=== PATIENT | male | born 1955 | race Two or more races ===

== ENCOUNTER → 2021-05-13 14:12 | Outpatient (BNVA) | payer MEDICARE, OTHER, SELFPAY | PROVIDERS: PCP Internal Medicine Geriatric Medicine; Referring Provider Internal Medicine Geriatric Medicine; Visit Provider Internal Medicine | DX: Z45.018 Encounter for adjustment and management of other part of cardiac pacemaker (principal); I49.8 Other specified cardiac arrhythmias; I10 Essential (primary) hypertension; E11.8 Type 2 diabetes mellitus with unspecified complications | CPT/HCPCS: 93005; 99202 ==

== ENCOUNTER → 2021-07-09 09:28 | Outpatient (REF) | payer MEDICARE, OTHER, SELFPAY ==
--- NOTE | 2021-07-09 09:31 | CA_ITS ---
Transthoracic Echocardiogram Patient (Last, First, Middle): Matthew Toro L Gender: Male Date of : 1955 Age: 66 Procedure Date: 07/09/2021 Procedure Type: Transthoracic Echocardiogram Location: OP Height: 175.26 cm Weight: 68.95 kg BSA: 1.84 m2 Heart Rate: bpm BP: 132 / 80 mmHg Ceo: LOKESH Mclean MD: Glenn Herman MD Anesthesiology Fellow: Rogelio Leggett MD Symptoms: Z95.0 - Presence of cardiac pacemaker Study Quality: Fair ECG Rhythm: Ventriculary paced rhythm Conclusions: - 1. Moderately dilated left ventricle with moderate to severe LV systolic dysfunction with LVEF of 30-35% with impaired relaxation filling pattern 2. Mild mitral regurgitation 3. Normal RV systolic pressure 4. No gross pericardial effusion Findings Left Ventricle Moderately increased left ventricular cavity size. There is mildly increased left ventricular wall thickness. The left ventricular systolic function is moderate to severely decreased. The visually estimated ejection fraction is between 30-35%. Spectral Doppler is indicative of an impaired relaxation filling pattern. E/E prime ratio is between 8 and 15 consistent with indeterminate filling pressures. Right Ventricle Normal right ventricular cavity size and systolic function. There is a pacemaker wire seen in the right ventricle. Atria The left atrium is normal in size. There is no evidence of interatrial shunt. The right atrium is normal in size. Aortic Valve There is mild calcification of the aortic valve. There is no aortic valve stenosis. There is no aortic valve regurgitation. Mitral Valve There is mild anterior and posterior mitral leaflet thickening. There is mild mitral annular calcification. There is mild mitral valve regurgitation. There is no mitral valve stenosis. Pulmonic Valve The pulmonic valve was not well visualized. Tricuspid Valve Likely normal tricuspid valve structure and function. There is trace tricuspid valve regurgitation. The right ventricular systolic pressure is normal. The right ventricular systolic pressure is 19 mmHg. Normal right atrial pressure. There is no evidence of pulmonary hypertension. Great Vessels All visible segments of the aorta are normal in size. The pulmonary artery was not well visualized. Venous The inferior vena cava is normal in size. Inferior vena cava flow is normal. Pericardium/Pleural There is no evidence of pericardial effusion. Prior Study Comparison No prior study available for comparison. Measurements 2D Linear Measurements IVSd: 1.19 0.6-0.9/0.6-1.0 cm LVIDd: 6.24 3.9-5.3/4.2-5.9 cm LVIDd Index: 3.39 2.4-3.2/2.2-3.1 cm/m2 LVIDs: 5.37 2.0-3.6 cm LVPWd: 1.16 0.7-1.1 cm LA Diam: 3.80 2.7-3.8/3.0-4.0 cm LAIDs Index: 2.07 1.5-2.3 cm/m2 LV Mass: 406.50 67-162/88-224 g LV Mass Index: 220.93 43-95/49-115 g/m2 LVOT Diam: 2.40 3.0+(-)1.3 cm 2D Systolic Function EF 4C: 32.60 >55% EF 2C: 36.40 >55% EF BiP: 34.80 >55% Mitral Valve MV Pk E: 0.61 MV PK A: 1.17 MV Decel Time: 127.00 E/A: 0.50 PHT: 37.00 MVA PHT: 5.95 Decel Banks: 4.83 MR Vol - PW Dopp: 96.04 MR VTI: 1.96 MR ERO: 49.00 MR Alias Bipin: 0.64 MR RAD: 0.80 Aortic Valve AoV Pk Bipin: 1.38 AoV Mn Bipin: 0.94 AoV VTI: 0.28 AoV Pk Grad: 8.00 Aov Mn Grad: 4.00 VÍCTOR Cont.VTI: 2.33 LVOT LVOT Pk Bipin: 0.71 LVOT Mn Bipin: 0.47 LVOT VTI: 0.14 LVOT Pk Grad: 2.00 LVOT Mn Grad: 1.00 LVOT Diam: 2.40 LVOT Area: 4.52 Diastolic Function MV Pk E: 0.61 MV Pk A: 1.17 E/A: 0.50 Right Ventricle TAPSE (mm): 16.70 TVS' Bipin: 8.92 Tricuspid Valve TR Pk Bipin: 1.97 TR Pk Grad: 16.00 RA Press: 3.00 RVSP: 19.00 Great Vessels Aorta Sinus of Valsalva: 3.37 2.0-3.[address] Ridge: 3.00 1.7-3.4 cm Ao Asc: 3.20 2.1-3.4 cm Ao Arch: 3.30 Updated in Other Vendor System with Status of Final Rogelio Leggett MD electronically signed on 07/10/2021 5:12:19 PM with status of Final
== END ==
LOC: HO.CARD 09:28
PROVIDERS: PCP Internal Medicine Geriatric Medicine; Visit Provider Internal Medicine
DX: I10 Essential (primary) hypertension (principal); Z95.0 Presence of cardiac pacemaker
CPT/HCPCS: 93306

== ENCOUNTER → 2021-09-09 12:55 | Outpatient (BNVA) | payer MEDICARE, SELFPAY | PROVIDERS: PCP Internal Medicine Geriatric Medicine; Referring Provider Internal Medicine Geriatric Medicine; Visit Provider Internal Medicine | DX: Z45.018 Encounter for adjustment and management of other part of cardiac pacemaker (principal); I49.8 Other specified cardiac arrhythmias; I42.9 Cardiomyopathy, unspecified; I10 Essential (primary) hypertension; E11.8 Type 2 diabetes mellitus with unspecified complications | CPT/HCPCS: 93280; 99212 ==

== ENCOUNTER 2021-10-02 07:52 | Outpatient (REF) | payer MEDICARE, OTHER, SELFPAY ==
[2021-10-02 08:45] LABS: Hematocrit 40.1 % (42.0-52.0); Hemoglobin 13.9 g/dl (14.0-18.0); Mean Corpuscular HGB Conc 34.7 g/dl (31.0-36.0); Mean Corpuscular Hemoglobin 28.7 pg (27.0-33.0); Mean Corpuscular Volume 82.7 fL (80.0-98.0); Mean Platelet Volume 10.4 fL (9.4-12.4); Platelet Count 183 X10*3/uL (160-400); Red Blood Count 4.85 X10*6/uL (4.60-5.80); Red Cell Distribution Width 12.6 % (11.0-16.0); White Blood Count 4.6 X10*3/uL (4.8-10.8)
[2021-10-02 08:48] LABS: Prothrombin Time 11.2 SEC (10.0-13.1)
[2021-10-02 09:03] LABS: Anion Gap 11 (12-20); Blood Urea Nitrogen 13 mg/dL (9-16); Calcium 9.9 mg/dL (8.4-10.2); Carbon Dioxide 28 mmol/L (22-29); Chloride 105 mmol/L (96-108); Estimated Glomerular Filt Rate > 60; Glucose Random 132 mg/dL (60-115); Potassium 4.3 mmol/L (3.3-5.1); Sodium 140 mmol/L (135-145)
== END 2021-10-02 07:53 | disposition home or self-care (01) ==
LOC: HO.LAB 07:52
PROVIDERS: PCP Internal Medicine Geriatric Medicine; Visit Provider Internal Medicine
DX: I42.9 Cardiomyopathy, unspecified (principal); I25.10 Atherosclerotic heart disease of native coronary artery without angina pectoris
CPT/HCPCS: 36415; 80048; 85027; 85610

== ENCOUNTER → 2021-10-31 12:42 | Outpatient (BNVA) | payer MEDICARE, OTHER, SELFPAY | PROVIDERS: PCP Internal Medicine Geriatric Medicine; Referring Provider Internal Medicine Geriatric Medicine; Visit Provider Internal Medicine | DX: I42.9 Cardiomyopathy, unspecified (principal); I25.10 Atherosclerotic heart disease of native coronary artery without angina pectoris; I49.8 Other specified cardiac arrhythmias; E11.8 Type 2 diabetes mellitus with unspecified complications; I10 Essential (primary) hypertension; Z95.0 Presence of cardiac pacemaker | CPT/HCPCS: 99212 ==

== ENCOUNTER → 2022-02-20 13:38 | Outpatient (BNVA) | payer MEDICARE, SELFPAY | PROVIDERS: PCP Internal Medicine Geriatric Medicine; Referring Provider Internal Medicine Geriatric Medicine; Visit Provider Internal Medicine | DX: I25.10 Atherosclerotic heart disease of native coronary artery without angina pectoris (principal); I42.9 Cardiomyopathy, unspecified; I49.8 Other specified cardiac arrhythmias; E11.8 Type 2 diabetes mellitus with unspecified complications; I10 Essential (primary) hypertension; Z95.0 Presence of cardiac pacemaker | CPT/HCPCS: 99212 ==

== ENCOUNTER → 2022-05-12 13:32 | Outpatient (BNVA) | payer MEDICARE, SELFPAY | PROVIDERS: PCP Internal Medicine Geriatric Medicine; Referring Provider Internal Medicine Geriatric Medicine; Visit Provider Internal Medicine | DX: Z45.018 Encounter for adjustment and management of other part of cardiac pacemaker (principal); I42.9 Cardiomyopathy, unspecified; I25.10 Atherosclerotic heart disease of native coronary artery without angina pectoris; I49.8 Other specified cardiac arrhythmias; I10 Essential (primary) hypertension; E11.8 Type 2 diabetes mellitus with unspecified complications | CPT/HCPCS: 99212 ==

== ENCOUNTER 2022-06-27 09:31 | Outpatient (REF) | payer MEDICARE, SELFPAY ==
[2022-06-27 11:11] LABS: B Type Natriuretic Peptide 332 pg/mL (<100)
[2022-06-27 11:19] LABS: Alanine Aminotransferase 24 U/L (0-40); Albumin Level 4.2 g/dL (3.5-5.0); Alkaline Phosphatase 61 U/L (39-117); Anion Gap 14 (12-20); Aspartate Amino Transferase 19 U/L (5-37); Bilirubin Direct 0.3 mg/dL (0.0-0.5); Blood Urea Nitrogen 13 mg/dL (9-16); Calcium 9.4 mg/dL (8.4-10.2); Carbon Dioxide 26 mmol/L (22-29); Chloride 108 mmol/L (96-108); Cholesterol 154 mg/dL; Estimated Glomerular Filt Rate > 60; Glucose Random 141 mg/dL (60-115); HDL Cholesterol 34 mg/dL; LDL Cholesterol Calculated 104 mg/dl; Potassium 4.6 mmol/L (3.3-5.1); Sodium 143 mmol/L (135-145); Total Protein 6.7 g/dL (6.5-8.0); Triglycerides 84 mg/dL
== END 2022-06-27 09:32 | disposition home or self-care (01) ==
LOC: HO.LAB 09:31
PROVIDERS: PCP Internal Medicine Geriatric Medicine; Visit Provider Internal Medicine
DX: I25.10 Atherosclerotic heart disease of native coronary artery without angina pectoris (principal); I42.9 Cardiomyopathy, unspecified
CPT/HCPCS: 36415; 80048; 80061; 80076; 83880

== ENCOUNTER → 2022-08-05 08:39 | Outpatient (REF) | payer MEDICARE, SELFPAY ==
--- NOTE | 2022-08-05 08:42 | CA_ITS ---
Transthoracic Echocardiogram Patient (Last, First, Middle): Matthew Toro L Gender: Male Date of : 1955 Age: 67 Procedure Date: 08/05/2022 Procedure Type: Transthoracic Echocardiogram Location: OP Height: 177.8 cm Weight: 68.04 kg BSA: 1.85 m2 Heart Rate: bpm BP: 130 / 70 mmHg Corncob Pipes Assembler: SB Referring MD: Glenn Herman MD Cisco Administrator: Rogelio Leggett MD Symptoms: I42.9 - Cardiomyopathy, unspecified Study Quality: Adequate ECG Rhythm: Sinus Conclusions: - 1. Moderately dilated left ventricle with severe LV systolic dysfunction with LVEF of 25-30% with increased filling pressures and regional wall motion is suggestive of possible underlying coronary artery disease 2. Mildly dilated left atrium 3. Moderate to severe mitral regurgitation 4. Normal RV systolic pressure 5. No gross pericardial effusion Findings Left Ventricle Moderately increased left ventricular cavity size. There is mildly increased left ventricular wall thickness. The left ventricular systolic function is severely decreased. Spectral Doppler is indicative of an impaired relaxation filling pattern. Elevated filling pressures. E/E prime ratio is >15, consistent with elevated filling pressures. Wall Motion Rest Echo Findings The anterior wall, entire septum, anterolateral wall, the apex, and apical lateral segments are hypokinetic. The inferior wall and inferolateral wall are akinetic. Right Ventricle Normal right ventricular cavity size and systolic function. There is an ICD wire seen in the right ventricle. Atria The left atrium is mildly dilated. There is no evidence of interatrial shunt. The right atrium is likely dilated. Aortic Valve Normal aortic valve structure and function. There is no aortic valve stenosis. There is no aortic valve regurgitation. Mitral Valve There is mild anterior and posterior mitral leaflet thickening. The posterior mitral leaflet has restricted mobility. There is moderate to severe mitral valve regurgitation. There is no mitral valve stenosis. Pulmonic Valve The pulmonic valve is likely normal. Tricuspid Valve Normal tricuspid valve structure. There is mild tricuspid valve regurgitation. The right ventricular systolic pressure is normal. The right ventricular systolic pressure is 25 mmHg. Normal right atrial pressure. There is no evidence of pulmonary hypertension. Great Vessels All visible segments of the aorta are normal in size. The pulmonary artery was not well visualized. Venous The inferior vena cava is normal in size and collapses greater than 50% with inspiration. Pericardium/Pleural There is no evidence of pericardial effusion. Prior Study Comparison Changes noted compared to prior study dated: 07/09/2021. LV systolic function is marginally reduced. Mitral regurgitation appears to be moderately severe, probably related to restricted leaflet mobility Measurements 2D Linear Measurements IVSd: 1.31 0.6-0.9/0.6-1.0 cm LVIDd: 6.80 3.9-5.3/4.2-5.9 cm LVIDd Index: 3.68 2.4-3.2/2.2-3.1 cm/m2 LVIDs: 6.66 2.0-3.6 cm LVPWd: 1.16 0.7-1.1 cm LA Diam: 4.30 2.7-3.8/3.0-4.0 cm LAIDs Index: 2.32 1.5-2.3 cm/m2 LV Mass: 501.45 67-162/88-224 g LV Mass Index: 271.06 43-95/49-115 g/m2 LVOT Diam: 2.40 3.0+(-)1.3 cm 2D Systolic Function EF 4C: 28.60 >55% EF 2C: 25.30 >55% EF BiP: 27.60 >55% Mitral Valve MV Pk E: 1.18 MV PK A: 1.38 MV Decel Time: 158.00 E/A: 0.90 E'Lateral: 5.87 E'Medial: 4.46 E/E' Med: 26.50 E/E' Lat: 20.10 PHT: 46.00 MVA PHT: 4.78 Decel Sutton: 7.45 MR Vol - PW Dopp: 41.79 MR VTI: 1.99 MR ERO: 21.00 MR Alias Bipin: 0.39 MR RAD: 0.70 Aortic Valve AoV Pk Bipin: 1.14 AoV Mn Bipin: 0.90 AoV VTI: 0.24 AoV Pk Grad: 5.00 Aov Mn Grad: 4.00 VÍCTOR Cont.VTI: 2.56 LVOT LVOT Pk Bipin: 0.71 LVOT Mn Bipin: 0.51 LVOT VTI: 0.14 LVOT Pk Grad: 2.00 LVOT Mn Grad: 1.00 LVOT Diam: 2.40 LVOT Area: 4.52 Diastolic Function MV Pk E: 1.18 MV Pk A: 1.38 E/A: 0.90 E'Medial: 4.46 E/E' Med: 26.50 E' Laterial: 5.87 E/E' Lat: 20.10 Right Ventricle TAPSE (mm): 15.80 TVS' Bipin: 7.90 Tricuspid Valve TR Pk Bipin: 2.35 TR Pk Grad: 22.00 RA Press: 3.00 RVSP: 25.00 Great Vessels Aorta Sinus of Valsalva: 3.10 2.0-3.5 cm Ao Asc: 3.20 2.1-3.4 cm Pulmonary Veins Pulm Vein S/D 0.50 Pulmonary Valve PV Pk Bipin: 0.71 Peak PV Grad: 2.00 Updated in Other Vendor System with Status of Final Rogelio Leggett MD electronically signed on 08/06/2022 4:29:43 PM with status of Final
== END ==
LOC: HO.CARD 08:39
PROVIDERS: PCP Internal Medicine Geriatric Medicine; Visit Provider Internal Medicine
DX: I42.9 Cardiomyopathy, unspecified (principal)
CPT/HCPCS: 93306

== ENCOUNTER → 2022-08-21 08:39 | Outpatient (BNVA) | payer MEDICARE, SELFPAY | PROVIDERS: PCP Internal Medicine Geriatric Medicine; Referring Provider Internal Medicine Geriatric Medicine; Visit Provider Internal Medicine | DX: I42.9 Cardiomyopathy, unspecified (principal); I25.10 Atherosclerotic heart disease of native coronary artery without angina pectoris; I34.0 Nonrheumatic mitral (valve) insufficiency; I49.8 Other specified cardiac arrhythmias; E11.8 Type 2 diabetes mellitus with unspecified complications; I10 Essential (primary) hypertension; Z79.82 Long term (current) use of aspirin; Z79.899 Other long term (current) drug therapy; Z79.84 Long term (current) use of oral hypoglycemic drugs | CPT/HCPCS: 93005; 99212 ==

== ENCOUNTER 2023-11-06 09:33 | Outpatient (REF) | payer MEDICARE, SELFPAY ==
[2023-11-06 10:03] LABS: MANUAL DIFF FLAG NO
[2023-11-06 11:05] LABS: Basophils Percent Auto 0.5 % (0-2); Eosinophils Absolute Auto 0.1 X10*3/uL (0.0-0.4); Eosinophils Percent Auto 2.1 % (0-4); Hematocrit 38.5 % (42.0-52.0); Hemoglobin 13.1 g/dl (14.0-18.0); Imm Gran Abs Auto 0.04 X10*3/uL (0.00-0.03); Imm Gran Pct Auto 0.9 % (0.0-0.4); Lymphocytes Absolute Auto 0.8 X10*3/uL (1.2-4.9); Lymphocytes Percent Auto 17.8 % (20-40); Mean Corpuscular Hemoglobin 29.6 pg (27.0-33.0); Mean Corpuscular Volume 86.9 fL (80.0-98.0); Monocytes Absolute Auto 0.6 X10*3/uL (0.1-1.2); Monocytes Percent Auto 12.8 % (2-11); Neutrophils Absolute Auto 2.9 x10*3/uL (2.0-8.3); Neutrophils Percent Auto 65.9 % (45-73); Red Blood Count 4.43 X10*6/uL (4.60-5.80); White Blood Count 4.4 X10*3/uL (4.8-10.8)
[2023-11-06 11:06] LABS: INTERNATIONAL NORM RATIO 1.2 (0.9-1.1)
[2023-11-06 11:08] LABS: Partial Thromboplastin Time 29.2 SEC (26.0-36.8)
[2023-11-06 11:27] LABS: Estimated Average Glucose 177 mg/dL; Hemoglobin A1c % 7.8 % (<6.0)
[2023-11-06 11:28] LABS: Mean Platelet Volume 10.8 fL (9.4-12.4); Platelet Count 134 X10*3/uL (160-400)
[2023-11-06 12:01] LABS: Alanine Aminotransferase 75 U/L (0-40); Albumin Level 3.9 g/dL (3.5-5.0); Alkaline Phosphatase 99 U/L (39-117); Anion Gap 12 (12-20); Aspartate Amino Transferase 59 U/L (5-37); Bilirubin Total 0.9 mg/dL (0.0-1.0); Blood Urea Nitrogen 19 mg/dL (9-16); Calcium 9.9 mg/dL (8.4-10.2); Carbon Dioxide 29 mmol/L (22-29); Chloride 107 mmol/L (96-108); Estimated Glomerular Filt Rate 59; Glucose Random 131 mg/dL (60-115); Iron 66 mcg/dL (45-160); Percent Iron Saturation 21 % (15-50); Potassium 3.9 mmol/L (3.3-5.1); Sodium 144 mmol/L (135-145); Total Iron Binding Capacity 317 mcg/dL (228-428); Total Protein 6.7 g/dL (6.5-8.0); Unsaturated Iron Binding 251 ug/dL
[2023-11-06 12:07] LABS: Ferritin 53 ng/mL (20-250); Thyroid Stimulating Hormone 4.42 uIU/mL (0.32-4.0)
== END 2023-11-06 09:34 | disposition home or self-care (01) ==
LOC: HO.LAB 09:33
PROVIDERS: PCP Internal Medicine Geriatric Medicine; Visit Provider Emergency Medicine
DX: I50.22 Chronic systolic (congestive) heart failure (principal); Z13.1 Encounter for screening for diabetes mellitus
CPT/HCPCS: 36415; 80053; 82728; 83036; 83540; 84443; 85025; 85610; 85730

== ENCOUNTER 2023-11-09 14:46 | Outpatient (AMB) | payer MEDICARE, SELFPAY ==
[2023-11-09 15:21] VITALS: BP 90/54; PULSE 60; BMI 20.3
--- NOTE | 2023-11-09 15:21 | A.OFFVIS_ITS ---
Vital Signs 11/09/23 15:21 Height 5 ft 7 in Weight 129 lb 10.109 oz BMI 20.3 BP 90/54 L Blood Pressure Location Lt brachial Position Sitting Pulse 60 Intake Visit Reasons: 1 year fu/ severe cmp/ card arrest SC- defib /Name Tinner Automatic Required: Yes Tinner Automatic Name: Fernando [id number] Accompanied by: Spouse Allergies No Known Allergies [No Known Allergies*] Allergy (Verified 08/21/22 08:44) Medication List - Last Reconciled 11/09/23 by Glenn Herman MD amiodarone 400 mg PO Q24H apixaban (Eliquis) 5 mg PO BID aspirin 81 mg PO DAILY atorvastatin 80 mg PO QPM blood sugar diagnostic (FreeStyle Lite Strips) As directed empagliflozin (Jardiance) 10 mg PO QAM ezetimibe (Zetia) 10 mg PO DAILY insulin glargine 6 units subcut DAILY insulin lispro (Admelog U-100 Insulin lispro) 6 units subcut BID lancets (TRUEplus Lancets) As directed metoprolol succinate ER (Toprol XL) 25 mg PO DAILY mexiletine 150 mg PO Q12H spironolactone 12.5 mg PO DAILY torsemide 20 mg PO DAILY HPI Comments Details: Matthew returns for follow-up after quite some time. To recall, he used to live in [place] where he developed heart block and underwent permanent pacemaker implantation. Then he moved here for some time. At that time, echocardiogram had shown significant LV dysfunction and diagnostic catheterization showed LAD disease but not requiring interventions. Then we upgraded the dual-chamber device to Bi V pacer. He was doing well and walking more than 2 miles a day with no issues. After that, it seems he went back to [facility] and based on the notes he has had a fairly complicated set of issues. I have summarized them briefly- He apparently had PEA arrest in September of 2022 and underwent tracheostomy and ultimately transferred to LTAC. He had severe heart failure with reduced ejection fraction as well as severe mitral regurgitation. Underwent mitral clip in 05/2023. It seems that the mitral regurgitation severity was reduced from severe to mild. After that, it seems as though he was followed up at the advanced heart failure Clinic in [place], [place] where he was recommended to undergo advanced therapies including evaluation for LVAD as well as transplant. From arrhythmia standpoint, atrial fibrillation/flutter for which underwent cardioversion May of 2023. Other issues include upgrade of FORESTRY ENGINEER P to FORESTRY ENGINEER D. From the arrhythmia standpoint, ventricular tachycardia for which she has been given a combination of amiodarone, mexiletine and metoprolol. 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 Since returned back to [place], states that patient is still not feeling great. He gets tired frequently. He can walk only short distances without getting symptoms like shortness of breath or feeling exhausted. No clear chest pains. Most recently, it seems he was hospitalized again at [facility] with syncope. At that time, diagnosed ventricular tachycardia and AICD firing. It seems the increased amiodarone dose to 400 mg daily and recommended continuing mexiletine and metoprolol. Patient states that he would like to consolidate his care rather in [place] and asking for referral there. [facility] Medical History (Updated 11/09/23 @ 16:35 by Glenn Herman MD) Diabetes Pacemaker Surgical History History of cardiac catheterization (~10/2021) History of cataract surgery Family History Father Diabetes Heart problem Brother Heart attack Social History Alcohol intake: never Patient Tobacco Use Status: Never used Tobacco Review of Systems Const Denies chills, Denies fatigue, Denies fever(s), Denies weight gain and Denies weight loss ENT Denies dizziness Card Denies chest pain, Denies leg edema, Denies lightheadedness, Denies palpitations, Reports dyspnea on exertion, Denies orthopnea and Denies other Resp Denies cough and Reports dyspnea on exertion GI Denies hematochezia and Denies change in stool character Musc Denies abnormal gait, Denies muscle weakness, Denies numbness, Denies radiating pain into limb and Denies tingling Neuro Denies abnormal gait, Denies dizziness, Denies numbness and Denies tingling Endo Denies fatigue and Denies palpitations Physical Exam Vital Signs: Last Vital Signs Pulse 60 11/09/23 15:21 BP 90/54 L 11/09/23 15:21 BMI result Body Mass Index 20.3 Const General: comfortable and no acute distress Orientation/consciousness: patient oriented x3 HEENT Other: Unremarkable Head: Yes normal to inspection Neck Neck: Yes normal visual inspection Chest Chest palpation & inspection: normal inspection of the chest Resp Auscultation: clear to auscultation bilaterally Cardio Palpation: normal PMI Heart sounds: S1 normal heart sound present, S2 normal heart sound present, no gallops, Murmur heart sound present systolic III/ and at the apex and no rubs GI Palpation (GI): Soft to palpation Back/Spine/Pelvis Other: unremarkable Skin General skin exam: no rashes or lesions noted Neuro General: patient oriented x3 Extrem General: Yes normal to inspection Psych Mental Status: mental status grossly normal Office Procedures Cardiac Device Check Cardiac Device Check Details: ICD interrogated today. FORESTRY ENGINEER D device. Battery status more than 4 years. Normal lead parameters. Atrial pacing 98%. Biventricular pacing > 99%. No atrial arrhythmias. No recent shocks or therapies. It appears that he did have ventricular tachycardia on October 19. Overall, normal device function. 51749-[id number] Cardiac Device Check, multi lead implantable defibrillator Procedure code (CPT) selection complete EKG Details: EKG with underlying atrial sensed, ventricular paced rhythm at 60/Min. Corrected QT is 566 milliseconds but QRS is also wide because of paced rhythm. Hence suspect the actual corrected QT is shorter. [id number], Complete Assessment & Plan Assessment & Plan (1) Cardiomyopathy: Code(s): I42.9 - Cardiomyopathy, unspecified Category: Medical Plan: Per echocardiogram from [place], 06/24/2023, LVEF less than 20%. Severely dilated LV. Moderate mitral regurgitation status post mitral clip. Moderate tricuspid regurgitation and mild pulmonary hypertension. It seems that he does still have ongoing heart failure symptoms although clinically does not appear overtly volume overloaded. For meds, he is only on metoprolol and spironolactone. Not on Entresto but his blood pressure is already quite low. On Jardiance. For diuretics, discharge summary list torsemide 20 mg daily but not in the current list. Will call pharmacy. It seems that he was recommended to undergo evaluation for advanced therapies including LVAD and transplant and they would like to go to [place] and hence we will refer. In terms of other workup, left heart catheterization 2022 showed [id number] nonobstructive disease. Not make any further changes today as I believe we need to consolidate his care locally 1st before making too many changes. (2) Atherosclerotic cardiovascular disease: Code(s): I25.10 - Atherosclerotic heart disease of [place] coronary artery without angina pectoris Category: Medical Plan: Per available data, [id number] nonobstructive disease from cardiac catheterization [place] 2022. No specific management apart from statins. (3) Nonrheumatic mitral valve regurgitation: Code(s): I34.0 - Nonrheumatic mitral (valve) insufficiency Category: Medical Plan: Status post mitral clip. We will check echocardiogram. (4) Paroxysmal atrial fibrillation: Code(s): I48.0 - Paroxysmal atrial fibrillation Category: Medical Plan: Status post cardioversion. On amiodarone. Anticoagulation. Will need to check with pharmacy as meds are not clearly reconciled. (5) Ventricular tachycardia: Code(s): I47.20 - Ventricular tachycardia, unspecified Category: Medical Plan: Per notes from [place], patient had VT which was refractory to ATP x3, received ICD shock x1, degenerated into VF, 2nd ICD shock successfully terminating the arrhythmia and also converting him out of AFib. It appears there was 1 further episode of VT for which she was hospitalized last month at [facility]. Most recently, amiodarone dose has been increased at [facility] from 200 mg to 400 mg. He is also on mexiletine and metoprolol. Requires EP referral. Plan Referred to [facility]-advanced heart failure team as well as EP. Total time spent including review of all the available records from [place], counseling, documentation, coordination of care-90 minutes. Orders: Orders CA echo transthoracic complete Today I34.0 - Nonrheumatic mitral (valve) insufficiency Coding Level of Care Code Est Pt Level 5 (23257) Diagnoses Cardiomyopathy I42.9 Atherosclerotic cardiovascular disease I25.10 Nonrheumatic mitral valve regurgitation I34.0 Paroxysmal atrial fibrillation I48.0 Ventricular tachycardia I47.20 CPT Codes Cardiac Device Check - Cardiac Device 6: [id number] Cardiac Device Check, multi lead implantable defibrillator ([id number]) EKG - CPT: 79325-[id number], Complete ([id number])
== END 2023-11-09 16:16 | disposition home or self-care (01) ==
PROVIDERS: PCP Internal Medicine Geriatric Medicine; Referring Provider Internal Medicine Geriatric Medicine; Visit Provider Internal Medicine
DX: I42.9 Cardiomyopathy, unspecified (principal); I25.10 Atherosclerotic heart disease of native coronary artery without angina pectoris; I34.0 Nonrheumatic mitral (valve) insufficiency; I48.0 Paroxysmal atrial fibrillation; I47.20 Ventricular tachycardia, unspecified; Z95.810 Presence of automatic (implantable) cardiac defibrillator
CPT/HCPCS: 93284; 99215

== ENCOUNTER → 2023-11-09 14:46 | Outpatient (BNVA) | payer MEDICARE, SELFPAY | PROVIDERS: PCP Internal Medicine Geriatric Medicine; Visit Provider Internal Medicine | DX: I42.9 Cardiomyopathy, unspecified (principal); I25.10 Atherosclerotic heart disease of native coronary artery without angina pectoris; I34.0 Nonrheumatic mitral (valve) insufficiency; I48.0 Paroxysmal atrial fibrillation; I47.20 Ventricular tachycardia, unspecified; Z45.02 Encounter for adjustment and management of automatic implantable cardiac defibrillator | CPT/HCPCS: 99212 ==

== ENCOUNTER 2023-11-17 10:49 | Outpatient (REF) | payer MEDICARE, SELFPAY ==
[2023-11-17 14:24] LABS: Alanine Aminotransferase 147 U/L (0-40); Alkaline Phosphatase 142 U/L (39-117); Anion Gap 13 (12-20); Aspartate Amino Transferase 59 U/L (5-37); Bilirubin Total 1.1 mg/dL (0.0-1.0); Blood Urea Nitrogen 13 mg/dL (9-16); Calcium 9.9 mg/dL (8.4-10.2); Carbon Dioxide 28 mmol/L (22-29); Chloride 108 mmol/L (96-108); Estimated Glomerular Filt Rate 47; Glucose Random 152 mg/dL (60-115); Magnesium 2.3 mg/dL (1.6-2.6); Potassium 4.8 mmol/L (3.3-5.1); Sodium 144 mmol/L (135-145); TSH reflex Free T4 4.84 uIU/mL (0.32-4.0); Total Protein 7.1 g/dL (6.5-8.0)
[2023-11-17 17:58] LABS: Free T4 (Free Thyroxine) 1.08 ng/dL (0.71-1.85)
== END 2023-11-17 10:50 | disposition home or self-care (01) ==
LOC: HO.LAB 10:49
PROVIDERS: PCP Internal Medicine Geriatric Medicine; Visit Provider Internal Medicine Geriatric Medicine
DX: E11.59 Type 2 diabetes mellitus with other circulatory complications (principal); I42.9 Cardiomyopathy, unspecified; Z86.79 Personal history of other diseases of the circulatory system; Z79.899 Other long term (current) drug therapy
CPT/HCPCS: 36415; 80053; 83735; 84439; 84443

== ENCOUNTER 2024-02-24 14:57 | Outpatient (AMB) | payer MEDICARE, SELFPAY ==
--- NOTE | 2024-02-24 15:18 | A.OFFVIS_ITS ---
Vital Signs 02/24/24 15:25 Height 5 ft 7 in Weight 125 lb 10.616 oz BMI 19.7 BP 116/78 Blood Pressure Location Rt brachial Position Sitting Pulse 99 Pulse Source Pulse Oximeter Intake Visit Reasons: T2DM Intake Note: NEW Patient presents today to establish treatment for Type 2 Diabetes Mellitus: Last Diabetic eye exam was on: DUE Last Podiatry exam was on: Does not see a System Archive Analyst Most recent HbA1c: 6.4%, 02/24/2024 Random Glucose- 433 mg/dL, Today Rollout Manager Required: No Accompanied by: Self / Same As Patient Allergies No Known Allergies [No Known Allergies*] Allergy (Verified 02/24/24 15:19) HPI Comments Details: 68-year-old male presenting for diabetic consultation Medical history: 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 On prednisone taper-currently 15mg daily PCP: Yoandy Tillman MD Diagnosed Current medications: admelog, glargine Glucometer: One touch Seen by PCP 02/05/2024. He is currently on 09/16/11 admelog and glargine 25 units. A1C is 6.4%. His glucose monitor was reviewed today and revealed card lacer hypoglycemia until 02/14/2024 after which he has not had any episodes. He is checking 3-4 times per day. average blood glucose is 140. Since 02/13 range is 76-330 Eye exam-due. requests referral Podiatry-does not see ROS CONSTITUTIONAL: Denies weight loss, fever and chills. HEENT: Denies changes in vision and hearing. RESPIRATORY: Denies SOB and cough. CV: Denies palpitations and CP GI: Denies abdominal pain, nausea, vomiting and diarrhea. : Denies dysuria and urinary frequency. MSK: Denies new myalgia and joint pain. SKIN: Denies rash and pruritus. NEUROLOGICAL: Denies headache PSYCHIATRIC: Denies recent changes in mood. PHYSICAL EXAM: GENERAL: Alert and oriented x 3. NAD EYES: EOMI. Anicteric. HENT: Moist mucous membranes. No scleral icterus. No cervical lymphadenopathy. LUNGS: Clear to auscultation bilaterally. CARDIOVASCULAR: Regular rate and rhythm. No murmur. No JVD. ABDOMEN: Soft, non-tender +bs EXTREMITIES: No edema. Non-tender. SKIN: No rashes or lesions. Warm. NEUROLOGIC: No focal neurological deficits. CN II-XII grossly intact PSYCHIATRIC: Cooperative. Appropriate mood and affect [facility] Medical History Diabetes Pacemaker Surgical History Hx of heart transplant History of cardiac catheterization (~10/2021) History of cataract surgery Family History Father Diabetes Heart problem Brother Heart attack Social History Alcohol intake: never Patient Tobacco Use Status: Never used Tobacco Physical Exam Vital Signs: Last Vital Signs Pulse 99 02/24/24 15:25 BP 116/78 02/24/24 15:25 BMI result Body Mass Index 19.7 Results AMB Hemoglobin A1c AMB Hemoglobin A1c 6.4 % Last Edit by TOMMIE Silverman on 02/24/24 15:52 Results Reviewed Results Reviewed: Laboratory Last Values Glucose (Clinic) 433 mg/dL (60-115) H* 02/24/24 15:36 Hgb A1c (Clinic) 6.4 % (4.0-6.0) H 02/24/24 15:21 Assessment & Plan Assessment & Plan (1) Type 2 diabetes mellitus with unspecified complications: Code(s): E11.8 - Type 2 diabetes mellitus with unspecified complications Category: Medical Plan: Controlled on current medication. Decrease supper admelog to 9 units. Continue current glargine dose. 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
[2024-02-24 15:25] VITALS: BP 116/78; PULSE 99; BMI 19.7
[2024-02-24 15:41] LABS: Glucose, Whole Blood 433 mg/dL (60-115)
== END 2024-02-24 16:02 | disposition home or self-care (01) ==
PROVIDERS: PCP Internal Medicine Geriatric Medicine; Visit Provider Internal Medicine
DX: E11.59 Type 2 diabetes mellitus with other circulatory complications (principal); D86.85 Sarcoid myocarditis

== ENCOUNTER → 2024-02-24 14:57 | Outpatient (BNVA) | payer MEDICARE, SELFPAY | PROVIDERS: PCP Internal Medicine Geriatric Medicine; Visit Provider Internal Medicine | DX: E11.9 Type 2 diabetes mellitus without complications (principal); I42.9 Cardiomyopathy, unspecified; D86.85 Sarcoid myocarditis | CPT/HCPCS: 82947; 83036; 99212 ==

== ENCOUNTER 2024-04-14 11:02 | Outpatient (REF) | payer MEDICARE, BC, SELFPAY ==
--- OUTSIDE RECORDS SUMMARY | 2024-04-14 11:42 | XMS_ITS | Clinical Summary ---
Author Organization Unknown Care Team Providers Care Machine Operator Farmworker Name Role Phone DIANA LUGO, FERMIN Unavailable Unavailable SAMUEL RN, CRISTY Unavailable Unavaildonald TABARES PLASTER TENDER, JYOTI Unavailable Unavailable UMA OT, DINO Unavailable Unavailable UMA FERMENTOLOGIST, PARDEEP Unavailable Unavailable MARSHA GILLETTE/HAMM, ALYCIA Unavailable Unavailab fredis COLE PT, KEYANNA Unavailable Unavailable Payers Payer Name Policy Type Policy Number Effective Date Expira tion Date [id number].[facility]AUTH [id number] Problems Condition Name Condition Details Condition Category Status Onset Date Resolution Date Last Treatment Date Treating Clinician Comments PNEUMONIA DUE TO OTHER STREPTOCOCCI Active 2022-04 00:00: 00 NON-ST ELEVATION (NSTEMI) MYOCARDIAL INFARCTION Active 2022-04 00:00: 00 HYPERTENSIVE HEART DISEASE WITH HEART FAILURE Active 2022-04 00:00: 00 CHRONIC COMBINED SYSTOLIC AND DIASTOLIC HRT FAIL Active 2022-04 00:00: 00 TYPE 2 DIABETES MELLITUS WITH HYPERGLYCEMI A Active 2022-04 00:00: 00 URINARY TRACT INFECTION, SITE NOT SPECIFIED Active 2022-04 00:00: 00 KLEBSIELLA PNEUMONIAE THE CAUSE OF DISEASES CLASSD ELSWHR Active 2022-04 00:00: 00 ATHSCL HEART DISEASE OF [place] CORONARY ARTERY W/O ANG PCTRS Active 2022-04 00:00: 00 UNSP DEMENTIA, UNSP SEVERITY, WITHOUT BEH/PSYCH/MO OD/ANX Active 04-06 00:00: 00 VENTRICULAR TACHYCARDIA, UNSPECIFIED Active 04-06 00:00: 00 UNSPECIFIED ATRIAL FLUTTER Active 2022-04 00:00: 00 OTHER SPECIFIED DISEASES OF UPPER RESPIRATORY TRACT Active 04-06 00:00: 00 DYSPHAGIA, OROPHARYNGEA L PHASE Active 2022-04 00:00: 00 HYPERLIPIDEM IA, UNSPECIFIED Active 04-06 00:00: 00 CORRECTION (CURRENT) USE OF INSULIN Active 04-06 00:00: 00 PRESENCE OF AUTOMATIC (IMPLANTABLE ) CARDIAC DEFIBRILLATO R Active 04-06 00:00: 00 CORRECTION (CURRENT) USE OF ANTICOAGULAN TS Active 04-06 00:00: 00 NOC ENGINEER (CURRENT) USE OF ORAL HYPOGLYCEMIC DRUGS Active 04-06 00:00: 00 Allergies, Adverse Reactions, Alerts Allergy Name Allergy Type Status Severity Reaction(s) Onset Date Inactive Date Treating Clinician Comments NO KNOWN ALLERGIES Propensity to adverse reactions Active 2022-04 11:17: 27 Medications Ordered Medication Name Filled Medication Name Start Date Stop Date Current Medication? Ordering Clinician Indication Dosage Frequency Signature (SIG) Comments Components cefdinir 300 mg capsule 2022-04 00:00: 00 Yes [id number] . 300 mg 2 TIMES DAILY 300 mg 2 TIMES DAILY (route: oral) Med Classific ation: Anti-Infe ctive Agents metoprolol succinate ER 50 mg tablet,exte nded release 24 hr 2022-04 00:00: 00 Yes [id number] . 25 mg BEDTIME 25 mg BEDTIME (route: oral) Med Classific ation: Cardiovas cular Therapy Agents spironolact one 25 mg tablet 2022-04 00:00: 00 Yes [id number] . 1 tablet ONCE DAILY 1 tablet ONCE DAILY (route: oral) Med Classific ation: Cardiovas cular Therapy Agents torsemide 20 mg tablet 2022-04 00:00: 00 Yes [id number] . 20 mg ONCE DAILY 20 mg ON CE DAILY (route: oral) Med Classific ation: Cardiovas cular Therapy Agents furosemide 40 mg tablet 2022-04 00:00: 00 02-08 00:00 :00 No [id number] Per instruc tions Per instructio ns (route: oral) Med Classific ation: Cardiovas cular Therapy Agents Semglee (insulin glargine-yf gn) 100 unit/mL subcutaneou s solution 2022-04 016 00:00: 00 02-08 00:00 :00 No [id number] Per instruc tions Per instructio ns (route: [facility]) Med Classific ation: Endocrine atorvastati n 40 mg tablet 2022-04 00:00: 00 Yes [id number] , 1 tablet BEDTIME 1 tablet BEDTIME (route: oral) Med Classific ation: Cardiovas cular Therapy Agents Eliquis 5 mg tablet 2022-04 00:00: 00 Yes [id number] . Per instruc tions TWICE DAILY Per instructio ns TWICE DAILY (route: oral) Med Classific ation: Hematolog ical Agents Jardiance 10 mg tablet 2022-04 00:00: 00 Yes [id number] . 10 mg ONCE DAILY 10 mg ON CE DAILY (route: oral) Med Classific ation: Endocrine losartan 25 mg tablet 2022-04 00:00: 00 Yes [id number] . Per instruc tions ONCE DAILY Per instructio ns ONCE DAILY (route: oral) Med Classific ation: Cardiovas cular Therapy Agents metoprolol succinate ER 25 mg tablet,exte nded release 24 hr 2022-04 00:00: 00 02-08 00:00 :00 No [id number] Per instruc tions ONCE DAILY Per instructio ns ONCE DAILY (route: oral) Med Classific ation: Cardiovas cular Therapy Agents aspirin 81 mg chewable tablet 2022-04 00:00: 00 Yes [id number] . 1 tablet DAILY 1 tablet DAILY (route: oral) Med Classific ation: Hematolog ical Agents insulin glargine (U-100) 100 unit/mL subcutaneou s solution 2022-04 00:00: 00 Yes [id number] . 8 unit BEFORE DINNER 8 unit BEFORE DINNER (route: [facility]) Med Classific ation: Endocrine mexiletine 150 mg capsule 2022-04 00:00: 00 Yes [id number] . 1 capsule 3 TIMES DAILY 1 capsule 3 TIMES DAILY (route: oral) Med Classific ation: Cardiovas cular Therapy Agents Mucinex 600 mg tablet, extended release 2022-04 00:00: 00 Yes [id number] . 1 tablet 2 TIMES DAILY 1 tablet 2 TIMES DAILY (route: oral) Med Classific ation: Respirato ry Therapy Agents Vital Signs Vital Name Observation Time Observation Value Commen ts Temperature 2023-02-08 11:01:00.000 98 [degF] BMI (%) 2023-02-08 10:50:00.000 15 kg/m2 Height 2023-02-08 10:49:47.000 71 [in_us] Pulse 2023-02-08 11:01:00.000 80 /min O2 Saturation (%) 2023-02-08 11:01:00.000 95 % Respirations 2023-02-08 11:01:00.000 18 /min Weight (lbs) 2023-02-08 10:50:00.000 111 [lb_av] Systolic Blood Pressure 2023-02-08 11:01:00.000 125 mm [Hg] Diastolic Blood Pressure 2023-02-08 11:01:00.000 77 mm [Hg] Plan of Treatment Planned Activity Planned Date Details Comments Future Scheduled Test RN TO OBSE RVE, ASSESS, EVALUATE, AND DEVELOP AN INDIVIDUALIZED PLAN OF CARE. AGENCY MAY ACCEPT ORDERS FROM CONSULTING PHYSICIANS RN TO OBSERVE AND ASSESS, PLASTER TENDER TO OBSERVE FOR RISK FOR FALLS AND INSTRUCT IN FALL PREVENTION, HOME SAFETY, MEDICATION MANAGEMENT, INFECTION PREVENTION, AND NUTRITION MANAGEMENT. SN MAY PERFORM O2 SATURATION LEVEL ON ADMISSION AND PRN FOR SOB TO ASSESS PATIENT, WITH NOTIFICATION TO THE PHYSICIAN IF SATURATION IS 90% IN THE ABSENCE OF MORE SPECIFIC PARAMETERS FROM THE PHYSICIAN. AGENCY MAY PERFORM A RESUMPTION OF CARE VISIT FOLLOWING ANY HOSPITAL ADMISSION. SKILLED NURSE TO MONITOR CO-MORBID CONDITIONS LISTED ON THE PLAN OF CARE AND ANY NEW CONDITIONS THAT PRESENT THEMSELVES DURING THIS EPISODE TO IDENTIFY CHANGES AND INTERVENE TO MINIMIZE COMPLICATIONS. [code = RN TO OBSERVE, ASSESS, EVALUATE, AND DEVELOP AN INDIVIDUALIZED PLAN OF CARE. AGENCY MAY ACCEPT ORDERS FROM CONSULTING PHYSICIANS RN TO OBSERVE AND ASSESS, PLASTER TENDER TO OBSERVE FOR RISK FOR FALLS AND INSTRUCT IN FALL PREVENTION, HOME SAFETY, MEDICATION MANAGEMENT, INFECTION PREVENTION, AND NUTRITION MANAGEMENT. SN MAY PERFORM O2 SATURATION LEVEL ON ADMISSION AND PRN FOR SOB TO ASSESS PATIENT, WITH NOTIFICATION TO THE PHYSICIAN IF SATURATION IS 90% IN THE ABSENCE OF MORE SPECIFIC PARAMETERS FROM THE PHYSICIAN. AGENCY MAY PERFORM A RESUMPTION OF CARE VISIT FOLLOWING ANY HOSPITAL ADMISSION. SKILLED NURSE TO MONITOR CO-MORBID CONDITIONS LISTED ON THE PLAN OF CARE AND ANY NEW CONDITIONS THAT PRESENT THEMSELVES DURING THIS EPISODE TO IDENTIFY CHANGES AND INTERVENE TO MINIMIZE COMPLICATIONS.] Future Scheduled Test MEDICATION MANAGEMENT; SKILLED NURSE TO REVIEW MEDICATIONS FOR INTERACTIONS, EFFECTIVENESS OF DRUG THERAPY, AND SIGNS/SYMPTOMS OF ADVERSE REACTIONS. MAY INSTRUCT AND REINFORCE MEDICATION TEACHING RELATED TO THE USE OF MEDICATIONS, DOSAGE, FREQUENCY, PURPOSE, SIDE EFFECTS, AND TO REPORT COMPLICATIONS. [code = MEDICATION MANAGEMENT; SKILLED NURSE TO REVIEW MEDICATIONS FOR INTERACTIONS, EFFECTIVENESS OF DRUG THERAPY, AND SIGNS/SYMPTOMS OF ADVERSE REACTIONS. MAY INSTRUCT AND REINFORCE MEDICATION TEACHING RELATED TO THE USE OF MEDICATIONS, DOSAGE, FREQUENCY, PURPOSE, SIDE EFFECTS, AND TO REPORT COMPLICATIONS. ] Future Scheduled Test RISK FOR H OSPITALIZATION; SKILLED NURSE TO INSTRUCT PATIENT/CAREGIVER ON RISK FOR HOSPITALIZATION/EMERGENCY ROOM VISITS, TEACH SIGNS AND SYMPTOMS THAT PUT PATIENT AT RISK, WHEN TO NOTIFY NURSE/PHYSICIAN OF COMPLICATIONS/DECLINE, AND WHEN TO CALL 911. [code = RISK FOR HOSPITALIZATION; SKILLED NURSE TO INSTRUCT PATIENT/CAREGIVER ON RISK FOR HOSPITALIZATION/EMERGENCY ROOM VISITS, TEACH SIGNS AND SYMPTOMS THAT PUT PATIENT AT RISK, WHEN TO NOTIFY NURSE/PHYSICIAN OF COMPLICATIONS/DECLINE, AND WHEN TO CALL 911.] Future Scheduled Test CARDIOVASC ULAR SYSTEM; SKILLED NURSE TO ASSESS AND TEACH RELATED TO ALTERED CARDIOVASCULAR STATUS TO MINIMIZE COMPLICATIONS AND REDUCE HOSPITALIZATION. [code = CARDIOVASCULAR SYSTEM; SKILLED NURSE TO ASSESS AND TEACH RELATED TO ALTERED CARDIOVASCULAR STATUS TO MINIMIZE COMPLICATIONS AND REDUCE HOSPITALIZATION.] Future Scheduled Test HEART FAIL URE; SKILLED NURSE TO ASSESS CARDIOPULMONARY SYSTEM TO IDENTIFY SIGNS OF DECOMPENSATION AND INTERVENE TO MINIMIZE THE SEVERITY OF FLUID OVERLOAD. ASSESS PATIENT ABILITY TO MONITOR AND RECORD DAILY WEIGHTS AND VITAL SIGNS, INCLUDING PULSE AND BLOOD PRESSURE; RECORD PATIENT REPORTED WEIGHT, OR WEIGH PATIENT NEEDED. REPORT INCREASED EDEMA OR WEIGHT GAIN OF >2 LBS IN 1 DAY OR >5 LBS IN 1 WEEK OR 5LBS OR MORE OVER TARGET WEIGHT. MAY MEASURE ABDOMINAL GIRTH IF UNABLE TO WEIGH. SCALES AND BP MONITOR TO BE PROVIDED IF NEEDED. [code = HEART FAILURE; SKILLED NURSE TO ASSESS CARDIOPULMONARY SYSTEM TO IDENTIFY SIGNS OF DECOMPENSATION AND INTERVENE TO MINIMIZE THE SEVERITY OF FLUID OVERLOAD. ASSESS PATIENT ABILITY TO MONITOR AND RECORD DAILY WEIGHTS AND VITAL SIGNS, INCLUDING PULSE AND BLOOD PRESSURE; RECORD PATIENT REPORTED WEIGHT, OR WEIGH PATIENT NEEDED. REPORT INCREASED EDEMA OR WEIGHT GAIN OF >2 LBS IN 1 DAY OR >5 LBS IN 1 WEEK OR 5LBS OR MORE OVER TARGET WEIGHT. MAY MEASURE ABDOMINAL GIRTH IF UNABLE TO WEIGH. SCALES AND BP MONITOR TO BE PROVIDED IF NEEDED.] Future Scheduled Test ACUTE MYOC ARDIAL INFARCT; SKILLED NURSE TO ASSESS/TEACH WARNING SIGNS AND SYMPTOMS TO AVOID HOSPITALIZATION. [code = ACUTE MYOCARDIAL INFARCT; SKILLED NURSE TO ASSESS/TEACH WARNING SIGNS AND SYMPTOMS TO AVOID HOSPITALIZATION.] Future Scheduled Test PACEMAKER MANAGEMENT; SKILLED NURSE TO PROVIDE SKILLED TEACHING AND ASSIST WITH MANAGEMENT OF PACEMAKER. [code = PACEMAKER MANAGEMENT; SKILLED NURSE TO PROVIDE SKILLED TEACHING AND ASSIST WITH MANAGEMENT OF PACEMAKER.] Future Scheduled Test RESPIRATOR Y SYSTEM MANAGEMENT; SKILLED NURSE TO ASSESS AND TEACH RELATED TO ALTERED RESPIRATORY STATUS TO MINIMIZE COMPLICATIONS AND REDUCE HOSPITALIZATION. [code = RESPIRATORY SYSTEM MANAGEMENT; SKILLED NURSE TO ASSESS AND TEACH RELATED TO ALTERED RESPIRATORY STATUS TO MINIMIZE COMPLICATIONS AND REDUCE HOSPITALIZATION.] Future Scheduled Test PNEUMONIA MANAGEMENT; SKILLED NURSE TO ASSESS AND TEACH SIGNS OF PNEUMONIA EXACERBATION AND PROVIDE EARLY INTERVENTIONS TO MINIMIZE RISK OF HOSPITALIZATION. [code = PNEUMONIA MANAGEMENT; SKILLED NURSE TO ASSESS AND TEACH SIGNS OF PNEUMONIA EXACERBATION AND PROVIDE EARLY INTERVENTIONS TO MINIMIZE RISK OF HOSPITALIZATION.] Future Scheduled Test PAIN MANAG EMENT; SKILLED NURSE TO OBSERVE, ASSESS, AND PROVIDE EDUCATION ON PAIN MANAGEMENT TECHNIQUES. [code = PAIN MANAGEMENT; SKILLED NURSE TO OBSERVE, ASSESS, AND PROVIDE EDUCATION ON PAIN MANAGEMENT TECHNIQUES.] Future Scheduled Test SKIN INTEG RITY - SN OBSERVE AND ASSESS INTEGUMENTARY STATUS TO IDENTIFY CHANGES AND INTERVENE TO MINIMIZE COMPLICATIONS. PROVIDE SKILLED TEACHING OF GENERAL WOUND AND SKIN CARE AND PREVENTION RELATED TO POTENTIAL FOR OR ACTUAL ALTERED SKIN INTEGRITY [code = SKIN INTEGRITY - SN OBSERVE AND ASSESS INTEGUMENTARY STATUS TO IDENTIFY CHANGES AND INTERVENE TO MINIMIZE COMPLICATIONS. PROVIDE SKILLED TEACHING OF GENERAL WOUND AND SKIN CARE AND PREVENTION RELATED TO POTENTIAL FOR OR ACTUAL ALTERED SKIN INTEGRITY ] Future Scheduled Test DIABETES M ANAGEMENT; SKILLED NURSE FOR INSTRUCTIONS OF DIABETIC CARE TO INCLUDE: SKIN CARE, SIGNS AND SYMPTOMS OF HYPO/HYPERGLYCEMIA, PROPER ADMINISTRATION OF DIABETIC MEDICATION. SKILLED NURSE TO INSTRUCT ON DIABETIC FOOT CARE AND MONITOR FOR SKIN LESIONS ON LOWER EXTREMITIES. BLOOD GLUCOSE TESTING THREE TIMES DAILY SKILLED NURSE TO ASSESS PATIENT/CAREGIVER ABILITY TO PERFORM AND RECORD BLOOD GLUCOSE TESTING ORDERED AND TO REPORT ABNORMAL FINDINGS TO PHYSICIAN. SKILLED NURSE MAY PERFORM BLOOD GLUCOSE TEST NEEDED. SKILLED NURSE TO REPORT TO PHYSICIAN BLOOD GLUCOSE READINGS GREATER THAN 70 OR LESS THAN 500 SKILLED NURSE TO INSTRUCT PATIENT ON IMPORTANCE OF HGBA1C MONITORING, KIDNEY FUNCTION TEST, EYE AND FOOT EXAMS. [code = DIABETES MANAGEMENT; SKILLED NURSE FOR INSTRUCTIONS OF DIABETIC CARE TO INCLUDE: SKIN CARE, SIGNS AND SYMPTOMS OF HYPO/HYPERGLYCEMIA, PROPER ADMINISTRATION OF DIABETIC MEDICATION. SKILLED NURSE TO INSTRUCT ON DIABETIC FOOT CARE AND MONITOR FOR SKIN LESIONS ON LOWER EXTREMITIES. BLOOD GLUCOSE TESTING THREE TIMES DAILY SKILLED NURSE TO ASSESS PATIENT/CAREGIVER ABILITY TO PERFORM AND RECORD BLOOD GLUCOSE TESTING ORDERED AND TO REPORT ABNORMAL FINDINGS TO PHYSICIAN. SKILLED NURSE MAY PERFORM BLOOD GLUCOSE TEST NEEDED. SKILLED NURSE TO REPORT TO PHYSICIAN BLOOD GLUCOSE READINGS GREATER THAN 70 OR LESS THAN 500 SKILLED NURSE TO INSTRUCT PATIENT ON IMPORTANCE OF HGBA1C MONITORING, KIDNEY FUNCTION TEST, EYE AND FOOT EXAMS.] Future Scheduled Test FALL REDUC TION MANAGEMENT; NURSING TO PROVIDE SKILLED ASSESSMENT, EDUCATION, AND INTERVENTION TO IDENTIFY FALL RISK FACTORS SUCH MEDICATIONS THAT MAY CAUSE DIZZINESS, CHRONIC DISEASES, PSYCHOLOGICAL FACTORS, AND EMPOWER/EDUCATE PATIENT/CAREGIVER TO MINIMIZE FALL RISK. [code = FALL REDUCTION MANAGEMENT; NURSING TO PROVIDE SKILLED ASSESSMENT, EDUCATION, AND INTERVENTION TO IDENTIFY FALL RISK FACTORS SUCH MEDICATIONS THAT MAY CAUSE DIZZINESS, CHRONIC DISEASES, PSYCHOLOGICAL FACTORS, AND EMPOWER/EDUCATE PATIENT/CAREGIVER TO MINIMIZE FALL RISK.] Goal 2023-04-08 Patient Goal - B REATHE BETTER, IMPROVE STRENGTH AND ENDURANCE Goal Provider Goal - A PLAN OF CARE WILL BE ESTABLISHED THAT MEETS THE PATIENTS NEEDS. PATIENT WILL DEMONSTRATE OXYGEN SATURATION WITHIN NORMAL LIMITS OR PATIENTS OPTIMAL LEVEL ESTABLISHED BY THE PHYSICIAN THROUGHOUT CARE. CHANGES TO CO-MORBID CONDITIONS AND ANY NEW CONDITIONS WILL BE IDENTIFIED AND REPORTED TO THE PHYSICIAN. Goal Provider Goal - PATIENT/CAREGIVER WILL VERBALIZE UNDERSTANDING OF SIGNS AND SYMPTOMS THAT PUT THE PATIENT AT RISK FOR HOSPITALIZATION /EMERGENCY ROOM VISITS, WHEN TO NOTIFY NURSE/PHYSICIAN OF COMPLICATIONS/DECLINE AND WHEN TO CALL 911. Goal Provider Goal - PATIENT / CAREGIVER WILL VERBALIZE/DEMONSTRATE UNDERSTANDING OF MEASURES TO MANAGE ALTERED CARDIOVASCULAR STATUS BY DISCHARGE Goal Provider Goal - PATIENT / CAREGIVER WILL VERBALIZE/DEMONSTRATE AN ABILITY TO ADHERE TO SELF-MANAGEMENT OF HF TO MINIMIZE COMPLICATIONS AND AVOID HOSPITALIZATION BY END OF EPISODE. Goal Provider Goal - PATIENT / CAREGIVER WILL VERBALIZE/DEMONSTRATE CARE AND SELF-MANAGEMENT OF AMI TO MINIMIZE COMPLICATIONS AND AVOID HOSPITALIZATION BY END OF EPISODE. Goal Provider Goal - PATIENT / CAREGIVER WILL VERBALIZE/DEMONSTRATE UNDERSTANDING OF CARE AND MANAGEMENT OF PACEMAKER BY END OF EPISODE. Goal Provider Goal - PATIENT / CAREGIVER WILL VERBALIZE/DEMONSTRATE UNDERSTANDING OF MEASURES TO MANAGE ALTERED RESPIRATORY STATUS BY END OF EPISODE. Goal Provider Goal - PATIENT / CAREGIVER WILL VERBALIZE/DEMONSTRATE AN ABILITY TO ADHERE TO PNEUMONIA SELF-MANAGEMENT TO MINIMIZE COMPLICATIONS AND AVOID HOSPITALIZATION BY END OF EPISODE. Goal Provider Goal - PATIENT / CAREGIVER WILL VERBALIZE / DEMONSTRATE UNDERSTANDING OF PAIN CONTROL MEASURES BY DISCHARGE Goal Provider Goal - CHANGES IN SKIN INTEGRITY STATUS WILL BE IDENTIFIED AND REPORTED TO THE PHYSICIAN FOR PROMPT INTERVENTION. PATIENT / CAREGIVER WILL VERBALIZE/DEMONSTRATE ADEQUATE KNOWLEDGE OF INTEGUMENTARY STATUS AND APPROPRIATE MEASURES TO PROMOTE SKIN INTEGRITY AND PREVENT INJURY BY DISCHARGE Goal Provider Goal - PATIENT / CAREGIVER WILL VERBALIZE / DEMONSTRATE AN ABILITY TO ADHERE TO SELF-MANAGEMENT OF DIABETES MANAGEMENT BY DISCHARGE Goal Provider Goal - PATIENT/CAREGIVER ABLE TO IDENTIFY FALL RISK FACTORS AND IMPLEMENT STRATEGIES TO MINIMIZE FALL RISK. PATIENT/CAREGIVER WILL VERBALIZE/DEMONSTRATE AN ABILITY TO ADHERE TO FALL REDUCTION SELF MANAGEMENT AND LIFE-STYLE CHANGES AT DISCHARGE. PERSONAL GOAL(S) STATED BY PATIENT/CAREGIVER WILL BE MET BY DISCHARGE Reason for Visit PATIENT IN FACILITY AT END OF EPISODE Encounters Start Date/Time End Date/Time Encounter Type Admission Type Attending [facility] Care Facility Care Department Encounter ID Discharge Date Discharge Status Discharge Condition Discharge Reason Percent Goals Met 2023-02-08 00:00:00 2023-04-08 00:00:00 Outpatient NEW ADMISSION [facility]RIST[facility] [id number] 2023-04-08 00:00:00 DISCHARGED /[facility] PATIENT IN FACILITY AT END OF EPISODE [facility] ONLY - TRANSFER TO HOSPITAL .00
[2024-04-14 14:00] LABS: Creatinine Urine 109.08 mg/dL; Microalbum/Creatinine Ratio Ur 5.5 ug/mg cr (<30)
[2024-04-14 14:05] LABS: Alanine Aminotransferase 26 U/L (0-40); Albumin Level 4.2 g/dL (3.5-5.0); Alkaline Phosphatase 51 U/L (39-117); Anion Gap 11 (12-20); Aspartate Amino Transferase 27 U/L (5-37); Bilirubin Total 0.5 mg/dL (0.0-1.0); Blood Urea Nitrogen 13 mg/dL (9-16); Calcium 9.6 mg/dL (8.4-10.2); Carbon Dioxide 30 mmol/L (22-29); Chloride 105 mmol/L (96-108); Estimated Glomerular Filt Rate > 60; Glucose Random 180 mg/dL (60-115); Magnesium 1.6 mg/dL (1.6-2.6); Potassium 4.2 mmol/L (3.3-5.1); Sodium 142 mmol/L (135-145); TSH reflex Free T4 1.57 uIU/mL (0.32-4.0); Total Protein 6.6 g/dL (6.5-8.0)
== END 2024-04-14 11:03 | disposition home or self-care (01) ==
LOC: HO.HHCL 11:02
PROVIDERS: Visit Provider Internal Medicine Geriatric Medicine
DX: E11.8 Type 2 diabetes mellitus with unspecified complications (principal); Z79.4 Long term (current) use of insulin; I42.9 Cardiomyopathy, unspecified; E11.59 Type 2 diabetes mellitus with other circulatory complications; Z86.79 Personal history of other diseases of the circulatory system; Z79.899 Other long term (current) drug therapy
CPT/HCPCS: 36415; 80053; 82043; 82570; 82947; 83735; 84443; 99212

== ENCOUNTER 2024-04-14 15:20 | Outpatient (AMB) | payer MEDICARE, BC, SELFPAY ==
--- NOTE | 2024-04-14 15:20 | A.OFFVIS_ITS ---
Vital Signs 04/14/24 15:21 Height 5 ft 7 in Weight 136 lb 10.986 oz BMI 21.4 Blood Pressure Location Rt brachial Position Sitting Pulse Source Pulse Oximeter Intake Visit Reasons: DM Intake Note: Patient presents today for a follow-up on Type 2 Diabetes Mellitus: Last Diabetic eye exam was on: DUE Last Podiatry exam was on: Does not see a Aluminum Welder Most recent HbA1c: 6.4%, 02/24/2024 Random Glucose- 256 mg/dL, Today Hydroelectric Systems Technician Required: No Hydroelectric Systems Technician Name: TOMMIE Silverman/BENITO MITCHELL Accompanied by: Self / Same As Patient Allergies No Known Allergies [No Known Allergies*] Allergy (Verified 04/14/24 15:20) HPI Comments Details: 68-year-old male presenting for diabetic consultation Medical history: 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 On prednisone taper-currently 12.5mg daily PCP: Yoandy Tillman MD Diagnosed Current medications: admelog, glargine Glucometer: One touch Seen by PCP 02/05/2024. He is currently on 09/16/11 admelog and glargine 25 units. Last A1C is 6.4%. 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 HEENT: Denies changes in vision and hearing. RESPIRATORY: Denies SOB and cough. CV: Denies palpitations and CP GI: Denies abdominal pain, nausea, vomiting and diarrhea. : Denies dysuria and urinary frequency. MSK: Denies new myalgia and joint pain. SKIN: Denies rash and pruritus. NEUROLOGICAL: Denies headache PSYCHIATRIC: Denies recent changes in mood. PHYSICAL EXAM: GENERAL: Alert and oriented x 3. NAD EYES: EOMI. Anicteric. HENT: Moist mucous membranes. No scleral icterus. No cervical lymphadenopathy. LUNGS: Clear to auscultation bilaterally. CARDIOVASCULAR: Regular rate and rhythm. No murmur. No JVD. ABDOMEN: Soft, non-tender +bs EXTREMITIES: No edema. Non-tender. SKIN: No rashes or lesions. Warm. NEUROLOGIC: No focal neurological deficits. CN II-XII grossly intact PSYCHIATRIC: Cooperative. Appropriate mood and affect [facility] Medical History Diabetes Pacemaker Surgical History Hx of heart transplant History of cardiac catheterization (~10/2021) History of cataract surgery Family History Father Diabetes Heart problem Brother Heart attack Social History Alcohol intake: never Patient Tobacco Use Status: Never used Tobacco Physical Exam Vital Signs: BMI result Body Mass Index 21.4 Assessment & Plan Assessment & Plan (1) Type 2 diabetes mellitus with unspecified complications: Code(s): E11.8 - Type 2 diabetes mellitus with unspecified complications Category: Medical Plan: Increase glargine to 30 units daily. Continue current admelog dosing Return in 6 weeks for meter review and A1C Call in interim with hyper/hypoglycemia Coding Level of Care Code Est Pt Level 4 (95201) Diagnoses Type 2 diabetes mellitus with unspecified complications E11.8
[2024-04-14 15:21] VITALS: BMI 21.4
[2024-04-14 15:31] LABS: Glucose, Whole Blood 256 mg/dL (60-115)
--- OUTSIDE RECORDS SUMMARY | 2024-04-14 16:49 | XMS_ITS | Clinical Summary ---
Author Organization Unknown Care Team Providers Care Inspector Poising Name Role Phone DIANA LUGO, FERMIN Unavailable Unavailable SAMUEL RN, CRISTY Unavailable Unavaildonald TABARES RESUME SPECIALIST, JYOTI Unavailable Unavailable UMA OT, DINO Unavailable Unavailable UMA FORKLIFT TECHNICIAN, PARDEEP Unavailable Unavailable MARSHA GILLETTE/HAMM, ALYCIA Unavailable Unavailab fredis COLE PT, KEYANNA Unavailable Unavailable Payers Payer Name Policy Type Policy Number Effective Date Expira tion Date [id number].[facility].[employer] [facility]AUTH [id number] Problems Condition Name Condition Details Condition Category [...] 2022-04 00:00: 00 ATHSCL HEART DISEASE OF [place] CORONARY ARTERY W/O ANG PCTRS Active 2022-04 00:00: 00 UNSP DEMENTIA, UNSP SEVERITY, WITHOUT BEH/PSYCH/MO OD/ANX Active 04-06 00:00: 00 VENTRICULAR TACHYCARDIA, UNSPECIFIED Active 04-06 00:00: 00 UNSPECIFIED ATRIAL FLUTTER Active 2022-04 00:00: 00 OTHER SPECIFIED DISEASES OF UPPER RESPIRATORY TRACT Active 04-06 00:00: 00 DYSPHAGIA, OROPHARYNGEA L PHASE Active 2022-04 00:00: 00 HYPERLIPIDEM IA, UNSPECIFIED Active 04-06 00:00: 00 NURSING HOME (CURRENT) USE OF INSULIN Active 04-06 00:00: 00 PRESENCE OF AUTOMATIC (IMPLANTABLE ) CARDIAC DEFIBRILLATO R Active 04-06 00:00: 00 NURSING HOME (CURRENT) USE OF ANTICOAGULAN TS Active 04-06 00:00: 00 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 300 mg 2 TIMES DAILY 300 mg 2 TIMES DAILY (route: oral) Med Classific ation: Anti-Infe ctive Agents metoprolol succinate ER 50 mg tablet,exte nded release 24 hr 2022-04 00:00: 00 Yes [id number] . 25 mg BEDTIME 25 mg BEDTIME (route: oral) Med Classific ation: Cardiovas cular Therapy Agents spironolact one 25 mg tablet 2022-04 00:00: 00 Yes [id number] . 1 tablet ONCE DAILY 1 tablet ONCE DAILY (route: oral) Med Classific ation: Cardiovas cular Therapy Agents torsemide 20 mg tablet 2022-04 00:00: 00 Yes [id number] . 20 mg ONCE DAILY 20 mg ON CE DAILY (route: oral) Med Classific ation: Cardiovas cular Therapy Agents furosemide 40 mg tablet 2022-04 00:00: 00 02-08 00:00 :00 No [id number] Per instruc tions Per instructio ns (route: oral) Med Classific ation: Cardiovas cular Therapy Agents Semglee (insulin glargine-yf gn) 100 unit/mL subcutaneou s solution 2022-04 016 00:00: 00 02-08 00:00 :00 No [id number] Per instruc tions Per instructio ns (route: [facility]) Med Classific ation: Endocrine atorvastati n 40 mg tablet 2022-04 00:00: 00 Yes [id number] , 1 tablet BEDTIME 1 tablet BEDTIME (route: oral) Med Classific ation: Cardiovas cular Therapy Agents Eliquis 5 mg tablet 2022-04 00:00: 00 Yes [id number] . Per instruc tions TWICE DAILY Per instructio ns TWICE DAILY (route: oral) Med Classific ation: Hematolog ical Agents Jardiance 10 mg tablet 2022-04 00:00: 00 Yes [id number] . 10 mg ONCE DAILY 10 mg ON CE DAILY (route: oral) Med Classific ation: Endocrine losartan 25 mg tablet 2022-04 00:00: 00 Yes [id number] . Per instruc tions ONCE DAILY Per instructio ns ONCE DAILY (route: oral) Med Classific ation: Cardiovas cular Therapy Agents metoprolol succinate ER 25 mg tablet,exte nded release 24 hr 2022-04 00:00: 00 02-08 00:00 :00 No [id number] Per instruc tions ONCE DAILY Per instructio ns ONCE DAILY (route: oral) Med Classific ation: Cardiovas cular Therapy Agents aspirin 81 mg chewable tablet 2022-04 00:00: 00 Yes [id number] . 1 tablet DAILY 1 tablet DAILY (route: oral) Med Classific ation: Hematolog ical Agents insulin glargine (U-100) 100 unit/mL subcutaneou s solution 2022-04 00:00: 00 Yes [id number] . 8 unit BEFORE DINNER 8 unit BEFORE DINNER (route: [facility]) Med Classific ation: Endocrine mexiletine 150 mg capsule 2022-04 00:00: 00 Yes [id number] . 1 capsule 3 TIMES DAILY 1 capsule 3 TIMES DAILY (route: oral) Med Classific ation: Cardiovas cular Therapy Agents Mucinex 600 mg tablet, extended release 2022-04 00:00: 00 Yes [id number] . 1 tablet 2 TIMES DAILY 1 [...] CONSULTING PHYSICIANS RN TO OBSERVE AND ASSESS, RESUME SPECIALIST TO OBSERVE FOR RISK FOR FALLS AND [...] CONSULTING PHYSICIANS RN TO OBSERVE AND ASSESS, RESUME SPECIALIST TO OBSERVE FOR RISK FOR FALLS AND [...] End Date/Time Encounter Type Admission Type Attending [facility] Care Department Encounter ID Discharge Date Discharge Status Discharge Condition Discharge Reason Percent Goals Met 2023-02-08 00:00:00 2023-04-08 00:00:00 Outpatient NEW ADMISSION CRISTY [facility] [id number] 2023-04-08 00:00:00 DISCHARGED /[facility]ERR ED [facility] PATIENT IN FACILITY AT END OF EPISODE HH ONLY - TRANSFER TO HOSPITAL .00
--- OUTSIDE RECORDS SUMMARY | 2024-04-14 16:49 | XMS_ITS | Clinical Summary ---
Author Organization Unknown Care Team Providers Care Assistant Financial Accountant Name Role Phone DIANA LUGO, FERMIN Unavailable Unavailable SAMUEL RN, CRISTY Unavailable Unavaildonald TABARES PERFORMANCE INSTRUCTOR, JYOTI Unavailable Unavailable UMA OT, DINO Unavailable Unavailable UMA CHAINSTITCH BINDER, PARDEEP Unavailable Unavailable MARSHA GILLETTE/HAMM, ALYCIA Unavailable Unavailab fredis COLE PT, KEYANNA Unavailable Unavailable Payers Payer Name Policy Type Policy Number Effective Date Expira tion Date [id number].[facility].[employer].AUTH [id number] Problems Condition Name Condition Details Condition Category [...] 2022-04 00:00: 00 ATHSCL HEART DISEASE OF [place] CORONARY ARTERY W/O ANG PCTRS Active 2022-04 00:00: 00 UNSP DEMENTIA, UNSP SEVERITY, WITHOUT BEH/PSYCH/MO OD/ANX Active 04-06 00:00: 00 VENTRICULAR TACHYCARDIA, UNSPECIFIED Active 04-06 00:00: 00 UNSPECIFIED ATRIAL FLUTTER Active 2022-04 00:00: 00 OTHER SPECIFIED DISEASES OF UPPER RESPIRATORY TRACT Active 04-06 00:00: 00 DYSPHAGIA, OROPHARYNGEA L PHASE Active 2022-04 00:00: 00 HYPERLIPIDEM IA, UNSPECIFIED Active 04-06 00:00: 00 [facility] (CURRENT) USE OF INSULIN Active 04-06 00:00: 00 PRESENCE OF AUTOMATIC (IMPLANTABLE ) CARDIAC DEFIBRILLATO R Active 04-06 00:00: 00 [facility] (CURRENT) USE OF ANTICOAGULAN TS Active 04-06 00:00: 00 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 300 mg 2 TIMES DAILY 300 mg 2 TIMES DAILY (route: oral) Med Classific ation: Anti-Infe ctive Agents metoprolol succinate ER 50 mg tablet,exte nded release 24 hr 2022-04 00:00: 00 Yes [id number] . 25 mg BEDTIME 25 mg BEDTIME (route: oral) Med Classific ation: Cardiovas cular Therapy Agents spironolact one 25 mg tablet 2022-04 00:00: 00 Yes [id number] . 1 tablet ONCE DAILY 1 tablet ONCE DAILY (route: oral) Med Classific ation: Cardiovas cular Therapy Agents torsemide 20 mg tablet 2022-04 00:00: 00 Yes [id number] . 20 mg ONCE DAILY 20 mg ON CE DAILY (route: oral) Med Classific ation: Cardiovas cular Therapy Agents furosemide 40 mg tablet 2022-04 00:00: 00 02-08 00:00 :00 No [id number] Per instruc tions Per instructio ns (route: oral) Med Classific ation: Cardiovas cular Therapy Agents Semglee (insulin glargine-yf gn) 100 unit/mL subcutaneou s solution 2022-04 016 00:00: 00 02-08 00:00 :00 No [id number] Per instruc tions Per instructio ns (route: [facility]) Med Classific ation: Endocrine atorvastati n 40 mg tablet 2022-04 00:00: 00 Yes [id number] , 1 tablet BEDTIME 1 tablet BEDTIME (route: oral) Med Classific ation: Cardiovas cular Therapy Agents Eliquis 5 mg tablet 2022-04 00:00: 00 Yes [id number] . Per instruc tions TWICE DAILY Per instructio ns TWICE DAILY (route: oral) Med Classific ation: Hematolog ical Agents Jardiance 10 mg tablet 2022-04 00:00: 00 Yes [id number] . 10 mg ONCE DAILY 10 mg ON CE DAILY (route: oral) Med Classific ation: Endocrine losartan 25 mg tablet 2022-04 00:00: 00 Yes [id number] . Per instruc tions ONCE DAILY Per instructio ns ONCE DAILY (route: oral) Med Classific ation: Cardiovas cular Therapy Agents metoprolol succinate ER 25 mg tablet,exte nded release 24 hr 2022-04 00:00: 00 02-08 00:00 :00 No [id number] Per instruc tions ONCE DAILY Per instructio ns ONCE DAILY (route: oral) Med Classific ation: Cardiovas cular Therapy Agents aspirin 81 mg chewable tablet 2022-04 00:00: 00 Yes [id number] . 1 tablet DAILY 1 tablet DAILY (route: oral) Med Classific ation: Hematolog ical Agents insulin glargine (U-100) 100 unit/mL subcutaneou s solution 2022-04 00:00: 00 Yes [id number] . 8 unit BEFORE DINNER 8 unit BEFORE DINNER (route: [facility]) Med Classific ation: Endocrine mexiletine 150 mg capsule 2022-04 00:00: 00 Yes [id number] . 1 capsule 3 TIMES DAILY 1 capsule 3 TIMES DAILY (route: oral) Med Classific ation: Cardiovas cular Therapy Agents Mucinex 600 mg tablet, extended release 2022-04 00:00: 00 Yes [id number] . 1 tablet 2 TIMES DAILY 1 [...] CONSULTING PHYSICIANS RN TO OBSERVE AND ASSESS, PERFORMANCE INSTRUCTOR TO OBSERVE FOR RISK FOR FALLS AND [...] CONSULTING PHYSICIANS RN TO OBSERVE AND ASSESS, PERFORMANCE INSTRUCTOR TO OBSERVE FOR RISK FOR FALLS AND [...] Date/Time Encounter Type Admission Type Attending [facility] Care Facility Care Department Encounter ID Discharge Date Discharge Status Discharge Condition Discharge Reason Percent Goals Met 2023-02-08 00:00:00 2023-04-08 00:00:00 Outpatient NEW ADMISSION CRISTY BAKER [facility] [id number] 2023-04-08 00:00:00 DISCHARGED /TRANSFERR ED TO [facility] PATIENT IN FACILITY AT END OF EPISODE HH ONLY - TRANSFER TO HOSPITAL .00
== END 2024-04-14 15:41 | disposition home or self-care (01) ==
LOC: HO.ENCR 15:20
PROVIDERS: PCP Internal Medicine Geriatric Medicine; Visit Provider Internal Medicine
DX: E11.8 Type 2 diabetes mellitus with unspecified complications (principal)

== ENCOUNTER 2024-05-20 11:33 | Outpatient (REF) | payer MEDICARE, SELFPAY ==
--- OUTSIDE RECORDS SUMMARY | 2024-05-20 12:20 | XMS_ITS | Data Portability ---
Author Organization [place] - [facility], Allergy Address [address] [place] [address] Care Team Providers Care Electronics Scale Tester Name Role Phone NAME, SKY Referring Provider Assessment Encounter Date Assessment Date Assessment LastModified by Organization Details LastModified Time 02/25/2024 02/25/2024 68-year-old male presents today for evaluation of stridor and tracheal stenosis. Symptoms seem to worsen about 3 weeks ago following dilation in November. Of note he had heart transplant about 2 months ago at [facility]. Flexible laryngoscopy did not reveal any vocal cord pathology to contribute to stridor. He is not in any respiratory distress and stridor is fairly mild. At his previous dilation, Dr. Walton recommended repeat assessment in 3 to 4 months and we are at that time, so I did recommend he follow-up with pulmonology for further management of the tracheal stenosis. He may follow-up with us as needed for this reason. He is interested in formal audiometric testing so we will schedule this for a future visit. [email or web address] Not available 02/26/2024 10:55:59 Plan of Treatment Reminders Order Date Submit Date Provider Last Modified By Organization Details Last Modified Time Details Appointments MARTINEZ Initial Fitting 2024 11:00A M JACQUE PRATT Not available Not available Not available Lab None recorded. Referral pulmonolo gist referral - Establish ed patient of Dr Alegre . Needs follow up appt/repe at endoscopy . Patient has recent heart transplan t. Thank you. 2023 Tarsha loco ta15 [facility], [address] , [place], [address], 03/25/2024 09:56:34 Procedures None recorded. Surgeries None recorded. Imaging None recorded. Medication Orders None recorded. Patient TargetsNo targets recorded. Patient InstructionsNo instructions recorded. Reason for Referral Mental Health Unit Lead Psychologist Referral for T gaby stenosis following tracheostomy Established patient of Dr Alegre. Needs follow up appt/repeat endoscopy. Patient has recent heart transplant. Thank you. Referring Physician: Sandip Regalado, Otolaryngology, Encounter Date: 02/25/2024 Problems Name Problem SNOMED Code Status Onset Date Resolution Date Notes Provider Name and Address Organization Details Recorded Time Tracheal stenosis following tracheostomy 96893501 Active 2023 SNADIP REGALADO MD [address] [place] [address], [place], [phone], [facility] 4 12:10:02 Sensorineural hearing loss of bilateral ears 359132099 Active 2024 JACQUE LUGO [address] [place] [address], [place], [phone], [facility] 5 16:02:33 Problem Notes None recorded. Procedures Surgical History Date Name Laterality Status Provider Name and Address Organization Details Recorded Time 04/15/19 25 Comp Audio with Tymps (96099 & 80941) completed JACQUE LUGO [address] [place] [address],[address], [phone], [facility] 04/15/2024 16:02:37 02/25/20 24 Fiberoptic Laryngoscopy (Comprehensive) completed SANDIP REGALADO MD [address] [place] [address], [phone], [facility] 02/25/2024 12:11:38 Imaging Results None recorded. Procedure Notes None recorded. Medical Equipment None Reported. Allergies No known drug allergies Medications Name Sig Start Date Stop Date Status Note LastModified by Organization Details LastModified Time amoxicillin 500 mg capsule TAKE FOUR CAPSULES BY MOUTH ONE HOUR BEFORE DENTAL WORK. active Not Available Not Available No t Available atorvastati n 40 mg tablet TAKE 1 TABLET BY MOUTH NIGHTLY active Not Available Not Available No t Available valganciclo vir 450 mg tablet active Not Available Not Available Not Available BD Alcohol Swabs active Not Available Not Available Not Available nystatin 100,000 unit/mL oral suspension active Not Available Not Available N ot Available prednisone 10 mg tablet active Not Available Not Available Not Available torsemide 20 mg tablet TAKE 1/2 (ONE-HALF ) TABLET BY MOUTH ONCE DAILY 02/24 completed Not Available Not Available Not Available pravastatin 40 mg tablet active Not Available Not Available Not Available amiodarone 200 mg tablet TAKE 2 TABLETS BY MOUTH EVERY DAY 02/24 completed Not Available Not Available Not Available tacrolimus 5 mg capsule, immediate-r elease active Not Available Not Available Not Available torsemide 10 mg tablet TAKE 1 TABLET BY MOUTH EVERY DAY active Not Available Not Available No t Available sulfamethox azole 800 mg-trimetho prim 160 mg tablet active Not Available Not Available Not Available doxycycline monohydrate 100 mg tablet TAKE 1 TABLET BY MOUTH TWICE DAILY FOR 7 DAYS 02/24 completed Not Available Not Available Not Available spironolact one 25 mg tablet TAKE 1 TABLET BY MOUTH ONCE DAILY 02/24 completed Not Available Not Available Not Available mycophenola te mofetil 500 mg tablet active Not Available Not Available Not Available mexiletine 150 mg capsule TAKE 1 CAPSULE BY MOUTH EVERY 8 HOURS 02/24 completed Not Available Not Available Not Available pantoprazol e 40 mg tablet,jania yed release active Not Available Not Available Not Available budesonide 0.5 mg/2 mL suspension for nebulizatio n USE 1 VIAL IN NEBULIZER TWICE DAILY RINSE MOUTH AFTER USE 02/24 completed Not Available Not Available Not Available levetiracet am 750 mg tablet active Not Available Not Available Not Available metoprolol succinate ER 25 mg tablet,exte nded release 24 hr TAKE 1/2 (ONE-HALF ) TABLET BY MOUTH NIGHTLY 02/24 completed Not Available Not Available Not Available sodium chloride 0.9 % for nebulizatio n USE 3ML VIAL IN NEBULIZER TWICE DAILY FOR 14 DAYS. MIX WITH 10 DROPS OF CIPRODEX SOLUTION. 02/24 completed Not Available Not Available Not Available tacrolimus 1 mg capsule, immediate-r elease TAKE 1 CAPSULE (1 MG) BY MOUTH TWICE DAILY. DIRECTED BY CLINIC active Not Available Not Available No t Available amoxicillin 875 mg-potassiu m clavulanate 125 mg tablet TAKE 1 TABLET BY MOUTH EVERY TWELVE HOURS FOR 3 DAYS 02/24 completed Not Available Not Available Not Available ciprofloxac in 0.3 %-dexametha sone 0.1 % ear drops,suspe nsion USE 10 DROPS MIXED WITH 3ML NORMAL SALINE NEBULIZED TWICE DAILY FOR 14 DAYS 02/24 completed Not Available Not Available Not Available lancing device active Not Available Not Available Not Available BD Ultra-Fine Mini Pen Needle 31 gauge x 3/16 active Not Available Not Available Not Available Humalog KwikPen (U-100) Insulin 100 unit/mL subcutaneou s INJECT 6 UNITS ONCE DAILY IN THE MORNING AND 6 UNITS IN THE EVENING WITH MEALS (LUNCH AND DINNER) active Not Available Not Available No t Available OneTouch Verio test strips active Not Available Not Available Not Available OneTouch Verio High Control solution active Not Available Not Available Not Available insulin syringe U-100 with needle 1 mL 31 gauge x 15/64 USE 1 THREE TIMES DAILY DIRECTED active Not Available Not Available No t Available Ultra Thin Lancets 31 gauge active Not Available Not Available Not Available Eliquis 5 mg tablet TAKE 1 TABLET BY MOUTH TWICE DAILY 02/24 completed Not Available Not Available Not Available Comfort EZ Pen [place] 32 gauge x active Not Available Not Available Not Available Jardiance 10 mg tablet TAKE 1 TABLET BY MOUTH ONCE DAILY 02/24 completed Not Available Not Available Not Available Lokelma 10 gram oral powder packet PLEASE SEE ATTACHED FOR DETAILED DIRECTION S 02/24 completed Not Available Not Available Not Available Novolin N FlexPen 100 unit/mL (3 mL) subcutaneou s insulin pen active Not Available Not Available Not Available OneTouch Verio Reflect Meter active Not Available Not Available Not Available Dexcom G7 Sensor device USE TO CHECK BLOOD GLUCOSE DIRECTED 02/24 completed Not Available Not Available Not Available Breyna 160 mcg-4.5 mcg/actuati on HFA aerosol inhaler INHALE 2 PUFFS BY MOUTH TWICE DAILY RINSE MOUTH AFTER USE 02/24 completed Not Available Not Available Not Available Vitals Date Recorded Body height Body mass index (BMI) Body weight Provider Name and Address Organization Details Last Updated DateTime 02/25/2024 172.72 cm 26.8 kg/m2 21313.26 g Manda Ly [place] - [facility] 02/25/2024 11:47:14 Date Recorded Body height Body mass index (BMI) Body weight Provider Name and Address Organization Details Last Updated DateTime 04/15/2024 172.72 cm 20.2 kg/m2 43524.79 g Manda Ly [place] - [facility] 04/15/2024 16:28:34 Social History None recorded. Functional Status None recorded. Mental Status None recorded. Family History Nothing Reported. Medical History Condition Response Heart Problems Y Diabetes Y Hyperlipidemia Y Past Encounters Encounter ID Performer Location Encounter Start Date Encounter Closed Date Diagnosis/Indication Diagnosis SNOMED-CT Code Diagnosis ICD10 Code Diagnosis Note [id number] SANDIP REGALADO MD [facility] [address] [address] 02/25/2024 11:26:24 02/25/2024 12:26:39 Tracheal stenosis following tracheostomy 06018413 J95.03 [id number] SANDIP REGALADO MD [facility] [address] [address] 04/15/2024 15:37:29 04/15/2024 16:57:22 Sensorineural hearing loss of bilateral ears 862330798 H90.3 68 yo M with a history of tracheal stenosis followed by interventi onal pulmonolog y presents today for evaluation of hearing loss. Audiogram shows symmetric moderate HF loss. He is a candidate for amplificat ion. Medical clearance given. He has a secondary concern for some right ear numbness. Ear exam is normal. This started after his hospitaliz ation and transplant . He has several scars from central lines in the region of the greater auricular nerve and there was likely some irritation here. [id number] JACQUE LUGO [facility] [address] [address] 04/15/2024 15:59:22 04/18/2024 07:41:17 Sensorineural hearing loss of bilateral ears 495867968 H90.3 Right Ear:Normal hearing through 1.5K Hz sloping to a moderate SNHL with good speech discrimina tion.Type A tympanogra m.Left Ear:Normal hearing through 1.5K Hz sloping to a moderate SNHL with good speech discrimina tion.Type A tympanogra m. Health Concerns Section Related Observation LastModified by Organization Detai ls LastModified Time None Recorded Concern Status LastModified by Organization Details LastModified Time None Recorded Advance Directives Directive None Recorded Payers Encounter Date Sequence Insurance Name Policy Number Policy Lee Covered Member ID Lee Member ID Guarantor Name 02/25/2024 2 [place] [id number] Matthew L Avila [id number] Matthew Donny Avila Avila 02/25/2024 1 [place] [employer] Matthew Avila Avila [id number] Matthew Donny Avila Avila 04/15/2024 2 [place] [id number] Matthew L Avila [id number] Matthew Donny Avila Avila 04/15/2024 1 [place] Matthew Avila Avila [id number] Matthew Donny Avila Avila 04/15/2024 2 [place] [id number] Matthew L Avila [id number] Matthew Donny Avila Avila 04/15/2024 1 [place] Matthew Avila Avila [id number] Matthew Donny Avila Avila Notes Date Note Type Note Provider Name and Address Organization Details Recorded Time 02/25/2024 text/html 68 yo M here for tracheal stenosis.Wheezing, had had 5 bronchoscopies. Scarring in the trachea following tracheostomy due to intensive care after heart attack, last year 2022 in [place], was on vacation. Coughing a lot. Had a heart transplant 2 months ago, surgery for 8 hours. Breathing well but feels like he is fatigued. He had dilation in November with Dr. Walton. Did well thereafter until 3 weeks ago. No sore throat or dysphagia. PFTs in November showed normal spirometry, no significant response to bronchodilator, mild restrictive defect, diffusing capacity is normal when corrected for lung volume SANDIP REGALADO MD [address] [place] [address], [phone], [place] - [facility] 02/26/2024 10:58:54 04/15/2024 text/html Starting feeling numb on the side of the ear right after his surgeryTTP over jaw Has seen Dr. Walton. SANDIP REGALADO MD [address] [place] [address], [phone], [place] - [facility] 04/18/2024 07:25:33
--- OUTSIDE RECORDS SUMMARY | 2024-05-20 12:20 | XMS_ITS | Encounter Summary ---
Author Organization [employer] [facility] Address [address] [place] [address] Care Team Providers Care Medicare Interviewer Name Role Phone Name, Yoandy LUGO Primary Care Provider [phone] Name, Yoandy LUGO Primary Care Provider [phone] Encounter Details Date Type Department Care Team (Late st Contact Info) Description 03/21/2022 Orders Only [facility] [address] [place] [address] [phone] Coby Flores RN Social History Tobacco Use Types Packs/Day Years Used Date Smoking Tobacco: Never Assessed Depression Answer Date Recorded Patient Health Questionnaire-2 Score 0 03/24/2022 Sex and Gender Information Value Date Recorded Sex Assigned at Male 02/03/2022 10:39 AM EDT Legal Sex Male 10:39 AM EDT Gender Identity Male 02/03/2022 10:39 AM EDT Sexual Orientation Straight 02/03/2022 10 :39 AM EDT COVID-19 Exposure Response Date Recorded In the last 10 days, have yo u been in contact with someone who was confirmed or suspected to have Coronavirus/COVID-19? No / Unsure 03/24/2022 8:55 AM EST documented as of this encounter Plan of Treatment Upcoming Encounters Date Type Department Care Team (Late st Contact Info) Description 07/07/2024 9:00 AM EDT Office Visit [facility] [address] [place] [address] Lena Keene, RONNIE [address] [place] [address] 07/27/2024 10:45 AM EDT Office Visit [facility] [address] [place] [address] Name, MD Yoandy [address] [place] [address] documented as of this encounter Procedures Procedure Name Priority Date/Time Associated Diagnosis Comments B TYPE NATRIURETIC PEPTIDE (BNP) Routine 06/27/2022 9:53 AM EDT HEPATIC FUNCTION PANEL Routine 06/27/2022 9:53 AM EDT LIPID PANEL, STANDARD Routine 06/27/2022 9:53 AM EDT BASIC METABOLIC PANEL Routine 06/27/2022 9:53 AM EDT documented in this encounter Results * Lipid Panel, Standard (06/27/2022 9:53 AM EDT) Triglycerides 84 mg/dL [facility] Comment:Desirable Triglyceri de: less than 150 mg/dLBorderline High Triglyceride 150-199 mg/dLHigh Triglyceride: 200-499 mg/dLVery High Triglyceride: greater than or equal to 5OO mg/dL Cholesterol 154 mg/dL [facility] Comment:Desirable Cholestero l: less than 200 mg/dLBorderline High Cholesterol: 200-239 mg/dLHigh Cholesterol: greater than 239 mg/dL LDL Cholesterol Calculated 104 mg/dl [facility] Comment:Desirable LDL: less than 100 mg/dLNear Optimal/Above Optimal LDL: 110- 129 mg/dLBorderline High LDL: 130-159 mg/dLHigh LDL: 160-189 mg/dLVery High LDL: greater than or equal to 190 mg/dL HDL Cholesterol 34 mg/dL [facility] Comment:Desirable HDL: great er than 40 mg/dL Note: This HDL assay may give artificially low results in patients with liver disease. 06/27/2022 9:53 AM EDT 06/27/2022 9:53 AM EDT us [facility] External Provider LAB BLO OD ORDERABLES Final Result Performing Organization Address [facility] Co de Phone Number [facility] [address] [place] [address] [phone] * (ABNORMAL) Basic Metabolic Panel (06/27/2022 9:53 AM EDT) [facility] Sodium 143 135 - 145 mmol/L [facility] Potassium 4.6 3.3 - 5.1 mmol/L [facility] Chloride 108 96 - 108 mmol/L [facility] Carbon Dioxide 26 22 - 29 mmol/L [facility] Anion Gap 14 12 - 20 [facility] Urea Nitrogen (BUN) 13 9 - 16 mg/dL [facility] Creatinine, Serum 1.02 0.5 - 1.4 mg/dL [facility] Estimated Glomerular Filt Rate >60 [facility] Comment:NOTE: For -Am erican individuals, multiply the result by 1.210.Chronic Kidney Disease: Estimated GFR < 60 mL/min/[id number] Kidney Disease: Estimated GFR < 15 mL/min/1.73m2 Glucose 141(H) 60 - 115 mg/dL [facility] Calcium 9.4 8.4 - 10.2 mg/dL [facility] 06/27/2022 9:53 AM EDT 06/27/2022 9:53 AM EDT [facility] External Provider LAB BLO OD ORDERABLES Final Result Performing Organization Address [facility]/ZIP Co de Phone Number [facility] [address] [place] [address] [phone] Hepatic Function Panel (06/27/2022 9:53 AM EDT) Bilirubin, Total 1.0 0.0 - 1.0 mg/dL [facility] Bilirubin, Direct 0.3 0.0 - 0.5 mg/dL [facility] Aspartate Amino Transferase 19 5 - 37 U/L [facility] Alanine Aminotransferase 24 0 - 40 U/L [facility] Total Protein 6.7 6.5 - 8.0 g/dL [facility] Albumin Level 4.2 3.5 - 5.0 g/dL [facility] Alkaline Phosphatase 61 39 - 117 U/L [facility] 06/27/2022 9:53 AM EDT 06/27/2022 9:53 AM EDT [facility] External Provider LAB BLO OD ORDERABLES Final Result Performing Organization Address [facility] Co de Phone Number [facility] [address] [place] [address] [phone] * (ABNORMAL) B Type Natriuretic Peptide (BNP) (06/27/2022 9:53 AM EDT) B Type Natriuretic Peptide 332(H) <100 pg/mL [facility] Comment:For those patients w ho are being treated with Natrecor(nesiritide, recombinant BNP), BNP testing should beperformed at least two hours post treatment in order toensure that only endogenous levels of BNP are detected. 06/27/2022 9:53 AM EDT 06/27/2022 9:53 AM EDT [facility] External Provider LAB BLO OD ORDERABLES Final Result Performing Organization Address [facility] Co de Phone Number [facility] [address] [place] [address] [phone] documented in this encounter Visit Diagnoses Not on filedocumented in this encounter Care Teams Medicare Interviewer Relationship Specialty Start Date End Date NameYoandy MD [address] [place] [address] PCP - General Family Medicine 01/18/21 06/04/23 Name, MD Yoandy [address] [place] [address] PCP - General Internal Medicine 10/19/23 Blanka Coreas 01/19/24 documented as of this encounter
--- OUTSIDE RECORDS SUMMARY | 2024-05-20 12:20 | XMS_ITS | Clinical Summary ---
Author Organization [employer] Address [address] [place] [address] Care Team Providers Care Field Service Coordinator Name Role Phone Name, Yoandy LUGO Primary Care Provider [phone] Allergies Active Allergy Reactions Criticality Noted Date Comments Lisinopril Cough 03/13/2022 Medications Blood Glucose Monitoring Suppl (FreeStyle glucose monitoring) kit 1 each if needed. Test 1 time by intradermal route everyday Active FREESTYLE LITE test strip TEST BLOOD SUGAR EVERY DAY 100 strip 11 3 Active aspirin 81 MG chewable tablet Chew 1 tablet (81 mg) Once daily. 90 tablet 3 Active torsemide (Demadex) 10 MG tablet Take 1 tablet (10 mg) by mouth Once per day. 30 tablet 1 4 Active mexiletine (Mexitil) 150 MG capsule Take 1 capsule (150 mg) by mouth every 8 (eight) hours. 90 capsule 11 4 025 Active spironolactone (Aldactone) 25 MG tablet Take 1 tablet by mouth Once per day. 4 Active metoprolol succinate XL (Toprol-XL) 25 MG 24 hr tablet Take 0.5 tablets by mouth Once per day. Do not crush or chew. Active budesonide (Pulmicort) 0.5 MG/2ML nebulizer solution USE 1 VIAL IN NEBULIZER TWICE DAILY RINSE MOUTH AFTER USE Active amoxicillin (Amoxil) 500 MG capsule TAKE FOUR CAPSULES BY MOUTH ONE HOUR BEFORE DENTAL WORK. 4 Active mycophenolate (Cellcept) 500 MG tablet Take 1,000 mg by mouth 2 times daily. 10/08/ Active nystatin (Mycostatin) 515274 UNIT/ML suspension Swish and swallow 500,000 Units 4 times daily. 4 Active pravastatin (Pravachol) 40 MG tablet Take 40 mg by mouth at bedtime. 4 Active pantoprazole (ProtoNix) 40 MG EC tablet Take 40 mg by mouth before breakfast. 4 Active predniSONE (Deltasone) 10 MG tablet Take 30 mg by mouth Once per day. 4 Active sennosides (Senokot) 8.6 MG tablet Take 8.6 mg by mouth if needed in the morning and at bedtime. 4 Active Sharps Container (BD Sharps Greige Mender) misc For disposal of needles and lancets 4 Active sodium zirconium cyclosilicate (Lokelma) 10 g packet Take 10 g by mouth if needed each day. 4 Active sulfamethoxazole- trimethoprim (Bactrim DS) 800-160 MG tablet Take 1 tablet by mouth Once per day. 4 Active sodium chloride 0.9 % nebulizer solution USE 3ML VIAL IN NEBULIZER TWICE DAILY FOR 14 DAYS. MIX WITH 10 DROPS OF CIPRODEX SOLUTION. 4 Active tacrolimus (Prograf) 5 MG capsule Take 5 mg by mouth 2 times daily. 4 Active HumaLOG KWIKPEN 100 UNIT/ML injection 12 units prior to meals 4 Active calcium carbonate (Tums) 500 MG chewable tablet Chew 1 tablet (500 mg) 2 times daily. 4 Active cholecalciferol (Vitamin D-3) 25 MCG (1000 UT) capsule Take 1 capsule (25 mcg) by mouth Once per day. 4 Active insulin NPH, Isophane, (HumuLIN N,NovoLIN N) 100 UNIT/ML injection 30 units in the morning 4 Active Active Problems Problem Noted Date Diagnosed Date Heart transplant recipient 02/05/2024 Overview (02/05/2024): #s/p OHT 12/28/23 #s/p impella explant #s/p ICD explant #hx NICM Seizure disorder 02/05/2024 Immunocompromised 02/05/2024 History of OH (myocardial infarction) 10/20/2023 Memory problem 10/20/2023 Shortness of breath 07/23/2023 Overview (11/02/2023): Last Assessment & Plan: Worsening dyspnea, stridor, productive cough over the last week. Chest x-ray imaging reviewed today in clinic with no acute findings. Breath sounds clear. No coughing noted during our visit today, no infectious symptoms reported warranting antibiotics. Notes slight improvement in allergies with the addition of Pulmicort nebs/Mucinex - would like to continue these therapies for now. Etiology of his symptoms most likely multifactorial related to his cardiac disease and tracheal stenosis. Snoring 07/23/2023 Overview (11/02/2023): Last Assessment & Plan: Snoring noted on ROS today, reports episodes of apneas when sleeping raising concern for sleep apnea. Recommend proceeding with a split-night PSG for further evaluation. Will order today. Severe mitral regurgitation 04/24/2023 Chronic obstructive pulmonary disease, unspecifi ed 04/01/2023 Atrial fibrillation with RVR 02/08/2023 History of cardiac arrest 02/08/2023 Chronic combined systolic and diastolic heart fa ilure 02/08/2023 Overview (11/02/2023): Last Assessment & Plan: reports he's up a few pounds from his baseline weight, worsening leg swelling over the last few days. Compliant with Torsemide - taking full dose per 's report Asked patient to call his Sample Grinder regarding his increased weight/swelling for further recommendations. Dysphagia 02/08/2023 Positive colorectal cancer screening using Colog uard test 02/04/2023 Overview (11/03/2023): Negative Colonoscopy 06/2023: urgical Pathology Exam - Order: [id number] Component 4 mo ago Case Report Surgicals Case: [id number] Authorizing Provider: Donny Encarnacion Collected: 2023 0843 MD Eugene Ordering Location: [facility] Received: 2023 1011 Pathologist: Shannan Jacques MD Specimens: A) - Colon, Transverse colon polyps B) - Colon, Splenic Flexure polyps Clinical Information Pre-op Diagnosis: Positive colorectal cancer screening using Cologuard test [R19.5] Final Diagnosis A. Colon, transverse, polypectomy: Fragments of tubular adenoma(s). Negative for high-grade dysplasia or malignancy. B. Colon, splenic flexure, polypectomy: Fragments of tubular adenoma(s). Negative for high-grade dysplasia or malignancy. Gross Description A. Colon. Received in formalin labeled with proper patient identification and designated as transverse colon polyps : Number of fragments: 4 Measurement: 0.2 to 0.5 cm in greatest dimension The specimen is entirely submitted in cassette A1. LCW B. Colon. Received in formalin labeled with proper patient identification and designated as splenic flexure polyp : Number of fragments: 3 fragments of soft tomlin tissue with intermixed hard tomlin- yellow fecal material Measurement: 0.2 to 0.5 cm in greatest dimension The tissue is entirely submitted in cassette B1. LCW Microscopic Description A-B Sections show fragments colonic mucosa with an adenomatous change of the epithelium, forming tubular architecture. No high-grade dysplasia or malignancy is identified. Disclaimer Unless otherwise specified, formalin-fixed paraffin-embedded sections and all routine, IHC, or [place] [address]. Resulting Agency [facility] Specimen Collected: 06/19/23 08:43 Performed by: [facility] Last Resulted: 06/23/23 17:27 Athscl heart disease of nomi ve coronary artery w/o ang pctrs 02/02/2023 Dysphagia, oropharyngeal phase 02/02/2023 Non-ST elevation (NSTEMI) myocardial infarction 02/02/2023 Pneumonia due to other streptococci 02/02/2023 Type 2 diabetes mellitus with hyperglycemia 01/06 Unspecified atrial flutter 02/02/2023 IVY (acute kidney injury) 01/31/2023 Urinary tract infection, site not specified 01/05 Chronic combined systolic and diastolic hrt fail 01/27/2023 Hypertensive heart disease with heart failure Tracheal stenosis 11/14/2022 Overview (11/02/2023): Last Assessment & Plan: Status post bronchoscopy in February 10 which included electrocautery, cryotherapy, balloon dilation, and steroid injection. This resolved his stridor and essentially all pulmonary symptoms. A second look bronchoscopy is planned tomorrow. Patient has done very well since last procedure with no recurrence of symptoms today. Has not needed albuterol since discharge from the hospital. He understands the nature of the procedure and all questions were answered. Coronary artery disease invo lving [place] coronary artery of [place] heart without angina pectoris 11/14/2022 Overview (11/02/2023): Last Assessment & Plan: - nonobstructive disease - continue medical therapy with aspirin, statin, BB - denies angina Stridor 11/13/2022 Overview (11/02/2023): Last Assessment & Plan: Improved after last dilation in April 2023. Mild stridor noted today in clinic Discussed with his primary colliery clerk Dr. Sanches and will work to get him set up for another dilation. Debility 10/09/2022 Nonrheumatic mitral valve regurgitation 09/17/19 23 Overview (11/02/2023): Last Assessment & Plan: - s/p M-NERIS with 3 MitraClips on 05/07/23 - reduced from severe to moderate by echo - with improvement in dyspnea and fatigue - continue routine surveillance VT (ventricular tachycardia) 09/16/2022 Overview (11/02/2023): Last Assessment & Plan: Prior VT arrest in September. ICD in situ. On low-dose beta-alis. No obstructive CAD on cardiac catheterization in September. 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 Subsequently, underwent permanent pacemaker implantation in 04/2020. Otherwise, he has a history of type 2 diabetes as well as hypertension. Echocardiogram had significant LV dysfunction. Following this, underwent diagnostic catheterization that showed LAD disease but no interventions done. Subsequently, his pacemaker [place] dual-chamber [place] [facility] [facility] [place] Systolic dysfunction 03/13/2022 History of bradycardia 03/13/2022 Family history of prostate cancer 03/13/2022 Complete heart block 04/06/2020 Overview (11/02/2023): Added automatically from request for surgery [id number] Last Assessment & Plan: History of biventricular pacemaker that was upgraded to ANALYST defibrillator in September. Device interrogated today with no evidence of ventricular tachycardia/defibrillation, persistent atrial fibrillation/atrial flutter since 10/27/2022, and mild LV threshold rise but otherwise normal function. HTN (hypertension), benign 04/06/2020 Overview (11/02/2023): Last Assessment & Plan: BP stable this AM. Continue medical therapy. Resolved Problems Problem Noted Date Diagnosed Date Resolved Date Hypotension due to drugs 02/16/202304/2023 Overview (11/02/2023): Last Assessment & Plan: Discussed with patient, BP is normal in office after AM meds held. Sent message to Dr. Ravi, given his recurrences of CHF I am concerned about titrating his medications without cardiology input. Advised patient to continue to hold meds for SBPs <80 as instructed per cardiology. Patient's was giving patient water with sea salt to raise BP with his meds. Advised against this practice and take meds as indicated. Patient appears euvolemic in office. Will wait to hear from Dr. Gilliam, advised patient to call cardiology office as well. Aspiration pneumonia 02/08/2023 024 Hyperlactatemia 02/08/2023 11/03/2023 Viral pneumonia 02/08/2023 02/05/2024 Klebsiella pneumoniae (k. pn eumoniae) as the cause of diseases classified elsewhere 01/30/2023 1 04/06/2023 Orthostatic hypotension 01/25/202304/2023 Multiple wounds 10/10/2022 11/03/2023 Elevated troponin 09/16/2022 11/03/2023 Overview (11/02/2023): Last Assessment & Plan: Flat abnormal troponin not consistent with ACS. Agree with primary team, likely related to heart failure and hypoxia (demand ischemia). Patient had nonobstructive disease by cardiac catheterization October 01 -Await echo -Agree with diuresis -Continue aspirin and beta-alis. Unclear why patient not on a statin. If no contraindication recommend starting statin -No need for ischemic evaluation senior living (current) use of o ral hypoglycemic drugs 04/06/2022 11/03/2023 Other specified diseases of upper respiratory tract 04/06/2022 11/03/2023 Presence of automatic (impla ntable) cardiac defibrillator 04/06/2022 02/05/2024 Cardiac pacemaker in situ 03/13/2022 Uncontrolled type 2 diabetes mellitus with hyperglycemia 04/06/2020 02/05/2024 Overview (11/02/2023): Last Assessment & Plan: Encounters Date Type Department Care Team Description 04/28/2024 9:00 AM EST Office Visit [facility] [place] [address] Yoandy Tillman MD COVID-19 (Primary Dx); Rhinovirus; Tracheal stenosis; Type 2 diabetes mellitus with other circulatory complication, without long-term current use of insulin ([facility]) 04/21/[address] [address] Yoandy Tillman MD Results 04/19/[address] [address] Anisa Cadena MA Chat Prep 03/29/[address] [address] Mamie Colby RN Error (VOID this visit) 03/28/[address] [address] Mamie Colby RN 03/23/[address] [address] Yoandy Tillman MD verbal order 03/01/2024 Travel from Last 3 Months Immunizations Name Administration Dates Next Due Influenza High-dose Quadriva lent Preservative Free 01/12/2023 Pfizer Covid-19 Vaccine 12+ 02/05/2024,,12/14/2020 Pneumococcal Conjugate PCV 13 05/30/2021 Pneumococcal Conjugate PCV 20 01/12/2023 SARS-CoV-2, Unspecified 02/25/2022 Tdap 05/30/2021 Social History Tobacco Use Types Packs/Day Years Used Date Smoking Tobacco: Never Smokeless Tobacco: Never Tobacco Cessation:Counseling Given: Not Answered Alcohol Use Standard Drinks/Week Comments Never 0 (1 standard drink = 0.6 oz pur e alcohol) Alcohol Answer Date Recorded Frequency of Alcohol Consumption Not on file 10/20/2023 Average Number of Drinks Not on file 024 Frequency of Binge Drinking Not on file 10/04 Score 0 10/20/2023 Depression Answer Date Recorded Patient Health Questionnaire-9 Score 0 10/20/2023 Patient Health Questionnaire-9 Score 0 10/20/2023 Last PHQ-9: Questionnaire Data Not on file 0 10/20/2023 Housing Stability Answer Date Recorded What is your housing situation today? I do not have housing (Staying with others, in a hotel, in a senior care, living outside on the street, on a beach, in a car, or in a park 10/20/[address] you li ve. Do you have problems with any of the following? None of the above 10/20/2023 Food Insecurity Answer Date Recorded Within the past 12 months, y ou worried that your food would run out before you got money to buy more: Never True 10/20/2023 Within the past 12 months,th e food you bought just didn't last and you didn't have enough money to get more: Never True Transportation Answer Date Recorded In the past 12 months, has l ack of transportation kept you from medical appts, meetings, work or from getting things needed for daily living? No 10/20/2023 Utilities Answer Date Recorded In the past 12 months, has t he electric, gas, oil or water company threatened to shut off services in your home? No 10/20/2023 Depression Answer Date Recorded Patient Health Questionnaire-2 Score 0 10/20/2023 Internet Access Answer Date Recorded Internet Access Q1 No 12/07/2023 Internet Access Q2 I do not want or need it 05/2023 Sex and Gender Information Value Date Recorded Sex Assigned at Male 02/03/2022 10:39 AM EDT Legal Sex Male 10:39 AM EDT Gender Identity Male 02/03/2022 10:39 AM EDT Sexual Orientation Straight 02/03/2022 10 :39 AM EDT Last Filed Vital Signs Vital Sign Reading Time Taken Comments Blood Pressure 137/91 04/28/2024 9:32 AM EST Pulse 102 04/28/2024 9:32 AM EST Temperature 36.9 ??C (98.5 ??F) 04/28/2024 9:32 AM ES T Respiratory Rate 22 04/28/2024 9:32 AM EST Oxygen Saturation 98% 04/28/2024 9:32 AM EST Inhaled Oxygen Concentration - - Weight 60.6 kg (133 lb 9.6 oz) 04/28/2024 9:32 A M EST Height 172.7 cm (5' 8 ) 04/28/2024 9:32 AM EST Body Mass Index 20.31 04/28/2024 9:32 AM EST Plan of Treatment Upcoming Encounters Date Type Department Care Team (Late st Contact Info) Description 07/07/2024 9:00 AM EDT Office Visit [facility] [address] [place] [address] Lena Keene, OD [address] [place] [address] 07/27/2024 10:45 AM EDT Office Visit [facility] [address] [place] [address] Name, MD Yoandy [address] [place] [address] Health Maintenance Due Date Last Done Comments CT Colonography 1955 Colonoscopy 1955 FIT 1955 FOBT 1955 Sigmoidoscopy 1955 Eye Exam 05/15/2023 05/15/2022, 02/0 12/2022, 05/15/2022, Additional history exists Hepatitis B Vaccines (2 of 3 - 19+ 3-dose series) 12/24/2023 11/26/2023 Zoster Vaccines (2 of 2) 01/21/2024 11/26/2023 COVID-19 Vaccine ( season) 2024 02/05/2024, 02/25/2022, 01/10/2021, Additional history exists Diabetes: Hemoglobin A1C 08/04/2024 024, 10/20/2023, 07/01/2022, Additional history exists Alcohol/Substance Use Screening 10/19/2024 10/20/2023 Depression Screening 10/19/2024 10/20/2023, 10/20/19 24 SDOH Screening 10/19/2024 10/20/2023 Lipid Panel 01/25/2025 01/26/2024, 06/05, 06/23/2022, Additional history exists RSV Patients and Patients Aged 60 years or older (1 - Risk 60-74 years 1-dose series) 01/28/2025 Postponed from 2015 (Other System Reasons) Diabetes: Foot Exam 02/04/2025 02/05/2024, Diabetes: Urine Protein Screening 04/14/2025 04/14/2024, 06/23/2022, 05/29/2021 Tobacco Screening 04/28/2025 04/28/2024 Colorectal Cancer Screening 01/21/2026 FIT DNA/Cologuard 01/21/2026 01/21/2023 DTaP/Tdap/Td Vaccines (2 - Td or Tdap) 05/30/2031 05/30/2021 Pneumococcal Vaccine: 50+ Years Completed 01/12/2023, 05/30/2021 Influenza Vaccine Completed 12/16/2023, 01/12/2023 HIB Vaccines Aged Out No longer eligi ble based on patient's age to complete this topic HPV Vaccines Aged Out No longer eligi ble based on patient's age to complete this topic Hepatitis A Vaccines Aged Out No long er eligible based on patient's age to complete this topic Hepatitis C Screening Discontinued IPV Vaccines Aged Out No longer eligi ble based on patient's age to complete this topic Meningococcal Vaccine Aged Out No seth christelle eligible based on patient's age to complete this topic RSV under 20 months Aged Out No longe r eligible based on patient's age to complete this topic Rotavirus Vaccines Aged Out No longer eligible based on patient's age to complete this topic Procedures Procedure Name Priority Date/Time Associated Diagnosis Comments POCT GLUCOSE Routine 04/28/2024 9:34 AM EST Type 2 diabetes mellitus with other circulatory complication, without long-term current use of insulin ([facility]) GLUCOSE, WHOLE BLOOD Routine 04/14/2024 3:27 PM EST TSH W/REFLEX TO FT4 Routine 04/14/2024 1 1:04 AM EST MAGNESIUM Routine 04/14/2024 11:04 AM EST ALBUMIN, RANDOM URINE W/CREATININE Routine 04/14/2024 11:04 AM EST Type 2 diabetes mellitus with other circulatory complication, without long-term current use of insulin ([facility]) COMPREHENSIVE METABOLIC PANEL Routine 04/14/2024 11:04 AM EST On amiodarone therapy Abnormal LFTs GLUCOSE, WHOLE BLOOD Routine 02/24/2024 3:36 PM EST POCT GLYCATED HEMOGLOBIN, TOTAL Routine 02/05/2024 11:44 AM EDT Type 2 diabetes mellitus with other circulatory complication, without long-term current use of insulin ([facility]) LIPID PANEL, STANDARD Routine 06/27/2022 9:53 AM EDT from Last 3 Months or Most Recently Relevant to Health Maintenance Results * (ABNORMAL) POCT Glucose (04/28/2024 9:34 AM EST) Glucose Blood, POC 253(A) 60 - 200 mg/dL QC Media Lot # [id number] Lot# Expiration Date Blood Capillary blood specimen / Unknown 04/28/2024 9:34 AM EST Yoandy Tillman MD POINT OF CARE TEST ENTER/EDIT OR DERABLES Final Result * (ABNORMAL) Glucose, Whole Blood (04/14/2024 3:27 PM EST) Only the most recent of2 resultswithin the time period is included. Glucose, Whole Blood 256(H) 60 - 115 mg/dL [facility] Comment:METER #: [id number] 5Testing performed in the Endocrinology Department [address] , [address], [facility]. 04/14/2024 3:27 PM EST 04/14/2024 3:31 PM EST us Generic External Data Provider LAB BLOOD ORDERAB LES Final Result [facility] [address] [place] [address] [phone] * TSH with Reflex to Free T4 (04/14/2024 11:04 AM EST) TSH reflex Free T4 1.57 0.32 - 4.0 uIU/mL [facility] 04/14/2024 11:0 4 AM EST 04/14/2024 1:11 PM EST us Yoandy Tilmlan MD LAB BLOOD ORDERABLES Final Resul t Performing Organization Address [facility] Co de Phone Number [facility] [address] [place] [phone] * Albumin, Random Urine W/Creatinine (04/14/2024 11:04 AM EST) Creatinine, Urine 109.08 mg/dL [facility] Microalbumin Urine 6.0 mg/L [facility] Microalbum Creatinine Ratio Ur 5.5 <30 ug/mg cr [facility] Comment:Albumin/Creatinine R atio Reference Ranges: Normal: < 30 ug/mg creatinine Microalbuminuria: 30 - 300 ug/mg creatinineClinical Albuminuria: > 300 ug/mg creatinine Urine (Urine, Random) 04/14/2024 11:04 AM EST 04/14/2024 1:04 PM EST us Yoandy Tillman MD LAB URINE ORDERABLES Final Resul t Performing Organization Address [facility] Co de Phone Number [facility] [address] [place] [address] [phone] * Magnesium (04/14/2024 11:04 AM EST) Magnesium 1.6 1.6 - 2.6 mg/dL [facility] 04/14/2024 11:0 4 AM EST 04/14/2024 1:11 PM EST us Yoandy Tillman MD LAB BLOOD ORDERABLES Final Resul t Performing Organization Address [facility]/ZIP Co de Phone Number [facility] [address] [place] [address] [phone] * (ABNORMAL) Comprehensive Metabolic Panel (04/14/2024 11:04 AM EST) Sodium 142 135 - 145 mmol/L [facility] Potassium 4.2 3.3 - 5.1 mmol/L [facility] Chloride 105 96 - 108 mmol/L [facility] Carbon Dioxide 30(H) 22 - 29 mmol/L [facility] Anion Gap 11(L) 12 - 20 [facility] Urea Nitrogen (BUN) 13 9 - 16 mg/dL [facility] Creatinine, Serum 0.88 0.5 - 1.4 mg/dL [facility] Estimated Glomerular Filt Rate >60 [facility] Comment:Chronic Kidney Disea se: Estimated GFR < 60 mL/min/1.30h3Xknnfn Kidney Disease: Estimated GFR < 15 mL/min/1.73m2 Glucose 180(H) 60 - 115 mg/dL [facility] Calcium 9.6 8.4 - 10.2 mg/dL [facility] Bilirubin, Total 0.5 0.0 - 1.0 mg/dL [facility] Aspartate Amino Transferase 27 5 - 37 U/L [facility] Alanine Aminotransferase 26 0 - 40 U/L [facility] Total Protein 6.6 6.5 - 8.0 g/dL [facility] Albumin Level 4.2 3.5 - 5.0 g/dL [facility] Alkaline Phosphatase 51 39 - 117 U/L [facility] Blood Venous blood specimen / Unknown 04/14/2024 11:04 AM EST 04/14/2024 1:11 PM EST us Yoandy Tillman MD LAB BLOOD ORDERABLES Final Resul t [facility] [address] [place] [address] [phone] * (ABNORMAL) POCT HGB A1C (02/05/2024 11:44 AM EDT) Hemoglobin A1C 6.3(A) 4.0 - 6.0 % QC Media Lot # [id number] Lot# Expiration Date ,637,[id number] Blood 02/05/2024 11:4 4 AM EDT Yoandy Tillman MD POINT OF CARE TEST ENTER/EDIT OR DERABLES Final Result * Lipid Panel, Standard (06/27/2022 9:53 AM EDT) Triglycerides 84 mg/dL [facility] Comment:Desirable Triglyceri de: less than 150 mg/dLBorderline High Triglyceride 150-199 mg/dLHigh Triglyceride: 200-499 mg/dLVery High Triglyceride: greater than or equal to 5OO mg/dL Cholesterol 154 mg/dL [facility] Comment:Desirable Cholestero l: less than 200 mg/dLBorderline High Cholesterol: 200-239 mg/dLHigh Cholesterol: greater than 239 mg/dL LDL Cholesterol Calculated 104 mg/dl [facility] Comment:Desirable LDL: less than 100 mg/dLNear Optimal/Above Optimal LDL: 110- 129 mg/dLBorderline High LDL: 130-159 mg/dLHigh LDL: 160-189 mg/dLVery High LDL: greater than or equal to 190 mg/dL HDL Cholesterol 34 mg/dL [facility] Comment:Desirable HDL: great er than 40 mg/dL Note: This HDL assay may give artificially low results in patients with liver disease. 06/27/2022 9:53 AM EDT 06/27/2022 9:53 AM EDT [facility] External Provider LAB BLO OD ORDERABLES Final Result [facility] [address] [place] [phone] from Last 3 Months or Most Recently Relevant to Health Maintenance Insurance [employer] FULL MEDICARE Member Subscriber Plan / Payer (Ef fective 2023-Present) Name:Celeste Torolore Hines Member ID:[id number] Relation to Subscriber:Self Name:Margarita AvilaMatthew Subscriber ID:[id number] Payer ID:[id number] Group ID:Not on file Type:Medicare Address: [facility] [address] [address] [facility] [address] [place] [address] [address] [place] [id number] Care Teams Field Service Coordinator Relationship Specialty Start Date End Date Name, MD Yoandy [address] [place] [address] PCP - General Internal Medicine 10/19/23 [facility] 01/19/24
--- OUTSIDE RECORDS SUMMARY | 2024-05-20 12:21 | XMS_ITS | Encounter Summary ---
Author Organization [employer] Address [address] [place] [address] Care Team Providers Care Window Systems Administrator Name Role Phone Name, Yoandy LUOG Primary Care Provider [phone] Reason for Visit * Reason Onset Date Comments Results 04/21/2024 Encounter Details Date Type Department Care Team ([facility] st Contact Info) Description 04/21/2024 Telephone [facility] MEDICINE [address] [place], [place] [phone] Name, MD Yoandy [address] [place] [address] Results Social History Tobacco Use Types Packs/Day Years Used Date Smoking Tobacco: Never Smokeless Tobacco: Never Alcohol Use Standard Drinks/Week Comments Never 0 [...] with others, in a hotel, in a intermediate, living outside on the street, on a [...] Orientation Straight 02/03/2022 10 :39 AM EDT documented as of this encounter Miscellaneous Notes * Telephone Encounter - Mamie Colby RN - 04/21/2024 4:52 PM EST Tc to [facility] in regards fro request to have labs faxed over. Computer Architect reports we could fax over most recent labs and will call back for any further request. Labs faxed, confirmation received and placed in medical records scanning bin. * Telephone Encounter - Keith Hicks - 04/21/2024 8:58 AM EST Tc from Madiha in [facility] calling in regards to pt results to some labs the pt had done. Madiha is requesting for results to be fax over. Madiha Contact: Madiha documented in this encounter Plan of Treatment Upcoming Encounters Date Type Department Care Team (Late st Contact Info) Description 07/07/2024 9:00 AM EDT Office Visit [facility] OPTOMETRY [address] [place] [address] Lena Keene, OD [address] [place] [address] 07/27/2024 10:45 AM EDT Office Visit [facility] MEDICINE [address] [place] [address] Name, MD Yoandy [address] [place] [address] documented as of this encounter Visit Diagnoses Not on filedocumented in this encounter Additional Health Concerns Assessment Noted Time PHQ-9 Depression Total Score: 0 10/20/19 24 4:12 PM EDT documented as of this encounter Care Teams Window Systems Administrator Relationship Specialty Start Date End Date Name, MD Yoandy [address] [place] [address] PCP - General Internal Medicine 10/19/23 [facility] 01/19/24 documented as of this encounter
--- OUTSIDE RECORDS SUMMARY | 2024-05-20 12:21 | XMS_ITS | Encounter Summary ---
Author Organization [employer] Address [address] [place] [address] Care Team Providers Care Material Control Specialist Name Role Phone Name, Yoandy LUGO Primary Care Provider [phone] Reason for Visit * Reason Comments Follow-up Encounter Details Date Type Department Care Team ([facility] st Contact Info) Description 04/28/2024 9:00 AM EST Office Visit [facility] MEDICINE [address] [place], [place] [phone] Name, MD Yoandy [address] [place] [address] COVID-19 (Primary Dx); Rhinovirus; Tracheal stenosis; Type 2 diabetes mellitus with other circulatory complication, without long-term current use of insulin ([facility]) Social History Tobacco Use Types Packs/Day Years [...] with others, in a hotel, in a longterm, living outside on the street, on a [...] AM EDT documented as of this encounter Last Filed Vital Signs Vital Sign Reading [...] Mass Index 20.31 04/28/2024 9:32 AM EST documented in this encounter Progress Notes * Yoandy Tillman, - 04/28/2024 9:00 AM EST Subjective Patient ID: Matthew Avila is a 68 y.o. male who presents for Follow-up. Patient comes for a follow-up visit and he feels well. He was recently admitted to [facility] with respiratory infection due to COVID and rhinovirus. The patient is chronically immunosuppressed and hasprevious history of heart transplant. The patient did not require intubation or oxygen supplementation. By the time of his visit he is back to his usual baseline. He has upcoming appointment with keri robertson at [facility] to have a bronchoscopy because of a previous history of tracheal stenosis. His blood sugar has remained well-controlled. His insulin is managed at [facility] endocrinology. His medications remain unchanged during his recent hospitalization except for a brief increase of his prednisone dose. Review of Systems Constitutional: Negative for chills, fatigue and fever. HENT: Negative for sore throat. Respiratory: Negative for cough, chest tightness and shortness of breath. Cardiovascular: Negative for chest pain, palpitations and leg swelling. Gastrointestinal: Negative for abdominal pain and blood in stool. Visit Vitals BP (!) 137/91 (BP Location: Right arm, Patient Position: Sitting, BP Cuff Size: Adult) Pulse 102 Temp 98.5 ??F (36.9 ??C) (Oral) Resp 22 Ht 5' 8 (1.727 m) Wt 133 lb 9.6 oz (60.6 kg) SpO2 98% BMI 20.31 kg/m?? Smoking Status Never BSA 1.71 m?? Objective Physical Exam Constitutional: Appearance: Normal appearance. Cardiovascular: Rate and Rhythm: Normal rate and regular rhythm. Pulmonary: Effort: Pulmonary effort is normal. No respiratory distress. Breath sounds: No wheezing, rhonchi or rales. Abdominal: Palpations: Abdomen is soft. Tenderness: There is no abdominal tenderness. Musculoskeletal: Right lower leg: No edema. Left lower leg: No edema. Neurological: Mental Status: He is alert. Current Outpatient Medications on File Prior to Visit Medication Sig Dispense Refill amoxicillin (Amoxil) 500 MG capsule TAKE FOUR CAPSULES BY MOUTH ONE HOUR BEFORE DENTAL WORK. aspirin 81 MG chewable tablet Chew 1 tablet (81 mg) Once daily. 90 tablet 0 Blood Glucose Monitoring Suppl (FreeStyle glucose monitoring) kit 1 each if needed. Test 1 time by intradermal route everyday budesonide (Pulmicort) 0.5 MG/2ML nebulizer solution USE 1 VIAL IN NEBULIZER TWICE DAILY RINSE MOUTH AFTER USE calcium carbonate (Tums) 500 MG chewable tablet Chew 1 tablet (500 mg) 2 times daily. cholecalciferol (Vitamin D-3) 25 MCG (1000 UT) capsule Take 1 capsule (25 mcg) by mouth Once per day. FREESTYLE LITE test strip TEST BLOOD SUGAR EVERY DAY 100 strip 11 HumaLOG KWIKPEN 100 UNIT/ML injection 12 units prior to meals insulin NPH, Isophane, (HumuLIN N,NovoLIN N) 100 UNIT/ML injection 30 units in the morning metoprolol succinate XL (Toprol-XL) 25 MG 24 hr tablet Take 0.5 tablets by mouth Once per day. Do not crush or chew. mexiletine (Mexitil) 150 MG capsule Take 1 capsule (150 mg) by mouth every 8 (eight) hours. 90 capsule 11 mycophenolate (Cellcept) 500 MG tablet Take 1,000 mg by mouth 2 times daily. nystatin (Mycostatin) 657334 UNIT/ML suspension Swish and swallow 500,000 Units 4 times daily. pantoprazole (ProtoNix) 40 MG EC tablet Take 40 mg by mouth before breakfast. pravastatin (Pravachol) 40 MG tablet Take 40 mg by mouth at bedtime. predniSONE (Deltasone) 10 MG tablet Take 30 mg by mouth Once per day. sennosides (Senokot) 8.6 MG tablet Take 8.6 mg by mouth if needed in the morning and at bedtime. Sharps Container (BD Sharps Restaurant Maintenance Technician) [facility] For disposal of needles and lancets sodium chloride 0.9 % nebulizer solution USE 3ML VIAL IN NEBULIZER TWICE DAILY FOR 14 DAYS. MIX WITH 10 DROPS OF CIPRODEX SOLUTION. sodium zirconium cyclosilicate (Lokelma) 10 g packet Take 10 g by mouth if needed each day. spironolactone (Aldactone) 25 MG tablet Take 1 tablet by mouth Once per day. sulfamethoxazole-trimethoprim (Bactrim DS) 800-160 MG tablet Take 1 tablet by mouth Once per day. tacrolimus (Prograf) 5 MG capsule Take 5 mg by mouth 2 times daily. torsemide (Demadex) 10 MG tablet Take 1 tablet (10 mg) by mouth Once per day. 30 tablet 1 No current facility-administered medications on file prior to visit. Assessment/Plan Diagnoses and all orders for this visit: COVID-19 Comments: Patient is back to his usual baseline. He is encouraged to continue using his medications as prescribed. I have suggested the patient to start masking when he is around crowds to prevent respiratory infections. He is encouraged to avoid sweets and soda. He is reminded to keep his upcoming appointment with pulmonary for repeat bronchoscopy. 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, without long-term current use of insulin ([facility]) - POCT Glucose documented in this encounter Plan of Treatment Upcoming Encounters Date Type Department Care Team (Late st Contact Info) Description 07/07/2024 9:00 AM EDT Office Visit [facility] OPTOMETRY [address] [place], [place] [id number] Lena Keene, OD [address] [place] [address] 07/27/2024 10:45 AM EDT Office Visit [facility] MEDICINE [address] [place] [address] Yoandy Tillman MD [address] [place] [address] documented as of this encounter Procedures Procedure Name Priority Date/Time Associated Diagnosis Comments POCT GLUCOSE Routine 04/28/2024 9:34 AM EST Type 2 diabetes mellitus with other circulatory complication, without long-term current use of insulin ([facility]) documented in this encounter Results * (ABNORMAL) POCT Glucose (04/28/2024 9:34 AM EST) [facility] Glucose Blood, POC 253(A) 60 - 200 mg/dL QC Media Lot # [id number] Lot# Expiration Date Blood Capillary blood specimen / Unknown 04/28/2024 9:34 AM EST Yoandy Tillman MD POINT OF CARE TEST ENTER/EDIT OR DERABLES Final Result documented in this encounter Visit Diagnoses Diagnosis COVID-19- Primary Rhinovirus Rhinovirus infection in conditions classified elsewhere and of unspecified site Tracheal stenosis Other diseases of trachea and bronchus Type 2 diabetes mellitus with other circulatory complication, without long-term current use of insulin ([facility]) documented in this encounter Additional Health Concerns Assessment Noted Time PHQ-9 Depression Total Score: 0 10/20/19 24 4:12 PM EDT documented as of this encounter Care Teams Material Control Specialist Relationship Specialty Start Date End Date Name, MD Yoandy [address] [place] [address] PCP - General Internal Medicine 10/19/23 [facility] documented as of this encounter
--- OUTSIDE RECORDS SUMMARY | 2024-05-20 12:21 | XMS_ITS | Encounter Summary ---
Author Organization [facility] Address [address] [place] [address] Care Team Providers Care Coal Shoveler Name Role Phone Name, Yoandy LUGO Primary Care Provider [phone] Name, Yoandy LUGO Primary Care Provider [phone] Reason for Visit * Reason Onset Date Comments FYI 10/01/2022 Encounter Details Date Type Department Care Team ([facility] st Contact Info) Description 10/01/2022 Telephone [facility] MEDICINE [address] [place], [place] [phone] Name, MD Yoandy [address] [place] [address] FYI Social History Tobacco Use Types Packs/Day Years Used Date Smoking Tobacco: Never Smokeless Tobacco: Never Alcohol Use Standard Drinks/Week Comments Never 0 (1 standard drink = 0.6 oz pur e alcohol) Depression Answer Date Recorded Patient Health Questionnaire-2 Score 0 03/24/2022 Sex and Gender Information Value Date Recorded Sex Assigned at Male 02/03/2022 10:39 AM EDT Legal Sex Male 10:39 AM EDT Gender Identity Male 02/03/2022 10:39 AM EDT Sexual Orientation Straight 02/03/2022 10 :39 AM EDT documented as of this encounter Miscellaneous Notes * Telephone Encounter - Marty Caldwell - 10/01/2022 3:26 PM EDT Tc from [facility] facility that patient during their vacation in [place] had two Heart Attacks and is currently hospitalized since 09/15/2022 at [facility] documented in this encounter Plan of Treatment Upcoming Encounters Date Type Department Care Team (Late st Contact Info) Description 07/07/2024 9:00 AM EDT Office Visit [facility] OPTOMETRY [address] [place] [address] Lena Keene, OD [address] [place] [address] 07/27/2024 10:45 AM EDT Office Visit [facility] MEDICINE [address] [place] [address] Name, MD Yoandy [address] [place] [address] documented as of this encounter Visit Diagnoses Not on filedocumented in this encounter Care Teams Coal Shoveler Relationship Specialty Start Date End Date Name, MD Yoandy [address] [place] [address] PCP - General Family Medicine 01/18/21 06/04/23 Name, MD Yoandy [address] [place] [address] PCP - General Internal Medicine 10/19/23 [facility] 01/19/24 documented as of this encounter
[2024-05-20 13:48] LABS: Alanine Aminotransferase 17 U/L (0-40); Alkaline Phosphatase 53 U/L (39-117); Anion Gap 11 (12-20); Aspartate Amino Transferase 13 U/L (5-37); Bilirubin Total 0.4 mg/dL (0.0-1.0); Blood Urea Nitrogen 10 mg/dL (9-16); Carbon Dioxide 25 mmol/L (22-29); Chloride 108 mmol/L (96-108); Estimated Glomerular Filt Rate > 60; Glucose Random 114 mg/dL (60-115); Potassium 3.6 mmol/L (3.3-5.1); Sodium 140 mmol/L (135-145); Total Protein 6.4 g/dL (6.5-8.0)
== END 2024-05-20 11:34 | disposition home or self-care (01) ==
LOC: HO.HHCL 11:33
PROVIDERS: Visit Provider Internal Medicine Geriatric Medicine
DX: R79.89 Other specified abnormal findings of blood chemistry (principal); Z79.899 Other long term (current) drug therapy
CPT/HCPCS: 36415; 80053

== ENCOUNTER 2024-05-26 10:57 | Outpatient (AMB) | payer MEDICARE, SELFPAY ==
[2024-05-26 10:59] VITALS: BP 110/80; PULSE 98; O2SAT 99; BMI 21.4
--- NOTE | 2024-05-26 10:59 | MHC.OFFVIS ---
Vital Signs 05/26/24 10:59 Height 5 ft 7 in Weight 136 lb 14.513 oz BMI 21.4 BP 110/80 Blood Pressure Location Rt brachial Position Sitting Pulse 98 Pulse Source Pulse Oximeter Pulse Oximetry (%) 99 Oxygen Delivery Method Room Air Intake Visit Reasons: DM follow up A1C Intake Note: Patient presents today for a follow-up on Type 2 Diabetes Mellitus & A1c check-up: Last Diabetic eye exam was on: DUE Last Podiatry exam was on: Does not see a Floral Arranger Most recent HbA1c: 8.0%, 05/26/2024 Random Glucose- 138 mg/dL, Today Dehydrogenation Converter Operator Required: Yes Dehydrogenation Converter Operator Language: Medical Staff Services Coordinator Services: Dehydrogenation Converter Operator Present Dehydrogenation Converter Operator Name: TOMMIE Silverman/BENITO MITCHELL Information Interpreted: non-clinical & clinical Accompanied by: Daughter Allergies No Known Allergies [No Known Allergies*] Allergy (Verified 05/26/24 11:00) HPI Comments Details: 68-year-old male presenting for diabetic follow up Medical history: Systemic sarcoidosis and end-stage NICM status post OHT on 12/28/2023 at [facility] on chronic immunosuppression. On prednisone taper-currently 5mg daily. Was increased last month for COVID infection PCP: Yoandy Tillman MD Glucometer: One touch Seen by PCP 02/05/2024. He is currently on 09/16/11 admelog and glargine 30 units. One touch downloaded-average 137, range 49-296. The one low was for delayed lunch. Holding mealtime if under 100. As noted above he was increased prednisone during covid. POC A1C today is 8.0%. Patient would like to check at lab Eye exam-scheduled for June 2024 Podiatry-does not see ROS CONSTITUTIONAL: Denies weight loss, fever and chills. HEENT: Denies changes in vision and hearing. RESPIRATORY: Denies SOB and cough. CV: Denies palpitations and CP GI: Denies abdominal pain, nausea, vomiting and diarrhea. : Denies dysuria and urinary frequency. MSK: Denies new myalgia and joint pain. SKIN: Denies rash and pruritus. NEUROLOGICAL: Denies headache PSYCHIATRIC: Denies recent changes in mood. PHYSICAL EXAM: GENERAL: Alert and oriented x 3. NAD EYES: EOMI. Anicteric. HENT: Moist mucous membranes. No scleral icterus. No cervical lymphadenopathy. LUNGS: Clear to auscultation bilaterally. CARDIOVASCULAR: Regular rate and rhythm. No murmur. No JVD. ABDOMEN: Soft, non-tender +bs EXTREMITIES: No edema. Non-tender. SKIN: No rashes or lesions. Warm. NEUROLOGIC: No focal neurological deficits. CN II-XII grossly intact PSYCHIATRIC: Cooperative. Appropriate mood and affect [facility] Medical History Diabetes Pacemaker Surgical History Hx of heart transplant History of cardiac catheterization (~10/2021) History of cataract surgery Family History Father Diabetes Heart problem Brother Heart attack Social History Alcohol intake: never Patient Tobacco Use Status: Never used Tobacco Physical Exam Vital Signs: Last Vital Signs Pulse 98 05/26/24 10:59 BP 110/80 05/26/24 10:59 Pulse Ox 99 05/26/24 10:59 Oxygen Delivery Method Room Air 05/26/24 10:59 BMI result Body Mass Index 21.4 Results AMB Hemoglobin A1c AMB Hemoglobin A1c 8.0 % Last Edit by TOMMIE Silverman on 05/26/24 11:13 Assessment & Plan Assessment & Plan (1) Type 2 diabetes mellitus with unspecified complications: Code(s): E11.8 - Type 2 diabetes mellitus with unspecified complications Category: Medical Plan: Fairly well controlled. A1C appears high on POC but was also on recent prednisone. Will continue current dosing. Hold mealtime insulin if BG <100. Get CGM given insulin use, neuropathy, and hypoglycemia (2) Hypoglycemia: Code(s): E16.2 - Hypoglycemia, unspecified Category: Medical Plan: CGM ordered. Avoid delayed meals Orders: Orders Hemoglobin A1c 3 Months E11.8 - Type 2 diabetes mellitus with unspecified complications AMB Hemoglobin A1c Today E11.8 - Type 2 diabetes mellitus with unspecified complications Hemoglobin A1c Today E11.8 - Type 2 diabetes mellitus with unspecified complications Medications: [employer] Jaswinder 3 Esbon (blood-glucose meter,continuous) As directed 1 ea 0RF NS E11.8 - Type 2 diabetes mellitus with unspecified complications, Z79.4 - ferry terminal supervisor (current) use of insulin FreeStyle Jaswinder 3 Plus Sensor (blood-glucose sensor) every 14 days 6 ea 3RF NS E11.8 - Type 2 diabetes mellitus with unspecified complications, Z79.4 - group home (current) use of insulin FreeStyle Jaswinder 3 Plus Sensor (blood-glucose sensor) every 14 days 6 ea 3RF NS E11.8 - Type 2 diabetes mellitus with unspecified complications, Z79.4 - group home (current) use of insulin FreeStyle Jaswinder 3 Esbon (blood-glucose meter,continuous) As directed 1 ea 0RF NS E11.8 - Type 2 diabetes mellitus with unspecified complications, Z79.4 - group home (current) use of insulin Coding Level of Care Code Est Pt Level 4 (67293) Complex EM visit Add On G2211 Diagnoses Type 2 diabetes mellitus with unspecified complications E11.8 Hypoglycemia E16.2
[2024-05-26 11:13] LABS: Glucose, Whole Blood 138 mg/dL (60-115)
--- OUTSIDE RECORDS SUMMARY | 2024-05-26 12:13 | XMS_ITS | Data Portability ---
Author Organization [place] - [facility] Former[facility], Allergy Address [address] [facility] [address] [place] [address] Care Team Providers Care Uniforms Sales Representative Name Role Phone NAME, SKY Referring Provider Assessment Encounter Date Assessment Date Assessment LastModified by Organization Details LastModified Time 02/25/2024 02/25/2024 68-year-old male presents today for evaluation of stridor and tracheal stenosis. Symptoms seem to worsen about 3 weeks ago following dilation in November. Of note he had heart transplant about 2 months ago at [facility]. Flexible laryngoscopy did not reveal any [...] t. Thank you. 2023 Tarsha loco ta15 [facility], [address] , [place], [address], 03/25/2024 09:56:34 Procedures None recorded. Surgeries None recorded. Imaging None recorded. Medication Orders None recorded. Patient TargetsNo targets recorded. Patient InstructionsNo instructions recorded. Reason for Referral Cake Knocker Referral for T gaby stenosis following tracheostomy Established patient of Dr Alegre. Needs follow up appt/repeat endoscopy. Patient has recent heart transplant. Thank you. Referring Physician: Sandip Regalado, Otolaryngology, Encounter Date: 02/25/2024 Problems Name Problem SNOMED Code Status Onset Date Resolution Date Notes Provider Name and Address Organization Details Recorded Time Tracheal stenosis following tracheostomy 80425508 Active 2023 SANDIP REGALADO MD [address] [place] [address], [place], [phone], [facility] 4 12:10:02 Sensorineural hearing loss of bilateral ears 940535384 Active 2024 JACQUE LUGO [address] [place] [address], [place], [phone], [facility] 5 16:02:33 Problem Notes None recorded. Procedures Surgical History Date Name Laterality Status Provider Name and Address Organization Details Recorded Time 04/15/19 25 Comp Audio with Tymps (36665 & 09566) completed JACQUE LUGO [address] [place] [address],[address], [phone], [facility] 04/15/2024 16:02:37 02/25/20 24 Fiberoptic Laryngoscopy (Comprehensive) completed SANDIP REGALADO MD [address] [place] [address], [phone], [facility] 02/25/2024 12:11:38 Imaging Results None recorded. [...] Not Available Not Available Comfort EZ Pen [place] 32 gauge x active Not Available Not [...] Updated DateTime 02/25/2024 172.72 cm 26.8 kg/m2 12676.26 g Manda Ly [place] - [facility] 02/25/2024 11:47:14 Date Recorded Body height Body mass index (BMI) Body weight Provider Name and Address Organization Details Last Updated DateTime 04/15/2024 172.72 cm 20.2 kg/m2 26817.79 g Manda Ly [place] - [facility] 04/15/2024 16:28:34 Social History None recorded. Functional Status None recorded. Mental Status None recorded. Family History Nothing Reported. Medical History Condition Response Diabetes Y Heart Problems Y Hyperlipidemia Y Past Encounters Encounter ID Performer Location Encounter Start Date Encounter Closed Date Diagnosis/Indication Diagnosis SNOMED-CT Code Diagnosis ICD10 Code Diagnosis Note [id number] SANDIP REGALADO MD [facility] [address] [address] 02/25/2024 11:26:24 02/25/2024 12:26:39 Tracheal stenosis following tracheostomy 56202367 J95.03 [id number] SANDIP REGALADO MD [facility] [address] [address] 04/15/2024 15:37:29 04/15/2024 16:57:22 Sensorineural hearing loss of bilateral ears 992164055 H90.3 68 yo M with a history [...] and there was likely some irritation here. [id number] JACQUE LUGO [facility] [address] [address] 04/15/2024 15:59:22 04/18/2024 07:41:17 Sensorineural hearing loss of bilateral ears 364037214 H90.3 Right Ear:Normal hearing through 1.5K Hz [...] Name 02/25/2024 2 [place] [id number] Matthew L Avila [id number] Matthew Donny Avila Avila 02/25/2024 1 [place] Matthew Avila Avila [id number] Matthew Donny Avila Avila 04/15/2024 2 [place] [id number] Matthew L Avila [id number] Matthew Donny Avila Avila 04/15/2024 1 [place] Matthew Avila Avila [id number] Matthew Donny Avila Avila 04/15/2024 2 [place] [id number] Matthew L Avila [id number] Matthew Donny Avila Avila 04/15/2024 1 [place] Matthew Avila Avila [id number] Matthew Donny Avila Avila Notes Date Note Type Note Provider Name and Address Organization Details Recorded Time 02/25/2024 text/html 68 yo M here for tracheal stenosis.Wheezing, had had 5 bronchoscopies. Scarring in the trachea following tracheostomy due to intensive care after heart attack, last year 2022 in [place], was on vacation. Coughing a lot. Had [...] corrected for lung volume SANDIP REGALADO MD [address] [place] [address], [phone], [place] - [facility] [place] 02/26/2024 10:58:54 04/15/2024 text/html Starting feeling numb on the side of the ear right after his surgeryTTP over jaw Has seen Dr. Walton. SANDIP REGALADO MD [address] [place] [address], [phone], [place] - [facility] 04/18/2024 07:25:33
--- OUTSIDE RECORDS SUMMARY | 2024-05-26 12:13 | XMS_ITS | Clinical Summary ---
Author Organization [employer] Address [address] [place] [address] Care Team Providers Care Sports Betting Manager Name Role Phone Name, Yoandy LUGO Primary Care Provider [phone] Allergies Active Allergy Reactions Criticality Noted Date [...] 2 times daily. 10/08/ Active nystatin (Mycostatin) 557527 UNIT/ML suspension Swish and swallow 500,000 Units [...] bedtime. 4 Active [employer] (BD [employer]) misc For disposal of needles and lancets [...] Seizure disorder 02/05/2024 Immunocompromised 02/05/2024 History of AR (myocardial infarction) 10/20/2023 Memory problem 10/20/2023 Shortness [...] 's report Asked patient to call his Strategic Development Manager regarding his increased weight/swelling for further recommendations. Dysphagia 02/08/2023 Positive colorectal cancer screening using Colog uard test 02/04/2023 Overview (11/03/2023): Negative Colonoscopy 06/2023: urgical Pathology Exam - Order: [id number] Component 4 mo ago Case Report Surgicals Case: [id number] Authorizing Provider: Donny Encarnacion Collected: 2023 0843 MD Eugene Ordering Location: [facility] GI Lab Received: 2023 1011 Pathologist: Shannan [...] IHC, or special [place] [address]. Resulting Agency [facility] Specimen Collected: 06/19/23 08:43 Performed by: [facility] Last Resulted: 06/23/23 17:27 Athscl heart [...] were answered. Coronary artery disease invo lving chenega coronary artery of [place] heart without angina pectoris 11/14/2022 Overview (11/02/2023): Last Assessment & Plan: - nonobstructive disease - continue medical therapy with aspirin, statin, BB - denies angina Stridor 11/13/2022 Overview (11/02/2023): Last Assessment & Plan: Improved after last dilation in April 2023. Mild stridor noted today in clinic Discussed with his primary supervisor assembly stock Dr. Sanches and will work to get [...] anxiety 04/06/2022 Ventricular tachycardia, unspecified 04/06/2022 Other tank terminal gauger (current) drug therapy 3 Type 2 diabetes [...] upgraded from dual-chamber to biventricular device at [facility] 03/2022. Follows at [facility] cardi Systolic dysfunction 03/13/2022 History of bradycardia 03/13/2022 Family history of prostate cancer 03/13/2022 Complete heart block 04/06/2020 Overview (11/02/2023): Added automatically from request for surgery [id number] Last Assessment & Plan: History of biventricular pacemaker that was upgraded to [employer] defibrillator in September. Device interrogated today with [...] starting statin -No need for ischemic evaluation correction (current) use of o ral hypoglycemic drugs 04/06/2022 11/03/2023 Other specified diseases of upper respiratory tract 04/06/2022 11/03/2023 Presence of automatic (impla ntable) cardiac defibrillator 04/06/2022 02/05/2024 Cardiac pacemaker in situ 03/13/2022 Uncontrolled type 2 diabetes mellitus with hyperglycemia 04/06/2020 02/05/2024 Overview (11/02/2023): Last Assessment & Plan: Encounters Date Type Department Care Team Description 04/28/2024 9:00 AM EST Office Visit [facility] [place] [address] Yoandy Tillman MD COVID-19 (Primary Dx); Rhinovirus; Tracheal stenosis; Type 2 diabetes mellitus with other circulatory complication, without long-term current use of insulin ([facility]) 04/21/[address] [address] Yoandy Tillman MD Results 04/19/[address] [address] Anisa Cadena MA Chat Prep 03/29/[address] [address] Mamie Colby RN Error (VOID this visit) 03/28/[address] [address] Mamie Colby RN 03/23/[address] [address] Yoandy Tillman MD verbal order 03/01/2024 Travel [...] with others, in a hotel, in a jail, living outside on the street, on a [...] Description 07/07/2024 9:00 AM EDT Office Visit [facility] OPTOMETRY [address] [place] [address] Lena Keene, OD [address] [place] [address] 07/27/2024 10:45 AM EDT Office Visit [facility] MEDICINE [address] [place] [address] Name, MD Yoandy [address] [place] [address] Health Maintenance Due Date Last Done Comments [...] Procedure Name Priority Date/Time Associated Diagnosis Comments GLUCOSE, WHOLE BLOOD Routine 05/26/2024 11:06 AM EST COMPREHENSIVE METABOLIC PANEL Routine 05/20/2024 11:35 AM EST POCT GLUCOSE Routine 04/28/2024 9:34 AM EST Type 2 diabetes mellitus with other circulatory complication, without long-term current use of insulin ([facility]) GLUCOSE, WHOLE BLOOD Routine 04/14/2024 3:27 PM EST TSH W/REFLEX TO FT4 Routine 04/14/2024 1 1:04 AM EST MAGNESIUM Routine 04/14/2024 11:04 AM EST ALBUMIN, RANDOM URINE W/CREATININE Routine 04/14/2024 11:04 AM EST Type 2 diabetes mellitus with other circulatory complication, without long-term current use of insulin ([facility]) COMPREHENSIVE METABOLIC PANEL Routine 04/14/2024 11:04 AM EST On amiodarone therapy Abnormal LFTs GLUCOSE, WHOLE BLOOD Routine 02/24/2024 3:36 PM EST POCT GLYCATED HEMOGLOBIN, TOTAL Routine 02/05/2024 11:44 AM EDT Type 2 diabetes mellitus with other circulatory complication, without long-term current use of insulin ([facility]) LIPID PANEL, STANDARD Routine 06/27/2022 9:53 AM EDT from Last 3 Months or Most Recently Relevant to Health Maintenance Results * (ABNORMAL) Glucose, Whole Blood (05/26/2024 11:06 AM EST) Only the most recent of3 resultswithin the time period is included. Glucose, Whole Blood 138(H) 60 - 115 mg/dL [facility] Comment:METER #: [id number] Testing performed in the Endocrinology Department [address], [address], [facility]. 05/26/2024 11:0 6 AM EST 05/26/2024 11:13 AM EST us Generic External Data Provider LAB BLOOD ORDERAB LES Final Result [facility] [address] [place] [phone] * (ABNORMAL) Comprehensive Metabolic Panel (05/20/2024 11:35 AM EST) Only the most recent of2 resultswithin the time period is included. Sodium 140 135 - 145 mmol/L [facility] Potassium 3.6 3.3 - 5.1 mmol/L [facility] Chloride 108 96 - 108 mmol/L [facility] Carbon Dioxide 25 22 - 29 mmol/L [facility] Anion Gap 11(L) 12 - 20 [facility] Urea Nitrogen (BUN) 10 9 - 16 mg/dL [facility] Creatinine, Serum 0.93 0.5 - 1.4 mg/dL [facility] Estimated Glomerular Filt Rate >60 [facility] Comment:Chronic Kidney Disea se: Estimated GFR < 60 mL/min/1.27l2Knbxyf Kidney Disease: Estimated GFR < 15 mL/min/1.73m2 Glucose 114 60 - 115 mg/dL [facility] Calcium 9.0 8.4 - 10.2 mg/dL [facility] Bilirubin, Total 0.4 0.0 - 1.0 mg/dL [facility] Aspartate Amino Transferase 13 5 - 37 U/L [facility] Alanine Aminotransferase 17 0 - 40 U/L [facility] Total Protein 6.4(L) 6.5 - 8.0 g/dL [facility] Albumin Level 4.0 3.5 - 5.0 g/dL [facility] Alkaline Phosphatase 53 39 - 117 U/L [facility] 05/20/2024 11:3 5 AM EST 05/20/2024 1:10 PM EST us Yoandy Tillman MD LAB BLOOD ORDERABLES Final Resul t [facility] [address] [place] [phone] * (ABNORMAL) POCT Glucose (04/28/2024 9:34 AM EST) Glucose Blood, POC 253(A) 60 - 200 mg/dL QC Media Lot # [id number] Lot# Expiration Date Blood Capillary blood specimen / Unknown 04/28/2024 9:34 AM EST us Yoandy Tillman MD POINT OF CARE TEST ENTER/EDIT OR DERABLES Final Result * TSH with Reflex to Free T4 (04/14/2024 11:04 AM EST) TSH reflex Free T4 1.57 0.32 - 4.0 uIU/mL [facility] 04/14/2024 11:0 4 AM EST 04/14/2024 1:11 PM EST us Yoandy Tillman MD LAB BLOOD ORDERABLES Final Resul t Performing Organization Address [facility] de Phone Number [facility] [address] [place] [address] [phone] * Albumin, Random Urine W/Creatinine (04/14/2024 11:04 AM EST) Creatinine, Urine 109.08 mg/dL [facility] Microalbumin Urine 6.0 mg/L [facility] Microalbum Creatinine Ratio Ur 5.5 <30 ug/mg cr [facility] Comment:Albumin/Creatinine R atio Reference Ranges: Normal: < 30 ug/mg creatinine Microalbuminuria: 30 - 300 ug/mg creatinineClinical Albuminuria: > 300 ug/mg creatinine Urine (Urine, Random) 04/14/2024 11:04 AM EST 04/14/2024 1:04 PM EST us Yoandy Tillman MD LAB URINE ORDERABLES Final Resul t Performing Organization Address City/[facility] Co de Phone Number [facility] [address] [place] [phone] * Magnesium (04/14/2024 11:04 AM EST) Magnesium 1.6 1.6 - 2.6 mg/dL [facility] 04/14/2024 11:0 4 AM EST 04/14/2024 1:11 PM EST us Yoandy Tillman MD LAB BLOOD ORDERABLES Final Resul t [facility] [address], [place] [phone] * (ABNORMAL) POCT HGB A1C (02/05/2024 11:44 AM EDT) Hemoglobin A1C 6.3(A) 4.0 - 6.0 % QC Media Lot # [id number] Lot# Expiration Date [id number] Blood 02/05/2024 11:4 4 AM EDT [facility] Name POINT OF CARE TEST ENTER/EDIT OR DERABLES Final Result * Lipid Panel, Standard (06/27/2022 9:53 AM EDT) Triglycerides 84 mg/dL [facility] Comment:Desirable Triglyceri de: less than 150 mg/dLBorderline High Triglyceride 150-199 mg/dLHigh Triglyceride: 200-499 mg/dLVery High Triglyceride: greater than or equal to 5OO mg/dL Cholesterol 154 mg/dL [facility] Comment:Desirable Cholestero l: less than 200 mg/dLBorderline High Cholesterol: 200-239 mg/dLHigh Cholesterol: greater than 239 mg/dL LDL Cholesterol Calculated 104 mg/dl [facility] Comment:Desirable LDL: less than 100 mg/dLNear Optimal/Above Optimal LDL: 110- 129 mg/dLBorderline High LDL: 130-159 mg/dLHigh LDL: 160-189 mg/dLVery High LDL: greater than or equal to 190 mg/dL HDL Cholesterol 34 mg/dL [facility] Comment:Desirable HDL: great er than 40 mg/dL Note: This HDL assay may give artificially low results in patients with liver disease. 06/27/2022 9:53 AM EDT 06/27/2022 9:53 AM EDT [facility] External Provider LAB BLO OD ORDERABLES Final Result [facility] [address] [place] [phone] [phone] from Last 3 Months or Most Recently Relevant to Health Maintenance Insurance N FULL MEDICARE [facility] MEDEX CARE [address] [place] [id number] [place] [phone] [place] [phone] Care Teams Sports Betting Manager Relationship Specialty Start Date End Date Name, MD Yoandy [address] [place] [phone] PCP - General Internal Medicine 10/19/23 [facility] 01/19/24
--- OUTSIDE RECORDS SUMMARY | 2024-05-26 12:13 | XMS_ITS | Encounter Summary ---
Author Organization [employer] [facility] Address [address] [facility] 7t [place] [address] Care Team Providers Care Batt Machine Operator Name Role Phone Name, Yoandy LUGO Primary Care Provider [phone] Name, Yoandy LUGO Primary Care Provider [phone] Encounter Details Date Type Department Care Team (Late st Contact Info) Description 03/21/2022 Orders Only [facility] MEDICINE [address] [place] [address] [phone] Coby Flores RN Social History Tobacco Use [...] Description 07/07/2024 9:00 AM EDT Office Visit [facility] OPTOMETRY [address] [place] [address] Lena Keene, RONNIE [address] [place] [address] 07/27/2024 10:45 AM EDT Office Visit [facility] MEDICINE [address] [place] [address] Name, MD Yoandy [address] [place] [address] documented as of this encounter Procedures Procedure Name Priority Date/Time Associated Diagnosis Comments B TYPE NATRIURETIC PEPTIDE (BNP) Routine 06/27/2022 9:53 AM EDT HEPATIC FUNCTION PANEL Routine 06/27/2022 9:53 AM EDT LIPID PANEL, STANDARD Routine 06/27/2022 9:53 AM EDT BASIC METABOLIC PANEL Routine 06/27/2022 9:53 AM EDT documented in this encounter Results * Lipid Panel, Standard (06/27/2022 9:53 AM EDT) Triglycerides 84 mg/dL [facility] Comment:Desirable Triglyceri de: less than 150 mg/dLBorderline High Triglyceride 150-199 mg/dLHigh Triglyceride: 200-499 mg/dLVery High Triglyceride: greater than or equal to 5OO mg/dL Cholesterol 154 mg/dL [facility] Comment:Desirable Cholestero l: less than 200 mg/dLBorderline High Cholesterol: 200-239 mg/dLHigh Cholesterol: greater than 239 mg/dL LDL Cholesterol Calculated 104 mg/dl [facility] Comment:Desirable LDL: less than 100 mg/dLNear Optimal/Above Optimal LDL: 110- 129 mg/dLBorderline High LDL: 130-159 mg/dLHigh LDL: 160-189 mg/dLVery High LDL: greater than or equal to 190 mg/dL HDL Cholesterol 34 mg/dL [facility] Comment:Desirable HDL: great er than 40 mg/dL Note: This HDL assay may give artificially low results in patients with liver disease. 06/27/2022 9:53 AM EDT 06/27/2022 9:53 AM EDT us [employer] External Provider LAB BLO OD ORDERABLES Final Result Performing Organization Address [facility] Co de Phone Number [facility] [address] [place] [address] [phone] * (ABNORMAL) Basic Metabolic Panel (06/27/2022 9:53 AM EDT) [facility] Sodium 143 135 - 145 mmol/L [facility] Potassium 4.6 3.3 - 5.1 mmol/L [facility] Chloride 108 96 - 108 mmol/L [facility] Carbon Dioxide 26 22 - 29 mmol/L [facility] Anion Gap 14 12 - 20 [facility] Urea Nitrogen (BUN) 13 9 - 16 mg/dL [facility] Creatinine, Serum 1.02 0.5 - 1.4 mg/dL [facility] Estimated Glomerular Filt Rate >60 [facility] Comment:NOTE: For -Am erican individuals, multiply the result by 1.210.Chronic Kidney Disease: Estimated GFR < 60 mL/min/1.28m5Ppkbnc Kidney Disease: Estimated GFR < 15 mL/min/1.73m2 Glucose 141(H) 60 - 115 mg/dL [facility] Calcium 9.4 8.4 - 10.2 mg/dL [facility] 06/27/2022 9:53 AM EDT 06/27/2022 9:53 AM EDT [facility] External Provider LAB BLO OD ORDERABLES Final Result Performing Organization Address [facility]/ZIP Co de Phone Number [facility] [address] [place] [address] [phone] * Hepatic Function Panel (06/27/2022 9:53 AM EDT) Bilirubin, Total 1.0 0.0 - 1.0 mg/dL [facility] Bilirubin, Direct 0.3 0.0 - 0.5 mg/dL [facility] Aspartate Amino Transferase 19 5 - 37 U/L [facility] Alanine Aminotransferase 24 0 - 40 U/L [facility] Total Protein 6.7 6.5 - 8.0 g/dL [facility] Albumin Level 4.2 3.5 - 5.0 g/dL [facility] Alkaline Phosphatase 61 39 - 117 U/L [facility] 06/27/2022 9:53 AM EDT 06/27/2022 9:53 AM EDT [facility] External Provider LAB BLO OD ORDERABLES Final Result Performing Organization Address [facility] Co de Phone Number [facility] [address] [place] [address] [phone] * (ABNORMAL) B Type Natriuretic Peptide (BNP) (06/27/2022 9:53 AM EDT) B Type Natriuretic Peptide 332(H) <100 pg/mL [facility] Comment:For those patients w ho are being treated with Natrecor(nesiritide, recombinant BNP), BNP testing should beperformed at least two hours post treatment in order toensure that only endogenous levels of BNP are detected. 06/27/2022 9:53 AM EDT 06/27/2022 9:53 AM EDT [facility] External Provider LAB BLO OD ORDERABLES Final Result Performing Organization Address [facility] Co de Phone Number [facility] [address] [place] [address] [phone] documented in this encounter Visit Diagnoses Not on filedocumented in this encounter Care Teams Batt Machine Operator Relationship Specialty Start Date End Date NameYoandy MD [address] [place] [address] PCP - General Family Medicine 01/18/21 06/04/23 Name, MD Yoandy [address] [place] [address] PCP - General Internal Medicine 10/19/23 Blanka Coreas 01/19/24 documented as of this encounter
--- OUTSIDE RECORDS SUMMARY | 2024-05-26 12:14 | XMS_ITS | Encounter Summary ---
Author Organization [employer] Address [address] [place] [address] Care Team Providers Care Street Light Cleaner Name Role Phone Name, Yoandy LUGO Primary Care Provider [phone] Reason for Visit * Reason Comments Follow-up Encounter Details Date Type Department Care Team ([facility] st Contact Info) Description 04/28/2024 9:00 AM EST Office Visit [facility] [address] [place], [place] [phone] Name, MD Yoandy [address] [place] [address] COVID-19 (Primary Dx); Rhinovirus; Tracheal stenosis; Type 2 diabetes mellitus with other circulatory complication, without long-term current use of insulin ([facility]) Social History Tobacco Use Types Packs/Day Years [...] feels well. He was recently admitted to [facility] with respiratory infection due to COVID and rhinovirus. The patient is chronically immunosuppressed and hasprevious history of heart transplant. The patient did not require intubation or oxygen supplementation. By the time of his visit he is back to his usual baseline. He has upcoming appointment with keri robertson at [facility] to have a bronchoscopy because of a previous history of tracheal stenosis. His blood sugar has remained well-controlled. His [place] [facility] [place]. His medications remain unchanged during his [...] by mouth 2 times daily. nystatin (Mycostatin) 729474 UNIT/ML suspension Swish and swallow 500,000 Units [...] and at bedtime. [employer] (BD Sharps Deflector Operator) [facility] For disposal of needles and lancets sodium [...] complication, without long-term current use of insulin ([facility]) - POCT Glucose documented in this encounter Plan of Treatment Upcoming Encounters Date Type Department Care Team (Late st Contact Info) Description 07/07/2024 9:00 AM EDT Office Visit [facility] [address] [place], [place] [phone] Lena Keene, OD [address] [place] [address] 07/27/2024 10:45 AM EDT Office Visit [facility] [address] [place] [address] Yoandy Tillman MD [address] [place] [address] documented as of this encounter Procedures Procedure Name Priority Date/Time Associated Diagnosis Comments POCT GLUCOSE Routine 04/28/2024 9:34 AM EST Type 2 diabetes mellitus with other circulatory complication, without long-term current use of insulin ([facility]) documented in this encounter Results * (ABNORMAL) POCT Glucose (04/28/2024 9:34 AM EST) [facility] Glucose Blood, POC 253(A) 60 - 200 [...] complication, without long-term current use of insulin ([facility]) documented in this encounter Additional Health Concerns Assessment Noted Time PHQ-9 Depression Total Score: 0 10/20/19 24 4:12 PM EDT documented as of this encounter Care Teams Street Light Cleaner Relationship Specialty Start Date End Date Name, MD Yoandy [address] [place] [address] PCP - General Internal Medicine 10/19/23 [facility] [place] 01/19/24 documented as of this encounter
--- OUTSIDE RECORDS SUMMARY | 2024-05-26 12:14 | XMS_ITS | Encounter Summary ---
Author Organization [employer] [facility] Address [address] [place] [address] Care Team Providers Care Team Primary Care Physician Name Role Phone Name, Yoandy LUGO Primary Care Provider [phone] Name, Yoandy LUGO Primary Care Provider [phone] Reason for Visit * Reason Onset Date Comments FYI 10/01/2022 Encounter Details Date Type Department Care Team ([facility] st Contact Info) Description 10/01/2022 Telephone [facility] [address] [place], [place] [phone] Name, MD Yoandy [address] [place] [address] FYI Social History Tobacco Use Types Packs/Day [...] - 10/01/2022 3:26 PM EDT Tc from [facility] facility that patient during their vacation in [place] had two Heart Attacks and is currently hospitalized since 09/15/[address] [facility] documented in this encounter Plan of Treatment Upcoming Encounters Date Type Department Care Team (Late st Contact Info) Description 07/07/2024 9:00 AM EDT Office Visit [facility] [address] [place] [address] Lena Keene, OD [address] [place] [address] 07/27/2024 10:45 AM EDT Office Visit [facility] [address] [place] [address] Name, MD Yoandy [address] [place] [address] documented as of this encounter Visit Diagnoses Not on filedocumented in this encounter Care Teams Team Primary Care Physician Relationship Specialty Start Date End Date Name, MD Yoandy [address] [place] [phone] PCP - General Family Medicine 01/18/21 06/04/23 Name, MD Yoandy [address] [place] [phone] PCP - General Internal Medicine 10/19/23 [facility] 01/19/24 documented as of this encounter
== END 2024-05-26 11:34 | disposition home or self-care (01) ==
PROVIDERS: PCP Internal Medicine Geriatric Medicine; Visit Provider Internal Medicine
DX: E11.8 Type 2 diabetes mellitus with unspecified complications (principal); E16.2 Hypoglycemia, unspecified

== ENCOUNTER 2024-05-26 10:57 | Outpatient (REF) | payer MEDICARE, SELFPAY ==
[2024-05-26 12:31] LABS: Estimated Average Glucose 166 mg/dL; Hemoglobin A1C 183.4636 umol/L; Hemoglobin A1c % 7.4 % (<6.0); Total Hemoglobin (HGBA1C) 3220.0516 umol/L
--- OUTSIDE RECORDS SUMMARY | 2024-05-26 12:56 | XMS_ITS | Encounter Summary ---
Author Organization [employer] [facility] Address [address] [place] [address] Care Team Providers Care Gatehouse Attendant Name Role Phone Name, Yoandy LUGO Primary Care Provider [phone] Name, Yoandy LUGO Primary Care Provider [phone] Reason for Visit * Reason Onset Date Comments FYI 10/01/2022 Encounter Details Date Type Department Care Team ([facility] st Contact Info) Description 10/01/2022 Telephone [facility] [address] [place], [place] [phone] Name, MD Yoandy [address] [place] [address] FYI Social History Tobacco Use Types Packs/Day [...] - 10/01/2022 3:26 PM EDT Tc [facility] facility that patient during their vacation in [place] had two Heart Attacks and is currently hospitalized since 09/15/2022 at the [facility] documented in this encounter Plan of Treatment Upcoming Encounters Date Type Department Care Team (Late st Contact Info) Description 07/07/2024 9:00 AM EDT Office Visit [facility] [address] [place] [address] Lena Keene, OD [address] [place] [address] 07/27/2024 10:45 AM EDT Office Visit [facility] [address] [place] [address] Name, MD Yoandy [address] [place] [address] documented as of this encounter Visit Diagnoses Not on filedocumented in this encounter Care Teams Gatehouse Attendant Relationship Specialty Start Date End Date Name, MD Yoandy [address] [place] [address] PCP - General Family Medicine 01/18/21 06/04/23 Name, MD Yoandy [address] [place] [address] PCP - General Internal Medicine 10/19/23 [facility] 01/19/24 documented as of this encounter
--- OUTSIDE RECORDS SUMMARY | 2024-05-26 12:56 | XMS_ITS | Clinical Summary ---
Author Organization [employer] Address [address] [place] [address] Care Team Providers Care Substitute Nurse Name Role Phone Name, Yoandy LUGO Primary Care Provider [phone] Allergies Active Allergy Reactions Criticality Noted Date [...] 2 times daily. 10/08/ Active nystatin (Mycostatin) 749337 UNIT/ML suspension Swish and swallow 500,000 Units [...] bedtime. 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 Dysphagia 02/08/2023 Positive colorectal cancer screening using Colog uard test 02/04/2023 Overview (11/03/2023): Negative Colonoscopy 06/2023: urgical Pathology Exam - Order: [id number] Component 4 mo ago Case Report Surgicals Case: [id number] Authorizing Provider: Donny Encarnacion Collected: 2023 0843 MD Eugene Ordering Location: [facility] Received: 2023 1011 Pathologist: Shannan [...] IHC, [place] [address]. Resulting Agency [facility] Specimen Collected: 06/19/23 08:43 Performed by: [facility] Last Resulted: 06/23/23 17:27 Athscl [...] were answered. Coronary artery disease invo lving [place] coronary artery of [place] heart without angina pectoris 11/14/2022 Overview (11/02/2023): Last Assessment & Plan: - nonobstructive disease - continue medical therapy with aspirin, statin, BB - denies angina Stridor 11/13/2022 Overview (11/02/2023): Last Assessment & Plan: Improved after last dilation in April 2023. Mild stridor noted today in clinic Discussed with his primary parts advisor Dr. Sanches and will work to get [...] anxiety 04/06/2022 Ventricular tachycardia, unspecified 04/06/2022 Other extermination inspector (current) drug therapy 3 Type 2 diabetes [...] upgraded from dual-chamber to biventricular device at [facility] 03/2022. [place] [facility] [place] Systolic dysfunction 03/13/2022 History of bradycardia 03/13/2022 Family history of prostate cancer 03/13/2022 Complete heart block 04/06/2020 Overview (11/02/2023): Added automatically from request for surgery [id number] Last Assessment & Plan: History of biventricular pacemaker that was upgraded to [employer] defibrillator in September. Device interrogated today with [...] starting statin -No need for ischemic evaluation prison (current) use of o ral hypoglycemic drugs 04/06/2022 11/03/2023 Other specified diseases of upper respiratory tract 04/06/2022 11/03/2023 Presence of automatic (impla ntable) cardiac defibrillator 04/06/2022 02/05/2024 Cardiac pacemaker in situ 03/13/2022 Uncontrolled type 2 diabetes mellitus with hyperglycemia 04/06/2020 02/05/2024 Overview (11/02/2023): Last Assessment & Plan: Encounters Date Type Department Care Team Description 04/28/2024 9:00 AM EST Office Visit [facility] [place] [address] Yoandy Tillman MD COVID-19 (Primary Dx); Rhinovirus; Tracheal stenosis; Type 2 diabetes mellitus with other circulatory complication, without long-term current use of insulin ([facility]) 04/21/[address] [address] Yoandy Tillman MD Results 04/19/[address] [address] Anisa Cadena [place] Chat Prep 03/29/[address] [address] Mamie Colby RN Error (VOID this visit) 03/28/[address] [address] Mamie Colby RN 03/23/[address] [address] Yoandy Tillman MD verbal order 03/01/2024 Travel [...] with others, in a hotel, in a alf, living outside on the street, on a [...] Description 07/07/2024 9:00 AM EDT Office Visit [facility] [address] [place] [address] Lena Keene, OD [address] [place] [address] 07/27/2024 10:45 AM EDT Office Visit [facility] [address] [place] [address] Name, MD Yoandy [address] [place] [address] Health Maintenance Due Date Last Done Comments CT Colonography 1955 Colonoscopy 1955 FIT 1955 FOBT 1955 Sigmoidoscopy 1955 Eye Exam 05/15/2023 05/15/2022, 02/0 12/2022, 05/15/2022, Additional history exists Hepatitis B Vaccines (2 of 3 - 19+ 3-dose series) 12/24/2023 11/26/2023 Zoster Vaccines (2 of 2) 01/21/2024 11/26/2023 COVID-19 Vaccine ( season) 2024 02/05/2024, 02/25/2022, 01/10/2021, Additional history exists Alcohol/Substance Use Screening 10/19/2024 10/20/2023 Depression Screening 10/19/2024 10/20/2023, 10/20/19 SDOH Screening 10/19/2024 10/20/2023 Diabetes: Hemoglobin A1C 11/23/2024 025, 02/05/2024, 10/20/2023, Additional history exists Lipid Panel 01/25/2025 01/26/2024, 06/05, 06/23/2022, Additional [...] Procedure Name Priority Date/Time Associated Diagnosis Comments HEMOGLOBIN A1C Routine 05/26/2024 12:08 PM EST GLUCOSE, WHOLE BLOOD Routine 05/26/2024 11:06 AM EST COMPREHENSIVE METABOLIC PANEL Routine 05/20/2024 11:35 AM EST POCT GLUCOSE Routine 04/28/2024 9:34 AM EST Type 2 diabetes mellitus with other circulatory complication, without long-term current use of insulin ([facility]) GLUCOSE, WHOLE BLOOD Routine 04/14/2024 3:27 PM EST TSH W/REFLEX TO FT4 Routine 04/14/2024 1 1:04 AM EST MAGNESIUM Routine 04/14/2024 11:04 AM EST ALBUMIN, RANDOM URINE W/CREATININE Routine 04/14/2024 11:04 AM EST Type 2 diabetes mellitus with other circulatory complication, without long-term current use of insulin ([facility]) COMPREHENSIVE METABOLIC PANEL Routine 04/14/2024 11:04 AM EST On amiodarone therapy Abnormal LFTs GLUCOSE, WHOLE BLOOD Routine 02/24/2024 3:36 PM EST LIPID PANEL, STANDARD Routine 06/27/2022 9:53 AM EDT from Last 3 Months or Most Recently Relevant to Health Maintenance Results * (ABNORMAL) Hemoglobin A1c (05/26/2024 12:08 PM EST) Hemoglobin A1c 7.4(H) <6.0 % [facility] Comment:Hemoglobin A1C Refer ence Range Adults: 4.8 - 6.0 % Non diabetic: < 6.0 % Goal: < 7.0 %Additional Action Suggested: > 8.0 %Note: Hemoglobin A1c results are invalid for patients with abnormal amounts of HbF. Blood transfusions may impact the HbA1c concentration in the patient sample. Estimated Average Glucose 166 mg/dL [facility] Comment:eAG = Estimated ave rage glucose which is %A1C expressed asaverage glucose, using the formula of the M6M-FsuoswcJhaoxho Glucose study (ADAG), Diabetes Care, Vol.31,#8,Nov. 2007 05/26/2024 12:0 8 PM EST 05/26/2024 12:08 PM EST us Generic External Data Provider LAB BLOOD ORDERAB LES Final Result [facility] [address] [place] [phone] * (ABNORMAL) Glucose, Whole Blood (05/26/2024 11:06 AM EST) Only the most recent of3 resultswithin the time period is included. Glucose, Whole Blood 138(H) 60 - 115 mg/dL [facility] Comment:METER #: [id number] Testing performed in the Endocrinology Department [address] , [address], [facility]. 05/26/2024 11:0 6 AM EST 05/26/2024 11:13 AM EST us Generic External Data Provider LAB BLOOD ORDERAB LES Final Result [facility] [address] [place] [address] [phone] * (ABNORMAL) Comprehensive Metabolic Panel (05/20/2024 11:35 AM EST) Only the most recent of2 resultswithin the time period is included. Sodium 140 135 - 145 mmol/L [facility] Potassium 3.6 3.3 - 5.1 mmol/L [facility] Chloride 108 96 - 108 mmol/L [facility] Carbon Dioxide 25 22 - 29 mmol/L [facility] Anion Gap 11(L) 12 - 20 [facility] Urea Nitrogen (BUN) 10 9 - 16 mg/dL [facility] Creatinine, Serum 0.93 0.5 - 1.4 mg/dL [facility] Estimated Glomerular Filt Rate >60 [facility] Comment:Chronic Kidney Disea se: Estimated GFR < 60 mL/min/1.07q4Syrvfj Kidney Disease: Estimated GFR < 15 mL/min/1.73m2 Glucose 114 60 - 115 mg/dL [facility] Calcium 9.0 8.4 - 10.2 mg/dL [facility] Bilirubin, Total 0.4 0.0 - 1.0 mg/dL [facility] Aspartate Amino Transferase 13 5 - 37 U/L [facility] Alanine Aminotransferase 17 0 - 40 U/L [facility] Total Protein 6.4(L) 6.5 - 8.0 g/dL [facility] Albumin Level 4.0 3.5 - 5.0 g/dL [facility] Alkaline Phosphatase 53 39 - 117 U/L [facility] 05/20/2024 11:3 5 AM EST 05/20/2024 1:10 PM EST us Yoandy Tillman MD LAB BLOOD ORDERABLES Final Resul t Performing Organization Address City/[facility]/ZIP Co de Phone Number [facility] [address] [place] [phone] * (ABNORMAL) POCT Glucose (04/28/2024 9:34 AM EST) Pathologist [facility] Glucose Blood, POC 253(A) 60 - 200 mg/dL QC Media Lot # [id number] Lot# Expiration Date Blood Capillary blood specimen / Unknown 04/28/2024 9:34 AM EST us Yoandy Tillman MD POINT OF CARE TEST ENTER/EDIT OR DERABLES Final Result * TSH with Reflex to Free T4 (04/14/2024 11:04 AM EST) Pathologist [facility] TSH reflex Free T4 1.57 0.32 - 4.0 uIU/mL [facility] 04/14/2024 11:0 4 AM EST 04/14/2024 1:11 PM EST us Yoandy Tillman MD LAB BLOOD ORDERABLES Final Resul t Performing Organization Address City/[facility]/ZIP Co de Phone Number [facility] [address] [place] [phone] * Albumin, Random Urine W/Creatinine (04/14/2024 11:04 AM EST) Creatinine, Urine 109.08 mg/dL [facility] Microalbumin Urine 6.0 mg/L [facility] Microalbum Creatinine Ratio Ur 5.5 <30 ug/mg cr [facility] Comment:Albumin/Creatinine R atio Reference Ranges: Normal: < 30 ug/mg creatinine Microalbuminuria: 30 - 300 ug/mg creatinineClinical Albuminuria: > 300 ug/mg creatinine Urine (Urine, Random) 04/14/2024 11:04 AM EST 04/14/2024 1:04 PM EST us Yoandy Tillman MD LAB URINE ORDERABLES Final Resul t Performing Organization Address [facility] Phone Number [facility] [address] [place] [phone] * Magnesium (04/14/2024 11:04 AM EST) Magnesium 1.6 1.6 - 2.6 mg/dL [facility] 04/14/2024 11:0 4 AM EST 04/14/2024 1:11 PM EST us Yoandy Tillman MD LAB BLOOD ORDERABLES Final Resul t Performing Organization Address [place] Phone Number [facility] [address] [place] [phone] * Lipid Panel, Standard (06/27/2022 9:53 AM EDT) Triglycerides 84 mg/dL [facility] Comment:Desirable Triglyceri de: less than 150 mg/dLBorderline High Triglyceride 150-199 mg/dLHigh Triglyceride: 200-499 mg/dLVery High Triglyceride: greater than or equal to 5OO mg/dL Cholesterol 154 mg/dL [facility] Comment:Desirable Cholestero l: less than 200 mg/dLBorderline High Cholesterol: 200-239 mg/dLHigh Cholesterol: greater than 239 mg/dL LDL Cholesterol Calculated 104 mg/dl [facility] Comment:Desirable LDL: less than 100 mg/dLNear Optimal/Above Optimal LDL: 110- 129 mg/dLBorderline High LDL: 130-159 mg/dLHigh LDL: 160-189 mg/dLVery High LDL: greater than or equal to 190 mg/dL HDL Cholesterol 34 mg/dL [facility] Comment:Desirable HDL: great er than 40 mg/dL Note: This HDL assay may give artificially low results in patients with liver disease. 06/27/2022 9:53 AM EDT 06/27/2022 9:53 AM EDT us [facility] External Provider LAB BLO OD ORDERABLES Final Result [facility] [address] [place] [address] [phone] from Last 3 Months or Most Recently Relevant to Health Maintenance Insurance [facility] FULL MEDICARE [facility] MEDEX CARE Care Teams Substitute Nurse Relationship Specialty Start Date End Date Name, MD Yoandy [address] [place] [phone] PCP - General Internal Medicine 10/19/23 [facility] 01/19/24
--- OUTSIDE RECORDS SUMMARY | 2024-05-26 12:56 | XMS_ITS | Encounter Summary ---
Author Organization [facility] Address [address] [facility] 7t [place] [address] Care Team Providers Care Medical Records Tech Name Role Phone Name, Yoandy LUGO Primary Care Provider [phone] Name, Yoandy LUGO Primary Care Provider Encounter Details Date Type Department Care Team (Late st Contact Info) Description 03/21/2022 Orders Only [facility] MEDICINE [address] [place] [address] [phone] Coby Flores RN Social History Tobacco Use [...] Description 07/07/2024 9:00 AM EDT Office Visit [facility] OPTOMETRY [address] [place] [address] Lena Keene, RONNIE [address] [place] [address] 07/27/2024 10:45 AM EDT Office Visit [facility] MEDICINE [address] [place] [address] Name, MD Yoandy [address] [place] [address] documented as of this encounter Procedures Procedure Name Priority Date/Time Associated Diagnosis Comments B TYPE NATRIURETIC PEPTIDE (BNP) Routine 06/27/2022 9:53 AM EDT HEPATIC FUNCTION PANEL Routine 06/27/2022 9:53 AM EDT LIPID PANEL, STANDARD Routine 06/27/2022 9:53 AM EDT BASIC METABOLIC PANEL Routine 06/27/2022 9:53 AM EDT documented in this encounter Results * Lipid Panel, Standard (06/27/2022 9:53 AM EDT) Triglycerides 84 mg/dL [facility] Comment:Desirable Triglyceri de: less than 150 mg/dLBorderline High Triglyceride 150-199 mg/dLHigh Triglyceride: 200-499 mg/dLVery High Triglyceride: greater than or equal to 5OO mg/dL Cholesterol 154 mg/dL [facility] Comment:Desirable Cholestero l: less than 200 mg/dLBorderline High Cholesterol: 200-239 mg/dLHigh Cholesterol: greater than 239 mg/dL LDL Cholesterol Calculated 104 mg/dl [facility] Comment:Desirable LDL: less than 100 mg/dLNear [...] AM EDT 06/27/2022 9:53 AM EDT us [facility] External Provider LAB BLO OD ORDERABLES Final Result Performing Organization Address [facility] Co de Phone Number [facility] [address] [place] [address] [phone] * (ABNORMAL) Basic Metabolic Panel (06/27/2022 9:53 AM EDT) [facility] Sodium 143 135 - 145 mmol/L [facility] Potassium 4.6 3.3 - 5.1 mmol/L [facility] Chloride 108 96 - 108 mmol/L [facility] Carbon Dioxide 26 22 - 29 mmol/L [facility] Anion Gap 14 12 - 20 [facility] Urea Nitrogen (BUN) 13 9 - 16 mg/dL [facility] Creatinine, Serum 1.02 0.5 - 1.4 mg/dL [facility] Estimated Glomerular Filt Rate >60 [facility] Comment:NOTE: For -Am erican individuals, multiply the result by 1.210.Chronic Kidney Disease: Estimated GFR < 60 mL/min/1.25r9Yvnute Kidney Disease: Estimated GFR < 15 mL/min/1.73m2 Glucose 141(H) 60 - 115 mg/dL [facility] Calcium 9.4 8.4 - 10.2 mg/dL [facility] 06/27/2022 9:53 AM EDT 06/27/2022 9:53 AM EDT [facility] External Provider LAB BLO OD ORDERABLES Final Result Performing Organization Address [facility]/ZIP Co de Phone Number [facility] [address] [place] [address] [phone] * Hepatic Function Panel (06/27/2022 9:53 AM EDT) Bilirubin, Total 1.0 0.0 - 1.0 mg/dL [facility] Bilirubin, Direct 0.3 0.0 - 0.5 mg/dL [facility] Aspartate Amino Transferase 19 5 - 37 U/L [facility] Alanine Aminotransferase 24 0 - 40 U/L [facility] Total Protein 6.7 6.5 - 8.0 g/dL [facility] Albumin Level 4.2 3.5 - 5.0 g/dL [facility] Alkaline Phosphatase 61 39 - 117 U/L [facility] 06/27/2022 9:53 AM EDT 06/27/2022 9:53 AM EDT [facility] External Provider LAB BLO OD ORDERABLES Final Result Performing Organization Address [facility] Co de Phone Number [facility] [address] [place] [address] [phone] * (ABNORMAL) B Type Natriuretic Peptide (BNP) (06/27/2022 9:53 AM EDT) B Type Natriuretic Peptide 332(H) <100 pg/mL [facility] Comment:For those patients w ho are being treated with Natrecor(nesiritide, recombinant BNP), BNP testing should beperformed at least two hours post treatment in order toensure that only endogenous levels of BNP are detected. 06/27/2022 9:53 AM EDT 06/27/2022 9:53 AM EDT [facility] External Provider LAB BLO OD ORDERABLES Final Result Performing Organization Address [facility] Co de Phone Number [facility] [address] [place] [address] [phone] documented in this encounter Visit Diagnoses Not on filedocumented in this encounter Care Teams Medical Records Tech Relationship Specialty Start Date End Date NameYoandy MD [address] [place] [address] PCP - General Family Medicine 01/18/21 06/04/23 Name, MD Yoandy [address] [place] [address] PCP - General Internal Medicine 10/19/23 Blanka Coreas 01/19/24 documented as of this encounter
--- OUTSIDE RECORDS SUMMARY | 2024-05-26 12:57 | XMS_ITS | Encounter Summary ---
Author Organization [employer] [facility] Address [address] [place] [address] Care Team Providers Care Wireless Store Manager Name Role Phone Name, Yoandy LUGO Primary Care Provider [phone] Reason for Visit * Reason Comments Follow-up Encounter Details Date Type Department Care Team ([facility] st Contact Info) Description 04/28/2024 9:00 AM EST Office Visit [facility] MEDICINE [address] [place], [place] [phone] Name, MD Yoandy [address] [place] [address] COVID-19 (Primary Dx); Rhinovirus; Tracheal stenosis; Type 2 diabetes mellitus with other circulatory complication, without long-term current use of insulin ([facility]) Social History Tobacco Use Types Packs/Day Years [...] with others, in a hotel, in a penitentiary, living outside on the street, on a [...] feels well. He was recently admitted to [facility] with respiratory infection due to COVID and rhinovirus. The patient is chronically immunosuppressed and hasprevious history of heart transplant. The patient did not require intubation or oxygen supplementation. By the time of his visit he is back to his usual baseline. He has upcoming appointment with keri robertson at [facility] to have a bronchoscopy because of a previous history of tracheal stenosis. His blood sugar has remained well-controlled. His insulin is managed at [facility] endocrinology. His medications remain unchanged [...] by mouth 2 times daily. nystatin (Mycostatin) 683248 UNIT/ML suspension Swish and swallow 500,000 Units [...] and at bedtime. [employer] (BD [employer] Associate) [facility] For disposal of needles and lancets sodium [...] complication, without long-term current use of insulin ([facility]) - POCT Glucose documented in this encounter Plan of Treatment Upcoming Encounters Date Type Department Care Team (Late st Contact Info) Description 07/07/2024 9:00 AM EDT Office Visit [facility] OPTOMETRY [address] [place], [place] [phone] Lena Keene, OD [address] [place] [address] 07/27/2024 10:45 AM EDT Office Visit [facility] MEDICINE [address] [place] [address] Yoandy Tillman MD [address] [place] [address] documented as of this encounter Procedures Procedure Name Priority Date/Time Associated Diagnosis Comments POCT GLUCOSE Routine 04/28/2024 9:34 AM EST Type 2 diabetes mellitus with other circulatory complication, without long-term current use of insulin ([facility]) documented in this encounter Results * (ABNORMAL) POCT Glucose (04/28/2024 9:34 AM EST) [facility] Glucose Blood, POC 253(A) 60 - 200 [...] complication, without long-term current use of insulin ([facility]) documented in this encounter Additional Health Concerns Assessment Noted Time PHQ-9 Depression Total Score: 0 10/20/19 24 4:12 PM EDT documented as of this encounter Care Teams Wireless Store Manager Relationship Specialty Start Date End Date Name, MD Yoandy [address] [place] [address] PCP - General Internal Medicine 10/19/23 [facility] 01/19[facility]24 documented as of this encounter
== END 2024-05-26 10:58 | disposition home or self-care (01) ==
LOC: HO.LAB 10:57
PROVIDERS: PCP Internal Medicine Geriatric Medicine; Visit Provider Internal Medicine
DX: E11.8 Type 2 diabetes mellitus with unspecified complications (principal); E16.2 Hypoglycemia, unspecified; Z79.4 Long term (current) use of insulin
CPT/HCPCS: 36415; 82947; 83036; 99212

== ENCOUNTER 2024-07-08 13:00 | Outpatient (REF) | payer MEDICARE, SELFPAY ==
--- OUTSIDE RECORDS SUMMARY | 2024-07-08 14:59 | XMS_ITS | Data Portability ---
Author Organization [facility], [facility] Address [address] [facility] [address] [place] [address] Assessment Encounter Date Assessment Date Assessment LastModified by Organization Details LastModified Time 02/25/2024 02/25/2024 68-year-old male presents today for evaluation of stridor and tracheal stenosis. Symptoms seem to worsen about 3 weeks ago following dilation in November. Of note he had heart transplant about 2 months ago at [facility]. Flexible laryngoscopy did not reveal any vocal [...] Organization Details Last Modified Time Details Appointments None recorded. Lab None recorded. Referral pulmonologi st referral - Established patient of Dr Alegre. Needs follow up appt/repeat endoscopy. Patient has recent heart transplant. Thank you. 2023 Tarsha wagner [facility]monary Medicine, [address] [place], [address], 09:56:34 Procedures None recorded. Surgeries None recorded. Imaging None recorded. Medication Orders None recorded. Patient TargetsNo targets recorded. Patient InstructionsNo instructions recorded. Reason for Referral Desizing Pad Operator Referral for T gaby stenosis following tracheostomy Established patient of Dr Alegre. Needs follow up appt/repeat endoscopy. Patient has recent heart transplant. Thank you. Referring Physician: Sandip Regalado, Otolaryngology, Encounter Date: 02/25/2024 Problems Name Problem SNOMED Code Status Onset Date Resolution Date Notes Provider Name and Address Organization Details Recorded Time Tracheal stenosis following tracheostomy 15468004 Active 2023 SANDIP REGALADO MD [address] [place] [address],[place] [address], [place], [phone], [facility] 4 12:10:02 Sensorineural hearing loss of bilateral ears 075886096 Active 2024 BORA GRAY AUD [address] [place] [address],[place] [address], [place], [phone], [facility] 5 16:02:33 Problem Notes None recorded. Procedures Surgical History Date Name Laterality Status Provider Name and Address Organization Details Recorded Time 04/15/19 25 Comp Audio with Tymps (46044 & 26322) completed JACQUE LUGO [address] [place] [address],[place] [address], [place], [address], [facility] 04/15/2024 16:02:37 02/25/20 24 Fiberoptic Laryngoscopy (Comprehensive) completed SANDIP REGALADO MD [address] [place] [address],[address], [phone], [facility] 02/25/2024 12:11:38 Imaging Results None recorded. Procedure [...] completed Not Available Not Available Not Available prednisone 20 mg tablet TAKE 2 TABLETS BY MOUTH EVERY DAY FOR 5 DAYS active Not Available Not Available No t Available tacrolimus 5 mg capsule, immediate-r elease [...] active Not Available Not Available Not Available pravastatin 80 mg tablet TAKE 1 TABLET BY MOUTH ONCE DAILY. active Not Available Not Available No t Available mexiletine 150 mg capsule TAKE 1 [...] Not Available Not Available Comfort EZ Pen [place] 32 gauge x 5/32 active Not Available Not Available Not Available [...] active Not Available Not Available Not Available Lagevrio 200 mg capsule (EUA) TAKE 4 CAPSULES (800 MG) BY MOUTH TWICE DAILY FOR 5 DAYS. active Not Available Not Available No t Available Dexcom G7 Sensor device USE TO [...] Updated DateTime 02/25/2024 172.72 cm 26.8 kg/m2 82372.26 g Manda Ly [place] [facility] 02/25/2024 11:47:14 Date Recorded Body height Body mass index (BMI) Body weight Provider Name and Address Organization Details Last Updated DateTime 04/15/2024 172.72 cm 20.2 kg/m2 19963.79 g Manda Ly [facility] 04/15/2024 16:28:34 Social History None recorded. Functional Status None recorded. Mental Status None recorded. Family History Nothing Reported. Medical History Condition Response Diabetes Y Heart Problems Y Hyperlipidemia Y Past Encounters Encounter ID Performer Location Encounter Start Date Encounter Closed Date Diagnosis/Indication Diagnosis SNOMED-CT Code Diagnosis ICD10 Code Diagnosis Note [id number] SANDIP REGALADO MD [facility] [address] [phone] 02/25/2024 11:26:24 02/25/2024 12:26:39 Tracheal stenosis following tracheostomy 46664427 J95.03 [id number] SANDIP REGALADO MD [facility] [address] [address] 04/15/2024 15:37:29 04/15/2024 16:57:22 Sensorineural hearing loss of bilateral ears 326557495 H90.3 68 yo M with a history [...] and there was likely some irritation here. [id number] JACQUE LUGO [facility] [address] [address] 04/15/2024 15:59:22 04/18/2024 07:41:17 Sensorineural hearing loss of bilateral ears 885142477 H90.3 Right Ear:Normal hearing through 1.5K Hz [...] Name 02/25/2024 2 [place] [id number] Matthew L Avila [id number] Matthew Donny Avila Avila 02/25/2024 1 [place] Matthew Avila Avila [id number] Matthew Donny Avila Avila 04/15/2024 2 [place] [id number] Matthew L Avila [id number] Matthew Donny Avila Avila 04/15/2024 1 [place] Matthew Avila Avila [id number] Matthew Donny Avila Avila 04/15/2024 2 [place] [id number] Matthew L Avila [id number] Matthew Donny Avila Avila 04/15/2024 1 [place] Matthew Avila Avila [id number] Matthew Donny Avila Avila Notes Date Note Type Note Provider Name and Address Organization Details Recorded Time 02/25/2024 text/html 68 yo M here for tracheal stenosis.Wheezing, had had 5 bronchoscopies. Scarring in the trachea following tracheostomy due to intensive care after heart attack, last year 2022 in [place], was on vacation. Coughing a lot. Had [...] corrected for lung volume SANDIP REGALADO MD [address] [facility],[place] [address], [place], [address], [place] [facility] 02/26/2024 10:58:54 04/15/2024 text/html Starting feeling numb on the side of the ear right after his surgeryTTP over jaw Has seen Dr. Walton. SANDIP REGALADO MD [address] [facility],[place] [address], [place], [address], [place] [facility] 04/18/2024 07:25:33
--- OUTSIDE RECORDS SUMMARY | 2024-07-08 14:59 | XMS_ITS | Encounter Summary ---
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 male. Chief Complaint Diabetic Eye Exam HPI 69 yo male presents for diabetic exam. He has no new visual complaints but reports having had a heart transplant 6 months ago and is doing well. He has a history of Type 2 diabetes with last A1c 7.4 on 05/26/2024 and fasting blood sugar of 193 this morning. He has had bilateral cataract surgery and moderate non-proliferative diabetic retinopathy (NPDR) was noted right eye (OD) with diabetic macular edema, mild non-proliferative diabetic retinopathy (NPDR) left eye (OS) at last exam without diabetic macular edema. Patient denies all other ocular complaints. Last edited by Lena Keene, OD on 07/07/2024 10:00 AM. Current Outpatient Medications Medication Sig Dispense Refill amoxicillin (Amoxil) 500 [...] by mouth 2 times daily. nystatin (Mycostatin) 669681 UNIT/ML suspension Swish and swallow 500,000 Units [...] and at bedtime. 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 Past Medical History: Diagnosis Date Cataract Hx of cataract surgery Past Surgical History: Procedure Laterality Date CATARACT EXTRACTION No family history on file. Social History Socioeconomic History Marital status: Unknown Spouse name: Not on file Number of children: Not on file Years of education: Not on file Highest education level: Not on file Occupational History Not on file Tobacco Use Smoking status: Never Smokeless tobacco: Never Substance and Sexual Activity Alcohol use: Never Drug use: Never Sexual activity: Not on file Other Topics Concern Not on file Social History Narrative Not on file Social Drivers of Health Food Insecurity: Unknown (11/26/2023) Received from [facility] Hunger Vital Sign Worried About Running Out of Food in the Last Year: Never true Ran Out of Food in the Last Year: Not on file Transportation Needs: No Transportation Needs (11/26/2023) Received from [facility] PRAPARE - Transportation Lack of Transportation (Medical): No Lack of Transportation (Non-Medical): No Intimate Partner Violence: Not At Risk (09/17/2022) Received from [facility] Intimate Partner Violence Fear of Current or Ex-Partner: No Emotionally Abused: No Physically Abused: No Sexually Abused: No Housing Stability: Unknown (11/26/2023) Received from [facility] Housing Stability Vital Sign Unable to Pay for Housing in the Last Year: Not on file Number of Places Lived in the Last Year: Not on file Unstable Housing in the Last Year: No Recent Concern: Housing Stability - High Risk (10/20/2023) Housing Stability What is your housing situation today?: I do not have housing (Staying with others, in a hotel, in ashelter, living outside on the street, on a beach, in a car, or in a park Think about the place you live. Do you have problems with any of the following? : None of the above Allergies Allergen Reactions Lisinopril Cough ROS Positive for: Endocrine (Type 2 diabetes,), Cardiovascular (cardiomyopathy, heart transplant), Respiratory (pulmonary sarcoidosis) Negative for: Constitutional, Gastrointestinal, Neurological, Skin, Genitourinary, Musculoskeletal,HENT, Eyes, Psychiatric, Allergic/Imm, Heme/Lymph Last edited by Lena Keene, OD on 07/07/2024 9:53 AM. Base Eye Exam Visual Acuity (Snellen - Linear) Right Left Dist cc 20/50 20/25 Tonometry ([facility] , 9:34 AM) Right Left Pressure 16 15 Pupils Pupils APD Right PERRL None Left PERRL None Visual Mccann (Counting fingers) Left Right Full Full Extraocular Movement Right Left Full, Ortho Full, Ortho Neuro/Psych Oriented x3: Yes Mood/Affect: Normal Dilation Both eyes: 1.0% Mydriacyl @ 9:34 AM Slit Lamp and Fundus Exam External Exam Right Left External Normal Normal Slit Lamp Exam Right Left Lids/Lashes Normal Normal Conjunctiva/Sclera 2+ Injection, pterygium nasally 2+ Injection, pterygium nasally Cornea Nasal pterygium 1 mm Nasal pterygium 1 mm Anterior Chamber Deep and quiet Deep and quiet Iris No NVI, flat nevi No NVI, flat nevi Lens Posterior chamber intraocular lens Posterior chamber intraocular lens Fundus Exam Right Left Vitreous Normal Normal Disc No NVD, shunt vessel No NVD C/D Ratio 0.3 0.35 Macula Heme/ma's nasal to disc, focal retinal pigment epithelium (RPE) dropout superior temp macula, ne edema, focal peripapillary laser scars and along superior and inferior temp arcades, no CWS No CSME Vessels No NVE, questionable VILMA inferior temp arcade, Arteriolar narrowing No NVE, arteriolar narrowing Periphery PRP scars nasal and inferior retina Trace Heme/ma nasal to disc Refraction Wearing Rx Sphere Cylinder Dodson Add Right +1.50 -1.50 76 2.25 Left +1.25 -1.50 98 2.25 Manifest Refraction Sphere Cylinder Dodson Dist VA Add Near VA Right +1.00 -1.50 76 20/30 +2.50 20/30 Left +0.75 -1.50 98 20/25 +2.50 20/25 Final Rx Sphere Cylinder Dodson Dist VA Add Near VA Right +1.00 -1.50 76 20/30 +2.50 20/30 Left +0.75 -1.50 98 20/25 +2.50 20/25 Expiration Date: 07/07/2025 Assessment/plan: Diagnoses and all orders for this visit: 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 Area of hard exudate with thickening in macular right eye (OD) is now resolved. Patient is recent heart transplant recipient. Patient education regarding importance of regular and timely eye evaluation as well as maintaining good control of blood glucose and other co-morbidities. Recommend follow up with PCP as indicated. Monitor at annual eye examination or sooner if any changes in vision. 2. Presence of intraocular lens Bilateral pseudophakia with clear posterior capsule and mild residual hyperopia of both eyes with astigmatism and presbyopia. Copy of updated spectacle Rx issued. Monitor at annual exam or sooner if any changes in vision occur. 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
--- OUTSIDE RECORDS SUMMARY | 2024-07-08 14:59 | XMS_ITS | Encounter Summary ---
Author Organization [employer] Address [address] [place] [address] Care Team Providers Care Self Contained Behavior Unit Teacher Name Role Phone Name, Yoandy LUGO Primary Care Provider [phone] Encounter Details Date Type Department Care Team (Latest Contact Info) Description 07/07/2024 Travel Social History Tobacco Use Types Packs/Day Years [...] AM EDT documented as of this encounter Plan of Treatment Upcoming Encounters Date Type Department Care Team (Late st Contact Info) Description 07/27/2024 10:45 AM EDT Office Visit [facility] [address] [place] [address] Name, MD Yoandy [address] [place] [address] documented as of this encounter Visit Diagnoses Not on filedocumented in this encounter Additional Health Concerns Assessment Noted Time PHQ-9 Depression Total Score: 0 10/20/19 24 4:12 PM EDT documented as of this encounter Care Teams Self Contained Behavior Unit Teacher Relationship Specialty Start Date End Date Name, MD Yoandy [address] [place] [address] PCP - General Internal Medicine 10/19/23 [facility] 01/19/24 documented as of this encounter
--- OUTSIDE RECORDS SUMMARY | 2024-07-08 14:59 | XMS_ITS | Encounter Summary ---
Author Organization [employer] [facility] Address [address] [place] [address] Care Team Providers Care Street Light Servicer Name Role Phone Name, Yoandy LUGO Primary Care Provider Name, Yoandy LUGO Primary Care Provider [phone] Reason for Visit * Reason Onset Date Comments FYI 10/01/2022 Encounter Details Date Type Department Care Team ([facility] st Contact Info) Description 10/01/2022 Telephone [facility] MEDICINE [address] [place], [place] [phone] Name, MD Yoandy [address] [place] [address] FYI Social History Tobacco Use Types Packs/Day [...] - 10/01/2022 3:26 PM EDT Tc from [facility] facility that patient during their vacation in [place] had two Heart Attacks and is currently hospitalized since 09/15/2022 at the [facility] documented in this encounter Plan of Treatment Upcoming Encounters Date Type Department Care Team (Late st Contact Info) Description 07/27/2024 10:45 AM EDT Office Visit [facility] [address] [facility] [address] Name, MD Yoandy [address] [facility] [place] [address] documented as of this encounter Visit Diagnoses Not on filedocumented in this encounter Care Teams Street Light Servicer Relationship Specialty Start Date End Date Name, MD Yoandy Jensen [facility] [place] [address] PCP - General Family Medicine 01/18/21 06/04/23 Name, [place] [address] PCP - General Internal Medicine 10/19/23 [facility] 01/19/24 documented as of this encounter
--- OUTSIDE RECORDS SUMMARY | 2024-07-08 14:59 | XMS_ITS | Encounter Summary ---
Author Organization [facility] [facility] Address [address] [facility] [address] 7t [place] [address] Care Team Providers Care Satellite Manager Name Role Phone Name, Yoandy LUGO Primary Care Provider [phone] Name, Yoandy LUGO Primary Care Provider [phone] Encounter Details Date Type Department Care Team (Late st Contact Info) Description 03/21/2022 Orders Only [facility] [address] [place] [address] [phone] Coby Flores RN Social History Tobacco Use [...] Description 07/27/2024 10:45 AM EDT Office Visit [facility] [address] [place] [address] [phone] Name, MD Yoandy [address] [place] [phone] documented as of this encounter Procedures Procedure Name Priority Date/Time Associated Diagnosis Comments B TYPE NATRIURETIC PEPTIDE (BNP) Routine 06/27/2022 9:53 AM EDT HEPATIC FUNCTION PANEL Routine 06/27/2022 9:53 AM EDT LIPID PANEL, STANDARD Routine 06/27/2022 9:53 AM EDT BASIC METABOLIC PANEL Routine 06/27/2022 9:53 AM EDT documented in this encounter Results * Lipid Panel, Standard (06/27/2022 9:53 AM EDT) Triglycerides 84 mg/dL [facility] Comment:Desirable Triglyceri de: less than 150 mg/dLBorderline High Triglyceride 150-199 mg/dLHigh Triglyceride: 200-499 mg/dLVery High Triglyceride: greater than or equal to 5OO mg/dL Cholesterol 154 mg/dL [facility] Comment:Desirable Cholestero l: less than 200 mg/dLBorderline High Cholesterol: 200-239 mg/dLHigh Cholesterol: greater than 239 mg/dL LDL Cholesterol Calculated 104 mg/dl [facility] Comment:Desirable LDL: less than 100 mg/dLNear Optimal/Above Optimal LDL: 110- 129 mg/dLBorderline High LDL: 130-159 mg/dLHigh LDL: 160-189 mg/dLVery High LDL: greater than or equal to 190 mg/dL HDL Cholesterol 34 mg/dL [facility] Comment:Desirable HDL: great er than 40 mg/dL Note: This HDL assay may give artificially low results in patients with liver disease. 06/27/2022 9:53 AM EDT 06/27/2022 9:53 AM EDT [facility] External Provider LAB BLO OD ORDERABLES Final Result [facility] [address] [place] [phone] * (ABNORMAL) Basic Metabolic Panel (06/27/2022 9:53 AM EDT) Sodium 143 135 - 145 mmol/L [facility] Potassium 4.6 3.3 - 5.1 mmol/L [facility] Chloride 108 96 - 108 mmol/L [facility] Carbon Dioxide 26 22 - 29 mmol/L [facility] Anion Gap 14 12 - 20 [facility] Urea Nitrogen (BUN) 13 9 - 16 mg/dL [facility] Creatinine, Serum 1.02 0.5 - 1.4 mg/dL [facility] Estimated Glomerular Filt Rate >60 [facility] Comment:NOTE: For -Am erican individuals, multiply the result by 1.210.Chronic Kidney Disease: Estimated GFR < 60 mL/min/1.06k9Zfixrg Kidney Disease: Estimated GFR < 15 mL/min/1.73m2 Glucose 141(H) 60 - 115 mg/dL [facility] Calcium 9.4 8.4 - 10.2 mg/dL [facility] 06/27/2022 9:53 AM EDT 06/27/2022 9:53 AM EDT [facility] External Provider LAB BLO OD ORDERABLES Final Result [facility] [address] [place] [phone] * Hepatic Function Panel (06/27/2022 9:53 AM EDT) Bilirubin, Total 1.0 0.0 - 1.0 mg/dL [facility] Bilirubin, Direct 0.3 0.0 - 0.5 mg/dL [facility] Aspartate Amino Transferase 19 5 - 37 U/L [facility] Alanine Aminotransferase 24 0 - 40 U/L [facility] Total Protein 6.7 6.5 - 8.0 g/dL [facility] Albumin Level 4.2 3.5 - 5.0 g/dL [facility] Alkaline Phosphatase 61 39 - 117 U/L [facility] 06/27/2022 9:53 AM EDT 06/27/2022 9:53 AM EDT [facility] External Provider LAB BLO OD ORDERABLES Final Result Performing Organization Address [facility] Co de Phone Number [facility] [address] [place] [phone] [phone] * (ABNORMAL) B Type Natriuretic Peptide (BNP) (06/27/2022 9:53 AM EDT) B Type Natriuretic Peptide 332(H) <100 pg/mL [facility] Comment:For those patients w ho are being treated with Natrecor(nesiritide, recombinant BNP), BNP testing should beperformed at least two hours post treatment in order toensure that only endogenous levels of BNP are detected. 06/27/2022 9:53 AM EDT 06/27/2022 9:53 AM EDT [facility] External Provider LAB BLO OD ORDERABLES Final Result Performing Organization Address [facility] de Phone Number [facility] [address] [place] [phone] documented in this encounter Visit Diagnoses Not on filedocumented in this encounter Care Teams Satellite Manager Relationship Specialty Start Date End Date NameYoandy MD [address] [place] [address] PCP - General Family Medicine 01/18/21 06/04/23 Name, MD Yoandy [address] [place] [address] PCP - General Internal Medicine 10/19/23 [facility] 01/19/24 documented as of this encounter
--- OUTSIDE RECORDS SUMMARY | 2024-07-08 14:59 | XMS_ITS | Clinical Summary ---
Author Organization [employer] Address [address] [place] [address] Care Team Providers Care Internal Audit Consultant Name Role Phone Name, Yoandy LUGO Primary Care Provider [phone] Allergies Active Allergy Reactions Criticality Noted Date [...] 2 times daily. 10/08/ Active nystatin (Mycostatin) 856240 UNIT/ML suspension Swish and swallow 500,000 Units [...] bedtime. 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 Dysphagia 02/08/2023 Positive colorectal cancer screening using Colog uard test 02/04/2023 Overview (11/03/2023): Negative Colonoscopy 06/2023: urgical Pathology Exam - Order: [id number] Component 4 mo ago Case Report Surgicals Case: [id number] Authorizing Provider: Donny Encarnacion Collected: 2023 0843 MD Eugene Ordering Location: [facility] Received: 2023 1011 Pathologist: Shannan [...] IHC, or [place] [address]. Resulting Agency [facility] Specimen Collected: 06/19/23 08:43 Performed by: [facility] Last Resulted: 06/23/23 17:27 Athscl heart [...] were answered. Coronary artery disease invo lving hughes coronary artery of hughes heart without angina pectoris 11/14/2022 Overview (11/02/2023): Last Assessment & Plan: - nonobstructive disease - continue medical therapy with aspirin, statin, BB - denies angina Stridor 11/13/2022 Overview (11/02/2023): Last Assessment & Plan: Improved after last dilation in April 2023. Mild stridor noted today in clinic Discussed with his primary keyboard specialist Dr. 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 Follows at [facility] cardi Systolic dysfunction 03/13/2022 History of bradycardia 03/13/2022 Family history of prostate cancer 03/13/2022 Complete heart block 04/06/2020 Overview (11/02/2023): Added automatically from request for surgery [id number] Last Assessment & Plan: History of biventricular pacemaker that was upgraded to MEDIA PRODUCTION SUPPORT MANAGER defibrillator in September. Device interrogated today with [...] starting statin -No need for ischemic evaluation technician terminal and repeater (current) use of o ral hypoglycemic drugs 04/06/2022 11/03/2023 Other specified diseases of upper respiratory tract 04/06/2022 11/03/2023 Presence of automatic (impla ntable) cardiac defibrillator 04/06/2022 02/05/2024 Cardiac pacemaker in situ 03/13/2022 Uncontrolled type 2 diabetes mellitus with hyperglycemia 04/06/2020 02/05/2024 Overview (11/02/2023): Last Assessment & Plan: Encounters Date Type Department Care Team Description 07/07/2024 9:00 AM EDT Office Visit [facility] OPTOMETRY [address] [place] [address] Lena Keene, OD 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, unspecified whether snf insulin use ([facility]) (Primary Dx); Presence of intraocular lens 07/07/2024 Travel 06/23/2024 Telephone [facility] MEDICINE [address] [place] [address] Name, MD Yoandy 04/28/2024 9:00 AM EST Office Visit [facility] MEDICINE [address] [place] [address] NameYoandy MD COVID-19 (Primary Dx); Rhinovirus; Tracheal stenosis; Type 2 diabetes mellitus with other circulatory complication, without long-term current use of insulin ([facility]) 04/21/2024 Telephone [facility] MEDICINE [address] [place] [address] Yoandy Tillman MD Results 04/19/2024 Telephone [facility] MEDICINE [address] [place] [address] Anisa Cadena MA Chat Prep from Last 3 Months Immunizations Name Administration [...] with others, in a hotel, in a usp, living outside on the street, on a [...] Description 07/27/2024 10:45 AM EDT Office Visit [facility] MEDICINE [address] [place] [address] Name, MD Yoandy [address] [place] [address] Health Maintenance Due Date Last Done Comments CT Colonography 1955 Colonoscopy 1955 FIT 1955 FOBT 1955 Sigmoidoscopy 1955 Hepatitis B Vaccines (2 of 3 - 19+ 3-dose series) 12/24/2023 11/26/2023 Zoster Vaccines (2 of 2) 01/21/2024 11/26/2023 COVID-19 Vaccine ( season) 2024 02/05/2024, 02/25/2022, 01/10/2021, Additional history exists Diabetes: Hemoglobin A1C 08/23/2024 025, 02/05/2024, 10/20/2023, Additional history exists Alcohol/Substance Use Screening 10/19/2024 10/20/2023 Depression Screening 10/19/2024 10/20/2023, 10/20/19 24 SDOH Screening 10/19/2024 10/20/2023 Lipid Panel 01/25/2025 01/26/2024, 0307/2022, 06/23/2022, Additional history exists RSV Patients and Patients Aged 60 years or older (1 - Risk 60-74 years 1-dose series) 01/28/2025 Postponed from 2015 (Other System Reasons) Diabetes: Foot Exam 02/04/2025 02/05/2024, Diabetes: Urine Protein Screening 04/14/2025 04/14/2024, 06/23/2022, 05/29/2021 Eye Exam 07/07/2025 07/07/2024, 04/0 06/2024, 07/07/2024, Additional history exists Tobacco Screening 07/07/2025 07/07/2024 Colorectal Cancer Screening 01/21/2026 FIT DNA/Cologuard 01/21/2026 [...] complication, without long-term current use of insulin ([facility]) GLUCOSE, WHOLE BLOOD Routine 04/14/2024 3:27 PM EST TSH W/REFLEX TO FT4 Routine 04/14/2024 1 1:04 AM EST MAGNESIUM Routine 04/14/2024 11:04 AM EST ALBUMIN, RANDOM URINE W/CREATININE Routine 04/14/2024 11:04 AM EST Type 2 diabetes mellitus with other circulatory complication, without long-term current use of insulin ([facility]) COMPREHENSIVE METABOLIC PANEL Routine 04/14/2024 11:04 AM EST On amiodarone therapy Abnormal LFTs LIPID PANEL, STANDARD Routine 06/27/2022 9:53 AM EDT from Last 3 Months or Most Recently Relevant to Health Maintenance Results * (ABNORMAL) Hemoglobin A1c (05/26/2024 12:08 PM EST) Hemoglobin A1c 7.4(H) <6.0 % [facility] Comment:Hemoglobin A1C Refer ence Range Adults: 4.8 - 6.0 % Non diabetic: < 6.0 % Goal: < 7.0 %Additional Action Suggested: > 8.0 %Note: Hemoglobin A1c results are invalid for patients with abnormal amounts of HbF. Blood transfusions may impact the HbA1c concentration in the patient sample. Estimated Average Glucose 166 mg/dL [facility] Comment:eAG = Estimated ave rage glucose which is %A1C expressed asaverage glucose, using the formula of the L2I-LxwjmyhRfojrei Glucose study (ADAG), Diabetes Care, Vol.31,#8,Nov. 2007 05/26/2024 12:0 8 PM EST 05/26/2024 12:08 PM EST us Generic External Data Provider LAB BLOOD ORDERAB LES Final Result [facility] [address] [place] [phone] * (ABNORMAL) Glucose, Whole Blood (05/26/2024 11:06 AM EST) Only the most recent of2 resultswithin the time period is included. Glucose, Whole Blood 138(H) 60 - 115 mg/dL [facility] Comment:METER #: [id number] Testing performed in the Endocrinology Department [address] , [address], [facility]. 05/26/2024 11:0 6 AM EST 05/26/2024 11:13 AM EST us Generic External Data Provider LAB BLOOD ORDERAB LES Final Result [facility] [address] [place] [phone] [phone] * (ABNORMAL) Comprehensive Metabolic Panel (05/20/2024 11:35 AM EST) Only the most recent of2 resultswithin the time period is included. Sodium 140 135 - 145 mmol/L [facility] Potassium 3.6 3.3 - 5.1 mmol/L [facility] Chloride 108 96 - 108 mmol/L [facility] Carbon Dioxide 25 22 - 29 mmol/L [facility] Anion Gap 11(L) 12 - 20 [facility] Urea Nitrogen (BUN) 10 9 - 16 mg/dL [facility] Creatinine, Serum 0.93 0.5 - 1.4 mg/dL [facility] Estimated Glomerular Filt Rate >60 [facility] Comment:Chronic Kidney Disea se: Estimated GFR < 60 mL/min/1.95d0Lscvxr Kidney Disease: Estimated GFR < 15 mL/min/1.73m2 Glucose 114 60 - 115 mg/dL [facility] Calcium 9.0 8.4 - 10.2 mg/dL [facility] Bilirubin, Total 0.4 0.0 - 1.0 mg/dL [facility] Aspartate Amino Transferase 13 5 - 37 U/L [facility] Alanine Aminotransferase 17 0 - 40 U/L [facility] Total Protein 6.4(L) 6.5 - 8.0 g/dL [facility] Albumin Level 4.0 3.5 - 5.0 g/dL [facility] Alkaline Phosphatase 53 39 - 117 U/L [facility] 05/20/2024 11:3 5 AM EST 05/20/2024 1:10 PM EST us Yoandy Tillman MD LAB BLOOD ORDERABLES Final Resul t Performing Organization Address City/[facility]/ZIP Co de Phone Number [facility] [address] [place] [phone] * (ABNORMAL) POCT Glucose (04/28/2024 9:34 AM EST) Glucose Blood, POC 253(A) 60 - 200 mg/dL QC Media Lot # [id number] Lot# Expiration Date Blood Capillary blood specimen / Unknown 04/28/2024 9:34 AM EST Result Jerry Tillman MD POINT OF CARE TEST ENTER/EDIT OR DERABLES Final Result * TSH with Reflex to Free T4 (04/14/2024 11:04 AM EST) TSH reflex Free T4 1.57 0.32 - 4.0 uIU/mL [facility] 04/14/2024 11:0 4 AM EST 04/14/2024 1:11 PM EST Result Jerry Tillman MD LAB BLOOD ORDERABLES Final Resul t Performing Organization Address [facility] Co de Phone Number [facility] [address] [place] [phone] * Albumin, Random Urine W/Creatinine (04/14/2024 11:04 AM EST) Creatinine, Urine 109.08 mg/dL [facility] Microalbumin Urine 6.0 mg/L [facility] Microalbum Creatinine Ratio Ur 5.5 <30 ug/mg cr [facility] Comment:Albumin/Creatinine R atio Reference Ranges: Normal: < 30 ug/mg creatinine Microalbuminuria: 30 - 300 ug/mg creatinineClinical Albuminuria: > 300 ug/mg creatinine Urine (Urine, Random) 04/14/2024 11:04 AM EST 04/14/2024 1:04 PM EST us Yoandy Tillman MD LAB URINE ORDERABLES Final Resul t Performing Organization Address City/[facility]/ZIP Co de Phone Number [facility] [address] [place] [phone] * Magnesium (04/14/2024 11:04 AM EST) Magnesium 1.6 1.6 - 2.6 mg/dL [facility] 04/14/2024 11:0 4 AM EST 04/14/2024 1:11 PM EST Yoandy Tillman MD LAB BLOOD ORDERABLES Final Resul t Performing Organization Address [facility] Co de Phone Number [facility] [address] [place] [phone] * Lipid Panel, Standard (06/27/2022 9:53 AM EDT) Triglycerides 84 mg/dL [facility] Comment:Desirable Triglyceri de: less than 150 mg/dLBorderline High Triglyceride 150-199 mg/dLHigh Triglyceride: 200-499 mg/dLVery High Triglyceride: greater than or equal to 5OO mg/dL Cholesterol 154 mg/dL [facility] Comment:Desirable Cholestero l: less than 200 mg/dLBorderline High Cholesterol: 200-239 mg/dLHigh Cholesterol: greater than 239 mg/dL LDL Cholesterol Calculated 104 mg/dl [facility] Comment:Desirable LDL: less than 100 mg/dLNear Optimal/Above Optimal LDL: 110- 129 mg/dLBorderline High LDL: 130-159 mg/dLHigh LDL: 160-189 mg/dLVery High LDL: greater than or equal to 190 mg/dL HDL Cholesterol 34 mg/dL [facility] Comment:Desirable HDL: great er than 40 mg/dL Note: This HDL assay may give artificially low results in patients with liver disease. 06/27/2022 9:53 AM EDT 06/27/2022 9:53 AM EDT [facility] External Provider LAB BLO OD ORDERABLES Final Result [facility] [address] [place] [phone] from Last 3 Months or Most Recently Relevant to Health Maintenance Insurance FULL MEDICARE [facility] [address] [place] [phone] [place] [phone] [place] [phone] Care Teams Internal Audit Consultant Relationship Specialty Start Date End Date Name, MD Yoandy [address] [place] [phone] PCP - General Internal Medicine 10/19/23 [facility] 01/19/24
[2024-07-08 16:17] LABS: MANUAL DIFF FLAG NO
[2024-07-08 16:38] LABS: Alanine Aminotransferase 15 U/L (0-40); Alkaline Phosphatase 62 U/L (39-117); Anion Gap 11 (12-20); Aspartate Amino Transferase 24 U/L (5-37); Bilirubin Total 0.6 mg/dL (0.0-1.0); Blood Urea Nitrogen 15 mg/dL (9-16); Carbon Dioxide 24 mmol/L (22-29); Chloride 110 mmol/L (96-108); Estimated Glomerular Filt Rate > 60; Glucose Random 138 mg/dL (60-115); Potassium 4.5 mmol/L (3.3-5.1); Sodium 140 mmol/L (135-145); Total Protein 6.3 g/dL (6.5-8.0)
[2024-07-08 16:52] LABS: Basophils Percent Auto 0.4 % (0-2); Eosinophils Percent Auto 1.1 % (0-4); Hematocrit 28.4 % (42.0-52.0); Hemoglobin 9.4 g/dl (14.0-18.0); Imm Gran Abs Auto 0.04 X10*3/uL (0.00-0.03); Imm Gran Pct Auto 1.4 % (0.0-0.4); Lymphocytes Absolute Auto 0.3 X10*3/uL (1.2-4.9); Lymphocytes Percent Auto 10.6 % (20-40); Mean Corpuscular HGB Conc 33.1 g/dl (31.0-36.0); Mean Corpuscular Hemoglobin 28.4 pg (27.0-33.0); Mean Corpuscular Volume 85.8 fL (80.0-98.0); Mean Platelet Volume 10.3 fL (9.4-12.4); Monocytes Absolute Auto 0.4 X10*3/uL (0.1-1.2); Monocytes Percent Auto 13.8 % (2-11); Neutrophils Absolute Auto 2.1 x10*3/uL (2.0-8.3); Neutrophils Percent Auto 72.7 % (45-73); Platelet Count 133 X10*3/uL (160-400); Red Blood Count 3.31 X10*6/uL (4.60-5.80); Red Cell Distribution Width 13.4 % (11.0-16.0); White Blood Count 2.8 X10*3/uL (4.8-10.8)
[2024-07-09 09:59] LABS: Tacrolimus Prograf 13.6 mcg/L
[2024-07-16 12:13] LABS: CMV DNA PCR Qn Source Whole Blood; CMV DNA Qn PCR 4.14 log IU/mL
[2024-07-18 13:13] LABS: CMV DNA Qn Real Time PCR 13745 IU/mL
== END 2024-07-08 13:01 | disposition home or self-care (01) ==
LOC: HO.HHCL 13:00
PROVIDERS: Visit Provider Internal Medicine Infectious Disease
DX: T86.23 Heart transplant infection (principal)
CPT/HCPCS: 36415; 80053; 80197; 85025; 87497

== ENCOUNTER 2024-07-19 09:37 | Outpatient (REF) | payer MEDICARE, SELFPAY ==
--- OUTSIDE RECORDS SUMMARY | 2024-07-19 10:52 | XMS_ITS | Data Portability ---
Author Organization [place] - [facility], Allergy Address 100 [facility] 100 [place] [address] Assessment Encounter Date Assessment Date Assessment LastModified by Organization Details LastModified Time 02/25/2024 02/25/2024 68-year-old male presents today for evaluation of stridor and tracheal stenosis. Symptoms seem to worsen about 3 weeks ago following dilation in November. Of note he had heart transplant about 2 months ago at [facility]. Flexible laryngoscopy did not reveal any [...] heart transplant. Thank you. 2023 Tarsha wagner [facility] Pulmonary Medicine, [address] [place], [address], 4 09:56:34 Procedures None recorded. Surgeries None recorded. Imaging None recorded. Medication Orders None recorded. Patient TargetsNo targets recorded. Patient InstructionsNo instructions recorded. Reason for Referral Checking Department Supervisor Referral for T gaby stenosis following tracheostomy Established patient of Dr Alegre. Needs follow up appt/repeat endoscopy. Patient has recent heart transplant. Thank you. Referring Physician: Sandip Regalado, Otolaryngology, Encounter Date: 02/25/2024 Problems Name Problem SNOMED Code Status Onset Date Resolution Date Notes Provider Name and Address Organization Details Recorded Time Tracheal stenosis following tracheostomy 83522679 Active 2023 SANDIP REGALADO MD [address] [place] [address],[place] [address], [place], [address], [facility] 4 12:10:02 Sensorineural hearing loss of bilateral ears 204691264 Active 2024 BORA GRAY AUD [address] [place] [address],[place] [address], [place], [phone], [facility] 5 16:02:33 Problem Notes None recorded. Procedures Surgical History Date Name Laterality Status Provider Name and Address Organization Details Recorded Time 04/15/19 25 Comp Audio with Tymps (38880 & 18115) completed JACQUE LUGO [address] [place] [address],[place] [address], [place], [address], [facility] 04/15/2024 16:02:37 02/25/20 24 Fiberoptic Laryngoscopy (Comprehensive) completed SANDIP REGALADO MD [address] [place] [address],[address], [address], [facility] 02/25/2024 12:11:38 Imaging Results None recorded. [...] Not Available Not Available Comfort EZ Pen [place] 32 gauge x 5/32 active Not Available [...] Updated DateTime 02/25/2024 172.72 cm 26.8 kg/m2 65694.26 g Manda Ly [place] [facility] 02/25/2024 11:47:14 Date Recorded Body height Body mass index (BMI) Body weight Provider Name and Address Organization Details Last Updated DateTime 04/15/2024 172.72 cm 20.2 kg/m2 15391.79 g Manda Ly [facility] 04/15/2024 16:28:34 Social History None recorded. Functional Status None recorded. Mental Status None recorded. Family History Nothing Reported. Medical History Condition Response Heart Problems Y Diabetes Y Hyperlipidemia Y Past Encounters Encounter ID Performer Location Encounter Start Date Encounter Closed Date Diagnosis/Indication Diagnosis SNOMED-CT Code Diagnosis ICD10 Code Diagnosis Note [id number] SANDIP REGALADO MD [facility] [address] [address] 02/25/2024 11:26:24 02/25/2024 12:26:39 Tracheal stenosis following tracheostomy 15449658 J95.03 [id number] SANDIP REGALADO MD [facility] [address] [address] 04/15/2024 15:37:29 04/15/2024 16:57:22 Sensorineural hearing loss of bilateral ears 888286219 H90.3 68 yo M with a history [...] and there was likely some irritation here. [id number] JACQUE LUGO [facility] [address] [address] 04/15/2024 15:59:22 04/18/2024 07:41:17 Sensorineural hearing loss of bilateral ears 616292001 H90.3 Right Ear:Normal hearing through 1.5K Hz [...] Name 02/25/2024 2 [place] [id number] Matthew L Avila [id number] Matthew Donny Avila Avila 02/25/2024 1 [place] Matthew Avila Avila [id number] 44 Matthew Donny Avila Avila 04/15/2024 2 [place] [id number] Matthew L Avila [id number] Matthew Donny Avila Avila 04/15/2024 1 [place] Matthew Avila Avila [id number] 44 Matthew Donny Avila Avila 04/15/2024 2 [place] [id number] Matthew L Avila [id number] Matthew Donny Avila Avila 04/15/2024 1 [place] Matthew Avila Avila [id number] 44 Matthew Donny Avila Avila Notes Date Note Type Note Provider Name and Address Organization Details Recorded Time 02/25/2024 text/html 68 yo M here for tracheal stenosis.Wheezing, had had 5 bronchoscopies. Scarring in the trachea following tracheostomy due to intensive care after heart attack, last year 2022 in [place], was on vacation. Coughing a lot. Had [...] for lung volume SANDIP REGALADO MD [address] [facility],[place] [address], [place], [address], [place] [facility] 02/26/2024 10:58:54 04/15/2024 text/html Starting feeling numb on the side of the ear right after his surgeryTTP over jaw Has seen Dr. Walton. ASNDIP REGALADO MD [address] [facility],[place] [address], [place], [address], [place] [facility] 04/18/2024 07:25:33
[2024-07-19 11:19] LABS: Estimated Average Glucose 126 mg/dL; Hemoglobin A1C 116.4018 umol/L; Total Hemoglobin (HGBA1C) 2758.2384 umol/L
== END 2024-07-19 09:38 | disposition home or self-care (01) ==
LOC: HO.HHCL 09:37
PROVIDERS: Visit Provider Internal Medicine
DX: E11.8 Type 2 diabetes mellitus with unspecified complications (principal)
CPT/HCPCS: 36415; 83036

== ENCOUNTER 2024-07-22 10:22 | Outpatient (REF) | payer MEDICARE, SELFPAY ==
--- OUTSIDE RECORDS SUMMARY | 2024-07-22 11:18 | XMS_ITS | Clinical Summary ---
Author Organization [employer] Address [address] [facility] [address] [place] [address] Care Team Providers Care Transfer Agent Name Role Phone Name, Yoandy LUGO Primary Care Provider [phone] Allergies Active Allergy Reactions Criticality Noted Date Comments Lisinopril Cough 03/13/2022 Medications Blood Glucose Monitoring Suppl (FreeStyle glucose monitoring) kit 1 each if needed. Test 1 time by intradermal route everyday Active FREESTYLE LITE test strip TEST BLOOD SUGAR EVERY DAY 100 strip 11 06/26/19 23 Active aspirin 81 MG chewable tablet Chew 1 tablet (81 mg) Once daily. 90 tablet 08/19/19 23 Active torsemide (Demadex) 10 MG tablet Take 1 tablet (10 mg) by mouth Once per day. 30 tablet 1 11/03/19 24 Active mexiletine (Mexitil) 150 MG capsule Take 1 capsule (150 mg) by mouth every 8 (eight) hours. 90 capsule 11 11/03/19 24 025 Active spironolactone (Aldactone) 25 MG tablet Take 1 tablet by mouth Once per day. 09/02/19 24 Active metoprolol succinate XL (Toprol-XL) 25 MG 24 hr tablet Take 0.5 tablets by mouth Once per day. Do not crush or chew. Active budesonide (Pulmicort) 0.5 MG/2ML nebulizer solution USE 1 VIAL IN NEBULIZER TWICE DAILY RINSE MOUTH AFTER USE Active amoxicillin (Amoxil) 500 MG capsule TAKE FOUR CAPSULES BY MOUTH ONE HOUR BEFORE DENTAL WORK. 05/08/19 24 Active mycophenolate (Cellcept) 500 MG tablet Take 1,000 mg by mouth 2 times daily. 10/08/ Active pravastatin (Pravachol) 40 MG tablet Take 40 mg by mouth at bedtime. 01/12/20 Active pantoprazole (ProtoNix) 40 MG EC tablet Take 40 mg by mouth before breakfast. 01/13/20 Active sennosides (Senokot) 8.6 MG tablet Take 8.6 mg by mouth if needed in the morning and at bedtime. 01/12/20 Active Sharps Container (BD Sharps Lead Carpenter) [facility] disposal of needles and lancets 01/14/20 Active sodium zirconium cyclosilicate (Lokelma) 10 g packet Take 10 g by mouth if needed each day. 01/21/20 Active sulfamethoxazole- trimethoprim (Bactrim DS) 800-160 MG tablet Take 1 tablet by mouth Once per day. 01/13/20 Active sodium chloride 0.9 % nebulizer solution USE 3ML VIAL IN NEBULIZER TWICE DAILY FOR 14 DAYS. MIX WITH 10 DROPS OF CIPRODEX SOLUTION. 07/31/19 Active HumaLOG KWIKPEN 100 UNIT/ML injection 12 units prior to meals 01/14/20 Active calcium carbonate (Tums) 500 MG chewable tablet Chew 1 tablet (500 mg) 2 times daily. 02/05/20 Active cholecalciferol (Vitamin D-3) 25 MCG (1000 UT) capsule Take 1 capsule (25 mcg) by mouth Once per day. 02/05/20 Active insulin NPH, Isophane, (HumuLIN N,NovoLIN N) 100 UNIT/ML injection 30 units in the morning 02/05/20 Active nystatin (Mycostatin) 401377 UNIT/ML suspension Swish and swallow 500,000 Units 4 times daily. 01/12/20 predniSONE (Deltasone) 10 MG tablet Take 30 mg by mouth Once per day. 01/14/20 tacrolimus (Prograf) 5 MG capsule Take 5 mg by mouth 2 times daily. 01/14/20 Active Problems Problem Noted Date Diagnosed Date Heart transplant recipient 02/05/2024 Overview (02/05/2024): #s/p OHT 12/28/23 #s/p impella explant #s/p ICD explant #hx NICM Seizure disorder 02/05/2024 Immunocompromised 02/05/2024 History of [place] (myocardial infarction) 10/20/2023 Memory problem 10/20/2023 Shortness [...] 's report Asked patient to call his Entry Level Accountant regarding his increased weight/swelling for further recommendations. Dysphagia 02/08/2023 Positive colorectal cancer screening using Colog uard test 02/04/2023 Overview (11/03/2023): Negative Colonoscopy 06/2023: urgical Pathology Exam - Order: [id number] Component 4 mo ago Case Report Surgicals Case: [id number] Authorizing Provider: Donny Encarnacion Collected: 2023 0843 MD Eugene Ordering Location: [facility] GI Lab Received: 2023 1011 Pathologist: Shannan [...] IHC, or [place] [address]. Resulting Agency [facility] Specimen Collected: 06/19/23 08:43 Performed by: [facility] Last Resulted: 06/23/23 17:27 Athscl heart [...] were answered. Coronary artery disease invo lving [place] coronary artery of [place] heart without angina pectoris 11/14/2022 Overview (11/02/2023): Last Assessment & Plan: - nonobstructive disease - continue medical therapy with aspirin, statin, BB - denies angina Stridor 11/13/2022 Overview (11/02/2023): Last Assessment & Plan: Improved after last dilation in April 2023. Mild stridor noted today in clinic Discussed with his primary red leader Dr. 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 Follows at [facility] cardi Systolic dysfunction 03/13/2022 History of bradycardia 03/13/2022 Family history of prostate cancer 03/13/2022 Complete heart block 04/06/2020 Overview (11/02/2023): Added automatically from request for surgery [id number] Last Assessment & Plan: History of biventricular pacemaker that was upgraded to SUPERVISOR CONDITIONING YARD defibrillator in September. Device interrogated today with [...] classified elsewhere 01/30/2023 1 04/06/2023 Orthostatic hypotension 01/25/2023 11/0 04/2023 Multiple wounds 10/10/2022 11/03/2023 Elevated troponin 09/16/2022 [...] starting statin -No need for ischemic evaluation halfway (current) use of o ral hypoglycemic drugs 04/06/2022 11/03/2023 Other specified diseases of upper respiratory tract 04/06/2022 11/03/2023 Presence of automatic (impla ntable) cardiac defibrillator 04/06/2022 02/05/2024 Cardiac pacemaker in situ 03/13/2022 Uncontrolled type 2 diabetes mellitus with hyperglycemia 04/06/2020 02/05/2024 Overview (11/02/2023): Last Assessment & Plan: Encounters Date Type Department Care Team Description 07/18/2024 Telephone [facility] MEDICINE [address] [place] [address] Mary Palm RN Critical Limb Ischemia 07/07/2024 9:00 AM EDT Office Visit [facility] OPTOMETRY [address] [place] [address] Lena Keene, OD 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, unspecified whether ferry terminal supervisor insulin use (CMS/[facility]) (Primary Dx); Presence of intraocular lens 07/07/2024 Travel 06/23/2024 Telephone [facility] MEDICINE [address] [place] [address] Name, MD Yoandy 04/28/2024 9:00 AM EST Office Visit [facility] [address] [place] [address] Name, MD Yoandy COVID-19 (Primary Dx); Rhinovirus; Tracheal stenosis; Type 2 diabetes mellitus with other circulatory complication, without long-term current use of insulin (CMS/[facility]) from Last 3 Months Immunizations Name Administration [...] with others, in a hotel, in a detention, living outside on the street, on a [...] Description 07/27/2024 10:45 AM EDT Office Visit [facility] [address] [facility] [place] [address] Name, [place] [address] Health Maintenance Due Date Last Done Comments [...] complication, without long-term current use of insulin ([facility]/FORM[facility]) ALBUMIN, RANDOM URINE W/CREATININE Routine 04/14/2024 11:04 AM EST Type 2 diabetes mellitus with other circulatory complication, without long-term current use of insulin ([facility]) LIPID PANEL, STANDARD Routine 06/27/2022 9:53 AM EDT from Last 3 Months or Most Recently Relevant to Health Maintenance Results * (ABNORMAL) Hemoglobin A1c (05/26/2024 12:08 PM EST) Hemoglobin A1c 7.4(H) <6.0 % [facility] Comment:Hemoglobin A1C Refer ence Range Adults: 4.8 - 6.0 % Non diabetic: < 6.0 % Goal: < 7.0 %Additional Action Suggested: > 8.0 %Note: Hemoglobin A1c results are invalid for patients with abnormal amounts of HbF. Blood transfusions may impact the HbA1c concentration in the patient sample. Estimated Average Glucose 166 mg/dL LABS Comment:eAG = Estimated ave rage glucose which is %A1C expressed asaverage glucose, using the formula of the I5F-OrnzptnShtvoqx Glucose study (ADAG), Diabetes Care, Vol.31,#8,2007 05/26/2024 12:0 8 PM EST 05/26/2024 12:08 PM EST Generic External Data Provider LAB BLOOD ORDERAB LES Final Result Performing Organization Address [facility]/ZIP Co de Phone Number LABS [address] [place] [phone] * (ABNORMAL) Glucose, Whole Blood (05/26/2024 11:06 AM EST) Glucose, Whole Blood 138(H) 60 - 115 mg/dL LABS Comment:METER #: [id number] Testing performed in the Endocrinology Department [address] , [address], [facility]. 05/26/2024 11:0 6 AM EST 05/26/2024 11:13 AM EST us Generic External Data Provider LAB BLOOD ORDERAB LES Final Result Performing Organization Address [facility]/ZIP Co de Phone Number LABS [address] [place] [phone] * (ABNORMAL) Comprehensive Metabolic Panel (05/20/2024 11:35 AM EST) Sodium 140 135 - 145 mmol/L LABS Potassium 3.6 3.3 - 5.1 mmol/L LABS Chloride 108 96 - 108 mmol/L LABS Carbon Dioxide 25 22 - 29 mmol/L LABS Anion Gap 11(L) 12 - 20 LABS Urea Nitrogen (BUN) 10 9 - 16 mg/dL LABS Creatinine, Serum 0.93 0.5 - 1.4 mg/dL LABS Estimated Glomerular Filt Rate >60 LABS Comment:Chronic Kidney Disea se: Estimated GFR < 60 mL/min/1.73z0Kqppyu Kidney Disease: Estimated GFR < 15 mL/min/1.73m2 Glucose 114 60 - 115 mg/dL LABS Calcium 9.0 8.4 - 10.2 mg/dL LABS Bilirubin, Total 0.4 0.0 - 1.0 mg/dL LABS Aspartate Amino Transferase 13 5 - 37 U/L LABS Alanine Aminotransferase 17 0 - 40 U/L LABS Total Protein 6.4(L) 6.5 - 8.0 g/dL LABS Albumin Level 4.0 3.5 - 5.0 g/dL LABS Alkaline Phosphatase 53 39 - 117 U/L LABS 05/20/2024 11:3 5 AM EST 05/20/2024 1:10 PM EST us Yoandy Tillman MD LAB BLOOD ORDERABLES Final Resul t LABS [address] [place] [address] [phone] * (ABNORMAL) POCT Glucose (04/28/2024 9:34 AM EST) Glucose Blood, POC 253(A) 60 - 200 mg/dL QC Media Lot # [id number] Lot# Expiration Date Blood Capillary blood specimen / Unknown 04/28/2024 9:34 AM EST us Yoandy Tillman MD POINT OF CARE TEST ENTER/EDIT OR DERABLES Final Result * Albumin, Random Urine W/Creatinine (04/14/2024 11:04 AM EST) Creatinine, Urine 109.08 mg/dL [facility] Microalbumin Urine 6.0 mg/L [facility] Microalbum Creatinine Ratio Ur 5.5 <30 ug/mg cr LABS Comment:Albumin/Creatinine R atio Reference Ranges: Normal: < 30 ug/mg creatinine Microalbuminuria: 30 - 300 ug/mg creatinineClinical Albuminuria: > 300 ug/mg creatinine Urine (Urine, Random) 04/14/2024 11:04 AM EST 04/14/2024 1:04 PM EST us Yoandy Tillman MD LAB URINE ORDERABLES Final Resul t LABS [address] [place] [phone] * Lipid Panel, Standard (06/27/2022 9:53 AM EDT) Triglycerides 84 mg/dL [facility] LABS Comment:Desirable Triglyceri de: less than 150 mg/dLBorderline High Triglyceride 150-199 mg/dLHigh Triglyceride: 200-499 mg/dLVery High Triglyceride: greater than or equal to 5OO mg/dL Cholesterol 154 mg/dL LABS Comment:Desirable Cholestero l: less than 200 mg/dLBorderline High Cholesterol: 200-239 mg/dLHigh Cholesterol: greater than 239 mg/dL LDL Cholesterol Calculated 104 mg/dl LABS Comment:Desirable LDL: less than 100 mg/dLNear Optimal/Above Optimal LDL: 110- 129 mg/dLBorderline High LDL: 130-159 mg/dLHigh LDL: 160-189 mg/dLVery High LDL: greater than or equal to 190 mg/dL HDL Cholesterol 34 mg/dL [facility] LAB[facility] Comment:Desirable HDL: great er than 40 mg/dL Note: This HDL assay may give artificially low results in patients with liver disease. 06/27/2022 9:53 AM EDT 06/27/2022 9:53 AM EDT [facility] External Provider LAB BLO OD ORDERABLES Final Result LABS [address] [place] [phone] from Last 3 Months or Most Recently Relevant to Health Maintenance Insurance [facility] FULL [place] [phone] [facility] MEDEX CARE [address] [place] [phone] Care Teams Transfer Agent Relationship Specialty Start Date End Date Name, MD Yoandy [address] [place] [phone] PCP - General Internal Medicine 10/19/23 [facility] 01/19/24
--- OUTSIDE RECORDS SUMMARY | 2024-07-22 11:19 | XMS_ITS | Data Portability ---
Author Organization [place] - [facility], Allergy Address 100 [facility] [address] [place] [address] Assessment Encounter Date Assessment Date Assessment LastModified by Organization Details LastModified Time 02/25/2024 02/25/2024 68-year-old male presents today for evaluation of stridor and tracheal stenosis. Symptoms seem to worsen about 3 weeks ago following dilation in November. Of note he had heart transplant about 2 months ago at [facility]. Flexible laryngoscopy did not reveal any [...] heart transplant. Thank you. 2023 Tarsha wagner [facility] Medicine, [address] [place], [address], 4 09:56:34 Procedures None recorded. Surgeries None recorded. Imaging None recorded. Medication Orders None recorded. Patient TargetsNo targets recorded. Patient InstructionsNo instructions recorded. Reason for Referral Field Hand Referral for T gaby stenosis following tracheostomy Established patient of Dr Alegre. Needs follow up appt/repeat endoscopy. Patient has recent heart transplant. Thank you. Referring Physician: Sandip Regalado, Otolaryngology, Encounter Date: 02/25/2024 Problems Name Problem SNOMED Code Status Onset Date Resolution Date Notes Provider Name and Address Organization Details Recorded Time Tracheal stenosis following tracheostomy 84254173 Active 2023 SANDIP REGALADO MD [address] [place] [address],[place] [address], [place], [address], [facility] 4 12:10:02 Sensorineural hearing loss of bilateral ears 244230759 Active 2024 BORA GRAY AUD [address] [place] [address],[place] [address], [place], [address], [facility] 5 16:02:33 Problem Notes None recorded. Procedures Surgical History Date Name Laterality Status Provider Name and Address Organization Details Recorded Time 04/15/19 25 Comp Audio with Tymps (67951 & 17429) completed JACQUE LUGO [address] [place] [address],[place] [address], [place], [address], [facility] 04/15/2024 16:02:37 02/25/20 24 Fiberoptic Laryngoscopy (Comprehensive) completed SANDIP REGALADO MD [address] [place] [address],[address], [address], [facility] 02/25/2024 12:11:38 Imaging Results None recorded. [...] Not Available Not Available Comfort EZ Pen [place] 32 gauge x 5/32 active Not Available [...] Updated DateTime 02/25/2024 172.72 cm 26.8 kg/m2 34682.26 g Manda yL [place] [facility] 02/25/2024 11:47:14 Date Recorded Body height Body mass index (BMI) Body weight Provider Name and Address Organization Details Last Updated DateTime 04/15/2024 172.72 cm 20.2 kg/m2 34081.79 g Manda Ly [facility] 04/15/2024 16:28:34 Social History None recorded. Functional Status None recorded. Mental Status None recorded. Family History Nothing Reported. Medical History Condition Response Diabetes Y Heart Problems Y Hyperlipidemia Y Past Encounters Encounter ID Performer Location Encounter Start Date Encounter Closed Date Diagnosis/Indication Diagnosis SNOMED-CT Code Diagnosis ICD10 Code Diagnosis Note [id number] SANDIP REGALADO MD [facility] [address] [address] 02/25/2024 11:26:24 02/25/2024 12:26:39 Tracheal stenosis following tracheostomy 75983193 J95.03 [id number] SANDIP REGALADO MD [facility] [address] [address] 04/15/2024 15:37:29 04/15/2024 16:57:22 Sensorineural hearing loss of bilateral ears 199244854 H90.3 68 yo M with a history [...] and there was likely some irritation here. [id number] JACQUE LUGO [facility] [address] [address] 04/15/2024 15:59:22 04/18/2024 07:41:17 Sensorineural hearing loss of bilateral ears 919735312 H90.3 Right Ear:Normal hearing through 1.5K Hz [...] Name 02/25/2024 2 [place] [id number] Matthew L Avila [id number] Matthew Donny Avila Avila 02/25/2024 1 [place] Matthew Avila Avila [id number] 44 Matthew Donny Avila Avila 04/15/2024 2 [place] [id number] Matthew L Avila [id number] Matthew Donny Avila Avila 04/15/2024 1 [place]MENT [place] Matthew Avila Avila [id number] Matthew Donny Avila Avila 04/15/2024 2 [place] [id number] Matthew L Avila [id number] Matthew Donny Avila Avila 04/15/2024 1 [place]MENT [place] Matthew Avila Avila [id number] 44 Matthew Donny Avila Avila Notes Date Note Type Note Provider Name and Address Organization Details Recorded Time 02/25/2024 text/html 68 yo M here for tracheal stenosis.Wheezing, had had 5 bronchoscopies. Scarring in the trachea following tracheostomy due to intensive care after heart attack, last year 2022 in [place], was on vacation. Coughing a lot. Had [...] for lung volume SANDIP REGALADO MD [address] [facility],[place] [address], [place], [address], [place] [facility] 02/26/2024 10:58:54 04/15/2024 text/html Starting feeling numb on the side of the ear right after his surgeryTTP over jaw Has seen Dr. Walton. SANDIP REGALADO MD [address] [facility],[place] [address], [place], [address], [place] [facility] 04/18/2024 07:25:33
--- OUTSIDE RECORDS SUMMARY | 2024-07-22 11:19 | XMS_ITS | Encounter Summary ---
Author Organization [employer] Address [address] [place] [address] Care Team Providers Care Welding Robot Operator Name Role Phone Name, Yoandy LUGO Primary Care Provider [phone] Reason for Visit * Reason Onset Date Comments Critical Limb Ischemia 07/18/2024 Encounter Details Date Type Department Care Team ([facility] st Contact Info) Description 07/18/2024 Telephone [facility] [address] [place] [address] Mary Palm RN Critical Limb Ischemia Social History Tobacco Use Types Packs/Day Years [...] with others, in a hotel, in a care home, living outside on the street, on a [...] encounter Miscellaneous Notes * Telephone Encounter - Denisha Polk RN - 07/18/2024 3:07 PM EDT Advised PCP of critical lab ordered by Epifanio Ray MD. T/C to [facility] Card[facility]. Female confirms that their office received critical lab. Copy faxed to [facility]. * Telephone Encounter - Mary Palm RN - 07/18/2024 1:13 PM EDT Critical Lab from [facility] High value CMV DNA, Quantitative, RT-PCR documented in this encounter Plan of Treatment Upcoming Encounters Date Type Department Care Team (Late st Contact Info) Description 07/27/2024 10:45 AM EDT Office Visit [facility] [address] [place] [address] Name, MD Yoandy [address] [place], [place] [phone] documented as of this encounter Visit Diagnoses Not on filedocumented in this encounter Additional Health Concerns Assessment Noted Time PHQ-9 Depression Total Score: 0 10/20/19 24 4:12 PM EDT documented as of this encounter Care Teams Welding Robot Operator Relationship Specialty Start Date End Date Name, MD Yoandy [address] [place] [address] PCP - General Internal Medicine 10/19/23 [facility] 01/19/24 documented as of this encounter
--- OUTSIDE RECORDS SUMMARY | 2024-07-22 11:19 | XMS_ITS | Encounter Summary ---
Author Organization [facility] Address [address] 7t [place] [address] Care Team Providers Care Band Saw Filer Name Role Phone Name, Yoandy LUGO Primary Care Provider [phone] Name, Yoandy LUGO Primary Care Provider [phone] Encounter Details Date Type Department Care Team (Late st Contact Info) Description 03/21/2022 Orders Only [facility] MED[facility] [address] [place] [address] [phone] Coby Flores RN Social History Tobacco Use [...] Description 07/27/2024 10:45 AM EDT Office Visit [facility] [address] [place] [address] [phone] Name, MD Yoandy [address] [place] [phone] documented as of this encounter Procedures Procedure Name Priority Date/Time Associated Diagnosis Comments B TYPE NATRIURETIC PEPTIDE (BNP) Routine 06/27/2022 9:53 AM EDT HEPATIC FUNCTION PANEL Routine 06/27/2022 9:53 AM EDT LIPID PANEL, STANDARD Routine 06/27/2022 9:53 AM EDT BASIC METABOLIC PANEL Routine 06/27/2022 9:53 AM EDT documented in this encounter Results * Lipid Panel, Standard (06/27/2022 9:53 AM EDT) Triglycerides 84 mg/dL [facility] Comment:Desirable Triglyceri de: less than 150 mg/dLBorderline High Triglyceride 150-199 mg/dLHigh Triglyceride: 200-499 mg/dLVery High Triglyceride: greater than or equal to 5OO mg/dL Cholesterol 154 mg/dL [facility] Comment:Desirable Cholestero l: less than 200 mg/dLBorderline High Cholesterol: 200-239 mg/dLHigh Cholesterol: greater than 239 mg/dL LDL Cholesterol Calculated 104 mg/dl [facility] Comment:Desirable LDL: less than 100 mg/dLNear Optimal/Above Optimal LDL: 110- 129 mg/dLBorderline High LDL: 130-159 mg/dLHigh LDL: 160-189 mg/dLVery High LDL: greater than or equal to 190 mg/dL HDL Cholesterol 34 mg/dL [facility] Comment:Desirable HDL: great er than 40 mg/dL Note: This HDL assay may give artificially low results in patients with liver disease. 06/27/2022 9:53 AM EDT 06/27/2022 9:53 AM EDT us [facility] External Provider LAB BLO OD ORDERABLES Final Result [facility] [address] [place] [phone] * (ABNORMAL) Basic Metabolic Panel (06/27/2022 9:53 AM EDT) Sodium 143 135 - 145 mmol/L [facility] Potassium 4.6 3.3 - 5.1 mmol/L [facility] Chloride 108 96 - 108 mmol/L [facility] Carbon Dioxide 26 22 - 29 mmol/L [facility] Anion Gap 14 12 - 20 [facility] Urea Nitrogen (BUN) 13 9 - 16 mg/dL [facility] Creatinine, Serum 1.02 0.5 - 1.4 mg/dL [facility] Estimated Glomerular Filt Rate >60 [facility] Comment:NOTE: For -Am erican individuals, multiply the result by 1.210.Chronic Kidney Disease: Estimated GFR < 60 mL/min/[id number] Kidney Disease: Estimated GFR < 15 mL/min/1.73m2 Glucose 141(H) 60 - 115 mg/dL [facility] Calcium 9.4 8.4 - 10.2 mg/dL [facility] 06/27/2022 9:53 AM EDT 06/27/2022 9:53 AM EDT us [facility] External Provider LAB BLO OD ORDERABLES Final Result [facility] [address] [place] [phone] * Hepatic Function Panel (06/27/2022 9:53 AM EDT) Bilirubin, Total 1.0 0.0 - 1.0 mg/dL [facility] Bilirubin, Direct 0.3 0.0 - 0.5 mg/dL [facility] Aspartate Amino Transferase 19 5 - 37 U/L [facility] Alanine Aminotransferase 24 0 - 40 U/L [facility] Total Protein 6.7 6.5 - 8.0 g/dL [facility] Albumin Level 4.2 3.5 - 5.0 g/dL [facility] Alkaline Phosphatase 61 39 - 117 U/L [facility] 06/27/2022 9:53 AM EDT 06/27/2022 9:53 AM EDT [facility] External Provider LAB BLO OD ORDERABLES Final Result Performing Organization Address [facility] Co de Phone Number [facility] [address] [place] [address] [phone] * (ABNORMAL) B Type Natriuretic Peptide (BNP) (06/27/2022 9:53 AM EDT) B Type Natriuretic Peptide 332(H) <100 pg/mL [facility] Comment:For those patients w ho are being treated with Natrecor(nesiritide, recombinant BNP), BNP testing should beperformed at least two hours post treatment in order toensure that only endogenous levels of BNP are detected. 06/27/2022 9:53 AM EDT 06/27/2022 9:53 AM EDT [facility] External Provider LAB BLO OD ORDERABLES Final Result Performing Organization Address [facility] de Phone Number [facility] [address] [place] [phone] documented in this encounter Visit Diagnoses Not on filedocumented in this encounter Care Teams Band Saw Filer Relationship Specialty Start Date End Date NameYoandy MD [address] [place] [address] PCP - General Family Medicine 01/18/21 06/04/23 Name, MD Yoandy [address] [place] [address] PCP - General Internal Medicine 10/19/23 [facility] 01/19/24 documented as of this encounter
--- OUTSIDE RECORDS SUMMARY | 2024-07-22 11:19 | XMS_ITS | Encounter Summary ---
Author Organization [facility] Address [address] 7t [place] [address] Care Team Providers Care Quenching Machine Operator Name Role Phone Name, Yoandy LUGO Primary Care Provider [phone] Name, Yoandy LUGO Primary Care Provider [phone] Reason for Visit * Reason Onset Date Comments FYI 10/01/2022 Encounter Details Date Type Department Care Team ([facility] st Contact Info) Description 10/01/2022 Telephone [facility] [address] [place], [place] [phone] Name, MD Yoandy [address] [place] [address] FYI Social History Tobacco Use Types Packs/Day [...] - 10/01/2022 3:26 PM EDT Tc from [facility] facility that patient during their vacation in [place] had two Heart Attacks and is currently hospitalized since 09/15/2022 at the [facility] documented in this encounter Plan of Treatment Upcoming Encounters Date Type Department Care Team (Late st Contact Info) Description 07/27/2024 10:45 AM EDT Office Visit [facility] [address] [facility] [place] [address] Name, MD oYandy [address] [facility] [place] [address] documented as of this encounter Visit Diagnoses Not on filedocumented in this encounter Care Teams Quenching Machine Operator Relationship Specialty Start Date End Date Name, MD Yoandy Jensen [facility] [place] [address] PCP - General Family Medicine 01/18/21 06/04/23 Name, [place] [address] PCP - General Internal Medicine 10/19/23 [facility] 01/19/24 documented as of this encounter
[2024-07-22 11:22] LABS: MANUAL DIFF FLAG NO
[2024-07-22 11:28] LABS: Basophils Percent Auto 0.4 % (0-2); Eosinophils Absolute Auto 0.1 X10*3/uL (0.0-0.4); Eosinophils Percent Auto 1.9 % (0-4); Hematocrit 30.7 % (42.0-52.0); Hemoglobin 10.1 g/dl (14.0-18.0); Imm Gran Abs Auto 0.02 X10*3/uL (0.00-0.03); Imm Gran Pct Auto 0.8 % (0.0-0.4); Lymphocytes Absolute Auto 0.5 X10*3/uL (1.2-4.9); Lymphocytes Percent Auto 18.7 % (20-40); Mean Corpuscular HGB Conc 32.9 g/dl (31.0-36.0); Mean Corpuscular Hemoglobin 28.4 pg (27.0-33.0); Mean Corpuscular Volume 86.2 fL (80.0-98.0); Mean Platelet Volume 9.8 fL (9.4-12.4); Monocytes Absolute Auto 0.2 X10*3/uL (0.1-1.2); Monocytes Percent Auto 6.5 % (2-11); Neutrophils Absolute Auto 1.9 x10*3/uL (2.0-8.3); Neutrophils Percent Auto 71.7 % (45-73); Platelet Count 135 X10*3/uL (160-400); Red Blood Count 3.56 X10*6/uL (4.60-5.80); Red Cell Distribution Width 14.1 % (11.0-16.0); White Blood Count 2.6 X10*3/uL (4.8-10.8)
[2024-07-22 12:03] LABS: Alanine Aminotransferase 13 U/L (0-40); Anion Gap 10 (12-20); Aspartate Amino Transferase 22 U/L (5-37); Bilirubin Total 0.4 mg/dL (0.0-1.0); Blood Urea Nitrogen 17 mg/dL (9-16); Calcium 9.2 mg/dL (8.4-10.2); Carbon Dioxide 26 mmol/L (22-29); Chloride 110 mmol/L (96-108); Estimated Glomerular Filt Rate > 60; Glucose Random 95 mg/dL (60-115); Potassium 4.6 mmol/L (3.3-5.1); Sodium 141 mmol/L (135-145); Total Protein 6.3 g/dL (6.5-8.0)
[2024-07-22 19:47] LABS: Alkaline Phosphatase 56 U/L (39-117)
[2024-07-23 14:43] LABS: Tacrolimus Prograf 9.6 mcg/L
[2024-08-03 10:40] LABS: CMV DNA Qn PCR 3.21 (H); CMV DNA Qn Real Time PCR 1610.0 (H)
[2024-08-03 10:41] LABS: CMV DNA PCR Qn Source PLASMA
== END 2024-07-22 10:23 | disposition home or self-care (01) ==
LOC: HO.HHCL 10:22
PROVIDERS: Visit Provider Internal Medicine Infectious Disease
DX: T86.23 Heart transplant infection (principal)
CPT/HCPCS: 36415; 80053; 80197; 85025; 87497

== ENCOUNTER 2024-08-10 11:43 | Outpatient (REF) | payer MEDICARE, SELFPAY ==
--- OUTSIDE RECORDS SUMMARY | 2024-08-10 13:08 | XMS_ITS | Data Portability ---
Author Organization [place] [facility] Address [address] [facility] [address] [place] [address] Assessment Encounter Date Assessment Date Assessment LastModified by Organization Details LastModified Time 02/25/2024 02/25/2024 68-year-old male presents today for evaluation of stridor and tracheal stenosis. Symptoms seem to worsen about 3 weeks ago following dilation in November. Of note he had heart transplant about 2 months ago at [facility]. Flexible laryngoscopy did not reveal any [...] heart transplant. Thank you. 2023 Tarsha wagner [facility], [address] [place], [address], 4 09:56:34 Procedures None recorded. Surgeries None recorded. Imaging None recorded. Medication Orders None recorded. Patient TargetsNo targets recorded. Patient InstructionsNo instructions recorded. Reason for Referral Library Historian Referral for T gaby stenosis following tracheostomy Established patient of Dr Alegre. Needs follow up appt/repeat endoscopy. Patient has recent heart transplant. Thank you. Referring Physician: Sandip Regalado, Otolaryngology, Encounter Date: 02/25/2024 Problems Name Problem SNOMED Code Status Onset Date Resolution Date Notes Provider Name and Address Organization Details Recorded Time Tracheal stenosis following tracheostomy 63228771 Active 2023 SANDIP REGALADO MD [address] [place] [address],[place] [address], [place], [phone], [facility] 4 12:10:02 Sensorineural hearing loss of bilateral ears 217476267 Active 2024 BORA GRAY, AUD [address] [place] [address],[place] [address], [place], [phone], [facility] 5 16:02:33 Problem Notes None recorded. Procedures Surgical History Date Name Laterality Status Provider Name and Address Organization Details Recorded Time 04/15/19 25 Comp Audio with Tymps - 63366 & 76984 completed BORA GRAY AUD [address] [place] [address],[place] [address], [place], [phone], [facility] 04/15/2024 16:02:37 02/25/20 24 Fiberoptic Laryngoscopy (Comprehensive) completed SANDIP REGALADO MD [address] [place] [address],[address], [phone], [facility] 02/25/2024 12:11:38 Imaging Results None recorded. Procedure [...] Not Available Not Available Comfort EZ Pen [place] 32 gauge x /32 active Not Available Not Available Not Available [...] Updated DateTime 02/25/2024 172.72 cm 26.8 kg/m2 63723.26 g Manda Ly [place] [facility] 02/25/2024 11:47:14 Date Recorded Body height Body mass index (BMI) Body weight Provider Name and Address Organization Details Last Updated DateTime 04/15/2024 172.72 cm 20.2 kg/m2 14166.79 g Manda Ly [facility] 04/15/2024 16:28:34 Social History None recorded. Functional Status None recorded. Mental Status None recorded. Family History Nothing Reported. Medical History Condition Response Diabetes Y Heart Problems Y Hyperlipidemia Y Past Encounters Encounter ID Performer Location Encounter Start Date Encounter Closed Date Diagnosis/Indication Diagnosis SNOMED-CT Code Diagnosis ICD10 Code Diagnosis Note [id number] SANDIP REGALADO MD [facility] [address] [address] 02/25/2024 11:26:24 02/25/2024 12:26:39 Tracheal stenosis following tracheostomy 07453568 J95.03 [id number] SANDIP REGALADO MD [facility] [address] [address] 04/15/2024 15:37:29 04/15/2024 16:57:22 Sensorineural hearing loss of bilateral ears 501148741 H90.3 68 yo M with a history [...] and there was likely some irritation here. [id number] JACQUE LUGO [facility] [address] [address] 04/15/2024 15:59:22 04/18/2024 07:41:17 Sensorineural hearing loss of bilateral ears 687300040 H90.3 Right Ear:Normal hearing through 1.5K Hz [...] Recorded Advance Directives Directive None Recorded Payers Insurance Date Sequence Insurance Name Policy Number Policy Lee Covered Member ID Lee Member ID Guarantor Name 06/15/2024 2 [place] [id number] Matthew L Avila [id number] Matthew Donny Avila Avila 06/15/2024 1 [place] [employer] Matthew Avila Avila [id number] Matthew Donny Avila Avila 06/15/2024 2 [place] [facility] Matthew L Avila Avlia [id number] Matthew Donny Avila Avila Notes Date Note Type Note Provider Name and Address Organization Details Recorded Time 02/25/2024 text/html 68 yo M here for tracheal stenosis.Wheezing, had had 5 bronchoscopies. Scarring in the trachea following tracheostomy due to intensive care after heart attack, last year 2022 in [place], was on vacation. Coughing a lot. Had [...] corrected for lung volume SANDIP REGALADO MD [address] [place] [address],[address], [phone], [place] [facility] 02/26/2024 10:58:54 04/15/2024 text/html Starting feeling numb on the side of the ear right after his surgeryTTP over jaw Has seen Dr. Walton. SANDIP REGALADO MD [address] [place] [address],[address], [phone], [place] [facility] 04/18/2024 07:25:33
--- OUTSIDE RECORDS SUMMARY | 2024-08-10 13:08 | XMS_ITS | Encounter Summary ---
Author Organization [employer] Address [address] [place] [address] Care Team Providers Care Aircraft Electrician Name Role Phone Name, Yoandy LUGO Primary Care Provider [phone] Name, Yoandy LUGO Primary Care Provider [phone] Encounter Details Date Type Department Care Team (Late st Contact Info) Description 03/21/2022 Orders Only [facility] [address] [place] [address] Coby Flores RN Social History Tobacco Use [...] as of this encounter Plan of Treatment Not on file documented as of this encounter Procedures Procedure Name Priority Date/Time Associated Diagnosis Comments B TYPE NATRIURETIC PEPTIDE (BNP) Routine 06/27/2022 9:53 AM EDT HEPATIC FUNCTION PANEL Routine 06/27/2022 9:53 AM EDT LIPID PANEL, STANDARD Routine 06/27/2022 9:53 AM EDT BASIC METABOLIC PANEL Routine 06/27/2022 9:53 AM EDT documented in this encounter Results * Lipid Panel, Standard (06/27/2022 9:53 AM EDT) Triglycerides 84 mg/dL [facility] Comment:Desirable Triglyceri de: less than 150 mg/dLBorderline High Triglyceride 150-199 mg/dLHigh Triglyceride: 200-499 mg/dLVery High Triglyceride: greater than or equal to 5OO mg/dL Cholesterol 154 mg/dL [facility] Comment:Desirable Cholestero l: less than 200 mg/dLBorderline High Cholesterol: 200-239 mg/dLHigh Cholesterol: greater than 239 mg/dL LDL Cholesterol Calculated 104 mg/dl [facility] Comment:Desirable LDL: less than 100 mg/dLNear Optimal/Above Optimal LDL: 110- 129 mg/dLBorderline High LDL: 130-159 mg/dLHigh LDL: 160-189 mg/dLVery High LDL: greater than or equal to 190 mg/dL HDL Cholesterol 34 mg/dL [facility] Comment:Desirable HDL: great er than 40 mg/dL Note: This HDL assay may give artificially low results in patients with liver disease. 06/27/2022 9:53 AM EDT 06/27/2022 9:53 AM EDT us [facility] External Provider LAB BLO OD ORDERABLES Final Result [facility] [address] [place] [phone] * (ABNORMAL) Basic Metabolic Panel (06/27/2022 9:53 AM EDT) Sodium 143 135 - 145 mmol/L [facility] Potassium 4.6 3.3 - 5.1 mmol/L [facility] Chloride 108 96 - 108 mmol/L [facility] Carbon Dioxide 26 22 - 29 mmol/L [facility] Anion Gap 14 12 - 20 [facility] Urea Nitrogen (BUN) 13 9 - 16 mg/dL [facility] Creatinine, Serum 1.02 0.5 - 1.4 mg/dL [facility] Estimated Glomerular Filt Rate >60 [facility] Comment:NOTE: For -Am erican individuals, multiply the result by 1.210.Chronic Kidney Disease: Estimated GFR < 60 mL/min/1.55z3Jkxlzs Kidney Disease: Estimated GFR < 15 mL/min/1.73m2 Glucose 141(H) 60 - 115 mg/dL [facility] Calcium 9.4 8.4 - 10.2 mg/dL [facility] 06/27/2022 9:53 AM EDT 06/27/2022 9:53 AM EDT [facility] External Provider LAB BLO OD ORDERABLES Final Result Performing Organization Address [facility] Co de Phone Number [facility] [address] [place] [phone] * Hepatic Function Panel (06/27/2022 9:53 AM EDT) Bilirubin, Total 1.0 0.0 - 1.0 mg/dL [facility] Bilirubin, Direct 0.3 0.0 - 0.5 mg/dL [facility] Aspartate Amino Transferase 19 5 - 37 U/L [facility] Alanine Aminotransferase 24 0 - 40 U/L [facility] Total Protein 6.7 6.5 - 8.0 g/dL [facility] Albumin Level 4.2 3.5 - 5.0 g/dL [facility] Alkaline Phosphatase 61 39 - 117 U/L [facility] 06/27/2022 9:53 AM EDT 06/27/2022 9:53 AM EDT [facility] External Provider LAB BLO OD ORDERABLES Final Result Performing Organization Address [facility] Co de Phone Number [facility] [address] [place] [phone] * (ABNORMAL) B Type Natriuretic Peptide (BNP) (06/27/2022 9:53 AM EDT) B Type Natriuretic Peptide 332(H) <100 pg/mL [facility] Comment:For those patients w ho are being treated with Natrecor(nesiritide, recombinant BNP), BNP testing should beperformed at least two hours post treatment in order toensure that only endogenous levels of BNP are detected. 06/27/2022 9:53 AM EDT 06/27/2022 9:53 AM EDT us [facility] External Provider LAB BLO OD ORDERABLES Final Result [facility] [address] [place] [phone] documented in this encounter Visit Diagnoses Not on filedocumented in this encounter Care Teams Aircraft Electrician Relationship Specialty Start Date End Date Yoandy Tillman MD [address] [place] [address] PCP - General Family Medicine 01/18/21 06/04/23 Yoandy Tillman MD [address] [place] [address] PCP - General Internal Medicine 10/19/23 [facility] 01/19/24 documented as of this encounter
--- OUTSIDE RECORDS SUMMARY | 2024-08-10 13:08 | XMS_ITS | Clinical Summary ---
Author Organization [employer] Address [address] [facility] [address] [place] [address] Care Team Providers Care Roller Inspector Name Role Phone Name, Yoandy LUGO Primary Care Provider [phone] Allergies Active Allergy Reactions Criticality Noted Date [...] 1,000 mg by mouth 2 times daily. 01/12/20 24 10/08/2 025 Active pravastatin (Pravachol) 40 MG tablet Take 40 mg by mouth at bedtime. 01/12/20 Active pantoprazole (ProtoNix) 40 MG EC tablet Take 40 mg by mouth before breakfast. 01/13/20 Active sennosides (Senokot) 8.6 MG tablet Take 8.6 mg by mouth if needed in the morning and at bedtime. 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 01/14/20 tacrolimus (Prograf) 5 MG capsule Take 5 mg by mouth 2 times daily. 01/14/20 Active Problems Problem Noted Date Diagnosed Date Pulmonary nodules 07/27/2024 Cytomegalovirus infection 06/30/2024 Chronic cough 06/28/2024 Fever 06/28/2024 Conjunctivitis of right eye 05/04/2024 Immunosuppressed status 05/04/2024 Night sweats 05/04/2024 Preventative health care 05/04/2024 Disease due to severe acute respiratory syndrome coronavirus 2 (SARS-CoV-2) 04/19/2024 Overview (07/27/2024): Problem added by Discern Expert Sensorineural hearing loss (SNHL) of both ears 0 04/15/2024 Observed seizure-like activity 02/09/2024 Heart transplant recipient 02/05/2024 Overview (02/05/2024): #s/p OHT 12/28/23 #s/p impella explant #s/p ICD explant #hx NICM Seizure disorder 02/05/2024 Immunocompromised 02/05/2024 Sarcoidosis 01/27/2024 Alteration in self-care ability 01/05/2024 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 S/p multiple dilations in the past. Able to pass a 7.0 ETT, but no larger. Decreased functional mobility and endurance 11/06 Non-restorable tooth 11/19/2023 History of GA (myocardial infarction) 10/20/2023 Memory problem 10/20/2023 Shortness [...] 's report Asked patient to call his Vice President Of Development regarding his increased weight/swelling for further recommendations. Dysphagia 02/08/2023 Positive colorectal cancer screening using Colog uard test 02/04/2023 Overview (11/03/2023): Negative Colonoscopy 06/2023: urgical Pathology Exam - Order: [id number] Component 4 mo ago Case Report Surgicals Case: [id number] Authorizing Provider: Donny Encarnacion Collected: 2023 0843 MD Eugene Ordering Location: [facility] Received: 2023 1011 Pathologist: [...] tissue is entirely submitted in cassette B1. [facility] Microscopic Description A-B Sections show fragments colonic mucosa with an adenomatous change of the epithelium, forming tubular architecture. No high-grade dysplasia or malignancy is identified. Disclaimer Unless otherwise specified, formalin-fixed paraffin-embedded sections and all routine, IHC, or [place] [address]. 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 Coronary artery disease invo [place]ving [place] coronary artery of [place] heart without angina pectoris 11/14/2022 Overview (11/02/2023): Last Assessment & Plan: - nonobstructive disease - continue medical therapy with aspirin, statin, BB - denies angina Stridor 11/13/2022 Overview (11/02/2023): Last Assessment & Plan: Improved after last dilation in April 2023. Mild stridor noted today in clinic Discussed with his primary discharging machine operator Dr. Sanches and will work to get [...] anxiety 04/06/2022 Ventricular tachycardia, unspecified 04/06/2022 Other retirement (current) drug therapy 3 Type 2 diabetes [...] upgraded from dual-chamber to biventricular device [place] [facility] [place]. [place] [facility] [place] Systolic dysfunction 03/13/2022 History of bradycardia 03/13/2022 Family history of prostate cancer 03/13/2022 Complete heart block 04/06/2020 Overview (11/02/2023): Added automatically from request for surgery [id number] Last Assessment & Plan: History of biventricular pacemaker that was upgraded to NETWORK ANALYST defibrillator in September. Device interrogated today [...] starting statin -No need for ischemic evaluation rodent exterminator (current) use of o ral hypoglycemic drugs 04/06/2022 11/03/2023 Other specified diseases of upper respiratory tract 04/06/2022 11/03/2023 Presence of automatic (impla ntable) cardiac defibrillator 04/06/2022 02/05/2024 Cardiac pacemaker in situ 03/13/2022 Uncontrolled type 2 diabetes mellitus with hyperglycemia 04/06/2020 02/05/2024 Overview (11/02/2023): Last Assessment & Plan: Encounters Date Type Department Care Team Description 07/27/2024 10:45 AM EDT Office Visit [facility] [address] [place] [address] Yoandy Tillman MD Type 2 diabetes mellitus with other circulatory complication, without long-term current use of insulin ([facility]) (Primary Dx); Heart transplant recipient ([facility]) 07/27/2024 Travel 07/26/2024 Telephone [facility] [address] [place] [address] Yoandy Tillman MD CHART PREP 07/18/2024 Telephone [facility] [address] [place] [address] Mary Palm RN Critical Limb Ischemia 07/07/2024 9:00 AM EDT Office Visit [facility] OPTOMETRY [address] [place] [address] Lena Keene, OD 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, unspecified whether intermodal truck driver insulin use ([facility]) (Primary Dx); Presence of intraocular lens 07/07/2024 Travel 06/23/2024 Telephone [facility] [address] [place], [place] [phone] Name, MD Yoandy from Last 3 Months Immunizations Name Administration Dates Next Due Hep B, adult 11/26/2023 Influenza High-dose Quadriva lent Preservative Free 01/12/2023 Influenza, trivalent, adjuvanted 12/16/2023 Pfizer Covid-19 Vaccine 12+ 02/05/2024,,12/14/2020 Pfizer Covid-19 Vaccine 12+ Bivalent 02/25/2022 Pneumococcal Conjugate PCV 13 05/30/2021 Pneumococcal Conjugate PCV 20 01/12/2023 SARS-CoV-2, Unspecified 02/25/2022 Tdap 05/30/2021 Zoster, Recombinant 11/26/2023 Social History Tobacco Use Types Packs/Day Years [...] Sign Reading Time Taken Comments Blood Pressure 145/88 07/27/2024 10:57 AM EDT Pulse 110 07/27/2024 10:57 AM EDT Temperature 36.8 ??C (98.2 ??F) 07/27/2024 10:57 AM E DT Respiratory Rate 14 07/27/2024 10:57 AM EDT Oxygen Saturation 99% 07/27/2024 10:57 AM EDT Inhaled Oxygen Concentration - - Weight 63 kg (138 lb 12.8 oz) 07/27/2024 10:57 A M EDT Height 172.7 cm (5' 8 ) 07/27/2024 10:57 AM EDT Body Mass Index 21.1 07/27/2024 10:57 AM EDT Plan of Treatment Health Maintenance Due Date Last Done Comments CT Colonography 1955 Colonoscopy 1955 FIT 1955 FOBT 1955 Sigmoidoscopy 1955 Hepatitis B Vaccines (2 of 3 - 19+ 3-dose series) 12/24/2023 11/26/2023 Zoster Vaccines (2 of 2) 01/21/2024 11/26/2023 COVID-19 Vaccine ( season) 2024 02/05/2024, 02/25/2022, 02/25/2022, Additional history exists Alcohol/Substance Use Screening 10/19/2024 10/20/2023 Depression Screening 10/19/2024 10/20/2023, 10/20/19 SDOH Screening 10/19/2024 10/20/2023 Lipid Panel 01/25/2025 01/26/2024, 06/05, 06/23/2022, Additional history exists Diabetes: Hemoglobin A1C 01/26/2025 025, 05/26/2024, 02/05/2024, Additional history exists RSV Patients and Patients Aged 60 years or older (1 - Risk 60-74 years 1-dose series) 01/28/2025 Postponed from 2015 (Other System Reasons) Diabetes: Foot Exam 02/04/2025 02/05/2024, Diabetes: Urine Protein Screening 04/14/2025 04/14/2024, 06/23/2022, 05/29/2021 Eye Exam 07/07/2025 07/07/2024, 04/0 06/2024, 07/07/2024, Additional history exists Tobacco Screening 07/27/2025 07/27/2024 Colorectal Cancer Screening 01/21/2026 FIT DNA/Cologuard 01/21/2026 [...] Name Priority Date/Time Associated Diagnosis Comments POCT GLYCATED HEMOGLOBIN, TOTAL Routine 07/27/2024 10:59 AM EDT Type 2 diabetes mellitus with other circulatory complication, without long-term current use of insulin ([facility]) POCT GLUCOSE Routine 07/27/2024 10:58 AM EDT Type 2 diabetes mellitus with other circulatory complication, without long-term current use of insulin ([facility]) HEMOGLOBIN A1C Routine 05/26/2024 12:08 PM EST GLUCOSE, WHOLE BLOOD Routine 05/26/2024 11:06 AM EST COMPREHENSIVE METABOLIC PANEL Routine 05/20/2024 11:35 AM EST ALBUMIN, RANDOM URINE W/CREATININE Routine 04/14/2024 11:04 AM EST Type 2 diabetes mellitus with other circulatory complication, without long-term current use of insulin ([facility]) LIPID PANEL, STANDARD Routine 06/27/2022 9:53 AM EDT from Last 3 Months or Most Recently Relevant to Health Maintenance Results * POCT HGB A1C (07/27/2024 10:59 AM EDT) Hemoglobin A1C 5.7 4.0 - 6.0 % QC Media Lot # [id number] Lot# Expiration Date [id number] Blood 07/27/2024 10:5 9 AM EDT us Yoandy Tillman MD POINT OF CARE TEST ENTER/EDIT OR DERABLES Final Result * POCT Glucose (07/27/2024 10:58 AM EDT) Glucose Blood, POC 171 60 - 200 mg/dL QC Media Lot # [id number] Lot# Expiration Date [id number] Blood Capillary blood specimen / Unknown 07/27/2024 10:58 AM EDT us Yoandy Tillman MD POINT OF CARE TEST ENTER/EDIT OR DERABLES Final Result * (ABNORMAL) Hemoglobin A1c (05/26/2024 12:08 PM EST) Hemoglobin A1c 7.4(H) <6.0 % [facility] Comment:Hemoglobin A1C Refer ence Range Adults: 4.8 - 6.0 % Non diabetic: < 6.0 % Goal: < 7.0 %Additional Action Suggested: > 8.0 %Note: Hemoglobin A1c results are invalid for patients with abnormal amounts of HbF. Blood transfusions may impact the HbA1c concentration in the patient sample. Estimated Average Glucose 166 mg/dL [facility] Comment:eAG = Estimated ave rage glucose which is %A1C expressed asaverage glucose, using the formula of the Y4P-KdayhasJiswuoa Glucose study (ADAG), Diabetes Care, Vol.31,#8,2007 05/26/2024 12:0 8 PM EST 05/26/2024 12:08 PM EST Generic External Data Provider LAB BLOOD ORDERAB LES Final Result Performing Organization Address [facility]/ZIP Co de Phone Number [facility] [address] [place] [phone] * (ABNORMAL) Glucose, Whole Blood (05/26/2024 11:06 AM EST) Glucose, Whole Blood 138(H) 60 - 115 mg/dL [facility] Comment:METER #: [id number] Testing performed in the Endocrinology Department [address] , [address], [facility]. 05/26/2024 11:0 6 AM EST 05/26/2024 11:13 AM EST us Generic External Data Provider LAB BLOOD ORDERAB LES Final Result Performing Organization Address City/[facility]/ZIP Co de Phone Number [facility] [address] [place] [phone] * (ABNORMAL) Comprehensive Metabolic Panel (05/20/2024 11:35 AM EST) Sodium 140 135 - 145 mmol/L [facility] Potassium 3.6 3.3 - 5.1 mmol/L [facility] Chloride 108 96 - 108 mmol/L [facility] Carbon Dioxide 25 22 - 29 mmol/L [facility] Anion Gap 11(L) 12 - 20 [facility] Urea Nitrogen (BUN) 10 9 - 16 mg/dL [facility] Creatinine, Serum 0.93 0.5 - 1.4 mg/dL [facility] Estimated Glomerular Filt Rate >60 [facility] Comment:Chronic Kidney Disea se: Estimated GFR < 60 mL/min/[id number] Kidney Disease: Estimated GFR < 15 mL/min/1.73m2 Glucose 114 60 - 115 mg/dL [facility] Calcium 9.0 8.4 - 10.2 mg/dL [facility] Bilirubin, Total 0.4 0.0 - 1.0 mg/dL [facility] Aspartate Amino Transferase 13 5 - 37 U/L [facility] Alanine Aminotransferase 17 0 - 40 U/L [facility] Total Protein 6.4(L) 6.5 - 8.0 g/dL [facility] Albumin Level 4.0 3.5 - 5.0 g/dL [facility] Alkaline Phosphatase 53 39 - 117 U/L [facility] 05/20/2024 11:3 5 AM EST 05/20/2024 1:10 PM EST us Yoandy Name LAB BLOOD ORDERABLES Final Resul t [facility] [address] [place] [phone] * Albumin, Random Urine W/Creatinine (04/14/2024 11:04 AM EST) Creatinine, Urine 109.08 mg/dL [facility] Microalbumin Urine 6.0 mg/L [facility] Microalbum Creatinine Ratio Ur 5.5 <30 ug/mg cr [facility] Comment:Albumin/Creatinine R atio Reference Ranges: Normal: < 30 ug/mg creatinine Microalbuminuria: 30 - 300 ug/mg creatinineClinical Albuminuria: > 300 ug/mg creatinine Urine (Urine, Random) 04/14/2024 11:04 AM EST 04/14/2024 1:04 PM EST Yoandy Tillman MD LAB URINE ORDERABLES Final Resul t Performing Organization Address [facility] de Phone Number [facility] [address] [place] [phone] * Lipid Panel, Standard (06/27/2022 9:53 AM EDT) Triglycerides 84 mg/dL [facility] Comment:Desirable Triglyceri de: less than 150 mg/dLBorderline High Triglyceride 150-199 mg/dLHigh Triglyceride: 200-499 mg/dLVery High Triglyceride: greater than or equal to 5OO mg/dL Cholesterol 154 mg/dL [facility] Comment:Desirable Cholestero l: less than 200 mg/dLBorderline High Cholesterol: 200-239 mg/dLHigh Cholesterol: greater than 239 mg/dL LDL Cholesterol Calculated 104 mg/dl [facility] Comment:Desirable LDL: less than 100 mg/dLNear Optimal/Above Optimal LDL: 110- 129 mg/dLBorderline High LDL: 130-159 mg/dLHigh LDL: 160-189 mg/dLVery High LDL: greater than or equal to 190 mg/dL HDL Cholesterol 34 mg/dL [facility] Comment:Desirable HDL: great er than 40 mg/dL Note: This HDL assay may give artificially low results in patients with liver disease. 06/27/2022 9:53 AM EDT 06/27/2022 9:53 AM EDT [facility] External Provider LAB BLO OD ORDERABLES Final Result Performing Organization Address [facility] Co de Phone Number [facility] [address] [place] [phone] from Last 3 Months or Most Recently Relevant to Health Maintenance Insurance [facility] MEDEX CARE [facility] STANDARD Care Teams Roller Inspector Relationship Specialty Start Date End Date Name, MD Yoandy [address] [place] [address] PCP - General Internal Medicine 10/19/23 [facility] 01/19/24
--- OUTSIDE RECORDS SUMMARY | 2024-08-10 13:08 | XMS_ITS | Encounter Summary ---
Author Organization [employer] Address [address] [place] [address] Care Team Providers Care Finance Advisor Name Role Phone Name, Yoandy LUGO Primary Care Provider [phone] Name, Yoandy LUGO Primary Care Provider [phone] Reason for Visit * Reason Onset Date Comments FYI 10/01/2022 Encounter Details Date Type Department Care Team ([facility] st Contact Info) Description 10/01/2022 Telephone [facility] [address] [place], [place] [phone] Name, MD Yoandy [address] [place] [address] FYI Social History Tobacco Use Types Packs/Day [...] 10/01/2022 3:26 PM EDT Tc from [facility] facility that patient during their vacation in [place] had two Heart Attacks and is currently hospitalized since 09/15/2022 at the [facility] documented in this encounter Plan of Treatment Not on file documented as of this encounter Visit Diagnoses Not on filedocumented in this encounter Care Teams Finance Advisor Relationship Specialty Start Date End Date NameYoandy MD [address] [place] [address] PCP - General Family Medicine 01/18/21 06/04/23 Name, MD Yoandy [address] [place] [address] PCP - General Internal Medicine 10/19/23 [facility] 01/19/24 documented as of this encounter
[2024-08-10 13:29] LABS: MANUAL DIFF FLAG NO
[2024-08-10 13:53] LABS: Basophils Percent Auto 0.3 % (0-2); Eosinophils Percent Auto 0.9 % (0-4); Hemoglobin 11.3 g/dl (14.0-18.0); Imm Gran Abs Auto 0.05 X10*3/uL (0.00-0.03); Imm Gran Pct Auto 1.6 % (0.0-0.4); Lymphocytes Absolute Auto 0.4 X10*3/uL (1.2-4.9); Lymphocytes Percent Auto 13.5 % (20-40); Mean Corpuscular HGB Conc 34.2 g/dl (31.0-36.0); Mean Corpuscular Hemoglobin 29.2 pg (27.0-33.0); Mean Corpuscular Volume 85.3 fL (80.0-98.0); Mean Platelet Volume 10.4 fL (9.4-12.4); Monocytes Absolute Auto 0.3 X10*3/uL (0.1-1.2); Monocytes Percent Auto 9.1 % (2-11); Neutrophils Absolute Auto 2.4 x10*3/uL (2.0-8.3); Neutrophils Percent Auto 74.6 % (45-73); Platelet Count 161 X10*3/uL (160-400); Red Blood Count 3.87 X10*6/uL (4.60-5.80); Red Cell Distribution Width 14.1 % (11.0-16.0); White Blood Count 3.2 X10*3/uL (4.8-10.8)
[2024-08-10 14:18] LABS: Alanine Aminotransferase 16 U/L (0-40); Albumin Level 4.3 g/dL (3.5-5.0); Alkaline Phosphatase 50 U/L (39-117); Anion Gap 10 (12-20); Aspartate Amino Transferase 13 U/L (5-37); Bilirubin Total 0.4 mg/dL (0.0-1.0); Blood Urea Nitrogen 13 mg/dL (9-16); Calcium 9.4 mg/dL (8.4-10.2); Carbon Dioxide 28 mmol/L (22-29); Chloride 109 mmol/L (96-108); Estimated Glomerular Filt Rate > 60; Glucose Random 105 mg/dL (60-115); Potassium 4.5 mmol/L (3.3-5.1); Sodium 142 mmol/L (135-145); Total Protein 6.6 g/dL (6.5-8.0)
[2024-08-19 10:16] LABS: CMV DNA PCR Qn Source BLOOD
[2024-08-19 10:18] LABS: CMV DNA Qn Real Time PCR <34.5 DETECTED
[2024-08-19 10:19] LABS: CMV DNA Qn PCR <1.54 DETECTED
== END 2024-08-10 11:44 | disposition home or self-care (01) ==
LOC: HO.HHCL 11:43
PROVIDERS: Visit Provider Internal Medicine Infectious Disease
DX: T86.23 Heart transplant infection (principal)
CPT/HCPCS: 36415; 80053; 80197; 85025; 87497

== ENCOUNTER 2024-08-16 10:42 | Outpatient (REF) | payer MEDICARE, SELFPAY ==
[2024-08-16 11:22] LABS: MANUAL DIFF FLAG NO
[2024-08-16 11:37] LABS: Basophils Percent Auto 0.3 % (0-2); Eosinophils Absolute Auto 0.1 X10*3/uL (0.0-0.4); Eosinophils Percent Auto 1.8 % (0-4); Hemoglobin 11.9 g/dl (14.0-18.0); Imm Gran Abs Auto 0.03 X10*3/uL (0.00-0.03); Imm Gran Pct Auto 0.9 % (0.0-0.4); Lymphocytes Absolute Auto 0.7 X10*3/uL (1.2-4.9); Lymphocytes Percent Auto 21.8 % (20-40); Mean Corpuscular Hemoglobin 29.3 pg (27.0-33.0); Mean Corpuscular Volume 86.2 fL (80.0-98.0); Mean Platelet Volume 10.4 fL (9.4-12.4); Monocytes Absolute Auto 0.3 X10*3/uL (0.1-1.2); Monocytes Percent Auto 9.5 % (2-11); Neutrophils Absolute Auto 2.1 x10*3/uL (2.0-8.3); Neutrophils Percent Auto 65.7 % (45-73); Platelet Count 145 X10*3/uL (160-400); Red Blood Count 4.06 X10*6/uL (4.60-5.80); Red Cell Distribution Width 13.7 % (11.0-16.0); White Blood Count 3.3 X10*3/uL (4.8-10.8)
--- OUTSIDE RECORDS SUMMARY | 2024-08-16 11:58 | XMS_ITS | Encounter Summary ---
Author Organization [employer] Address [address] [place] [address] Care Team Providers Care Policy Writer Typist Name Role Phone Name, Yoandy LUGO Primary Care Provider [phone] Name, Yoandy LUGO Primary Care Provider [phone] Reason for Visit * Reason Onset Date Comments FYI 10/01/2022 Encounter Details Date Type Department Care Team ([facility] st Contact Info) Description 10/01/2022 Telephone [facility] [address] [place], [place] [phone] Name, MD Yoandy [address] [place] [address] FYI Social History Tobacco Use Types Packs/Day [...] - 10/01/2022 3:26 PM EDT Tc from [facility] facility that patient during their vacation in [place] had two Heart Attacks and is currently hospitalized since 09/15/2022 at the [facility] documented in this encounter Plan of Treatment Not on file documented as of this encounter Visit Diagnoses Not on filedocumented in this encounter Care Teams Policy Writer Typist Relationship Specialty Start Date End Date NameYoandy MD [address] [place] [address] PCP - General Family Medicine 01/18/21 06/04/23 Name, MD Yoandy [address] [place] [address] PCP - General Internal Medicine 10/19/23 [facility] 01/19/24 documented as of this encounter
--- OUTSIDE RECORDS SUMMARY | 2024-08-16 11:58 | XMS_ITS | Clinical Summary ---
Author Organization [employer] Address [address] [place] [address] Care Team Providers Care Metal Bonding Worker Name Role Phone Name, Yoandy LUGO Primary Care Provider [phone] Allergies Active Allergy Reactions Criticality Noted Date [...] 1,000 mg by mouth 2 times daily. 4 10/08/2 025 Active pravastatin (Pravachol) 40 MG tablet Take 40 mg by mouth at bedtime. 4 Active pantoprazole (ProtoNix) 40 MG EC tablet Take 40 mg by mouth before breakfast. 4 Active sennosides (Senokot) 8.6 MG tablet Take 8.6 mg by mouth if needed in the morning and at bedtime. 4 Active Sharps Container (BD Sharps Ob/Gyn Nurse) [facility] For disposal of needles and lancets Active sodium zirconium cyclosilicate (Lokelma) 10 g packet Take 10 g by mouth if needed each day. Active sulfamethoxazole- trimethoprim (Bactrim DS) 800-160 MG tablet Take 1 tablet by mouth Once per day. Active sodium chloride 0.9 % nebulizer solution USE 3ML VIAL IN NEBULIZER TWICE DAILY FOR 14 DAYS. MIX WITH 10 DROPS OF CIPRODEX SOLUTION. 4 Active HumaLOG KWIKPEN 100 UNIT/ML injection 12 units prior to meals Active calcium carbonate (Tums) 500 MG chewable tablet Chew 1 tablet (500 mg) 2 times daily. 4 Active cholecalciferol (Vitamin D-3) 25 MCG (1000 UT) capsule Take 1 capsule (25 mcg) by mouth Once per day. 4 Active insulin NPH, Isophane, (HumuLIN N,NovoLIN N) 100 UNIT/ML injection 30 units in the morning 4 Active levETIRAcetam (Keppra) 750 MG tablet 5 Active valGANciclovir (Valcyte) 450 MG tablet 5 Active Active Problems Problem Noted Date Diagnosed [...] endurance 11/06 Non-restorable tooth 11/19/2023 History of IA (myocardial infarction) 10/20/2023 Memory problem 10/20/2023 Shortness [...] 's report Asked patient to call his Principal Strategist regarding his increased weight/swelling for further recommendations. Dysphagia 02/08/2023 Positive colorectal cancer screening using Colog uard test 02/04/2023 Overview (11/03/2023): Negative Colonoscopy 06/2023: urgical Pathology Exam - Order: [id number] Component 4 mo ago Case Report Surgicals Case: [id number] Authorizing Provider: Donny Encarnacion Collected: 2023 0843 MD Eugene Ordering Location: [facility] Lab Received: 2023 1011 [...] IHC, or special [place] [address]. Resulting Agency [facility] Specimen Collected: 06/19/23 08:43 Performed by: [facility] Last Resulted: 06/23/23 17:27 Athscl [...] were answered. Coronary artery disease invo lving [place] coronary artery of [place] heart without angina pectoris 11/14/2022 Overview (11/02/2023): Last Assessment & Plan: - nonobstructive disease - continue medical therapy with aspirin, statin, BB - denies angina Stridor 11/13/2022 Overview (11/02/2023): Last Assessment & Plan: Improved after last dilation in April 2023. Mild stridor noted today in clinic Discussed with his primary fashion editor Dr. Sanches and will work to get [...] anxiety 04/06/2022 Ventricular tachycardia, unspecified 04/06/2022 Other terminal worker (current) drug therapy 3 Type 2 diabetes [...] upgraded from dual-chamber to biventricular device at [facility] 03/2022. [place] [facility] [place] Systolic dysfunction 03/13/2022 History of bradycardia 03/13/2022 Family history of prostate cancer 03/13/2022 Complete heart block 04/06/2020 Overview (11/02/2023): Added automatically from request for surgery [id number] Last Assessment & Plan: History of biventricular pacemaker that was upgraded to TRAIL CONSTRUCTION WORKER defibrillator in September. Device interrogated today with [...] starting statin -No need for ischemic evaluation terminal block assembler (current) use of o ral hypoglycemic drugs 04/06/2022 11/03/2023 Other specified diseases of upper respiratory tract 04/06/2022 11/03/2023 Presence of automatic (impla ntable) cardiac defibrillator 04/06/2022 02/05/2024 Cardiac pacemaker in situ 03/13/2022 Uncontrolled type 2 diabetes mellitus with hyperglycemia 04/06/2020 02/05/2024 Overview (11/02/2023): Last Assessment & Plan: Encounters Date Type Department Care Team Description 07/27/2024 10:45 AM EDT Office Visit [facility] [address] [place] [phone] Yoandy Tillman MD Type 2 diabetes mellitus with other circulatory complication, without long-term current use of insulin ([facility]) (Primary Dx); Heart transplant recipient ([facility]) 07/27/2024 Travel 07/26/2024 Telephone [facility] [address] [place] [address] Yoandy Tillman MD CHART PREP 07/18/2024 Telephone [facility] [address] [place] [address] Mary Palm RN Critical Limb Ischemia 07/07/2024 9:00 AM EDT Office Visit [facility] [address] [place] [address] Lena Keene, OD 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, unspecified whether terminal worker insulin use ([facility]) (Primary Dx); Presence of intraocular lens 07/07/2024 Travel 06/23/2024 Telephone [facility] [address] [place] [address] Yoandy Tillman MD from Last 3 Months Immunizations Name Administration [...] with others, in a hotel, in a [place], living outside on the street, on a [...] complication, without long-term current use of insulin ([facility]) POCT GLUCOSE Routine 07/27/2024 10:58 AM EDT Type 2 diabetes mellitus with other circulatory complication, without long-term current use of insulin ([facility]) HEMOGLOBIN A1C Routine 05/26/2024 12:08 PM EST GLUCOSE, WHOLE BLOOD Routine 05/26/2024 11:06 AM EST COMPREHENSIVE METABOLIC PANEL Routine 05/20/2024 11:35 AM EST ALBUMIN, RANDOM URINE W/CREATININE Routine 04/14/2024 11:04 AM EST Type 2 diabetes mellitus with other circulatory complication, without long-term current use of insulin ([facility]) LIPID PANEL, STANDARD Routine 06/27/2022 [...] PM EST) Hemoglobin A1c 7.4(H) <6.0 % [facility] Comment:Hemoglobin A1C Refer ence Range Adults: 4.8 - 6.0 % Non diabetic: < 6.0 % Goal: < 7.0 %Additional Action Suggested: > 8.0 %Note: Hemoglobin A1c results are invalid for patients with abnormal amounts of HbF. Blood transfusions may impact the HbA1c concentration in the patient sample. Estimated Average Glucose 166 mg/dL [facility] Comment:eAG = Estimated ave rage glucose which is %A1C expressed asaverage glucose, using the formula of the D2G-JityhbkFripxwx Glucose study (ADAG), Diabetes Care, Vol.31,#8,2007 05/26/2024 12:0 8 PM EST 05/26/2024 12:08 PM EST Generic External Data Provider LAB BLOOD ORDERAB LES Final Result Performing Organization Address [facility] Co de Phone Number [facility] [address] [place] [phone] * (ABNORMAL) Glucose, Whole Blood (05/26/2024 11:06 AM EST) Glucose, Whole Blood 138(H) 60 - 115 mg/dL [facility] Comment:METER #: [id number] Testing performed in the Endocrinology Department [address] , [address], [facility]. 05/26/2024 11:0 6 AM EST 05/26/2024 11:13 AM EST Generic External Data Provider LAB BLOOD ORDERAB LES Final Result Performing Organization Address [facility] Co de Phone Number [facility] [address] [place] [phone] * (ABNORMAL) Comprehensive Metabolic Panel (05/20/2024 11:35 AM EST) Sodium 140 135 - 145 mmol/L [facility] Potassium 3.6 3.3 - 5.1 mmol/L [facility] Chloride 108 96 - 108 mmol/L [facility] Carbon Dioxide 25 22 - 29 mmol/L [facility] Anion Gap 11(L) 12 - 20 [facility] Urea Nitrogen (BUN) 10 9 - 16 mg/dL [facility] Creatinine, Serum 0.93 0.5 - 1.4 mg/dL [facility] Estimated Glomerular Filt Rate >60 [facility] Comment:Chronic Kidney Disea se: Estimated GFR < 60 mL/min/1.48m1Tbuvpm Kidney Disease: Estimated GFR < 15 mL/min/1.73m2 Glucose 114 60 - 115 mg/dL [facility] Calcium 9.0 8.4 - 10.2 mg/dL [facility] Bilirubin, Total 0.4 0.0 - 1.0 mg/dL [facility] Aspartate Amino Transferase 13 5 - 37 U/L [facility] Alanine Aminotransferase 17 0 - 40 U/L [facility] Total Protein 6.4(L) 6.5 - 8.0 g/dL [facility] Albumin Level 4.0 3.5 - 5.0 g/dL [facility] Alkaline Phosphatase 53 39 - 117 U/L [facility] 05/20/2024 11:3 5 AM EST 05/20/2024 1:10 PM EST us Yoandy Name LAB BLOOD ORDERABLES Final Resul t [facility] [address] [place] [phone] * Albumin, Random Urine W/Creatinine (04/14/2024 11:04 AM EST) Creatinine, Urine 109.08 mg/dL [facility] Microalbumin Urine 6.0 mg/L [facility] Microalbum Creatinine Ratio Ur 5.5 <30 ug/mg cr [facility] Comment:Albumin/Creatinine R atio Reference Ranges: Normal: < 30 ug/mg creatinine Microalbuminuria: 30 - 300 ug/mg creatinineClinical Albuminuria: > 300 ug/mg creatinine Urine (Urine, Random) 04/14/2024 11:04 AM EST 04/14/2024 1:04 PM EST Yoandy Tillman MD LAB URINE ORDERABLES Final Resul t Performing Organization Address [facility] Co de Phone Number [facility] [address] [place] [phone] * Lipid Panel, Standard (06/27/2022 9:53 AM EDT) Triglycerides 84 mg/dL [facility] Comment:Desirable Triglyceri de: less than 150 mg/dLBorderline High Triglyceride 150-199 mg/dLHigh Triglyceride: 200-499 mg/dLVery High Triglyceride: greater than or equal to 5OO mg/dL Cholesterol 154 mg/dL [facility] Comment:Desirable Cholestero l: less than 200 mg/dLBorderline High Cholesterol: 200-239 mg/dLHigh Cholesterol: greater than 239 mg/dL LDL Cholesterol Calculated 104 mg/dl [facility] Comment:Desirable LDL: less than 100 mg/dLNear Optimal/Above Optimal LDL: 110- 129 mg/dLBorderline High LDL: 130-159 mg/dLHigh LDL: 160-189 mg/dLVery High LDL: greater than or equal to 190 mg/dL HDL Cholesterol 34 mg/dL [facility] Comment:Desirable HDL: great er than 40 mg/dL Note: This HDL assay may give artificially low results in patients with liver disease. 06/27/2022 9:53 AM EDT 06/27/2022 9:53 AM EDT [facility] External Provider LAB BLO OD ORDERABLES Final Result Performing Organization Address [facility] Co de Phone Number [facility] [address] [place] [phone] from Last 3 Months or Most Recently Relevant to Health Maintenance Insurance MEDICARE [address] [place] [phone] [facility] MEDEX CARE [facility] Care Teams Metal Bonding Worker Relationship Specialty Start Date End Date Name, MD Yoandy [address] [place] [phone] PCP - General Internal Medicine 10/19/23 [facility] 01/19/24
--- OUTSIDE RECORDS SUMMARY | 2024-08-16 11:58 | XMS_ITS | Encounter Summary ---
Author Organization [employer] Address [address] [place] [address] Care Team Providers Care Pizza Driver Name Role Phone Name, Yoandy LUGO Primary Care Provider [phone] Name, Yoandy LUGO Primary Care Provider [phone] Encounter Details Date Type Department Care Team (Late st Contact Info) Description 03/21/2022 Orders Only [facility] [address] [place] [address] Coby Flores RN Social History Tobacco Use [...] (06/27/2022 9:53 AM EDT) Triglycerides 84 mg/dL [facility] Comment:Desirable Triglyceri de: less than 150 mg/dLBorderline High Triglyceride 150-199 mg/dLHigh Triglyceride: 200-499 mg/dLVery High Triglyceride: greater than or equal to 5OO mg/dL Cholesterol 154 mg/dL [facility] Comment:Desirable Cholestero l: less than 200 mg/dLBorderline High Cholesterol: 200-239 mg/dLHigh Cholesterol: greater than 239 mg/dL LDL Cholesterol Calculated 104 mg/dl [facility] Comment:Desirable LDL: less than 100 mg/dLNear Optimal/Above Optimal LDL: 110- 129 mg/dLBorderline High LDL: 130-159 mg/dLHigh LDL: 160-189 mg/dLVery High LDL: greater than or equal to 190 mg/dL HDL Cholesterol 34 mg/dL [facility] Comment:Desirable HDL: great er than 40 mg/dL Note: This HDL assay may give artificially low results in patients with liver disease. 06/27/2022 9:53 AM EDT 06/27/2022 9:53 AM EDT [facility] External Provider LAB BLO OD ORDERABLES Final Result [facility] [address] [place] [phone] * (ABNORMAL) Basic Metabolic Panel (06/27/2022 9:53 AM EDT) Sodium 143 135 - 145 mmol/L [facility] Potassium 4.6 3.3 - 5.1 mmol/L [facility] Chloride 108 96 - 108 mmol/L [facility] Carbon Dioxide 26 22 - 29 mmol/L [facility] Anion Gap 14 12 - 20 [facility] Urea Nitrogen (BUN) 13 9 - 16 mg/dL [facility] Creatinine, Serum 1.02 0.5 - 1.4 mg/dL [facility] Estimated Glomerular Filt Rate >60 [facility] Comment:NOTE: For -Am erican individuals, multiply the result by 1.210.Chronic Kidney Disease: Estimated GFR < 60 mL/min/1.52o6Hpogal Kidney Disease: Estimated GFR < 15 mL/min/1.73m2 Glucose 141(H) 60 - 115 mg/dL [facility] Calcium 9.4 8.4 - 10.2 mg/dL [facility] 06/27/2022 9:53 AM EDT 06/27/2022 9:53 AM EDT [facility] External Provider LAB BLO OD ORDERABLES Final Result Performing Organization Address [facility] Co de Phone Number [facility] [address] [place] [phone] * Hepatic Function Panel (06/27/2022 9:53 AM EDT) Bilirubin, Total 1.0 0.0 - 1.0 mg/dL [facility] Bilirubin, Direct 0.3 0.0 - 0.5 mg/dL [facility] Aspartate Amino Transferase 19 5 - 37 U/L [facility] Alanine Aminotransferase 24 0 - 40 U/L [facility] Total Protein 6.7 6.5 - 8.0 g/dL [facility] Albumin Level 4.2 3.5 - 5.0 g/dL [facility] Alkaline Phosphatase 61 39 - 117 U/L [facility] 06/27/2022 9:53 AM EDT 06/27/2022 9:53 AM EDT [facility] External Provider LAB BLO OD ORDERABLES Final Result Performing Organization Address [facility] Co de Phone Number [facility] [address] [place] [phone] * (ABNORMAL) B Type Natriuretic Peptide (BNP) (06/27/2022 9:53 AM EDT) B Type Natriuretic Peptide 332(H) <100 pg/mL [facility] Comment:For those patients w ho are being treated with Natrecor(nesiritide, recombinant BNP), BNP testing should beperformed at least two hours post treatment in order toensure that only endogenous levels of BNP are detected. 06/27/2022 9:53 AM EDT 06/27/2022 9:53 AM EDT [facility] External Provider LAB BLO OD ORDERABLES Final Result [facility] [address] [place] [phone] documented in this encounter Visit Diagnoses Not on filedocumented in this encounter Care Teams Pizza Driver Relationship Specialty Start Date End Date Yoandy Tillman MD [address] [place] [address] PCP - General Family Medicine 01/18/21 06/04/23 Yoandy Tillman MD [address] [place] [address] PCP - General Internal Medicine 10/19/23 [facility] 01/19/24 documented as of this encounter
--- OUTSIDE RECORDS SUMMARY | 2024-08-16 11:58 | XMS_ITS | Data Portability ---
Author Organization [place] [facility], Allergy Address [address] [facility] [address] [place] [address] Assessment Encounter Date Assessment Date Assessment LastModified by Organization Details LastModified Time 02/25/2024 02/25/2024 68-year-old male presents today for evaluation of stridor and tracheal stenosis. Symptoms seem to worsen about 3 weeks ago following dilation in November. Of note he had heart transplant about 2 months ago at [facility]. Flexible laryngoscopy did not reveal any vocal [...] heart transplant. Thank you. 2023 Tarsha wagner [facility], [address] [place], [address], 4 09:56:34 Procedures None recorded. Surgeries None recorded. Imaging None recorded. Medication Orders None recorded. Patient TargetsNo targets recorded. Patient InstructionsNo instructions recorded. Reason for Referral Residential Solar Consultant Referral for T gaby stenosis following tracheostomy Established patient of Dr Alegre. Needs follow up appt/repeat endoscopy. Patient has recent heart transplant. Thank you. Referring Physician: Sandip Regalado, Otolaryngology, Encounter Date: 02/25/2024 Problems Name Problem SNOMED Code Status Onset Date Resolution Date Notes Provider Name and Address Organization Details Recorded Time Tracheal stenosis following tracheostomy 40678916 Active 2023 SANDIP REGALADO MD [address] [place] [address],[place] [address], [place], [phone], [facility] 4 12:10:02 Sensorineural hearing loss of bilateral ears 736503516 Active 2024 BORA GRAY, AUD [address] [place] [address],[place] [address], [place], [phone], [facility] 5 16:02:33 Problem Notes None recorded. Procedures Surgical History Date Name Laterality Status Provider Name and Address Organization Details Recorded Time 04/15/19 25 Comp Audio with Tymps - 86098 & 29493 completed BORA GRAY AUD [address] [place] [address],[place] [address], [place], [phone], [facility] 04/15/2024 16:02:37 02/25/20 24 Fiberoptic Laryngoscopy (Comprehensive) completed SANDIP REGALADO MD [address] [place] [address],[address], [phone], [facility] 02/25/2024 12:11:38 Imaging Results None recorded. [...] Not Available Not Available Comfort EZ Pen Gary 32 gauge x /32 active Not Available [...] Updated DateTime 02/25/2024 172.72 cm 26.8 kg/m2 21917.26 g Manda Ly [place] [facility] 02/25/2024 11:47:14 Date Recorded Body height Body mass index (BMI) Body weight Provider Name and Address Organization Details Last Updated DateTime 04/15/2024 172.72 cm 20.2 kg/m2 68427.79 g Manda Ly [facility] 04/15/2024 16:28:34 Social History None recorded. Functional Status None recorded. Mental Status None recorded. Family History Nothing Reported. Medical History Condition Response Heart Problems Y Diabetes Y Hyperlipidemia Y Past Encounters Encounter ID Performer Location Encounter Start Date Encounter Closed Date Diagnosis/Indication Diagnosis SNOMED-CT Code Diagnosis ICD10 Code Diagnosis Note [id number] SANDIP REGALADO MD [facility] [address] [id number] 02/25/2024 11:26:24 02/25/2024 12:26:39 Tracheal stenosis following tracheostomy 14975699 J95.03 [id number] SANDIP REGALADO MD [facility] [address] [address] 04/15/2024 15:37:29 04/15/2024 16:57:22 Sensorineural hearing loss of bilateral ears 769610472 H90.3 68 yo M with a history [...] and there was likely some irritation here. [id number] JACQUE LUGO [facility] [address] [address] 04/15/2024 15:59:22 04/18/2024 07:41:17 Sensorineural hearing loss of bilateral ears 773607525 H90.3 Right Ear:Normal hearing through 1.5K Hz [...] Name 06/15/2024 2 [place] [id number] Matthew L Avila [id number] Matthew Donny Avila Avila 06/15/2024 1 [place] [employer] [facility] Matthew Avila Avila [id number] Matthew Donny Avila Avila 06/15/2024 2 [place] [facility] Matthew L Avila Avila [id number] Matthew Donny Avila Avila Notes Date Note [...] corrected for lung volume SANDIP REGALADO MD [address] [place] [address],[address], [phone], [place] [facility] 02/26/2024 10:58:54 04/15/2024 text/html Starting feeling numb on the side of the ear right after his surgeryTTP over jaw Has seen Dr. Walton. SANDIP REGALADO MD [address] [place] [address],[address], [address], [place] [facility] 04/18/2024 07:25:33
[2024-08-16 12:26] LABS: Alanine Aminotransferase 18 U/L (0-40); Albumin Level 4.4 g/dL (3.5-5.0); Alkaline Phosphatase 56 U/L (39-117); Anion Gap 13 (12-20); Aspartate Amino Transferase 12 U/L (5-37); Bilirubin Total 0.4 mg/dL (0.0-1.0); Blood Urea Nitrogen 19 mg/dL (9-16); Calcium 9.7 mg/dL (8.4-10.2); Carbon Dioxide 26 mmol/L (22-29); Chloride 109 mmol/L (96-108); Estimated Glomerular Filt Rate > 60; Glucose Random 98 mg/dL (60-115); Potassium 4.8 mmol/L (3.3-5.1); Sodium 143 mmol/L (135-145); Total Protein 6.7 g/dL (6.5-8.0)
[2024-08-17 09:58] LABS: Tacrolimus Prograf 8.7 mcg/L
[2024-08-19 10:20] LABS: CMV DNA PCR Qn Source BLOOD
[2024-08-19 10:21] LABS: CMV DNA Qn PCR NOT DETECTED; CMV DNA Qn Real Time PCR NOT DETECTED
== END 2024-08-16 10:43 | disposition home or self-care (01) ==
LOC: HO.HHCL 10:42
PROVIDERS: Visit Provider Internal Medicine Infectious Disease
DX: T86.23 Heart transplant infection (principal)
CPT/HCPCS: 36415; 80053; 80197; 85025; 87497

== ENCOUNTER 2024-08-24 11:08 | Outpatient (REF) | payer MEDICARE, SELFPAY ==
--- OUTSIDE RECORDS SUMMARY | 2024-08-24 12:29 | XMS_ITS | Data Portability ---
Author Organization [place] - [facility], Allergy Address [address] [facility] [address] [place] [address] Assessment Encounter Date Assessment Date Assessment LastModified by Organization Details LastModified Time 02/25/2024 02/25/2024 68-year-old male presents today for evaluation of stridor and tracheal stenosis. Symptoms seem to worsen about 3 weeks ago following dilation in November. Of note he had heart transplant about 2 months ago at [facility]. Flexible laryngoscopy did not reveal [...] heart transplant. Thank you. 2023 Tarsha wagner [facility], [address] [place], [address], 4 09:56:34 Procedures None recorded. Surgeries None recorded. Imaging None recorded. Medication Orders None recorded. Patient TargetsNo targets recorded. Patient InstructionsNo instructions recorded. Reason for Referral Fieldwork Coordinator Referral for T gaby stenosis following tracheostomy Established patient of Dr Alegre. Needs follow up appt/repeat endoscopy. Patient has recent heart transplant. Thank you. Referring Physician: Sandip Regalado, Otolaryngology, Encounter Date: 02/25/2024 Problems Name Problem SNOMED Code Status Onset Date Resolution Date Notes Provider Name and Address Organization Details Recorded Time Tracheal stenosis following tracheostomy 48083070 Active 2023 SANDIP REGALADO MD [address] [place] [address],[place] [address], [place], [phone], [facility] 4 12:10:02 Sensorineural hearing loss of bilateral ears 965150313 Active 2024 BORA GRAY, AUD [address] [place] [address],[place] [address], [place], [phone], [facility] 5 16:02:33 Problem Notes None recorded. Procedures Surgical History Date Name Laterality Status Provider Name and Address Organization Details Recorded Time 04/15/19 25 Comp Audio with Tymps - 90815 & 14607 completed BORA GRAY AUD [address] [place] [address],[place] [address], [place], [address], [facility] 04/15/2024 16:02:37 02/25/20 24 Fiberoptic Laryngoscopy (Comprehensive) completed SANDIP REGALADO MD [address] [place] [address],[address], [address], [facility] 02/25/2024 12:11:38 Imaging Results None recorded. [...] Not Available Not Available Comfort EZ [place] 32 gauge x /32 active Not Available [...] Updated DateTime 02/25/2024 172.72 cm 26.8 kg/m2 83503.26 g Manda Ly [place] - [facility] 02/25/2024 11:47:14 Date Recorded Body height Body mass index (BMI) Body weight Provider Name and Address Organization Details Last Updated DateTime 04/15/2024 172.72 cm 20.2 kg/m2 64051.79 g Manda Ly [facility] 04/15/2024 16:28:34 Social History None recorded. Functional Status None recorded. Mental Status None recorded. Family History Nothing Reported. Medical History Condition Response Diabetes Y Heart Problems Y Hyperlipidemia Y Past Encounters Encounter ID Performer Location Encounter Start Date Encounter Closed Date Diagnosis/Indication Diagnosis SNOMED-CT Code Diagnosis ICD10 Code Diagnosis Note [id number] SANDIP REGALADO MD [facility] [address] [address] 02/25/2024 11:26:24 02/25/2024 12:26:39 Tracheal stenosis following tracheostomy 65723790 J95.03 [id number] SANDIP REGALADO MD [facility] [address] [address] 04/15/2024 15:37:29 04/15/2024 16:57:22 Sensorineural hearing loss of bilateral ears 131768753 H90.3 68 yo M with a history [...] and there was likely some irritation here. [id number] JACQUE LUGO [facility] [address] [address] 04/15/2024 15:59:22 04/18/2024 07:41:17 Sensorineural hearing loss of bilateral ears 896752848 H90.3 Right Ear:Normal hearing through 1.5K Hz [...] Name 06/15/2024 2 [place] [id number] Mattehw L Avila [id number] Matthew Donny Avila Avila 06/15/2024 1 [place] [employer] Matthew Avila Avila [id number] Matthew Donny Avila Avila 06/15/2024 2 [place] [facility] Matthew L Avila Avila [id number] Matthew Donny Avila Avila Notes Date Note [...] corrected for lung volume SANDIP REGALADO MD [address] [place] [address],[address], [address], [place] - [facility] 02/26/2024 10:58:54 04/15/2024 text/html Starting feeling numb on the side of the ear right after his surgeryTTP over jaw Has seen Dr. Walton. SANDIP REGALADO MD [address] [place] [address],[address], [address], [place] - [facility] 04/18/2024 07:25:33
[2024-08-24 13:07] LABS: MANUAL DIFF FLAG NO
[2024-08-24 13:18] LABS: Basophils Percent Auto 0.3 % (0-2); Eosinophils Percent Auto 1.3 % (0-4); Hematocrit 34.9 % (42.0-52.0); Hemoglobin 11.8 g/dl (14.0-18.0); Imm Gran Abs Auto 0.13 X10*3/uL (0.00-0.03); Imm Gran Pct Auto 4.1 % (0.0-0.4); Lymphocytes Absolute Auto 0.4 X10*3/uL (1.2-4.9); Lymphocytes Percent Auto 13.5 % (20-40); Mean Corpuscular HGB Conc 33.8 g/dl (31.0-36.0); Mean Corpuscular Hemoglobin 28.9 pg (27.0-33.0); Mean Corpuscular Volume 85.5 fL (80.0-98.0); Mean Platelet Volume 10.8 fL (9.4-12.4); Monocytes Absolute Auto 0.3 X10*3/uL (0.1-1.2); Monocytes Percent Auto 10.1 % (2-11); Neutrophils Absolute Auto 2.3 x10*3/uL (2.0-8.3); Neutrophils Percent Auto 70.7 % (45-73); Platelet Count 147 X10*3/uL (160-400); Red Blood Count 4.08 X10*6/uL (4.60-5.80); Red Cell Distribution Width 13.5 % (11.0-16.0); White Blood Count 3.2 X10*3/uL (4.8-10.8)
[2024-08-24 14:41] LABS: Alanine Aminotransferase 17 U/L (0-40); Albumin Level 4.5 g/dL (3.5-5.0); Alkaline Phosphatase 52 U/L (39-117); Anion Gap 11 (12-20); Aspartate Amino Transferase 18 U/L (5-37); Bilirubin Total 0.3 mg/dL (0.0-1.0); Blood Urea Nitrogen 18 mg/dL (9-16); Calcium 9.3 mg/dL (8.4-10.2); Carbon Dioxide 27 mmol/L (22-29); Chloride 108 mmol/L (96-108); Estimated Glomerular Filt Rate > 60; Glucose Random 138 mg/dL (60-115); Potassium 4.4 mmol/L (3.3-5.1); Sodium 142 mmol/L (135-145); Total Protein 6.8 g/dL (6.5-8.0)
[2024-08-25 09:44] LABS: Tacrolimus Prograf 7.1 mcg/L
[2024-08-25 14:13] LABS: CMV DNA Qn PCR <1.54 DETECTED Log IU/mL (NOT DETECTED); CMV DNA Qn Real Time PCR <34.5 DETECTED IU/mL (NOT DETECTED)
== END 2024-08-24 11:09 | disposition home or self-care (01) ==
LOC: HO.HHCL 11:08
PROVIDERS: Visit Provider Internal Medicine Infectious Disease
DX: T86.23 Heart transplant infection (principal); E11.649 Type 2 diabetes mellitus with hypoglycemia without coma
CPT/HCPCS: 36415; 80053; 80197; 82947; 85025; 87497; 99212

== ENCOUNTER 2024-08-24 12:48 | Outpatient (AMB) | payer MEDICARE, SELFPAY ==
--- NOTE | 2024-08-24 12:48 | A.OFFVIS_ITS ---
Vital Signs 08/24/24 12:49 Height 5 ft 7 in Weight 138 lb 14.259 oz BMI 21.8 BP 128/76 Blood Pressure Location Rt brachial Position Sitting Pulse 101 H Pulse Source Pulse Oximeter Pulse Oximetry (%) 97 Oxygen Delivery Method Room Air Intake Visit Reasons: DM follow up A1C Intake Note: Patient presents today for a follow-up on Type 2 Diabetes Mellitus: Last Diabetic eye exam was on: DUE Last Podiatry exam was on: Does not see a Publicity Agent Most recent HbA1c: 6.0%, 07/20/2023 Random Glucose- 141 mg/dL, Today Customizer Required: Yes Customizer Language: Jet Work[employer] Services: Customizer Present Customizer Name: ID [id number] Information Interpreted: non-clinical & clinical Accompanied by: Daughter Allergies No Known Allergies [No Known Allergies*] Allergy (Verified 05/26/24 11:00) HPI Comments Details: 68-year-old male presenting for diabetic follow up Medical history: Systemic sarcoidosis and end-stage NICM status post OHT on 12/28/2023 at [facility] on chronic immunosuppression. Now off prednisone PCP: Yoandy Tillman MD Glucometer: One touch A1C 07/2024 6.0%. He is currently prescribed 09/16/11 admelog and glargine 30 units. Having 7% lows with 71 % target and 22% elevated. They have decreased the glargine to 25 units. Again he is now off prednisone and appetite has not been good. Eye exam- June 2024 Podiatry-does not see ROS CONSTITUTIONAL: Denies weight loss, fever and chills. HEENT: Denies changes in vision and hearing. RESPIRATORY: Denies SOB and cough. CV: Denies palpitations and CP GI: Denies abdominal pain, nausea, vomiting and diarrhea. : Denies dysuria and urinary frequency. MSK: Denies new myalgia and joint pain. SKIN: Denies rash and pruritus. NEUROLOGICAL: Denies headache PSYCHIATRIC: Denies recent changes in mood. PHYSICAL EXAM: GENERAL: Alert and oriented x 3. NAD EYES: EOMI. Anicteric. HENT: Moist mucous membranes. No scleral icterus. No cervical lymphadenopathy. LUNGS: Clear to auscultation bilaterally. CARDIOVASCULAR: Regular rate and rhythm. No murmur. No JVD. ABDOMEN: Soft, non-tender +bs EXTREMITIES: No edema. Non-tender. SKIN: No rashes or lesions. Warm. NEUROLOGIC: No focal neurological deficits. CN II-XII grossly intact PSYCHIATRIC: Cooperative. Appropriate mood and affect [facility] Medical History Diabetes Pacemaker Surgical History Hx of heart transplant History of cardiac catheterization (~10/2021) History of cataract surgery Family History Father Diabetes Heart problem Brother Heart attack Social History Alcohol intake: never Patient Tobacco Use Status: Never used Tobacco Physical Exam Vital Signs: Last Vital Signs Pulse 101 H 08/24/24 12:49 BP 128/76 08/24/24 12:49 Pulse Ox 97 08/24/24 12:49 Oxygen Delivery Method Room Air 08/24/24 12:49 BMI result Body Mass Index 21.8 Results Reviewed Results Reviewed: Laboratory Last Values Glucose (Clinic) 141 mg/dL (60-115) H 08/24/24 12:56 Assessment & Plan Assessment & Plan (1) Type 2 diabetes mellitus with unspecified complications: Code(s): E11.8 - Type 2 diabetes mellitus with unspecified complications Category: Medical (2) Hypoglycemia: Code(s): E16.2 - Hypoglycemia, unspecified Category: Medical Plan 69 year old male with controlled type 2 diabetes Unfortunately has been having a lot of hypoglycemia Fortunately he is now on CGM We will decrease his mealtime insulin to 6/6/6 and decrease glargine a little further to 22 units He will follow up in 3 months. Urged to call office if he continues to experience hypoglycemia Medications: Changed From Humalog KwikPen Insulin (insulin lispro) 6 units subcutaneous breakfast, 12 units subcutaneous lunch and 12 units subcutaneous with dinner. Max 30units/24 hours 30 mL 3RF NS Z79.4 - long-term (current) use of insulin To Humalog KwikPen Insulin (insulin lispro) 6 units subcutaneous breakfast, 6 units subcutaneous lunch and 6 units subcutaneous with dinner. 30 mL 3RF NS Z79.4 - long-term (current) use of insulin From insulin degludec (Tresiba FlexTouch U-100 insulin) 30 units (0.3 mL) subcut DAILY 30 mL 3RF To insulin degludec (Tresiba FlexTouch U-100 insulin) 22 units (0.22 mL) subcut DAILY 30 mL 3RF Refilled Humalog KwikPen Insulin (insulin lispro) 6 units subcutaneous breakfast, 6 units subcutaneous lunch and 6 units subcutaneous with dinner. 30 mL 3RF NS Z79.4 - spoilage worker (current) use of insulin Humalog KwikPen Insulin (insulin lispro) 6 units subcutaneous breakfast, 6 units subcutaneous lunch and 6 units subcutaneous with dinner. 30 mL 3RF NS Z79.4 - long-term (current) use of insulin insulin degludec (Tresiba FlexTouch U-100 insulin) 22 units (0.22 mL) subcut DAILY 30 mL 3RF insulin degludec (Tresiba FlexTouch U-100 insulin) 22 units (0.22 mL) subcut DAILY 30 mL 3RF Coding Level of Care Code Est Pt Level 4 (15057) Diagnoses Type 2 diabetes mellitus with unspecified complications E11.8 Hypoglycemia E16.2
[2024-08-24 12:49] VITALS: BP 128/76; PULSE 101; O2SAT 97; BMI 21.8
[2024-08-24 13:02] LABS: Glucose, Whole Blood 141 mg/dL (60-115)
--- OUTSIDE RECORDS SUMMARY | 2024-08-24 13:26 | XMS_ITS | Encounter Summary ---
Author Organization [employer] Address [address] [place] [address] Care Team Providers Care Masseur/Masseuse Name Role Phone Name, Yoandy LUGO Primary Care Provider [phone] Name, Yoandy LUGO Primary Care Provider [phone] Encounter Details Date Type Department Care Team (Late st Contact Info) Description 03/21/2022 Orders Only [facility] [address] [place] [address] Coby Flores, RN Social History Tobacco Use Types Packs/Day [...] AM EST documented as of this encounter Functional Status * Over the past 2 weeks, how often have you been bothered by any of the following problems? Question Answer Date of Assessment Author Little interest or pleasure in doing things Not at all 03/24/2022 9:10 AM Reena Jefferson MA Feeling down, depressed, or hopeless Not at all 03/24/2022 9:10 AM Reena Jefferson MA Patient Health Questionnaire -2 Score 0 03/24/2022 9:10 AM Reena Jefferson MA * Over the past 2 weeks, how often have you been bothered by any of the following problems? Question Answer Date of Assessment Author Trouble falling or staying asleep, or sleeping too much Not at all 03/24/2022 9:10 AM Reena Jefferson MA Feeling tired or having lois le energy Not at all 03/24/2022 9:10 AM Reena Jefferson [place] Poor appetite or overeating Not at all 03/24/2022 9: 10 AM Reena Jefferson MA Feeling bad about yourself - or that you are a failure or have let yourself or your family down Not at all 03/24/2022 9:10 AM Reena Jefferson [place] Trouble concentrating on things, such as reading the newspaper or watching television Not at all 03/24/2022 9:10 AM Reena Jfeferson MA Moving or speaking so slowly that other people could have noticed? Or the opposite - being so fidgety or restless that you have been moving around a lot more than usual. Not at all 03/24/2022 9:10 AM Reena Jefferson MA documented as of this encounter Plan of [...] (06/27/2022 9:53 AM EDT) Triglycerides 84 mg/dL [facility] Comment:Desirable Triglyceri de: less than 150 mg/dLBorderline High Triglyceride 150-199 mg/dLHigh Triglyceride: 200-499 mg/dLVery High Triglyceride: greater than or equal to 5OO mg/dL Cholesterol 154 mg/dL [facility] Comment:Desirable Cholestero l: less than 200 mg/dLBorderline High Cholesterol: 200-239 mg/dLHigh Cholesterol: greater than 239 mg/dL LDL Cholesterol Calculated 104 mg/dl [facility] Comment:Desirable LDL: less than 100 [...] 9:53 AM EDT 06/27/2022 9:53 AM EDT [facility] External Provider LAB BLO OD ORDERABLES Final Result [facility] [address] [place] [phone] * (ABNORMAL) Basic Metabolic Panel (06/27/2022 9:53 AM EDT) Sodium 143 135 - 145 mmol/L [facility] Potassium 4.6 3.3 - 5.1 mmol/L [facility] Chloride 108 96 - 108 mmol/L [facility] Carbon Dioxide 26 22 - 29 mmol/L [facility] Anion Gap 14 12 - 20 [facility] Urea Nitrogen (BUN) 13 9 - 16 mg/dL [facility] Creatinine, Serum 1.02 0.5 - 1.4 mg/dL [facility] Estimated Glomerular Filt Rate >60 [facility] Comment:NOTE: For -Am erican individuals, multiply the result by 1.210.Chronic Kidney Disease: Estimated GFR < 60 mL/min/1.99w2Caacct Kidney Disease: Estimated GFR < 15 mL/min/1.73m2 Glucose 141(H) 60 - 115 mg/dL [facility] Calcium 9.4 8.4 - 10.2 mg/dL [facility] 06/27/2022 9:53 AM EDT 06/27/2022 9:53 AM EDT [facility] External Provider LAB BLO OD ORDERABLES Final Result Performing Organization Address [facility] de Phone Number [facility] [address] [place] [phone] * Hepatic Function Panel (06/27/2022 9:53 AM EDT) Bilirubin, Total 1.0 0.0 - 1.0 mg/dL [facility] Bilirubin, Direct 0.3 0.0 - 0.5 mg/dL [facility] Aspartate Amino Transferase 19 5 - 37 U/L [facility] Alanine Aminotransferase 24 0 - 40 U/L [facility] Total Protein 6.7 6.5 - 8.0 g/dL [facility] Albumin Level 4.2 3.5 - 5.0 g/dL [facility] Alkaline Phosphatase 61 39 - 117 U/L [facility] 06/27/2022 9:53 AM EDT 06/27/2022 9:53 AM EDT [facility] External Provider LAB BLO OD ORDERABLES Final Result Performing Organization Address [facility] de Phone Number [facility] [address] [place] [address] [phone] * (ABNORMAL) B Type Natriuretic Peptide (BNP) (06/27/2022 9:53 AM EDT) B Type Natriuretic Peptide 332(H) <100 pg/mL [facility] Comment:For those patients w ho are being treated with Natrecor(nesiritide, recombinant BNP), BNP testing should beperformed at least two hours post treatment in order toensure that only endogenous levels of BNP are detected. 06/27/2022 9:53 AM EDT 06/27/2022 9:53 AM EDT [facility] External Provider LAB BLO OD ORDERABLES Final Result [facility] [address] [place] [phone] documented in this encounter Visit Diagnoses Not on filedocumented in this encounter Care Teams Masseur/Masseuse Relationship Specialty Start Date End Date Name, MD Yoandy [address] [place] [address] PCP - General Family Medicine 01/18/21 06/04/23 Name, MD Yoandy [address] [place] [address] PCP - General Internal Medicine 10/19/23 [facility] 01/19/24 documented as of this encounter
--- OUTSIDE RECORDS SUMMARY | 2024-08-24 13:26 | XMS_ITS | Encounter Summary ---
Author Organization [employer] Address [address] [facility] [address] [place] [address] Care Team Providers Care Shoe Cobbler Name Role Phone Name, Yoandy LUGO Primary Care Provider [phone] Name, Yoandy LUGO Primary Care Provider [phone] Reason for Visit * Reason Onset Date Comments FYI 10/01/2022 Encounter Details Date Type Department Care Team ([facility] st Contact Info) Description 10/01/2022 Telephone [facility] [address] [place], [place] [address] Name, MD Yoandy [address] [place] [address] FYI Social History Tobacco Use Types Packs/Day [...] - 10/01/2022 3:26 PM EDT Tc from [facility] facility that patient during their vacation in [place] had two Heart Attacks and is currently hospitalized since 09/15/2022 at the [facility] documented in this encounter Plan of Treatment Not on file documented as of this encounter Visit Diagnoses Not on filedocumented in this encounter Care Teams Shoe Cobbler Relationship Specialty Start Date End Date NameYoandy MD [address] [place] [address] PCP - General Family Medicine 01/18/21 06/04/23 Name, MD Yoandy [address] [place] [address] PCP - General Internal Medicine 10/19/23 [facility] 01/19/24 documented as of this encounter
--- OUTSIDE RECORDS SUMMARY | 2024-08-24 13:26 | XMS_ITS | Clinical Summary ---
Author Organization [employer] Address [address] [facility] 7[address] [place] [address] Care Team Providers Care Broom Machine Operator Name Role Phone Name, Yoandy LUGO Primary Care Provider [phone] Allergies Active Allergy Reactions Criticality Noted Date [...] bedtime. 4 Active Sharps Container (BD Sharps Water Pump Servicer) [facility] For disposal of needles and lancets Active [...] endurance 11/06 Non-restorable tooth 11/19/2023 History of [place] (myocardial infarction) 10/20/2023 Memory problem 10/20/2023 Shortness [...] 's report Asked patient to call his Manager Of Supply Chain regarding his increased weight/swelling for further recommendations. Dysphagia 02/08/2023 Positive colorectal cancer screening using Colog uard test 02/04/2023 Overview (11/03/2023): Negative Colonoscopy 06/2023: urgical Pathology Exam - Order: [id number] Component 4 mo ago Case Report Surgicals Case: [id number] Authorizing Provider: Donny Encarnacion Collected: 2023 0843 MD Eugene Ordering Location: [facility] GI Lab Received: 2023 1011 Pathologist: [...] IHC, or [place] [address]. Resulting Agency [facility] Specimen Collected: 06/19/23 08:43 Performed by: [facility] Last Resulted: 06/23/23 17:27 Athscl heart [...] were answered. Coronary artery disease invo lving [place] coronary artery of [place] heart without angina pectoris 11/14/2022 Overview (11/02/2023): Last Assessment & Plan: - nonobstructive disease - continue medical therapy with aspirin, statin, BB - denies angina Stridor 11/13/2022 Overview (11/02/2023): Last Assessment & Plan: Improved after last dilation in April 2023. Mild stridor noted today in clinic Discussed with his primary business functional analyst Dr. Sanches and will work to get [...] anxiety 04/06/2022 Ventricular tachycardia, unspecified 04/06/2022 Other halfway (current) drug therapy 3 Type 2 diabetes [...] [place] [facility] [place] [facility] [place] Systolic dysfunction 03/13/2022 History of bradycardia 03/13/2022 Family history of prostate cancer 03/13/2022 Complete heart block 04/06/2020 Overview (11/02/2023): Added automatically from request for surgery [id number] Last Assessment & Plan: History of biventricular pacemaker that was upgraded to HUMANE AGENT defibrillator in September. Device interrogated today with [...] starting statin -No need for ischemic evaluation [facility] (current) use of o ral hypoglycemic drugs 04/06/2022 11/03/2023 Other specified diseases of upper respiratory tract 04/06/2022 11/03/2023 Presence of automatic (impla ntable) cardiac defibrillator 04/06/2022 02/05/2024 Cardiac pacemaker in situ 03/13/2022 Uncontrolled type 2 diabetes mellitus with hyperglycemia 04/06/2020 02/05/2024 Overview (11/02/2023): Last Assessment & Plan: Encounters Date Type Department Care Team Description 07/27/2024 10:45 AM EDT Office Visit [facility] [address] [place] [address] Yoandy Tillman MD Type 2 diabetes mellitus with other circulatory complication, without long-term current use of insulin ([facility]) (Primary Dx); Heart transplant recipient ([facility]) 07/27/2024 Travel 07/26/2024 Telephone [facility] [address] [place] [address] Yoandy Tillman MD CHART PREP 07/18/2024 Telephone [facility] [address] [place] [address] Mary Palm RN Critical Limb Ischemia 07/07/2024 9:00 AM EDT Office Visit [facility] [address] [place] [address] Lena Keene, OD 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, unspecified whether halfway insulin use ([facility]) (Primary Dx); Presence of intraocular lens 07/07/2024 Travel 06/23/2024 Telephone [facility] [address] [place] [address] Yoandy Tillman MD from Last 3 Months Immunizations Immunization Administration Dates Next Due Hep B, adult [...] (2 of 2) 01/21/2024 11/26/2023 COVID-19 Vaccine (5 - Mixed Product risk season) 2024 02/05/2024, 02/25/2022, 02/25/2022, Additional history [...] patient's age to complete this topic Meningococcal B Vaccine Aged Out No l onger eligible based on patient's age to complete [...] Associated Diagnosis Comments GLUCOSE, WHOLE BLOOD Routine 08/24/2024 12:56 PM EDT POCT GLYCATED HEMOGLOBIN, TOTAL Routine 07/27/2024 10:59 AM EDT Type 2 diabetes mellitus with other circulatory complication, without long-term current use of insulin ([facility]) POCT GLUCOSE Routine 07/27/2024 10:58 AM EDT Type 2 diabetes mellitus with other circulatory complication, without long-term current use of insulin ([facility]) ALBUMIN, RANDOM URINE W/CREATININE Routine 04/14/2024 11:04 AM EST Type 2 diabetes mellitus with other circulatory complication, without long-term current use of insulin ([facility]) LIPID PANEL, STANDARD Routine 06/27/2022 9:53 AM EDT from Last 3 Months or Most Recently Relevant to Health Maintenance Results * (ABNORMAL) Glucose, Whole Blood (08/24/2024 12:56 PM EDT) Glucose, Whole Blood 141(H) 60 - 115 mg/dL [facility] Comment:METER #: [id number] 5Testing performed in the Endocrinology Department [address] , [address], [facility]. 08/24/2024 12:5 6 PM EDT 08/24/2024 1:01 PM EDT us Generic External Data Provider LAB BLOOD ORDERAB LES Final Result [facility] [address] [place] [phone] * POCT HGB A1C (07/27/2024 10:59 AM EDT) Hemoglobin A1C 5.7 4.0 - 6.0 % QC Media Lot # [id number] Lot# Expiration Date ,42 Blood 07/27/2024 10:5 9 AM EDT us Yoandy Tillman MD POINT OF CARE TEST ENTER/EDIT OR DERABLES Final Result * POCT Glucose (07/27/2024 10:58 AM EDT) Glucose Blood, POC 171 60 - 200 mg/dL QC Media Lot # [id number] Lot# Expiration Date 82,401 Blood Capillary blood specimen / Unknown 07/27/2024 10:58 AM EDT us Yoandy Tillman MD POINT OF CARE TEST ENTER/EDIT OR DERABLES Final Result * Albumin, Random Urine W/Creatinine (04/14/2024 11:04 AM EST) Creatinine, Urine 109.08 mg/dL [facility] Microalbumin Urine 6.0 mg/L [facility] Microalbum Creatinine Ratio Ur 5.5 <30 ug/mg cr [facility] Comment:Albumin/Creatinine R atio Reference Ranges: Normal: < 30 ug/mg creatinine Microalbuminuria: 30 - 300 ug/mg creatinineClinical Albuminuria: > 300 ug/mg creatinine Urine (Urine, Random) 04/14/2024 11:04 AM EST 04/14/2024 1:04 PM EST us Yoandy Tillman MD LAB URINE ORDERABLES Final Resul t [facility] [address] [place] [phone] * Lipid Panel, Standard (06/27/2022 9:53 AM EDT) Triglycerides 84 mg/dL [facility] Comment:Desirable Triglyceri de: less than 150 mg/dLBorderline High Triglyceride 150-199 mg/dLHigh Triglyceride: 200-499 mg/dLVery High Triglyceride: greater than or equal to 5OO mg/dL Cholesterol 154 mg/dL [facility] Comment:Desirable Cholestero l: less than 200 mg/dLBorderline High Cholesterol: 200-239 mg/dLHigh Cholesterol: greater than 239 mg/dL LDL Cholesterol Calculated 104 mg/dl [facility] Comment:Desirable LDL: less than 100 mg/dLNear Optimal/Above Optimal LDL: 110- 129 mg/dLBorderline High LDL: 130-159 mg/dLHigh LDL: 160-189 mg/dLVery High LDL: greater than or equal to 190 mg/dL HDL Cholesterol 34 mg/dL [facility] Comment:Desirable HDL: great er than 40 mg/dL Note: This HDL assay may give artificially low results in patients with liver disease. 06/27/2022 9:53 AM EDT 06/27/2022 9:53 AM EDT us [facility] External Provider LAB BLO OD ORDERABLES Final Result [facility] [address] [place] [phone] from Last 3 Months or Most Recently Relevant to Health Maintenance Insurance MEDICARE [facility] MEDEX CARE [facility] STANDARD Care Teams Broom Machine Operator Relationship Specialty Start Date End Date Name, MD Yoandy [address] [place] [address] PCP - General Internal Medicine 10/19/23 [facility] [place] 01/19/24
== END 2024-08-24 13:27 | disposition home or self-care (01) ==
LOC: HO.ENCR 12:48
PROVIDERS: PCP Internal Medicine Geriatric Medicine; Visit Provider Internal Medicine
DX: E11.8 Type 2 diabetes mellitus with unspecified complications (principal); E16.2 Hypoglycemia, unspecified

== ENCOUNTER 2024-08-30 10:35 | Outpatient (REF) | payer MEDICARE, SELFPAY ==
[2024-08-30 11:09] LABS: MANUAL DIFF FLAG NO
[2024-08-30 11:14] LABS: Basophils Percent Auto 0.3 % (0-2); Eosinophils Absolute Auto 0.1 X10*3/uL (0.0-0.4); Eosinophils Percent Auto 1.4 % (0-4); Hematocrit 32.4 % (42.0-52.0); Hemoglobin 11.1 g/dl (14.0-18.0); Imm Gran Abs Auto 0.02 X10*3/uL (0.00-0.03); Imm Gran Pct Auto 0.6 % (0.0-0.4); Lymphocytes Absolute Auto 0.6 X10*3/uL (1.2-4.9); Lymphocytes Percent Auto 16.6 % (20-40); Mean Corpuscular HGB Conc 34.3 g/dl (31.0-36.0); Mean Corpuscular Volume 84.6 fL (80.0-98.0); Mean Platelet Volume 10.2 fL (9.4-12.4); Monocytes Absolute Auto 0.6 X10*3/uL (0.1-1.2); Monocytes Percent Auto 15.7 % (2-11); Neutrophils Absolute Auto 2.3 x10*3/uL (2.0-8.3); Neutrophils Percent Auto 65.4 % (45-73); Platelet Count 130 X10*3/uL (160-400); Red Blood Count 3.83 X10*6/uL (4.60-5.80); Red Cell Distribution Width 13.2 % (11.0-16.0); White Blood Count 3.5 X10*3/uL (4.8-10.8)
--- OUTSIDE RECORDS SUMMARY | 2024-08-30 11:20 | XMS_ITS | Clinical Summary ---
Author Organization [email or web address] Address [address] [facility] 7[address] [place] [address] Care Team Providers Care Delivery Mgr Name Role Phone Name, Yoandy LUGO Primary Care Provider [phone] Allergies Active Allergy Reactions Criticality Noted Date [...] bedtime. 4 Active Sharps Container (BD Sharps Steel Inspector) [facility] [place] For disposal of needles and lancets Active [...] endurance 11/06 Non-restorable tooth 11/19/2023 History of [place] (myocardial infarction) 10/20/2023 Memory problem 10/20/2023 Shortness [...] 's report Asked patient to call his Telecommunications Analyst regarding his increased weight/swelling for further recommendations. Dysphagia 02/08/2023 Positive colorectal cancer screening using Colog uard test 02/04/2023 Overview (11/03/2023): Negative Colonoscopy 06/2023: urgical Pathology Exam - Order: [id number] Component 4 mo ago Case Report Surgicals Case: [id number] Authorizing Provider: Donny Encarnacion Collected: 2023 0843 MD Eugene Ordering Location: [facility] GI Lab Received: 2023 1011 [...] IHC, [place] [address]. Resulting Agency [facility] Specimen Collected: 06/19/23 08:43 Performed by: [facility] Last Resulted: 06/23/23 17:27 Athscl heart [...] were answered. Coronary artery disease invo lving [place] coronary artery of [place] heart without angina pectoris 11/14/2022 Overview (11/02/2023): Last Assessment & Plan: - nonobstructive disease - continue medical therapy with aspirin, statin, BB - denies angina Stridor 11/13/2022 Overview (11/02/2023): Last Assessment & Plan: Improved after last dilation in April 2023. Mild stridor noted today in clinic Discussed with his primary tail board worker Dr. Sanches and will work to get [...] anxiety 04/06/2022 Ventricular tachycardia, unspecified 04/06/2022 Other group home (current) drug therapy 3 Type 2 diabetes [...] [place] [facility] [place] [facility] [place] Systolic dysfunction 03/13/2022 History of bradycardia 03/13/2022 Family history of prostate cancer 03/13/2022 Complete heart block 04/06/2020 Overview (11/02/2023): Added automatically from request for surgery [id number] Last Assessment & Plan: History of biventricular pacemaker that was upgraded to ACCESS SERVICE REPRESENTATIVE defibrillator in September. Device interrogated today with [...] starting statin -No need for ischemic evaluation skilled nursing (current) use of o ral hypoglycemic drugs 04/06/2022 11/03/2023 Other specified diseases of upper respiratory tract 04/06/2022 11/03/2023 Presence of automatic (impla ntable) cardiac defibrillator 04/06/2022 02/05/2024 Cardiac pacemaker in situ 03/13/2022 Uncontrolled type 2 diabetes mellitus with hyperglycemia 04/06/2020 02/05/2024 Overview (11/02/2023): Last Assessment & Plan: Encounters Date Type Department Care Team Description 07/27/2024 10:45 AM EDT Office Visit [facility] [address] [place] [address] Yoandy Tillman MD Type 2 diabetes mellitus with other circulatory complication, without long-term current use of insulin ([facility] (Primary Dx); Heart transplant recipient ([facility]) 07/27/2024 Travel 07/26/[address] [facility] [address] [place] [address] Yoandy Tillman MD CHART PREP 07/18/[address] [facility] [address] [place] [address] Mary Palm RN Critical Limb Ischemia 07/07/2024 9:00 AM EDT Office Visit 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 [address] [place] [address] Yoandy Tillman MD from Last 3 Months [...] complication, without long-term current use of insulin ([facility]) POCT GLUCOSE Routine 07/27/2024 10:58 AM EDT Type 2 diabetes mellitus with other circulatory complication, without long-term current use of insulin ([facility]) ALBUMIN, RANDOM URINE W/CREATININE Routine 04/14/2024 11:04 AM EST Type 2 diabetes mellitus with other circulatory complication, without long-term current use of insulin ([facility]) LIPID PANEL, STANDARD Routine 06/27/2022 9:53 AM EDT from Last 3 Months or Most Recently Relevant to Health Maintenance Results * (ABNORMAL) Glucose, Whole Blood (08/24/2024 12:56 PM EDT) Glucose, Whole Blood 141(H) 60 - 115 mg/dL [facility] Comment:METER #: [id number] 5Testing performed in the Endocrinology Department [address] , [address], [facility]. 08/24/2024 12:5 6 PM EDT 08/24/2024 1:01 PM EDT us Generic External Data Provider LAB BLOOD ORDERAB LES Final Result [facility] [address] [place] [phone] * POCT HGB A1C (07/27/2024 10:59 [...] Media Lot # [id number] Lot# Expiration Date [id number] Blood Capillary blood specimen / Unknown 07/27/2024 10:58 AM EDT us Yoandy Tillman MD POINT OF CARE TEST ENTER/EDIT OR DERABLES Final Result * Albumin, Random Urine W/Creatinine (04/14/2024 11:04 AM EST) Creatinine, Urine 109.08 mg/dL [facility] Microalbumin Urine 6.0 mg/L [facility] Microalbum Creatinine Ratio Ur 5.5 <30 ug/mg cr [facility] Comment:Albumin/Creatinine R atio Reference Ranges: Normal: < 30 ug/mg creatinine Microalbuminuria: 30 - 300 ug/mg creatinineClinical Albuminuria: > 300 ug/mg creatinine Urine (Urine, Random) 04/14/2024 11:04 AM EST 04/14/2024 1:04 PM EST us Yoandy Tillman MD LAB URINE ORDERABLES Final Resul t [facility] [address] [place] [phone] * Lipid Panel, Standard (06/27/2022 9:53 AM EDT) Triglycerides 84 mg/dL [facility] Comment:Desirable Triglyceri de: less than 150 mg/dLBorderline High Triglyceride 150-199 mg/dLHigh Triglyceride: 200-499 mg/dLVery High Triglyceride: greater than or equal to 5OO mg/dL Cholesterol 154 mg/dL [facility] Comment:Desirable Cholestero l: less than 200 mg/dLBorderline High Cholesterol: 200-239 mg/dLHigh Cholesterol: greater than 239 mg/dL LDL Cholesterol Calculated 104 mg/dl [facility] Comment:Desirable LDL: less than 100 mg/dLNear Optimal/Above Optimal LDL: 110- 129 mg/dLBorderline High LDL: 130-159 mg/dLHigh LDL: 160-189 mg/dLVery High LDL: greater than or equal to 190 mg/dL HDL Cholesterol 34 mg/dL [facility] Comment:Desirable HDL: great er than 40 mg/dL Note: This HDL assay may give artificially low results in patients with liver disease. 06/27/2022 9:53 AM EDT 06/27/2022 9:53 AM EDT us [facility] External Provider LAB BLO OD ORDERABLES Final Result [facility] [address] [place] [phone] from Last 3 Months or Most Recently Relevant to Health Maintenance Insurance MEDICARE [facility] MEDEX CARE [facility] STANDARD Care Teams Delivery Mgr Relationship Specialty Start Date End Date Name, MD Yoandy [address] [place] [address] PCP - General Internal Medicine 10/19/23 [facility] [place] 01/19/24
[2024-08-30 12:04] LABS: Alanine Aminotransferase 14 U/L (0-40); Albumin Level 4.4 g/dL (3.5-5.0); Alkaline Phosphatase 48 U/L (39-117); Anion Gap 8 (12-20); Aspartate Amino Transferase 13 U/L (5-37); Bilirubin Total 0.3 mg/dL (0.0-1.0); Blood Urea Nitrogen 15 mg/dL (9-16); Calcium 9.3 mg/dL (8.4-10.2); Carbon Dioxide 28 mmol/L (22-29); Chloride 113 mmol/L (96-108); Estimated Glomerular Filt Rate > 60; Glucose Random 115 mg/dL (60-115); Potassium 4.2 mmol/L (3.3-5.1); Sodium 145 mmol/L (135-145); Total Protein 6.5 g/dL (6.5-8.0)
[2024-08-31 19:13] LABS: Tacrolimus Prograf 6.7 mcg/L
[2024-09-01 01:33] LABS: CMV DNA Qn PCR NOT DETECTED Log IU/mL (NOT DETECTED); CMV DNA Qn Real Time PCR NOT DETECTED (NOT DETECTED)
== END 2024-08-30 10:36 | disposition home or self-care (01) ==
LOC: HO.HHCL 10:35
PROVIDERS: Visit Provider Internal Medicine Infectious Disease
DX: T86.23 Heart transplant infection (principal)
CPT/HCPCS: 36415; 80053; 80197; 85025; 87497

== ENCOUNTER 2024-09-27 10:21 | Outpatient (REF) | payer MEDICARE, SELFPAY ==
[2024-09-27 11:26] LABS: MANUAL DIFF FLAG NO
--- OUTSIDE RECORDS SUMMARY | 2024-09-27 11:30 | XMS_ITS | Clinical Summary ---
Author Organization [employer] Address [address] [facility] [address] [place] [address] Care Team Providers Care Sales Representative Business Courses Name Role Phone Name, Yoandy LUGO Primary Care Provider [phone] Allergies Active Allergy Reactions Criticality Noted Date [...] bedtime. 4 Active [employer] ([employer]) [facility] [place] of needles and lancets Active [...] endurance 11/06 Non-restorable tooth 11/19/2023 History of OR (myocardial infarction) 10/20/2023 Memory [...] 's report Asked patient to call his Truck Chauffeur regarding his increased weight/swelling for further recommendations. Dysphagia 02/08/2023 Positive colorectal cancer screening using Colog uard test 02/04/2023 Overview (11/03/2023): Negative Colonoscopy 06/2023: urgical Pathology Exam - Order: [id number] Component 4 mo ago Case Report Surgicals Case: [id number] Authorizing Provider: Donny Encarnacion Collected: 2023 0843 MD Eugene Ordering Location: [facility] Received: 2023 1011 Pathologist: Shannan [...] IHC, [place] [address]. Resulting Agency [facility] Specimen Collected: 06/19/23 08:43 Performed by: [facility] Last Resulted: 06/23/23 17:27 Athscl heart [...] were answered. Coronary artery disease invo lving [place] coronary artery of [place] heart without angina pectoris 11/14/2022 Overview (11/02/2023): Last Assessment & Plan: - nonobstructive disease - continue medical therapy with aspirin, statin, BB - denies angina Stridor 11/13/2022 Overview (11/02/2023): Last Assessment & Plan: Improved after last dilation in April 2023. Mild stridor noted today in clinic Discussed with his primary television cabinet finisher Dr. Sanches and will work to get [...] in September. ICD in situ. On low-dose beta-ails. No obstructive CAD on cardiac catheterization in September. Hyperlipidemia, unspecified 04/06/2022 Unspecified dementia, unspec ified severity, without behavioral disturbance, psychotic disturbance, mood disturbance, and anxiety 04/06/2022 Ventricular tachycardia, unspecified 04/06/2022 Other senior care (current) drug therapy 3 Type 2 diabetes [...] from dual-chamber to biventricular device at [facility] 03/2022. [place] [facility] [place] Systolic dysfunction 03/13/2022 History of bradycardia 03/13/2022 Family history of prostate cancer 03/13/2022 Complete heart block 04/06/2020 Overview (11/02/2023): Added automatically from request for surgery [id number] Last Assessment & Plan: History of biventricular pacemaker that was upgraded to [employer] defibrillator in September. Device interrogated today with [...] starting statin -No need for ischemic evaluation residential (current) use of o ral hypoglycemic drugs 04/06/2022 11/03/2023 Other specified diseases of upper respiratory tract 04/06/2022 11/03/2023 Presence of automatic (impla ntable) cardiac defibrillator 04/06/2022 02/05/2024 Cardiac pacemaker in situ 03/13/2022 Uncontrolled type 2 diabetes mellitus with hyperglycemia 04/06/2020 02/05/2024 Overview (11/02/2023): Last Assessment & Plan: Encounters Date Type Department Care Team Description 09/12/2024 Telephone [facility] [address] [place] [address] Americo Stiles [place] november recalls 07/27/2024 10:45 AM EDT Office Visit [facility] [address] [place] [address] NameYoandy MD Type 2 diabetes mellitus with other circulatory complication, without long-term current use of insulin ([facility]) (Primary Dx); Heart transplant recipient ([facility]) 07/27/2024 Travel 07/26/2024 Telephone [facility] [address] [place] [address] Yoandy Tillman MD CHART PREP 07/18/2024 Telephone [facility] [address] [place] [address] Mary Palm RN Critical Limb Ischemia 07/07/2024 9:00 AM EDT Office Visit [facility] [address] [place] [address] Lena Keene, RONNIE 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, unspecified whether senior care insulin use ([facility]) (Primary Dx); Presence of intraocular lens 07/07/2024 Travel from Last 3 Months Immunizations Immunization Administration [...] with others, in a hotel, in a mcfp, living outside on the street, on a [...] t he electric, gas, oil or water [employer] threatened to shut off services in your [...] 110 07/27/2024 10:57 AM EDT Temperature 36.8 C (98.2 F) 07/27/2024 10:57 AM EDT Respiratory Rate 14 07/27/2024 10:57 AM EDT [...] Pneumococcal Vaccine: 50+ Years Completed 01/12/2023, 05/30/2021 Hepatitis C Screening Discontinued 11/24/2023 Influenza Vaccine Completed 12/16/2023, 01/12/2023 HIB Vaccines Aged Out No longer eligi ble based on patient's age to complete this topic HPV Vaccines Aged Out No longer eligi ble based on patient's age to complete this topic Hepatitis A Vaccines Aged Out No long er eligible based on patient's age to complete this topic IPV Vaccines Aged Out No longer eligi [...] insulin ([facility]) POCT GLUCOSE Routine 07/27/2024 10:58 AM EDT Type 2 diabetes mellitus with other circulatory complication, without long-term current use of insulin ([facility]) ALBUMIN, RANDOM URINE W/CREATININE Routine 04/14/2024 11:04 AM EST Type 2 diabetes mellitus with other circulatory complication, without long-term current use of insulin ([facility]) LIPID PANEL, STANDARD Routine 06/27/2022 9:53 AM EDT from Last 3 Months or Most Recently Relevant to Health Maintenance Results * (ABNORMAL) Glucose, Whole Blood (08/24/2024 12:56 PM EDT) Glucose, Whole Blood 141(H) 60 - 115 mg/dL [facility] Comment:METER #: [id number] 5Testing performed in the Endocrinology Department [address] , [address], [employer]. 08/24/2024 12:5 6 PM EDT 08/24/2024 1:01 PM EDT us Generic External Data Provider LAB BLOOD ORDERAB LES Final Result [facility] [address] [place] [phone] * POCT HGB A1C (07/27/2024 10:59 [...] 11:04 AM EST) Creatinine, Urine 109.08 mg/dL [facility] Microalbumin Urine 6.0 mg/L [facility] Microalbum Creatinine Ratio Ur 5.5 <30 ug/mg cr [facility] Comment:Albumin/Creatinine R atio Reference Ranges: Normal: < 30 ug/mg creatinine Microalbuminuria: 30 - 300 ug/mg creatinineClinical Albuminuria: > 300 ug/mg creatinine Urine (Urine, Random) 04/14/2024 11:04 AM EST 04/14/2024 1:04 PM EST us Yoandy Tillman MD LAB URINE ORDERABLES Final Resul t [facility] [address] [place] [phone] * Lipid Panel, Standard (06/27/2022 9:53 AM EDT) Triglycerides 84 mg/dL [facility] Comment:Desirable Triglyceri de: less than 150 mg/dLBorderline High Triglyceride 150-199 mg/dLHigh Triglyceride: 200-499 mg/dLVery High Triglyceride: greater than or equal to 5OO mg/dL Cholesterol 154 mg/dL [facility] Comment:Desirable Cholestero l: less than 200 mg/dLBorderline High Cholesterol: 200-239 mg/dLHigh Cholesterol: greater than 239 mg/dL LDL Cholesterol Calculated 104 mg/dl [facility] Comment:Desirable LDL: less than 100 mg/dLNear Optimal/Above Optimal LDL: 110- 129 mg/dLBorderline High LDL: 130-159 mg/dLHigh LDL: 160-189 mg/dLVery High LDL: greater than or equal to 190 mg/dL HDL Cholesterol 34 mg/dL [facility] Comment:Desirable HDL: great er than 40 mg/dL Note: This HDL assay may give artificially low results in patients with liver disease. 06/27/2022 9:53 AM EDT 06/27/2022 9:53 AM EDT us [facility] External Provider LAB BLO OD ORDERABLES Final Result Performing Organization Address City/State/[facility] Co de Phone Number [facility] [address] [place] [address] [phone] from Last 3 Months or Most Recently Relevant to Health Maintenance Insurance MEDICARE [facility] [place] STANDARD Care Teams Sales Representative Business Courses Relationship Specialty Start Date End Date Name, MD Yoandy [address] [place] [phone] PCP - General Internal Medicine [facility]19[facility]23 [facility]19[facility]24
[2024-09-27 11:35] LABS: Basophils Percent Auto 0.2 % (0-2); Eosinophils Absolute Auto 0.2 X10*3/uL (0.0-0.4); Eosinophils Percent Auto 4.3 % (0-4); Hemoglobin 10.2 g/dl (14.0-18.0); Imm Gran Abs Auto 0.06 X10*3/uL (0.00-0.03); Imm Gran Pct Auto 1.4 % (0.0-0.4); Lymphocytes Absolute Auto 0.4 X10*3/uL (1.2-4.9); Lymphocytes Percent Auto 9.4 % (20-40); Mean Corpuscular Hemoglobin 28.6 pg (27.0-33.0); Monocytes Absolute Auto 0.5 X10*3/uL (0.1-1.2); Neutrophils Percent Auto 71.7 % (45-73); Platelet Count 129 X10*3/uL (160-400); Red Blood Count 3.57 X10*6/uL (4.60-5.80); Red Cell Distribution Width 13.1 % (11.0-16.0); White Blood Count 4.2 X10*3/uL (4.8-10.8)
[2024-09-27 12:07] LABS: Alanine Aminotransferase 13 U/L (0-40); Albumin Level 4.4 g/dL (3.5-5.0); Alkaline Phosphatase 44 U/L (39-117); Anion Gap 12 (12-20); Aspartate Amino Transferase 24 U/L (5-37); Bilirubin Total 0.5 mg/dL (0.0-1.0); Blood Urea Nitrogen 21 mg/dL (9-16); Calcium 9.6 mg/dL (8.4-10.2); Carbon Dioxide 23 mmol/L (22-29); Chloride 112 mmol/L (96-108); Estimated Glomerular Filt Rate 51; Glucose Random 90 mg/dL (60-115); Potassium 4.3 mmol/L (3.3-5.1); Sodium 143 mmol/L (135-145); Total Protein 6.6 g/dL (6.5-8.0)
[2024-09-28 11:48] LABS: Tacrolimus Prograf 20.3 mcg/L
[2024-09-29 13:38] LABS: CMV DNA Qn PCR 2.95 Log IU/mL (NOT DETECTED)
== END 2024-09-27 10:22 | disposition home or self-care (01) ==
LOC: HO.HHCL 10:21
PROVIDERS: PCP Internal Medicine Geriatric Medicine; Visit Provider Internal Medicine Infectious Disease
DX: T86.23 Heart transplant infection (principal); Z79.899 Other long term (current) drug therapy
CPT/HCPCS: 36415; 80053; 80197; 85025; 87497

== ENCOUNTER 2024-10-11 11:15 | Outpatient (REF) | payer MEDICARE, SELFPAY ==
[2024-10-11 12:13] LABS: MANUAL DIFF FLAG NO
[2024-10-11 12:23] LABS: Hematocrit 29.6 % (42.0-52.0); Hemoglobin 9.5 g/dl (14.0-18.0); Imm Gran Abs Auto 0.03 X10*3/uL (0.00-0.03); Imm Gran Pct Auto 1.1 % (0.0-0.4); Lymphocytes Absolute Auto 0.4 X10*3/uL (1.2-4.9); Mean Corpuscular HGB Conc 32.1 g/dl (31.0-36.0); Mean Corpuscular Hemoglobin 27.9 pg (27.0-33.0); Mean Corpuscular Volume 86.8 fL (80.0-98.0); NRBC Abs Auto 0.000 X10*3/uL (0.0-0.012); NRBC Pct Auto 0.0 /100WBC (0.0-0.2); Platelet Count 154 X10*3/uL (160-400); Red Blood Count 3.41 X10*6/uL (4.60-5.80); White Blood Count 2.8 X10*3/uL (4.8-10.8)
--- OUTSIDE RECORDS SUMMARY | 2024-10-11 12:23 | XMS_ITS | Data Portability ---
Author Organization [place] [facility], Allergy Address [address] [facility] [address] [place] [address] Assessment Encounter Date Assessment Date Assessment LastModified by Organization Details LastModified Time 02/25/2024 02/25/2024 68-year-old male presents today for evaluation of stridor and tracheal stenosis. Symptoms seem to worsen about 3 weeks ago following dilation in November. Of note he had heart transplant about 2 months ago at [facility]. Flexible laryngoscopy did not reveal any [...] will schedule this for a future visit. [email or web address] Not available 02/26/2024 10:55:59 Plan of Treatment Reminders Order Date Submit Date Provider Last Modified By Organization Details Last Modified Time Details Appointments None recorded. Lab None recorded. Referral pulmonologi st referral - Established patient of Dr Alegre. Needs follow up appt/repeat endoscopy. Patient has recent heart transplant. Thank you. 2023 Tarsha wagner [facility], [address] [facility], [place], [address], 09:56:34 Procedures None recorded. Surgeries None recorded. Imaging None recorded. Medication Orders None recorded. Patient TargetsNo targets recorded. Patient InstructionsNo instructions recorded. Reason for Referral Hooker Laster Referral for T gaby stenosis following tracheostomy Established patient of Dr Alegre. Needs follow up appt/repeat endoscopy. Patient has recent heart transplant. Thank you. Referring Physician: Sandip Regalado, Otolaryngology, Encounter Date: 02/25/2024 Problems Name Problem SNOMED Code Status Onset Date Resolution Date Notes Provider Name and Address Organization Details Recorded Time Tracheal stenosis following tracheostomy 24562046 Active 2023 SANDIP REGALADO MD [address] [facility],[place] [address], [place], [phone], [facility] 4 12:10:02 Sensorineural hearing loss of bilateral ears 109252714 Active 2024 BORA GRAY, [facility] [address] [facility],[place] [address], [place], [address], [facility] 5 16:02:33 Problem Notes None recorded. Procedures Surgical History Date Name Laterality Status Provider Name and Address Organization Details Recorded Time 04/15/19 25 Comp Audio with Tymps - 75822 & 15813 completed BORA GRAY [address],[place] [address], [place], [phone], [facility] 04/15/2024 16:02:37 02/25/20 24 Fiberoptic Laryngoscopy (Comprehensive) completed SANDIP REGALADO MD [address] [place] [address],[address], [phone], [facility] 02/25/2024 12:11:38 Imaging Results None recorded. [...] Not Available Not Available Comfort EZ Pen Bandana 32 gauge x 5/32 active Not Available [...] Updated DateTime 04/15/2024 172.72 cm 20.2 kg/m2 92949.79 g Manda Ly [place] [facility] 04/15/2024 16:28:34 Date Recorded Body height Body mass index (BMI) Body weight Provider Name and Address Organization Details Last Updated DateTime 02/25/2024 172.72 cm 26.8 kg/m2 46393.26 g Manda Ly [facility] 02/25/2024 11:47:14 Social History None recorded. Functional Status None recorded. Mental Status None recorded. Family History Nothing Reported. Medical History Condition Response Diabetes Y Heart Problems Y Hyperlipidemia Y Past Encounters Encounter ID Performer Location Encounter Start Date Encounter Closed Date Diagnosis/Indication Diagnosis SNOMED-CT Code Diagnosis ICD10 Code Diagnosis Note [id number] SANDIP REGLAADO MD [facility] [address] [address] 02/25/2024 11:26:24 02/25/2024 12:26:39 Tracheal stenosis following tracheostomy 28049581 J95.03 [id number] SANDIP REGALADO MD [facility] [address] [address] 04/15/2024 15:37:29 04/15/2024 16:57:22 Sensorineural hearing loss of bilateral ears 394013127 H90.3 68 yo M with a history [...] and there was likely some irritation here. [id number] JACQUE LUGO [facility] [address] [address] 04/15/2024 15:59:22 04/18/2024 07:41:17 Sensorineural hearing loss of bilateral ears 178598440 H90.3 Right Ear:Normal hearing through 1.5K Hz [...] Name 06/15/2024 2 [place] [id number] Matthew L Avila [id number] Matthew Donny Avila Avila 06/15/2024 1 [place] [employer] Matthew Avila Avila [id number] Matthew Donny Avila Avila 06/15/2024 2 [place] [facility] Matthew L Avila Avila [id number] Matthew Donny Avila Avila Notes Date Note [...] corrected for lung volume SANDIP REGALADO MD [address] [place] [address],[address], [address], [place] [facility] 02/26/2024 10:58:54 04/15/2024 text/html Starting feeling numb on the side of the ear right after his surgeryTTP over jaw Has seen Dr. Walton. SANDIP REGALADO MD [address] [place] [address],[place] [address], [place], [address], [place] [facility] 04/18/2024 07:25:33
--- OUTSIDE RECORDS SUMMARY | 2024-10-11 12:23 | XMS_ITS | Clinical Summary ---
Author Organization [employer] Address [address] [facility] 7t [place] [address] Care Team Providers Care Brain Surgeon Name Role Phone Name, Yoandy LUGO Primary Care Provider [phone] Allergies Active Allergy Reactions Criticality Noted Date Comments Lisinopril Cough 03/13/2022 Medications Blood Glucose Monitoring Suppl (FreeStyle glucose monitoring) kit 1 each if needed. Test 1 time by intradermal route everyday Active FREESTYLE LITE test strip TEST BLOOD SUGAR EVERY DAY 100 strip 11 023 Active aspirin 81 MG chewable tablet Chew 1 tablet (81 mg) Once daily. 90 tablet Active budesonide (Pulmicort) 0.5 MG/2ML nebulizer solution USE 1 VIAL IN NEBULIZER TWICE DAILY RINSE MOUTH AFTER USE Active amoxicillin (Amoxil) 500 MG capsule TAKE FOUR CAPSULES BY MOUTH ONE HOUR BEFORE DENTAL WORK. Active mycophenolate (Cellcept) 500 MG tablet Take 1,000 mg by mouth 2 times daily. 2024 Active pantoprazole (ProtoNix) 40 MG EC tablet Take 40 mg by mouth before breakfast. 2024 Active sennosides (Senokot) 8.6 MG tablet Take 8.6 mg by mouth if needed in the morning and at bedtime. Active Sharps Container (BD Sharps Solar Applications Development Engineer) misc For disposal of needles and lancets Active sulfamethoxazole -trimethoprim (Bactrim DS) 800-160 MG tablet Take 1 tablet by mouth Once per day. Active HumaLOG KWIKPEN 100 UNIT/ML injection Administer subcutaneous 5 units with breakfast, 6 units with lunch and dinner Active calcium carbonate (Tums) 500 MG chewable tablet Chew 1 tablet (500 mg) 2 times daily. 2024 Active cholecalciferol (Vitamin D-3) 25 MCG (1000 UT) capsule Take 1 capsule (25 mcg) by mouth Once per day. 2024 Active levETIRAcetam (Keppra) 750 MG tablet Take 1 tablet by mouth 2 times daily. Active valGANciclovir (Valcyte) 450 MG tablet Take 1 tablet by mouth 2 times daily. Active Alcohol Swabs (B-D SINGLE USE SWABS REGULAR) pads Use as directed Active fluticasone (Flonase) 50 MCG/ACT nasal spray Administer 1 spray into each nostril Once per day. 2024 Active pen needle 31G x 5 mm misc Use with insulin pen as directed Active pravastatin (Pravachol) 80 MG tablet Take 1 tablet by mouth Once per day. Active predniSONE (Deltasone) 5 MG tablet Take 1 tablet by mouth Once per day. Active tacrolimus (Prograf) 1 MG capsule Take 4 capsules by mouth 2 times daily. 2025 Active insulin glargine (Lantus SoloStar) 100 UNIT/ML pen Inject 22 Units under the skin at bedtime. Active torsemide (Demadex) 10 MG tablet Take 1 tablet (10 mg) by mouth Once per day. 30 tablet 1 2024 Discontinued(M ed list cleanup (will not trigger notification to Pharmacy)) mexiletine (Mexitil) 150 MG capsule Take 1 capsule (150 mg) by mouth every 8 (eight) hours. 90 capsule 11 2024 Discontinued(M ed list cleanup (will not trigger notification to Pharmacy)) spironolactone (Aldactone) 25 MG tablet Take 1 tablet by mouth Once per day. 2024 Discontinued(M ed list cleanup (will not trigger notification to Pharmacy)) metoprolol succinate XL (Toprol-XL) 25 MG 24 hr tablet Take 0.5 tablets by mouth Once per day. Do not crush or chew. 2024 Discontinued(M ed list cleanup (will not trigger notification to Pharmacy)) pravastatin (Pravachol) 40 MG tablet Take 40 mg by mouth at bedtime. 2024 Discontinued(M ed list cleanup (will not trigger notification to Pharmacy)) sodium zirconium cyclosilicate (Lokelma) 10 g packet Take 10 g by mouth if needed each day. 2024 Discontinued(M ed list cleanup (will not trigger notification to Pharmacy)) sodium chloride 0.9 % nebulizer solution USE 3ML VIAL IN NEBULIZER TWICE DAILY FOR 14 DAYS. MIX WITH 10 DROPS OF CIPRODEX SOLUTION. 2024 Discontinued(M ed list cleanup (will not trigger notification to Pharmacy)) insulin NPH, Isophane, (HumuLIN N,NovoLIN N) 100 UNIT/ML injection 30 units in the morning 2024 Discontinued(M ed list cleanup (will not trigger notification to Pharmacy)) Active Problems Problem Noted Date Diagnosed Date Hospital discharge follow-up 10/06/2024 Pulmonary nodules 07/27/2024 Cytomegalovirus infection 06/30/2024 Chronic [...] endurance 11/06 Non-restorable tooth 11/19/2023 History of [place] (myocardial infarction) 10/20/2023 Memory problem 10/20/2023 Shortness [...] 's report Asked patient to call his Configuration Consultant regarding his increased weight/swelling for further recommendations. Dysphagia 02/08/2023 Positive colorectal cancer screening using Colog uard test 02/04/2023 Overview (11/03/2023): Negative Colonoscopy 06/2023: urgical Pathology Exam - Order: [id number] Component 4 mo ago Case Report Surgicals Case: [id number] Authorizing Provider: Donny Encarnacion Collected: 2023 0843 [...] IHC, or special [place] [address]. Resulting Agency [facility] Specimen Collected: 06/19/23 08:43 Performed by: [facility] Last Resulted: 06/23/23 17:27 Athscl heart [...] were answered. Coronary artery disease invo lving [place] coronary artery of [place] heart without angina pectoris 11/14/2022 Overview (11/02/2023): Last Assessment & Plan: - nonobstructive disease - continue medical therapy with aspirin, statin, BB - denies angina Stridor 11/13/2022 Overview (11/02/2023): Last Assessment & Plan: Improved after last dilation in April 2023. Mild stridor noted today in clinic Discussed with his primary manager radiation Dr. Sanches and will work to get [...] 04/06/2022 Ventricular tachycardia, unspecified 04/06/2022 Other terminal superintendent (current) drug therapy Type 2 diabetes mellitus with circulatory disord [...] upgraded from dual-chamber to biventricular device [place] [facility] [place]. Follows at [facility] cardi Systolic dysfunction 03/13/2022 History of bradycardia 03/13/2022 Family history of prostate cancer 03/13/2022 Complete heart block 04/06/2020 Overview (11/02/2023): Added automatically from request for surgery [id number] Last Assessment & Plan: History of biventricular pacemaker that was upgraded to COAL TRIMMER defibrillator in September. 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 hypoglycemic drugs 04/06/2022 11/03/2023 Other specified diseases of upper respiratory tract 04/06/2022 11/03/2023 Presence of automatic (impla ntable) cardiac defibrillator 04/06/2022 02/05/2024 Cardiac pacemaker in situ 03/13/2022 Uncontrolled type 2 diabetes mellitus with hyperglycemia 04/06/2020 02/05/2024 Overview (11/02/2023): Last Assessment & Plan: Encounters Date Type Department Care Team Description 10/05/2024 Telephone [facility] [address] [place] [address] Keven Horan MD CHART PREP 09/29/[address] [address] NameYoandy MD Referral 09/29/[address] [address] NameYoandy MD Hospital Follow-up 09/12/[address] [address] Americo Stiles [place] november recalls 07/27/2024 10:45 AM EDT Office Visit [address] [address] NameYoandy MD Type 2 diabetes mellitus with other circulatory complication, without long-term current use of insulin ([facility]) (Primary Dx); Heart transplant recipient ([facility]) 07/27/2024 Travel 07/26/[address] [address] Yoandy Tillman MD CHART PREP 07/18/[address] [address] Mary Palm RN Critical Limb Ischemia from Last 3 Months Immunizations Immunization Administration [...] with others, in a hotel, in a halfway, living outside on the street, on a [...] 10/20/2023, 10/20/19 24 SDOH Screening 10/19/2024 10/20/2023 Influenza Vaccine (#1) 2024 12/16/2023, 2022 Lipid Panel 01/25/2025 01/26/2024, 06/05, 06/23/2022, Additional [...] 01/12/2023, 05/30/2021 Hepatitis C Screening Discontinued 11/24/2023 HIB Vaccines Aged Out No longer eligi [...] complication, without long-term current use of insulin ([facility]) POCT GLUCOSE Routine 07/27/2024 10:58 AM EDT Type 2 diabetes mellitus with other circulatory complication, without long-term current use of insulin ([facility]) ALBUMIN, RANDOM URINE W/CREATININE Routine 04/14/2024 11:04 AM EST Type 2 diabetes mellitus with other circulatory complication, without long-term current use of insulin ([facility]) LIPID PANEL, STANDARD Routine 06/27/2022 9:53 AM EDT from Last 3 Months or Most Recently Relevant to Health Maintenance Results * (ABNORMAL) Glucose, Whole Blood (08/24/2024 12:56 PM EDT) Glucose, Whole Blood 141(H) 60 - 115 mg/dL [facility] Comment:METER #: [id number] 5Testing performed in the Endocrinology Department [address] , [address], [facility]. 08/24/2024 12:5 6 PM EDT 08/24/2024 1:01 PM EDT us Generic External Data Provider LAB BLOOD ORDERAB LES Final Result [facility] [address] [place] [phone] * POCT HGB A1C (07/27/2024 10:59 AM [...] 11:04 AM EST) Creatinine, Urine 109.08 mg/dL [facility] Microalbumin Urine 6.0 mg/L [facility] Microalbum Creatinine Ratio Ur 5.5 <30 ug/mg cr [facility] Comment:Albumin/Creatinine R atio Reference Ranges: Normal: < 30 ug/mg creatinine Microalbuminuria: 30 - 300 ug/mg creatinineClinical Albuminuria: > 300 ug/mg creatinine Urine (Urine, Random) 04/14/2024 11:04 AM EST 04/14/2024 1:04 PM EST us Yoandy Tillman MD LAB URINE ORDERABLES Final Resul t Performing Organization Address City/State/[facility] Co de Phone Number [facility] [address] [place] [phone] * Lipid Panel, Standard (06/27/2022 9:53 AM EDT) Triglycerides 84 mg/dL [facility] Comment:Desirable Triglyceri de: less than 150 mg/dLBorderline High Triglyceride 150-199 mg/dLHigh Triglyceride: 200-499 mg/dLVery High Triglyceride: greater than or equal to 5OO mg/dL Cholesterol 154 mg/dL [facility] Comment:Desirable Cholestero l: less than 200 mg/dLBorderline High Cholesterol: 200-239 mg/dLHigh Cholesterol: greater than 239 mg/dL LDL Cholesterol Calculated 104 mg/dl [facility] Comment:Desirable LDL: less than 100 mg/dLNear Optimal/Above Optimal LDL: 110- 129 mg/dLBorderline High LDL: 130-159 mg/dLHigh LDL: 160-189 mg/dLVery High LDL: greater than or equal to 190 mg/dL HDL Cholesterol 34 mg/dL [facility] Comment:Desirable HDL: great er than 40 mg/dL Note: This HDL assay may give artificially low results in patients with liver disease. 06/27/2022 9:53 AM EDT 06/27/2022 9:53 AM EDT us [facility] External Provider LAB BLO OD ORDERABLES Final Result [facility] [address] [place] [phone] [phone] from Last 3 Months or Most Recently Relevant to Health Maintenance Insurance * Guarantor: Matthew Toro Account Type Relation to Patient Date of Phone Billing Address Personal/Family Self [address] [place] [phone] MEDICARE [facility] MEDEX CARE [facility] Care Teams Brain Surgeon Relationship Specialty Start Date End Date Name, MD Yoandy [address] [place] [address] PCP - General Internal Medicine 10/19/23 [facility] [place] 01/19/24
[2024-10-11 12:53] LABS: Alanine Aminotransferase 18 U/L (0-40); Albumin Level 4.5 g/dL (3.5-5.0); Alkaline Phosphatase 51 U/L (39-117); Anion Gap 10 (12-20); Aspartate Amino Transferase 25 U/L (5-37); Blood Urea Nitrogen 12 mg/dL (9-16); Calcium 9.1 mg/dL (8.4-10.2); Carbon Dioxide 26 mmol/L (22-29); Chloride 110 mmol/L (96-108); Estimated Glomerular Filt Rate 54; Potassium 4.2 mmol/L (3.3-5.1); Sodium 142 mmol/L (135-145); Total Protein 6.7 g/dL (6.5-8.0)
[2024-10-12 11:53] LABS: Tacrolimus Prograf 6.8 mcg/L
[2024-10-12 18:23] LABS: CMV DNA Qn PCR 3.13 Log IU/mL (NOT DETECTED)
== END 2024-10-11 11:16 | disposition home or self-care (01) ==
LOC: HO.HHCL 11:15
PROVIDERS: PCP Internal Medicine Geriatric Medicine; Visit Provider Internal Medicine Infectious Disease
DX: T86.23 Heart transplant infection (principal); Z79.899 Other long term (current) drug therapy
CPT/HCPCS: 36415; 80053; 80197; 85025; 87497

== ENCOUNTER 2024-10-25 12:23 | Outpatient (REF) | payer MEDICARE, SELFPAY ==
--- OUTSIDE RECORDS SUMMARY | 2024-10-25 13:31 | XMS_ITS | Encounter Summary ---
Author Organization [employer] Address [address] [facility] [address]t [place] [address] Care Team Providers Care Executive Administrative Asst Name Role Phone Name, Yoandy LUGO Primary Care Provider [phone] Name, Yoandy LUGO Primary Care Provider [phone] Reason for Visit * Reason Onset Date Comments FYI 10/01/2022 Encounter Details Date Type Department Care Team ([facility] st Contact Info) Description 10/01/2022 Telephone [facility] [address] [place], [place] [phone] Name, MD Yoandy [address] [place] [address] FYI Social History Tobacco Use Types Packs/Day [...] 10/01/2022 3:26 PM EDT Tc from [facility] facility that patient during their vacation in [place] had two Heart Attacks and is currently hospitalized since 09/15/[address] [facility] documented in this encounter Plan of Treatment Not on file documented as of this encounter Visit Diagnoses Not on filedocumented in this encounter Care Teams Executive Administrative Asst Relationship Specialty Start Date End Date NameYoandy MD [address] [place] [address] PCP - General Family Medicine 01/18/21 06/04/23 Name, MD Yoandy [address] [place] [address] PCP - General Internal Medicine 10/19/23 [facility] 01/19/24 documented as of this encounter
--- OUTSIDE RECORDS SUMMARY | 2024-10-25 13:31 | XMS_ITS | Clinical Summary ---
Author Organization [facility] Address [facility] [address] [place] [address] Phone Care Team Providers Care Heat Regulator Name Role Phone Name, Yoandy LUGO Primary Care Provider [phone] Social History Tobacco Use Types Packs/Day Years Used Date Smoking Tobacco: Never Assessed Education Answer Date Recorded Are you interested in more education? Not on sanna e 11/03/2023 Are you concerned about learning? Not on file 11/03/2023 No 11/03/2023 No 11/03/2023 Digital Access Answer Date Recorded No 11/03/2023 No 11/03/2023 Reliable internet access at home? Not on file 11/03/2023 Device with a working camera? Not on file Sex and Gender Information Value Date Recorded Sex Assigned at Male 11/02/2023 2:09 PM EDT Legal Sex Male 10:11 AM EDT Gender Identity Male 11/02/2023 2:09 PM EDT Sexual Orientation Straight 11/02/2023 2: 09 PM EDT Plan of Treatment Health Maintenance Due Date Last Done Comments Adult Td,Tdap Booster 1955 LIPID PANEL 1955 DEPRESSION SCREENING 1967 SMOKING Hx and SMOKELESS TOB ACCO SCREENING 06/18/1968 HEPATITIS C SCREENING 06/18/1973 COLOGUARD 06/18/2000 COLONOSCOPY 06/18/2000 COLORECTAL CANCER SCREENING 06/18/2000 FIT TEST 06/18/2000 FOBT 06/18/2000 SIGMOIDOSCOPY 06/18/2000 VIRTUAL COLONOSCOPY 06/18/2000 PNEUMOCOCCAL VACCINES (50+ y ears) (1 of 1 - PCV) 06/18/2005 ZOSTER VACCINES (1 of 2) 06/18/2005 COVID-19 VACCINE (1 - 2023-2 5 season) 2023 RSV VACCINE (1 - 1-dose 75+ series) 06/18/2030 HEPATITIS A VACCINES Aged Out No long er eligible based on patient's age to complete this topic HIB VACCINES Aged Out No longer eligi ble based on patient's age to complete this topic MENINGOCOCCAL VACCINES (ACWY) Aged Out No longer eligible based on patient's age to complete this topic MENINGOCOCCAL VACCINES (B) Aged Out N o longer eligible based on patient's age to complete this topic Medical Devices Not on file Insurance MEDICARE PART A & B Member Subscriber Plan / Payer (Ef fective 2020-Present) Name:Matthew Toro Member ID:[id number] Relation to Subscriber:Self Name:Matthew Toro Subscriber ID:[id number] Payer ID:[id number] Group ID:Not on file Type:Medicare Address: [facility] [employer] [facility] [address] [place] [address] [facility] FULL [facility] PART [facility] & B [facility]ULL [facility] [place] PART A & [place] [id number] FORMERLY [facility] FULL [facility] MEDICARE PART A & B [facility] NET FULL MEDICARE PART A & B [facility] NET FULL Member Subscriber Plan / Payer (Ef fective 2023-Present) Name:Avila Margarita Matthew Donny Relation to Subscriber:Self Name:Avila Avila Matthew Donny Payer ID:Not on file Group ID:Not on file Type:Medicaid [address] A & B [facility]LY [facility] FULL B Care Teams Heat Regulator Relationship Specialty Start Date End Date Name, MD Yoandy [address] [place] [address] PCP - General Internal Medicine 11/02/23 Additional Source Comments The information contained in this document represents components of the legal health record. It is not the complete legal health record.[facility]
--- OUTSIDE RECORDS SUMMARY | 2024-10-25 13:32 | XMS_ITS | Data Portability ---
Author Organization [place] - [facility], Allergy Address [address] [facility] [address] [place] [address] Assessment Encounter Date Assessment Date Assessment LastModified by Organization Details LastModified Time 02/25/2024 02/25/2024 68-year-old male presents today for evaluation of stridor and tracheal stenosis. Symptoms seem to worsen about 3 weeks ago following dilation in November. Of note he had heart transplant about 2 months ago at [facility]. Flexible laryngoscopy did not reveal [...] heart transplant. Thank you. 2023 Tarsha wagner [facility], [address] [facility], [place], [address], 09:56:34 Procedures None recorded. Surgeries None recorded. Imaging None recorded. Medication Orders None recorded. Patient TargetsNo targets recorded. Patient InstructionsNo instructions recorded. 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 Needs follow up appt/repeat endoscopy. Patient has recent heart transplant. Thank you. Referring Physician: Sandip Regalado, Otolaryngology, Encounter Date: 02/25/2024 Problems Name Problem SNOMED Code Status Onset Date Resolution Date Notes Provider Name and Address Organization Details Recorded Time Tracheal stenosis following tracheostomy 16875056 Active 2023 SANDIP REGALADO MD [address] [facility],[place] [address], [place], [phone], [facility] - [facility] 4 12:10:02 Sensorineural hearing loss of bilateral ears 417020767 Active 2024 BORA GRAY, [facility] [address] [facility],[place] [address], [place], [phone], [facility] 5 16:02:33 Problem Notes None recorded. Procedures Surgical History Date Name Laterality Status Provider Name and Address Organization Details Recorded Time 04/15/19 25 Comp Audio with Tymps - 64508 & 31389 completed BORA GRAY [address],[place] [address], [place], [phone], [facility] 04/15/2024 16:02:37 02/25/20 24 Fiberoptic Laryngoscopy (Comprehensive) completed SANDIP REGALADO MD [address] [place] [address],[address], [phone], [facility] 02/25/2024 12:11:38 Imaging Results None recorded. [...] Not Available Not Available Comfort EZ Pen [place] 32 gauge x 5/32 active Not Available [...] Updated DateTime 04/15/2024 172.72 cm 20.2 kg/m2 28475.79 g Manda Ly [place] - [facility] 04/15/2024 16:28:34 Date Recorded Body height Body mass index (BMI) Body weight Provider Name and Address Organization Details Last Updated DateTime 02/25/2024 172.72 cm 26.8 kg/m2 63581.26 g Manda Ly [facility] 02/25/2024 11:47:14 Social History None recorded. Functional Status None recorded. Mental Status None recorded. Family History Nothing Reported. Medical History Condition Response Diabetes Y Heart Problems Y Hyperlipidemia Y Past Encounters Encounter ID Performer Location Encounter Start Date Encounter Closed Date Diagnosis/Indication Diagnosis SNOMED-CT Code Diagnosis ICD10 Code Diagnosis Note [id number] SANDIP REGALADO MD [facility] [address] [address] 02/25/2024 11:26:24 02/25/2024 12:26:39 Tracheal stenosis following tracheostomy 58824548 J95.03 [id number] SANDIP REGALADO MD [facility] [address] [address] 04/15/2024 15:37:29 04/15/2024 16:57:22 Sensorineural hearing loss of bilateral ears 415297968 H90.3 68 yo M with a history [...] and there was likely some irritation here. [id number] JACQUE LUGO [facility] [address] [address] 04/15/2024 15:59:22 04/18/2024 07:41:17 Sensorineural hearing loss of bilateral ears 200975722 H90.3 Right Ear:Normal hearing through 1.5K Hz [...] Name 06/15/2024 2 [place] [id number] Matthew L Avila [id number] Matthew Donny Avila Avila 06/15/2024 1 [place]: [employer] Matthew Avila Avila [id number] Matthew Donny Avila Avila 06/15/2024 2 [place] [facility] Matthew L Avila Avila [id number] Matthew Donny Avila Avila Notes Date Note [...] corrected for lung volume SANDIP REGALADO MD [address] [place] [address],[address], [address], [place] - [facility] 02/26/2024 10:58:54 04/15/2024 text/html Starting feeling numb on the side of the ear right after his surgeryTTP over jaw Has seen Dr. Walton. SANDIP REGALADO MD [address] [place] [address],[place] [address], [place], [address], [place] [facility] 04/18/2024 07:25:33
[2024-10-25 14:04] LABS: Hematocrit 30.8 % (42.0-52.0); Hemoglobin 10.5 g/dl (14.0-18.0); Imm Gran Abs Auto 0.01 X10*3/uL (0.00-0.03); Imm Gran Pct Auto 0.4 % (0.0-0.4); Lymphocytes Absolute Auto 0.4 X10*3/uL (1.2-4.9); Mean Corpuscular HGB Conc 34.1 g/dl (31.0-36.0); Mean Corpuscular Hemoglobin 29.2 pg (27.0-33.0); Mean Corpuscular Volume 85.6 fL (80.0-98.0); NRBC Abs Auto 0.000 X10*3/uL (0.0-0.012); NRBC Pct Auto 0.0 /100WBC (0.0-0.2); Platelet Count 138 X10*3/uL (160-400); Red Blood Count 3.60 X10*6/uL (4.60-5.80)
[2024-10-25 14:06] LABS: White Blood Count 2.5 X10*3/uL (4.8-10.8)
[2024-10-25 15:14] LABS: Alanine Aminotransferase 21 U/L (0-40); Albumin Level 4.7 g/dL (3.5-5.0); Alkaline Phosphatase 51 U/L (39-117); Anion Gap 13 (12-20); Aspartate Amino Transferase 23 U/L (5-37); Blood Urea Nitrogen 17 mg/dL (9-16); Calcium 9.5 mg/dL (8.4-10.2); Carbon Dioxide 25 mmol/L (22-29); Chloride 109 mmol/L (96-108); Estimated Glomerular Filt Rate > 60; Potassium 4.8 mmol/L (3.3-5.1); Sodium 142 mmol/L (135-145); Total Protein 6.9 g/dL (6.5-8.0)
[2024-10-26 11:13] LABS: Tacrolimus Prograf 6.0 mcg/L
[2024-10-26 14:18] LABS: CMV DNA Qn PCR 1.64 Log IU/mL (NOT DETECTED)
== END 2024-10-25 12:24 | disposition home or self-care (01) ==
LOC: HO.LABR 12:23
PROVIDERS: Visit Provider Nurse Practitioner Family
DX: Z51.81 Encounter for therapeutic drug level monitoring (principal); Z79.621 Long term (current) use of calcineurin inhibitor; B25.9 Cytomegaloviral disease, unspecified; Z84.1 Family history of disorders of kidney and ureter
CPT/HCPCS: 36415; 80053; 80197; 85025; 87497

== ENCOUNTER 2024-10-31 10:27 | Outpatient (REF) | payer MEDICARE, SELFPAY ==
--- OUTSIDE RECORDS SUMMARY | 2024-10-31 11:36 | XMS_ITS | Data Portability ---
Author Organization [facility], Allergy Address [address] [facility] [address] [place] [address] Assessment Encounter Date Assessment Date Assessment LastModified by Organization Details LastModified Time 02/25/2024 02/25/2024 68-year-old male presents today for evaluation of stridor and tracheal stenosis. Symptoms seem to worsen about 3 weeks ago following dilation in November. Of note he had heart transplant about 2 months ago at [facility]. Flexible laryngoscopy did not reveal any vocal [...] heart transplant. Thank you. 2023 Tarsha wagner [facility], [address] [facility], [place], [address], 09:56:34 Procedures None recorded. Surgeries None recorded. Imaging None recorded. Medication Orders None recorded. Patient TargetsNo targets recorded. Patient InstructionsNo instructions recorded. Reason for Referral Fisher Purse Seine Referral for T gaby stenosis following tracheostomy Established patient of Dr Alegre. Needs follow up appt/repeat endoscopy. Patient has recent heart transplant. Thank you. Referring Physician: Sandip Regalado, Otolaryngology, Encounter Date: 02/25/2024 Problems Name Problem SNOMED Code Status Onset Date Resolution Date Notes Provider Name and Address Organization Details Recorded Time Tracheal stenosis following tracheostomy 75474267 Active 2023 SANDIP REGALADO MD [address] [facility],[place] [address], [place], [address], [facility] 4 12:10:02 Sensorineural hearing loss of bilateral ears [id number] Active 2024 BORA GRAY, [facility] [address] [facility],[place] [address], [place], [address], [facility] 5 16:02:33 Problem Notes None recorded. Procedures Surgical History Date Name Laterality Status Provider Name and Address Organization Details Recorded Time 04/15/19 25 Comp Audio with Tymps - 30789 & 15241 completed BORA GRAY [address],[place] [address], [place], [address], [facility] 04/15/2024 16:02:37 02/25/20 24 Fiberoptic Laryngoscopy (Comprehensive) completed SANDIP REGALADO MD [address] [place] [address],[address], [address], [facility] 02/25/2024 12:11:38 Imaging Results None recorded. Procedure [...] Not Available Not Available Comfort EZ Pen Marcy 32 gauge x 5/32 active Not Available [...] Updated DateTime 04/15/2024 172.72 cm 20.2 kg/m2 48059.79 g Manda Ly [facility] 04/15/2024 16:28:34 Date Recorded Body height Body mass index (BMI) Body weight Provider Name and Address Organization Details Last Updated DateTime 02/25/2024 172.72 cm 26.8 kg/m2 12516.26 g Manda Ly [facility] 02/25/2024 11:47:14 Social History None recorded. Functional Status None recorded. Mental Status None recorded. Family History Nothing Reported. Medical History Condition Response Diabetes Y Heart Problems Y Hyperlipidemia Y Past Encounters Encounter ID Performer Location Encounter Start Date Encounter Closed Date Diagnosis/Indication Diagnosis SNOMED-CT Code Diagnosis ICD10 Code Diagnosis Note [id number] SANDIP REGALADO MD [facility] [address] [address] 02/25/2024 11:26:24 02/25/2024 12:26:39 Tracheal stenosis following tracheostomy 08227531 J95.03 [id number] SANDIP REGALADO MD [facility] [address] [address] 04/15/2024 15:37:29 04/15/2024 16:57:22 Sensorineural hearing loss of bilateral ears 747765490 H90.3 68 yo M with a history [...] and there was likely some irritation here. [id number] JACQUE LUGO [facility] [address] [address] 04/15/2024 15:59:22 04/18/2024 07:41:17 Sensorineural hearing loss of bilateral ears 441185225 H90.3 Right Ear:Normal hearing through 1.5K Hz [...] Name 06/15/2024 2 [place] [id number] Matthew L Avila [id number] Matthew Donny Avila Avila 06/15/2024 1 [place] [employer] Matthew Avila Avila [id number] Matthew Donny Avila Avila 06/15/2024 2 [place] [facility] Matthew L Avila Avila [id number] Matthew Donny Avila Avila
--- OUTSIDE RECORDS SUMMARY | 2024-10-31 11:36 | XMS_ITS | Clinical Summary ---
Author Organization [facility] [place] Address [address] [place] [address] Care Team Providers Care Clerk General Name Role Phone Glenn Herman MD Unavailable [phone] Yoandy Tillman MD Primary Care Provider [phone] Edward Handley community recreation coordinator Unavailable Unavailable Jennie Michelle PharmD Unavailable [phone] Allergies Active Allergy Reactions Criticality Noted Date Comments Lisinopril Swelling Medium 11/24/2023 Pt states that his nose swells to more than twice its normal size when he takes Lisinopril, and that he feels congested when this happens. He states that he does not experience swelling in or around his mouth or throat and does not experience difficulty breathing. Medications calcium carbonate 500 mg calcium (1,250 mg) tabletIndication s:Heart transplant recipient (Multi-HCC) Take 1 tablet (1,250 mg) by mouth with breakfast and with evening meal. 180 tablet 3 10/20/ 025 4:43 PM EDT 01/18 Active cholecalciferol, vitamin D3, (Vitamin D-3) 25 MCG (1000 UT) tabletIndication s:Heart transplant recipient (Multi-HCC) Take 1 tablet (1,000 Units) by mouth once daily. 30 tablet 11 025 12:28 PM EDT 01/12 Active pantoprazole (ProtoNix) 40 mg EC tabletIndication s:Heart transplant recipient (Multi-HCC) Take 1 tablet (40 mg) by mouth before breakfast. Do not crush, chew, or split. 30 tablet 11 025 5:39 PM EDT 01/12 Active sulfamethoxazole -trimethoprim (Bactrim DS) 800-160 mg tabletIndication s:Heart transplant recipient (Multi-HCC) Take 1 tablet by mouth once daily. 30 tablet 11 025 5:39 PM EDT 2023 Active aspirin 81 mg chewable tabletIndication s:Heart transplant recipient (Multi-HCC) Chew 1 tablet (81 mg) once daily. 30 tablet 11 025 12:28 PM EDT 01/11 Active alcohol swabs pads, medicatedIndicat ions:Heart transplant recipient (Multi-HCC) Swab prior to testing and insulin administration as directed 300 each 1 024 4:11 PM EST 2023 Active amoxicillin (Amoxil) 500 mg capsule Take 2,000 mg by mouth 1 (one) time if needed (dentist). 2023 Active insulin lispro (HumaLOG) 100 unit/mL injectionIndicat ions:Heart transplant recipient (Multi-HCC) Inject 6 Units under the skin before breakfast AND 12 Units before lunch AND 12 Units before evening meal. 15 mL 1 025 5:38 PM EST 2023 Active Additional Information Patient taking differently: Inject 6 Units under the skin before breakfast AND 6 Units before lunch AND 6 Units before evening meal., Reported on 10/03/2024 pravastatin (Pravachol) 80 mg tabletIndication s:Heart transplant recipient (Multi-HCC) Take 1 tablet (80 mg) by mouth once daily. 30 tablet 11 2024 Active predniSONE (Deltasone) 5 mg tabletIndication s:Heart transplant recipient (Multi-HCC) Take 1 tablet (5 mg) by mouth once daily. 30 tablet 5 06/18/2 025 5:39 PM EDT 12/25 Active insulin glargine (Lantus Solostar U-100 Insulin) 100 unit/mL (3 mL) injection Inject 30 units under the skin every evening. 15 mL 7 5:39 PM EDT 2024 Active Additional Information Patient taking differently: 22 UnitssubcutaneousEvery morning, Takes 22mg every am, Reason: taking 22 units every am, Reported on 10/03/2024 insulin lispro (HumaLOG KwikPen Insulin) 100 unit/mL injection Inject 6 units under the skin with breakfast, 12 units with lunch and 12 units with dinner. max 30 units/24 hours 30 mL 3 4:43 PM EDT 2024 Active Additional Information Patient not taking.Reported on 10/03/2024 levETIRAcetam (Keppra) 750 mg tabletIndication s:Heart transplant recipient (Multi-HCC) Take 1 tablet (750 mg) by mouth twice daily. 60 tablet 2 4:56 PM EDT 12/25 Active pen needle, diabetic (BD Ultra-Fine Mini Pen Needle) 31 gauge x 3/16 needleIndication s:Heart transplant recipient (Multi-HCC) Use with insulin pen as directed 100 each 2 4:43 PM EDT 2024 Active fluticasone (Flonase) 50 mcg/actuation nasal sprayIndications :Chronic cough Administer 1 spray into each nostril once daily. Shake gently. Before first use, prime pump. After use, clean tip and replace cap. 16 g 3 2:56 PM EDT 12/02 Active valGANciclovir (Valcyte) 450 mg tabletIndication s:Other cytomegaloviral diseases (Multi-HCC) Take 1 tablet (450 mg) by mouth twice daily. Do not crush or chew. 180 tablet 2:12 PM EDT 01/02 Active mycophenolate (Cellcept) 500 mg tabletIndication s:Heart transplant recipient (Multi-HCC) Take 1 tablet (500 mg) by mouth twice daily. Take in addition to 250mg cap, total dose 750mg twice daily. 60 tablet 11 10/06 Active mycophenolate (Cellcept) 250 mg capsuleIndicatio ns:Heart transplant recipient (Multi-HCC) Take 1 capsule (250 mg) by mouth twice daily. Take in addition to 500mg tab, total dose 750mg twice daily. 60 capsule 025 2:12 PM EDT 10/06 Active tacrolimus (Prograf) 5 mg capsuleIndicatio ns:Heart transplant recipient (Multi-HCC) Take 1 capsule (5 mg) by mouth twice daily. 60 capsule 025 4:43 PM EDT 10/17 Active mycophenolate (Cellcept) 500 mg tabletIndication s:Heart transplant recipient (Multi-HCC) Take 2 tablets (1,000 mg) by mouth twice daily. 120 tablet 025 5:39 PM EDT 10/06 Discontinued dextromethorphan -guaifenesin (Robitussin-DM) 10-100 mg/5 mL liquidIndication s:Heart transplant recipient (Multi-HCC),Product Tester Fiberglass yasmany cough Take 10 mL by mouth every 12 (twelve) hours for 7 days. 236 mL 10/03 Additional Information Patient not taking.Reason: ran out of medication 1 week ago, Reported on 10/03/2024 tacrolimus (Prograf) 1 mg capsuleIndicatio ns:Heart transplant recipient (Multi-HCC) Take 4 capsules (4 mg) by mouth twice daily. 240 capsule 10/04 Discontinued tacrolimus (Prograf) 1 mg capsuleIndicatio ns:Heart transplant recipient (Multi-HCC) Take 4 capsules (4 mg) by mouth in the morning. 120 capsule 025 2:12 PM EDT 10/17 Discontinued( Dose adjustment) tacrolimus (Prograf) 5 mg capsuleIndicatio ns:Heart transplant recipient (Multi-HCC) Take 1 capsule (5 mg) by mouth in the evening. 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 S/p multiple dilations in the past. Able to pass a 7.0 ETT, but no larger. Decreased functional mobility and endurance 11/06 Non-restorable tooth 11/19/2023 Heart transplant recipient (Multi-HCC) Hyperlipidemia, unspecified 04/06/2022 Type 2 diabetes mellitus wit h circulatory disorder (Multi-HCC) 03/24/2022 Pulmonary nodules Diabetes mellitus (Multi-HCC) Resolved Problems Problem Noted Date Diagnosed Date Resolved Date Heart failure (Multi-HCC) 11/24/2023 Dental caries into pulp 11/19/202301/04 IVY (acute kidney injury) 01/31/2023 Chronic combined systolic an d diastolic heart failure (Multi-HCC) 01/27/2023 02/09/2024 Overview (11/26/2023): Last Assessment & Plan: reports he's up a few pounds from his baseline weight, worsening leg swelling over the last few days. Compliant with Torsemide - taking full dose per 's report Asked patient to call his Triple Drum Operator regarding his increased weight/swelling for further recommendations. Last Assessment & Plan: reports he's up a few pounds from his baseline weight, worsening leg swelling over the last few days. Compliant with Torsemide - taking full dose per 's report Asked patient to call his Triple Drum Operator regarding his increased weight/swelling for further recommendations. Ventricular tachycardia (Multi-HCC) 04/06/2022 02/09/2024 Overview (11/26/2023): Last Assessment & Plan: Prior VT arrest in September. ICD in situ. On low-dose beta-alis. No obstructive CAD on cardiac catheterization in September. Last Assessment & Plan: Prior VT arrest in September. ICD in situ. On low-dose beta-alis. No obstructive CAD on cardiac catheterization in September. Encounters Date Type Department Care Team Description 10/25/2024 Telephone [facility] Infectious Disease [address] [phone] Lena Cortes NP 10/25/2024 Telephone [facility] Infectious Disease [address] [phone] Chi Barton MD req labs orders 10/24/2024 Telephone [facility] Infectious Disease [address] [phone] Lena Cortes NP 10/17/2024 Orders Only [facility] Cardiac Subspecialty [address] [phone] Daniele Barnhart MD 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) 10/11/2024 Telephone [facility] Infectious Disease [address] [phone] Lena Cortes SAFETY FIRE BOSS 10/04/2024 Telephone [facility] Infectious Disease [address] [phone] Lena Cortes NP 10/04/2024 Orders Only [facility] Cardiac Subspecialty [address] [phone] Daniele Barnhart MD Cytomegalovirus infection, unspecified cytomegaloviral infection type (Multi-HCC) 10/03/2024 2:31 PM EDT - 10/03/2024 11:59 PM EDT Hospital Encounter [facility] Radiology [address] [place] [address] Chronic cough Discharge Disposition: Home or self care 10/03/2024 11:00 AM EDT - 10/03/2024 2:30 PM EDT Hospital Encounter [facility] Cardiac Echo [address] [facility] [address] [place] [phone] Cytomegalovirus infection, unspecified cytomegaloviral infection type (Multi-HCC); Heart transplant recipient (Multi-HCC) Discharge Disposition: Home or self care 10/03/2024 9:40 AM EDT Office Visit [facility] Cardiac Subspecialty [address] [phone] Daniele Barnhart MD Heart transplant recipient (Multi-HCC) (Primary Dx); Essential hypertension, benign ; Mixed hyperlipidemia ; Type 2 diabetes mellitus with other specified complication, unspecified whether [facility] insulin use (Multi-HCC); Cytomegalovirus infection, unspecified cytomegaloviral infection type (Multi-HCC) 10/03/2024 9:30 AM EDT Office Visit [facility] Infectious Disease [address] [phone] hCi Barton MD Chronic cough (Primary Dx); Fever, unspecified fever cause; Heart transplant recipient (Multi-HCC); Immunosuppressed status (Multi-HCC); Other cytomegaloviral diseases (Multi-HCC); Weight loss; Preventative health care; Pancytopenia (CMS-HCC) 10/03/2024 Travel 09/29/2024 Telephone [facility] Cardiac Subspecialty [address] [phone] Provider, Generic External Data 09/29/2024 Refill [facility] Cardiac Subspecialty [address] [facility] [address] [place] [phone] Zackery Paulino, ISAURA Cytomegalovirus infection, unspecified cytomegaloviral infection type (Multi-HCC); Heart transplant recipient (Multi-HCC) 09/28/2024 9:30 AM EDT Telephone Visit [facility] Pulmonary [address] [place] [phone] Radhames Espinoza MD Pulmonary sarcoidosis (Multi-HCC) (Primary Dx); Tracheal stenosis; Cardiac sarcoidosis (HHS-HCC) 09/19/2024 Refill [facility] Cardiology [address] [facility] [address] [place] [phone] Pedro Kline MD Heart transplant recipient (Multi-HCC) 09/19/2024 Refill [facility] Cardiology [address] [facility] [address] [place] [phone] Kong Lizarraga MD Heart transplant recipient ([facility]-HCC) 09/19/2024 Telephone [facility] Cardiac Subspecialty [address] [phone] Mychart, Generic Provider 09/14/2024 10:15 AM EDT - 09/14/2024 11:59 PM EDT Hospital Encounter [facility] Pulmonary Function Lab [address] [facility] [address] Room [address] [place] [phone] Mitzi Foster Cytomegalovirus infection, unspecified cytomegaloviral infection type (Multi-HCC); Sarcoidosis; Dyspnea, unspecified Discharge Disposition: Home or self care 09/12/2024 Telephone [facility] Cardiac Subspecialty [address] [phone] Livier Russ MD Abnormal Lab (Elevated Tac level ) 09/10/2024 Telephone [facility] Cardiac Echo [address] [facility] [address] [place] [phone] Aracelis Acosta MD 09/09/2024 Telephone [facility] Cardiac Subspecialty [address] [phone] Bridger Hernandez MD Cough 09/05/2024 11:15 AM EDT Office Visit [facility] Infectious Disease [address] [phone] Donna Sanches MD Congenital cytomegalovirus infection (HHS-HCC) (Primary Dx); Heart transplant infection (Multi-HCC); Lymphopenia 09/05/2024 10:55 AM EDT Office Visit [facility] Cardiac Subspecialty [address] [phone] Bridger Hernandez MD Type 2 diabetes mellitus with other circulatory complication, unspecified whether [facility] insulin use (Multi-HCC) (Primary Dx); Cytomegalovirus infection, unspecified cytomegaloviral infection type (Multi-HCC); Mixed hyperlipidemia ; Heart transplant recipient (Multi-HCC); Sarcoidosis; Immunosuppressed status (Multi-HCC) 09/05/2024 Telephone [facility] Pulmonary [address] [phone] Radhames Espinoza MD Change to telephone 09/05/2024 Travel 08/25/2024 10:00 AM EDT Office Visit [facility] Neurology [address] [place] [address] Percy Kapoor MD Focal epilepsy (Multi-HCC) (Primary Dx); MCI (mild cognitive impairment) 08/25/2024 Travel 08/25/2024 Telephone [facility] Neurology [address] [place] [address] Percy Kapoor MD late to appointment 08/01/2024 11:00 AM EDT Office Visit [facility] Infectious Disease [address] [phone] Chi Barton MD Other cytomegaloviral diseases (Multi-HCC) (Primary Dx); Fever, unspecified fever cause; Chronic cough; Night sweats; 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); Immunosuppressed status (Multi-HCC); Subglottic stenosis; Leukopenia, unspecified type 08/01/2024 10:40 AM EDT Office Visit [facility] Cardiac Subspecialty [address] [facility] [address] [place] [address] Bridger Hernandez MD Tracheal stenosis (Primary Dx); Mixed hyperlipidemia ; Status post transplant, heart (Multi-HCC); Subglottic stenosis; Heart transplant recipient (Multi-HCC); Sarcoidosis; Immunosuppressed status (Multi-HCC); Type 2 diabetes mellitus with other specified complication, unspecified whether [facility] insulin use (Multi-HCC); Other cytomegaloviral diseases (Multi-HCC) 08/01/2024 Travel from Last 3 Months Immunizations Immunization Administration Dates Next Due COVID-19 Pfizer Monovalent 01/10/2021,12/14/2020 Comirnaty COVID-19 Vaccine 12 years + 02/05/2024 Hep B, adult 11/26/2023 Influenza, High-dose Seasona l, Quadrivalent, Preservative Free 01/12/2023 Influenza, trivalent, adjuvanted 12/16/2023 Pfizer COVID-19 Vaccine Biva lent Booster 12+ 02/25/2022 Pneumococcal Conjugate PCV 13 05/30/2021 Pneumococcal Conjugate Pcv 20 01/12/2023 RSV, bivalent, protein subun it RSVpreF, diluent reconstituted, 0.5 mL, PF 11/25/2023 Spikevax COVID-19 Vaccine Formula 12+ (Deferred: Not available from auto heater mechanic - Per pharmacy vaccine is out of stock. MD Martins notified) Tdap 05/30/2021 Zoster, Recombinant 11/26/2023 Social History Tobacco Use Types Packs/Day Years Used Date Smoking Tobacco: Never Passive Smoke Exposure: Never Smokeless Tobacco: Never Tobacco Cessation:Counseling Given: Not Answered Alcohol Use Standard Drinks/Week Comments Not Currently 0 (1 standard drink = 0.6 oz pur e alcohol) AUDIT-C Answer Date Recorded Q1: How often do you have a drink containing alcohol? Never 11/24/2023 Q2: How many drinks containi ng alcohol do you have on a typical day when you are drinking? Patient does not drink Q3: How often do you have si x or more drinks on one occasion? Never 11/24/2023 Overall Financial Resource Strain (CARDIA) Answe r Date Recorded How hard is it for you to pa y for the very basics like food, housing, medical care, and heating? Somewhat hard 11/26/2023 Hunger Vital Sign Answer Date Recorded Within the past 12 months, y ou worried that your food would run out before you got the money to buy more. Never true 11/26/19 24 Ran Out of Food in the Last Year Not on file 11/26/2023 PRAPARE - Transportation Answer Date Re corded In the past 12 months, has l ack of transportation kept you from medical appointments or from getting medications? No 11/05 In the past 12 months, has l ack of transportation kept you from meetings, work, or from getting things needed for daily living? No 11/26/2023 Housing Stability Vital Sign Answer Mo e Recorded Unable to Pay for Housing in the Last Year Not o n file 11/26/2023 Number of Places Lived in the Last Year Not on f ile 11/26/2023 In the last 12 months, was t here a time when you did not have a steady place to sleep or slept in a mcfp (including now)? No 11/26/2023 Sex and Gender Information Value Date Recorded Sex Assigned at Male 11/24/2023 1:58 AM EDT Legal Sex Male 12:45 PM EDT Gender Identity Male 11/24/2023 1:58 AM EDT Sexual Orientation Straight 11/24/2023 1: 58 AM EDT Last Filed Vital Signs Vital Sign Reading Time Taken Comments Blood Pressure 119/71 10/03/2024 12:46 PM EDT Pulse 105 10/03/2024 12:46 PM EDT Temperature 36.9 C (98.5 F) 10/03/2024 12:46 PM EDT Respiratory Rate 16 06/28/2024 10:24 AM EDT Oxygen Saturation 98% 10/03/2024 12:46 PM EDT Inhaled Oxygen Concentration - - Weight 60.8 kg (134 lb) 10/03/2024 12:46 PM EDT Height 172.7 cm (5' 7.99 ) 10/03/2024 12:46 PM E DT Body Mass Index 20.38 10/03/2024 12:46 PM EDT Plan of Treatment Upcoming Encounters Date Type Department Care Team (Late st Contact Info) Description 11/07/2024 12:15 PM EDT Office Visit [facility] Cardiac Subspecialty [address] [facility] [address] [place] [phone] Dena Mitchell NP [address] [place] [phone] 12/28/2024 10:45 AM EDT Appointment [facility] Imaging [address] [place] [phone] 12/28/2024 11:30 AM EDT Office Visit [facility] Pulmonary [address] [facility] [address] [place] [phone] Radhames Espinoza MD [facility] [address] [place] [address] 02/22/2025 2:00 PM EST Office Visit [facility] Neurology [address] [place] [phone] Percy Kapoor MD [facility] [address] [place] [address] Health Maintenance Due Date Last Done Comments CT Colonography 1955 FIT 1955 FOBT 1955 Sigmoidoscopy 1955 Diabetes: Foot Exam 06/18/1965 Diabetes: Retinopathy Screening 06/18/1965 Hepatitis A Vaccines (1 of 2 - Risk 2-dose series) 06/18/1974 Medicare Annual Wellness (AWV) 06/04/2021 Hepatitis B Vaccines (2 of 3 - Risk 3-dose series) 12/24/2023 11/26/2023 Zoster Vaccines (2 of 2) 01/21/2024 11/26/2023 Depression Screening 04/06/2024 COVID-19 Vaccine (5 - Mixed Product risk season) 2024 02/05/2024, 02/25/2022, 02/25/2022, Additional history exists Influenza Vaccine (#1) 2024 12/16/2023, 2022 Diabetes: Hemoglobin A1C 01/26/2025 025, 05/26/2024, 05/26/2024, Additional history exists Diabetes: Urine Protein Screening 10/03/2025 10/03/2024, 11/26/2023, 01/12/2023 High Risk LDL 10/03/2025 10/03/2024, 06/0 05/2024, 08/01/2024, Additional history exists Lipid Panel 10/03/2025 10/03/2024, 06/0 05/2024, 08/01/2024, Additional history exists FIT-DNA 01/21/2026 01/21/2023, 01/04, 01/21/2023 DTaP/Tdap/Td Vaccines (2 - Td or Tdap) 05/30/2031 05/30/2021 Colonoscopy 06/18/2033 2023, 06/04, 2023 Colorectal Cancer Screening 06/18/2033 Pneumococcal Vaccine: 50+ Years Completed 01/12/2023, 05/30/2021 Hepatitis C Screening Completed 01/26/2024 , 11/24/2023, 11/24/2023, Additional history exists HIB Vaccines Aged Out No longer eligi [...] age to complete this topic Medical Devices Implanted Type Area Bed Bug Exterminator Device Identifier Shelf Expiration Date Model / Serial / Lot Production Associate-D [employer] Icd-10/02/2022 Implanted:09/05 (Quantity not on file) CIAIO LUMITE INJECTOR-D ICD Chest [employer] Graft Hemashield Str 10x30 - [id number] Implanted:Qty: 1 on 12/22/2023 at [facility] Graft Right: Axilla GETINGE/MAQUET CARDIOVASCULAR 09/03/2028 [id number] / [id number] / Impella- 024 Implanted:12/05 (Quantity not on file) Impella Heart Procedures Procedure Name Priority Date/Time Associated Diagnosis Comments XR CHEST 2 VIEWS Routine 10/03/2024 2:53 PM EDT Chronic cough IGG Routine 10/03/2024 2:15 PM EDT ALLOMAP HEART STAT 10/03/2024 2:15 PM EDT Cytomegalovirus infection, unspecified cytomegaloviral infection type (Multi-HCC) ALLOSURE HEART STAT 10/03/2024 2:15 PM EDT Cytomegalovirus infection, unspecified cytomegaloviral infection type (Multi-HCC) HEARTCARE STAT 10/03/2024 2:15 PM EDT Cytomegalovirus infection, unspecified cytomegaloviral infection type (Multi-HCC) CMV DNA, QUANTITATIVE, RT-PCR STAT 10/03/2024 2:15 PM EDT Cytomegalovirus infection, unspecified cytomegaloviral infection type (Multi-HCC) CYSTATIN C WITH EGFR STAT 10/03/2024 2:15 PM EDT Cytomegalovirus infection, unspecified cytomegaloviral infection type (Multi-HCC) TACROLIMUS LEVEL STAT 10/03/2024 2:15 PM EDT Cytomegalovirus infection, unspecified cytomegaloviral infection type (Multi-HCC) HEPATIC FUNCTION PANEL STAT 10/03/2024 2:15 PM EDT Cytomegalovirus infection, unspecified cytomegaloviral infection type (Multi-HCC) URIC ACID STAT 10/03/2024 2:15 PM EDT Cytomegalovirus infection, unspecified cytomegaloviral infection type (Multi-HCC) LIPID PANEL STAT 10/03/2024 2:15 PM EDT Cytomegalovirus infection, unspecified cytomegaloviral infection type (Multi-HCC) Mixed hyperlipidemia CK STAT 10/03/2024 2:15 PM EDT Cytomegalovirus infection, unspecified cytomegaloviral infection type (Multi-HCC) LDH STAT 10/03/2024 2:15 PM EDT Cytomegalovirus infection, unspecified cytomegaloviral infection type (Multi-HCC) PHOSPHORUS STAT 10/03/2024 2:15 PM EDT Cytomegalovirus infection, unspecified cytomegaloviral infection type (Multi-HCC) MAGNESIUM STAT 10/03/2024 2:15 PM EDT Cytomegalovirus infection, unspecified cytomegaloviral infection type (Multi-HCC) COMPREHENSIVE METABOLIC PANEL STAT 10/03/2024 2:15 PM EDT Cytomegalovirus infection, unspecified cytomegaloviral infection type (Multi-HCC) CBC W/DIFF STAT 10/03/2024 2:15 PM EDT Cytomegalovirus infection, unspecified cytomegaloviral infection type (Multi-HCC) CMV DNA, QUANTITATIVE, RT-PCR Routine 10/03/2024 2:13 PM EDT Heart transplant infection (Multi-HCC) TTE COMPLETE 2D W/ SPECTRAL AND COLOR DOPPLER (39070) Routine 10/03/2024 11:42 AM EDT Heart transplant recipient (Multi-HCC) TACROLIMUS LEVEL Routine 09/14/2024 12:5 0 PM EDT Heart transplant recipient (Multi-HCC) CBC W/DIFF Routine 09/14/2024 12:50 PM EDT Heart transplant recipient (Multi-HCC) COMPREHENSIVE METABOLIC PANEL Routine 09/14/2024 12:50 PM EDT Heart transplant recipient (Multi-HCC) CA PULMONARY STRESS TESTING Routine 09/14/2024 11:20 AM EDT Sarcoidosis Dyspnea, unspecified ALLOMAP HEART STAT 09/05/2024 11:08 AM EDT Cytomegalovirus infection, unspecified cytomegaloviral infection type (Multi-HCC) ALLOSURE HEART STAT 09/05/2024 11:08 AM EDT Cytomegalovirus infection, unspecified cytomegaloviral infection type (Multi-HCC) HEARTCARE STAT 09/05/2024 11:08 AM EDT Cytomegalovirus infection, unspecified cytomegaloviral infection type (Multi-HCC) CMV DNA, QUANTITATIVE, RT-PCR Routine 09/05/2024 11:08 AM EDT Heart transplant infection (Multi-HCC) CMV DNA, QUANTITATIVE, RT-PCR STAT 09/05/2024 11:07 AM EDT Cytomegalovirus infection, unspecified cytomegaloviral infection type (Multi-HCC) CYSTATIN C WITH EGFR STAT 09/05/2024 11:07 AM EDT Cytomegalovirus infection, unspecified cytomegaloviral infection type (Multi-HCC) TACROLIMUS LEVEL STAT 09/05/2024 11:0 7 AM EDT Cytomegalovirus infection, unspecified cytomegaloviral infection type (Multi-HCC) HEPATIC FUNCTION PANEL STAT 09/05/2024 11:07 AM EDT Cytomegalovirus infection, unspecified cytomegaloviral infection type (Multi-HCC) URIC ACID STAT 09/05/2024 11:07 AM EDT Cytomegalovirus infection, unspecified cytomegaloviral infection type (Multi-HCC) LIPID PANEL STAT 09/05/2024 11:07 AM EDT Cytomegalovirus infection, unspecified cytomegaloviral infection type (Multi-HCC) Mixed hyperlipidemia CK STAT 09/05/2024 11:07 AM EDT Cytomegalovirus infection, unspecified cytomegaloviral infection type (Multi-HCC) LDH STAT 09/05/2024 11:07 AM EDT Cytomegalovirus infection, unspecified cytomegaloviral infection type (Multi-HCC) PHOSPHORUS STAT 09/05/2024 11:07 AM EDT Cytomegalovirus infection, unspecified cytomegaloviral infection type (Multi-HCC) MAGNESIUM STAT 09/05/2024 11:07 AM EDT Cytomegalovirus infection, unspecified cytomegaloviral infection type (Multi-HCC) COMPREHENSIVE METABOLIC PANEL STAT 09/05/2024 11:07 AM EDT Cytomegalovirus infection, unspecified cytomegaloviral infection type (Multi-HCC) CBC W/DIFF STAT 09/05/2024 11:07 AM EDT Cytomegalovirus infection, unspecified cytomegaloviral infection type (Multi-HCC) FOLATE Routine 08/25/2024 11:37 AM EDT MCI (mild cognitive impairment) VITAMIN B12 WITH REFLEX TO MMA Routine 08/25/2024 11:37 AM EDT MCI (mild cognitive impairment) SANDY ROJO VIRUS DNA PCR, QUANTITATIVE Routine 08/01/2024 2:43 PM EDT Night sweats BLOOD CULTURE Routine 08/01/2024 2:43 PM EDT Night sweats CMV DNA, QUANTITATIVE, RT-PCR Routine 08/01/2024 2:40 PM EDT Heart transplant infection (Multi-HCC) HLA POST TX ANTIBODY ID (DSA), CLASS 1 AND CLASS 2 STAT 08/01/2024 2:39 PM EDT Status post transplant, heart (Multi-HCC) DRAW ONLY: [facility] HLA 16 (POST TX AB ID (DSA), CLASS 1+2) STAT 08/01/2024 2:38 PM EDT Status post transplant, heart (Multi-HCC) CMV DNA, QUANTITATIVE, RT-PCR STAT 08/01/2024 2:38 PM EDT Status post transplant, heart (Multi-HCC) CYSTATIN C WITH EGFR STAT 08/01/2024 2:38 PM EDT Status post transplant, heart (Multi-HCC) TACROLIMUS LEVEL STAT 08/01/2024 2:38 PM EDT Status post transplant, heart (Multi-HCC) HEPATIC FUNCTION PANEL STAT 08/01/2024 2:38 PM EDT Status post transplant, heart (Multi-HCC) URIC ACID STAT 08/01/2024 2:38 PM EDT Status post transplant, heart (Multi-HCC) LIPID PANEL STAT 08/01/2024 2:38 PM EDT Mixed hyperlipidemia Status post transplant, heart (Multi-HCC) CK STAT 08/01/2024 2:38 PM EDT Status post transplant, heart (Multi-HCC) LDH STAT 08/01/2024 2:38 PM EDT Status post transplant, heart (Multi-HCC) PHOSPHORUS STAT 08/01/2024 2:38 PM EDT Status post transplant, heart (Multi-HCC) MAGNESIUM STAT 08/01/2024 2:38 PM EDT Status post transplant, heart (Multi-HCC) COMPREHENSIVE METABOLIC PANEL STAT 08/01/2024 2:38 PM EDT Status post transplant, heart (Multi-HCC) CBC W/DIFF STAT 08/01/2024 2:38 PM EDT Status post transplant, heart (Multi-HCC) ALLOMAP HEART STAT 08/01/2024 2:36 PM EDT Status post transplant, heart (Multi-HCC) ALLOSURE HEART STAT 08/01/2024 2:36 PM EDT Status post transplant, heart (Multi-HCC) HEARTCARE STAT 08/01/2024 2:36 PM EDT Status post transplant, heart (Multi-HCC) HCV RNA, QUANTITATIVE, PCR (MONITORING) Routine 01/26/2024 10:30 AM EDT ALBUMIN, URINE, RANDOM (INCLUDING CREATININE) Routine 11/26/2023 1:50 PM EDT HEMOGLOBIN A1C Routine 11/24/2023 12:42 AM EDT from Last 3 Months or Most Recently Relevant to Health Maintenance Results * XR CHEST 2 VIEWS (10/03/2024 2:53 PM EDT) Anatomical Region Laterality Modality Chest Computed Radiogr aphy 10/03/2024 3:51 PM EDT Impressions 10/03/2024 4:00 PM EDT No acute pulmonary abnormality. APPROVED BY STAFF RADIOLOGIST: Luisito Emmanuel MD 10/03/2024 4:00 PM EDT Narrative 10/03/2024 4:00 PM EDT NAME: MATTHEW AVILA : 1955 AGE: 69 years GENDER: Male ORD PHYS: LENA M ZOHAIB LOCATION: [facility] 10/03/2024 2:53 PM EDT IMG36 (XR CHEST 2 VIEWS) [id number] EXAMINATION: XR CHEST 2 VIEWS HISTORY: cough TECHNIQUE: Frontal and lateral chest radiograph with dual energy technique. COMPARISON: Chest radiograph 06/28/2024. FINDINGS: Exam Quality: Adequate. Lines/tubes: No lines or tubes. Median sternotomy wires. Right upper chest clips. Heart and mediastinum: Unremarkable. Lungs and pleura: Lungs are clear. No pleural effusions. No pneumothorax. Bones: No acute fracture. Upper abdomen: Visualized upper abdomen is within normal limits. Procedure Note Luisito Emmanuel MD - 10/03/2024 NAME: MATTHEW AVILA : 1955 AGE: 69 years GENDER: Male ORD PHYS: LENA Barron ZOHAIB LOCATION: [facility] 10/03/2024 2:53 PM EDT IMG36 (XR CHEST 2 VIEWS) [id number] EXAMINATION: XR CHEST 2 VIEWS HISTORY: cough TECHNIQUE: Frontal and lateral chest radiograph with dual energy technique. COMPARISON: Chest radiograph 06/28/2024. FINDINGS: Exam Quality: Adequate. Lines/tubes: No lines or tubes. Median sternotomy wires. Right upper chest clips. Heart and mediastinum: Unremarkable. Lungs and pleura: Lungs are clear. No pleural effusions. No pneumothorax. Bones: No acute fracture. Upper abdomen: Visualized upper abdomen is within normal limits. IMPRESSION: No acute pulmonary abnormality. APPROVED BY STAFF RADIOLOGIST: Luisito Emmanuel MD 10/03/2024 4:00 PM EDT Lena Cortes SAFETY FIRE BOSS IMG XR PROCEDURES Final Result * ALLOMAP HEART (10/03/2024 2:15 PM EDT) Only the most recent of3 resultswithin the time period is included. ALLOMAP SCORE - HEART 34 10/04/2024 11:45 PM EDT [facility] ([facility]) 95% CONFIDENCE INTERVAL 95% CI:31.9-3 5.9 10/04/2024 11:45 PM EDT [facility] ([facility]) NEGATIVE PREDICTIVE VALUE 98.9% 10/04/2024 11:45 PM EDT [facility] ([facility]) POSITIVE PREDICTIVE VALUE 4.1% 10/04/2024 11:45 PM EDT [facility] ([facility]) TIME POST TX 0y 9m 7d 10/04/2024 11:45 PM EDT [email or web address] ([facility]) TEST COMMENTS ([facility]) <None Specified > 10/04/2024 11:45 PM EDT [facility] ([facility]) NOTES ([facility]) See Note 10/04/2024 11:45 PM EDT [facility] ([facility]) Comment: Interpretation of AlloMap score should be made using the information available at the following link: [email or web address] AlloMap testing performed at [facility]. (CLIA No: [id number], CAP No: [id number]) Slipcover Cutter: Axel Cartagena M.D. These AlloMap test results are displayed here for your convenience. The pdf AlloMap report is the official report. The following data chamorro on the Results Details page are intentionally left empty as they are not applicable to AlloMap testing: Abnormal Units TX DATE 4 10/04/2024 11:45 PM EDT [facility] ([facility]) [facility] ORDER ID [id number] 10/04/2024 11:45 PM EDT [facility] ([facility]) NESHANIC STATION ORDER ID [id number] 10/04/2024 11:45 PM EDT [facility] ([facility]) WP ORDER ID <None Specified > 10/04/2024 11:45 PM EDT [facility] ([facility]) Blood Venous blood specimen / Unknown Venipuncture / Unknown 10/03/2024 2:15 PM EDT 10/03/2024 2:46 PM EDT Daniele Barnhart MD LAB BLOOD ORDERABLES Final Res ult [facility] ([facility]) [address], [place] [id number] * ALLOSURE HEART (10/03/2024 2:15 PM EDT) Only the most recent of3 resultswithin the time period is included. ALLOSURE SCORE < 0.04 % 10/05/2024 9:26 PM EDT [facility] ([facility]) TIME POST TX 0y 9m 7d 10/05/2024 9:26 PM EDT [facility] ([facility]) TEST COMMENTS (ASHK) <None Specified> 10/05/2024 9:26 PM EDT [facility] ([facility]) NOTES (ASHK) See Note 10/05/2024 9:26 PM EDT [facility] ([facility]) Comment: INTERPRETATION OF RESULTS Instructions for Interpreting HeartCare: For patients >= 55 days post-transplant and >= 15 years old: An AlloMap >=30 (55 days to 6 months) or >=34 (>6 months) AND an AlloSure >=0.2% is associated with an increased risk of detecting acute cellular rejection on a biopsy with a positive likelihood ratio of 3.9.(1) Instructions for Interpreting AlloSure Heart: AlloSure Heart measures the percent of donor-derived cell-free DNA (dd-cfDNA) in the total cell-free DNA present in heart transplant recipients. When interpreting AlloSure Heart: - A result >=0.20% dd-cfDNA is associated with a higher risk of acute cellular rejection and/or antibody mediated rejection with a positive likelihood ratio of approximately 2.1-2.3 (2)(3) - A result <0.20% dd-cfDNA is associated with a lower risk of acute cellular rejection and/or antibody mediated rejection. (2)(3) See the HeartCare interpretation guide at [email or web address] for information on HeartCare, AlloSure Heart and AlloMap Heart performance. See the AlloMap report for AlloMap and AlloMap Variability result interpretation. Clinical validity of AlloSure Heart was established in heart transplant recipients at least 14 days post-transplant. AlloSure Heart should be interpreted in the context of clinical findings and relevant patient history. AlloSure Heart is not intended for recipients of multi-organ transplants, recipients who are , or recipients of allogeneic bone marrow transplants. Transfusion of blood components containing white blood cells in the 30 days prior to blood draw may lead to an aberrant result. Endomyocardial biopsies performed in the 24 hours prior to AlloSure Heart specimen collection may elevate dd-cfDNA. For more information about AlloSure Heart, please visit [employer] [facility] [email or web address]. (1)Nik et al., J Heart Lung Transplant 2023; (2)Nik et al., Am J Transplant 2019; (3)Data on file for patients <15 years old. The AlloSure Heart Donor-Derived Cell-Free DNA Test was developed and its performance characteristics were determined by the [facility]. The test has not been cleared or approved by the U.S. Food and Drug Administration. The laboratory is certified under the Clinical Laboratory Improvement Amendments of 1988 (CLIA '88) and accredited by the [employer] [employer] (CAP) as qualified to perform high complexity clinical laboratory testing. The contents of this report are confidential and intended solely for use by authorized personnel. AlloSure testing performed at [facility]. [address] [place] [id number] (CLIA No: [id number], CAP No: [id number]) Slipcover Cutter: Axel Cartagena M.D. TRANSPL[facility]ED [facility] Heart 2024 9:26 PM EDT [facility] ([facility]) CLIENT SPECIMEN ID <None Specified> 10/05/2024 9:26 PM EDT [facility] ([facility]) TX DATE 12/28/2023 10/05/2024 9:26 PM EDT [facility] ([facility]) DONOR RELATION Unrelated 10/05/2024 9:26 PM EDT [facility] ([facility]) [facility] ORDER ID [id number] 10/05/2024 9:26 PM EDT [facility] CENTER ORDER ID [id number] 10/05/2024 9:26 PM EDT [facility] ([facility]) WP ORDER ID <None Specified> 10/05/2024 9:26 PM EDT [facility] ([facility]) Blood Venous blood specimen / Unknown Venipuncture / Unknown 10/03/2024 2:15 PM EDT 10/03/2024 2:46 PM EDT us Daniele Barnhart MD LAB BLOOD ORDERABLES Final Res ult [facility] ([facility]) [address], [place] [id number] * (ABNORMAL) Cystatin C with eGFR (10/03/2024 2:15 PM EDT) Only the most recent of3 resultswithin the time period is included. Cystatin C 1.32(H) 0.72 - 1.16 mg/L [facility] 1 eGFRcys 52(L) >59 mL/min/1.73 [facility] 1 Blood Venous blood specimen / Unknown 10/03/2024 2:15 PM EDT 10/03/2024 Narrative [facility] - 10/04/2024 6:15 AM EDT Performed at: [address] [id number] Slipcover Cutter: Iram Zambrano MD, Phone: [phone] us Daniele Barnhart MD LAB BLOOD ORDERABLES Final Res ult [facility] [address] [place] [address], [facility] * Tacrolimus level (10/03/2024 2:15 PM EDT) Only the most recent of4 resultswithin the time period is included. Pathologist [facility] Tacrolimus, LC-MS/MS 4.0 3.0 - 20.0 ng/mL [facility] Comment: Performed by LC-MS/MS. Reference intervals are based on trough collection. Optimal therapeutic ranges depend on time post-transplant, dosing regimen, organ type, and concomitant immunosuppression therapy. Results should be interpreted in conjunction with physical signs/symptoms of rejection/toxicity. This test was developed and its performance characteristics determined by [facility]. It has not been cleared or approved by the FDA. The laboratory is regulated under CLIA as qualified to perform high-complexity testing. This test is used for clinical purposes. It should not be regarded as investigational or for research. Time of last dose See Comment Date of last dose See Comment Blood Venous blood specimen / Unknown 10/03/2024 2:15 PM EDT 10/03/2024 Narrative [facility] - 10/04/2024 12:15 PM EDT Test(s) [id number] ([id number]), Blood was developed and its performance characteristics determined by [facility]. It has not been cleared or approved by the Food and Drug Administration. Performed at: 01 - [address] [id number] Slipcover Cutter: Jim Henning [facility], Phone: [phone] Daniele Barnhart MD LAB BLOOD ORDERABLES Final Res ult [facility] [address] [place] [address], [facility] 1 * (ABNORMAL) CMV DNA, Quantitative, RT-PCR (10/03/2024 2:15 PM EDT) Only the most recent of6 resultswithin the time period is included. CMV Qn DNA PCR 5,690(H) Not Detected IU/mL [facility] 1 Comment: Client Requested Flag DETECTED CMV DNA Viral Load, Interp Detected A REFERENCE RANGE: Not Detected log10 CMV Qn DNA 3.75(H) Not Detected log IU/mL [facility] 1 Comment: This test was performed using the [employer] m CMV DNA assay, performed on the [employer] m instrument Blood Venous blood specimen / Unknown 10/03/2024 2:15 PM EDT 10/03/2024 Narrative [facility] - 10/04/2024 1:45 PM EDT Performed at: [address] [place], [place] [address], [place] [id number] Slipcover Cutter: Jim Henning [facility], Phone: [phone] us Daniele Barnhart MD LAB BLOOD ORDERABLES Final Res ult [facility] [address] [place] [address], [facility] 1 * (ABNORMAL) CBC and differential (10/03/2024 2:15 PM EDT) Only the most recent of4 resultswithin the time period is included. Pathologist [facility] WBC 3.0(L) 4.0 - 11.0 K/uL [facility] 1 RBC 3.52(L) 4.20 - 5.90 M/uL [facility] 1 Hgb 10.1(L) 13.0 - 17.5 g/dL [facility] 1 Hct 30.9(L) 37.0 - 53.0 % [facility] 1 MCV 87.8 80.0 - 100.0 fL [facility] 1 MCH 28.7 26.0 - 34.0 pg [facility] 1 MCHC 32.7 31.0 - 37.0 g/dL [facility] 1 RDW 13.2 11.5 - 14.5 % [facility] 1 Comment:RDW-SD 42.2 fL 35.0- 51.0 Platelets 123(L) 150 - 400 K/uL [facility] 1 Comment:MPV 10.6 fL 9.1-12.4 Neutrophils 78.2 % [facility] 1 Lymphs 7.4 % [facility] 1 Monocytes 12.1 % [facility] 1 Eos 1.0 % [facility] 1 Basos 0.3 % [facility] 1 Neutrophils Abs 2.33 1.50 - 7.95 K/uL [facility] 1 Lymphs Abs 0.22(L) 0.70 - 4.00 K/uL [facility] 1 MonocytesAbs 0.36(L) 0.38 - 0.83 K/uL [facility] 1 Eos Abs 0.03 0.00 - 0.50 K/uL [facility] 1 Baso Abs 0.01 0.00 - 0.22 K/uL [facility] 1 Immature Granulocytes 1.0 % [facility] 1 Immature Grans Abs 0.03 0.00 - 0.10 K/uL [facility] 1 NRBC 0.0 0.0 - 0.0 % [facility] 1 Comment:NRBC Absolute 0.00 K/uL 0.00-2.00 Blood Venous blood specimen / Unknown 10/03/2024 2:15 PM EDT 10/03/2024 Narrative [facility] - 10/03/2024 3:45 PM EDT Performed at: [address] [place] [id number] Slipcover Cutter: Jim Henning [facility], Phone: [phone] Daniele Barnhart MD LAB BLOOD ORDERABLES Final Res ult Performing Organization Address City/State/[facility] Co de Phone Number [facility] [address] [place] [address], [facility] 1 * Uric Acid (10/03/2024 2:15 PM EDT) Only the most recent of3 resultswithin the time period is included. Uric Acid 5.3 2.6 - 8.0 mg/dL [facility] 1 Comment: Although the reference interval for men extends up to 8.0 mg/dL, patients with gout may benefit from uric acid levels <6.0 mg/dL. Blood Venous blood specimen / Unknown 10/03/2024 2:15 PM EDT 10/03/2024 Narrative [facility] - 10/03/2024 4:15 PM EDT Performed at: [address] [place] [id number] Slipcover Cutter: Jim Henning [facility], Phone: [phone] Daniele Barnhart MD LAB BLOOD ORDERABLES Final Res ult Performing Organization Address City/[facility] Co de Phone Number [facility] [address] [place] [address], [facility] 1 * Phosphorus (10/03/2024 2:15 PM EDT) Only the most recent of3 resultswithin the time period is included. Phosphorus 3.1 2.4 - 4.9 mg/dL [facility] 1 Blood Venous blood specimen / Unknown 10/03/2024 2:15 PM EDT 10/03/2024 Narrative [facility] - 10/03/2024 4:15 PM EDT Performed at: [address] [place] [id number] Slipcover Cutter: Jim Henning [facility], Phone: [phone] Daniele Barnhart MD LAB BLOOD ORDERABLES Final Res ult Performing Organization Address [facility] Co de Phone Number [facility] [address] [place] [address], [facility] 1 * Magnesium (10/03/2024 2:15 PM EDT) Only the most recent of3 resultswithin the time period is included. Magnesium 1.9 1.6 - 2.6 mg/dL [facility] 1 Blood Venous blood specimen / Unknown 10/03/2024 2:15 PM EDT 10/03/2024 Narrative [facility] - 10/03/2024 4:15 PM EDT Performed at: [address] [place] [id number] Slipcover Cutter: Jim Henning [facility], Phone: [phone] Daniele Barnhart MD LAB BLOOD ORDERABLES Final Res ult Performing Organization Address [facility] Co de Phone Number [facility] [address] [place] [address], [facility] 1 * (ABNORMAL) Lactate dehydrogenase (10/03/2024 2:15 PM EDT) Only the most recent of3 resultswithin the time period is included. LDH 396(H) 110 - 250 U/L [facility] 1 Blood Venous blood specimen / Unknown 10/03/2024 2:15 PM EDT 10/03/2024 Narrative [facility] - 10/03/2024 4:15 PM EDT Performed at: [address] [place] [address] Slipcover Cutter: Jim Henning [facility], Phone: [phone] us Daniele Barnhart MD LAB BLOOD ORDERABLES Final Res ult Performing Organization Address [facility] de Phone Number [facility] [address] [place] [address], [facility] 1 * IgG (10/03/2024 2:15 PM EDT) Pathologist [facility] IgG 794 700 - 1,600 mg/dL [facility] 1 10/03/2024 2:15 PM EDT 10/03/2024 Narrative [facility] - 10/04/2024 5:15 PM EDT Performed at: [address] [place] [address] Slipcover Cutter: Jim Henning [facility], Phone: [phone] us Daniele Barnhart MD LAB BLOOD ORDERABLES Final Res ult Performing Organization Address City/[facility] Co de Phone Number [facility] [address] [place] [address], [facility] * CK (aka CPK) (10/03/2024 2:15 PM EDT) Only the most recent of3 resultswithin the time period is included. CK Total 41 41 - 331 U/L [facility] 1 Blood Venous blood specimen / Unknown 10/03/2024 2:15 PM EDT 10/03/2024 Narrative [facility] - 10/04/2024 7:45 AM EDT Performed at: [facility] [id number] Slipcover Cutter: Iram Zambrano MD, Phone: [phone] Daniele Barnhart MD LAB BLOOD ORDERABLES Final Res ult Performing Organization Address [facility] de Phone Number [facility] [address] [place] [address], [facility] 1 * Hepatic function panel (10/03/2024 2:15 PM EDT) Only the most recent of3 resultswithin the time period is included. Bilirubin, Direct 0.3 0.0 - 0.5 mg/dL [facility] 1 Blood Venous blood specimen / Unknown 10/03/2024 2:15 PM EDT 10/03/2024 Narrative [facility] - 10/03/2024 4:15 PM EDT Performed at: [address] [id number] Slipcover Cutter: Jim Henning [facility], Phone: [phone] Daniele Barnhart MD LAB BLOOD ORDERABLES Final Res ult Performing Organization Address [facility] de Phone Number [facility] [address] [place] [address], [facility] 1 * (ABNORMAL) Lipid panel (10/03/2024 2:15 PM EDT) Only the most recent of3 resultswithin the time period is included. Cholesterol 133 100 - 199 mg/dL [facility] 1 Triglycerides 216(H) 0 - 149 mg/dL [facility] 1 HDL Cholesterol 28(L) >39 mg/dL [facility] 1 VLDLc Calc 36 5 - 40 mg/dL [facility] 1 LDLc Calc (NIH) 69 0 - 99 mg/dL [facility] 1 Non-HDL Chol 105 0 - 129 mg/dL [facility] 1 Blood Venous blood specimen / Unknown 10/03/2024 2:15 PM EDT 10/03/2024 Narrative [facility] - 10/04/2024 8:15 AM EDT Performed at: - [facility] [address] [id number] Slipcover Cutter: Iram Zambrano MD, Phone: [phone] Daniele Barnhart MD LAB BLOOD ORDERABLES Final Res ult [facility] [address] [place] [address], [facility] * Comprehensive metabolic panel (10/03/2024 2:15 PM EDT) Only the most recent of4 resultswithin the time period is included. [facility] Glucose 122 70 - 139 mg/dL [facility] 1 Comment:Fasting? Unknown BUN 19 6 - 24 mg/dL [facility] 1 Creat 1.20 0.55 - 1.30 mg/dL [facility] 1 eGFR 65 >=60 mL/min/1.7 3m*2 [facility] 1 Comment:Calculated using CKD -EPI 2020 creatinine equation. Sodium 141 135 - 146 mmol/L [facility] 1 Potassium 4.2 3.6 - 5.2 mmol/L [facility] 1 Chloride 104 98 - 110 mmol/L [facility] 1 Anion Gap 12 3 - 14 mmol/L [facility] 1 Carbon Dioxide 25 20 - 32 mmol/L [facility] 1 Calcium 9.9 8.5 - 10.5 mg/dL [facility] 1 Protein Total 7.5 6.0 - 8.4 g/dL [facility] 1 Albumin 4.7 3.2 - 5.0 g/dL [facility] 1 Bili Total 0.6 0.2 - 1.2 mg/dL [facility] 1 Alk Phosphatase 53 30 - 130 U/L [facility] 1 AST 29 6 - 42 U/L [facility] 1 ALT 18 0 - 55 U/L [facility] 1 Blood Venous blood specimen / Unknown 10/03/2024 2:15 PM EDT 10/03/2024 Narrative [facility] - 10/03/2024 4:15 PM EDT Performed at: [place] [address], [place], [place] [id number] Slipcover Cutter: Jim Henning [facility], Phone: [phone] us Daniele Barnhart MD LAB BLOOD ORDERABLES Final Res ult [facility] [address] [place] [address], [facility] * TTE COMPLETE 2D W/ SPECTRAL AND COLOR DOPPLER (29612) (10/03/2024 11:42 AM EDT) Anatomical Region Laterality Modality Other 10/03/2024 11:1 6 AM EDT Narrative 10/03/2024 4:50 PM EDT Cardiovascular Imaging Hemodynamic Laboratory [address] [place] [address] Transthoracic Echocardiogram Name: MARGARITA AVILAMATTHEW Study Date: 10/03/2024 11:16 AM : 1955 Gender: Male Age: 69 yrs Ethnicity: OTHER Patient Location: [facility] Referring Physician: BRIDGER HERNANDEZ Performed By: Jewell Treviño Ordering Physician: BRIDGER HERNANDEZ Reason For Study: cardiac transplantation Height: 68 in Weight: 137 lb BSA: 1.7 m2 BP: 117/73 mmHg CPT/Quality/Location Complete 2D TTE with spectral and color Doppler (12735). Location performed: Department. [facility]Mode/2D Measurements & Calculations IVSd: 0.90 cm LVIDd: 4.0 cm Ao root diam: 2.9 cm LVIDs: 2.7 cm Ao root area: 6.6 cm2 LVPWd: 0.80 cm LA dimension: 4.3 cm asc Aorta Diam: 3.1 cm LVOT diam: 1.9 cm EDV(MOD-sp4): 78.7 ml EF(MOD-sp4): 66.2 % ESV(MOD-sp4): 26.6 ml SV(MOD-sp4): 52.1 ml LAV(MOD-sp4): 52.7 ml Time Measurements Aortic R-R: 0.59 sec Aortic HR: 101.0 BPM Doppler Measurements & Calculations MV A dur: 0.05 sec MV P1/2t max bipin: 127.6 cm/sec MV E max bipin: 96.7 cm/sec MV P1/2t: 35.2 msec MV A max bipin: 76.4 cm/sec MV E/A: 1.3 MV dec slope: 1062 cm/sec2 Ao V2 max: 103.8 cm/sec Ao max P.3 mmHg Ao V2 mean: 68.4 cm/sec LV V1 max: 96.1 cm/sec Ao mean P.2 mmHg LV V1 mean: 66.9 cm/sec Ao V2 VTI: 16.1 cm LV V1 VTI: 16.0 cm Lat Peak E' Bipin: 13.4 cm/sec CO(LVOT): 4.6 l/min Med Peak E' Bipin: 9.7 cm/sec SV(LVOT): 45.4 ml TR max bipin: 217.2 cm/sec PA V2 max: 80.1 cm/sec TR max P.5 mmHg PA max P.6 mmHg RVSP(TR): 22.5 mmHg RAP systole: 3.0 mmHg E' av.5 cm/sec E/E': 8.6 E/E' lat: 7.2 E/E' med: 10.0 Tricuspid Annular Peak S': 14.5 cm/sec Left Ventricle The left ventricle is normal in size. There is normal left ventricular wall thickness. Left ventricular systolic function is normal. Ejection Fraction = 60-65%. A full diastolic function study was performed but is nondiagnostic. No regional wall motion abnormalities noted. Right Ventricle The right ventricle is normal size. The right ventricular systolic function is normal. 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 Right atrial size is normal. The inferior vena cava is normal size with > 50% respirophasic variation, consistent with normal right atrial pressure. There is no Color Doppler evidence for an atrial septal defect. Mitral Valve The mitral valve is normal in structure. There is no mitral valve stenosis. There is mild mitral regurgitation. Tricuspid Valve The tricuspid valve is normal in structure. There is no tricuspid stenosis. There is mild tricuspid regurgitation. Right ventricular systolic pressure is normal. Aortic Valve The aortic valve is normal in structure. The aortic valve is trileaflet. No hemodynamically significant valvular aortic stenosis. No aortic regurgitation is present. Pulmonic Valve The pulmonic valve is not well visualized. There is no pulmonic valvular stenosis. Trace pulmonic valvular regurgitation. Great Vessels The aortic root is normal size. The ascending aorta is normal size. Pericardium/Pleural There is no pericardial effusion. Interpretation Summary The study was technically adequate. Please see full report for findings. Compared to prior study from 04/01/24, there is no significant change. Electronically signed by:Steven Peña MD 10/03/2024 04:50 PM Procedure Note Steven Peña MD - 10/03/2024 [facility] [address] [place] [address] TransthoracicEchocardiogram Name: MATTHEW TORO Study Date: :16 AM : 1955 Gender: Male Age: 69 yrs Ethnicity: OTHER Patient Location: [facility] Referring Physician: BRIDGER HERNANDEZ Performed By: Jewell Treviño Ordering Physician: BRIDGER HERNANDEZ Reason For Study: cardiac transplantation Height: 68 in Weight: 137 lb BSA: 1.7 m2 BP:117/73 mmHg CPT/Quality/Location Complete 2D TTE with spectral and color Doppler (25708). Locationperformed: Department. MMode/2D Measurements & Calculations IVSd: 0.90 cm LVIDd: 4.0 cm Ao rootdiam: 2.9 cm LVIDs: 2.7 cm Ao rootarea: 6.6 cm2 LVPWd: 0.80 cm LAdimension: 4.3 cm asc Aorta Diam: 3.1 cm LVOTdiam: 1.9 cm EDV(MOD-sp4): 78.7 ml EF(MOD-sp4): 66.2 %ESV(MOD-sp4): 26.6 ml SV(MOD-sp4): 52.1 mlLAV(MOD-sp4): 52.7 ml Time Measurements Aortic R-R: 0.59 sec Aortic HR: 101.0 BPM Doppler Measurements & Calculations MV A dur: 0.05 sec MV P1/2tmax bipin: 127.6 cm/sec MV E max bipin: 96.7 cm/sec MV P1/2t:35.2 msec MV A max bipin: 76.4 cm/sec MV E/A: 1.3 MV decslope: 1062 cm/sec2 Ao V2 max: 103.8 cm/sec Ao max P.3 mmHg Ao V2 mean: 68.4 cm/sec LV V1max: 96.1 cm/sec Ao mean P.2 mmHg LV V1mean: 66.9 cm/sec Ao V2 VTI: 16.1 cm LV V1VTI: 16.0 cm Lat Peak E' Bipin: 13.4 cm/sec CO(LVOT):4.6 l/min Med Peak E' Bipin: 9.7 cm/sec SV(LVOT):45.4 ml TR maxvel: 217.2 cm/sec PA V2 max: 80.1 cm/sec TR maxP.5 mmHg PA max P.6 mmHg RVSP(TR):22.5 mmHg RAP systole: 3.0 mmHg E' av.5 cm/sec E/E': 8.6 E/E' lat:7.2 E/E' med: 10.0 TricuspidAnnular Peak S': 14.5 cm/sec Left Ventricle The left ventricle is normal in size. There is normal left ventricularwall thickness. Left ventricular systolic function is normal. Ejection Fraction = 60-65%. A full diastolic function study wasperformed but is nondiagnostic. No regional wall motion abnormalities noted. Right Ventricle The right ventricle is normal size. The right ventricular systolicfunction is normal. 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 Right atrialsize is normal. The inferior vena cava is normal size with > 50% respirophasic variation, consistent with normal right atrialpressure. There is no Color Doppler evidence for an atrial septal defect. Mitral Valve The mitral valve is normal in structure. There is no mitral valvestenosis. There is mild mitral regurgitation. Tricuspid Valve The tricuspid valve is normal in structure. There is no tricuspidstenosis. There is mild tricuspid regurgitation. Right ventricular systolic pressure is normal. Aortic Valve The aortic valve is normal in structure. The aortic valve is trileaflet.No hemodynamically significant valvular aortic stenosis. No aortic regurgitation is present. Pulmonic Valve The pulmonic valve is not well visualized. There is no pulmonic valvularstenosis. Trace pulmonic valvular regurgitation. Great Vessels The aortic root is normal size. The ascending aorta is normal size. Pericardium/Pleural There is no pericardial effusion. Interpretation Summary The study was technically adequate. Please see full report for findings.Compared to prior study from 04/01/24, there is no significant change. Electronically signed by:Steven Peña MD 10/03/2024 04:50 PM Bridger Hernandez MD CV ECHO PROCEDURES Final Result * Complete Pulmonary Function Testing (09/14/2024 11:20 AM EDT) FVC Actual Pre-BD 3.60 L [facility] FVC Pre-BD % of Predicted 95 % [facility] FEV1 Actual Pre-BD 2.42 L [facility] FEV! Pre-BD % of Predicted 84 % [facility] FEV1/FVC Actual Pre-BD 67 % [facility] DLCO Actual Pre-BD 15.59 mL/min/mmHg [facility] DLCO Pre-BD % of Predicted 64 % [facility] DLCO Actual Pre-BD (Uncorrected) 13.88 mL/min/mmHg [facility] DLCO Pre-BD % of Predicted (Uncorrected) 57 % [facility] TLC Actual Pre-BD 5.30 L [facility] TLC Pre-BD % of Predicted 79 % [facility] RV Actual Pre-BD 1.70 L [facility] RV Pre-BD % of Predicted 73 % [facility] RV/TLC Actual Pre-BD 32 % [facility] 6 MW Actual Pre-BD 324 meters [facility] 6 MW Pre-BD % of Predicted 59 % [facility] 09/14/2024 Narrative [facility] - 09/14/2024 12:00 AM EDT See attached scanned result Procedure Note Hazel Manzano MD - 10/01/2024 See attached scanned result Daysi Fink MD PFT ORDERABLES Final Resu lt Performing Organization Address City/[facility]/ZIP Co de Phone Number [facility] [address] [place] [address], * Vitamin B12 with reflex to MMA (08/25/2024 11:37 AM EDT) Vitamin B12 528 232 - 1,245 pg/mL [facility] 1 Blood Venous blood specimen / Unknown 08/25/2024 11:37 AM EDT 08/25/2024 Narrative [facility] - 08/25/2024 10:45 PM EDT Performed at: [facility] [id number] Slipcover Cutter: Iram Zambrano MD, Phone: [phone] Izaiah Martinez MD LAB BLOOD ORDERABLES Final Re sult Performing Organization Address [facility] Phone Number [facility] [address] [facility] 1 * Folate (08/25/2024 11:37 AM EDT) Folate 8.6 >3.0 ng/mL [facility] 1 Comment: A serum folate concentration of less than 3.1 ng/mL is considered to represent clinical deficiency. Blood Venous blood specimen / Unknown 08/25/2024 11:37 AM EDT 08/25/2024 Narrative [facility] - 08/25/2024 10:45 PM EDT Performed at: [facility] [id number] Slipcover Cutter: Iram Zambrano MD, Phone: [phone] Izaiah Martinez MD LAB BLOOD ORDERABLES Final Re sult Performing Organization Address City/[facility] Co de Phone Number [facility] [address] [place] [address], [facility] 1 * Sandy Rojo Virus DNA PCR, Quantitative (08/01/2024 2:43 PM EDT) [facility] EBV DNA, Quant PCR, Plasma Negative Negative IU/mL [facility] 1 Comment: No EBV DNA detected. The linear range of this assay is 35 - 100,000,000 IU/mL Blood Venous blood specimen / Unknown 08/01/2024 2:43 PM EDT 08/01/2024 Comment: Narrative [facility] - 08/02/2024 8:15 PM EDT Performed at: [facility] [id number] Slipcover Cutter: Iram Zambrano MD, Phone: [phone] Lena Cortes NP [facility] ORDERABLES Final R esult Performing Organization Address [facility] de Phone Number [facility] [address] [place] [address], [facility] 1 * Blood culture (08/01/2024 2:43 PM EDT) [facility] Blood Culture No aerobic or anaerobic growth in five days. [facility] 1 Blood Venous blood specimen / Unknown 08/01/2024 2:43 PM EDT 08/01/2024 Comment: Narrative [facility] - 08/07/2024 9:29 AM EDT Performed at: [facility] [id number] Slipcover Cutter: Iram Zambrano MD, Phone: [phone] Lena Cortes NP LAB MICROBIOLOGY - GENER AL ORDERABLES Final Result Performing Organization Address [facility] de Phone Number [facility] [address] [place] [address], [facility] * HLA Post Tx Antibody ID (DSA), Class 1 and Class 2 (08/01/2024 2:39 PM EDT) [facility] PDF Attached See PDF Document 08/13/2024 10:48 AM EDT [facility] Blood Venous blood specimen / Unknown Venipuncture / Unknown 08/01/2024 2:39 PM EDT 08/01/2024 4:37 PM EDT Bridger Hernandez MD LAB BLOOD ORDERABLES Final Resu lt [facility] [address] [place] [address], * Draw ONLY: [facility] HLA 16 (Post Tx Ab ID (DSA), Class 1+2) (08/01/2024 2:38 PM EDT) Pathologist [facility] 2 Red tops (Post Tx Ab ID (DSA), Class 1+2) [facility] 1 Comment:Final report will be sent under separate cover. Blood Venous blood specimen / Unknown 08/01/2024 2:38 PM EDT 08/01/2024 Narrative [facility] - 08/01/2024 4:15 PM EDT Performed at: [facility] [id number] Slipcover Cutter: Iram Zambrano MD, Phone: [phone] Bridger Hernandez MD LAB BLOOD ORDERABLES Final Resu lt [facility] [address] [place] [address], [facility] 1 * Hepatitis C Virus RNA, Quantitative, RT-PCR (01/26/2024 10:30 AM EDT) [facility] HCV RNA by RT-PCR [facility] 01/27/2024 2:18 PM EDT [facility] Comment:Not Detected HCV RNA Viral Load, log [facility] 01/27/2024 2:18 PM EDT [facility] Comment:Not Detected HCV RNA Viral Load, Interp Not Detected Not Detected [facility] 01/27/2024 2:18 PM EDT [facility] Blood Venous blood specimen / Unknown Venipuncture / Unknown 01/26/2024 10:30 AM EDT 01/26/2024 11:13 AM EDT Narrative [facility] - 01/27/2024 2:18 PM EDT This test was performed using the [employer] Alinity m HCV assay, performed on the 15[employer] Alinity m instrument. The lower limit of quantification is 12 IU/mL. Chi Barton MD LAB BLOOD ORDERABLES Final Resu lt Performing Organization Address [facility] de Phone Number [facility] [address] [place] [address], * Albumin, Urine, Random (Microalbumin Random, Including Creatinine) (11/26/2023 1:50 PM EDT) Albumin, urine (INT/EXT) <1.2 mg/dL 11/26/2023 2:44 PM EDT [facility] Creatinine, urine, random (INT/EXT) 47.40 24.00 - 392.00 mg/dL 11/26/2023 2:44 PM EDT [facility] Albumin/Creatini ne ratio 11/26/2023 2:44 PM EDT [facility] Comment:Unable to calculate due to below or above Analytical Measurement Range. Urine Urine specimen / Unknown Non-blood Collection / Unknown 11/26/2023 1:50 PM EDT 11/26/2023 1:50 PM EDT Pedro Kline MD LAB URINE ORDERABLES Maral l Result Performing Organization Address [facility] de Phone Number [facility] [address] [place] [address], * (ABNORMAL) Hemoglobin A1c (11/24/2023 12:42 AM EDT) HEMOGLOBIN A1C % (INT/EXT) 8.0(H) <5.6 % 11/24/2023 1:11 AM EDT [facility] Comment: Non-diabetic: < 6.0 % Diabetic: Goal: < 7.0% Action suggested: > 8.0% Blood Venous blood specimen / Unknown Venipuncture / Unknown 11/24/2023 12:42 AM EDT 11/24/2023 12:51 AM EDT us Pedro Kline MD LAB BLOOD ORDERABLES Maral radha Result [facility] [address] [place] [address], [place] from Last 3 Months or Most Recently Relevant to Health Maintenance Insurance MEDICARE PART A AND B HEALTH SAF[employer]Y NET MEDEX MEDICARE PART A AND B [facility] SAFETY NET MEDEX Advance Directives Documents on File Type Date Recorded 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 Lloyd Mandel Son [facility] Care Teams Clerk General Relationship Specialty Start Date End Date Name, MD Yoandy [address] [place] [address] PCP - General Obiee Obia Solution Architect 11/12/23 Glenn Herman MD [address] [place] [address] Referring Physician Cardiology 11/12/23 Edward Handley, Juan Supervisor [facility] 12/31/23 Jennie Michelle, PharmD [address] [place] [phone] Pharmacist Pharmacy 01/27/24
--- OUTSIDE RECORDS SUMMARY | 2024-10-31 11:36 | XMS_ITS | Clinical Summary ---
Author Organization [facility] Address [facility] [address] [place] [address] Phone Care Team Providers Care Spray Gun Repairer Helper Name Role Phone Name, Yoandy LUGO Primary Care Provider [phone] Social History Tobacco Use Types Packs/Day Years [...] Payer (Ef fective 2020-Present) Name:Matthew Toro Member ID:[id number] Relation to Subscriber:Self Name:Matthew Toro Subscriber ID:[id number] Payer ID:[id number] Group ID:Not on file Type:Medicare Address: [facility] [employer] [facility] [address] [facility] [place] [address] [facility] A & B Member Subscriber Plan / Payer (Ef fective 2020-Present) Name:Matthew Toro Member ID:[id number] Relation to Subscriber:Self Name:Margarita Avila Matthew Donny Subscriber ID:[id number] Payer ID:[id number] Group ID:Not on file Type:Medicare Address: [facility] [employer] [facility] [address] [place] [phone] [facility] [place] A [place] [id number] [facility] MEDICARE PART A & B [facility] NET FULL MEDICARE PART A & B [facility] NET FULL Member Subscriber Plan / Payer (Ef fective 2023-Present) Name:Avila Margarita Matthew Donny Relation to Subscriber:Self Name:Avila Avila Matthew Donny Payer ID:Not on file Group ID:Not on file Type:Medicaid [address] A & B [facility] FULL B Care Teams Spray Gun Repairer Helper Relationship Specialty Start Date End Date Name, MD Yoandy [address] [place] [address] PCP - General Internal Medicine 11/02/23 Additional Source Comments The information contained in this document represents components of the legal health record. It is not the complete legal health record.[facility]
--- OUTSIDE RECORDS SUMMARY | 2024-10-31 11:36 | XMS_ITS | Clinical Summary ---
Author Organization [employer] Address [address] [place] [address] Care Team Providers Care Wire Weaver Cloth Name Role Phone Name, Yoandy LUGO Primary Care Provider [phone] Allergies Active Allergy Reactions Criticality Noted Date [...] at bedtime. 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 Dysphagia 02/08/2023 Positive colorectal cancer screening using Colog uard test 02/04/2023 Overview (11/03/2023): Negative Colonoscopy 06/2023: urgical Pathology Exam - Order: [id number] Component 4 mo ago Case Report Surgicals Case: [id number] Authorizing Provider: Donny Encarnacion Collected: 2023 0843 MD Eugene Ordering Location: [facility] GI Lab Received: 2023 1011 Pathologist: [...] IHC, or [place] [address]. Resulting Agency [facility] Specimen Collected: 06/19/23 08:43 Performed by: [facility] Last Resulted: 06/23/23 17:27 [...] were answered. Coronary artery disease invo lving salamatof coronary artery of salam[place] heart without angina pectoris 11/14/2022 Overview (11/02/2023): Last Assessment & Plan: - nonobstructive disease - continue medical therapy with aspirin, statin, BB - denies angina Stridor 11/13/2022 Overview (11/02/2023): Last Assessment & Plan: Improved after last dilation in April 2023. Mild stridor noted today in clinic Discussed with his primary paleology professor Dr. 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 Follows at [facility] cardi Systolic dysfunction 03/13/2022 History of bradycardia 03/13/2022 Family history of prostate cancer 03/13/2022 Complete heart block 04/06/2020 Overview (11/02/2023): Added automatically from request for surgery [id number] Last Assessment & Plan: History of biventricular pacemaker that was upgraded to MATERIAL CONTROL SUPERVISOR defibrillator in September. Device interrogated today with [...] starting statin -No need for ischemic evaluation custodial (current) use of o ral hypoglycemic drugs 04/06/2022 11/03/2023 Other specified diseases of upper respiratory tract 04/06/2022 11/03/2023 Presence of automatic (impla ntable) cardiac defibrillator 04/06/2022 02/05/2024 Cardiac pacemaker in situ 03/13/2022 Uncontrolled type 2 diabetes mellitus with hyperglycemia 04/06/2020 02/05/2024 Overview (11/02/2023): Last Assessment & Plan: Encounters Date Type Department Care Team Description 10/05/2024 Telephone [facility] [address] [place] [phone] Keven Horan MD CHART PREP 09/29/2024 Telephone [facility] [address] [place] [address] Name, MD Yoandy Referral 09/29/2024 Telephone [facility] [address] [place] [address] Name, MD Yoandy Hospital Follow-up 09/12/[address] [phone] Americo Stiles [place] november recalls from Last 3 Months Immunizations Immunization Administration [...] CT Colonography 1955 Colonoscopy 1955 FIT 1955 Sigmoidoscopy 1955 Alcohol/Substance Use Screening 1967 Hepatitis B Vaccines (2 of 3 - 19+ 3-dose series) 12/24/2023 11/26/2023 Zoster Vaccines (2 of 2) 01/21/2024 11/26/2023 FOBT 01/22/2024 01/21/2023 COVID-19 Vaccine (5 - Mixed Product risk 2023- season) 08/04/2024 02/05/2024, 02/25/2022, 02/25/2022, Additional history exists Depression Screening 10/19/2024 10/20/2023, 10/20/19 24 SDOH [...] complication, without long-term current use of insulin ([facility]) ALBUMIN, RANDOM URINE W/CREATININE Routine 04/14/2024 11:04 AM EST Type 2 diabetes mellitus with other circulatory complication, without long-term current use of insulin ([facility]) LIPID PANEL, STANDARD Routine 06/27/2022 9:53 AM EDT from Last 3 Months or Most Recently Relevant to Health Maintenance Results * (ABNORMAL) Glucose, Whole Blood (08/24/2024 12:56 PM EDT) Glucose, Whole Blood 141(H) 60 - 115 mg/dL [facility] Comment:METER #: [id number] 5Testing performed in the Endocrinology Department [address] , [address], [facility]. 08/24/2024 12:5 6 PM EDT 08/24/2024 1:01 PM EDT Generic External Data Provider LAB BLOOD ORDERAB LES Final Result Performing Organization Address [facility] Co de Phone Number [facility] [address] [place] [phone] * POCT HGB A1C (07/27/2024 10:59 AM EDT) Hemoglobin A1C 5.7 4.0 - 6.0 % QC Media Lot # [id number] Lot# Expiration Date Blood 07/27/2024 10:5 9 AM EDT Yoandy Tillman MD POINT OF CARE TEST ENTER/EDIT OR DERABLES Final Result * Albumin, Random Urine W/Creatinine (04/14/2024 11:04 AM EST) Creatinine, Urine 109.08 mg/dL [facility] Microalbumin Urine 6.0 mg/L [facility] Microalbum Creatinine Ratio Ur 5.5 <30 ug/mg cr [facility] Comment:Albumin/Creatinine R at Reference Ranges: Normal: < 30 ug/mg creatinine Microalbuminuria: 30 - 300 ug/mg creatinineClinical Albuminuria: > 300 ug/mg creatinine Urine (Urine, Random) 04/14/2024 11:04 AM EST 04/14/2024 1:04 PM EST Yoandy Tillman MD LAB URINE ORDERABLES Final Resul t Performing Organization Address [facility]/ZIP Co de Phone Number [facility] [address] [place] [phone] * Lipid Panel, Standard (06/27/2022 9:53 AM EDT) Triglycerides 84 mg/dL [facility] Comment:Desirable Triglyceri de: less than 150 mg/dLBorderline High Triglyceride 150-199 mg/dLHigh Triglyceride: 200-499 mg/dLVery High Triglyceride: greater than or equal to 5OO mg/dL Cholesterol 154 mg/dL [facility] Comment:Desirable Cholestero l: less than 200 mg/dLBorderline High Cholesterol: 200-239 mg/dLHigh Cholesterol: greater than 239 mg/dL LDL Cholesterol Calculated 104 mg/dl [facility] Comment:Desirable LDL: less than 100 mg/dLNear Optimal/Above Optimal LDL: 110- 129 mg/dLBorderline High LDL: 130-159 mg/dLHigh LDL: 160-189 mg/dLVery High LDL: greater than or equal to 190 mg/dL HDL Cholesterol 34 mg/dL [facility] Comment:Desirable HDL: great er than 40 mg/dL Note: This HDL assay may give artificially low results in patients with liver disease. 06/27/2022 9:53 AM EDT 06/27/2022 9:53 AM EDT [facility] External Provider LAB BLO OD ORDERABLES Final Result [facility] [address] [place], [place] [phone] from Last 3 Months or Most Recently Relevant to Health Maintenance Insurance MEDICARE [facility] MEDEX CARE [facility] STANDARD Care Teams Wire Weaver Cloth Relationship Specialty Start Date End Date Name, MD Yoandy [address] [place] [address], [place] [address] PCP - General Internal Medicine 10/19/23 Roberto Lyudmila 01/19/24
[2024-10-31 11:50] LABS: Hematocrit 32.3 % (42.0-52.0); Hemoglobin 10.8 g/dl (14.0-18.0); Imm Gran Abs Auto 0.04 X10*3/uL (0.00-0.03); Imm Gran Pct Auto 1.6 % (0.0-0.4); Lymphocytes Absolute Auto 0.6 X10*3/uL (1.2-4.9); Mean Corpuscular HGB Conc 33.4 g/dl (31.0-36.0); Mean Corpuscular Hemoglobin 29.1 pg (27.0-33.0); Mean Corpuscular Volume 87.1 fL (80.0-98.0); NRBC Abs Auto 0.000 X10*3/uL (0.0-0.012); NRBC Pct Auto 0.0 /100WBC (0.0-0.2); Platelet Count 146 X10*3/uL (160-400); Red Blood Count 3.71 X10*6/uL (4.60-5.80); White Blood Count 2.5 X10*3/uL (4.8-10.8)
[2024-10-31 12:33] LABS: Alanine Aminotransferase 22 U/L (0-40); Albumin Level 4.5 g/dL (3.5-5.0); Alkaline Phosphatase 50 U/L (39-117); Anion Gap 9 (12-20); Aspartate Amino Transferase 23 U/L (5-37); Blood Urea Nitrogen 14 mg/dL (9-16); Calcium 9.3 mg/dL (8.4-10.2); Carbon Dioxide 25 mmol/L (22-29); Chloride 113 mmol/L (96-108); Estimated Glomerular Filt Rate 58; Potassium 4.4 mmol/L (3.3-5.1); Sodium 143 mmol/L (135-145); Total Protein 6.6 g/dL (6.5-8.0)
[2024-11-03 02:03] LABS: CMV DNA Qn PCR <1.54 DETECTED Log IU/mL (NOT DETECTED)
== END 2024-10-31 10:28 | disposition home or self-care (01) ==
LOC: HO.LABR 10:27
PROVIDERS: PCP Internal Medicine Geriatric Medicine; Visit Provider Nurse Practitioner Family
DX: B25.9 Cytomegaloviral disease, unspecified (principal)
CPT/HCPCS: 36415; 80053; 85025; 87497

== ENCOUNTER 2024-11-14 10:55 | Outpatient (REF) | payer MEDICARE, SELFPAY ==
[2024-11-14 11:16] LABS: MANUAL DIFF FLAG NO
--- OUTSIDE RECORDS SUMMARY | 2024-11-14 11:43 | XMS_ITS | Clinical Summary ---
Author Organization [facility] Address [address] [facility] [address] [place] [address] Care Team Providers Care Stone Polisher Machine Name Role Phone Glenn Herman MD Unavailable [phone] NameYoandy MD Primary Care Provider [phone] Edward Handley replenishment analyst Unavailable Unavailable Jennie Michelle PharmD Unavailable [phone] Allergies Active Allergy Reactions Criticality Noted Date [...] Active Additional Information Patient taking differently: Inject 5 Units under the skin before breakfast AND 6 Units before lunch AND 6 Units before evening meal., Reported on 11/07/2024 pravastatin (Pravachol) 80 mg tabletIndication s:Heart transplant [...] taking 22 units every am, Reported on 11/07/2024 insulin lispro (HumaLOG KwikPen Insulin) 100 unit/mL [...] tablet 2 4:56 PM EDT 12/25 Active Additional Information Patient not taking.Reason: per , accidentally forgot to fill box (likely off for ~2 weeks), Reported on 11/07/2024 pen needle, diabetic (BD Ultra-Fine Mini Pen [...] twice daily. 60 tablet 11 10/06 Active tacrolimus (Prograf) 5 mg capsuleIndicatio ns:Heart transplant recipient (Multi-HCC) Take 1 capsule (5 mg) by mouth twice daily. 60 capsule 025 4:43 PM EDT 10/17 Active tacrolimus (Prograf) 1 mg capsuleIndicatio ns:Heart transplant recipient (Multi-HCC) Take 1 capsule (1 mg) by mouth twice daily. 60 capsule 11/07 Active famotidine (Pepcid) 20 mg tabletIndication s:Heart transplant recipient (Multi-HCC) Take 1 tablet (20 mg) by mouth before evening meal. 30 tablet 2 025 4:01 PM EDT 02/05 Active mycophenolate (Cellcept) 250 mg capsuleIndicatio ns:Heart transplant recipient (Multi-HCC) Take 1 capsule (250 mg) by mouth twice daily. Take in addition to 500mg tab, total dose 750mg twice daily. 60 capsule 025 4:01 PM EDT 11/07 Active tacrolimus (Prograf) 1 mg capsuleIndicatio ns:Heart transplant recipient (Multi-HCC) Take 4 capsules (4 mg) by mouth in the morning. 120 capsule 025 2:12 PM EDT 10/17 Discontinued( Dose adjustment) tacrolimus (Prograf) 5 mg capsuleIndicatio ns:Heart transplant recipient (Multi-HCC) Take 1 capsule (5 mg) by mouth in the evening. 30 capsule 11 10/17 Discontinued mycophenolate (Cellcept) 250 mg capsuleIndicatio ns:Heart transplant recipient (Multi-HCC) Take 1 capsule (250 mg) by mouth twice daily. Take in addition to 500mg tab, total dose 750mg twice daily. 60 capsule 025 2:12 PM EDT 11/07 Discontinued( Reorder) famotidine (Pepcid) 20 mg tabletIndication s:Heart transplant recipient (Multi-HCC) Take 1 tablet (20 mg) by mouth before evening meal. 30 tablet 2 11/07 Discontinued( Reorder) Active Problems Problem Noted Date Diagnosed Date [...] 's report Asked patient to call his Plate Drying Machine Tender regarding his increased weight/swelling for further recommendations. Last Assessment & Plan: reports he's up a few pounds from his baseline weight, worsening leg swelling over the last few days. Compliant with Torsemide - taking full dose per 's report Asked patient to call his Plate Drying Machine Tender regarding his increased weight/swelling for further recommendations. [...] Encounters Date Type Department Care Team Description 11/08/2024 Results Follow-Up [facility] Infectious Disease [address] [phone] Lena Penny NP 11/07/2024 1:00 PM EDT Office Visit [facility] Infectious Disease [address] [phone] Chi Barton MD Other cytomegaloviral diseases (Multi-HCC) (Primary Dx); Immunosuppressed status (Multi-HCC); Heart transplant recipient (Multi-HCC); Preventative health care; Other fatigue; Upper airway cough syndrome 11/07/2024 12:15 PM EDT Office Visit [facility] Cardiac Subspecialty [address] [phone] Dena Mitchell NP Heart transplant recipient (Multi-HCC) (Primary Dx); Essential hypertension, benign ; Mixed hyperlipidemia ; Type 2 diabetes mellitus with other specified complication, unspecified whether executive housekeeper insulin use (Multi-HCC); Subglottic stenosis; Sarcoidosis; Pulmonary nodules; Other cytomegaloviral diseases (Multi-HCC); Observed seizure-like activity (Multi-HCC) 11/07/2024 Travel 10/25/2024 Telephone [facility] Infectious Disease [address] [phone] Lena Penny NP 10/25/2024 Telephone [facility] Infectious Disease [address] [phone] Chi Barton MD req labs orders 10/24/2024 Telephone [facility] Infectious Disease [address] [place] [phone] Lena Penny NP 10/17/2024 Orders Only [facility] Cardiac Subspecialty [address] [phone] Daniele Barnhart MD 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) 10/11/2024 Telephone [facility] Infectious Disease [address] [address] Lena Penny NP 10/04/2024 Telephone [facility] Infectious Disease [address] [phone] Lena Penny WORD PROCESSING SUPERVISOR 10/04/2024 Orders Only [facility] Cardiac Subspecialty [address] [phone] Daniele Barnhart MD Cytomegalovirus infection, unspecified cytomegaloviral infection type (Multi-HCC) 10/03/2024 2:31 PM EDT - 10/03/2024 11:59 PM EDT Hospital Encounter [facility] Radiology [address] [place] [address] Chronic cough Discharge Disposition: Home or self care 10/03/2024 11:00 AM EDT - 10/03/2024 2:30 PM EDT Hospital Encounter [facility] Cardiac Echo [address] [facility] [address] [place] [phone] Cytomegalovirus infection, unspecified cytomegaloviral infection type (Multi-HCC); Heart transplant recipient (Multi-HCC) Discharge Disposition: Home or self care 10/03/2024 9:40 AM EDT Office Visit [facility] Cardiac Subspecialty [address] [phone] Daniele Barnhart MD Heart transplant recipient (Multi-HCC) (Primary Dx); Essential hypertension, benign ; Mixed hyperlipidemia ; Type 2 diabetes mellitus with other specified complication, unspecified whether executive housekeeper insulin use (Multi-HCC); Cytomegalovirus infection, unspecified cytomegaloviral infection type (Multi-HCC) 10/03/2024 9:30 AM EDT Office Visit [facility] Infectious Disease [address] [phone] Chi Barton MD Chronic cough (Primary Dx); Fever, unspecified fever cause; Heart transplant recipient (Multi-HCC); Immunosuppressed status (Multi-HCC); Other cytomegaloviral diseases (Multi-HCC); Weight loss; Preventative health care; Pancytopenia (CMS-HCC) 10/03/2024 Travel 09/29/2024 Telephone [facility] Cardiac Subspecialty [address] [phone] Provider, Generic External Data 09/29/2024 Refill [facility] Cardiac Subspecialty [address] [phone] Zackery Paulino, RN Cytomegalovirus infection, unspecified cytomegaloviral infection type (Multi-HCC); Heart transplant recipient (Multi-HCC) 09/28/2024 9:30 AM EDT Telephone Visit [facility] Pulmonary [address] [phone] Radhames Espinoza MD Pulmonary sarcoidosis (Multi-HCC) (Primary Dx); Tracheal stenosis; Cardiac sarcoidosis (HHS-HCC) 09/19/2024 Refill [facility] Cardiology [address] [facility] [address] [place] [phone] Pedro Kline MD Heart transplant recipient (Multi-HCC) 09/19/2024 Refill [facility] Cardiology [address] [facility] [address] [place] [phone] Kong Lizarraga MD Heart transplant recipient (Multi-HCC) 09/19/2024 Telephone [facility] Cardiac Subspecialty [address] [phone] Mychart, Generic Provider 09/14/2024 10:15 AM EDT - 09/14/2024 11:59 PM EDT Hospital Encounter [facility] Pulmonary Function Lab [address] [facility] 5th Floor Room [address] [place] [phone] Cytomegalovirus infection, unspecified cytomegaloviral infection type (Multi-HCC); Sarcoidosis; Dyspnea, unspecified Discharge Disposition: Home or self care 09/12/2024 Telephone [facility] Cardiac Subspecialty [address] [phone] Livier Russ MD Abnormal Lab (Elevated Tac level ) 09/10/2024 Telephone [facility] Cardiac Echo [address] [facility] [address] [place] [phone] Aracelis Acosta MD 09/09/2024 Telephone [facility] Cardiac Subspecialty [address] [phone] Bridger Hernandez MD Cough 09/05/2024 11:15 AM EDT Office Visit [facility] Infectious Disease [address] [facility] [address] [place] [phone] Donna Sanches MD Congenital cytomegalovirus infection (HHS-HCC) (Primary Dx); Heart transplant infection (Multi-HCC); Lymphopenia 09/05/2024 10:55 AM EDT Office Visit [facility] Cardiac Subspecialty [address] [phone] Bridger Hernandez MD Type 2 diabetes mellitus with other circulatory complication, unspecified whether executive housekeeper insulin use (Multi-HCC) (Primary Dx); Cytomegalovirus infection, unspecified cytomegaloviral infection type (Multi-HCC); Mixed hyperlipidemia ; Heart transplant recipient (Multi-HCC); Sarcoidosis; Immunosuppressed status (Multi-HCC) 09/05/2024 Telephone [facility] Pulmonary [address] [facility] [address] [address] [place] [address] Radhames Espinoza MD Change to telephone 09/05/2024 Travel 08/25/2024 10:00 AM EDT Office Visit [facility] Neurology 260 [place] [address] Percy Kapoor MD Focal epilepsy (Multi-HCC) (Primary Dx); MCI (mild cognitive impairment) 08/25/2024 Travel 08/25/2024 Telephone [facility] Neurology 260 [place] [address] Percy Kapoor MD late to appointment from Last 3 Months Immunizations Immunization Administration [...] Vaccine Formula 12+ (Deferred: Not available from software qa manager - Per pharmacy vaccine is out of [...] place to sleep or slept in a usp (including now)? No 11/26/2023 Sex and Gender Information Value Date Recorded Sex Assigned at Male 11/24/2023 1:58 AM EDT Legal Sex Male 12:45 PM EDT Gender Identity Male 11/24/2023 1:58 AM EDT Sexual Orientation Straight 11/24/2023 1: 58 AM EDT Last Filed Vital Signs Vital Sign Reading Time Taken Comments Blood Pressure 126/78 11/07/2024 12:07 PM EDT Pulse 101 11/07/2024 12:07 PM EDT Temperature 36.9 C (98.5 F) 10/03/2024 12:46 PM EDT Respiratory Rate 16 06/28/2024 10:24 AM EDT Oxygen Saturation 99% 11/07/2024 12:07 PM EDT Inhaled Oxygen Concentration - - Weight 61.4 kg (135 lb 6.4 oz) 11/07/2024 12:07 PM EDT Height 172.7 cm (5' 7.99 ) 11/07/2024 12:07 PM E DT Body Mass Index 20.59 11/07/2024 12:07 PM EDT Plan of Treatment Upcoming Encounters Date Type Department Care Team (Late st Contact Info) Description 12/19/2024 9:00 AM EDT Appointment [facility] Cardiac Echo [address] [facility] [address] [place] [phone] 12/19/2024 11:00 AM EDT Office Visit [facility] Cardiac Subspecialty [address] [facility] [address] [place] [phone] Bridger Hernandez MD [address] [facility] [address] [place] [address] 12/28/2024 10:45 AM EDT Appointment [facility] Imaging [address] [place] [phone] 12/28/2024 11:30 AM EDT Office Visit [facility] Pulmonary [address] [facility] [address] [place] [phone] Radhames Espinoza MD [facility] [address] [place] [address] 01/03/2025 10:30 AM EDT Hospital Encounter [facility] Cardiac Turbine Technician [address] [place] [phone] Zeina Maradiaga MD [address] [facility] [address] [place] [address] Other cytomegaloviral diseases (Multi-HCC); Heart transplant recipient (Multi-HCC) 01/03/2025 10:30 AM EDT - 01/03/2025 12:00 PM EDT Surgery [facility] Cardiac Turbine Technician [address] [place] [phone] Zeina Maradiaga MD [address] [facility] [address] [place] [address] Coronary angiography/RHC/bx; AHF slot @ 10:30am; page nubmers to JOSSY Mitchell [[id number] (CPT )] 02/22/2025 2:00 PM EST Office Visit [facility] Neurology 260 [place] [phone] Percy Kapoor MD [facility] [address] [place] [address] Health Maintenance Due Date Last Done Comments [...] Additional history exists Diabetes: Urine Protein Screening 11/07/2025 11/07/2024, 11/26/2023, 01/12/2023 High Risk LDL 11/07/2025 11/07/2024, 06/3 , 09/05/2024, Additional history exists Lipid Panel 11/07/2025 11/07/2024, 09/06, 09/05/2024, Additional history exists FIT-DNA 01/21/2026 01/21/2023, 01/04, [...] this topic Medical Devices Implanted Type Area Sales Representative Graphic Art Device Identifier Shelf Expiration Date Model / Serial / Lot Chief Cook-D [employer] Icd-10/02/2022 Implanted:09/05 (Quantity not on file) TELECOMMUNICATIONS LINE MECHANIC-D ICD Chest [employer] Graft Hemashield Str 10x30 - [id number] Implanted:Qty: 1 on 12/22/2023 at [facility] Graft Right: Axilla GETINGE/MAQUET CARDIOVASCULAR 09/03/2028 [id number] / [id number] / Impella- 024 Implanted:12/05 (Quantity not on file) Impella Heart Procedures Procedure Name Priority Date/Time Associated Diagnosis Comments ALLOMAP HEART Routine 11/07/2024 2:20 PM EDT Heart transplant recipient (Multi-HCC) ALLOSURE HEART Routine 11/07/2024 2:20 PM EDT Heart transplant recipient (Multi-HCC) HEARTCARE Routine 11/07/2024 2:20 PM EDT Heart transplant recipient (Multi-HCC) CMV DNA, QUANTITATIVE, RT-PCR Routine 11/07/2024 2:17 PM EDT Heart transplant infection (Multi-HCC) IGG Routine 11/07/2024 2:16 PM EDT Fever, unspecified fever cause CYSTATIN C WITH EGFR Routine 11/07/2024 2:15 PM EDT Heart transplant recipient (Multi-HCC) TACROLIMUS LEVEL STAT 11/07/2024 2:15 PM EDT Heart transplant recipient (Multi-HCC) HEPATIC FUNCTION PANEL STAT 11/07/2024 2:15 PM EDT Heart transplant recipient (Multi-HCC) URIC ACID STAT 11/07/2024 2:15 PM EDT Heart transplant recipient (Multi-HCC) LIPID PANEL Routine 11/07/2024 2:15 PM EDT Heart transplant recipient (Multi-HCC) CK Routine 11/07/2024 2:15 PM EDT Heart transplant recipient (Multi-HCC) LDH STAT 11/07/2024 2:15 PM EDT Heart transplant recipient (Multi-HCC) PHOSPHORUS STAT 11/07/2024 2:15 PM EDT Heart transplant recipient (Multi-HCC) MAGNESIUM STAT 11/07/2024 2:15 PM EDT Heart transplant recipient (Multi-HCC) COMPREHENSIVE METABOLIC PANEL STAT 11/07/2024 2:15 PM EDT Heart transplant recipient (Multi-HCC) CBC W/DIFF STAT 11/07/2024 2:15 PM EDT Heart transplant recipient (Multi-HCC) XR CHEST 2 VIEWS Routine 10/03/2024 2:53 [...] COMPLETE 2D W/ SPECTRAL AND COLOR DOPPLER (35860) Routine 10/03/2024 11:42 AM EDT Heart transplant recipient (Multi-HCC) TACROLIMUS LEVEL Routine 09/14/2024 12:5 0 PM EDT Heart transplant recipient (Multi-HCC) CBC W/DIFF Routine 09/14/2024 12:50 PM EDT Heart transplant recipient (Multi-HCC) COMPREHENSIVE METABOLIC PANEL Routine 09/14/2024 12:50 PM EDT Heart transplant recipient (Multi-HCC) DE PULMONARY STRESS TESTING Routine 09/14/2024 11:20 AM [...] 11:37 AM EDT MCI (mild cognitive impairment) HCV RNA, QUANTITATIVE, PCR (MONITORING) Routine 01/26/2024 10:30 AM EDT ALBUMIN, URINE, RANDOM (INCLUDING CREATININE) Routine 11/26/2023 1:50 PM EDT HEMOGLOBIN A1C Routine 11/24/2023 12:42 AM EDT from Last 3 Months or Most Recently Relevant to Health Maintenance Results * ALLOMAP HEART (11/07/2024 2:20 PM EDT) Only the most recent of3 resultswithin the time period is included. ALLOMAP SCORE - HEART 32 11/09/2024 1:01 AM EDT [facility] 95% CONFIDENCE INTERVAL 95% CI:30.1-3 4.8 11/09/2024 1:01 AM EDT [facility] NEGATIVE PREDICTIVE VALUE 99.0% 11/09/2024 1:01 AM EDT [facility] POSITIVE PREDICTIVE VALUE 2.9% 11/09/2024 1:01 AM EDT [facility] ([facility]) TIME POST TX 0y 10m 12d 11/09/2024 1:01 AM EDT [facility] TEST COMMENTS ([facility]) <None Specified > 11/09/2024 1:01 AM EDT [facility] NOTES ([facility]) See Note 11/09/2024 1:01 AM EDT [facility] ([facility]) Comment: Interpretation of AlloMap score should be made using the information available at the following link: http://www.allomap.com AlloMap testing performed at [facility] (CLIA No: [id number], CAP No: [id number]) Order Booker: Axel Cartagena M.D. These AlloMap test results are displayed here for your convenience. The pdf AlloMap report is the official report. The following data chamorro on the Results Details page are intentionally left empty as they are not applicable to AlloMap testing: Abnormal Units TX DATE 4 11/09/2024 1:01 AM EDT [facility] ORDER ID [id number] 11/09/2024 1:01 AM EDT [facility] CENTER ORDER ID [id number] 11/09/2024 1:01 AM EDT [facility] WP ORDER ID <None Specified > 11/09/2024 1:01 AM EDT [facility]) Blood Venous blood specimen / Unknown Venipuncture / Unknown 11/07/2024 2:20 PM EDT 11/07/2024 2:48 PM EDT Dena Mitchell WORD PROCESSING SUPERVISOR LAB BLOOD ORDERABLES Final Resu lt [facility] ([facility]) [address] [place], [place] [id number] * ALLOSURE HEART (11/07/2024 2:20 PM EDT) Only the most recent of3 resultswithin the time period is included. ALLOSURE SCORE < 0.04 % 11/09/2024 7:45 PM EDT [facility]) TIME POST TX 0y 10m 12d 11/09/2024 7:45 PM EDT [facility] TEST COMMENTS (ASHK) <None Specified> 11/09/2024 7:45 PM EDT [facility]) NOTES (ASHK) See Note 11/09/2024 7:45 PM EDT [facility] ([facility]I) Comment: INTERPRETATION OF RESULTS Instructions for Interpreting [...] (2)(3) See the HeartCare interpretation guide at [email or web address] for information on HeartCare, AlloSure Heart and [...] more information about AlloSure Heart, please visit [email or web address]. (1)Nik et al., J Heart Lung Transplant 2023; (2)Nik et al., Am J Transplant 2019; (3)Data on file for patients <15 years old. The AlloSure Heart Donor-Derived Cell-Free DNA Test was developed and its performance characteristics were determined by the [facility]. The test has not been cleared or approved by the U.S. Food and Drug Administration. The laboratory is certified under the Clinical Laboratory Improvement Amendments of 1988 (CLIA '88) and accredited by the [employer] [place] [employer] (CAP) as qualified to perform high complexity clinical laboratory testing. The contents of this report are confidential and intended solely for use by authorized personnel. AlloSure testing performed at [facility] [address] [place] [id number] (CLIA No: [id number], CAP No: [id number]) Order Booker: Axel Cartagena M.D. TRANSPLANTED ORGAN Heart 2024 7:45 PM EDT [facility] ([facility]) CLIENT SPECIMEN ID <None Specified> 11/09/2024 7:45 PM EDT [facility] TX DATE 12/28/2023 11/09/2024 7:45 PM EDT [facility] DONOR RELATION Unrelated 11/09/2024 7:45 PM EDT [facility] ORDER ID [id number] 11/09/2024 7:45 PM EDT [facility] CENTER ORDER ID [id number] 11/09/2024 7:45 PM EDT [facility] WP ORDER ID <None Specified> 11/09/2024 7:45 PM EDT [facility]) Blood Venous blood specimen / Unknown Venipuncture / Unknown 11/07/2024 2:20 PM EDT 11/07/2024 2:49 PM EDT Dena Mitchell NP LAB BLOOD ORDERABLES Final Resu lt [facility] ([facility]) [address] [place] [address] * CMV DNA, Quantitative, RT-PCR (11/07/2024 2:17 PM EDT) Only the most recent of5 resultswithin the time period is included. CMV Qn DNA PCR Positive < 200 Negative IU/mL [facility] 1 Comment: CMV DNA detected. The quantitative range of this assay is 200 to 1 million IU/mL. log10 CMV Qn DNA CANCELED log10 IU/mL [facility] 1 Comment: Unable to calculate result since non-numeric result obtained for component test. Result canceled by the ancillary. Blood Venous blood specimen / Unknown 11/07/2024 2:17 PM EDT 11/07/2024 Narrative [facility] - 11/08/2024 2:15 PM EDT Performed at: [address] [place] [id number] Order Booker: Iram Zambrano MD, Phone: [phone] Chi Barton MD LAB BLOOD ORDERABLES Edited Res ult - Final Performing Organization Address [facility] Co de Phone Number [facility] [address] [place] [address], [facility] 1 * IgG (11/07/2024 2:16 PM EDT) Only the most recent of2 resultswithin the time period is included. Pathologist [facility] IgG 760 603 - 1,613 mg/dL [facility] 1 Blood Venous blood specimen / Unknown 11/07/2024 2:16 PM EDT 11/07/2024 Narrative [facility] - 11/08/2024 6:15 AM EDT Performed at: [address] [place] [id number] Order Booker: Iram Zambrano MD, Phone: [phone] Lena Penny NP LAB BLOOD ORDERABLES Fin al Result Performing Organization Address [facility] Co de Phone Number [facility] [address] [place] [address], [facility] 1 * Cystatin C with eGFR (11/07/2024 2:15 PM EDT) Only the most recent of3 resultswithin the time period is included. Cystatin C 1.01 0.72 - 1.16 mg/L [facility] 1 eGFRcys 74 >59 mL/min/1.73 [facility] 1 Blood Venous blood specimen / Unknown 11/07/2024 2:15 PM EDT 11/07/2024 Narrative [facility] - 11/08/2024 6:45 AM EDT Performed at: - [address] [id number] Order Booker: Iram Zambrano MD, Phone: [phone] Dena Mitchell NP LAB BLOOD ORDERABLES Final Resu lt Performing Organization Address [facility] Co de Phone Number [facility] [address] [place] [address], [facility] 1 * Tacrolimus level (11/07/2024 2:15 PM EDT) Only the most recent of4 resultswithin the time period is included. [facility] Tacrolimus, LC-MS/MS 5.8 3.0 - 20.0 ng/mL [facility] 1 Comment: Performed by LC-MS/MS. Reference intervals are based on trough collection. Optimal therapeutic ranges depend on time post-transplant, dosing regimen, organ type, and concomitant immunosuppression therapy. Results should be interpreted in conjunction with physical signs/symptoms of rejection/toxicity. This test was developed and its performance characteristics determined by [facility]. It has not been cleared or approved by the FDA. The laboratory is regulated under CLIA as qualified to perform high-complexity testing. This test is used for clinical purposes. It should not be regarded as investigational or for research. Time of last dose See Comment Date of last dose See Comment Blood Venous blood specimen / Unknown 11/07/2024 2:15 PM EDT 11/07/2024 Narrative [facility] - 11/08/2024 1:15 PM EDT Test(s) [id number] ([id number]), Blood was developed and its performance characteristics determined by [facility]. It has not been cleared or approved by the Food and Drug Administration. Performed at: - [address], [place] [id number] Order Booker: Jim Henning [facility], Phone: [phone] Dena Mitchell NP LAB BLOOD ORDERABLES Final Resu lt Performing Organization Address [facility] Co de Phone Number [facility] [address] [place] [address], [facility] 1 * (ABNORMAL) CBC and differential (11/07/2024 2:15 PM EDT) Only the most recent of4 resultswithin the time period is included. WBC 2.8(L) 4.0 - 11.0 K/uL [facility] 1 RBC 3.71(L) 4.20 - 5.90 M/uL [facility] 1 Hgb 10.9(L) 13.0 - 17.5 g/dL [facility] 1 Hct 33.4(L) 37.0 - 53.0 % [facility] 1 MCV 90.0 80.0 - 100.0 fL [facility] 1 MCH 29.4 26.0 - 34.0 pg [facility] 1 MCHC 32.6 31.0 - 37.0 g/dL [facility] 1 RDW 13.8 11.5 - 14.5 % [facility] 1 Comment:RDW-SD 44.7 fL 35.0- 51.0 Platelets 143(L) 150 - 400 K/uL [facility] 1 Comment:MPV 10.4 fL 9.1-12.4 Neutrophils 78.5 % [facility] 1 Lymphs 12.1 % [facility] 1 Monocytes 6.8 % [facility] 1 Eos 0.4 % [facility] 1 Basos 0.4 % [facility] 1 Neutrophils Abs 2.20 1.50 - 7.95 K/uL [facility] 1 Lymphs Abs 0.34(L) 0.70 - 4.00 K/uL [facility] 1 MonocytesAbs 0.19(L) 0.38 - 0.83 K/uL [facility] 1 Eos Abs 0.01 0.00 - 0.50 K/uL [facility] 1 Baso Abs 0.01 0.00 - 0.22 K/uL [facility] 1 Immature Granulocytes 1.8 % [facility] 1 Immature Grans Abs 0.05 0.00 - 0.10 K/uL [facility] 1 NRBC 0.0 0.0 - 0.0 % [facility] 1 Comment:NRBC Absolute 0.00 K/uL 0.00-2.00 Blood Venous blood specimen / Unknown 11/07/2024 2:15 PM EDT 11/07/2024 Narrative [facility] - 11/07/2024 4:15 PM EDT Performed at: [address] [place] [address] [id number] Order Booker: Jim Henning [facility], Phone: [phone] Dena Mitchell NP LAB BLOOD ORDERABLES Final Resu lt Performing Organization Address [facility] Co de Phone Number [facility] [address] [place] [address], [facility] * Uric Acid (11/07/2024 2:15 PM EDT) Only the most recent of3 resultswithin the time period is included. Uric Acid 4.8 2.6 - 8.0 mg/dL [facility] 1 Comment: Although the reference interval for men extends up to 8.0 mg/dL, patients with gout may benefit from uric acid levels <6.0 mg/dL. Blood Venous blood specimen / Unknown 11/07/2024 2:15 PM EDT 11/07/2024 Narrative [facility] - 11/07/2024 4:45 PM EDT Performed at: [address] [place] [address] [id number] Order Booker: Jim Henning [facility], Phone: [phone] Dena Mitchell NP LAB BLOOD ORDERABLES Final Resu lt Performing Organization Address City/[email or web address]] de Phone Number [facility] [address] [place] [address], [facility] * Phosphorus (11/07/2024 2:15 PM EDT) Only the most recent of3 resultswithin the time period is included. Phosphorus 3.2 2.4 - 4.9 mg/dL [facility] 1 Blood Venous blood specimen / Unknown 11/07/2024 2:15 PM EDT 11/07/2024 Narrative [facility] - 11/07/2024 4:45 PM EDT Performed at: 01 - [address] [id number] Order Booker: Jim Henning [facility], Phone: [phone] Dena Mitchell NP LAB BLOOD ORDERABLES Final Resu lt Performing Organization Address City/[facility]/ZIP Co de Phone Number [facility] [address] [place] [address], [facility] 1 * Magnesium (11/07/2024 2:15 PM EDT) Only the most recent of3 resultswithin the time period is included. Magnesium 1.7 1.6 - 2.6 mg/dL [facility] 1 Blood Venous blood specimen / Unknown 11/07/2024 2:15 PM EDT 11/07/2024 Narrative [facility] - 11/07/2024 4:45 PM EDT Performed at: [address] [id number] Order Booker: Jim Henning [facility], Phone: [phone] Dena Mitchell NP LAB BLOOD ORDERABLES Final Resu lt Performing Organization Address [facility] Co de Phone Number [facility] [address] [place] [address], [facility] 1 * (ABNORMAL) Lactate dehydrogenase (11/07/2024 2:15 PM EDT) Only the most recent of3 resultswithin the time period is included. LDH 279(H) 110 - 250 U/L [facility] 1 Blood Venous blood specimen / Unknown 11/07/2024 2:15 PM EDT 11/07/2024 Narrative [facility] - 11/07/2024 4:45 PM EDT Performed at: [address] [place] [address] [id number] Order Booker: Jim Henning [facility], Phone: [phone] Dena Mitchell NP LAB BLOOD ORDERABLES Final Resu lt Performing Organization Address City/[facility] Co de Phone Number [facility] [address] [place] [address], [facility] 1 * CK (aka CPK) (11/07/2024 2:15 PM EDT) Only the most recent of3 resultswithin the time period is included. CK Total 46 41 - 331 U/L [facility] 1 Blood Venous blood specimen / Unknown 11/07/2024 2:15 PM EDT 11/07/2024 Narrative [facility] - 11/08/2024 8:15 AM EDT Performed at: [address] [id number] Order Booker: Iram Zmabrano MD, Phone: [phone] Dena Mitchell NP LAB BLOOD ORDERABLES Final Resu lt Performing Organization Address [facility]/ZIP Co de Phone Number [facility] [address] [place] [address], [facility] 1 * Hepatic function panel (11/07/2024 2:15 PM EDT) Only the most recent of3 resultswithin the time period is included. Pathologist [facility] Bilirubin, Direct 0.1 0.0 - 0.5 mg/dL [facility] 1 Blood Venous blood specimen / Unknown 11/07/2024 2:15 PM EDT 11/07/2024 Narrative [facility] - 11/07/2024 4:45 PM EDT Performed at: [address] [place] [address] [id number] Order Booker: Jim Henning [facility], Phone: [phone] Dena Mitchell NP LAB BLOOD ORDERABLES Final Resu lt [facility] [address] [place] [address], [facility] * Lipid panel (11/07/2024 2:15 PM EDT) Only the most recent of3 resultswithin the time period is included. Cholesterol 137 100 - 199 mg/dL [facility] 1 Triglycerides 91 0 - 149 mg/dL [facility] 1 HDL Cholesterol 43 >39 mg/dL [facility] 1 VLDLc Calc 17 5 - 40 mg/dL [facility] 1 LDLc Calc (NIH) 77 0 - 99 mg/dL [facility] 1 Non-HDL Chol 94 0 - 129 mg/dL [facility] 1 Blood Venous blood specimen / Unknown 11/07/2024 2:15 PM EDT 11/07/2024 Narrative [facility] - 11/08/2024 5:45 AM EDT Performed at: 01 - [facility] [id number] Order Booker: Iram Zambrano MD, Phone: [phone] us Dena Mitchell NP LAB BLOOD ORDERABLES Final Resu lt [facility] [address] [place] [address], [facility] 1 * (ABNORMAL) Comprehensive metabolic panel (11/07/2024 2:15 PM EDT) Only the most recent of4 resultswithin the time period is included. Pathologist [facility] Glucose 144(H) 70 - 139 mg/dL [facility] 1 Comment:Fasting? Unknown BUN 14 6 - 24 mg/dL [facility] 1 Creat 1.06 0.55 - 1.30 mg/dL [facility] 1 eGFR 76 >=60 mL/min/1.7 3m*2 [facility] 1 Comment:Calculated using CKD -EPI 2020 creatinine equation. Sodium 143 135 - 146 mmol/L [facility] 1 Potassium 4.9 3.6 - 5.2 mmol/L [facility] 1 Chloride 105 98 - 110 mmol/L [facility] 1 Anion Gap 12 3 - 14 mmol/L [facility] 1 Carbon Dioxide 26 20 - 32 mmol/L [facility] 1 Calcium 9.6 8.5 - 10.5 mg/dL [facility] 1 Protein Total 6.9 6.0 - 8.4 g/dL [facility] 1 Albumin 4.7 3.2 - 5.0 g/dL [facility] 1 Bili Total 0.3 0.2 - 1.2 mg/dL [facility] 1 Alk Phosphatase 60 30 - 130 U/L [facility] 1 AST 23 6 - 42 U/L [facility] 1 ALT 25 0 - 55 U/L [facility] 1 Blood Venous blood specimen / Unknown 11/07/2024 2:15 PM EDT 11/07/2024 Narrative [facility] - 11/07/2024 4:45 PM EDT Performed at: - [place] [address], [place], [place] [id number] Order Booker: Jim Henning [facility], Phone: [phone] us Dena Mitchell NP LAB BLOOD ORDERABLES Final Resu lt [facility] [address] [place] [address], [facility] * XR CHEST 2 VIEWS (10/03/2024 2:53 PM EDT) Anatomical Region Laterality Modality Chest Computed Radiogr aphy 10/03/2024 3:51 PM EDT Impressions 10/03/2024 4:00 PM EDT No acute pulmonary abnormality. APPROVED BY STAFF RADIOLOGIST: Luisito Emmanuel MD 10/03/2024 4:00 PM EDT Narrative 10/03/2024 4:00 PM EDT NAME: MATTHEW AVILA : 1955 AGE: 69 years GENDER: Male ORD PHYS: LENA Anderson ZOHAIB LOCATION: [facility] 10/03/2024 2:53 PM EDT IMG36 (XR CHEST 2 VIEWS) [id number] EXAMINATION: XR CHEST 2 VIEWS HISTORY: cough [...] 69 years GENDER: Male ORD PHYS: LENA PENNY LOCATION: [facility] 10/03/2024 2:53 PM EDT IMG36 (XR CHEST 2 VIEWS) [id number] EXAMINATION: XR CHEST 2 VIEWS HISTORY: cough [...] Luisito Emmanuel MD 10/03/2024 4:00 PM EDT us Lena Penny WORD PROCESSING SUPERVISOR IMG XR PROCEDURES Final Result * TTE COMPLETE 2D W/ SPECTRAL AND COLOR DOPPLER (34432) (10/03/2024 11:42 AM EDT) Anatomical Region Laterality Modality Other 10/03/2024 11:1 6 AM EDT Narrative 10/03/2024 4:50 PM EDT [facility] [address] [place] [address] Transthoracic Echocardiogram Name: MATTHEW TORO Study Date: 10/03/2024 11:16 AM : 1955 Gender: Male Age: 69 yrs Ethnicity: OTHER Patient Location: [facility]^^^[facility] Referring Physician: BRIDGER HERNANDEZ Performed By: Parece, Jewell Ordering Physician: BRIDGER HERNANDEZ Reason For Study: cardiac transplantation Height: 68 in Weight: 137 lb BSA: 1.7 m2 BP: 117/73 mmHg CPT/Quality/Location Complete 2D TTE with spectral and color Doppler (55107). Location performed: Department. MMode/2D Measurements & Calculations [...] Peña MD - 10/03/2024 [facility] [address] [place] [address] TransthoracicEchocardiogram Name: MATTHEW TORO Study Date: 1:16 AM : 1955 Gender: Male Age: 69 yrs Ethnicity: OTHER Patient Location: [facility]^^^C Referring Physician: BRIDGER HERNANDEZ Performed By: Jewell Treviño Ordering Physician: BRIDGER HERNANDEZ Reason For Study: cardiac transplantation Height: 68 in Weight: 137 lb BSA: 1.7 m2 BP:117/73 mmHg CPT/Quality/Location Complete 2D TTE with spectral and color Doppler (21209). Locationperformed: Department. MMode/2D Measurements & Calculations IVSd: [...] signed by:Steven Peña MD 10/03/2024 04:50 PM us Bridger Hernandez MD CV ECHO PROCEDURES Final Result * Complete Pulmonary Function Testing (09/14/2024 11:20 AM EDT) FVC Actual Pre-BD 3.60 L [facility] FVC Pre-BD % of Predicted [...] ORDERABLES Final Resu lt Performing Organization Address City/[facility]/ZIP Co de Phone Number [facility] [address] [place] [address], * Vitamin B12 with reflex to MMA (08/25/2024 11:37 AM EDT) Pathologist [facility] Vitamin B12 528 232 - 1,245 pg/mL [facility] 1 Blood Venous blood specimen / Unknown 08/25/2024 11:37 AM EDT 08/25/2024 Narrative [facility] - 08/25/2024 10:45 PM EDT Performed at: 01 - [facility] [address] [id number] Order Booker: Iram Zambrano MD, Phone: [phone] Izaiah Martinez MD LAB BLOOD ORDERABLES Final Re sult [facility] [address] [place] [address], [facility] 1 * Folate (08/25/2024 11:37 AM EDT) Pathologist [facility] Folate 8.6 >3.0 ng/mL [facility] 1 Comment: A serum folate concentration of less than 3.1 ng/mL is considered to represent clinical deficiency. Blood Venous blood specimen / Unknown 08/25/2024 11:37 AM EDT 08/25/2024 Narrative [facility] - 08/25/2024 10:45 PM EDT Performed at: [facility] [id number] Order Booker: Iram Zambrano MD, Phone: [phone] Izaiah Martinez MD LAB BLOOD ORDERABLES Final Re sult Performing Organization Address City/[facility]/ZIP Co de Phone Number [facility] [address] [place] [address], [facility] 1 * Hepatitis C Virus RNA, Quantitative, RT-PCR (01/26/2024 10:30 AM EDT) [facility] HCV RNA by RT-PCR [facility] 01/27/2024 2:18 PM EDT [facility] Comment:Not Detected HCV RNA Viral Load, log [facility] 01/27/2024 2:18 PM EDT [facility] Comment:Not Detected HCV RNA Viral Load, Interp Not Detected Not Detected [facility] 01/27/2024 2:18 PM EDT [facility] Blood Venous blood specimen / Unknown Venipuncture / Unknown 01/26/2024 10:30 AM EDT 01/26/2024 11:13 AM EDT Narrative [facility] - 01/27/2024 2:18 PM EDT This test was performed using the Capptainnity m HCV assay, performed on the Chat& (ChatAnd) instrument. The lower limit of quantification is 12 IU/mL. Chi Barton MD LAB BLOOD ORDERABLES Final Resu lt [facility] [address] [place] [address], * Albumin, Urine, Random (Microalbumin Random, Including Creatinine) (11/26/2023 1:50 PM EDT) Albumin, urine (INT/EXT) <1.2 mg/dL 11/26/2023 2:44 PM EDT [facility] Creatinine, urine, random (INT/EXT) 47.40 24.00 - 392.00 mg/dL 11/26/2023 2:44 PM EDT [facility] Albumin/Creatini ne ratio 11/26/2023 2:44 PM EDT [facility] Comment:Unable to calculate due to below or above Analytical Measurement Range. Urine Urine specimen / Unknown Non-blood Collection / Unknown 11/26/2023 1:50 PM EDT 11/26/2023 1:50 PM EDT Pedro Kline MD LAB URINE ORDERABLES Maral l Result Performing Organization Address [facility] Co de Phone Number [facility] [address] [place] [address], * (ABNORMAL) Hemoglobin A1c (11/24/2023 12:42 AM EDT) HEMOGLOBIN A1C % (INT/EXT) 8.0(H) <5.6 % 11/24/2023 1:11 AM EDT [facility] Comment: Non-diabetic: < 6.0 % Diabetic: Goal: < 7.0% Action suggested: > 8.0% Blood Venous blood specimen / Unknown Venipuncture / Unknown 11/24/2023 12:42 AM EDT 11/24/2023 12:51 AM EDT Pedro Kline MD LAB BLOOD ORDERABLES Maral l Result Performing Organization Address City/[facility] Co de Phone Number [facility] [address] from Last 3 Months or Most Recently Relevant to Health Maintenance Insurance MEDICARE PART A AND B HEALTH SAF[employer]Y NET [address] [place], [place] [id number] MEDICARE PART A AND B HEALTH SAFETY NET [facility] [employer] Advance Directives Documents on File Type Date Recorded Patient Crown Attacher Expl anation Advance Directives and Living Will 11/25/2023 Lloyd Ahmadi Health Care Proxy * Full Code (Latest Code Status on File) Date Activated Date Inactivated Comments 11/24/2023 12:16 AM 01/20/2024 1:17 PM Healthcare Agents on File Name Relationship Healthcare Agent Relationship Communication Aleisha Ahmadi Spouse Health Care Agent [email or web address] Lloyd Avila Ministerio Son First Alte rnate Health Care Agent Care Teams Stone Polisher Machine Relationship Specialty Start Date End Date Name, MD Yoandy [address] [place] [address] PCP - General Frame Coverer 11/12/23 Glenn Herman MD [address] [place] [address] Referring Physician Cardiology 11/12/23 Edward Handley, replenishment analyst Inshore Undersea Warfare Officer Pharmacy 12/31/23 Jennie Michelle, PharmD [address] [place], [place] [id number] Pharmacist Pharmacy 01/27/24
--- OUTSIDE RECORDS SUMMARY | 2024-11-14 11:43 | XMS_ITS | Clinical Summary ---
Author Organization [employer] [facility] Address Critical access hospital [facility] [address] [place] [phone] Phone Care Team Providers Care Mouthpiece Maker Name Role Phone Name, Yoandy LUGO Primary Care Provider [phone] Social History Tobacco Use Types Packs/Day Years [...] file Insurance MEDICARE PART A & B [facility] [place] [place] A & [place] [id number] [facility] FULL [facility] MEDICARE PART A & B [facility] NET FULL MEDICARE PART A & B [facility] NET FULL Member Subscriber Plan / Payer (Ef fective 2023-Present) Name:Avila Margarita Matthew Donny Relation to Subscriber:Self Name:Avila Avila Matthew Donny Payer ID:Not on file Group ID:Not on file Type:Medicaid [address] MED[address] PART A & B [facility] FULL B Care Teams Mouthpiece Maker Relationship Specialty Start Date End Date Name, MD Yoandy [address] [place] [address] PCP - General Internal Medicine 11/02/23 Additional Source Comments The information contained in this document represents components of the legal health record. It is not the complete legal health record.Formerly [facility]
--- OUTSIDE RECORDS SUMMARY | 2024-11-14 11:43 | XMS_ITS | Clinical Summary ---
Author Organization [employer] Address [address] [facility] 7t [place] [address] Care Team Providers Care Interrelated Special Education Teacher Name Role Phone Name, Yoandy LUGO Primary Care Provider [phone] Allergies Active Allergy Reactions Criticality Noted Date Comments Lisinopril Cough 03/13/2022 Medications Blood Glucose Monitoring Suppl (FreeStyle glucose monitoring) kit 1 each if needed. Test 1 time by intradermal route everyday Active FREESTYLE LITE test strip TEST BLOOD SUGAR EVERY DAY 100 strip 11 3 Active aspirin 81 MG chewable tablet Chew 1 tablet (81 mg) Once daily. 90 tablet 3 Active budesonide (Pulmicort) 0.5 MG/2ML nebulizer solution USE 1 VIAL IN NEBULIZER TWICE DAILY RINSE MOUTH AFTER USE Active amoxicillin (Amoxil) 500 MG capsule TAKE FOUR CAPSULES BY MOUTH ONE HOUR BEFORE DENTAL WORK. 4 Active mycophenolate (Cellcept) 500 MG tablet Take 1,000 mg by mouth 2 times daily. 4 01/12/20 25 Active pantoprazole (ProtoNix) 40 MG EC tablet Take 40 mg by mouth before breakfast. 4 01/13/20 25 Active sennosides (Senokot) 8.6 MG tablet Take 8.6 mg by mouth if needed in the morning and at bedtime. 4 Active Sharps Container (BD Sharps Warning Analyst) misc For disposal of needles and lancets 4 Active sulfamethoxazol e-trimethoprim (Bactrim DS) 800-160 MG tablet Take 1 tablet by mouth Once per day. 4 Active HumaLOG KWIKPEN 100 UNIT/ML injection Administer subcutaneous 5 units with breakfast, 6 units with lunch and dinner 4 Active calcium carbonate (Tums) 500 MG chewable tablet Chew 1 tablet (500 mg) 2 times daily. 4 02/05/20 25 Active cholecalciferol (Vitamin D-3) 25 MCG (1000 UT) capsule Take 1 capsule (25 mcg) by mouth Once per day. 4 02/05/20 25 Active levETIRAcetam (Keppra) 750 MG tablet Take 1 tablet by mouth 2 times daily. 5 Active valGANciclovir (Valcyte) 450 MG tablet Take 1 tablet by mouth 2 times daily. 5 Active Alcohol Swabs (B-D SINGLE USE SWABS REGULAR) pads Use as directed 4 Active fluticasone (Flonase) 50 MCG/ACT nasal spray Administer 1 spray into each nostril Once per day. 5 12/03/19 25 Active pen needle 31G x 5 mm misc Use with insulin pen as directed 5 Active pravastatin (Pravachol) 80 MG tablet Take 1 tablet by mouth Once per day. 5 Active predniSONE (Deltasone) 5 MG tablet Take 1 tablet by mouth Once per day. 5 Active tacrolimus (Prograf) 1 MG capsule Take 4 capsules by mouth 2 times daily. 5 09/30/19 26 Active insulin glargine (Lantus SoloStar) 100 UNIT/ML pen Inject 22 Units under the skin at bedtime. Active Active Problems Problem Noted Date Diagnosed [...] endurance 11/06 Non-restorable tooth 11/19/2023 History of [place] (myocardial infarction) 10/20/2023 Memory problem 10/20/2023 Shortness [...] 's report Asked patient to call his Sports Physical Therapist regarding his increased weight/swelling for further recommendations. Dysphagia 02/08/2023 Positive colorectal cancer screening using Colog uard test 02/04/2023 Overview (11/03/2023): Negative Colonoscopy 06/2023: urgical Pathology Exam - Order: [id number] Component 4 mo ago Case Report Surgicals Case: [id number] Authorizing Provider: Donny Encarnacion Collected: 2023 0843 MD Eugene Ordering Location: [facility] GI Lab Received: 2023 1011 [...] IHC, [place] [address]. Resulting Agency [facility] Specimen Collected: 06/19/23 08:43 Performed by: [facility] Last Resulted: 06/23/23 17:27 Athscl [...] were answered. Coronary artery disease invo lving [place] coronary artery of [place] heart without angina pectoris 11/14/2022 Overview (11/02/2023): Last Assessment & Plan: - nonobstructive disease - continue medical therapy with aspirin, statin, BB - denies angina Stridor 11/13/2022 Overview (11/02/2023): Last Assessment & Plan: Improved after last dilation in April 2023. Mild stridor noted today in clinic Discussed with his primary conservation enforcement officer Dr. Sanches and will work to get [...] 04/06/2022 Ventricular tachycardia, unspecified 04/06/2022 Other terminal block assembler (current) drug therapy 3 Type 2 diabetes [...] upgraded from dual-chamber to biventricular device at [facility] 03/2022. Follows at [facility] cardi Systolic dysfunction 03/13/2022 History of bradycardia 03/13/2022 Family history of prostate cancer 03/13/2022 Complete heart block 04/06/2020 Overview (11/02/2023): Added automatically from request for surgery [id number] Last Assessment & Plan: History of biventricular pacemaker that was upgraded to SECONDARY SOCIAL STUDIES TEACHER defibrillator in September. Device interrogated today with [...] elsewhere 01/30/2023 1 04/06/2023 Orthostatic hypotension 01/25/2023 1104/2023 Multiple wounds 10/10/2022 11/03/2023 Elevated troponin 09/16/2022 [...] starting statin -No need for ischemic evaluation intermediate designer (current) use of o ral hypoglycemic drugs 04/06/2022 11/03/2023 Other specified diseases of upper respiratory tract 04/06/2022 11/03/2023 Presence of automatic (impla ntable) cardiac defibrillator 04/06/2022 02/05/2024 Cardiac pacemaker in situ 03/13/2022 Uncontrolled type 2 diabetes mellitus with hyperglycemia 04/06/2020 02/05/2024 Overview (11/02/2023): Last Assessment & Plan: Encounters Date Type Department Care Team Description 10/05/[address] [address] Keven Horan MD CHART PREP 09/29/[address] [address] Name, MD Yoandy Referral 09/29/[address] [address] Name, MD Yoandy [facility] Follow-up 09/12/[address] [address] Americo Stiles [place] november recalls from Last [...] 1955 FIT 1955 FOBT 1955 Sigmoidoscopy 1955 Alcohol/Substance Use Screening 1967 [...] complication, without long-term current use of insulin ([facility]) ALBUMIN, RANDOM URINE W/CREATININE Routine 04/14/2024 11:04 AM EST Type 2 diabetes mellitus with other circulatory complication, without long-term current use of insulin ([facility]) LIPID PANEL, STANDARD Routine 06/27/2022 9:53 AM EDT from Last 3 Months or Most Recently Relevant to Health Maintenance Results * (ABNORMAL) Glucose, Whole Blood (08/24/2024 12:56 PM EDT) Glucose, Whole Blood 141(H) 60 - 115 mg/dL [facility] Comment:METER #: [id number] 5Testing performed in the Endocrinology Department [address] , [address], [facility]. 08/24/2024 12:5 6 PM EDT 08/24/2024 1:01 PM EDT us Generic External Data Provider LAB BLOOD ORDERAB LES Final Result Performing Organization Address [facility] Co de Phone Number [facility] [address] [place] [phone] * POCT HGB A1C (07/27/2024 10:59 AM EDT) Hemoglobin A1C 5.7 4.0 - 6.0 % QC Media Lot # [id number] Lot# Expiration Date Blood 07/27/2024 10:5 9 AM EDT Yoandy Tillman MD POINT OF CARE TEST ENTER/EDIT OR DERABLES Final Result * Albumin, Random Urine W/Creatinine (04/14/2024 11:04 AM EST) Creatinine, Urine 109.08 mg/dL [facility] Microalbumin Urine 6.0 mg/L [facility] Microalbum Creatinine Ratio Ur 5.5 <30 ug/mg cr [facility] Comment:Albumin/Creatinine R atio Reference Ranges: Normal: < 30 ug/mg creatinine Microalbuminuria: 30 - 300 ug/mg creatinineClinical Albuminuria: > 300 ug/mg creatinine Urine (Urine, Random) 04/14/2024 11:04 AM EST 04/14/2024 1:04 PM EST us Yoandy Tillman MD LAB URINE ORDERABLES Final Resul t Performing Organization Address [facility] Co de Phone Number [facility] [address] [place] [phone] * Lipid Panel, Standard (06/27/2022 9:53 AM EDT) Triglycerides 84 mg/dL [facility] Comment:Desirable Triglyceri de: less than 150 mg/dLBorderline High Triglyceride 150-199 mg/dLHigh Triglyceride: 200-499 mg/dLVery High Triglyceride: greater than or equal to 5OO mg/dL Cholesterol 154 mg/dL [facility] Comment:Desirable Cholestero l: less than 200 mg/dLBorderline High Cholesterol: 200-239 mg/dLHigh Cholesterol: greater than 239 mg/dL LDL Cholesterol Calculated 104 mg/dl [facility] Comment:Desirable LDL: less than 100 mg/dLNear Optimal/Above Optimal LDL: 110- 129 mg/dLBorderline High LDL: 130-159 mg/dLHigh LDL: 160-189 mg/dLVery High LDL: greater than or equal to 190 mg/dL HDL Cholesterol 34 mg/dL [facility] Comment:Desirable HDL: great er than 40 mg/dL Note: This HDL assay may give artificially low results in patients with liver disease. 06/27/2022 9:53 AM EDT 06/27/2022 9:53 AM EDT [facility] External Provider LAB BLO OD ORDERABLES Final Result [facility] [address] [place] [phone] [phone] from Last 3 Months or Most Recently Relevant to Health Maintenance Insurance MEDICARE [facility] MEDEX CARE [facility] STANDARD Care Teams Interrelated Special Education Teacher Relationship Specialty Start Date End Date Name, MD Yoandy [address] [place] [address] PCP - General Internal Medicine 10/19/23 [facility] 01/19/24
[2024-11-14 11:46] LABS: Hematocrit 33.2 % (42.0-52.0); Hemoglobin 11.0 g/dl (14.0-18.0); Imm Gran Abs Auto 0.05 X10*3/uL (0.00-0.03); Imm Gran Pct Auto 1.7 % (0.0-0.4); Lymphocytes Absolute Auto 0.6 X10*3/uL (1.2-4.9); Mean Corpuscular HGB Conc 33.1 g/dl (31.0-36.0); Mean Corpuscular Hemoglobin 29.4 pg (27.0-33.0); Mean Corpuscular Volume 88.8 fL (80.0-98.0); NRBC Abs Auto 0.000 X10*3/uL (0.0-0.012); NRBC Pct Auto 0.0 /100WBC (0.0-0.2); Platelet Count 134 X10*3/uL (160-400); Red Blood Count 3.74 X10*6/uL (4.60-5.80); White Blood Count 3.0 X10*3/uL (4.8-10.8)
[2024-11-14 12:32] LABS: Alanine Aminotransferase 15 U/L (0-40); Albumin Level 4.4 g/dL (3.5-5.0); Alkaline Phosphatase 48 U/L (39-117); Anion Gap 11 (12-20); Aspartate Amino Transferase 14 U/L (5-37); Blood Urea Nitrogen 14 mg/dL (9-16); Calcium 9.3 mg/dL (8.4-10.2); Carbon Dioxide 29 mmol/L (22-29); Chloride 110 mmol/L (96-108); Estimated Glomerular Filt Rate 58; Potassium 4.8 mmol/L (3.3-5.1); Sodium 145 mmol/L (135-145); Total Protein 6.5 g/dL (6.5-8.0)
[2024-11-15 12:14] LABS: Tacrolimus Prograf 6.2 mcg/L
[2024-11-15 13:28] LABS: CMV DNA Qn PCR <1.54 DETECTED Log IU/mL (NOT DETECTED)
== END 2024-11-14 10:56 | disposition home or self-care (01) ==
LOC: HO.LABR 10:55
PROVIDERS: Visit Provider Internal Medicine Infectious Disease
DX: T86.23 Heart transplant infection (principal)
CPT/HCPCS: 36415; 80053; 80197; 85025; 87497

== ENCOUNTER 2024-11-23 11:12 | Outpatient (REF) | payer MEDICARE, SELFPAY ==
--- OUTSIDE RECORDS SUMMARY | 2024-11-23 12:36 | XMS_ITS | Encounter Summary ---
Author Organization [facility] Address [address] [facility] [place] [address] Care Team Providers Care Functional Architect Name Role Phone Glenn Herman MD Unavailable [phone] NameYoandy MD Primary Care Provider [phone] Edward Handley [facility] Unavailable Unavailable Jennie Michelle PharmD Unavailable [phone] Reason for Visit * Reason Onset Date Comments Appointment 11/21/2024 Encounter Details Date Type Department Care Team (Late st Contact Info) Description 11/21/2024 Telephone [facility] [address] [place] [phone] Kailyn Hess Appointment Social History Tobacco Use Types Packs/Day Years Used Date Smoking Tobacco: Never Passive Smoke Exposure: Never Smokeless Tobacco: Never Alcohol Use Standard Drinks/Week Comments Not Currently [...] place to sleep or slept in a fpc (including now)? No 11/26/2023 Sex and Gender Information Value Date Recorded Sex Assigned at Male 11/24/2023 1:58 AM EDT Legal Sex Male 12:45 PM EDT Gender Identity Male 11/24/2023 1:58 AM EDT Sexual Orientation Straight 11/24/2023 1: 58 AM EDT documented as of this encounter Functional Status * Are you deaf or do you have serious difficulty hearing? Answer Date of Assessment Author No 11/26/2023 11:17 AM EDT Bethany Washington RN * Are you blind or do you have serious difficulty seeing, even when wearing glasses? Answer Date of Assessment Author No 11/26/2023 11:17 AM EDT Bethany Washington RN * Do you have serious difficulty walking or climbing stairs? Answer Date of Assessment Author Yes 11/26/2023 11:17 AM EDT Bethany Washington RN * Do you have serious difficulty dressing or bathing? Answer Date of Assessment Author No 11/26/2023 11:17 AM EDT Bethany Washington RN * Because of a physical, mental, or emotional condition, do you have difficulty doing errands such asvisiting the doctor's office or shopping? Answer Date of Assessment Author No 11/26/2023 11:17 AM TYT Bethany Washington RN documented as of this encounter Mental Status * Because of a physical, mental, or emotional condition, do you have serious difficulty concentrating, remembering, or making decisions? Answer Entry Date Author Yes 11/26/2023 11:17 AM EDT Bethany Washington RN documented in this encounter Miscellaneous Notes * Telephone Encounter - Kailyn Hess - 11/21/2024 11:32 AM EDT Called patient back with forklift truck operator to confirm all appointments. The plan is to have cath on 01/03/25 and will review specifics of that at his clinic visit on 12/19/2024. will relay all the appointments and messages to and I will mail a confirmation letter. * Telephone Encounter - Kailyn Hess - 11/21/2024 10:28 AM EDT Spoke with patient's and she was in an appointment and will call back in an hour. Patient's is also health proxy. documented in this encounter Plan of Treatment Upcoming Encounters Date Type Department Care Team (Late st Contact Info) Description 12/19/2024 9:00 AM EDT Appointment [facility] Echo [address] [facility] [address] [place] [phone] 12/19/2024 11:00 AM EDT Office Visit [facility] [address] [facility] 6th [place] [address] Juan Hutchinson MD [address] [facility] [address] [place] [address] 12/28/2024 10:45 AM EDT Appointment [facility] Imaging [address] [place] [address] 12/28/2024 11:30 AM EDT Office Visit [facility] Pulmonary [address] [facility] [address] 3rd [place] [address] Radhames Espinoza MD [facility] [address] [place] [address] 01/03/2025 10:30 AM EDT Hospital Encounter [facility] Neonatal Specialist [address] [place] [address] Zeina Maradiaga MD [address] [address] Other cytomegaloviral diseases (Multi-HCC); Heart transplant recipient (Multi-HCC) 01/03/2025 10:30 AM EDT - 01/03/2025 12:00 PM EDT Surgery [facility] [address] [place] [phone] Zeina Maradiaga MD [address] [address] Coronary angiography/RHC/bx; F slot @ 10:30am; page nubmers to JOSSY Mitchell [058[address] (CPT )] 02/22/2025 2:00 PM EST Office Visit [facility] Neurology [address] [place] [phone] Percy Kapoor MD [address] [address] documented as of this encounter Visit Diagnoses Diagnosis Heart transplant recipient (Multi-HCC)- Primary 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
--- OUTSIDE RECORDS SUMMARY | 2024-11-23 12:36 | XMS_ITS | Clinical Summary ---
Author Organization [employer] Address [address] [facility] [address] [place] [address] Care Team Providers Care Heel Gouger Name Role Phone Name, Yoandy LUGO Primary Care Provider Allergies Active Allergy Reactions Criticality Noted Date [...] bedtime. 4 Active Sharps Container (BD Sharps Mattress And Foundation Sewer) misc For disposal of needles and lancets [...] endurance 11/06 Non-restorable tooth 11/19/2023 History of [place] (myocardial infarction) 10/20/2023 Memory problem 10/20/2023 Shortness [...] 's report Asked patient to call his Methodologist regarding his increased weight/swelling for further recommendations. Dysphagia 02/08/2023 Positive colorectal cancer screening using Colog uard test 02/04/2023 Overview (11/03/2023): Negative Colonoscopy 06/2023: urgical Pathology Exam - Order: [id number] Component 4 mo ago Case Report Surgicals Case: [id number] Authorizing Provider: Donny Encarnacion Collected: 2023 0843 MD Eugene Ordering Location: [facility] GI Lab Received: 2023 1011 [...] IHC, [place] [address]. Resulting Agency [facility] Specimen Collected: 06/19/23 08:43 Performed by: [facility] Last Resulted: 06/23/23 17:27 [...] were answered. Coronary artery disease invo lving [place] coronary artery of [place] heart without angina pectoris 11/14/2022 Overview (11/02/2023): Last Assessment & Plan: - nonobstructive disease - continue medical therapy with aspirin, statin, BB - denies angina Stridor 11/13/2022 Overview (11/02/2023): Last Assessment & Plan: Improved after last dilation in April 2023. Mild stridor noted today in clinic Discussed with his primary environmental service aide Dr. 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 Follows at [facility] cardi Systolic dysfunction 03/13/2022 History of bradycardia 03/13/2022 Family history of prostate cancer 03/13/2022 Complete heart block 04/06/2020 Overview (11/02/2023): Added automatically from request for surgery [id number] Last Assessment & Plan: History of biventricular pacemaker that was upgraded to DIAMOND POWDER TECHNICIAN defibrillator in September. Device interrogated today with [...] starting statin -No need for ischemic evaluation powder worker tnt (current) use of o ral hypoglycemic drugs 04/06/2022 11/03/2023 Other specified diseases of upper respiratory tract 04/06/2022 11/03/2023 Presence of automatic (impla ntable) cardiac defibrillator 04/06/2022 02/05/2024 Cardiac pacemaker in situ 03/13/2022 Uncontrolled type 2 diabetes mellitus with hyperglycemia 04/06/2020 02/05/2024 Overview (11/02/2023): Last Assessment & Plan: Encounters Date Type Department Care Team Description 10/05/[address] [address] Keven Horan MD CHART PREP 09/29/[address] [address] Name, MD Yoandy Referral 09/29/[address] [address] Name, MD Yoandy [facility] Follow-up 09/12/[address] [address] Americo Stiles [place] november recalls from Last [...] with others, in a hotel, in a long term, living outside on the street, on a [...] complication, without long-term current use of insulin ([facility]) ALBUMIN, RANDOM URINE W/CREATININE Routine 04/14/2024 11:04 AM EST Type 2 diabetes mellitus with other circulatory complication, without long-term current use of insulin ([facility]) LIPID PANEL, STANDARD Routine 06/27/2022 9:53 AM EDT from Last 3 Months or Most Recently Relevant to Health Maintenance Results * (ABNORMAL) Glucose, Whole Blood (08/24/2024 12:56 PM EDT) Glucose, Whole Blood 141(H) 60 - 115 mg/dL [facility] Comment:METER #: [id number] 5Testing performed in the Endocrinology Department [address] , [address], [facility]. 08/24/2024 12:5 6 PM EDT 08/24/2024 1:01 PM EDT us Generic External Data Provider LAB BLOOD ORDERAB LES Final Result Performing Organization Address [facility] Co de Phone Number [facility] [address] [place] [phone] * POCT HGB A1C (07/27/2024 10:59 [...] [facility] Microalbumin Urine 6.0 mg/L [facility] Microalbum Creatinine Ratio Ur 5.5 <30 ug/mg cr [facility] Comment:Albumin/Creatinine R atio Reference Ranges: Normal: < 30 ug/mg creatinine Microalbuminuria: 30 - 300 ug/mg creatinineClinical Albuminuria: > 300 ug/mg creatinine Urine (Urine, Random) 04/14/2024 11:04 AM EST 04/14/2024 1:04 PM EST us Yoandy Tillman MD LAB URINE ORDERABLES Final Resul t Performing Organization Address [facility] Co de Phone Number [facility] [address] [place] [phone] * Lipid Panel, Standard (06/27/2022 9:53 AM EDT) Triglycerides 84 mg/dL [facility] Comment:Desirable Triglyceri de: less than [...] to 190 mg/dL HDL Cholesterol 34 mg/dL [facility] Comment:Desirable HDL: great er than 40 mg/dL Note: This HDL assay may give artificially low results in patients with liver disease. 06/27/2022 9:53 AM EDT 06/27/2022 9:53 AM EDT [facility] External Provider LAB BLO OD ORDERABLES Final Result [facility] [address] [place] [phone] [phone] from Last 3 Months or Most Recently Relevant to Health Maintenance Insurance MEDICARE [facility] MEDEX CARE [facility] STANDARD Care Teams Heel Gouger Relationship Specialty Start Date End Date Name, MD Yoandy [address] [place] [address] PCP - General Internal Medicine 10/19/23 [facility] 01/19/24
--- OUTSIDE RECORDS SUMMARY | 2024-11-23 12:37 | XMS_ITS | Clinical Summary ---
Author Organization [email or web address] [facility] Address [facility] [address] [place] [phone] Phone Care Team Providers Care Induction Heat Treater Name Role Phone Name, Yoandy LUGO Primary Care Provider [phone] Social History Tobacco Use Types Packs/Day Years [...] Payer (Ef fective 2020-Present) Name:Matthew Toro Member ID:[id number] Relation to Subscriber:Self Name:Matthew Toro Subscriber ID:[id number] Payer ID:[id number] Group ID:Not on file Type:Medicare Address: [facility] [employer] [facility] [address] [facility] [place] [phone] [facility] B Member Subscriber Plan / Payer (Ef fective 2020-Present) Name:Matthew Toro Member ID:[id number] Relation to Subscriber:Self Name:Margarita Avila Matthew Donny Subscriber ID:[id number] Payer ID:[id number] Group ID:Not on file Type:Medicare Address: [facility] [employer] [facility] [address] [place] [phone] [facility] [place] [phone] [facility] FULL [facility] MEDICARE PART A & B [facility] NET FULL MEDICARE PART A & B [facility] NET FULL Member Subscriber Plan / Payer (Ef fective 2023-Present) Name:Avila Margarita Matthew Donny Relation to Subscriber:Self Name:Avila Avila Matthew Donny Payer ID:Not on file Group ID:Not on file Type:Medicaid [address] B [facility] FULL B Care Teams Induction Heat Treater Relationship Specialty Start Date End Date Name, MD Yoandy [address] [place] [address] PCP - General Internal Medicine 11/02/23 Additional Source Comments The information contained in this document represents components of the legal health record. It is not the complete legal health record.[facility]
[2024-11-24 16:44] LABS: CMV DNA Qn PCR <1.54 DETECTED Log IU/mL (NOT DETECTED)
== END 2024-11-23 11:13 | disposition home or self-care (01) ==
LOC: HO.LABR 11:12
PROVIDERS: PCP Internal Medicine Geriatric Medicine; Visit Provider Nurse Practitioner Family
DX: B25.9 Cytomegaloviral disease, unspecified (principal)
CPT/HCPCS: 36415; 87497

== ENCOUNTER 2024-11-28 11:00 | Outpatient (REF) | payer MEDICARE, SELFPAY ==
[2024-11-28 11:34] LABS: MANUAL DIFF FLAG NO
[2024-11-28 12:18] LABS: Hematocrit 32.7 % (42.0-52.0); Hemoglobin 10.7 g/dl (14.0-18.0); Imm Gran Abs Auto 0.04 X10*3/uL (0.00-0.03); Imm Gran Pct Auto 1.0 % (0.0-0.4); Lymphocytes Absolute Auto 0.5 X10*3/uL (1.2-4.9); Mean Corpuscular HGB Conc 32.7 g/dl (31.0-36.0); Mean Corpuscular Hemoglobin 28.9 pg (27.0-33.0); Mean Corpuscular Volume 88.4 fL (80.0-98.0); NRBC Abs Auto 0.000 X10*3/uL (0.0-0.012); NRBC Pct Auto 0.0 /100WBC (0.0-0.2); Platelet Count 126 X10*3/uL (160-400); Red Blood Count 3.70 X10*6/uL (4.60-5.80); White Blood Count 3.8 X10*3/uL (4.8-10.8)
--- OUTSIDE RECORDS SUMMARY | 2024-11-28 12:26 | XMS_ITS | Clinical Summary ---
Author Organization [employer] Address [address] [place] [address] Care Team Providers Care Nutrition And Dietetics Instructor Name Role Phone Name, Yoandy LUGO Primary Care Provider [phone] Allergies Active Allergy Reactions Criticality Noted Date [...] bedtime. 4 Active Sharps Container (BD Sharps Malware Analyst) misc For disposal of needles and [...] endurance 11/06 Non-restorable tooth 11/19/2023 History of SC (myocardial infarction) 10/20/2023 Memory problem 10/20/2023 Shortness [...] 's report Asked patient to call his Mold Unloader regarding his increased weight/swelling for further recommendations. Dysphagia 02/08/2023 Positive colorectal cancer screening using Colog uard test 02/04/2023 Overview (11/03/2023): Negative Colonoscopy 06/2023: urgical Pathology Exam - Order: [id number] Component 4 mo ago Case Report Surgicals Case: [id number] Authorizing Provider: Donny Encarnacion Collected: 2023 0843 [...] IHC, [place] [address]. Resulting Agency [facility] Specimen Collected: 06/19/23 08:43 Performed by: [facility] Last Resulted: 06/23/23 17:27 [...] were answered. Coronary artery disease invo lving [place] coronary artery of [place] heart without angina pectoris 11/14/2022 Overview (11/02/2023): Last Assessment & Plan: - nonobstructive disease - continue medical therapy with aspirin, statin, BB - denies angina Stridor 11/13/2022 Overview (11/02/2023): Last Assessment & Plan: Improved after last dilation in April 2023. Mild stridor noted today in clinic Discussed with his primary education program manager Dr. Sanches and will work to get [...] anxiety 04/06/2022 Ventricular tachycardia, unspecified 04/06/2022 Other maintenance advisor (current) drug therapy 3 Type 2 diabetes [...] upgraded from dual-chamber to biventricular device at [facility] 03/2022. Follows at [facility] Systolic dysfunction 03/13/2022 History of bradycardia 03/13/2022 Family history of prostate cancer 03/13/2022 Complete heart block 04/06/2020 Overview (11/02/2023): Added automatically from request for surgery [id number] Last Assessment & Plan: History of biventricular pacemaker that was upgraded to RETREAD TECHNICIAN defibrillator in September. Device interrogated today [...] starting statin -No need for ischemic evaluation help desk rep (current) use of o ral hypoglycemic drugs 04/06/2022 11/03/2023 Other specified diseases of upper respiratory tract 04/06/2022 11/03/2023 Presence of automatic (impla ntable) cardiac defibrillator 04/06/2022 02/05/2024 Cardiac pacemaker in situ 03/13/2022 Uncontrolled type 2 diabetes mellitus with hyperglycemia 04/06/2020 02/05/2024 Overview (11/02/2023): Last Assessment & Plan: Encounters Date Type Department Care Team Description 11/24/[address] [facility] [address] [place] [phone] Americo Stiles MA jan recalls 10/05/[address] [facility] [address] [place] [phone] Keven Horan MD CHART PREP 09/29/[address] [facility] [address] [place] [phone] Name, MD Yoandy Referral 09/29/[address] [facility] [address] [place] [phone] NameYoandy MD Hospital Follow-up 09/12/[address] [address] Americo Stiles [place] november recalls from Last [...] 07/27/2024 10:57 AM EDT Plan of Treatment Upcoming Encounters Date Type Department Care Team (Late st Contact Info) Description 02/20/2025 10:00 AM EST Office Visit [facility] [address] [place] [address] Name, MD Yoandy [address] [place] [address] Health Maintenance Due Date Last Done Comments CT Colonography 1955 Colonoscopy 1955 FIT 1955 FOBT 1955 Sigmoidoscopy 1955 Alcohol/Substance Use Screening 1967 Hepatitis B Vaccines (2 of 3 - 19+ 3-dose series) 12/24/2023 11/26/2023 Zoster Vaccines (2 of 2) 01/21/2024 11/26/2023 COVID-19 Vaccine (5 - Mixed Product risk season) 2024 02/05/2024, 02/25/2022, 02/25/2022, Additional history exists Depression Screening 10/19/2024 10/20/2023, 10/20/19 24 SDOH Screening 10/19/2024 10/20/2023 Influenza Vaccine (#1) 2024 12/16/2023, 2022 Lipid Panel 01/25/2025 01/26/2024, 03/07/2022, 06/23/2022, Additional history exists Diabetes: Hemoglobin A1C [...] complication, without long-term current use of insulin ([facility]) ALBUMIN, RANDOM URINE W/CREATININE Routine 04/14/2024 11:04 AM EST Type 2 diabetes mellitus with other circulatory complication, without long-term current use of insulin ([facility]) LIPID PANEL, STANDARD Routine 06/27/2022 9:53 AM EDT from Last 3 Months or Most Recently Relevant to Health Maintenance Results * POCT HGB A1C (07/27/2024 10:59 AM EDT) Hemoglobin A1C 5.7 4.0 - 6.0 % QC Media Lot # [id number] Lot# Expiration Date 42 Blood 07/27/2024 10:5 9 AM EDT us Yoandy Tillman MD POINT OF CARE TEST ENTER/EDIT OR DERABLES Final Result * Albumin, Random Urine W/Creatinine (04/14/2024 11:04 AM EST) Creatinine, Urine 109.08 mg/dL [facility] Microalbumin Urine 6.0 mg/L [facility] Microalbum Creatinine Ratio Ur 5.5 <30 ug/mg cr [facility] Comment:Albumin/Creatinine R atio Reference Ranges: Normal: < 30 ug/mg creatinine Microalbuminuria: 30 - 300 ug/mg creatinineClinical Albuminuria: > 300 ug/mg creatinine Urine (Urine, Random) 04/14/2024 11:04 AM EST 04/14/2024 1:04 PM EST us Yoandy Tillman MD LAB URINE ORDERABLES Final Resul t [facility] [address] [place] [address] [phone] * Lipid Panel, Standard (06/27/2022 9:53 AM EDT) Triglycerides 84 mg/dL [facility] Comment:Desirable Triglyceri de: less than [...] 190 mg/dL HDL Cholesterol 34 mg/dL [facility] Comment:Desirable HDL: great er than 40 mg/dL Note: This HDL assay may give artificially low results in patients with liver disease. 06/27/2022 9:53 AM EDT 06/27/2022 9:53 AM EDT [facility] External Provider LAB BLO OD ORDERABLES Final Result Performing Organization Address City/State/[facility] Co de Phone Number [facility] [address] [place] [address] [phone] from Last 3 Months or Most Recently Relevant to Health Maintenance Insurance [place] [address] [place] [id number] [facility] MEDEX CARE [facility] STANDARD Care Teams Nutrition And Dietetics Instructor Relationship Specialty Start Date End Date Name, MD Yoandy [address] [place] [phone] PCP - General Internal Medicine 10/19/23 Roberto Lyudmila 01/19/24
--- OUTSIDE RECORDS SUMMARY | 2024-11-28 12:26 | XMS_ITS | Clinical Summary ---
Author Organization [facility] Address [address] [facility] [address] [place] [address] Care Team Providers Care Ecommerce Project Manager Name Role Phone Glenn Herman MD Unavailable [phone] Yoandy Tillman MD Primary Care Provider [phone] Edward Handley [facility] Unavailable Unavailable Jennie Michelle PharmD Unavailable [phone] Allergies Active Allergy Reactions Criticality Noted Date [...] calcium carbonate 500 mg calcium (1,250 mg) tabletIndications :Heart transplant recipient (Multi-HCC) Take 1 tablet (1,250 mg) by mouth with breakfast and with evening meal. 180 tablet 3 10/21/19 25 4:43 PM EDT 01/18 Active pantoprazole (ProtoNix) 40 mg EC tabletIndications :Heart transplant recipient (Multi-HCC) Take 1 tablet (40 mg) by mouth before breakfast. Do not crush, chew, or split. 30 tablet 11 11/18/19 25 3:45 PM EDT 01/12 Active sulfamethoxazole- trimethoprim (Bactrim DS) 800-160 mg tabletIndications :Heart transplant recipient (Multi-HCC) Take 1 tablet by mouth once daily. 30 tablet 11 11/18/19 25 3:45 PM EDT 2023 Active alcohol swabs pads, medicatedIndicati ons:Heart transplant recipient (Multi-HCC) Swab prior to testing and insulin administration as directed 300 each 1 04/04/20 24 4:11 PM EST 2023 Active amoxicillin (Amoxil) 500 mg capsule Take 2,000 mg by mouth 1 (one) time if needed (dentist). 2023 Active insulin lispro (HumaLOG) 100 unit/mL injectionIndicati ons:Heart transplant recipient (Multi-HCC) Inject 6 Units under the skin before breakfast AND 12 Units before lunch AND 12 Units before evening meal. 15 mL 1 06/07/19 25 5:38 PM EST 2023 Active Additional Information Patient taking differently: Inject 5 Units under the skin before breakfast AND 6 Units before lunch AND 6 Units before evening meal., Reported on 11/07/2024 pravastatin (Pravachol) 80 mg tabletIndications :Heart transplant recipient (Multi-HCC) Take 1 tablet (80 mg) by mouth once daily. 30 tablet 11 2024 Active predniSONE (Deltasone) 5 mg tabletIndications :Heart transplant recipient (Multi-HCC) Take 1 tablet (5 mg) by mouth once daily. 30 tablet 5 11/18/19 25 3:45 PM EDT 12/27 Active insulin glargine (Lantus Solostar U-100 Insulin) 100 unit/mL (3 mL) injection Inject 30 units under the skin every evening. 15 mL 7 09/22/19 25 5:39 PM EDT 2024 Active Additional Information Patient taking differently: 22 UnitssubcutaneousEvery morning, Takes 22mg every am, Reason: taking 22 units every am, Reported on 11/07/2024 insulin lispro (HumaLOG KwikPen Insulin) 100 unit/mL injection Inject 6 units under the skin with breakfast, 12 units with lunch and 12 units with dinner. max 30 units/24 hours 30 mL 3 10/21/19 4:43 PM EDT 2024 Active Additional Information Patient not taking.Reported on 10/03/2024 levETIRAcetam (Keppra) 750 mg tabletIndications :Heart transplant recipient (Multi-HCC) Take 1 tablet (750 mg) by mouth twice daily. 60 tablet 2 11/18/19 3:45 PM EDT 12/27 Active Additional Information Patient not taking.Reason: per , accidentally forgot to fill box (likely off for ~2 weeks), Reported on 11/07/2024 pen needle, diabetic (BD Ultra-Fine Mini Pen Needle) 31 gauge x /16 needleIndications :Heart transplant recipient (Multi-HCC) Use with insulin pen as directed 100 each 2 11/18/19 3:45 PM EDT 2024 Active fluticasone (Flonase) 50 mcg/actuation nasal sprayIndications: Chronic cough Administer 1 spray into each nostril once daily. Shake gently. Before first use, prime pump. After use, clean tip and replace cap. 16 g 3 10/04/19 2:56 PM EDT 12/02 Active valGANciclovir (Valcyte) 450 mg tabletIndications :Other cytomegaloviral diseases (Multi-HCC) Take 1 tablet (450 mg) by mouth twice daily. Do not crush or chew. 180 tablet 10/07/19 2:12 PM EDT 01/02 Active mycophenolate (Cellcept) 500 mg tabletIndications :Heart transplant recipient (Multi-HCC) Take 1 tablet (500 mg) by mouth twice daily. Take in addition to 250mg cap, total dose 750mg twice daily. 60 tablet 11/18/19 3:45 PM EDT 10/06 Active tacrolimus (Prograf) 5 mg capsuleIndication s:Heart transplant recipient (Multi-HCC) Take 1 capsule (5 mg) by mouth twice daily. 60 capsule 11/18/19 3:45 PM EDT 10/17 Active tacrolimus (Prograf) 1 mg capsuleIndication s:Heart transplant recipient (Multi-HCC) Take 1 capsule (1 mg) by mouth twice daily. 60 capsule 11/18/19 25 3:45 PM EDT 11/07 Active famotidine (Pepcid) 20 mg tabletIndications :Heart transplant recipient (Multi-HCC) Take 1 tablet (20 mg) by mouth before evening meal. 30 tablet 2 11/09/19 25 4:01 PM EDT 02/05 Active mycophenolate (Cellcept) 250 mg capsuleIndication s:Heart transplant recipient (Multi-HCC) Take 1 capsule (250 mg) by mouth twice daily. Take in addition to 500mg tab, total dose 750mg twice daily. 60 capsule 11 11/09/19 25 4:01 PM EDT 11/07 Active cholecalciferol, vitamin D3, (Vitamin D-3) 25 MCG (1000 UT) tabletIndications :Heart transplant recipient (Multi-HCC) Take 1 tablet (1,000 Units) by mouth once daily. 30 tablet 11/18/19 25 3:45 PM EDT 11/15 Active aspirin 81 mg chewable tabletIndications :Heart transplant recipient (Multi-HCC) Chew 1 tablet (81 mg) once daily. 30 tablet 11/18/19 25 3:45 PM EDT 11/15 Active cholecalciferol, vitamin D3, (Vitamin D-3) 25 MCG (1000 UT) tabletIndications :Heart transplant recipient (Multi-HCC) Take 1 tablet (1,000 Units) by mouth once daily. 30 tablet 08/25/19 25 12:28 PM EDT 11/15 Discont inued(R eorder) aspirin 81 mg chewable tabletIndications :Heart transplant recipient (Multi-HCC) Chew 1 tablet (81 mg) once daily. 30 tablet 08/25/19 25 12:28 PM EDT 11/15 Discont inued(R eorder) mycophenolate (Cellcept) 250 mg capsuleIndication s:Heart transplant recipient (Multi-HCC) Take 1 capsule (250 mg) by mouth twice daily. Take in addition to 500mg tab, total dose 750mg twice daily. 60 capsule 11 10/07/19 2:12 PM EDT 11/07 Discont inued(R eorder) famotidine (Pepcid) 20 mg tabletIndications :Heart transplant recipient (Multi-HCC) Take 1 tablet (20 mg) by mouth before evening meal. 30 tablet 2 11/07 Discont inued(R eorder) Active Problems Problem Noted Date Diagnosed Date [...] 's report Asked patient to call his Block Captain regarding his increased weight/swelling for further recommendations. Last Assessment & Plan: reports he's up a few pounds from his baseline weight, worsening leg swelling over the last few days. Compliant with Torsemide - taking full dose per 's report Asked patient to call his Block Captain regarding his increased weight/swelling for further recommendations. [...] Encounters Date Type Department Care Team Description 11/21/2024 Telephone [facility] Cardiac Subspecialty [address] [phone] Kailyn Hess Appointment 11/16/2024 Telephone [facility] Cardiac Subspecialty [address] [facility] [address] [place] [phone] Kailyn Hess Appointment 11/15/2024 Refill [facility] Cardiology [address] [facility] [address] [place] [address] Pedro Kline MD Heart transplant recipient (Multi-HCC) 11/08/2024 Results Follow-Up [facility] Infectious Disease [address] [place] [address] Lena Penny NP 11/07/2024 1:00 PM EDT Office Visit [facility] Infectious Disease [address] [phone] Chi Barton MD Other cytomegaloviral diseases (Multi-HCC) (Primary Dx); Immunosuppressed status (Multi-HCC); Heart transplant recipient (Multi-HCC); Preventative health care; Other fatigue; Upper airway cough syndrome 11/07/2024 12:15 PM EDT Office Visit [facility] Cardiac Subspecialty [address] [phone] Dena Mitchell NP Heart transplant recipient (Multi-HCC) (Primary Dx); Essential hypertension, benign ; Mixed hyperlipidemia ; Type 2 diabetes mellitus with other specified complication, unspecified whether shelter insulin use (Multi-HCC); Subglottic stenosis; Sarcoidosis; Pulmonary nodules; Other cytomegaloviral diseases (Multi-HCC); Observed seizure-like activity (Multi-HCC) 11/07/2024 Travel 10/25/2024 Telephone [facility] Infectious Disease [address] [phone] Lena Penny NP 10/25/2024 Telephone [facility] Infectious Disease [address] [phone] Chi Barton MD req labs orders 10/24/2024 Telephone [facility] Infectious Disease [address] [phone] Lena Penny NP 10/17/2024 Orders Only [facility] Cardiac Subspecialty [address] [phone] Daniele Barnhart MD 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) 10/11/2024 Telephone [facility] Infectious Disease [address] [phone] Lena Penny NP 10/04/2024 Telephone [facility] Infectious Disease [address] [phone] Lena Penny NP 10/04/2024 Orders Only [facility] Cardiac Subspecialty [address] [phone] Daniele Barnhart MD Cytomegalovirus infection, unspecified cytomegaloviral infection type (Multi-HCC) 10/03/2024 2:31 PM EDT - 10/03/2024 11:59 PM EDT Hospital Encounter [facility] Radiology [address] [place] [address] Chronic cough Discharge Disposition: Home or self care 10/03/2024 11:00 AM EDT - 10/03/2024 2:30 PM EDT Hospital Encounter [facility] Cardiac Echo [address] [facility] [address] [place] [phone] Cytomegalovirus infection, unspecified cytomegaloviral infection type (Multi-HCC); Heart transplant recipient (Multi-HCC) Discharge Disposition: Home or self care 10/03/2024 9:40 AM EDT Office Visit [facility] Cardiac Subspecialty [address] [place] [phone] Daniele Barnhart MD Heart transplant recipient (Multi-HCC) (Primary Dx); Essential hypertension, benign ; Mixed hyperlipidemia ; Type 2 diabetes mellitus with other specified complication, unspecified whether shelter insulin use (Multi-HCC); Cytomegalovirus infection, unspecified cytomegaloviral infection type (Multi-HCC) 10/03/2024 9:30 AM EDT Office Visit [facility] Infectious Disease [address] [phone] Chi Barton MD Chronic cough (Primary Dx); Fever, unspecified fever cause; Heart transplant recipient (Multi-HCC); Immunosuppressed status (Multi-HCC); Other cytomegaloviral diseases (Multi-HCC); Weight loss; Preventative health care; Pancytopenia (CMS-HCC) 10/03/2024 Travel 09/29/2024 Telephone [facility] Cardiac Subspecialty [address] [phone] Provider, Generic External Data 09/29/2024 Refill [facility] Cardiac Subspecialty [address] [phone] Zackery Paluino, ISAURA Cytomegalovirus infection, unspecified cytomegaloviral infection type (Multi-HCC); Heart transplant recipient (Multi-HCC) 09/28/2024 9:30 AM EDT Telephone Visit [facility] [address] [facility] [address] [place] [phone] Radhames Espinoza MD Pulmonary sarcoidosis (Multi-HCC) (Primary Dx); Tracheal stenosis; Cardiac sarcoidosis (HHS-HCC) 09/19/2024 Refill [facility] Cardiology [address] [facility] [address] [place] [phone] Pedro Kline MD Heart transplant recipient (Multi-HCC) 09/19/2024 Refill [facility] Cardiology [address] [facility] [address] [place] [phone] Kong Lizarraga MD Heart transplant recipient (Multi-HCC) 09/19/2024 Telephone [facility] Cardiac Subspecialty [address] [phone] Mychart, Generic Provider 09/14/2024 10:15 AM EDT - 09/14/2024 11:59 PM EDT Hospital Encounter [facility] Pulmonary Function Lab [address] [facility] [address] [place] [phone] Cytomegalovirus infection, unspecified cytomegaloviral infection type (Multi-HCC); Sarcoidosis; Dyspnea, unspecified Discharge Disposition: Home or self care 09/12/2024 Telephone [facility] Cardiac Subspecialty [address] [phone] Livier Russ MD Abnormal Lab (Elevated Tac level ) 09/10/2024 Telephone [facility] [address] [place] [phone] Aracelis Acosta MD 09/09/2024 Telephone [facility] Cardiac Subspecialty [address] [phone] Bridger Hernandez MD Cough 09/05/2024 11:15 AM EDT Office Visit [facility] Infectious Disease [address] [phone] Donna Sanches MD Congenital cytomegalovirus infection (HHS-HCC) (Primary Dx); Heart transplant infection (Multi-HCC); Lymphopenia 09/05/2024 10:55 AM EDT Office Visit [facility] Cardiac Subspecialty [address] [phone] Bridger Hernandez MD Type 2 diabetes mellitus with other circulatory complication, unspecified whether shelter insulin use (Multi-HCC) (Primary Dx); Cytomegalovirus infection, unspecified cytomegaloviral infection type (Multi-HCC); Mixed hyperlipidemia ; Heart transplant recipient (Multi-HCC); Sarcoidosis; Immunosuppressed status (Multi-HCC) 09/05/2024 Telephone [facility] Pulmonary [address] [phone] Radhames Espinoza MD Change to telephone 09/05/2024 Travel from Last 3 Months Immunizations Immunization [...] Vaccine Formula 12+ (Deferred: 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 No 11/26/2023 Sex and Gender [...] Info) Description 12/19/2024 9:00 AM EDT Appointment [facility] Cardiac Echo [address] [facility] [address] [place] [address] 12/19/2024 11:00 AM EDT Office Visit [facility] Cardiac Subspecialty [address] [facility] [address] [place] [address] Bridger Hernandez MD [address] [facility] [address] [place] [address] 12/28/2024 10:45 AM EDT Appointment [facility] Imaging [address] [place] [address] 12/28/2024 11:30 AM EDT Office Visit [facility] Pulmonary [address] [place] [phone] Radhames Espinoza MD [facility] [address] [place] [address] 01/03/2025 10:30 AM EDT Hospital Encounter [facility] Cardiac Student Financial Aid Manager [address] [place] [phone] Zeina Maradiaga MD [address] [facility] [address] [place] [address] Other cytomegaloviral diseases (Multi-HCC); Heart transplant recipient (Multi-HCC) 01/03/2025 10:30 AM EDT - 01/03/2025 12:00 PM EDT Surgery [facility] Cardiac Student Financial Aid Manager [address] [place] [phone] Zeina Maradaiga MD [address] [facility] [address] [place] [address] Coronary angiography/RHC/bx; AHF slot @ 10:30am; page nubmers to JOSSY Mitchell [[id number] (CPT )] 02/22/2025 2:00 PM EST Office Visit [facility] Neurology [address] [place] [phone] Percy Kapoor MD [facility] [address] [place] [address] Health Maintenance Due Date Last Done Comments CT Colonography 1955 FIT 1955 FOBT 1955 Sigmoidoscopy 1955 Diabetes: Retinopathy Screening 1955 Diabetes: Foot Exam 06/18/1965 Hepatitis A Vaccines (1 of 2 - Risk 2-dose series) 06/18/1974 Medicare Annual Wellness (AWV) 06/04/2021 Hepatitis B Vaccines (2 of 3 - Risk 3-dose series) 12/24/2023 11/26/2023 Zoster Vaccines (2 of 2) 01/21/2024 11/26/2023 Depression Screening 04/06/2024 COVID-19 Vaccine (5 - Mixed Product risk 2023- season) 08/04/2024 02/05/2024, 02/25/2022, 02/25/2022, Additional history exists Influenza Vaccine (#1) 2024 12/16/2023, 2022 Diabetes: Hemoglobin A1C 01/26/202507/27/2 025, 05/26/2024, 05/26/2024, Additional history exists Diabetes: Urine Protein Screening 11/07/2025 11/07/2024, 11/26/2023, 01/12/2023, Additional history exists High Risk LDL 11/07/2025 11/07/2024, 09/06, 09/05/2024, Additional history exists Lipid Panel 11/07/2025 11/07/2024, 09/06, 09/05/2024, Additional history exists FIT-DNA 01/21/2026 01/21/2023, 01/04, 01/21/2023 DTaP/Tdap/Td Vaccines (2 - Td or Tdap) 05/30/2031 05/30/2021 Colonoscopy 06/18/2033 2023, 06/04, 2023 Colorectal Cancer Screening 06/18/2033 Pneumococcal Vaccine: 50+ Years Completed 01/12/2023, 05/30/2021 Hepatitis C Screening Completed 01/26/2024 , 11/24/2023, 11/24/2023, Additional history exists Diabetes Screening Discontinued 05/26/2024, 0 05/26/2024, 11/24/2023, Additional history exists HIB Vaccines Aged [...] this topic Medical Devices Implanted Type Area Clinic Md Associate Device Identifier Shelf Expiration Date Model / Serial / Lot Passenger Flagman-D [employer] Icd-10/02/2022 Implanted:09/05 (Quantity not on file) 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 ICD Chest [employer] Graft Hemashield Str 10x30 - [id number] Implanted:Qty: 1 on 12/22/2023 at [facility] Graft Right: Axilla GETINGE/MAQUET CARDIOVASCULAR 09/03/2028 [id number] / [id number] / Impella- 024 Implanted:12/05 (Quantity not on [...] COMPLETE 2D W/ SPECTRAL AND COLOR DOPPLER ([id number]) Routine 10/03/2024 11:42 AM EDT Heart transplant [...] Cytomegalovirus infection, unspecified cytomegaloviral infection type (Multi-HCC) HCV RNA, QUANTITATIVE, PCR (MONITORING) Routine [...] 32 11/09/2024 1:01 AM EDT [facility] 95% CONFIDENCE INTERVAL 95% CI:30.1-3 4.8 11/09/2024 1:01 AM EDT [facility] NEGATIVE PREDICTIVE VALUE 99.0% 11/09/2024 1:01 AM EDT [facility] POSITIVE PREDICTIVE VALUE 2.9% 11/09/2024 1:01 AM EDT [facility] TIME POST TX 0y 10m 12d 11/09/2024 1:01 AM EDT [facility] TEST COMMENTS ([facility]) <None Specified > 11/09/2024 1:01 AM EDT [facility] NOTES ([facility]) See Note 11/09/2024 1:01 AM EDT [facility] Comment: Interpretation of AlloMap score should be made using the information available at the following link: http://[email or web address].[email or web address] ricardo [employer]c AlloMap testing performed at [facility]. (CLIA No: [id number], CAP No: [id number]) Diesel Truck Mechanic: Axel Cartagena M.D. These AlloMap test results are displayed here for your convenience. The pdf AlloMap report is the official report. The following data chamorro on the Results Details page are intentionally left empty as they are not applicable to AlloMap testing: Abnormal Units TX DATE 4 11/09/2024 1:01 AM EDT [facility] ORDER ID [id number] 11/09/2024 1:01 AM EDT [facility] CENTER ORDER ID [id number] 11/09/2024 1:01 AM EDT [facility] WP ORDER ID <None Specified > 11/09/2024 1:01 AM EDT [facility] Blood Venous blood specimen / Unknown Venipuncture / Unknown 11/07/2024 2:20 PM EDT 11/07/2024 2:48 PM EDT us Dena Mitchell WIND FARM DESIGNER LAB BLOOD ORDERABLES Final Resu lt [facility] [address] [place] [address] * ALLOSURE HEART (11/07/2024 2:20 PM EDT) Only the most recent of3 resultswithin the time period is included. ALLOSURE SCORE < 0.04 % 11/09/2024 7:45 PM EDT [facility] TIME POST TX 0y 10m 12d 11/09/2024 7:45 PM EDT [facility] TEST COMMENTS (ASHK) <None Specified> 11/09/2024 7:45 PM EDT [facility] ([facility]) NOTES (ASHK) See Note 11/09/2024 7:45 PM [...] (2)(3) See the [facility] interpretation guide at [email or web address] for information on [facility], AlloSure Heart and [...] its performance characteristics were determined by the [facility] laboratory. The test has not been cleared or approved by the U.S. Food and Drug Administration. The laboratory is certified under the Clinical Laboratory Improvement Amendments of 1988 (CLIA '88) and accredited by the [employer] (CAP) as qualified to perform high complexity clinical laboratory testing. The contents of this report are confidential and intended solely for use by authorized personnel. AlloSure testing performed at [facility]. [address] [place] [id number] (CLIA No: [id number], CAP No: [id number]) Diesel Truck Mechanic: Axel Cartagena M.D. TRANSPLANTED ORGAN Heart 2024 7:45 PM EDT [facility] CLIENT SPECIMEN ID <None Specified> 11/09/2024 7:45 PM EDT [facility] TX DATE 12/28/2023 11/09/2024 7:45 PM EDT [facility] DONOR RELATION Unrelated 11/09/2024 7:45 PM EDT [facility] ORDER ID [id number] 11/09/2024 7:45 PM EDT [facility] CENTER ORDER ID [id number] 11/09/2024 7:45 PM EDT [facility] WP ORDER ID <None Specified> 11/09/2024 7:45 PM EDT [facility] Blood Venous blood specimen / Unknown Venipuncture / Unknown 11/07/2024 2:20 PM EDT 11/07/2024 2:49 PM EDT us Dnea Mitchell WIND FARM DESIGNER LAB BLOOD ORDERABLES Final Resu lt [facility] [address] [place] [address] * CMV DNA, Quantitative, RT-PCR (11/07/2024 2:17 [...] - 11/08/2024 2:15 PM EDT Performed at: [facility] [id number] Diesel Truck Mechanic: Iram Zambrano MD, Phone: [phone] Chi Barton MD LAB BLOOD ORDERABLES Edited Res ult - Final Performing Organization Address City/[facility]/ZIP Co de Phone Number [facility] [address] [place] [address], [facility] 1 * IgG (11/07/2024 2:16 PM EDT) Only the most recent of2 resultswithin the time period is included. IgG 760 603 - 1,613 mg/dL [facility] 1 Blood Venous blood specimen / Unknown 11/07/2024 2:16 PM EDT 11/07/2024 Narrative [facility] - 11/08/2024 6:15 AM EDT Performed at: [facility] [id number] Diesel Truck Mechanic: Iram Zambrano MD, Phone: [phone] Lena Penny NP LAB BLOOD ORDERABLES Fin al Result Performing Organization Address City/[facility]/ZIP Co de Phone Number [facility] [address] [place] [address], [facility] 1 * Cystatin C with eGFR (11/07/2024 2:15 PM EDT) Only the most recent of3 resultswithin the time period is included. Cystatin C 1.01 0.72 - 1.16 mg/L [facility] 1 eGFRcys 74 >59 mL/min/1.73 [facility] 1 Blood Venous blood specimen / Unknown 11/07/2024 2:15 PM EDT 11/07/2024 Narrative [facility] - 11/08/2024 6:45 AM EDT Performed at: - [address] [id number] Diesel Truck Mechanic: Iram Zambrano MD, Phone: [phone] Dena Mitchell NP LAB BLOOD ORDERABLES Final Resu lt [facility] [address] [place] [address], [facility] 1 * Tacrolimus level (11/07/2024 2:15 PM EDT) Only the most recent of4 resultswithin the time period is included. [facility] Tacrolimus, LC-MS/MS 5.8 3.0 - 20.0 ng/mL [facility] 1 Comment: Performed by LC-MS/MS. Reference intervals are based on trough collection. Optimal therapeutic ranges depend on time post-transplant, dosing regimen, organ type, and concomitant immunosuppression therapy. Results should be interpreted in conjunction with physical signs/symptoms of rejection/toxicity. This test was developed and its performance characteristics determined by [facility]. It has not been cleared or [...] [facility] - 11/08/2024 1:15 PM EDT Test(s) [id number] (FK506), Blood was developed and its performance characteristics determined by [facility]. It has not been cleared or approved by the Food and Drug Administration. Performed at: [address] [id number] Diesel Truck Mechanic: Jim Henning [facility], Phone: [phone] Dena Mitchell WIND FARM DESIGNER LAB BLOOD ORDERABLES Final Resu lt [facility] [address] [place] [address], [facility] 1 * (ABNORMAL) CBC and differential [...] 14.5 % [facility] 1 Comment:RDW-SD 44.7 fL 35.0 -51.0 Platelets 143(L) 150 - 400 K/uL [facility] [...] 0.0 % [facility] 1 Comment:NRBC Absolute 0.00 K /uL 0.00-2.00 Blood Venous blood specimen / Unknown 11/07/2024 2:15 PM EDT 11/07/2024 Narrative [facility] - 11/07/2024 4:15 PM EDT Performed at: [address] [place] [id number] Diesel Truck Mechanic: Jim Henning [facility], Phone: [phone] Dena Mitchell NP LAB BLOOD ORDERABLES Final Resu lt Performing Organization Address [facility] Co de Phone Number [facility] [address] [place] [address], [facility] 1 * Uric Acid (11/07/2024 2:15 [...] - 11/07/2024 4:45 PM EDT Performed at: [address] [place] [address] [id number] Diesel Truck Mechanic: Jim Henning [facility], Phone: [phone] Dena Mitchell NP LAB BLOOD ORDERABLES Final Resu lt Performing Organization Address City/[facility] Co de Phone Number [facility] [address] [place] [address], [facility] 1 * Phosphorus (11/07/2024 2:15 PM EDT) Only the most recent of3 resultswithin the time period is included. Phosphorus 3.2 2.4 - 4.9 mg/dL [facility] 1 Blood Venous blood specimen / Unknown 11/07/2024 2:15 PM EDT 11/07/2024 Narrative [facility] - 11/07/2024 4:45 PM EDT Performed at: [address] [place] [address] [id number] Diesel Truck Mechanic: Jim Henning [facility], Phone: [phone] Dena Mitchell NP LAB BLOOD ORDERABLES Final Resu lt Performing Organization Address [facility] Co de Phone Number [facility] [address] [place] [address], [facility] 1 * Magnesium (11/07/2024 2:15 PM EDT) Only the most recent of3 resultswithin the time period is included. Magnesium 1.7 1.6 - 2.6 mg/dL [facility] 1 Blood Venous blood specimen / Unknown 11/07/2024 2:15 PM EDT 11/07/2024 Narrative [facility] - 11/07/2024 4:45 PM EDT Performed at: [address] [place] [address] [id number] Diesel Truck Mechanic: Jim Henning [facility], Phone: [phone] Dena Mitchell NP LAB BLOOD ORDERABLES Final Resu lt Performing Organization Address [facility] Co de Phone Number [facility] [address] [place] [address], [facility] 1 * (ABNORMAL) Lactate dehydrogenase (11/07/2024 2:15 PM EDT) Only the most recent of3 resultswithin the time period is included. LDH 279(H) 110 - 250 U/L [facility] 1 Blood Venous blood specimen / Unknown 11/07/2024 2:15 PM EDT 11/07/2024 Narrative [facility] - 11/07/2024 4:45 PM EDT Performed at: [address] [place] [address] [id number] Diesel Truck Mechanic: Jim Henning [facility], Phone: [phone] Dena Mitchell NP LAB BLOOD ORDERABLES Final Resu lt Performing Organization Address [facility]/ZIP Co de Phone Number [facility] [address] [place] [address], [facility] 1 * CK (aka CPK) (11/07/2024 2:15 PM EDT) Only the most recent of3 resultswithin the time period is included. CK Total 46 41 - 331 U/L [facility] 1 Blood Venous blood specimen / Unknown 11/07/2024 2:15 PM EDT 11/07/2024 Narrative [facility] - 11/08/2024 8:15 AM EDT Performed at: [address] [id number] Diesel Truck Mechanic: Iram Zambrano MD, Phone: [phone] Dena Mitchell NP LAB BLOOD ORDERABLES Final Resu lt Performing Organization Address [facility] Co de Phone Number [facility] [address] [place] [address], [facility] 1 * Hepatic function panel (11/07/2024 2:15 PM EDT) Only the most recent of3 resultswithin the time period is included. Bilirubin, Direct 0.1 0.0 - 0.5 mg/dL [facility] 1 Blood Venous blood specimen / Unknown 11/07/2024 2:15 PM EDT 11/07/2024 Narrative [facility] - 11/07/2024 4:45 PM EDT Performed at: [address] [place] [address] [id number] Diesel Truck Mechanic: Jim Henning [facility], Phone: [phone] Dena Mitchell NP LAB BLOOD ORDERABLES Final Resu lt Performing Organization Address City/[facility] Co de Phone Number [facility] [address] [place] [address], [facility] 1 * Lipid panel (11/07/2024 2:15 [...] 5:45 AM EDT Performed at: 01 - [facility] [id number] Diesel Truck Mechanic: Iram Zambrano MD, Phone: [phone] us Dena Mitchell WIND FARM DESIGNER LAB BLOOD ORDERABLES Final Resu lt [facility] [address] [place] [address], [facility] 1 * (ABNORMAL) Comprehensive metabolic panel (11/07/2024 2:15 PM EDT) Only the most recent of4 resultswithin the time period is included. Glucose 144(H) 70 - 139 mg/dL [facility] [...] 11/07/2024 4:45 PM EDT Performed at: - [address] [id number] Diesel Truck Mechanic: Jim Henning [facility], Phone: [phone] us Dena Mitchell NP LAB BLOOD ORDERABLES Final Resu lt [facility] [address] [place] [address], [facility] 1 * XR CHEST 2 VIEWS (10/03/2024 2:53 PM EDT) Anatomical Region Laterality Modality Chest Computed Radiogr aphy 10/03/2024 3:51 PM EDT Impressions 10/03/2024 4:00 PM EDT No acute pulmonary abnormality. APPROVED BY STAFF RADIOLOGIST: Luisito Emmanuel MD 10/03/2024 4:00 PM EDT Narrative 10/03/2024 4:00 PM EDT NAME: MATTHEW AVILA : 1955 AGE: 69 years GENDER: Male ORD PHYS: LENAALLEN PENNY LOCATION: [facility] 10/03/2024 2:53 PM EDT IMG36 (XR CHEST 2 VIEWS) [id number] EXAMINATION: XR CHEST 2 VIEWS HISTORY: cough [...] GENDER: Male ORD PHYS: LENA PENNY LOCATION: [facility] 10/03/2024 2:53 PM EDT IMG36 (XR CHEST 2 VIEWS) [id number] EXAMINATION: XR CHEST 2 VIEWS HISTORY: cough [...] MD 10/03/2024 4:00 PM EDT us Lena Anderson Sebastian WIND FARM DESIGNER IMG XR PROCEDURES Final Result * TTE COMPLETE 2D W/ SPECTRAL AND COLOR DOPPLER (26875) (10/03/2024 11:42 AM EDT) Anatomical Region Laterality Modality Other 10/03/2024 11:1 6 AM EDT Narrative 10/03/2024 4:50 PM EDT Cardiovascular Imaging Hemodynamic Laboratory [address] [place] [address] Transthoracic Echocardiogram Name: MATTHEW TORO Study Date: 10/03/2024 11:16 AM : 1955 Gender: Male Age: 69 yrs Ethnicity: OTHER Patient Location: [facility] Referring Physician: BRIDGER HERNANDEZ Performed By: Jewell Treviño Ordering Physician: BRIDGER HERNANDEZ Reason For Study: cardiac transplantation Height: 68 in Weight: 137 lb BSA: 1.7 m2 BP: 117/73 mmHg CPT/Quality/Location Complete 2D TTE with spectral and color Doppler (48885). Location performed: Department. MMode/2D Measurements & Calculations [...] Peña MD - 10/03/2024 [facility] [address] [place] [address] TransthoracicEchocardiogram Name: MATTHEW TORO Study Date: 1:16 AM : 1955 Gender: Male Age: 69 yrs Ethnicity: OTHER Patient Location: [facility]^^^[facility] Referring Physician: BRIDGER HERNANDEZ Performed By: Jewell Treviño Ordering Physician: BRIDGER HERNANDEZ Reason For Study: cardiac transplantation Height: 68 in Weight: 137 lb BSA: 1.7 m2 BP:117/73 mmHg CPT/Quality/Location Complete 2D TTE with spectral and color Doppler (35536). Locationperformed: Department. MMode/2D Measurements & Calculations IVSd: [...] MD - 10/01/2024 See attached scanned result us Daysi Fink MD PFT ORDERABLES Final Resu lt [facility] [address] * Hepatitis C Virus RNA, Quantitative, RT-PCR (01/26/2024 10:30 AM EDT) HCV RNA by RT-PCR [facility] 01/27/2024 2:18 PM EDT [facility] Comment:Not Detected HCV RNA Viral Load, log [facility] 01/27/2024 2:18 PM EDT [facility] Comment:Not Detected HCV RNA Viral Load, Interp Not Detected Not Detected [facility] 01/27/2024 2:18 PM EDT [facility] Blood Venous blood specimen / Unknown Venipuncture / Unknown 01/26/2024 10:30 AM EDT 01/26/2024 11:13 AM EDT Narrative [facility] - 01/27/2024 2:18 PM EDT This test was performed using the [employer] Alinity m HCV assay, performed on the [employer] Alinity m instrument. The lower limit of quantification is 12 IU/mL. Chi Barton MD LAB BLOOD ORDERABLES Final Resu lt [facility] [address] [place] [address], * Albumin, Urine, Random (Microalbumin Random, Including Creatinine) (11/26/2023 1:50 PM EDT) Albumin, urine (INT/EXT) <1.2 mg/dL 11/26/2023 2:44 PM EDT [facility] Creatinine, urine, random (INT/EXT) 47.40 24.00 - 392.00 mg/dL 11/26/2023 2:44 PM EDT [facility] Albumin/Creatini ne ratio 11/26/2023 2:44 PM EDT [facility] Comment:Unable to calculate due to below or above Analytical Measurement Range. Urine Urine specimen / Unknown Non-blood Collection / Unknown 11/26/2023 1:50 PM EDT 11/26/2023 1:50 PM EDT Pedro Kline MD LAB URINE ORDERABLES Maral l Result Performing Organization Address City/[facility]/ZIP Co de Phone Number [facility] [address] [place] [address], * (ABNORMAL) Hemoglobin A1c (11/24/2023 12:42 AM EDT) HEMOGLOBIN A1C % (INT/EXT) 8.0(H) <5.6 % 11/24/2023 1:11 AM EDT [facility] Comment: Non-diabetic: < 6.0 % Diabetic: Goal: < 7.0% Action suggested: > 8.0% Blood Venous blood specimen / Unknown Venipuncture / Unknown 11/24/2023 12:42 AM EDT 11/24/2023 12:51 AM EDT Pedro Kline MD LAB BLOOD ORDERABLES Maral l Result [facility] [address] [place] [address], from Last 3 Months or Most Recently Relevant to Health Maintenance Insurance MEDICARE PART A AND B [facility] A AND B HEALTH SAFETY NET MEDEX Advance Directives Documents on File Type Date Recorded Patient Supervisor Electric Motor Testing Expl anation Advance Directives and Living Will 11/25/2023 Lloyd Ahmadi Health Care Proxy * Full Code (Latest Code Status on File) Date Activated Date Inactivated Comments 11/24/2023 12:16 AM 01/20/2024 1:17 PM Healthcare Agents on File Name Relationship Healthcare Agent Relationship Communication Aleisha Ahmadi Spouse Health Care Agent [email or web address] Lloyd Mandel Son First Alte rnate Health Care Agent Care Teams Ecommerce Project Manager Relationship Specialty Start Date End Date Name, MD [address] [place] [address] PCP - General Tub Washer 11/12/23 Glenn Herman MD [address] [place] [address] Referring Physician Cardiology 11/12/23 Edward Handley, Juan Inspector [facility] 12/31/23 Jennie Michelle, PharmD [address] [place] [address] Pharmacist Pharmacy 01/27/24
--- OUTSIDE RECORDS SUMMARY | 2024-11-28 12:26 | XMS_ITS | Clinical Summary ---
Author Organization [employer] [facility] Address [facility] [employer] [address] [place] [address] Phone Care Team Providers Care Hydraulic Barker Operator Name Role Phone Name, Yoandy LUGO Primary Care Provider [phone] Social History Tobacco Use Types Packs/Day Years [...] VACCINE (1 - 2023-2 5 season) 2023 INFLUENZA VACCINE (#1) 2024 RSV VACCINE (1 - 1-dose 75+ series) [...] file Insurance MEDICARE PART A & B [facility] [address] [place], [place] [id number] MEDICARE PART A & B Member Subscriber Plan / Payer (Ef fective 2020-Present) Name:Matthew Toro Member ID:[id number] Relation to Subscriber:Self Name:Matthew Toro Subscriber ID:[id number] Payer ID:[id number] Group ID:Not on file Type:Medicare Address: [facility] Support Your [employer] [facility] [address] [place] [address] [place] [address] [facility] [address] [place], [place] [id number] MEDICARE PART A & B Member Subscriber Plan / Payer (Ef fective 2020-Present) Name:Matthew Toro Member ID:[id number] Relation to Subscriber:Self Name:Matthew Toro Subscriber ID:[id number] Payer ID:[id number] Group ID:Not on file Type:Medicare Address: [facility] Support Your App [address] [address] [facility] FULL Member Subscriber Plan / Payer (Ef fective 2023-Present) Name:Matthew Toro Relation to Subscriber:Self Name:Matthew Toro Payer ID:Not on file Group ID:Not on file Type:Medicaid Address: [address] MEDICARE PART A & B [employer] SAFETY NET FULL MEDICARE PART A & B [facility] SAFETY NET FULL Member Subscriber Plan / Payer (Ef fective 2023-Present) Name:Matthew Toro Relation to Subscriber:Self Name:Avila Margarita Matthew Donny Payer ID:Not on file Group ID:Not on file Type:Medicaid Address[address] [place] [place] [id number] [facility] FULL B Care Teams Hydraulic Barker Operator Relationship Specialty Start Date End Date Name, MD [address] [place] [address] PCP - General Internal Medicine 11/02/23 Additional Source Comments The information contained in this document represents components of the legal health record. It is not the complete legal health record.[facility]
[2024-11-28 12:44] LABS: Alanine Aminotransferase 27 U/L (0-40); Albumin Level 4.3 g/dL (3.5-5.0); Alkaline Phosphatase 49 U/L (39-117); Anion Gap 12 (12-20); Aspartate Amino Transferase 46 U/L (5-37); Blood Urea Nitrogen 14 mg/dL (9-16); Calcium 9.2 mg/dL (8.4-10.2); Carbon Dioxide 28 mmol/L (22-29); Chloride 107 mmol/L (96-108); Estimated Glomerular Filt Rate 54; Magnesium 1.9 mg/dL (1.6-2.6); Potassium 4.5 mmol/L (3.3-5.1); Sodium 142 mmol/L (135-145); Total Protein 6.2 g/dL (6.5-8.0)
[2024-11-29 12:34] LABS: Tacrolimus Prograf 7.1 mcg/L
[2024-11-29 14:43] LABS: CMV DNA Qn PCR 1.73 Log IU/mL (NOT DETECTED)
== END 2024-11-28 11:01 | disposition home or self-care (01) ==
LOC: HO.LAB 11:00
PROVIDERS: Visit Provider Internal Medicine Cardiovascular Disease
DX: Z94.1 Heart transplant status (principal)
CPT/HCPCS: 36415; 80053; 80197; 82248; 83735; 84100; 85025; 87497

== ENCOUNTER 2024-12-08 10:45 | Outpatient (REF) | payer MEDICARE, SELFPAY ==
--- OUTSIDE RECORDS SUMMARY | 2024-12-08 12:22 | XMS_ITS | Clinical Summary ---
Author Organization [facility] Address [address] [facility] [address] [place] [address] Care Team Providers Care Community Service Representative Name Role Phone Glenn Herman MD Unavailable [phone] Yoandy Tillman MD Primary Care Provider [phone] Edward Handley [facility] Unavailable Unavailable Jennie Michelle PharmD Unavailable [phone] Allergies Active Allergy Reactions Criticality Noted Date [...] 16 g 3 10/04/19 2:56 PM EDT 2024 Active valGANciclovir (Valcyte) 450 mg tabletIndications :Other [...] by mouth once daily. 30 tablet 11 08/25/19 25 12:28 PM EDT 11/15 Discont inued(R eorder) aspirin 81 mg chewable tabletIndications :Heart transplant recipient (Multi-HCC) Chew 1 tablet (81 mg) once daily. 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 S/p multiple dilations in the past. Able to pass a 7.0 ETT, but no larger. 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 Compliant with Torsemide - taking full dose per 's report Asked patient to call his Hospitality Specialist regarding his increased weight/swelling for further recommendations. Last Assessment & Plan: reports he's up a few pounds from his baseline weight, worsening leg swelling over the last few days. Compliant with Torsemide - taking full dose per 's report Asked patient to call his Hospitality Specialist regarding his increased weight/swelling for further recommendations. [...] Encounters Date Type Department Care Team Description 12/02/2024 Telephone [facility] Patient Access [address] [place] [address] Bruce Hussein-Jose 11/21/2024 Telephone [facility] Cardiac Subspecialty [address] [phone] Kailyn Hess Appointment 11/16/2024 Telephone [facility] Cardiac Subspecialty [address] [phone] Kailyn Hess Appointment 11/15/2024 Refill [facility] Cardiology 800 [facility] [address] [place] [address] Pedro Kline MD Heart transplant recipient (Multi-HCC) 11/08/2024 Results Follow-Up [facility] Infectious Disease [address] [phone] Lena Penny NP 11/07/2024 1:00 PM EDT Office Visit [facility] Infectious Disease [address] [phone] Chi Barton MD Other cytomegaloviral diseases (Multi-HCC) (Primary Dx); Immunosuppressed status (Multi-HCC); Heart transplant recipient (Multi-HCC); Preventative health care; Other fatigue; Upper airway cough syndrome 11/07/2024 12:15 PM EDT Office Visit [facility] Cardiac Subspecialty [address] [phone] Dena Mitchell NP Heart transplant recipient (Multi-HCC) (Primary Dx); Essential hypertension, benign ; Mixed hyperlipidemia ; Type 2 diabetes mellitus with other specified complication, unspecified whether computer terminal operator insulin use (Multi-HCC); Subglottic stenosis; Sarcoidosis; Pulmonary nodules; Other cytomegaloviral diseases (Multi-HCC); Observed seizure-like activity (Multi-HCC) 11/07/2024 Travel 10/25/2024 Telephone [facility] Infectious Disease [address] [phone] Lena Penny NP 10/25/2024 Telephone [facility] Infectious Disease [address] [phone] Chi Barton MD req labs orders 10/24/2024 Telephone [facility] Infectious Disease [address] [phone] Lena Penny NP 10/17/2024 Orders Only [facility] Cardiac Subspecialty [address] [phone] Daniele Barnhart MD 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) 10/11/2024 Telephone [facility] Infectious Disease [address] [phone] Lena Penny ELECTRIC SPOT WELDER 10/04/2024 Telephone [facility] Infectious Disease [address] [phone] Lena Penny ELECTRIC SPOT WELDER 10/04/2024 Orders Only [facility] Cardiac Subspecialty [address] [phone] Daniele Barnhart MD Cytomegalovirus infection, unspecified cytomegaloviral infection type (Multi-HCC) 10/03/2024 2:31 PM EDT - 10/03/2024 11:59 PM EDT Hospital Encounter [facility] Radiology [address] [place] [address] Chronic cough Discharge Disposition: Home or self care 10/03/2024 11:00 AM EDT - 10/03/2024 2:30 PM EDT Hospital Encounter [facility] Cardiac Echo [address] [facility] [address] [place] [phone] Cytomegalovirus infection, unspecified cytomegaloviral infection type (Multi-HCC); Heart transplant recipient (Multi-HCC) Discharge Disposition: Home or self care 10/03/2024 9:40 AM EDT Office Visit [facility] Cardiac Subspecialty [address] [phone] Daniele Barnhart MD Heart transplant recipient (Multi-HCC) (Primary Dx); Essential hypertension, benign ; Mixed hyperlipidemia ; Type 2 diabetes mellitus with other specified complication, unspecified whether computer terminal operator insulin use (Multi-HCC); Cytomegalovirus infection, unspecified cytomegaloviral infection type (Multi-HCC) 10/03/2024 9:30 AM EDT Office Visit [facility] Infectious Disease [address] [phone] Chi Barton MD Chronic cough (Primary Dx); Fever, unspecified fever cause; Heart transplant recipient (Multi-HCC); Immunosuppressed status (Multi-HCC); Other cytomegaloviral diseases (Multi-HCC); Weight loss; Preventative health care; Pancytopenia (CMS-HCC) 10/03/2024 Travel 09/29/2024 Telephone [facility] Cardiac Subspecialty [address] [phone] Provider, Generic External Data 09/29/2024 Refill [facility] Cardiac Subspecialty [address] [phone] Zackery Paulino, ISAURA Cytomegalovirus infection, unspecified cytomegaloviral infection type (Multi-HCC); Heart transplant recipient (Multi-HCC) 09/28/2024 9:30 AM EDT Telephone Visit [facility] Pulmonary 260 [facility] 3rd [place] [address] Radhames Espinoza MD Pulmonary sarcoidosis (Multi-HCC) (Primary Dx); Tracheal stenosis; Cardiac sarcoidosis (HHS-HCC) 09/19/2024 Refill [facility] Cardiology [address] [facility] [address] [place] [phone] ePdro Kline MD Heart transplant recipient (Multi-HCC) 09/19/2024 Refill [facility] Cardiology [address] [facility] [address] [place] [phone] Kong Lizarraga MD Heart transplant recipient (Multi-HCC) 09/19/2024 Telephone [facility] Cardiac Subspecialty [address] [phone] Mychart, Generic Provider 09/14/2024 10:15 AM EDT - 09/14/2024 11:59 PM EDT Hospital Encounter [facility] Pulmonary Function Lab [address] [facility] [address] 5[address] Floor Room [address] [place] [phone] Cytomegalovirus infection, unspecified cytomegaloviral infection type (Multi-HCC); Sarcoidosis; Dyspnea, unspecified Discharge Disposition: Home or self care 09/12/2024 Telephone [facility] Cardiac Subspecialty [address] [phone] Livier Russ MD Abnormal Lab (Elevated Tac level ) 09/10/2024 Telephone [facility] Cardiac Echo 800 [facility] [address] [place] [phone] Aracelis Acosta MD 09/09/2024 Telephone [facility] Cardiac Subspecialty [address] [phone] Bridger Hernandez MD Cough from Last 3 Months Immunizations Immunization Administration Dates Next Due COVID-19 Pfizer Monovalent 01/10/2021,12/14/2020 Comirnaty COVID-19 Vaccine 12 years + 02/05/2024 Hep B, adult 11/26/2023 Influenza, High-dose Seasona l, Quadrivalent, Preservative Free 01/12/2023 Influenza, trivalent, adjuvanted 12/16/2023 [employer] COVID-19 Vaccine Biva lent Booster 12+ 02/25/2022 Pneumococcal Conjugate PCV 13 05/30/2021 Pneumococcal Conjugate Pcv 20 01/12/2023 RSV, bivalent, protein subun it RSVpreF, diluent reconstituted, 0.5 mL, PF 11/25/2023 Spikevax COVID-19 Vaccine Formula 12+ (Deferred: Not available from licensed mental health professional - Per pharmacy vaccine is out of [...] Info) Description 12/19/2024 9:00 AM EDT Appointment [facility] Cardiac Echo [address] [facility] [address] [place] [address] 12/19/2024 11:00 AM EDT Office Visit [facility] Cardiac Subspecialty [address] [facility] 6th [place] [address] Bridger Hernandez MD [address] [facility] [address] [place] [address] 12/28/2024 10:45 AM EDT Appointment [facility] Imaging [address] [place] [address] 12/28/2024 11:30 AM EDT Office Visit [facility] Pulmonary 260 [facility] [address] 3rd [place] [address] Radhames Espinoza MD [facility] [address] [place] [address] 01/03/2025 10:30 AM EDT Hospital Encounter [facility] Cardiac Senior Interior Designer [address] [place] [phone] Zeina Maradiaga MD 800 [facility] [address] [place] [address] Other cytomegaloviral diseases (Multi-HCC); Heart transplant recipient (Multi-HCC) 01/03/2025 10:30 AM EDT - 01/03/2025 12:00 PM EDT Surgery [facility] Cardiac Senior Interior Designer [address] [place] [phone] Zeina Maradiaga MD 800 [facility] [address] [place] [address] Coronary angiography/RHC/bx; AHF slot @ 10:30am; page nubmers to JOSSY Mitchell [11804 (CPT )] 02/22/2025 2:00 PM EST Office Visit [facility] Neurology 260 [place] [phone] Percy Kapoor MD [facility] [address] [place] [address] Health Maintenance Due Date Last Done Comments CT Colonography 1955 FIT 1955 FOBT 1955 Sigmoidoscopy 1955 Diabetes: Retinopathy Screening 1955 Diabetes: Foot Exam 06/18/1965 Hepatitis A Vaccines (1 of 2 - Risk 2-dose series) 06/18/1974 Medicare Annual Wellness (AWV) 06/04/2021 Hepatitis B Vaccines (2 of 3 - Risk 3-dose series) 12/24/2023 11/26/2023 Zoster Vaccines (2 of 2) 01/21/2024 11/26/2023 Depression Screening 04/06/2024 Diabetes: Urine Protein Screening 11/25/2024 11/26/2023, 01/12/2023, 01/12/2023 COVID-19 Vaccine (5 - Mixed Product risk season) 2024 02/05/2024, 02/25/2022, 02/25/2022, Additional history exists Influenza Vaccine (#1) 2024 12/16/2023, 2022 Diabetes: Hemoglobin A1C 01/26/2025 025, 05/26/2024, 05/26/2024, Additional history exists High Risk LDL 11/07/2025 [...] this topic Medical Devices Implanted Type Area Alloy Weigher Device Identifier Shelf Expiration Date Model / Serial / Lot Residential Youth Counselor-D [employer] Icd-10/02/2022 Implanted:09/05 (Quantity not on file) ALUMNI SECRETARY-D ICD Chest [employer] Graft Hemashield Str 10x30 - [id number] Implanted:Qty: 1 on 12/22/2023 at [facility] Graft Right: Axilla GETINGE/MAQUET CARDIOVASCULAR 09/03/2028 [id number] / [id number] / Impella- 024 Implanted:12/05 (Quantity not on [...] COMPLETE 2D W/ SPECTRAL AND COLOR DOPPLER ([id number]) Routine 10/03/2024 11:42 AM EDT Heart transplant recipient (Multi-HCC) TACROLIMUS LEVEL Routine 09/14/2024 12:5 0 PM EDT Heart transplant recipient (Multi-HCC) CBC W/DIFF Routine 09/14/2024 12:50 PM EDT Heart transplant recipient (Multi-HCC) COMPREHENSIVE METABOLIC PANEL Routine 09/14/2024 12:50 PM EDT Heart transplant recipient (Multi-HCC) VT PULMONARY STRESS TESTING Routine 09/14/2024 11:20 AM EDT Sarcoidosis Dyspnea, unspecified HCV RNA, QUANTITATIVE, PCR (MONITORING) Routine 01/26/2024 10:30 AM EDT ALBUMIN, URINE, RANDOM (INCLUDING CREATININE) Routine 11/26/2023 1:50 PM EDT HEMOGLOBIN A1C Routine 11/24/2023 12:42 AM EDT from Last 3 Months or Most Recently Relevant to Health Maintenance Results * ALLOMAP HEART (11/07/2024 2:20 PM EDT) Only the most recent of2 resultswithin the time period is included. ALLOMAP SCORE - HEART 32 11/09/2024 1:01 AM EDT [facility] 95% CONFIDENCE INTERVAL 95% CI:30.1-3 4.8 11/09/2024 1:01 AM EDT [facility] NEGATIVE PREDICTIVE VALUE 99.0% 11/09/2024 1:01 AM EDT [facility] POSITIVE PREDICTIVE VALUE 2.9% 11/09/2024 1:01 AM EDT [facility] TIME POST TX 0y 10m 12d 11/09/2024 1:01 AM EDT [facility] TEST COMMENTS ([facility]) <None Specified > 11/09/2024 1:01 AM EDT [facility] NOTES ([facility]) See Note 11/09/2024 1:01 AM EDT [facility] Comment: Interpretation of AlloMap score should be made using the information available at the following link: http://www.allomap.com AlloMap testing performed at [facility] (CLIA No: [id number], CAP No: [id number]) Correction Officer: Axel Cartagena M.D. These AlloMap test results are displayed here for your convenience. The pdf AlloMap report is the official report. The following data chamorro on the Results Details page are intentionally left empty as they are not applicable to AlloMap testing: Abnormal Units TX DATE 4 11/09/2024 1:01 AM EDT [facility] ORDER ID [id number] 11/09/2024 1:01 AM EDT [facility] CENTER ORDER ID [id number] 11/09/2024 1:01 AM EDT [facility] WP ORDER ID <None Specified > 11/09/2024 1:01 AM EDT [facility] Blood Venous blood specimen / Unknown Venipuncture / Unknown 11/07/2024 2:20 PM EDT 11/07/2024 2:48 PM EDT Dena Mitchell NP LAB BLOOD ORDERABLES Final Resu lt [facility] [address] [place], [place] [id number] * ALLOSURE HEART (11/07/2024 2:20 PM EDT) Only the most recent of2 resultswithin the time period is included. ALLOSURE SCORE < 0.04 % 11/09/2024 7:45 PM EDT [facility] TIME POST TX 0y 10m 12d 11/09/2024 7:45 PM EDT [facility] TEST COMMENTS (ASHK) <None Specified> 11/09/2024 7:45 PM EDT [facility] NOTES (ASHK) See Note 11/09/2024 7:45 PM EDT [facility] Comment: INTERPRETATION OF RESULTS Instructions for Interpreting [...] (2)(3) See the HeartCare interpretation guide at [email or web address] for information on HeartCare, AlloSure Heart and [...] more information about AlloSure Heart, please visit [email or web address]. (1)Nik et al., J Heart Lung Transplant 2024; (2)Nik et al., Am J Transplant 2019; (3)Data on file for patients <15 years old. The AlloSure Heart Donor-Derived Cell-Free DNA Test was developed and its performance characteristics were determined by the [facility]. The test has not been cleared or approved by the U.S. Food and Drug Administration. The laboratory is certified under the Clinical Laboratory Improvement Amendments of 1988 (CLIA '88) and accredited by the [employer] (CAP) as qualified to perform high complexity clinical laboratory testing. The contents of this report are confidential and intended solely for use by authorized personnel. AlloSure testing performed at [facility]. [address] [place] [address] (CLIA No: [id number], CAP No: [id number]) Correction Officer: Axel Cartagena M.D. TRANSPLANTED [employer]GAN Heart 2024 7:45 PM EDT [facility] CLIENT SPECIMEN ID <None Specified> 11/09/2024 7:45 PM EDT [facility] TX DATE 12/28/2023 11/09/2024 7:45 PM EDT [facility] DONOR RELATION Unrelated 11/09/2024 7:45 PM EDT [facility] ORDER ID [id number] 11/09/2024 7:45 PM EDT [facility] CENTER ORDER ID [id number] 11/09/2024 7:45 PM EDT [facility] WP ORDER ID <None Specified> 11/09/2024 7:45 PM EDT [facility] Blood Venous blood specimen / Unknown Venipuncture / Unknown 11/07/2024 2:20 PM EDT 11/07/2024 2:49 PM EDT us Dena Mitchell ELECTRIC SPOT WELDER LAB BLOOD ORDERABLES Final Resu lt [facility] [address] [place] [id number] * CMV DNA, Quantitative, RT-PCR (11/07/2024 2:17 PM EDT) Only the most recent of3 resultswithin the time period is included. CMV [...] - 11/08/2024 2:15 PM EDT Performed at: [facility] [id number] Correction Officer: Iram Zambrano MD, Phone: [phone] Chi Barton MD LAB BLOOD ORDERABLES Edited Res ult - Final Performing Organization Address City/[facility] Co de Phone Number [facility] [address] [place] [address], [facility] 1 * IgG (11/07/2024 2:16 PM EDT) Only the most recent of2 resultswithin the time period is included. IgG 760 603 - 1,613 mg/dL [facility] 1 Blood Venous blood specimen / Unknown 11/07/2024 2:16 PM EDT 11/07/2024 Narrative [facility] - 11/08/2024 6:15 AM EDT Performed at: [facility] [id number] Correction Officer: Iram Zambrano MD, Phone: [phone] Lena Penny NP LAB BLOOD ORDERABLES Fin al Result Performing Organization Address City/[facility] Co de Phone Number [facility] [address] [place] [address], [facility] 1 * Cystatin C with eGFR (11/07/2024 2:15 PM EDT) Only the most recent of2 resultswithin the time period is included. Cystatin C 1.01 0.72 - 1.16 mg/L [facility] 1 eGFRcys 74 >59 mL/min/1.73 [facility] 1 Blood Venous blood specimen / Unknown 11/07/2024 2:15 PM EDT 11/07/2024 Narrative [facility] - 11/08/2024 6:45 AM EDT Performed at: - [facility] [id number] Correction Officer: Iram Zambrano MD, Phone: [phone] Dena Mitchell NP LAB BLOOD ORDERABLES Final Resu lt Performing Organization Address [facility] Co de Phone Number [facility] [address] [place] [address], [facility] 1 * Tacrolimus level (11/07/2024 2:15 PM EDT) Only the most recent of3 resultswithin the time period is included. [facility] Tacrolimus, LC-MS/MS 5.8 3.0 - 20.0 ng/mL [facility] 1 Comment: Performed by LC-MS/MS. Reference intervals are based on trough collection. Optimal therapeutic ranges depend on time post-transplant, dosing regimen, organ type, and concomitant immunosuppression therapy. Results should be interpreted in conjunction with physical signs/symptoms of rejection/toxicity. This test was developed and its performance characteristics determined by [facility]. It has not been cleared or [...] [facility] - 11/08/2024 1:15 PM EDT Test(s) 355160-[id number] (FK506), Blood was developed and its performance characteristics determined by [facility]. It has not been cleared or approved by the Food and Drug Administration. Performed at: 01 - [address], [place] [id number] Correction Officer: Jim Henning [facility], Phone: [phone] Dena Mitchell NP LAB BLOOD ORDERABLES Final Resu lt Performing Organization Address [facility] Co de Phone Number [facility] [address] [place] [address], [facility] 1 * (ABNORMAL) CBC and differential (11/07/2024 2:15 PM EDT) Only the most recent of3 resultswithin the time period is included. WBC [...] - 11/07/2024 4:15 PM EDT Performed at: [address] [place] [id number] Correction Officer: Jim Henning [facility], Phone: [phone] Dena Mitchell NP LAB BLOOD ORDERABLES Final Resu lt Performing Organization Address [facility] de Phone Number [facility] [address] [place] [address], [facility] 1 * Uric Acid (11/07/2024 2:15 PM EDT) Only the most recent of2 resultswithin the time period is included. Uric Acid 4.8 2.6 - 8.0 mg/dL [facility] 1 Comment: Although the reference interval for men extends up to 8.0 mg/dL, patients with gout may benefit from uric acid levels <6.0 mg/dL. Blood Venous blood specimen / Unknown 11/07/2024 2:15 PM EDT 11/07/2024 Narrative [facility] - 11/07/2024 4:45 PM EDT Performed at: [address] [place] [id number] Correction Officer: Jim Henning [facility], Phone: [phone] Dena Mitchell NP LAB BLOOD ORDERABLES Final Resu lt Performing Organization Address [facility] de Phone Number [facility] [address] [place] [address], [facility] 1 * Phosphorus (11/07/2024 2:15 PM EDT) Only the most recent of2 resultswithin the time period is included. Phosphorus 3.2 2.4 - 4.9 mg/dL [facility] 1 Blood Venous blood specimen / Unknown 11/07/2024 2:15 PM EDT 11/07/2024 Narrative [facility] - 11/07/2024 4:45 PM EDT Performed at: [address] [place] [id number] Correction Officer: Jim Henning [facility], Phone: [phone] Dena Landonkiya [place] LAB BLOOD ORDERABLES Final Resu lt Performing Organization Address City/[facility]/ZIP Co de Phone Number [facility] [address] [place] [address], [facility] 1 * Magnesium (11/07/2024 2:15 PM EDT) Only the most recent of2 resultswithin the time period is included. Magnesium 1.7 1.6 - 2.6 mg/dL [facility] 1 Blood Venous blood specimen / Unknown 11/07/2024 2:15 PM EDT 11/07/2024 Narrative [facility] - 11/07/2024 4:45 PM EDT Performed at: [address] [place] [id number] Correction Officer: Jim Henning [facility], Phone: [phone] Dena Mitchell ELECTRIC SPOT WELDER LAB BLOOD ORDERABLES Final Resu lt Performing Organization Address [facility] Co de Phone Number [facility] [address] [place] [address], [facility] 1 * (ABNORMAL) Lactate dehydrogenase (11/07/2024 2:15 PM EDT) Only the most recent of2 resultswithin the time period is included. LDH 279(H) 110 - 250 U/L [facility] 1 Blood Venous blood specimen / Unknown 11/07/2024 2:15 PM EDT 11/07/2024 Narrative [facility] - 11/07/2024 4:45 PM EDT Performed at: [address] [place] [id number] Correction Officer: Jim Henning [facility], Phone: [phone] Dena Mitchell ELECTRIC SPOT WELDER LAB BLOOD ORDERABLES Final Resu lt Performing Organization Address [facility] Co de Phone Number [facility] [address] [place] [address], [facility] 1 * CK (aka CPK) (11/07/2024 2:15 PM EDT) Only the most recent of2 resultswithin the time period is included. CK Total 46 41 - 331 U/L [facility] 1 Blood Venous blood specimen / Unknown 11/07/2024 2:15 PM EDT 11/07/2024 Narrative [facility] - 11/08/2024 8:15 AM EDT Performed at: Lab[address] [id number] Correction Officer: Iram Zambrano MD, Phone: [phone] Dena Mitchell NP LAB BLOOD ORDERABLES Final Resu lt Performing Organization Address [facility] Co de Phone Number [facility] [address] [place] [address], [facility] 1 * Hepatic function panel (11/07/2024 2:15 PM EDT) Only the most recent of2 resultswithin the time period is included. Pathologist [facility] Bilirubin, Direct 0.1 0.0 - 0.5 mg/dL [facility] 1 Blood Venous blood specimen / Unknown 11/07/2024 2:15 PM EDT 11/07/2024 Narrative [facility] - 11/07/2024 4:45 PM EDT Performed at: [address] [place] [id number] Correction Officer: Jim Henning [facility], Phone: [phone] Dena Mitchell NP LAB BLOOD ORDERABLES Final Resu lt Performing Organization Address City/[facility]/ZIP Co de Phone Number [facility] [address] [place] [address], [facility] 1 * Lipid panel (11/07/2024 2:15 PM EDT) Only the most recent of2 resultswithin the time period is included. Cholesterol [...] 5:45 AM EDT Performed at: 01 - [facility] [id number] Correction Officer: Iram Zambrano MD, Phone: [phone] us Dena Mitchell NP LAB BLOOD ORDERABLES Final Resu lt [facility] [address] [place] [address], [facility] 1 * (ABNORMAL) Comprehensive metabolic panel (11/07/2024 2:15 PM EDT) Only the most recent of3 resultswithin the time period is included. Pathologist [facility] Glucose 144(H) 70 - 139 mg/dL [facility] [...] 4:45 PM EDT Performed at: 01 - [facility] [address] [address], [place], [place] [id number] Correction Officer: Jim Henning [facility], Phone: [phone] us Dena Mitchell [employer]LECTRIC [employer]OT [employer]ELDER LAB BLOOD ORDERABLES Final Resu lt [facility] [address] [place] [address], [facility] 1 * XR CHEST 2 VIEWS [...] Male ORD PHYS: LENA Barron ZOHAIB LOCATION: [facility] 10/03/2024 2:53 PM EDT IMG36 (XR CHEST 2 VIEWS) [id number] EXAMINATION: XR CHEST 2 VIEWS HISTORY: cough [...] GENDER: Male ORD PHYS: LENA PENNY LOCATION: [facility] 10/03/2024 2:53 PM EDT IMG36 (XR CHEST 2 VIEWS) [id number] EXAMINATION: XR CHEST 2 VIEWS HISTORY: cough [...] 10/03/2024 4:00 PM EDT us Lena Penny ELECTRIC SPOT WELDER IMG XR PROCEDURES Final Result * TTE COMPLETE 2D W/ SPECTRAL AND COLOR DOPPLER (18674) (10/03/2024 11:42 AM EDT) Anatomical Region Laterality Modality Other 10/03/2024 11:1 6 AM EDT Narrative 10/03/2024 4:50 PM EDT [facility] [address] [place] [address] Transthoracic Echocardiogram Name: MATTHEW TORO Study Date: 10/03/2024 11:16 AM : 1955 Gender: Male Age: 69 yrs Ethnicity: OTHER Patient Location: [facility] Referring Physician: BRIDGER HERNANDEZ Performed By: Jewell Treviño Ordering Physician: BRIDGER HERNANDEZ Reason For Study: cardiac transplantation Height: 68 in Weight: 137 lb BSA: 1.7 m2 BP: 117/73 mmHg CPT/Quality/Location Complete 2D TTE with spectral and color Doppler (15500). Location performed: Department. MMode/2D Measurements & Calculations [...] Peña MD - 10/03/2024 [facility] [address] [place] [address] TransthoracicEchocardiogram Name: MARGARITA AVILA MATTHEW DONNY Study Date: 1:16 AM : 1955 Gender: Male Age: 69 yrs Ethnicity: OTHER Patient Location: [facility] Referring Physician: BRIDGER HERNANDEZ Performed By: Jewell Treviño Ordering Physician: BRIDGER HERNANDEZ Reason For Study: cardiac transplantation Height: 68 in Weight: 137 lb BSA: 1.7 m2 BP:117/73 mmHg CPT/Quality/Location Complete 2D TTE with spectral and color Doppler (34470). Locationperformed: Department. MMode/2D Measurements & Calculations IVSd: [...] Fink MD PFT ORDERABLES Final Resu lt [facility] [address] [place] [address], * Hepatitis C Virus RNA, Quantitative, RT-PCR (01/26/2024 10:30 AM EDT) HCV RNA by RT-PCR [facility] 01/27/2024 2:18 PM EDT [facility] Comment:Not Detected HCV RNA Viral Load, log [facility] 01/27/2024 2:18 PM EDT [facility] Comment:Not Detected HCV RNA Viral Load, Interp Not Detected Not Detected [facility] 01/27/2024 2:18 PM EDT [facility] Blood Venous blood specimen / Unknown Venipuncture / Unknown 01/26/2024 10:30 AM EDT 01/26/2024 11:13 AM EDT Narrative [facility] - 01/27/2024 2:18 PM EDT This test was performed using the Lemon Curve HCV assay, performed on the Lemon Curve instrument. The lower limit of quantification is 12 IU/mL. Chi Barton MD LAB BLOOD ORDERABLES Final Resu lt [facility] [address] * Albumin, Urine, Random (Microalbumin Random, Including Creatinine) (11/26/2023 1:50 PM EDT) Albumin, urine (INT/EXT) <1.2 mg/dL 11/26/2023 2:44 PM EDT [facility] Creatinine, urine, random (INT/EXT) 47.40 24.00 - 392.00 mg/dL 11/26/2023 2:44 PM EDT [facility] Albumin/Creatini ne ratio 11/26/2023 2:44 PM EDT [facility] Comment:Unable to calculate due to below or above Analytical Measurement Range. Urine Urine specimen / Unknown Non-blood Collection / Unknown 11/26/2023 1:50 PM EDT 11/26/2023 1:50 PM EDT ePdro Kline MD LAB URINE ORDERABLES Maral l Result Performing Organization Address City/[facility]/ZIP Co de Phone Number [facility] [address] * (ABNORMAL) Hemoglobin A1c (11/24/2023 12:42 AM EDT) HEMOGLOBIN A1C % (INT/EXT) 8.0(H) <5.6 % 11/24/2023 1:11 AM EDT [facility] Comment: Non-diabetic: < 6.0 % Diabetic: Goal: < 7.0% Action suggested: > 8.0% Blood Venous blood specimen / Unknown Venipuncture / Unknown 11/24/2023 12:42 AM EDT 11/24/2023 12:51 AM EDT Pedro Kline MD LAB BLOOD ORDERABLES Maral l Result Performing Organization Address City/[facility]/ZIP Co de Phone Number [facility] [address] from Last 3 Months or Most Recently Relevant to Health Maintenance Insurance [facility] A AND B HEALTH SAFETY NET [facility]EX Advance Directives Documents on File Type Date Recorded Patient Process Control Operator Expl anation Advance Directives and Living Will 11/25/2023 Lloyd Ahmadi Health Care Proxy * Full Code (Latest Code Status on File) Date Activated Date Inactivated Comments 11/24/2023 12:16 AM 01/20/2024 1:17 PM Healthcare Agents on File Name Relationship Healthcare Agent Relationship Communication Aleisha Ahmadi Spouse Health Care Agent [email or web address] Lloyd Mandel Son First Alte rnate Health Care Agent Care Teams Community Service Representative Relationship Specialty Start Date End Date Name, MD Yoandy [address] [place] [address] PCP - General Professional Development Instructor 11/12/23 Glenn Herman MD [address] [place] [address] Referring Physician Cardiology 11/12/23 Edward Handley, professor of astronomy Water Treatment Operator Pharmacy 12/31/23 Jennie Michelle, PharmD [address] [place] [address] Pharmacist Pharmacy 01/27/24
--- OUTSIDE RECORDS SUMMARY | 2024-12-08 12:22 | XMS_ITS | Encounter Summary ---
Author Organization [email or web address] Address [address] [facility] 7t [place] [address] Care Team Providers Care Change Management Director Name Role Phone Name, Yoandy LUGO Primary Care Provider [phone] Name, Yoandy LUGO Primary Care Provider [phone] Reason for Visit * Reason Onset Date Comments FYI 10/01/2022 Encounter Details Date Type Department Care Team ([facility] st Contact Info) Description 10/01/2022 Telephone [facility] MEDICINE [address] [place], [place] [phone] Name, MD Yoandy [address] [place] [address] FYI Social History Tobacco Use Types Packs/Day [...] 10/01/2022 3:26 PM EDT Tc from spouse [facility] facility that patient during their vacation in [place] had two Heart Attacks and is currently hospitalized since 09/15/2022 at the [facility] documented in this encounter Plan of Treatment Upcoming Encounters Date Type Department Care Team (Late st Contact Info) Description 02/20/2025 10:00 AM EST Office Visit [facility] MEDICINE [address] [place] [address] Name, MD Yoandy [address] [place] [address] documented as of this encounter Visit Diagnoses Not on filedocumented in this encounter Care Teams Change Management Director Relationship Specialty Start Date End Date Name, MD Yoandy [address] [place] [address] PCP - General Family Medicine 01/18/21 06/04/23 Name, MD Yoandy [address] [place] [address] PCP - General Internal Medicine 10/19/23 [facility] 01/19/24 documented as of this encounter
--- OUTSIDE RECORDS SUMMARY | 2024-12-08 12:22 | XMS_ITS | Encounter Summary ---
Author Organization [facility] Address [address] [facility] [address] [place] [address] Care Team Providers Care Overlay Operator Name Role Phone Glenn Herman MD Unavailable [phone] NameYoandy MD Primary Care Provider Edward Handley [facility] Unavailable Unavailable Jennie Michelle PharmD Unavailable Reason for Visit * Reason Onset Date Comments req labs orders 10/25/2024 Encounter Details Date Type Department Care Team (Late st Contact Info) Description 10/25/2024 Telephone [facility] Infectious Disease [address] [facility] 3rd [place] [address] Chi Barton MD [address] [facility] [address] [place] [address] req labs orders Social History Tobacco Use Types Packs/Day Years [...] place to sleep or slept in a skilled nursing (including now)? No 11/26/2023 Sex and Gender [...] of Assessment Author Yes 11/26/2023 11:17 AM EDBethany Hood RN * Do you have serious difficulty dressing or bathing? Answer Date of Assessment Author No 11/26/2023 11:17 AM EDT Bethany Washington RN * Because of a physical, mental, or emotional condition, do you have difficulty doing errands such asvisiting the doctor's office or shopping? Answer Date of Assessment Author No 11/26/2023 11:17 AM EDT Bethany Washington RN documented as of this encounter Mental Status * Because of a physical, mental, or emotional condition, do you have serious difficulty concentrating, remembering, or making decisions? Answer Entry Date Author Yes 11/26/2023 11:17 AM EDT Bethany Washington RN documented in this encounter Miscellaneous Notes * Telephone Encounter - Lena Cortes NP - 10/25/2024 1:05 PM EDT I'll amend my standing orders to include Tacrolimus. Lena Cortes NP * Telephone Encounter - Yecenia Pang - 10/25/2024 10:39 AM EDT Dalia calling she stats that Labs call her that her needs labs, Dalia wants to know if they send the labs order for her please call Dalia # [phone], thank you. documented in this encounter Plan of Treatment Upcoming Encounters Date Type Department Care Team (Late st Contact Info) Description 12/19/2024 9:00 AM EDT Appointment [facility] Cardiac Echo [address] [place] [address] 12/19/2024 11:00 AM EDT Office Visit [facility] Cardiac Subspecialty [address] [facility] 6th [place] [address] Juan Hutchinson MD [address] [place] [address] 12/28/2024 10:45 AM EDT Appointment [facility] Imaging [address] [place] [phone] 12/28/2024 11:30 AM EDT Office Visit [facility] Pulmonary [address] [facility] [address] 3rd [place] [phone] Radhames Espinoza MD [facility] [address] [place] [address] 01/03/2025 10:30 AM EDT Hospital Encounter [facility] Cardiac Database Modeler [address] [place] [phone] Zeina Maradiaga MD [address] [facility] [address] [place] [address] Other cytomegaloviral diseases (Multi-HCC); Heart transplant recipient (Multi-HCC) 01/03/2025 10:30 AM EDT - 01/03/2025 12:00 PM EDT Surgery [facility] Cardiac Database Modeler [address] [place] [phone] Zeina Maradiaga MD 800 [facility] [address] [place] [address] Coronary angiography/RHC/bx; F slot @ 10:30am; page nubmers to JOSSY Mitchell [63965 (CPT )] 02/22/2025 2:00 PM EST Office Visit [facility] Neurology [address] [place] [phone] Percy Kapoor MD [address] [address] documented as of this encounter Visit Diagnoses Not on filedocumented in this encounter Care Teams Overlay Operator Relationship Specialty Start Date End Date Name, MD Yoandy [address] [place] [address] PCP - General Launch Check Out 11/12/23 Glenn Herman MD [address] [place] [address] Referring Physician Cardiology 11/12/23 Edward Handley CPhT Acting Professor Pharmacy 12/31/23 Jennie Michelle, PharmD [address] [place] [address] Pharmacist Pharmacy 01/27/24 documented as of this encounter
--- OUTSIDE RECORDS SUMMARY | 2024-12-08 12:22 | XMS_ITS | Clinical Summary ---
Author Organization [employer] [facility] Address [facility] [place] [address] [place] [address] Phone Care Team Providers Care Tactical Debriefer Name Role Phone Name, Yoandy LUGO Primary Care Provider Social History Tobacco Use Types Packs/Day Years [...] file Insurance MEDICARE PART A & B [facility] [address] [place], [place] [id number] [place] A [place] [id number] [facility] [address] [place], [place] [id number] MEDICARE PART A & B [facility] FULL Member Subscriber Plan / Payer (Ef fective 2023-Present) Name:Matthew Toro Relation to Subscriber:Self Name:Matthew Toro Payer ID:Not on file Group ID:Not on file Type:Medicaid Address: [address] MEDICARE PART A & B [employer] SAFET[employer] NET FULL MEDICARE PART A & B [facility] SAFETY NET FULL Member Subscriber Plan / Payer (Ef fective 2023-Present) Name:Matthew Toro Relation to Subscriber:Self Name:Avila Margarita Matthew Donny Payer ID:Not on file Group ID:Not on file Type:Medicaid [address] [place] [id number] [facility] F[facility] B Care Teams Tactical Debriefer Relationship Specialty Start Date End Date Name, MD Yoandy [address] [place] [address] PCP - General Internal Medicine 11/02/23 Additional Source Comments The information contained in this document represents components of the legal health record. It is not the complete legal health record.[facility]
--- OUTSIDE RECORDS SUMMARY | 2024-12-08 12:22 | XMS_ITS | Encounter Summary ---
Author Organization [facility] Address 800 [facility] [address] [place] [address] Care Team Providers Care Sewing Machine Repairer Name Role Phone Glenn Herman MD Unavailable [phone] NameYoandy MD Primary Care Provider [phone] Edward Handley shellfish checker Unavailable Unavailable Jennie Michelle PharmD Unavailable [phone] Encounter Details Date Type Department Care Team (Late st Contact Info) Description 11/08/2024 Results Follow-Up [facility] Infectious Disease [address] [facility] 3rd [place] [address] Lena Cortes, STRATEGIC ACCOUNT DIRECTOR [address] [place] [address] Social History Tobacco Use Types Packs/Day Years [...] place to sleep or slept in a penitentiary (including now)? No 11/26/2023 Sex and Gender [...] documented in this encounter Miscellaneous Notes * Result Encounter Note - Lena Cortes NP - 11/08/2024 3:30 PM EDT Hi All We stopped valcyte today on Mr. Urias. Spoke with his they will continue with weekly monitoring for the next 8 weeks. Technically only needs CMV DNA but has CBC and CMP. DO you want me to keep theseor cancel CBC and CMP? Lena Cortes NP documented in this encounter Plan of Treatment Upcoming Encounters Date Type Department Care Team (Late st Contact Info) Description 12/19/2024 9:00 AM EDT Appointment [facility] Cardiac Echo [address] [facility] [address] [place] [address] 12/19/2024 11:00 AM EDT Office Visit [facility] Cardiac Subspecialty [address] [facility] 6th [place] [address] Juan Hutchinson MD [address] [place] [address] 12/28/2024 10:45 AM EDT Appointment [facility] Imaging [address] [place] [address] 12/28/2024 11:30 AM EDT Office Visit [facility] Pulmonary [address] [facility] [address] 3rd [place] [phone] Radhames Espinoza MD [address] [address] 01/03/2025 10:30 AM EDT Hospital Encounter [facility] Cardiac Clearing Hand [address] [place] [address] Zeina Maradiaga MD [address] [address] Other cytomegaloviral diseases (Multi-HCC); Heart transplant recipient (Multi-HCC) 01/03/2025 10:30 AM EDT - 01/03/2025 12:00 PM EDT Surgery [facility] Cardiac Clearing Hand [address] [place] [phone] Zeina Maradiaga MD [address] [place] [address] Coronary angiography/RHC/bx; AHF slot @ 10:30am; page nubmers to JOSSY Mitchell [[id number] (CPT )] 02/22/2025 2:00 PM EST Office Visit [facility] Neurology [address] [place] [phone] Percy Kapoor MD [address] [address] documented as of this encounter Visit Diagnoses Not on filedocumented in this encounter Care Teams Sewing Machine Repairer Relationship Specialty Start Date End Date Name, MD Yoandy [address] [place] [address] PCP - General Corporate Claims Examiner 11/12/23 Glenn Herman MD [address] [place] [address] Referring Physician Cardiology 11/12/23 Edward Handley, Juan Custom Seamstress Pharmacy 12/31/23 Jennie Michelle, PharmD [address] [place] [address] Pharmacist Pharmacy 01/27/24 documented as of this encounter
--- OUTSIDE RECORDS SUMMARY | 2024-12-08 12:22 | XMS_ITS | Clinical Summary ---
Author Organization [employer] Address [address] [facility] 7t [place] [address] Care Team Providers Care Corrective Therapy Aide Teacher Name Role Phone Name, Yoandy LUGO Primary Care Provider [phone] Allergies Active Allergy Reactions Criticality Noted Date [...] bedtime. 4 Active Sharps Container (BD Sharps Impregnation Operator) misc For disposal of needles and lancets [...] into each nostril Once per day. 5 Active pen needle 31G x 5 mm [...] endurance 11/06 Non-restorable tooth 11/19/2023 History of [place] (myocardial infarction) 10/20/2023 Memory problem 10/20/2023 Shortness [...] 's report Asked patient to call his Metal Stud Framer regarding his increased weight/swelling for further recommendations. Dysphagia 02/08/2023 Positive colorectal cancer screening using Colog uard test 02/04/2023 Overview (11/03/2023): Negative Colonoscopy 06/2023: urgical Pathology Exam - Order: [id number] Component 4 mo ago Case Report Surgicals Case: [id number] Authorizing Provider: Donny Encarnacion Collected: 2023 0843 MD Eugene Ordering Location: [facility] GI Lab Received: 2023 1011 [...] IHC, or special stains are performed at [facility], [place] [address]. Resulting Agency [facility] Specimen Collected: 06/19/23 08:43 Performed by: [facility] Last Resulted: 06/23/23 17:27 [...] were answered. Coronary artery disease invo lving [place] coronary artery of [place] heart without angina pectoris 11/14/2022 Overview (11/02/2023): Last Assessment & Plan: - nonobstructive disease - continue medical therapy with aspirin, statin, BB - denies angina Stridor 11/13/2022 Overview (11/02/2023): Last Assessment & Plan: Improved after last dilation in April 2023. Mild stridor noted today in clinic Discussed with his primary performance test architect Dr. Verónica and will work to get him set [...] upgraded from dual-chamber to biventricular device at [facility] 03/2022. Follows at [facility] cardi Systolic dysfunction 03/13/2022 History of bradycardia 03/13/2022 Family history of prostate cancer 03/13/2022 Complete heart block 04/06/2020 Overview (11/02/2023): Added automatically from request for surgery [id number] Last Assessment & Plan: History of biventricular pacemaker that was upgraded to SALES REPRESENTATIVE CONSULTANT defibrillator in September. Device interrogated today with [...] starting statin -No need for ischemic evaluation buttermaker (current) use of o ral hypoglycemic drugs 04/06/2022 11/03/2023 Other specified diseases of upper respiratory tract 04/06/2022 11/03/2023 Presence of automatic (impla ntable) cardiac defibrillator 04/06/2022 02/05/2024 Cardiac pacemaker in situ 03/13/2022 Uncontrolled type 2 diabetes mellitus with hyperglycemia 04/06/2020 02/05/2024 Overview (11/02/2023): Last Assessment & Plan: Encounters Date Type Department Care Team Description 11/24/2024 Telephone [facility] [address] [place] [phone] Americo Stiles MA jan recalls 10/05/2024 Telephone [facility] [address] [place] [address] 68073 Keven Horan MD CHART PREP 09/29/2024 Telephone [facility] [address] [place] [address]474 Yoandy Tillman MD Referral 09/29/2024 Telephone [facility] [address] [place] [address] Yoandy Tillman MD Hospital Follow-up 09/12/2024 Telephone [facility] [address] [place] [phone] Americo Stiles [place] november recalls from Last [...] with others, in a hotel, in a snf, living outside on the street, on a [...] the past 12 months, has t he [employer], gas, oil or water company threatened to [...] Description 02/20/2025 10:00 AM EST Office Visit [facility] [address] [place] [phone] Name, MD Yoandy [address] [place] [address] Health Maintenance Due Date Last Done Comments CT Colonography 1955 Colonoscopy 1955 FIT 1955 Sigmoidoscopy 1955 Alcohol/Substance Use Screening 1967 Hepatitis B Vaccines (2 of 3 - 19+ 3-dose series) 12/24/2023 11/26/2023 Zoster Vaccines (2 of 2) 01/21/2024 11/26/2023 FOBT 01/22/2024 01/21/2023 Depression Screening 10/19/2024 10/20/2023, 10/20/19 24 SDOH Screening 10/19/2024 10/20/2023 COVID-19 Vaccine (5 - Mixed Product risk season) 2024 02/05/2024, 02/25/2022, 02/25/2022, Additional history exists Influenza Vaccine (#1) 2024 12/16/2023, 2022 Lipid Panel 01/25/2025 01/26/2024, 03/2 07/2022, 06/23/2022, Additional history exists Diabetes: Hemoglobin A1C [...] complication, without long-term current use of insulin ([facility]) ALBUMIN, RANDOM URINE W/CREATININE Routine 04/14/2024 11:04 AM EST Type 2 diabetes mellitus with other circulatory complication, without long-term current use of insulin ([facility]) LIPID PANEL, STANDARD Routine [...] 11:04 AM EST) Creatinine, Urine 109.08 mg/dL [facility] Microalbumin Urine 6.0 mg/L [facility] Microalbum Creatinine Ratio Ur 5.5 <30 ug/mg cr [facility] Comment:Albumin/Creatinine R atio Reference Ranges: Normal: < 30 ug/mg creatinine Microalbuminuria: 30 - 300 ug/mg creatinineClinical Albuminuria: > 300 ug/mg creatinine Urine (Urine, Random) 04/14/2024 11:04 AM EST 04/14/2024 1:04 PM EST us Yoanyd Tillman MD LAB URINE ORDERABLES Final Resul t [facility] [address] [place] [address] [phone] * Lipid Panel, Standard (06/27/2022 9:53 AM EDT) Triglycerides 84 mg/dL [facility] Comment:Desirable Triglyceri de: less than 150 mg/dLBorderline High Triglyceride 150-199 mg/dLHigh Triglyceride: 200-499 mg/dLVery High Triglyceride: greater than or equal to 5OO mg/dL Cholesterol 154 mg/dL [facility] Comment:Desirable Cholestero l: less than 200 mg/dLBorderline High Cholesterol: 200-239 mg/dLHigh Cholesterol: greater than 239 mg/dL LDL Cholesterol Calculated 104 mg/dl [facility] Comment:Desirable LDL: less than 100 mg/dLNear Optimal/Above Optimal LDL: 110- 129 mg/dLBorderline High LDL: 130-159 mg/dLHigh LDL: 160-189 mg/dLVery High LDL: greater than or equal to 190 mg/dL HDL Cholesterol 34 mg/dL [facility] Comment:Desirable HDL: great er than 40 mg/dL Note: This HDL assay may give artificially low results in patients with liver disease. 06/27/2022 9:53 AM EDT 06/27/2022 9:53 AM EDT [facility] External Provider LAB BLO OD ORDERABLES Final Result Performing Organization Address City/State/[facility] Co de Phone Number [facility] [address] [place] [address] [phone] from Last 3 Months or Most Recently Relevant to Health [place] [id number] [facility] MEDEX CARE [facility] STANDARD Care Teams Corrective Therapy Aide Teacher Relationship Specialty Start Date End Date Name, MD Yoandy [address] [place] [phone] PCP - General Internal Medicine 10/19/23 Roberto Lyudmila 01/19/24
--- OUTSIDE RECORDS SUMMARY | 2024-12-08 12:22 | XMS_ITS ---
Author Organization [facility] Address [address] [facility], [address] [place] [address] Care Team Providers Care Aerospace Project Engineer Name Role Phone Glenn Herman MD Unavailable [phone] NameYoandy MD Primary Care Provider [phone] Edward Handley landing signal officer Unavailable Unavailable Jennie Michelle PharmD Unavailable [phone] Transplant Episode Heart Recipient [facility] ([place], [place]) - [facility] Organ Received: Heart Transplanted on 12/28/2023 Marked as Active Follow-up on 12/28/2023 Heart CoordinatorZackery Paulino RN Phone: N/A Fax: N/A Email: N/A [place] Organ Diagnosis Organ Primary Contributory Heart Dilated Myopathy: Idiopathic Infection History Noted Survival Infection Treatment Organism Resolved 06/30/2024 185 days Cytomegalovirus infection (Multi-HCC) 05/04/2024 128 days COVID Donor Information Organ ABO Source Meets Risk Criteria HLA Match Mismatches Cross Match Heart Transplanted B DBD No A: B: DR: Heart Donor Serology Results Anti-CMV CMV IgG: Positive HBsAg HBsAg: Negative Anti-HBcAb HBC Total: Negative HBsAb HBsAb: Not Done HBV DNA No results on file Anti-HCV HCV: Negative Anti-HIV I/II HIV-1: Negative Anti-HTLV I/II HTLV: Not Done RPR/VDRL RPR: Negative EBV IgG EBV VCA IgG: Positive EBV IgM EBV VCA IgM: Negative EBNA No results on file Toxoplasma Toxoplasma IgG: Negative SARS CoV-2 No results on file Care Team Name Role Phone Fax Email Zackery Paulino RN Order Planner N/A N/A N/A Glenn Herman MD Referring Physician [phone] N/A Izaiah Watt MD Director Human Services [phone] N/A Events Post-Transplant Pre-Transplant Admitted: 11/23/2023 Referred: 11/09/2023 Transplanted: 12/28/2023 Evaluation began: 4 Discharged: 01/14/2024 Committee: 12/21/2023 Center waitlisted: 4 Appointments (11/07/2024 - 01/07/2025) When With Visit Type Description 11/07/2024 Cardiology - Dina Mitchell Follow Up Specialty Appointment Heart transplant recipient (Multi-HCC) (Primary Dx); Essential hypertension, benign ; Mixed hyperlipidemia ; Type 2 diabetes mellitus with other specified complication, unspecified whether assisted insulin use (Multi-HCC); Subglottic stenosis; Sarcoidosis; Pulmonary nodules; Other cytomegaloviral diseases (Multi-HCC); Observed seizure-like activity (Multi-HCC) 12/19/2024 Cardiology Dobutamine Stres s Echo 12/19/2024 Cardiology Vianca Reyes Follow Up Appointment 12/28/[address] Chest without Contrast
--- OUTSIDE RECORDS SUMMARY | 2024-12-08 12:22 | XMS_ITS | Encounter Summary ---
Author Organization [facility] Address [address] [facility] [address] [place] [address] Care Team Providers Care Customer Account Administrator Name Role Phone Glenn Herman MD Unavailable [phone] Yoandy Tillman MD Primary Care Provider Edward Handley [facility] Unavailable Unavailable Jennie Michelle PharmD Unavailable [phone] Reason for Visit * Reason Comments Med Change Request Encounter Details Date Type Department Care Team (Late st Contact Info) Description 03/17/2024 Refill [facility] Cardiac Subspecialty [address] [facility] [address] [place] [address] Charlie Barry MD [address] [place] [address] 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) Social History Tobacco Use Types Packs/Day Years [...] place to sleep or slept in a detention (including now)? No 11/26/2023 Sex and Gender [...] of Assessment Author No 11/26/2023 11:17 AM Bethany Padilla RN documented as of this encounter Mental Status * Because of a physical, mental, or emotional condition, do you have serious difficulty concentrating, remembering, or making decisions? Answer Entry Date Author Yes 11/26/2023 11:17 AM Bethany Padilla RN documented in this encounter Miscellaneous Notes * Telephone Encounter - Samantha Harp RN - 03/17/2024 4:02 PM EST Filled at [facility] documented in this encounter Plan of Treatment Upcoming Encounters Date Type Department Care Team (Late st Contact Info) Description 12/19/2024 9:00 AM EDT Appointment [facility] Cardiac Echo [address] [facility] [address] [place] [address] 12/19/2024 11:00 AM EDT Office Visit [facility] Cardiac Subspecialty [address] [facility] [address] [place] [address] Juan Hutchinson MD [address] [facility] [address] [place] [address] 12/28/2024 10:45 AM EDT Appointment [facility] Imaging [address] [place] [address] 12/28/2024 11:30 AM EDT Office Visit [facility] Pulmonary [address] [facility] [address] 3rd [place] [phone] Radhames Espinoza MD [facility] [address] [place] [address] 01/03/2025 10:30 AM EDT Hospital Encounter [facility] Cardiac Subway Train Operator [address] [place] [address] Zeina Maradiaga MD [address] [facility] [address] [place] [phone] Other cytomegaloviral diseases (Multi-HCC); Heart transplant recipient (Multi-HCC) 01/03/2025 10:30 AM EDT - 01/03/2025 12:00 PM EDT Surgery [facility] Cardiac Subway Train Operator [address] [place] [address] Zeina Maradiaga MD [address] [address] Coronary angiography/RHC/bx; AHF slot @ 10:30am; page nubmers to JOSSY Mitchell [[id number] (CPT )] 02/22/2025 2:00 PM EST Office Visit [facility] Neurology [address] [place] [address] Percy Kapoor MD [address] [address] documented as of this encounter Visit Diagnoses Diagnosis 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) Heart replaced by transplant Heart transplant recipient (Multi-HCC)- Primary 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
--- OUTSIDE RECORDS SUMMARY | 2024-12-08 12:22 | XMS_ITS ---
Author Organization [facility] Address [address] [facility], [address] [place] [address] Care Team Providers Care Jewel Bearing Polisher Name Role Phone Glenn Herman MD Unavailable [phone] NameYoandy MD Primary Care Provider [phone] Edward Handley CPhT Unavailable Unavailable Jennie Michelle PharmD Unavailable [phone] Transplant Status:Enrolled (Active) Start date:12/31/2023 Enrollment date:12/31/2023 Enrollment reason:Identified by Other Non-PCP Provider Current support & services provided:Clinical Management, Refill Management, Benefits and PA Management, Adherence Management, Mail Order Management Linked medications:calcium carbonate (Active), cholecalciferol (vitamin D3) (Active), levetiracetam (Active), mycophenolate mofetil (Active), pantoprazole sodium (Active), pravastatin sodium (), prednisone (Active), sulfamethoxazole/trimethoprim (Active), tacrolimus (Active) Overview HEART [place] 12/28/2023 Case Team Name Relationship Phone Edward Handley CPhT(Responsible Staff) Girl Friday Jennie Michelle PharmD Pharmacist [phone] Continued Care and Services Coordination
--- OUTSIDE RECORDS SUMMARY | 2024-12-08 12:22 | XMS_ITS | Encounter Summary ---
Author Organization [employer] Address [address] [facility] [address] 7[address] [place] [address] Care Team Providers Care Provider Engagement Executive Name Role Phone Name, Yoandy LUGO Primary Care Provider [phone] Name, Yoandy LUGO Primary Care Provider [phone] Encounter Details Date Type Department Care Team (Late st Contact Info) Description 03/21/2022 Orders Only [facility] [address] [place] [address] Coby Flores RN Social History Tobacco Use [...] all 03/24/2022 9:10 AM Reena Jefferson MA Moving or speaking so slowly that [...] Description 02/20/2025 10:00 AM EST Office Visit [facility] [address] [place] [address] Name, MD Yoandy [address] [place] [address] documented as of this encounter Procedures Procedure Name Priority Date/Time Associated Diagnosis Comments B TYPE NATRIURETIC PEPTIDE (BNP) Routine 06/27/2022 9:53 AM EDT HEPATIC FUNCTION PANEL Routine 06/27/2022 9:53 AM EDT LIPID PANEL, STANDARD Routine 06/27/2022 9:53 AM EDT BASIC METABOLIC PANEL Routine 06/27/2022 9:53 AM EDT documented in this encounter Results * Lipid Panel, Standard (06/27/2022 9:53 AM EDT) Triglycerides 84 mg/dL [facility] Comment:Desirable Triglyceri de: less than 150 mg/dLBorderline High Triglyceride 150-199 mg/dLHigh Triglyceride: 200-499 mg/dLVery High Triglyceride: greater than or equal to 5OO mg/dL Cholesterol 154 mg/dL [facility] Comment:Desirable Cholestero l: less than 200 mg/dLBorderline High Cholesterol: 200-239 mg/dLHigh Cholesterol: greater than 239 mg/dL LDL Cholesterol Calculated 104 mg/dl [facility] Comment:Desirable LDL: less than 100 mg/dLNear [...] 9:53 AM EDT 06/27/2022 9:53 AM EDT [facility] External Provider LAB BLO OD ORDERABLES Final Result [facility] [address] [place] [address] [phone] * (ABNORMAL) Basic Metabolic Panel (06/27/2022 9:53 AM EDT) Sodium 143 135 - 145 mmol/L [facility] Potassium 4.6 3.3 - 5.1 mmol/L [facility] Chloride 108 96 - 108 mmol/L [facility] Carbon Dioxide 26 22 - 29 mmol/L [facility] Anion Gap 14 12 - 20 [facility] Urea Nitrogen (BUN) 13 9 - 16 mg/dL [facility] Creatinine, Serum 1.02 0.5 - 1.4 mg/dL [facility] Estimated Glomerular Filt Rate >60 [facility] Comment:NOTE: For -Am erican individuals, multiply the result by 1.210.Chronic Kidney Disease: Estimated GFR < 60 mL/min/1.79o0Kygqli Kidney Disease: Estimated GFR < 15 mL/min/1.73m2 Glucose 141(H) 60 - 115 mg/dL [facility] Calcium 9.4 8.4 - 10.2 mg/dL [facility] 06/27/2022 9:53 AM EDT 06/27/2022 9:53 AM EDT [facility] External Provider LAB BLO OD ORDERABLES Final Result Performing Organization Address [facility] Co de Phone Number [facility] [address] [place] [phone] * Hepatic Function Panel (06/27/2022 9:53 AM EDT) Bilirubin, Total 1.0 0.0 - 1.0 mg/dL [facility] Bilirubin, Direct 0.3 0.0 - 0.5 mg/dL [facility] Aspartate Amino Transferase 19 5 - 37 U/L [facility] Alanine Aminotransferase 24 0 - 40 U/L [facility] Total Protein 6.7 6.5 - 8.0 g/dL [facility] Albumin Level 4.2 3.5 - 5.0 g/dL [facility] Alkaline Phosphatase 61 39 - 117 U/L [facility] 06/27/2022 9:53 AM EDT 06/27/2022 9:53 AM EDT [facility] External Provider LAB BLO OD ORDERABLES Final Result Performing Organization Address [facility] de Phone Number [facility] [address] [place] [phone] * (ABNORMAL) B Type Natriuretic Peptide (BNP) (06/27/2022 9:53 AM EDT) B Type Natriuretic Peptide 332(H) <100 pg/mL [facility] Comment:For those patients w ho are being treated with Natrecor(nesiritide, recombinant BNP), BNP testing should beperformed at least two hours post treatment in order toensure that only endogenous levels of BNP are detected. 06/27/2022 9:53 AM EDT 06/27/2022 9:53 AM EDT us [facility] External Provider LAB BLO OD ORDERABLES Final Result [facility] [address] [place] [phone] [phone] documented in this encounter Visit Diagnoses Not on filedocumented in this encounter Care Teams Provider Engagement Executive Relationship Specialty Start Date End Date NameYoandy MD [address] [place] [address] PCP - General Family Medicine 01/18/21 06/04/23 Name, MD Yoandy [address] [place] [address] PCP - General Internal Medicine 10/19/23 [facility] 01/19/24 documented as of this encounter
--- OUTSIDE RECORDS SUMMARY | 2024-12-08 12:22 | XMS_ITS | Encounter Summary ---
Author Organization [facility] Address [address] [facility] [address] [place] [address] Care Team Providers Care Residential Tech Name Role Phone Glenn Herman MD Unavailable [phone] Name, Yoandy LUGO Primary Care Provider Edward Handley donation worker Unavailable Unavailable Jennie Michelle PharmD Unavailable [phone] Encounter Details Date Type Department Care Team (Late st Contact Info) Description 12/25/2023 Lab Requisition [facility] HLA Lab [address] [place] [phone] Pedro Kline MD [address] [place] [address] Cardiomyopathy, unspecified (Multi-HCC) Social History Tobacco Use Types Packs/Day [...] place to sleep or slept in a mcc (including now)? No 11/26/2023 Sex and Gender [...] Bethany Washington RN documented in this encounter Plan of Treatment Upcoming Encounters Date Type Department Care Team (Late st Contact Info) Description 12/19/2024 9:00 AM EDT Appointment [facility] Cardiac Echo [address] [facility] [address] [place] [address] 12/19/2024 11:00 AM EDT Office Visit [facility] Cardiac Subspecialty [address] [facility] [address] [place] [address] Juan Hutchinson MD [address] [address] 12/28/2024 10:45 AM EDT Appointment [facility] Imaging [address] [place] [address] 12/28/2024 11:30 AM EDT Office Visit [facility] Pulmonary [address] 3[address] [place] [address] Radhames Espinoza MD [facility] [address] [place] [address] 01/03/2025 10:30 AM EDT Hospital Encounter [facility] Cardiac Automatic Blocker [address] [place] [address] Zeina Maradiaga MD [address] [facility] [address] [place] [phone] Other cytomegaloviral diseases (Multi-HCC); Heart transplant recipient (Multi-HCC) 01/03/2025 10:30 AM EDT - 01/03/2025 12:00 PM EDT Surgery [facility] Cardiac Automatic Blocker [address] [place] [address] Zeina Maradiaga MD [address] [facility] [address] [place] [address] Coronary angiography/RHC/bx; AHF slot @ 10:30am; page nubmers to JOSSY Mitchell [[id number] (CPT )] 02/22/2025 2:00 PM EST Office Visit [facility] Neurology [address] [place] [phone] Percy Kapoor MD [facility] [address] [place] [address] documented as of this encounter Procedures Procedure Name Priority Date/Time Associated Diagnosis Comments HLA CONSULTATION Routine 12/25/2023 8:41 AM EDT Cardiomyopathy, unspecified (Multi-HCC) documented in this encounter Results * HLA Consultation (12/25/2023 8:41 AM EDT) PDF Attached See PDF Document 12/26/2023 3:15 PM EDT [facility] HLA LAB Blood Venous blood specimen / Unknown 12/25/2023 8:41 AM EDT 12/25/2023 7:39 PM EDT us Pedro Kline MD LAB BLOOD ORDERABLES Maral garcia Result [facility] HLA LAB [address] [place] [address], documented in this encounter Visit Diagnoses Diagnosis Cardiomyopathy, unspecified (Multi-HCC) Heart transplant recipient (Multi-HCC)- Primary 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
--- OUTSIDE RECORDS SUMMARY | 2024-12-08 12:22 | XMS_ITS | Encounter Summary ---
Author Organization [facility] Address [address] [facility] [address] [place] [address] Care Team Providers Care Curb Worker Name Role Phone Glenn Herman MD Unavailable [phone] Name, Yoandy LUGO Primary Care Provider [phone] Edward Handley iron melter Unavailable Unavailable Jennie Michelle PharmD Unavailable [phone] Encounter Details Date Type Department Care Team (Late st Contact Info) Description 12/29/2023 Lab Requisition [facility] HLA Lab [address] [place] [phone] Pedro Kline MD [address] [place] [address] Cardiomyopathy, unspecified (Multi-HCC) Social History Tobacco Use [...] place to sleep or slept in a residential (including now)? No 11/26/2023 Sex and Gender [...] Info) Description 12/19/2024 9:00 AM EDT Appointment [facility] Cardiac Echo [address] [facility] [address] [place] [address] 12/19/2024 11:00 AM EDT Office Visit [facility] Cardiac Subspecialty [address] [facility] [address] [place] [address] Juan Hutchinson MD [address] [address] 12/28/2024 10:45 AM EDT Appointment [facility] Imaging [address] [place] [address] 12/28/2024 11:30 AM EDT Office Visit [facility] Pulmonary [address] 3rd [place] [address] Radhames Espinoza MD [facility] [address] [place] [address] 01/03/2025 10:30 AM EDT Hospital Encounter [facility] Cardiac Survey Interviewer [address] [place] [address] Zeina Maradiaga MD [address] [facility] [address] [place] [phone] Other cytomegaloviral diseases (Multi-HCC); Heart transplant recipient (Multi-HCC) 01/03/2025 10:30 AM EDT - 01/03/2025 12:00 PM EDT Surgery [facility] Cardiac Survey Interviewer [address] [place] [address] Zeina Maradiaga MD [address] [facility] [address] [place] [address] Coronary angiography/RHC/bx; AHF slot @ 10:30am; page nubmers to JOSSY Mitchell [[id number] (CPT )] 02/22/2025 2:00 PM EST Office Visit [facility] Neurology [address] [place] [phone] Percy Kapoor MD [facility] [address] [place] [address] documented as of this encounter Procedures Procedure Name Priority Date/Time Associated Diagnosis Comments HLA CONSULTATION Routine 12/26/2023 11:5 6 PM EDT Cardiomyopathy, unspecified (Multi-HCC) documented in this encounter Results * HLA Consultation (12/26/2023 11:56 PM EDT) PDF Attached See PDF Document 01/02/2024 12:57 PM EDT [facility] HLA LAB Blood Venous blood specimen / Unknown 12/26/2023 11:56 PM EDT 12/29/2023 10:28 PM EDT us Pedro Kline MD LAB BLOOD ORDERABLES Maral garcia Result [facility] HLA LAB [address] [place] [address], documented in this encounter Visit Diagnoses Diagnosis Cardiomyopathy, unspecified (Multi-HCC) Heart transplant recipient (Multi-HCC)- Primary 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
[2024-12-09 16:14] LABS: CMV DNA Qn PCR 2.13 Log IU/mL (NOT DETECTED)
== END 2024-12-08 10:46 | disposition home or self-care (01) ==
LOC: HO.LABR 10:45
PROVIDERS: PCP Internal Medicine Geriatric Medicine; Visit Provider Nurse Practitioner Family
DX: B25.9 Cytomegaloviral disease, unspecified (principal)
CPT/HCPCS: 36415; 87497

== ENCOUNTER 2024-12-13 10:34 | Outpatient (REF) | payer MEDICARE, SELFPAY ==
--- OUTSIDE RECORDS SUMMARY | 2024-12-13 12:25 | XMS_ITS | Encounter Summary ---
Author Organization [employer] Address [address] [facility] 7t [place] [address] Care Team Providers Care Billing Control Clerk Name Role Phone Name, Yoandy LUGO Primary Care Provider [phone] Name, Yoandy LUGO Primary Care Provider [phone] Reason for Visit * Reason Onset Date Comments FYI 10/01/2022 Encounter Details Date Type Department Care Team ([facility] st Contact Info) Description 10/01/2022 Telephone [facility] [address] [place], [place] [phone] Name, MD Yoandy [address] [place] [address] FYI Social History Tobacco Use Types Packs/Day [...] 10/01/2022 3:26 PM EDT Tc from spouse [facility] facility that patient during their vacation in [place] had two Heart Attacks and is currently hospitalized since 09/15/2022 at the [facility] documented in this encounter Plan of Treatment Upcoming Encounters Date Type Department Care Team (Late st Contact Info) Description 02/20/2025 10:00 AM EST Office Visit [facility] MEDIC[facility] [address] [place] [address] Name, MD Yoandy [address] [place] [address] documented as of this encounter Visit Diagnoses Not on filedocumented in this encounter Care Teams Billing Control Clerk Relationship Specialty Start Date End Date Name, MD Yoandy [address] [place] [address] PCP - General Family Medicine 01/18/21 06/04/23 Name, MD Yoandy [address] [place] [address] PCP - General Internal Medicine 10/19/23 [facility] 01/19/24 documented as of this encounter
--- OUTSIDE RECORDS SUMMARY | 2024-12-13 12:25 | XMS_ITS | Clinical Summary ---
Author Organization [employer] Address [address] [facility] 7t [place] [address] Care Team Providers Care Customer Program Specialist Name Role Phone Name, Yoandy LUGO Primary Care Provider [phone] Allergies Active Allergy Reactions Criticality Noted Date [...] bedtime. 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 Dysphagia 02/08/2023 Positive colorectal cancer screening using Colog uard test 02/04/2023 Overview (11/03/2023): Negative Colonoscopy 06/2023: urgical Pathology Exam - Order: [id number] Component 4 mo ago Case Report Surgicals Case: [id number] Authorizing Provider: Donny Encarnacion Collected: 2023 0843 MD Eugene Ordering Location: [facility] Received: 2023 1011 Pathologist: Shannan [...] special stains are performed at [facility], [place] [address]. Resulting Agency [facility] [...] were answered. Coronary artery disease invo lving [place] coronary artery of [place] heart without angina pectoris 11/14/2022 Overview (11/02/2023): Last Assessment & Plan: - nonobstructive disease - continue medical therapy with aspirin, statin, BB - denies angina Stridor 11/13/2022 Overview (11/02/2023): Last Assessment & Plan: Improved after last dilation in April 2023. Mild stridor noted today in clinic Discussed with his primary cost control supervisor Dr. Verónica and will work to get [...] anxiety 04/06/2022 Ventricular tachycardia, unspecified 04/06/2022 Other care home (current) drug therapy 3 Type 2 [...] upgraded from dual-chamber to biventricular device at [facility] 03/2022. Follows at [facility] cardi Systolic dysfunction 03/13/2022 History of bradycardia 03/13/2022 Family history of prostate cancer 03/13/2022 Complete heart block 04/06/2020 Overview (11/02/2023): Added automatically from request for surgery [id number] Last Assessment & Plan: History of biventricular pacemaker that was upgraded to NEONATOLOGIST defibrillator in September. Device interrogated today with [...] starting statin -No need for ischemic evaluation long term care administrator (current) use of o ral hypoglycemic drugs 04/06/2022 11/03/2023 Other specified diseases of upper respiratory tract 04/06/2022 11/03/2023 Presence of automatic (impla ntable) cardiac defibrillator 04/06/2022 02/05/2024 Cardiac pacemaker in situ 03/13/2022 Uncontrolled type 2 diabetes mellitus with hyperglycemia 04/06/2020 02/05/2024 Overview (11/02/2023): Last Assessment & Plan: Encounters Date Type Department Care Team Description 11/24/2024 Telephone [facility] [address] [place] [address] Americo Stiles [place] jan recalls 10/05/2024 Telephone [facility] [address] [place] [address] Keven Horan MD CHART PREP 09/29/2024 Telephone [facility] [address] [place] [address] Yoandy Tillman MD Referral 09/29/2024 Telephone [facility] [address] [place] [address] Yoandy Tillman MD Hospital Follow-up 09/12/2024 Telephone [facility] [address] [place] [address] Americo Stiles [place] november recalls from Last [...] the past 12 months, has t he [employer], gas, oil or water company threatened to [...] Description 02/20/2025 10:00 AM EST Office Visit [facility] [address] [place] [phone] Name, MD Yoandy [address] [place] [address] Health Maintenance Due Date Last Done Comments [...] current use of insulin ([facility]) ALBUMIN, RANDOM URINE W/CREATININE Routine 04/14/2024 11:04 AM EST Type 2 diabetes mellitus with other circulatory complication, without long-term current use of insulin ([facility]) LIPID PANEL, STANDARD Routine 06/27/2022 9:53 AM [...] 11:04 AM EST) Creatinine, Urine 109.08 mg/dL [facility] Microalbumin Urine 6.0 mg/L [facility] Microalbum Creatinine Ratio Ur 5.5 <30 ug/mg cr [facility] Comment:Albumin/Creatinine R atio Reference Ranges: Normal: < 30 ug/mg creatinine Microalbuminuria: 30 - 300 ug/mg creatinineClinical Albuminuria: > 300 ug/mg creatinine Urine (Urine, Random) 04/14/2024 11:04 AM EST 04/14/2024 1:04 PM EST us Yoandy Tillman MD LAB URINE ORDERABLES Final Resul t [facility] [address] [place] [address] [phone] * Lipid Panel, Standard (06/27/2022 9:53 AM EDT) Triglycerides 84 mg/dL [facility] Comment:Desirable Triglyceri de: less than 150 mg/dLBorderline High Triglyceride 150-199 mg/dLHigh Triglyceride: 200-499 mg/dLVery High Triglyceride: greater than or equal to 5OO mg/dL Cholesterol 154 mg/dL [facility] Comment:Desirable Cholestero l: less than 200 mg/dLBorderline High Cholesterol: 200-239 mg/dLHigh Cholesterol: greater than 239 mg/dL LDL Cholesterol Calculated 104 mg/dl [facility] Comment:Desirable LDL: less than 100 mg/dLNear Optimal/Above Optimal LDL: 110- 129 mg/dLBorderline High LDL: 130-159 mg/dLHigh LDL: 160-189 mg/dLVery High LDL: greater than or equal to 190 mg/dL HDL Cholesterol 34 mg/dL [facility] Comment:Desirable HDL: great er than 40 mg/dL Note: This HDL assay may give artificially low results in patients with liver disease. 06/27/2022 9:53 AM EDT 06/27/2022 9:53 AM EDT [facility] External Provider LAB BLO OD ORDERABLES Final Result Performing Organization Address City/State/[facility] Co de Phone Number [facility] [address] [place] [address] [phone] from Last 3 Months or Most Recently Relevant to Health [place] [id number] [facility] MEDEX CARE [facility] STANDARD Care Teams Customer Program Specialist Relationship Specialty Start Date End Date Name, MD Yoandy [address] [place] [phone] PCP - General Internal Medicine 10/19/23 Roberto Lyudmila 01/19/24
--- OUTSIDE RECORDS SUMMARY | 2024-12-13 12:26 | XMS_ITS | Encounter Summary ---
Author Organization [employer] Address [address] [facility] [address] 7t [place] [address] Care Team Providers Care Home Economics Teacher Name Role Phone Name, Yoandy LUGO Primary Care Provider [phone] Name, Yoandy LUGO Primary Care Provider Encounter Details Date Type Department Care Team (Late st Contact Info) Description 03/21/2022 Orders Only [facility] MEDICINE [address] [place] [address] Coby Flores RN Social History Tobacco Use [...] things Not at all 03/24/2022 9:10 AM EST Reena Mendez [place] Feeling down, depressed, or hopeless Not [...] Description 02/20/2025 10:00 AM EST Office Visit [facility]ICINE [address] [place] [address] Name, MD Yoandy [address] [place] [address] documented as of this encounter Procedures Procedure Name Priority Date/Time Associated Diagnosis Comments B TYPE NATRIURETIC PEPTIDE (BNP) Routine 06/27/2022 9:53 AM EDT HEPATIC FUNCTION PANEL Routine 06/27/2022 9:53 AM EDT LIPID PANEL, STANDARD Routine 06/27/2022 9:53 AM EDT BASIC METABOLIC PANEL Routine 06/27/2022 9:53 AM EDT documented in this encounter Results * Lipid Panel, Standard (06/27/2022 9:53 AM EDT) Triglycerides 84 mg/dL [facility] Comment:Desirable Triglyceri de: less than [...] mg/dL HDL Cholesterol 34 mg/dL [facility] Comment:Desirable HDL: great er than 40 mg/dL Note: This HDL assay may give artificially low results in patients with liver disease. 06/27/2022 9:53 AM EDT 06/27/2022 9:53 AM EDT [facility] External Provider LAB BLO OD ORDERABLES Final Result [facility] [address] [place] [address] [phone] * (ABNORMAL) Basic Metabolic Panel (06/27/2022 [...] 1.210.Chronic Kidney Disease: Estimated GFR < 60 mL/min/1.73p0Hpufnx Kidney Disease: Estimated GFR < 15 mL/min/1.73m2 Glucose 141(H) 60 - 115 mg/dL [facility] Calcium 9.4 8.4 - 10.2 mg/dL [facility] 06/27/2022 9:53 AM EDT 06/27/2022 9:53 AM EDT [facility] External Provider LAB BLO OD ORDERABLES Final Result Performing Organization Address [facility] Co de Phone Number [facility] [address] [place] [phone] * Hepatic Function Panel (06/27/2022 9:53 [...] AM EDT 06/27/2022 9:53 AM EDT [facility] External Provider LAB BLO OD ORDERABLES Final Result Performing Organization Address [facility] de Phone Number [facility] [address] [place] [phone] * (ABNORMAL) B Type Natriuretic Peptide [...] AM EDT 06/27/2022 9:53 AM EDT us [facility] External Provider LAB BLO OD ORDERABLES Final Result [facility] [address] [place] [phone] [phone] documented in this encounter Visit Diagnoses Not on filedocumented in this encounter Care Teams Home Economics Teacher Relationship Specialty Start Date End Date NameYoandy MD [address] [place] [address] PCP - General Family Medicine 01/18/21 06/04/23 Name, MD Yoandy [address] [place] [address] PCP - General Internal Medicine 10/19/23 [facility] 01/19/24 documented as of this encounter
--- OUTSIDE RECORDS SUMMARY | 2024-12-13 12:26 | XMS_ITS | Clinical Summary ---
Author Organization [facility] Address [facility] [employer] [address] [place] [phone] Phone Care Team Providers Care Assembler Small Products Name Role Phone Name, Yoandy LUGO Primary Care Provider [phone] Social History Tobacco Use Types Packs/Day Years [...] 06/18/2005 ZOSTER VACCINES (1 of 2) 06/18/2005 INFLUENZA VACCINE (#1) 2024 COVID-19 VACCINE (1 - 2023-2 5 season) 2024 RSV VACCINE (1 - 1-dose 75+ [...] file Insurance MEDICARE PART A & B [facility] [address] [place], [place] [id number] [place]IC[place] A [place] [id number] [facility] [address] [place], [place] [id number] MEDICARE PART A & B [facility] FULL Member Subscriber Plan / Payer (Ef fective 2023-Present) Name:Matthew Toro Relation to Subscriber:Self Name:Matthew Toro Payer ID:Not on file Group ID:Not on file Type:Medicaid Address: [address] MEDICARE PART A & B [employer] SAFETY NET FULL MEDICARE PART A & B [facility] SAFETY NET FULL Member Subscriber Plan / Payer (Ef fective 2023-Present) Name:Matthew Toro Relation to Subscriber:Self Name:Avila Margarita Matthew Donny Payer ID:Not on file Group ID:Not on file Type:Medicaid Address[address] [place] [id number] [facility] FULL B Care Teams Assembler Small Products Relationship Specialty Start Date End Date Name, MD Yoandy [address] [place] [address] PCP - General Internal Medicine 11/02/23 Additional Source Comments The information contained in this document represents components of the legal health record. It is not the complete legal health record.[facility]
[2024-12-14 15:23] LABS: CMV DNA Qn PCR 2.55 Log IU/mL (NOT DETECTED)
== END 2024-12-13 10:35 | disposition home or self-care (01) ==
LOC: HO.LABR 10:34
PROVIDERS: PCP Internal Medicine Geriatric Medicine; Visit Provider Nurse Practitioner Family
DX: B25.9 Cytomegaloviral disease, unspecified (principal)
CPT/HCPCS: 36415; 87497

== ENCOUNTER 2024-12-26 10:42 | Outpatient (REF) | payer MEDICARE, SELFPAY ==
[2024-12-26 12:27] LABS: Alanine Aminotransferase 19 U/L (0-40); Albumin Level 4.7 g/dL (3.5-5.0); Alkaline Phosphatase 58 U/L (39-117); Anion Gap 8 (12-20); Aspartate Amino Transferase 26 U/L (5-37); Blood Urea Nitrogen 16 mg/dL (9-16); Calcium 9.6 mg/dL (8.4-10.2); Carbon Dioxide 28 mmol/L (22-29); Chloride 112 mmol/L (96-108); Estimated Glomerular Filt Rate 56; Potassium 4.1 mmol/L (3.3-5.1); Sodium 144 mmol/L (135-145); Total Protein 6.9 g/dL (6.5-8.0)
--- OUTSIDE RECORDS SUMMARY | 2024-12-26 13:10 | XMS_ITS | Encounter Summary ---
Author Organization [employer] Address [address] [facility] [address] [place] [address] Care Team Providers Care Legal Support Analyst Name Role Phone Name, Yoandy LUGO Primary Care Provider [phone] Name, Yoandy LUGO Primary Care Provider [phone] Encounter Details Date Type Department Care Team (Late st Contact Info) Description 03/21/2022 Orders Only [facility] MED[facility]INE [address] [place] [address] Coby Flores RN Social History Tobacco Use [...] Description 02/20/2025 10:00 AM EST Office Visit [facility] [address] [place] [address] Name, MD Yoandy [address] [place] [address] documented as of this encounter Procedures Procedure Name Priority Date/Time Associated Diagnosis Comments B TYPE NATRIURETIC PEPTIDE (BNP) Routine 06/27/2022 9:53 AM EDT HEPATIC FUNCTION PANEL Routine 06/27/2022 9:53 AM EDT LIPID PANEL, STANDARD Routine 06/27/2022 9:53 AM EDT BASIC METABOLIC PANEL Routine 06/27/2022 9:53 AM EDT documented in this encounter Results * Lipid Panel, Standard (06/27/2022 9:53 AM EDT) Triglycerides 84 mg/dL [facility] Comment:Desirable Triglyceri de: less than 150 mg/dLBorderline High Triglyceride 150-199 mg/dLHigh Triglyceride: 200-499 mg/dLVery High Triglyceride: greater than or equal to 5OO mg/dL Cholesterol 154 mg/dL [facility] Comment:Desirable Cholestero l: less than 200 mg/dLBorderline High Cholesterol: 200-239 mg/dLHigh Cholesterol: greater than 239 mg/dL LDL Cholesterol Calculated 104 mg/dl [facility] Comment:Desirable LDL: less than 100 mg/dLNear Optimal/Above Optimal LDL: 110- 129 mg/dLBorderline High LDL: 130-159 mg/dLHigh LDL: 160-189 mg/dLVery High LDL: greater than or equal to 190 mg/dL HDL Cholesterol 34 mg/dL [facility] Comment:Desirable HDL: great er than 40 mg/dL Note: This HDL assay may give artificially low results in patients with liver disease. 06/27/2022 9:53 AM EDT 06/27/2022 9:53 AM EDT [facility] External Provider LAB BLO OD ORDERABLES Final Result [facility] [address] [place] [address] [phone] * (ABNORMAL) Basic Metabolic Panel (06/27/2022 9:53 AM EDT) Sodium 143 135 - 145 mmol/L [facility] Potassium 4.6 3.3 - 5.1 mmol/L [facility] Chloride 108 96 - 108 mmol/L [facility] Carbon Dioxide 26 22 - 29 mmol/L [facility] Anion Gap 14 12 - 20 [facility] Urea Nitrogen (BUN) 13 9 - 16 mg/dL [facility] Creatinine, Serum 1.02 0.5 - 1.4 mg/dL [facility] Estimated Glomerular Filt Rate >60 [facility] Comment:NOTE: For -Am erican individuals, multiply the result by 1.210.Chronic Kidney Disease: Estimated GFR < 60 mL/min/1.30p3Khckdx Kidney Disease: Estimated GFR < 15 mL/min/1.73m2 Glucose 141(H) 60 - 115 mg/dL [facility] Calcium 9.4 8.4 - 10.2 mg/dL [facility] 06/27/2022 9:53 AM EDT 06/27/2022 9:53 AM EDT [facility] External Provider LAB BLO OD ORDERABLES Final Result Performing Organization Address [facility] Co de Phone Number [facility] [address] [place] [phone] * Hepatic Function Panel (06/27/2022 9:53 AM EDT) Bilirubin, Total 1.0 0.0 - 1.0 mg/dL [facility] Bilirubin, Direct 0.3 0.0 - 0.5 mg/dL [facility] Aspartate Amino Transferase 19 5 - 37 U/L [facility] Alanine Aminotransferase 24 0 - 40 U/L [facility] Total Protein 6.7 6.5 - 8.0 g/dL [facility] Albumin Level 4.2 3.5 - 5.0 g/dL [facility] Alkaline Phosphatase 61 39 - 117 U/L [facility] 06/27/2022 9:53 AM EDT 06/27/2022 9:53 AM EDT [facility] External Provider LAB BLO OD ORDERABLES Final Result Performing Organization Address [facility] de Phone Number [facility] [address] [place] [phone] * (ABNORMAL) B Type Natriuretic Peptide (BNP) (06/27/2022 9:53 AM EDT) B Type Natriuretic Peptide 332(H) <100 pg/mL [facility] Comment:For those patients w ho are being treated with Natrecor(nesiritide, recombinant BNP), BNP testing should beperformed at least two hours post treatment in order toensure that only endogenous levels of BNP are detected. 06/27/2022 9:53 AM EDT 06/27/2022 9:53 AM EDT us [facility] External Provider LAB BLO OD ORDERABLES Final Result [facility] [address] [place] [address] [phone] documented in this encounter Visit Diagnoses Not on filedocumented in this encounter Care Teams Legal Support Analyst Relationship Specialty Start Date End Date NameYoandy MD [address] [place] [address] PCP - General Family Medicine 01/18/21 06/04/23 Name, MD Yoandy [address] [place] [address] PCP - General Internal Medicine 10/19/23 [facility] 01/19/24 documented as of this encounter
--- OUTSIDE RECORDS SUMMARY | 2024-12-26 13:10 | XMS_ITS | Clinical Summary ---
Author Organization [employer] Formerly [facility], [facility] Address [facility] Service Seeking [address] [place] [phone] Phone Care Team Providers Care Endoscopy Tech Name Role Phone Name, Yoandy LUGO Primary Care Provider [phone] Social History Tobacco Use Types Packs/Day Years [...] file Insurance MEDICARE PART A & B COUNT INCLUDES THE [facility] [place] [address] [place] [id number] MEDICARE PART A [place] [id number] COUNT INCLUDES THE [facility] [address] [place], [place] [id number] MEDICARE PART A & B COUNT INCLUDES THE [facility] FULL Member Subscriber Plan / Payer (Ef fective 2023-Present) Name:Matthew Toro Relation to Subscriber:Self Name:Matthew Toro Payer ID:Not on file Group ID:Not on file Type:Medicaid Address: [address] MEDICARE PART A & B [employer] NET FULL MEDICARE PART A & B [facility] SAFETY NET FULL Member Subscriber Plan / Payer (Ef fective 2023-Present) Name:Matthew Toro Relation to Subscriber:Self Name:Avila Margarita Matthew Donny Payer ID:Not on file Group ID:Not on file Type:Medicaid Address: [address] [place] [id number] COUNT INCLUDES THE [facility] FULL B Care Teams Endoscopy Tech Relationship Specialty Start Date End Date Name, MD Yoandy [address] [place] [address] PCP - General Internal Medicine 11/02/23 Additional Source Comments The information contained in this document represents components of the legal health record. It is not the complete legal health record.[facility]
--- OUTSIDE RECORDS SUMMARY | 2024-12-26 13:10 | XMS_ITS | Encounter Summary ---
Author Organization [employer] Address [address] [facility] [address] [place] [address] Care Team Providers Care Acct Exec Name Role Phone Name, Yoandy LUGO Primary Care Provider [phone] Name, Yoandy LUGO Primary Care Provider [phone] Reason for Visit * Reason Onset Date Comments FYI 10/01/2022 Encounter Details Date Type Department Care Team ([facility] st Contact Info) Description 10/01/2022 Telephone [facility] MEDICINE [address] [place], [place] [id number] Name, MD Yoandy [address] [place] [address] FYI Social History Tobacco Use Types Packs/Day [...] facility that patient during their vacation in [place] had two Heart Attacks and is currently hospitalized since 09/15/2022 at the [facility] documented in this encounter Plan of Treatment Upcoming Encounters Date Type Department Care Team (Late st Contact Info) Description 02/20/2025 10:00 AM EST Office Visit [facility] MEDICINE [address] [place] [address] Name, MD Yoandy [address] [place] [phone] documented as of this encounter Visit Diagnoses Not on filedocumented in this encounter Care Teams Acct Exec Relationship Specialty Start Date End Date Name, MD Yoandy [address] [place] [address] PCP - General Family Medicine 01/18/21 06/04/23 Name, MD Yoandy [address] [place] [address] PCP - General Internal Medicine 10/19/23 [facility] 01/19/24 documented as of this encounter
--- OUTSIDE RECORDS SUMMARY | 2024-12-26 13:10 | XMS_ITS | Clinical Summary ---
Author Organization [employer] Address [address] [facility] [address] [place] [address] Care Team Providers Care Leaflet Or Newspaper Deliverer Name Role Phone Name, Yoandy LUGO Primary [...] bedtime. 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 Dysphagia 02/08/2023 Positive colorectal cancer screening using Colog uard test 02/04/2023 Overview (11/03/2023): Negative Colonoscopy 06/2023: urgical Pathology Exam - Order: [id number] Component 4 mo ago Case Report Surgicals Case: [id number] Authorizing Provider: Donny Encarnacion Collected: 2023 0843 MD Eugene Ordering Location: [facility] GI Lab Received: 2023 1011 Pathologist: [...] special stains are performed at [facility], [place] [address]. Resulting Agency [facility] Specimen Collected: 06/19/23 08:43 Performed by: [facility] Last Resulted: 06/23/23 17:27 Athscl heart [...] were answered. Coronary artery disease invo lving [place] coronary artery of [place] heart without angina pectoris 11/14/2022 Overview (11/02/2023): Last Assessment & Plan: - nonobstructive disease - continue medical therapy with aspirin, statin, BB - denies angina Stridor 11/13/2022 Overview (11/02/2023): Last Assessment & Plan: Improved after last dilation in April 2023. Mild stridor noted today in clinic Discussed with his primary chrome tanning drum operator Dr. Verónica and will work to get [...] anxiety 04/06/2022 Ventricular tachycardia, unspecified 04/06/2022 Other fci (current) drug therapy 3 Type 2 diabetes [...] from dual-chamber to biventricular device at [facility] 03/2022. Follows at [facility] cardi Systolic dysfunction 03/13/2022 History of bradycardia 03/13/2022 Family history of prostate cancer 03/13/2022 Complete heart block 04/06/2020 Overview (11/02/2023): Added automatically from request for surgery [id number] Last Assessment & Plan: History of biventricular pacemaker that was upgraded to COMMUNICATION CLERK defibrillator in September. Device interrogated today with [...] starting statin -No need for ischemic evaluation half-way (current) use of o ral hypoglycemic drugs 04/06/2022 11/03/2023 Other specified diseases of upper respiratory tract 04/06/2022 11/03/2023 Presence of automatic (impla ntable) cardiac defibrillator 04/06/2022 02/05/2024 Cardiac pacemaker in situ 03/13/2022 Uncontrolled type 2 diabetes mellitus with hyperglycemia 04/06/2020 02/05/2024 Overview (11/02/2023): Last Assessment & Plan: Encounters Date Type Department Care Team Description 11/24/2024 Telephone [facility] MEDICINE [address] [place] [phone] Americo Stiles MA oct recalls 10/05/[address] [address] Keven Horan MD CHART PREP 09/29/2024 Telephone [facility] MEDICINE [address] [place] [phone] Yoandy Tillman MD Referral 09/29/[address] [address] NameYoandy MD Hospital Follow-up from Last 3 Months Immunizations Immunization Administration [...] Description 02/20/2025 10:00 AM EST Office Visit [facility] MEDICINE [address] [place] [address] Name, MD Yoandy [address] [place] [address] Health Maintenance Due Date Last Done Comments CT Colonography 1955 Colonoscopy 1955 FIT 1955 Sigmoidoscopy 1955 Alcohol/Substance Use Screening 1967 Hepatitis B Vaccines (2 of 3 - 19+ 3-dose series) 12/24/2023 11/26/2023 Zoster Vaccines (2 of 2) 01/21/2024 11/26/2023 FOBT 01/22/2024 01/21/2023 Depression Screening 10/19/2024 10/20/2023, 10/20/19 24 SDOH Screening 10/19/2024 10/20/2023 COVID-19 Vaccine (5 - Mixed Product risk 2023- season) 12/05/2024 02/05/2024, 02/25/2022, 02/25/2022, Additional history exists Influenza Vaccine (#1) 2024 12/16/2023, 2022 Lipid Panel 01/25/2025 01/26/2024, 06/05, 06/23/2022, Additional history exists RSV Patients and Patients Aged 60 years or older (1 - Risk 60-74 years 1-dose series) 01/28/2025 Postponed from 2015 (Other System Reasons) Diabetes: Foot Exam 02/04/2025 02/05/2024, Diabetes: Urine Protein Screening 04/14/2025 04/14/2024, 06/23/2022, 05/29/2021 Diabetes: Hemoglobin A1C 06/18/2025 025, 07/27/2024, 05/26/2024, Additional history exists Eye Exam 07/07/2025 07/07/2024, 04/0 06/2024, 07/07/2024, [...] complication, without long-term current use of insulin ([facility]) ALBUMIN, RANDOM URINE W/CREATININE Routine 04/14/2024 11:04 AM EST Type 2 diabetes mellitus with other circulatory complication, without long-term current use of insulin ([facility]) LIPID PANEL, STANDARD Routine 06/27/2022 9:53 [...] 11:04 AM EST) Creatinine, Urine 109.08 mg/dL [facility] Microalbumin Urine 6.0 mg/L [facility] Microalbum Creatinine Ratio Ur 5.5 <30 ug/mg cr LABS Comment:Albumin/Creatinine R atio Reference Ranges: Normal: < 30 ug/mg creatinine Microalbuminuria: 30 - 300 ug/mg creatinineClinical Albuminuria: > 300 ug/mg creatinine Urine (Urine, Random) 04/14/2024 11:04 AM EST 04/14/2024 1:04 PM EST us Yoandy Tillman MD LAB URINE ORDERABLES Final Resul t LABS [address] [place] [phone] * Lipid Panel, Standard (06/27/2022 9:53 AM EDT) Triglycerides 84 mg/dL [facility] Comment:Desirable Triglyceri de: less than [...] to 190 mg/dL HDL Cholesterol 34 mg/dL [facility] Comment:Desirable HDL: great er than 40 mg/dL Note: This HDL assay may give artificially low results in patients with liver disease. 06/27/2022 9:53 AM EDT 06/27/2022 9:53 AM EDT [facility] External Provider LAB BLO OD ORDERABLES Final Result [facility] [address] [place] [phone] from Last 3 Months or Most Recently Relevant to Health [place] [id number] [facility] MED CARE [facility] STANDARD Care Teams Leaflet Or Newspaper Deliverer Relationship Specialty Start Date End Date Name, MD Yoandy [address] [place] [phone] PCP - General Internal Medicine 10/19/23 [facility] 01/19/24
[2024-12-27 15:43] LABS: CMV DNA Qn PCR 1.94 Log IU/mL (NOT DETECTED)
== END 2024-12-26 10:43 | disposition home or self-care (01) ==
LOC: HO.LABR 10:42
PROVIDERS: Visit Provider Nurse Practitioner Family
DX: B25.9 Cytomegaloviral disease, unspecified (principal)
CPT/HCPCS: 36415; 80053; 85025; 87497

== ENCOUNTER → 2024-12-30 15:29 | Outpatient (AMB) | payer MEDICARE, SELFPAY ==
--- OUTSIDE RECORDS SUMMARY | 2024-12-28 10:16 | XMS_ITS | Encounter Summary ---
Author Organization [facility] Address [address] [facility] [address] [place] [address] Care Team Providers Care Benefits Sales Consultant Name Role Phone Glenn Herman MD Unavailable [phone] Yoandy Tillmna MD Primary Care Provider [phone] [facility] Unavailable Unavailable Jennie Michelle PharmD Unavailable [phone] Juan Hutchinson MD Unavailable [phone] Reason for Referral * Imaging (Routine) - Closed Specialty Diagnoses / Procedures Referred By Contac t Referred To Contact Radiology Diagnoses Tracheal stenosis Pulmonary sarcoidosis Procedures CT HIGH RESOLUTION CHEST WO CONTRAST CT CHEST WO CONTRAST Radhames Espinoza MD [address] [address] Phone: tel: fax: Referral ID Status Reason Start Date Expiration Date Visits Re quested Visits Authorized [id number] Closed 09/28/2024 09/28/2025 1 1 Reason for Visit * Imaging (Routine) - Closed Specialty Diagnoses / Procedures Referred By Contac t Referred To Contact Radiology Diagnoses Tracheal stenosis Pulmonary sarcoidosis Procedures CT HIGH RESOLUTION CHEST WO CONTRAST CT CHEST WO CONTRAST Radhames Espinoza MD [facility] [address] [place] [address] Phone: tel: fax: Referral ID Status Reason Start Date Expiration Date Visits Re quested Visits Authorized [id number] Closed 09/28/2024 09/28/2025 1 1 Encounter Details Date Type Department Care Team (Latest Contact Info) Description 12/28/2024 10:16 AM EDT - 12/28/2024 11:59 PM EDT Hospital Encounter [facility] Imaging [address] [place] [address] Cytomegalovirus infection, unspecified cytomegaloviral infection type (Multi-HCC); Tracheal stenosis; Pulmonary sarcoidosis (Multi-HCC) Discharge Disposition: Home or self care Social History Tobacco Use Types Packs/Day Years [...] place to sleep or slept in a long-term (including now)? No 11/26/2023 Sex and Gender [...] No 11/26/2023 11:17 AM Bethany Padilla RN * Are you blind or do you have serious difficulty seeing, even when wearing glasses? Answer Date of Assessment Author No 11/26/2023 11:17 AM Bethany Padilla RN * Do you have serious difficulty walking or climbing stairs? Answer Date of Assessment Author Yes 11/26/2023 11:17 AM Bethany Padilla RN * Do you have serious difficulty dressing or bathing? Answer Date of Assessment Author No 11/26/2023 11:17 AM Bethany Padilla RN * Because of a physical, mental, [...] Bethany Padilla RN documented in this encounter Medications at Time of Discharge alcohol swabs pads, medicatedIndica tions:Heart transplant recipient Swab prior to testing and insulin administration as directed 300 each 1 04/04/2024 4:11 PM EST 01/14/2024 amoxicillin (Amoxil) 500 mg capsule Take 2,000 mg by mouth 1 (one) time if needed (dentist). 05/08/2023 aspirin 81 mg chewable tabletIndicatio ns:Heart transplant recipient Chew 1 tablet (81 mg) once daily. 30 tablet 11 11/17/2024 3:45 PM EDT 11/15/2024 6 bisacodyl (Dulcolax) 5 mg EC tablet Take 5 mg by mouth if needed each day for constipation. Do not crush, chew, or split. calcium carbonate 500 mg calcium (1,250 mg) tabletIndicatio ns:Heart transplant recipient Take 1 tablet (1,250 mg) by mouth with breakfast and with evening meal. 180 tablet 3 10/20/2024 4:43 PM EDT 01/12/2024 5 cholecalciferol , vitamin D3, (Vitamin D-3) 25 MCG (1000 UT) tabletIndicatio ns:Heart transplant recipient Take 1 tablet (1,000 Units) by mouth once daily. 30 tablet 11 11/17/2024 3:45 PM EDT 11/15/2024 6 dextromethorpha n-guaifenesin (Robitussin DM) 10-100 mg/5 mL syrupIndication s:Chronic cough Take 5 mL by mouth if needed in the morning, at noon, and at bedtime for cough for up to 10 days. 118 mL 12/28/2024 5 famotidine (Pepcid) 20 mg tabletIndicatio ns:Heart transplant recipient Take 1 tablet (20 mg) by mouth before evening meal. 30 tablet 2 12/14/2024 4:35 PM EDT 11/07/2024 5 fluticasone (Flonase) 50 mcg/actuation nasal sprayIndication s:Chronic cough Administer 1 spray into each nostril once daily. Shake gently. Before first use, prime pump. After use, clean tip and replace cap. 16 g 3 12/14/2024 4:35 PM EDT 10/03/2024 5 insulin glargine (Lantus Solostar U-100 Insulin) 100 unit/mL (3 mL) injection Inject 30 units under the skin every evening. 15 mL 7 09/21/2024 5:39 PM EDT 07/19/2024 insulin lispro (HumaLOG KwikPen Insulin) 100 unit/mL injection Inject 6 units under the skin with breakfast, 12 units with lunch and 12 units with dinner. max 30 units/24 hours 30 mL 3 10/20/2024 4:43 PM EDT 07/19/2024 insulin lispro (HumaLOG) 100 unit/mL injectionIndica tions:Heart transplant recipient Inject 6 Units under the skin before breakfast AND 12 Units before lunch AND 12 Units before evening meal. 15 mL 1 06/06/2024 5:38 PM EST 02/09/2024 levETIRAcetam (Keppra) 750 mg tabletIndicatio ns:Heart transplant recipient Take 1 tablet (750 mg) by mouth twice daily. 60 tablet 2 12/14/2024 4:35 PM EDT 12/13/2024 5 mycophenolate (Cellcept) 250 mg capsuleIndicati ons:Heart transplant recipient Take 1 capsule (250 mg) by mouth twice daily. 60 capsule 11 12/19/2024 12:46 PM EDT 12/19/2024 6 mycophenolate (Cellcept) 500 mg tabletIndicatio ns:Heart transplant recipient Take 1 tablet (500 mg) by mouth twice daily. Take in addition to 250mg cap, total dose 750mg twice daily. 60 tablet 11 12/29/2024 5:19 PM EDT 12/19/2024 6 pantoprazole (ProtoNix) 40 mg EC tabletIndicatio ns:Heart transplant recipient Take 1 tablet (40 mg) by mouth before breakfast. Do not crush, chew, or split. 30 tablet 11 12/14/2024 4:35 PM EDT 12/13/2024 6 pen needle, diabetic (BD Ultra-Fine Mini Pen Needle) 31 gauge x 16 needleIndicatio ns:Heart transplant recipient Use with insulin pen as directed 100 each 2 11/17/2024 3:45 PM EDT 09/19/2024 pravastatin (Pravachol) 80 mg tabletIndicatio ns:Heart transplant recipient Take 1 tablet (80 mg) by mouth once daily. 30 tablet 11 12/19/2024 6 predniSONE (Deltasone) 5 mg tabletIndicatio ns:Heart transplant recipient Take 1 tablet (5 mg) by mouth once daily. 30 tablet 5 12/14/2024 4:35 PM EDT 12/13/2024 sulfamethoxazol e-trimethoprim (Bactrim DS) 800-160 mg tabletIndicatio ns:Heart transplant recipient Take 1 tablet by mouth once daily. 30 tablet 12/14/2024 4:35 PM EDT 12/13/2024 tacrolimus (Prograf) 1 mg capsuleIndicati ons:Heart transplant recipient Take 1 capsule (1 mg) by mouth twice daily. 60 capsule 11 12/14/2024 4:35 PM EDT 11/07/2024 6 tacrolimus (Prograf) 5 mg capsuleIndicati ons:Heart transplant recipient Take 1 capsule (5 mg) by mouth twice daily. 60 capsule 11 12/14/2024 4:35 PM EDT 10/17/2024 6 valGANciclovir (Valcyte) 450 mg tabletIndicatio ns:Cytomegalovi smitha (CMV) viremia Take 1 tablet (450 mg) by mouth twice daily. Do not crush or chew. 30 tablet 1 12/29/2024 5:19 PM EDT 12/26/2024 documented as of this encounter Plan of Treatment Upcoming Encounters Date Type Department Care Team (Late st Contact Info) Description 01/03/2025 10:30 AM EDT Hospital Encounter [facility] [address] [place] [address] Zeina Maradiaga MD 800 [facility] [address] [place] [address] Other cytomegaloviral diseases (Multi-HCC); Heart transplant recipient (Multi-HCC) 01/03/2025 10:30 AM EDT - 01/03/2025 12:00 PM EDT Surgery [facility] [address] [place] [address] eZina Maradiaga MD 800 [facility] [address] [place] [address] Coronary angiography/RHC/bx; AHF slot @ 10:30am; heena lassiter to JOSSY Mitchell [[id number] (CPT )] 01/16/2025 1:45 PM EDT Office Visit [facility] Dermatology [address] [place] [address] Nelida Ayala MD [address] [place] [address] 02/22/2025 2:00 PM EST Office Visit [facility] Neurology [address] [place] [phone] Percy Kapoor MD [facility] [address] [place] [address] 03/20/2025 12:00 PM EST Office Visit [facility] Cardiac Subspecialty [address] [facility] 6th [place] [phone] Charlie Barry MD [address] [place] [address] 07/12/2025 10:30 AM EDT Appointment [facility] Pulmonary Function Lab [address] [facility] Room [address] [place] [phone] 07/12/2025 11:30 AM EDT Office Visit [facility] Pulmonary [address] [facility] [address] [place] [address] Daysi Fink MD [address] [place] [address] Intensive Care Unit/[facility] [address] documented as of this encounter Procedures Procedure Name Priority Date/Time Associated Diagnosis Comments CT HIGH RESOLUTION CHEST WO CONTRAST Routine 12/28/2024 10:46 AM EDT Tracheal stenosis Pulmonary sarcoidosis (Multi-HCC) documented in this encounter Results * CT HIGH RESOLUTION CHEST WO CONTRAST (12/28/2024 10:46 AM EDT) Anatomical Region Laterality Modality Body, Chest Computed Tomogra phy 12/29/2024 9:01 AM EDT Impressions 12/29/2024 9:08 AM EDT 1. Since 04/01/2023, mild improvement of the upper lobe predominant perilymphatic tiny nodules and interstitial thickening, compatible with sarcoidosis. 2. No new consolidation. No air trapping. APPROVED BY STAFF RADIOLOGIST: Chi Galdamez 12/29/2024 9:08 AM EDT Narrative 12/29/2024 9:08 AM EDT NAME: MATTHEW JOEL : 1955 AGE: 69 years GENDER: Male ORD PHYS: DAYSI FINK LOCATION: [facility] 12/28/2024 10:46 AM EDT [id number] (CT HIGH RESOLUTION CHEST WO CONTRAST) [id number] Provided History: Pulmonary sarcoidosis and tracheal stenosis Comparison: CT chest 04/01/2024 Technique: CT of the chest was performed without injected contrast. Radiation optimization: All CT scans at this facility use at least one of these dose optimization techniques: automated exposure control; mA and/or kV adjustment per patient size (includes targeted exams where dose is matched to clinical indication); or iterative reconstruction. Findings: Exam quality: The vasculature patency and abnormal enhancement are not evaluated with noncontrast technique. Lines and tubes: None. Mediastinum and lymph nodes: Unremarkable thyroid. No adenopathy in the chest. Heart and vessels: Heart size is within normal limits. No pericardial effusion. No aortic aneurysm. Lungs and pleura: The subglottic trachea remains focally narrowed measuring 5 mm in diameter compared to 1.8 cm more distally (5:39). There are ill-defined centrilobular and perilymphatic nodules in all lobes, with an upper zone predominance, and there is mild nodularity along the interlobular fissures with nodular thickened and lobular septa, predominantly in the upper lobes. These findings are mild and improved when compared to the previous exam. Mild bronchial thickening in the lower lobes. No new consolidation. No pleural effusion. No air trapping on the expiration images. Bones and chest wall: No suspicious osseous lesions. Small gynecomastia. Upper abdomen: The visualized parts of the organs in the upper abdomen are unremarkable. Procedure Note Chi Galdamez MD - 12/29/2024 NAME: MATTHEW JOEL : 1955 AGE: 69 years GENDER: Male ORD PHYS: GAO IzaRubens FINK LOCATION: [facility] 12/28/2024 10:46 AM EDT [id number] (CT HIGH RESOLUTION CHEST WO CONTRAST) [id number] Provided History: Pulmonary sarcoidosis and tracheal stenosis Comparison: CT chest 04/01/2024 Technique: CT of the chest was performed without injected contrast. Radiation optimization: All CT scans at this facility use at least one ofthese dose optimization techniques: automated exposure control; mA and/orkV adjustment per patient size (includes targeted exams where dose ismatched to clinical indication); or iterative reconstruction. Findings: Exam quality: The vasculature patency and abnormal enhancement are notevaluated with noncontrast technique. Lines and tubes: None. Mediastinum and lymph nodes: Unremarkable thyroid. No adenopathy in thechest. Heart and vessels: Heart size is within normal limits. No pericardialeffusion. No aortic aneurysm. Lungs and pleura: The subglottic trachea remains focally narrowedmeasuring 5 mm in diameter compared to 1.8 cm more distally (5:39). Thereare ill-defined centrilobular and perilymphatic nodules in all lobes, withan upper zone predominance, and there is mild nodularity along theinterlobular fissures with nodular thickened and lobular septa,predominantly in the upper lobes. These findings are mild and improvedwhen compared to the previous exam. Mild bronchial thickening in the lowerlobes. No new consolidation. No pleural effusion. No air trapping on theexpiration images. Bones and chest wall: No suspicious osseous lesions. Small gynecomastia. Upper abdomen: The visualized parts of the organs in the upper abdomen areunremarkable. IMPRESSION: 1. Since 04/01/2023, mild improvement of the upper lobe predominantperilymphatic tiny nodules and interstitial thickening, compatible withsarcoidosis. 2. No new consolidation. No air trapping. 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, unspecified cytomegaloviral infection type documented in this encounter Care Teams Benefits Sales Consultant Relationship Specialty Start Date End Date Name, MD Yoandy [address] [place] [address] PCP - General Aircraft Air Conditioning Mechanic 11/12/23 Glenn Herman MD [address] [place] [address] Referring Physician Cardiology 11/12/23 Edward Handley CPhT [facility] 12/31/23 Jennie Michelle, PharmD [address] [place] [address] Pharmacist Pharmacy 01/27/24 Juan Hutchinson MD 800 [facility] [address] [place] [address] Attending Physician Cardiology 12/19/24 documented as of this encounter
--- OUTSIDE RECORDS SUMMARY | 2024-12-28 11:30 | XMS_ITS | Encounter Summary ---
Author Organization [facility] Address 800 [facility] [address] [place] [address] Care Team Providers Care Compression Molding Machine Tender Name Role Phone Glenn Herman MD Unavailable [phone] Yoandy Tillman MD Primary Care Provider [phone] Edward Handley rehabilitation liaison Unavailable Unavailable Jennie Michelle PharmD Unavailable [phone] Juan Hutchinson MD Unavailable [phone] Reason for Visit * Reason Comments Follow-up Encounter Details Date Type Department Care Team (Late st Contact Info) Description 12/28/2024 11:30 AM EDT Office Visit [facility] Pulmonary [address] [facility] 3rd [place] [address] Daysi Fink MD [address] [place] [address] Intensive Care Unit/[facility] [address] Chronic cough (Primary Dx); Pulmonary sarcoidosis (Multi-HCC); 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 No 11/26/2023 Sex and Gender Information Value Date Recorded Sex Assigned at Male 11/24/2023 1:58 AM EDT Legal Sex Male 12:45 PM EDT Gender Identity Male 11/24/2023 1:58 AM EDT Sexual Orientation Straight 11/24/2023 1: 58 AM EDT documented as of this encounter Last Filed Vital Signs Vital Sign Reading Time Taken Comments Blood Pressure 125/80 12/28/2024 11:21 AM EDT Pulse 108 12/28/2024 11:21 AM EDT Temperature 36.3 C (97.3 F) 12/28/2024 11:21 AM EDT Respiratory Rate 24 12/28/2024 11:21 AM EDT Oxygen Saturation 98% 12/28/2024 11:21 AM EDT RA Inhaled Oxygen Concentration - - Weight 60.9 kg (134 lb 3.2 oz) 12/28/2024 11:21 AM EDT Height 172.7 cm (5' 8 ) 12/28/2024 11:21 AM EDT Body Mass Index 20.41 12/28/2024 11:21 AM EDT documented in this encounter Functional Status * Are you [...] Description 01/03/2025 10:30 AM EDT Hospital Encounter [facility] Cardiac Director Clinical Data [address] [place] [phone] Zeina Maradiaga MD [address] [place] [address] Other cytomegaloviral diseases (Multi-HCC); Heart transplant recipient (Multi-HCC) 01/03/2025 10:30 AM EDT - 01/03/2025 12:00 PM EDT Surgery [facility] Cardiac Director Clinical Data [address] [place] [phone] Zeina Maradiaga MD 800 [facility] [address] [place] [address] Coronary angiography/RHC/bx; AHF slot @ 10:30am; page nubmers to JOSSY Mitchell [[id number] (CPT )] 01/16/2025 1:45 PM EDT Office Visit [facility] Dermatology [address] [place] [address] Nelida Ayala MD [address] [place] [address] 02/22/2025 2:00 PM EST Office Visit [facility] Neurology [address] [place] [phone] Percy Kapoor MD [facility] [address] [place] [address] 03/20/2025 12:00 PM EST Office Visit [facility] Cardiac Subspecialty [address] [facility] 6th [place] [phone] Charlie Barry MD [address] [place] [address] 07/12/2025 10:30 AM EDT Appointment [facility] Pulmonary Function Lab [address] [facility] [address] 5th Floor Room [address] [place] [phone] 07/12/2025 11:30 AM EDT Office Visit [facility] Pulmonary [address] [facility] [address] 3rd [place] [phone] Daysi Fink MD [address] [place] [address] Intensive Care Unit/[facility] [address] Scheduled Orders Name Type Priority Associated Diagnoses Orde r Schedule Spirometry PFT Routine 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) Expected: 06/27/2025 (Approximate), Expires: 12/28/2025 documented as of this encounter Visit Diagnoses Diagnosis Heart transplant recipient- Primary Other cytomegaloviral diseases Chronic cough- Primary Cough Pulmonary sarcoidosis Sarcoidosis 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 Cardiac sarcoidosis Dyspnea and respiratory abnormality Other dyspnea and respiratory abnormality Heart transplant recipient Cytomegalovirus infection, 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, unspecified cytomegaloviral infection type documented in this encounter Care Teams Compression Molding Machine Tender Relationship Specialty Start Date End Date Name, MD Yoandy [address] [place] [address] PCP - General Running Specialist 11/12/23 Glenn Herman MD [address] [place] [address] Referring Physician Cardiology 11/12/23 Edward Handley CPhT [facility] 12/31/23 Jennie Michelle, RadhaD [address] [place] [address] Pharmacist Pharmacy 01/27/24 Juan Hutchinson MD [address] [place] [address] [place] [address] Attending Physician Cardiology 12/19/24 documented as of this encounter
--- NOTE | 2024-12-30 15:17 | A.OFFVIS_ITS ---
Vital Signs 12/30/24 15:33 Height 5 ft 7 in Weight 136 lb 14.513 oz BMI 21.4 BP 100/60 Blood Pressure Location Rt brachial Position Sitting Pulse 98 Pulse Source Pulse Oximeter Pulse Oximetry (%) 100 Oxygen Delivery Method Room Air Intake Visit Reasons: T2DM Intake Note: Patient present today for Type 2 Diabetes Mellitus Last Diabetic eye exam: 08/2024 Last Podiatry Visit: does not have one/ would like a referral Random Glucose: 105 mg/dl HgA1C: 6.5% Author Agent Name: sierra [id number] Accompanied by: Self / Same As Patient Allergies lisinopril Allergy (Mild, Verified 12/30/24 15:35) Swelling Medication List - Last Reconciled 12/30/24 by Ashely Ashford PA-C aspirin 81 mg PO DAILY blood sugar diagnostic (FreeStyle Lite Strips) As directed calcium carbonate 1,250 mg PO DAILY cholecalciferol (vitamin D3) 25 mcg PO DAILY docusate sodium 100 mg PO DAILY FreeStyle Jaswinder 3 Plus Sensor (blood-glucose sensor) every 14 days NS FreeStyle Jaswinder 3 [place] (blood-glucose,coal digger,cont) As directed NS Humalog KwikPen Insulin (insulin lispro) 4 units subcutaneous breakfast, 6 units subcutaneous lunch and 8 units subcutaneous with dinner. NS insulin glargine (Lantus U-100 Insulin) 20 units (0.2 mL) subcut QAM lancets (TRUEplus Lancets) As directed levetiracetam 750 mg PO BID mycophenolate mofetil (CellCept) 750 mg PO BID pantoprazole 40 mg PO DAILY pen needle, diabetic 4 times daily pravastatin 80 mg PO BEDTIME prednisone 10 mg PO DIRECTED sennosides (senna) 8.6 mg PO BEDTIME tacrolimus 6 mg PO BID valganciclovir (Valcyte) 450 mg PO BID HPI HPI T2DM: Details: 68-year-old male presenting for diabetic follow up. Previously follow up with my colleague. 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 Now off prednisone PCP: Yoandy Tillman MD Glucometer: One touch Endo: Dm- A1C 07/2024 6.0%. He is currently on lantus 20 units and Humalog 5-8 units CGM - Usage 98%, average glucose 147, G mi 6.8%. Very hyperglycemic 7%, hyperglycemic 19%, in range 72%, low 2%. Overnight lows. States they are a lot better. Appetite is down. Eye exam- June 2024 Podiatry-does not see- Would like a referral significant other wants consult for pump CV: Blood pressure is 100/60. No chest pains or shortness on breath. Compliant with his regimen of to furosemide, and pravastatin. PFSH Medical History Diabetes Pacemaker Surgical History Hx of heart transplant History of cardiac catheterization (~10/2021) History of cataract surgery Family History Father Diabetes Heart problem Brother Heart attack Social History Alcohol intake: never Patient Tobacco Use Status: Never used Tobacco Physical Exam Vital Signs: Last Vital Signs Pulse 98 12/30/24 15:33 BP 100/60 12/30/24 15:33 Pulse Ox 100 12/30/24 15:33 Oxygen Delivery Method Room Air 12/30/24 15:33 BMI result Body Mass Index 21.4 Const Orientation/consciousness: patient oriented x3 HEENT Ears: hearing grossly normal bilaterally Neck Thyroid: Thyroid normal Lymphatic: no lymphadenopathy noted Resp Auscultation: clear to auscultation bilaterally Cardio Rate: regular rate Rhythm: regular rhythm Heart sounds: S1 normal heart sound present and S2 normal heart sound present Skin General skin exam: no rashes or lesions noted Neuro General: patient oriented x3, gait normal and no focal motor deficits Results AMB Hemoglobin A1c AMB Hemoglobin A1c 6.5 % Last Edit by TOMMIE Silverman on 12/30/24 16:04 Results Reviewed Results Reviewed: Laboratory Tests 04/14/24 12/26/24 11:04 10:59 Creatinine 1.28 Estimated GFR 56 Random Glucose 126 H Urine Creatinine 109.08 Urine Microalbumin 6.0 Microalb/Creat Ratio 5.5 Assessment & Plan Assessment & Plan (1) Type 2 diabetes mellitus with unspecified complications: Code(s): E11.8 - Type 2 diabetes mellitus with unspecified complications Category: Medical (2) Hypoglycemia: Code(s): E16.2 - Hypoglycemia, unspecified Category: Medical Plan We will decrease his mealtime insulin to 4/6/8 and continue glargine 20 units He will follow up in 1 months to discuss pump. Urged to call office if he continues to experience hypoglycemia Orders: Orders AMB Hemoglobin A1c Today E11.8 - Type 2 diabetes mellitus with unspecified complications Referrals Podiatry Referral E11.8 - Type 2 diabetes mellitus with unspecified complications, G62.9 - Polyneuropathy, unspecified Medications: New insulin glargine (Lantus U-100 Insulin) 20 units (0.2 mL) subcut QAM 10 mL 4RF Changed From Humalog KwikPen Insulin (insulin lispro) 6 units subcutaneous breakfast, 6 units subcutaneous lunch and 6 units subcutaneous with dinner. 30 mL 3RF NS Z79.4 - [facility] (current) use of insulin To Humalog KwikPen Insulin (insulin lispro) 4 units subcutaneous breakfast, 6 units subcutaneous lunch and 8 units subcutaneous with dinner. 30 mL 3RF NS Z79.4 - [facility] (current) use of insulin Coding Level of Care Code Est Pt Level 4 (33287) Complex EM visit Add On G2211 Diagnoses Type 2 diabetes mellitus with unspecified complications E11.8 Hypoglycemia E16.2
[2024-12-30 15:33] VITALS: BP 100/60; PULSE 98; O2SAT 100; BMI 21.4
--- OUTSIDE RECORDS SUMMARY | 2024-12-30 15:54 | XMS_ITS | Clinical Summary ---
Author Organization [employer] Address [address] [facility] 7t [place] [address] Care Team Providers Care Fishing Instructor Name Role Phone Name, Yoandy LUGO Primary Care Provider [phone] Allergies Active Allergy Reactions Criticality Noted Date [...] bedtime. 4 Active Sharps Container (BD Sharps Pre K Special Education Teacher) misc For disposal of needles and lancets [...] endurance 11/06 Non-restorable tooth 11/19/2023 History of NC (myocardial infarction) 10/20/2023 Memory problem 10/20/2023 Shortness [...] 's report Asked patient to call his Press Set Up Person regarding his increased weight/swelling for further recommendations. Dysphagia 02/08/2023 Positive colorectal cancer screening using Colog uard test 02/04/2023 Overview (11/03/2023): Negative Colonoscopy 06/2023: urgical Pathology Exam - Order: [id number] Component 4 mo ago Case Report Surgicals Case: [id number] Authorizing Provider: Donny Encarnacion Collected: 2023 0843 [...] special stains are performed at [facility], [place] [address]. Resulting Agency [facility] Specimen Collected: 06/19/23 08:43 Performed by: [facility] Last Resulted: 06/23/23 17:27 [...] were answered. 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 Mild stridor noted today in clinic Discussed with his primary machine plate stacker Dr. Verónica and will work to get [...] anxiety 04/06/2022 Ventricular tachycardia, unspecified 04/06/2022 Other skilled nursing (current) drug therapy 3 Type 2 diabetes [...] upgraded from dual-chamber to biventricular device at [facility] 03/2022. Follows at [facility] cardi Systolic dysfunction 03/13/2022 History of bradycardia 03/13/2022 Family history of prostate cancer 03/13/2022 Complete heart block 04/06/2020 Overview (11/02/2023): Added automatically from request for surgery [id number] Last Assessment & Plan: History of biventricular pacemaker that was upgraded to VASCULAR NURSE defibrillator in September. Device interrogated today with [...] Type Department Care Team Description 11/24/2024 Telephone [facility] [address] [place] [address] Americo Stiles [place] oct recalls 10/05/[address] [address] Keven Horan MD CHART PREP 09/29/2024 Telephone [facility] [address] [place] [address] Yoandy Tillman MD Referral 09/29/[address] [address] NameYoandy MD Hospital Follow-up from Last 3 [...] with others, in a hotel, in a half-way, living outside on the street, on a [...] Description 02/20/2025 10:00 AM EST Office Visit [facility] [address] [place] [address] Name, MD Yoandy [address] [place] [address] Health Maintenance Due Date Last Done Comments [...] complication, without long-term current use of insulin ([facility]) ALBUMIN, RANDOM URINE W/CREATININE Routine 04/14/2024 11:04 AM EST Type 2 diabetes mellitus with other circulatory complication, without long-term current use of insulin ([facility]) LIPID PANEL, STANDARD Routine 06/27/2022 [...] [facility] Microalbumin Urine 6.0 mg/L [facility] Microalbum Creatinine Ratio Ur 5.5 <30 ug/mg cr [facility] Comment:Albumin/Creatinine R atio Reference Ranges: Normal: < 30 ug/mg creatinine Microalbuminuria: 30 - 300 ug/mg creatinineClinical Albuminuria: > 300 ug/mg creatinine Urine (Urine, Random) 04/14/2024 11:04 AM EST 04/14/2024 1:04 PM EST us Yoandy Tillman MD LAB URINE ORDERABLES Final Resul t [facility] [address] [place] [phone] * Lipid Panel, Standard (06/27/2022 9:53 AM EDT) Triglycerides 84 mg/dL [facility] Comment:Desirable Triglyceri de: less than 150 mg/dLBorderline High Triglyceride 150-199 mg/dLHigh Triglyceride: 200-499 mg/dLVery High Triglyceride: greater than or equal to 5OO mg/dL Cholesterol 154 mg/dL [facility] Comment:Desirable Cholestero l: less than 200 mg/dLBorderline High Cholesterol: 200-239 mg/dLHigh Cholesterol: greater than 239 mg/dL LDL Cholesterol Calculated 104 mg/dl [facility] Comment:Desirable LDL: less than 100 mg/dLNear Optimal/Above Optimal LDL: 110- 129 mg/dLBorderline High LDL: 130-159 mg/dLHigh LDL: 160-189 mg/dLVery High LDL: greater than or equal to 190 mg/dL HDL Cholesterol 34 mg/dL [facility] Comment:Desirable HDL: great er than 40 mg/dL Note: This HDL assay may give artificially low results in patients with liver disease. 06/27/2022 9:53 AM EDT 06/27/2022 9:53 AM EDT [facility] External Provider LAB BLO OD ORDERABLES Final Result [facility] [address] [place] [phone] from Last 3 Months or Most Recently Relevant to Health Maintenance Insurance [place] [address] [place] [id number] [facility] MED CARE [facility] STANDARD Care Teams Fishing Instructor Relationship Specialty Start Date End Date Name, MD Yoandy [address] [place] [address] PCP - General Internal Medicine 10/19/23 [facility] 01/19/24
--- OUTSIDE RECORDS SUMMARY | 2024-12-30 15:54 | XMS_ITS | Clinical Summary ---
Author Organization Project [facility] Address [facility] [address] [address] [place] [phone] Phone Care Team Providers Care Brisket Puller Name Role Phone Name, Yoandy LUGO Primary Care Provider [phone] Social History Tobacco Use Types Packs/Day Years [...] file Insurance MEDICARE PART A & B [facility] [address] [place] [address]B [place] PART A [place] [id number] [facility] [address] [place], [place] [address]B MEDICARE PART A & B [facility] FULL Member Subscriber Plan / Payer (Ef fective 2023-Present) Name:Matthew Toro Relation to Subscriber:Self Name:Matthew Toro Payer ID:Not on file Group ID:Not on file Type:Medicaid Address: [address] MEDICARE PART A & B [employer] SAFETY NET FULL MEDICARE PART A & B [facility] SAFETY NET FULL Member Subscriber Plan / Payer (Ef fective 2023-Present) Name:Matthew Toro Relation to Subscriber:Self Name:Avila Margarita Matthew Donny Payer ID:Not on file Group ID:Not on file Type:Medicaid Address: [address] [place] [id number] [facility] FULL B Care Teams Brisket Puller Relationship Specialty Start Date End Date Name, MD Yoandy [address] [place] [address] PCP - General Internal Medicine 11/02/23 Additional Source Comments The information contained in this document represents components of the legal health record. It is not the complete legal health record.[facility]
--- OUTSIDE RECORDS SUMMARY | 2024-12-30 15:54 | XMS_ITS | Encounter Summary ---
Author Organization [facility] Address [address] [facility] [address] [place] [address] Care Team Providers Care Forming Process Worker Name Role Phone Glenn Herman MD Unavailable [phone] Name, Yoandy LUGO Primary Care Provider [phone] Edward Handley resistance brazer Unavailable Unavailable Jennie Michelle PharmD Unavailable [phone] Juan Hutchinson MD Unavailable [phone] Encounter Details Date Type Department Care Team (Late st Contact Info) Description 12/25/2023 Lab Requisition [facility] HLA Lab [address] [place] [phone] Pedro Kline MD [address] [facility] [address] [place] [address] Cardiomyopathy, unspecified (Multi-HCC) Social History Tobacco Use [...] place to sleep or slept in a custodial (including now)? No 11/26/2023 Sex and Gender [...] 11/26/2023 11:17 AM TYT Bethany Washington RN * Do you have [...] Description 01/03/2025 10:30 AM EDT Hospital Encounter [facility] Cardiac Gin Clerk [address] [place] [address] Zeina Maradiaga MD [address] [place] [address] Other cytomegaloviral diseases (Multi-HCC); Heart transplant recipient (Multi-HCC) 01/03/2025 10:30 AM EDT - 01/03/2025 12:00 PM EDT Surgery [facility] Cardiac Gin Clerk [address] [place] [address] Zeina Maradiaga MD [address] [place] [address] Coronary angiography/RHC/bx; AHF slot @ 10:30am; page numarioers to JOSSY Mitchell [[id number] (CPT )] 01/16/2025 1:45 PM EDT Office Visit [facility] Dermatology [address] [place] [address] Nelida Ayala MD 800 [place] [address] 02/22/2025 2:00 PM EST Office Visit [facility] Neurology [address] [place] [phone] Percy Kapoor MD [facility] [address] [place] [address] 03/20/2025 12:00 PM EST Office Visit [facility] Cardiac Subspecialty [address] [facility] 6th [place] [phone] Charlie Barry MD [address] [place] [address] 07/12/2025 10:30 AM EDT Appointment [facility] Pulmonary Function Lab [address] [facility] [address] [facility] 5th Floor Room [address] [place] [phone] 07/12/2025 11:30 AM EDT Office Visit [facility] Pulmonary [address] [facility] [address] 3rd [place] [address] Daysi Fink MD [address] [place] [address] Intensive Care Unit/[facility] [address] documented as of this encounter Procedures Procedure Name Priority Date/Time Associated Diagnosis Comments HLA CONSULTATION Routine 12/25/2023 8:41 AM EDT Cardiomyopathy, unspecified (Multi-HCC) documented in this encounter Results * HLA Consultation (12/25/2023 8:41 AM EDT) PDF Attached See PDF Document 12/26/2023 3:15 PM EDT [facility] HLA LAB Blood Venous blood specimen / Unknown 12/25/2023 8:41 AM EDT 12/25/2023 7:39 PM EDT us Pedro Kline MD LAB BLOOD ORDERABLES Maral l Result [facility] [address] [place] [address], documented in this encounter Visit Diagnoses Diagnosis Cardiomyopathy, unspecified Heart transplant recipient- Primary Other cytomegaloviral diseases Heart transplant recipient Cytomegalovirus infection, 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, unspecified cytomegaloviral infection type documented in this encounter Care Teams Forming Process Worker Relationship Specialty Start Date End Date Name, MD Yoandy [address] [place] [address] PCP - General Tubing Drier 11/12/23 Glenn Herman MD [address] [place] [address] Referring Physician Cardiology 11/12/23 Edward Handley, resistance brazer Vacuum Applicator Operator Pharmacy 12/31/23 Jennie Michelle, PharmD [address] [place] [address] Pharmacist Pharmacy 01/27/24 Juan Hutchinson MD [address] [facility] [address] [place] [address] Attending Physician Cardiology 12/19/24 documented as of this encounter
--- OUTSIDE RECORDS SUMMARY | 2024-12-30 15:54 | XMS_ITS | Encounter Summary ---
Author Organization [facility] Address [address] [facility] [address] [place] [address] Care Team Providers Care Community Chest Officer Name Role Phone Glenn Herman MD Unavailable [phone] Name, Yoandy LUGO Primary Care Provider [phone] Edward Handley oxygen equipment technician Unavailable Unavailable Jennie Michelle PharmD Unavailable [phone] Juan Hutchinson MD Unavailable [phone] Encounter Details Date Type Department Care Team (Late st Contact Info) Description 12/26/2024 Orders Only [facility] Infectious Disease 260 [facility] 3rd [place] [address] Lena Cortes, LOGISTICIAN [address] [place] [phone] Cytomegalovirus (CMV) viremia (Multi-HCC) Social History Tobacco Use Types Packs/Day [...] Bethany Washington RN documented in this encounter Progress Notes * Lena Cortes NP - 12/26/2024 9:57 AM EDT Patient restarted on CMV treatment new script sent to mail order pharmacy. Lena Cortes NP 12/26/2024 9:59 AM Cosigned by Jewell Martínez MD at 12/26/2024 10:42 AM EDT documented in this encounter Plan of Treatment Upcoming Encounters Date Type Department Care Team (Late st Contact Info) Description 01/03/2025 10:30 AM EDT Hospital Encounter [facility] Cardiac General Activities Therapist [address] [place] [address] Zeina Maradiaga MD [address] [address] Other cytomegaloviral diseases (Multi-HCC); Heart transplant recipient (Multi-HCC) 01/03/2025 10:30 AM EDT - 01/03/2025 12:00 PM EDT Surgery [facility] Cardiac General Activities Therapist [address] [place] [address] Zeina Maradiaga MD [address] [place] [address] Coronary angiography/RHC/bx; F slot @ 10:30am; page sravani to JOSSY Mitchell [[id number] (CPT )] 01/16/2025 1:45 PM EDT Office Visit [facility] Dermatology [address] [place] [address] Nelida Ayala MD 800 [place] [address] 02/22/2025 2:00 PM EST Office Visit [facility] Neurology [address] [place] [phone] Percy Kapoor MD [facility] [address] [place] [address] 03/20/2025 12:00 PM EST Office Visit [facility] Cardiac Subspecialty [address] [facility] 6th [place] [phone] Charlie Barry MD 800 [place] [address] 07/12/2025 10:30 AM EDT Appointment [facility] Pulmonary Function Lab [address] [facility] 5th Floor Room [address] [place] [phone] 07/12/2025 11:30 AM EDT Office Visit [facility] Pulmonary [address] [facility] [address] 3rd [place] [phone] Daysi Fink MD [address] [place] [address] Intensive Care Unit/[facility] [address] documented as of this encounter Visit Diagnoses Diagnosis Heart transplant recipient- Primary Other cytomegaloviral diseases Cytomegalovirus (CMV) viremia Cytomegaloviral disease Heart transplant recipient Cytomegalovirus infection, 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, unspecified cytomegaloviral infection type documented in this encounter Care Teams Community Chest Officer Relationship Specialty Start Date End Date Name, MD Yoandy [address] [place] [address] PCP - General Watch Crystal Grinder 11/12/23 Glenn Herman MD [address] [place] [address] Referring Physician Cardiology 11/12/23 Edward Handley CPhT Airline Attendant Pharmacy 12/31/23 Jennie Michelle, PharmD [address] [place] [address] Pharmacist Pharmacy 01/27/24 Juan Hutchinson MD 800 [facility] [address] [place] [address] Attending Physician Cardiology 12/19/24 documented as of this encounter
--- OUTSIDE RECORDS SUMMARY | 2024-12-30 15:54 | XMS_ITS | Encounter Summary ---
Author Organization [facility] Address [address] [facility] [address] [place] [address] Care Team Providers Care Certification And Selection Specialist Name Role Phone Glenn Herman MD Unavailable [phone] NameYoandy MD Primary Care Provider Edward Handley cattle broker Unavailable Unavailable Jennie Michelle PharmD Unavailable [phone] Juan Hutchinson MD Unavailable [phone] Encounter Details Date Type Department Care Team (Late st Contact Info) Description 12/20/2024 Results Follow-Up [facility] Infectious Disease 260 [facility] 3rd [place] [address] Lena Cortes, THIRD LOADER [address] [place] [phone] Social History Tobacco Use Types Packs/Day Years [...] place to sleep or slept in a fdc (including now)? No 11/26/2023 Sex and Gender [...] Description 01/03/2025 10:30 AM EDT Hospital Encounter [facility] Cardiac Huc Ob [address] [place] [address] Zeina Maradiaga MD [address] [place] [address] Other cytomegaloviral diseases (Multi-HCC); Heart transplant recipient (Multi-HCC) 01/03/2025 10:30 AM EDT - 01/03/2025 12:00 PM EDT Surgery [facility] Cardiac Huc Ob [address] [place] [address] Zeina Maradiaga MD [address] [place] [address] Coronary angiography/RHC/bx; AHF slot @ 10:30am; page nubmers to JOSSY Mitchell [[id number] (CPT )] 01/16/2025 1:45 PM EDT Office Visit [facility] Dermatology [address] [place] [address] Nelida Ayala MD 800 [place] [address] 02/22/2025 2:00 PM EST Office Visit [facility] Neurology [address] [place] [address] Percy Kapoor MD [facility] [address] [place] [address] 03/20/2025 12:00 PM EST Office Visit [facility] Cardiac Subspecialty 860 [facility] 6th [place] [phone] Charlie Barry MD 800 [place] [address] 07/12/2025 10:30 AM EDT Appointment [facility] Pulmonary Function Lab 800 [facility] [address] [facility] 5th Floor Room [address] [place] [phone] 07/12/2025 11:30 AM EDT Office Visit [facility] Pulmonary [address] [facility] [address] 3rd [place] [phone] Daysi Fink MD [address] [place] [address] Intensive Care Unit/[facility] [address] documented as of this encounter Visit Diagnoses Not on filedocumented in this encounter Care Teams Certification And Selection Specialist Relationship Specialty Start Date End Date Name, MD Yoandy [address] [place] [address] PCP - General Shipfitters Supervisor 11/12/23 Glenn Herman MD [address] [place] [address] Referring Physician Cardiology 11/12/23 Edward Handley, cattle broker Freelance Interpreter/Translator Pharmacy 12/31/23 Jennie Michelle, PharmD [address] [place] [address] Pharmacist Pharmacy 01/27/24 Juan Hutchinson MD [address] [place] [address] [place] [address] Attending Physician Cardiology 12/19/24 documented as of this encounter
--- OUTSIDE RECORDS SUMMARY | 2024-12-30 15:54 | XMS_ITS | Clinical Summary ---
Author Organization [facility] Address [address] [place] [address] Care Team Providers Care Eclectic Doctor Name Role Phone Glenn Herman MD Unavailable [phone] Yoandy Tillman MD Primary Care Provider [phone] Edward Handley can closing machine tender Unavailable Unavailable Jennie Michelle PharmD Unavailable [phone] Bridger Hernandez MD Unavailable [phone] Allergies Active Allergy Reactions Criticality Noted Date [...] calcium (1,250 mg) tabletIndications :Heart transplant recipient Take 1 tablet (1,250 mg) by mouth with breakfast and with evening meal. 180 tablet 3 10/21/19 25 4:43 PM EDT 01/18 Active alcohol swabs pads, medicatedIndicati ons:Heart transplant recipient Swab prior to testing and insulin administration as directed 300 each 1 04/04/20 24 4:11 PM EST 2023 Active amoxicillin (Amoxil) 500 mg capsule Take 2,000 mg by mouth 1 (one) time if needed (dentist). 2023 Active insulin lispro (HumaLOG) 100 unit/mL injectionIndicati ons:Heart transplant recipient Inject 6 Units under the skin before breakfast AND 12 Units before lunch AND 12 Units before evening meal. 15 mL 1 06/07/19 25 5:38 PM EST 2023 Active Additional Information Patient taking differently: Inject 5 Units under the skin before breakfast AND 6 Units before lunch AND 6 Units before evening meal., Reported on 12/19/2024 insulin glargine (Lantus Solostar U-100 Insulin) 100 unit/mL (3 mL) injection Inject 30 units under the skin every evening. 15 mL 7 09/22/19 25 5:39 PM EDT 2024 Active Additional Information Patient taking differently: 22 UnitssubcutaneousEvery morning, Takes 22mg every am, Reason: taking 22 units every am, Reported on 12/19/2024 insulin lispro (HumaLOG KwikPen Insulin) 100 unit/mL injection Inject 6 units under the skin with breakfast, 12 units with lunch and 12 units with dinner. max 30 units/24 hours 30 mL 3 10/21/19 25 4:43 PM EDT 2024 Active Additional Information Patient not taking.Reported on 12/19/2024 pen needle, diabetic (BD Ultra-Fine Mini Pen Needle) 31 gauge x 3/16 needleIndications :Heart transplant recipient Use with insulin pen as directed 100 each 2 11/18/19 25 3:45 PM EDT 2024 Active fluticasone (Flonase) 50 mcg/actuation nasal sprayIndications: Chronic cough Administer 1 spray into each nostril once daily. Shake gently. Before first use, prime pump. After use, clean tip and replace cap. 16 g 3 12/15/19 25 4:35 PM EDT 01/13 Active tacrolimus (Prograf) 5 mg capsuleIndication s:Heart transplant recipient Take 1 capsule (5 mg) by mouth twice daily. 60 capsule 11 12/15/19 25 4:35 PM EDT 10/17 Active tacrolimus (Prograf) 1 mg capsuleIndication s:Heart transplant recipient Take 1 capsule (1 mg) by mouth twice daily. 60 capsule 12/15/19 25 4:35 PM EDT 11/07 Active famotidine (Pepcid) 20 mg tabletIndications :Heart transplant recipient Take 1 tablet (20 mg) by mouth before evening meal. 30 tablet 2 12/15/19 25 4:35 PM EDT 02/05 Active cholecalciferol, vitamin D3, (Vitamin D-3) 25 MCG (1000 UT) tabletIndications :Heart transplant recipient Take 1 tablet (1,000 Units) by mouth once daily. 30 tablet 11/18/19 25 3:45 PM EDT 11/15 Active aspirin 81 mg chewable tabletIndications :Heart transplant recipient Chew 1 tablet (81 mg) once daily. 30 tablet 11/18/19 25 3:45 PM EDT 11/15 Active predniSONE (Deltasone) 5 mg tabletIndications :Heart transplant recipient Take 1 tablet (5 mg) by mouth once daily. 30 tablet 5 12/15/19 4:35 PM EDT 06/11 Active pantoprazole (ProtoNix) 40 mg EC tabletIndications :Heart transplant recipient Take 1 tablet (40 mg) by mouth before breakfast. Do not crush, chew, or split. 30 tablet 12/15/19 25 4:35 PM EDT 12/13 Active sulfamethoxazole- trimethoprim (Bactrim DS) 800-160 mg tabletIndications :Heart transplant recipient Take 1 tablet by mouth once daily. 30 tablet 12/15/19 25 4:35 PM EDT 2024 Active levETIRAcetam (Keppra) 750 mg tabletIndications :Heart transplant recipient Take 1 tablet (750 mg) by mouth twice daily. 60 tablet 2 12/15/19 25 4:35 PM EDT 03/13 Active mycophenolate (Cellcept) 250 mg capsuleIndication s:Heart transplant recipient Take 1 capsule (250 mg) by mouth twice daily. 60 capsule 12/20/19 12:46 PM EDT 12/19 Active Additional Information Patient not taking.Reason: has not taken in 1 week as said he didnt get it yet from [facility], Reported on 12/19/2024 mycophenolate (Cellcept) 500 mg tabletIndications :Heart transplant recipient Take 1 tablet (500 mg) by mouth twice daily. Take in addition to 250mg cap, total dose 750mg twice daily. 60 tablet 12/30/19 5:19 PM EDT 12/19 Active pravastatin (Pravachol) 80 mg tabletIndications :Heart transplant recipient Take 1 tablet (80 mg) by mouth once daily. 30 tablet 12/19 Active bisacodyl (Dulcolax) 5 mg EC tablet Take 5 mg by mouth if needed each day for constipation. Do not crush, chew, or split. Ac tive valGANciclovir (Valcyte) 450 mg tabletIndications :Cytomegalovirus (CMV) viremia Take 1 tablet (450 mg) by mouth twice daily. Do not crush or chew. 30 tablet 1 12/30/19 5:19 PM EDT 01/25 Active dextromethorphan- guaifenesin (Robitussin DM) 10-100 mg/5 mL syrupIndications: Chronic cough Take 5 mL by mouth if needed in the morning, at noon, and at bedtime for cough for up to 10 days. 118 mL 01/07 Active pantoprazole (ProtoNix) 40 mg EC tabletIndications :Heart transplant recipient Take 1 tablet (40 mg) by mouth before breakfast. Do not crush, chew, or split. 30 tablet 11/18/19 3:45 PM EDT 12/13 Discont inued(R eorder) sulfamethoxazole- trimethoprim (Bactrim DS) 800-160 mg tabletIndications :Heart transplant recipient Take 1 tablet by mouth once daily. 30 tablet 11 11/18/19 3:45 PM EDT 12/13 Discont inued(R eorder) pravastatin (Pravachol) 80 mg tabletIndications :Heart transplant recipient Take 1 tablet (80 mg) by mouth once daily. 30 tablet 11 12/13 Discont inued(R eorder) predniSONE (Deltasone) 5 mg tabletIndications :Heart transplant recipient Take 1 tablet (5 mg) by mouth once daily. 30 tablet 5 11/18/19 25 3:45 PM EDT 12/13 Discont inued(R eorder) levETIRAcetam (Keppra) 750 mg tabletIndications :Heart transplant recipient Take 1 tablet (750 mg) by mouth twice daily. 60 tablet 2 11/18/19 3:45 PM EDT 12/13 Discont inued(R eorder) valGANciclovir (Valcyte) 450 mg tabletIndications :Other cytomegaloviral diseases Take 1 tablet (450 mg) by mouth twice daily. Do not crush or chew. 180 tablet 10/07/19 25 2:12 PM EDT 12/19 Discont inued(T herapy complet ed) mycophenolate (Cellcept) 500 mg tabletIndications :Heart transplant recipient Take 1 tablet (500 mg) by mouth twice daily. Take in addition to 250mg cap, total dose 750mg twice daily. 60 tablet 11 12/15/19 25 4:35 PM EDT 12/13 Discont inued(R eorder) mycophenolate (Cellcept) 250 mg capsuleIndication s:Heart transplant recipient Take 1 capsule (250 mg) by mouth twice daily. Take in addition to 500mg tab, total dose 750mg twice daily. 60 capsule 11 11/09/19 25 4:01 PM EDT 12/13 Discont inued(R eorder) mycophenolate (Cellcept) 250 mg capsuleIndication s:Heart transplant recipient Take 1 capsule (250 mg) by mouth twice daily. Take in addition to 500mg tab, total dose 750mg twice daily. 60 capsule 11 12/13 Discont inued(R eorder) pravastatin (Pravachol) 80 mg tabletIndications :Heart transplant recipient Take 1 tablet (80 mg) by mouth once daily. 30 tablet 11 12/19 Discont inued(R eorder) mycophenolate (Cellcept) 250 mg capsuleIndication s:Heart transplant recipient Take 1 capsule (250 mg) by mouth twice daily. Take in addition to 500mg tab, total dose 750mg twice daily. 60 capsule 11 12/19 Discont inued(T herapy complet ed) mycophenolate (Cellcept) 500 mg tabletIndications :Heart transplant recipient Take 1 tablet (500 mg) by mouth twice daily. Take in addition to 250mg cap, total dose 750mg twice daily. 60 tablet 11 12/19 Discont inued(R eorder) valGANciclovir (Valcyte) 450 mg tabletIndications :Cytomegalovirus (CMV) viremia Take 1 tablet (450 mg) by mouth once daily. Do not crush or chew. 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 S/p multiple dilations in the past. Able to pass a 7.0 ETT, but no larger. 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 Compliant with Torsemide - taking full dose per 's report Asked patient to call his Railroad Inspector regarding his increased weight/swelling for further recommendations. Last Assessment & Plan: reports he's up a few pounds from his baseline weight, worsening leg swelling over the last few days. Compliant with Torsemide - taking full dose per 's report Asked patient to call his Railroad Inspector regarding his increased weight/swelling for further recommendations. Ventricular tachycardia 04/06/202208/2023 Overview (11/26/2023): Last Assessment & Plan: Prior VT arrest in September. ICD in situ. On low-dose beta-alis. No obstructive CAD on cardiac catheterization in September. Last Assessment & Plan: Prior VT arrest in September. ICD in situ. On low-dose beta-alis. No obstructive CAD on cardiac catheterization in September. 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); Cardiac sarcoidosis (HHS-HCC); Dyspnea and respiratory abnormality 12/28/2024 10:16 AM EDT - 12/28/2024 11:59 PM EDT Hospital Encounter [facility] Imaging [address] [place] [address] Cytomegalovirus infection, unspecified cytomegaloviral infection type (Multi-HCC); Tracheal stenosis; Pulmonary sarcoidosis (Multi-HCC) Discharge Disposition: Home or self care 12/28/2024 Travel 12/26/2024 Orders Only [facility] Infectious Disease [address] [phone] Lena Cortes NP Cytomegalovirus (CMV) viremia (Multi-HCC) 12/20/2024 Results Follow-Up [facility] Infectious Disease [address] [phone] Lena Cortes BOWLING ALLEY MANAGER 12/19/2024 11:40 AM EDT - 12/19/2024 11:59 PM EDT Hospital Encounter [facility] Radiology [address] [place] [address] Other cytomegaloviral diseases (Multi-HCC); Heart transplant recipient (Multi-HCC) Discharge Disposition: Home or self care 12/19/2024 11:00 AM EDT Office Visit [facility] Cardiac Subspecialty [address] [phone] Bridger Hernandez MD Type 2 diabetes mellitus with other specified complication, unspecified whether long wall mining machine tender insulin use (Multi-HCC) (Primary Dx); Other cytomegaloviral diseases (Multi-HCC); Heart transplant recipient (Multi-HCC); Mixed hyperlipidemia ; Prostate cancer screening; Sarcoidosis 12/19/2024 7:36 AM EDT - 12/19/2024 11:39 AM EDT Hospital Encounter [facility] Cardiac Echo [address] [facility] [address] [place] [address] Other cytomegaloviral diseases (Multi-HCC); Heart transplant recipient (Multi-HCC); Heart transplant rejection (Multi-HCC) Discharge Disposition: Home or self care 12/19/2024 Telephone [facility] Cardiac Subspecialty [address] [phone] Kailyn Hess Appointment; Follow-up 12/19/2024 Travel 12/14/2024 Orders Only [facility] Infectious Disease [address] [phone] Lena Cortes NP Heart transplant recipient ([facility]) (Primary Dx); Other cytomegaloviral diseases (Multi-HCC) 12/13/2024 Refill [facility] Infectious Disease [address] [phone] Lena Cortes NP Other cytomegaloviral diseases ([facility]) 12/13/2024 Refill [facility] Cardiac Subspecialty [address] [phone] Jose Angel Nunez NP Heart transplant recipient ([facility]) 12/13/2024 Refill [facility] Cardiology [address] [phone] Izaiah Martinez MD Heart transplant recipient ([facility]) 12/13/2024 Refill [facility] Cardiology [address] [phone] Pedro Kline MD Heart transplant recipient ([facility]) 12/13/2024 Refill [facility] Cardiac Subspecialty [address] [phone] Sharon Savage NP Heart transplant recipient ([facility]) 12/02/2024 Telephone [facility] Patient Access [address] [place] [address] , Barrera-Chi 11/21/2024 Telephone [facility] Cardiac Subspecialty [address] [phone] Kailyn Hess Appointment 11/16/2024 Telephone [facility] Cardiac Subspecialty [address] [phone] JimenaKailyn Appointment 11/15/2024 Refill [facility] Cardiology [address] [facility] [address] [place] [address] Pedro Kline MD Heart transplant recipient (Multi-HCC) 11/08/2024 Results Follow-Up [facility] Infectious Disease [address] [phone] Lena Cortes NP 11/07/2024 1:00 PM EDT Office Visit [facility] Infectious Disease [address] [phone] Chi Barton MD Other cytomegaloviral diseases (Multi-HCC) (Primary Dx); Immunosuppressed status (Multi-HCC); Heart transplant recipient (Multi-HCC); Preventative health care; Other fatigue; Upper airway cough syndrome 11/07/2024 12:15 PM EDT Office Visit [facility] Cardiac Subspecialty [address] [phone] Jose Angel Nunez NP Heart transplant recipient (Multi-HCC) (Primary Dx); Essential hypertension, benign ; Mixed hyperlipidemia ; Type 2 diabetes mellitus with other specified complication, unspecified whether long wall mining machine tender insulin use (Multi-HCC); Subglottic stenosis; Sarcoidosis; Pulmonary nodules; Other cytomegaloviral diseases (Multi-HCC); Observed seizure-like activity (Multi-HCC) 11/07/2024 Travel 10/25/2024 Telephone [facility] Infectious Disease [address] [phone] Lena Cortes NP 10/25/2024 Telephone [facility] Infectious Disease [address] [phone] Chi Barton MD req labs orders 10/24/2024 Telephone [facility] Infectious Disease [address] [phone] Lena Cortes NP 10/17/2024 Orders Only [facility] Cardiac Subspecialty [address] [phone] Daniele Barnhart MD 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) 10/11/2024 Telephone [facility] Infectious Disease [address] [phone] Lena Cortes, BOWLING ALLEY MANAGER 10/04/2024 Telephone [facility] Infectious Disease [address] [phone] Lena Cortes BOWLING ALLEY MANAGER 10/04/2024 Orders Only [facility] Cardiac Subspecialty [address] [phone] Daniele Barnhart MD Cytomegalovirus infection, unspecified cytomegaloviral infection type (Multi-HCC) 10/03/2024 2:31 PM EDT - 10/03/2024 11:59 PM EDT Hospital Encounter [facility] Radiology [address] [place] [address] Chronic cough Discharge Disposition: Home or self care 10/03/2024 11:00 AM EDT - 10/03/2024 2:30 PM EDT Hospital Encounter [facility] Cardiac Echo [address] [facility] [address] [place] [address] Cytomegalovirus infection, unspecified cytomegaloviral infection type (Multi-HCC); Heart transplant recipient (Multi-HCC) Discharge Disposition: Home or self care 10/03/2024 9:40 AM EDT Office Visit [facility] Cardiac Subspecialty [address] [phone] Daniele Barnhart MD Heart transplant recipient (Multi-HCC) (Primary Dx); Essential hypertension, benign ; Mixed hyperlipidemia ; Type 2 diabetes mellitus with other specified complication, unspecified whether long wall mining machine tender insulin use (Multi-HCC); Cytomegalovirus infection, unspecified cytomegaloviral infection type (Multi-HCC) 10/03/2024 9:30 AM EDT Office Visit [facility] Infectious Disease [address] [phone] Chi Barton MD Chronic cough (Primary Dx); Fever, unspecified fever cause; Heart transplant recipient (Multi-HCC); Immunosuppressed status (Multi-HCC); Other cytomegaloviral diseases (Multi-HCC); Weight loss; Preventative health care; Pancytopenia (CMS-HCC) 10/03/2024 Travel 09/29/2024 Telephone [facility] Cardiac Subspecialty [address] [phone] Provider, Generic External Data 09/29/2024 Refill [facility] Cardiac Subspecialty [address] [phone] Zackery Paulino RN Cytomegalovirus infection, unspecified cytomegaloviral infection type (Multi-HCC); Heart transplant recipient (Multi-HCC) from Last 3 Months Immunizations Immunization Administration [...] Vaccine Formula 12+ (Deferred: Not available from volunteer services manager - Per pharmacy vaccine is out [...] Mass Index 20.41 12/28/2024 11:21 AM EDT Plan of Treatment Upcoming Encounters Date Type Department Care Team (Late st Contact Info) Description 01/03/2025 10:30 AM EDT Hospital Encounter [facility] Cardiac Cash Controller [address] [place] [phone] Zeina Maradiaga MD [address] [address] Other cytomegaloviral diseases (Multi-HCC); Heart transplant recipient (Multi-HCC) 01/03/2025 10:30 AM EDT - 01/03/2025 12:00 PM EDT Surgery [facility]iac Cash Controller [address] [place] [phone] Zeina Maradiaga MD [address] [address] Coronary angiography/RHC/bx; AHF slot @ 10:30am; page nubmers to JOSSY Nunez [[id number] (CPT )] 01/16/2025 1:45 PM EDT Office Visit [facility] Dermatology [address] [place] [address] Nelida Ayala MD 800 [place] [address] 02/22/2025 2:00 PM EST Office Visit [facility] Neurology [address] [place] [address] Percy Kapoor MD [address] [address] 03/20/2025 12:00 PM EST Office Visit [facility] Cardiac Subspecialty [address] [facility] [address] [place] [phone] Charlie Barry MD [address] [place] [phone] 07/12/2025 10:30 AM EDT Appointment [facility] Pulmonary Function Lab [address] [facility] [address] [facility] 5th Floor Room [address] [place] [phone] 07/12/2025 11:30 AM EDT Office Visit [facility] [address] [facility] [address] [place] [phone] Daysi Fink MD [address] [facility] Intensive Care Unit/[facility] [address] Health Maintenance Due Date Last Done Comments CT Colonography 1955 FIT 1955 FOBT 1955 Sigmoidoscopy 1955 Diabetes: Retinopathy Screening 1955 Diabetes: Foot Exam 06/18/1965 Medicare Annual Wellness (AWV) 06/04/2021 Hepatitis B Vaccines (2 of 3 - 19+ 3-dose series) 12/24/2023 11/26/2023 Zoster Vaccines (2 of 2) 01/21/2024 11/26/2023 Depression Screening 04/06/2024 Diabetes: Urine Protein Screening 11/25/2024 11/26/2023, 01/12/2023, 01/12/2023 COVID-19 Vaccine (5 - Mixed Product risk 2023- season) 12/05/2024 02/05/2024, 02/25/2022, 02/25/2022, Additional history exists Influenza Vaccine (#1) 2024 12/16/2023, 2022 Diabetes: Hemoglobin A1C 12/19/20252 025, 07/27/2024, 05/26/2024, Additional history exists High Risk LDL 12/19/2025 12/19/2024, 08/0 07/2024, 10/03/2024, Additional history exists Lipid Panel 12/19/2025 12/19/2024, 08/0 07/2024, 10/03/2024, Additional history exists FIT-DNA 01/21/2026 01/21/2023, 01/04, 01/21/2023 DTaP/Tdap/Td Vaccines (2 - Td or Tdap) 05/30/2031 05/30/2021 Colonoscopy 06/18/2033 2023, 06/04, 2023 Colorectal Cancer Screening 06/18/2033 Pneumococcal Vaccine: 50+ Years Completed 01/12/2023, 05/30/2021 Hepatitis C Screening Completed 01/26/2024 , 11/24/2023, 11/24/2023, Additional history exists Diabetes Screening Discontinued 12/19/2024, 0 05/26/2024, 05/26/2024, Additional history exists HIB Vaccines Aged Out [...] this topic Medical Devices Implanted Type Area Dinner Cook Device Identifier Shelf Expiration Date Model / Serial / Lot Home Planning Consultant Salesperson-D [employer] Icd-10/02/2022 Implanted:09/05 (Quantity not on file) ROCK DUST SPRAYER-D ICD Chest [employer] Graft Hemashield Str 10x30 - [id number] Implanted:Qty: 1 on 12/22/2023 at [facility] Graft Right: Axilla [employer] 09/03/2028 [id number] / [id number] / Impella- 024 Implanted:12/05 (Quantity not on file) Impella Heart Procedures Procedure Name Priority Date/Time Associated Diagnosis Comments CT HIGH RESOLUTION CHEST WO CONTRAST Routine 12/28/2024 10:46 AM EDT Tracheal stenosis Pulmonary sarcoidosis (Multi-HCC) XR CHEST 2 VIEWS Routine 12/19/2024 12:4 4 PM EDT Heart transplant recipient (Multi-HCC) HEMOGLOBIN A1C STAT 12/19/2024 12:15 PM EDT Heart transplant recipient (Multi-HCC) Type 2 diabetes mellitus with other specified complication, unspecified whether fpc insulin use (Multi-HCC) PSA TOTAL, SCREEN STAT 12/19/2024 12: 15 PM EDT Heart transplant recipient (Multi-HCC) Prostate cancer screening CMV DNA, QUANTITATIVE, RT-PCR STAT 12/19/2024 12:15 PM EDT Heart transplant recipient (Multi-HCC) CYSTATIN C WITH EGFR STAT 12/19/2024 12:15 PM EDT Heart transplant recipient (Multi-HCC) TACROLIMUS LEVEL STAT 12/19/2024 12:1 5 PM EDT Heart transplant recipient (Multi-HCC) HEPATIC FUNCTION PANEL STAT 12/19/2024 12:15 PM EDT Heart transplant recipient (Multi-HCC) URIC ACID STAT 12/19/2024 12:15 PM EDT Heart transplant recipient (Multi-HCC) LIPID PANEL STAT 12/19/2024 12:15 PM EDT Heart transplant recipient (Multi-HCC) Mixed hyperlipidemia CK STAT 12/19/2024 12:15 PM EDT Heart transplant recipient (Multi-HCC) LDH STAT 12/19/2024 12:15 PM EDT Heart transplant recipient (Multi-HCC) PHOSPHORUS STAT 12/19/2024 12:15 PM EDT Heart transplant recipient (Multi-HCC) MAGNESIUM STAT 12/19/2024 12:15 PM EDT Heart transplant recipient (Multi-HCC) COMPREHENSIVE METABOLIC PANEL STAT 12/19/2024 12:15 PM EDT Heart transplant recipient (Multi-HCC) CBC W/DIFF STAT 12/19/2024 12:15 PM EDT Heart transplant recipient (Multi-HCC) CMV DNA, QUANTITATIVE, RT-PCR Routine 12/19/2024 12:14 PM EDT Heart transplant recipient (Multi-HCC) Other cytomegaloviral diseases (Multi-HCC) ECG 12-LEAD Routine 12/19/2024 10:45 AM EDT Type 2 diabetes mellitus with other specified complication, unspecified whether fpc insulin use (Multi-HCC) DOBUTAMINE STRESS ECHO (61737) Routine 12/19/2024 9:38 AM EDT Heart transplant recipient (Multi-HCC) Heart transplant rejection (Multi-HCC) ALLOMAP HEART Routine 11/07/2024 2:20 PM EDT [...] COMPLETE 2D W/ SPECTRAL AND COLOR DOPPLER ([id number]) Routine 10/03/2024 11:42 AM EDT Heart transplant recipient (Multi-HCC) HCV RNA, QUANTITATIVE, PCR (MONITORING) Routine 01/26/2024 10:30 AM EDT ALBUMIN, URINE, RANDOM (INCLUDING CREATININE) Routine 11/26/2023 1:50 PM EDT from Last 3 Months or Most Recently Relevant to Health Maintenance Results * CT HIGH RESOLUTION CHEST WO [...] Narrative 12/29/2024 9:08 AM EDT NAME: MATTHEW AVILA : 1955 AGE: 69 years GENDER: Male ORD PHYS: DAYSI FINK LOCATION: [facility] 12/28/2024 10:46 AM EDT [id number] (CT HIGH RESOLUTION CHEST WO CONTRAST) [id number] Provided History: Pulmonary sarcoidosis and tracheal stenosis [...] Chi Galdamez MD - 12/29/2024 NAME: MATTHEW AVILA : 1955 AGE: 69 years GENDER: Male ORD PHYS: DAYSI FINK LOCATION: [facility] 12/28/2024 10:46 AM EDT [id number] (CT HIGH RESOLUTION CHEST WO CONTRAST) [id number] Provided History: Pulmonary sarcoidosis and tracheal stenosis [...] RADIOLOGIST: Chi Galdamez 12/29/2024 9:08 AM EDT us Daysi Fink MD IMG CT PROCEDURES Final Re sult * XR CHEST 2 VIEWS (12/19/2024 12:44 PM EDT) Only the most recent of2 resultswithin the time period is included. Anatomical Region Laterality Modality Chest Computed Radiogr aphy 12/19/2024 1:13 PM EDT Impressions 12/19/2024 1:16 PM EDT No acute cardiopulmonary abnormality. APPROVED BY STAFF RADIOLOGIST: DENISHA MCKEON 12/19/2024 1:16 PM EDT Narrative 12/19/2024 1:16 PM EDT NAME: MATTHEW DOOLEYS : 1955 AGE: 69 years GENDER: Male ORD PHYS: BRIDGER HERNANDEZ LOCATION: [facility] 12/19/2024 12:44 PM EDT IMG36 (XR CHEST 2 VIEWS) [id number] REASON FOR STUDY: cardiac transplantation TECHNIQUE: PA and lateral views of the chest Comparison: 10/03/2024 FINDINGS: The heart and sternal wires are unchanged. There is no pneumothorax or congestion or focal consolidation or pleural effusion. No new mediastinal widening. No acute bony changes. Lovely overlie the upper lateral right hemithorax as previously. Procedure Note Denisha Mckeon MD - 12/19/2024 NAME: MATTHEW AVILA : 1955 AGE: 69 years GENDER: Male ORD PHYS: BRIDGER HERNANDEZ LOCATION: [facility] 12/19/2024 12:44 PM EDT IMG36 (XR CHEST 2 VIEWS) [id number] REASON FOR STUDY: cardiac transplantation TECHNIQUE: PA and lateral views of the chest Comparison: 10/03/2024 FINDINGS: The heart and sternal wires are unchanged. There is nopneumothorax or congestion or focal consolidation or pleural effusion. Nonew mediastinal widening. No acute bony changes. Moneta overlie the upperlateral right hemithorax as previously. IMPRESSION: No acute cardiopulmonary abnormality. APPROVED BY STAFF RADIOLOGIST: DENISHA MCKEON 12/19/2024 1:16 PM EDT Bridger Hernandez MD IMG XR PROCEDURES Final Result * (ABNORMAL) Cystatin C with eGFR (12/19/2024 12:15 PM EDT) Only the most recent of3 resultswithin the time period is included. Pathologist [facility] Cystatin C 1.20(H) 0.72 - 1.16 mg/L [facility] 1 eGFRcys 59(L) >59 mL/min/1.73 [facility] 1 Blood Venous blood specimen / Unknown 12/19/2024 12:15 PM EDT 12/19/2024 Narrative [facility] - 12/20/2024 6:45 AM EDT Performed at: [facility] [id number] Coding Consultant: Iram Zambrano MD, Phone: [phone] us Bridger Hernandez MD LAB BLOOD ORDERABLES Final Resu lt [facility] [address] [facility] 1 * PSA Total, Screen (Male patients only) (12/19/2024 12:15 PM EDT) PSA TOTAL 2.7 0.0 - 4.0 ng/mL [facility] 1 Comment: Jorge L ECLIA methodology. According to the [place] [employer], Serum PSA should decrease and remain at undetectable levels after radical prostatectomy. The AUA defines biochemical recurrence as an initial PSA value 0.2 ng/mL or greater followed by a subsequent confirmatory PSA value 0.2 ng/mL or greater. Values obtained with different assay methods or kits cannot be used interchangeably. Results cannot be interpreted as absolute evidence of the presence or absence of malignant disease. Blood Venous blood specimen / Unknown 12/19/2024 12:15 PM EDT 12/19/2024 Narrative [facility] - 12/20/2024 7:45 AM EDT Performed at: 01 - [facility] [id number] Coding Consultant: Iram Zambrano MD, Phone: [phone] Bridger Hernandez MD LAB BLOOD ORDERABLES Final Resu lt [facility] [address] [place] [address], [facility] 1 * Tacrolimus level (12/19/2024 12:15 PM EDT) Only the most recent of3 resultswithin the time period is included. Tacrolimus, LC-MS/MS 6.8 3.0 - 20.0 ng/mL [facility] 1 Comment: Performed by LC-MS/MS. Reference intervals are based on trough collection. Optimal therapeutic ranges depend on time post-transplant, dosing regimen, organ type, and concomitant immunosuppression therapy. Results should be interpreted in conjunction with physical signs/symptoms of rejection/toxicity. This test was developed and its performance characteristics determined by [facility]. It has not been cleared or approved by the FDA. The laboratory is regulated under CLIA as qualified to perform high-complexity testing. This test is used for clinical purposes. It should not be regarded as investigational or for research. Time of last dose See Comment Date of last dose See Comment Blood Venous blood specimen / Unknown 12/19/2024 12:15 PM EDT 12/19/2024 Narrative [facility] - 12/19/2024 4:15 PM EDT Test(s) [id number] ([id number]), Blood was developed and its performance characteristics determined by [facility]. It has not been cleared or approved by the Food and Drug Administration. Performed at: [address] [place] [address] [id number] Coding Consultant: Jim Henning [facility], Phone: [phone] Bridger Hernandez MD LAB BLOOD ORDERABLES Final Resu lt Performing Organization Address [facility]/ZIP Co de Phone Number [facility] [address] [place] [address], [facility] 1 * (ABNORMAL) CMV Quant DNA, RT-PCR, BLOOD (12/19/2024 12:15 PM EDT) Only the most recent of5 resultswithin the time period is included. [facility] CMV Qn DNA PCR 1,115(H) Not Detected IU/mL [facility] 1 Comment: Client Requested Flag DETECTED CMV DNA Viral Load, Interp Detected A REFERENCE RANGE: Not Detected log10 CMV Qn DNA 3.05(H) Not Detected log IU/mL [facility] 1 Comment: This test was performed using the [employer] Alinity m CMV DNA assay, performed on the [employer] ALinity m instrument Blood Venous blood specimen / Unknown 12/19/2024 12:15 PM EDT 12/19/2024 Narrative [facility] - 12/19/2024 6:15 PM EDT Performed at: [address] [place] [id number] Coding Consultant: iJm Henning [facility], Phone: [phone] Bridger Hernandez MD LAB BLOOD ORDERABLES Final Resu lt Performing Organization Address City/[facility] Co de Phone Number [facility] [address] [place] [address], [facility] 1 * (ABNORMAL) CBC and differential (12/19/2024 12:15 PM EDT) Only the most recent of3 resultswithin the time period is included. [facility] WBC 3.2(L) 4.0 - 11.0 K/uL [facility] 1 RBC 3.86(L) 4.20 - 5.90 M/uL [facility] 1 Hgb 11.5(L) 13.0 - 17.5 g/dL [facility] 1 Hct 33.8(L) 37.0 - 53.0 % [facility] 1 MCV 87.6 80.0 - 100.0 fL [facility] 1 MCH 29.8 26.0 - 34.0 pg [facility] 1 MCHC 34.0 31.0 - 37.0 g/dL [facility] 1 RDW 12.6 11.5 - 14.5 % [facility] 1 Comment:RDW-SD 40.4 fL 35.0- 51.0 Platelets 117(L) 150 - 400 K/uL [facility] 1 Comment:MPV 10.3 fL 9.1-12.4 Neutrophils 70.3 % [facility] 1 Lymphs 12.3 % [facility] 1 Monocytes 12.7 % [facility] 1 Eos 1.9 % [facility] 1 Basos 0.3 % [facility] 1 Neutrophils Abs 2.28 1.50 - 7.95 K/uL [facility] 1 Lymphs Abs 0.40(L) 0.70 - 4.00 K/uL [facility] 1 MonocytesAbs 0.41 0.38 - 0.83 K/uL [facility] 1 Eos Abs 0.06 0.00 - 0.50 K/uL [facility] 1 Baso Abs 0.01 0.00 - 0.22 K/uL [facility] 1 Immature Granulocytes 2.5 % [facility] 1 Immature Grans Abs 0.08 0.00 - 0.10 K/uL [facility] 1 NRBC 0.0 0.0 - 0.0 % [facility] 1 Comment:NRBC Absolute 0.00 K /uL 0.00-2.00 Blood Venous blood specimen / Unknown 12/19/2024 12:15 PM EDT 12/19/2024 Narrative [facility] - 12/19/2024 3:15 PM EDT Performed at: 01 - [address] [id number] Coding Consultant: Jim Henning [facility], Phone: [phone] us Bridger Hernandez MD LAB BLOOD ORDERABLES Final Resu lt [facility] [address] [place] [address], [place] [facility] 1 * Uric Acid (12/19/2024 12:15 PM EDT) Only the most recent of3 resultswithin the time period is included. Uric Acid 5.2 2.6 - 8.0 mg/dL [facility] 1 Comment: Although the reference interval for men extends up to 8.0 mg/dL, patients with gout may benefit from uric acid levels <6.0 mg/dL. Blood Venous blood specimen / Unknown 12/19/2024 12:15 PM EDT 12/19/2024 Narrative [facility] - 12/19/2024 3:15 PM EDT Performed at: [address] [place] [id number] Coding Consultant: Jim Henning [facility], Phone: [phone] us Bridger Hernandez MD LAB BLOOD ORDERABLES Final Resu lt Performing Organization Address [facility] Co de Phone Number [facility] [address] [place] [address], [place] [facility] 1 * Phosphorus (12/19/2024 12:15 PM EDT) Only the most recent of3 resultswithin the time period is included. Phosphorus 3.9 2.4 - 4.9 mg/dL [facility] 1 Blood Venous blood specimen / Unknown 12/19/2024 12:15 PM EDT 12/19/2024 Narrative [facility] - 12/19/2024 3:15 PM EDT Performed at: [address] [place] [id number] Coding Consultant: Jim Henning [facility], Phone: [phone] us Bridger Hernandez MD LAB BLOOD ORDERABLES Final Resu lt Performing Organization Address City/[facility]/ZIP Co de Phone Number [facility] [address] [place] [address], [facility] * Magnesium (12/19/2024 12:15 PM EDT) Only the most recent of3 resultswithin the time period is included. Magnesium 1.7 1.6 - 2.6 mg/dL [facility] 1 Blood Venous blood specimen / Unknown 12/19/2024 12:15 PM EDT 12/19/2024 Narrative [facility] - 12/19/2024 3:15 PM EDT Performed at: [address] [place] [address] Coding Consultant: Jim Henning [facility], Phone: [phone] us Bridger Hernandez MD LAB BLOOD ORDERABLES Final Resu lt Performing Organization Address [facility] Co de Phone Number [facility] [address] [place] [address], [facility] 1 * (ABNORMAL) Lactate dehydrogenase (12/19/2024 12:15 PM EDT) Only the most recent of3 resultswithin the time period is included. LDH 369(H) 110 - 250 U/L [facility] 1 Blood Venous blood specimen / Unknown 12/19/2024 12:15 PM EDT 12/19/2024 Narrative [facility] - 12/19/2024 3:15 PM EDT Performed at: [address] [place] [id number] Coding Consultant: Jim Henning [facility], Phone: [phone] us Bridger Hernandez MD LAB BLOOD ORDERABLES Final Resu lt Performing Organization Address City/[facility]/ZIP Co de Phone Number [facility] [address] [place] [address], [facility] 1 * (ABNORMAL) Hemoglobin A1c (12/19/2024 12:15 PM EDT) HgbA1C 6.5(H) 4.8 - 5.6 % [facility] 1 Comment: Prediabetes: 5.7 - 6.4 Diabetes: >6.4 Glycemic control for adults with diabetes: <7.0 Blood Venous blood specimen / Unknown 12/19/2024 12:15 PM EDT 12/19/2024 Narrative [facility] - 12/20/2024 4:05 AM EDT Performed at: [address] [place] [id number] Coding Consultant: Iram Zambrano MD, Phone: [phone] Bridger Hernandez MD LAB BLOOD ORDERABLES Final Resu lt Performing Organization Address [facility] Co de Phone Number [facility] [address] [place] [address], [facility] 1 * CK (aka CPK) (12/19/2024 12:15 PM EDT) Only the most recent of3 resultswithin the time period is included. CK Total 41 41 - 331 U/L [facility] 1 Blood Venous blood specimen / Unknown 12/19/2024 12:15 PM EDT 12/19/2024 Narrative [facility] - 12/20/2024 7:45 AM EDT Performed at: [address] [id number] Coding Consultant: Iram Zambrano MD, Phone: [phone] us Bridger Hernandez MD LAB BLOOD ORDERABLES Final Resu lt Performing Organization Address [facility] Co de Phone Number [facility] [address] [place] [address], [facility] 1 * Hepatic function panel (12/19/2024 12:15 PM EDT) Only the most recent of3 resultswithin the time period is included. Bilirubin, Direct 0.2 0.0 - 0.5 mg/dL [facility] 1 Blood Venous blood specimen / Unknown 12/19/2024 12:15 PM EDT 12/19/2024 Narrative [facility] - 12/19/2024 3:15 PM EDT Performed at: [address] [place] [address] [id number], [place], [place] [id number] Coding Consultant: Jim Henning [facility], Phone: [phone] us Bridger Hernandez MD LAB BLOOD ORDERABLES Final Resu lt Performing Organization Address City/[facility]/ZIP Co de Phone Number [facility] [address] [place] [address], [facility] 1 * (ABNORMAL) Lipid panel (12/19/2024 12:15 PM EDT) Only the most recent of3 resultswithin the time period is included. Cholesterol 146 100 - 199 mg/dL [facility] 1 Triglycerides 141 0 - 149 mg/dL [facility] 1 HDL Cholesterol 35(L) >39 mg/dL [facility] 1 VLDLc Calc 25 5 - 40 mg/dL [facility] 1 LDLc Calc (NIH) 86 0 - 99 mg/dL [facility] 1 Non-HDL Chol 111 0 - 129 mg/dL [facility] 1 Blood Venous blood specimen / Unknown 12/19/2024 12:15 PM EDT 12/19/2024 Narrative [facility] - 12/20/2024 6:45 AM EDT Performed at: 01 - [address] [id number] Coding Consultant: Iram Zambrano MD, Phone: [phone] Bridger Hernandez MD LAB BLOOD ORDERABLES Final Resu lt Performing Organization Address City/[facility]/ZIP Co de Phone Number [facility] [address] [place] [address], [facility] 1 * (ABNORMAL) Comprehensive metabolic panel (12/19/2024 12:15 PM EDT) Only the most recent of3 resultswithin the time period is included. Glucose 122 70 - 139 mg/dL [facility] 1 Comment:Fasting? Unknown BUN 17 6 - 24 mg/dL [facility] 1 Creat 1.30 0.55 - 1.30 mg/dL [facility] 1 eGFR 59(L) >=60 mL/min/1.7 3m*2 [facility] 1 Comment:Calculated using CKD -EPI 2020 creatinine equation. Sodium 140 135 - 146 mmol/L [facility] 1 Potassium 4.2 3.6 - 5.2 mmol/L [facility] 1 Chloride 104 98 - 110 mmol/L [facility] 1 Anion Gap 9 3 - 14 mmol/L [facility] 1 Carbon Dioxide 27 20 - 32 mmol/L [facility] 1 Calcium 10.1 8.5 - 10.5 mg/dL [facility] 1 Protein Total 7.1 6.0 - 8.4 g/dL [facility] 1 Albumin 4.7 3.2 - 5.0 g/dL [facility] 1 Bili Total 0.5 0.2 - 1.2 mg/dL [facility] 1 Alk Phosphatase 57 30 - 130 U/L [facility] 1 AST 30 6 - 42 U/L [facility] 1 ALT 22 0 - 55 U/L [facility] 1 Blood Venous blood specimen / Unknown 12/19/2024 12:15 PM EDT 12/19/2024 Narrative [facility] - 12/19/2024 3:15 PM EDT Performed at: [address] [place] [id number] Coding Consultant: Jim Henning [facility], Phone: [phone] us Bridger Hernandez MD LAB BLOOD ORDERABLES Final Resu lt Performing Organization Address City/State/[facility] Co de Phone Number [facility] [address] [place] [address], [facility] 1 * ECG 12 lead [[facility]: Epiphany] Normal (12/19/2024 10:45 AM EDT) 12/19/2024 10:4 5 AM EDT Narrative [facility] STRESS/ECG EPIPHANY CARDIOSERVER - 12/19/2024 5:05 PM EDT [facility] Test Date: 2024-12-19 Pat Name: MATTHEW AVILA Department: [facility] Room: Gender: Male 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1955 Requested By: BRIDGER HERNANDEZ Order Number: [id number] Taran MD: Lacho Bauer Measurements Intervals Twisp Rate: 91 P: 59 IA: 145 QRS: 40 QRSD: 77 T: 24 QT: 339 QTc: 417 Interpretive Statements Sinus rhythm Probable anteroseptal infarct, old Compared to ECG 12/31/2023 07:37:42 Sinus rhythm now more clearly present Electronically Signed On 12-19-2024 17:05:32 EDT by Lacho Bauer us Bridger Hernandez MD ECG ORDERABLES Final Result [facility] STRESS/ECG EPIPHANY CARDIOSERVER * DOBUTAMINE STRESS ECHO (48534) (12/19/2024 9:38 AM EDT) 12/19/2024 8:40 AM EDT Narrative [facility] PACS/REPORTING KRZYSZTOF ISCV - 12/19/2024 11:15 AM EDT [facility] [address] [place] [address] Stress Echocardiogram Name: MATTHEW TORO Study Date: 12/19/2024 08:40 AM : 1955 Gender: Male Age: 69 yrs Ethnicity: OTHER Patient Location: [facility] Referring Physician: JOSE ANGEL NUNEZ Performed By: Osiel Michelle Ordering Physician: JOSE ANGEL NUNEZ Reason For Study: cardiac transplantation Height: 68 in Weight: 135 lb BSA: 1.7 m2 BP: 120/58 mmHg CPT/Quality/Location Stress Echo (80724). Stress Echo interp & report (80402). Supply - dobutamine. Location performed: Department. The quality of the study is average. Stress Results Protocol: Dobutamine Stress Echo Maximum Predicted HR: 151 bpm Target HR: 128 bpm % Maximum Predicted HR: 87 % DurationHeart Rate Stage (mm:ss) (bpm) BP Dose Comment Baseline 93 120/58 Stage 1 3:00 94 119/735.00 Stage 2 3:00 95 122/7610.00 Stage 3 3:00 98 133/8220.00 Stage 4 3:00 97 135/8630.00 Stage 5 3:00 98 137/8740.00 Stage 6 3:00 99 143/8940.00 Stage 7 3:00 97 134/8440.00First dose atropine 0.5mg was injected at the beginning of this stage Stage 8 2:27 131 183/9840.00Second dose atropine 0.5mg was injected at the beginning of this stage RecoveryR 6:53 104 121/70 Stress Duration: 23:27 mm:ss Recovery Time: 6:53 mm:ss Maximum Stress HR: 131 bpm Stress Findings The baseline ECG displays normal sinus rhythm. There was no new ST segment depression. Dobutamine up to 40 mcg/kg/min was administered. Atropine up to 1 mg was administered. The patient did not exhibit any symptoms during drug infusion. Left Ventricle - Resting The left ventricle is normal in size. Left ventricular systolic function is normal. Ejection Fraction = 60%. The left ventricular wall motion is normal. Left Ventricle - Low Dose The left ventricle is normal in size. Left ventricular systolic function is normal. Ejection Fraction = 65%. The left ventricular wall motion is normal. Left Ventricle - Stress The left ventricle is normal in size. The left ventricle is hyperdynamic. Ejection Fraction = 70%. No regional wall motion abnormalities noted. Interpretation Summary I have personally reviewed the study and confirm the fellow's findings. Stress echo is negative for evidence of ischemia. Electronically signed by:Cale Russ M.D. 12/19/2024 11:15 AM Procedure Note Cale Russ MD - 12/19/2024 [facility] [address] [place] [address] StressEchocardiogram Name: MARGARITA AVILAMATTHEWIS Study Date: 508:40 AM : 1955 Gender: Male Age: 69 yrs Ethnicity: OTHER Patient Location: [facility] Referring Physician: JOSE ANGEL NUNEZ Performed By: Osiel Michelle Ordering Physician: JOSE ANGEL NUNEZ Reason For Study: cardiac transplantation Height: 68 in Weight: 135 lb BSA: 1.7 m2 BP:120/58 mmHg CPT/Quality/Location Stress Echo (85219). Stress Echo interp & report (79252). Supply -dobutamine. Location performed: Department. The quality of the study is average. Stress Results Protocol: Dobutamine Stress EchoMaximum Predicted HR: 151 bpm Target HR: 128 bpm %Maximum Predicted HR: 87 % DurationHeart Rate Stage (mm:ss) (bpm) BP DoseComment Baseline 93 120/58 Stage 1 3:00 94 119/735.00 Stage 2 3:00 95 122/7610.00 Stage 3 3:00 98 133/8220.00 Stage 4 3:00 97 135/8630.00 Stage 5 3:00 98 137/8740.00 Stage 6 3:00 99 143/8940.00 Stage 7 3:00 97 134/8440.00First dose atropine 0.5mgwas injected at the beginning of this stage Stage 8 2:27 131 183/9840.00Second dose atropine0.5mg was injected at the beginning of this stage RecoveryR 6:53 104 121/70 Stress Duration: 23:27 mm:ssRecovery Time: 6:53 mm:ss Maximum Stress HR: 131 bpm Stress Findings The baseline ECG displays normal sinus rhythm. There was no new ST segmentdepression. Dobutamine up to 40 mcg/kg/min was administered. Atropine up to 1 mg was administered. The patient did notexhibit any symptoms during drug infusion. Left Ventricle - Resting The left ventricle is normal in size. Left ventricular systolic functionis normal. Ejection Fraction = 60%. The left ventricular wall motion is normal. Left Ventricle - Low Dose The left ventricle is normal in size. Left ventricular systolic functionis normal. Ejection Fraction = 65%. The left ventricular wall motion is normal. Left Ventricle - Stress The left ventricle is normal in size. The left ventricle is hyperdynamic.Ejection Fraction = 70%. No regional wall motion abnormalities noted. Interpretation Summary I have personally reviewed the study and confirm the fellow's findings.Stress echo is negative for evidence of ischemia. Electronically signed by:Cale Russ M.D. 12/19/2024 11:15 AM us Jose Angel Nunez NP CV ECHO PROCEDURES Final Result [facility] PACS/REPORTING KR[facility]YSZTOF ISCV * ALLOMAP HEART (11/07/2024 2:20 PM EDT) Only the most recent of2 resultswithin the time period is included. ALLOMAP SCORE - HEART 32 11/09/2024 1:01 AM EDT [facility] ([facility] 95% CONFIDENCE INTERVAL 95% CI:30.1-3 4.8 11/09/2024 1:01 AM EDT [facility] ([facility]) NEGATIVE PREDICTIVE VALUE 99.0% 11/09/2024 1:01 AM EDT [facility] ([facility]) POSITIVE PREDICTIVE VALUE 2.9% 11/09/2024 1:01 AM EDT [facility] ([facility]) TIME POST TX 0y 10m 12d 11/09/2024 1:01 AM EDT [facility] ([facility] TEST COMMENTS (AMH) <None Specified > 11/09/2024 1:01 AM EDT [facility] ([facility]) NOTES (AMH) See Note 11/09/2024 1:01 AM EDT [facility] ([facility]) Comment: Interpretation of AlloMap score should be made using the information available at the following link: http://www.allomap.com AlloMap testing performed at [facility]. (CLIA No: [id number], CAP No: [id number]) Coding Consultant: Axel Cartagena M.D. These AlloMap test results are displayed here for your convenience. The pdf AlloMap report is the official report. The following data chamorro on the Results Details page are intentionally left empty as they are not applicable to AlloMap testing: Abnormal Units TX DATE 4 11/09/2024 1:01 AM EDT [facility] ([facility] ORDER ID [id number] 11/09/2024 1:01 AM EDT [facility] CENTER ORDER ID [id number] 11/09/2024 1:01 AM EDT [facility] ([facility]) WP ORDER ID <None Specified > 11/09/2024 1:01 AM EDT [facility] ([facility]) Blood Venous blood specimen / Unknown Venipuncture / Unknown 11/07/2024 2:20 PM EDT 11/07/2024 2:48 PM EDT us Jose Angel Nunez [employer]GER LAB BLOOD ORDERABLES Final Resu lt [facility] ([facility]) [address] [place] [address] * ALLOSURE HEART (11/07/2024 2:20 PM EDT) Only the most recent of2 resultswithin the time period is included. ALLOSURE SCORE < 0.04 % 11/09/2024 7:45 PM EDT [facility] ([facility]) TIME POST TX 0y 10m 12d 11/09/2024 7:45 PM EDT [facility] ([facility] TEST COMMENTS (ASHK) <None Specified> 11/09/2024 7:45 PM EDT [facility] ([facility] NOTES (ASHK) See Note 11/09/2024 7:45 PM EDT [facility] ([facility]) Comment: INTERPRETATION OF RESULTS Instructions for Interpreting [...] (2)(3) See the [facility] interpretation guide at [email or web address] for information on HeartCare, AlloSure Heart [...] more information about AlloSure Heart, please visit [email or web address]. (1)Nik et al., J Heart Lung Transplant 2023; (2)Nik et al., Am J Transplant 2019; (3)Data on file for patients <15 years old. The AlloSure Heart Donor-Derived Cell-Free DNA Test was developed and its performance characteristics were determined by the [facility] laboratory. The test has not been cleared or approved by the U.S. Food and Drug Administration. The laboratory is certified under the Clinical Laboratory Improvement Amendments of 1988 (CLIA '88) and accredited by the [employer] [employer] (CAP) as qualified to perform high complexity clinical laboratory testing. The contents of this report are confidential and intended solely for use by authorized personnel. AlloSure testing performed at [facility]. [address] [place] [id number] (CLIA No: [id number], CAP No: [id number]) Coding Consultant: Axel Cartagena M.D. [facility] Heart 2024 7:45 PM EDT [facility] ([facility]) CLIENT SPECIMEN ID <None Specified> 11/09/2024 7:45 PM EDT [facility]) [place] DATE 12/28/2023 11/09/2024 7:45 PM EDT [facility] ([facility]) DONOR RELATION Unrelated 11/09/2024 7:45 PM EDT [facility] ORDER ID [id number] 11/09/2024 7:45 PM EDT [facility] ORDER ID [id number] 11/09/2024 7:45 PM EDT [facility] WP ORDER ID <None Specified> 11/09/2024 7:45 PM EDT [facility] Blood Venous blood specimen / Unknown Venipuncture / Unknown 11/07/2024 2:20 PM EDT 11/07/2024 2:49 PM EDT Jose Angel Nunez BOWLING ALLEY MANAGER LAB BLOOD ORDERABLES Final Resu lt [facility] [address] [place] [address] * IgG (11/07/2024 2:16 PM EDT) Only the most recent of2 resultswithin the time period is included. [facility] IgG 760 603 - 1,613 mg/dL [facility] 1 Blood Venous blood specimen / Unknown 11/07/2024 2:16 PM EDT 11/07/2024 Narrative [facility] - 11/08/2024 6:15 AM EDT Performed at: [facility] [id number] Coding Consultant: Iram Zambrano MD, Phone: [phone] Lena Cortes BOWLING ALLEY MANAGER LAB BLOOD ORDERABLES Fin al Result [facility] [address] [place], [place] [address] 1 * TTE COMPLETE 2D W/ SPECTRAL AND COLOR DOPPLER ([id number]) (10/03/2024 11:42 AM EDT) Anatomical Region Laterality Modality Other 10/03/2024 11:1 6 AM EDT Narrative 10/03/2024 4:50 PM EDT [facility] [address] [place] [address] Transthoracic Echocardiogram Name: MATTHEW TORO Study Date: 10/03/2024 11:16 AM : 1955 Gender: Male Age: 69 yrs Ethnicity: OTHER Patient Location: [facility] Referring Physician: BRIDGER HERNANDEZ Performed By: Jewell Treviño Ordering Physician: BRIDGER HERNANDEZ Reason For Study: cardiac transplantation Height: 68 in Weight: 137 lb BSA: 1.7 m2 BP: 117/73 mmHg CPT/Quality/Location Complete 2D TTE with spectral and color Doppler ([id number]). Location performed: Department. MMode/2D Measurements & Calculations [...] Peña MD - 10/03/2024 [facility] [address] [place] [address] TransthoracicEchocardiogram Name: MATTHEW TORO Study Date: 1:16 AM : 1955 Gender: Male Age: 69 yrs Ethnicity: OTHER Patient Location: [facility] Referring Physician: BRIDGER HERNANDEZ Performed By: Jewell Treviño Ordering Physician: BRIDGER HERNANDEZ Reason For Study: cardiac transplantation Height: 68 in Weight: 137 lb BSA: 1.7 m2 BP:117/73 mmHg CPT/Quality/Location Complete 2D TTE with spectral and color Doppler (83747). Locationperformed: Department. MMode/2D Measurements & Calculations IVSd: [...] report for findings.Compared to prior study from 12/27/24, there is no significant change. Electronically signed by:Steven Peña MD 10/03/2024 04:50 PM Bridger Hernandez MD CV ECHO PROCEDURES Final Result * Hepatitis C Virus RNA, Quantitative, RT-PCR (01/26/2024 10:30 AM EDT) Pathologist [facility] HCV RNA by RT-PCR [facility] 01/27/2024 2:18 PM EDT [facility] Comment:Not Detected HCV RNA Viral Load, log [facility] 01/27/2024 2:18 PM EDT [facility] Comment:Not Detected HCV RNA Viral Load, Interp Not Detected Not Detected [facility] 01/27/2024 2:18 PM EDT [facility] Blood Venous blood specimen / Unknown Venipuncture / Unknown 01/26/2024 10:30 AM EDT 01/26/2024 11:13 AM EDT Narrative [facility] - 01/27/2024 2:18 PM EDT This test was performed using the Promonnity m HCV assay, performed on the PromonniImimtek m instrument. The lower limit of quantification is 12 IU/mL. Chi Barton MD LAB BLOOD ORDERABLES Final Resu lt [facility] [address] [place] [address], [place] * Albumin, Urine, Random (Microalbumin Random, Including Creatinine) (11/26/2023 1:50 PM EDT) Albumin, urine (INT/EXT) <1.2 mg/dL 11/26/2023 2:44 PM EDT [facility] Creatinine, urine, random (INT/EXT) 47.40 24.00 - 392.00 mg/dL 11/26/2023 2:44 PM EDT [facility] Albumin/Creatini ne ratio 11/26/2023 2:44 PM EDT [facility] Comment:Unable to calculate due to below or above Analytical Measurement Range. Urine Urine specimen / Unknown Non-blood Collection / Unknown 11/26/2023 1:50 PM EDT 11/26/2023 1:50 PM EDT us Pedro Kline MD LAB URINE ORDERABLES Maral l Result [facility] [address] [place] [address], [place] from Last 3 Months or Most Recently Relevant to Health Maintenance Insurance MEDICARE PART A AND B HEALTH SAFETY NET MEDICARE PART A AND B [facility] HEALTH SAFETY NET Advance Directives Documents on File Type Date Recorded Patient Care Program Resident Expl anation Advance Directives and Living Will 11/25/2023 Lloyd Ahmadi Health Care Proxy * Full Code (Latest Code Status on File) Date Activated Date Inactivated Comments 11/24/2023 12:16 AM 01/20/2024 1:17 PM Healthcare Agents on File Name Relationship Healthcare Agent Relationship Communication Aleisha Ahmadi Spouse Health Care Agent [email or web address] Lloyd Mandel Son First Alte rnate Health Care Agent Care Teams Eclectic Doctor Relationship Specialty Start Date End Date Name, MD Yoandy [address] [place] [address] [phone] PCP - General Building Construction Ironworker 11/12/23 Glenn Herman MD [address] [place] [address] Referring Physician Cardiology 11/12/23 Edward Handley, Juan [facility] 12/31/23 Jennie Michelle, PharmD [address] [place] [phone] Pharmacist Pharmacy 01/27/24 Bridger Hernandez MD [address] [place] [address] [place] [address] Attending Physician Cardiology 12/19/24
--- OUTSIDE RECORDS SUMMARY | 2024-12-30 15:54 | XMS_ITS | Encounter Summary ---
Author Organization [facility] Address [address] [facility] [address] [place] [address] Care Team Providers Care Refinery Operator Visbreaking Name Role Phone Glenn Herman MD Unavailable [phone] Yoandy Tillman MD Primary Care Provider [phone] Edward Handley medical assistant per diem Unavailable Unavailable Jennei Michelle PharmD Unavailable [phone] Juan Hutchinson MD Unavailable [phone] Encounter Details Date Type Department Care Team (Latest Contact Info) Description 12/28/2024 Travel Social History Tobacco Use Types Packs/Day [...] 11:17 AM TYT Bethany Washington RN * Because of a [...] Description 01/03/2025 10:30 AM EDT Hospital Encounter [facility] Cardiac Videotape Recording Engineer [address] [place] [address] Zeina Maradiaga MD [address] [address] Other cytomegaloviral diseases (Multi-HCC); Heart transplant recipient (Multi-HCC) 01/03/2025 10:30 AM EDT - 01/03/2025 12:00 PM EDT Surgery [facility] Cardiac Videotape Recording Engineer [address] [place] [address] Zeina Maradiaga MD [address] [address] Coronary angiography/RHC/bx; F slot @ 10:30am; page nubmers to JOSSY Mitchell [[id number] (CPT )] 01/16/2025 1:45 PM EDT Office Visit [facility] Dermatology [address] [place] [address] Nelida Ayala MD [address] [place] [address] 02/22/2025 2:00 PM EST Office Visit [facility] Neurology [address] [place] [phone] Percy Kapoor MD [address] [address] 03/20/2025 12:00 PM EST Office Visit [facility] Cardiac Subspecialty [address] [facility] [address] [place] [phone] Charlie Barry MD 800 [place] [address] 07/12/2025 10:30 AM EDT Appointment [facility] Pulmonary Function Lab [address] [facility] [address] 5th Floor Room [address] [place] [phone] 07/12/2025 11:30 AM EDT Office Visit [facility] Pulmonary 260 [facility] [address] 3rd [place] [phone] Daysi Fink MD [address] [place] [address] Intensive Care Unit/[facility] [address] documented as of this encounter Visit Diagnoses Not on filedocumented in this encounter Care Teams Refinery Operator Visbreaking Relationship Specialty Start Date End Date Name, MD Yoandy [address] [place] [address] PCP - General Chief Radiologic Technologist 11/12/23 Glenn Herman MD [address] [place] [address] Referring Physician Cardiology 11/12/23 Edward Handley CPhT Geothermal Powerplant Mechanic Pharmacy 12/31/23 Jennie Michelle, RadhaD [address] [place] [address] Pharmacist Pharmacy 01/27/24 Juan Hutchinson MD [address] [facility] [address] [place] [address] Attending Physician Cardiology 12/19/24 documented as of this encounter
--- OUTSIDE RECORDS SUMMARY | 2024-12-30 15:55 | XMS_ITS ---
Author Organization [facility] Address 800 [facility], [address] [place] [address] Care Team Providers Care Pattern Grader Cutter Name Role Phone Glenn Herman MD Unavailable [phone] NameYoandy MD Primary Care Provider [phone] Edward Handley CPhT Unavailable Unavailable Jennie Michelle PharmD Unavailable [phone] Juan Hutchinson MD Unavailable [phone] RxSp Transplant Status:Enrolled (Active) Start date:12/31/2023 Enrollment date:12/31/2023 Enrollment reason:Identified by Other Non-PCP Provider Current support & services provided:Clinical Management, Refill Management, Benefits and PA Management, Adherence Management, Mail Order Management Linked medications:calcium carbonate (Active), cholecalciferol (vitamin D3) (Active), levetiracetam (Active), mycophenolate mofetil (Active), pantoprazole sodium (Active), pravastatin sodium (Active), prednisone (Active), sulfamethoxazole/trimethoprim (Active), tacrolimus (Active) Overview HEART TX 12/28/2023 Case Team Name Relationship Phone Edward Handley CPhT(Responsible Staff) Cad Specialist Jennie Michelle PharmD Pharmacist [phone] Continued Care and Services Coordination
--- OUTSIDE RECORDS SUMMARY | 2024-12-30 15:55 | XMS_ITS | Encounter Summary ---
Author Organization [facility] Address 800 [facility] [address] [place] [address] Care Team Providers Care Commercial Lines Assistant Name Role Phone Glenn Herman MD Unavailable [phone] NameYoandy MD Primary Care Provider Edward Handley lcsw Unavailable Unavailable Jennie Michelle PharmD Unavailable Juan Hutchinson MD Unavailable [phone] Encounter Details Date Type Department Care Team (Late st Contact Info) Description 11/08/2024 Results Follow-Up [facility] Infectious Disease 260 [facility] 3rd [place] [address] Lena Cortes, NOZZLE AND SLEEVE WORKER [address] [place] [phone] Social History Tobacco Use Types Packs/Day Years [...] Description 01/03/2025 10:30 AM EDT Hospital Encounter [facility] Cardiac Mechanic/Welder [address] [place] [address] Zeina Maradiaga MD [address] [address] Other cytomegaloviral diseases (Multi-HCC); Heart transplant recipient (Multi-HCC) 01/03/2025 10:30 AM EDT - 01/03/2025 12:00 PM EDT Surgery [facility] Cardiac Mechanic/Welder [address] [place] [address] Zeina Maradiaga MD 800 [facility] [address] [place] [address] Coronary angiography/RHC/bx; AHF slot @ 10:30am; page andrésers to JOSSY Mitchell [[id number] (CPT )] 01/16/2025 1:45 PM EDT Office Visit [facility] Dermatology [address] [place] [address] Nelida Ayala MD 800 [place] [address] 02/22/2025 2:00 PM EST Office Visit [facility] Neurology [address] [place] [phone] Percy Kapoor MD [address] [address] 03/20/2025 12:00 PM EST Office Visit [facility] Cardiac Subspecialty [address] [facility] [address]th [place] [phone] Charlie Barry MD 800 [place] [address] 07/12/2025 10:30 AM EDT Appointment [facility] Pulmonary Function Lab [address] [facility] Room [address] [place] [phone] 07/12/2025 11:30 AM EDT Office Visit [facility] Pulmonary 260 [facility] [address] [place] [phone] Daysi Fink MD [address] [place] [address] Intensive Care Unit/[facility] [address] documented as of this encounter Visit Diagnoses Not on filedocumented in this encounter Care Teams Commercial Lines Assistant Relationship Specialty Start Date End Date Name, MD Yoandy [address] [place] [address] PCP - General Trestle Mechanic 11/12/23 Glenn Herman MD [address] [place] [address] Referring Physician Cardiology 11/12/23 Edward Handley, Juan Cell Phone Repair Technician Pharmacy 12/31/23 Jennie Michelle, PharmD [address] [place] [phone] Pharmacist Pharmacy 01/27/24 Jaun Hutchinson MD [address] [place] [address] [place] [address] Attending Physician Cardiology 12/19/24 documented as of this encounter
--- OUTSIDE RECORDS SUMMARY | 2024-12-30 15:55 | XMS_ITS | Encounter Summary ---
Author Organization [employer] Address [address] [facility] [address] 7t [place] [address] Care Team Providers Care Paint Technician Name Role Phone Name, Yoandy LUGO Primary Care Provider [phone] Name, Yoandy LUGO Primary Care Provider [phone] Encounter Details Date Type Department Care Team (Late st Contact Info) Description 03/21/2022 Orders Only [facility] MEDICINE [address] [place] [address] Coby Flores RN Social History Tobacco Use [...] Description 02/20/2025 10:00 AM EST Office Visit [facility] MEDICINE [address] [place] [address] Name, MD Yoandy [address] [place] [address] documented as of this encounter Procedures Procedure Name Priority Date/Time Associated Diagnosis Comments B TYPE NATRIURETIC PEPTIDE (BNP) Routine 06/27/2022 9:53 AM EDT HEPATIC FUNCTION PANEL Routine 06/27/2022 9:53 AM EDT LIPID PANEL, STANDARD Routine 06/27/2022 9:53 AM EDT BASIC METABOLIC PANEL Routine 06/27/2022 9:53 AM EDT documented in this encounter Results * Lipid Panel, Standard (06/27/2022 9:53 AM EDT) Triglycerides 84 mg/dL [facility] Comment:Desirable Triglyceri de: less than 150 mg/dLBorderline High Triglyceride 150-199 mg/dLHigh Triglyceride: 200-499 mg/dLVery High Triglyceride: greater than or equal to 5OO mg/dL Cholesterol 154 mg/dL [facility] Comment:Desirable Cholestero l: less than 200 mg/dLBorderline High Cholesterol: 200-239 mg/dLHigh Cholesterol: greater than 239 mg/dL LDL Cholesterol Calculated 104 mg/dl [facility] Comment:Desirable LDL: less than 100 mg/dLNear Optimal/Above Optimal LDL: 110- 129 mg/dLBorderline High LDL: 130-159 mg/dLHigh LDL: 160-189 mg/dLVery High LDL: greater than or equal to 190 mg/dL HDL Cholesterol 34 mg/dL [facility] Comment:Desirable HDL: great er than 40 mg/dL Note: This HDL assay may give artificially low results in patients with liver disease. 06/27/2022 9:53 AM EDT 06/27/2022 9:53 AM EDT [facility] External Provider LAB BLO OD ORDERABLES Final Result [facility] [address] [place] [phone] * (ABNORMAL) Basic Metabolic Panel (06/27/2022 9:53 AM EDT) Sodium 143 135 - 145 mmol/L [facility] Potassium 4.6 3.3 - 5.1 mmol/L [facility] Chloride 108 96 - 108 mmol/L [facility] Carbon Dioxide 26 22 - 29 mmol/L [facility] Anion Gap 14 12 - [address] [facility] Urea Nitrogen (BUN) 13 9 - 16 mg/dL [facility] Creatinine, Serum 1.02 0.5 - 1.4 mg/dL [facility] Estimated Glomerular Filt Rate >[address] [facility] Comment:NOTE: For -Am erican individuals, multiply the result by 1.210.Chronic Kidney Disease: Estimated GFR < 60 mL/min/1.31t2Xhbjnt Kidney Disease: Estimated GFR < 15 mL/min/1.73m2 Glucose 141(H) 60 - 115 mg/dL [facility] Calcium 9.4 8.4 - 10.2 mg/dL [facility] 06/27/2022 9:53 AM EDT 06/27/2022 9:53 AM EDT [facility] External Provider LAB BLO OD ORDERABLES Final Result Performing Organization Address [facility] Co de Phone Number [facility] [address] [place] [phone] * Hepatic Function Panel (06/27/2022 9:53 AM EDT) Bilirubin, Total 1.0 0.0 - 1.0 mg/dL [facility] Bilirubin, Direct 0.3 0.0 - 0.5 mg/dL [facility] Aspartate Amino Transferase 19 5 - 37 U/L [facility] Alanine Aminotransferase 24 0 - 40 U/L [facility] Total Protein 6.7 6.5 - 8.0 g/dL [facility] Albumin Level 4.2 3.5 - 5.0 g/dL [facility] Alkaline Phosphatase 61 39 - 117 U/L [facility] 06/27/2022 9:53 AM EDT 06/27/2022 9:53 AM EDT [facility] External Provider LAB BLO OD ORDERABLES Final Result Performing Organization Address [facility] de Phone Number [facility] [address] [place] [phone] * (ABNORMAL) B Type Natriuretic Peptide (BNP) (06/27/2022 9:53 AM EDT) B Type Natriuretic Peptide 332(H) <100 pg/mL [facility] Comment:For those patients w ho are being treated with Natrecor(nesiritide, recombinant BNP), BNP testing should beperformed at least two hours post treatment in order toensure that only endogenous levels of BNP are detected. 06/27/2022 9:53 AM EDT 06/27/2022 9:53 AM EDT us [facility] External Provider LAB BLO OD ORDERABLES Final Result [facility] [address] [place] [phone] documented in this encounter Visit Diagnoses Not on filedocumented in this encounter Care Teams Paint Technician Relationship Specialty Start Date End Date NameYoandy MD [address] [place] [address] PCP - General Family Medicine 01/18/21 06/04/23 Name, MD Yoandy [address] [place] [address] PCP - General Internal Medicine 10/19/23 [facility] 01/19/24 documented as of this encounter
--- OUTSIDE RECORDS SUMMARY | 2024-12-30 15:55 | XMS_ITS ---
Author Organization [facility] Address 800 [facility], [address] [place] [address] Care Team Providers Care Mailhouse Operator Name Role Phone Glenn Herman MD Unavailable [phone] NameYoandy MD Primary Care Provider [phone] Edward Handley dog boarder Unavailable Unavailable Jennie Michelle PharmD Unavailable [phone] Juan Hutchinson MD Unavailable [phone] Transplant Episode Heart Recipient [facility] ([place], [place]) - MAN Organ Received: Heart Transplanted on 12/28/2023 Marked as Active Follow-up on 12/28/2023 Heart CoordinatorZackery Paulino RN Phone: N/A Fax: N/A Email: N/A [place] Organ Diagnosis Organ Primary Contributory Heart Dilated Myopathy: Idiopathic Infection History Noted Survival Infection Treatment Organism Resolved 06/30/2024 185 days Cytomegalovirus infection 05/04/2024 128 days COVID Donor Information Organ [...] Role Phone Fax Email Zackery Paulino RN Concrete Boom Operator N/A N/A N/A Glenn Herman MD Referring Physician [phone] N/A Izaiah Watt MD Drying Room Attendant [phone] N/A Events Post-Transplant Pre-Transplant Admitted: 11/23/2023 Referred: 11/09/2023 Transplanted: 12/28/2023 Evaluation began: 4 Discharged: 01/14/2024 Committee: 12/21/2023 Center waitlisted: 4 Appointments (11/29/2024 - 01/29/2025) When With Visit Type Description 12/19/2024 Radiology X-Ray Exam Other cytomegal oviral diseases (Multi-HCC); Heart transplant recipient (Multi-HCC) 12/19/2024 Cardiology Dobutamine Stress Echo Other cytomegaloviral diseases (Multi-HCC); Heart transplant recipient (Multi-HCC); Heart transplant rejection (Multi-HCC) 12/19/2024 Cardiology - Vianca Hutchinson Follow Up Specialty Appointment Type 2 diabetes mellitus with other specified complication, unspecified whether parts counterman insulin use (Multi-HCC) (Primary Dx); Other cytomegaloviral diseases (Multi-HCC); Heart transplant recipient (Multi-HCC); Mixed hyperlipidemia ; Prostate cancer screening; Sarcoidosis 12/28/[address] Chest without Contrast Cytomegalovirus infection, unspecified cytomegaloviral infection type (Multi-HCC); Tracheal stenosis; Pulmonary sarcoidosis (Multi-HCC) 01/16/2025 [facility] [place] [facility] New Patient
--- OUTSIDE RECORDS SUMMARY | 2024-12-30 15:55 | XMS_ITS | Encounter Summary ---
Author Organization [facility] Address 800 [facility] [address] [place] [address] Care Team Providers Care Ski Production Supervisor Name Role Phone Glenn Herman MD Unavailable [phone] Yoandy Tillman MD Primary Care Provider [phone] Edward Handley death surveys coder Unavailable Unavailable Jennie Michelle PharmD Unavailable [phone] Juan Hutchinson MD Unavailable [phone] Reason for Visit * Reason Comments Med Change Request Encounter Details Date Type Department Care Team (Late st Contact Info) Description 03/17/2024 Refill [facility] Cardiac Subspecialty [address] [facility] 6th [place] [address] Charlie Barry MD 800 [place] [address] 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) Social History [...] place to sleep or slept in a [place] health care facility (including now)? No 11/26/2023 Sex and Gender [...] - 03/17/2024 4:02 PM EST Filled at [facility] documented in this encounter Plan of Treatment Upcoming Encounters Date Type Department Care Team (Late st Contact Info) Description 01/03/2025 10:30 AM EDT Hospital Encounter [facility] Cardiac Efficiency Engineer [address] [place] [address] Zeina Maradiaga MD [address] [address] Other cytomegaloviral diseases (Multi-HCC); Heart transplant recipient (Multi-HCC) 01/03/2025 10:30 AM EDT - 01/03/2025 12:00 PM EDT Surgery [facility] Cardiac Efficiency Engineer 800 [place] [address] Zeina Maradiaga MD [address] [address] Coronary angiography/RHC/bx; AHF slot @ 10:30am; page nubmers to JOSSY Mitchell [[id number] (CPT )] 01/16/2025 1:45 PM EDT Office Visit [facility] Dermatology 260 [place] [address] Nelida Ayala MD 800 [place] [address] 02/22/2025 2:00 PM EST Office Visit [facility] Neurology [address] [place] [phone] Percy Kapoor MD [facility] 800 [place] [address] 03/20/2025 12:00 PM EST Office Visit [facility] Cardiac Subspecialty [address] [facility] 6th [place] [address] Charlie Barry MD [address] [place] [address] 07/12/2025 10:30 AM EDT Appointment [facility] Pulmonary Function Lab [address] [facility] [address] 5th Floor Room [address] [place] [phone] 07/12/2025 11:30 AM EDT Office Visit [facility] Pulmonary [address] [facility] [address] [place] [phone] Daysi Fink MD [address] [place] [address] Intensive Care Unit/[facility] [address] documented as of this encounter Visit Diagnoses Diagnosis Heart replaced by transplant Heart transplant recipient- Primary Other cytomegaloviral diseases Heart transplant recipient Cytomegalovirus infection, 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, unspecified cytomegaloviral infection type documented in this encounter Care Teams Ski Production Supervisor Relationship Specialty Start Date End Date Name, MD Yoandy 230 [place] [address] PCP - General Gun Fitter 11/12/23 Glenn Herman MD 575 [place] [address] Referring Physician Cardiology 11/12/23 Edward Handley, death surveys coder Senior Revenue Accountant Pharmacy 12/31/23 Jennie Michelle, PharmD [address] [place] [address] Pharmacist Pharmacy 01/27/24 Juan Hutchinson MD [address] [place] [address] [place] [address] Attending Physician Cardiology 12/19/24 documented as of this encounter
--- OUTSIDE RECORDS SUMMARY | 2024-12-30 15:55 | XMS_ITS | Encounter Summary ---
Author Organization [facility] Address 800 [facility] 520 [place] [address] Care Team Providers Care Scrap Shear Operator Name Role Phone Glenn Herman MD Unavailable Name, Yoandy LUGO Primary Care Provider [phone] Edward Handley welder setter resistance machine Unavailable Unavailable Jennie Michelle PharmD Unavailable [phone] Juan Hutchinson MD Unavailable [phone] Encounter Details Date Type Department Care Team (Late st Contact Info) Description 12/29/2023 Lab Requisition [facility] HLA Lab 800 [place] [phone] Pedro Kline MD 800 [facility] [address] [place] [address] Cardiomyopathy, unspecified (Multi-HCC) Social History Tobacco Use [...] place to sleep or slept in a long term (including now)? No 11/26/2023 Sex and Gender [...] Description 01/03/2025 10:30 AM EDT Hospital Encounter [facility] Cardiac Electrical Plumbing Supervisor 800 [place] [address] Zeina Maradiaga MD [address] [place] [address] Other cytomegaloviral diseases (Multi-HCC); Heart transplant recipient (Multi-HCC) 01/03/2025 10:30 AM EDT - 01/03/2025 12:00 PM EDT Surgery [facility] Cardiac Electrical Plumbing Supervisor 800 [place] [address] Zeina Maradiaga MD [address] [place] [address] Coronary angiography/RHC/bx; AHF slot @ 10:30am; page numarioers to JOSSY Mitchell [[id number] (CPT )] 01/16/2025 1:45 PM EDT Office Visit [facility] Dermatology 260 [place] [address] Nelida Ayala MD 800 [place] [address] 02/22/2025 2:00 PM EST Office Visit [facility] Neurology 260 [place] [phone] Percy Kapoor MD [facility] 800 [place] [address] 03/20/2025 12:00 PM EST Office Visit [facility] Cardiac Subspecialty [address] [facility] 6th [place] [address] Charlie Barry MD 800 [place] [address] 07/12/2025 10:30 AM EDT Appointment [facility] Pulmonary Function Lab 800 [facility] [address] [facility] 5th Floor Room 511 [place] [phone] 07/12/2025 11:30 AM EDT Office Visit [facility] Pulmonary [address] [facility] [address] 3rd [place] [phone] Daysi Fink MD [address] [place] [address] Intensive Care Unit/[facility]/[place] [address] documented as of this encounter Procedures Procedure Name Priority Date/Time Associated Diagnosis Comments HLA CONSULTATION Routine 12/26/2023 11:5 6 PM EDT Cardiomyopathy, unspecified (Multi-HCC) documented in this encounter Results * HLA Consultation (12/26/2023 11:56 PM EDT) PDF Attached See PDF Document 01/02/2024 12:57 PM EDT [facility] HLA LAB Blood Venous blood specimen / Unknown 12/26/2023 11:56 PM EDT 12/29/2023 10:28 PM EDT us Pedro Kline MD LAB BLOOD ORDERABLES Maral l Result [facility] HLA LAB 800 [place] [address], documented in this encounter Visit Diagnoses Diagnosis Cardiomyopathy, unspecified Heart transplant recipient- Primary Other cytomegaloviral diseases Heart transplant recipient Cytomegalovirus infection, 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, unspecified cytomegaloviral infection type documented in this encounter Care Teams Scrap Shear Operator Relationship Specialty Start Date End Date Name, MD Yoandy [address] [place] [address] PCP - General Housekeeper Supervisor 11/12/23 Glenn Herman MD [address] [place] [address] Referring Physician Cardiology 11/12/23 Edward Handley, Juan Semiautomatic Taper Operator Pharmacy 12/31/23 Jennie Michelle, PharmD 800 [place] [address] Pharmacist Pharmacy 01/27/24 Juan Hutchinson MD 800 [facility] [address] [place] [address] Attending Physician Cardiology 12/19/24 documented as of this encounter
--- OUTSIDE RECORDS SUMMARY | 2024-12-30 15:55 | XMS_ITS | Encounter Summary ---
Author Organization [employer] Address 75 [facility] 7t [place] [address] Care Team Providers Care Border Patrol Officer Name Role Phone Name, Yoandy LUGO Primary Care Provider [phone] Name, Yoandy LUGO Primary Care Provider [phone] Reason for Visit * Reason Onset Date Comments FYI 10/01/2022 Encounter Details Date Type Department Care Team ([facility] st Contact Info) Description 10/01/2022 Telephone [facility] MEDICINE [address] [place], [place] [phone] Name, MD Yoandy 230 [place] [address] FYI Social History Tobacco Use Types Packs/Day [...] 10/01/2022 3:26 PM EDT Tc from spouse [facility] facility that patient during their vacation in [place] had two Heart Attacks and is currently hospitalized since 09/15/2022 at the [facility] documented in this encounter Plan of Treatment Upcoming Encounters Date Type Department Care Team (Late st Contact Info) Description 02/20/2025 10:00 AM EST Office Visit [facility] MEDICINE [address] [place] [address] Name, MD Yoandy [address] [place] [address] documented as of this encounter Visit Diagnoses Not on filedocumented in this encounter Care Teams Border Patrol Officer Relationship Specialty Start Date End Date Name, MD Yoandy [address] [place] [address] PCP - General Family Medicine 01/18/21 06/04/23 Name, MD Yoandy [address] [place] [address] PCP - General Internal Medicine 10/19/23 [facility] 01/19/24 documented as of this encounter
--- OUTSIDE RECORDS SUMMARY | 2024-12-30 15:55 | XMS_ITS | Encounter Summary ---
Author Organization [facility] Address 800 [facility] [address] [place] [address] Care Team Providers Care Beader Tender Name Role Phone Glenn Herman MD Unavailable [phone] Yoandy Tillman MD Primary Care Provider [phone] Edward Handley [facility] Unavailable Unavailable Jennie Michelle PharmD Unavailable [phone] Juan Hutchinson MD Unavailable [phone] Reason for Visit * Reason Onset Date Comments req labs orders 10/25/2024 Encounter Details Date Type Department Care Team (Late st Contact Info) Description 10/25/2024 Telephone [facility] Infectious Disease [address] [facility] 3rd [place] [address] Chi Barton MD [address] [place], [place] [phone] req labs orders Social History Tobacco Use [...] place to sleep or slept in a intermediate (including now)? No 11/26/2023 Sex and Gender [...] order for her please call Dalia # [phone], thank you. documented in this encounter Plan of Treatment Upcoming Encounters Date Type Department Care Team (Late st Contact Info) Description 01/03/2025 10:30 AM EDT Hospital Encounter [facility] Cardiac Road Oiling Truck Driver [address] [place] [address] Zeina Maradiaga MD [address] [place] [address] Other cytomegaloviral diseases (Multi-HCC); Heart transplant recipient (Multi-HCC) 01/03/2025 10:30 AM EDT - 01/03/2025 12:00 PM EDT Surgery [facility] Cardiac Road Oiling Truck Driver [address] [place] [phone] Zeina Maradiaga MD 800 [facility] [address] [place] [address] Coronary angiography/RHC/bx; AHF slot @ 10:30am; page numarioers to JOSSY Mitchell [[id number] (CPT )] 01/16/2025 1:45 PM EDT Office Visit [facility] Dermatology 260 [place] [address] Nelida Ayala MD 800 [place] [address] 02/22/2025 2:00 PM EST Office Visit [facility] Neurology 260 [place] [phone] Percy Kapoor MD [facility] 800 [place] [address] 03/20/2025 12:00 PM EST Office Visit [facility] Cardiac Subspecialty 860 [facility] 6th [place] [address] Charlie Barry MD 800 [place] [address] 07/12/2025 10:30 AM EDT Appointment [facility] Pulmonary Function Lab [address] [facility] [address] 5th Floor Room 511 [place] [phone] 07/12/2025 11:30 AM EDT Office Visit [facility] Pulmonary [address] [facility] [address] 3rd [place] [phone] Daysi Fink MD [address] [place] [address] Intensive Care Unit/[facility]/[place] [address] documented as of this encounter Visit Diagnoses Not on filedocumented in this encounter Care Teams Beader Tender Relationship Specialty Start Date End Date Name, MD Yoandy 230 [place] [address] PCP - General Assistant Dean Of Students 11/12/23 Glenn Herman MD [address] [place] [address] Referring Physician Cardiology 11/12/23 Edward Handley CPhT Agricultural Equipment Mechanic Pharmacy 12/31/23 Jennie Michelle, RadhaD [address] [place] [address] Pharmacist Pharmacy 01/27/24 Juan Hutchinson MD [address] [place] [address] [place] [address] Attending Physician Cardiology 12/19/24 documented as of this encounter
[2024-12-30 16:17] LABS: Glucose, Whole Blood 105 mg/dL (60-115)
== END ==
PROVIDERS: PCP Internal Medicine Geriatric Medicine; Visit Provider Physician Assistant
DX: E11.8 Type 2 diabetes mellitus with unspecified complications (principal); E16.2 Hypoglycemia, unspecified

== ENCOUNTER → 2024-12-30 15:29 | Outpatient (BNVA) | payer MEDICARE, SELFPAY | PROVIDERS: PCP Internal Medicine Geriatric Medicine; Visit Provider Physician Assistant | DX: E11.649 Type 2 diabetes mellitus with hypoglycemia without coma (principal); E11.42 Type 2 diabetes mellitus with diabetic polyneuropathy; Z79.4 Long term (current) use of insulin | CPT/HCPCS: 82947; 83036; 99212 ==

== ENCOUNTER 2025-01-02 11:55 | Outpatient (REF) | payer MEDICARE, SELFPAY ==
--- OUTSIDE RECORDS SUMMARY | 2025-01-02 13:20 | XMS_ITS | Clinical Summary ---
Author Organization [employer] Address 75 [facility] 7t [place] [address] Care Team Providers Care Field Artillery Officer Name Role Phone Name, Yoandy LUGO Primary Care Provider [phone] Allergies Active Allergy Reactions Criticality Noted Date [...] bedtime. 4 Active Sharps Container (BD Sharps Rn Testing) misc For disposal of needles and lancets [...] follow-up 10/06/2024 Pulmonary nodules 07/27/2024 Cytomegalovirus infection (CMS/HCC) 06/30/2024 Chronic cough 06/28/2024 Fever 06/28/2024 Conjunctivitis of right eye 05/04/2024 Immunosuppressed status 05/04/2024 Night sweats 05/04/2024 Preventative health care 05/04/2024 Disease due to severe acute respiratory syndrome coronavirus 2 (SARS-CoV-2) 04/19/2024 Overview (07/27/2024): Problem added by Discern Expert Sensorineural hearing loss (SNHL) of both ears 0 04/15/2024 Observed seizure-like activity ([facility]) 024 Heart transplant recipient ([facility]) 02/05/2024 Overview (02/05/2024): #s/p OHT 12/28/23 #s/p impella explant #s/p ICD explant #hx NICM Seizure disorder ([facility]) 02/05/2024 Immunocompromised 02/05/2024 Sarcoidosis 01/27/2024 Alteration in self-care ability 01/05/2024 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 S/p multiple dilations in the past. Able to pass a 7.0 ETT, but no larger. Decreased functional mobility and endurance 11/06 Non-restorable tooth 11/19/2023 History of DE (myocardial infarction) 10/20/2023 Memory problem 10/20/2023 Shortness [...] unspecifi ed 04/01/2023 Atrial fibrillation with RVR (CMS/HCC) 3 History of cardiac arrest 02/08/2023 Chronic combined systolic and diastolic heart fa ilure 02/08/2023 Overview (11/02/2023): Last Assessment & Plan: reports he's up a few pounds from his baseline weight, worsening leg swelling over the last few days. Compliant with Torsemide - taking full dose per 's report Asked patient to call his Hydrology Teacher regarding his increased weight/swelling for further recommendations. Dysphagia 02/08/2023 Positive colorectal cancer screening using Colog uard test 02/04/2023 Overview (11/03/2023): Negative Colonoscopy 06/2023: urgical Pathology Exam - Order: [id number] Component 4 mo ago Case Report Surgicals Case: [id number] Authorizing Provider: Donny Encarnacion Collected: 2023 0843 MD Eugene Ordering Location: [facility] GI Lab Received: 2023 1011 [...] IHC, [place] [address]. Resulting Agency [facility] Specimen Collected: 06/19/23 08:43 Performed by: [facility] Last Resulted: 06/23/23 17:27 Athscl heart disease of nomi ve coronary artery w/o ang pctrs 02/02/2023 Dysphagia, oropharyngeal phase 02/02/2023 Non-ST elevation (NSTEMI) myocardial infarction 02/02/2023 Pneumonia due to other streptococci 02/02/2023 Type 2 diabetes mellitus with hyperglycemia 01/06 Unspecified atrial flutter (CMS/HCC) 02/02/2023 IVY (acute kidney injury) 01/31/2023 Urinary [...] were answered. Coronary artery disease invo lving igiugig coronary artery of igiugig heart without angina pectoris 11/14/2022 Overview (11/02/2023): Last Assessment & Plan: - nonobstructive disease - continue medical therapy with aspirin, statin, BB - denies angina Stridor 11/13/2022 Overview (11/02/2023): Last Assessment & Plan: Improved after last dilation in April 2023. Mild stridor noted today in clinic Discussed with his primary exploration manager Dr. Sanches and will work to [...] disturbance, psychotic disturbance, mood disturbance, and anxiety (CMS/HCC) 04/06/2022 Ventricular tachycardia, unspecified (CMS/HCC) 0 04/06/2022 Other continuous churn buttermaker (current) drug therapy 3 Type 2 diabetes [...] upgraded from dual-chamber to biventricular device at [facility] 03/2022. Follows at [facility] cardi Systolic dysfunction 03/13/2022 History of bradycardia 03/13/2022 Family history of prostate cancer 03/13/2022 Complete heart block (CMS/HCC) 04/06/2020 Overview (11/02/2023): Added automatically from request for surgery [id number] Last Assessment & Plan: History of biventricular pacemaker that was upgraded to [employer] defibrillator in September. Device interrogated today with [...] call cardiology office as well. Aspiration pneumonia ([facility]) 02/08/2023 02/05/2024 Hyperlactatemia 02/08/2023 11/03/2023 Viral pneumonia 02/08/2023 02/05/2024 [...] statin -No need for ischemic evaluation intermediate accountant (current) use of o ral hypoglycemic drugs 04/06/2022 11/03/2023 Other specified diseases of upper respiratory tract 04/06/2022 11/03/2023 Presence of automatic (impla ntable) cardiac defibrillator 04/06/2022 02/05/2024 Cardiac pacemaker in situ 03/13/2022 Uncontrolled type 2 diabetes mellitus with hyperglycemia 04/06/2020 02/05/2024 Overview (11/02/2023): Last Assessment & Plan: Encounters Date Type Department Care Team Description 12/30/2024 Orders Only GENERIC EXTERNAL DATA DEPARTMENT Provider, Generic External Data 11/24/2024 Telephone [facility] MEDICINE [address] [place] [address] Americo Stiles AR oct recalls 10/05/2024 Telephone [facility] MEDICINE [address] [place] [address] Keven Horan MD CHART PREP from Last 3 Months Immunizations Immunization Administration [...] with others, in a hotel, in a group home, living outside on the street, on [...] Description 02/20/2025 10:00 AM EST Office Visit [facility] MEDICINE [address] [place] [address] Name, MD Yoandy [address] [place] [address] Health Maintenance Due Date Last Done Comments [...] Associated Diagnosis Comments GLUCOSE, WHOLE BLOOD Routine 12/30/2024 3:47 PM EDT POCT GLYCATED HEMOGLOBIN, TOTAL Routine 07/27/2024 10:59 AM EDT Type 2 diabetes mellitus with other circulatory complication, without long-term current use of insulin ([facility]) ALBUMIN, RANDOM URINE W/CREATININE Routine 04/14/2024 11:04 AM EST Type 2 diabetes mellitus with other circulatory complication, without long-term current use of insulin ([facility]) LIPID PANEL, STANDARD Routine 06/27/2022 9:53 AM EDT from Last 3 Months or Most Recently Relevant to Health Maintenance Results * Glucose, Whole Blood (12/30/2024 3:47 PM EDT) Glucose, Whole Blood 105 60 - 115 mg/dL [facility] Comment:METER #: [id number] Testing performed in the Endocrinology Department [address] , [address], [facility]. 12/30/2024 3:47 PM EDT 12/30/2024 4:17 PM EDT us Generic External Data Provider LAB BLOOD ORDERAB LES Final Result Performing Organization Address City/State/[facility] Co de Phone Number [facility] [address] [place] [phone] * POCT HGB A1C (07/27/2024 10:59 AM EDT) Hemoglobin A1C 5.7 4.0 - 6.0 % QC Media Lot # [id number] Lot# Expiration Date Blood 07/27/2024 10:5 9 AM EDT Yoandy Tillman MD POINT OF CARE TEST ENTER/EDIT OR DERABLES Final Result * Albumin, Random Urine W/Creatinine (04/14/2024 11:04 AM EST) Creatinine, Urine 109.08 mg/dL [facility] Microalbumin Urine 6.0 mg/L [facility] Microalbum Creatinine Ratio Ur 5.5 <30 ug/mg cr [facility] Comment:Albumin/Creatinine R atio Reference Ranges: Normal: < 30 ug/mg creatinine Microalbuminuria: 30 - 300 ug/mg creatinineClinical Albuminuria: > 300 ug/mg creatinine Urine (Urine, Random) 04/14/2024 11:04 AM EST 04/14/2024 1:04 PM EST Yoandy Tillman MD LAB URINE ORDERABLES Final Resul t Performing Organization Address [facility] Co de Phone Number [facility] [address] [place] [phone] * Lipid Panel, Standard (06/27/2022 9:53 AM EDT) Triglycerides 84 mg/dL [facility] Comment:Desirable Triglyceri de: less than 150 mg/dLBorderline High Triglyceride 150-199 mg/dLHigh Triglyceride: 200-499 mg/dLVery High Triglyceride: greater than or equal to 5OO mg/dL Cholesterol 154 mg/dL [facility] Comment:Desirable Cholestero l: less than 200 mg/dLBorderline High Cholesterol: 200-239 mg/dLHigh Cholesterol: greater than 239 mg/dL LDL Cholesterol Calculated 104 mg/dl [facility] Comment:Desirable LDL: less than 100 mg/dLNear Optimal/Above Optimal LDL: 110- 129 mg/dLBorderline High LDL: 130-159 mg/dLHigh LDL: 160-189 mg/dLVery High LDL: greater than or equal to 190 mg/dL HDL Cholesterol 34 mg/dL [facility] Comment:Desirable HDL: great er than 40 mg/dL Note: This HDL assay may give artificially low results in patients with liver disease. 06/27/2022 9:53 AM EDT 06/27/2022 9:53 AM EDT [facility] External Provider LAB BLO OD ORDERABLES Final Result Performing Organization Address [facility] Co de Phone Number [facility] [address] [place] [phone] from Last 3 Months or Most Recently Relevant to Health Maintenance Insurance [facility]ICARE [facility] MEDEX CARE [facility] Care Teams Field Artillery Officer Relationship Specialty Start Date End Date Name, MD Yoandy [address] [place] [address] PCP - General Internal Medicine 10/19/23 [facility] [place] 01/19/24
--- OUTSIDE RECORDS SUMMARY | 2025-01-02 13:20 | XMS_ITS | Clinical Summary ---
Author Organization [employer] [facility] Address [facility] [address] [place] [address] Phone Care Team Providers Care Endband Cutter Hand Name Role Phone Name, Yoandy LUGO Primary Care Provider [phone] Social History Tobacco Use Types Packs/Day Years [...] file Insurance MEDICARE PART A & B FORMERLY [facility] [address] [place] [id number] [place] PART A [place] [id number] FORMERLY [facility] [address] [place], [place] [id number] MEDICARE PART A & B [facility]LY [facility] FULL Member Subscriber Plan / Payer (Ef fective 2023-Present) Name:Matthew Toro Relation to Subscriber:Self Name:Matthew Toro Payer ID:Not on file Group ID:Not on file Type:Medicaid Address: [address] MEDICARE PART A & B [employer] SAFETY NET FULL MEDICARE PART A & B [facility] SAFETY NET FULL Member Subscriber Plan / Payer (Ef fective 2023-Present) Name:Matthew Toro Relation to Subscriber:Self Name:Avila Margarita Matthew Donny Payer ID:Not on file Group ID:Not on file Type:Medicaid Address: [address] [place] [id number] FOR[facility]LY [facility] FULL B Care Teams Endband Cutter Hand Relationship Specialty Start Date End Date Name, MD Yoandy [address] [place] [address] PCP - General Internal Medicine 11/02/23 Additional Source Comments The information contained in this document represents components of the legal health record. It is not the complete legal health record.[facility]
--- OUTSIDE RECORDS SUMMARY | 2025-01-02 13:20 | XMS_ITS | Encounter Summary ---
Author Organization [employer] Address [address] [facility] 7t [place] [address] Care Team Providers Care Electrical Sign Wirer Name Role Phone Name, Yoandy LUGO Primary Care Provider [phone] Name, Yoandy LUGO Primary Care Provider [phone] Reason for Visit * Reason Onset Date Comments FYI 10/01/2022 Encounter Details Date Type Department Care Team ([facility] st Contact Info) Description 10/01/2022 Telephone [facility] MEDICINE [address] [place], [place] [phone] Name, MD Yoandy [address] [place] [address] FYI Social History Tobacco Use Types Packs/Day [...] 10/01/2022 3:26 PM EDT Tc from spouse [facility] facility that patient during their vacation in [place] had two Heart Attacks and is currently hospitalized since 09/15/[address] [facility] documented in this encounter Plan of Treatment Upcoming Encounters Date Type Department Care Team (Late st Contact Info) Description 02/20/2025 10:00 AM EST Office Visit [facility] MEDICINE [address] [place] [address] Name, MD Yoandy [address] [place] [address] documented as of this encounter Visit Diagnoses Not on filedocumented in this encounter Care Teams Electrical Sign Wirer Relationship Specialty Start Date End Date Name, MD Yoandy [address] [place] [address] PCP - General Family Medicine 01/18/21 06/04/23 Name, MD Yoandy [address] [place] [address] PCP - General Internal Medicine 10/19/23 [facility] 01/19/24 documented as of this encounter
--- OUTSIDE RECORDS SUMMARY | 2025-01-02 13:21 | XMS_ITS | Data Portability ---
Author Organization [place] [facility], Allergy Address [address] [facility] 100 [place] [address] Assessment Encounter Date Assessment Date Assessment LastModified by Organization Details LastModified Time 02/25/2024 02/25/2024 68-year-old male presents today for evaluation of stridor and tracheal stenosis. Symptoms seem to worsen about 3 weeks ago following dilation in November. Of note he had heart transplant about 2 months ago at [facility]. Flexible laryngoscopy did not reveal any [...] heart transplant. Thank you. 2023 Tarsha wagner [facility] Pulmonary Medicine, [address] [facility], [place], [address], 09:56:34 Procedures None recorded. Surgeries None recorded. Imaging None recorded. Medication Orders None recorded. Patient TargetsNo targets recorded. Patient InstructionsNo instructions recorded. Reason for Referral Electric Welder Referral for T gaby stenosis following tracheostomy Established patient of Dr Alegre. Needs follow up appt/repeat endoscopy. Patient has recent heart transplant. Thank you. Referring Physician: Sandip Regalado, Otolaryngology, Encounter Date: 02/25/2024 Problems Name Problem SNOMED Code Status Onset Date Resolution Date Notes Provider Name and Address Organization Details Recorded Time Tracheal stenosis following tracheostomy 87514564 Active 2023 SANDIP REGALADO MD [address] [facility],[place] [address], [place], [address], [facility] 4 12:10:02 Sensorineural hearing loss of bilateral ears 853471350 Active 2024 BORA GRAY, [facility] [address] [facility],[place] [address], [place], [address], [facility] 5 16:02:33 Problem Notes None recorded. Procedures Surgical History Date Name Laterality Status Provider Name and Address Organization Details Recorded Time 04/15/19 25 Comp Audio with Tymps - 10727 & 33143 completed BORA GRAY [address],[place] [address], [place], [address], [facility] 04/15/2024 16:02:37 02/25/20 24 Fiberoptic Laryngoscopy (Comprehensive) completed SANDIP REGALADO MD [address] [place] [address],[address], [address], [facility] 02/25/2024 12:11:38 Imaging Results None recorded. [...] Not Available Not Available Comfort EZ Pen [place] 32 gauge x 5/32 active Not Available [...] Updated DateTime 04/15/2024 172.72 cm 20.2 kg/m2 12039.79 g Manda Ly [place] [facility] 04/15/2024 16:28:34 Date Recorded Body height Body mass index (BMI) Body weight Provider Name and Address Organization Details Last Updated DateTime 02/25/2024 172.72 cm 26.8 kg/m2 19372.26 g Manda Ly [facility] 02/25/2024 11:47:14 Social History None recorded. Functional Status None recorded. Mental Status None recorded. Family History Nothing Reported. Medical History Condition Response Diabetes Y Heart Problems Y Hyperlipidemia Y Past Encounters Encounter ID Performer Location Encounter Start Date Encounter Closed Date Diagnosis/Indication Diagnosis SNOMED-CT Code Diagnosis ICD10 Code Diagnosis IMO Codes Diagnosis Note [id number] SANDIP REGALADO MD [facility] [address] [address] 02/25/2024 11:26:24 02/25/2024 12:26:39 Tracheal stenosis following tracheostomy 26979929 J95.03 [id number] SANDIP REGALADO MD [facility] [address] [address] 04/15/2024 15:37:29 04/15/2024 16:57:22 Sensorineural hearing loss of bilateral ears 208639525 H90.3 68 yo M with a history [...] and there was likely some irritation here. [id number] JACQUE LUGO [facility] [address] [address] 04/15/2024 15:59:22 04/18/2024 07:41:17 Sensorineural hearing loss of bilateral ears 562044583 H90.3 Right Ear:Normal hearing through 1.5K Hz [...] Name 06/15/2024 2 [place] [id number] Matthew L Avila [id number] Matthew Donny Avila Avila 06/15/2024 1 [place] [employer] Matthew Avila Avila [id number] Matthew Donny Avila Avila 06/15/2024 2 [place] [id number] Matthew L Avila Avila [id number] Matthew Donny Avila Avila Notes Date Note Type Note Provider Name and Address Organization Details Recorded Time 02/25/2024 text/html ROS as noted in the HPI 68 yo M here for tracheal stenosis.Wheezing, had had 5 bronchoscopies. Scarring in the trachea following tracheostomy due to intensive care after heart attack, last year 2022 in [place], was on vacation. Coughing a lot. Had [...] corrected for lung volume SANDIP REGALADO MD [address] [place] [address],[address], [address], [facility] 02/26/2024 10:58:54 04/15/2024 text/html Starting feeling numb on the side of the ear right after his surgeryTTP over jaw Has seen Dr. Walton. SANDIP REGALADO MD [address] [place] [address],[address], [address], [facility] 04/18/2024 07:25:33
--- OUTSIDE RECORDS SUMMARY | 2025-01-02 13:21 | XMS_ITS | Encounter Summary ---
Author Organization [employer] Address [address] [facility] [address] 7t [place] [address] Care Team Providers Care Rolfer Name Role Phone Name, Yoandy LUGO Primary Care Provider [phone] Name, Yoandy LUGO Primary Care Provider [phone] Encounter Details Date Type Department Care Team (Late st Contact Info) Description 03/21/2022 Orders Only [facility] MEDICINE [address] [place] [address] Coby Flores RN Social History Tobacco Use [...] 02/20/2025 10:00 AM EST Office Visit [facility] MEDICINE [address] [place] [address] Name, MD Yoandy [address] [place] [address] documented as of this encounter Procedures Procedure Name Priority Date/Time Associated Diagnosis Comments B TYPE NATRIURETIC PEPTIDE (BNP) Routine 06/27/2022 9:53 AM EDT HEPATIC FUNCTION PANEL Routine 06/27/2022 9:53 AM EDT LIPID PANEL, STANDARD Routine 06/27/2022 9:53 AM EDT BASIC METABOLIC PANEL Routine 06/27/2022 9:53 AM EDT documented in this encounter Results * Lipid Panel, Standard (06/27/2022 9:53 AM EDT) Triglycerides 84 mg/dL [facility] Comment:Desirable Triglyceri de: less than 150 mg/dLBorderline High Triglyceride 150-199 mg/dLHigh Triglyceride: 200-499 mg/dLVery High Triglyceride: greater than or equal to 5OO mg/dL Cholesterol 154 mg/dL [facility] Comment:Desirable Cholestero l: less than 200 mg/dLBorderline High Cholesterol: 200-239 mg/dLHigh Cholesterol: greater than 239 mg/dL LDL Cholesterol Calculated 104 mg/dl [facility] Comment:Desirable LDL: less than 100 mg/dLNear Optimal/Above Optimal LDL: 110- 129 mg/dLBorderline High LDL: 130-159 mg/dLHigh LDL: 160-189 mg/dLVery High LDL: greater than or equal to 190 mg/dL HDL Cholesterol 34 mg/dL [facility] Comment:Desirable HDL: great er than 40 mg/dL Note: This HDL assay may give artificially low results in patients with liver disease. 06/27/2022 9:53 AM EDT 06/27/2022 9:53 AM EDT [facility] External Provider LAB BLO OD ORDERABLES Final Result [facility] [address] [place] [phone] * (ABNORMAL) Basic Metabolic Panel (06/27/2022 9:53 AM EDT) Sodium 143 135 - 145 mmol/L [facility] Potassium 4.6 3.3 - 5.1 mmol/L [facility] Chloride 108 96 - 108 mmol/L [facility] Carbon Dioxide 26 22 - 29 mmol/L [facility] Anion Gap 14 12 - 20 [facility] Urea Nitrogen (BUN) 13 9 - 16 mg/dL [facility] Creatinine, Serum 1.02 0.5 - 1.4 mg/dL [facility] Estimated Glomerular Filt Rate >60 [facility] Comment:NOTE: For -Am erican individuals, multiply the result by 1.210.Chronic Kidney Disease: Estimated GFR < 60 mL/min/1.67c3Hvxzsj Kidney Disease: Estimated GFR < 15 mL/min/1.73m2 Glucose 141(H) 60 - 115 mg/dL [facility] Calcium 9.4 8.4 - 10.2 mg/dL [facility] 06/27/2022 9:53 AM EDT 06/27/2022 9:53 AM EDT [facility] External Provider LAB BLO OD ORDERABLES Final Result Performing Organization Address [facility] Co de Phone Number [facility] [address] [place] [phone] * Hepatic Function Panel (06/27/2022 9:53 AM EDT) Bilirubin, Total 1.0 0.0 - 1.0 mg/dL [facility] Bilirubin, Direct 0.3 0.0 - 0.5 mg/dL [facility] Aspartate Amino Transferase 19 5 - 37 U/L [facility] Alanine Aminotransferase 24 0 - 40 U/L [facility] Total Protein 6.7 6.5 - 8.0 g/dL [facility] Albumin Level 4.2 3.5 - 5.0 g/dL [facility] Alkaline Phosphatase 61 39 - 117 U/L [facility] 06/27/2022 9:53 AM EDT 06/27/2022 9:53 AM EDT [facility] External Provider LAB BLO OD ORDERABLES Final Result Performing Organization Address [facility] de Phone Number [facility] [address] [place] [phone] * (ABNORMAL) B Type Natriuretic Peptide (BNP) (06/27/2022 9:53 AM EDT) B Type Natriuretic Peptide 332(H) <100 pg/mL [facility] Comment:For those patients w ho are being treated with Natrecor(nesiritide, recombinant BNP), BNP testing should beperformed at least two hours post treatment in order toensure that only endogenous levels of BNP are detected. 06/27/2022 9:53 AM EDT 06/27/2022 9:53 AM EDT us [facility] External Provider LAB BLO OD ORDERABLES Final Result [facility] [address] [place] [address] [phone] documented in this encounter Visit Diagnoses Not on filedocumented in this encounter Care Teams Rolfer Relationship Specialty Start Date End Date NameYoandy MD [address] [place] [address] PCP - General Family Medicine 01/18/21 06/04/23 Name, MD Yoandy [address] [place] [address] PCP - General Internal Medicine 10/19/23 [facility] 01/19/24 documented as of this encounter
--- OUTSIDE RECORDS SUMMARY | 2025-01-02 13:21 | XMS_ITS | Encounter Summary ---
Author Organization [employer] Address [address] [facility] 7t [place] [address] Care Team Providers Care Earth Science Teacher Name Role Phone Name, Yoandy LUGO Primary Care Provider [phone] Encounter Details Date Type Department Care Team ([facility] st Contact Info) Description 12/30/2024 Orders Only GENERIC EXTERNAL DATA DEPARTMENT Provider, Generic External Data Social History Tobacco Use Types Packs/Day Years [...] Description 02/20/2025 10:00 AM EST Office Visit [facility] MEDICINE [address] [place] [address] Name, MD Yoandy [address] [place] [address] documented as of this encounter Procedures Procedure Name Priority Date/Time Associated Diagnosis Comments GLUCOSE, WHOLE BLOOD Routine 12/30/2024 3:47 PM EDT documented in this encounter Results * Glucose, Whole Blood (12/30/2024 3:47 PM EDT) Glucose, Whole Blood 105 60 - 115 mg/dL [facility] Comment:METER #: [id number] Testing performed in the Endocrinology Department [address] , [address], [facility]. 12/30/2024 3:47 PM EDT 12/30/2024 4:17 PM EDT us Generic External Data Provider LAB BLOOD ORDERAB LES Final Result [facility] [address] [place] [phone] documented in this encounter Visit Diagnoses Not on filedocumented in this encounter Additional Health Concerns Assessment Noted Time PHQ-9 Depression Total Score: 0 10/20/19 24 4:12 PM EDT documented as of this encounter Care Teams Earth Science Teacher Relationship Specialty Start Date End Date Name, MD Yoandy [address] [place] [address] PCP - General Internal Medicine 10/19/23 [facility] 01/19/24 documented as of this encounter
[2025-01-02 13:31] LABS: Hematocrit 32.9 % (42.0-52.0); Hemoglobin 10.8 g/dl (14.0-18.0); Mean Corpuscular HGB Conc 32.8 g/dl (31.0-36.0); Mean Corpuscular Hemoglobin 28.6 pg (27.0-33.0); Mean Corpuscular Volume 87.0 fL (80.0-98.0); NRBC Abs Auto 0.000 X10*3/uL (0.0-0.012); NRBC Pct Auto 0.0 /100WBC (0.0-0.2); Platelet Count 119 X10*3/uL (160-400); Red Blood Count 3.78 X10*6/uL (4.60-5.80); White Blood Count 3.7 X10*3/uL (4.8-10.8)
[2025-01-02 14:07] LABS: Band Neutrophils Percent 5 % (3-5); Eosinophils Absolute Manual 0.2 X10*3/uL (0.0-0.4); Eosinophils Percent Manual 6 % (0-4); Lymphocytes Absolute Manual 0.3 X10*3/uL (1.2-4.9); Lymphocytes Percent Manual 8 % (20-40); Monocytes Absolute Manual 0.1 X10*3/uL (0.1-1.2); Monocytes Percent Manual 3 % (2-11); Neutrophils Absolute Manual 3.1 X10*3/uL (2.0-8.3); Neutrophils Percent Manual 78 % (45-73)
[2025-01-02 14:08] LABS: RBC Morphology NOTED
[2025-01-02 14:09] LABS: Hypochromasia 1+ (5-14) /OIF
[2025-01-02 14:28] LABS: Alanine Aminotransferase 12 U/L (0-40); Albumin Level 4.5 g/dL (3.5-5.0); Alkaline Phosphatase 49 U/L (39-117); Anion Gap 11 (12-20); Aspartate Amino Transferase 21 U/L (5-37); Blood Urea Nitrogen 18 mg/dL (9-16); Calcium 9.4 mg/dL (8.4-10.2); Carbon Dioxide 28 mmol/L (22-29); Chloride 112 mmol/L (96-108); Estimated Glomerular Filt Rate > 60; Potassium 4.5 mmol/L (3.3-5.1); Sodium 146 mmol/L (135-145); Total Protein 6.7 g/dL (6.5-8.0)
[2025-01-03 16:54] LABS: CMV DNA Qn PCR 1.78 Log IU/mL (NOT DETECTED)
== END 2025-01-02 11:56 | disposition home or self-care (01) ==
LOC: HO.LABR 11:55
PROVIDERS: Visit Provider Nurse Practitioner Family
DX: B25.9 Cytomegaloviral disease, unspecified (principal)
CPT/HCPCS: 36415; 80053; 85007; 85025; 85027; 87497

== ENCOUNTER 2025-01-09 10:29 | Outpatient (REF) | payer MEDICARE, SELFPAY ==
[2025-01-09 11:08] LABS: Hematocrit 31.0 % (42.0-52.0); Hemoglobin 10.7 g/dl (14.0-18.0); Imm Gran Abs Auto 0.05 X10*3/uL (0.00-0.03); Imm Gran Pct Auto 2.1 % (0.0-0.4); Lymphocytes Absolute Auto 0.5 X10*3/uL (1.2-4.9); Mean Corpuscular HGB Conc 34.5 g/dl (31.0-36.0); Mean Corpuscular Hemoglobin 29.2 pg (27.0-33.0); Mean Corpuscular Volume 84.7 fL (80.0-98.0); NRBC Abs Auto 0.000 X10*3/uL (0.0-0.012); NRBC Pct Auto 0.0 /100WBC (0.0-0.2); Platelet Count 112 X10*3/uL (160-400); Red Blood Count 3.66 X10*6/uL (4.60-5.80)
[2025-01-09 11:09] LABS: White Blood Count 2.4 X10*3/uL (4.8-10.8)
[2025-01-09 11:45] LABS: Alanine Aminotransferase 12 U/L (0-40); Albumin Level 4.5 g/dL (3.5-5.0); Alkaline Phosphatase 48 U/L (39-117); Anion Gap 9 (12-20); Aspartate Amino Transferase 23 U/L (5-37); Blood Urea Nitrogen 15 mg/dL (9-16); Calcium 9.6 mg/dL (8.4-10.2); Carbon Dioxide 28 mmol/L (22-29); Chloride 112 mmol/L (96-108); Estimated Glomerular Filt Rate > 60; Potassium 4.2 mmol/L (3.3-5.1); Sodium 145 mmol/L (135-145); Total Protein 6.6 g/dL (6.5-8.0)
--- OUTSIDE RECORDS SUMMARY | 2025-01-09 12:24 | XMS_ITS | Encounter Summary ---
Author Organization [facility] Address [address] [facility] [address] [place] [address] Care Team Providers Care Isobutylene Operator Chief Name Role Phone Glenn Herman MD Unavailable [phone] NameYoadny MD Primary Care Provider Edward Handley mechanic welder truck driver Unavailable Unavailable Jennie Michelle PharmD Unavailable Juan Hutchinson MD Unavailable [phone] Encounter Details Date Type Department Care Team (Late st Contact Info) Description 12/20/2024 Results Follow-Up [facility] Infectious Disease [address] [facility] 3rd [place] [address] Lena Cortes, FLAME ANNEALING MACHINE SETTER [address] [place] [phone] Social History Tobacco Use Types Packs/Day Years [...] Bethany Padilla RN documented in this encounter Plan of Treatment Upcoming Encounters Date Type Department Care Team (Late st Contact Info) Description 01/16/2025 1:45 PM EDT Office Visit [facility] Dermatology [address] [place] [address] Nelida Ayala MD [address] [place] [address] 02/02/2025 1:30 PM EDT Office Visit [facility] Lung Nodule [address] [address] Alfred Mckeon MD [address] [place] [address] 02/02/2025 2:00 PM EDT Office Visit [facility] Lung Nodule [address] [phone] Yoav Portillo Lung Nod Pul 02/22/2025 2:00 PM EST Office Visit [facility] Neurology [address] [place] [address] Percy Kapoor MD [address] [address] 03/20/2025 12:00 PM EST Office Visit [facility] Cardiac Subspecialty [address] [phone] Charlie Barry MD [address] [place] [address] 07/12/2025 10:30 AM EDT Appointment [facility] Pulmonary Function Lab [address] [facility] [address] 5th Floor Room [address] [place] [phone] 07/12/2025 11:30 AM EDT Office Visit [facility] Pulmonary [address] [facility] [address] [address] 3rd [place] [phone] Daysi Fink MD [address] [facility] Intensive Care Unit/[facility] [address] documented as of this encounter Visit Diagnoses Not on filedocumented in this encounter Care Teams Isobutylene Operator Chief Relationship Specialty Start Date End Date Name, MD Yoandy [address] [place] [address] PCP - General Hospice Registered Nurse 11/12/23 Glenn Herman MD [address] [place] [address] Referring Physician Cardiology 11/12/23 Edward Handley CPhT Data [facility] 12/31/23 Jennie Michelle, RadhaD [address] [place] [address] Pharmacist Pharmacy 01/27/24 Juan Hutchinson MD [address] [place] [address] [address] [place] [address] Attending Physician Cardiology 12/19/24 documented as of this encounter
--- OUTSIDE RECORDS SUMMARY | 2025-01-09 12:24 | XMS_ITS ---
Author Organization [facility] Address [address] [facility], [address] [place] [address] Care Team Providers Care Drafter Chief Design Name Role Phone Glenn Herman MD Unavailable [phone] NameYoandy MD Primary Care Provider [phone] Edward Handley CPhT Unavailable Unavailable Jennie Michelle PharmD Unavailable [phone] Juan Hutchinson MD Unavailable [phone] RxSp Transplant Status:Enrolled (Active) Start date:12/31/2023 [...] Name Relationship Phone Edward Handley CPhT(Responsible Staff) Mechanical Design Engineer Facilities Jennie Michelle PharmD Pharmacist [phone] Continued Care and Services Coordination
--- OUTSIDE RECORDS SUMMARY | 2025-01-09 12:24 | XMS_ITS | Encounter Summary ---
Author Organization [facility] Address [address] [facility] [address] [place] [address] Care Team Providers Care Retail Pharmacy Technician Name Role Phone Glenn Herman MD Unavailable [phone] NameYoandy MD Primary Care Provider Edward Handley fire protection engineer Unavailable Unavailable Jennie Michelle PharmD Unavailable Juan Hutchinson MD Unavailable [phone] Encounter Details Date Type Department Care Team (Late st Contact Info) Description 11/08/2024 Results Follow-Up [facility] Infectious Disease [address] [facility] 3rd [place] [address] Lena Cortes, BROKERAGE OFFICE MANAGER [address] [place] [phone] Social History Tobacco Use Types Packs/Day Years [...] place to sleep or slept in a care home (including now)? No 11/26/2023 Sex and [...] Description 01/16/2025 1:45 PM EDT Office Visit [facility] Dermatology [address] [place] [address] Nelida Ayala MD [address] [place] [address] 02/02/2025 1:30 PM EDT Office Visit [facility] Lung Nodule [address] [phone] Alfred Mckeon MD [address] [place] [address] 02/02/2025 2:00 PM EDT Office Visit [facility] Lung Nodule [address] [address] , Yoav Lung Nod Pul 02/22/2025 2:00 PM EST Office Visit [facility] Neurology [address] [place] [address] Percy Kapoor MD [facility] 800 [place] [address] 03/20/2025 12:00 PM EST Office Visit [facility] Cardiac Subspecialty [address] [facility] 6th [place] [phone] Charlie Barry MD 800 [place] [address] 07/12/2025 10:30 AM EDT Appointment [facility] Pulmonary Function Lab [address] [facility] [address] [facility] 5th Floor Room [address] [place] [phone] 07/12/2025 11:30 AM EDT Office Visit [facility] Pulmonary [address] [facility] [address] 3rd [place] [address] Daysi Fink MD [address] [place] [address] Intensive Care Unit/[facility] [address] documented as of this encounter Visit Diagnoses Not on filedocumented in this encounter Care Teams Retail Pharmacy Technician Relationship Specialty Start Date End Date Name, MD Yoandy [address] [place] [address] PCP - General Sign Fabricator 11/12/23 Glenn Herman MD [address] [place] [address] Referring Physician Cardiology 11/12/23 Edward Handley, fire protection engineer [facility] 12/31/23 Jennie Michelle, PharmD [address] [place] [address] Pharmacist Pharmacy 01/27/24 Juan Hutchinson MD [address] [facility] [address] [place] [address] Attending Physician Cardiology 12/19/24 documented as of this encounter
--- OUTSIDE RECORDS SUMMARY | 2025-01-09 12:24 | XMS_ITS | Encounter Summary ---
Author Organization [facility] Address [address] [facility] [address] [place] [address] Care Team Providers Care Fabrication Engineer Name Role Phone Glenn Herman MD Unavailable [phone] Name, Yoandy LUGO Primary Care Provider Edward Handley carton wrapper Unavailable Unavailable Jennie Michelle PharmD Unavailable [phone] Juan Hutchinson MD Unavailable [phone] Encounter Details Date Type Department Care Team (Late st Contact Info) Description 01/02/2025 Orders Only [facility] Infectious Disease [address] [facility] 3rd [place] [address] Lena Cortes, OPTOMETRY ASSISTANT [address] [place] [phone] Social History Tobacco Use Types Packs/Day Years [...] place to sleep or slept in a senior care (including now)? No 11/26/2023 Sex and Gender [...] Description 01/16/2025 1:45 PM EDT Office Visit [facility] Dermatology [address] [place] [address] Nelida Ayala MD [address] [place] [address] 02/02/2025 1:30 PM EDT Office Visit [facility] Lung Nodule [address] [phone] Alfred Mckeon MD [address] [place] [address] 02/02/2025 2:00 PM EDT Office Visit [facility] Lung Nodule [address] [phone] Yoav Lugo Lung Nod Pul 02/22/2025 2:00 PM EST Office Visit [facility] Neurology [address] [place] [address] Percy Kapoor MD [address] [address] 03/20/2025 12:00 PM EST Office Visit [facility] Cardiac Subspecialty [address] [phone] Charlie Barry MD [address] [place] [address] 07/12/2025 10:30 AM EDT Appointment [facility] Pulmonary Function Lab [address] [facility] [address] 5[address] Floor Room [address] [place] [phone] 07/12/2025 11:30 AM EDT Office Visit [facility] Pulmonary [address] [facility] [address] [place] [phone] Daysi Fink MD [address] [facility] Intensive [facility] Unit/[facility] [address] documented as of this encounter Visit Diagnoses Not on filedocumented in this encounter Care Teams Fabrication Engineer Relationship Specialty Start Date End Date Name, MD Yoandy [address] [place] [address] PCP - General Salesperson Furniture 11/12/23 Glenn Herman MD [address] [place] [address] Referring Physician Cardiology 11/12/23 Edward Handley CPhT Booth Supervisor Pharmacy 12/31/23 Jennie Michelle, PharmD [address] [place] [address] Pharmacist Pharmacy 01/27/24 Juan Hutchinson MD [address] [facility] [address] [place] [address] Attending Physician Cardiology 12/19/24 documented as of this encounter
--- OUTSIDE RECORDS SUMMARY | 2025-01-09 12:24 | XMS_ITS | Clinical Summary ---
Author Organization [facility] Address [address] [facility] [place] [address] Care Team Providers Care Wage And Salary Administrator Name Role Phone Glenn Herman MD Unavailable Yoandy Tillman MD Primary Care Provider [phone] Edward Handley bank sales and service manager Unavailable Unavailable Jennie Michelle PharmD Unavailable [phone] Bridger Hernandez MD Unavailable [phone] Allergies Active Allergy Reactions Criticality Noted [...] 10/20/ 025 4:43 PM EDT 01/18 Active alcohol swabs [...] 6 Units before evening meal., Reported on 01/03/2025 insulin glargine (Lantus Solostar U-100 Insulin) 100 unit/mL (3 mL) injection Inject 30 units under the skin every evening. 15 mL 7 025 5:39 PM EDT 2024 Active Additional Information Patient taking differently: 22 UnitssubcutaneousEvery morning, Takes 22mg every am, Reason: taking 22 units every am, Reported on 01/03/2025 insulin lispro (HumaLOG KwikPen Insulin) 100 unit/mL injection Inject 6 units under the skin with breakfast, 12 units with lunch and 12 units with dinner. max 30 units/24 hours 30 mL 3 025 4:43 PM EDT 2024 Active Additional Information Patient not taking.Reported on 12/19/2024 pen needle, diabetic (BD Ultra-Fine Mini Pen Needle) 31 gauge x 3/16 needleIndications :Heart transplant recipient Use with insulin pen as directed 100 each 2 025 3:45 PM EDT 2024 Active fluticasone (Flonase) 50 mcg/actuation nasal sprayIndications: Chronic cough Administer 1 spray into each nostril once daily. Shake gently. Before first use, prime pump. After use, clean tip and replace cap. 16 g 3 025 4:35 PM EDT 01/13 Active tacrolimus (Prograf) 5 mg capsuleIndication s:Heart transplant recipient Take 1 capsule (5 mg) by mouth twice daily. 60 capsule 11 025 4:35 PM EDT 10/17 Active tacrolimus (Prograf) 1 mg capsuleIndication s:Heart transplant recipient Take 1 capsule (1 mg) by mouth twice daily. 60 capsule 11 025 4:35 PM EDT 11/07 Active famotidine (Pepcid) 20 mg tabletIndications :Heart transplant recipient Take 1 tablet (20 mg) by mouth before evening meal. 30 tablet 2 025 4:35 PM EDT 02/05 Active cholecalciferol, vitamin D3, (Vitamin D-3) 25 MCG (1000 UT) tabletIndications :Heart transplant recipient Take 1 tablet (1,000 Units) by mouth once daily. 30 tablet 025 3:45 PM EDT 11/15 Active aspirin 81 mg chewable tabletIndications :Heart transplant recipient Chew 1 tablet (81 mg) once daily. 30 tablet 3:45 PM EDT 11/15 Active predniSONE (Deltasone) 5 mg tabletIndications :Heart transplant recipient Take 1 tablet (5 mg) by mouth once daily. 30 tablet 5 4:35 PM EDT 06/11 Active pantoprazole (ProtoNix) 40 mg EC tabletIndications :Heart transplant recipient Take 1 tablet (40 mg) by mouth before breakfast. Do not crush, chew, or split. 30 tablet 11 025 4:35 PM EDT 12/13 Active sulfamethoxazole- trimethoprim (Bactrim DS) 800-160 mg tabletIndications :Heart transplant recipient Take 1 tablet by mouth once daily. 30 tablet 025 4:35 PM EDT 2024 Active levETIRAcetam (Keppra) 750 mg tabletIndications :Heart transplant recipient Take 1 tablet (750 mg) by mouth twice daily. 60 tablet 2 025 4:35 PM EDT 03/13 Active mycophenolate (Cellcept) 250 mg capsuleIndication s:Heart transplant recipient Take 1 capsule (250 mg) by mouth twice daily. 60 capsule 11 025 12:46 PM EDT 12/19 Active mycophenolate (Cellcept) 500 mg tabletIndications :Heart transplant recipient Take 1 tablet (500 mg) by mouth twice daily. Take in addition to 250mg cap, total dose 750mg twice daily. 60 tablet 11 025 5:19 PM EDT 12/19 Active pravastatin (Pravachol) [...] not crush or chew. 30 tablet 1 5:19 PM EDT 01/25 Active pantoprazole (ProtoNix) 40 mg EC tabletIndications :Heart transplant recipient Take 1 tablet (40 mg) by mouth before breakfast. Do not crush, chew, or split. 30 tablet 3:45 PM EDT 12/13 Disconti nued(Reo rder) sulfamethoxazole- trimethoprim (Bactrim DS) 800-160 mg tabletIndications :Heart transplant recipient Take 1 tablet by mouth once daily. 30 tablet 3:45 PM EDT 12/13 Disconti nued(Reo rder) pravastatin (Pravachol) 80 mg tabletIndications :Heart transplant recipient Take 1 tablet (80 mg) by mouth once daily. 30 tablet 11 12/13 Disconti nued(Reo rder) predniSONE (Deltasone) 5 mg tabletIndications :Heart transplant recipient Take 1 tablet (5 mg) by mouth once daily. 30 tablet 5 025 3:45 PM EDT 12/13 Disconti nued(Reo rder) levETIRAcetam (Keppra) 750 mg tabletIndications :Heart transplant recipient Take 1 tablet (750 mg) by mouth twice daily. 60 tablet 2 025 3:45 PM EDT 12/13 Disconti nued(Reo rder) valGANciclovir (Valcyte) 450 mg tabletIndications :Other cytomegaloviral diseases Take 1 tablet (450 mg) by mouth twice daily. Do not crush or chew. 180 tablet 2:12 PM EDT 12/19 Disconti nued(The rapy complete d) mycophenolate (Cellcept) 500 mg tabletIndications :Heart transplant recipient Take 1 tablet (500 mg) by mouth twice daily. Take in addition to 250mg cap, total dose 750mg twice daily. 60 tablet 11 025 4:35 PM EDT 12/13 Disconti nued(Reo rder) mycophenolate (Cellcept) 250 mg capsuleIndication s:Heart transplant recipient Take 1 capsule (250 mg) by mouth twice daily. Take in addition to 500mg tab, total dose 750mg twice daily. 60 capsule 11 025 4:01 PM EDT 12/13 Disconti nued(Reo rder) mycophenolate (Cellcept) 250 mg capsuleIndication s:Heart transplant recipient Take 1 capsule (250 mg) by mouth twice daily. Take in addition to 500mg tab, total dose 750mg twice daily. 60 capsule 11 12/13 Disconti nued(Reo rder) pravastatin (Pravachol) 80 mg tabletIndications :Heart transplant recipient Take 1 tablet (80 mg) by mouth once daily. 30 tablet 11 12/19 Disconti nued(Reo rder) mycophenolate (Cellcept) 250 mg capsuleIndication s:Heart transplant recipient Take 1 capsule (250 mg) by mouth twice daily. Take in addition to 500mg tab, total dose 750mg twice daily. 60 capsule 11 12/19 Disconti nued(The rapy complete d) mycophenolate (Cellcept) 500 mg tabletIndications :Heart transplant recipient Take 1 tablet (500 mg) by mouth twice daily. Take in addition to 250mg cap, total dose 750mg twice daily. 60 tablet 11 12/19 Disconti nued(Reo rder) valGANciclovir (Valcyte) 450 mg tabletIndications :Cytomegalovirus (CMV) viremia Take 1 tablet (450 mg) by mouth once daily. Do not crush or chew. 30 tablet 1 12/26 Disconti nued(Reo rder) dextromethorphan- guaifenesin (Robitussin DM) 10-100 mg/5 mL syrupIndications: Chronic cough Take 5 mL by mouth if needed in the morning, at noon, and at bedtime for cough for up to 10 days. 118 mL 01/07 Active Problems Problem Noted Date Diagnosed Date [...] 's report Asked patient to call his Spinning Machine Tender regarding his increased weight/swelling for further recommendations. Last Assessment & Plan: reports he's up a few pounds from his baseline weight, worsening leg swelling over the last few days. Compliant with Torsemide - taking full dose per 's report Asked patient to call his Spinning Machine Tender regarding his increased weight/swelling for [...] Encounters Date Type Department Care Team Description 01/03/2025 10:30 AM EDT - 01/03/2025 12:30 PM EDT Surgery [facility] [employer] [address] [place] [phone] Luisa Yang MD Coronary angiography [81434 (CPT )] 01/03/2025 10:17 AM EDT - 01/03/2025 4:56 PM EDT Hospital Encounter [facility] [address] [place] [address] Luisa Yang MD Other cytomegaloviral diseases (Multi-HCC) (Primary Dx); Heart transplant recipient (Multi-HCC) Discharge Disposition: Home or self care 01/03/2025 Travel 01/02/2025 Orders Only [facility] Infectious Disease [address] [phone] Lena Cortes NP 12/28/2024 11:30 AM EDT Office Visit [facility] Pulmonary [address] [phone] Daysi Fink MD Chronic cough (Primary Dx); Pulmonary sarcoidosis (Multi-HCC); 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); Cardiac sarcoidosis (HHS-HCC); Dyspnea and respiratory abnormality 12/28/2024 10:16 AM EDT - 12/28/2024 11:59 PM EDT Hospital Encounter [facility] Imaging [address] [place] [address] Cytomegalovirus infection, unspecified cytomegaloviral infection type (Multi-HCC); Tracheal stenosis; Pulmonary sarcoidosis (Multi-HCC) Discharge Disposition: Home or self care 12/28/2024 Travel 12/26/2024 Orders Only [facility] Infectious Disease [address] [phone] Lena Cortes NP Cytomegalovirus (CMV) viremia (Multi-HCC) 12/20/2024 Results Follow-Up [facility] Infectious Disease [address] [phone] Lena Cortes NP 12/19/2024 11:40 AM EDT - 12/19/2024 11:59 PM EDT Hospital Encounter [facility] Radiology [address] [place] [address] Other cytomegaloviral diseases (Multi-HCC); Heart transplant recipient (Multi-HCC) Discharge Disposition: Home or self care 12/19/2024 11:00 AM EDT Office Visit [facility] Cardiac Subspecialty [address] [phone] Bridger Hernandez MD Type 2 diabetes mellitus with other specified complication, unspecified whether local company intermodal truck driver insulin use (Multi-HCC) (Primary Dx); Other cytomegaloviral diseases (Multi-HCC); Heart transplant recipient (Multi-HCC); Mixed hyperlipidemia ; Prostate cancer screening; Sarcoidosis 12/19/2024 7:36 AM EDT - 12/19/2024 11:39 AM EDT Hospital Encounter [facility] Cardiac Echo [address] [facility] [address] [place] [phone] Other cytomegaloviral diseases (Multi-HCC); Heart transplant recipient (Multi-HCC); Heart transplant rejection (Multi-HCC) Discharge Disposition: Home or self care 12/19/2024 Telephone [facility] Cardiac Subspecialty [address] [phone] Kailyn Hess Appointment; Follow-up 12/19/2024 Travel 12/14/2024 Orders Only [facility] Infectious Disease [address] [phone] Lena Cortes NP Heart transplant recipient (Multi-HCC) (Primary Dx); Other cytomegaloviral diseases (Multi-HCC) 12/13/2024 Refill [facility] Infectious Disease [address] [phone] Lena Cortes DIVISION SALES MANAGER Other cytomegaloviral diseases (Multi-HCC) 12/13/2024 Refill [facility] Cardiac Subspecialty [address] [phone] Jose Angel Nunez NP Heart transplant recipient (Multi-HCC) 12/13/2024 Refill [facility] Cardiology [address] [place] [address] Izaiah Martinez MD Heart transplant recipient (Multi-HCC) 12/13/2024 Refill [facility] Cardiology [address] [facility] [address] [place] [address] Pedro Kline MD Heart transplant recipient (Multi-HCC) 12/13/2024 Refill [facility] Cardiac Subspecialty [address] [phone] Sharon Savage NP Heart transplant recipient (Multi-HCC) 12/02/2024 Telephone [facility] Patient Access [address] [place] [address] Do, Barrera-Chi 11/21/2024 Telephone [facility] Cardiac Subspecialty [address] [phone] Kailyn Hess Appointment 11/16/2024 Telephone [facility] Cardiac Subspecialty [address] [phone] Kailyn Hess Appointment 11/15/2024 Refill [facility] Cardiology [address] [facility] [address] [place] [address] Pedro Kline MD Heart transplant recipient (Multi-HCC) 11/08/2024 Results Follow-Up [facility] Infectious Disease [address] [phone] Lena Cortes NP 11/07/2024 1:00 PM EDT Office Visit [facility] Infectious Disease [address] [phone] Chi Barton MD Other cytomegaloviral diseases (Multi-HCC) (Primary Dx); Immunosuppressed status (Multi-HCC); Heart transplant recipient (Multi-HCC); Preventative health care; Other fatigue; Upper airway cough syndrome 11/07/2024 12:15 PM EDT Office Visit [facility] Cardiac Subspecialty [address] [phone] Jose Angel Nunez NP Heart transplant recipient (Multi-HCC) (Primary Dx); Essential hypertension, benign ; Mixed hyperlipidemia ; Type 2 diabetes mellitus with other specified complication, unspecified whether prison insulin use (Multi-HCC); Subglottic stenosis; Sarcoidosis; Pulmonary nodules; Other cytomegaloviral diseases (Multi-HCC); Observed seizure-like activity (Multi-HCC) 11/07/2024 Travel 10/25/2024 Telephone [facility] Infectious Disease [address] [phone] Lena Cortes NP 10/25/2024 Telephone [facility] Infectious Disease [address] [phone] Chi Barton MD req labs orders 10/24/2024 Telephone [facility] Infectious Disease [address] [phone] Lena Cortes DIVISION SALES MANAGER 10/17/2024 Orders Only [facility] Cardiac Subspecialty [address] [phone] Daniele Barnhart MD 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) 10/11/2024 Telephone [facility] Infectious Disease [address] [phone] Lena Cortes, DIVISION SALES MANAGER from Last 3 Months Immunizations Immunization Administration [...] Vaccine Formula 12+ (Deferred: Not available from freezer unloader - Per pharmacy vaccine is out of [...] Sign Reading Time Taken Comments Blood Pressure 110/71 01/03/2025 4:00 PM EDT Pulse 96 01/03/2025 4:00 PM EDT Temperature 36.2 C (97.2 F) 01/03/2025 1:00 PM EDT Respiratory Rate 28 01/03/2025 4:00 PM EDT Oxygen Saturation 100% 01/03/2025 4:00 PM EDT Inhaled Oxygen Concentration - - Weight 59.9 kg (132 lb) 01/03/2025 11:26 AM EDT Height 172.7 cm (5' 8 ) 01/03/2025 11:26 AM EDT Body Mass Index 20.07 01/03/2025 11:26 AM EDT Plan of Treatment Upcoming Encounters Date Type Department Care Team (Late st Contact Info) Description 01/16/2025 1:45 PM EDT Office Visit [facility] Dermatology [address] [place] [address] Nelida Ayala MD [address] [place] [phone] 02/02/2025 1:30 PM EDT Office Visit [facility] Lung Nodule [address] [phone] Alfred Mckeon MD [address] [place] [phone] 02/02/2025 2:00 PM EDT Office Visit [facility] Lung Nodule [address] [phone] Yoav Portillo Lung Nod Pul 02/22/2025 2:00 PM EST Office Visit [facility] Neurology [address] [place] [phone] Percy Kapoor MD [address] [phone] 03/20/2025 12:00 PM EST Office Visit [facility] Cardiac Subspecialty [address] [phone] Charlie Barry MD [address] [place] [phone] 07/12/2025 10:30 AM EDT Appointment [facility] Pulmonary Function Lab [address] [facility] [address] 5[address] Floor Room [address] [place] [phone] 07/12/2025 11:30 AM EDT Office Visit [facility] Pulmonary [address] [place] [phone] Daysi Fnik MD [address] [facility] [address] Health Maintenance Due Date Last Done Comments [...] (#1) 2024 12/16/2023, 2022 Diabetes: Hemoglobin A1C 12/19/2025 025, 07/27/2024, 05/26/2024, Additional history exists High [...] this topic Medical Devices Implanted Type Area Counter Hand Device Identifier Shelf Expiration Date Model / Serial / Lot Hydro Generation Supervisor-D [employer] Icd-10/02/2022 Implanted:09/05 (Quantity not on file) VIDEO TAPE EDITOR-D ICD Chest [employer] Graft Hemashield Str 10x30 - [id number] Implanted:Qty: 1 on 12/22/2023 at [facility] Graft Right: Axilla GETINGE[employer]ET C[employer]OV[employer]ULAR 09/03/2028 [id number] / [id number] / Impella- 024 Implanted:12/05 (Quantity not on file) Impella Heart Procedures Procedure Name Priority Date/Time Associated Diagnosis Comments ENDOMYOCARDIAL BIOPSY Routine 01/03/2025 12:45 PM EDT Heart transplant recipient (Multi-HCC) CORONARY ANGIOGRAPHY Routine 01/03/2025 12:45 PM EDT Heart transplant recipient (Multi-HCC) TISSUE PATHOLOGY Routine 01/03/2025 11:2 0 AM EDT Heart transplant recipient (Multi-HCC) CBC WITH DIFFERENTIAL Routine 01/03/2025 11:10 AM EDT CMV DNA, QUANTITATIVE, RT-PCR Routine 01/03/2025 11:10 AM EDT TACROLIMUS LEVEL Routine 01/03/2025 11:1 0 AM EDT PROTIME-INR Routine 01/03/2025 11:10 AM EDT MAGNESIUM Routine 01/03/2025 11:10 AM EDT COMPREHENSIVE METABOLIC PANEL Routine 01/03/2025 11:10 AM EDT CBC W/DIFF Routine 01/03/2025 11:[address] HIGH RESOLUTION CHEST WO CONTRAST Routine 12/28/2024 10:46 AM EDT Tracheal stenosis Pulmonary sarcoidosis (Multi-HCC) XR CHEST 2 VIEWS Routine 12/19/2024 12:4 4 PM EDT Heart transplant recipient (Multi-HCC) HEMOGLOBIN A1C STAT 12/19/2024 12:15 PM EDT Heart transplant recipient (Multi-HCC) Type 2 diabetes mellitus with other specified complication, unspecified whether local company intermodal truck driver insulin use (Multi-HCC) PSA TOTAL, SCREEN STAT [...] mellitus with other specified complication, unspecified whether local company intermodal truck driver insulin use (Multi-HCC) DOBUTAMINE STRESS ECHO (81972) Routine 12/19/2024 9:38 AM EDT Heart transplant [...] 2:15 PM EDT Heart transplant recipient (Multi-HCC) HCV RNA, QUANTITATIVE, PCR (MONITORING) Routine 01/26/2024 10:30 AM EDT ALBUMIN, URINE, RANDOM (INCLUDING CREATININE) Routine 11/26/2023 1:50 PM EDT from Last 3 Months or Most Recently Relevant to Health Maintenance Results * CORONARY ANGIOGRAPHY, ENDOMYOCARDIAL BIOPSY (01/03/2025 12:45 PM EDT) 01/03/2025 12:1 1 PM EDT Narrative [facility]O - 01/03/2025 5:21 PM EDT [facility] Adult Catheterization Lab [address] [place] [phone] Right and Left Diagnostic Cardiac Catheterization and Biopsy Report Patient: Margarita Avila, Referring Jose Angel Nunez Physician: Jose Angel Nunez Attending Luisa Richter Physician: : 1955 Primary Care Physician: Procedure 01/03/2025 Fellow: Selene Carrillo, Date: Izaiah Room: INDICATIONS: Status post heart transplant. PRESENTATION: This patient underwent prior heart transplant and is presenting for endomyocardial biopsy to detect histologic rejection of the heart and ISHLT rejection grade and right heart catheterization to determine potential hemodynamic compromise and to aid in the clinical interpretation of the biopsy result to help guide theraputic decision-making. Birthdate: 1955. Age: Patient is 69 year(s) old. Gender: Male. Height: 172.7 cm. 68 in. Weight: 60.9 kg. 134.3 lb. Body mass index: 20.4 kg/m^2. Body surface area: 1.7 m^2. Location: Catheterization laboratory. Study status: Cardiac cath: elective. Consent: The risks, benefits, and alternatives to the procedure and sedation were explained to the patient and informed consent was obtained. HISTORY: Non-ischemic cardiomyopathy. Known mitral regurgitation. Functional status: Prior history of congestive heart failure. Procedures performed: - Right femoral sheath side-port angiography. - Left coronary angiography. - Right coronary angiography. - Endomyocardial biopsy. - Right heart catheterization. SUMMARY: 1) Normal coronary angiogram 2) RHC and EMBx waas performed through the right IJ vein CORONARY ARTERIES: The coronary circulation is right dominant. Left main: The vessel is normal. LAD: The vessel is normal. Left circumflex: The vessel is normal. Right coronary: The vessel is normal. PROCEDURE DETAIL: 1. Initial setup. The patient was brought to the laboratory in a fasting state. A baseline ECG was recorded. Surface ECG leads, blood pressure measurements, and pulse oximetric signals were monitored. 2. Skin preparation. The planned puncture sites were prepped and draped in the usual sterile manner. 3. Right internal jugular vein access. A 7F Lolly MS 7Fr 11cm sheath was advanced into the vessel. 4. Right femoral sheath side-port angiography, for closure evaluation, under fluoroscopic guidance. Contrast was injected into the sheath side port. 5. Right femoral artery access. A 6FR Lolly MS 6Fr 11cm sheath was advanced into the vessel. 6. Selective left coronary angiography. A FL4 6F EXPO Catheter Femoral Left Curve FL4 6F 100cm catheter was introduced. Contrast was injected. Images were obtained using multiple projections. 7. Selective right coronary angiography. A FR4 6F EXPO Catheter Femoral Right Curve FR4 6F 100cm catheter was introduced. Contrast was injected. Images were obtained using multiple projections. 8. Endomyocardial biopsy. 9. Right heart catheterization was performed. A 7F SWANGANZ INTRO/SHEATH NONLASER catheter was introduced. 10. Right femoral artery hemostasis. The sheath was sutured in place. 11. Right internal jugular vein hemostasis. The 7F Lolly MS 7Fr 11cm sheath was removed. Manual compression was applied. HEMODYNAMICS: Circulatory function: + + + + Stage description Condition1:Room Air Condition1:Room Air Rest - Narayan Rest - + + + + O2 uptake, Hgb: 11.3 g/dl hemoglobin + + + + Cardiac index 3.39 L/(min-m^2) + + + + RA pressure a/v 0/1 (-1) (m) + + + + RV pressure s/d, 20/-3, -1 ed + + + + PA pressure s/d /6 (11) (m) + + + + PA wedge a/v (m) 09/09 (2) + + + + Arterial pressure 103/56 (75) s/d (m) + + + + Aortic pressure -11/-12 (-11) s/d (m) + + + + PVR 123 dyn-sec/cm5 + + + + PVRI 212 dyn-sec-m^2/cm5 + + + + Saturations: + + + Stage description Condition1:Room Air Rest - + + + Saturation, RA 72% + + + Saturation, PA/MPA 69% + + + Saturation, aorta 93% + + + Pressure Reference Table AO / FA Reference Table Coronary Reference Table +----+ +----+ + Site Normal Ranges Site Normal Ranges +----+ +----+ + *AO* 100-140/60-90 *LV* 100-140/3-12 +----+ +----+ + *FA* 100-140/60-90 *RA* 0-8 mean +----+ +----+ + *RV* 15-30/0-8 +----+ +----+ + *PA* 15-30/4-12 +----+ +----+ + *PW* 1-10 mean +----+ +----+ + CORONARY ANATOMY: STUDY COMPLETION: The patient tolerated the procedure well. Fluoroscopy time: 4.4 min. Cine time: 0.5 min. Total time: 4.9 min. Fluoroscopy dose: 6.2 cGy. Total radiation dose: 6.2 cGy. Administered medications: Aspirin , 324 mg , PO. Midazolam , for a total dose of 1.5 mg , IV. Fentanyl , for a total dose of 75 mcg , IV. Contrast: Cath Isovue-300 (500ml) 50 ml (total dose). Attestation: As the attending physician, I was present throughout the entire procedure and performed or directly supervised all manipulations during the procedure. Prepared and electronically signed by Luisa Richter 01/03/2025 17:21 Procedure Note Luisa Yang MD - 01/03/2025 [facility] Adult Catheterization Lab [address] [place] [address] Right and Left Diagnostic Cardiac Catheterization and Biopsy Report Patient: Margarita Avila, Caridad Jose Angel Nunez Physician: Jose Angel Nunez Attending Luisa Richter Physician: : 1955 Primary Care Physician: Procedure 01/03/2025 Fellow: Selene Carrillo, Date: Izaiah Room: INDICATIONS: Status post heart transplant. PRESENTATION: This patient underwent prior heart transplant and is presenting for endomyocardial biopsy to detect histologic rejection of the heart and ISHLT rejection grade and right heart catheterization to determine potential hemodynamic compromise and to aid in the clinical interpretation of the biopsy result to help guide theraputic decision-making. Birthdate: 1955. Age: Patient is 69 year(s) old. Gender: Male. Height: 172.7 cm. 68 in. Weight: 60.9 kg. 134.3 lb. Body mass index: 20.4 kg/m^2. Body surface area: 1.7 m^2. Location: Catheterization laboratory. Study status: Cardiac cath: elective. Consent: The risks, benefits, and alternatives to the procedure and sedation were explained to the patient and informed consent was obtained. HISTORY: Non-ischemic cardiomyopathy. Known mitral regurgitation. Functional status: Prior history of congestive heart failure. Procedures performed: - Right femoral sheath side-port angiography. - Left coronary angiography. - Right coronary angiography. - Endomyocardial biopsy. - Right heart catheterization. SUMMARY: 1) Normal coronary angiogram 2) RHC and EMBx waas performed through the right IJ vein CORONARY ARTERIES: The coronary circulation is right dominant. Left main: The vessel is normal. LAD: The vessel is normal. Left circumflex: The vessel is normal. Right coronary: The vessel is normal. PROCEDURE DETAIL: 1. Initial setup. The patient was brought to the laboratory in a fasting state. A baseline ECG was recorded. Surface ECG leads, blood pressure measurements, and pulse oximetric signals were monitored. 2. Skin preparation. The planned puncture sites were prepped and draped in the usual sterile manner. 3. Right internal jugular vein access. A 7F Lolly MS 7Fr 11cm sheath was advanced into the vessel. 4. Right femoral sheath side-port angiography, for closure evaluation, under fluoroscopic guidance. Contrast was injected into the sheath side port. 5. Right femoral artery access. A 6FR Lolly MS 6Fr 11cm sheath was advanced into the vessel. 6. Selective left coronary angiography. A FL4 6F EXPO Catheter Femoral Left Curve FL4 6F 100cm catheter was introduced. Contrast was injected. Images were obtained using multiple projections. 7. Selective right coronary angiography. A FR4 6F EXPO Catheter Femoral Right Curve FR4 6F 100cm catheter was introduced. Contrast was injected. Images were obtained using multiple projections. 8. Endomyocardial biopsy. 9. Right heart catheterization was performed. A 7F SWANGANZ INTRO/SHEATH NONLASER catheter was introduced. 10. Right femoral artery hemostasis. The sheath was sutured in place. 11. Right internal jugular vein hemostasis. The 7F Lolly MS 7Fr 11cm sheath was removed. Manual compression was applied. HEMODYNAMICS: Circulatory function: + + + + Stage description Condition1:Room Air Condition1:Room Air Rest - Narayan Rest - + + + + O2 uptake, Hgb: 11.3 g/dl hemoglobin + + + + Cardiac index 3.39 L/(min-m^2) + + + + RA pressure a/v 0 (-1) (m) + + + + RV pressure s/d, 20/-3, -1 ed + + + + PA pressure s/d 20/6 (11) (m) + + + + PA wedge a/v (m) 09/09 (2) + + + + Arterial pressure 103/56 (75) s/d (m) + + + + Aortic pressure -/- (-11) s/d (m) + + + + PVR 123 dyn-sec/cm5 + + + + PVRI 212 dyn-sec-m^2/cm5 + + + + Saturations: + + + Stage description Condition1:Room Air Rest - + + + Saturation, RA 72% + + + Saturation, PA/MPA 69% + + + Saturation, aorta 93% + + + Pressure Reference Table AO / FA Reference Table Coronary Reference Table +----+ +----+ + Site Normal Ranges Site Normal Ranges +----+ +----+ + *AO* 100-140/60-90 *LV* 100-140/3-12 +----+ +----+ + *FA* 100-140/60-90 *RA* 0-8 mean +----+ +----+ + *RV* 15-30/0-8 +----+ +----+ + *PA* 15-30/4-12 +----+ +----+ + *PW* 1-10 mean +----+ +----+ + CORONARY ANATOMY: STUDY COMPLETION: The patient tolerated the procedure well. Fluoroscopy time: 4.4 min. Cine time: 0.5 min. Total time: 4.9 min. Fluoroscopy dose: 6.2 cGy. Total radiation dose: 6.2 cGy. Administered medications: Aspirin , 324 mg , PO. Midazolam , for a total dose of 1.5 mg , IV. Fentanyl , for a total dose of 75 mcg , IV. Contrast: Cath Isovue-300 (500ml) 50 ml (total dose). Attestation: As the attending physician, I was present throughout the entire procedure and performed or directly supervised all manipulations during the procedure. Prepared and electronically signed by Luisa Richter 01/03/2025 17:21 us Jose Angel Nunez NP CV CARDIAC CATH PROCEDURES Maral l Result C HEMO MERGE HEMO * Tissue Pathology (01/03/2025 11:20 AM EDT) Case Report Surgical Pathology Case: [id number] Authorizing Provider: Jose Angel Nunez NP Collected: 01/03/2025 1120 Ordering Location: [facility] Received: 01/03/2025 1320 [employer]iac [employer] Pathologist: Ramos Kay MD Specimen: Heart, R ventricle Bx post Tx 01/04/2025 4:36 PM EDT [facility] ANATOMIC PATHOLOGY LAB Final Diagnosis A. 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 - There is no evidence of antibody mediated rejection, pAMR 0. Note: There are adequate fragments of myocardium for evaluation. Immunohistochemical stain for C4d and CD68 are negative. Trichrome stain shows subendocardial fibrosis. Cardiac transplant team (Jose Angel Nunez) notified via tiger text at 11:15AM Controls show appropriate reactivity. 01/04/2025 4:36 PM EDT [facility] ANATOMIC PATHOLOGY LAB at 1636 EDT Gross Description A. Received in formalin, labeled with the patient's name, Avila Avila, Matthew Donny , medical record number, and R ventricle bx post tx , are three fragments of tomlin-red soft tissue, 0.4 x 0.2 x 0.2 cm, 0.3 x 0.3 x 0.2 cm, and 0.3 x 0.2 x 0.2 cm. The specimen is submitted in toto in A1. Grossed by DANY Wong PA([facility])RICARDO on 01/03/25 at 1:26 PM. 01/04/2025 4:36 PM EDT [facility] ANATOMIC PATHOLOGY LAB Disclaimer The interpretation o f this case included the use of immunohistochemistry or special stains. These tests have not been cleared or approved by the U.S. Food and Drug Administration. The FDA has determined that such clearance or approval is not necessary. These tests are used for clinical purposes and should not be regarded as investigational or for research. This laboratory is certified to perform high complexity testing under the Clinical Laboratory Improvement Amendments of 1988. Controls for immunohistochemical, in situ hybridization and/or special stain studies used in the evaluation of this case show appropriate reactivity. 01/04/2025 4:36 PM EDT [facility] ANATOMIC PATHOLOGY LAB Tissue Heart structure / Unknown 01/03/2025 11:20 AM EDT 01/03/2025 1:20 PM EDT us Jose Angel Nunez NP LAB PATHOLOGY ORDERABLES Final Result [facility] ANATOMIC PATHOLOGY LAB [address] [place] [address], * (ABNORMAL) CBC w/ Differential (01/03/2025 11:10 AM EDT) [facility] Signature WBC 2.7(L) 4.0 - 11.0 K/uL 01/03/2025 11:41 AM EDT [facility] RBC 3.82(L) 4.20 - 5.90 M/uL 01/03/2025 11:41 AM EDT [facility] Hemoglobin 11.3(L) 13.0 - 17.5 g/dL 01/03/2025 11:41 AM EDT [facility] Hematocrit 33.5(L) 37.0 - 53.0 % 01/03/2025 11:41 AM EDT [facility] MCV 87.7 80.0 - 100.0 fL 01/03/2025 11:41 AM EDT [facility] MCH 29.6 26.0 - 34.0 pg 01/03/2025 11:41 AM EDT [facility] MCHC 33.7 31.0 - 37.0 g/dL 01/03/2025 11:41 AM EDT [facility] RDW-CV 12.8 11.5 - 14.5 % 01/03/2025 11:41 AM EDT [facility] RDW-SD 40.4 35.0 - 51.0 fL 01/03/2025 11:41 AM EDT [facility] Platelets 122(L) 150 - 400 K/uL 01/03/2025 11:41 AM EDT [facility] MPV 9.7 9.1 - 12.4 fL 01/03/2025 11:41 AM EDT [facility] Neutrophil % 65.5 % 01/03/2025 11:41 AM EDT [facility] Lymphocyte % 20.0 % 01/03/2025 11:41 AM EDT [facility] Monocytes % 5.6 % 01/03/2025 11:41 AM EDT [facility] Eosinophils % 5.2 % 01/03/2025 11:41 AM EDT [facility] Basophils % 0.4 % 01/03/2025 11:41 AM EDT [facility] Immature Granulocytes % 3.3 % 01/03/2025 11:41 AM EDT [facility] NRBC % 0.0 0.0 - 0.0 % 01/03/2025 11:41 AM EDT [facility] Neutrophils Absolute 1.77 1.50 - 7.95 K/uL 01/03/2025 11:41 AM EDT [facility] Lymphocytes Absolute 0.54(L) 0.70 - 4.00 K/uL 01/03/2025 11:41 AM EDT [facility] Monocytes Absolute 0.15(L) 0.38 - 0.83 K/uL 01/03/2025 11:41 AM EDT [facility] Eosinophils Absolute 0.14 0.00 - 0.50 K/uL 01/03/2025 11:41 AM EDT [facility] Basophils Absolute 0.01 0.00 - 0.22 K/uL 01/03/2025 11:41 AM EDT [facility] Immature Granulocytes Absolute 0.09 0.00 - 0.10 K/uL 01/03/2025 11:41 AM EDT [facility] NRBC Absolute 0.00 0.00 - 2.00 K/uL 01/03/2025 11:41 AM T [facility] Blood Venous blood specimen / Unknown Venipuncture / Unknown 01/03/2025 11:10 AM EDT 01/03/2025 11:34 AM EDT us Zeina Maradiaga MD LAB BLOOD ORDERABLES Final Result Performing Organization Address City/State/[facility] Co de Phone Number [facility] [address] [place] [address], * Tacrolimus level (01/03/2025 11:10 AM EDT) Only the most recent of3 resultswithin the time period is included. [facility] Tacrolimus, LC-MS/MS 7.5 3.0 - 20.0 ng/mL 01/03/2025 3:15 PM EDT [facility] Comment:Performed by LC-MS/M S. Reference intervals are based on trough collection. Optimal therapeutic ranges depend on time post-transplant, dosing regimen, organ type, and concomitant immunosuppression therapy. Results should be interpreted in conjunction with physical signs/symptoms of rejection/toxicity. This test was developed and its performance characteristics determined by [facility]. It has not been cleared or approved by the FDA. The laboratory is regulated under CLIA as qualified to perform high-complexity testing. This test is used for clinical purposes. It should not be regarded as investigational or for research. Time of last dose 3:15 PM EDT [facility] Date of last dose 3:15 PM EDT [facility] Blood Venous blood specimen / Unknown Venipuncture / Unknown 01/03/2025 11:10 AM EDT 01/03/2025 11:34 AM EDT us Zeina Maradiaga MD LAB BLOOD ORDERABLES Final Result Performing Organization Address City/[facility] Co de Phone Number [facility] [address] [place] [address], [place] * (ABNORMAL) CMV Quant DNA, RT-PCR, BLOOD (01/03/2025 11:10 AM EDT) Only the most recent of4 resultswithin the time period is included. CMV DNA Viral Load 130(H) Not Detected IU/mL [facility] 2 01/03/2025 4:19 PM EDT [facility] Comment:DETECTED CMV DNA Viral Load, log 2.11(H) Not Detected log IU/mL 01/03/2025 4:19 PM EDT [facility] CMV DNA Viral Load, Interp Detected( A) Not Detected [facility] ALINI M 01/03/2025 4:19 PM EDT [facility] Blood Venous blood specimen / Unknown Venipuncture / Unknown 01/03/2025 11:10 AM EDT 01/03/2025 11:34 AM EDT Narrative [facility] - 01/03/2025 4:19 PM EDT This test was performed using the Coates Al[employer] m CMV DNA assay, performed on the Coates ALinity m instrument Lena Cortes NP LAB BLOOD ORDERABLES Fin al Result Performing Organization Address City/[facility]/ZIP Co de Phone Number [facility] [address] [place] [address], [place] * Protime/INR (01/03/2025 11:10 AM EDT) Pathologist [facility] Protime 12.0 9.7 - 14.0 seconds 01/03/2025 11:55 AM EDT [facility] INR 1.04 See Comment 01/03/2025 11:55 AM EDT [facility] Comment: NORMAL PATIENTS NOT ON ANTICOAGULANTS: INR: 0.9-1.3 RECOMMENDED INR WITH WARFARIN/COUMADIN THERAPY: INR: 2.00-3.00 Deep vein thrombosis Atrial Fibrillation Tissue Prosthetic Valve Stroke Prevention INR:2.50-3.50 Mechanical Prosthetic Valve and Recurrent Systemic Embolism Blood Venous blood specimen / Unknown Venipuncture / Unknown 01/03/2025 11:10 AM EDT 01/03/2025 11:34 AM EDT Zeina Maradiaga MD LAB BLOOD ORDERABLES Final Result Performing Organization Address City/[facility] Co de Phone Number [facility] [address] [place] [address], * Magnesium (01/03/2025 11:10 AM EDT) Only the most recent of3 resultswithin the time period is included. Pathologist [facility] Magnesium 1.7 1.6 - 2.6 mg/dL 01/03/2025 12:13 PM EDT [facility] Blood Venous blood specimen / Unknown Venipuncture / Unknown 01/03/2025 11:10 AM EDT 01/03/2025 11:33 AM EDT Zeina Maradiaga MD LAB BLOOD ORDERABLES Final Result [facility] [address] [place] [address], * (ABNORMAL) Comprehensive metabolic panel (01/03/2025 11:10 AM EDT) Only the most recent of3 resultswithin the time period is included. Pathologist [facility] Sodium 145 135 - 146 mmol/L 01/03/2025 12:13 PM EDT [facility] Potassium 4.4 3.6 - 5.2 mmol/L 01/03/2025 12:13 PM EDT [facility] Comment:Specimen hemolyzed r esult may be falsely increased up to 1.0 mmol/L. Chloride 106 98 - 110 mmol/L 01/03/2025 12:13 PM EDT [facility] CO2 (Bicarbonate) 24 20 - 32 mmol/L 01/03/2025 12:13 PM EDT [facility] Anion Gap 15(H) 3 - 14 mmol/L 01/03/2025 12:13 PM EDT [facility] BUN 17 6 - 24 mg/dL 01/03/2025 12:13 PM EDT [facility] Creatinine 0.98 0.55 - 1.30 mg/dL 01/03/2025 12:13 PM T [facility] eGFRcr 83 >=60 mL/min/1.7 3m*2 01/03/2025 12:13 PM T [facility] Comment:Calculated using CKD -EPI 2020 creatinine equation. Glucose 133(H) 70 - 99 mg/dL 01/03/2025 12:13 PM EDT [facility] Fasting? Yes [facility] [place] INFINITY 01/03/2025 12:13 PM EDT [facility] Calcium 9.9 8.5 - 10.5 mg/dL 01/03/2025 12:13 PM EDT [facility] AST 24 6 - 42 U/L 01/03/2025 12:13 PM EDT [facility] ALT 9 0 - 55 U/L 01/03/2025 12:13 PM EDT [facility] Alkaline phosphatase 54 30 - 130 U/L 01/03/2025 12:13 PM T [facility] Protein, total 7.0 6.0 - 8.4 g/dL 01/03/2025 12:13 PM T [facility] Albumin 4.6 3.2 - 5.0 g/dL 01/03/2025 12:13 PM EDT [facility] Bilirubin, total 0.5 0.2 - 1.2 mg/dL 01/03/2025 12:13 PM [facility] Blood Venous blood specimen / Unknown Venipuncture / Unknown 01/03/2025 11:10 AM EDT 01/03/2025 11:33 AM EDT us Zeina Maradiaga MD LAB BLOOD ORDERABLES Final Result 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 APPROVED BY STAFF RADIOLOGIST: Chitr Galdamez 12/29/2024 9:08 AM EDT Daysi Fikn MD IM CT PROCEDURES Final Re sult * XR CHEST 2 VIEWS (12/19/2024 12:44 PM EDT) Anatomical Region Laterality Modality Chest Computed Radiogr aphy 12/19/2024 1:13 PM EDT Impressions 12/19/2024 1:16 PM EDT No acute cardiopulmonary abnormality. APPROVED BY STAFF RADIOLOGIST: DENISHA MCKEON 12/19/2024 1:16 PM EDT Narrative 12/19/2024 1:16 PM EDT NAME: MATTHEW AVILA : 1955 AGE: 69 years GENDER: Male ORD PHYS: BRIDGER DAVID LOCATION: [facility] 12/19/2024 12:44 PM EDT IMG36 (XR CHEST 2 VIEWS) [id number] REASON FOR STUDY: cardiac transplantation TECHNIQUE: PA and lateral views of the chest Comparison: 10/03/2024 FINDINGS: The heart and sternal wires are unchanged. There is no pneumothorax or congestion or focal consolidation or pleural effusion. No new mediastinal widening. No acute bony changes. [place] overlie the upper lateral right hemithorax as previously. Procedure Note Denisha Mckeon MD - 12/19/2024 NAME: MATTHEW DOOLEYS : 1955 AGE: 69 years GENDER: Male ORD PHYS: BRIDGER DAVID LOCATION: [facility] 12/19/2024 12:44 PM EDT IMG36 (XR CHEST 2 VIEWS) [id number] REASON FOR STUDY: cardiac transplantation TECHNIQUE: PA and lateral views of the chest Comparison: 10/03/2024 FINDINGS: The heart and sternal wires are unchanged. There is nopneumothorax or congestion or focal consolidation or pleural effusion. Nonew mediastinal widening. No acute bony changes. [place] overlie the upperlateral right hemithorax as previously. IMPRESSION: No acute cardiopulmonary abnormality. APPROVED BY STAFF RADIOLOGIST: DENISHA MCKEON 12/19/2024 1:16 PM EDT Bridger Hernandez MD IMG XR PROCEDURES Final Result * (ABNORMAL) Cystatin C with eGFR (12/19/2024 12:15 PM EDT) Only the most recent of2 resultswithin the time period is included. Pathologist [facility] Cystatin C 1.20(H) 0.72 - 1.16 mg/L [facility] 1 eGFRcys 59(L) >59 mL/min/1.73 [facility] 1 Blood Venous blood specimen / Unknown 12/19/2024 12:15 PM EDT 12/19/2024 Narrative [facility] - 12/20/2024 6:45 AM EDT Performed at: 01 - [facility] [id number] Wage Adjuster: Iram Zambrano MD, Phone: [phone] Bridger Hernandez MD LAB BLOOD ORDERABLES Final Resu lt Performing Organization Address City/State/[facility] Co de Phone Number [facility] [address] [place] [address], [facility] 1 * PSA Total, Screen (Male patients only) (12/19/2024 12:15 PM EDT) Pathologist [facility] PSA TOTAL 2.7 0.0 - 4.0 ng/mL [facility] 1 Comment: [place] ECLIA methodology. According to the [place] [employer], Serum PSA should decrease and [...] 7:45 AM EDT Performed at: 01 - [facility] [id number] Wage Adjuster: Iram Zambrano MD, Phone: [phone] us Bridger Hernandez MD LAB BLOOD ORDERABLES Final Resu lt [facility] [address] [place] [address], [facility] 1 * (ABNORMAL) CBC and differential (12/19/2024 12:15 PM EDT) Only the most recent of2 resultswithin the time period is included. WBC 3.2(L) 4.0 - 11.0 K/uL [facility] [...] - 12/19/2024 3:15 PM EDT Performed at: [address] [place] [id number] Wage Adjuster: Jim Henning [facility], Phone: [phone] Bridger Hernandez MD LAB BLOOD ORDERABLES Final Resu lt Performing Organization Address [facility] de Phone Number [facility] [address] [place] [address], [facility] 1 * Uric Acid (12/19/2024 12:15 PM EDT) Only the most recent of2 resultswithin the time period is included. [facility] Uric Acid 5.2 2.6 - 8.0 mg/dL [facility] 1 Comment: Although the reference interval for men extends up to 8.0 mg/dL, patients with gout may benefit from uric acid levels <6.0 mg/dL. Blood Venous blood specimen / Unknown 12/19/2024 12:15 PM EDT 12/19/2024 Narrative [facility] - 12/19/2024 3:15 PM EDT Performed at: [address] [place] [id number] Wage Adjuster: Jim Henning [facility], Phone: [phone] us Bridger Hernandez MD LAB BLOOD ORDERABLES Final Resu lt Performing Organization Address [facility] Co de Phone Number [facility] [address] [place] [address], [facility] 1 * Phosphorus (12/19/2024 12:15 PM EDT) Only the most recent of2 resultswithin the time period is included. Phosphorus 3.9 2.4 - 4.9 mg/dL [facility] 1 Blood Venous blood specimen / Unknown 12/19/2024 12:15 PM EDT 12/19/2024 Narrative [facility] - 12/19/2024 3:15 PM EDT Performed at: [address] [place], [place] [id number] Wage Adjuster: Jim Henning [facility], Phone: [phone] us Bridger Hernandez MD LAB BLOOD ORDERABLES Final Resu lt Performing Organization Address [facility]/ZIP Co de Phone Number [facility] [address] [place] [address], [facility] 1 * (ABNORMAL) Lactate dehydrogenase (12/19/2024 12:15 PM EDT) Only the most recent of2 resultswithin the time period is included. LDH 369(H) 110 - 250 U/L [facility] 1 Blood Venous blood specimen / Unknown 12/19/2024 12:15 PM EDT 12/19/2024 Narrative [facility] - 12/19/2024 3:15 PM EDT Performed at: [address] [place] [id number] Wage Adjuster: Jim Henning [facility], Phone: [phone] us Bridger Hernandez MD LAB BLOOD ORDERABLES Final Resu lt Performing Organization Address City/[facility]/ZIP Co de Phone Number [facility] [address] [place] [address], [facility] 1 * (ABNORMAL) Hemoglobin A1c (12/19/2024 12:15 PM EDT) HgbA1C 6.5(H) 4.8 - 5.6 % [facility] 1 Comment: Prediabetes: 5.7 - 6.4 Diabetes: >6.4 Glycemic control for adults with diabetes: <7.0 Blood Venous blood specimen / Unknown 12/19/2024 12:15 PM EDT 12/19/2024 Narrative [facility] - 12/20/2024 4:05 AM EDT Performed at: [address] [place] [id number] Wage Adjuster: Iram Zambrano MD, Phone: [phone] us Bridger Hernandez MD LAB BLOOD ORDERABLES Final Resu lt Performing Organization Address City/[facility] Co de Phone Number [facility] [address] [place] [address], [facility] 1 * CK (aka CPK) (12/19/2024 12:15 PM EDT) Only the most recent of2 resultswithin the time period is included. CK Total 41 41 - 331 U/L [facility] 1 Blood Venous blood specimen / Unknown 12/19/2024 12:15 PM EDT 12/19/2024 Narrative [facility] - 12/20/2024 7:45 AM EDT Performed at: [address] [place] [id number] Wage Adjuster: Iram Zambrano MD, Phone: [phone] us Bridger Hernandez MD LAB BLOOD ORDERABLES Final Resu lt Performing Organization Address [facility] Co de Phone Number [facility] [address] [place] [address], [facility] 1 * Hepatic function panel (12/19/2024 12:15 PM EDT) Only the most recent of2 resultswithin the time period is included. Bilirubin, Direct 0.2 0.0 - 0.5 mg/dL [facility] 1 Blood Venous blood specimen / Unknown 12/19/2024 12:15 PM EDT 12/19/2024 Narrative [facility] - 12/19/2024 3:15 PM EDT Performed at: [address] [place] [address] [address], [place] [id number] Wage Adjuster: Jim Henning [facility], Phone: [phone] Bridger Hernandez MD LAB BLOOD ORDERABLES Final Resu lt Performing Organization Address City/[facility] Co de Phone Number [facility] [address] [place] [address], [place] [facility] 1 * (ABNORMAL) Lipid panel (12/19/2024 12:15 PM EDT) Only the most recent of2 resultswithin the time period is included. [facility] Cholesterol 146 100 - 199 mg/dL [facility] [...] - 12/20/2024 6:45 AM EDT Performed at: [address] [id number] Wage Adjuster: Iram Zambrano MD, Phone: [phone] Bridger Hernandez MD LAB BLOOD ORDERABLES Final Resu lt Performing Organization Address City/[facility]/ZIP Co de Phone Number [facility] [address] [place] [address], [place] [facility] 1 * ECG 12 lead [[facility]: Epiphany] Normal (12/19/2024 10:45 AM EDT) 12/19/2024 10:4 5 AM EDT Narrative [facility] STRESS/ECG EPIPHANY CARDIOSERVER - 12/19/2024 5:05 PM EDT [facility] Test Date: 2024-12-19 Pat Name: MATTHEW AVILA Department: [facility] Room: Gender: 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1955 Requested By: BRIDGER HERNANDEZ Order Number: [id number] Reading MD: Lacho Bauer Measurements Intervals [place] Rate: 91 P: 59 UT: 145 QRS: 40 QRSD: 77 T: 24 QT: 339 QTc: 417 Interpretive Statements Sinus rhythm Probable anteroseptal infarct, old Compared to ECG 12/31/2023 07:37:42 Sinus rhythm now more clearly present Electronically Signed On 12-19-2024 17:05:32 EDT by Lacho Bauer us Bridger Henrandez MD ECG ORDERABLES Final Result [facility] STRESS/ECG EPIP[facility] CARDIOSERVER * DOBUTAMINE STRESS ECHO ([id number]) (12/19/2024 9:38 AM EDT) 12/19/2024 8:40 AM EDT Narrative [facility] PACS/REPORTING KRZYSZTOF [facility] - 12/19/2024 11:15 AM EDT Cardiovascular Imaging Hemodynamic Laboratory [address] [place] [address] Stress Echocardiogram Name: MATTHEW TORO Study Date: 12/19/2024 08:40 AM : 1955 Gender: Male Age: 69 yrs Ethnicity: OTHER Patient Location: [facility] Referring Physician: JOSE ANGEL NUNEZ Performed By: Osiel Michelle Ordering Physician: JOSE ANGEL NUNEZ Reason For Study: cardiac transplantation Height: 68 in Weight: 135 lb BSA: 1.7 m2 BP: 120/58 mmHg CPT/Quality/Location Stress Echo (00262). Stress Echo interp & report (93023). Supply - dobutamine. Location performed: Department. The [...] Russ MD - 12/19/2024 Cardi[facility]odynamic[facility]atory [address] [place] [address] StressEchocardiogram Name: MARGARITA AVILA MATTHEW ROBINS Study Date: 508:40 AM : 1955 Gender: Male Age: 69 yrs Ethnicity: OTHER Patient Location: [facility] Referring Physician: JOSE ANGEL NUNEZ Performed By: Osiel Michelle Ordering Physician: JOSE ANGEL NUNEZ Reason For Study: cardiac transplantation Height: 68 in Weight: 135 lb BSA: 1.7 m2 BP:120/58 mmHg CPT/Quality/Location Stress Echo (72821). Stress Echo interp & report (36632). Supply -dobutamine. Location performed: Department. The quality [...] Nunez NP CV ECHO PROCEDURES Final Result [facility] PACS/REPORTING KRZYSZTOF ISCV * ALLOMAP HEART (11/07/2024 2:20 PM EDT) ALLOMAP SCORE - HEART 32 11/09/2024 1:01 AM EDT [facility] 95% CONFIDENCE INTERVAL 95% CI:30.1-3 4.8 11/09/2024 1:01 AM EDT [facility] NEGATIVE PREDICTIVE VALUE 99.0% 11/09/2024 1:01 AM EDT [facility] POSITIVE PREDICTIVE VALUE 2.9% 11/09/2024 1:01 AM EDT [facility] TIME POST TX 0y 10m 12d 11/09/2024 1:01 AM EDT [facility] TEST COMMENTS ([facility]) <None Specified > 11/09/2024 1:01 AM EDT [facility] NOTES ([facility]) See Note 11/09/2024 1:01 AM EDT [facility] Comment: Interpretation of AlloMap score should be made using the information available at the following link: http://www.allomap.com AlloMap testing performed at [facility], [place]. (CLIA No: [id number], CAP No: [id number]) Wage Adjuster: Axel Cartagena M.D. These AlloMap test results are displayed here for your convenience. The pdf AlloMap report is the official report. The following data chamorro on the Results Details page are intentionally left empty as they are not applicable to AlloMap testing: Abnormal Units TX DATE 4 11/09/2024 1:01 AM EDT [facility] ORDER ID [id number] 11/09/2024 1:01 AM EDT [facility] [place] ORDER ID [id number] 11/09/2024 1:01 AM EDT [facility] WP ORDER ID <None Specified > 11/09/2024 1:01 AM EDT [facility] Blood Venous blood specimen / Unknown Venipuncture / Unknown 11/07/2024 2:20 PM EDT 11/07/2024 2:48 PM EDT us Jose Angel Nunez DIVISION SALES MANAGER LAB BLOOD ORDERABLES Final Resu lt [facility] [address] [place] [address] * ALLOSURE HEART (11/07/2024 2:20 PM EDT) ALLOSURE SCORE < 0.04 % 11/09/2024 7:45 PM EDT [facility] TIME POST TX 0y 10m 12d 11/09/2024 7:45 PM EDT [facility] TEST COMMENTS (ASHK) <None Specified> 11/09/2024 7:45 PM EDT [facility] NOTES (ASHK) See Note 11/09/2024 7:45 PM EDT [facility] Comment: INTERPRETATION OF RESULTS Instructions for Interpreting [...] (2)(3) See the HeartCare interpretation guide at [email or web address] W/heartcare for information on HeartCare, AlloSure Heart and [...] more information about AlloSure Heart, please visit [facility]. (1)Nik et al., J Heart Lung Transplant 2023; (2)Nik et al., Am J Transplant 2019; (3)Data on file for patients <15 years old. The AlloSure Heart Donor-Derived Cell-Free DNA Test was developed and its performance characteristics were determined by the [facility]. The test has not been cleared or approved by the U.S. Food and Drug Administration. The laboratory is certified under the Clinical Laboratory Improvement Amendments of 1988 (CLIA '88) and accredited by the College of [employer] (CAP) as qualified to perform high complexity clinical laboratory testing. The contents of this report are confidential and intended solely for use by authorized personnel. AlloSure testing performed at [facility]. [address] [place] [address] (CLIA No: [id number], CAP No: [id number]) Wage Adjuster: Axel Cartagena M.D. [employer] Heart 2024 7:45 PM EDT [employer]) CLIENT SPECIMEN ID <None Specified> 11/09/2024 7:45 PM EDT [facility] [place] DATE 12/28/2023 11/09/2024 7:45 PM EDT [facility] DONOR RELATION Unrelated 11/09/2024 7:45 PM EDT [facility] ORDER ID [id number] 11/09/2024 7:45 PM EDT [facility] CENTER ORDER ID [id number] 11/09/2024 7:45 PM EDT [facility] WP ORDER ID <None Specified> 11/09/2024 7:45 PM EDT [facility] Blood Venous blood specimen / Unknown Venipuncture / Unknown 11/07/2024 2:20 PM EDT 11/07/2024 2:49 PM EDT Jose Angel Nunez DIVISION SALES MANAGER LAB BLOOD ORDERABLES Final Resu lt [facility] [address] [place] [address] * IgG (11/07/2024 2:16 PM EDT) IgG 760 603 - 1,613 mg/dL [facility] 1 Blood Venous blood specimen / Unknown 11/07/2024 2:16 PM EDT 11/07/2024 Narrative [facility] - 11/08/2024 6:15 AM EDT Performed at: [facility] [id number] Wage Adjuster: Iram Zambrano MD, Phone: [phone] Lena Cortes DIVISION SALES MANAGER LAB BLOOD ORDERABLES Fin al Result [facility] [address] [place] [address], [facility] 1 * Hepatitis C Virus RNA, Quantitative, RT-PCR (01/26/2024 10:30 AM EDT) HCV RNA by RT-PCR [facility] 01/27/2024 2:18 PM EDT [facility] Comment:Not Detected HCV RNA Viral Load, log [facility] 01/27/2024 2:18 PM EDT [facility] Comment:Not Detected HCV RNA Viral Load, Interp Not Detected Not Detected [facility] 01/27/2024 2:18 PM EDT [facility] Blood Venous blood specimen / Unknown Venipuncture / Unknown 01/26/2024 10:30 AM EDT 01/26/2024 11:13 AM EDT Narrative [facility] - 01/27/2024 2:18 PM EDT This test was performed using the [employer] m HCV assay, performed on the Parking Panda m instrument. The lower limit of quantification is 12 IU/mL. Chi Barton MD LAB BLOOD ORDERABLES Final Resu lt Performing Organization Address [facility] de Phone Number [facility] [address] [place] [address], * Albumin, Urine, Random (Microalbumin Random, Including Creatinine) (11/26/2023 1:50 PM EDT) Albumin, urine (INT/EXT) <1.2 mg/dL 11/26/2023 2:44 PM EDT [facility] Creatinine, urine, random (INT/EXT) 47.40 24.00 - 392.00 mg/dL 11/26/2023 2:44 PM EDT [facility] Albumin/Creatini ne ratio 11/26/2023 2:44 PM EDT [facility] Comment:Unable to calculate due to below or above Analytical Measurement Range. Urine Urine specimen / Unknown Non-blood Collection / Unknown 11/26/2023 1:50 PM EDT 11/26/2023 1:50 PM EDT Pedro Kline MD LAB URINE ORDERABLES Maral l Result Performing Organization Address [facility] Co de Phone Number [facility] [address] [place] [address], from Last 3 Months or Most Recently Relevant to Health Maintenance Insurance MEDICARE PART A AND B Member Subscriber Plan / Payer (Ef fective 2020-Present) Name:Avila Avila Matthew Donny Member ID:[id number] Relation to Subscriber:Self Name:Avila Avila, Matthew Donny Subscriber ID:[id number] Payer ID:Not on file Group ID:Not on file Type:Medicare Address: [address] HEALTH SAFETY NET MEDICARE PART A AND B HEALTH SAFETY NET Advance Directives Documents on File Type Date Recorded Patient Digital Media Designer Expl anation Advance Directives and Living Will 11/25/2023 Lloyd Ahmadi Health Care Proxy * Full Code (Latest Code Status on File) Date Activated Date Inactivated Comments 11/24/2023 12:16 AM 01/20/2024 1:17 PM Healthcare Agents on File Name Relationship Healthcare Agent Relationship Communication Aleisha Ahmadi Spouse Health Care Agent [email or web address] Lloyd Mandel Son First Alte rnate Health Care Agent Care Teams Wage And Salary Administrator Relationship Specialty Start Date End Date Name, MD Yoandy [address] [place] [address] PCP - General Acid Filler 11/12/23 Glenn Herman MD [address] [place] [address] Referring Physician Cardiology 11/12/23 Edward Handley CPhT [facility] 12/31/23 Jennie Michelle, Nolvia [address] [place] [address] Pharmacist Pharmacy 01/27/24 Bridger Hernandez MD [address] [address] Attending Physician Cardiology 12/19/24
--- OUTSIDE RECORDS SUMMARY | 2025-01-09 12:24 | XMS_ITS | Encounter Summary ---
Author Organization [employer] Address [address] [place] [address] Care Team Providers Care Chocolate Maker Name Role Phone Name, Yoandy LUGO Primary Care Provider [phone] Name, Yoandy LUGO Primary Care Provider [phone] Encounter Details Date Type Department Care Team (Late st Contact Info) Description 03/21/2022 Orders Only [facility] MEDICINE [address] [place] [address] Coby Flores RN Social History Tobacco Use [...] Description 02/20/2025 10:00 AM EST Office Visit [facility] MEDICINE [address] [place] [address] Name, MD Yoandy [address] [place] [address] documented as of this encounter Procedures Procedure Name Priority Date/Time Associated Diagnosis Comments B TYPE NATRIURETIC PEPTIDE (BNP) Routine 06/27/2022 9:53 AM EDT HEPATIC FUNCTION PANEL Routine 06/27/2022 9:53 AM EDT LIPID PANEL, STANDARD Routine 06/27/2022 9:53 AM EDT BASIC METABOLIC PANEL Routine 06/27/2022 9:53 AM EDT documented in this encounter Results * Lipid Panel, Standard (06/27/2022 9:53 AM EDT) Triglycerides 84 mg/dL [facility] Comment:Desirable Triglyceri de: less than 150 mg/dLBorderline High Triglyceride 150-199 mg/dLHigh Triglyceride: 200-499 mg/dLVery High Triglyceride: greater than or equal to 5OO mg/dL Cholesterol 154 mg/dL [facility] Comment:Desirable Cholestero l: less than 200 mg/dLBorderline High Cholesterol: 200-239 mg/dLHigh Cholesterol: greater than 239 mg/dL LDL Cholesterol Calculated 104 mg/dl [facility] Comment:Desirable LDL: less than 100 [...] 9:53 AM EDT 06/27/2022 9:53 AM EDT [facility] External Provider LAB BLO OD ORDERABLES Final Result [facility] [address] [place] [phone] * (ABNORMAL) Basic Metabolic Panel (06/27/2022 9:53 AM EDT) Sodium 143 135 - 145 mmol/L [facility] Potassium 4.6 3.3 - 5.1 mmol/L [facility] Chloride 108 96 - 108 mmol/L [facility] Carbon Dioxide 26 22 - 29 mmol/L [facility] Anion Gap 14 12 - 20 [facility] Urea Nitrogen (BUN) 13 9 - 16 mg/dL [facility] Creatinine, Serum 1.02 0.5 - 1.4 mg/dL [facility] Estimated Glomerular Filt Rate >60 [facility] Comment:NOTE: For -Am erican individuals, multiply the result by 1.210.Chronic Kidney Disease: Estimated GFR < 60 mL/min/1.99q7Lsngmu Kidney Disease: Estimated GFR < 15 mL/min/1.73m2 Glucose 141(H) 60 - 115 mg/dL [facility] Calcium 9.4 8.4 - 10.2 mg/dL [facility] 06/27/2022 9:53 AM EDT 06/27/2022 9:53 AM EDT [facility] External Provider LAB BLO OD ORDERABLES Final Result Performing Organization Address [facility] Co de Phone Number [facility] [address] [place] [phone] * Hepatic Function Panel (06/27/2022 9:53 AM EDT) Bilirubin, Total 1.0 0.0 - 1.0 mg/dL [facility] Bilirubin, Direct 0.3 0.0 - 0.5 mg/dL [facility] Aspartate Amino Transferase 19 5 - 37 U/L [facility] Alanine Aminotransferase 24 0 - 40 U/L [facility] Total Protein 6.7 6.5 - 8.0 g/dL [facility] Albumin Level 4.2 3.5 - 5.0 g/dL [facility] Alkaline Phosphatase 61 39 - 117 U/L [facility] 06/27/2022 9:53 AM EDT 06/27/2022 9:53 AM EDT [facility] External Provider LAB BLO OD ORDERABLES Final Result Performing Organization Address [facility] de Phone Number [facility] [address] [place] [phone] * (ABNORMAL) B Type Natriuretic Peptide (BNP) (06/27/2022 9:53 AM EDT) B Type Natriuretic Peptide 332(H) <100 pg/mL [facility] Comment:For those patients w ho are being treated with Natrecor(nesiritide, recombinant BNP), BNP testing should beperformed at least two hours post treatment in order toensure that only endogenous levels of BNP are detected. 06/27/2022 9:53 AM EDT 06/27/2022 9:53 AM EDT us [facility] External Provider LAB BLO OD ORDERABLES Final Result [facility] [address] [place] [phone] [phone] documented in this encounter Visit Diagnoses Not on filedocumented in this encounter Care Teams Chocolate Maker Relationship Specialty Start Date End Date NameYoandy MD [address] [place] [address] PCP - General Family Medicine 01/18/21 06/04/23 Name, MD Yoandy [address] [place] [address] PCP - General Internal Medicine 10/19/23 [facility] 01/19/24 documented as of this encounter
--- OUTSIDE RECORDS SUMMARY | 2025-01-09 12:24 | XMS_ITS | Encounter Summary ---
Author Organization [facility] Address [address] [facility] [address] [place] [address] Care Team Providers Care Case Picker Name Role Phone Glenn Herman MD Unavailable [phone] Name, Yoandy LUGO Primary Care Provider [phone] Edward Handley rotary shear cutter Unavailable Unavailable Jennie Michelle PharmD Unavailable [phone] Juan Hutchinson MD Unavailable [phone] Encounter Details Date Type Department Care Team (Late st Contact Info) Description 12/29/2023 Lab Requisition [facility] HLA Lab [address] [place] [phone] Pedro Kline MD 800 [facility] [address] [place] [address] Cardiomyopathy, unspecified (Multi-HCC) Social History Tobacco Use [...] Description 01/16/2025 1:45 PM EDT Office Visit [facility] Dermatology [address] [place] [address] Nelida Ayala MD [address] [place] [address] 02/02/2025 1:30 PM EDT Office Visit [facility] Lung Nodule [address] [phone] Alfred Mckeon MD [address] [place] [address] 02/02/2025 2:00 PM EDT Office Visit [facility] Lung Nodule [address] [phone] Yoav Lugo Lung Nod Pul 02/22/2025 2:00 PM EST Office Visit [facility] Neurology [address] [place] [address] Percy Kapoor MD [address] [address] 03/20/2025 12:00 PM EST Office Visit [facility] Cardiac Subspecialty [address] [phone] Charlie Barry MD 800 [place] [address] 07/12/2025 10:30 AM EDT Appointment [facility] Pulmonary Function Lab 800 [facility] [address] 5th Floor Room [address] [place] [address] 07/12/2025 11:30 AM EDT Office Visit [facility]monary [address] [facility] [address] 3rd [place] [address] Daysi Fink MD [address] [place] [address] Intensive Care Unit/[facility]/[place] [address] documented as of this encounter Procedures Procedure Name Priority Date/Time Associated Diagnosis Comments HLA CONSULTATION Routine 12/26/2023 11:5 6 PM EDT Cardiomyopathy, unspecified (Multi-HCC) documented in this encounter Results * HLA Consultation (12/26/2023 11:56 PM EDT) PDF Attached See PDF Document 01/02/2024 12:57 PM EDT [facility] Blood Venous blood specimen / Unknown 12/26/2023 11:56 PM EDT 12/29/2023 10:28 PM EDT us Pedro Kline MD LAB BLOOD ORDERABLES Maral l Result [facility] [address] [place] [address], documented in this encounter Visit Diagnoses Diagnosis Cardiomyopathy, unspecified Cytomegalovirus infection, 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, unspecified cytomegaloviral infection type documented in this encounter Care Teams Case Picker Relationship Specialty Start Date End Date Name, MD Yoandy [address] [place] [address] PCP - General Coating Machine Feeder 11/12/23 Glenn Herman MD [address] [place] [address] Referring Physician Cardiology 11/12/23 Edward Handley CPhT Landscape Manager Pharmacy 12/31/23 Jennie Michelle, PharmD [address] [place] [address] Pharmacist Pharmacy 01/27/24 Juan Hutchinson MD 800 [facility] [address] [place] [phone] Attending Physician Cardiology 12/19/24 documented as of this encounter
--- OUTSIDE RECORDS SUMMARY | 2025-01-09 12:24 | XMS_ITS | Encounter Summary ---
Author Organization [facility] Address 800 [facility] [address] [place] [address] Care Team Providers Care Marketing Development Representative Name Role Phone Glenn Herman MD Unavailable Name, Yoandy LUGO Primary Care Provider Edward Handley protective signal superintendent Unavailable Unavailable Jennie Michelle PharmD Unavailable [phone] Juan Hutchinson MD Unavailable [phone] Encounter Details Date Type Department Care Team (Late st Contact Info) Description 12/25/2023 Lab Requisition [facility] HLA Lab [address] [place] [phone] Pedro Kline MD 800 [facility] [address] [place] [address] Cardiomyopathy, unspecified (Multi-HCC) Social History Tobacco Use [...] Entry Date Author Yes 11/26/2023 11:17 AM Bethnay Padilla RN documented in this encounter Plan of Treatment Upcoming Encounters Date Type Department Care Team (Late st Contact Info) Description 01/16/2025 1:45 PM EDT Office Visit [facility] Dermatology [address] [place] [address] Nelida Ayala MD [address] [place] [address] 02/02/2025 1:30 PM EDT Office Visit [facility] Lung Nodule [address] [phone] Alfred Mckeon MD [address] [place] [address] 02/02/2025 2:00 PM EDT Office Visit [facility] Lung Nodule [address] [address] Yoav Lugo Lung Nod Pul 02/22/2025 2:00 PM EST Office Visit [facility] Neurology [address] [place] [address] Percy Kapoor MD [address] [address] 03/20/2025 12:00 PM EST Office Visit [facility] Cardiac Subspecialty [address] [phone] Charlie Barry MD [address] [place] [address] 07/12/2025 10:30 AM EDT Appointment [facility] Pulmonary Function Lab [address] [facility] [address] 5th Floor Room [address] [place] [address] 07/12/2025 11:30 AM EDT Office Visit [facility] Pulmonary [address] [facility] [address] [address] 3rd [place] [address] Daysi Fink MD [address] [place] [address] Intensive Care Unit/[facility]/[place] [address] documented as of this encounter Procedures Procedure Name Priority Date/Time Associated Diagnosis Comments HLA CONSULTATION Routine 12/25/2023 8:41 AM EDT Cardiomyopathy, unspecified (Multi-HCC) documented in this encounter Results * HLA Consultation (12/25/2023 8:41 AM EDT) PDF Attached See PDF Document 12/26/2023 3:15 PM EDT [facility] Blood Venous blood specimen / Unknown 12/25/2023 8:41 AM EDT 12/25/2023 7:39 PM EDT us Pedro Kline MD LAB BLOOD ORDERABLES Maral l Result [facility] HLA LAB [address] [place] [address], documented in this encounter Visit Diagnoses Diagnosis Cardiomyopathy, unspecified Cytomegalovirus infection, 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, unspecified cytomegaloviral infection type documented in this encounter Care Teams Marketing Development Representative Relationship Specialty Start Date End Date Name, MD Yoandy [address] [place] [address] PCP - General Sous Chef 11/12/23 Glenn Herman MD [address] [place] [address] Referring Physician Cardiology 11/12/23 Edward Handley CPhT Back Wedger [facility] 12/31/23 Jennie Michelle, PharmD [address] [place] [address] Pharmacist Pharmacy 01/27/24 Juan Hutchinson MD [address] [place] [address] [place] [address] Attending Physician Cardiology 12/19/24 documented as of this encounter
--- OUTSIDE RECORDS SUMMARY | 2025-01-09 12:24 | XMS_ITS | Clinical Summary ---
Author Organization [employer] [facility] Address [facility] [place] [phone] Phone Care Team Providers Care Irrigation System Operator Name Role Phone Name, Yoandy LUGO Primary Care Provider [phone] Social History Tobacco Use Types Packs/Day Years [...] VACCINE (#1) 2024 COVID-19 VACCINE (1 - 2024-2 6 season) 2024 RSV VACCINE (1 - 1-dose [...] file Insurance MEDICARE PART A & B [facility] [address] [place] [id number] [place] A [place] [id number] [facility] [address] [place], [place] [id number] MEDICARE PART A & B [facility] FULL Member Subscriber Plan / Payer (Ef fective 2023-Present) Name:Matthew Toro Relation to Subscriber:Self Name:Matthew Toro Payer ID:Not on file Group ID:Not on file Type:Medicaid Address: [address] MEDICARE PART A & B [employer] SAFETY NET FULL MEDICARE PART A & B [facility] SAFETY NET FULL Member Subscriber Plan / Payer (Ef fective 2023-Present) Name:Matthew Toro Relation to Subscriber:Self Name:Avila Margarita Matthew Donny Payer ID:Not on file Group ID:Not on file Type:Medicaid Address[address] [place] [place] [id number] [facility] FULL B Care Teams Irrigation System Operator Relationship Specialty Start Date End Date Name, MD Yoandy [address] [place] [address] PCP - General Internal Medicine 11/02/23 Additional Source Comments The information contained in this document represents components of the legal health record. It is not the complete legal health record.[facility]
--- OUTSIDE RECORDS SUMMARY | 2025-01-09 12:24 | XMS_ITS | Encounter Summary ---
Author Organization [employer] Address [address] [facility] 7t [place] [address] Care Team Providers Care Air Conditioning Manager Name Role Phone Name, Yoandy LUGO Primary Care Provider [phone] Name, Yoandy LUGO Primary Care Provider [phone] Reason for Visit * Reason Onset Date Comments FYI 10/01/2022 Encounter Details Date Type Department Care Team ([facility] st Contact Info) Description 10/01/2022 Telephone [facility] MEDICINE [address] [place], [place] [phone] Name, MD Yoandy [address] [place] [address] FYI Social History Tobacco Use Types Packs/Day [...] 10/01/2022 3:26 PM EDT Tc from spouse [facility] facility that patient during their vacation in [place] had two Heart Attacks and is currently hospitalized since 09/15/2022 at the [facility] documented in this encounter Plan of Treatment Upcoming Encounters Date Type Department Care Team (Late st Contact Info) Description 02/20/2025 10:00 AM EST Office Visit [facility] MEDICINE [address] [place] [address] Name, MD Yoandy [address] [place] [address] documented as of this encounter Visit Diagnoses Not on filedocumented in this encounter Care Teams Air Conditioning Manager Relationship Specialty Start Date End Date Name, MD Yoandy [address] [place] [phone] PCP - General Family Medicine 01/18/21 06/04/23 Name, MD Yoandy [address] [place] [address] PCP - General Internal Medicine 10/19/23 [facility] 01/19/24 documented as of this encounter
--- OUTSIDE RECORDS SUMMARY | 2025-01-09 12:24 | XMS_ITS ---
Author Organization [facility] Address [address] [facility], [address] [place] [address] Care Team Providers Care Economic Geographer Name Role Phone Glenn Herman MD Unavailable NameYoandy MD Primary Care Provider [phone] Edward Handley catalyst manufacturing operator Unavailable Unavailable Jennie Michelle PharmD Unavailable [phone] Juan Hutchinson MD Unavailable Transplant Episode Heart Recipient [facility] ([place], [place]) - MAN Organ Received: Heart Transplanted on 12/28/2023 Marked as Active Follow-up on 12/28/2023 Heart CoordinatorZackery Paulino RN Phone: N/A Fax: N/A Email: N/A [place] Organ Diagnosis Organ Primary Contributory Heart Dilated [...] Role Phone Fax Email Zackery Paulino RN Director Corporate Communications N/A N/A N/A Glenn Herman MD Referring Physician [phone] N/A Izaiah Watt MD Magnetic Prospecting Supervisor [phone] N/A Events Post-Transplant Pre-Transplant Admitted: 11/23/2023 Referred: 11/09/2023 Transplanted: 12/28/2023 Evaluation began: 4 Discharged: 01/14/2024 Committee: 12/21/2023 Center waitlisted: 4 Appointments (12/10/2024 - 02/09/2025) When With Visit Type Description 12/19/2024 Radiology X-Ray Exam Other cytomegal oviral diseases (Multi-HCC); Heart transplant recipient (Multi-HCC) 12/19/2024 Cardiology Dobutamine Stress Echo Other cytomegaloviral diseases (Multi-HCC); Heart transplant recipient (Multi-HCC); Heart transplant rejection (Multi-HCC) 12/19/2024 Cardiology - Vianca Hutchinson Follow Up Specialty Appointment Type 2 diabetes mellitus with other specified complication, unspecified whether chcf insulin use (Multi-HCC) (Primary Dx); Other cytomegaloviral diseases (Multi-HCC); Heart transplant recipient (Multi-HCC); Mixed hyperlipidemia ; Prostate cancer screening; Sarcoidosis 12/28/[address] Chest without Contrast Cytomegalovirus infection, unspecified cytomegaloviral infection type (Multi-HCC); Tracheal stenosis; Pulmonary sarcoidosis (Multi-HCC) 01/16/2025 [facility] - [facility] [place] [facility] New Patient
--- OUTSIDE RECORDS SUMMARY | 2025-01-09 12:24 | XMS_ITS | Clinical Summary ---
Author Organization [employer] Address [address] [facility] 7t [place] [address] Care Team Providers Care External Auditor Name Role Phone Name, Yoandy LUGO Primary Care Provider [phone] Allergies Active Allergy Reactions Criticality Noted Date [...] bedtime. 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 S/p multiple dilations in the past. Able to pass a 7.0 ETT, but no larger. Decreased functional mobility and endurance 11/06 Non-restorable tooth 11/19/2023 History of ND (myocardial infarction) 10/20/2023 Memory problem 10/20/2023 Shortness [...] 's report Asked patient to call his Trimmer Buffing Wheel regarding his increased weight/swelling for further recommendations. Dysphagia 02/08/2023 Positive colorectal cancer screening using Colog uard test 02/04/2023 Overview (11/03/2023): Negative Colonoscopy 06/2023: urgical Pathology Exam - Order: [id number] Component 4 mo ago Case Report Surgicals Case: [id number] Authorizing Provider: Donny Encarnacion Collected: 2023 0843 MD Eugene Ordering Location: [facility] Received: 2023 1011 Pathologist: Shannan [...] IHC, or [place] [address]. Resulting Agency [facility] [...] were answered. Coronary artery disease invo lving seminole coronary artery of seminole heart without angina pectoris 11/14/2022 Overview (11/02/2023): Last Assessment & Plan: - nonobstructive disease - continue medical therapy with aspirin, statin, BB - denies angina Stridor 11/13/2022 Overview (11/02/2023): Last Assessment & Plan: Improved after last dilation in April 2023. Mild stridor noted today in clinic Discussed with his primary streetcar conductor Dr. Sanches and will work to get [...] Ventricular tachycardia, unspecified (CMS/HCC) 0 04/06/2022 Other senior care (current) drug therapy [...] upgraded from dual-chamber to biventricular device at [facility] 03/2022. Follows at [facility] cardi Systolic dysfunction 03/13/2022 History of bradycardia 03/13/2022 Family history of prostate cancer 03/13/2022 Complete heart block (CMS/HCC) 04/06/2020 Overview (11/02/2023): Added automatically from request for surgery [id number] Last Assessment & Plan: History of biventricular pacemaker that was upgraded to SINKER WINDER defibrillator in September. Device interrogated today with [...] call cardiology office as well. 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) use of o ral hypoglycemic drugs [...] DEPARTMENT Provider, Generic External Data 11/24/2024 Telephone [facility] MEDICINE [address] [place] [address] Americo Stiles [place] oct recalls from Last 3 Months Immunizations Immunization [...] with others, in a hotel, in a retirement, living outside on the street, on a [...] Description 02/20/2025 10:00 AM EST Office Visit [facility] MEDICINE [address] [place] [address] Name, MD Yoandy [address] [place] [address] Health Maintenance Due Date Last Done Comments [...] complication, without long-term current use of insulin (CMS/HCC) ALBUMIN, RANDOM URINE W/CREATININE Routine 04/14/2024 11:04 AM EST Type 2 diabetes mellitus with other circulatory complication, without long-term current use of insulin (CMS/HCC) LIPID PANEL, STANDARD Routine 06/27/2022 9:53 AM EDT from Last 3 Months or Most Recently Relevant to Health Maintenance Results * Glucose, Whole Blood (12/30/2024 3:47 PM EDT) Glucose, Whole Blood 105 60 - 115 mg/dL [facility] Comment:METER #: [id number] Testing performed in the Endocrinology Department [address] , [address], [facility]. 12/30/2024 3:47 PM EDT 12/30/2024 4:17 PM EDT Generic External Data Provider LAB BLOOD ORDERAB LES Final Result [facility] [address] [place] [phone] * POCT HGB A1C (07/27/2024 10:59 AM EDT) Hemoglobin A1C 5.7 4.0 - 6.0 % QC Media Lot # [id number] Lot# Expiration Date Blood 07/27/2024 10:5 9 AM EDT us Yoandy Tillman MD POINT OF CARE TEST ENTER/EDIT OR DERABLES Final Result * Albumin, Random Urine W/Creatinine (04/14/2024 11:04 AM EST) Creatinine, Urine 109.08 mg/dL [facility] Microalbumin Urine 6.0 mg/L [facility] Microalbum Creatinine Ratio Ur 5.5 <30 ug/mg cr [facility] Comment:Albumin/Creatinine R atio Reference Ranges: Normal: < 30 ug/mg creatinine Microalbuminuria: 30 - 300 ug/mg creatinineClinical Albuminuria: > 300 ug/mg creatinine Urine (Urine, Random) 04/14/2024 11:04 AM EST 04/14/2024 1:04 PM EST us Yoandy Tillman MD LAB URINE ORDERABLES Final Resul t Performing Organization Address [facility] Co de Phone Number [facility] [address] [place] [address] [phone] * Lipid Panel, Standard (06/27/2022 9:53 AM EDT) Triglycerides 84 mg/dL [facility] Comment:Desirable Triglyceri de: less than 150 mg/dLBorderline High Triglyceride 150-199 mg/dLHigh Triglyceride: 200-499 mg/dLVery High Triglyceride: greater than or equal to 5OO mg/dL Cholesterol 154 mg/dL [facility] Comment:Desirable Cholestero l: less than 200 mg/dLBorderline High Cholesterol: 200-239 mg/dLHigh Cholesterol: greater than 239 mg/dL LDL Cholesterol Calculated 104 mg/dl [facility] Comment:Desirable LDL: less than 100 mg/dLNear Optimal/Above Optimal LDL: 110- 129 mg/dLBorderline High LDL: 130-159 mg/dLHigh LDL: 160-189 mg/dLVery High LDL: greater than or equal to 190 mg/dL HDL Cholesterol 34 mg/dL [facility] Comment:Desirable HDL: great er than 40 mg/dL Note: This HDL assay may give artificially low results in patients with liver disease. 06/27/2022 9:53 AM EDT 06/27/2022 9:53 AM EDT [facility] External Provider LAB BLO OD ORDERABLES Final Result Performing Organization Address City/[facility]/ZIP Co de Phone Number [facility] [address] [place] [address] [phone] from Last 3 Months or Most Recently Relevant to Health Maintenance Insurance MEDICARE [facility] MEDEX CARE [facility] STANDARD Care Teams External Auditor Relationship Specialty Start Date End Date Name, MD Yoandy [address] [place] [phone] PCP - General Internal Medicine 10/19/23 [facility] 01/19/24
--- OUTSIDE RECORDS SUMMARY | 2025-01-09 12:24 | XMS_ITS | Encounter Summary ---
Author Organization [facility] Address [address] [facility] [address] [place] [address] Care Team Providers Care Cancer Program Director Name Role Phone Glenn Herman MD Unavailable [phone] Yoandy Tillman MD Primary Care Provider Edward Handley repeater chief Unavailable Unavailable Jennie Michelle PharmD Unavailable [phone] Juan Hutchinson MD Unavailable [phone] Reason for Visit * Reason Comments Med Change Request Encounter Details Date Type Department Care Team (Late st Contact Info) Description 03/17/2024 Refill [facility] Cardiac Subspecialty [address] [facility] [address] [place] [address] Charlie Barry MD [address] [place] [address] 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) Social History [...] - 03/17/2024 4:02 PM EST Filled at [facility] documented in this encounter Plan of Treatment Upcoming Encounters Date Type Department Care Team (Late st Contact Info) Description 01/16/2025 1:45 PM EDT Office Visit [facility] Dermatology [address] [place] [address] Nelida Ayala MD [address] [place] [address] 02/02/2025 1:30 PM EDT Office Visit [facility] Lung Nodule [address] [phone] Alfred Mckeon MD [address] [place] [address] 02/02/2025 2:00 PM EDT Office Visit [facility] Lung Nodule [address] [address] Yoav Portillo Lung Nod Pul 02/22/2025 2:00 PM EST Office Visit [facility] Neurology [address] [place] [address] Percy Kapoor MD [facility] [address] [place] [address] 03/20/2025 12:00 PM EST Office Visit [facility] Cardiac Subspecialty [address] [facility] [address] [place] [phone] Charlie Barry MD [address] [place] [address] 07/12/2025 10:30 AM EDT Appointment [facility] Pulmonary Function Lab [address] [facility] [facility] 5th Floor Room [address] [place] [phone] 07/12/2025 11:30 AM EDT Office Visit [facility] Pulmonary [address] [facility] 3rd [place] [phone] Daysi Fink MD [address] [place] [address] Intensive Care Unit/[facility] [address] documented as of this encounter Visit Diagnoses Diagnosis Heart replaced by transplant Cytomegalovirus infection, 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, unspecified cytomegaloviral infection type documented in this encounter Care Teams Cancer Program Director Relationship Specialty Start Date End Date Name, MD Yoandy [address] [place] [address] PCP - General It Program Manager 11/12/23 Glenn Herman MD [address] [place] [address] Referring Physician Cardiology 11/12/23 Edward Handley, Juan Analyst Microbiology Lab Pharmacy 12/31/23 Jennie Michelle, PharmD [address] [place] [phone] Pharmacist Pharmacy 01/27/24 Juan Hutchinson MD [address] [place] [address] [place] [address] Attending Physician Cardiology 12/19/24 documented as of this encounter
[2025-01-11 21:43] LABS: CMV DNA Qn PCR NOT DETECTED Log IU/mL (NOT DETECTED)
== END 2025-01-09 10:30 | disposition home or self-care (01) ==
LOC: HO.LABR 10:29
PROVIDERS: Visit Provider Nurse Practitioner Family
DX: B25.9 Cytomegaloviral disease, unspecified (principal)
CPT/HCPCS: 36415; 80053; 85025; 87497

== ENCOUNTER 2025-01-19 10:12 | Outpatient (AMB) | payer MEDICARE, SELFPAY ==
[2025-01-19 10:18] VITALS: BMI 20.7
--- NOTE | 2025-01-19 10:18 | A.OFFVIS_ITS ---
Vital Signs 01/19/25 10:18 Height 5 ft 7 in Weight 132 lb BMI 20.7 Intake Visit Reasons: Type 2 Diabetes, Polyneuropathy Intake Note: Matthew is a 69 year old male who presents to the office today as a new patient visit referred by his PCP Ashely Ashford for Type 2 Diabetes, Polyneuropathy. Pt states his sugars last night was 255 after dinner and his last reported A1c is 6.5%. Pt denies numbness and tingling in his feet. patient has no history of wounds or amputations of the foot and he is not experiencing any nausea,dizziness,headaches,vomitting . Patient reports he has bilateral toe nail fungus. Residential Caregiver Required: Yes Residential Caregiver Services: Residential Caregiver Present Residential Caregiver Name: [id number] Allergies lisinopril Allergy (Mild, Verified 12/30/24 15:35) Swelling Medication List - Last Reconciled 01/19/25 by Tamiko Ceballos DPM aspirin 81 mg PO DAILY blood sugar diagnostic (FreeStyle Lite Strips) As directed calcium carbonate 1,250 mg PO DAILY cholecalciferol (vitamin D3) 25 mcg PO DAILY ciclopirox 8% 1 appl topical BEDTIME 4 weeks FreeStyle Jaswinder 3 Plus Sensor (blood-glucose sensor) every 14 days NS FreeStyle Jaswinder 3 Dundee (blood-glucose,shop mechanic,cont) As directed NS Humalog KwikPen Insulin (insulin lispro) 4 units subcutaneous breakfast, 6 units subcutaneous lunch and 8 units subcutaneous with dinner. NS insulin glargine (Lantus U-100 Insulin) 20 units (0.2 mL) subcut QAM lancets (TRUEplus Lancets) As directed levetiracetam 750 mg PO BID mycophenolate mofetil (CellCept) 750 mg PO BID pantoprazole 40 mg PO DAILY pen needle, diabetic 4 times daily pravastatin 80 mg PO BEDTIME prednisone 10 mg PO DIRECTED sennosides (senna) 8.6 mg PO BEDTIME tacrolimus 6 mg PO BID valganciclovir (Valcyte) 450 mg PO BID HPI Comments Details: The patient is a 69-year-old male with a past medical history as seen below presenting for management of foot care in the context of diabetes mellitus. The patient has a history of diabetes mellitus and he states his most recent blood glucose in the office today was 135. The patient also presents with nail changes, including yellow discoloration and thickening. The patient denies any pain in the nails or toes, but experiences discomfort when the nails are too thick while wearing shoes. He denies any recent pedal injuries. He denies any other pedal concerns. Patient was accompanied by his who assisted in providing a history. [facility] Medical History (Updated 01/19/25 @ 10:53 by Tamiko Ceballos DPM) Varicose veins of both lower extremities Tinea unguium Nail disorder Nail dystrophy Diabetic neuropathy Diabetes Pacemaker Surgical History Hx of heart transplant History of cardiac catheterization (~10/2021) History of cataract surgery Family History Father Diabetes Heart problem Brother Heart attack Social History Alcohol intake: never Patient Tobacco Use Status: Never used Tobacco Review of Systems Const Details: - Neurological: Denies numbness or tingling in the feet. - Dermatological: Denies any current pain in the nails or toes. All systems reviewed & are unremarkable except as noted in HPI and below Physical Exam Vital Signs: BMI result Body Mass Index 20.7 Extrem Other: Bilateral lower extremity focused physical exam: Derm: All 10 toenails noted to be dystrophic, discolored, and elongated with subungual debris. No open lesions abrasions or wounds noted. No hyperkeratotic lesions noted. No ecchymosis or discoloration noted. No clinical signs of infection. Skin supple and turgor within normal limits for age. Vascular: DP/PT pulses mildly palpable. Capillary refill time less than 3 seconds. Temperature gradient warm to warm. Minimal edema noted to the feet bilaterally. Mild varicosities noted. Pedal hair absent. Neuro: Protective sensation is grossly intact to light touch. Protective sensation slightly diminished to monofilament testing. MSK: No pain on palpation to the feet bilaterally. Range of motion of the forefoot hindfoot and ankles within normal limits. No crepitus or fluctuance noted. Shuffling gait noted, nonantalgic and unassisted. No other gross abnormalities noted. Class B and C findings noted. Office Procedures AMB Debridement/Avulsion Podia Details: Debrided toenails times 10 using sterile nail nippers without any incidents. Obtained nail samples to be sent to pathology and microbiology. [id number]-[id number] of Nail 6+ Procedure code (CPT) selection complete Results Reviewed Results Reviewed: Laboratory Tests 12/30/24 01/09/25 16:03 10:47 Random Glucose 147 H Hgb A1c (Clinic) 6.5 H Ordered & Awaiting B/L toenails Pathology and Fungal Culture results. Assessment & Plan Assessment & Plan (1) Type 2 diabetes mellitus with unspecified complications: Code(s): E11.8 - Type 2 diabetes mellitus with unspecified complications Category: Medical (2) Diabetic neuropathy: Code(s): E11.40 - Type 2 diabetes mellitus with diabetic neuropathy, unspecified Category: Medical (3) Tinea unguium: Code(s): B35.1 - Tinea unguium Category: Medical (4) Nail disorder: Code(s): L60.9 - Nail disorder, unspecified Category: Medical (5) Nail dystrophy: Code(s): L60.3 - Nail dystrophy Category: Medical (6) Varicose veins of both lower extremities: Code(s): I83.93 - Asymptomatic varicose veins of bilateral lower extremities Category: Medical Plan Patient was informed and verbally consented to the use of an ambient scribe for clinic note documentation during this visit. I discussed with the patient the presence of nail changes suggestive of onychomycosis and the treatment options available, including the use of topical and oral medication if necessary. I explained the importance of regular nail trimming to prevent complications and the plan to send a nail sample for fungal culture and pathology. We also discussed the need to monitor liver function if oral antifungal treatment is initiated. Discussed the importance of glycemic control in order to prevent adverse effects on organs. - Prescribed ciclopirox to be applied daily, with instructions to file and buff the nail between applications. - Advised patient to monitor his feet daily and to wear supportive shoe gear. Patient is to avoid barefoot walking. - Continue diabetic management and treatment as per PCP. RTC in 9 weeks for routine diabetic nail care. Orders: Orders Surgical Today B35.1 - Tinea unguium, E11.40 - Type 2 diabetes mellitus with diabetic neuropathy, unspecified, L60.3 - Nail dystrophy, L60.9 - Nail disorder, unspecified AMB Diabetic Foot Exam Today B35.1 - Tinea unguium, E11.40 - Type 2 diabetes mellitus with diabetic neuropathy, unspecified, E11.8 - Type 2 diabetes mellitus with unspecified complications, L60.3 - Nail dystrophy, L60.9 - Nail disorder, unspecified AMB Debridement/Avulsion Podiatry Today B35.1 - Tinea unguium, E11.40 - Type 2 diabetes mellitus with diabetic neuropathy, unspecified, E11.8 - Type 2 diabetes mellitus with unspecified complications, L60.3 - Nail dystrophy, L60.9 - Nail disorder, unspecified Fungus Cult Hair/Skin/Nail Today B35.1 - Tinea unguium, L60.3 - Nail dystrophy, L60.9 - Nail disorder, unspecified Medications: New ciclopirox 8% 1 appl topical BEDTIME 6.6 mL 1RF Onychomycosis 4 weeks B35.1 - Tinea unguium, E11.40 - Type 2 diabetes mellitus with diabetic neuropathy, unspecified, E11.8 - Type 2 diabetes mellitus with unspecified complications, L60.3 - Nail dystrophy, L60.9 - Nail disorder, unspecified Coding Level of Care Code New Pt Level 4 (77951) Diagnoses Type 2 diabetes mellitus with unspecified complications E11.8 Diabetic neuropathy E11.40 Tinea unguium B35.1 Nail disorder L60.9 Nail dystrophy L60.3 Varicose veins of both lower extremities I83.93 CPT Codes Skin Debridement - CPT: 88567-Yvtzbdanusi of Nail 6+ ([id number]) Time Spent (min) 60
--- OUTSIDE RECORDS SUMMARY | 2025-01-19 12:26 | XMS_ITS | Encounter Summary ---
Author Organization [facility] Address [address] [facility] [address] [place] [address] Care Team Providers Care Editor City Name Role Phone Glenn Herman MD Unavailable [phone] Name, Yoandy LUGO Primary Care Provider [phone] Edward Handley contract serviceman Unavailable Unavailable Jennie Michelle PharmD Unavailable [phone] Juan Hutchinson MD Unavailable [phone] Encounter Details Date Type Department Care Team (Late st Contact Info) Description 12/25/2023 Lab Requisition [facility] HLA Lab [address] [place] [phone] Pedro Kline MD [address] [facility] [address] [place] [address] Cardiomyopathy, unspecified (Multi-HCC) Social History Tobacco Use [...] place to sleep or slept in a fci (including now)? No 11/26/2023 Sex and Gender [...] Care Team (Late st Contact Info) Description 02/02/2025 1:30 PM EDT Office Visit [facility] Lung Nodule [address] [phone] Alfred Mckeon MD [address] [place] [address] 02/02/2025 2:00 PM EDT Office Visit [facility] Lung Nodule [address] [phone] Yoav Lugo Lung Nod Pul 02/22/2025 2:00 PM EST Office Visit [facility] Neurology [address] [place] [address] Percy Kapoor MD [address] [address] 03/08/2025 1:00 PM EST Office Visit [facility] Dermatology [address] [place] [address] Nelida Ayala MD [address] [place] [address] 03/20/2025 12:00 PM EST Office Visit [facility] Cardiac Subspecialty [address] [phone] Charlie Barry MD [address] [place] [address] 07/12/2025 10:30 AM EDT Appointment [facility] Pulmonary Function Lab [address] [facility] [address] 5th Floor Room [address] [place] [address] 07/12/2025 11:30 AM EDT Office [facility] 3rd [place] [address] Daysi Fink MD [address] [place] [address] Intensive Care Unit/[facility] [address] documented as of this encounter Procedures Procedure Name Priority Date/Time Associated Diagnosis Comments HLA CONSULTATION Routine 12/25/2023 8:41 AM EDT Cardiomyopathy, unspecified (Multi-HCC) documented in this encounter Results * HLA Consultation (12/25/2023 8:41 AM EDT) PDF Attached See PDF Document 12/26/2023 3:15 PM EDT [facility] Blood Venous blood specimen / Unknown 12/25/2023 8:41 AM EDT 12/25/2023 7:39 PM EDT us Pedro Kline MD LAB BLOOD ORDERABLES Maral l Result [facility] HLA LAB [address] [place] [address], documented in this encounter Visit Diagnoses Diagnosis Cardiomyopathy, unspecified Cytomegalovirus infection, 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, unspecified cytomegaloviral infection type documented in this encounter Care Teams Editor City Relationship Specialty Start Date End Date Name, MD Yoandy [address] [place] [address] PCP - General Publicity Person 11/12/23 Glenn Herman MD [address] [place] [address] Referring Physician Cardiology 11/12/23 Edward Handley, contract serviceman Child Care Group Leader Pharmacy 12/31/23 Jennie Michelle, PharmD [address] [place] [address] Pharmacist Pharmacy 01/27/24 Juan Hutchinson MD [address] [facility] [address] [place] [address] Attending Physician Cardiology 12/19/24 documented as of this encounter
--- OUTSIDE RECORDS SUMMARY | 2025-01-19 12:26 | XMS_ITS ---
Author Organization [facility] Address [address] [facility], [address] [place] [address] Care Team Providers Care Cleat Blanker Name Role Phone Glenn Herman MD Unavailable [phone] NameYoandy MD Primary Care Provider [phone] Edward Handley CPhT Unavailable Unavailable Jennie Michelle PharmD Unavailable [phone] Juan Hutchinson MD Unavailable [phone] RxSp Transplant Status:Enrolled (Active) Start date:12/31/2023 Enrollment date:12/31/2023 Enrollment reason:Identified by Other Non-PCP Provider Current support & services provided:Clinical Management, Refill Management, Benefits and PA Management, Adherence Management, Mail Order Management Primary medications:calcium carbonate (Active), cholecalciferol (vitamin D3) (Active), levetiracetam (Active), mycophenolate mofetil (Active), pantoprazole sodium (Active), pravastatin sodium (Active), prednisone (Active), sulfamethoxazole/trimethoprim (Active), tacrolimus (Active) Overview HEART TX 12/28/2023 Case Team Name Relationship Phone Edward Handley CPhT(Responsible Staff) Fraud Investigator Jennie Michelle PharmD Pharmacist [phone] Continued Care and Services Coordination
--- OUTSIDE RECORDS SUMMARY | 2025-01-19 12:26 | XMS_ITS | Encounter Summary ---
Author Organization [facility] Address [address] [facility] [address] [place] [address] Care Team Providers Care Safe And Vault Mechanic Name Role Phone Glenn Herman MD Unavailable [phone] Yoandy Tillman MD Primary Care Provider [phone] Edward Handley customer service representative Unavailable Unavailable Jennie Michelle PharmD Unavailable Juan Hutchinson MD Unavailable [phone] Reason for Visit * Reason Comments Med Change Request Encounter Details Date Type Department Care Team (Late st Contact Info) Description 03/17/2024 Refill [facility] Cardiac Subspecialty [address] [facility] [address] [place] [address] Charlie Barry MD [address] [place] [address] 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) Social History [...] - 03/17/2024 4:02 PM EST Filled at [facility] documented in this encounter Plan of Treatment Upcoming Encounters Date Type Department Care Team (Late st Contact Info) Description 02/02/2025 1:30 PM EDT Office Visit [facility] Lung Nodule [address] [address] Alfred Mckeon MD [address] [place] [address] 02/02/2025 2:00 PM EDT Office Visit [facility] Lung Nodule [address] [address] Yoav Portillo Lung Nod Pul 02/22/2025 2:00 PM EST Office Visit [facility] Neurology [address] [place] [address] Percy Kapoor MD [facility] 800 [place] [address] 03/08/2025 1:00 PM EST Office Visit [facility] Dermatology [address] [place] [address] Nelida Ayala MD [address] [place] [address] 03/20/2025 12:00 PM EST Office Visit [facility] Cardiac Subspecialty [address] [facility] [address] [place] [address] Charlie Baryr MD [address] [place] [address] 07/12/2025 10:30 AM EDT Appointment [facility] Pulmonary Function Lab [address] [facility] 5th Floor Room [address] [place] [phone] 07/12/2025 11:30 AM EDT Office Visit [facility] Pulmonary [address] [facility] 3rd [place] [phone] Daysi Fink MD [address] [place] [address] Intensive Care Unit/[employer] [address] documented as of this encounter Visit Diagnoses Diagnosis Heart replaced by transplant Cytomegalovirus infection, 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, unspecified cytomegaloviral infection type documented in this encounter Care Teams Safe And Vault Mechanic Relationship Specialty Start Date End Date Name, MD Yoandy [address] [place] [address] PCP - General Geothermal Field Technician 11/12/23 Glenn Herman MD [address] [place] [address] Referring Physician Cardiology 11/12/23 Edward Handley, Juan Remote Sensing Program Manager Pharmacy 12/31/23 Jennie Michelle, PharmD [address] [place] [address] Pharmacist Pharmacy 01/27/24 Juan Hutchinson MD [address] [place] [address] [place] [address] Attending Physician Cardiology 12/19/24 documented as of this encounter
--- OUTSIDE RECORDS SUMMARY | 2025-01-19 12:26 | XMS_ITS | Encounter Summary ---
Author Organization [facility] Address [address] [facility] [address] [place] [address] Care Team Providers Care Mother'S Helper Name Role Phone Glenn Herman MD Unavailable [phone] Name, Yoandy LUGO Primary Care Provider Edward Handley tenter feeder Unavailable Unavailable Jennie Michelle PharmD Unavailable Juan Hutchinson MD Unavailable [phone] Encounter Details Date Type Department Care Team (Late st Contact Info) Description 01/02/2025 Orders Only [facility] Infectious Disease [address] [facility] 3rd [place] [address] Lena Cortes, AURICULOTHERAPIST [address] [place] [phone] Social History Tobacco Use Types Packs/Day Years [...] Description 02/02/2025 1:30 PM EDT Office Visit [facility] Lung Nodule [address] [phone] Alfred Mckeon MD [address] [place] [address] 02/02/2025 2:00 PM EDT Office Visit [facility] Lung Nodule [address] [address] Yoav Lugo Lung Nod Pul 02/22/2025 2:00 PM EST Office Visit [facility] Neurology [address] [place] [address] Percy Kapoor MD [address] [address] 03/08/2025 1:00 PM EST Office Visit [facility] Dermatology [address] [place] [address] Nelida Ayala MD [address] [place] [address] 03/20/2025 12:00 PM EST Office Visit [facility] Cardiac Subspecialty [address] [phone] Charlie Barry MD 800 [place] [address] 07/12/2025 10:30 AM EDT Appointment [facility] Pulmonary Function Lab 800 [facility] [address] 5th Floor Room 511 [place] [phone] 07/12/2025 11:30 AM EDT Office Visit [facility] Pulmonary [address] [facility] [address] 3rd [place] [phone] Daysi Fink MD [address] [facility] Intensive Care Unit/[facility] [address] documented as of this encounter Visit Diagnoses Not on filedocumented in this encounter Care Teams Mother'S Helper Relationship Specialty Start Date End Date Name, MD Yoandy [address] [place] [address] PCP - General Crusher Screen Repairer 11/12/23 Glenn Herman MD [address] [place] [address] Referring Physician Cardiology 11/12/23 Edward Handley CPhT Farmworker [facility] 12/31/23 Jennie Michelle, PharmD [address] [place] [address] Pharmacist Pharmacy 01/27/24 Juan Hutchinson MD 800 [facility] [address] [place] [address] Attending Physician Cardiology 12/19/24 documented as of this encounter
--- OUTSIDE RECORDS SUMMARY | 2025-01-19 12:26 | XMS_ITS | Encounter Summary ---
Author Organization [facility] [employer] Address [address] [facility] 7t [place] [address] Care Team Providers Care Automobile Mechanic Name Role Phone Name, Yoandy LUGO Primary Care Provider [phone] Name, Yoandy LUGO Primary Care Provider [phone] Reason for Visit * Reason Onset Date Comments FYI 10/01/2022 Encounter Details Date Type Department Care Team ([facility] st Contact Info) Description 10/01/2022 Telephone [facility] [address] [place], [place] [phone] Name, MD Yoandy [address] [place] [address] FYI Social History Tobacco Use Types Packs/Day [...] 10/01/2022 3:26 PM EDT Tc from spouse [facility] facility that patient during their vacation in [place] had two Heart Attacks and is currently hospitalized since 09/15/2022 at the [facility] documented in this encounter Plan of Treatment Upcoming Encounters Date Type Department Care Team (Late st Contact Info) Description 02/20/2025 10:00 AM EST Office Visit [facility] [address] [place] [address] Name, MD Yoandy [address] [place] [address] documented as of this encounter Visit Diagnoses Not on filedocumented in this encounter Care Teams Automobile Mechanic Relationship Specialty Start Date End Date Name, MD Yoandy [address] [place] [address] PCP - General Family Medicine 01/18/21 06/04/23 Name, MD Yoandy [address] [place] [address] PCP - General Internal Medicine 10/19/23 [facility] 01/19/24 documented as of this encounter
--- OUTSIDE RECORDS SUMMARY | 2025-01-19 12:26 | XMS_ITS | Clinical Summary ---
Author Organization [facility] Address [address] [facility] [address] [place] [address] Care Team Providers Care Construction And Maintenance Inspector Name Role Phone Glenn Herman MD Unavailable [phone] NameYoandy MD Primary Care Provider [phone] Edward Handley business development officer Unavailable Unavailable Jennie Michelle PharmD Unavailable [phone] Bridger Hernandez MD Unavailable [phone] Allergies Active Allergy Reactions Criticality Noted Date Comments Lisinopril Swelling Medium 11/24/2023 Pt states that his nose swells to more than twice its normal size when he takes Lisinopril, and that he feels congested when this happens. He states that he does not experience swelling in or around his mouth or throat and does not experience difficulty breathing. Medications alcohol swabs pads, medicatedIndi cations:Heart transplant recipient Swab prior to testing and insulin administration as directed 300 each 1 04/04/20 24 4:11 PM EST 024 Active amoxicillin (Amoxil) 500 mg capsule Take 2,000 mg by mouth 1 (one) time if needed (dentist). 024 Active insulin lispro (HumaLOG) 100 unit/mL injectionIndi cations:Heart transplant recipient Inject 6 Units under the skin before breakfast AND 12 Units before lunch AND 12 Units before evening meal. 15 mL 1 06/07/19 25 5:38 PM EST 024 Active Additional Information Patient taking differently: Inject 5 Units under the skin before breakfast AND 6 Units before lunch AND 6 Units before evening meal., Reported on 01/03/2025 insulin glargine (Lantus Solostar U-100 Insulin) 100 unit/mL (3 mL) injection Inject 30 units under the skin every evening. 15 mL 7 09/22/19 25 5:39 PM EDT 025 Active Additional Information Patient taking differently: 22 UnitssubcutaneousEvery morning, Takes 22mg every am, Reason: taking 22 units every am, Reported on 01/03/2025 insulin lispro (HumaLOG KwikPen Insulin) 100 unit/mL injection Inject 6 units under the skin with breakfast, 12 units with lunch and 12 units with dinner. max 30 units/24 hours 30 mL 3 01/13/20 3:21 PM EDT 025 Active Additional Information Patient not taking.Reported on 12/19/2024 pen needle, diabetic (BD Ultra-Fine Mini Pen Needle) 31 gauge x 3/16 needleIndicat ions:Heart transplant recipient Use with insulin pen as directed 100 each 2 11/18/19 3:45 PM EDT 025 Active fluticasone (Flonase) 50 mcg/actuation nasal sprayIndicati ons:Chronic cough Administer 1 spray into each nostril once daily. Shake gently. Before first use, prime pump. After use, clean tip and replace cap. 16 g 3 01/13/20 3:21 PM EDT 025 2024 Active tacrolimus (Prograf) 5 mg capsuleIndica tions:Heart transplant recipient Take 1 capsule (5 mg) by mouth twice daily. 60 capsule 11 01/13/20 3:21 PM EDT 025 2025 Active tacrolimus (Prograf) 1 mg capsuleIndica tions:Heart transplant recipient Take 1 capsule (1 mg) by mouth twice daily. 60 capsule 11 01/13/20 3:21 PM EDT 025 2025 Active famotidine (Pepcid) 20 mg tabletIndicat ions:Heart transplant recipient Take 1 tablet (20 mg) by mouth before evening meal. 30 tablet 2 01/13/20 3:21 PM EDT 025 2024 Active cholecalcifer ol, vitamin D3, (Vitamin D-3) 25 MCG (1000 UT) tabletIndicat ions:Heart transplant recipient Take 1 tablet (1,000 Units) by mouth once daily. 30 tablet 11/18/19 3:45 PM EDT 025 2025 Active aspirin 81 mg chewable tabletIndicat ions:Heart transplant recipient Chew 1 tablet (81 mg) once daily. 30 tablet 11/18/19 3:45 PM EDT 025 2025 Active predniSONE (Deltasone) 5 mg tabletIndicat ions:Heart transplant recipient Take 1 tablet (5 mg) by mouth once daily. 30 tablet 5 01/13/20 3:21 PM EDT 025 2025 Active pantoprazole (ProtoNix) 40 mg EC tabletIndicat ions:Heart transplant recipient Take 1 tablet (40 mg) by mouth before breakfast. Do not crush, chew, or split. 30 tablet 01/13/20 3:21 PM EDT 025 2025 Active sulfamethoxaz ole-trimethop rim (Bactrim DS) 800-160 mg tabletIndicat ions:Heart transplant recipient Take 1 tablet by mouth once daily. 30 tablet 12/15/19 4:35 PM EDT Active levETIRAcetam (Keppra) 750 mg tabletIndicat ions:Heart transplant recipient Take 1 tablet (750 mg) by mouth twice daily. 60 tablet 2 01/13/20 3:21 PM EDT 025 2024 Active mycophenolate (Cellcept) 250 mg capsuleIndica tions:Heart transplant recipient Take 1 capsule (250 mg) by mouth twice daily. 60 capsule 11 01/13/20 3:21 PM EDT 025 2025 Active mycophenolate (Cellcept) 500 mg tabletIndicat ions:Heart transplant recipient Take 1 tablet (500 mg) by mouth twice daily. Take in addition to 250mg cap, total dose 750mg twice daily. 60 tablet 11 01/13/20 25 3:21 PM EDT 025 2025 Active pravastatin (Pravachol) 80 mg tabletIndicat ions:Heart transplant recipient Take 1 tablet (80 mg) by mouth once daily. 30 tablet 11 01/13/20 25 3:21 PM EDT 025 2025 Active bisacodyl (Dulcolax) 5 mg EC tablet Take 5 mg by mouth if needed each day for constipation. Do not crush, chew, or split. Ac tive valGANciclovi r (Valcyte) 450 mg tabletIndicat ions:Cytomega lovirus (CMV) viremia Take 1 tablet (450 mg) by mouth twice daily. Do not crush or chew. 30 tablet 1 01/13/20 25 3:21 PM EDT 025 2024 Active calcium carbonate 500 mg calcium (1,250 mg) tabletIndicat ions:Heart transplant recipient Take 1 tablet (1,250 mg) by mouth with breakfast and with evening meal. 180 tablet 3 01/13/20 25 3:21 PM EDT 025 2025 Active calcium carbonate 500 mg calcium (1,250 mg) tabletIndicat ions:Heart transplant recipient Take 1 tablet (1,250 mg) by mouth with breakfast and with evening meal. 180 tablet 3 10/21/19 25 4:43 PM EDT 024 2024 Discontin ued(Reord er) valGANciclovi r (Valcyte) 450 mg tabletIndicat ions:Cytomega lovirus (CMV) viremia Take 1 tablet (450 mg) by mouth once daily. Do not crush or chew. 30 tablet 1 025 2024 Discontin ued(Reord er) dextromethorp nelson-guaifenes in (Robitussin DM) 10-100 mg/5 mL syrupIndicati ons:Chronic cough Take 5 mL by mouth if needed in the morning, at noon, and at bedtime for cough for up to 10 days. 118 mL 025 2024 Active Problems Problem Noted Date Diagnosed Date [...] 's report Asked patient to call his Lead Housekeeper regarding his increased weight/swelling for further recommendations. Last Assessment & Plan: reports he's up a few pounds from his baseline weight, worsening leg swelling over the last few days. Compliant with Torsemide - taking full dose per 's report Asked patient to call his Lead Housekeeper regarding his increased weight/swelling for further recommendations. Ventricular tachycardia 04/06/2022 11/0 08/2023 Overview (11/26/2023): Last Assessment & Plan: Prior VT arrest in September. ICD in situ. On low-dose beta-alis. No obstructive CAD on cardiac catheterization in September. Last Assessment & Plan: Prior VT arrest in September. ICD in situ. On low-dose beta-alis. No obstructive CAD on cardiac catheterization in September. Encounters Date Type Department Care Team Description 01/18/2025 Telephone [facility] Infectious Disease [address] [facility] [address] [place] [address] Lena Cortes NP 01/10/2025 Refill [facility] Cardiology [address] [facility] [address] [place] [address] Pedro Kline MD Heart transplant recipient 01/03/2025 10:30 AM EDT - 01/03/2025 12:30 PM EDT Surgery [facility] Cardiac Reefer Engineer [address] [place] [address] Luisa Yang MD Coronary angiography [32010 (CPT )] 01/03/2025 10:17 AM EDT - 01/03/2025 4:56 PM EDT Hospital Encounter [facility] Cardiac Reefer Engineer [address] [place] [address] Luisa Yang MD Other cytomegaloviral diseases (Multi-HCC) (Primary Dx); Heart transplant recipient (Multi-HCC) Discharge Disposition: Home or self care 01/03/2025 Travel 01/02/2025 Orders Only [facility] Infectious Disease [address] [facility] [address] [place] [address] Lena Cortes NP 12/28/2024 11:30 AM EDT Office Visit [facility] Pulmonary [address] [phone] Daysi Fink MD Chronic cough (Primary Dx); Pulmonary sarcoidosis (Multi-HCC); 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); Cardiac sarcoidosis (HHS-HCC); Dyspnea and respiratory abnormality 12/28/2024 10:16 AM EDT - 12/28/2024 11:59 PM EDT Hospital Encounter [facility] Imaging [address] [place] [address] Cytomegalovirus infection, unspecified cytomegaloviral infection type (Multi-HCC); Tracheal stenosis; Pulmonary sarcoidosis (Multi-HCC) Discharge Disposition: Home or self care 12/28/2024 Travel 12/26/2024 Orders Only [facility] Infectious Disease [address] [phone] Lena Cortes, JOSSY Cytomegalovirus (CMV) viremia (Multi-HCC) 12/20/2024 Results Follow-Up [facility] Infectious Disease [address] [address] Lena Cortes NP 12/19/2024 11:40 AM EDT - 12/19/2024 11:59 PM EDT Hospital Encounter [facility] Radiology [address] [place] [address] Other cytomegaloviral diseases (Multi-HCC); Heart transplant recipient (Multi-HCC) Discharge Disposition: Home or self care 12/19/2024 11:00 AM EDT Office Visit [facility] Cardiac Subspecialty [address] [address] Bridger Hernandez MD Type 2 diabetes mellitus with other specified complication, unspecified whether [facility] insulin use (Multi-HCC) (Primary Dx); Other cytomegaloviral diseases (Multi-HCC); Heart transplant recipient (Multi-HCC); Mixed hyperlipidemia ; Prostate cancer screening; Sarcoidosis 12/19/2024 7:36 AM EDT - 12/19/2024 11:39 AM EDT Hospital Encounter [facility] Cardiac Echo [address] [facility] [address] [place] [phone] Other cytomegaloviral diseases (Multi-HCC); Heart transplant recipient (Multi-HCC); Heart transplant rejection (Multi-HCC) Discharge Disposition: Home or self care 12/19/2024 Telephone [facility] Cardiac Subspecialty [address] [phone] Kailyn Hess Appointment; Follow-up 12/19/2024 Travel 12/14/2024 Orders Only [facility] Infectious Disease [address] [address] Lena Cortes NP Heart transplant recipient (Multi-HCC) (Primary Dx); Other cytomegaloviral diseases (Multi-HCC) 12/13/2024 Refill [facility] Infectious Disease [address] [address] Lena Cortes NP Other cytomegaloviral diseases (Multi-HCC) 12/13/2024 Refill [facility] Cardiac Subspecialty [address] [phone] Jose Angel Nunez NP Heart transplant recipient (Multi-HCC) 12/13/2024 Refill [facility] Cardiology [address] [facility] [address] [place] [address] Izaiah Martinez MD Heart transplant recipient (Multi-HCC) 12/13/2024 Refill [facility] Cardiology [address] [place] [phone] Pedro Kline MD Heart transplant recipient (Multi-HCC) 12/13/2024 Refill [facility] Cardiac Subspecialty [address] [phone] Sharon Savage NP Heart transplant recipient (Multi-HCC) 12/02/2024 Telephone [facility] Patient Access [address] [place] [address] , Barrera-Chi 11/21/2024 Telephone [facility] Cardiac Subspecialty [address] [phone] Kailyn Hess Appointment 11/16/2024 Telephone [facility] Cardiac Subspecialty [address] [phone] Kailyn Hess Appointment 11/15/2024 Refill [facility] Cardiology [address] [facility] [address] [place] [address] Pedro Kline MD Heart transplant recipient (Multi-HCC) 11/08/2024 Results Follow-Up [facility] Infectious Disease [address] [phone] Lena Cortes NP 11/07/2024 1:00 PM EDT Office Visit [facility] Infectious Disease [address] [phone] Chi Barton MD Other cytomegaloviral diseases (Multi-HCC) (Primary Dx); Immunosuppressed status (Multi-HCC); Heart transplant recipient (Multi-HCC); Preventative health care; Other fatigue; Upper airway cough syndrome 11/07/2024 12:15 PM EDT Office Visit [facility] Cardiac Subspecialty [address] [phone] Jose Angel Nunez NP Heart transplant recipient (Multi-HCC) (Primary Dx); Essential hypertension, benign ; Mixed hyperlipidemia ; Type 2 diabetes mellitus with other specified complication, unspecified whether terminal make up operator insulin use (Multi-HCC); Subglottic stenosis; Sarcoidosis; Pulmonary nodules; Other cytomegaloviral diseases (Multi-HCC); Observed seizure-like activity (Multi-HCC) 11/07/2024 Travel 10/25/2024 Telephone [facility] Infectious Disease [address] [phone] Lena Cortes NP 10/25/2024 Telephone [facility] Infectious Disease [address] [place] [address] Chi Barton MD req labs orders 10/24/2024 Telephone [facility] Infectious Disease [address] [facility] [address] [place] [address] Lena Cortes, AFTERSCHOOL BABYSITTER from Last 3 Months Immunizations Immunization Administration [...] Vaccine Formula 12+ (Deferred: Not available from supervisor maintenance and custodians - Per pharmacy vaccine is out of [...] place to sleep or slept in a halfway (including now)? No 11/26/2023 Sex and Gender [...] Description 02/02/2025 1:30 PM EDT Office Visit [facility] Lung Nodule [address] [facility] 4th [place] [address] Alfred Mckeon MD [address] [place] [address] 02/02/2025 2:00 PM EDT Office Visit [facility] Lung Nodule [address] [facility] [address] [place] [phone] Yoav Portillo Lung Nod Pul 02/22/2025 2:00 PM EST Office Visit [facility] Neurology [address] [place] [phone] Percy Kapoor MD [facility] [address] [place] [address] 03/08/2025 1:00 PM EST Office Visit [facility] Dermatology [address] [place] [address] Nelida Ayala MD [address] [place] [address] 03/20/2025 12:00 PM EST Office Visit [facility] Cardiac Subspecialty [address] [facility] [address] [place] [phone] Charlie Barry MD [address] [place] [address] 07/12/2025 10:30 AM EDT Appointment [facility] Pulmonary Function Lab [address] [facility] 5th Floor Room [address] [place] [phone] 07/12/2025 11:30 AM EDT Office Visit [facility] Pulmonary [address] [facility] [address] [place] [address] Daysi Fink MD [address] [place] [address] Intensive Care Unit/[facility] [address] Health Maintenance Due Date Last Done Comments CT Colonography 1955 FIT 1955 FOBT 1955 Sigmoidoscopy 1955 Diabetes: Retinopathy Screening 1955 Diabetes: Foot Exam 06/18/1965 Medicare Annual Wellness (AWV) 06/04/2021 Hepatitis B Vaccines (2 of 3 - 19+ 3-dose series) 12/24/2023 11/26/2023 Zoster Vaccines (2 of 2) 01/21/2024 11/26/2023 Depression Screening 04/06/2024 Diabetes: Urine Protein Screening 11/25/2024 11/26/2023, 01/12/2023, 01/12/2023 COVID-19 Vaccine ( season) 2024 02/05/2024, 02/25/2022, [...] this topic Medical Devices Implanted Type Area Qa Auditor Device Identifier Shelf Expiration Date Model / Serial / Lot Terrestrial Ecologist-D [employer] Icd-10/02/2022 Implanted:09/05 (Quantity not on file) MECHANICAL ENGINEERING SPECIALIST-D ICD Chest [employer] Graft Hemashield Str 10x30 - [id number] Implanted:Qty: 1 on 12/22/2023 at [facility] Graft Right: Axilla GETINGE/MAQUET CARDIOVASCULAR 09/03/2028 [id number] / [id number] / Impella- 024 Implanted:12/05 (Quantity not on [...] mellitus with other specified complication, unspecified whether terminal make up operator insulin use (Multi-HCC) PSA TOTAL, SCREEN STAT [...] [facility] insulin use (Multi-HCC) DOBUTAMINE STRESS ECHO (34244) Routine 12/19/2024 9:38 AM EDT Heart transplant [...] EDT) 01/03/2025 12:1 1 PM EDT Narrative [facility] HEMO MERGE HEMO - 01/03/2025 5:21 PM EDT [facility] Adult Catheterization Lab [address] [place] [address] Right and Left Diagnostic Cardiac Catheterization and Biopsy Report Patient: Margarita Avila, Referring Jose Angel Nunez Physician: Jose Angel Nunez Attending Luisa Richter Physician: : 1955 Primary Care Physician: Procedure 01/03/2025 Fellow: Selene Carrillo, Date: [place] Room: INDICATIONS: Status post heart transplant. PRESENTATION: [...] + + + PA wedge a/v (m) 6/6 (2) + + + + Arterial pressure [...] Procedure Note Luisa Yang MD - 01/03/2025 [facility] Adult Catheterization Lab [address] [place] [address] Right and Left Diagnostic Cardiac Catheterization and Biopsy Report Patient: Margarita Avila, Referring Jose Angel Nunez Physician: Jose Angel Nunez Attending Luisa Richter Physician: : 1955 Primary Care Physician: Procedure 01/03/2025 Fellow: Kory Carrillomiki Claritza, Date: I[place] Room: INDICATIONS: Status post heart [...] + + + PA wedge a/v (m) 6/6 (2) + + + + Arterial pressure [...] CV CARDIAC CATH PROCEDURES Maral l Result [facility] HEMO MERGE HEMO * Tissue Pathology (01/03/2025 11:20 AM EDT) Case Report Surgical Pathology Case: [id number] Authorizing Provider: Jose Angel Nunez NP Collected: 01/03/2025 1120 Ordering Location: [facility] Received: 01/03/2025 1320 Cardiac Reefer Engineer Pathologist: Ramos Kay MD Specimen: Heart, R ventricle Bx post Tx 01/04/2025 4:36 PM EDT [facility] Final Diagnosis A. Heart, [...] show appropriate reactivity. 01/04/2025 4:36 PM EDT [facility] at 1636 EDT Gross [...] toto in A1. Grossed by DANY Wong PA([facility])CM on 01/03/25 at 1:26 PM. 01/04/2025 4:36 PM EDT [facility] Disclaimer The interpretation o [...] show appropriate reactivity. 01/04/2025 4:36 PM EDT [facility] Tissue Heart structure / Unknown 01/03/2025 11:20 AM EDT 01/03/2025 1:20 PM EDT Jose Angel Nunez NP LAB PATHOLOGY ORDERABLES Final Result [facility] [address] [place] [address], * (ABNORMAL) CBC w/ Differential (01/03/2025 11:10 AM EDT) WBC 2.7(L) 4.0 - 11.0 K/uL 01/03/2025 11:41 AM EDT [facility] RBC 3.82(L) 4.20 - 5.90 M/uL 01/03/2025 11:41 AM EDT [facility] Hemoglobin 11.3(L) 13.0 - 17.5 g/dL 01/03/2025 11:41 AM EDT [facility] Hematocrit 33.5(L) 37.0 - 53.0 % 01/03/2025 11:41 AM EDT [facility] MCV 87.7 80.0 - 100.0 fL 01/03/2025 11:41 AM EDT [facility] MCH 29.6 26.0 - 34.0 pg 01/03/2025 11:41 AM [facility] MCHC 33.7 31.0 - 37.0 g/dL 01/03/2025 11:41 AM [facility] RDW-CV 12.8 11.5 - 14.5 % 01/03/2025 11:41 AM [facility] RDW-SD 40.4 35.0 - 51.0 fL 01/03/2025 11:41 AM [facility] Platelets 122(L) 150 - 400 K/uL 01/03/2025 11:41 AM [facility] MPV 9.7 9.1 - 12.4 fL 01/03/2025 11:41 AM [facility] Neutrophil % 65.5 % 01/03/2025 11:41 AM [facility] Lymphocyte % 20.0 % 01/03/2025 11:41 AM [facility] Monocytes % 5.6 % 01/03/2025 11:41 AM [facility] Eosinophils % 5.2 % 01/03/2025 11:41 AM [facility] Basophils % 0.4 % 01/03/2025 11:41 AM [facility] Immature Granulocytes % 3.3 % 01/03/2025 11:41 AM [facility] NRBC % 0.0 0.0 - 0.0 % 01/03/2025 11:41 AM [facility] Neutrophils Absolute 1.77 1.50 - 7.95 K/uL 01/03/2025 11:41 AM [facility] Lymphocytes Absolute 0.54(L) 0.70 - 4.00 K/uL 01/03/2025 11:41 AM [facility] Monocytes Absolute 0.15(L) 0.38 - 0.83 K/uL 01/03/2025 11:41 AM [facility] Eosinophils Absolute 0.14 0.00 - 0.50 K/uL 01/03/2025 11:41 AM [facility] Basophils Absolute 0.01 0.00 - 0.22 K/uL 01/03/2025 11:41 AM [facility] Immature Granulocytes Absolute 0.09 0.00 - 0.10 K/uL 01/03/2025 11:41 AM EDT [facility] NRBC Absolute 0.00 0.00 - 2.00 K/uL 01/03/2025 11:41 AM EDT [facility] Blood Venous blood specimen / Unknown Venipuncture / Unknown 01/03/2025 11:10 AM EDT 01/03/2025 11:34 AM EDT Zeina Maradiaga MD LAB BLOOD ORDERABLES Final Result Performing Organization Address [facility] de Phone Number [facility] [address] [place] [address], [place] * Tacrolimus level (01/03/2025 11:10 AM EDT) Only the most recent of3 resultswithin the time period is included. [facility] Tacrolimus, LC-MS/MS 7.5 3.0 - 20.0 ng/mL 01/03/2025 3:15 PM EDT [facility] Comment:Performed by LC-MS/M S. Reference intervals are based on trough collection. Optimal therapeutic ranges depend on time post-transplant, dosing regimen, organ type, and concomitant immunosuppression therapy. Results should be interpreted in conjunction with physical signs/symptoms of rejection/toxicity. This test was developed and its performance characteristics determined by [facility]. It has not been cleared or approved by the FDA. The laboratory is regulated under CLIA as qualified to perform high-complexity testing. This test is used for clinical purposes. It should not be regarded as investigational or for research. Time of last dose 3:15 PM EDT [facility] Date of last dose 025 3:15 PM EDT [facility] Blood Venous blood specimen / Unknown Venipuncture / Unknown 01/03/2025 11:10 AM EDT 01/03/2025 11:34 AM EDT Zeina Maradiaga MD LAB BLOOD ORDERABLES Final Result Performing Organization Address City/[facility] Co de Phone Number [facility] [address] [place] [address], [place] * (ABNORMAL) CMV Quant DNA, RT-PCR, BLOOD (01/03/2025 11:10 AM EDT) Only the most recent of4 resultswithin the time period is included. Pathologist [facility] CMV DNA Viral Load 130(H) Not Detected IU/mL [facility] 2 01/03/2025 4:19 PM EDT [facility] Comment:DETECTED CMV DNA Viral Load, log 2.11(H) Not Detected log IU/mL 01/03/2025 4:19 PM EDT [facility] CMV DNA Viral Load, Interp Detected( A) Not Detected [facility] 01/03/2025 4:19 PM EDT [facility] Blood Venous blood specimen / Unknown Venipuncture / Unknown 01/03/2025 11:10 AM EDT 01/03/2025 11:34 AM EDT Narrative [facility] - 01/03/2025 4:19 PM EDT This test was performed using the [employer] m CMV DNA assay, performed on the [employer] m instrument Lena Cortes NP LAB BLOOD ORDERABLES Fin al Result [facility] [address] [place] [address], * Protime/INR (01/03/2025 11:10 AM EDT) [facility] Protime 12.0 9.7 - 14.0 seconds 01/03/2025 11:55 AM EDT [facility] INR 1.04 See Comment 01/03/2025 11:55 AM EDT [facility] Comment: NORMAL PATIENTS NOT ON ANTICOAGULANTS: INR: 0.9-1.3 RECOMMENDED INR WITH WARFARIN/COUMADIN THERAPY: INR: 2.00-3.00 Deep vein thrombosis Atrial Fibrillation Tissue Prosthetic Valve Stroke Prevention INR:2.50-3.50 Mechanical Prosthetic Valve and Recurrent Systemic Embolism Blood Venous blood specimen / Unknown Venipuncture / Unknown 01/03/2025 11:10 AM EDT 01/03/2025 11:34 AM EDT Zeina Maradiaga MD LAB BLOOD ORDERABLES Final Result [facility] [address] [place] [address], * Magnesium (01/03/2025 11:10 AM EDT) Only the most recent of3 resultswithin the time period is included. Pathologist [facility] Magnesium 1.7 1.6 - 2.6 mg/dL 01/03/2025 12:13 PM EDT [facility] Blood Venous blood specimen / Unknown Venipuncture / Unknown 01/03/2025 11:10 AM EDT 01/03/2025 11:33 AM EDT Zeina Maradiaga MD LAB BLOOD ORDERABLES Final Result Performing Organization Address [facility] de Phone Number [facility] [address] [place] [address], * (ABNORMAL) Comprehensive metabolic panel (01/03/2025 11:10 AM EDT) Only the most recent of3 resultswithin the time period is included. Pathologist [facility] Sodium 145 135 - 146 mmol/L 01/03/2025 12:13 PM EDT [facility] Potassium 4.4 3.6 - 5.2 mmol/L 01/03/2025 12:13 PM EDT [facility] Comment:Specimen hemolyzed r esult may be falsely increased up to 1.0 mmol/L. Chloride 106 98 - 110 mmol/L 01/03/2025 12:13 PM EDT [facility] CO2 (Bicarbonate) 24 20 - 32 mmol/L 01/03/2025 12:13 PM EDT [facility] Anion Gap 15(H) 3 - 14 mmol/L 01/03/2025 12:13 PM EDT [facility] BUN 17 6 - 24 mg/dL 01/03/2025 12:13 PM EDT [facility] Creatinine 0.98 0.55 - 1.30 mg/dL 01/03/2025 12:13 PM EDT [facility] eGFRcr 83 >=60 mL/min/1.7 3m*2 01/03/2025 12:13 PM EDT [facility] Comment:Calculated using CKD -EPI 2020 creatinine equation. Glucose 133(H) 70 - 99 mg/dL 01/03/2025 12:13 PM EDT [facility] Fasting? Yes [facility] INFINITY 01/03/2025 12:13 PM EDT [facility] Calcium 9.9 8.5 - 10.5 mg/dL 01/03/2025 12:13 PM EDT [facility] AST 24 6 - 42 U/L 01/03/2025 12:13 PM EDT [facility] ALT 9 0 - 55 U/L 01/03/2025 12:13 PM EDT [facility] Alkaline phosphatase 54 30 - 130 U/L 01/03/2025 12:13 PM EDT [facility] Protein, total 7.0 6.0 - 8.4 g/dL 01/03/2025 12:13 PM EDT [facility] Albumin 4.6 3.2 - 5.0 g/dL 01/03/2025 12:13 PM EDT [facility] Bilirubin, total 0.5 0.2 - 1.2 mg/dL 01/03/2025 12:13 PM EDT [facility] Blood Venous blood specimen / Unknown Venipuncture / Unknown 01/03/2025 11:10 AM EDT 01/03/2025 11:33 AM EDT us Zeina Maradiaga MD LAB BLOOD ORDERABLES Final Result [facility] [address] [place] [address], [place] * CT HIGH RESOLUTION CHEST WO [...] GENDER: Male ORD PHYS: DAYSI FINK LOCATION: [facility] 12/28/2024 10:46 AM EDT [id number] (CT HIGH RESOLUTION CHEST WO CONTRAST) [id number] Provided History: Pulmonary sarcoidosis and tracheal stenosis [...] GENDER: Male ORD PHYS: DAYSI FINK LOCATION: [facility] 12/28/2024 10:46 AM EDT [id number] (CT HIGH RESOLUTION CHEST WO CONTRAST) [id number] Provided History: Pulmonary sarcoidosis and tracheal stenosis [...] 12/29/2024 9:08 AM EDT Daysi Fink MD IMVianca CT PROCEDURES Final Re sult * XR CHEST 2 VIEWS (12/19/2024 12:44 PM EDT) Anatomical Region Laterality Modality Chest Computed Radiogr aphy 12/19/2024 1:13 PM EDT Impressions 12/19/2024 1:16 PM EDT No acute cardiopulmonary abnormality. APPROVED BY STAFF RADIOLOGIST: DENISHA MCKEON 12/19/2024 1:16 PM EDT Narrative 12/19/2024 1:16 PM EDT NAME: MATTHEW AVILA : 1955 AGE: 69 years GENDER: Male ORD PHYS: BRIDGER DRAKELATI LOCATION: [facility] 12/19/2024 12:44 PM EDT IMG36 (XR CHEST 2 VIEWS) [id number] REASON FOR STUDY: cardiac transplantation TECHNIQUE: PA and lateral views of the chest Comparison: 10/03/2024 FINDINGS: The heart and sternal wires are unchanged. There is no pneumothorax or congestion or focal consolidation or pleural effusion. No new mediastinal widening. No acute bony changes. Wilmont overlie the upper lateral right hemithorax as previously. Procedure Note Denisha Mckeon MD - 12/19/2024 NAME: MATTHEW AVILA : 1955 AGE: 69 years GENDER: Male ORD PHYS: BRIDGER DRAKELATI LOCATION: [facility] 12/19/2024 12:44 PM EDT IMG36 (XR CHEST 2 VIEWS) [id number] REASON FOR STUDY: cardiac transplantation TECHNIQUE: PA and lateral views of the chest Comparison: 10/03/2024 FINDINGS: The heart and sternal wires are unchanged. There is nopneumothorax or congestion or focal consolidation or pleural effusion. Nonew mediastinal widening. No acute bony changes. [place] overlie the upperlateral right hemithorax as previously. IMPRESSION: No acute cardiopulmonary abnormality. APPROVED BY STAFF RADIOLOGIST: DENISHA MCKEON 12/19/2024 1:16 PM EDT Bridger Hernandez MD IMG XR PROCEDURES Final Result * (ABNORMAL) Cystatin C with eGFR (12/19/2024 12:15 PM EDT) Only the most recent of2 resultswithin the time period is included. Cystatin C 1.20(H) 0.72 - 1.16 mg/L [facility] eGFRcys 59(L) >59 mL/min/1.73 [facility] Blood Venous blood specimen / Unknown 12/19/2024 12:15 PM EDT 12/19/2024 Narrative [facility] - 12/20/2024 6:45 AM EDT Performed at: [facility] [id number] Fagoter: Iram Zambrano MD, Phone: [phone] us Bridger Hernandez MD LAB BLOOD ORDERABLES Final Resu lt Performing Organization Address [facility] Co de Phone Number [facility] [address] [place] [address], [facility] * PSA Total, Screen (Male patients only) (12/19/2024 12:15 PM EDT) PSA TOTAL 2.7 0.0 - 4.0 ng/mL [facility] Comment: [place] ECLIA methodology. According to the [place], Serum PSA should decrease and [...] - 12/20/2024 7:45 AM EDT Performed at: [address] [place] [id number] Fagoter: Iram Zambrano MD, Phone: [phone] us Bridger Hernandez MD LAB BLOOD ORDERABLES Final Resu lt Performing Organization Address [facility] Co de Phone Number [facility] [address] [place] [address], [facility] * (ABNORMAL) CBC and differential [...] 400 K/uL [facility] Comment:MPV 10.3 fL 9.1-12. 4 Neutrophils 70.3 % [facility] 1 Lymphs 12.3 [...] - 12/19/2024 3:15 PM EDT Performed at: - [address] [id number] Fagoter: Jim Henning [facility], Phone: [phone] us Bridger Hernandez MD LAB BLOOD ORDERABLES Final Resu lt [facility] [address] [place] [address], [place] [facility] * Uric Acid (12/19/2024 [...] - 12/19/2024 3:15 PM EDT Performed at: [address] [place] [id number] Fagoter: Jim Henning [facility], Phone: [phone] us Bridger Hernandez MD LAB BLOOD ORDERABLES Final Resu lt Performing Organization Address [facility] Co de Phone Number [facility] [address] [place] [address], [facility] * Phosphorus (12/19/2024 12:15 PM EDT) Only the most recent of2 resultswithin the time period is included. Pathologist [facility] Phosphorus 3.9 2.4 - 4.9 mg/dL [facility] Blood Venous blood specimen / Unknown 12/19/2024 12:15 PM EDT 12/19/2024 Narrative [facility] - 12/19/2024 3:15 PM EDT Performed at: [address] [place] [id number] Fagoter: Jim Henning [facility], Phone: [phone] us Bridger Hernandez MD LAB BLOOD ORDERABLES Final Resu lt Performing Organization Address [facility]/ZIP Co de Phone Number [facility] [address] [place] [address], [facility] * (ABNORMAL) Lactate dehydrogenase (12/19/2024 12:15 PM EDT) Only the most recent of2 resultswithin the time period is included. Pathologist [facility] LDH 369(H) 110 - 250 U/L [facility] 1 Blood Venous blood specimen / Unknown 12/19/2024 12:15 PM EDT 12/19/2024 Narrative [facility] - 12/19/2024 3:15 PM EDT Performed at: [address] [place] [id number] Fagoter: Jim Henning [facility], Phone: [phone] Bridger Hernandez MD LAB BLOOD ORDERABLES Final Resu lt Performing Organization Address [facility] Co de Phone Number [facility] [address] [place] [address], [facility] * (ABNORMAL) Hemoglobin A1c (12/19/2024 12:15 PM EDT) [facility] HgbA1C 6.5(H) 4.8 - 5.6 % [facility] Comment: Prediabetes: 5.7 - 6.4 Diabetes: >6.4 Glycemic control for adults with diabetes: <7.0 Blood Venous blood specimen / Unknown 12/19/2024 12:15 PM EDT 12/19/2024 Narrative [facility] - 12/20/2024 4:05 AM EDT Performed at: [address] [place] [id number] Fagoter: Iram Zambrano MD, Phone: [phone] Bridger Hernandez MD LAB BLOOD ORDERABLES Final Resu lt Performing Organization Address City/[facility]/ZIP Co de Phone Number [facility] [address] [place] [address], [facility] * CK (aka CPK) (12/19/2024 12:15 PM EDT) Only the most recent of2 resultswithin the time period is included. Pathologist [facility] CK Total 41 41 - 331 U/L [facility] Blood Venous blood specimen / Unknown 12/19/2024 12:15 PM EDT 12/19/2024 Narrative [facility] - 12/20/2024 7:45 AM EDT Performed at: [address] [id number] Fagoter: Iram Zambrano MD, Phone: [phone] Bridger Hernandez MD LAB BLOOD ORDERABLES Final Resu lt Performing Organization Address City/[facility]/ZIP Co de Phone Number [facility] [address] [place] [address], [facility] * Hepatic function panel (12/19/2024 12:15 PM EDT) Only the most recent of2 resultswithin the time period is included. Bilirubin, Direct 0.2 0.0 - 0.5 mg/dL [facility] Blood Venous blood specimen / Unknown 12/19/2024 12:15 PM EDT 12/19/2024 Narrative [facility] - 12/19/2024 3:15 PM EDT Performed at: [address] [place] [id number] Fagoter: Jim Henning [facility], Phone: [phone] us Bridger Hernandez MD LAB BLOOD ORDERABLES Final Resu lt Performing Organization Address City/[facility]/ZIP Co de Phone Number [facility] [address] [place] [address], [facility] * (ABNORMAL) Lipid panel (12/19/2024 [...] 6:45 AM EDT Performed at: 01 - [facility] [address] [id number] Fagoter: Iram Zambrano MD, Phone: [phone] us Bridger Hernandez MD LAB BLOOD ORDERABLES Final Resu lt [facility] [address] [place] [address], [facility] * ECG 12 lead [[facility]: Epiphany] Normal (12/19/2024 10:45 AM EDT) 12/19/2024 10:4 5 AM EDT Narrative [facility] STRESS/ECG EPIPHANY CARDIOSERVER - 12/19/2024 5:05 PM EDT [facility] Test Date: 2024-12-19 Pat Name: MATTHEW AVILA Department: [facility] Room: Gender: Male Field Observer: : 1955 Requested By: BRIDGER HERNANDEZ Order Number: [id number] Reading MD: Lacho Bauer Measurements Intervals [place] Rate: 91 P: 59 GA: 145 QRS: 40 QRSD: 77 T: 24 QT: 339 QTc: 417 Interpretive Statements Sinus rhythm Probable anteroseptal infarct, old Compared to ECG 12/31/2023 07:37:42 Sinus rhythm now more clearly present Electronically Signed On 12-19-2024 17:05:32 EDT by Lacho Bauer us Bridger Hernandez MD ECG ORDERABLES Final Result [facility] STRESS/ECG EPIPHANY CARDIOSERVER * DOBUTAMINE STRESS ECHO (12231) (12/19/2024 9:38 AM EDT) 12/19/2024 8:40 AM EDT Narrative [facility] PACS/REPORTING KRZYSZTOF ISCV - 12/19/2024 11:15 AM EDT [facility] [address] [place] [address] Stress Echocardiogram Name: MATTHEW TORO Study Date: 12/19/2024 08:40 AM : 1955 Gender: Male Age: 69 yrs Ethnicity: OTHER Patient Location: [facility] Referring Physician: JOSE ANGEL NUNEZ Performed By: Osiel Michelle Ordering Physician: JOSE ANGEL NUNEZ Reason For Study: cardiac transplantation Height: 68 in Weight: 135 lb BSA: 1.7 m2 BP: 120/58 mmHg CPT/Quality/Location Stress Echo (44021). Stress Echo interp & report (96317). Supply - dobutamine. Location performed: Department. The [...] Russ MD - 12/19/2024 [facility] [address] [place] [address] StressEchocardiogram Name: MATTHEW TORO Study Date: 508:40 AM : 1955 Gender: Male Age: 69 yrs Ethnicity: OTHER Patient Location: [facility] Referring Physician: JOSE ANGEL NUNEZ Performed By: Osiel Michelle Ordering Physician: JOSE ANGEL NUNEZ Reason For Study: cardiac transplantation Height: 68 in Weight: 135 lb BSA: 1.7 m2 BP:120/58 mmHg CPT/Quality/Location Stress Echo (95221). Stress Echo interp & report (11502). Supply -dobutamine. Location performed: Department. The quality [...] Nunez NP CV ECHO PROCEDURES Final Result [facility] PACS/REPORTING KRZYSZTOF ISCV * ALLOMAP HEART (11/07/2024 2:20 PM EDT) Pathologist [facility] ALLOMAP SCORE - HEART 32 11/09/2024 1:01 AM EDT [facility] ([facility]) 95% CONFIDENCE INTERVAL 95% CI:30.1-3 4.8 11/09/2024 1:01 AM EDT [facility] ([employer]) NEGATIVE PREDICTIVE VALUE 99.0% 11/09/2024 1:01 AM EDT [facility] ([employer]) POSITIVE PREDICTIVE VALUE 2.9% 11/09/2024 1:01 AM EDT [facility] ([employer]) TIME POST TX 0y 10m 12d 11/09/2024 1:01 AM EDT [facility] ([employer]) TEST COMMENTS ([facility]) <None Specified > 11/09/2024 1:01 AM EDT [facility] ([employer]) NOTES ([facility]) See Note 11/09/2024 1:01 AM EDT [facility] ([employer]) Comment: Interpretation of AlloMap score should be made using the information available at the following link: http://www.allomap.com AlloMap testing performed at [facility] (CLIA No: [id number], CAP No: [id number]) Fagoter: Axel Cartagena M.D. These AlloMap test results are displayed here for your convenience. The pdf AlloMap report is the official report. The following data chamorro on the Results Details page are intentionally left empty as they are not applicable to AlloMap testing: Abnormal Units TX DATE 4 11/09/2024 1:01 AM EDT [facility] ([employer]) [facility] ORDER ID [id number] 11/09/2024 1:01 AM EDT [facility] ([employer]) CENTER ORDER ID [id number] 11/09/2024 1:01 AM EDT [facility] ([employer]) WP ORDER ID <None Specified > 11/09/2024 1:01 AM EDT [facility] ([employer]) Blood Venous blood specimen / Unknown Venipuncture / Unknown 11/07/2024 2:20 PM EDT 11/07/2024 2:48 PM EDT us Jose Angel Nunez AFTERSCHOOL BABYSITTER LAB BLOOD ORDERABLES Final Resu lt [facility] ([employer]) [address] [place], [place] [id number] * ALLOSURE HEART (11/07/2024 2:20 PM EDT) ALLOSURE SCORE < 0.04 % 11/09/2024 7:45 PM EDT [facility] ([employer]) TIME POST TX 0y 10m 12d 11/09/2024 7:45 PM EDT [facility] ([employer]) TEST COMMENTS (ASHK) <None Specified> 11/09/2024 7:45 PM EDT [facility] ([employer]) NOTES (ASHK) See Note 11/09/2024 7:45 PM EDT [facility] ([employer]) Comment: INTERPRETATION OF RESULTS Instructions for Interpreting [...] (2)(3) See the HeartCare interpretation guide at [email or web address] for information on HeartCare, AlloSure Heart and [...] more information about AlloSure Heart, please visit [email or web address]. (1)Nik et al., J Heart Lung Transplant 2023; (2)Nik et al., Am J Transplant 2019; (3)Data on file for patients <15 years old. The AlloSure Heart Donor-Derived Cell-Free DNA Test was developed and its performance characteristics were determined by the [facility] laboratory. The test has not been cleared or approved by the U.S. Food and Drug Administration. The laboratory is certified under the Clinical Laboratory Improvement Amendments of 1988 (CLIA '88) and accredited by the College of [place]ral[employer]ologists (CAP) as qualified to perform high complexity clinical laboratory testing. The contents of this report are confidential and intended solely for use by authorized personnel. AlloSure testing performed at [facility] [address] [place] [id number] (CLIA No: [id number], CAP No: [id number]) Fagoter: Axel Cartagena M.D. [facility] 2024 7:45 PM EDT [facility] ([employer]) CLIENT SPECIMEN ID <None Specified> 11/09/2024 7:45 PM EDT [facility] ([employer]) TX DATE 12/28/2023 11/09/2024 7:45 PM EDT [facility] ([employer]) DONOR RELATION Unrelated 11/09/2024 7:45 PM EDT [facility] ([facility]) [facility] ORDER ID [id number] 11/09/2024 7:45 PM EDT [facility] ([employer]) CENTER ORDER ID [id number] 11/09/2024 7:45 PM EDT [facility] ([employer]) WP ORDER ID <None Specified> 11/09/2024 7:45 PM EDT [facility] ([employer]) Blood Venous blood specimen / Unknown Venipuncture / Unknown 11/07/2024 2:20 PM EDT 11/07/2024 2:49 PM EDT us Jose Angel Nunez NP LAB BLOOD ORDERABLES Final Resu lt [facility] ([facility]) [address] [place] [address] * IgG (11/07/2024 2:16 PM EDT) IgG 760 603 - 1,613 mg/dL [facility] Blood Venous blood specimen / Unknown 11/07/2024 2:16 PM EDT 11/07/2024 Narrative [facility] - 11/08/2024 6:15 AM EDT Performed at: 01 - [facility] [address] [id number] Fagoter: Iram Zambrano MD, Phone: [phone] Lena Cortes NP LAB BLOOD ORDERABLES Fin al Result Performing Organization Address City/[facility]/ZIP Co de Phone Number [facility] [address] [place] [address], [facility] * Hepatitis C Virus RNA, Quantitative, RT-PCR (01/26/2024 10:30 AM EDT) Pathologist [facility] HCV RNA by RT-PCR [facility] 01/27/2024 2:18 PM EDT [facility] Comment:Not Detected HCV RNA Viral Load, log [facility] 01/27/2024 2:18 PM EDT [facility] Comment:Not Detected HCV RNA Viral Load, Interp Not Detected Not Detected [facility] 01/27/2024 2:18 PM EDT [facility] Blood Venous blood specimen / Unknown Venipuncture / Unknown 01/26/2024 10:30 AM EDT 01/26/2024 11:13 AM EDT Narrative [facility] - 01/27/2024 2:18 PM EDT This test was performed using the Oloc[employer] m HCV assay, performed on the [employer] instrument. The lower limit of quantification is 12 IU/mL. Chi Barton MD LAB BLOOD ORDERABLES Final Resu lt [facility] [address] [place] [address], * Albumin, Urine, Random (Microalbumin Random, Including Creatinine) (11/26/2023 1:50 PM EDT) Albumin, urine (INT/EXT) <1.2 mg/dL 11/26/2023 2:44 PM EDT [facility] Creatinine, urine, random (INT/EXT) 47.40 24.00 - 392.00 mg/dL 11/26/2023 2:44 PM EDT [facility] Albumin/Creatini ne ratio 11/26/2023 2:44 PM EDT [facility] Comment:Unable to calculate due to below or above Analytical Measurement Range. 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 Lloyd Mandel Son First Alte rnate Health Care Agent Care Teams Construction And Maintenance Inspector Relationship Specialty Start Date End Date Name, MD Yoandy [address] [place] [address] PCP - General Clinical Trial Leader 11/12/23 Glenn Herman MD [address] [place] [address] Referring Physician Cardiology 11/12/23 Edward Handley CPhT Field Observer Pharmacy 12/31/23 Jennie Michelle, PharmD [address] [place] [address] Pharmacist Pharmacy 01/27/24 Bridger Hernandez MD [address] [facility] [address] [place] [address] Attending Physician Cardiology 12/19/24
--- OUTSIDE RECORDS SUMMARY | 2025-01-19 12:26 | XMS_ITS | Clinical Summary ---
Author Organization [facility] Address [facility] ([employer] [address] [place] [address] Phone Care Team Providers Care Geothermal Field Technician Name Role Phone Name, Yoandy LUGO Primary Care Provider [phone] Social History Tobacco Use Types Packs/Day Years [...] file Insurance MEDICARE PART A & B [facility] [address] [place], [place] [address]B [place] [id number] [facility] [address] [place], [place] [address] MEDICARE PART A & B [facility] F[facility] Member Subscriber Plan / Payer (Ef fective 2023-Present) Name:Matthew Toro Relation to Subscriber:Self Name:Matthew Toro Payer ID:Not on file Group ID:Not on file Type:Medicaid Address: [address] MEDICARE PART A & B [employer] SAFETY NET FULL MEDICARE PART A & B [facility] SAFETY NET FULL Member Subscriber Plan / Payer (Ef fective 2023-Present) Name:Matthew Toro Relation to Subscriber:Self Name:Avila Margarita Matthew Donny Payer ID:Not on file Group ID:Not on file Type:Medicaid Address: [address] [place] [id number] [facility] FULL B Care Teams Geothermal Field Technician Relationship Specialty Start Date End Date Name, MD Yoandy [address] [place] [address] PCP - General Internal Medicine 11/02/23 Additional Source Comments The information contained in this document represents components of the legal health record. It is not the complete legal health record.[facility]
--- OUTSIDE RECORDS SUMMARY | 2025-01-19 12:26 | XMS_ITS | Encounter Summary ---
Author Organization [facility] Address 800 [facility] [address] [place] [address] Care Team Providers Care Building Services Engineer Name Role Phone Glenn Herman MD Unavailable [phone] Name, Yoandy LUGO Primary Care Provider [phone] Edward Handley ironer machine Unavailable Unavailable Jennie Michelle PharmD Unavailable Juan Hutchinson MD Unavailable [phone] Encounter Details Date Type Department Care Team (Late st Contact Info) Description 01/18/2025 Telephone [facility] Infectious Disease 260 [facility] 3rd [place] [address] Lena Cortes, CATTLE CARE WORKER [address] [place] [address] Social History Tobacco Use Types [...] place to sleep or slept in a prison (including now)? No 11/26/2023 Sex and Gender [...] Telephone Encounter - Lena Cortes NP - 01/18/2025 9:11 AM EDT Heart ID Through the aide of Irish interpretor Loida #[id number] Spoke with Mrs. Avila to remind her that Matthew needs to go for labs. She will plan on going tomorrow and have labs drawn. She reports he is feeling well and is tolerating medication. Lena Cortes NP 01/18/2025 9:15 AM documented in this encounter Plan of Treatment Upcoming Encounters Date Type Department Care Team (Late st Contact Info) Description 02/02/2025 1:30 PM EDT Office Visit [facility] Lung Nodule [address] [address] Alfred Mckeon MD 860 [place] [address] 02/02/2025 2:00 PM EDT Office Visit [facility] Lung Nodule [address] [address] Yoav Lugo Lung Nod Pul 02/22/2025 2:00 PM EST Office Visit [facility] Neurology 260 [place] [address] Percy Kapoor MD [address] [place] [address] 03/08/2025 1:00 PM EST Office Visit [facility] Dermatology 260 [place] [address] Nelida Ayala MD [address] [place] [address] 03/20/2025 12:00 PM EST Office Visit [facility] Cardiac Subspecialty 860 [facility] 6th [place] [address] Charlie Barry MD [address] [place] [address] 07/12/2025 10:30 AM EDT Appointment [facility] Pulmonary Function Lab [address] [facility] [address] 5th Floor Room 511 [place] [phone] 07/12/2025 11:30 AM EDT Office Visit [facility] Pulmonary 260 [facility] [address] 3rd [place] [phone] Daysi Fink MD [address] [place] [address] Intensive Care Unit/[facility] [address] documented as of this encounter Visit Diagnoses Not on filedocumented in this encounter Care Teams Building Services Engineer Relationship Specialty Start Date End Date Name, MD Yoandy 230 [place] [address] PCP - General Mainspring Former 11/12/23 Glenn Herman MD [address] [place] [address] Referring Physician Cardiology 11/12/23 Edward Handley, ironer machine [facility] 12/31/23 Jennie Michelle, PharmD [address] [place] [address] Pharmacist Pharmacy 01/27/24 Juan Hutchinson MD [address] [place] [address] [place] [address] Attending Physician Cardiology 12/19/24 documented as of this encounter
--- OUTSIDE RECORDS SUMMARY | 2025-01-19 12:26 | XMS_ITS | Encounter Summary ---
Author Organization [facility] Address 800 [facility] 520 [place] [address] Care Team Providers Care Tree Cutter Name Role Phone Glenn Herman MD Unavailable NameYoandy MD Primary Care Provider Edward Handley metal stud framer Unavailable Unavailable Jennie Michelle PharmD Unavailable Juan Hutchinson MD Unavailable [phone] Encounter Details Date Type Department Care Team (Late st Contact Info) Description 12/20/2024 Results Follow-Up [facility] Infectious Disease 260 [facility] 3rd [place] [address] Lena Cortes, MAILS SUPERVISOR 800 [place] [phone] Social History Tobacco Use Types Packs/Day Years [...] place to sleep or slept in a assisted (including now)? No 11/26/2023 Sex and Gender [...] Description 02/02/2025 1:30 PM EDT Office Visit [facility] Lung Nodule [address] [address] Alfred Mckeon MD [address] [place] [address] 02/02/2025 2:00 PM EDT Office Visit [facility] Lung Nodule [address] [address] Yoav Portillo Lung Nod Pul 02/22/2025 2:00 PM EST Office Visit [facility] Neurology 260 [place] [address] Percy Kapoor MD [address] [address] 03/08/2025 1:00 PM EST Office Visit [facility] Dermatology 260 [place] [address] Nelida Ayala MD [address] [place] [address] 03/20/2025 12:00 PM EST Office Visit [facility] Cardiac Subspecialty [address] [address] Charlie Barry MD 800 [place] [address] 07/12/2025 10:30 AM EDT Appointment [facility] Pulmonary Function Lab 800 [facility] [address] 5th Floor Room 511 [place] [address] 07/12/2025 11:30 AM EDT Office Visit [facility]monary [address] [facility] [address] [place] [address] Daysi Fink MD 295 [facility] Intensive Care Unit/[facility] [address] documented as of this encounter Visit Diagnoses Not on filedocumented in this encounter Care Teams Tree Cutter Relationship Specialty Start Date End Date Name, MD Yoandy 230 [place] [address] PCP - General Mushroom Spawn Maker 11/12/23 Glenn Herman MD [address] [place] [address] Referring Physician Cardiology 11/12/23 Edward Handley CPhT [facility] 12/31/23 Jennie Michelle, PharmD [address] [place] [address] Pharmacist Pharmacy 01/27/24 Juan Hutchinson MD 800 [facility] [address] [place] [address] Attending Physician Cardiology 12/19/24 documented as of this encounter
--- OUTSIDE RECORDS SUMMARY | 2025-01-19 12:26 | XMS_ITS | Clinical Summary ---
Author Organization [facility] Address 75 [facility] 7t [place] [address] Care Team Providers Care Converter Operator Name Role Phone Name, Yoandy LUGO Primary Care Provider [phone] Allergies Active Allergy Reactions Criticality Noted Date [...] ONE HOUR BEFORE DENTAL WORK. 4 Active sennosides (Senokot) 8.6 MG tablet Take 8.6 mg by mouth if needed in the morning and at bedtime. 4 Active Sharps Container (BD Sharps Wiring Mechanic) misc For disposal of needles and lancets 4 Active sulfamethoxazo le-trimethopri m (Bactrim DS) 800-160 MG tablet Take 1 tablet by mouth Once per day. 4 Active HumaLOG KWIKPEN 100 UNIT/ML injection Administer subcutaneous 5 units with breakfast, 6 units with lunch and dinner 4 Active calcium carbonate (Tums) 500 MG chewable tablet Chew 1 tablet (500 mg) 2 times daily. 4 02/05/20 25 Active cholecalcifero l (Vitamin D-3) 25 MCG (1000 UT) capsule [...] Units under the skin at bedtime. Active mycophenolate (Cellcept) 500 MG tablet Take 1,000 mg by mouth 2 times daily. 4 01/12/20 25 pantoprazole (ProtoNix) 40 MG EC tablet Take 40 mg by mouth before breakfast. 4 01/13/20 25 Active Problems Problem Noted Date Diagnosed Date [...] both ears 0 04/15/2024 Observed seizure-like activity ([facility]) 024 Heart transplant recipient ([facility]) 02/05/2024 Overview (02/05/2024): #s/p OHT 12/28/23 #s/p impella explant #s/p ICD explant #hx NICM Seizure disorder ([facility]) 02/05/2024 Immunocompromised 02/05/2024 Sarcoidosis 01/27/2024 Alteration in [...] 's report Asked patient to call his Furnace Tapper regarding his increased weight/swelling for further recommendations. Dysphagia 02/08/2023 Positive colorectal cancer screening using Colog uard test 02/04/2023 Overview (11/03/2023): Negative Colonoscopy 06/2023: urgical Pathology Exam - Order: [id number] Component 4 mo ago Case Report Surgicals Case: [id number] Authorizing Provider: Donny Encarnacion Collected: 2023 0843 MD Eugene Ordering Location: [facility] GI Lab Received: 2023 1011 Pathologist: [...] IHC, [place] [address]. Resulting Agency [facility] Specimen Collected: 06/19/23 08:43 Performed by: [facility] Last Resulted: 06/23/23 17:27 Athscl heart [...] were answered. Coronary artery disease invo lving tetlin coronary artery of tetlin heart without angina pectoris 11/14/2022 Overview (11/02/2023): Last Assessment & Plan: - nonobstructive disease - continue medical therapy with aspirin, statin, BB - denies angina Stridor 11/13/2022 Overview (11/02/2023): Last Assessment & Plan: Improved after last dilation in April 2023. Mild stridor noted today in clinic Discussed with his primary project manager process development Dr. Sanches and will work to get [...] Ventricular tachycardia, unspecified (CMS/HCC) 0 04/06/2022 Other meterman (current) drug therapy 3 Type 2 diabetes [...] upgraded from dual-chamber to biventricular device at [facility] 03/2022. Follows at [facility] cardi Systolic dysfunction 03/13/2022 History of bradycardia 03/13/2022 Family history of prostate cancer 03/13/2022 Complete heart block (CMS/HCC) 04/06/2020 Overview (11/02/2023): Added automatically from request for surgery [id number] Last Assessment & Plan: History of biventricular pacemaker that was upgraded to SEWING MACHINE MAINTENANCE MECHANIC defibrillator in September. Device interrogated today with [...] call cardiology office as well. Aspiration pneumonia ([facility]) 02/08/2023 02/05/2024 Hyperlactatemia 02/08/2023 11/03/2023 Viral pneumonia [...] -No need for ischemic evaluation long term (current) use of o ral hypoglycemic drugs [...] DEPARTMENT Provider, Generic External Data 11/24/2024 Telephone [facility] 230 [place] [address] [place] oct recalls from Last 3 Months Immunizations [...] Average Number of Drinks Not on file 07/16/2 024 Frequency of Binge Drinking Not on [...] Description 02/20/2025 10:00 AM EST Office Visit [facility] 230 [place] [address] Name, MD Yoandy [address] [place] [address] Health Maintenance Due Date Last Done Comments [...] complication, without long-term current use of insulin ([facility]/HCC) ALBUMIN, RANDOM URINE W/CREATININE Routine 04/14/2024 11:04 AM EST Type 2 diabetes mellitus with other circulatory complication, without long-term current use of insulin (CMS/HCC) LIPID PANEL, STANDARD Routine 06/27/2022 9:53 AM EDT from Last 3 Months or Most Recently Relevant to Health Maintenance Results * Glucose, Whole Blood (12/30/2024 3:47 PM EDT) Glucose, Whole Blood 105 60 - 115 mg/dL [facility] Comment:METER #: [id number] Testing performed in the Endocrinology Department [address] , [address], [facility]. 12/30/2024 3:47 PM EDT 12/30/2024 4:17 PM EDT Generic External Data Provider LAB BLOOD ORDERAB LES Final Result [facility] [address] [place] [phone] * POCT HGB A1C (07/27/2024 10:59 [...] [facility] Microalbumin Urine 6.0 mg/L [facility] Microalbum Creatinine Ratio Ur 5.5 <30 ug/mg cr [facility] Comment:Albumin/Creatinine R atio Reference Ranges: Normal: < 30 ug/mg creatinine Microalbuminuria: 30 - 300 ug/mg creatinineClinical Albuminuria: > 300 ug/mg creatinine Urine (Urine, Random) 04/14/2024 11:04 AM EST 04/14/2024 1:04 PM EST us Yoandy Name MD LAB URINE ORDERABLES Final Resul t Performing Organization Address City/[facility]/ZIP Co de Phone Number [facility] [address] [place] [phone] [phone] * Lipid Panel, Standard (06/27/2022 9:53 AM EDT) Triglycerides 84 mg/dL [facility] Comment:Desirable Triglyceri de: less than 150 mg/dLBorderline High Triglyceride 150-199 mg/dLHigh Triglyceride: 200-499 mg/dLVery High Triglyceride: greater than or equal to 5OO mg/dL Cholesterol 154 mg/dL [facility] Comment:Desirable Cholestero l: less than 200 mg/dLBorderline High Cholesterol: 200-239 mg/dLHigh Cholesterol: greater than 239 mg/dL LDL Cholesterol Calculated 104 mg/dl [facility] Comment:Desirable LDL: less than 100 mg/dLNear Optimal/Above Optimal LDL: 110- 129 mg/dLBorderline High LDL: 130-159 mg/dLHigh LDL: 160-189 mg/dLVery High LDL: greater than or equal to 190 mg/dL HDL Cholesterol 34 mg/dL [facility] Comment:Desirable HDL: great er than 40 mg/dL Note: This HDL assay may give artificially low results in patients with liver disease. 06/27/2022 9:53 AM EDT 06/27/2022 9:53 AM EDT [facility] External Provider LAB BLO OD ORDERABLES Final Result Performing Organization Address City/[facility]/ZIP Co de Phone Number [facility] [address] [place] [address] [phone] from Last 3 Months or Most Recently Relevant to Health Maintenance Insurance MEDICARE [facility] STANDARD [facility] MEDEX MEDICARE SUPPLEMENT Care Teams Converter Operator Relationship Specialty Start Date End Date Name, MD Yoandy [address] [place] [address] PCP - General Internal Medicine 10/19/23 [facility] 01/19/24
--- OUTSIDE RECORDS SUMMARY | 2025-01-19 12:26 | XMS_ITS | Encounter Summary ---
Author Organization [facility] Address 800 [facility] 520 [place] [address] Care Team Providers Care Balancing Machine Operator Name Role Phone Glenn Herman MD Unavailable Name, Yoandy LUGO Primary Care Provider Edward Handley icu manager Unavailable Unavailable Jennie Michelle PharmD Unavailable [phone] Juan Hutchinson MD Unavailable [phone] Encounter Details Date Type Department Care Team (Late st Contact Info) Description 12/29/2023 Lab Requisition [facility] HLA Lab 800 [place] [phone] Pedro Kline MD 800 [facility] [address] [place] [address] Cardiomyopathy, unspecified (Multi-HCC) Social History Tobacco Use [...] Description 02/02/2025 1:30 PM EDT Office Visit [facility] Lung Nodule [address] [address] Alfred Mckeon MD [address] [place] [address] 02/02/2025 2:00 PM EDT Office Visit [facility] Lung Nodule [address] [address] Yaov Lugo Lung Nod Pul 02/22/2025 2:00 PM EST Office Visit [facility] Neurology 260 [place] [address] Percy Kapoor MD [address] [address] 03/08/2025 1:00 PM EST Office Visit [facility] Dermatology 260 [place] [address] Nelida Ayala MD [address] [place] [address] 03/20/2025 12:00 PM EST Office Visit [facility] Cardiac Subspecialty [address] [phone] Charlie Barry MD 800 [place] [address] 07/12/2025 10:30 AM EDT Appointment [facility] Pulmonary Function Lab 800 [facility] [address] 5th Floor Room [address] [place] [address] 07/12/2025 11:30 AM EDT Office Visit [facility] Pulmonary 260 [facility] [address] 3rd [place] [address] Daysi Fink MD [address] [place] [address] Intensive Care Unit/[facility] [address] documented as of this encounter Procedures Procedure Name Priority Date/Time Associated Diagnosis Comments HLA CONSULTATION Routine 12/26/2023 11:5 6 PM EDT Cardiomyopathy, unspecified (Multi-HCC) documented in this encounter Results * HLA Consultation (12/26/2023 11:56 PM EDT) PDF Attached See PDF Document 01/02/2024 12:57 PM EDT [facility] HLA LAB Blood Venous blood specimen / Unknown 12/26/2023 11:56 PM EDT 12/29/2023 10:28 PM EDT us Pedro Kline MD LAB BLOOD ORDERABLES Maral l Result [facility] HLA LAB [address] [place] [address], documented in this encounter Visit Diagnoses Diagnosis Cardiomyopathy, unspecified Cytomegalovirus infection, 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, unspecified cytomegaloviral infection type documented in this encounter Care Teams Balancing Machine Operator Relationship Specialty Start Date End Date Name, MD Yoandy 230 [place] [address] PCP - General Coroner Forensic Technician 11/12/23 Glenn Herman MD [address] [place] [address] Referring Physician Cardiology 11/12/23 Edward Handley CPhT Non Licensed Nuclear Plant Operator Pharmacy 12/31/23 Jennie Michelle, PharmD 800 [place] [address] Pharmacist Pharmacy 01/27/24 Juan Hutchinson MD [address] [place] [address] [place] [address] Attending Physician Cardiology 12/19/24 documented as of this encounter
--- OUTSIDE RECORDS SUMMARY | 2025-01-19 12:26 | XMS_ITS ---
Author Organization [facility] Address 800 [facility], [address] [place] [address] Care Team Providers Care Book Packer Name Role Phone Glenn Herman MD Unavailable NameYoandy MD Primary Care Provider [phone] Edward Handley game author Unavailable Unavailable Jennie Michelle PharmD Unavailable [phone] Juan Hutchinson MD Unavailable Transplant Episode Heart Recipient [facility] ([place], [place]) - MAN Organ Received: Heart Transplanted on 12/28/2023 Marked as Active Follow-up on 12/28/2023 Heart CoordinatorZackery Paulino RN Phone: N/A Fax: N/A Email: N/A [place] Organ Diagnosis Organ Primary Contributory Heart Dilated [...] Negative SARS CoV-2 No results on file HIV IBRAHIMA No results on file HCV IBRAHIMA HCV IBRAHIMA: Negative CMV IBRAHIMA No results on file Care Team Name Role Phone Fax Email Zackery Paulino RN Hydraulic Controls Technician N/A N/A N/A Glenn Herman MD Referring Physician [phone] N/A Izaiah Watt MD Nozzle Operator [phone] N/A Events Post-Transplant Pre-Transplant Admitted: 11/23/2023 Referred: 11/09/2023 Transplanted: 12/28/2023 Evaluation began: 4 Discharged: 01/14/2024 Committee: 12/21/2023 Center waitlisted: 4 Appointments (12/20/2024 - 02/19/2025) When With Visit Type Description 12/28/[address] Chest without Contrast Cy tomegalovirus infection, unspecified cytomegaloviral infection type (Multi-HCC); Tracheal stenosis; Pulmonary sarcoidosis (Multi-HCC)
--- OUTSIDE RECORDS SUMMARY | 2025-01-19 12:27 | XMS_ITS | Encounter Summary ---
Author Organization [employer] Address [address] [facility] [address] [place] [address] Care Team Providers Care Film Developer Name Role Phone Name, Yoandy LUGO Primary Care Provider [phone] Name, Yoandy LUGO Primary Care Provider [phone] Encounter Details Date Type Department Care Team (Late st Contact Info) Description 03/21/2022 Orders Only [facility] [address] [place] [address] Coby Flores RN Social History Tobacco Use [...] 10:00 AM EST Office Visit [facility] [address] [place] [address] Name, MD Yoandy [address] [place] [address] documented as of this encounter Procedures Procedure Name Priority Date/Time Associated Diagnosis Comments B TYPE NATRIURETIC PEPTIDE (BNP) Routine 06/27/2022 9:53 AM EDT HEPATIC FUNCTION PANEL Routine 06/27/2022 9:53 AM EDT LIPID PANEL, STANDARD Routine 06/27/2022 9:53 AM EDT BASIC METABOLIC PANEL Routine 06/27/2022 9:53 AM EDT documented in this encounter Results * Lipid Panel, Standard (06/27/2022 9:53 AM EDT) Triglycerides 84 mg/dL [facility] Comment:Desirable Triglyceri de: less than 150 mg/dLBorderline High Triglyceride 150-199 mg/dLHigh Triglyceride: 200-499 mg/dLVery High Triglyceride: greater than or equal to 5OO mg/dL Cholesterol 154 mg/dL [facility] Comment:Desirable Cholestero l: less than 200 mg/dLBorderline High Cholesterol: 200-239 mg/dLHigh Cholesterol: greater than 239 mg/dL LDL Cholesterol Calculated 104 mg/dl [facility] Comment:Desirable LDL: less than 100 mg/dLNear Optimal/Above Optimal LDL: 110- 129 mg/dLBorderline High LDL: 130-159 mg/dLHigh LDL: 160-189 mg/dLVery High LDL: greater than or equal to 190 mg/dL HDL Cholesterol 34 mg/dL [facility] Comment:Desirable HDL: great er than 40 mg/dL Note: This HDL assay may give artificially low results in patients with liver disease. 06/27/2022 9:53 AM EDT 06/27/2022 9:53 AM EDT [facility] External Provider LAB BLO OD ORDERABLES Final Result [facility] [address] [place] [address] [phone] * (ABNORMAL) Basic Metabolic Panel (06/27/2022 9:53 AM EDT) Sodium 143 135 - 145 mmol/L [facility] Potassium 4.6 3.3 - 5.1 mmol/L [facility] Chloride 108 96 - 108 mmol/L [facility] Carbon Dioxide 26 22 - 29 mmol/L [facility] Anion Gap 14 12 - 20 [facility] Urea Nitrogen (BUN) 13 9 - 16 mg/dL [facility] Creatinine, Serum 1.02 0.5 - 1.4 mg/dL [facility] Estimated Glomerular Filt Rate >60 [facility] Comment:NOTE: For -Am erican individuals, multiply the result by 1.210.Chronic Kidney Disease: Estimated GFR < 60 mL/min/1.82p0Hfaelb Kidney Disease: Estimated GFR < 15 mL/min/1.73m2 Glucose 141(H) 60 - 115 mg/dL [facility] Calcium 9.4 8.4 - 10.2 mg/dL [facility] 06/27/2022 9:53 AM EDT 06/27/2022 9:53 AM EDT [facility] External Provider LAB BLO OD ORDERABLES Final Result Performing Organization Address [facility] Co de Phone Number [facility] [address] [place] [phone] * Hepatic Function Panel (06/27/2022 9:53 AM EDT) Bilirubin, Total 1.0 0.0 - 1.0 mg/dL [facility] Bilirubin, Direct 0.3 0.0 - 0.5 mg/dL [facility] Aspartate Amino Transferase 19 5 - 37 U/L [facility] Alanine Aminotransferase 24 0 - 40 U/L [facility] Total Protein 6.7 6.5 - 8.0 g/dL [facility] Albumin Level 4.2 3.5 - 5.0 g/dL [facility] Alkaline Phosphatase 61 39 - 117 U/L [facility] 06/27/2022 9:53 AM EDT 06/27/2022 9:53 AM EDT [facility] External Provider LAB BLO OD ORDERABLES Final Result Performing Organization Address [facility] de Phone Number [facility] [address] [place] [phone] * (ABNORMAL) B Type Natriuretic Peptide (BNP) (06/27/2022 9:53 AM EDT) B Type Natriuretic Peptide 332(H) <100 pg/mL [facility] Comment:For those patients w ho are being treated with Natrecor(nesiritide, recombinant BNP), BNP testing should beperformed at least two hours post treatment in order toensure that only endogenous levels of BNP are detected. 06/27/2022 9:53 AM EDT 06/27/2022 9:53 AM EDT us [facility] External Provider LAB BLO OD ORDERABLES Final Result [facility] [address] [place] [phone] documented in this encounter Visit Diagnoses Not on filedocumented in this encounter Care Teams Film Developer Relationship Specialty Start Date End Date NameYoandy MD [address] [place] [address] PCP - General Family Medicine 01/18/21 06/04/23 Name, MD Yoandy [address] [place] [address] PCP - General Internal Medicine 10/19/23 [facility] 01/19/24 documented as of this encounter
== END 2025-01-19 10:50 | disposition home or self-care (01) ==
PROVIDERS: PCP Internal Medicine Geriatric Medicine; Visit Provider Student in an Organized Health Care Education/Training Program
DX: E11.8 Type 2 diabetes mellitus with unspecified complications (principal); E11.40 Type 2 diabetes mellitus with diabetic neuropathy, unspecified; B35.1 Tinea unguium; L60.9 Nail disorder, unspecified; L60.3 Nail dystrophy; I83.93 Asymptomatic varicose veins of bilateral lower extremities; R60.0 Localized edema
CPT/HCPCS: 11721; 99204

== ENCOUNTER 2025-01-19 10:12 | Outpatient (REF) | payer MEDICARE, SELFPAY ==
--- OUTSIDE RECORDS SUMMARY | 2025-01-19 13:22 | XMS_ITS | Data Portability ---
Author Organization [place] [facility], Allergy Address [address] [facility] [address] [place] [address] Assessment Encounter Date Assessment Date Assessment LastModified by Organization Details LastModified Time 02/25/2024 02/25/2024 68-year-old male presents today for evaluation of stridor and tracheal stenosis. Symptoms seem to worsen about 3 weeks ago following dilation in November. Of note he had heart transplant about 2 months ago at [facility]. Flexible laryngoscopy did not reveal any [...] heart transplant. Thank you. 2023 Tarsha wagner [facility], [address] [facility], [place], [address], 09:56:34 Procedures None recorded. Surgeries None recorded. Imaging None recorded. Medication Orders None recorded. Patient TargetsNo targets recorded. Patient InstructionsNo instructions recorded. Reason for Referral Audiovisual Lead Technician Referral for T gaby stenosis following tracheostomy Established patient of Dr Alegre. Needs follow up appt/repeat endoscopy. Patient has recent heart transplant. Thank you. Referring Physician: Sandip Regalado, Otolaryngology, Encounter Date: 02/25/2024 Problems Name Problem SNOMED Code Status Onset Date Resolution Date Notes Provider Name and Address Organization Details Recorded Time Tracheal stenosis following tracheostomy 26595577 Active 2023 SANDIP REGALADO MD [address] [facility] [address], [place], [phone], [facility] - [facility] 4 12:10:02 Sensorineural hearing loss of bilateral ears 013243428 Active 2024 BORA GRAY, [facility] [address] [facility],[place] [address], [place], [phone], [facility] 5 16:02:33 Problem Notes None recorded. Procedures Surgical History Date Name Laterality Status Provider Name and Address Organization Details Recorded Time 04/15/19 25 Comp Audio with Tymps - 45712 & 86361 completed BORA GRAY [address],[place] [address], [place], [phone], [facility] 04/15/2024 16:02:37 02/25/20 24 Fiberoptic Laryngoscopy (Comprehensive) completed SANDIP REGALADO MD [address] [place] [address],[address], [phone], [facility] 02/25/2024 12:11:38 Imaging Results None recorded. [...] Not Available Not Available Comfort EZ Pen Lynn 32 gauge x 5/32 active Not Available [...] Updated DateTime 04/15/2024 172.72 cm 20.2 kg/m2 52207.79 g Manda Ly [place] [facility] 04/15/2024 16:28:34 Date Recorded Body height Body mass index (BMI) Body weight Provider Name and Address Organization Details Last Updated DateTime 02/25/2024 172.72 cm 26.8 kg/m2 01634.26 g Manda Ly [facility] 02/25/2024 11:47:14 Social History None recorded. Functional Status None recorded. Mental Status None recorded. Family History Nothing Reported. Medical History Condition Response Diabetes Y Heart Problems Y Hyperlipidemia Y Past Encounters Encounter ID Performer Location Encounter Start Date Encounter Closed Date Diagnosis/Indication Diagnosis SNOMED-CT Code Diagnosis ICD10 Code Diagnosis IMO Codes Diagnosis Note [id number] SANDIP REGALADO MD [facility] [address] [address] 02/25/2024 11:26:24 02/25/2024 12:26:39 Tracheal stenosis following tracheostomy 96453038 J95.03 [id number] SANDIP REGALADO MD [facility] [address] [address] 04/15/2024 15:37:29 04/15/2024 16:57:22 Sensorineural hearing loss of bilateral ears 472190065 H90.3 68 yo M with a history [...] and there was likely some irritation here. [id number] JACQUE LUGO [facility] [address] [address] 04/15/2024 15:59:22 04/18/2024 07:41:17 Sensorineural hearing loss of bilateral ears 004251794 H90.3 Right Ear:Normal hearing through 1.5K Hz [...] Name 06/15/2024 2 [place] [id number] Matthew L Avila [id number] Matthew Donny Avila Avila 06/15/2024 1 [place] [employer] Matthew Avila Avila [id number] Matthew Donny Avila Avila 06/15/2024 2 [place] [facility] Matthew L Avila Avila [id number] Matthew Donny Avila Avila Notes Date Note Type Note Provider Name and Address Organization Details Recorded Time 02/25/2024 text/html ROS as noted in the HPI 68 yo M here for tracheal stenosis.Wheezing, had had 5 bronchoscopies. Scarring in the trachea following tracheostomy due to intensive care after heart attack, last year 2022 in [place], was on vacation. Coughing a lot. Had [...] corrected for lung volume SANDIP REGALADO MD [address] [place] [address],[address], [address], [facility] - [facility] 02/26/2024 10:58:54 04/15/2024 text/html Starting feeling numb on the side of the ear right after his surgeryTTP over jaw Has seen Dr. Walton. SANDIP REGALADO MD [address] [place] [address],[address], [address], [facility] - [facility] 04/18/2024 07:25:33
== END 2025-01-19 10:13 | disposition home or self-care (01) ==
LOC: HO.LNP 10:12
PROVIDERS: PCP Internal Medicine Geriatric Medicine; Visit Provider Student in an Organized Health Care Education/Training Program
DX: L60.3 Nail dystrophy (principal); L60.9 Nail disorder, unspecified; B35.1 Tinea unguium; E11.40 Type 2 diabetes mellitus with diabetic neuropathy, unspecified; E11.8 Type 2 diabetes mellitus with unspecified complications; I83.93 Asymptomatic varicose veins of bilateral lower extremities
CPT/HCPCS: 11721; 88304; 99202

== ENCOUNTER 2025-01-19 10:41 | Outpatient (REF) | payer MEDICARE, SELFPAY | END 2025-01-19 10:42 | disposition home or self-care (01) | LOC: HO.LAB 10:41 | PROVIDERS: Visit Provider Student in an Organized Health Care Education/Training Program | DX: Z13.89 Encounter for screening for other disorder (principal) | CPT/HCPCS: 87101; 87220 ==

== ENCOUNTER 2025-01-20 10:41 | Outpatient (REF) | payer MEDICARE, SELFPAY ==
[2025-01-20 11:46] LABS: Hematocrit 32.3 % (42.0-52.0); Hemoglobin 10.7 g/dl (14.0-18.0); Mean Corpuscular HGB Conc 33.1 g/dl (31.0-36.0); Mean Corpuscular Hemoglobin 28.8 pg (27.0-33.0); Mean Corpuscular Volume 86.8 fL (80.0-98.0); NRBC Abs Auto 0.000 X10*3/uL (0.0-0.012); NRBC Pct Auto 0.0 /100WBC (0.0-0.2); Platelet Count 132 X10*3/uL (160-400); Red Blood Count 3.72 X10*6/uL (4.60-5.80); White Blood Count 2.7 X10*3/uL (4.8-10.8)
--- OUTSIDE RECORDS SUMMARY | 2025-01-20 13:06 | XMS_ITS | Encounter Summary ---
Author Organization [employer] Address [address] [facility] [address] [place] [address] Care Team Providers Care House Designer Name Role Phone Glenn Herman MD Unavailable [phone] Name, Yoandy LUGO Primary Care Provider [phone] Edward Handley refrigerator assembler Unavailable Unavailable Jennie Michelle PharmD Unavailable Juan Hutchinson MD Unavailable [phone] Encounter Details Date Type Department Care Team (Late st Contact Info) Description 01/02/2025 Orders Only [facility] Infectious Disease [address] [facility] 3rd [place] [address] Lena Cortes, TEACHER PUBLIC HEALTH [address] [place] [phone] Social History Tobacco Use Types Packs/Day Years [...] to sleep or slept in a senior living (including now)? No 11/26/2023 Sex and Gender [...] Description 02/02/2025 1:30 PM EDT Office Visit [facility] Lung Nodule [address] [address] Alfred Mckeon MD [address] [place] [address] 02/02/2025 2:00 PM EDT Office Visit [facility] Lung Nodule [address] [address] Yoav Lugo Lung Nod Pul 02/22/2025 2:00 PM EST Office Visit [facility] Neurology [address] [place] [address] Percy Kapoor MD [address] [address] 03/08/2025 1:00 PM EST Office Visit [facility] Dermatology [address] [place] [address] Nelida Ayala MD [address] [place] [address] 03/20/2025 12:00 PM EST Office Visit [facility] Cardiac Subspecialty [address] [address] Charlie Barry MD 800 [place] [address] 07/12/2025 10:30 AM EDT Appointment [facility] Pulmonary Function Lab [address] [facility] [address] 5th Floor Room [address] [place] [phone] 07/12/2025 11:30 AM EDT Office Visit [facility] [address] [facility] [address] 3rd [place] [phone] Daysi Fink MD [address] [facility] Intensive Care Unit/[facility] [address] documented as of this encounter Visit Diagnoses Not on filedocumented in this encounter Care Teams House Designer Relationship Specialty Start Date End Date Name, MD Yoandy [address] [place] [address] PCP - General Comber Operator 11/12/23 Glenn Herman MD [address] [place] [address] Referring Physician Cardiology 11/12/23 Edward Handley CPhT Supervisor [facility] 12/31/23 Jennie Michelle, PharmD [address] [place] [phone] Pharmacist Pharmacy 01/27/24 Juan Hutchinson MD [address] [facility] [address] [place] [address] Attending Physician Cardiology 12/19/24 documented as of this encounter
--- OUTSIDE RECORDS SUMMARY | 2025-01-20 13:06 | XMS_ITS | Clinical Summary ---
Author Organization [facility] Address [facility] [employer] [address] [place] [address] Phone Care Team Providers Care Neurodiagnostic Tech Name Role Phone Name, Yoandy LUGO Primary Care Provider [phone] Social History Tobacco Use Types Packs/Day Years [...] MEDICARE PART A & B [facility] [address] [place], [place] [address]B [place] PART A [place] [id number] [facility] [address] [place], [place] [address] MEDICARE PART A & B [facility] FULL Member Subscriber Plan / Payer (Ef fective 2023-Present) Name:Matthew Toro Relation to Subscriber:Self Name:Matthew Toro Payer ID:Not on file Group ID:Not on file Type:Medicaid Address: [address] MEDICARE PART A & B [email or web address] SAFETY NET FULL MEDICARE PART A & B [facility] SAFETY NET FULL Member Subscriber Plan / Payer (Ef fective 2023-Present) Name:Matthew Toro Relation to Subscriber:Self Name:Avila Margarita Matthew Donny Payer ID:Not on file Group ID:Not on file Type:Medicaid Address: [address] [place] [id number] [facility] FULL B Care Teams Neurodiagnostic Tech Relationship Specialty Start Date End Date Name, MD Yoandy [address] [place] [address] PCP - General Internal Medicine 11/02/23 Additional Source Comments The information contained in this document represents components of the legal health record. It is not the complete legal health record.[facility]
--- OUTSIDE RECORDS SUMMARY | 2025-01-20 13:06 | XMS_ITS | Encounter Summary ---
Author Organization [facility] Address 800 [facility] [address] [place] [address] Care Team Providers Care Gambreler Name Role Phone Glenn Herman MD Unavailable [phone] NameYoandy MD Primary Care Provider Edward Handley machine sizer Unavailable Unavailable Jennie Michelle PharmD Unavailable Juan Hutchinson MD Unavailable [phone] Encounter Details Date Type Department Care Team (Late st Contact Info) Description 12/20/2024 Results Follow-Up [facility] Infectious Disease [address] [facility] 3rd [place] [address] Lena Cortes, SENIOR C SOFTWARE DEVELOPER [address] [place] [phone] Social History Tobacco Use Types Packs/Day Years [...] place to sleep or slept in a correction (including now)? No 11/26/2023 Sex and Gender [...] Description 02/02/2025 1:30 PM EDT Office Visit [facility] Lung Nodule [address] [address] Alfred Mckeon MD [address] [place] [address] 02/02/2025 2:00 PM EDT Office Visit [facility] Lung Nodule [address] [address] Yoav Portillo Lung Nod Pul 02/22/2025 2:00 PM EST Office Visit [facility] Neurology [address] [place] [address] Percy Kapoor MD [address] [address] 03/08/2025 1:00 PM EST Office Visit [facility] Dermatology [address] [place] [address] Nelida Ayala MD [address] [place] [address] 03/20/2025 12:00 PM EST Office Visit [facility] Cardiac Subspecialty [address] [address] Charlie Barry MD 800 [place] [address] 07/12/2025 10:30 AM EDT Appointment [facility] Pulmonary Function Lab [address] [facility] [address] 5th Floor Room [address] [place] [address] 07/12/2025 11:30 AM EDT Office Visit [facility] [address] [facility] [address]rd [place] [address] Daysi Fink MD 295 [facility] Intensive Care Unit/[facility] [address] documented as of this encounter Visit Diagnoses Not on filedocumented in this encounter Care Teams Gambreler Relationship Specialty Start Date End Date Name, MD Yoandy [address] [place] [address] PCP - General Patent Engineer 11/12/23 Glenn Herman MD [address] [place] [address] Referring Physician Cardiology 11/12/23 Edward Handley CPhT Darkroom Technician Pharmacy 12/31/23 Jennie Michelle, PharmD [address] [place] [phone] Pharmacist Pharmacy 01/27/24 Juan Hutchinson MD [address] [facility] [address] [place] [address] Attending Physician Cardiology 12/19/24 documented as of this encounter
--- OUTSIDE RECORDS SUMMARY | 2025-01-20 13:06 | XMS_ITS | Clinical Summary ---
Author Organization [employer] Address [address] [facility] [address] [place] [address] Care Team Providers Care Hawk Missile System Crewmember Name Role Phone Name, Yoandy LUGO Primary Care Provider [phone] Allergies Active Allergy Reactions Criticality Noted Date [...] bedtime. 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 S/p multiple dilations in the past. Able to pass a 7.0 ETT, but no larger. Decreased functional mobility and endurance 11/06 Non-restorable tooth 11/19/2023 History of [place] (myocardial infarction) 10/20/2023 Memory problem 10/20/2023 Shortness [...] 's report Asked patient to call his Feather Duster Winder regarding his increased weight/swelling for further recommendations. Dysphagia 02/08/2023 Positive colorectal cancer screening using Colog uard test 02/04/2023 Overview (11/03/2023): Negative Colonoscopy 06/2023: urgical Pathology Exam - Order: [id number] Component 4 mo ago Case Report Surgicals Case: [id number] Authorizing Provider: Donny Encarnacion Collected: 2023 0843 MD Eugene Ordering Location: [facility] Received: 2023 1011 Pathologist: Shannan Jacuqes MD Specimens: A) - Colon, Transverse colon [...] IHC, or [place] [address]. Resulting Agency [facility] Specimen Collected: 06/19/23 08:43 Performed by: [facility] Last Resulted: 06/23/23 17:27 [...] were answered. Coronary artery disease invo lving [place] coronary artery of [place] heart without angina pectoris 11/14/2022 Overview (11/02/2023): Last Assessment & Plan: - nonobstructive disease - continue medical therapy with aspirin, statin, BB - denies angina Stridor 11/13/2022 Overview (11/02/2023): Last Assessment & Plan: Improved after last dilation in April 2023. Mild stridor noted today in clinic Discussed with his primary [employer] officer Dr. Sanches and will work to [...] Ventricular tachycardia, unspecified (CMS/HCC) 0 04/06/2022 Other exterminator helper termite (current) drug therapy 3 Type 2 diabetes [...] upgraded from dual-chamber to biventricular device at [facility] 03/2022. [place] [facility] Systolic dysfunction 03/13/2022 History of bradycardia 03/13/2022 Family history of prostate cancer 03/13/2022 Complete heart block (CMS/HCC) 04/06/2020 Overview (11/02/2023): Added automatically from request for surgery [id number] Last Assessment & Plan: History of biventricular pacemaker that was upgraded to CUSTODIAN SUPERVISOR defibrillator in September. Device interrogated today [...] call cardiology office as well. Aspiration pneumonia ([facility]) 02/08/2023 02/05/2024 Hyperlactatemia 02/08/2023 11/03/2023 Viral pneumonia [...] starting statin -No need for ischemic evaluation exterminator helper termite (current) use of o ral hypoglycemic drugs [...] DEPARTMENT Provider, Generic External Data 11/24/2024 Telephone [facility] [address] [place] [address] Americo Stiles[place], [place] oct recalls from Last 3 Months [...] with others, in a hotel, in a assisted, living outside on the street, on a [...] Description 02/20/2025 10:00 AM EST Office Visit [facility] [address] [place] [address] Name, MD Yoandy [address] [place] [address] Health Maintenance Due Date Last Done Comments [...] complication, without long-term current use of insulin ([facility]/HCC) ALBUMIN, RANDOM URINE W/CREATININE Routine 04/14/2024 11:04 AM EST Type 2 diabetes mellitus with other circulatory complication, without long-term current use of insulin (CMS/HCC) LIPID PANEL, STANDARD Routine 06/27/2022 9:53 AM EDT from Last 3 Months or Most Recently Relevant to Health Maintenance Results * Glucose, Whole Blood (12/30/2024 3:47 PM EDT) Glucose, Whole Blood 105 60 - 115 mg/dL [facility] Comment:METER #: [id number] Testing performed in the Endocrinology Department [address] , [address], [facility]. 12/30/2024 3:47 PM EDT 12/30/2024 4:17 PM EDT Generic External Data Provider LAB BLOOD ORDERAB LES Final Result [facility] [address] [place] [phone] * POCT HGB A1C (07/27/2024 10:59 AM EDT) Hemoglobin A1C 5.7 4.0 - 6.0 % QC Media Lot # [id number] Lot# Expiration Date Blood 07/27/2024 10:5 9 AM EDT Yoandy Tillman MD POINT OF CARE TEST ENTER/EDIT OR DERABLES Final Result * Albumin, Random Urine W/Creatinine (04/14/2024 11:04 AM EST) Creatinine, Urine 109.08 mg/dL [facility] Microalbumin Urine 6.0 mg/L [facility] Microalbum Creatinine Ratio Ur 5.5 <30 ug/mg cr [facility] Comment:Albumin/Creatinine R atio Reference Ranges: Normal: < 30 ug/mg creatinine Microalbuminuria: 30 - 300 ug/mg creatinineClinical Albuminuria: > 300 ug/mg creatinine Urine (Urine, Random) 04/14/2024 11:04 AM EST 04/14/2024 1:04 PM EST us Yoandy Name MD LAB URINE ORDERABLES Final Resul t Performing Organization Address City/[facility]/ZIP Co de Phone Number [facility] [address] [place] [address] [phone] * Lipid Panel, Standard (06/27/2022 9:53 AM EDT) Triglycerides 84 mg/dL [facility] Comment:Desirable Triglyceri de: less than [...] to 190 mg/dL HDL Cholesterol 34 mg/dL [facility] Comment:Desirable HDL: great er than 40 mg/dL Note: This HDL assay may give artificially low results in patients with liver disease. 06/27/2022 9:53 AM EDT 06/27/2022 9:53 AM EDT [facility] External Provider LAB BLO OD ORDERABLES Final Result Performing Organization Address City/[facility]/ZIP Co de Phone Number [facility] [address] [place] [address] [phone] from Last 3 Months or Most Recently Relevant to Health Maintenance Insurance MEDICARE [facility] STANDARD [facility] MEDEX MEDICARE SUPPLEMENT Care Teams Hawk Missile System Crewmember Relationship Specialty Start Date End Date Name, MD Yoandy [address] [place] [phone] PCP - General Internal Medicine 10/19/23 [facility] 01/19/24
--- OUTSIDE RECORDS SUMMARY | 2025-01-20 13:07 | XMS_ITS ---
Author Organization [facility] Address [address] [facility] [place] [address] Care Team Providers Care Forest Management Teacher Name Role Phone Glenn Herman MD Unavailable [phone] NameYoandy MD Primary Care Provider [phone] Edward Handley CPhT Unavailable Unavailable Jennie Michelle PharmD Unavailable Juan Hutchinson MD Unavailable [phone] RxSp Transplant Status:Enrolled (Active) Start date:12/31/2023 [...] Name Relationship Phone Edward Handley CPhT(Responsible Staff) Bulldogger Jennie Michelle PharmD Pharmacist [phone] Continued Care and Services Coordination
--- OUTSIDE RECORDS SUMMARY | 2025-01-20 13:07 | XMS_ITS ---
Author Organization [facility] Address [address] [facility] [place] [address] Care Team Providers Care Floor Manager Name Role Phone Glenn Herman MD Unavailable [phone] NameYoandy MD Primary Care Provider [phone] Edward Handley director recreation Unavailable Unavailable Jennie Michelle PharmD Unavailable [phone] Juan Hutchinson MD Unavailable [phone] Transplant Episode Heart Recipient [facility] [place] - MAN Organ Received: Heart Transplanted on 12/28/2023 Marked as Active Follow-up on 12/28/2023 Heart CoordinatorZackery Paulino RN Phone: N/A Fax: N/A Email: N/A [place] Organ Diagnosis Organ Primary Contributory Heart Dilated [...] Role Phone Fax Email Zackery Paulino RN Clay Processing Labourer N/A N/A N/A Glenn Herman MD Referring Physician [phone] N/A Izaiah Watt MD [employer] [phone] N/A Events Post-Transplant Pre-Transplant Admitted: 11/23/2023 Referred: 11/09/2023 Transplanted: 12/28/2023 Evaluation began: 4 Discharged: 01/14/2024 Committee: 12/21/2023 Center waitlisted: 4 Appointments (12/21/2024 - 02/20/2025) When With Visit Type Description 12/28/[address] Chest without Contrast Cy tomegalovirus infection, unspecified cytomegaloviral infection type (Multi-HCC); Tracheal stenosis; Pulmonary sarcoidosis (Multi-HCC)
--- OUTSIDE RECORDS SUMMARY | 2025-01-20 13:07 | XMS_ITS | Encounter Summary ---
Author Organization [facility] Address [address] [facility] [address] [place] [address] Care Team Providers Care Composition Board Press Operator Name Role Phone lGenn Herman MD Unavailable Name, Yoandy LUGO Primary Care Provider Edward Handley sampler first Unavailable Unavailable Jennie Michelle PharmD Unavailable [phone] Juan Hutchinson MD Unavailable [phone] Encounter Details Date Type Department Care Team (Late st Contact Info) Description 12/29/2023 Lab Requisition [facility] HLA Lab [address] [place] [phone] Pedro Kline MD [address] [facility] [address] [place] [address] Cardiomyopathy, unspecified (Multi-HCC) Social History Tobacco Use [...] No 11/26/2023 Housing Stability Vital Sign Answer Om e Recorded Unable to Pay for Housing [...] Description 02/02/2025 1:30 PM EDT Office Visit [facility] Lung Nodule [address] [phone] Alfred Mckeon MD [address] [place] [address] 02/02/2025 2:00 PM EDT Office Visit [facility] Lung Nodule [address] [phone] Yoav Lugo Lung Nod Pul 02/22/2025 2:00 PM EST Office Visit [facility] Neurology [address] [place] [address] Percy Kapoor MD [address] [address] 03/08/2025 1:00 PM EST Office Visit [facility] Dermatology [address] [place] [address] Nelida Ayala MD [address] [place] [address] 03/20/2025 12:00 PM EST Office Visit [facility] Cardiac Subspecialty [address] [phone] Charlie Barry MD [address] [place] [address] 07/12/2025 10:30 AM EDT Appointment [facility] Pulmonary Function Lab [address] [facility] [address] 5th Floor [address] [place] [address] 07/12/2025 11:30 AM EDT Office Visit [facility] [address] [facility] [address] [address] [address]rd [place] [address] Daysi Fink MD [address] [place] [address] Intensive Care Unit/[facility] [address] documented as of this encounter Procedures Procedure [...] Result [facility] [address] [place] [address], documented in this encounter Visit Diagnoses Diagnosis Cardiomyopathy, unspecified Cytomegalovirus infection, 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, unspecified cytomegaloviral infection type documented in this encounter Care Teams Composition Board Press Operator Relationship Specialty Start Date End Date Name, MD Yoandy [address] [place] [address] PCP - General Voice Data Communications Engineer 11/12/23 Glenn Herman MD [address] [place] [address] Referring Physician Cardiology 11/12/23 Ewdard Handley CPhT [facility] 12/31/23 Jennie Michelle, PharmD [address] [place] [address] Pharmacist Pharmacy 01/27/24 Juan Hutchinson MD [address] [place] [address] [place] [address] Attending Physician Cardiology 12/19/24 documented as of this encounter
--- OUTSIDE RECORDS SUMMARY | 2025-01-20 13:07 | XMS_ITS | Clinical Summary ---
Author Organization [facility] Address [address] [facility] [address] [place] [address] Care Team Providers Care Windows Migration Technician Name Role Phone Glenn Herman MD Unavailable [phone] NameYoandy MD Primary Care Provider [phone] Edward Handley lan support specialist Unavailable Unavailable Jennie Michelle PharmD Unavailable Bridger Hernandez MD Unavailable [phone] Allergies Active Allergy Reactions Criticality Noted [...] 's report Asked patient to call his Venetian Blind Machine Operator regarding his increased weight/swelling for further recommendations. Last Assessment & Plan: reports he's up a few pounds from his baseline weight, worsening leg swelling over the last few days. Compliant with Torsemide - taking full dose per 's report Asked patient to call his Venetian Blind Machine Operator regarding his increased weight/swelling for further [...] Type Department Care Team Description 01/18/2025 Telephone [facility] Infectious Disease [address] [facility] [address] [place] [address] Lena Cortes NP 01/10/2025 Refill [facility] Cardiology [address] [facility] [address] [place] [address] Pedro Kline MD Heart transplant recipient 01/03/2025 10:30 AM EDT - 01/03/2025 12:30 PM EDT Surgery [facility] Cardiac Solar Photovoltaic Systems Engineer [address] [place] [address] Luisa Yang MD Coronary angiography [81647 (CPT )] 01/03/2025 10:17 AM EDT - 01/03/2025 4:56 PM EDT Hospital Encounter [facility] Cardiac Solar Photovoltaic Systems Engineer [address] [place] [address] Luisa Yang MD Other cytomegaloviral diseases (Multi-HCC) (Primary Dx); Heart transplant recipient (Multi-HCC) Discharge Disposition: Home or self care 01/03/2025 Travel 01/02/2025 Orders Only [facility] Infectious Disease [address] [facility] [address] [place] [address] Lena Cortes NP 12/28/2024 11:30 AM EDT Office Visit [facility] Pulmonary [address] [address] Daysi Fink MD Chronic cough (Primary Dx); Pulmonary sarcoidosis (Multi-HCC); 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); Cardiac sarcoidosis (HHS-HCC); Dyspnea and respiratory abnormality 12/28/2024 10:16 AM EDT - 12/28/2024 11:59 PM EDT Hospital Encounter [facility] Imaging [address] [place] [address] Cytomegalovirus infection, unspecified cytomegaloviral infection type (Multi-HCC); Tracheal stenosis; Pulmonary sarcoidosis (Multi-HCC) Discharge Disposition: Home or self care 12/28/2024 Travel 12/26/2024 Orders Only [facility] Infectious Disease [address] [address] Lena Cortes, JOSSY Cytomegalovirus (CMV) viremia (Multi-HCC) 12/20/2024 Results Follow-Up [facility] Infectious Disease [address] [phone] Lena Cortes NP 12/19/2024 11:40 AM EDT - 12/19/2024 11:59 PM EDT Hospital Encounter [facility] Radiology [address] [place] [address] Other cytomegaloviral diseases (Multi-HCC); Heart transplant recipient (Multi-HCC) Discharge Disposition: Home or self care 12/19/2024 11:00 AM EDT Office Visit [facility] Cardiac Subspecialty [address] [address] Bridger Hernandez MD Type 2 diabetes mellitus with other specified complication, unspecified whether skilled nursing insulin use (Multi-HCC) (Primary Dx); Other cytomegaloviral diseases (Multi-HCC); Heart transplant recipient (Multi-HCC); Mixed hyperlipidemia ; Prostate cancer screening; Sarcoidosis 12/19/2024 7:36 AM EDT - 12/19/2024 11:39 AM EDT Hospital Encounter [facility] Cardiac Echo [address] [facility] [address] [place] [phone] Other cytomegaloviral diseases (Multi-HCC); Heart transplant recipient (Multi-HCC); Heart transplant rejection (Multi-HCC) Discharge Disposition: Home or self care 12/19/2024 Telephone [facility] Cardiac Subspecialty [address] [phone] Kailyn Hess Appointment; Follow-up 12/19/2024 Travel 12/14/2024 Orders Only [facility] Infectious Disease [address] [address] Lena Cortes NP Heart transplant recipient (Multi-HCC) (Primary Dx); Other cytomegaloviral diseases (Multi-HCC) 12/13/2024 Refill [facility] Infectious Disease [address] [address] Lena Cortes NP Other cytomegaloviral diseases (Multi-HCC) 12/13/2024 Refill [facility] Cardiac Subspecialty [address] [phone] Jose Angel Nunez NP Heart transplant recipient (Multi-HCC) 12/13/2024 Refill [facility] Cardiology [address] [facility] [address] [place] [address] Izaiah Martinez MD Heart transplant recipient (Multi-HCC) 12/13/2024 Refill [facility] Cardiology [address] [place] [phone] Pedro Kline MD Heart transplant recipient (Multi-HCC) 12/13/2024 Refill [facility] Cardiac Subspecialty [address] [phone] Sharon Savage NP Heart transplant recipient (Multi-HCC) 12/02/2024 Telephone [facility] Patient Access 800 [place] [address] , Barrera-Chi 11/21/2024 Telephone [facility] Cardiac Subspecialty [address] [phone] Kailyn Hess Appointment 11/16/2024 Telephone [facility] Cardiac Subspecialty [address] [phone] Kailyn Hess Appointment 11/15/2024 Refill [facility] Cardiology [address] [facility] [address] [place] [address] Pedro Kline MD Heart transplant recipient (Multi-HCC) 11/08/2024 Results Follow-Up [facility] Infectious Disease [address] [phone] Lena Cortes NP 11/07/2024 1:00 PM EDT Office Visit [facility] Infectious Disease [address] [address] Chi Barton MD Other cytomegaloviral diseases (Multi-HCC) (Primary Dx); Immunosuppressed status (Multi-HCC); Heart transplant recipient (Multi-HCC); Preventative health care; Other fatigue; Upper airway cough syndrome 11/07/2024 12:15 PM EDT Office Visit [facility] Cardiac Subspecialty [address] [phone] Jose Angel Nunez NP Heart transplant recipient (Multi-HCC) (Primary Dx); Essential hypertension, benign ; Mixed hyperlipidemia ; Type 2 diabetes mellitus with other specified complication, unspecified whether medical terminologist insulin use (Multi-HCC); Subglottic stenosis; Sarcoidosis; Pulmonary nodules; Other cytomegaloviral diseases (Multi-HCC); Observed seizure-like activity (Multi-HCC) 11/07/2024 Travel 10/25/2024 Telephone [facility] Infectious Disease [address] [phone] Lena Cortes NP 10/25/2024 Telephone [facility] Infectious Disease [address] [place] [address] Chi Barton MD req labs orders 10/24/2024 Telephone [facility] Infectious Disease [address] [facility] [address] [place] [address] Lena Cortes, HUB BORER from Last 3 Months Immunizations Immunization Administration [...] Vaccine Formula 12+ (Deferred: Not available from tea blender - Per pharmacy vaccine is out of [...] place to sleep or slept in a retirement (including now)? No 11/26/2023 Sex and Gender [...] Visit [facility] Lung Nodule 800 [facility] 4th [place] [address] Alfred Mckeon MD [address] [place] [address] 02/02/2025 2:00 PM EDT Office Visit [facility] Lung Nodule [address] [facility] [address]th [place] [phone] Yoav Portillo Lung Nod Pul 02/22/2025 2:00 PM EST Office Visit [facility] Neurology 260 [place] [phone] Percy Kapoor MD [facility] [address] [place] [address] 03/08/2025 1:00 PM EST Office Visit [facility] Dermatology 260 [place] [address] Nelida Ayala MD 800 [place] [address] 03/20/2025 12:00 PM EST Office Visit [facility] Cardiac Subspecialty 8[address] [facility] [address] [place] [phone] Charlie Barry MD 800 [place] [address] 07/12/2025 10:30 AM EDT Appointment [facility] Pulmonary Function Lab 800 [facility] 5th Floor Room [address] [place] [phone] 07/12/2025 11:30 AM EDT Office Visit [facility] Pulmonary 260 [facility] [facility] [address]rd [place] [address] Daysi Fink MD [address] [place] [address] Intensive Care Unit/[facility] [address] Health Maintenance Due Date Last Done Comments [...] this topic Medical Devices Implanted Type Area Financial Foundations Associate Device Identifier Shelf Expiration Date Model / Serial / Lot Field Mechanic/Site Lead-D [employer] Icd-10/02/2022 Implanted:09/05 (Quantity not on file) CHAINSTITCH HEMMER-D ICD Chest [employer] Graft Hemashield Str 10x30 - [id number] Implanted:Qty: 1 on 12/22/2023 at [facility] Graft Right: Axilla GETINGE/MAQUET CARDIOVASCULAR 09/03/2028 [id number] / [id number] / Impella- 024 Implanted:12/05 (Quantity not on [...] mellitus with other specified complication, unspecified whether medical terminologist insulin use (Multi-HCC) PSA TOTAL, SCREEN STAT [...] mellitus with other specified complication, unspecified whether skilled nursing insulin use (Multi-HCC) DOBUTAMINE STRESS ECHO (95354) Routine 12/19/2024 9:38 AM EDT Heart transplant [...] EDT) 01/03/2025 12:1 1 PM EDT Narrative [facility] - 01/03/2025 5:21 PM EDT [facility] Adult Catheterization Lab 800 [place] [address] Right and Left Diagnostic Cardiac Catheterization and Biopsy Report Patient: Margarita Avila, Referring Jose Angel Nunez Physician: Jose Angel Nunez Attending Luisa Richter Physician: : 1955 Primary Care Physician: Procedure 01/03/2025 Fellow: Selene Carrillo, Date: [place] Room: INDICATIONS: Status post heart transplant. PRESENTATION: [...] Procedure Note Luisa Yang MD - 01/03/2025 [facility] Adult Catheterization Lab [address] [place] [address] Right and Left Diagnostic Cardiac Catheterization and [...] CV CARDIAC CATH PROCEDURES Maral l Result [facility] * Tissue Pathology (01/03/2025 11:20 AM EDT) Case Report Surgical Pathology Case: [id number] Authorizing Provider: Jose Angel Nunez NP Collected: 01/03/2025 1120 Ordering Location: [facility] Received: 01/03/2025 1320 Cardiac Solar Photovoltaic Systems Engineer Pathologist: Ramos Kay MD Specimen: Heart, R ventricle Bx post Tx 01/04/2025 4:36 PM EDT [facility] Final Diagnosis A. Heart, [...] show appropriate reactivity. 01/04/2025 4:36 PM EDT [facility] at 1636 EDT Gross [...] toto in A1. Grossed by DANY Wong PA([facility])CM on 01/03/25 at 1:26 PM. 01/04/2025 4:36 PM EDT [facility] Disclaimer The interpretation o [...] show appropriate reactivity. 01/04/2025 4:36 PM EDT [facility] Tissue Heart structure / Unknown 01/03/2025 11:20 AM EDT 01/03/2025 1:20 PM EDT Jose Angel Nunez NP LAB PATHOLOGY ORDERABLES Final Result [facility] [address] [place] [address], * (ABNORMAL) CBC w/ Differential (01/03/2025 11:10 AM EDT) WBC 2.7(L) 4.0 - 11.0 K/uL 01/03/2025 11:41 AM EDT [facility] RBC 3.82(L) 4.20 - 5.90 M/uL 01/03/2025 11:41 AM EDT [facility] Hemoglobin 11.3(L) 13.0 - 17.5 g/dL 01/03/2025 11:41 AM EDT [facility] Hematocrit 33.5(L) 37.0 - 53.0 % 01/03/2025 11:41 AM EDT [facility] MCV 87.7 80.0 - 100.0 fL 01/03/2025 11:41 AM EDT [facility] MCH 29.6 26.0 - 34.0 pg 01/03/2025 11:41 AM [facility] MCHC 33.7 31.0 - 37.0 g/dL 01/03/2025 11:41 AM [facility] RDW-CV 12.8 11.5 - 14.5 % 01/03/2025 11:41 AM [facility] RDW-SD 40.4 35.0 - 51.0 fL 01/03/2025 11:41 AM [facility] Platelets 122(L) 150 - 400 K/uL 01/03/2025 11:41 AM [facility] MPV 9.7 9.1 - 12.4 fL 01/03/2025 11:41 AM [facility] Neutrophil % 65.5 % 01/03/2025 11:41 AM [facility] Lymphocyte % 20.0 % 01/03/2025 11:41 AM [facility] Monocytes % 5.6 % 01/03/2025 11:41 AM [facility] Eosinophils % 5.2 % 01/03/2025 11:41 AM [facility] Basophils % 0.4 % 01/03/2025 11:41 AM [facility] Immature Granulocytes % 3.3 % 01/03/2025 11:41 AM [facility] NRBC % 0.0 0.0 - 0.0 % 01/03/2025 11:41 AM [facility] Neutrophils Absolute 1.77 1.50 - 7.95 K/uL 01/03/2025 11:41 AM [facility] Lymphocytes Absolute 0.54(L) 0.70 - 4.00 K/uL 01/03/2025 11:41 AM [facility] Monocytes Absolute 0.15(L) 0.38 - 0.83 K/uL 01/03/2025 11:41 AM [facility] Eosinophils Absolute 0.14 0.00 - 0.50 K/uL 01/03/2025 11:41 AM [facility] Basophils Absolute 0.01 0.00 - 0.22 K/uL 01/03/2025 11:41 AM [facility] Immature Granulocytes Absolute 0.09 0.00 - 0.10 K/uL 01/03/2025 11:41 AM EDT [facility] NRBC Absolute 0.00 0.00 - 2.00 K/uL 01/03/2025 11:41 AM EDT [facility] Blood Venous blood specimen / Unknown Venipuncture / Unknown 01/03/2025 11:10 AM EDT 01/03/2025 11:34 AM EDT Zeina Maradiaga MD LAB BLOOD ORDERABLES Final Result Performing Organization Address [facility] de Phone Number [facility] [address] [place] [address], [place] * Tacrolimus level (01/03/2025 11:10 AM EDT) Only the most recent of3 resultswithin the time period is included. [facility] Tacrolimus, LC-MS/MS 7.5 3.0 - 20.0 ng/mL 01/03/2025 3:15 PM EDT [facility] Comment:Performed by LC-MS/M S. Reference intervals are based on trough collection. Optimal therapeutic ranges depend on time post-transplant, dosing regimen, organ type, and concomitant immunosuppression therapy. Results should be interpreted in conjunction with physical signs/symptoms of rejection/toxicity. This test was developed and its performance characteristics determined by [facility]. It has not been cleared or approved by the FDA. The laboratory is regulated under CLIA as qualified to perform high-complexity testing. This test is used for clinical purposes. It should not be regarded as investigational or for research. Time of last dose 3:15 PM EDT [facility] Date of last dose 025 3:15 PM EDT [facility] Blood Venous blood specimen / Unknown Venipuncture / Unknown 01/03/2025 11:10 AM EDT 01/03/2025 11:34 AM EDT Zeina Maradiaga MD LAB BLOOD ORDERABLES Final Result Performing Organization Address City/[facility] Co de Phone Number [facility] [address] [place] [address], [place] * (ABNORMAL) CMV Quant DNA, RT-PCR, BLOOD (01/03/2025 11:10 AM EDT) Only the most recent of4 resultswithin the time period is included. Pathologist [facility] CMV DNA Viral Load 130(H) Not Detected IU/mL [facility] 01/03/2025 4:19 PM EDT [facility] Comment:DETECTED CMV DNA Viral Load, log 2.11(H) Not Detected log IU/mL 01/03/2025 4:19 PM EDT [facility] CMV DNA Viral Load, Interp Detected( A) Not Detected [facility] 01/03/2025 4:19 PM EDT [facility] Blood Venous blood specimen / Unknown Venipuncture / Unknown 01/03/2025 11:10 AM EDT 01/03/2025 11:34 AM EDT Narrative [facility] - 01/03/2025 4:19 PM EDT This test was performed using the efw-suhlnity m CMV DNA assay, performed on the [employer] m instrument Lena Cortes NP LAB BLOOD ORDERABLES Fin al Result [facility] [address] [place] [address], * Protime/INR (01/03/2025 11:10 AM EDT) [facility] Protime 12.0 9.7 - 14.0 seconds 01/03/2025 11:55 AM EDT [facility] INR 1.04 See Comment 01/03/2025 11:55 AM EDT [facility] Comment: NORMAL PATIENTS NOT ON ANTICOAGULANTS: INR: 0.9-1.3 RECOMMENDED INR WITH WARFARIN/COUMADIN THERAPY: INR: 2.00-3.00 Deep vein thrombosis Atrial Fibrillation Tissue Prosthetic Valve Stroke Prevention INR:2.50-3.50 Mechanical Prosthetic Valve and Recurrent Systemic Embolism Blood Venous blood specimen / Unknown Venipuncture / Unknown 01/03/2025 11:10 AM EDT 01/03/2025 11:34 AM EDT Zeina Maradiaga MD LAB BLOOD ORDERABLES Final Result [facility] [address] [place] [address], * Magnesium (01/03/2025 11:10 AM EDT) Only the most recent of3 resultswithin the time period is included. Pathologist [facility] Magnesium 1.7 1.6 - 2.6 mg/dL 01/03/2025 12:13 PM EDT [facility] Blood Venous blood specimen / Unknown Venipuncture / Unknown 01/03/2025 11:10 AM EDT 01/03/2025 11:33 AM EDT Zeina Maradiaga MD LAB BLOOD ORDERABLES Final Result Performing Organization Address [facility] de Phone Number [facility] [address] [place] [address], * (ABNORMAL) Comprehensive metabolic panel (01/03/2025 11:10 AM EDT) Only the most recent of3 resultswithin the time period is included. Pathologist [facility] Sodium 145 135 - 146 mmol/L 01/03/2025 12:13 PM EDT [facility] Potassium 4.4 3.6 - 5.2 mmol/L 01/03/2025 12:13 PM EDT [facility] Comment:Specimen hemolyzed r esult may be falsely increased up to 1.0 mmol/L. Chloride 106 98 - 110 mmol/L 01/03/2025 12:13 PM EDT [facility] CO2 (Bicarbonate) 24 20 - 32 mmol/L 01/03/2025 12:13 PM EDT [facility] Anion Gap 15(H) 3 - 14 mmol/L 01/03/2025 12:13 PM EDT [facility] BUN 17 6 - 24 mg/dL 01/03/2025 12:13 PM EDT [facility] Creatinine 0.98 0.55 - 1.30 mg/dL 01/03/2025 12:13 PM EDT [facility] eGFRcr 83 >=60 mL/min/1.7 3m*2 01/03/2025 12:13 PM EDT [facility] Comment:Calculated using CKD -EPI 2020 creatinine equation. Glucose 133(H) 70 - 99 mg/dL 01/03/2025 12:13 PM EDT [facility] Fasting? Yes [facility] 01/03/2025 12:13 PM EDT [facility] Calcium 9.9 8.5 - 10.5 mg/dL 01/03/2025 12:13 PM EDT [facility] AST 24 6 - 42 U/L 01/03/2025 12:13 PM EDT [facility] ALT 9 0 - 55 U/L 01/03/2025 12:13 PM EDT [facility] Alkaline phosphatase 54 30 - 130 U/L 01/03/2025 12:13 PM EDT [facility] Protein, total 7.0 6.0 - 8.4 g/dL 01/03/2025 12:13 PM EDT [facility] Albumin 4.6 3.2 - 5.0 g/dL 01/03/2025 12:13 PM EDT [facility] Bilirubin, total 0.5 0.2 - 1.2 mg/dL 01/03/2025 12:13 PM EDT [facility] Blood Venous blood specimen / Unknown Venipuncture / Unknown 01/03/2025 11:10 AM EDT 01/03/2025 11:33 AM EDT us Zeina Maradiaga MD LAB BLOOD ORDERABLES Final Result [facility] [address] [place] [address], [place] * CT HIGH RESOLUTION CHEST WO [...] GENDER: Male ORD PHYS: DAYSI FINK LOCATION: [facility] 12/28/2024 10:46 AM EDT [id number] (CT HIGH RESOLUTION CHEST WO CONTRAST) [id number] Provided History: Pulmonary sarcoidosis and tracheal stenosis [...] GENDER: Male ORD PHYS: DAYSI FINK LOCATION: [facility] 12/28/2024 10:46 AM EDT [id number] (CT HIGH RESOLUTION CHEST WO CONTRAST) [id number] Provided History: Pulmonary sarcoidosis and tracheal stenosis [...] GENDER: Male ORD PHYS: BRIDGER DRAKELATI LOCATION: [facility] 12/19/2024 12:44 PM EDT IMG36 (XR CHEST 2 VIEWS) [id number] REASON FOR STUDY: cardiac transplantation TECHNIQUE: PA and lateral views of the chest Comparison: 10/03/2024 FINDINGS: The heart and sternal wires are unchanged. There is no pneumothorax or congestion or focal consolidation or pleural effusion. No new mediastinal widening. No acute bony changes. [place] overlie the upper lateral right hemithorax as previously. Procedure Note Denisha Mckeon MD - 12/19/2024 NAME: MATTHEW AVILA : 1955 AGE: 69 years GENDER: Male ORD PHYS: BRIDGER DRAKELATI LOCATION: [facility] 12/19/2024 12:44 PM EDT IMG36 (XR CHEST 2 VIEWS) [id number] REASON FOR STUDY: cardiac transplantation TECHNIQUE: PA and lateral views of the chest Comparison: 10/03/2024 FINDINGS: The heart and sternal wires are unchanged. There is nopneumothorax or congestion or focal consolidation or pleural effusion. Nonew mediastinal widening. No acute bony changes. [place] overlie the upperlateral right hemithorax as previously. [...] - 12/20/2024 6:45 AM EDT Performed at: [facility] [id number] Streetcar Conductor: Iram Zambarno MD, Phone: [phone] us Bridger Hernandez MD LAB BLOOD ORDERABLES Final Resu lt Performing Organization Address [facility] Co de Phone Number [facility] [address] [place] [address], [facility] 1 * PSA Total, Screen (Male patients only) (12/19/2024 12:15 PM EDT) PSA TOTAL 2.7 0.0 - 4.0 ng/mL [facility] 1 Comment: [place] ECLIA methodology. According to the [place] [employer], Serum PSA should decrease and [...] - 12/20/2024 7:45 AM EDT Performed at: [address] [place] [id number] Streetcar Conductor: Iram Zambrano MD, Phone: [phone] us Bridger Hernandez MD LAB BLOOD ORDERABLES Final Resu lt Performing Organization Address [facility] Co de Phone Number [facility] [address] [place] [address], [facility] 1 * (ABNORMAL) CBC and differential [...] 12/19/2024 3:15 PM EDT Performed at: - [address] [id number] Streetcar Conductor: Jim Henning [facility], Phone: [phone] us Bridger Hernandez MD LAB BLOOD ORDERABLES Final Resu lt [facility] [address] [place] [address], [place] [facility] 1 * Uric Acid (12/19/2024 [...] - 12/19/2024 3:15 PM EDT Performed at: [address] [place] [id number] Streetcar Conductor: Jim Henning [facility], Phone: [phone] us Bridger Hernandez MD LAB BLOOD ORDERABLES Final Resu lt Performing Organization Address [facility] Co de Phone Number [facility] [address] [place] [address], [facility] 1 * Phosphorus (12/19/2024 12:15 PM EDT) Only the most recent of2 resultswithin the time period is included. Pathologist [facility] Phosphorus 3.9 2.4 - 4.9 mg/dL [facility] 1 Blood Venous blood specimen / Unknown 12/19/2024 12:15 PM EDT 12/19/2024 Narrative [facility] - 12/19/2024 3:15 PM EDT Performed at: [address] [place] [id number] Streetcar Conductor: Jim Henning [facility], Phone: [phone] us Bridger Hernandez MD LAB BLOOD ORDERABLES Final Resu lt Performing Organization Address [facility]/ZIP Co de Phone Number [facility] [address] [place] [address], [facility] 1 * (ABNORMAL) Lactate dehydrogenase (12/19/2024 12:15 PM EDT) Only the most recent of2 resultswithin the time period is included. Pathologist [facility] [place] LDH 369(H) 110 - 250 U/L [facility] 1 Blood Venous blood specimen / Unknown 12/19/2024 12:15 PM EDT 12/19/2024 Narrative [facility] - 12/19/2024 3:15 PM EDT Performed at: [address] [place] [id number] Streetcar Conductor: Jim Henning [facility], Phone: [phone] Bridger Hernandez MD LAB BLOOD ORDERABLES Final Resu lt Performing Organization Address [facility] Co de Phone Number [facility] [address] [place] [address], [facility] 1 * (ABNORMAL) Hemoglobin A1c (12/19/2024 12:15 PM EDT) [facility] HgbA1C 6.5(H) 4.8 - 5.6 % [facility] 1 Comment: Prediabetes: 5.7 - 6.4 Diabetes: >6.4 Glycemic control for adults with diabetes: <7.0 Blood Venous blood specimen / Unknown 12/19/2024 12:15 PM EDT 12/19/2024 Narrative [facility] - 12/20/2024 4:05 AM EDT Performed at: [address] [place] [id number] Streetcar Conductor: Iram Zambrano MD, Phone: [phone] Bridger Hernandez MD LAB BLOOD ORDERABLES Final Resu lt Performing Organization Address City/[facility]/ZIP Co de Phone Number [facility] [address] [place] [address], [facility] 1 * CK (aka CPK) (12/19/2024 12:15 PM EDT) Only the most recent of2 resultswithin the time period is included. Pathologist [facility] CK Total 41 41 - 331 U/L [facility] 1 Blood Venous blood specimen / Unknown 12/19/2024 12:15 PM EDT 12/19/2024 Narrative [facility] - 12/20/2024 7:45 AM EDT Performed at: [address] [id number] Streetcar Conductor: Iram Zambrano MD, Phone: [phone] Bridger Hernandez MD LAB BLOOD ORDERABLES Final Resu lt Performing Organization Address City/[facility]/ZIP Co de Phone Number [facility] [address] [place] [address], [facility] 1 * Hepatic function panel (12/19/2024 12:15 PM EDT) Only the most recent of2 resultswithin the time period is included. Bilirubin, Direct 0.2 0.0 - 0.5 mg/dL [facility] 1 Blood Venous blood specimen / Unknown 12/19/2024 12:15 PM EDT 12/19/2024 Narrative [facility] - 12/19/2024 3:15 PM EDT Performed at: [address] [place] [address] [id number] Streetcar Conductor: Jim Henning [facility], Phone: [phone] us Bridger Hernandez MD LAB BLOOD ORDERABLES Final Resu lt Performing Organization Address City/[facility]/ZIP Co de Phone Number [facility] [address] [place] [address], [facility] 1 * (ABNORMAL) Lipid panel (12/19/2024 [...] AM EDT Performed at: 01 - [facility] [address] [id number] Streetcar Conductor: Iram Zambrano MD, Phone: [phone] us Bridger Hernandez MD LAB BLOOD ORDERABLES Final Resu lt [facility] [address] [place] [address], [facility] 1 * ECG 12 lead [[facility]: Epiphany] Normal (12/19/2024 10:45 AM EDT) 12/19/2024 10:4 5 AM EDT Narrative [facility] STRESS/ECG EPIPHANY CARDIOSERVER - 12/19/2024 5:05 PM EDT [facility] Test Date: 2024-12-19 Pat Name: MATTHEW AVILA Department: [facility] Room: Gender: Male Supplemental Nurse: : 1955 Requested By: BRIDGER HERNANDEZ Order Number: [id number] Reading MD: Lacho Bauer Measurements Intervals [place] Rate: 91 P: 59 WY: 145 QRS: 40 QRSD: 77 T: 24 QT: 339 QTc: 417 Interpretive Statements Sinus rhythm Probable anteroseptal infarct, old Compared to ECG 12/31/2023 07:37:42 Sinus rhythm now more clearly present Electronically Signed On 12-19-2024 17:05:32 EDT by Lacho Bauer us Bridger Hernandez MD ECG ORDERABLES Final Result [facility] STRESS/ECG EPIPHANY CARDIOSERVER * DOBUTAMINE STRESS ECHO (55036) (12/19/2024 9:38 AM EDT) 12/19/2024 8:40 AM EDT Narrative [facility] PACS/REPORTING KRZYSZTOF ISCV - 12/19/2024 11:15 AM EDT [facility] [address] [place] [address] Stress Echocardiogram Name: MATTHEW TORO Study Date: 12/19/2024 08:40 AM : 1955 Gender: Male Age: 69 yrs Ethnicity: OTHER Patient Location: [facility] Referring Physician: JOSE ANGEL NUNEZ Performed By: Osiel Michelle Ordering Physician: JOSE ANGEL NUNEZ Reason For Study: cardiac transplantation Height: 68 in Weight: 135 lb BSA: 1.7 m2 BP: 120/58 mmHg CPT/Quality/Location Stress Echo (29765). Stress Echo interp & report (95038). Supply - dobutamine. Location performed: Department. The [...] Russ MD - 12/19/2024 [facility] [address] [place] [address] StressEchocardiogram Name: MATTHEW TORO Study Date: 508:40 AM : 1955 Gender: Male Age: 69 yrs Ethnicity: OTHER Patient Location: [facility] Referring Physician: JOSE ANGEL NUNEZ Performed By: Osiel Michelle Ordering Physician: JOSE ANGEL NUNEZ Reason For Study: cardiac transplantation Height: 68 in Weight: 135 lb BSA: 1.7 m2 BP:120/58 mmHg CPT/Quality/Location Stress Echo (48853). Stress Echo interp & report (93457). Supply -dobutamine. Location performed: Department. The quality [...] Nunez NP CV ECHO PROCEDURES Final Result [facility] PACS/REPORTING KRZYSZTOF ISCV * ALLOMAP HEART (11/07/2024 2:20 PM EDT) Pathologist [facility] [place] ALLOMAP SCORE - HEART 32 11/09/2024 1:01 AM EDT [facility] ([facility]) 95% CONFIDENCE INTERVAL 95% CI:30.1-3 4.8 11/09/2024 1:01 AM EDT [facility] ([place]) NEGATIVE PREDICTIVE VALUE 99.0% 11/09/2024 1:01 AM EDT [facility] ([place]) POSITIVE PREDICTIVE VALUE 2.9% 11/09/2024 1:01 AM EDT [facility] ([place]) TIME POST TX 0y 10m 12d 11/09/2024 1:01 AM EDT [facility] ([place]) TEST COMMENTS (AMH) <None Specified > 11/09/2024 1:01 AM EDT [facility] ([place]) NOTES (AMH) See Note 11/09/2024 1:01 AM EDT [facility] ([place]) Comment: Interpretation of AlloMap score should be made using the information available at the following link: http://www.allomap.com AlloMap testing performed at [facility]. (CLIA No: [id number], CAP No: [id number]) Streetcar Conductor: Axel Cartagena M.D. These AlloMap test results are displayed here for your convenience. The pdf AlloMap report is the official report. The following data chamorro on the Results Details page are intentionally left empty as they are not applicable to AlloMap testing: Abnormal Units TX DATE 4 11/09/2024 1:01 AM EDT [facility] ([place]) [facility] ORDER ID [id number] 11/09/2024 1:01 AM EDT [facility] ([place]) CENTER ORDER ID [id number] 11/09/2024 1:01 AM EDT [facility] ([place]) WP ORDER ID <None Specified > 11/09/2024 1:01 AM EDT [facility] ([place]) Blood Venous blood specimen / Unknown Venipuncture / Unknown 11/07/2024 2:20 PM EDT 11/07/2024 2:48 PM EDT us Jose Angel Nunez [facility] LAB BLOOD ORDERABLES Final Resu lt [facility] ([place]) [address] [place], [place] [id number] * ALLOSURE HEART (11/07/2024 2:20 PM EDT) ALLOSURE SCORE < 0.04 % 11/09/2024 7:45 PM EDT [facility] ([place]) TIME POST TX 0y 10m 12d 11/09/2024 7:45 PM EDT [facility] ([place]) TEST COMMENTS (ASHK) <None Specified> 11/09/2024 7:45 PM EDT [facility] ([place]) NOTES (ASHK) See Note 11/09/2024 7:45 PM EDT [facility] ([place]) Comment: INTERPRETATION OF RESULTS Instructions for Interpreting [...] more information about AlloSure Heart, please visit [email or web address]. (1)Nik et al., J Heart Lung Transplant 2023; (2)Nik et al., Am J Transplant 2019; (3)Data on file for patients <15 years old. The AlloSure Heart Donor-Derived Cell-Free DNA Test was developed and its performance characteristics were determined by the 2,10E[facility] laboratory. The test has not been cleared or approved by the U.S. Food and Drug Administration. The laboratory is certified under the Clinical Laboratory Improvement Amendments of 1988 (CLIA '88) and accredited by the College of [place] [employer] (CAP) as qualified to perform high complexity clinical laboratory testing. The contents of this report are confidential and intended solely for use by authorized personnel. AlloSure testing performed at [facility]. [address] [place] [id number] (CLIA No: [id number], CAP No: [id number]) Streetcar Conductor: Axel Cartagena M.D. [employer] [employer] Heart 2024 7:45 PM EDT [facility] ([place]) CLIENT SPECIMEN ID <None Specified> 11/09/2024 7:45 PM EDT [facility] ([place]) TX DATE 12/28/2023 11/09/2024 7:45 PM EDT [facility] ([place]) DONOR RELATION Unrelated 11/09/2024 7:45 PM EDT [facility] ([place]) [facility] ORDER ID [id number] 11/09/2024 7:45 PM EDT [facility] ([place]) CENTER ORDER ID [id number] 11/09/2024 7:45 PM EDT [facility] ([place]) WP ORDER ID <None Specified> 11/09/2024 7:45 PM EDT [facility] ([place]) Blood Venous blood specimen / Unknown Venipuncture / Unknown 11/07/2024 2:20 PM EDT 11/07/2024 2:49 PM EDT us Jose Angel Nunez NP LAB BLOOD ORDERABLES Final Resu lt [facility] ([place]) [address] [place] [address] * IgG (11/07/2024 2:16 PM EDT) IgG 760 603 - 1,613 mg/dL [facility] 1 Blood Venous blood specimen / Unknown 11/07/2024 2:16 PM EDT 11/07/2024 Narrative [facility] - 11/08/2024 6:15 AM EDT Performed at: 01 - [facility] [address] [id number] Streetcar Conductor: Iram Zambrano MD, Phone: [phone] Lena Cortes NP LAB BLOOD ORDERABLES Fin al Result Performing Organization Address City/[facility]/ZIP Co de Phone Number [facility] [address] [place] [address], [facility] 1 * Hepatitis C Virus RNA, Quantitative, RT-PCR (01/26/2024 10:30 AM EDT) Pathologist [facility] HCV RNA by RT-PCR [facility] 01/27/2024 2:18 PM EDT [facility] Comment:Not Detected HCV RNA Viral Load, log [facility] 01/27/2024 2:18 PM EDT [facility] Comment:Not Detected HCV RNA Viral Load, Interp Not Detected Not Detected [facility] 01/27/2024 2:18 PM EDT [facility] Blood Venous blood specimen / Unknown Venipuncture / Unknown 01/26/2024 10:30 AM EDT 01/26/2024 11:13 AM EDT Narrative [facility] - 01/27/2024 2:18 PM EDT This test was performed using the efw-suhlnity m HCV assay, performed on the [employer] instrument. The lower limit of quantification is 12 IU/mL. Chi Barton MD LAB BLOOD ORDERABLES Final Resu lt [facility] [address] [place] [address], * Albumin, Urine, Random (Microalbumin Random, Including Creatinine) (11/26/2023 1:50 PM EDT) Albumin, urine (INT/EXT) <1.2 mg/dL 11/26/2023 2:44 PM EDT [facility] Creatinine, urine, random (INT/EXT) 47.40 24.00 - 392.00 mg/dL 11/26/2023 2:44 PM EDT [facility] Albumin/Creatini ne ratio 11/26/2023 2:44 PM EDT [facility] Comment:Unable to calculate due to below or above Analytical Measurement Range. Urine Urine specimen / Unknown Non-blood Collection / Unknown 11/26/2023 1:50 PM EDT 11/26/2023 1:50 PM EDT us Pedro Kline MD LAB URINE ORDERABLES Maral garcia Result [facility] [address] [place] [address], from Last 3 Months or Most Recently Relevant to Health Maintenance Insurance MEDICARE PART A [place] [id number] MEDICARE PART A AND B HEALTH [place]AF[place]Y [place] [address] Advance Directives Documents on File Type Date Recorded Patient Project Account Manager Expl anation Advance Directives and Living Will 11/25/2023 Lloyd Ahmadi Health Care Proxy * Full Code (Latest Code Status on File) Date Activated Date Inactivated Comments 11/24/2023 12:16 AM 01/20/2024 1:17 PM Healthcare Agents on File Name Relationship Healthcare Agent Relationship Communication Aleisha Ahmadi Spouse Health Care Agent [email or web address] Lloyd Mandel Son First Alte rnate Health Care Agent Care Teams Windows Migration Technician Relationship Specialty Start Date End Date Name, MD Yoandy [address] [place] [address] PCP - General Infectious Waste Technician 11/12/23 Glenn Herman MD [address] [place] [address] Referring Physician Cardiology 11/12/23 Edward Handley CPhT Supplemental Nurse Pharmacy 12/31/23 Jennie Michelle, PharmD [address] [place] [address] Pharmacist Pharmacy 01/27/24 Bridger Hernandez MD [address] [facility] [address] [place] [phone] Attending Physician Cardiology 12/19/24
--- OUTSIDE RECORDS SUMMARY | 2025-01-20 13:07 | XMS_ITS | Encounter Summary ---
Author Organization [employer] Address [address] [place] [address] Care Team Providers Care Field Mechanic Name Role Phone Name, Yoandy LUGO Primary Care Provider [phone] Name, Yoandy LUGO Primary Care Provider [phone] Encounter Details Date Type Department Care Team (Late st Contact Info) Description 03/21/2022 Orders Only [facility] MEDICINE [address] [place] [address] Coby Flores RN Social History Tobacco Use [...] Description 02/20/2025 10:00 AM EST Office Visit [facility] MEDICINE [address] [place] [address] Name, MD Yoandy [address] [place] [address] documented as of this encounter Procedures Procedure [...] equal to 5OO mg/dL Cholesterol 154 mg/dL [facility] Comment:Desirable Cholestero l: less than 200 mg/dLBorderline High Cholesterol: 200-239 mg/dLHigh Cholesterol: greater than 239 mg/dL LDL Cholesterol Calculated 104 mg/dl [facility] Comment:Desirable LDL: less than 100 mg/dLNear Optimal/Above Optimal LDL: 110- 129 mg/dLBorderline High LDL: 130-159 mg/dLHigh LDL: 160-189 mg/dLVery High LDL: greater than or equal to 190 mg/dL HDL Cholesterol 34 mg/dL [facility] Comment:Desirable HDL: great er than 40 mg/dL Note: This HDL assay may give artificially low results in patients with liver disease. 06/27/2022 9:53 AM EDT 06/27/2022 9:53 AM EDT [facility] [place] External Provider LAB BLO OD ORDERABLES Final Result [facility] [address] [place] [address] [phone] * (ABNORMAL) Basic Metabolic Panel (06/27/2022 9:53 AM EDT) Sodium 143 135 - 145 mmol/L [facility] Potassium 4.6 3.3 - 5.1 mmol/L [facility] Chloride 108 96 - 108 mmol/L [facility] Carbon Dioxide 26 22 - 29 mmol/L [facility] Anion Gap 14 12 - 20 [facility] Urea Nitrogen (BUN) 13 9 - 16 mg/dL [facility] Creatinine, Serum 1.02 0.5 - 1.4 mg/dL [facility] Estimated Glomerular Filt Rate >60 [facility] Comment:NOTE: For -Am erican individuals, multiply the result by 1.210.Chronic Kidney Disease: Estimated GFR < 60 mL/min/1.34w7Qotvma Kidney Disease: Estimated GFR < 15 mL/min/1.73m2 Glucose 141(H) 60 - 115 mg/dL [facility] Calcium 9.4 8.4 - 10.2 mg/dL [facility] 06/27/2022 9:53 AM EDT 06/27/2022 9:53 AM EDT [facility] [place] External Provider LAB BLO OD ORDERABLES Final Result Performing Organization Address [facility] Co de Phone Number [facility] [address] [place] [phone] * Hepatic Function Panel (06/27/2022 9:53 AM EDT) Bilirubin, Total 1.0 0.0 - 1.0 mg/dL [facility] Bilirubin, Direct 0.3 0.0 - 0.5 mg/dL [facility] Aspartate Amino Transferase 19 5 - 37 U/L [facility] Alanine Aminotransferase 24 0 - 40 U/L [facility] Total Protein 6.7 6.5 - 8.0 g/dL [facility] Albumin Level 4.2 3.5 - 5.0 g/dL [facility] Alkaline Phosphatase 61 39 - 117 U/L [facility] 06/27/2022 9:53 AM EDT 06/27/2022 9:53 AM EDT [facility] [place] External Provider LAB BLO OD ORDERABLES Final Result Performing Organization Address [facility] de Phone Number [facility] [address] [place] [phone] * (ABNORMAL) B Type Natriuretic Peptide (BNP) (06/27/2022 9:53 AM EDT) B Type Natriuretic Peptide 332(H) <100 pg/mL [facility] Comment:For those patients w ho are being treated with Natrecor(nesiritide, recombinant BNP), BNP testing should beperformed at least two hours post treatment in order toensure that only endogenous levels of BNP are detected. 06/27/2022 9:53 AM EDT 06/27/2022 9:53 AM EDT us [facility] External Provider LAB BLO OD ORDERABLES Final Result [facility] [address] [place] [address] [phone] documented in this encounter Visit Diagnoses Not on filedocumented in this encounter Care Teams Field Mechanic Relationship Specialty Start Date End Date NameYoandy MD [address] [place] [address] PCP - General Family Medicine 01/18/21 06/04/23 Name, MD Yoandy [address] [place] [address] PCP - General Internal Medicine 10/19/23 [facility] 01/19/24 documented as of this encounter
--- OUTSIDE RECORDS SUMMARY | 2025-01-20 13:07 | XMS_ITS | Encounter Summary ---
Author Organization [facility] Address [address] [facility] [address] [place] [address] Care Team Providers Care Solution Specialist Name Role Phone Glenn Herman MD Unavailable [phone] Yaondy Tillman MD Primary Care Provider Edward Handley change management expert Unavailable Unavailable Jennie Michelle PharmD Unavailable Juan Hutchinson MD Unavailable [phone] Reason for Visit * Reason Comments Med Change Request Encounter Details Date Type Department Care Team (Late st Contact Info) Description 03/17/2024 Refill [facility] Cardiac Subspecialty [address] [facility] [address] [place] [address] Charlie Barry MD [address] [place] [address] 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) Social History [...] - 03/17/2024 4:02 PM EST Filled at [facility] documented in this encounter Plan of Treatment Upcoming Encounters Date Type Department Care Team (Late st Contact Info) Description 02/02/2025 1:30 PM EDT Office Visit [facility] Lung Nodule [address] [address] Aflred Mckeon MD [address] [place] [address] 02/02/2025 2:00 PM EDT Office Visit [facility] Lung Nodule [address] [address] Yoav Portillo Lung Nod Pul 02/22/2025 2:00 PM EST Office Visit [facility] Neurology [address] [place] [address] Percy Kapoor MD [facility] [address] [place] [address] 03/08/2025 1:00 PM EST Office Visit [facility] Dermatology [address] [place] [address] Nelida Ayala MD [address] [place] [address] 03/20/2025 12:00 PM EST Office Visit [facility] Cardiac Subspecialty [address] [facility] [address] [place] [phone] Charlie Barry MD [address] [place] [address] 07/12/2025 10:30 AM EDT Appointment [facility] Pulmonary Function Lab [address] [facility] [address] [facility] 5th Floor Room [address] [place] [phone] 07/12/2025 11:30 AM EDT Office Visit [facility] Pulmonary [address] [facility] [address] [facility] [address] [place] [phone] Daysi Fink MD [address] [place] [address] Intensive Care Unit/[facility] [address] documented as of this encounter Visit Diagnoses Diagnosis Heart replaced by transplant Cytomegalovirus infection, 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, unspecified cytomegaloviral infection type documented in this encounter Care Teams Solution Specialist Relationship Specialty Start Date End Date Name, MD Yonady [address] [place] [address] PCP - General Assistant Professor Of Dietetics 11/12/23 Glenn Herman MD [address] [place] [address] Referring Physician Cardiology 11/12/23 Edward Handley, Juan Auto Machinist Pharmacy 12/31/23 Jennie Michelle, PharmD [address] [place] [address] Pharmacist Pharmacy 01/27/24 Juan Hutchinson MD [address] [place] [address] [place] [address] Attending Physician Cardiology 12/19/24 documented as of this encounter
--- OUTSIDE RECORDS SUMMARY | 2025-01-20 13:07 | XMS_ITS | Encounter Summary ---
Author Organization [facility] Address 800 [facility] [address] [place] [address] Care Team Providers Care Animal Caretaker Supervisor Name Role Phone Glenn Herman MD Unavailable [phone] Name, Yoandy LUGO Primary Care Provider [phone] Edward Handley shank tapper Unavailable Unavailable Jennie Michelle PharmD Unavailable Juan Hutchinson MD Unavailable [phone] Encounter Details Date Type Department Care Team (Late st Contact Info) Description 01/18/2025 Telephone [facility] Infectious Disease [address] [facility] [address] [place] [address] Lena Cortes, LABORATORY MECHANICAL TECHNICIAN [address] [place] [address] Social History Tobacco Use Types [...] Author Yes 11/26/2023 11:17 AM EDT Bethany Wasihngton RN * Do you have serious difficulty [...] EDT Heart ID Through the aide of German interpretor Loida #[id number] Spoke with Mrs. Avila to remind her [...] 02/02/2025 1:30 PM EDT Office Visit [facility] Lung Nodule [address] [phone] Alfred Mckeon MD [address] [place] [address] 02/02/2025 2:00 PM EDT Office Visit [facility] Lung Nodule [address] [phone] Yoav Lugo Lung Nod Pul 02/22/2025 2:00 PM EST Office Visit [facility] Neurology [address] [place] [address] Percy Kapoor MD [address] [place] [address] 03/08/2025 1:00 PM EST Office Visit [facility] Dermatology [address] [place] [address] Nelida Ayala MD [address] [place] [address] 03/20/2025 12:00 PM EST Office Visit [facility] Cardiac Subspecialty [address] [facility] [address] [place] [phone] Cahrlie Barry MD [address] [place] [address] 07/12/2025 10:30 AM EDT Appointment [facility] Pulmonary Function Lab [address] [facility] [address] 5th Floor Room [address] [place] [phone] 07/12/2025 11:30 AM EDT Office Visit [facility] Pulmonary [address] [facility] [address] 3rd [place] [phone] Daysi Fink MD [address] [place] [address] Intensive Care Unit/[facility] [address] documented as of this encounter Visit Diagnoses Not on filedocumented in this encounter Care Teams Animal Caretaker Supervisor Relationship Specialty Start Date End Date Name, MD Yoandy [address] [place] [address] PCP - General Corporate Travel Expert 11/12/23 Glenn Herman MD [address] [place] [address] Referring Physician Cardiology 11/12/23 Edward Handley, shank tapper Slot Key Person Pharmacy 12/31/23 Jennie Michelle, PharmD [address] [place] [phone] Pharmacist Pharmacy 01/27/24 Juan Hutchinson MD [address] [place] [address] [place] [phone] Attending Physician Cardiology 12/19/24 documented as of this encounter
--- OUTSIDE RECORDS SUMMARY | 2025-01-20 13:07 | XMS_ITS | Encounter Summary ---
Author Organization [facility] Address [address] [facility] [address] [place] [address] Care Team Providers Care Casino Worker Name Role Phone Glenn Herman MD Unavailable Name, Yoandy LUGO Primary Care Provider Edward Handley research phlebotomist Unavailable Unavailable Jennie Michelle PharmD Unavailable [phone] Juan Hutchinson MD Unavailable [phone] Encounter Details Date Type Department Care Team (Late st Contact Info) Description 12/25/2023 Lab Requisition [facility] HLA Lab 800 [place] [phone] Pedro Kline MD [address] [facility] [address] [place] [address] Cardiomyopathy, unspecified (Multi-HCC) Social History Tobacco Use [...] Description 02/02/2025 1:30 PM EDT Office Visit [facility] Lung Nodule [address] [phone] Alfred Mckeon MD [address] [place] [address] 02/02/2025 2:00 PM EDT Office Visit [facility] Lung Nodule [address] [phone] Yoav Lugo Lung Nod Pul 02/22/2025 2:00 PM EST Office Visit [facility] Neurology [address] [place] [address] Percy Kapoor MD [address] [address] 03/08/2025 1:00 PM EST Office Visit [facility] Dermatology 260 [place] [address] Nelida Ayala MD [address] [place] [address] 03/20/2025 12:00 PM EST Office Visit [facility] Cardiac Subspecialty [address] [phone] Charlie Barry MD 800 [place] [address] 07/12/2025 10:30 AM EDT Appointment [facility] Pulmonary Function Lab [address] [facility] [address] 5th Floor Room 511 [place] [address] 07/12/2025 11:30 AM EDT Office Visit [facility] Pulmonary 260 [facility] [address] 3rd [place] [address] Daysi Fink MD [address] [place] [address] Intensive Care Unit/[facility] [address] documented as of this encounter Procedures Procedure Name Priority Date/Time Associated Diagnosis Comments HLA CONSULTATION Routine 12/25/2023 8:41 AM EDT Cardiomyopathy, unspecified (Multi-HCC) documented in this encounter Results * HLA Consultation (12/25/2023 8:41 AM EDT) PDF Attached See PDF Document 12/26/2023 3:15 PM EDT [facility] Blood Venous blood specimen / Unknown 12/25/2023 8:41 AM EDT 12/25/2023 7:39 PM EDT us Pedro Kline MD LAB BLOOD ORDERABLES Maral l Result [facility] HLA LAB 800 [place] [address], documented in this encounter Visit Diagnoses Diagnosis Cardiomyopathy, unspecified Cytomegalovirus infection, 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, unspecified cytomegaloviral infection type documented in this encounter Care Teams Casino Worker Relationship Specialty Start Date End Date Name, MD Yoandy [address] [place] [address] PCP - General Wire Frame Dipper 11/12/23 Glenn Herman MD [address] [place] [address] Referring Physician Cardiology 11/12/23 Edward Handley, research phlebotomist [facility] 12/31/23 Jennie Michelle, PharmD 800 [place] [address] Pharmacist Pharmacy 01/27/24 Juan Hutchinson MD [address] [facility] [address] [place] [address] Attending Physician Cardiology 12/19/24 documented as of this encounter
--- OUTSIDE RECORDS SUMMARY | 2025-01-20 13:07 | XMS_ITS | Encounter Summary ---
Author Organization [employer] Address [address] [facility] 7t [place] [address] Care Team Providers Care Pick Out Hand Name Role Phone Name, Yoandy LUGO Primary Care Provider [phone] Name, Yoandy LUGO Primary Care Provider [phone] Reason for Visit * Reason Onset Date Comments FYI 10/01/2022 Encounter Details Date Type Department Care Team ([facility] st Contact Info) Description 10/01/[address] [facility] MEDICINE 230 [place], [place] [phone] Name, MD Yoandy 230 [place] [address] FYI Social History Tobacco Use Types Packs/Day [...] 10/01/2022 3:26 PM EDT Tc from spouse [facility] facility that patient during their vacation in [place] had two Heart Attacks and is currently hospitalized since 09/15/2022 at the [facility] documented in this encounter Plan of Treatment Upcoming Encounters Date Type Department Care Team (Late st Contact Info) Description 02/20/2025 10:00 AM EST Office Visit [facility] MEDICINE [address] [place] [address] Name, MD Yoandy [address] [place] [address] documented as of this encounter Visit Diagnoses Not on filedocumented in this encounter Care Teams Pick Out Hand Relationship Specialty Start Date End Date Name, MD Yoandy [address] [place] [address] PCP - General Family Medicine 01/18/21 06/04/23 Name, MD Yoandy [address] [place] [address] PCP - General Internal Medicine 10/19/23 [facility] 01/19/24 documented as of this encounter
[2025-01-20 13:40] LABS: Alanine Aminotransferase 12 U/L (0-40); Albumin Level 4.2 g/dL (3.5-5.0); Alkaline Phosphatase 49 U/L (39-117); Anion Gap 11 (12-20); Aspartate Amino Transferase 14 U/L (5-37); Blood Urea Nitrogen 13 mg/dL (9-16); Calcium 9.0 mg/dL (8.4-10.2); Carbon Dioxide 28 mmol/L (22-29); Chloride 111 mmol/L (96-108); Estimated Glomerular Filt Rate > 60; Potassium 4.5 mmol/L (3.3-5.1); Sodium 145 mmol/L (135-145); Total Protein 6.2 g/dL (6.5-8.0)
[2025-01-20 15:06] LABS: Band Neutrophils Percent 4 % (3-5); Eosinophils Percent Manual 1 % (0-4); Lymphocytes Absolute Manual 0.5 X10*3/uL (1.2-4.9); Lymphocytes Percent Manual 18 % (20-40); Monocytes Absolute Manual 0.5 X10*3/uL (0.1-1.2); Monocytes Percent Manual 17 % (2-11); Neutrophils Absolute Manual 1.7 X10*3/uL (2.0-8.3); Neutrophils Percent Manual 60 % (45-73)
[2025-01-20 15:07] LABS: Hypochromasia 1+ (5-14) /OIF; RBC Morphology NOTED
[2025-01-21 13:33] LABS: CMV DNA Qn PCR NOT DETECTED Log IU/mL (NOT DETECTED)
== END 2025-01-20 10:42 | disposition home or self-care (01) ==
LOC: HO.LABR 10:41
PROVIDERS: PCP Internal Medicine Geriatric Medicine; Visit Provider Nurse Practitioner Family
DX: B25.9 Cytomegaloviral disease, unspecified (principal)
CPT/HCPCS: 36415; 80053; 85007; 85027; 87497

== ENCOUNTER 2025-01-27 12:20 | Outpatient (REF) | payer MEDICARE, SELFPAY ==
[2025-01-27 12:40] LABS: MANUAL DIFF FLAG NO
[2025-01-27 13:44] LABS: Hematocrit 34.6 % (42.0-52.0); Hemoglobin 11.3 g/dl (14.0-18.0); Imm Gran Abs Auto 0.08 X10*3/uL (0.00-0.03); Imm Gran Pct Auto 2.4 % (0.0-0.4); Lymphocytes Absolute Auto 0.6 X10*3/uL (1.2-4.9); Mean Corpuscular HGB Conc 32.7 g/dl (31.0-36.0); Mean Corpuscular Hemoglobin 28.3 pg (27.0-33.0); Mean Corpuscular Volume 86.5 fL (80.0-98.0); NRBC Abs Auto 0.000 X10*3/uL (0.0-0.012); NRBC Pct Auto 0.0 /100WBC (0.0-0.2); Platelet Count 151 X10*3/uL (160-400); Red Blood Count 4.00 X10*6/uL (4.60-5.80); White Blood Count 3.3 X10*3/uL (4.8-10.8)
--- OUTSIDE RECORDS SUMMARY | 2025-01-27 14:26 | XMS_ITS | Encounter Summary ---
Author Organization [employer] Address 75 [facility] 7t [place] [address] Care Team Providers Care Developmental Education Instructor Name Role Phone Name, Yoandy LUGO Primary Care Provider [phone] Name, Yoandy LUGO Primary Care Provider Reason for Visit * Reason Onset Date Comments FYI 10/01/2022 Encounter Details Date Type Department Care Team ([facility] st Contact Info) Description 10/01/2022 Telephone [facility] 230 [place], [place] [phone] Name, MD Yoandy 230 [place] [address] FYI Social History Tobacco Use Types Packs/Day [...] 10/01/2022 3:26 PM EDT Tc from spouse [facility] facility that patient during their vacation in [place] had two Heart Attacks and is currently hospitalized since 09/15/2022 at the [facility] documented in this encounter Plan of Treatment Upcoming Encounters Date Type Department Care Team (Late st Contact Info) Description 02/20/2025 10:00 AM EST Office Visit [facility] 230 [place] [address] Name, MD Yoandy [address] [place] [address] documented as of this encounter Visit Diagnoses Not on filedocumented in this encounter Care Teams Developmental Education Instructor Relationship Specialty Start Date End Date Name, MD Yoandy [address] [place] [address] PCP - General Family Medicine 01/18/21 06/04/23 Name, MD Yoandy [address] [place] [address] PCP - General Internal Medicine 10/19/23 [facility] 01/19/24 documented as of this encounter
--- OUTSIDE RECORDS SUMMARY | 2025-01-27 14:27 | XMS_ITS | Data Portability ---
Author Organization [place] - [facility], Allergy Address 100 [facility] 100 [place] [address] Assessment Encounter Date Assessment Date Assessment LastModified by Organization Details LastModified Time 02/25/2024 02/25/2024 68-year-old male presents today for evaluation of stridor and tracheal stenosis. Symptoms seem to worsen about 3 weeks ago following dilation in November. Of note he had heart transplant about 2 months ago [address] [facility]. Flexible laryngoscopy did not reveal any [...] heart transplant. Thank you. 2023 Tarsha wagner [facility] Pulmonary Medicine, [address] [facility], [place], [address], 09:56:34 Procedures None recorded. Surgeries None recorded. Imaging None recorded. Medication Orders None recorded. Patient TargetsNo targets recorded. Patient InstructionsNo instructions recorded. 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 Needs follow up appt/repeat endoscopy. Patient has recent heart transplant. Thank you. Referring Physician: Sandip Regalado, Otolaryngology, Encounter Date: 02/25/2024 Problems Name Problem SNOMED Code Status Onset Date Resolution Date Notes Provider Name and Address Organization Details Recorded Time Tracheal stenosis following tracheostomy 73484914 Active 2023 SANDIP REGALADO MD [address] [facility],[place] [address], [place], [phone], [facility] - [facility] 4 12:10:02 Sensorineural hearing loss of bilateral ears 265539038 Active 2024 BORA GRAY, [facility] [address] [facility],[place] [address], [place], [phone], [facility] 5 16:02:33 Problem Notes None recorded. Procedures Surgical History Date Name Laterality Status Provider Name and Address Organization Details Recorded Time 04/15/19 25 Comp Audio with Tymps - 59628 & 65233 completed BORA GRAY [address],[place] [address], [place], [address], [facility] 04/15/2024 16:02:37 02/25/20 24 Fiberoptic Laryngoscopy (Comprehensive) completed SANDIP REGALADO MD [address] [place] [address],[address], [address], [facility] 02/25/2024 12:11:38 Imaging Results None recorded. Procedure [...] Not Available Not Available Comfort EZ Pen Norton 32 gauge x 5/32 active Not Available [...] Updated DateTime 04/15/2024 172.72 cm 20.2 kg/m2 09096.79 g Manda Ly [place] - [facility] 04/15/2024 16:28:34 Date Recorded Body height Body mass index (BMI) Body weight Provider Name and Address Organization Details Last Updated DateTime 02/25/2024 172.72 cm 26.8 kg/m2 01000.26 g Manda Ly [facility] 02/25/2024 11:47:14 Social History None recorded. Functional Status None recorded. Mental Status None recorded. Family History Nothing Reported. Medical History Condition Response Diabetes Y Heart Problems Y Hyperlipidemia Y Past Encounters Encounter ID Performer Location Encounter Start Date Encounter Closed Date Diagnosis/Indication Diagnosis SNOMED-CT Code Diagnosis ICD10 Code Diagnosis IMO Codes Diagnosis Note [id number] SANDIP REGALADO MD [facility] [address] [address] 02/25/2024 11:26:24 02/25/2024 12:26:39 Tracheal stenosis following tracheostomy 70131755 J95.03 [id number] SANDIP REGALADO MD [facility] [address] [address] 04/15/2024 15:37:29 04/15/2024 16:57:22 Sensorineural hearing loss of bilateral ears 709976010 H90.3 68 yo M with a history [...] and there was likely some irritation here. [id number] JACQUE LUGO [facility] [address] [address] 04/15/2024 15:59:22 04/18/2024 07:41:17 Sensorineural hearing loss of bilateral ears 716651359 H90.3 Right Ear:Normal hearing through 1.5K Hz [...] Name 06/15/2024 2 [place] [id number] Matthew L Avila [id number] Matthew Donny Avila Avila 06/15/2024 1 [place] B[place] [employer] Matthew Avila Avila [id number] Matthew Donny Avila Avila 06/15/2024 2 [place] [facility] Matthew L Avila Avila [id number] Matthew Donny Avila Avila Notes Date Note Type Note Provider Name and Address Organization Details Recorded Time 02/25/2024 text/html ROS as noted in the HPI 68 yo M here for tracheal stenosis.Wheezing, had had 5 bronchoscopies. Scarring in the trachea following tracheostomy due to intensive care after heart attack, last year 2022 in [place], was on vacation. Coughing a lot. Had [...] corrected for lung volume SANDIP REGALADO MD [address] [place] [address],[address], [address], [facility] - [facility] 02/26/2024 10:58:54 04/15/2024 text/html Starting feeling numb on the side of the ear right after his surgeryTTP over jaw Has seen Dr. Walton. SANDIP REGALADO MD [address] [place] [address],[address], [address], [facility] - [facility] 04/18/2024 07:25:33
--- OUTSIDE RECORDS SUMMARY | 2025-01-27 14:27 | XMS_ITS | Clinical Summary ---
Author Organization [employer] Address [address] [facility] 7t [place] [address] Care Team Providers Care Rate Engineer Name Role Phone Name, Yoandy LUGO Primary Care Provider [phone] Allergies Active Allergy Reactions Criticality Noted Date [...] bedtime. 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 S/p multiple dilations in the past. Able to pass a 7.0 ETT, but no larger. Decreased functional mobility and endurance 11/06 Non-restorable tooth 11/19/2023 History of MT (myocardial infarction) 10/20/2023 Memory problem 10/20/2023 Shortness [...] 's report Asked patient to call his Technical Service Rep regarding his increased weight/swelling for further recommendations. Dysphagia 02/08/2023 Positive colorectal cancer screening using Colog uard test 02/04/2023 Overview (11/03/2023): Negative Colonoscopy 06/2023: urgical Pathology Exam - Order: [id number] Component 4 mo ago Case Report Surgicals Case: [id number] Authorizing Provider: Donny Encarnacion Collected: 2023 0843 [...] IHC, or special [place] [address]. Resulting Agency [facility] Specimen Collected: 06/19/23 08:43 Performed by: [facility] Last Resulted: 06/23/23 17:27 Athscl heart [...] were answered. Coronary artery disease invo lving chilkoot coronary artery of chilkoot heart without angina pectoris 11/14/2022 Overview (11/02/2023): Last Assessment & Plan: - nonobstructive disease - continue medical therapy with aspirin, statin, BB - denies angina Stridor 11/13/2022 Overview (11/02/2023): Last Assessment & Plan: Improved after last dilation in April 2023. Mild stridor noted today in clinic Discussed with his primary portable machine cutter Dr. 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 Follows at [facility] cardi Systolic dysfunction 03/13/2022 History of bradycardia 03/13/2022 Family history of prostate cancer 03/13/2022 Complete heart block (CMS/HCC) 04/06/2020 Overview (11/02/2023): Added automatically from request for surgery [id number] Last Assessment & Plan: History of biventricular pacemaker that was upgraded to COMMUNICATION SPEC defibrillator in September. Device interrogated today with [...] call cardiology office as well. Aspiration pneumonia ([facility]) 02/08/2023 02/05/2024 Hyperlactatemia 02/08/2023 11/03/2023 Viral [...] starting statin -No need for ischemic evaluation edge inker heels (current) use of o ral hypoglycemic drugs [...] DEPARTMENT Provider, Generic External Data 11/24/2024 Telephone [facility] MEDICINE [address] [place] [address] [place] oct recalls from Last 3 Months [...] Description 02/20/2025 10:00 AM EST Office Visit [facility] MEDICINE 230 [place] [address] Name, MD Yoandy [address] [place] [address] Health Maintenance Due Date Last Done Comments [...] Procedure Name Priority Date/Time Associated Diagnosis Comments GROSS AND MICROSCOPIC LEVEL 3 Routine 01/19/2025 10:42 AM EDT GLUCOSE, WHOLE BLOOD Routine 12/30/2024 3:47 PM EDT POCT GLYCATED HEMOGLOBIN, TOTAL Routine 07/27/2024 10:59 AM EDT Type 2 diabetes mellitus with other circulatory complication, without long-term current use of insulin ([facility]) ALBUMIN, RANDOM URINE W/CREATININE Routine 04/14/2024 11:04 AM EST Type 2 diabetes mellitus with other circulatory complication, without long-term current use of insulin ([facility]) LIPID PANEL, STANDARD Routine 06/27/2022 9:53 AM EDT from Last 3 Months or Most Recently Relevant to Health Maintenance Results * Gross and Microscopic Level 3 (01/19/2025 10:42 AM EDT) 01/19/2025 10:4 2 AM EDT 01/20/2025 9:10 AM EDT [facility] LABS - 01/23/2025 2:18 PM EDT ----- ------- Name: Matthew Toro Age/Sex: 69/M : 1955 Unit#: [id number] Attend Dr: Tamiko Ceballos DPM Re01/19/25 Status: ARIS WILL Location: [facility] Disch: ----- ------- SPEC : [id number] RECD: 01/20/25 STATUS: DON PHAN NUM: [id number] TIM: 01/19/25-[address] [facility] DR: Tamiko Ceballos DPM ENTERED: 01/20/25 SP TYPE: Surgical OTHR DR: Yoandy Tillman MD ORDERED: Gross Micro L3 Diagnosis Nail, bilateral toenails (clippings): Onychomycosis. Clinical History Onychomycosis, thickened, dystrophic, discolored toenails, diabetic neuropathy Microscopic Description Microscopic sections reviewed. PAS-F is positive for fungal hyphae and buds; control appropriate. Material Received Bilateral toenails Gross Description Received fresh are 4 fragments of tomlin-yellow, thickened nail aggregating 2.1 x 0.9 x 0.3 cm, treated with sodium chloride and totally submitted in cassette A1. (RJD) Special studies ordered and performed: PAS-F on A1. IHC S/NG Disclaimer NOTE: Unless otherwise stated, all tissue is formalin-fixed and paraffin-embedded. Some or all of the immunohistochemical tests reported herein may have been developed and their performance characteristics determined by [facility]. They have not been cleared or approved by the U.S. Food and Drug Administration (FDA). However, the FDA has determined that such clearance or approval is not necessary. This laboratory is certified under the Clinical Laboratory Improvement Amendments of 1988 (CLIA) as qualified to perform high complexity clinical laboratory testing. Copies To: NameYoandy MD [address] [address] CONTINUED ON NEXT PAGE ----- ------- Name: Matthew Toro Age/Sex: 69/M : 1955 Unit#: [id number] Attend Dr: Tamiko Cebalols DPM Re01/19/25 Status: DEP REF Location: [facility] Disch: ----- ------- SPEC : [id number] RECD: 01/20/25 STATUS: DON PHAN NUM: [id number] TIM: 01/19/[address] [facility] [address]: Tamiko Ceballos DPM ENTERED: 01/20/25 SP TYPE: Surgical OTHR DR: Yoandy Tillman MD ORDERED: Gross Micro L3 Copies To: (Continued) Tamiko Ceballos DPM [facility] [address] [address] [email or web address] ----- ------- Signed (signature on file) Shruti Leonard 01/23/25 1418 ----- ------- END OF REPORT us Generic External Data Provider LAB CYTOLOGY DONNIE MOTT Final Result [facility] [address] [place] [address] [phone] * Glucose, Whole Blood (12/30/2024 3:47 PM EDT) Glucose, Whole Blood 105 60 - 115 mg/dL [facility] Comment:METER #: [id number] Testing performed in the Endocrinology Department [address] , [address], [facility]. 12/30/2024 3:47 PM EDT 12/30/2024 4:17 PM EDT Generic External Data Provider LAB BLOOD ORDERAB LES Final Result Performing Organization Address City/[facility]/ZIP Co de Phone Number [facility] [address] [place] [phone] * POCT HGB A1C (07/27/2024 10:59 AM EDT) Hemoglobin A1C 5.7 4.0 - 6.0 % QC Media Lot # [id number] Lot# Expiration Date 42 Blood 07/27/2024 10:5 9 AM EDT Yoandy Tillman MD POINT OF CARE TEST ENTER/EDIT OR DERABLES Final Result * Albumin, Random Urine W/Creatinine (04/14/2024 11:04 AM EST) Creatinine, Urine 109.08 mg/dL [facility] Microalbumin Urine 6.0 mg/L [facility] Microalbum Creatinine Ratio Ur 5.5 <30 ug/mg cr [facility] Comment:Albumin/Creatinine R atio Reference Ranges: Normal: < 30 ug/mg creatinine Microalbuminuria: 30 - 300 ug/mg creatinineClinical Albuminuria: > 300 ug/mg creatinine Urine (Urine, Random) 04/14/2024 11:04 AM EST 04/14/2024 1:04 PM EST Yoandy Tillman MD LAB URINE ORDERABLES Final Resul t Performing Organization Address [facility]/ZIP Co de Phone Number [facility] [address] [place] [phone] * Lipid Panel, Standard (06/27/2022 9:53 AM EDT) Triglycerides 84 mg/dL [facility] Comment:Desirable Triglyceri de: less than 150 mg/dLBorderline High Triglyceride 150-199 mg/dLHigh Triglyceride: 200-499 mg/dLVery High Triglyceride: greater than or equal to 5OO mg/dL Cholesterol 154 mg/dL [facility] Comment:Desirable Cholestero l: less than 200 mg/dLBorderline High Cholesterol: 200-239 mg/dLHigh Cholesterol: greater than 239 mg/dL LDL Cholesterol Calculated 104 mg/dl [facility] Comment:Desirable LDL: less than 100 mg/dLNear Optimal/Above Optimal LDL: 110- 129 mg/dLBorderline High LDL: 130-159 mg/dLHigh LDL: 160-189 mg/dLVery High LDL: greater than or equal to 190 mg/dL HDL Cholesterol 34 mg/dL [facility] Comment:Desirable HDL: great er than 40 mg/dL Note: This HDL assay may give artificially low results in patients with liver disease. 06/27/2022 9:53 AM EDT 06/27/2022 9:53 AM EDT us [facility] External Provider LAB BLO OD ORDERABLES Final Result [facility] [address] [place] [address] [phone] from Last 3 Months or Most Recently Relevant to Health Maintenance Insurance MEDICARE [facility] STANDARD [facility] MEDEX MEDICARE SUPPLEMENT Care Teams Rate Engineer Relationship Specialty Start Date End Date Name, MD Yoandy [address] [place] [address] PCP - General Internal Medicine 10/19/23 Roberto Lyudmila 01/19/24
--- OUTSIDE RECORDS SUMMARY | 2025-01-27 14:27 | XMS_ITS | Clinical Summary ---
Author Organization [facility] Address Critical access hospital [email or web address] [address] [place] [phone] Phone Care Team Providers Care Timber Harvester Operator Name Role Phone Name, Yoandy LUGO Primary Care Provider [phone] Social History Tobacco Use Types Packs/Day Years [...] file Insurance MEDICARE PART A & B [facility] [address] [place], [place] [address] MEDICARE PART A [place] [id number] [facility] [address] [place], [place] [address] MEDICARE PART A & B [facility] FULL Member Subscriber Plan / Payer (Ef fective 2023-Present) Name:Matthew Toro Relation to Subscriber:Self Name:Matthew Toro Payer ID:Not on file Group ID:Not on file Type:Medicaid Address: [address] MEDICARE PART A & B [facility] SAFETY NET FULL MEDICARE PART A & B [facility] SAFETY NET FULL Member Subscriber Plan / Payer (Ef fective 2023-Present) Name:Mtathew Toro Relation to Subscriber:Self Name:Avila Margarita Matthew Donny Payer ID:Not on file Group ID:Not on file Type:Medicaid Address: [address] [place] [id number] [facility] FULL B Care Teams Timber Harvester Operator Relationship Specialty Start Date End Date Name, MD Yoandy [address] [place] [address] PCP - General Internal Medicine 11/02/23 Additional Source Comments The information contained in this document represents components of the legal health record. It is not the complete legal health record.[facility]
--- OUTSIDE RECORDS SUMMARY | 2025-01-27 14:27 | XMS_ITS | Encounter Summary ---
Author Organization [employer] Address [address] [place] [address] Care Team Providers Care Test Driller Name Role Phone Name, Yoandy LUGO Primary Care Provider [phone] Name, Yoandy LUGO Primary Care Provider [phone] Encounter Details Date Type Department Care Team (Late st Contact Info) Description 03/21/2022 Orders Only [facility] MEDICINE [address] [place] [address] Coby Flores RN Social History Tobacco Use [...] 10:00 AM EST Office Visit [facility] MEDICINE [address] [place] [address] Name, MD Yoandy [address] [place] [address] documented as of this encounter Procedures Procedure Name Priority Date/Time Associated Diagnosis Comments B TYPE NATRIURETIC PEPTIDE (BNP) Routine 06/27/2022 9:53 AM EDT HEPATIC FUNCTION PANEL Routine 06/27/2022 9:53 AM EDT LIPID PANEL, STANDARD Routine 06/27/2022 9:53 AM EDT BASIC METABOLIC PANEL Routine 06/27/2022 9:53 AM EDT documented in this encounter Results * Lipid Panel, Standard (06/27/2022 9:53 AM EDT) Triglycerides 84 mg/dL [facility] Comment:Desirable Triglyceri de: less than [...] to 190 mg/dL HDL Cholesterol 34 mg/dL [facility] Comment:Desirable HDL: great er than 40 mg/dL Note: This HDL assay may give artificially low results in patients with liver disease. 06/27/2022 9:53 AM EDT 06/27/2022 9:53 AM EDT [facility] External Provider LAB BLO OD ORDERABLES Final Result [facility] [address] [place] [address] [phone] * (ABNORMAL) Basic Metabolic Panel (06/27/2022 9:53 AM EDT) Sodium 143 135 - 145 mmol/L [facility] Potassium 4.6 3.3 - 5.1 mmol/L [facility] Chloride 108 96 - 108 mmol/L [facility] Carbon Dioxide 26 22 - 29 mmol/L [facility] Anion Gap 14 12 - 20 [facility] Urea Nitrogen (BUN) 13 9 - 16 mg/dL [facility] Creatinine, Serum 1.02 0.5 - 1.4 mg/dL [facility] Estimated Glomerular Filt Rate >60 [facility] Comment:NOTE: For -Am erican individuals, multiply the result by 1.210.Chronic Kidney Disease: Estimated GFR < 60 mL/min/1.83w3Hdzmsf Kidney Disease: Estimated GFR < 15 mL/min/1.73m2 Glucose 141(H) 60 - 115 mg/dL [facility] Calcium 9.4 8.4 - 10.2 mg/dL [facility] 06/27/2022 9:53 AM EDT 06/27/2022 9:53 AM EDT [facility] External Provider LAB BLO OD ORDERABLES Final Result Performing Organization Address [facility] Co de Phone Number [facility] [address] [place] [phone] * Hepatic Function Panel (06/27/2022 9:53 AM EDT) Bilirubin, Total 1.0 0.0 - 1.0 mg/dL [facility] Bilirubin, Direct 0.3 0.0 - 0.5 mg/dL [facility] Aspartate Amino Transferase 19 5 - 37 U/L [facility] Alanine Aminotransferase 24 0 - 40 U/L [facility] Total Protein 6.7 6.5 - 8.0 g/dL [facility] Albumin Level 4.2 3.5 - 5.0 g/dL [facility] Alkaline Phosphatase 61 39 - 117 U/L [facility] 06/27/2022 9:53 AM EDT 06/27/2022 9:53 AM EDT [facility] External Provider LAB BLO OD ORDERABLES Final Result Performing Organization Address [facility] de Phone Number [facility] [address] [place] [phone] * (ABNORMAL) B Type Natriuretic Peptide (BNP) (06/27/2022 9:53 AM EDT) B Type Natriuretic Peptide 332(H) <100 pg/mL [facility] Comment:For those patients w ho are being treated with Natrecor(nesiritide, recombinant BNP), BNP testing should beperformed at least two hours post treatment in order toensure that only endogenous levels of BNP are detected. 06/27/2022 9:53 AM EDT 06/27/2022 9:53 AM EDT us [facility] External Provider LAB BLO OD ORDERABLES Final Result [facility] [address] [place] [phone] [phone] documented in this encounter Visit Diagnoses Not on filedocumented in this encounter Care Teams Test Driller Relationship Specialty Start Date End Date NameYoandy MD [address] [place] [address] PCP - General Family Medicine 01/18/21 06/04/23 Name, MD Yoandy [address] [place] [address] PCP - General Internal Medicine 10/19/23 [facility] 01/19/24 documented as of this encounter
[2025-01-27 14:49] LABS: Alanine Aminotransferase 15 U/L (0-40); Albumin Level 4.5 g/dL (3.5-5.0); Alkaline Phosphatase 47 U/L (39-117); Anion Gap 9 (12-20); Aspartate Amino Transferase 10 U/L (5-37); Blood Urea Nitrogen 12 mg/dL (9-16); Calcium 9.7 mg/dL (8.4-10.2); Carbon Dioxide 31 mmol/L (22-29); Chloride 110 mmol/L (96-108); Estimated Glomerular Filt Rate > 60; Potassium 4.2 mmol/L (3.3-5.1); Sodium 146 mmol/L (135-145); Total Protein 6.5 g/dL (6.5-8.0)
== END 2025-01-27 12:21 | disposition home or self-care (01) ==
LOC: HO.LABR 12:20
PROVIDERS: PCP Internal Medicine Geriatric Medicine; Visit Provider Nurse Practitioner Family
DX: B25.9 Cytomegaloviral disease, unspecified (principal); E11.8 Type 2 diabetes mellitus with unspecified complications
CPT/HCPCS: 36415; 80053; 82947; 85025; 95250; 99212

== ENCOUNTER 2025-01-27 15:00 | Outpatient (AMB) | payer MEDICARE, SELFPAY ==
--- NOTE | 2025-01-27 15:12 | A.OFFVIS_ITS ---
Vital Signs 3 01/27/25 15:13 Height 5 ft 7 in Weight 136 lb 10.986 oz BMI 21.4 BP 132/80 Blood Pressure Location Rt brachial Position Sitting Pulse 97 Pulse Source Pulse Oximeter Pulse Oximetry (%) 96 Intake Visit Reasons: T2DM/pt interested in pump Intake Note: Patient presents today for a follow-up on Type 2 Diabetes Mellitus: Patient last seen by MANISHA Ricardo. Last Diabetic eye exam was on: 08/2024 Last Podiatry exam was on: Does not see a Roving Changer Most recent HbA1c: 6.5%, 12/30/2024 Random Glucose- 106 mg/dL, Today L Anchor Tack Puller Required: Yes Anchor Tack Puller Language: Automatic Pattern Edger Services: Anchor Tack Puller Offered & Declined Accompanied by: Daughter Allergies lisinopril Allergy (Mild, Verified 01/27/25 15:18) Swelling Medication List - Last Reconciled 01/27/25 by Morris Benavides MD aspirin 81 mg PO DAILY blood sugar diagnostic (FreeStyle Lite Strips) As directed calcium carbonate 1,250 mg PO DAILY cholecalciferol (vitamin D3) 25 mcg PO DAILY ciclopirox 8% 1 appl topical BEDTIME 4 weeks FreeStyle Jaswinder 3 Plus Sensor (blood-glucose sensor) every 14 days NS FreeStyle Jaswinder 3 [place] (blood-glucose,catering driver,cont) As directed NS Humalog KwikPen Insulin (insulin lispro) 4 units subcutaneous breakfast, 6 units subcutaneous lunch and 8 units subcutaneous with dinner. NS insulin glargine (Lantus U-100 Insulin) 20 units (0.2 mL) subcut QAM lancets (TRUEplus Lancets) As directed levetiracetam 750 mg PO BID mycophenolate mofetil (CellCept) 750 mg PO BID pantoprazole 40 mg PO DAILY pen needle, diabetic 4 times daily pravastatin 80 mg PO BEDTIME prednisone 5 mg PO DIRECTED sennosides (senna) 8.6 mg PO BEDTIME tacrolimus 6 mg PO BID valganciclovir (Valcyte) 450 mg PO BID HPI Comments Details: 68-year-old male presenting for diabetic follow up. Last seen by Ashely DYER on 12/30/24. This is the first time I see this patient. 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 Now off prednisone He is currently on lantus 20 units and Humalog 5-8 units Previous meds: Glucophage, and other medication oral med that they can?t recall Lows now after prednisone decreased and his appetite is less. He also snacks at night before bed. Macrovascular/microvascular complications: No CVA, No AR. No CKD, no neuropathy, no known retinopathy. Exercise: limited physical activity due to weather. Eye exam- June 2024 Podiatry-does not see- Would like a referral Interval history: He had a heart transplant 1 year ago. He reports feeling overall well He reports sporadic episodes of hypoglycemia He usually have breakfast, late lunch and then he snacks before sleep Physical exam: General: Well appearing. NAD. Neck/Thyroid: Thyroid not palpable, no nodules. CV: RRR, no murmur. No edema. Resp:Lungs clear to auscultation bilaterally Abdomen: Soft, nontender. nondistended Extremities/Neuro: No weakness or tremor of outstretched hands Labs Laboratory Tests 04/14/24 01/27/25 01/27/25 11:04 12:38 15:15 Creatinine 0.99 Estimated GFR > 60 Glucose (Clinic) 106 Calcium 9.7 D Microalb/Creat Ratio 5.5 CGM/pump data Interpretation: Overall well controlled during the morning, but patient develops hyperglycemia after dinner that is sometimes persist during the earlier part of the night. He does experience fairly frequent episodes of hypoglycemia, especially during the morning. [facility] Medical History (Updated 01/19/25 @ 10:53 by Tamiko Ceballos DPM) Varicose veins of both lower extremities Tinea unguium Nail disorder Nail dystrophy Diabetic neuropathy Diabetes Pacemaker Surgical History Hx of heart transplant History of cardiac catheterization (~10/2021) History of cataract surgery Family History Father Diabetes Heart problem Brother Heart attack Social History Alcohol intake: never Patient Tobacco Use Status: Never used Tobacco Physical Exam Vital Signs: Last Vital Signs Pulse 97 01/27/25 15:13 BP 132/80 01/27/25 15:13 Pulse Ox 96 01/27/25 15:13 BMI result Body Mass Index 21.4 Office Procedures Glucose Monitoring Details Details: See HPI 17745 - Glucose Monitoring, continuous Procedure code (CPT) selection complete Results Reviewed Results Reviewed: Laboratory Last Values Glucose (Clinic) 106 mg/dL (60-115) 01/27/25 15:15 Assessment & Plan Assessment & Plan (1) Type 2 diabetes mellitus with unspecified complications: Code(s): E11.8 - Type 2 diabetes mellitus with unspecified complications Category: Medical Plan: 68-year-old male presenting for diabetic follow up. Previously follow up with my colleague. 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 His also showed interest in using a pump to reduce this episode of hypoglycemia. Plan Adjust Lantus to 16 units daily Provide new sliding scale-see pt instructions Discussed treatment of hypoglycemia Discussed pump preference, they might want to try the tandem TSlim They might want to learn about carb counting Plan 45 minutes spent reviewing previous records, labs, imaging, education and documenting in the chart Orders: Orders 2 AMB Glucose Monitoring 01/27/25 E11.8 - Type 2 diabetes mellitus with unspecified complications Referrals 2 Diabetes Education Referral E11.8 - Type 2 diabetes mellitus with unspecified complications Patient Instructions: Disminuya Lantus a 16 unidades diarias Utilize la escala the insulina skip se muestra abajo Dosis de insulina (unidades) ? Take 10?15 minutes prior to the meal Nivel de azucar (mg/dl) comida pequena?(low carb <30g like salad, eggs with meat) Comida normal?(30?60g like sandwich, chips, meat, small starch portion) Comida abundante?(>60g like pizza, lasagna, Togolese food, meal + dessert) <100 0 0 1 101?150 0 1 2 151?200 1 2 3 201?250 2 3 4 251?300 3 4 5 301?350 4 5 6 351?400 5 6 7 >400 6 7 8 Coding Level of Care Code Est Pt Level 4 (74642) Diagnoses Type 2 diabetes mellitus with unspecified complications E11.8 CPT Codes Details - CPT: 51409 - Glucose Monitoring, continuous ([id number])
[2025-01-27 15:13] VITALS: BP 132/80; PULSE 97; O2SAT 96; BMI 21.4
[2025-01-27 15:23] LABS: Glucose, Whole Blood 106 mg/dL (60-115)
--- OUTSIDE RECORDS SUMMARY | 2025-01-27 16:40 | XMS_ITS | Encounter Summary ---
Author Organization [facility] Address [address] [facility] [address] [place] [address] Care Team Providers Care Fish And Wildlife Warden Name Role Phone Glenn Herman MD Unavailable [phone] Name, Yoandy LUGO Primary Care Provider Edward Handley screwhead stoner and polisher Unavailable Unavailable Jennie Michelle PharmD Unavailable [phone] Juan Hutchinson MD Unavailable [phone] Encounter Details Date Type Department Care Team (Late st Contact Info) Description 01/02/2025 Orders Only [facility] Infectious Disease [address] [facility] 3rd [place] [address] Lena Cortes, BLADE FILER [address] [place] [phone] Social History Tobacco Use Types Packs/Day Years [...] place to sleep or slept in a chcf (including now)? No 11/26/2023 Sex and Gender [...] Description 02/02/2025 1:30 PM EDT Office Visit [facility] Lung Nodule [address] [phone] Alfred Mckeon MD [address] [place] [address] 02/02/2025 2:00 PM EDT Office Visit [facility] Lung Nodule [address] [phone] Yoav Lugo Lung Nod Pul 02/22/2025 2:00 PM EST Office Visit [facility] Neurology [address] [place] [address] Percy Kapoor MD [address] [address] 03/08/2025 1:00 PM EST Office Visit [facility] Dermatology [address] [place] [address] Nelida Ayala MD [address] [place] [phone] 03/20/2025 12:00 PM EST Office Visit [facility] Cardiac Subspecialty [address] [phone] Charlie Barry MD [address] [place] [address] 07/12/2025 10:30 AM EDT Appointment [facility] Pulmonary Function Lab [address] [facility] [address] 5th Floor Room [address] [place] [address] 07/12/2025 11:30 AM EDT Office Visit [facility] Pulmonary [address] [facility] [address] [place] [phone] Daysi Fink MD documented as of this encounter Visit Diagnoses Not on filedocumented in this encounter Care Teams Fish And Wildlife Warden Relationship Specialty Start Date End Date Name, MD Yoandy [address] [place] [address] PCP - General Extrusion Die Corrector 11/12/23 Glenn Herman MD [address] [place] [phone] Referring Physician Cardiology 11/12/23 Edward Handley CPhT Unmanned Aircraft Systems Roboticist Pharmacy 12/31/23 Jennie Michelle, PharmD [address] [place] [phone] Pharmacist Pharmacy 01/27/24 Juan Hutchinson MD [address] [place] [address] [address] [place] [address] Attending Physician Cardiology 12/19/24 documented as of this encounter
--- OUTSIDE RECORDS SUMMARY | 2025-01-27 16:40 | XMS_ITS | Encounter Summary ---
Author Organization [facility] Address [address] [facility] [address] [place] [address] Care Team Providers Care Brick Siding Applicator Name Role Phone Glenn Herman MD Unavailable Name, Yoandy LUGO Primary Care Provider Edward Handley head stock operator Unavailable Unavailable Jennie Michelle PharmD Unavailable [phone] Juan Hutchinson MD Unavailable [phone] Encounter Details Date Type Department Care Team (Late st Contact Info) Description 12/29/2023 Lab Requisition [facility] HLA Lab [address] [place] [phone] Pedro Kline MD 800 [facility] [address] [place] [address] Cardiomyopathy, unspecified (Multi-HCC) Social History Tobacco Use [...] Description 02/02/2025 1:30 PM EDT Office Visit [facility] Lung Nodule [address] [phone] Alfred Mckeon MD [address] [place] [address] 02/02/2025 2:00 PM EDT Office Visit [facility] Lung Nodule [address] [phone] Yoav Lugo Lung Nod Pul 02/22/2025 2:00 PM EST Office Visit [facility] Neurology [address] [place] [address] Percy Kapoor MD [address] [address] 03/08/2025 1:00 PM EST Office Visit [facility] Dermatology [address] [place] [address] Nelida Ayala MD [address] [place] [address] 03/20/2025 12:00 PM EST Office Visit [facility] Cardiac Subspecialty [address] [phone] Charlie Barry MD 800 [place] [address] 07/12/2025 10:30 AM EDT Appointment [facility] Pulmonary Function Lab [address] [facility] [address] 5th Floor Room [address] [place] [phone] 07/12/2025 11:30 AM EDT Office Visit [facility] Pulmonary [address] [place] [phone] Daysi Fink MD documented as of this encounter Procedures Procedure Name Priority Date/Time Associated Diagnosis Comments HLA CONSULTATION Routine 12/26/2023 11:5 6 PM EDT Cardiomyopathy, unspecified (Multi-HCC) documented in this encounter Results * HLA Consultation (12/26/2023 11:56 PM EDT) PDF Attached See PDF Document 01/02/2024 12:57 PM EDT [facility] Blood Venous blood specimen / Unknown 12/26/2023 11:56 PM EDT 12/29/2023 10:28 PM EDT us Pedro Kline MD LAB BLOOD ORDERABLES Maral l Result [facility] HLA LAB [address] [place] [address], documented in this encounter Visit Diagnoses Diagnosis Cardiomyopathy, unspecified Cytomegalovirus infection, 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, unspecified cytomegaloviral infection type documented in this encounter Care Teams Brick Siding Applicator Relationship Specialty Start Date End Date Name, MD Yoandy [address] [place] [address] PCP - General Gasoline Engine Assembler 11/12/23 Glenn Herman MD [address] [place] [address] Referring Physician Cardiology 11/12/23 Edward Handley CPhT Rn Advanced Pharmacy 12/31/23 Jennie Michelle, PharmD [address] [place] [address] Pharmacist Pharmacy 01/27/24 Juan Hutchinson MD [address] [place] [address] [place] [phone] Attending Physician Cardiology 12/19/24 documented as of this encounter
--- OUTSIDE RECORDS SUMMARY | 2025-01-27 16:40 | XMS_ITS | Encounter Summary ---
Author Organization [facility] Address 800 [facility] [address] [place] [address] Care Team Providers Care Sales And Marketing Manager Name Role Phone Glenn Herman MD Unavailable [phone] Name, Yoandy LUGO Primary Care Provider [phone] Edward Handley mottler machine feeder Unavailable Unavailable Jennie Michelle PharmD Unavailable Juan Hutchinson MD Unavailable [phone] Encounter Details Date Type Department Care Team (Late st Contact Info) Description 01/24/2025 Telephone [facility] Infectious Disease 260 [facility] 3rd [place] [address] Lena Cortes, STORAGE BATTERY INSPECTOR [address] [place] [address] Social History Tobacco Use Types [...] Author No 11/26/2023 11:17 AM EDT Bethany Wsahington RN * Do you have serious difficulty [...] Telephone Encounter - Lena Cortes NP - 01/24/2025 8:42 AM EDT Heart ID Through the aide of vira interpretor Donny #[id number]- Aleisha Servin Mr. Avila received messageand has stopped his valganciclovir and will go for weekly surveillance labs for the next 8 weeks. Lena Cortes NP 01/24/2025 8:45 AM documented in this encounter Plan of Treatment Upcoming Encounters Date Type Department Care Team (Late st Contact Info) Description 02/02/2025 1:30 PM EDT Office Visit [facility] Lung Nodule [address] [phone] Alfred Mckeon MD [address] [place] [address] 02/02/2025 2:00 PM EDT Office Visit [facility] Lung Nodule [address] [address] Yoav Lugo Lung Nod Pul 02/22/2025 2:00 PM EST Office Visit [facility] Neurology [address] [place] [address] Percy Kapoor MD [facility] 800 [place] [address] 03/08/2025 1:00 PM EST Office Visit [facility] Dermatology [address] [place] [address] Nelida Ayala MD [address] [place] [address] 03/20/2025 12:00 PM EST Office Visit [facility] Cardiac Subspecialty [address]60 [facility] 6th [place] [phone] Charlie Barry MD [address] [place] [address] 07/12/2025 10:30 AM EDT Appointment [facility] Pulmonary Function Lab 800 [facility] [address] [facility] 5th Floor Room [address] [place] [phone] 07/12/2025 11:30 AM EDT Office Visit [facility] Pulmonary 260 [facility] [address] 3rd [place] [phone] Daysi Fink MD documented as of this encounter Visit Diagnoses Not on filedocumented in this encounter Care Teams Sales And Marketing Manager Relationship Specialty Start Date End Date Name, MD Yoandy [address] [place] [address] PCP - General Bale Piler 11/12/23 Glenn Herman MD [address] [place] [address] Referring Physician Cardiology 11/12/23 Edward Handley CPhT Steel Chipper Pharmacy 12/31/23 Jennie Michelle, PharmD [address] [place] [address] Pharmacist Pharmacy 01/27/24 Juan Hutchinson MD [address] [place] [address] [place] [address] Attending Physician Cardiology 12/19/24 documented as of this encounter
--- OUTSIDE RECORDS SUMMARY | 2025-01-27 16:40 | XMS_ITS | Encounter Summary ---
Author Organization [facility] Address [address] [facility] [address] [place] [address] Care Team Providers Care Doula Name Role Phone Glenn Herman MD Unavailable [phone] Yoandy Tillman MD Primary Care Provider [phone] Edward Handley casket assembler Unavailable Unavailable Jennie Michelle PharmD Unavailable Juan Hutchinson MD Unavailable [phone] Reason for Visit * Reason Comments Med Change Request Encounter Details Date Type Department Care Team (Late st Contact Info) Description 03/17/2024 Refill [facility] Cardiac Subspecialty [address] [facility] [address] [place] [address] Charlie Barry MD [address] [place] [address] 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) Social History [...] - 03/17/2024 4:02 PM EST Filled at [facility] documented in this encounter Plan of Treatment Upcoming Encounters Date Type Department Care Team (Late st Contact Info) Description 02/02/2025 1:30 PM EDT Office Visit [facility] Lung Nodule [address] [phone] Alfred Mckeon MD [address] [place] [address] 02/02/2025 2:00 PM EDT Office Visit [facility] Lung Nodule [address] [address] Yoav Portillo Lung Nod Pul 02/22/2025 2:00 PM EST Office Visit [facility] Neurology [address] [place] [address] Percy Kapoor MD [facility] [address] [place] [address] 03/08/2025 1:00 PM EST Office Visit [facility] Dermatology [address] [place] [address] Nelida Ayala MD [address] [place] [address] 03/20/2025 12:00 PM EST Office Visit [facility] Cardiac Subspecialty [address] [facility] [address] [place] [address] Charlie Barry MD [address] [place] [address] 07/12/2025 10:30 AM EDT Appointment [facility] Pulmonary Function Lab [address] [facility] [address] [facility] 5th Floor Room [address] [place] [phone] 07/12/2025 11:30 AM EDT Office Visit [facility] Pulmonary [address] [facility] [address] [facility] [address] [place] [phone] Daysi Fink MD documented as of this encounter Visit Diagnoses Diagnosis Heart replaced by transplant Cytomegalovirus infection, 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, unspecified cytomegaloviral infection type documented in this encounter Care Teams Doula Relationship Specialty Start Date End Date Name, MD Yoandy [address] [place] [address] PCP - General Fitting Room Attendant 11/12/23 Glenn Herman MD [address] [place] [address] Referring Physician Cardiology 11/12/23 Edward Handley CPhT [facility] 12/31/23 Jennie Michelle, RadhaD [address] [place] [address] Pharmacist Pharmacy 01/27/24 Juan Hutchinson MD [address] [facility] [address] [place] [address] Attending Physician Cardiology 12/19/24 documented as of this encounter
--- OUTSIDE RECORDS SUMMARY | 2025-01-27 16:40 | XMS_ITS | Encounter Summary ---
Author Organization [facility] Address [address] [facility] [address] [place] [address] Care Team Providers Care Manager Validation Name Role Phone Glenn Herman MD Unavailable Name, Yoandy LUGO Primary Care Provider Edward Handley ticketing agent Unavailable Unavailable Jennie Michelle PharmD Unavailable [phone] Juan Hutchinson MD Unavailable [phone] Encounter Details Date Type Department Care Team (Late st Contact Info) Description 12/25/2023 Lab Requisition [facility] HLA Lab [address] [place] [phone] Pedro Kline MD [address] [facility] [address] [place] [address] Cardiomyopathy, unspecified (Multi-HCC) Social History Tobacco Use [...] Description 02/02/2025 1:30 PM EDT Office Visit [facility] Lung Nodule [address] [address] Alfred Mckeon MD [address] [place] [address] 02/02/2025 2:00 PM EDT Office Visit [facility] Lung Nodule [address] [address] Yoav Lugo Lung Nod Pul 02/22/2025 2:00 PM EST Office Visit [facility] Neurology [address] [place] [address] Percy Kapoor MD [address] [address] 03/08/2025 1:00 PM EST Office Visit [facility] Dermatology [address] [place] [address] Nelida Ayala MD [address] [place] [address] 03/20/2025 12:00 PM EST Office Visit [facility] Cardiac Subspecialty [address] [phone] Charlie Barry MD 800 [place] [address] 07/12/2025 10:30 AM EDT Appointment [facility] Pulmonary Function Lab [address] [facility] [address] 5th Floor Room [address] [place] [phone] 07/12/2025 11:30 AM EDT Office Visit [facility] [address] [address] [place] [phone] Daysi Fink MD documented as of this encounter Procedures Procedure Name Priority Date/Time Associated Diagnosis Comments HLA CONSULTATION Routine 12/25/2023 8:41 AM EDT Cardiomyopathy, unspecified (Multi-HCC) documented in this encounter Results * HLA Consultation (12/25/2023 8:41 AM EDT) PDF Attached See PDF Document 12/26/2023 3:15 PM EDT [facility] HLA LAB Blood Venous blood specimen / Unknown 12/25/2023 8:41 AM EDT 12/25/2023 7:39 PM EDT us Pedro Kline MD LAB BLOOD ORDERABLES Maral l Result [facility] HLA LAB [address] [place] [address], documented in this encounter Visit Diagnoses Diagnosis Cardiomyopathy, unspecified Cytomegalovirus infection, 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, unspecified cytomegaloviral infection type documented in this encounter Care Teams Manager Validation Relationship Specialty Start Date End Date Name, MD Yoandy [address] [place] [address] PCP - General Window Shade Cutter 11/12/23 Glenn Herman MD [address] [place] [address] Referring Physician Cardiology 11/12/23 Edward Handley CPhT [facility] 12/31/23 Jennie Michelle, PharmD [address] [place] [address] Pharmacist Pharmacy 01/27/24 Juan Hutchinson MD [address] [place] [address] [place] [address] Attending Physician Cardiology 12/19/24 documented as of this encounter
--- OUTSIDE RECORDS SUMMARY | 2025-01-27 16:40 | XMS_ITS | Clinical Summary ---
Author Organization [facility] Address [address] [facility] [address] [place] [address] Care Team Providers Care Tone Cabinet Assembler Name Role Phone Glenn Herman MD Unavailable [phone] NameYoandy MD Primary Care Provider [phone] Edward Handley university intern Unavailable Unavailable Jennie Michelle PharmD Unavailable [phone] Bridger Hernandez MD Unavailable [phone] Allergies Active Allergy Reactions Criticality Noted [...] capsule 11 01/13/20 3:21 PM EDT 025 09/15/ 2026 Active mycophenolate (Cellcept) 500 mg tabletIndicat ions:Heart transplant recipient Take 1 tablet (500 mg) by mouth twice daily. Take in addition to 250mg cap, total dose 750mg twice daily. 60 tablet 11 01/13/20 3:21 PM EDT 025 2025 Active pravastatin [...] crush or chew. 30 tablet 1 01/13/20 3:21 PM EDT 025 2024 Active calcium carbonate 500 mg calcium (1,250 mg) tabletIndicat ions:Heart transplant recipient Take 1 tablet (1,250 mg) by mouth with breakfast and with evening meal. 180 tablet 3 01/13/20 3:21 PM EDT 025 2025 Active calcium carbonate 500 mg calcium (1,250 mg) tabletIndicat ions:Heart transplant recipient Take 1 tablet (1,250 mg) by mouth with breakfast and with evening meal. 180 tablet 3 10/21/19 25 4:43 PM EDT 024 2024 Discontin ued(Reord er) dextromethorp nelson-[place] in [...] 's report Asked patient to call his Adventure Challenge Instructor regarding his increased weight/swelling for further recommendations. Last Assessment & Plan: reports he's up a few pounds from his baseline weight, worsening leg swelling over the last few days. Compliant with Torsemide - taking full dose per 's report Asked patient to call his Adventure Challenge Instructor regarding his increased weight/swelling for further recommendations. [...] Encounters Date Type Department Care Team Description 01/24/2025 Telephone [facility] Infectious Disease [address] [phone] Lena Cortes NP 01/18/2025 Telephone [facility] Infectious Disease [address] [phone] Lena Cortes NP 01/10/2025 Refill [facility] Cardiology [address] [facility] [address] [place] [address] Pedro Kline MD Heart transplant recipient 01/03/2025 10:30 AM EDT - 01/03/2025 12:30 PM EDT Surgery [facility] Cardiac Registered Account Administrator [address] [place] [address] Luisa Yang MD Coronary angiography [90939 (CPT )] 01/03/2025 10:17 AM EDT - 01/03/2025 4:56 PM EDT Hospital Encounter [facility] Cardiac Registered Account Administrator [address] [place] [address] Luisa Yang MD Other cytomegaloviral diseases (Multi-HCC) (Primary Dx); Heart transplant recipient (Multi-HCC) Discharge Disposition: Home or self care 01/03/2025 Travel 01/02/2025 Orders Only [facility] Infectious Disease [address] [address] Lena Cortes NP 12/28/2024 11:30 AM EDT Office Visit [facility] Pulmonary [address] [phone] Daysi Fink MD Chronic cough (Primary Dx); Pulmonary sarcoidosis (Multi-HCC); 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); Cardiac sarcoidosis (HHS-HCC); Dyspnea and respiratory abnormality 12/28/2024 10:16 AM EDT - 12/28/2024 11:59 PM EDT Hospital Encounter [facility] Imaging [address] [place] [address] Cytomegalovirus infection, unspecified cytomegaloviral infection type (Multi-HCC); Tracheal stenosis; Pulmonary sarcoidosis (Multi-HCC) Discharge Disposition: Home or self care 12/28/2024 Travel 12/26/2024 Orders Only [facility] Infectious Disease [address] [phone] Lena Cortes STAFF MIDWIFE Cytomegalovirus (CMV) viremia (Multi-HCC) 12/20/2024 Results Follow-Up [facility] Infectious Disease [address] [phone] Lena Cortes STAFF MIDWIFE 12/19/2024 11:40 AM EDT - 12/19/2024 11:59 PM EDT Hospital Encounter [facility] Radiology [address] [place] [address] Other cytomegaloviral diseases (Multi-HCC); Heart transplant recipient (Multi-HCC) Discharge Disposition: Home or self care 12/19/2024 11:00 AM EDT Office Visit [facility] Cardiac Subspecialty [address] [phone] Bridger Hernandez MD Type 2 diabetes mellitus with other specified complication, unspecified whether penitentiary insulin use (Multi-HCC) (Primary Dx); Other cytomegaloviral diseases (Multi-HCC); Heart transplant recipient (Multi-HCC); Mixed hyperlipidemia ; Prostate cancer screening; Sarcoidosis 12/19/2024 7:36 AM EDT - 12/19/2024 11:39 AM EDT Hospital Encounter [facility] Cardiac Echo [address] [facility] [address] [place] [phone] Other cytomegaloviral diseases (Multi-HCC); Heart transplant recipient (Multi-HCC); Heart transplant rejection (Multi-HCC) Discharge Disposition: Home or self care 12/19/2024 Telephone [facility] Cardiac Subspecialty [address] [phone] Kailyn Hess Appointment; Follow-up 12/19/2024 Travel 12/14/2024 Orders Only [facility] Infectious Disease [address] [phone] Lena Cortes NP Heart transplant recipient (Multi-HCC) (Primary Dx); Other cytomegaloviral diseases (Multi-HCC) 12/13/2024 Refill [facility] Infectious Disease [address] [phone] Lena Cortes STAFF MIDWIFE Other cytomegaloviral diseases (Multi-HCC) 12/13/2024 Refill [facility] Cardiac Subspecialty [address] [phone] Jose Angel Nunez NP Heart transplant recipient (Multi-HCC) 12/13/2024 Refill [facility] Cardiology [address] [facility] [address] [place] [phone] Izaiah Martinez MD Heart transplant recipient (Multi-HCC) 12/13/2024 Refill [facility] Cardiology [address] [place] [phone] Pedro Kline MD Heart transplant recipient (Multi-HCC) 12/13/2024 Refill [facility] Cardiac Subspecialty [address] [phone] Sharon Savage NP Heart transplant recipient (Multi-HCC) 12/02/2024 Telephone [facility] Patient Access [address] [place] [address] Do, Barrera-Chi 11/21/2024 Telephone [facility] Cardiac Subspecialty [address] [phone] Kailyn Hess Appointment 11/16/2024 Telephone [facility] Cardiac Subspecialty [address] [phone] Kailyn Hess Appointment 11/15/2024 Refill [facility] Cardiology [address] [facility] [address] [place] [address] Pedro Kline MD Heart transplant recipient (Multi-HCC) 11/08/2024 Results Follow-Up [facility] Infectious Disease [address] [phone] Lena Cortes NP 11/07/2024 1:00 PM EDT Office Visit [facility] Infectious Disease [address] [phone] Chi Barton MD Other cytomegaloviral diseases (Multi-HCC) (Primary Dx); Immunosuppressed status (Multi-HCC); Heart transplant recipient (Multi-HCC); Preventative health care; Other fatigue; Upper airway cough syndrome 11/07/2024 12:15 PM EDT Office Visit [facility] Cardiac Subspecialty [address] [phone] Jose Angel Nunez NP Heart transplant recipient (Multi-HCC) (Primary Dx); Essential hypertension, benign ; Mixed hyperlipidemia ; Type 2 diabetes mellitus with other specified complication, unspecified whether penitentiary insulin use (Multi-HCC); Subglottic stenosis; Sarcoidosis; Pulmonary nodules; Other cytomegaloviral diseases (Multi-HCC); Observed seizure-like activity (Multi-HCC) 11/07/2024 Travel from Last 3 Months Immunizations Immunization [...] Vaccine Formula 12+ (Deferred: Not available from windows server specialist - Per pharmacy vaccine is out of [...] Description 02/02/2025 1:30 PM EDT Office Visit [facility] Lung Nodule [address] [phone] Alfred Mckeon MD [address]60 [place] [address] 02/02/2025 2:00 PM EDT Office Visit [facility] Lung Nodule [address] [phone] Yoav Portillo Lung Nod Pul 02/22/2025 2:00 PM EST Office Visit [facility] Neurology [address] [place] [phone] Percy Kapoor MD [facility] [address] [place] [address] 03/08/2025 1:00 PM EST Office Visit [facility] Dermatology 260 [place] [address] Nelida Ayala MD [address] [place] [address] 03/20/2025 12:00 PM EST Office Visit [facility] Cardiac Subspecialty 860 [facility] [address] [place] [phone] Charlie Barry MD [address] [place] [address] 07/12/2025 10:30 AM EDT Appointment [facility] Pulmonary Function Lab [address] [facility] [address] [facility] 5th Floor Room [address] [place] [phone] 07/12/2025 11:30 AM EDT Office Visit [facility] Pulmonary [address] [facility] [address] [place] [phone] Daysi Fink MD Health Maintenance Due Date Last Done Comments [...] this topic Medical Devices Implanted Type Area Seating Upholsterer Device Identifier Shelf Expiration Date Model / Serial / Lot Inbound Ingredient Logistics Specialist-D [employer] Icd-10/02/2022 Implanted:09/05 (Quantity not on file) FIELD OPERATOR-D ICD Chest [employer] Graft Hemashield Str 10x30 - [id number] Implanted:Qty: 1 on 12/22/2023 at [facility] Graft Right: Axilla GETINGE/MAQUET CARDIOVASCULAR 09/03/2028 [id number] / [id number] / Impella-9/17/2 024 Implanted:12/05 (Quantity not on file) Impella [...] mellitus with other specified complication, unspecified whether penitentiary insulin use (Multi-HCC) PSA TOTAL, SCREEN STAT [...] mellitus with other specified complication, unspecified whether marine oil terminal superintendent insulin use (Multi-HCC) DOBUTAMINE STRESS ECHO (82517) Routine 12/19/2024 9:38 AM EDT Heart transplant [...] EDT) 01/03/2025 12:1 1 PM EDT Narrative [facility] HEMO MERGE HEMO - 01/03/2025 5:21 PM EDT [facility] Adult Catheterization Lab [address] [place] [address] Right and Left Diagnostic Cardiac Catheterization and Biopsy Report Patient: Margarita Avila, Jose Angel Sky Physician: Jose Angel Nunez Attending Luisa Richter [...] Procedure Note Luisa Yang MD - 01/03/2025 [facility] Adult Catheterization Lab [address] [place] [address] Right and Left Diagnostic Cardiac Catheterization and [...] AM EDT) Case Report Surgical Pathology Case: [id number] Authorizing Provider: Jose Angel Nunez NP Collected: 01/03/2025 1120 Ordering Location: [facility] Received: 01/03/2025 1320 Cardiac Registered Account Administrator Pathologist: Ramos Kay MD Specimen: Heart, R ventricle Bx post Tx 01/04/2025 4:36 PM EDT [facility] ANATOMIC PATHOLOGY LAB Final Diagnosis A. 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 - There is no evidence of antibody mediated rejection, pAMR 0. Note: There are adequate fragments of myocardium for evaluation. Immunohistochemical stain for C4d and CD68 are negative. Trichrome stain shows subendocardial fibrosis. Cardiac transplant team (Jose Angel Nunez) notified via tiger text at 11:15AM Controls show appropriate reactivity. 01/04/2025 4:36 PM EDT [facility] ANATOMIC PATHOLOGY LAB at 1636 EDT [...] toto in A1. Grossed by DANY Wong PA([facility])CM on 01/03/25 at 1:26 PM. 01/04/2025 4:36 PM EDT [facility] ANATOMIC PATHOLOGY LAB Disclaimer The interpretation [...] show appropriate reactivity. 01/04/2025 4:36 PM EDT [facility] ANATOMIC PATHOLOGY LAB Tissue Heart structure / Unknown 01/03/2025 11:20 AM EDT 01/03/2025 1:20 PM EDT Jose Angel Nunez NP LAB PATHOLOGY ORDERABLES Final Result [facility] ANATOMIC PATHOLOGY LAB [address] [place] [address], * (ABNORMAL) CBC w/ Differential (01/03/2025 11:10 AM EDT) WBC 2.7(L) 4.0 - 11.0 K/uL 01/03/2025 11:41 AM EDT [facility] RBC 3.82(L) 4.20 - 5.90 M/uL 01/03/2025 11:41 AM EDT [facility] Hemoglobin 11.3(L) 13.0 - 17.5 g/dL 01/03/2025 11:41 AM EDT [facility] Hematocrit 33.5(L) 37.0 - 53.0 % 01/03/2025 11:41 AM EDT [facility] MCV 87.7 80.0 - 100.0 fL 01/03/2025 11:41 AM EDT [facility] MCH 29.6 26.0 - 34.0 pg 01/03/2025 11:41 AM EDT [facility] MCHC 33.7 31.0 - 37.0 g/dL 01/03/2025 11:41 AM EDT [facility] RDW-CV 12.8 11.5 - 14.5 % 01/03/2025 11:41 AM EDT [facility] RDW-SD 40.4 35.0 - 51.0 fL 01/03/2025 11:41 AM EDT [facility] Platelets 122(L) 150 - 400 K/uL 01/03/2025 11:41 AM EDT [facility] MPV 9.7 9.1 - 12.4 fL 01/03/2025 11:41 AM EDT [facility] Neutrophil % 65.5 % 01/03/2025 11:41 AM EDT [facility] Lymphocyte % 20.0 % 01/03/2025 11:41 AM EDT [facility] Monocytes % 5.6 % 01/03/2025 11:41 AM EDT [facility] Eosinophils % 5.2 % 01/03/2025 11:41 AM EDT [facility] Basophils % 0.4 % 01/03/2025 11:41 AM EDT [facility] Immature Granulocytes % 3.3 % 01/03/2025 11:41 AM EDT [facility] NRBC % 0.0 0.0 - 0.0 % 01/03/2025 11:41 AM EDT [facility] Neutrophils Absolute 1.77 1.50 - 7.95 K/uL 01/03/2025 11:41 AM EDT [facility] Lymphocytes Absolute 0.54(L) 0.70 - 4.00 K/uL 01/03/2025 11:41 AM EDT [facility] Monocytes Absolute 0.15(L) 0.38 - 0.83 K/uL 01/03/2025 11:41 AM EDT [facility] Eosinophils Absolute 0.14 0.00 - 0.50 K/uL 01/03/2025 11:41 AM EDT [facility] Basophils Absolute 0.01 0.00 - 0.22 K/uL 01/03/2025 11:41 AM EDT [facility] Immature Granulocytes Absolute 0.09 0.00 - 0.10 K/uL 01/03/2025 11:41 AM EDT [facility] NRBC Absolute 0.00 0.00 - 2.00 K/uL 01/03/2025 11:41 AM EDT [facility] Blood Venous blood specimen / Unknown Venipuncture / Unknown 01/03/2025 11:10 AM EDT 01/03/2025 11:34 AM EDT us Zeina Maradiaga MD LAB BLOOD ORDERABLES Final Result [facility] [address] [place] [address], * Tacrolimus level (01/03/2025 11:10 AM EDT) Only the most recent of3 resultswithin the time period is included. [facility] Tacrolimus, LC-MS/MS 7.5 3.0 - 20.0 ng/mL 01/03/2025 3:15 PM EDT [facility] Comment:Performed by LC-MS/M S. Reference intervals are based on trough collection. Optimal therapeutic ranges depend on time post-transplant, dosing regimen, organ type, and concomitant immunosuppression therapy. Results should be interpreted in conjunction with physical signs/symptoms of rejection/toxicity. This test was developed and its performance characteristics determined by [facility]. It has not been cleared or approved by the FDA. The laboratory is regulated under CLIA as qualified to perform high-complexity testing. This test is used for clinical purposes. It should not be regarded as investigational or for research. Time of last dose 025 3:15 PM EDT [facility] Date of last dose 3:15 PM EDT [facility] Blood Venous blood specimen / Unknown Venipuncture / Unknown 01/03/2025 11:10 AM EDT 01/03/2025 11:34 AM EDT Zeina Maradiaga MD LAB BLOOD ORDERABLES Final Result [facility] [address] [place] [address], * (ABNORMAL) CMV Quant DNA, RT-PCR, BLOOD (01/03/2025 11:10 AM EDT) Only the most recent of4 resultswithin the time period is included. CMV DNA Viral Load 130(H) Not Detected IU/mL [facility] GABINOTY M 2 01/03/2025 4:19 PM EDT [facility] Comment:DETECTED CMV DNA Viral Load, log 2.11(H) Not Detected log IU/mL 01/03/2025 4:19 PM EDT [facility] CMV DNA Viral Load, Interp Detected( A) Not Detected [facility] DruidlyNITY M 01/03/2025 4:19 PM EDT [facility] Blood Venous blood specimen / Unknown Venipuncture / Unknown 01/03/2025 11:10 AM EDT 01/03/2025 11:34 AM EDT Narrative [facility] - 01/03/2025 4:19 PM EDT This test was performed using the [employer]ates Alinity m CMV DNA assay, performed on the PingMe ALinity m instrument Lena Cortes STAFF MIDWIFE LAB BLOOD ORDERABLES Fin al Result [facility] [address] [place] [address], * Protime/INR (01/03/2025 11:10 AM EDT) Protime 12.0 9.7 - 14.0 seconds 01/03/2025 11:55 AM EDT [facility] INR 1.04 See Comment 01/03/2025 11:55 AM EDT [facility] Comment: NORMAL PATIENTS NOT ON ANTICOAGULANTS: INR: 0.9-1.3 RECOMMENDED INR WITH WARFARIN/COUMADIN THERAPY: INR: 2.00-3.00 Deep vein thrombosis Atrial Fibrillation Tissue Prosthetic Valve Stroke Prevention INR:2.50-3.50 Mechanical Prosthetic Valve and Recurrent Systemic Embolism Blood Venous blood specimen / Unknown Venipuncture / Unknown 01/03/2025 11:10 AM EDT 01/03/2025 11:34 AM EDT Zeina Maradiaga MD LAB BLOOD ORDERABLES Final Result Performing Organization Address [facility] Co de Phone Number [facility] [address] [place] [address], [place] * Magnesium (01/03/2025 11:10 AM EDT) Only the most recent of3 resultswithin the time period is included. Magnesium 1.7 1.6 - 2.6 mg/dL 01/03/2025 12:13 PM EDT [facility] Blood Venous blood specimen / Unknown Venipuncture / Unknown 01/03/2025 11:10 AM EDT 01/03/2025 11:33 AM EDT Zeina Maradiaga MD LAB BLOOD ORDERABLES Final Result Performing Organization Address City/[facility] Co de Phone Number [facility] [address] [place] [address], [place] * (ABNORMAL) Comprehensive metabolic panel (01/03/2025 11:10 AM EDT) Only the most recent of3 resultswithin the time period is included. Sodium 145 135 - 146 mmol/L 01/03/2025 12:13 PM EDT [facility] Potassium 4.4 3.6 - 5.2 mmol/L 01/03/2025 12:13 PM [facility] Comment:Specimen hemolyzed r esult may be falsely increased up to 1.0 mmol/L. Chloride 106 98 - 110 mmol/L 01/03/2025 12:13 PM EDT [facility] CO2 (Bicarbonate) 24 20 - 32 mmol/L 01/03/2025 12:13 PM EDT [facility] Anion Gap 15(H) 3 - 14 mmol/L 01/03/2025 12:13 PM EDT [facility] BUN 17 6 - 24 mg/dL 01/03/2025 12:13 PM [facility] Creatinine 0.98 0.55 - 1.30 mg/dL 01/03/2025 12:13 PM EDT [facility] eGFRcr 83 >=60 mL/min/1.7 3m*2 01/03/2025 12:13 PM [facility] Comment:Calculated using CKD -EPI 2020 creatinine equation. Glucose 133(H) 70 - 99 mg/dL 01/03/2025 12:13 PM [facility] Fasting? Yes [facility] [place] INFINITY 01/03/2025 12:13 PM [facility] Calcium 9.9 8.5 - 10.5 mg/dL 01/03/2025 12:13 PM EDT [facility] AST 24 6 - 42 U/L 01/03/2025 12:13 PM EDT [facility] ALT 9 0 - 55 U/L 01/03/2025 12:13 PM EDT [facility] Alkaline phosphatase 54 30 - 130 U/L 01/03/2025 12:13 PM EDT [facility] Protein, total 7.0 6.0 - 8.4 g/dL 01/03/2025 12:13 PM [facility] Albumin 4.6 3.2 - 5.0 g/dL 01/03/2025 12:13 PM EDT [facility] Bilirubin, total 0.5 0.2 - 1.2 mg/dL 01/03/2025 12:13 PM EDT [facility] Blood Venous blood specimen / Unknown Venipuncture / Unknown 01/03/2025 11:10 AM EDT 01/03/2025 11:33 AM EDT Zeina Maradiaga MD LAB BLOOD ORDERABLES Final Result [facility] [address] [place] [address], [place] * CT HIGH RESOLUTION CHEST WO [...] GENDER: Male ORD PHYS: DAYSI FINK LOCATION: [facility] 12/28/2024 10:46 AM EDT [id number] (CT HIGH RESOLUTION CHEST WO CONTRAST) [id number] Provided History: Pulmonary sarcoidosis and tracheal stenosis [...] GENDER: Male ORD PHYS: DAYSI FINK LOCATION: [facility] 12/28/2024 10:46 AM EDT [id number] (CT HIGH RESOLUTION CHEST WO CONTRAST) [id number] Provided History: Pulmonary sarcoidosis and tracheal stenosis [...] 9:08 AM EDT us Daysi Fink MD IM CT PROCEDURES Final Re sult * XR CHEST 2 VIEWS (12/19/2024 12:44 PM EDT) Anatomical Region Laterality Modality Chest Computed Radiogr aphy 12/19/2024 1:13 PM EDT Impressions 12/19/2024 1:16 PM EDT No acute cardiopulmonary abnormality. APPROVED BY STAFF RADIOLOGIST: DENISHA MCKEON 12/19/2024 1:16 PM EDT Narrative 12/19/2024 1:16 PM EDT NAME: AMTTHEW AVILA : 1955 AGE: 69 years GENDER: Male ORD PHYS: BRIDGER DAVID LOCATION: [facility] 12/19/2024 12:44 PM EDT [id number] (XR CHEST 2 VIEWS) [id number] REASON FOR STUDY: cardiac transplantation TECHNIQUE: PA and lateral views of the chest Comparison: 10/03/2024 FINDINGS: The heart and sternal wires are unchanged. There is no pneumothorax or congestion or focal consolidation or pleural effusion. No new mediastinal widening. No acute bony changes. [place] overlie the upper lateral right hemithorax as previously. Procedure Note Denisha Mckeon MD - 12/19/2024 NAME: MATTHEW AVILA : 1955 AGE: 69 years GENDER: Male ORD PHYS: BRIDGER HERNANDEZ LOCATION: [facility] 12/19/2024 12:44 PM EDT IMG36 (XR CHEST 2 VIEWS) [id number] REASON FOR STUDY: cardiac transplantation TECHNIQUE: PA and lateral views of the chest Comparison: 10/03/2024 FINDINGS: The heart and sternal wires are unchanged. There is nopneumothorax or congestion or focal consolidation or pleural effusion. Nonew mediastinal widening. No acute bony changes. Lovely overlie the upperlateral right hemithorax as previously. [...] - 12/20/2024 6:45 AM EDT Performed at: [facility] [id number] Journal Entry Audit Clerk: Iram Zambrano MD, Phone: [phone] Bridger Hernandez MD LAB BLOOD ORDERABLES Final Resu lt [facility] [address] [place] [address], [facility] 1 * PSA Total, Screen (Male patients only) (12/19/2024 12:15 PM EDT) Pathologist [facility] PSA TOTAL 2.7 0.0 - 4.0 ng/mL [facility] 1 Comment: [place] ECLIA methodology. According to the [place] [employer], Serum PSA should decrease and [...] - 12/20/2024 7:45 AM EDT Performed at: [facility] [id number] Journal Entry Audit Clerk: Iram Zambrano MD, Phone: [phone] us Bridger Hernandez MD LAB BLOOD ORDERABLES Final Resu lt [facility] [address] [place] [address], [facility] 1 * (ABNORMAL) CBC and differential [...] 12/19/2024 3:15 PM EDT Performed at: [address] [place] [id number] Journal Entry Audit Clerk: Jim Henning [facility], Phone: [phone] us Bridger Hernandez MD LAB BLOOD ORDERABLES Final Resu lt [facility] [address] [place] [address], [facility] 1 * Uric Acid (12/19/2024 12:15 PM EDT) Only the most recent of2 resultswithin the time period is included. [facility] Uric Acid 5.2 2.6 - 8.0 mg/dL [facility] 1 Comment: Although the reference interval for men extends up to 8.0 mg/dL, patients with gout may benefit from uric acid levels <6.0 mg/dL. Blood Venous blood specimen / Unknown 12/19/2024 12:15 PM EDT 12/19/2024 Narrative [facility] - 12/19/2024 3:15 PM EDT Performed at: [address] [place] [id number] Journal Entry Audit Clerk: Jim Henning [facility], Phone: [phone] Bridger Hernandez MD LAB BLOOD ORDERABLES Final Resu lt Performing Organization Address City/[facility]/ZIP Co de Phone Number [facility] [address] [place] [address], [facility] 1 * Phosphorus (12/19/2024 12:15 PM EDT) Only the most recent of2 resultswithin the time period is included. Phosphorus 3.9 2.4 - 4.9 mg/dL [facility] 1 Blood Venous blood specimen / Unknown 12/19/2024 12:15 PM EDT 12/19/2024 Narrative [facility] - 12/19/2024 3:15 PM EDT Performed at: [address] [place], [place] [id number] Journal Entry Audit Clerk: Jim Henning [facility], Phone: [phone] us Bridger Hernandez MD LAB BLOOD ORDERABLES Final Resu lt Performing Organization Address [facility] Co de Phone Number [facility] [address] [place] [address], [facility] 1 * (ABNORMAL) Lactate dehydrogenase (12/19/2024 12:15 PM EDT) Only the most recent of2 resultswithin the time period is included. LDH 369(H) 110 - 250 U/L [facility] 1 Blood Venous blood specimen / Unknown 12/19/2024 12:15 PM EDT 12/19/2024 Narrative [facility] - 12/19/2024 3:15 PM EDT Performed at: [address] [place] [id number] Journal Entry Audit Clerk: Jim Henning [facility], Phone: [phone] us Bridger Hernandez MD LAB BLOOD ORDERABLES Final Resu lt Performing Organization Address City/[facility]/ZIP Co de Phone Number [facility] [address] [place] [address], [facility] 1 * (ABNORMAL) Hemoglobin A1c (12/19/2024 12:15 PM EDT) Pathologist [facility] HgbA1C 6.5(H) 4.8 - 5.6 % [facility] 1 Comment: Prediabetes: 5.7 - 6.4 Diabetes: >6.4 Glycemic control for adults with diabetes: <7.0 Blood Venous blood specimen / Unknown 12/19/2024 12:15 PM EDT 12/19/2024 Narrative [facility] - 12/20/2024 4:05 AM EDT Performed at: [address] [id number] Journal Entry Audit Clerk: Iram Zambrano MD, Phone: [phone] us Bridger Hernandez MD LAB BLOOD ORDERABLES Final Resu lt Performing Organization Address [facility] Co de Phone Number [facility] [address] [place] [address], [facility] 1 * CK (aka CPK) (12/19/2024 12:15 PM EDT) Only the most recent of2 resultswithin the time period is included. Pathologist [facility] CK Total 41 41 - 331 U/L [facility] 1 Blood Venous blood specimen / Unknown 12/19/2024 12:15 PM EDT 12/19/2024 Narrative [facility] - 12/20/2024 7:45 AM EDT Performed at: [address] [id number] Journal Entry Audit Clerk: Iram Zambrano MD, Phone: [phone] us Bridger Hernandez MD LAB BLOOD ORDERABLES Final Resu lt Performing Organization Address City/[facility] Co de Phone Number [facility] [address] [place] [address], [facility] 1 * Hepatic function panel (12/19/2024 12:15 PM EDT) Only the most recent of2 resultswithin the time period is included. [facility] Bilirubin, Direct 0.2 0.0 - 0.5 mg/dL [facility] 1 Blood Venous blood specimen / Unknown 12/19/2024 12:15 PM EDT 12/19/2024 Narrative [facility] - 12/19/2024 3:15 PM EDT Performed at: [address] [place] [address] [id number] Journal Entry Audit Clerk: Jim Henning [facility], Phone: [phone] Bridger Hernandez MD LAB BLOOD ORDERABLES Final Resu lt Performing Organization Address City/[facility]/ZIP Co de Phone Number [facility] [address] [place] [address], [facility] 1 * (ABNORMAL) Lipid panel (12/19/2024 12:15 PM EDT) Only the most recent of2 resultswithin the time period is included. [facility] Cholesterol 146 100 - 199 mg/dL [...] - 12/20/2024 6:45 AM EDT Performed at: [address] [place] [id number] Journal Entry Audit Clerk: Iram Zambrano MD, Phone: [phone] Bridger Hernandez MD LAB BLOOD ORDERABLES Final Resu lt Performing Organization Address City/[facility]/ZIP Co de Phone Number [facility] [address] [place] [address], [facility] 1 * ECG 12 lead [[facility]: Epiphany] Normal (12/19/2024 10:45 AM EDT) 12/19/2024 10:4 5 AM EDT Narrative [facility] STRESS/ECG EPIPHANY CARDIOSERVER - 12/19/2024 5:05 PM EDT [facility] Test Date: 2024-12-19 Pat Name: MATTHEW AVILA Department: [facility] Room: Gender: Male Supervisor: : 1955 Requested By: BRIDGER HERNANDEZ Order Number: [id number] Reading MD: Lacho Bauer Measurements Intervals [place] Rate: 91 P: 59 ID: 145 QRS: 40 QRSD: 77 T: 24 QT: 339 QTc: 417 Interpretive Statements Sinus rhythm Probable anteroseptal infarct, old Compared to ECG 12/31/2023 07:37:42 Sinus rhythm now more clearly present Electronically Signed On 12-19-2024 17:05:32 EDT by Lacho Bauer us Bridger Hernandez MD ECG ORDERABLES Final Result [facility] STRESS/ECG EPIPHANY CARDIOSERVER * DOBUTAMINE STRESS ECHO (33711) (12/19/2024 9:38 AM EDT) 12/19/2024 8:40 AM EDT Narrative [facility] PACS/REPORTING KRZYSZTOF ISCV - 12/19/2024 11:15 AM EDT Cardiovascular Imaging Hemodynamic Laboratory [address] [place] [address] Stress Echocardiogram Name: MATTHEW TORO Study Date: 12/19/2024 08:40 AM : 1955 Gender: Male Age: 69 yrs Ethnicity: OTHER Patient Location: [facility] Referring Physician: JOSE ANGEL NUNEZ Performed By: Osiel Michelle Ordering Physician: JOSE ANGEL NUNEZ Reason For Study: cardiac transplantation Height: 68 in Weight: 135 lb BSA: 1.7 m2 BP: 120/58 mmHg CPT/Quality/Location Stress Echo (99077). Stress Echo interp & report (69676). Supply - dobutamine. Location performed: Department. The [...] Russ MD - 12/19/2024 [facility]odynamic[facility]atory [address] [place] [address] StressEchocardiogram Name: MARGARITA AVILA MATTHEWYASIR ROBINS Study Date: 508:40 AM : 1955 Gender: Male Age: 69 yrs Ethnicity: OTHER Patient Location: [facility] Referring Physician: JOSE ANGEL NUNEZ Performed By: Osiel Michelle Ordering Physician: JOSE ANGEL NUNEZ Reason For Study: cardiac transplantation Height: 68 in Weight: 135 lb BSA: 1.7 m2 BP:120/58 mmHg CPT/Quality/Location Stress Echo (20161). Stress Echo interp & report (27276). Supply -dobutamine. Location performed: Department. The quality [...] Nunez NP CV ECHO PROCEDURES Final Result [facility] PACS/REPORTING KRZYSZTOF ISCV * ALLOMAP HEART (11/07/2024 2:20 PM EDT) ALLOMAP SCORE - HEART 32 11/09/2024 1:01 AM EDT [facility] ([facility]) 95% CONFIDENCE INTERVAL 95% CI:30.1-3 4.8 11/09/2024 1:01 AM EDT [facility] ([facility]) NEGATIVE PREDICTIVE VALUE 99.0% 11/09/2024 1:01 AM EDT [facility] ([facility]) POSITIVE PREDICTIVE VALUE 2.9% 11/09/2024 1:01 AM EDT [facility] ([facility]) TIME POST TX 0y 10m 12d 11/09/2024 1:01 AM EDT [facility]) TEST COMMENTS ([facility]H) <None Specified > 11/09/2024 1:01 AM EDT [facility] ([facility]) NOTES ([facility]) See Note 11/09/2024 1:01 AM EDT [facility] ([facility]) Comment: Interpretation of AlloMap score should be made using the information available at the following link: http://www.allomap.com AlloMap testing performed at [facility], [employer]. (CLIA No: [id number], CAP No: [id number]) Journal Entry Audit Clerk: Axel Jamar Osiel, M.D. These AlloMap test results are displayed here for your convenience. The pdf AlloMap report is the official report. The following data chamorro on the Results Details page are intentionally left empty as they are not applicable to AlloMap testing: Abnormal Units TX DATE 4 11/09/2024 1:01 AM EDT [facility] ORDER ID [id number] 11/09/2024 1:01 AM EDT [facility] CENTER ORDER ID [id number] 11/09/2024 1:01 AM EDT [facility] WP ORDER ID <None Specified > 11/09/2024 1:01 AM EDT [facility]) Blood Venous blood specimen / Unknown Venipuncture / Unknown 11/07/2024 2:20 PM EDT 11/07/2024 2:48 PM EDT Jose Angel Nunez STAFF MIDWIFE LAB BLOOD ORDERABLES Final Resu lt [facility] ([facility]) [address] [place], [place] [id number] * ALLOSURE HEART (11/07/2024 2:20 PM EDT) ALLOSURE SCORE < 0.04 % 11/09/2024 7:45 PM EDT [facility]) TIME POST TX 0y 10m 12d 11/09/2024 7:45 PM EDT [facility] TEST COMMENTS (ASHK) <None Specified> 11/09/2024 7:45 PM EDT [facility] NOTES (ASHK) See Note 11/09/2024 7:45 PM EDT [facility]) Comment: INTERPRETATION OF RESULTS Instructions for Interpreting [...] (2)(3) See the HeartCare interpretation guide at [email or web address] for information on HeartCare, AlloSure Heart and [...] more information about AlloSure Heart, please visit [email or web address]. (1)Nik et al., J Heart Lung Transplant 2023; (2)Nik et al., Am J Transplant 2019; (3)Data on file for patients <15 years old. The AlloSure Heart Donor-Derived Cell-Free DNA Test was developed and its performance characteristics were determined by the [facility] laboratory. The test has not been cleared or approved by the U.S. Food and Drug Administration. The laboratory is certified under the Clinical Laboratory Improvement Amendments of 1988 (CLIA '88) and accredited by the College of [employer] (CAP) as qualified to perform high complexity clinical laboratory testing. The contents of this report are confidential and intended solely for use by authorized personnel. AlloSure testing performed at [facility] [address] [place] [address] (CLIA No: [id number], CAP No: [id number]) Journal Entry Audit Clerk: Axel Cartagena M.D. [facility] Heart 2024 7:45 PM EDT [facility] ([facility]) CLIENT SPECIMEN ID <None Specified> 11/09/2024 7:45 PM EDT [facility] ([facility]) [place] DATE 12/28/2023 11/09/2024 7:45 PM EDT [facility] ([facility]) DONOR RELATION Unrelated 11/09/2024 7:45 PM EDT [facility] ([facility]) [facility] ORDER ID [id number] 11/09/2024 7:45 PM EDT [facility] ([employer]) CENTER ORDER ID [id number] 11/09/2024 7:45 PM EDT [facility] ([employer]) WP ORDER ID <None Specified> 11/09/2024 7:45 PM EDT [facility] ([facility]) Blood Venous blood specimen / Unknown Venipuncture / Unknown 11/07/2024 2:20 PM EDT 11/07/2024 2:49 PM EDT us Jose Angel Nunez STAFF MIDWIFE LAB BLOOD ORDERABLES Final Resu lt [facility] ([facility]) [address] [place] [id number] * IgG (11/07/2024 2:16 PM EDT) Pathologist [facility] IgG 760 603 - 1,613 mg/dL [facility] 1 Blood Venous blood specimen / Unknown 11/07/2024 2:16 PM EDT 11/07/2024 Narrative [facility] - 11/08/2024 6:15 AM EDT Performed at: 01 - [facility] [id number] Journal Entry Audit Clerk: Iram Zambrano MD, Phone: [phone] Lena Cortes STAFF MIDWIFE LAB BLOOD ORDERABLES Fin al Result [facility] [address] [facility] 1 * Hepatitis C Virus RNA, Quantitative, RT-PCR (01/26/2024 10:30 AM EDT) Pathologist [facility] HCV RNA by RT-PCR [facility] 01/27/2024 2:18 PM EDT [facility] Comment:Not Detected HCV RNA Viral Load, log [facility] 01/27/2024 2:18 PM EDT [facility] Comment:Not Detected HCV RNA Viral Load, Interp Not Detected Not Detected [facility] 01/27/2024 2:18 PM EDT [facility] Blood Venous blood specimen / Unknown Venipuncture / Unknown 01/26/2024 10:30 AM EDT 01/26/2024 11:13 AM EDT Narrative [facility] - 01/27/2024 2:18 PM EDT This test was performed using the Mobile Messenger[employer]ity m HCV assay, performed on the Inverted Edge instrument. The lower limit of quantification is 12 IU/mL. Chi Barton MD LAB BLOOD ORDERABLES Final Resu lt [facility] [address] [place] [address], * Albumin, Urine, Random (Microalbumin Random, Including Creatinine) (11/26/2023 1:50 PM EDT) Pathologist [facility] Albumin, urine (INT/EXT) <1.2 mg/dL 11/26/2023 2:44 PM EDT [facility] Creatinine, urine, random (INT/EXT) 47.40 24.00 - 392.00 mg/dL 11/26/2023 2:44 PM EDT [facility] Albumin/Creatini ne ratio 11/26/2023 2:44 PM EDT [facility] Comment:Unable to calculate due to below or above Analytical Measurement Range. Urine Urine specimen / Unknown Non-blood Collection / Unknown 11/26/2023 1:50 PM EDT 11/26/2023 1:50 PM EDT Pedro Kline MD LAB URINE ORDERABLES Maral l Result [facility] [address] [place] [address], from Last 3 Months or Most Recently Relevant to Health Maintenance Insurance MEDICARE PART A AND B [employer] SAF[employer] NET MEDICARE PART A AND B [employer] SAFET[employer] NET Advance Directives Documents on File Type Date Recorded Patient Production Operations Engineer Expl anation Advance Directives and Living Will 11/25/2023 Lloyd Ahmadi Health Care Proxy * Full Code (Latest Code Status on File) Date Activated Date Inactivated Comments 11/24/2023 12:16 AM 01/20/2024 1:17 PM Healthcare Agents on File Name Relationship Healthcare Agent Relationship Communication Aleisha Ahmadi Spouse Health Care Agent [email or web address] Lloydmadyson Avila Ministerio Son First Alte rnate Health Care Agent Care Teams Tone Cabinet Assembler Relationship Specialty Start Date End Date Name, MD Yoandy [address] [place] [address] PCP - General Bakery Pastry Internship 11/12/23 Glenn Herman MD [address] [place] [address] Referring Physician Cardiology 11/12/23 Edward Handley, Juan Supervisor Pharmacy 12/31/23 Jennie Michelle, PharmD [address] [place] [address] Pharmacist Pharmacy 01/27/24 Bridger Hernandez MD [address] [place] [address] [place], [place] [address] [place] [address] Attending Physician Cardiology 12/19/24
--- OUTSIDE RECORDS SUMMARY | 2025-01-27 16:40 | XMS_ITS ---
Author Organization [facility] Address [address] [facility], [address] [place] [address] Care Team Providers Care Education Sales Consultant Name Role Phone Glenn Herman MD Unavailable [phone] NameYoandy MD Primary Care Provider [phone] Edward Handley personnel officer Unavailable Unavailable Jennie Michelel PharmD Unavailable [phone] Juan Hutchinson MD Unavailable [phone] Transplant Episode Heart Recipient [facility] ([place], [place]) - MAN Organ Received: Heart Transplanted on 12/28/2023 Marked as Active Follow-up on 12/28/2023 Heart CoordinatorZackery Paulino RN Phone: N/A Fax: N/A Email: N/A [place] Organ Diagnosis Organ Primary Contributory Heart Dilated [...] Role Phone Fax Email Zackery Paulino RN Clinical Practitioner N/A N/A N/A Glenn Herman MD Referring Physician [phone] N/A Izaiah Watt MD Comfort Filler [phone] N/A Events Post-Transplant Pre-Transplant Admitted: 11/23/2023 Referred: 11/09/2023 Transplanted: 12/28/2023 Evaluation began: 4 Discharged: 01/14/2024 Committee: 12/21/2023 Center waitlisted: 4 Appointments (12/28/2024 - 02/27/2025) When With Visit Type Description 12/28/[address] Chest without Contrast Cy tomegalovirus infection, unspecified cytomegaloviral infection type (Multi-HCC); Tracheal stenosis; Pulmonary sarcoidosis (Multi-HCC)
--- OUTSIDE RECORDS SUMMARY | 2025-01-27 16:40 | XMS_ITS | Encounter Summary ---
Author Organization [facility] Address [address] [facility] [address] [place] [address] Care Team Providers Care Glazing Machine Operator Name Role Phone Glenn Herman MD Unavailable [phone] NameYoandy MD Primary Care Provider Edward Handley director child Unavailable Unavailable Jennie Michelle PharmD Unavailable Juan Hutchinson MD Unavailable [phone] Encounter Details Date Type Department Care Team (Late st Contact Info) Description 12/20/2024 Results Follow-Up [facility] Infectious Disease [address] [facility] 3rd [place] [address] Lena Cortes, ROADS [employer]ARK[employer] SWEEPER OPERATOR [address] [place] [phone] Social History Tobacco Use Types Packs/Day Years [...] Description 02/02/2025 1:30 PM EDT Office Visit [facility] Lung Nodule [address] [address] Alfred Mckeon MD [address] [place] [address] 02/02/2025 2:00 PM EDT Office Visit [facility] Lung Nodule [address] [address] Yoav Portillo Lung Nod Pul 02/22/2025 2:00 PM EST Office Visit [facility] Neurology [address] [place] [address] Percy Kapoor MD [address] [address] 03/08/2025 1:00 PM EST Office Visit [facility] Dermatology [address] [place] [address] Nelida Ayala MD [address] [place] [address] 03/20/2025 12:00 PM EST Office Visit [facility] Cardiac Subspecialty [address] [phone] Charlie Barry MD [address] [place] [address] 07/12/2025 10:30 AM EDT Appointment [facility] Pulmonary Function Lab [address] [facility] [address] 5[address] Floor Room [address] [place] [address] 07/12/2025 11:30 AM EDT Office Visit [facility] Pulmonary [address] [facility] [address] [place] [address] Daysi Fink MD documented as of this encounter Visit Diagnoses Not on filedocumented in this encounter Care Teams Glazing Machine Operator Relationship Specialty Start Date End Date Name, MD Yoandy [address] [place] [address] PCP - General Occup Therapist 11/12/23 Glenn Herman MD [address] [place] [address] Referring Physician Cardiology 11/12/23 Edward Handley CPhT Junior Loan Processor Pharmacy 12/31/23 Jennie Michelle, PharmD [address] [place] [address] Pharmacist Pharmacy 01/27/24 Juan Hutchinson MD [address] [facility] [address] [place] [address] Attending Physician Cardiology 12/19/24 documented as of this encounter
--- OUTSIDE RECORDS SUMMARY | 2025-01-27 16:40 | XMS_ITS ---
Author Organization [facility] Address [address] [facility], [address] [place] [address] Care Team Providers Care Retail Pharmacy Manager Name Role Phone Glenn Herman MD Unavailable [phone] NameYoandy MD Primary Care Provider [phone] Edward Handley CPhT Unavailable Unavailable Jennie Michelle PharmD Unavailable [phone] Juan Hutchinson MD Unavailable [phone] RxSp Transplant Status:Enrolled (Active) Start date:12/31/2023 [...] Name Relationship Phone Edward Handley CPhT(Responsible Staff) Wax Pattern Assembler Jennie Michelle PharmD Pharmacist [phone] Continued Care and Services Coordination
== END 2025-01-27 16:12 | disposition home or self-care (01) ==
LOC: HO.ENCR 15:00
PROVIDERS: PCP Internal Medicine Geriatric Medicine; Visit Provider Student in an Organized Health Care Education/Training Program
DX: E11.8 Type 2 diabetes mellitus with unspecified complications (principal)
CPT/HCPCS: 99214

== ENCOUNTER 2025-02-01 10:23 | Outpatient (REF) | payer MEDICARE, SELFPAY ==
--- OUTSIDE RECORDS SUMMARY | 2025-02-01 12:55 | XMS_ITS | Encounter Summary ---
Author Organization [employer] Address [address] [facility] 7t [place] [address] Care Team Providers Care Rn Or Lvn Name Role Phone Name, Yoandy LUGO Primary Care Provider [phone] Name, Yoandy LUGO Primary Care Provider [phone] Reason for Visit * Reason Onset Date Comments FYI 10/01/2022 Encounter Details Date Type Department Care Team ([facility] st Contact Info) Description 10/01/2022 Telephone [facility] MEDICINE [address] [place], [place] [phone] Name, MD Yoandy [address] [place] [address] FYI Social History Tobacco Use Types Packs/Day [...] 10/01/2022 3:26 PM EDT Tc from spouse [facility] facility that patient during their vacation in [place] had two Heart Attacks and is currently hospitalized since 09/15/2022 at the [facility] documented in this encounter Plan of Treatment Upcoming Encounters Date Type Department Care Team (Late st Contact Info) Description 02/20/2025 10:00 AM EST Office Visit [facility] MEDICINE [address] [place] [address] Name, MD Yoandy [address] [place] [address] documented as of this encounter Visit Diagnoses Not on filedocumented in this encounter Care Teams Rn Or Lvn Relationship Specialty Start Date End Date Name, MD Yoandy [address] [place] [address] PCP - General Family Medicine 01/18/21 06/04/23 Name, MD Yoandy [address] [place] [address] PCP - General Internal Medicine 10/19/23 [facility] 01/19/24 documented as of this encounter
--- OUTSIDE RECORDS SUMMARY | 2025-02-01 12:55 | XMS_ITS | Clinical Summary ---
Author Organization [employer] [facility] Address [facility] [employer] [address] [place] [address] Phone Care Team Providers Care Checkerer Hand Name Role Phone Name, Yoandy LUGO Primary Care Provider [phone] Social History Tobacco Use Types Packs/Day Years [...] Payer (Ef fective 2020-Present) Name:Matthew Toro Member ID:[id number] Relation to Subscriber:Self Name:Matthew Toro Subscriber ID:[id number] Payer ID:[id number] Group ID:Not on file Type:Medicare Address: [employer] [facility]. [address] [place] [address] [facility] [address] [place] [address] MEDICARE PART A & [place] [id number] [facility] [address] [place] [address] MEDICARE PART A & B [facility] FULL Member Subscriber Plan / Payer (Ef fective 2023-Present) Name:Matthew Toro Relation to Subscriber:Self Name:Matthew Toro Payer ID:Not on file Group ID:Not on file Type:Medicaid Address: [address] MEDICARE PART A & B [facility] SAFETY NET FULL MEDICARE PART A & B [facility] SAFETY NET FULL Member Subscriber Plan / Payer (Ef fective 2023-Present) Name:Matthew Toro Relation to Subscriber:Self Name:Avila Margarita Matthew Donny Payer ID:Not on file Group ID:Not on file Type:Medicaid [address] [place] [place] [id number] [facility] FULL B Care Teams Checkerer Hand Relationship Specialty Start Date End Date Name, MD Yoandy [address] [place] [address] PCP - General Internal Medicine 11/02/23 Additional Source Comments The information contained in this document represents components of the legal health record. It is not the complete legal health record.[facility]
--- OUTSIDE RECORDS SUMMARY | 2025-02-01 12:55 | XMS_ITS | Encounter Summary ---
Author Organization [facility] Address [address] [facility] [address] [place] [address] Care Team Providers Care Manager Investment Name Role Phone Glenn Herman MD Unavailable [phone] Yoandy Tillman MD Primary Care Provider [phone] Edward Handley kinesiology professor Unavailable Unavailable Jennie Michelle PharmD Unavailable Juan Hutchinson MD Unavailable [phone] Reason for Visit * Reason Comments Med Change Request Encounter Details Date Type Department Care Team (Late st Contact Info) Description 03/17/2024 Refill [facility] Cardiac Subspecialty 860 [facility] 6th [place] [address] Charlie Barry MD 800 [place] [address] 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) Social History [...] place to sleep or slept in a alf (including now)? No 11/26/2023 Sex and Gender [...] - 03/17/2024 4:02 PM EST Filled at [facility] documented in this encounter Plan of Treatment Upcoming Encounters Date Type Department Care Team (Late st Contact Info) Description 02/02/2025 1:30 PM EDT Office Visit [facility] Lung Nodule [address] [address] Alfred Mckeon MD 860 [place] [address] 02/02/2025 2:00 PM EDT Office Visit [facility] Lung Nodule [address] [address] Yoav Portillo Lung Nod Pul 02/22/2025 2:00 PM EST Office Visit [facility] Neurology 260 [place] [address] Percy Kapoor MD [facility] 800 [place] [address] 03/08/2025 1:00 PM EST Office Visit [facility] Dermatology 260 [place] [address] Nelida Ayala MD 800 [place] [address] 03/20/2025 12:00 PM EST Office Visit [facility] Cardiac Subspecialty 8[address] [facility] 6th [place] [address] Charlie Barry MD 800 [place] [address] 07/12/2025 10:30 AM EDT Appointment [facility] Pulmonary Function Lab 800 [facility] 5th Floor Room [address] [place] [phone] 07/12/2025 11:30 AM EDT Office Visit [facility] Pulmonary 260 [facility] 3rd [place] [address] Daysi Fink MD 800 [facility] [address] [place] [phone] documented as of this encounter Visit Diagnoses Diagnosis Heart replaced by transplant Cytomegalovirus infection, 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, unspecified cytomegaloviral infection type documented in this encounter Care Teams Manager Investment Relationship Specialty Start Date End Date Name, MD Yoandy [address] [place] [address] PCP - General Director Maternal Child 11/12/23 Glenn Herman MD [address] [place] [address] Referring Physician Cardiology 11/12/23 Edward Handley CPhT Seasonal Driver Pharmacy 12/31/23 Jennie Michelle, PharmD [address] [place] [address] Pharmacist Pharmacy 01/27/24 Juan Hutchinson MD [address] [place] [address] [place] [address] Attending Physician Cardiology 12/19/24 documented as of this encounter
--- OUTSIDE RECORDS SUMMARY | 2025-02-01 12:55 | XMS_ITS | Encounter Summary ---
Author Organization [facility] Address 800 [facility] 520 [place] [address] Care Team Providers Care Cross Enterprise Integrator Name Role Phone Glenn Herman MD Unavailable NameYoandy MD Primary Care Provider Edward Handley real estate administrator Unavailable Unavailable Jennie Michelle PharmD Unavailable [phone] Juan Hutchinson MD Unavailable [phone] Encounter Details Date Type Department Care Team (Late st Contact Info) Description 12/20/2024 Results Follow-Up [facility] Infectious Disease 260 [facility] 3rd [place] [address] Lena Cortes, PAINTER HELPER SIGN 800 [place] [phone] Social History Tobacco Use Types Packs/Day Years [...] Description 02/02/2025 1:30 PM EDT Office Visit [facility] Lung Nodule [address] [address] Alfred Mckeon MD [address] [place] [address] 02/02/2025 2:00 PM EDT Office Visit [facility] Lung Nodule [address] [address] Yoav Portillo Lung Nod Pul 02/22/2025 2:00 PM EST Office Visit [facility] Neurology [address] [place] [address] Percy Kapoor MD [address] [address] 03/08/2025 1:00 PM EST Office Visit [facility] Dermatology 260 [place] [address] Nelida Ayala MD [address] [place] [address] 03/20/2025 12:00 PM EST Office Visit [facility] Cardiac Subspecialty [address] [address] Charlie Barry MD 800 [place] [address] 07/12/2025 10:30 AM EDT Appointment [facility] Pulmonary Function Lab 800 [facility] [address] 5th Floor Room 511 [place] [address] 07/12/2025 11:30 AM EDT Office Visit [facility] Pulmonary [facility] 3rd [place] [address] Daysi Fink MD 800 [facility] [address] [place] [phone] documented as of this encounter Visit Diagnoses Not on filedocumented in this encounter Care Teams Cross Enterprise Integrator Relationship Specialty Start Date End Date Name, MD Yoandy [address] [place] [address] PCP - General Account Resolution Specialist 11/12/23 Glenn Herman MD [address] [place] [address] Referring Physician Cardiology 11/12/23 Edward Handley CPhT Licensed Massage Therapist Pharmacy 12/31/23 Jennie Michelle, PharmD [address] [place] [address] Pharmacist Pharmacy 01/27/24 Juan Hutchinson MD [address] [place] [address] [address] [place] [address] Attending Physician Cardiology 12/19/24 documented as of this encounter
--- OUTSIDE RECORDS SUMMARY | 2025-02-01 12:55 | XMS_ITS | Encounter Summary ---
Author Organization [facility] Address 800 [facility] [address] [place] [address] Care Team Providers Care Due Diligence Coordinator Name Role Phone Glenn Herman MD Unavailable Name, Yoandy LUGO Primary Care Provider [phone] Edward Handley tile molder hand Unavailable Unavailable Jennie Michelle PharmD Unavailable [phone] Juan Hutchinson MD Unavailable [phone] Encounter Details Date Type Department Care Team (Late st Contact Info) Description 12/25/2023 Lab Requisition [facility] HLA Lab 800 [place] [phone] Pedro Kline MD 800 [facility] [address] [place] [address] Cardiomyopathy, unspecified (Multi-HCC) Social History Tobacco Use [...] Description 02/02/2025 1:30 PM EDT Office Visit [facility] Lung Nodule [address] [address] Alfred Mckeon MD [address] [place] [address] 02/02/2025 2:00 PM EDT Office Visit [facility] Lung Nodule [address] [address] Yoav Lugo Lung Nod Pul 02/22/2025 2:00 PM EST Office Visit [facility] Neurology 260 [place] [address] Percy Kapoor MD [address] [address] 03/08/2025 1:00 PM EST Office Visit [facility] Dermatology 260 [place] [address] Nelida Ayala MD [address] [place] [address] 03/20/2025 12:00 PM EST Office Visit [facility] Cardiac Subspecialty [address] [phone] Charlie Barry MD 800 [place] [address] 07/12/2025 10:30 AM EDT Appointment [facility] Pulmonary Function Lab 800 [facility] [address] 5th Floor Room 511 [place] [phone] 07/12/2025 11:30 AM EDT Office Visit [facility] Pulmonary 260 [facility] [address] 3rd [place] [address] Daysi Fink MD 800 [facility] [address] [place] [phone] documented as of this encounter Procedures Procedure Name Priority Date/Time Associated Diagnosis Comments HLA CONSULTATION Routine 12/25/2023 8:41 AM EDT Cardiomyopathy, unspecified (Multi-HCC) documented in this encounter Results * HLA Consultation (12/25/2023 8:41 AM EDT) PDF Attached See PDF Document 12/26/2023 3:15 PM EDT [facility] HLA LAB Blood Venous blood specimen / Unknown 12/25/2023 8:41 AM EDT 12/25/2023 7:39 PM EDT us Pedro Kline MD LAB BLOOD ORDERABLES Maral l Result [facility] HLA LAB 800 [place] [address], documented in this encounter Visit Diagnoses Diagnosis Cardiomyopathy, unspecified Cytomegalovirus infection, 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, unspecified cytomegaloviral infection type documented in this encounter Care Teams Due Diligence Coordinator Relationship Specialty Start Date End Date Name, MD Yoandy 230 [place] [address] PCP - General Retail Team Member 11/12/23 Glenn Herman MD [address] [place] [address] Referring Physician Cardiology 11/12/23 Edward Handley, tile molder hand [facility] 12/31/23 Jennie Michelle, PharmD [address] [place] [address] Pharmacist Pharmacy 01/27/24 Juan Hutchinson MD [address] [place] [address] [place] [address] Attending Physician Cardiology 12/19/24 documented as of this encounter
--- OUTSIDE RECORDS SUMMARY | 2025-02-01 12:55 | XMS_ITS ---
Author Organization [facility] Address 800 [facility], Nicole ite [address] [place] [address] Care Team Providers Care Contract Programmer Name Role Phone Glenn Herman MD Unavailable [phone] NameYoandy MD Primary Care Provider [phone] Edward Handley CPhT Unavailable Unavailable Jennie Michelle PharmD Unavailable [phone] Juan Hutchinson MD Unavailable [phone] RxSp Transplant Status:Enrolled (Active) Start date:12/31/2023 [...] Name Relationship Phone Edward Handley CPhT(Responsible Staff) And Taxi Instructor Bus [employer]rolley Jennie Michelle PharmD Pharmacist [phone] Continued Care and Services Coordination
--- OUTSIDE RECORDS SUMMARY | 2025-02-01 12:55 | XMS_ITS | Data Portability ---
Author Organization [facility] [facility] Address 100 [facility] 100 [place] [address] Assessment Encounter Date Assessment Date Assessment LastModified by Organization Details LastModified Time 02/25/2024 02/25/2024 68-year-old male presents today for evaluation of stridor and tracheal stenosis. Symptoms seem to worsen about 3 weeks ago following dilation in November. Of note he had heart transplant about 2 months ago at [facility]. Flexible laryngoscopy did not reveal any [...] heart transplant. Thank you. 2023 Tarsha wagner [facility], [address] [facility], [place], [address], 09:56:34 Procedures None recorded. Surgeries None recorded. Imaging None recorded. Medication Orders None recorded. Patient TargetsNo targets recorded. Patient InstructionsNo instructions recorded. Reason for Referral Automatic Chief Referral for T gaby stenosis following tracheostomy Established patient of Dr Alegre. Needs follow up appt/repeat endoscopy. Patient has recent heart transplant. Thank you. Referring Physician: Sandip Regalado, Otolaryngology, Encounter Date: 02/25/2024 Problems Name Problem SNOMED Code Status Onset Date Resolution Date Notes Provider Name and Address Organization Details Recorded Time Tracheal stenosis following tracheostomy 34170192 Active 2023 SANDIP REGALADO MD [address] [facility],[place] [address], [place], [address], [facility] - [facility] 4 12:10:02 Sensorineural hearing loss of bilateral ears 446050737 Active 2024 BORA GRAY, [facility] [address] [facility],[place] [address], [place], [phone], [facility] 5 16:02:33 Problem Notes None recorded. Procedures Surgical History Date Name Laterality Status Provider Name and Address Organization Details Recorded Time 04/15/19 25 Comp Audio with Tymps - 18643 & 01788 completed BORA GRAY [address],[place] [address], [place], [address], [facility] 04/15/2024 16:02:37 02/25/20 24 Fiberoptic Laryngoscopy (Comprehensive) completed SANDIP REGALADO MD [address] [place] [address],[address], [address], [facility] 02/25/2024 12:11:38 Imaging Results None recorded. [...] Not Available Not Available Comfort EZ Pen [place] 32 gauge x 5/32 active Not Available [...] Updated DateTime 04/15/2024 172.72 cm 20.2 kg/m2 59679.79 g Manda Ly [place] [facility] 04/15/2024 16:28:34 Date Recorded Body height Body mass index (BMI) Body weight Provider Name and Address Organization Details Last Updated DateTime 02/25/2024 172.72 cm 26.8 kg/m2 02171.26 g Manda Ly [facility] 02/25/2024 11:47:14 Social History None recorded. Functional Status None recorded. Mental Status None recorded. Family History Nothing Reported. Medical History Condition Response Diabetes Y Heart Problems Y Hyperlipidemia Y Past Encounters Encounter ID Performer Location Encounter Start Date Encounter Closed Date Diagnosis/Indication Diagnosis SNOMED-CT Code Diagnosis ICD10 Code Diagnosis IMO Codes Diagnosis Note [id number] SANDIP REGALADO MD [facility] [address] [address] 02/25/2024 11:26:24 02/25/2024 12:26:39 Tracheal stenosis following tracheostomy 83522921 J95.03 [id number] SANDIP REGALADO MD [facility] [address] [address] 04/15/2024 15:37:29 04/15/2024 16:57:22 Sensorineural hearing loss of bilateral ears 005248901 H90.3 68 yo M with a history [...] and there was likely some irritation here. [id number] JACQUE LUGO [facility] [address] [address] 04/15/2024 15:59:22 04/18/2024 07:41:17 Sensorineural hearing loss of bilateral ears 329933863 H90.3 Right Ear:Normal hearing through 1.5K Hz [...] Name 06/15/2024 2 [place] [id number] Matthew L Avila [id number] Matthew Donny Avila Avila 06/15/2024 1 [place] [employer] SERVICES Matthew Avila Avila [id number] Matthew Donny Avila Avila 06/15/2024 2 [place] [facility] Matthew L Avila Avila [id number] Matthew Donny Avila Avila Notes Date Note Type Note Provider Name and Address Organization Details Recorded Time 02/25/2024 text/html ROS as noted in the HPI 68 yo M here for tracheal stenosis.Wheezing, had had 5 bronchoscopies. Scarring in the trachea following tracheostomy due to intensive care after heart attack, last year 2022 in [place], was on vacation. Coughing a lot. Had [...] corrected for lung volume SANDIP REGALADO MD [address] [place] [address],[address], [address], [facility] 02/26/2024 10:58:54 04/15/2024 text/html Starting feeling numb on the side of the ear right after his surgeryTTP over jaw Has seen Dr. Walton. SANDIP REGALADO MD [address] [place] [address],[address], [address], [facility] 04/18/2024 07:25:33
--- OUTSIDE RECORDS SUMMARY | 2025-02-01 12:55 | XMS_ITS | Clinical Summary ---
Author Organization [employer] Address [address] [facility] 7t [place] [address] Care Team Providers Care Ict Support Technicians Name Role Phone Name, Yoandy LUGO Primary Care Provider [phone] Allergies Active Allergy Reactions Criticality Noted Date [...] bedtime. 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 S/p multiple dilations in the past. Able to pass a 7.0 ETT, but no larger. Decreased functional mobility and endurance 11/06 Non-restorable tooth 11/19/2023 History of MS (myocardial infarction) 10/20/2023 Memory problem 10/20/2023 Shortness [...] 's report Asked patient to call his General Manager Food regarding his increased weight/swelling for further recommendations. Dysphagia 02/08/2023 Positive colorectal cancer screening using Colog uard test 02/04/2023 Overview (11/03/2023): Negative Colonoscopy 06/2023: urgical Pathology Exam - Order: [id number] Component 4 mo ago Case Report Surgicals Case: [id number] Authorizing Provider: Donny Encarnacion Collected: 2023 0843 MD Eugene Ordering Location: [facility] GI Lab Received: 2023 1011 Pathologist: [...] IHC, or [place] [address]. Resulting Agency [facility] Specimen Collected: 06/19/23 08:43 Performed by: [facility] Last Resulted: 06/23/23 17:27 Athscl [...] today in clinic Discussed with his primary senior software systems engineer Dr. Sanches and will work to get [...] Ventricular tachycardia, unspecified (CMS/HCC) 0 04/06/2022 Other termite helper (current) drug therapy 3 Type 2 [...] from dual-chamber to biventricular device at [facility] 03/2022. Follows at [facility] cardi Systolic dysfunction 03/13/2022 History of bradycardia 03/13/2022 Family history of prostate cancer 03/13/2022 Complete heart block (CMS/HCC) 04/06/2020 Overview (11/02/2023): Added automatically from request for surgery [id number] Last Assessment & Plan: History of biventricular pacemaker that was upgraded to AVIONICS ENGINEER defibrillator in September. Device interrogated today with [...] call cardiology office as well. Aspiration pneumonia ([facility]) 02/08/2023 02/05/2024 Hyperlactatemia 02/08/2023 11/03/2023 [...] starting statin -No need for ischemic evaluation oysterman (current) use of o ral hypoglycemic drugs [...] DEPARTMENT Provider, Generic External Data 11/24/2024 Telephone [facility] [address] [place] [address] [place] oct recalls from Last 3 Months [...] Description 02/20/2025 10:00 AM EST Office Visit [facility] [address] [place] [address] Name, MD Yoandy [address] [place] [address] Health Maintenance Due Date Last Done Comments CT Colonography 1955 Colonoscopy 1955 FIT 1955 Sigmoidoscopy 1955 Alcohol/Substance Use Screening 1967 RSV Patients and Patients Aged 60 years or older (1 - Risk 60-74 years 1-dose series) 2015 Hepatitis B Vaccines (2 of 3 - 19+ 3-dose series) 12/24/2023 11/26/2023 Zoster Vaccines (2 of 2) 01/21/2024 11/26/2023 FOBT 01/22/2024 01/21/2023 Depression Screening 10/19/2024 10/20/2023, 10/20/19 24 SDOH Screening 10/19/2024 10/20/2023 COVID-19 Vaccine (5 - Mixed Product risk season) 2024 02/05/2024, 02/25/2022, 02/25/2022, Additional history exists Influenza Vaccine (#1) 2024 12/16/2023, 2022 Lipid Panel 01/25/2025 01/26/2024, 06/05, 06/23/2022, Additional history exists Diabetes: Foot Exam 02/04/2025 02/05/2024, Diabetes: Urine [...] Associated Diagnosis Comments GLUCOSE, WHOLE BLOOD Routine 01/27/2025 3:15 PM EDT GROSS AND MICROSCOPIC LEVEL 3 Routine 01/19/2025 10:42 AM EDT GLUCOSE, WHOLE BLOOD Routine 12/30/2024 3:47 PM EDT POCT GLYCATED HEMOGLOBIN, TOTAL Routine 07/27/2024 10:59 AM EDT Type 2 diabetes mellitus with other circulatory complication, without long-term current use of insulin ([facility]) ALBUMIN, RANDOM URINE W/CREATININE Routine 04/14/2024 11:04 AM EST Type 2 diabetes mellitus with other circulatory complication, without long-term current use of insulin ([facility]) LIPID PANEL, STANDARD Routine 06/27/2022 9:53 AM EDT from Last 3 Months or Most Recently Relevant to Health Maintenance Results * Glucose, Whole Blood (01/27/2025 3:15 PM EDT) Only the most recent of2 resultswithin the time period is included. Glucose, Whole Blood 106 60 - 115 mg/dL [facility] Comment:METER #: [id number] 0Testing performed in the Endocrinology Department [address] , [address], [facility]. 01/27/2025 3:15 PM EDT 01/27/2025 3:23 PM EDT us Generic External Data Provider LAB BLOOD ORDERAB LES Final Result Performing Organization Address City/State/[place] Co de Phone Number [facility] [address] [place] [phone] * Gross and Microscopic Level 3 (01/19/2025 10:42 AM EDT) 01/19/2025 10:4 2 AM EDT 01/20/2025 9:10 AM EDT Narrative [facility] - 01/23/2025 2:18 PM EDT ----- ------- Name: Matthew Toro Age/Sex: 69/M : 1955 Unit#: [id number] Attend Dr: Tamiko Ceballos DPM Re01/19/25 Status: DEP [facility] Disch: ----- ------- SPEC : [id number] RECD: 01/20/25 STATUS: DON PHAN NUM: [id number] TIM: 01/19/[address] [facility] [address]: Tamiko Ceballos DPM ENTERED: 01/20/25 SP [...] developed and their performance characteristics determined by [facility]. They have not been cleared or approved by the U.S. Food and Drug Administration (FDA). However, the FDA has determined that such clearance or approval is not necessary. This laboratory is certified under the Clinical Laboratory Improvement Amendments of 1988 (CLIA) as qualified to perform high complexity clinical laboratory testing. Copies To: Yoandy Tillman MD [address] [address] CONTINUED ON NEXT PAGE ----- ------- Name: Matthew Toro Age/Sex: 69/M : 1955 Unit#: [id number] Attend Dr: Tamiko Ceballos DPM Re01/19/25 Status: DEP [facility] Disch: ----- ------- SPEC : [id number] RECD: 01/20/25 STATUS: DON PHAN NUM: [id number] TIM: 01/19/[address] [facility] [address]: Tamiko Ceballos DPM ENTERED: 01/20/25 SP TYPE: Surgical OTHR DR: Yoandy Tillman MD ORDERED: Gross Micro L3 Copies To: (Continued) Tamiko Ceballos DPM [facility] Podiatry-[address] [address] [email or web address] ----- ------- Signed (signature on file) Shruti Jean 01/23/25 1418 ----- ------- END OF REPORT Generic External Data Provider LAB CYTOLOGY ORDE RABLES Final Result Performing Organization Address [facility]/[place] Co de Phone Number [facility] [address] [place] [phone] * POCT HGB A1C (07/27/2024 10:59 AM EDT) Hemoglobin A1C 5.7 4.0 - 6.0 % QC Media Lot # [id number] Lot# Expiration Date Blood 07/27/2024 10:5 9 AM EDT Yoandy Tillman MD POINT OF CARE TEST ENTER/EDIT OR DERABLES Final Result * Albumin, Random Urine W/Creatinine (04/14/2024 11:04 AM EST) Creatinine, Urine 109.08 mg/dL [facility] Microalbumin Urine 6.0 mg/L [facility] Microalbum Creatinine Ratio Ur 5.5 <30 ug/mg cr [facility] Comment:Albumin/Creatinine R atio Reference Ranges: Normal: < 30 ug/mg creatinine Microalbuminuria: 30 - 300 ug/mg creatinineClinical Albuminuria: > 300 ug/mg creatinine Urine (Urine, Random) 04/14/2024 11:04 AM EST 04/14/2024 1:04 PM EST Yoandy Tillman MD LAB URINE ORDERABLES Final Resul t Performing Organization Address [facility]/[place] Co de Phone Number [facility] [address] [place] [phone] * Lipid Panel, Standard (06/27/2022 9:53 AM EDT) Triglycerides 84 mg/dL [facility] Comment:Desirable Triglyceri de: less than 150 mg/dLBorderline High Triglyceride 150-199 mg/dLHigh Triglyceride: 200-499 mg/dLVery High Triglyceride: greater than or equal to 5OO mg/dL Cholesterol 154 mg/dL [facility] Comment:Desirable Cholestero l: less than 200 mg/dLBorderline High Cholesterol: 200-239 mg/dLHigh Cholesterol: greater than 239 mg/dL LDL Cholesterol Calculated 104 mg/dl [facility] Comment:Desirable LDL: less than 100 mg/dLNear Optimal/Above Optimal LDL: 110- 129 mg/dLBorderline High LDL: 130-159 mg/dLHigh LDL: 160-189 mg/dLVery High LDL: greater than or equal to 190 mg/dL HDL Cholesterol 34 mg/dL [facility] Comment:Desirable HDL: great er than 40 mg/dL Note: This HDL assay may give artificially low results in patients with liver disease. 06/27/2022 9:53 AM EDT 06/27/2022 9:53 AM EDT [facility] External Provider LAB BLO OD ORDERABLES Final Result [facility] [address] [place] [phone] from Last 3 Months or Most Recently Relevant to Health Maintenance Insurance MEDICARE [facility] STANDARD [facility] [employer] MEDICARE SUPPLEMENT Care Teams Ict Support Technicians Relationship Specialty Start Date End Date Name, MD Yoandy [address] [place] [address] PCP - General Internal Medicine 10/19/23 [facility] 01/19/24
--- OUTSIDE RECORDS SUMMARY | 2025-02-01 12:55 | XMS_ITS | Encounter Summary ---
Author Organization [facility] Address [address] [facility] [address] [place] [address] Care Team Providers Care Mallet And Die Cutter Name Role Phone Glenn Herman MD Unavailable [phone] Name, Yoandy LUGO Primary Care Provider [phone] Edward Handlye manager immunology Unavailable Unavailable Jennie Michelle PharmD Unavailable [phone] Juan Hutchinson MD Unavailable [phone] Encounter Details Date Type Department Care Team (Late st Contact Info) Description 12/29/2023 Lab Requisition [facility] HLA Lab [address] [place] [phone] Pedro Kline MD 800 [facility] [address] [place] [address] Cardiomyopathy, unspecified (Multi-HCC) Social History Tobacco Use [...] Description 02/02/2025 1:30 PM EDT Office Visit [facility] Lung Nodule [address] [phone] Alfred Mckeon MD [address] [place] [address] 02/02/2025 2:00 PM EDT Office Visit [facility] Lung Nodule [address] [phone] Yoav Lugo Lung Nod Pul 02/22/2025 2:00 PM EST Office Visit [facility] Neurology [address] [place] [address] Percy Kapoor MD [address] [address] 03/08/2025 1:00 PM EST Office Visit [facility] Dermatology [address] [place] [address] Nelida Ayala MD [address] [place] [address] 03/20/2025 12:00 PM EST Office Visit [facility] Cardiac Subspecialty [address] [phone] Charlie Barry MD [address] [place] [address] 07/12/2025 10:30 AM EDT Appointment [facility] Pulmonary Function Lab [address] [facility] [address] 5th Floor Room [address] [place] [phone] 07/12/2025 11:30 AM EDT Office Visit [facility] Pulmonary [address] [facility] [address] 3rd [place] [phone] Daysi Fink MD [address] [facility] [address] [place] [phone] documented as of this encounter Procedures Procedure Name Priority Date/Time Associated Diagnosis Comments HLA CONSULTATION Routine 12/26/2023 11:5 6 PM EDT Cardiomyopathy, unspecified (Multi-HCC) documented in this encounter Results * HLA Consultation (12/26/2023 11:56 PM EDT) PDF Attached See PDF Document 01/02/2024 12:57 PM EDT [facility] Blood Venous blood specimen / Unknown 12/26/2023 11:56 PM EDT 12/29/2023 10:28 PM EDT us Pedro Kline MD LAB BLOOD ORDERABLES Maral l Result [facility] HLA LAB [address] [place] [address], documented in this encounter Visit Diagnoses Diagnosis Cardiomyopathy, unspecified Cytomegalovirus infection, 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, unspecified cytomegaloviral infection type documented in this encounter Care Teams Mallet And Die Cutter Relationship Specialty Start Date End Date Name, MD Yoandy [address] [place] [address] PCP - General Sports Instructor 11/12/23 Glenn Herman MD [address] [place] [address] Referring Physician Cardiology 11/12/23 Edward Handley, manager immunology Physical Therapist Clinic Director Pharmacy 12/31/23 Jennie Michelle, PharmD [address] [place] [phone] Pharmacist Pharmacy 01/27/24 Juan Hutchinson MD [address] [place] [address] [place] [phone] Attending Physician Cardiology 12/19/24 documented as of this encounter
--- OUTSIDE RECORDS SUMMARY | 2025-02-01 12:55 | XMS_ITS | Encounter Summary ---
Author Organization [facility] Address 800 [facility] [address] [place] [address] Care Team Providers Care Bridge Club Manager Name Role Phone Glenn Herman MD Unavailable [phone] Name, Yoandy LUGO Primary Care Provider Edward Handley insect control inspector Unavailable Unavailable Jennie Michelle PharmD Unavailable [phone] Juan Hutchinson MD Unavailable [phone] Encounter Details Date Type Department Care Team (Late st Contact Info) Description 01/02/2025 Orders Only [facility] Infectious Disease [address] [facility] 3rd [place] [address] Lena Cortes, REINFORCED STEEL PLACING SUPERVISOR [address] [place] [phone] Social History Tobacco Use Types Packs/Day Years [...] Description 02/02/2025 1:30 PM EDT Office Visit [facility] Lung Nodule [address] [phone] Alfred Mckeon MD [address] [place] [address] 02/02/2025 2:00 PM EDT Office Visit [facility] Lung Nodule [address] [phone] Yoav Lugo Lung Nod Pul 02/22/2025 2:00 PM EST Office Visit [facility] Neurology [address] [place] [address] Percy Kapoor MD [address] [address] 03/08/2025 1:00 PM EST Office Visit [facility] Dermatology [address] [place] [address] Nelida Ayala MD [address] [place] [address] 03/20/2025 12:00 PM EST Office Visit [facility] Cardiac Subspecialty [address] [phone] Charlie Barry MD [address] [place] [address] 07/12/2025 10:30 AM EDT Appointment [facility] Pulmonary Function Lab 800 [facility] [address] [facility] 5th Floor Room [address] [place] [phone] 07/12/2025 11:30 AM EDT Office Visit [facility] Pulmonary [address] [facility] [address] [place] [phone] Daysi Fink MD [address] [facility] [address] [place] [phone] documented as of this encounter Visit Diagnoses Not on filedocumented in this encounter Care Teams Bridge Club Manager Relationship Specialty Start Date End Date Name, MD Yoandy [address] [place] [address] PCP - General Line Erector 11/12/23 Glenn Herman MD [address] [place] [address] Referring Physician Cardiology 11/12/23 Edward Handley, Juan Interpretative Dancer Pharmacy 12/31/23 Jennie Michelle, PharmD [address] [place] [phone] Pharmacist Pharmacy 01/27/24 Juan [place]inson MD [address] [place] [address] [address] [place] [address] Attending Physician Cardiology 12/19/24 documented as of this encounter
--- OUTSIDE RECORDS SUMMARY | 2025-02-01 12:55 | XMS_ITS | Encounter Summary ---
Author Organization [employer] Address [address] [facility] [address] 7t [place] [address] Care Team Providers Care Salon Professional Name Role Phone Name, Yoandy LUGO Primary Care Provider [phone] Name, Yoandy LUGO Primary Care Provider [phone] Encounter Details Date Type Department Care Team (Late st Contact Info) Description 03/21/2022 Orders Only [facility] [address] [place] [address] Coby Flores RN Social History Tobacco Use [...] Description 02/20/2025 10:00 AM EST Office Visit [facility] [address] [place] [address] Name, MD Yoandy [address] [place] [address] documented as of this encounter Procedures Procedure Name Priority Date/Time Associated Diagnosis Comments B TYPE NATRIURETIC PEPTIDE (BNP) Routine 06/27/2022 9:53 AM EDT HEPATIC FUNCTION PANEL Routine 06/27/2022 9:53 AM EDT LIPID PANEL, STANDARD Routine 06/27/2022 9:53 AM EDT BASIC METABOLIC PANEL Routine 06/27/2022 9:53 AM EDT documented in this encounter Results * Lipid Panel, Standard (06/27/2022 9:53 AM EDT) Triglycerides 84 mg/dL [facility] Comment:Desirable Triglyceri de: less than 150 mg/dLBorderline High Triglyceride 150-199 mg/dLHigh Triglyceride: 200-499 mg/dLVery High Triglyceride: greater than or equal to 5OO mg/dL Cholesterol 154 mg/dL [facility] Comment:Desirable Cholestero l: less than 200 mg/dLBorderline High Cholesterol: 200-239 mg/dLHigh Cholesterol: greater than 239 mg/dL LDL Cholesterol Calculated 104 mg/dl [facility] Comment:Desirable LDL: less than [...] 9:53 AM EDT 06/27/2022 9:53 AM EDT [facility] External Provider LAB BLO OD ORDERABLES Final Result [facility] [address] [place] [phone] * (ABNORMAL) Basic Metabolic Panel (06/27/2022 9:53 AM EDT) Sodium 143 135 - 145 mmol/L [facility] Potassium 4.6 3.3 - 5.1 mmol/L [facility] Chloride 108 96 - 108 mmol/L [facility] Carbon Dioxide 26 22 - 29 mmol/L [facility] Anion Gap 14 12 - 20 [facility] Urea Nitrogen (BUN) 13 9 - 16 mg/dL [facility] Creatinine, Serum 1.02 0.5 - 1.4 mg/dL [facility] Estimated Glomerular Filt Rate >60 [facility] Comment:NOTE: For -Am erican individuals, multiply the result by 1.210.Chronic Kidney Disease: Estimated GFR < 60 mL/min/1.17h1Svwgtw Kidney Disease: Estimated GFR < 15 mL/min/1.73m2 Glucose 141(H) 60 - 115 mg/dL [facility] Calcium 9.4 8.4 - 10.2 mg/dL [facility] 06/27/2022 9:53 AM EDT 06/27/2022 9:53 AM EDT [facility] External Provider LAB BLO OD ORDERABLES Final Result Performing Organization Address [facility] [[email or web address]] Co de Phone Number [facility] [address] [place] [phone] * Hepatic Function Panel (06/27/2022 9:53 AM EDT) Bilirubin, Total 1.0 0.0 - 1.0 mg/dL [facility] Bilirubin, Direct 0.3 0.0 - 0.5 mg/dL [facility] Aspartate Amino Transferase 19 5 - 37 U/L [facility] Alanine Aminotransferase 24 0 - 40 U/L [facility] Total Protein 6.7 6.5 - 8.0 g/dL [facility] Albumin Level 4.2 3.5 - 5.0 g/dL [facility] Alkaline Phosphatase 61 39 - 117 U/L [facility] 06/27/2022 9:53 AM EDT 06/27/2022 9:53 AM EDT [facility] External Provider LAB BLO OD ORDERABLES Final Result Performing Organization Address [facility] de Phone Number [facility] [address] [place] [phone] * (ABNORMAL) B Type Natriuretic Peptide (BNP) (06/27/2022 9:53 AM EDT) B Type Natriuretic Peptide 332(H) <100 pg/mL [facility] Comment:For those patients w ho are being treated with Natrecor(nesiritide, recombinant BNP), BNP testing should beperformed at least two hours post treatment in order toensure that only endogenous levels of BNP are detected. 06/27/2022 9:53 AM EDT 06/27/2022 9:53 AM EDT us [facility] External Provider LAB BLO OD ORDERABLES Final Result [facility] [address] [place] [phone] [phone] documented in this encounter Visit Diagnoses Not on filedocumented in this encounter Care Teams Salon Professional Relationship Specialty Start Date End Date NameYoandy MD [address] [place] [address] PCP - General Family Medicine 01/18/21 06/04/23 Name, MD Yoandy [address] [place] [address] PCP - General Internal Medicine 10/19/23 [facility] 01/19/24 documented as of this encounter
--- OUTSIDE RECORDS SUMMARY | 2025-02-01 12:55 | XMS_ITS ---
Author Organization [facility] Address [address] [facility] [address] [place] [address] Care Team Providers Care Reverberatory Furnace Operator Name Role Phone Glenn Herman MD Unavailable [phone] NameYoandy MD Primary Care Provider [phone] Edward Handley auto air conditioning installer Unavailable Unavailable Jennie Michelle PharmD Unavailable [phone] Juan [place] MD Unavailable [phone] Transplant Episode Heart Recipient [facility] ([place], [place]) - MAN Organ Received: Heart Transplanted on 12/28/2023 Marked as Active Follow-up on 12/28/2023 Heart CoordinatorZackery Paulino RN Phone: N/A Fax: N/A Email: N/A [place] Organ Diagnosis Organ Primary Contributory Heart Dilated [...] Role Phone Fax Email Zackery Paulino RN Pet Food Deboner N/A N/A N/A Glenn Herman MD Referring Physician [phone] N/A Izaiah Watt MD Treating Plant Supervisor [phone] N/A Events Post-Transplant Pre-Transplant Admitted: 11/23/2023 Referred: 11/09/2023 Transplanted: 12/28/2023 Evaluation began: 4 Discharged: 01/14/2024 Committee: 12/21/2023 Center waitlisted: 4
--- OUTSIDE RECORDS SUMMARY | 2025-02-01 12:55 | XMS_ITS | Clinical Summary ---
Author Organization [facility] Address [address] [facility] [address] [place] [address] Care Team Providers Care Job Counselor Name Role Phone Glenn Herman MD Unavailable [phone] NameYoandy MD Primary Care Provider [phone] Edward Handley medical technologist blood bank Unavailable Unavailable Jennie Michelle PharmD Unavailable [phone] Bridger Hernandez MD Unavailable [phone] Allergies Active Allergy Reactions Criticality Noted [...] not crush, chew, or split. Ac tive calcium carbonate 500 mg calcium (1,250 mg) [...] 01/13/20 25 3:21 PM EDT 025 2024 dextromethorp nelson-guaifenes in (Robitussin DM) 10-100 mg/5 [...] 's report Asked patient to call his Twister Frame Tender regarding his increased weight/swelling for further recommendations. Last Assessment & Plan: reports he's up a few pounds from his baseline weight, worsening leg swelling over the last few days. Compliant with Torsemide - taking full dose per 's report Asked patient to call his Twister Frame Tender regarding his increased weight/swelling for further [...] Type Department Care Team Description 01/24/2025 Telephone [facility] Infectious Disease [address] [phone] Lena Cortes NP 01/18/2025 Telephone [facility] Infectious Disease [address] [phone] Lena Cortes NP 01/10/2025 Refill [facility] Cardiology [address] [place] [address] Pedro Kline MD Heart transplant recipient 01/03/2025 10:30 AM EDT - 01/03/2025 12:30 PM EDT Surgery [facility] Cardiac General Dentist [address] [place] [address] Luisa Yang MD Coronary angiography [22542 (CPT )] 01/03/2025 10:17 AM EDT - 01/03/2025 4:56 PM EDT Hospital Encounter [facility] Cardiac General Dentist [address] [place] [address] Luisa Yang MD Other cytomegaloviral diseases (Multi-HCC) (Primary Dx); Heart transplant recipient (Multi-HCC) Discharge Disposition: Home or self care 01/03/2025 Travel 01/02/2025 Orders Only [facility] Infectious Disease [address] [phone] Lena Cortes NP 12/28/2024 11:30 AM EDT Office Visit [facility] Pulmonary [address] [phone] Daysi Fink MD Chronic cough (Primary Dx); Pulmonary sarcoidosis (Multi-HCC); 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); Cardiac sarcoidosis (HHS-HCC); Dyspnea and respiratory abnormality 12/28/2024 10:16 AM EDT - 12/28/2024 11:59 PM EDT Hospital Encounter [facility] Imaging [address] [place] [address] Cytomegalovirus infection, unspecified cytomegaloviral infection type (Multi-HCC); Tracheal stenosis; Pulmonary sarcoidosis (Multi-HCC) Discharge Disposition: Home or self care 12/28/2024 Travel 12/26/2024 Orders Only [facility] Infectious Disease [address] [address] Lena Cortes NP Cytomegalovirus (CMV) viremia (Multi-HCC) 12/20/2024 Results Follow-Up [facility] Infectious Disease [address] [address] Lena Cortes QUARRY MANAGER 12/19/2024 11:40 AM EDT - 12/19/2024 11:59 PM EDT Hospital Encounter [facility] Radiology [address] [place] [address] Other cytomegaloviral diseases (Multi-HCC); Heart transplant recipient (Multi-HCC) Discharge Disposition: Home or self care 12/19/2024 11:00 AM EDT Office Visit [facility] Cardiac Subspecialty [address] [phone] Bridger Hernandez MD Type 2 diabetes mellitus with other specified complication, unspecified whether senior living insulin use (Multi-HCC) (Primary Dx); Other cytomegaloviral diseases (Multi-HCC); Heart transplant recipient (Multi-HCC); Mixed hyperlipidemia ; Prostate cancer screening; Sarcoidosis 12/19/2024 7:36 AM EDT - 12/19/2024 11:39 AM EDT Hospital Encounter [facility] Cardiac Echo [address] [place] [phone] Other cytomegaloviral diseases (Multi-HCC); Heart transplant recipient (Multi-HCC); Heart transplant rejection (Multi-HCC) Discharge Disposition: Home or self care 12/19/2024 Telephone [facility] Cardiac Subspecialty [address] [phone] Kailyn Hess Appointment; Follow-up 12/19/2024 Travel 12/14/2024 Orders Only [facility] Infectious Disease [address] [phone] Lena Cortes NP Heart transplant recipient (Multi-HCC) (Primary Dx); Other cytomegaloviral diseases (Multi-HCC) 12/13/2024 Refill [facility] Infectious Disease [address] [phone] Lena Crotes NP Other cytomegaloviral diseases (Multi-HCC) 12/13/2024 Refill [facility] Cardiac Subspecialty [address] [phone] Jose Angel Nunez NP Heart transplant recipient (Multi-HCC) 12/13/2024 Refill [facility] Cardiology [address] [place] [phone] Izaiah Martinez MD Heart transplant recipient (Multi-HCC) 12/13/2024 Refill [facility] Cardiology [address] [place] [phone] Pedro Kline MD Heart transplant recipient (Multi-HCC) 12/13/2024 Refill [facility] Cardiac Subspecialty [address] [phone] Sharon Savage NP Heart transplant recipient (Multi-HCC) 12/02/2024 Telephone [facility] Patient Access [address] [place] [address] Do, Barrera-Chi 11/21/2024 Telephone [facility] Cardiac Subspecialty [address] [phone] Kailyn Hess Appointment 11/16/2024 Telephone [facility] Cardiac Subspecialty [address] [phone] aKilyn Hess Appointment 11/15/2024 Refill [facility] Cardiology [address] [place] [address] Pedro Kline MD Heart transplant recipient (Multi-HCC) 11/08/2024 Results Follow-Up [facility] Infectious Disease [address] [phone] Lena Cortes NP 11/07/2024 1:00 PM EDT Office Visit [facility] Infectious Disease [address] [phone] Chi Barton MD Other cytomegaloviral diseases (Multi-HCC) (Primary Dx); Immunosuppressed status (Multi-HCC); Heart transplant recipient (Multi-HCC); Preventative health care; Other fatigue; Upper airway cough syndrome 11/07/2024 12:15 PM EDT Office Visit [facility] Cardiac Subspecialty [address] [phone] Jose Angel Nunez NP Heart transplant recipient (Multi-HCC) (Primary Dx); Essential hypertension, benign ; Mixed hyperlipidemia ; Type 2 diabetes mellitus with other specified complication, unspecified whether senior living insulin use (Multi-HCC); Subglottic stenosis; Sarcoidosis; Pulmonary nodules; Other cytomegaloviral diseases (Multi-HCC); Observed seizure-like activity (Multi-HCC) 11/07/2024 Travel from Last 3 Months Immunizations Immunization Administration Dates Next Due COVID-19 Pfizer Monovalent 01/10/2021,12/14/2020 Comirnaty COVID-19 Vaccine 12 years + 02/05/2024 Hep B, adult 11/26/2023 Influenza, High-dose Seasona l, Quadrivalent, Preservative Free 01/12/2023 Influenza, trivalent, adjuvanted 65+ 12/16/2023 TripIt COVID-19 Vaccine Biva lent Booster 12+ 02/25/2022 Pneumococcal Conjugate PCV 13 05/30/2021 Pneumococcal Conjugate Pcv 20 01/12/2023 RSV, bivalent, protein subun it RSVpreF, diluent reconstituted, 0.5 mL, PF 11/25/2023 Spikevax COVID-19 Vaccine Formula 12+ (Deferred: Not available from supervisor files - Per pharmacy vaccine is out of [...] 02/02/2025 1:30 PM EDT Office Visit [facility] Lung Nodule [address] [phone] Alfred Mckeon MD [address] [place] [address] 02/02/2025 2:00 PM EDT Office Visit [facility] Lung Nodule [address] [phone] Yoav Portillo Lung Nod Pul 02/22/2025 2:00 PM EST Office Visit [facility] Neurology [address] [place] [phone] Percy Kapoor MD [facility] [address] [place] [address] 03/08/2025 1:00 PM EST Office Visit [facility] Dermatology [address] [place] [address] Nelida Ayala MD [address] [place] [address] 03/20/2025 12:00 PM EST Office Visit [facility] Cardiac Subspecialty [address] [place] [phone] Charlie Barry MD [address] [place] [address] 07/12/2025 10:30 AM EDT Appointment [facility] Pulmonary Function Lab [address] [facility] 5th Floor Room [address] [place] [phone] 07/12/2025 11:30 AM EDT Office Visit [facility] Pulmonary [address] [facility] [address] [place] [phone] Daysi Fink MD [address] [facility] [address] [place] [phone] Health Maintenance Due Date Last Done Comments [...] this topic Medical Devices Implanted Type Area Flat Clothier Device Identifier Shelf Expiration Date Model / Serial / Lot First Press Operator-D [employer]ates Icd-10/02/2022 Implanted:09/05 (Quantity not on file) STEEL SAMPLER-D ICD Chest [employer] Graft Hemashield Str 10x30 - [id number] Implanted:Qty: 1 on 12/22/2023 at [facility] Graft Right: Axilla GETINGE/MAQUET C[employer]IOVASCULAR 09/03/2028 [id number] / [id number] / Impella- 024 Implanted:12/05 (Quantity not on [...] mellitus with other specified complication, unspecified whether senior living insulin use (Multi-HCC) PSA TOTAL, SCREEN STAT [...] mellitus with other specified complication, unspecified whether watermelon inspector insulin use (Multi-HCC) DOBUTAMINE STRESS ECHO (49769) Routine 12/19/2024 9:38 AM EDT Heart transplant [...] EDT) 01/03/2025 12:1 1 PM EDT Narrative [facility] - 01/03/2025 5:21 PM EDT [facility] Adult Catheterization Lab [address] [place] [address] Right and Left Diagnostic Cardiac Catheterization and [...] Procedure Note Luisa Yang MD - 01/03/2025 [facility] Adult Catheterization Lab [address] [place] [address] Right and Left Diagnostic Cardiac Catheterization and [...] + + + + PA pressure s/d 23/09 (11) (m) + + + + PA wedge a/v (m) 09/09 (2) + + + + Arterial pressure 103/56 (75) s/d (m) + + + + Aortic pressure -/- () s/d (m) + + + + PVR [...] Nunez NP CV CARDIAC CATH PROCEDURES Maral garcia Result [facility] HEMO MERGE HEMO * Tissue Pathology (01/03/2025 11:20 AM EDT) Case Report Surgical Pathology Case: [id number] Authorizing Provider: Jose Angel Nunez NP Collected: 01/03/2025 1120 Ordering Location: [facility] Received: 01/03/2025 1320 Cardiac General Dentist Pathologist: Ramos Kay MD Specimen: Heart, R ventricle Bx post Tx 01/04/2025 4:36 PM EDT [facility] ANATOMIC PATHOLOGY LAB Final Diagnosis A. [...] show appropriate reactivity. 01/04/2025 4:36 PM EDT [facility] ANATOMIC PATHOLOGY LAB at 1636 EDT [...] toto in A1. Grossed by DANY Wong PA([facility]) on 01/03/25 at 1:26 PM. 01/04/2025 4:36 PM EDT [facility] ANATOMIC PATHOLOGY LAB Disclaimer The interpretation [...] show appropriate reactivity. 01/04/2025 4:36 PM EDT [facility] ANATOMIC PATHOLOGY LAB Tissue Heart structure / Unknown 01/03/2025 11:20 AM EDT 01/03/2025 1:20 PM EDT Jose Angel Nunez NP LAB PATHOLOGY ORDERABLES Final Result [facility] ANATOMIC PATHOLOGY LAB [address] [place] [address], * (ABNORMAL) CBC w/ Differential (01/03/2025 11:10 AM EDT) WBC 2.7(L) 4.0 - 11.0 K/uL 01/03/2025 11:41 AM EDT [facility] RBC 3.82(L) 4.20 - 5.90 M/uL 01/03/2025 11:41 AM EDT [facility] Hemoglobin 11.3(L) 13.0 - 17.5 g/dL 01/03/2025 11:41 AM EDT [facility] Hematocrit 33.5(L) 37.0 - 53.0 % 01/03/2025 11:41 AM EDT [facility] MCV 87.7 80.0 - 100.0 fL 01/03/2025 11:41 AM EDT [facility] MCH 29.6 26.0 - 34.0 pg 01/03/2025 11:41 AM EDT [facility] MCHC 33.7 31.0 - 37.0 g/dL 01/03/2025 11:41 AM EDT [facility] RDW-CV 12.8 11.5 - 14.5 % 01/03/2025 11:41 AM EDT [facility] RDW-SD 40.4 35.0 - 51.0 fL 01/03/2025 11:41 AM EDT [facility] Platelets 122(L) 150 - 400 K/uL 01/03/2025 11:41 AM EDT [facility] MPV 9.7 9.1 - 12.4 fL 01/03/2025 11:41 AM EDT [facility] Neutrophil % 65.5 % 01/03/2025 11:41 AM EDT [facility] Lymphocyte % 20.0 % 01/03/2025 11:41 AM EDT [facility] Monocytes % 5.6 % 01/03/2025 11:41 AM EDT [facility] Eosinophils % 5.2 % 01/03/2025 11:41 AM EDT [facility] Basophils % 0.4 % 01/03/2025 11:41 AM EDT [facility] Immature Granulocytes % 3.3 % 01/03/2025 11:41 AM EDT [facility] NRBC % 0.0 0.0 - 0.0 % 01/03/2025 11:41 AM EDT [facility] Neutrophils Absolute 1.77 1.50 - 7.95 K/uL 01/03/2025 11:41 AM EDT [facility] Lymphocytes Absolute 0.54(L) 0.70 - 4.00 K/uL 01/03/2025 11:41 AM EDT [facility] Monocytes Absolute 0.15(L) 0.38 - 0.83 K/uL 01/03/2025 11:41 AM EDT [facility] Eosinophils Absolute 0.14 0.00 - 0.50 K/uL 01/03/2025 11:41 AM EDT [facility] Basophils Absolute 0.01 0.00 - 0.22 K/uL 01/03/2025 11:41 AM EDT [facility] Immature Granulocytes Absolute 0.09 0.00 - 0.10 K/uL 01/03/2025 11:41 AM EDT [facility] NRBC Absolute 0.00 0.00 - 2.00 K/uL 01/03/2025 11:41 AM EDT [facility] Blood Venous blood specimen / Unknown Venipuncture / Unknown 01/03/2025 11:10 AM EDT 01/03/2025 11:34 AM EDT us Zeina Maradiaga MD LAB BLOOD ORDERABLES Final Result [facility] [address] [place] [address], * Tacrolimus level (01/03/2025 11:10 AM EDT) Only the most recent of3 resultswithin the time period is included. [facility] Tacrolimus, LC-MS/MS 7.5 3.0 - 20.0 ng/mL 01/03/2025 3:15 PM EDT [facility] Comment:Performed by LC-MS/M S. Reference intervals are based on trough collection. Optimal therapeutic ranges depend on time post-transplant, dosing regimen, organ type, and concomitant immunosuppression therapy. Results should be interpreted in conjunction with physical signs/symptoms of rejection/toxicity. This test was developed and its performance characteristics determined by [facility]. It has not been cleared or approved by the FDA. The laboratory is regulated under CLIA as qualified to perform high-complexity testing. This test is used for clinical purposes. It should not be regarded as investigational or for research. Time of last dose 3:15 PM EDT [facility] Date of last dose 3:15 PM EDT [facility] Blood Venous blood specimen / Unknown Venipuncture / Unknown 01/03/2025 11:10 AM EDT 01/03/2025 11:34 AM EDT us Zeina Maradiaga MD LAB BLOOD ORDERABLES Final Result [facility] [address] [place] [address], * (ABNORMAL) CMV Quant DNA, RT-PCR, BLOOD (01/03/2025 11:10 AM EDT) Only the most recent of4 resultswithin the time period is included. [facility] CMV DNA Viral Load 130(H) Not Detected IU/mL [facility] 2 01/03/2025 4:19 PM EDT [facility] Comment:DETECTED CMV DNA Viral Load, log 2.11(H) Not Detected log IU/mL 01/03/2025 4:19 PM EDT [facility] CMV DNA Viral Load, Interp Detected( A) Not Detected [facility] 01/03/2025 4:19 PM EDT [facility] Blood Venous blood specimen / Unknown Venipuncture / Unknown 01/03/2025 11:10 AM EDT 01/03/2025 11:34 AM EDT Narrative [facility] - 01/03/2025 4:19 PM EDT This test was performed using the Coates Alinity m CMV DNA assay, performed on the Osurv ALinity m instrument Lena Cortes NP LAB BLOOD ORDERABLES Fin al Result Performing Organization Address [facility]/ZIP Co de Phone Number [facility] [address] [place] [address], [place] * Protime/INR (01/03/2025 11:10 AM EDT) Protime 12.0 9.7 - 14.0 seconds 01/03/2025 11:55 AM EDT [facility] INR 1.04 See Comment 01/03/2025 11:55 AM EDT [facility] Comment: NORMAL PATIENTS NOT ON ANTICOAGULANTS: INR: 0.9-1.3 RECOMMENDED INR WITH WARFARIN/COUMADIN THERAPY: INR: 2.00-3.00 Deep vein thrombosis Atrial Fibrillation Tissue Prosthetic Valve Stroke Prevention INR:2.50-3.50 Mechanical Prosthetic Valve and Recurrent Systemic Embolism Blood Venous blood specimen / Unknown Venipuncture / Unknown 01/03/2025 11:10 AM EDT 01/03/2025 11:34 AM EDT Zeina Maradiaga MD LAB BLOOD ORDERABLES Final Result Performing Organization Address [facility] Co de Phone Number [facility] [address] [place] [address], [place] * Magnesium (01/03/2025 11:10 AM EDT) Only the most recent of3 resultswithin the time period is included. Magnesium 1.7 1.6 - 2.6 mg/dL 01/03/2025 12:13 PM EDT [facility] Blood Venous blood specimen / Unknown Venipuncture / Unknown 01/03/2025 11:10 AM EDT 01/03/2025 11:33 AM EDT Zeina Maradiaga MD LAB BLOOD ORDERABLES Final Result Performing Organization Address City/State/[facility] Co de Phone Number [facility] [address] [place] [address], * (ABNORMAL) Comprehensive metabolic panel (01/03/2025 11:10 AM EDT) Only the most recent of3 resultswithin the time period is included. Sodium 145 135 - 146 mmol/L 01/03/2025 12:13 PM EDT [facility] Potassium 4.4 3.6 - 5.2 mmol/L 01/03/2025 12:13 PM EDT [facility] Comment:Specimen hemolyzed r esult may be falsely increased up to 1.0 mmol/L. Chloride 106 98 - 110 mmol/L 01/03/2025 12:13 PM EDT [facility] CO2 (Bicarbonate) 24 20 - 32 mmol/L 01/03/2025 12:13 PM EDT [facility] Anion Gap 15(H) 3 - 14 mmol/L 01/03/2025 12:13 PM EDT [facility] BUN 17 6 - 24 mg/dL 01/03/2025 12:13 PM EDT [facility] Creatinine 0.98 0.55 - 1.30 mg/dL 01/03/2025 12:13 PM EDT [facility] eGFRcr 83 >=60 mL/min/1.7 3m*2 01/03/2025 12:13 PM EDT [facility] Comment:Calculated using CKD -EPI 2020 creatinine equation. Glucose 133(H) 70 - 99 mg/dL 01/03/2025 12:13 PM EDT [facility] Fasting? Yes [facility] [place] INFINITY 01/03/2025 12:13 PM EDT [facility] Calcium 9.9 8.5 - 10.5 mg/dL 01/03/2025 12:13 PM EDT [facility] AST 24 6 - 42 U/L 01/03/2025 12:13 PM EDT [facility] ALT 9 0 - 55 U/L 01/03/2025 12:13 PM EDT [facility] Alkaline phosphatase 54 30 - 130 U/L 01/03/2025 12:13 PM EDT [facility] Protein, total 7.0 6.0 - 8.4 g/dL 01/03/2025 12:13 PM EDT [facility] Albumin 4.6 3.2 - 5.0 g/dL 01/03/2025 12:13 PM EDT [facility] Bilirubin, total 0.5 0.2 - 1.2 mg/dL 01/03/2025 12:13 PM EDT [facility] Blood Venous blood specimen / Unknown Venipuncture / Unknown 01/03/2025 11:10 AM EDT 01/03/2025 11:33 AM EDT us Zeina Maradiaga MD LAB BLOOD ORDERABLES Final Result [facility] [address] [place] [address], [place] * CT HIGH RESOLUTION CHEST WO [...] GENDER: Male ORD PHYS: DAYSI FINK LOCATION: [facility] 12/28/2024 10:46 AM EDT [id number] (CT HIGH RESOLUTION CHEST WO CONTRAST) [id number] Provided History: Pulmonary sarcoidosis and tracheal stenosis [...] GENDER: Male ORD PHYS: DAYSI FINK LOCATION: [facility] 12/28/2024 10:46 AM EDT [id number] (CT HIGH RESOLUTION CHEST WO CONTRAST) [id number] Provided History: Pulmonary sarcoidosis and tracheal stenosis [...] GENDER: Male ORD PHYS: BRIDGER HERNANDEZ LOCATION: [facility] 12/19/2024 12:44 PM EDT IMG36 (XR CHEST 2 VIEWS) [id number] REASON FOR STUDY: cardiac transplantation TECHNIQUE: PA and lateral views of the chest Comparison: 10/03/2024 FINDINGS: The heart and sternal wires are unchanged. There is no pneumothorax or congestion or focal consolidation or pleural effusion. No new mediastinal widening. No acute bony changes. [place] overlie the upper lateral right hemithorax as previously. Procedure Note Denisha Mckeon MD - 12/19/2024 NAME: MATTHEW AVILA : 1955 AGE: 69 years GENDER: Male ORD PHYS: BRIDGER HERNANDEZ LOCATION: [facility] 12/19/2024 12:44 PM EDT IMG36 (XR CHEST 2 VIEWS) [id number] REASON FOR STUDY: cardiac transplantation TECHNIQUE: PA and lateral views of the chest Comparison: 10/03/2024 FINDINGS: The heart and sternal wires are unchanged. There is nopneumothorax or congestion or focal consolidation or pleural effusion. Nonew mediastinal widening. No acute bony changes. [place] overlie the upperlateral right hemithorax as previously. [...] - 12/20/2024 6:45 AM EDT Performed at: [facility] [id number] Video Games Storywriter: Iram Zambrano MD, Phone: [phone] Bridger Hernandez MD LAB BLOOD ORDERABLES Final Resu lt [facility] [address] [place] [address], [facility] 1 * PSA Total, Screen (Male patients only) (12/19/2024 12:15 PM EDT) PSA TOTAL 2.7 0.0 - 4.0 ng/mL [facility] 1 Comment: [place] ECLIA methodology. According to the [employer], Serum PSA should decrease and [...] 7:45 AM EDT Performed at: 01 - [address] [id number] Video [employer] Storywriter: Iram Zambrano MD, Phone: [phone] us Bridger Hernandez MD LAB BLOOD ORDERABLES Final Resu lt [facility] [address] [place] [address], [facility] 1 * (ABNORMAL) CBC and differential [...] - 12/19/2024 3:15 PM EDT Performed at: [address] [place] [address], [place] [id number] [employer] Storywriter: Jim Henning [facility], Phone: [phone] us Bridger Hernandez MD LAB BLOOD ORDERABLES Final Resu lt [facility] [address] [place] [address], [facility] 1 * Uric Acid (12/19/2024 12:15 PM EDT) Only the most recent of2 resultswithin the time period is included. [facility] Uric Acid 5.2 2.6 - 8.0 mg/dL [facility] 1 Comment: Although the reference interval for men extends up to 8.0 mg/dL, patients with gout may benefit from uric acid levels <6.0 mg/dL. Blood Venous blood specimen / Unknown 12/19/2024 12:15 PM EDT 12/19/2024 Narrative [facility] - 12/19/2024 3:15 PM EDT Performed at: [address] [place] [id number] Video Games Storywriter: Jim Henning [facility], Phone: [phone] us Bridger Hernandez MD LAB BLOOD ORDERABLES Final Resu lt Performing Organization Address City/[facility]/ZIP Co de Phone Number [facility] [address] [place] [address], [facility] 1 * Phosphorus (12/19/2024 12:15 PM EDT) Only the most recent of2 resultswithin the time period is included. Phosphorus 3.9 2.4 - 4.9 mg/dL [facility] 1 Blood Venous blood specimen / Unknown 12/19/2024 12:15 PM EDT 12/19/2024 Narrative [facility] - 12/19/2024 3:15 PM EDT Performed at: [address] [place] [id number] Video Games Storywriter: Jim Henning [facility], Phone: [phone] us Bridger Hernandez MD LAB BLOOD ORDERABLES Final Resu lt Performing Organization Address [facility] Co de Phone Number [facility] [address] [place] [address], [facility] 1 * (ABNORMAL) Lactate dehydrogenase (12/19/2024 12:15 PM EDT) Only the most recent of2 resultswithin the time period is included. LDH 369(H) 110 - 250 U/L [facility] 1 Blood Venous blood specimen / Unknown 12/19/2024 12:15 PM EDT 12/19/2024 Narrative [facility] - 12/19/2024 3:15 PM EDT Performed at: [address] [place] [address] [id number] Video Games Storywriter: Jim Henning [facility], Phone: [phone] us Bridger Hernandez MD LAB BLOOD ORDERABLES Final Resu lt Performing Organization Address [facility] Co de Phone Number [facility] [address] [place] [address], [facility] 1 * (ABNORMAL) Hemoglobin A1c (12/19/2024 12:15 PM EDT) Pathologist [facility] HgbA1C 6.5(H) 4.8 - 5.6 % [facility] 1 Comment: Prediabetes: 5.7 - 6.4 Diabetes: >6.4 Glycemic control for adults with diabetes: <7.0 Blood Venous blood specimen / Unknown 12/19/2024 12:15 PM EDT 12/19/2024 Narrative [facility] - 12/20/2024 4:05 AM EDT Performed at: 01 - [address] [id number] Video Games Storywriter: Iram Zambrano MD, Phone: [phone] us Bridger Hernandez MD LAB BLOOD ORDERABLES Final Resu lt Performing Organization Address [facility] de Phone Number [facility] [address] [place] [address], [facility] 1 * CK (aka CPK) (12/19/2024 12:15 PM EDT) Only the most recent of2 resultswithin the time period is included. [facility] CK Total 41 41 - 331 U/L [facility] 1 Blood Venous blood specimen / Unknown 12/19/2024 12:15 PM EDT 12/19/2024 Narrative [facility] - 12/20/2024 7:45 AM EDT Performed at: - [facility] [id number] Video Games Storywriter: Iram Zambrano MD, Phone: [phone] us Bridger Hernandez MD LAB BLOOD ORDERABLES Final Resu lt Performing Organization Address [facility] Co de Phone Number [facility] [address] [place] [address], [facility] 1 * Hepatic function panel (12/19/2024 12:15 PM EDT) Only the most recent of2 resultswithin the time period is included. Bilirubin, Direct 0.2 0.0 - 0.5 mg/dL [facility] 1 Blood Venous blood specimen / Unknown 12/19/2024 12:15 PM EDT 12/19/2024 Narrative [facility] - 12/19/2024 3:15 PM EDT Performed at: [address] [id number] Video Games Storywriter: Jim Henning [facility], Phone: [phone] us Bridger Hernandez MD LAB BLOOD ORDERABLES Final Resu lt Performing Organization Address City/[facility]/ZIP Co de Phone Number [facility] [address] [place] [address], [facility] 1 * (ABNORMAL) Lipid panel (12/19/2024 [...] - 12/20/2024 6:45 AM EDT Performed at: [address] [id number] Video Games Storywriter: Iram Zambrano MD, Phone: [phone] us Bridger Hernandez MD LAB BLOOD ORDERABLES Final Resu lt Performing Organization Address City/[facility]/ZIP Co de Phone Number [facility] [address] [place] [address], [facility] 1 * ECG 12 lead [[facility]: Epiphany] Normal (12/19/2024 10:45 AM EDT) 12/19/2024 10:4 5 AM EDT Narrative [facility] STRESS/ECG EPIPHANY CARDIOSERVER - 12/19/2024 5:05 PM EDT [facility] Test Date: 2024-12-19 Pat Name: MATTHEW AVILA Department: [facility] Room: Gender: Male Keno Writer: : 1955 Requested By: BRIDGER HERNANDEZ Order Number: [id number] Reading MD: Lacho Bauer Measurements Intervals [place] Rate: 91 P: 59 NM: 145 QRS: 40 QRSD: 77 T: 24 QT: 339 QTc: 417 Interpretive Statements Sinus rhythm Probable anteroseptal infarct, old Compared to ECG 12/31/2023 07:37:42 Sinus rhythm now more clearly present Electronically Signed On 12-19-2024 17:05:32 EDT by Lacho Bauer us Bridger Hernandez MD ECG ORDERABLES Final Result [facility] STRESS/ECG EPIPHANY CARDIOSERVER * DOBUTAMINE STRESS ECHO (23984) (12/19/2024 9:38 AM EDT) 12/19/2024 8:40 AM EDT Narrative [facility] PACS/REPORTING KRZYSZTOF ISCV - 12/19/2024 11:15 AM EDT Cardiovascular Imaging Hemodynamic Laboratory [address] [place] [address] Stress Echocardiogram Name: MATTHEW TORO Study Date: 12/19/2024 08:40 AM : 1955 Gender: Male Age: 69 yrs Ethnicity: OTHER Patient Location: [facility] Referring Physician: JOSE ANGEL NUNEZ Performed By: Osiel Michelle Ordering Physician: JOSE ANGEL NUNEZ Reason For Study: cardiac transplantation Height: 68 in Weight: 135 lb BSA: 1.7 m2 BP: 120/58 mmHg CPT/Quality/Location Stress Echo (89206). Stress Echo interp & report (90165). Supply - dobutamine. Location performed: Department. The [...] Russ MD - 12/19/2024 Cardiovascular Imaging HemodynamicLaboratory [address] [place] [address] StressEchocardiogram Name: MATTHEW TORO Study Date: 508:40 AM : 1955 Gender: Male Age: 69 yrs Ethnicity: OTHER Patient Location: [facility] Referring Physician: JOSE ANGEL NUNEZ Performed By: Osiel Michelle Ordering Physician: JOSE ANGEL NUNEZ Reason For Study: cardiac transplantation Height: 68 in Weight: 135 lb BSA: 1.7 m2 BP:120/58 mmHg CPT/Quality/Location Stress Echo (59054). Stress Echo interp & report (03842). Supply -dobutamine. Location performed: Department. The quality [...] Nunez NP CV ECHO PROCEDURES Final Result [facility] PACS/REPORTING KRZYSZTOF ISCV * ALLOMAP HEART (11/07/2024 2:20 PM EDT) ALLOMAP SCORE - HEART 32 11/09/2024 1:01 AM EDT [facility] [facility] 95% CONFIDENCE INTERVAL 95% CI:30.1-3 4.8 11/09/2024 1:01 AM EDT [facility] [facility] NEGATIVE PREDICTIVE VALUE 99.0% 11/09/2024 1:01 AM EDT [facility] [facility] POSITIVE PREDICTIVE VALUE 2.9% 11/09/2024 1:01 AM EDT [facility] [facility] TIME POST TX 0y 10m 12d 11/09/2024 1:01 AM EDT [facility] [facility] TEST COMMENTS ([facility]) <None Specified > 11/09/2024 1:01 AM EDT [facility] [facility] NOTES ([facility]) See Note 11/09/2024 1:01 AM EDT [facility] [facility] Comment: Interpretation of AlloMap score should be made using the information available at the following link: http://www.[email or web address].[email or web address] AlloMap testing performed at [facility] (CLIA No: [id number], CAP No: [id number]) Video Games Storywriter: Axel Cartagena M.D. These AlloMap test results are displayed here for your convenience. The pdf AlloMap report is the official report. The following data chamorro on the Results Details page are intentionally left empty as they are not applicable to AlloMap testing: Abnormal Units TX DATE 4 11/09/2024 1:01 AM EDT [facility] ORDER ID [id number] 11/09/2024 1:01 AM EDT [facility] [facility] CENTER ORDER ID [id number] 11/09/2024 1:01 AM EDT [facility] WP ORDER ID <None Specified > 11/09/2024 1:01 AM EDT [facility] [facility] Blood Venous blood specimen / Unknown Venipuncture / Unknown 11/07/2024 2:20 PM EDT 11/07/2024 2:48 PM EDT Jose Angel Nunez QUARRY MANAGER LAB BLOOD ORDERABLES Final Resu lt [facility] [address] [place], [place] [id number] * ALLOSURE HEART (11/07/2024 2:20 PM EDT) ALLOSURE SCORE < 0.04 % 11/09/2024 7:45 PM EDT [facility] TIME POST TX 0y 10m 12d 11/09/2024 7:45 PM EDT [facility] [facility] TEST COMMENTS (ASHK) <None Specified> 11/09/2024 7:45 PM EDT [facility] NOTES (ASHK) See Note 11/09/2024 7:45 PM EDT [facility] Comment: INTERPRETATION OF RESULTS Instructions for Interpreting [...] (2)(3) See the HeartCare interpretation guide at careOpentopic.Dubaki/heartcare for information on HeartCare, AlloSure Heart and [...] more information about AlloSure Heart, please visit [email or web address]. (1)Nik et al., J Heart Lung Transplant 2024; (2)Nik et al., Am J Transplant 2019; (3)Data on file for patients <15 years old. The AlloSure Heart Donor-Derived Cell-Free DNA Test was developed and its performance characteristics were determined by the [facility] laboratory. The test has not been cleared or approved by the U.S. Food and Drug Administration. The laboratory is certified under the Clinical Laboratory Improvement Amendments of 1988 (CLIA '88) and accredited by the College [employer] (CAP) as qualified to perform high complexity clinical laboratory testing. The contents of this report are confidential and intended solely for use by authorized personnel. AlloSure testing performed at [facility] [address] [place] [address] (CLIA No: [id number], CAP No: [id number]) Video Games Storywriter: Axel Cartagena M.D. TRANSPL[facility]GAN Heart 2024 7:45 PM EDT [facility] CLIENT SPECIMEN ID <None Specified> 11/09/2024 7:45 PM EDT [facility] [facility] TX DATE 12/28/2023 11/09/2024 7:45 PM EDT [facility] [facility] DONOR RELATION Unrelated 11/09/2024 7:45 PM EDT [facility] ORDER ID [id number] 11/09/2024 7:45 PM EDT [facility] [facility] CENTER ORDER ID [id number] 11/09/2024 7:45 PM EDT [facility] WP ORDER ID <None Specified> 11/09/2024 7:45 PM EDT [facility] Blood Venous blood specimen / Unknown Venipuncture / Unknown 11/07/2024 2:20 PM EDT 11/07/2024 2:49 PM EDT Jose Angel Nunez QUARRY MANAGER LAB BLOOD ORDERABLES Final Resu lt [facility] [address] [place] [address] * IgG (11/07/2024 2:16 PM EDT) IgG 760 603 - 1,613 mg/dL [facility] 1 Blood Venous blood specimen / Unknown 11/07/2024 2:16 PM EDT 11/07/2024 Narrative [facility] - 11/08/2024 6:15 AM EDT Performed at: 01 - [facility] [id number] Video Games Storywriter: Iram Zambrano MD, Phone: [phone] Lena Cortes NP LAB BLOOD ORDERABLES Fin al Result [facility] [address] [place] [address], [facility] 1 * Hepatitis C Virus RNA, Quantitative, RT-PCR (01/26/2024 10:30 AM EDT) Pathologist [facility] HCV RNA by RT-PCR [facility] 01/27/2024 2:18 PM EDT [facility] Comment:Not Detected HCV RNA Viral Load, log [facility] 01/27/2024 2:18 PM EDT [facility] Comment:Not Detected HCV RNA Viral Load, Interp Not Detected Not Detected [facility] 01/27/2024 2:18 PM EDT [facility] Blood Venous blood specimen / Unknown Venipuncture / Unknown 01/26/2024 10:30 AM EDT 01/26/2024 11:13 AM EDT Narrative [facility] - 01/27/2024 2:18 PM EDT This test was performed using the Osurv Alinity m HCV assay, performed on the [employer] instrument. The lower limit of quantification is 12 IU/mL. Chi Barton MD LAB BLOOD ORDERABLES Final Resu lt [facility] [address] [place] [address], * Albumin, Urine, Random (Microalbumin Random, Including Creatinine) (11/26/2023 1:50 PM EDT) Albumin, urine (INT/EXT) <1.2 mg/dL 11/26/2023 2:44 PM EDT [facility] Creatinine, urine, random (INT/EXT) 47.40 24.00 - 392.00 mg/dL 11/26/2023 2:44 PM EDT [facility] Albumin/Creatini ne ratio 11/26/2023 2:44 PM EDT [facility] Comment:Unable to calculate due to below or above Analytical Measurement Range. Urine Urine specimen / Unknown Non-blood Collection / Unknown 11/26/2023 1:50 PM EDT 11/26/2023 1:50 PM EDT Pedro Kline MD LAB URINE ORDERABLES Maral garcia Result [facility] [address] [place] [address], [place] from Last 3 Months or Most Recently Relevant to Health Maintenance Insurance MEDICARE PART A AND B [facility] SAFETY NET MEDICARE PART A AND B HEALTH SAFETY NET Advance Directives Documents on File Type Date Recorded Patient Repack Room Worker Expl anation Advance Directives and Living Will 11/25/2023 Lloyd Ahmadi Health Care Proxy * Full Code (Latest Code Status on File) Date Activated Date Inactivated Comments 11/24/2023 12:16 AM 01/20/2024 1:17 PM Healthcare Agents on File Name Relationship Healthcare Agent Relationship Communication Aleisha Ahmadi Spouse Health Care Agent [email or web address] Lloydmadyson Mandel Son First Alte rnate Health Care Agent Care Teams Job Counselor Relationship Specialty Start Date End Date Name, MD Yoandy [address] [place] [address] PCP - General Steward/Stewardess Club Car 11/12/23 Glenn Herman MD [address] [place] [address] Referring Physician Cardiology 11/12/23 Edward Handley, Juan Keno Writer Pharmacy 12/31/23 Jennie Michelle, RadhaD [address] [place] [address] Pharmacist Pharmacy 01/27/24 Bridger Hernandez MD [address] [place] [address] Attending Physician Cardiology 12/19/24
[2025-02-02 19:49] LABS: CMV DNA Qn PCR NOT DETECTED Log IU/mL (NOT DETECTED)
== END 2025-02-01 10:24 | disposition home or self-care (01) ==
LOC: HO.LAB 10:23
PROVIDERS: PCP Internal Medicine Geriatric Medicine; Visit Provider Nurse Practitioner Family
DX: B25.9 Cytomegaloviral disease, unspecified (principal)
CPT/HCPCS: 36415; 87497

== ENCOUNTER 2025-02-10 10:40 | Outpatient (REF) | payer MEDICARE, SELFPAY ==
--- OUTSIDE RECORDS SUMMARY | 2025-02-06 13:00 | XMS_ITS | Encounter Summary ---
Author Organization [facility] Address [address] [facility] [address] [place] [address] Care Team Providers Care Band Cutting Machine Operator Name Role Phone Glenn Herman MD Unavailable [phone] Yoandy Tillman MD Primary Care Provider [phone] Edward Handley career manager Unavailable Unavailable Jennie Michelle PharmD Unavailable [phone] uJan Hutchinson MD Unavailable [phone] Reason for Visit * Consultation (Routine) - Pending Review Specialty Diagnoses / Procedures Referred By Obed ricardo Referred To Contact Dermatology Diagnoses Heart transplant recipient Procedures NC OFFICE NEW 60 - 74 MIN Juan Hutchinson MD [address] [facility] [address] [place] [address] Phone: tel: fax: [facility] Dermatology [address] [place] [address] Phone: tel: Referral ID Status Reason Start Date Expiration Date Visits Requested Visits Authorized [id number] Pending Review Specialty Services Required 12/19/2024 12/19/2025 1 1 Encounter Details Date Type Department Care Team (Late st Contact Info) Description 02/06/2025 1:00 PM EST Office Visit [facility] Dermatology [address] [place] [address] Nelida Ayala MD [address] [place] [address] Eczema craquele (Primary Dx); Tinea cruris; Onychomycosis; Irritant contact dermatitis due to other agents; Eng angioma; Immunosuppression Social History Tobacco Use Types Packs/Day Years [...] Bethany Padilla RN documented in this encounter Progress Notes * Nelida Bolton MD - 02/06/2025 1:00 PM EST DERMATOLOGY NEW PATIENT VISIT A(n) phone peanut grader was used to obtain the history and discuss the treatment plan with the patient. The peanut grader was used for the following language: Tajik. The peanut grader's name and ID are as follows: ID [id number], name Gustavo. YOBANY Avila is a 69 y.o. 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 +severe itching. No change in severity in Winter vs. Summer months. - Uses Cetaphil body wash and Lubriderm body moisturizer. No rx topicals. #Rash on groin - Present for months, +itch, treating with OTC antifungal powder without improvement. ROS Patient feels well. Reports no other skin complaints or systemic symptoms except as stated above. Physical Exam/Impression/Plan Well appearing patient in no apparent distress; mood and affect are within normal limits. Skin examwas performed of the following and pertinent positives are included below: face, neck, chest, back,abdomen, upper extremities, hands, lower extremities, feet, digits and nails, groin, buttocks, scalp. Skin Exam ECZEMA CRAQUELE Left Lower Leg - Anterior, Right Lower Leg - Anterior Linear crusted plaques and horizontal fissures with surrounding dry skin on bilateral lower extremities. - Status: Chronic illness with exacerbation, progression or side effects of treatment - Discussed gentle skincare for dry skin. Handout provided for dry/sensitive skincare. Advised to start use of Vaseline/Aquaphor rather than Lubriderm after bathing, ok to continue Cetaphil body wash. - START: triamcinolone 0.1% ointment BID PRN for up to 2 weeks per month. - Side effects of topical steroids discussed, including: irritation, atrophy, acne, telangiectasias, lightening of the skin. This Visit - triamcinolone (Kenalog) 0.1 % ointment - Apply topically twice daily to affected areas, stop whenclear. For up to 2 weeks per month. TINEA CRURIS Pubic Annular scaly erythematous plaques on bilateral medial thighs and inguinal folds. - Status: Chronic illness with exacerbation, progression or side effects of treatment - Infectious etiology and treatment options discussed. - START: ketoconazole 2% cream BID, stop when clear. This Visit - ketoconazole (NIZOral) 2 % cream - Apply topically twice daily to affected areas, stop when clear. ONYCHOMYCOSIS (2) Left Hallux Toenail, Right Hallux Toenail Subungual hyperkeratosis and yellow-kris discoloration of toenails. - Discussed infectious etiology, pt follows with Podiatry and is using a prescription topical treatment. IRRITANT CONTACT DERMATITIS DUE TO OTHER AGENTS Scalp Erythema and scale throughout scalp with mild lichenification at temporal scalp bilaterally. - Status: Chronic illness with exacerbation, progression or side effects of treatment - Discussed etiology and treatment options, including avoidance of triggers, gentle skin care and emollients. Likely related to irritation from close shaving on scalp. Exam not consistent with seborrheic dermatitis today. - Advised to use a alannah instead of shaving with a razor blade and allowing hair to remain at least 1mm in length. - START: fluocinolone 0.01% oil BID PRN for up to 2 weeks per month. - Side effects of topical steroids discussed, including: irritation, atrophy, acne, telangiectasias, lightening of the skin. This Visit - fluocinolone and shower cap 0.01 % oil - Apply twice daily topically to scalp for up to 2 weeks per month. Stop when clear. ENG ANGIOMA Generalized Eng red to purple papule(s). Benign, reassured. IMMUNOSUPPRESSION Generalized Pt on tacrolimus and MMF s/p heart transplant for NICM 2/2 cardiac sarcoidosis. - Discussed increased risk for developing skin cancer while on immunosuppressive medications. Advised to follow-up for annual skin checks. Other Procedures Placed This Visit - Ambulatory referral to Dermatology RTC in 1 year or sooner if new or suspicious lesions should occur or if current condition worsens or does not improve. Patient seen and discussed with Dr. Bolton, please see Attending Attestation. Margot Andrew MD PGY-2, Dermatology 02/06/25 1:15 PM I personally interviewed and examined the patient and both the resident and I contributed to this electronic note. I agree with the history, exam, assessment and plan as detailed in this note and edited it as necessary. Nelida Bolton MD Physician 02/06/25 documented in this encounter Plan of Treatment Upcoming Encounters Date Type Department Care Team (Late st Contact Info) Description 02/22/2025 2:00 PM EST Office Visit [facility] Neurology [address] [place] [address] Percy Kapoor MD [facility] [address] [place] [address] 02/28/2025 6:50 AM EST Hospital Encounter [facility] Main OR [address] [place] [address] Loren Hall MD [address] [facility] [address] [place] [address] Cytomegalovirus infection, unspecified cytomegaloviral infection type 02/28/2025 8:50 AM EST - 02/28/2025 10:20 AM EST Surgery [facility] Main OR [address] [place] [address] Loren Hall MD [address] [facility] [address] [place] [address] Bronchoscopy with dilation [41083 (CPT )] 03/20/2025 12:00 PM EST Office Visit [facility] Cardiac Subspecialty [address] [facility] [address] [place] [phone] Charlie Barry MD [address] [place] [address] 05/15/2025 1:00 PM EST Office Visit [facility] Dermatology [address] [place] [address] Nelida Ayala MD [address] [place] [address] 07/12/2025 10:30 AM EDT Appointment [facility] Pulmonary Function Lab [address] [facility] [address] Floor Room [address] [place] [address] 07/12/2025 11:30 AM EDT Office Visit [facility] Pulmonary [address] [facility] [address] [place] [phone] Daysi Fink MD [address] [facility] [address] [place] [address] Scheduled Procedures Name Priority Associated Diagnoses Date/Ti me Bronchoscopy Tracheal stenosis 02/28/2025 8:50 AM EST documented as of this encounter Visit Diagnoses Diagnosis Eczema craquele- Primary Other specified disease of sebaceous glands Tinea cruris Dermatophytosis of groin and perianal area Onychomycosis Dermatophytosis of nail Irritant contact dermatitis due to other agents Eng angioma Immunosuppression Cytomegalovirus infection, unspecified cytomegaloviral infection type Tracheal stenosis Other diseases of trachea and bronchus Cytomegalovirus infection, unspecified cytomegaloviral infection type documented in this encounter Care Teams Band Cutting Machine Operator Relationship Specialty Start Date End Date Name, MD Yoandy [address] [place] [address] PCP - General Senior Patrol Agent 11/12/23 Glenn Herman MD [address] [place] [address] Referring Physician Cardiology 11/12/23 Edward Handley CPhT Insurance Loss Control Surveyor Pharmacy 12/31/23 Jennie Michelle, PharmD [address] [place] [address] Pharmacist Pharmacy 01/27/24 Juan Hutchinson MD [address] [place] [address] [address] [place] [address] Attending Physician Cardiology 12/19/24 documented as of this encounter
--- OUTSIDE RECORDS SUMMARY | 2025-02-10 12:39 | XMS_ITS | Encounter Summary ---
Author Organization [facility] Address 800 [facility] [address] [place] [address] Care Team Providers Care Network Design Architect Name Role Phone Glenn Herman MD Unavailable [phone] Yoandy Tillman MD Primary Care Provider [phone] Edward Handley sponge packer Unavailable Unavailable Jennie Michelle PharmD Unavailable Juan Hutchinson MD Unavailable [phone] Reason for Visit * Reason Comments Med Change Request Encounter Details Date Type Department Care Team (Late st Contact Info) Description 03/17/2024 Refill [facility] Cardiac Subspecialty 8[address] [facility] 6th [place] [address] Charlie Barry MD 800 [place] [address] 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) Social History [...] place to sleep or slept in a jail (including now)? No 11/26/2023 Sex and Gender [...] - 03/17/2024 4:02 PM EST Filled at [facility] documented in this encounter Plan of Treatment Upcoming Encounters Date Type Department Care Team (Late st Contact Info) Description 02/22/2025 2:00 PM EST Office Visit [facility] Neurology [address] [place] [address] Percy Kapoor MD [address] [address] 02/28/2025 6:50 AM EST Hospital Encounter [facility] Main OR [address] [place] [address] Loren Hall MD [address] [place] [address] Cytomegalovirus infection, unspecified cytomegaloviral infection type 02/28/2025 8:50 AM EST - 02/28/2025 10:20 AM EST Surgery [facility] Main OR [address] [place] [address] Loren Hall MD [address] [place] [address] Bronchoscopy with dilation [40367 (CPT )] 03/20/2025 12:00 PM EST Office Visit [facility] Cardiac Subspecialty [address] [facility] 6th [place] [phone] Charlie Barry MD [address] [place] [address] 05/15/2025 1:00 PM EST Office Visit [facility] Dermatology [address] [place] [address] Nelida Ayala MD [address] [place] [address] 07/12/2025 10:30 AM EDT Appointment [facility] Pulmonary Function Lab [address] [facility] 5th Floor Room 511 [place] [address] 07/12/2025 11:30 AM EDT Office Visit [facility] Pulmonary [address] [facility] [address] 3rd [place] [address] Daysi Fink MD 800 [facility] [address] [place] [phone] Scheduled Procedures Name Priority Associated Diagnoses Date/Ti me Bronchoscopy Tracheal stenosis 02/28/2025 8:50 AM EST documented as of this encounter Visit Diagnoses Diagnosis Heart replaced by transplant Cytomegalovirus infection, unspecified cytomegaloviral infection type Tracheal stenosis Other diseases of trachea and bronchus Cytomegalovirus infection, unspecified cytomegaloviral infection type documented in this encounter Care Teams Network Design Architect Relationship Specialty Start Date End Date Name, MD Yoandy [address] [place] [address] PCP - General Nursing Assoc 11/12/23 Glenn Herman MD [address] [place] [address] Referring Physician Cardiology 11/12/23 Edward Handley CPhT [facility] 12/31/23 Jennie Michelle, RadhaD [address] [place] [address] Pharmacist Pharmacy 01/27/24 Juan Hutchinson MD [address] [place] [address] [place] [address] Attending Physician Cardiology 12/19/24 documented as of this encounter
--- OUTSIDE RECORDS SUMMARY | 2025-02-10 12:39 | XMS_ITS | Encounter Summary ---
Author Organization [facility] Address 800 [facility] [address] [place] [address] Care Team Providers Care Web Press Operator Apprentice Name Role Phone Glenn Herman MD Unavailable Name, Yoandy LUGO Primary Care Provider [phone] Edward Handley swimming pool salesperson Unavailable Unavailable Jennie Michelle PharmD Unavailable [phone] Juan Hutchinson MD Unavailable [phone] Encounter Details Date Type Department Care Team (Late st Contact Info) Description 12/29/2023 Lab Requisition [facility] HLA Lab 800 [place] [phone] Pedro Kline MD 800 [facility] [address] [place] [address] Cardiomyopathy, unspecified (Multi-HCC) Social History Tobacco Use [...] Description 02/22/2025 2:00 PM EST Office Visit [facility] Neurology [address] [place] [phone] Percy Kapoor MD [address] [address] 02/28/2025 6:50 AM EST Hospital Encounter [facility] Main OR [address] [place] [phone] Loren Hall MD [address] [place] [address] Cytomegalovirus infection, unspecified cytomegaloviral infection type 02/28/2025 8:50 AM EST - 02/28/2025 10:20 AM EST Surgery [facility] Main OR [address] [place] [phone] Loren Hall MD [address] [place] [address] Bronchoscopy with dilation [12159 (CPT )] 03/20/2025 12:00 PM EST Office Visit [facility] Cardiac Subspecialty 8[address] [facility] 6th [place] [address] Charlie Barry MD [address] [place] [address] 05/15/2025 1:00 PM EST Office Visit [facility] Dermatology [address] [place] [address] Nelida Ayala MD 800 [place] [address] 07/12/2025 10:30 AM EDT Appointment [facility] Pulmonary Function Lab [address] [facility] [address] 5th Floor Room 511 [place] [phone] 07/12/2025 11:30 AM EDT Office Visit [facility] Pulmonary [address] [facility] [address] 3rd [place] [address] Daysi Fink MD 800 [facility] [address] [place] [phone] Scheduled Procedures Name Priority Associated Diagnoses Date/Ti me Bronchoscopy Tracheal stenosis 02/28/2025 8:50 AM EST documented as of this encounter Procedures Procedure Name Priority Date/Time Associated Diagnosis Comments HLA CONSULTATION Routine 12/26/2023 11:5 6 PM EDT Cardiomyopathy, unspecified (Multi-HCC) documented in this encounter Results * HLA Consultation (12/26/2023 11:56 PM EDT) PDF Attached See PDF Document 01/02/2024 12:[address] [facility] HLA LAB Blood Venous blood specimen / Unknown 12/26/2023 11:56 PM EDT 12/29/2023 10:28 PM EDT us Pedro Kline MD LAB BLOOD ORDERABLES Maral garcia Result [facility] HLA LAB 800 [place] [address], documented in this encounter Visit Diagnoses Diagnosis Cardiomyopathy, unspecified Cytomegalovirus infection, unspecified cytomegaloviral infection type Tracheal stenosis Other diseases of trachea and bronchus Cytomegalovirus infection, unspecified cytomegaloviral infection type documented in this encounter Care Teams Web Press Operator Apprentice Relationship Specialty Start Date End Date Name, MD Yoandy [address] [place] [address] PCP - General Survey Technologist 11/12/23 Glenn Herman MD [address] [place] [address] Referring Physician Cardiology 11/12/23 Edward Handley CPhT [facility] 12/31/23 Jennie Michelle, PharmD [address] [place] [address] Pharmacist Pharmacy 01/27/24 Juan Hutchinson MD [address] [place] [address] [place] [address] Attending Physician Cardiology 12/19/24 documented as of this encounter
--- OUTSIDE RECORDS SUMMARY | 2025-02-10 12:39 | XMS_ITS | Encounter Summary ---
Author Organization [facility] Address 800 [facility] [address] [place] [address] Care Team Providers Care Senior Health Physics Technician Name Role Phone Glenn Herman MD Unavailable Name, Yoandy LUGO Primary Care Provider [phone] Edward Handley missile mechanic Unavailable Unavailable Jennie Michelle PharmD Unavailable [phone] Juan Hutchinson MD Unavailable [phone] Encounter Details Date Type Department Care Team (Late st Contact Info) Description 12/25/2023 Lab Requisition [facility] HLA Lab 800 [place] [phone] Pedro Kline MD 800 [facility] [address] [place] [address] Cardiomyopathy, unspecified (Multi-HCC) Social History Tobacco Use [...] of Assessment Author No 11/26/2023 11:17 AM eBthany Padilla RN * Because of a physical, [...] Description 02/22/2025 2:00 PM EST Office Visit [facility] Neurology [address] [place] [phone] Percy Kapoor MD [address] [address] 02/28/2025 6:50 AM EST Hospital Encounter [facility] Main OR [address] [place] [phone] Loren Hall MD [address] [place] [address] Cytomegalovirus infection, unspecified cytomegaloviral infection type 02/28/2025 8:50 AM EST - 02/28/2025 10:20 AM EST Surgery [facility] Main OR [address] [place] [address] Loren Hall MD [address] [place] [address] Bronchoscopy with dilation [61203 (CPT )] 03/20/2025 12:00 PM EST Office Visit [facility] Cardiac Subspecialty 860 [facility] 6th [place] [phone] Charlie Barry MD [address] [place] [address] 05/15/2025 1:00 PM EST Office Visit [facility] Dermatology 260 [place] [address] Nelida Ayala MD 800 [place] [address] 07/12/2025 10:30 AM EDT Appointment [facility] Pulmonary Function Lab [address] [facility] [address] 5th Floor Room 511 [place] [phone] 07/12/2025 11:30 AM EDT Office Visit [facility] Pulmonary [address] [facility] [address] 3rd [place] [address] Daysi Fink MD [address] [facility] [address] [place] [address] Scheduled Procedures Name Priority Associated Diagnoses Date/Ti me Bronchoscopy Tracheal stenosis 02/28/2025 8:50 AM EST documented as of this encounter Procedures Procedure Name Priority Date/Time Associated Diagnosis Comments HLA CONSULTATION Routine 12/25/2023 8:41 AM EDT Cardiomyopathy, unspecified (Multi-HCC) documented in this encounter Results * HLA Consultation (12/25/2023 8:41 AM EDT) PDF Attached See PDF Document 12/26/2023 3:15 PM EDT [facility] HLA LAB Blood Venous blood specimen / Unknown 12/25/2023 8:41 AM EDT 12/25/2023 7:39 PM EDT us Pedro Kline MD LAB BLOOD ORDERABLES Maral garcia Result [facility] HLA LAB 800 [place] [address], documented in this encounter Visit Diagnoses Diagnosis Cardiomyopathy, unspecified Cytomegalovirus infection, unspecified cytomegaloviral infection type Tracheal stenosis Other diseases of trachea and bronchus Cytomegalovirus infection, unspecified cytomegaloviral infection type documented in this encounter Care Teams Senior Health Physics Technician Relationship Specialty Start Date End Date Name, MD Yoandy [address] [place] [address] PCP - General Wastewater Treatment Plant Attendant 11/12/23 Glenn Herman MD [address] [place] [address] Referring Physician Cardiology 11/12/23 Edward Handley CPhT Memorandum Statement Clerk Pharmacy 12/31/23 Jennie Michelle, PharmD [address] [place] [address] Pharmacist Pharmacy 01/27/24 Juan Hutchinson MD [address] [place] [address] [place] [address] Attending Physician Cardiology 12/19/24 documented as of this encounter
--- OUTSIDE RECORDS SUMMARY | 2025-02-10 12:39 | XMS_ITS | Encounter Summary ---
Author Organization [facility] Address 800 [facility] [address] [place] [address] Care Team Providers Care Restaurant Assistant Name Role Phone Glenn Herman MD Unavailable [phone] Yoandy Tillman MD Primary Care Provider [phone] Edward Handley healthcare risk control consultant Unavailable Unavailable Jennie Michelle PharmD Unavailable Juan Hutchinson MD Unavailable [phone] Reason for Visit * Reason Comments Med Refill Encounter Details Date Type Department Care Team (Late st Contact Info) Description 02/08/2025 Refill [facility] Cardiac Subspecialty [address] [address] Dena Mitchell NP 800 [place] [address] Heart transplant recipient Social History Tobacco Use Types Packs/Day Years [...] Description 02/22/2025 2:00 PM EST Office Visit [facility] Neurology [address] [place] [address] Percy Kapoor MD [address] [address] 02/28/2025 6:50 AM EST Hospital Encounter [facility] Main OR [address] [place] [phone] Loren Hall MD [address] [place] [address] Cytomegalovirus infection, unspecified cytomegaloviral infection type 02/28/2025 8:50 AM EST - 02/28/2025 10:20 AM EST Surgery [facility] Main OR [address] [place] [address] Loren Hall MD [address] [place] [address] Bronchoscopy with dilation [07405 (CPT )] 03/20/2025 12:00 PM EST Office Visit [facility] Cardiac Subspecialty 860 [facility] 6th [place] [phone] Charlie Barry MD [address] [place] [address] 05/15/2025 1:00 PM EST Office Visit [facility] Dermatology [address] [place] [address] Nelida Ayala MD 800 [place] [address] 07/12/2025 10:30 AM EDT Appointment [facility] Pulmonary Function Lab 800 [facility] [address] 5th Floor Room 511 [place] [phone] 07/12/2025 11:30 AM EDT Office Visit [facility] Pulmonary [address] [facility] [address] 3rd [place] [address] Daysi Fink MD [address] [facility] [address] [place] [address] Scheduled Procedures Name Priority Associated Diagnoses Date/Ti me Bronchoscopy Tracheal stenosis 02/28/2025 8:50 AM EST documented as of this encounter Visit Diagnoses Diagnosis Heart transplant recipient Cytomegalovirus infection, unspecified cytomegaloviral infection type Tracheal stenosis Other diseases of trachea and bronchus Cytomegalovirus infection, unspecified cytomegaloviral infection type documented in this encounter Care Teams Restaurant Assistant Relationship Specialty Start Date End Date Name, MD Yoandy [address] [place] [address] PCP - General Campaign Associate 11/12/23 Glenn Herman MD [address] [place] [address] Referring Physician Cardiology 11/12/23 Edward Handley, Juan Corporate Quality Manager Pharmacy 12/31/23 Jennie Michelle, PharmD [address] [place] [address] Pharmacist Pharmacy 01/27/24 Juan Hutchinson MD [address] [place] [address] [place] [address] Attending Physician Cardiology 12/19/24 documented as of this encounter
--- OUTSIDE RECORDS SUMMARY | 2025-02-10 12:39 | XMS_ITS | Encounter Summary ---
Author Organization [facility] Address 800 [facility] [address] [place] [address] Care Team Providers Care Bilingual Medical Receptionist Name Role Phone Glenn Herman MD Unavailable [phone] Name, Yoandy LUGO Primary Care Provider [phone] Edward Handley loss prevention supervisor Unavailable Unavailable Jennie Michelle PharmD Unavailable [phone] Juan Hutchinson MD Unavailable [phone] Encounter Details Date Type Department Care Team (Late st Contact Info) Description 02/09/2025 Telephone [facility] Infectious Disease 260 [facility] 3rd [place] [address] Lena Cortes, DIRECTOR EDUCATIONAL RADIO 800 [place] [address] Social History Tobacco Use Types [...] Telephone Encounter - Lena Cortes NP - 02/09/2025 12:00 PM EST Through the aide of Mozambican interpretor Jeannie #[phone] left message reminding aminta to go for weekly CMV DNA. He will need to go weekly until 03/21. Lena Cortes NP 02/09/2025 12:01 PM documented in this encounter Plan of Treatment Upcoming Encounters Date Type Department Care Team (Late st Contact Info) Description 02/22/2025 2:00 PM EST Office Visit [facility] Neurology [address] [place] [phone] Percy Kapoor MD [address] [address] 02/28/2025 6:50 AM EST Hospital Encounter [facility] Main OR [address] [place] [phone] Loren Hall MD [address] [place] [address] [address] [place] [address] Cytomegalovirus infection, unspecified cytomegaloviral infection type 02/28/2025 8:50 AM EST - 02/28/2025 10:20 AM EST Surgery [facility] Main OR [address] [place] [address] Loren Hall MD 800 [facility] [address] [place] [address] Bronchoscopy with dilation [08556 (CPT )] 03/20/2025 12:00 PM EST Office Visit [facility] Cardiac Subspecialty 860 [facility] 6th [place] [phone] Charlie Barry MD 800 [place] [address] 05/15/2025 1:00 PM EST Office Visit [facility] Dermatology [address] [place] [address] Nelida Ayala MD 800 [place] [address] 07/12/2025 10:30 AM EDT Appointment [facility] Pulmonary Function Lab [address] [facility] [address] 5th Floor Room 511 [place] [phone] 07/12/2025 11:30 AM EDT Office Visit [facility] Pulmonary 260 [facility] [address] [facility] 3rd [place] [phone] Daysi Fink MD 800 [facility] [address] [place] [address] Scheduled Procedures Name Priority Associated Diagnoses Date/Ti me Bronchoscopy Tracheal stenosis 02/28/2025 8:50 AM EST documented as of this encounter Goals Goal Patient Goal Type Associated Problems Recent Progress Patient-Stated? Author Autogenerat ed Goal Care Plan Autogenerated Problem No Cindy Aj documented as of this encounter Visit Diagnoses Not on filedocumented in this encounter Additional Health Concerns Active Problems Noted Date Diagnosed Date Autogenerated Problem 02/09/2025 documented as of this encounter Care Teams Bilingual Medical Receptionist Relationship Specialty Start Date End Date Name, MD Yoandy [address] [place] [address] PCP - General Second Cook And Baker 11/12/23 Glenn Herman MD [address] [place] [address] Referring Physician Cardiology 11/12/23 Edward Handley, loss prevention supervisor [facility] 12/31/23 Jennie Michelle, PharmD [address] [place] [address] Pharmacist Pharmacy 01/27/24 Juan Hutchinson MD [address] [place] [address] [place] [address] Attending Physician Cardiology 12/19/24 documented as of this encounter
--- OUTSIDE RECORDS SUMMARY | 2025-02-10 12:39 | XMS_ITS | Encounter Summary ---
Author Organization [facility] Address 800 [facility] 520 [place] [address] Care Team Providers Care Security Developer Name Role Phone Glenn Herman MD Unavailable NameYoandy MD Primary Care Provider Edward Handley phosphoric acid supervisor Unavailable Unavailable Jennie Michelle PharmD Unavailable [phone] Juan Hutchinson MD Unavailable [phone] Encounter Details Date Type Department Care Team (Late st Contact Info) Description 12/20/2024 Results Follow-Up [facility] Infectious Disease 260 [facility] 3rd [place] [address] Lena Cortes, SUPERVISING LIBRARIAN 800 [place] [phone] Social History Tobacco Use Types Packs/Day Years [...] Description 02/22/2025 2:00 PM EST Office Visit [facility] Neurology 260 [place] [address] Percy Kapoor MD [address] [address] 02/28/2025 6:50 AM EST Hospital Encounter [facility] OR [address] [place] [address] Loren Hall MD [address] [place] [address] Cytomegalovirus infection, unspecified cytomegaloviral infection type 02/28/2025 8:50 AM EST - 02/28/2025 10:20 AM EST Surgery [facility] Main OR [address] [place] [address] Loren Hall MD [address] [place] [address] Bronchoscopy with dilation [68603 (CPT )] 03/20/2025 12:00 PM EST Office Visit [facility] Cardiac Subspecialty 860 [facility] 6th [place] [address] Charlie Barry MD [address] [place] [address] 05/15/2025 1:00 PM EST Office Visit [facility] Dermatology 260 [place] [address] Nelida Ayala MD 800 [place] [address] 07/12/2025 10:30 AM EDT Appointment [facility] Pulmonary Function Lab 800 [facility] 5th Floor Room [address] [place] [phone] 07/12/2025 11:30 AM EDT Office Visit [facility] Pulmonary [address] [facility] [address] 3rd [place] [phone] Daysi Fink MD 800 [facility] [address] [place] [address] Scheduled Procedures Name Priority Associated Diagnoses Date/Ti me Bronchoscopy Tracheal stenosis 02/28/2025 8:50 AM EST documented as of this encounter Visit Diagnoses Not on filedocumented in this encounter Care Teams Security Developer Relationship Specialty Start Date End Date Name, MD Yoandy [address] [place] [address] PCP - General Half Section Ironer 11/12/23 Glenn Herman MD [address] [place] [address] Referring Physician Cardiology 11/12/23 Edward Handley CPhT Applications Developer Pharmacy 12/31/23 Jennie Michelle, RadhaD [address] [place] [address] Pharmacist Pharmacy 01/27/24 Juan Hutchinson MD [address] [place] [address] [address] [place] [address] Attending Physician Cardiology 12/19/24 documented as of this encounter
--- OUTSIDE RECORDS SUMMARY | 2025-02-10 12:39 | XMS_ITS | Encounter Summary ---
Author Organization [facility] Address [address] [facility] [address] [place] [address] Care Team Providers Care Gas Burner Operator Name Role Phone Glenn Herman MD Unavailable [phone] Yoandy Tillman MD Primary Care Provider [phone] Edward Handley automotive parts coordinator Unavailable Unavailable Jennie Michelle PharmD Unavailable [phone] Juan Hutchinson MD Unavailable Encounter Details Date Type Department Care Team (Latest Contact Info) Description 02/06/2025 Travel Social History Tobacco Use Types Packs/Day [...] place to sleep or slept in a group home (including now)? No 11/26/2023 Sex and [...] Description 02/22/2025 2:00 PM EST Office Visit [facility] Neurology [address] [place] [address] Percy Kapoor MD [address] [address] 02/28/2025 6:50 AM EST Hospital Encounter [facility] [place] [address] [place] [phone] Loren Hall MD [address] [place] [phone] Cytomegalovirus infection, unspecified cytomegaloviral infection type 02/28/2025 8:50 AM EST - 02/28/2025 10:20 AM EST Surgery [facility] Main OR [address] [place] [phone] Loren Hall MD [address] [place] [phone] Bronchoscopy with dilation [28013 (CPT )] 03/20/2025 12:00 PM EST Office Visit [facility] Cardiac Subspecialty [address] [facility] [address] [place] [phone] Charlie Barry MD [address] [place] [address] 05/15/2025 1:00 PM EST Office Visit [facility] Dermatology [address] [place] [address] Nelida Ayala MD [address] [place] [address] 07/12/2025 10:30 AM EDT Appointment [facility] Pulmonary Function Lab [address] [facility] [address] [facility] 5th Floor Room [address] [place] [phone] 07/12/2025 11:30 AM EDT Office Visit [facility] [address] [facility] 3rd [place] [phone] Daysi Fink MD [address] [facility] [address] [place] [phone] Scheduled Procedures Name Priority Associated Diagnoses Date/Ti me Bronchoscopy Tracheal stenosis 02/28/2025 8:50 AM EST documented as of this encounter Visit Diagnoses Not on filedocumented in this encounter Care Teams Gas Burner Operator Relationship Specialty Start Date End Date Name, MD Yoandy [address] [place] [address] PCP - General Frozen Pie Maker 11/12/23 Glenn Herman MD [address] [place] [address] Referring Physician Cardiology 11/12/23 Edward Handley CPhT Showroom Executive Director Pharmacy 12/31/23 Jennie Michelle, RadhaD [address] [place] [phone] Pharmacist Pharmacy 01/27/24 Juan Hutchinson MD [address] [facility] [address] [place] [address] Attending Physician Cardiology 12/19/24 documented as of this encounter
--- OUTSIDE RECORDS SUMMARY | 2025-02-10 12:39 | XMS_ITS ---
Author Organization [facility] Address [address] [facility] [place] [address] Care Team Providers Care Ladle Pourer Name Role Phone Glenn Herman MD Unavailable [phone] NameYoandy MD Primary Care Provider [phone] Edward Handley manager report Unavailable Unavailable Jennie Michelle PharmD Unavailable [phone] Juan Hutchinson MD Unavailable [phone] Transplant Episode Heart Recipient [facility] ([place], [place]) - MAN Organ Received: Heart Transplanted on 12/28/2023 Marked as Active Follow-up on 12/28/2023 Heart CoordinatorZackery Paulino RN Phone: N/A Fax: N/A Email: N/A [place] Organ Diagnosis Organ Primary Contributory Heart Dilated [...] Role Phone Fax Email Zackery Paulino RN Loom Blower N/A N/A N/A Glenn Herman MD Referring Physician [phone] N/A Izaiah Watt MD Master Carpenter [phone] N/A Events Post-Transplant Pre-Transplant Admitted: 11/23/2023 Referred: 11/09/2023 Transplanted: 12/28/2023 Evaluation began: 4 Discharged: 01/14/2024 Committee: 12/21/2023 Center waitlisted: 4 Appointments (01/10/2025 - 03/12/2025) When With Visit Type Description 02/06/2025 Derm - Main [place] [facility] New Patient Eczema c raquele (Primary Dx); Tinea cruris; Onychomycosis; Irritant contact dermatitis due to other agents; Sharp angioma; Immunosuppression
--- OUTSIDE RECORDS SUMMARY | 2025-02-10 12:39 | XMS_ITS | Clinical Summary ---
Author Organization [facility] Address [address] [facility] [address] [place] [address] Care Team Providers Care Employee Service Officer Name Role Phone Glenn Herman MD Unavailable [phone] NameYoandy MD Primary Care Provider [phone] Edward Handley central office inspector Unavailable Unavailable Jennie Michelle PharmD Unavailable [phone] Bridger Hernandez MD Unavailable [phone] Allergies Active Allergy Reactions Criticality Noted [...] 01/13/20 3:21 PM EDT 025 2025 Active cholecalcifer ol, vitamin D3, (Vitamin D-3) 25 MCG (1000 UT) tabletIndicat ions:Heart transplant recipient Take 1 tablet (1,000 Units) by mouth once daily. 30 tablet 11 11/18/19 25 3:45 PM EDT 025 2025 Active aspirin 81 mg chewable tabletIndicat ions:Heart transplant recipient Chew 1 tablet (81 mg) once daily. 30 tablet 11 11/18/19 25 3:45 PM EDT 025 2025 Active predniSONE (Deltasone) 5 mg tabletIndicat ions:Heart transplant recipient Take 1 tablet (5 mg) by mouth once daily. 30 tablet 5 01/13/20 3:21 PM EDT 025 2025 Active pantoprazole (ProtoNix) 40 mg EC tabletIndicat ions:Heart transplant recipient Take 1 tablet (40 mg) by mouth before breakfast. Do not crush, chew, or split. 30 tablet 11 01/13/20 25 3:21 PM EDT 025 2025 Active sulfamethoxaz ole-trimethop rim (Bactrim DS) 800-160 mg tabletIndicat ions:Heart transplant recipient Take 1 tablet by mouth once daily. 30 tablet 12/15/19 25 4:35 PM EDT Active levETIRAcetam (Keppra) 750 mg tabletIndicat ions:Heart transplant recipient Take 1 tablet (750 mg) by mouth twice daily. 60 tablet 2 01/13/20 3:21 PM EDT 025 2024 Active mycophenolate (Cellcept) 250 mg capsuleIndica tions:Heart transplant recipient Take 1 capsule (250 mg) by mouth twice daily. 60 capsule 11 01/13/20 25 3:21 PM EDT 025 2025 Active mycophenolate [...] 25 3:21 PM EDT 025 2025 Active triamcinolone (Kenalog) 0.1 % ointmentIndic ations:Eczema craquele Apply topically twice daily to affected areas, stop when clear. For up to 2 weeks per month. 80 g 2 02/07/20 25 2:10 PM EST Active ketoconazole (NIZOral) 2 % creamIndicati ons:Tinea cruris Apply topically twice daily to affected areas, stop when clear. 60 g 11 02/07/20 25 2:10 PM EST 025 Active fluocinolone and shower cap 0.01 % oilIndication s:Irritant contact dermatitis due to other agents Apply twice daily topically to scalp for up to 2 weeks per month. Stop when clear. 118.28 mL 2 02/07/20 25 2:10 PM EST Active famotidine (Pepcid) 20 mg tabletIndicat ions:Heart transplant recipient Take 1 tablet (20 mg) by mouth before evening meal. 30 tablet 11 025 2025 Active famotidine (Pepcid) 20 mg tabletIndicat ions:Heart transplant recipient Take 1 tablet (20 mg) by mouth before evening meal. 30 tablet 2 01/13/20 25 3:21 PM EDT 025 2024 Discontin ued(Reord er) valGANciclovi r (Valcyte) 450 mg tabletIndicat ions:Cytomega lovirus (CMV) viremia Take 1 tablet (450 mg) by mouth twice daily. Do not crush or chew. 30 tablet 1 01/13/20 3:21 PM EDT 025 2024 Active Problems Problem Noted Date [...] 's report Asked patient to call his Tray Room Worker regarding his increased weight/swelling for further recommendations. Last Assessment & Plan: reports he's up a few pounds from his baseline weight, worsening leg swelling over the last few days. Compliant with Torsemide - taking full dose per 's report Asked patient to call his Tray Room Worker regarding his increased weight/swelling for further recommendations. Ventricular tachycardia 04/06/2022 110 08/2023 Overview (11/26/2023): Last Assessment & Plan: Prior VT arrest in September. ICD in situ. On low-dose beta-alis. No obstructive CAD on cardiac catheterization in September. Last Assessment & Plan: Prior VT arrest in September. ICD in situ. On low-dose beta-alis. No obstructive CAD on cardiac catheterization in September. Encounters Date Type Department Care Team Description 02/09/2025 Telephone [facility] Infectious Disease [address] [phone] Lena Cortes NP 02/08/2025 Refill [facility] Infectious Disease [address] [phone] Lena Cortes NP Cytomegalovirus (CMV) viremia 02/08/2025 Refill [facility] Cardiac Subspecialty [address] [phone] Jose Angel Nunez NP Heart transplant recipient 02/06/2025 1:00 PM EST Office Visit [facility] Dermatology [address] [place] [address] Nelida Ayala MD Eczema craquele (Primary Dx); Tinea cruris; Onychomycosis; Irritant contact dermatitis due to other agents; Sharp angioma; Immunosuppression 02/06/2025 Travel 02/02/2025 2:00 PM EDT Office Visit [facility] Lung Nodule [address] [phone] Loren Hall MD Tracheal stenosis following tracheostomy (Primary Dx); Heart transplant recipient; Immunosuppressed status 02/02/2025 1:30 PM EDT Office Visit [facility] Lung Nodule 800 [facility] [address] [place] [address] Alfred Mckeon MD Tracheal stenosis (Primary Dx) 02/02/2025 Travel 01/24/2025 Telephone [facility] Infectious Disease [address] [phone] Lena Cortes NP 01/18/2025 Telephone [facility] Infectious Disease [address] [phone] Lena Cortes, INTELLIGENCE CLERK 01/10/2025 Refill [facility] Cardiology 800 [facility] [address] [place] [address] Pedro Kline MD Heart transplant recipient 01/03/2025 10:30 AM EDT - 01/03/2025 12:30 PM EDT Surgery [facility] Cardiac Manager Activities [address] [place] [address] Luisa Yang MD Coronary angiography [96421 (CPT )] 01/03/2025 10:17 AM EDT - 01/03/2025 4:56 PM EDT Hospital Encounter [facility] Cardiac Manager Activities [address] [place] [address] Luisa Yang MD Other cytomegaloviral diseases (Multi-HCC) (Primary Dx); Heart transplant recipient (Multi-HCC) Discharge Disposition: Home or self care 01/03/2025 Travel 01/02/2025 Orders Only [facility] Infectious Disease [address] [phone] Lena Cortes INTELLIGENCE CLERK 12/28/2024 11:30 AM EDT Office Visit [facility] Pulmonary [address] [phone] Daysi Fink MD Chronic cough (Primary Dx); Pulmonary sarcoidosis (Multi-HCC); 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); Cardiac sarcoidosis (HHS-HCC); Dyspnea and respiratory abnormality 12/28/2024 10:16 AM EDT - 12/28/2024 11:59 PM EDT Hospital Encounter [facility] Imaging [address] [place] [phone] Cytomegalovirus infection, unspecified cytomegaloviral infection type (Multi-HCC); Tracheal stenosis; Pulmonary sarcoidosis (Multi-HCC) Discharge Disposition: Home or self care 12/28/2024 Travel 12/26/2024 Orders Only [facility] Infectious Disease [address] [phone] Lena Cortes NP Cytomegalovirus (CMV) viremia (Multi-HCC) 12/20/2024 Results Follow-Up [facility] Infectious Disease [address] [phone] Lena Cortes NP 12/19/2024 11:40 AM EDT - 12/19/2024 11:59 PM EDT Hospital Encounter [facility] Radiology [address] [place] [phone] Other cytomegaloviral diseases (Multi-HCC); Heart transplant recipient (Multi-HCC) Discharge Disposition: Home or self care 12/19/2024 11:00 AM EDT Office Visit [facility] Cardiac Subspecialty [address] [phone] Bridger Hernandez MD Type 2 diabetes mellitus with other specified complication, unspecified whether senior care insulin use (Multi-HCC) (Primary Dx); Other cytomegaloviral diseases (Multi-HCC); Heart transplant recipient (Multi-HCC); Mixed hyperlipidemia ; Prostate cancer screening; Sarcoidosis 12/19/2024 7:36 AM EDT - 12/19/2024 11:39 AM EDT Hospital Encounter [facility] Cardiac Echo [address] [facility] [address] [place] [phone] Other cytomegaloviral diseases (Multi-HCC); Heart transplant recipient (Multi-HCC); Heart transplant rejection (Multi-HCC) Discharge Disposition: Home or self care 12/19/2024 Telephone [facility] Cardiac Subspecialty [address] [phone] Kailyn Hess Appointment; Follow-up 12/19/2024 Travel 12/14/2024 Orders Only [facility] Infectious Disease [address] [phone] Lena Cortes NP Heart transplant recipient (Multi-HCC) (Primary Dx); Other cytomegaloviral diseases (Multi-HCC) 12/13/2024 Refill [facility] Infectious Disease [address] [phone] Lena Cortes NP Other cytomegaloviral diseases (Multi-HCC) 12/13/2024 Refill [facility] Cardiac Subspecialty [address] [phone] Jose Angel Nunez NP Heart transplant recipient (Multi-HCC) 12/13/2024 Refill [facility] Cardiology [address] [facility] [address] [place] [phone] Izaiah Martinez MD Heart transplant recipient (Multi-HCC) 12/13/2024 Refill [facility]iology [address] [facility] [address] [place] [phone] Pedro Kline MD Heart transplant recipient (Multi-HCC) 12/13/2024 Refill [facility] Cardiac Subspecialty [address] [phone] Sharon Savage NP Heart transplant recipient (Multi-HCC) 12/02/2024 Telephone [facility] Patient Access 800 [place] [address] , Barrera-Chi 11/21/2024 Telephone [facility] Cardiac Subspecialty [address] [phone] Kailyn Hess Appointment 11/16/2024 Telephone [facility] Cardiac Subspecialty 8[address] [facility] 6th [place] [address] Kailyn Hess Appointment 11/15/2024 Refill [facility] Cardiology [address] [place] [address] Pedro Kline MD Heart transplant recipient (Multi-HCC) from Last 3 Months Immunizations Immunization Administration Dates Next Due COVID-19 Pfizer Monovalent 01/10/2021,12/14/2020 Comirnaty COVID-19 Vaccine 12 years + 02/05/2024 Hep B, adult 11/26/2023 Influenza, High-dose Seasona l, Quadrivalent, Preservative Free 01/12/2023 Influenza, trivalent, adjuvanted 65+ 12/16/2023 Pfizer COVID-19 Vaccine Biva lent Booster 12+ 02/25/2022 Pneumococcal Conjugate PCV 13 05/30/2021 Pneumococcal Conjugate Pcv 20 01/12/2023 RSV, bivalent, protein subun it RSVpreF, diluent reconstituted, 0.5 mL, PF 11/25/2023 Spikevax COVID-19 Vaccine Formula 12+ (Deferred: Not available from knitter operator - Per pharmacy vaccine is out of stock. MD Martins notified) Tdap 05/30/2021 Zoster, Recombinant 11/26/2023 Family History Medical History Relation Name Comments Diabetes Brother Emmanuel Avila Avila Cancer Father Dar Avila Alfaro Diabetes Father Dar Avila Alfaro Hypertension Father Dar Avila Alfaro Cancer Mother Lillie Avila Bender Diabetes Mother Lillie Avila Bender Diabetes Sister Mar a Stephanie Avila Avila Relation Name Status Comments Brother Emmanuel Avila Avila Alive Father Dar Avila Alfaro Alive Mother Lillie Avila Bender Alive Sister Mar a Stephanie Avila Avila Alive Social History Tobacco Use Types Packs/Day Years [...] Sign Reading Time Taken Comments Blood Pressure 129/83 02/02/2025 1:20 PM EDT Pulse 96 02/02/2025 1:20 PM EDT Temperature 36.7 C (98 F) 02/02/2025 1:20 PM EDT Respiratory Rate 28 01/03/2025 4:00 PM EDT Oxygen Saturation 99% 02/02/2025 1:20 PM EDT Inhaled Oxygen Concentration - - Weight 61.2 kg (135 lb) 02/02/2025 1:20 PM EDT Height 165.1 cm (5' 5 ) 02/02/2025 1:20 PM EDT Body Mass Index 22.47 02/02/2025 1:20 PM EDT Plan of Treatment Upcoming Encounters Date Type Department Care Team (Late st Contact Info) Description 02/22/2025 2:00 PM EST Office Visit [facility] Neurology [address] [place] [phone] Percy Kapoor MD [address] [address] 02/28/2025 6:50 AM EST Hospital Encounter [facility] Main OR [address] [place] [phone] Loren Hall MD [address] [place] [phone] Cytomegalovirus infection, unspecified cytomegaloviral infection type 02/28/2025 8:50 AM EST - 02/28/2025 10:20 AM EST Surgery [facility] Main OR [address] [place] [phone] Loren Hall MD [address] [place] [address] Bronchoscopy with dilation [18083 (CPT )] 03/20/2025 12:00 PM EST Office Visit [facility] Cardiac Subspecialty 860 [facility] [address] [place] [phone] Charlie Barry MD [address] [place] [address] 05/15/2025 1:00 PM EST Office Visit [facility] Dermatology 260 [place] [address] Nelida Ayala MD [address] [place] [address] 07/12/2025 10:30 AM EDT Appointment [facility] Pulmonary Function Lab [address] [facility] [address] 5th Floor Room [address] [place] [address] 07/12/2025 11:30 AM EDT Office Visit [facility] Pulmonary [address] [facility] [address] [place] [phone] Daysi Fink MD [address] [facility] [address] [place] [address] Scheduled Procedures Name Priority Associated Diagnoses Date/Ti me Bronchoscopy Tracheal stenosis 02/28/2025 8:50 AM EST Health Maintenance Due Date Last Done Comments [...] history exists High Risk LDL 12/19/2025 12/19/2024, 080 07/2024, 10/03/2024, Additional history exists Lipid Panel [...] on patient's age to complete this topic Goals Goal Patient Goal Type Associated Problems Recent Progress Patient-Stated? 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 ICD Chest [employer] Graft [address] 10x30 - [id number] Implanted:Qty: 1 on 12/22/2023 at [facility] Graft Right: Axilla GETINGE/MAQUET C[employer]IOVASCULAR 09/03/2028 [id number] / [id number] / Impella- 024 Implanted:12/05 (Quantity not on [...] with other specified complication, unspecified whether senior care insulin use (Multi-HCC) PSA TOTAL, SCREEN STAT [...] with other specified complication, unspecified whether senior care insulin use (Multi-HCC) DOBUTAMINE STRESS ECHO (37152) Routine 12/19/2024 9:38 AM EDT Heart transplant recipient (Multi-HCC) Heart transplant rejection (Multi-HCC) HCV RNA, QUANTITATIVE, PCR (MONITORING) Routine 01/26/2024 10:30 AM EDT ALBUMIN, URINE, RANDOM (INCLUDING CREATININE) Routine 11/26/2023 1:50 PM EDT from Last 3 Months or Most Recently Relevant to Health Maintenance Results * CORONARY ANGIOGRAPHY, ENDOMYOCARDIAL BIOPSY (01/03/2025 12:45 PM EDT) 01/03/2025 12:1 1 PM EDT Narrative [facility] HEMO MERGE HEMO - 01/03/2025 5:21 PM EDT [facility] Adult Catheterization Lab [address] [place] [address] Right and Left Diagnostic Cardiac Catheterization and [...] Procedure Note Luisa Yang MD - 01/03/2025 [facility] Adult Catheterization Lab [address] [place] [address] Right and Left Diagnostic Cardiac Catheterization and [...] + + + RA pressure a/v 0 (-) (m) + + + + RV pressure s/d, 20/-3, -1 ed + + + + PA pressure s/d 23/09 (11) (m) + + + + PA wedge a/v (m) 66 (2) + + + + Arterial pressure [...] CV CARDIAC CATH PROCEDURES Maral l Result [facility] HEMO MERGE HEMO * Tissue Pathology (01/03/2025 11:20 AM EDT) Case Report Surgical Pathology Case: [id number] Authorizing Provider: Jose Angel Nunez NP Collected: 01/03/2025 1120 Ordering Location: [facility] Received: 01/03/2025 1320 Cardiac Manager Activities Pathologist: Ramos Kay MD Specimen: Heart, R ventricle Bx post Tx 01/04/2025 4:36 PM EDT [facility] ANATOMIC PATHOLOGY LAB Final Diagnosis A. 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 - There is no evidence of antibody mediated rejection, pAMR 0. Note: There are adequate fragments of myocardium for evaluation. Immunohistochemical stain for C4d and CD68 are negative. Trichrome stain shows subendocardial fibrosis. Cardiac transplant team (Jose Angel Nunez) notified via tiger text at 11:15AM Controls show appropriate reactivity. 01/04/2025 4:36 PM EDT [facility] ANATOMIC PATHOLOGY LAB at 1636 EDT [...] toto in A1. Grossed by DANY Wong PA([facility])RICARDO on 01/03/25 at 1:26 PM. 01/04/2025 4:36 PM EDT [facility] ANATOMIC PATHOLOGY LAB Disclaimer The interpretation [...] appropriate reactivity. 01/04/2025 4:36 PM EDT [facility] ANATOMIC PATHOLOGY LAB Tissue Heart structure / Unknown 01/03/2025 11:20 AM EDT 01/03/2025 1:20 PM EDT Jose Angel Nunez INTELLIGENCE CLERK LAB PATHOLOGY ORDERABLES Final Result [facility] ANATOMIC PATHOLOGY LAB [address] [place] [address], * (ABNORMAL) CBC w/ Differential (01/03/2025 11:10 AM EDT) WBC 2.7(L) 4.0 - 11.0 K/uL 01/03/2025 11:41 AM EDT [facility] RBC 3.82(L) 4.20 - 5.90 M/uL 01/03/2025 11:41 AM EDT [facility] Hemoglobin 11.3(L) 13.0 - 17.5 g/dL 01/03/2025 11:41 AM EDT [facility] Hematocrit 33.5(L) 37.0 - 53.0 % 01/03/2025 11:41 AM EDT [facility] MCV 87.7 80.0 - 100.0 fL 01/03/2025 11:41 AM EDT [facility] MCH 29.6 26.0 - 34.0 pg 01/03/2025 11:[facility] MCHC 33.7 31.0 - 37.0 g/dL 01/03/2025 11:41 AM EDT [facility] RDW-CV 12.8 11.5 - 14.5 % 01/03/2025 11:[facility] RDW-SD 40.4 35.0 - 51.0 fL 01/03/2025 11:41 AM EDT [facility] Platelets 122(L) 150 - 400 K/uL 01/03/2025 11:[facility] MPV 9.7 9.1 - 12.4 fL 01/03/2025 11:41 AM EDT [facility] Neutrophil % 65.5 % 01/03/2025 11:[facility] Lymphocyte % 20.0 % 01/03/2025 11:41 [facility] Monocytes % 5.6 % 01/03/2025 11:41 AM EDT [facility] Eosinophils % 5.2 % 01/03/2025 11:41 AM EDT [facility] Basophils % 0.4 % 01/03/2025 11:41 [facility] Immature Granulocytes % 3.3 % 01/03/2025 11:41 AM EDT [facility] NRBC % 0.0 0.0 - 0.0 % 01/03/2025 11:41 AM EDT [facility] Neutrophils Absolute 1.77 1.50 - 7.95 K/uL 01/03/2025 11:41 AM EDT [facility] Lymphocytes Absolute 0.54(L) 0.70 - 4.00 K/uL 01/03/2025 11:41 AM EDT [facility] Monocytes Absolute 0.15(L) 0.38 - 0.83 K/uL 01/03/2025 11:41 AM EDT [facility] Eosinophils Absolute 0.14 0.00 - 0.50 K/uL 01/03/2025 11:41 AM EDT [facility] Basophils Absolute 0.01 0.00 - 0.22 K/uL 01/03/2025 11:41 AM EDT [facility] Immature Granulocytes Absolute 0.09 0.00 - 0.10 K/uL 01/03/2025 11:41 AM EDT [facility] NRBC Absolute 0.00 0.00 - 2.00 K/uL 01/03/2025 11:41 AM EDT [facility] Blood Venous blood specimen / Unknown Venipuncture / Unknown 01/03/2025 11:10 AM EDT 01/03/2025 11:34 AM EDT us Zeina Maradiaga MD LAB BLOOD ORDERABLES Final Result [facility] [address] [place] [address], * Tacrolimus level (01/03/2025 11:10 AM EDT) Only the most recent of2 resultswithin the time period is included. Pathologist [facility] Tacrolimus, LC-MS/MS 7.5 3.0 - 20.0 ng/mL 01/03/2025 3:15 PM EDT [facility] Comment:Performed by LC-MS/M S. Reference intervals are based on trough collection. Optimal therapeutic ranges depend on time post-transplant, dosing regimen, organ type, and concomitant immunosuppression therapy. Results should be interpreted in conjunction with physical signs/symptoms of rejection/toxicity. This test was developed and its performance characteristics determined by [facility]. It has not been cleared or approved by the FDA. The laboratory is regulated under CLIA as qualified to perform high-complexity testing. This test is used for clinical purposes. It should not be regarded as investigational or for research. Time of last dose 025 3:15 PM EDT [facility] Date of last dose 3:15 PM EDT [facility] Blood Venous blood specimen / Unknown Venipuncture / Unknown 01/03/2025 11:10 AM EDT 01/03/2025 11:34 AM EDT Zeina Maradiaga MD LAB BLOOD ORDERABLES Final Result Performing Organization Address City/[facility]/ZIP Co de Phone Number [facility] [address] [place] [address], * (ABNORMAL) CMV Quant DNA, RT-PCR, BLOOD (01/03/2025 11:10 AM EDT) Only the most recent of3 resultswithin the time period is included. Pathologist [facility] CMV DNA Viral Load 130(H) Not Detected IU/mL [facility] 2 01/03/2025 4:19 PM EDT [facility] Comment:DETECTED CMV DNA Viral Load, log 2.11(H) Not Detected log IU/mL 01/03/2025 4:19 PM EDT [facility] CMV DNA Viral Load, Interp Detected( A) Not Detected [facility] 01/03/2025 4:19 PM EDT [facility] Blood Venous blood specimen / Unknown Venipuncture / Unknown 01/03/2025 11:10 AM EDT 01/03/2025 11:34 AM EDT Narrative [facility] - 01/03/2025 4:19 PM EDT This test was performed using the [employer] Al[employer] m CMV DNA assay, performed on the [employer] AL[employer] m instrument Lena Cortes INTELLIGENCE CLERK LAB BLOOD ORDERABLES Fin al Result Performing Organization Address City/[facility]/ZIP Co de Phone Number [facility] [address] [place] [address], * Protime/INR (01/03/2025 11:10 AM EDT) Pathologist [facility] Protime 12.0 9.7 - 14.0 seconds 01/03/2025 11:55 AM EDT [facility] INR 1.04 See Comment 01/03/2025 11:55 AM EDT [facility] Comment: NORMAL PATIENTS NOT ON ANTICOAGULANTS: INR: 0.9-1.3 RECOMMENDED INR WITH WARFARIN/COUMADIN THERAPY: INR: 2.00-3.00 Deep vein thrombosis Atrial Fibrillation Tissue Prosthetic Valve Stroke Prevention INR:2.50-3.50 Mechanical Prosthetic Valve and Recurrent Systemic Embolism Blood Venous blood specimen / Unknown Venipuncture / Unknown 01/03/2025 11:10 AM EDT 01/03/2025 11:34 AM EDT Zeina Maradiaga MD LAB BLOOD ORDERABLES Final Result Performing Organization Address City/[facility] Co de Phone Number [facility] [address] [place] [address], * Magnesium (01/03/2025 11:10 AM EDT) Only the most recent of2 resultswithin the time period is included. Magnesium 1.7 1.6 - 2.6 mg/dL 01/03/2025 12:13 PM EDT [facility] Blood Venous blood specimen / Unknown Venipuncture / Unknown 01/03/2025 11:10 AM EDT 01/03/2025 11:33 AM EDT Zeina Maradiaga MD LAB BLOOD ORDERABLES Final Result Performing Organization Address [facility] de Phone Number [facility] [address] [place] [address], * (ABNORMAL) Comprehensive metabolic panel (01/03/2025 11:10 AM EDT) Only the most recent of2 resultswithin the time period is included. Sodium 145 135 - 146 mmol/L 01/03/2025 12:13 PM EDT [facility] Potassium 4.4 3.6 - 5.2 mmol/L 01/03/2025 12:13 PM EDT [facility] Comment:Specimen hemolyzed r esult may be falsely increased up to 1.0 mmol/L. Chloride 106 98 - 110 mmol/L 01/03/2025 12:13 PM EDT [facility] CO2 (Bicarbonate) 24 20 - 32 mmol/L 01/03/2025 12:13 PM EDT [facility] Anion Gap 15(H) 3 - 14 mmol/L 01/03/2025 12:13 PM EDT [facility] BUN 17 6 - 24 mg/dL 01/03/2025 12:13 PM EDT [facility] Creatinine 0.98 0.55 - 1.30 mg/dL 01/03/2025 12:13 PM EDT [facility] eGFRcr 83 >=60 mL/min/1.7 3m*2 01/03/2025 12:13 PM EDT [facility] Comment:Calculated using CKD -EPI 2020 creatinine equation. Glucose 133(H) 70 - 99 mg/dL 01/03/2025 12:13 PM EDT [facility] Fasting? Yes [facility] [place] [facility] 01/03/2025 12:13 PM EDT [facility] Calcium 9.9 8.5 - 10.5 mg/dL 01/03/2025 12:13 PM EDT [facility] AST 24 6 - 42 U/L 01/03/2025 12:13 PM EDT [facility] ALT 9 0 - 55 U/L 01/03/2025 12:13 PM EDT [facility] Alkaline phosphatase 54 30 - 130 U/L 01/03/2025 12:13 PM EDT [facility] Protein, total 7.0 6.0 - 8.4 g/dL 01/03/2025 12:13 PM EDT [facility] Albumin 4.6 3.2 - 5.0 g/dL 01/03/2025 12:13 PM EDT [facility] Bilirubin, total 0.5 0.2 - 1.2 mg/dL 01/03/2025 12:13 PM EDT [facility] Blood Venous blood specimen / Unknown Venipuncture / Unknown 01/03/2025 11:10 AM EDT 01/03/2025 11:33 AM EDT us Zeina Maradiaga MD LAB BLOOD ORDERABLES Final Result [facility] [address] [place] [address], [place] * CT HIGH RESOLUTION CHEST WO [...] GENDER: Male ORD PHYS: DAYSI FINK LOCATION: [facility] 12/28/2024 10:46 AM EDT [id number] (CT HIGH RESOLUTION CHEST WO CONTRAST) [id number] Provided History: Pulmonary sarcoidosis and tracheal stenosis [...] 69 years GENDER: Male ORD PHYS: DAYSI CouchRubens FINK LOCATION: [facility] 12/28/2024 10:46 AM EDT [id number] (CT HIGH RESOLUTION CHEST WO CONTRAST) [id number] Provided History: Pulmonary sarcoidosis and tracheal stenosis [...] 12/29/2024 9:08 AM EDT Daysi Fink MD IM CT PROCEDURES Final [...] GENDER: Male ORD PHYS: BRIDGER DAVID LOCATION: [facility] 12/19/2024 12:44 PM EDT IMG36 (XR CHEST 2 VIEWS) [id number] REASON FOR STUDY: cardiac transplantation TECHNIQUE: PA and lateral views of the chest Comparison: 10/03/2024 FINDINGS: The heart and sternal wires are unchanged. There is no pneumothorax or congestion or focal consolidation or pleural effusion. No new mediastinal widening. No acute bony changes. Hamilton overlie the upper lateral right hemithorax as previously. Procedure Note Denisha Mckeon MD - 12/19/2024 NAME: MATTHEW AVILA : 1955 AGE: 69 years GENDER: Male ORD PHYS: BRIDGER DAVID LOCATION: [facility] 12/19/2024 12:44 PM EDT IMG36 (XR CHEST 2 VIEWS) [id number] REASON FOR STUDY: cardiac transplantation TECHNIQUE: PA [...] RADIOLOGIST: DENISHA MCKEON 12/19/2024 1:16 PM EDT us Bridger Hernandez MD IMG XR PROCEDURES Final Result * (ABNORMAL) Cystatin C with eGFR (12/19/2024 12:15 PM EDT) Pathologist [facility] Cystatin C 1.20(H) 0.72 - 1.16 mg/L [facility] 1 eGFRcys 59(L) >59 mL/min/1.73 [facility] 1 Blood Venous blood specimen / Unknown 12/19/2024 12:15 PM EDT 12/19/2024 Narrative [facility] - 12/20/2024 6:45 AM EDT Performed at: - [address] [id number] Knotting Machine Operator: Iram Zambrano MD, Phone: [phone] us Bridger Hernandez MD LAB BLOOD ORDERABLES Final Resu lt Performing Organization Address City/State/[facility] Co de Phone Number [facility] [address] [place] [address], [facility] * PSA Total, Screen (Male patients only) (12/19/2024 12:15 PM EDT) Pathologist [facility] PSA TOTAL 2.7 0.0 - 4.0 ng/mL [facility] 1 Comment: Carlton ECLIA methodology. According to the [place] [employer], Serum PSA should decrease and [...] 12/20/2024 7:45 AM EDT Performed at: - [address] [id number] Knotting Machine Operator: Iram Zambrano MD, Phone: [phone] us Bridger Hernandez MD LAB BLOOD ORDERABLES Final Resu lt [facility] [address] [place] [address], [facility] 1 * (ABNORMAL) CBC and differential (12/19/2024 12:15 PM EDT) WBC 3.2(L) 4.0 - 11.0 K/uL [facility] [...] - 12/19/2024 3:15 PM EDT Performed at: [address] [place], [place] [id number] Knotting Machine Operator: Jim Henning [facility], Phone: [phone] Bridger Hernandez MD LAB BLOOD ORDERABLES Final Resu lt Performing Organization Address [facility] de Phone Number [facility] [address] [place] [address], [facility] 1 * Uric Acid (12/19/2024 12:15 PM EDT) Uric Acid 5.2 2.6 - 8.0 mg/dL [facility] 1 Comment: Although the reference interval for men extends up to 8.0 mg/dL, patients with gout may benefit from uric acid levels <6.0 mg/dL. Blood Venous blood specimen / Unknown 12/19/2024 12:15 PM EDT 12/19/2024 Narrative [facility] - 12/19/2024 3:15 PM EDT Performed at: [address] [place] [id number] Knotting Machine Operator: Jim Henning [facility], Phone: [phone] Bridger Hernandez MD LAB BLOOD ORDERABLES Final Resu lt Performing Organization Address [facility] Co de Phone Number [facility] [address] [place] [address], [facility] * Phosphorus (12/19/2024 12:15 PM EDT) Phosphorus 3.9 2.4 - 4.9 mg/dL [facility] 1 Blood Venous blood specimen / Unknown 12/19/2024 12:15 PM EDT 12/19/2024 Narrative [facility] - 12/19/2024 3:15 PM EDT Performed at: 01 - [address] [id number] Knotting Machine Operator: Jim Henning [facility], Phone: [phone] us Bridger Hernandez MD LAB BLOOD ORDERABLES Final Resu lt Performing Organization Address City/[facility]/ZIP Co de Phone Number [facility] [address] [place] [address], [facility] * (ABNORMAL) Lactate dehydrogenase (12/19/2024 12:15 PM EDT) LDH 369(H) 110 - 250 U/L [facility] 1 Blood Venous blood specimen / Unknown 12/19/2024 12:15 PM EDT 12/19/2024 Narrative [facility] - 12/19/2024 3:15 PM EDT Performed at: [address] [place] [id number] Knotting Machine Operator: Jim Henning [facility], Phone: [phone] us Bridger Hernandez MD LAB BLOOD ORDERABLES Final Resu lt Performing Organization Address [facility] Co de Phone Number [facility] [address] [place] [address], [facility] 1 * (ABNORMAL) Hemoglobin A1c (12/19/2024 12:15 PM EDT) HgbA1C 6.5(H) 4.8 - 5.6 % [facility] 1 Comment: Prediabetes: 5.7 - 6.4 Diabetes: >6.4 Glycemic control for adults with diabetes: <7.0 Blood Venous blood specimen / Unknown 12/19/2024 12:15 PM EDT 12/19/2024 Narrative [facility] - 12/20/2024 4:05 AM EDT Performed at: [address] [id number] Knotting Machine Operator: Iram Zambrano MD, Phone: [phone] us Bridger Hernandez MD LAB BLOOD ORDERABLES Final Resu lt [facility] [address] [place] [address], [facility] * CK (aka CPK) (12/19/2024 12:15 PM EDT) Pathologist [facility] CK Total 41 41 - 331 U/L [facility] 1 Blood Venous blood specimen / Unknown 12/19/2024 12:15 PM EDT 12/19/2024 Narrative [facility] - 12/20/2024 7:45 AM EDT Performed at: [address] [place] [id number] Knotting Machine Operator: Iram Zambrano MD, Phone: [phone] Bridger Hernandez MD LAB BLOOD ORDERABLES Final Resu lt Performing Organization Address City/[facility]/ZIP Co de Phone Number [facility] [address] [place] [address], [facility] 1 * Hepatic function panel (12/19/2024 12:15 PM EDT) Pathologist [facility] Bilirubin, Direct 0.2 0.0 - 0.5 mg/dL [facility] 1 Blood Venous blood specimen / Unknown 12/19/2024 12:15 PM EDT 12/19/2024 Narrative [facility] - 12/19/2024 3:15 PM EDT Performed at: [address] [place] [id number] Knotting Machine Operator: Jim Henning [facility], Phone: [phone] Bridger Hernandez MD LAB BLOOD ORDERABLES Final Resu lt [facility] [address] [place] [address], [facility] * (ABNORMAL) Lipid panel (12/19/2024 12:15 PM EDT) Cholesterol 146 100 - 199 mg/dL [facility] [...] AM EDT Performed at: 01 - [facility] [address] [id number] Knotting Machine Operator: Iram Zambrano MD, Phone: [phone] us Bridger Hernandez MD LAB BLOOD ORDERABLES Final Resu lt [facility] [address] [place] [address], [facility] * ECG 12 lead [[facility]: Epiphany] Normal (12/19/2024 10:45 AM EDT) 12/19/2024 10:4 5 AM EDT Narrative [facility] STRESS/ECG EPIPHANY CARDIOSERVER - 12/19/2024 5:05 PM EDT [facility] Test Date: 2024-12-19 Pat Name: MATTHEW AVILA Department: [facility] Room: Gender: Male Reverberatory Skimmer: : 1955 Requested By: BRIDGER HERNANDEZ Order Number: [id number] Reading MD: Lacho Bauer Measurements Intervals [place]o Rate: 91 P: 59 SD: 145 QRS: 40 QRSD: 77 T: 24 QT: 339 QTc: 417 Interpretive Statements Sinus rhythm Probable anteroseptal infarct, old Compared to ECG 12/31/2023 07:37:42 Sinus rhythm now more clearly present Electronically Signed On 12-19-2024 17:05:32 EDT by Lacho Bauer us Bridger Hernandez MD ECG ORDERABLES Final Result [facility] STRESS/ECG EPIPHANY CARDIOSERVER * DOBUTAMINE STRESS ECHO (21754) (12/19/2024 9:38 AM EDT) 12/19/2024 8:40 AM EDT Narrative [facility] PACS/REPORTING KRZYSZTOF ISCV - 12/19/2024 11:15 AM EDT [facility] [address] [place] [address] Stress Echocardiogram Name: MATTHEW TORO Study Date: 12/19/2024 08:40 AM : 1955 Gender: Male Age: 69 yrs Ethnicity: OTHER Patient Location: [facility] Referring Physician: JOSE ANGEL NUNEZ Performed By: Osiel Michelle Ordering Physician: JOSE ANGEL NUNEZ Reason For Study: cardiac transplantation Height: 68 in Weight: 135 lb BSA: 1.7 m2 BP: 120/58 mmHg CPT/Quality/Location Stress Echo (60533). Stress Echo interp & report (09967). Supply - dobutamine. Location performed: Department. The [...] Russ MD - 12/19/2024 [facility] [address] [place] [address] StressEchocardiogram Name: MATTHEW TORO Study Date: 508:40 AM : 1955 Gender: Male Age: 69 yrs Ethnicity: OTHER Patient Location: [facility] Referring Physician: JOSE ANGEL NUNEZ Performed By: Osiel Michelle Ordering Physician: JOSE ANGEL NUNEZ Reason For Study: cardiac transplantation Height: 68 in Weight: 135 lb BSA: 1.7 m2 BP:120/58 mmHg CPT/Quality/Location Stress Echo (33210). Stress Echo interp & report (29657). Supply -dobutamine. Location performed: Department. The quality [...] Nunez NP CV ECHO PROCEDURES Final Result [facility] PACS/REPORTING KRZYSZTOF ISCV * Hepatitis C Virus RNA, Quantitative, RT-PCR (01/26/2024 10:30 AM EDT) HCV [facility] by [facility] 01/27/2024 2:18 PM EDT [facility] Comment:Not Detected HCV RNA Viral Load, log [facility] 01/27/2024 2:18 PM EDT [facility] Comment:Not Detected HCV RNA Viral Load, Interp Not Detected Not Detected [facility] 01/27/2024 2:18 PM EDT [facility] Blood Venous blood specimen / Unknown Venipuncture / Unknown 01/26/2024 10:30 AM EDT 01/26/2024 11:13 AM EDT Narrative [facility] - 01/27/2024 2:18 PM EDT This test was performed using the [employer] m HCV assay, performed on the [employer] instrument. The lower limit of quantification is 12 IU/mL. Chi Barton MD LAB BLOOD ORDERABLES Final Resu lt Performing Organization Address [facility] de Phone Number [facility] [address] [place] [address], * Albumin, Urine, Random (Microalbumin Random, Including Creatinine) (11/26/2023 1:50 PM EDT) Albumin, urine (INT/EXT) <1.2 mg/dL 11/26/2023 2:44 PM EDT [facility] Creatinine, urine, random (INT/EXT) 47.40 24.00 - 392.00 mg/dL 11/26/2023 2:44 PM EDT [facility] Albumin/Creatini ne ratio 11/26/2023 2:44 PM EDT [facility] Comment:Unable to calculate due to below or above Analytical Measurement Range. Urine Urine specimen / Unknown Non-blood Collection / Unknown 11/26/2023 1:50 PM EDT 11/26/2023 1:50 PM EDT Pedro Kline MD LAB URINE ORDERABLES Maral l Result Performing Organization Address [facility] Co de Phone Number [facility] [address] [place] [address], from Last 3 Months or Most Recently Relevant to Health Maintenance Additional Health Concerns Active Problems Noted Date Diagnosed Date Autogenerated Problem 02/09/2025 Insurance MEDICARE PART A AND B [facility] NET [facility] MEDICARE PART A AND B HEALTH SAFETY NET Advance Directives Documents on File Type Date Recorded Patient Truss Driver Helper Expl anation Advance Directives and Living Will 11/25/2023 Lloyd Ahmadi Health Care Proxy * Full Code (Latest Code Status on File) Date Activated Date Inactivated Comments 11/24/2023 12:16 AM 01/20/2024 1:17 PM Healthcare Agents on File Name Relationship Healthcare Agent Relationship Communication Aleisha Ahmadi Spouse Health Care Agent [email or web address] Lloyd Mandel Son First Alte rnate Health Care Agent Care Teams Employee Service Officer Relationship Specialty Start Date End Date Name, MD Yoandy [address] [place] [address] PCP - General Hot Box Spotter 11/12/23 Glenn Herman MD [address] [place] [address] Referring Physician Cardiology 11/12/23 Edward Handley CPhT [facility] 12/31/23 Jennie Michelle, PharmD [address] [place] [address] Pharmacist Pharmacy 01/27/24 Bridger Hernandez MD [address] [place] [address] Attending Physician Cardiology 12/19/24
--- OUTSIDE RECORDS SUMMARY | 2025-02-10 12:39 | XMS_ITS | Clinical Summary ---
Author Organization [employer] Address [address] [facility] [address] [place] [address] Care Team Providers Care Waste Water Operator Name Role Phone Name, Yoandy LUGO Primary Care Provider [phone] Allergies Active Allergy Reactions Criticality Noted Date [...] bedtime. 4 Active Sharps Container (BD Sharps Chief Engineer Production) [facility] For disposal of needles and lancets 4 Active sulfamethoxazo le-trimethopri m (Bactrim DS) 800-160 MG tablet Take 1 tablet by mouth Once per day. 4 Active HumaLOG KWIKPEN 100 UNIT/ML injection Administer subcutaneous 5 units with breakfast, 6 units with lunch and dinner 4 Active levETIRAcetam (Keppra) 750 MG tablet Take [...] by mouth before breakfast. 4 01/13/20 25 calcium carbonate (Tums) 500 MG chewable tablet Chew 1 tablet (500 mg) 2 times daily. 4 02/05/20 25 cholecalcifero l (Vitamin D-3) 25 MCG (1000 UT) capsule Take 1 capsule (25 mcg) by mouth Once per day. 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 S/p multiple dilations in the past. Able to pass a 7.0 ETT, but no larger. Decreased functional mobility and endurance 11/06 Non-restorable tooth 11/19/2023 History of ME (myocardial infarction) 10/20/2023 Memory problem 10/20/2023 Shortness [...] 's report Asked patient to call his Level Glass Vial Filler regarding his increased weight/swelling for further recommendations. Dysphagia 02/08/2023 Positive colorectal cancer screening using Colog uard test 02/04/2023 Overview (11/03/2023): Negative Colonoscopy 06/2023: urgical Pathology Exam - Order: [id number] Component 4 mo ago Case Report Surgicals Case: [id number] Authorizing Provider: Donny Encarnacion Collected: 2023 0843 MD Eugene Ordering Location: [facility] Received: 2023 1011 Pathologist: [...] IHC, or special stains are performed at [facility], [place] [address]. Resulting Agency [facility] [...] were answered. Coronary artery disease invo lving [place] coronary artery of [place] heart without angina pectoris 11/14/2022 Overview (11/02/2023): Last Assessment & Plan: - nonobstructive disease - continue medical therapy with aspirin, statin, BB - denies angina Stridor 11/13/2022 Overview (11/02/2023): Last Assessment & Plan: Improved after last dilation in April 2023. Mild stridor noted today in clinic Discussed with his primary alarm signal operator Dr. Sanches and will work to [...] Ventricular tachycardia, unspecified (CMS/HCC) 0 04/06/2022 [facility] [place] [facility] (current) drug therapy 3 Type 2 diabetes [...] upgraded from dual-chamber to biventricular device at [facility] 03/2022. Follows at [facility] cardi Systolic dysfunction 03/13/2022 History of bradycardia 03/13/2022 Family history of prostate cancer 03/13/2022 Complete heart block (CMS/HCC) 04/06/2020 Overview (11/02/2023): Added automatically from request for surgery [id number] Last Assessment & Plan: History of biventricular pacemaker that was upgraded to WILDLIFE MANAGEMENT PROFESSOR defibrillator in September. Device interrogated today with [...] call cardiology office as well. Aspiration pneumonia ([facility]) 02/08/2023 02/05/2024 Hyperlactatemia 02/08/2023 11/03/2023 [...] starting statin -No need for ischemic evaluation USP (current) use of o ral hypoglycemic drugs [...] Telephone [facility] [address] [place] [address] [place] oct recalls from Last 3 Months [...] others, in a hotel, in a senior living, living outside on the street, on a [...] Visit [facility] [address] [place] [address] Name, MD Yoandy [address] [place] [address] Health Maintenance Due Date Last Done Comments [...] complication, without long-term current use of insulin ([facility]) ALBUMIN, RANDOM URINE W/CREATININE Routine 04/14/2024 11:04 AM EST Type 2 diabetes mellitus with other circulatory complication, without long-term current use of insulin ([facility]) LIPID PANEL, STANDARD Routine 06/27/2022 9:53 AM EDT from Last 3 Months or Most Recently Relevant to Health Maintenance Results * Glucose, Whole Blood (01/27/2025 3:15 PM EDT) Only the most recent of2 resultswithin the time period is included. Glucose, Whole Blood 106 60 - 115 mg/dL [facility] Comment:METER #: [id number] 0Testing performed in the Endocrinology Department [address] , [address], [facility]. 01/27/2025 3:15 PM EDT 01/27/2025 3:23 PM EDT us Generic External Data Provider LAB BLOOD ORDERAB LES Final Result Performing Organization Address City/State/[facility] Co de Phone Number [facility] [address] [place] [phone] * Gross and Microscopic Level 3 (01/19/2025 10:42 AM EDT) 01/19/2025 10:4 2 AM EDT 01/20/2025 9:10 AM EDT Narrative [facility] - 01/23/2025 2:18 PM EDT ----- ------- Name: Matthew Toro Age/Sex: 69/M : 1955 Unit#: [id number] Attend Dr: Tamiko CeballosM Re01/19/25 Status: DEP REF Location: LNP Disch: ----- ------- SPEC : [id number] RECD: 01/20/25 STATUS: DON PHAN NUM: [id number] TIM: 01/19/25 [facility] DR: Tamiko Ceballos DPM ENTERED: 01/20/25 SP [...] developed and their performance characteristics determined by [facility]. They have not been cleared or approved by the U.S. Food and Drug Administration (FDA). However, the FDA has determined that such clearance or approval is not necessary. This laboratory is certified under the Clinical Laboratory Improvement Amendments of 1988 (CLIA) as qualified to perform high complexity clinical laboratory testing. Copies To: Yoandy Tillman MD [address] [address] CONTINUED ON NEXT PAGE ----- ------- Name: Matthew Toro Age/Sex: 69/M : 1955 Unit#: [id number] Attend Dr: Tamiko Ceballos DPM Re01/19/25 Status: DEP [facility] Disch: ----- ------- SPEC : [id number] RECD: 01/20/25 STATUS: DON HUGHESAdonay NUM: [id number] TIM: 01/19/25 [facility] DR: Tamiko Ceballos DPM ENTERED: 01/20/25 SP TYPE: Surgical OTHR DR: Yoandy Tillman MD ORDERED: Gross Micro L3 Copies To: (Continued) Tamiko Ceballos DPM [facility] [place] [address] [email or web address] ----- ------- Signed (signature on file) Shruti Jean 01/23/25 1418 ----- ------- END OF REPORT Generic External Data Provider LAB CYTOLOGY DONNIE RABGABRIELA Final Result Performing Organization Address [facility] Co de Phone Number [facility] [address] [place] [phone] * POCT HGB A1C (07/27/2024 10:59 AM EDT) Hemoglobin A1C 5.7 4.0 - 6.0 % QC Media Lot # [id number] Lot# Expiration Date Blood 07/27/2024 10:5 9 AM EDT Yoandy Tillman MD POINT OF CARE TEST ENTER/EDIT OR DERABLES Final Result * Albumin, Random Urine W/Creatinine (04/14/2024 11:04 AM EST) Creatinine, Urine 109.08 mg/dL [facility] Microalbumin Urine 6.0 mg/L [facility] Microalbum Creatinine Ratio Ur 5.5 <30 ug/mg cr [facility] Comment:Albumin/Creatinine R atio Reference Ranges: Normal: < 30 ug/mg creatinine Microalbuminuria: 30 - 300 ug/mg creatinineClinical Albuminuria: > 300 ug/mg creatinine Urine (Urine, Random) 04/14/2024 11:04 AM EST 04/14/2024 1:04 PM EST us Yoandy Tillman MD LAB URINE ORDERABLES Final Resul t Performing Organization Address [facility] Co de Phone Number [facility] [address] [place] [phone] * Lipid Panel, Standard (06/27/2022 9:53 AM EDT) Triglycerides 84 mg/dL [facility] Comment:Desirable Triglyceri de: less than 150 mg/dLBorderline High Triglyceride 150-199 mg/dLHigh Triglyceride: 200-499 mg/dLVery High Triglyceride: greater than or equal to 5OO mg/dL Cholesterol 154 mg/dL [facility] Comment:Desirable Cholestero l: less than 200 mg/dLBorderline High Cholesterol: 200-239 mg/dLHigh Cholesterol: greater than 239 mg/dL LDL Cholesterol Calculated 104 mg/dl [facility] Comment:Desirable LDL: less than 100 mg/dLNear Optimal/Above Optimal LDL: 110- 129 mg/dLBorderline High LDL: 130-159 mg/dLHigh LDL: 160-189 mg/dLVery High LDL: greater than or equal to 190 mg/dL HDL Cholesterol 34 mg/dL [facility] Comment:Desirable HDL: great er than 40 mg/dL Note: This HDL assay may give artificially low results in patients with liver disease. 06/27/2022 9:53 AM EDT 06/27/2022 9:53 AM EDT [facility] External Provider LAB BLO OD ORDERABLES Final Result [facility] [address] [place] [phone] from Last 3 Months or Most Recently Relevant to Health Maintenance Insurance MEDICARE [facility] STANDARD [facility] MEDEX MEDICARE SUPPLEMENT Care Teams Waste Water Operator Relationship Specialty Start Date End Date Name, MD Yoandy [address] [place] [address] PCP - General Internal Medicine 10/19/23 [facility] 01/19/24
--- OUTSIDE RECORDS SUMMARY | 2025-02-10 12:39 | XMS_ITS | Encounter Summary ---
Author Organization [facility] Address [address] [facility] [address] [place] [address] Care Team Providers Care Tower Attendant Name Role Phone Glenn Herman MD Unavailable [phone] Yoandy Tillman MD Primary Care Provider [phone] Edward Handley animated cartoons painter Unavailable Unavailable Jennie Michelle PharmD Unavailable Juan Hutchinson MD Unavailable [phone] Reason for Visit * Reason Comments Med Refill Encounter Details Date Type Department Care Team (Late st Contact Info) Description 02/08/2025 Refill [facility] Infectious Disease [address] [facility] 3rd [place] [address] Lena Cortes, RESPIRATORY MANAGER [address] [place] [address] Cytomegalovirus (CMV) viremia Social History Tobacco Use Types Packs/Day Years [...] Description 02/22/2025 2:00 PM EST Office Visit [facility] Neurology [address] [place] [address] Percy Kapoor MD [address] [address] 02/28/2025 6:50 AM EST Hospital Encounter [facility] Main OR [address] [place] [address] Loren Hall MD [address] [place] [address] Cytomegalovirus infection, unspecified cytomegaloviral infection type 02/28/2025 8:50 AM EST - 02/28/2025 10:20 AM EST Surgery [facility] Main OR [address] [place] [phone] Loren Hall MD [address] [place] [address] Bronchoscopy with dilation [61805 (CPT )] 03/20/2025 12:00 PM EST Office Visit [facility] Cardiac Subspecialty [address] [facility] 6th [place] [address] Charlie Barry MD [address] [place] [address] 05/15/2025 1:00 PM EST Office Visit [facility] Dermatology [address] [place] [address] Nelida Ayala MD [address] [place] [address] 07/12/2025 10:30 AM EDT Appointment [facility] Pulmonary Function Lab [address] [facility] [address] 5th Floor Room [address] [place] [address] 07/12/2025 11:30 AM EDT Office Visit [facility] Pulmonary [address] [facility] [address] 3rd [place] [phone] Daysi Fink MD [address] [facility] [address] [place] [address] Scheduled Procedures Name Priority Associated Diagnoses Date/Ti me Bronchoscopy Tracheal stenosis 02/28/2025 8:50 AM EST documented as of this encounter Visit Diagnoses Diagnosis Cytomegalovirus (CMV) viremia Cytomegaloviral disease Cytomegalovirus infection, unspecified cytomegaloviral infection type Tracheal stenosis Other diseases of trachea and bronchus Cytomegalovirus infection, unspecified cytomegaloviral infection type documented in this encounter Care Teams Tower Attendant Relationship Specialty Start Date End Date Name, MD Yoandy [address] [place] [address] PCP - General Candy Bar Attendant 11/12/23 Glenn Herman MD [address] [place] [address] Referring Physician Cardiology 11/12/23 Edward Handley, animated cartoons painter Field Technical Support Consultant Pharmacy 12/31/23 Jennie Michelle, PharmD [address] [place] [address] Pharmacist Pharmacy 01/27/24 Juan Hutchinson MD [address] [place] [address] [place] [address] Attending Physician Cardiology 12/19/24 documented as of this encounter
--- OUTSIDE RECORDS SUMMARY | 2025-02-10 12:39 | XMS_ITS | Encounter Summary ---
Author Organization [employer] Address [address] [facility] 7t [place] [address] Care Team Providers Care Director Medical Name Role Phone Name, Yoandy LUGO Primary Care Provider [phone] Name, Yoandy LUGO Primary Care Provider [phone] Reason for Visit * Reason Onset Date Comments FYI 10/01/2022 Encounter Details Date Type Department Care Team ([facility] st Contact Info) Description 10/01/2022 Telephone [facility] MEDICINE [address] [place], [place] [phone] Name, MD Yoandy [address] [place] [address] FYI Social History Tobacco Use Types Packs/Day [...] is currently hospitalized since 09/15/2022 at the [facility] documented in this encounter Plan of Treatment Upcoming Encounters Date Type Department Care Team (Late st Contact Info) Description 02/20/2025 10:00 AM EST Office Visit [facility] MEDICINE [address] [place] [address] Name, MD Yoandy [address] [place] [address] documented as of this encounter Visit Diagnoses Not on filedocumented in this encounter Care Teams Director Medical Relationship Specialty Start Date End Date Name, MD Yoandy [address] [place] [address] PCP - General Family Medicine 01/18/21 06/04/23 Name, MD Yoandy [address] [place] [address] PCP - General Internal Medicine 10/19/23 [facility] 01/19/24 documented as of this encounter
--- OUTSIDE RECORDS SUMMARY | 2025-02-10 12:39 | XMS_ITS | Clinical Summary ---
Author Organization [facility] Address [facility] [employer] [address] [place] [address] Phone Care Team Providers Care Rapid Extractor Operator Name Role Phone Name, Yoandy LUGO Primary Care Provider [phone] Social History Tobacco Use Types Packs/Day Years [...] file Insurance MEDICARE PART A & B [facility] [address] [place], [place] [address]B [place] A [place] [id number] [facility] [address] [place], [place] [address]B MEDICARE PART A & B [facility] FULL Member Subscriber Plan / Payer (Ef fective 2023-Present) Name:Matthew Toro Relation to Subscriber:Self Name:Matthew Toro Payer ID:Not on file Group ID:Not on file Type:Medicaid Address: [address] MEDICARE PART A & B [employer] SAFETY NET FULL MEDICARE PART A & B [facility] SAFETY NET FULL Member Subscriber Plan / Payer (Ef fective 2023-Present) Name:Matthew Toro Relation to Subscriber:Self Name:Avila Margarita Matthew Donny Payer ID:Not on file Group ID:Not on file Type:Medicaid Address: [address] [place] [id number] [facility] FULL B Care Teams Rapid Extractor Operator Relationship Specialty Start Date End Date Name, MD Yoandy [address] [place] [address] PCP - General Internal Medicine 11/02/23 Additional Source Comments The information contained in this document represents components of the legal health record. It is not the complete legal health record.[facility]
--- OUTSIDE RECORDS SUMMARY | 2025-02-10 12:39 | XMS_ITS | Data Portability ---
Author Organization [place] [facility], [facility] Address [address] [facility] [address] [place] [address] Assessment Encounter Date Assessment Date Assessment LastModified by Organization Details LastModified Time 02/25/2024 02/25/2024 68-year-old male presents today for evaluation of stridor and tracheal stenosis. Symptoms seem to worsen about 3 weeks ago following dilation in November. Of note he had heart transplant about 2 months ago at [facility]. Flexible laryngoscopy did not reveal [...] heart transplant. Thank you. 2023 Tarsha wagner [facility] Pulmonary Medicine, [address] [facility], [place], [address], 09:56:34 Procedures None recorded. Surgeries None recorded. Imaging None recorded. Medication Orders None recorded. Patient TargetsNo targets recorded. Patient InstructionsNo instructions recorded. Reason for Referral Web Marketing Specialist Referral for T gaby stenosis following tracheostomy Established patient of Dr Alegre. Needs follow up appt/repeat endoscopy. Patient has recent heart transplant. Thank you. Referring Physician: Sandip Regalado, Otolaryngology, Encounter Date: 02/25/2024 Problems Name Problem SNOMED Code Status Onset Date Resolution Date Notes Provider Name and Address Organization Details Recorded Time Tracheal stenosis following tracheostomy 02398981 Active 2023 SANDIP REGALADO MD [address] [facility],[place] [address], [place], [phone], [facility] - [facility] 4 12:10:02 Sensorineural hearing loss of bilateral ears 604070162 Active 2024 BORA GRAY, [facility] [address] [facility],[place] [address], [place], [phone], [facility] 5 16:02:33 Problem Notes None recorded. Procedures Surgical History Date Name Laterality Status Provider Name and Address Organization Details Recorded Time 04/15/19 25 Comp Audio with Tymps - 52548 & 47159 completed BORA GRAY [address],[place] [address], [place], [address], [facility] 04/15/2024 16:02:37 02/25/20 24 Fiberoptic Laryngoscopy (Comprehensive) completed SANDIP REGALADO MD [address] [place] [address],[address], [address], [facility] 02/25/2024 12:11:38 Imaging Results None recorded. [...] Not Available Not Available Comfort [employer] [place] 32 gauge x 5/32 active Not Available [...] Updated DateTime 04/15/2024 172.72 cm 20.2 kg/m2 82466.79 g Manda Ly [place] - [facility] 04/15/2024 16:28:34 Date Recorded Body height Body mass index (BMI) Body weight Provider Name and Address Organization Details Last Updated DateTime 02/25/2024 172.72 cm 26.8 kg/m2 20934.26 g Manda Ly [facility] 02/25/2024 11:47:14 Social History None recorded. Functional Status None recorded. Mental Status None recorded. Family History Nothing Reported. Medical History Condition Response Diabetes Y Heart Problems Y Hyperlipidemia Y Past Encounters Encounter ID Performer Location Encounter Start Date Encounter Closed Date Diagnosis/Indication Diagnosis SNOMED-CT Code Diagnosis ICD10 Code Diagnosis IMO Codes Diagnosis Note [id number] SANDIP REGALADO MD [facility] [address] [address] 02/25/2024 11:26:24 02/25/2024 12:26:39 Tracheal stenosis following tracheostomy 06312255 J95.03 [id number] SANDIP REGALADO MD [facility] [address] [address] 04/15/2024 15:37:29 04/15/2024 16:57:22 Sensorineural hearing loss of bilateral ears 257959983 H90.3 68 yo M with a history [...] and there was likely some irritation here. [id number] JACQUE LUGO [facility] [address] [address] 04/15/2024 15:59:22 04/18/2024 07:41:17 Sensorineural hearing loss of bilateral ears 003653690 H90.3 Right Ear:Normal hearing through 1.5K Hz [...] Name 06/15/2024 2 [place] [id number] Matthew L Avila [id number] Matthew Donny Avila Avila 06/15/2024 1 [place] [employer] Matthew Avila Avila [id number] Matthew Donny Avila Avila 06/15/2024 2 [place] [facility] Matthew L Avila Avila [id number] Matthew Donny Avila Avila Notes Date Note Type Note Provider Name and Address Organization Details Recorded Time 02/25/2024 text/html ROS as noted in the HPI 68 yo M here for tracheal stenosis.Wheezing, had had 5 bronchoscopies. Scarring in the trachea following tracheostomy due to intensive care after heart attack, last year 2022 in [place], was on vacation. Coughing a lot. Had [...] corrected for lung volume SANDIP REGALADO MD [address] [place] [address],[address], [address], [facility] - [facility] 02/26/2024 10:58:54 04/15/2024 text/html Starting feeling numb on the side of the ear right after his surgeryTTP over jaw Has seen Dr. Walton. SANDIP REGALADO MD [address] [place] [address],[address], [address], [facility] - [facility] 04/18/2024 07:25:33
--- OUTSIDE RECORDS SUMMARY | 2025-02-10 12:40 | XMS_ITS ---
Author Organization [facility] Address [address] [facility], [address] [place] [address] Care Team Providers Care Electric Transfer Operator Name Role Phone Glenn Herman MD Unavailable [phone] NameYoandy MD Primary Care Provider [phone] Edward Handley CPhT Unavailable Unavailable Jennie Michelle PharmD Unavailable [phone] Juan Hutchinson MD Unavailable [phone] RxSp Transplant Status:Enrolled (Active) Start date:12/31/2023 [...] Name Relationship Phone Edward Handley CPhT(Responsible Staff) Waistband Setter Jennie Michelle PharmD Pharmacist [phone] Continued Care and Services Coordination
--- OUTSIDE RECORDS SUMMARY | 2025-02-10 12:40 | XMS_ITS | Encounter Summary ---
Author Organization [employer] Address [address] [facility] [address] 7t [place] [address] Care Team Providers Care Rail Express Clerk Name Role Phone Name, Yoandy LUGO Primary Care Provider [phone] Name, Yoandy LUGO Primary Care Provider [phone] Encounter Details Date Type Department Care Team (Late st Contact Info) Description 03/21/2022 Orders Only [facility] MEDICINE [address] [place] [address] Coby Flores RN Social History Tobacco Use [...] Description 02/20/2025 10:00 AM EST Office Visit [facility] MEDICINE [address] [place] [address] Name, MD Yoandy [address] [place] [address] documented as of this encounter Procedures Procedure Name Priority Date/Time Associated Diagnosis Comments B TYPE NATRIURETIC PEPTIDE (BNP) Routine 06/27/2022 9:53 AM EDT HEPATIC FUNCTION PANEL Routine 06/27/2022 9:53 AM EDT LIPID PANEL, STANDARD Routine 06/27/2022 9:53 AM EDT BASIC METABOLIC PANEL Routine 06/27/2022 9:53 AM EDT documented in this encounter Results * Lipid Panel, Standard (06/27/2022 9:53 AM EDT) Triglycerides 84 mg/dL [facility] Comment:Desirable Triglyceri de: less than [...] 9:53 AM EDT 06/27/2022 9:53 AM EDT [facility] External Provider LAB BLO OD ORDERABLES Final Result [facility] [address] [place] [phone] * (ABNORMAL) Basic Metabolic Panel (06/27/2022 [...] 1.210.Chronic Kidney Disease: Estimated GFR < 60 mL/min/1.90q7Fssvhq Kidney Disease: Estimated GFR < 15 mL/min/1.73m2 Glucose 141(H) 60 - 115 mg/dL [facility] Calcium 9.4 8.4 - 10.2 mg/dL [facility] 06/27/2022 9:53 AM EDT 06/27/2022 9:53 AM EDT [facility] External Provider LAB BLO OD ORDERABLES Final Result Performing Organization Address [facility] Co de Phone Number [facility] [address] [place] [phone] * Hepatic Function Panel (06/27/2022 9:53 [...] 9:53 AM EDT 06/27/2022 9:53 AM EDT [facility] External Provider LAB BLO OD ORDERABLES Final Result Performing Organization Address [facility] de Phone Number [facility] [address] [place] [phone] * (ABNORMAL) B Type Natriuretic Peptide [...] AM EDT 06/27/2022 9:53 AM EDT us [facility] External Provider LAB BLO OD ORDERABLES Final Result [facility] [address] [place] [phone] documented in this encounter Visit Diagnoses Not on filedocumented in this encounter Care Teams Rail Express Clerk Relationship Specialty Start Date End Date NameYoandy MD [address] [place] [address] PCP - General Family Medicine 01/18/21 06/04/23 Name, MD Yoandy [address] [place] [address] PCP - General Internal Medicine 10/19/23 [facility] 01/19/24 documented as of this encounter
[2025-02-13 14:29] LABS: CMV DNA Qn PCR <1.54 DETECTED Log IU/mL (NOT DETECTED)
== END 2025-02-10 10:41 | disposition home or self-care (01) ==
LOC: HO.LABR 10:40
PROVIDERS: PCP Internal Medicine Geriatric Medicine; Visit Provider Nurse Practitioner Family
DX: B25.9 Cytomegaloviral disease, unspecified (principal)
CPT/HCPCS: 36415; 87497

== ENCOUNTER 2025-02-14 11:59 | Outpatient (REF) | payer MEDICARE, SELFPAY ==
--- OUTSIDE RECORDS SUMMARY | 2025-02-14 13:59 | XMS_ITS | Encounter Summary ---
Author Organization [facility] Address [address] [facility] [address] [place] [address] Care Team Providers Care Wafer Substrate Tester Name Role Phone Glenn Herman MD Unavailable Name, Yoandy LUGO Primary Care Provider Edward Handley laboratory apparatus glass grinder Unavailable Unavailable Jennie Michelle PharmD Unavailable [phone] Juan Hutchinson MD Unavailable [phone] Encounter Details Date Type Department Care Team (Late st Contact Info) Description 12/25/2023 Lab Requisition [facility] HLA Lab [address] [place] [phone] Pedro Kline MD [address] [facility] [address] [place] [address] Cardiomyopathy, unspecified (Multi-HCC) Social History Tobacco Use [...] Description 02/22/2025 2:00 PM EST Office Visit [facility] Neurology [address] [place] [phone] Percy Kapoor MD [address] [address] 02/28/2025 6:50 AM EST Hospital Encounter [facility] Main OR [address] [place] [address] Loren Hall MD [address] [place] [address] Cytomegalovirus infection, unspecified cytomegaloviral infection type 02/28/2025 8:50 AM EST - 02/28/2025 10:20 AM EST Surgery [facility] Main OR [address] [place] [address] Loren Hall MD [address] [place] [address] Bronchoscopy with dilation [71105 (CPT )] 03/20/2025 12:00 PM EST Office Visit [facility] Cardiac Subspecialty [address] [facility] 6th [place] [phone] Charlie Barry MD [address] [place] [address] 05/15/2025 1:00 PM EST Office Visit [facility] Dermatology [address] [place] [address] Nelida Ayala MD [address] [place] [address] 07/12/2025 10:30 AM EDT Appointment [facility] Pulmonary Function Lab [address] [facility] [address] 5th Floor Room [address] [place] [phone] 07/12/2025 11:30 AM EDT Office Visit [facility] Pulmonary [address] [facility] [address] 3rd [place] [phone] Daysi Fink MD [address] [facility] [address] [place] [phone] Scheduled Procedures Name Priority Associated Diagnoses Date/Ti me Bronchoscopy Tracheal stenosis 02/28/2025 8:50 AM EST documented as of this encounter Procedures Procedure Name Priority Date/Time Associated Diagnosis Comments HLA CONSULTATION Routine 12/25/2023 8:41 AM EDT Cardiomyopathy, unspecified (Multi-HCC) documented in this encounter Results * HLA Consultation (12/25/2023 8:41 AM EDT) PDF Attached See PDF Document 12/26/2023 3:15 PM EDT [facility] Blood Venous blood specimen / Unknown 12/25/2023 8:41 AM EDT 12/25/2023 7:39 PM EDT us Pedro Kline MD LAB BLOOD ORDERABLES Maral garcia Result [facility] HLA LAB [address] [place] [address], documented in this encounter Visit Diagnoses Diagnosis Cardiomyopathy, unspecified Cytomegalovirus infection, unspecified cytomegaloviral infection type Tracheal stenosis Other diseases of trachea and bronchus Cytomegalovirus infection, unspecified cytomegaloviral infection type documented in this encounter Care Teams Wafer Substrate Tester Relationship Specialty Start Date End Date Name, MD Yoandy [address] [place] [address] PCP - General Chief Telephone Operator 11/12/23 Glenn Herman MD [address] [place] [address] Referring Physician Cardiology 11/12/23 Edward Handley CPhT Clerical Grader Pharmacy 12/31/23 Jennie Michelle, PharmD [address] [place] [phone] Pharmacist Pharmacy 01/27/24 Juan Hutchinson MD [address] [place] [address] [place] [phone] Attending Physician Cardiology 12/19/24 documented as of this encounter
--- OUTSIDE RECORDS SUMMARY | 2025-02-14 13:59 | XMS_ITS | Encounter Summary ---
Author Organization [employer] Address [address] [place] [address] Care Team Providers Care Pick Up Truck Driver Name Role Phone Name, Yoandy LUGO Primary Care Provider [phone] Name, Yoandy LUGO Primary Care Provider [phone] Encounter Details Date Type Department Care Team (Late st Contact Info) Description 03/21/2022 Orders Only [facility] [address] [place] [address] Coby Flores RN Social History Tobacco Use [...] 02/20/2025 10:00 AM EST Office Visit [facility] [address] [place] [address] Name, MD Yoandy [address] [place] [address] documented as of this encounter Procedures Procedure Name Priority Date/Time Associated Diagnosis Comments B TYPE NATRIURETIC PEPTIDE (BNP) Routine 06/27/2022 9:53 AM EDT HEPATIC FUNCTION PANEL Routine 06/27/2022 9:53 AM EDT LIPID PANEL, STANDARD Routine 06/27/2022 9:53 AM EDT BASIC METABOLIC PANEL Routine 06/27/2022 9:53 AM EDT documented in this encounter Results * Lipid Panel, Standard (06/27/2022 9:53 AM EDT) Triglycerides 84 mg/dL [facility] Comment:Desirable Triglyceri de: less than 150 mg/dLBorderline High Triglyceride 150-199 mg/dLHigh Triglyceride: 200-499 mg/dLVery High Triglyceride: greater than or equal to 5OO mg/dL Cholesterol 154 mg/dL [facility] Comment:Desirable Cholestero l: less than 200 mg/dLBorderline High Cholesterol: 200-239 mg/dLHigh Cholesterol: greater than 239 mg/dL LDL Cholesterol Calculated 104 mg/dl [facility] Comment:Desirable LDL: less than 100 mg/dLNear Optimal/Above Optimal LDL: 110- 129 mg/dLBorderline High LDL: 130-159 mg/dLHigh LDL: 160-189 mg/dLVery High LDL: greater than or equal to 190 mg/dL HDL Cholesterol 34 mg/dL [facility] Comment:Desirable HDL: great er than 40 mg/dL Note: This HDL assay may give artificially low results in patients with liver disease. 06/27/2022 9:53 AM EDT 06/27/2022 9:53 AM EDT [facility] External Provider LAB BLO OD ORDERABLES Final Result [facility] [address] [place] [address] [phone] * (ABNORMAL) Basic Metabolic Panel (06/27/2022 9:53 AM EDT) Sodium 143 135 - 145 mmol/L [facility] Potassium 4.6 3.3 - 5.1 mmol/L [facility] Chloride 108 96 - 108 mmol/L [facility] Carbon Dioxide 26 22 - 29 mmol/L [facility] Anion Gap 14 12 - 20 [facility] Urea Nitrogen (BUN) 13 9 - 16 mg/dL [facility] Creatinine, Serum 1.02 0.5 - 1.4 mg/dL [facility] Estimated Glomerular Filt Rate >60 [facility] Comment:NOTE: For -Am erican individuals, multiply the result by 1.210.Chronic Kidney Disease: Estimated GFR < 60 mL/min/1.02z0Wjicpb Kidney Disease: Estimated GFR < 15 mL/min/1.73m2 Glucose 141(H) 60 - 115 mg/dL [facility] Calcium 9.4 8.4 - 10.2 mg/dL [facility] 06/27/2022 9:53 AM EDT 06/27/2022 9:53 AM EDT [facility] External Provider LAB BLO OD ORDERABLES Final Result Performing Organization Address [facility] Co de Phone Number [facility] [address] [place] [phone] * Hepatic Function Panel (06/27/2022 9:53 AM EDT) Bilirubin, Total 1.0 0.0 - 1.0 mg/dL [facility] Bilirubin, Direct 0.3 0.0 - 0.5 mg/dL [facility] Aspartate Amino Transferase 19 5 - 37 U/L [facility] Alanine Aminotransferase 24 0 - 40 U/L [facility] Total Protein 6.7 6.5 - 8.0 g/dL [facility] Albumin Level 4.2 3.5 - 5.0 g/dL [facility] Alkaline Phosphatase 61 39 - 117 U/L [facility] 06/27/2022 9:53 AM EDT 06/27/2022 9:53 AM EDT [facility] External Provider LAB BLO OD ORDERABLES Final Result Performing Organization Address [facility] de Phone Number [facility] [address] [place] [phone] * (ABNORMAL) B Type Natriuretic Peptide (BNP) (06/27/2022 9:53 AM EDT) B Type Natriuretic Peptide 332(H) <100 pg/mL [facility] Comment:For those patients w ho are being treated with Natrecor(nesiritide, recombinant BNP), BNP testing should beperformed at least two hours post treatment in order toensure that only endogenous levels of BNP are detected. 06/27/2022 9:53 AM EDT 06/27/2022 9:53 AM EDT [facility] External Provider LAB BLO OD ORDERABLES Final Result [facility] [address] [place] [phone] [phone] documented in this encounter Visit Diagnoses Not on filedocumented in this encounter Care Teams Pick Up Truck Driver Relationship Specialty Start Date End Date NameYoandy MD [address] [place] [address] PCP - General Family Medicine 01/18/21 06/04/23 Name, MD Yoandy [address] [place] [address] PCP - General Internal Medicine 10/19/23 [facility] 01/19/24 documented as of this encounter
--- OUTSIDE RECORDS SUMMARY | 2025-02-14 13:59 | XMS_ITS ---
Author Organization [facility] Address [address] [place] [address] Care Team Providers Care Assistant Program Manager Name Role Phone Glenn Herman MD Unavailable [phone] NameYoandy MD Primary Care Provider [phone] Edward Handley steam presser Unavailable Unavailable Jennie Michelle PharmD Unavailable [phone] Juan Hutchinson MD Unavailable [phone] Transplant Episode Heart Recipient [facility] ([place], [place]) - MAN Organ Received: Heart Transplanted on 12/28/2023 Marked as Active Follow-up on 12/28/2023 Heart CoordinatorZackery Paulino RN Phone: N/A Fax: N/A Email: N/A [place] Organ Diagnosis Organ Primary Contributory Heart Dilated [...] Role Phone Fax Email Zackery Paulino RN Heel Cementer N/A N/A N/A Glenn Herman MD Referring Physician [phone] N/A Izaiah Watt MD Drilling Field Professional [phone] N/A Events Post-Transplant Pre-Transplant Admitted: 11/23/2023 Referred: 11/09/2023 Transplanted: 12/28/2023 Evaluation began: 4 Discharged: 01/14/2024 Committee: 12/21/2023 Center waitlisted: 4 Appointments (01/14/2025 - 03/16/2025) When With Visit Type Description 02/06/2025 Derm - [facility] [place] [facility] New Patient Eczema c raquele (Primary Dx); Tinea cruris; Onychomycosis; Irritant contact dermatitis due to other agents; Sharp angioma; Immunosuppression
--- OUTSIDE RECORDS SUMMARY | 2025-02-14 13:59 | XMS_ITS | Clinical Summary ---
Author Organization [facility] Address [address] [facility] [address] [place] [address] Care Team Providers Care Household Chores Name Role Phone Glenn Herman MD Unavailable [phone] NameYoandy MD Primary Care Provider [phone] Edward Handley ice house supervisor Unavailable Unavailable Jennie Michelle PharmD Unavailable [phone] Bridger Hernandez MD Unavailable [phone] Allergies Active Allergy Reactions Criticality Noted [...] 30 units/24 hours 30 mL 3 01/13/20 25 3:21 PM EDT 025 Active Additional Information Patient not taking.Reported on 12/19/2024 pen needle, diabetic (BD Ultra-Fine Mini Pen Needle) 31 gauge x 3/16 needleIndicat ions:Heart transplant recipient Use with insulin pen as directed 100 each 2 11/18/19 25 3:45 PM EDT 025 Active fluticasone (Flonase) 50 mcg/actuation nasal sprayIndicati ons:Chronic cough Administer 1 spray into each nostril once daily. Shake gently. Before first use, prime pump. After use, clean tip and replace cap. 16 g 3 01/13/20 25 3:21 PM EDT 025 Active tacrolimus (Prograf) 5 mg capsuleIndica tions:Heart transplant recipient Take 1 capsule (5 mg) by mouth twice daily. 60 capsule 11 02/14/20 25 5:29 PM EST 025 2025 Active tacrolimus (Prograf) 1 mg capsuleIndica tions:Heart transplant recipient Take 1 capsule (1 mg) by mouth twice daily. 60 capsule 11 02/14/20 25 5:29 PM EST 025 2025 Active cholecalcifer ol, vitamin D3, (Vitamin D-3) 25 MCG (1000 UT) tabletIndicat ions:Heart transplant recipient Take 1 tablet (1,000 Units) by mouth once daily. 30 tablet 11 02/14/20 25 5:29 PM EST 025 2025 Active aspirin 81 mg chewable tabletIndicat ions:Heart transplant recipient Chew 1 tablet (81 mg) once daily. 30 tablet 11 02/14/20 25 5:29 PM EST 025 2025 Active predniSONE (Deltasone) 5 mg tabletIndicat ions:Heart transplant recipient Take 1 tablet (5 mg) by mouth once daily. 30 tablet 5 02/14/20 25 5:29 PM EST 025 2025 Active pantoprazole (ProtoNix) 40 mg EC tabletIndicat ions:Heart transplant recipient Take 1 tablet (40 mg) by mouth before breakfast. Do not crush, chew, or split. 30 tablet 11 02/14/20 25 5:29 PM EST 025 2025 Active sulfamethoxaz ole-trimethop rim (Bactrim DS) 800-160 mg tabletIndicat ions:Heart transplant recipient Take 1 tablet by mouth once daily. 30 tablet 12/15/19 25 4:35 PM EDT Active levETIRAcetam (Keppra) 750 mg tabletIndicat ions:Heart transplant recipient Take 1 tablet (750 mg) by mouth twice daily. 60 tablet 2 02/14/20 25 5:29 PM EST 025 2024 Active mycophenolate (Cellcept) 250 mg capsuleIndica tions:Heart transplant recipient Take 1 capsule (250 mg) by mouth twice daily. 60 capsule 11 02/14/20 25 5:29 PM EST 025 2025 Active mycophenolate (Cellcept) 500 mg tabletIndicat ions:Heart transplant recipient Take 1 tablet (500 mg) by mouth twice daily. Take in addition to 250mg cap, total dose 750mg twice daily. 60 tablet 11 02/14/20 25 5:29 PM EST 025 2025 Active pravastatin (Pravachol) 80 mg [...] mouth before evening meal. 30 tablet 11 02/14/20 25 5:29 PM EST 025 2025 Active famotidine (Pepcid) 20 mg [...] 's report Asked patient to call his Business Instructor regarding his increased weight/swelling for further recommendations. Last Assessment & Plan: reports he's up a few pounds from his baseline weight, worsening leg swelling over the last few days. Compliant with Torsemide - taking full dose per 's report Asked patient to call his Business Instructor regarding his increased weight/swelling for further [...] Type Department Care Team Description 02/09/2025 Telephone [facility] Infectious Disease [address] [phone] Lena Cortes NP 02/08/2025 Refill [facility] Infectious Disease [address] [phone] Lena Cortes NP Cytomegalovirus (CMV) viremia 02/08/2025 Refill [facility] Cardiac Subspecialty [address] [phone] Jose Angel Nunez NP Heart transplant recipient 02/06/2025 1:00 PM EST Office Visit [facility] Dermatology [address] [place] [address] Nelida Ayala MD Eczema craquele (Primary Dx); Tinea cruris; Onychomycosis; Irritant contact dermatitis due to other agents; Sharp angioma; Immunosuppression 02/06/2025 Travel 02/02/2025 2:00 PM EDT Office Visit [facility] Lung Nodule 800 [facility] [address] [place] [address] Loren Hall MD Tracheal stenosis following tracheostomy (Primary Dx); Heart transplant recipient; Immunosuppressed status 02/02/2025 1:30 PM EDT Office Visit [facility] Lung Nodule 800 [facility] [address] [place] [address] Alfred Mckeon MD Tracheal stenosis (Primary Dx) 02/02/2025 Travel 01/24/2025 Telephone [facility] Infectious Disease [address] [address] Lena Cortes NP 01/18/2025 Telephone [facility] Infectious Disease [address] [address] Lena Cortes, SOUS CHEF KITCHEN MANAGER 01/10/2025 Refill [facility] Cardiology 800 [facility] [address] [place] [address] Pedro Kline MD Heart transplant recipient 01/03/2025 10:30 AM EDT - 01/03/2025 12:30 PM EDT Surgery [facility] Cardiac Heel Scorer [address] [place] [address] Luisa Yang MD Coronary angiography [16537 (CPT )] 01/03/2025 10:17 AM EDT - 01/03/2025 4:56 PM EDT Hospital Encounter [facility] Heel Scorer [address] [place] [address] Luisa Yang MD Other cytomegaloviral diseases (Multi-HCC) (Primary Dx); Heart transplant recipient (Multi-HCC) Discharge Disposition: Home or self care 01/03/2025 Travel 01/02/2025 Orders Only [facility] Infectious Disease [address] [address] Lena Cortes NP 12/28/2024 11:30 AM EDT Office Visit [facility] Pulmonary [address] [address] Daysi Fink MD Chronic cough (Primary Dx); Pulmonary sarcoidosis (Multi-HCC); 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); Cardiac sarcoidosis (HHS-HCC); Dyspnea and respiratory abnormality 12/28/2024 10:16 AM EDT - 12/28/2024 11:59 PM EDT Hospital Encounter [facility] Imaging [address] [place] [address] Cytomegalovirus infection, unspecified cytomegaloviral infection type (Multi-HCC); Tracheal stenosis; Pulmonary sarcoidosis (Multi-HCC) Discharge Disposition: Home or self care 12/28/2024 Travel 12/26/2024 Orders Only [facility] Infectious Disease [address] [phone] Lena Cortes NP Cytomegalovirus (CMV) viremia (Multi-HCC) 12/20/2024 Results Follow-Up [facility] Infectious Disease [address] [address] Lena Cortes SOUS CHEF KITCHEN MANAGER 12/19/2024 11:40 AM EDT - 12/19/2024 11:59 PM EDT Hospital Encounter [facility] Radiology [address] [place] [phone] Other cytomegaloviral diseases (Multi-HCC); Heart transplant recipient (Multi-HCC) Discharge Disposition: Home or self care 12/19/2024 11:00 AM EDT Office Visit [facility] Cardiac Subspecialty [address] [phone] Bridger Hernandez MD Type 2 diabetes mellitus with other specified complication, unspecified whether long chain beamer insulin use (Multi-HCC) (Primary Dx); Other cytomegaloviral diseases (Multi-HCC); Heart transplant recipient (Multi-HCC); Mixed hyperlipidemia ; Prostate cancer screening; Sarcoidosis 12/19/2024 7:36 AM EDT - 12/19/2024 11:39 AM EDT Hospital Encounter [facility] Cardiac Echo [address] [facility] [address] [place] [phone] Other cytomegaloviral diseases (Multi-HCC); Heart transplant recipient (Multi-HCC); Heart transplant rejection (Multi-HCC) Discharge Disposition: Home or self care 12/19/2024 Telephone [facility] Cardiac Subspecialty [address] [phone] Kailyn Hess Appointment; Follow-up 12/19/2024 Travel 12/14/2024 Orders Only [facility] Infectious Disease [address] [address] Lena Cortes NP Heart transplant recipient (Multi-HCC) (Primary Dx); Other cytomegaloviral diseases (Multi-HCC) 12/13/2024 Refill [facility] Infectious Disease [address] [address] Lena Cortes NP Other cytomegaloviral diseases (Multi-HCC) 12/13/2024 Refill [facility] Cardiac Subspecialty [address] [phone] Jose Angel Nunez NP Heart transplant recipient (Multi-HCC) 12/13/2024 Refill [facility] Cardiology [address] [phone] Izaiah Martinez MD Heart transplant recipient (Multi-HCC) 12/13/2024 Refill [facility] Cardiology [address] [facility] [address] [place] [phone] Pedro Kline MD Heart transplant recipient (Multi-HCC) 12/13/2024 Refill [facility] Cardiac Subspecialty [address] [address] Sharon Savage NP Heart transplant recipient (Multi-HCC) 12/02/2024 Telephone [facility] Patient Access 800 [place] [address] , Barrera-Chi 11/21/2024 Telephone [facility] Cardiac Subspecialty [address] [phone] Kailyn Hess Appointment 11/16/2024 Telephone [facility] Cardiac Subspecialty 860 [facility] 6th [place] [address] Kailyn Hess Appointment 11/15/2024 Refill [facility] Cardiology [address] [place] [address] Pedro Kline MD Heart transplant [...] Vaccine Formula 12+ (Deferred: Not available from gum sprayer - Per pharmacy vaccine is out of [...] Description 02/22/2025 2:00 PM EST Office Visit [facility] Neurology [address] [place] [address] Percy Kapoor MD [facility] [address] [place] [address] 02/28/2025 6:50 AM EST Hospital Encounter [facility] Main OR [address] [place] [phone] Loren Hall MD [address] [place] [address] Cytomegalovirus infection, unspecified cytomegaloviral infection type 02/28/2025 8:50 AM EST - 02/28/2025 10:20 AM EST Surgery [facility] Main OR [address] [place] [address] Loren Hall MD [address] [place] [address] Bronchoscopy with dilation [72571 (CPT )] 03/20/2025 12:00 PM EST Office Visit [facility] Cardiac Subspecialty 8[address] [facility] [address] [place] [address] Charlie Barry MD [address] [place] [address] 05/15/2025 1:00 PM EST Office Visit [facility] Dermatology [address] [place] [address] Nelida Ayala MD [address] [place] [address] 07/12/2025 10:30 AM EDT Appointment [facility] Pulmonary Function Lab 800 [facility] 5th Floor Room [address] [place] [address] 07/12/2025 11:30 AM EDT Office Visit [facility] Pulmonary 260 [facility] 3rd [place] [address] Daysi Fink MD 800 [facility] [address] [place] [address] Scheduled Procedures Name Priority Associated [...] Cindy Aj Medical Devices Implanted Type Area Post Commander Device Identifier Shelf Expiration Date Model / Serial / Lot Curtain Inspector-D [employer] Icd-10/02/2022 Implanted:09/05 (Quantity not on file) DEWER-D ICD Chest [employer] Graft Hemashield Str 10x30 - [id number] Implanted:Qty: 1 on 12/22/2023 at [facility] Graft Right: Axilla GETINGE/MAQUET CARDIOVASCULAR 09/03/2028 [id number] / [id number] / Impella- 024 Implanted:12/05 (Quantity not on [...] with other specified complication, unspecified whether long chain beamer insulin use (Multi-HCC) PSA TOTAL, SCREEN STAT [...] mellitus with other specified complication, unspecified whether intermediate insulin use (Multi-HCC) DOBUTAMINE STRESS ECHO (35928) Routine 12/19/2024 9:38 AM EDT Heart transplant recipient (Multi-HCC) Heart transplant rejection (Multi-HCC) HCV RNA, QUANTITATIVE, PCR (MONITORING) Routine 01/26/2024 10:30 AM EDT ALBUMIN, URINE, RANDOM (INCLUDING CREATININE) Routine 11/26/2023 1:50 PM EDT from Last 3 Months or Most Recently Relevant to Health Maintenance Results * CORONARY ANGIOGRAPHY, ENDOMYOCARDIAL BIOPSY (01/03/2025 12:45 PM EDT) 01/03/2025 12:1 1 PM EDT Narrative [facility] - 01/03/2025 5:21 PM EDT [facility] Adult Catheterization Lab [address] [place] [address] Right and Left Diagnostic Cardiac Catheterization and [...] + + + + PA pressure s/d 6 (11) (m) + + + + PA wedge a/v (m) 09/09 () + + + + Arterial pressure 103/56 (75) s/d (m) + + + + Aortic pressure -11/- (-11) s/d (m) + + + + [...] Luisa Richter 01/03/2025 17:21 Procedure Note Luisa aYng MD - 01/03/2025 [facility] Adult Catheterization Lab [address] [place] [address] Right and Left Diagnostic Cardiac Catheterization and [...] + + + + PA pressure s/d 20 (11) (m) + + + + PA [...] electronically signed by Luisa Richter 01/03/2025 17:21 Jose Angel Nunez NP CV CARDIAC CATH PROCEDURES Maral l Result [facility] * Tissue Pathology (01/03/2025 11:20 AM EDT) Case Report Surgical Pathology Case: [id number] Authorizing Provider: Jose Angel Nunez NP Collected: 01/03/2025 1120 Ordering Location: [facility] Received: 01/03/2025 1320 Cardiac Heel Scorer Pathologist: Ramos Kay MD Specimen: Heart, R ventricle Bx post Tx 01/04/2025 4:36 PM EDT [facility] ANATOMIC PATHOLOGY LAB Final Diagnosis [...] show appropriate reactivity. 01/04/2025 4:36 PM EDT [facility] ANATOMIC PATHOLOGY LAB at 1636 [...] toto in A1. Grossed by DANY Wong PA([facility])RICARDO on 01/03/25 at 1:26 PM. 01/04/2025 4:36 PM EDT [facility] ANATOMIC PATHOLOGY LAB Disclaimer The [...] show appropriate reactivity. 01/04/2025 4:36 PM EDT [facility] ANATOM[facility] PATHOLOGY LAB Tissue Heart structure / Unknown 01/03/2025 11:20 AM EDT 01/03/2025 1:20 PM EDT Jose Angel Nunez NP LAB PATHOLOGY ORDERABLES Final Result [facility] ANATOMIC PATHOLOGY LAB [address] [place] [address], * (ABNORMAL) CBC w/ Differential (01/03/2025 11:10 AM EDT) WBC 2.7(L) 4.0 - 11.0 K/uL 01/03/2025 11:41 AM EDT [facility] RBC 3.82(L) 4.20 - 5.90 M/uL 01/03/2025 11:41 AM EDT [facility] Hemoglobin 11.3(L) 13.0 - 17.5 g/dL 01/03/2025 11:41 AM EDT [facility] Hematocrit 33.5(L) 37.0 - 53.0 % 01/03/2025 11:41 AM EDT [facility] MCV 87.7 80.0 - 100.0 fL 01/03/2025 11:41 AM EDT [facility] MCH 29.6 26.0 - 34.0 pg 01/03/2025 11:41 AM EDT [facility] MCHC 33.7 31.0 - 37.0 g/dL 01/03/2025 11:41 AM EDT [facility] RDW-CV 12.8 11.5 - 14.5 % 01/03/2025 11:41 AM EDT [facility] RDW-SD 40.4 35.0 - 51.0 fL 01/03/2025 11:41 AM EDT [facility] Platelets 122(L) 150 - 400 K/uL 01/03/2025 11:41 AM EDT [facility] MPV 9.7 9.1 - 12.4 fL 01/03/2025 11:41 AM EDT [facility] Neutrophil % 65.5 % 01/03/2025 11:41 AM EDT [facility] Lymphocyte % 20.0 % 01/03/2025 11:41 AM EDT [facility] Monocytes % 5.6 % 01/03/2025 11:41 AM EDT [facility] Eosinophils % 5.2 % 01/03/2025 11:41 AM EDT [facility] Basophils % 0.4 % 01/03/2025 11:41 AM EDT [facility] Immature Granulocytes % 3.3 % 01/03/2025 11:41 AM EDT [facility] NRBC % 0.0 0.0 - 0.0 % 01/03/2025 11:41 AM EDT [facility] Neutrophils Absolute 1.77 1.50 - 7.95 K/uL 01/03/2025 11:41 AM EDT [facility] Lymphocytes Absolute 0.54(L) 0.70 - 4.00 K/uL 01/03/2025 11:41 AM EDT [facility] Monocytes Absolute 0.15(L) 0.38 - 0.83 K/uL 01/03/2025 11:41 AM EDT [facility] Eosinophils Absolute 0.14 0.00 - 0.50 K/uL 01/03/2025 11:41 AM EDT [facility] Basophils Absolute 0.01 0.00 - 0.22 K/uL 01/03/2025 11:41 AM EDT [facility] Immature Granulocytes Absolute 0.09 0.00 - 0.10 K/uL 01/03/2025 11:41 AM EDT [facility] NRBC Absolute 0.00 0.00 - 2.00 K/uL 01/03/2025 11:41 AM EDT [facility] Blood Venous blood specimen / Unknown Venipuncture / Unknown 01/03/2025 11:10 AM EDT 01/03/2025 11:34 AM EDT Zeina Maradiaga MD LAB BLOOD ORDERABLES Final Result [facility] [address] [place] [address], * Tacrolimus level (01/03/2025 11:10 AM EDT) Only the most recent of2 resultswithin the time period is included. [facility] Tacrolimus, LC-MS/MS 7.5 3.0 - 20.0 ng/mL 01/03/2025 3:15 PM EDT [facility] Comment:Performed by LC-MS/M S. Reference intervals are based on trough collection. Optimal therapeutic ranges depend on time post-transplant, dosing regimen, organ type, and concomitant immunosuppression therapy. Results should be interpreted in conjunction with physical signs/symptoms of rejection/toxicity. This test was developed and its performance characteristics determined by [facility]. It has not been cleared or approved by the FDA. The laboratory is regulated under CLIA as qualified to perform high-complexity testing. This test is used for clinical purposes. It should not be regarded as investigational or for research. Time of last dose 025 3:15 PM EDT [facility] Date of last dose 025 3:15 PM EDT [facility] Blood Venous blood specimen / Unknown Venipuncture / Unknown 01/03/2025 11:10 AM EDT 01/03/2025 11:34 AM EDT Zeina Maradiaga MD LAB BLOOD ORDERABLES Final Result Performing Organization Address City/[facility]/ZIP Co de Phone Number [facility] [address] [place] [address], * (ABNORMAL) CMV Quant DNA, RT-PCR, BLOOD (01/03/2025 11:10 AM EDT) Only the most recent of3 resultswithin the time period is included. Pathologist [facility] CMV DNA Viral Load 130(H) Not Detected IU/mL [facility] 2 01/03/2025 4:19 PM EDT [facility] Comment:DETECTED CMV DNA Viral Load, log 2.11(H) Not Detected log IU/mL 01/03/2025 4:19 PM EDT [facility] CMV DNA Viral Load, Interp Detected( A) Not Detected [facility] 01/03/2025 4:19 PM EDT [facility] Blood Venous blood specimen / Unknown Venipuncture / Unknown 01/03/2025 11:10 AM EDT 01/03/2025 11:34 AM EDT Narrative [facility] - 01/03/2025 4:19 PM EDT This test was performed using the [employer] Al[employer] m CMV DNA assay, performed on the [employer] AL[employer] m instrument Lena Cortes SOUS CHEF KITCHEN MANAGER LAB BLOOD ORDERABLES Fin al Result Performing Organization Address City/[facility]/ZIP Co de Phone Number [facility] [address] [place] [address], * Protime/INR (01/03/2025 11:10 AM EDT) Pathologist [facility] Protime 12.0 9.7 - 14.0 seconds 01/03/2025 11:55 AM EDT [facility] INR 1.04 See Comment 01/03/2025 11:55 AM EDT [facility] Comment: NORMAL PATIENTS NOT [...] BLOOD ORDERABLES Final Result Performing Organization Address [facility] Co de Phone Number [facility] [address] [place] [address], * Magnesium (01/03/2025 11:10 AM EDT) Only the most recent of2 resultswithin the time period is included. Magnesium 1.7 1.6 - 2.6 mg/dL 01/03/2025 12:13 PM EDT [facility] Blood Venous blood specimen / Unknown Venipuncture / Unknown 01/03/2025 11:10 AM EDT 01/03/2025 11:33 AM EDT Zeina Maradiaga MD LAB BLOOD ORDERABLES Final Result Performing Organization Address [facility] de Phone Number [facility] [address] [place] [address], * (ABNORMAL) Comprehensive metabolic panel (01/03/2025 11:10 AM EDT) Only the most recent of2 resultswithin the time period is included. Sodium 145 135 - 146 mmol/L 01/03/2025 12:13 PM EDT [facility] Potassium 4.4 3.6 - 5.2 mmol/L 01/03/2025 12:13 PM EDT [facility] Comment:Specimen hemolyzed r esult may be falsely increased up to 1.0 mmol/L. Chloride 106 98 - 110 mmol/L 01/03/2025 12:13 PM EDT [facility] CO2 (Bicarbonate) 24 20 - 32 mmol/L 01/03/2025 12:13 PM EDT [facility] Anion Gap 15(H) 3 - 14 mmol/L 01/03/2025 12:13 PM EDT [facility] BUN 17 6 - 24 mg/dL 01/03/2025 12:13 PM EDT [facility] Creatinine 0.98 0.55 - 1.30 mg/dL 01/03/2025 12:13 PM EDT [facility] eGFRcr 83 >=60 mL/min/1.7 3m*2 01/03/2025 12:13 PM EDT [facility] Comment:Calculated using CKD -EPI 2020 creatinine equation. Glucose 133(H) 70 - 99 mg/dL 01/03/2025 12:13 PM EDT [facility] Fasting? Yes [facility] [place] [facility] 01/03/2025 12:13 PM EDT [facility] Calcium 9.9 8.5 - 10.5 mg/dL 01/03/2025 12:13 PM EDT [facility] AST 24 6 - 42 U/L 01/03/2025 12:13 PM EDT [facility] ALT 9 0 - 55 U/L 01/03/2025 12:13 PM EDT [facility] Alkaline phosphatase 54 30 - 130 U/L 01/03/2025 12:13 PM EDT [facility] Protein, total 7.0 6.0 - 8.4 g/dL 01/03/2025 12:13 PM EDT [facility] Albumin 4.6 3.2 - 5.0 g/dL 01/03/2025 12:13 PM EDT [facility] Bilirubin, total 0.5 0.2 - 1.2 mg/dL 01/03/2025 12:13 PM EDT [facility] Blood Venous blood specimen / Unknown Venipuncture / Unknown 01/03/2025 11:10 AM EDT 01/03/2025 11:33 AM EDT us Zeina Maradiaga MD LAB BLOOD ORDERABLES Final Result [facility] [address] [place] [address], [place] * CT HIGH RESOLUTION CHEST WO [...] GENDER: Male ORD PHYS: DAYSI FINK LOCATION: [facility] 12/28/2024 10:46 AM EDT [id number] (CT HIGH RESOLUTION CHEST WO CONTRAST) [id number] Provided History: Pulmonary sarcoidosis and tracheal stenosis [...] 69 years GENDER: Male ORD PHYS: DAYSI Brown ALLICLAUDETTETERRIE LOCATION: [facility] 12/28/2024 10:46 AM EDT [id number] (CT HIGH RESOLUTION CHEST WO CONTRAST) [id number] Provided History: Pulmonary sarcoidosis and tracheal stenosis [...] GENDER: Male ORD PHYS: BRIDGER HERNANDEZ LOCATION: [facility] 12/19/2024 12:44 PM EDT IMG36 (XR CHEST 2 VIEWS) [id number] REASON FOR STUDY: cardiac transplantation TECHNIQUE: PA [...] GENDER: Male ORD PHYS: BRIDGER HERNANDEZ LOCATION: [facility] 12/19/2024 12:44 PM EDT IMG36 (XR CHEST 2 VIEWS) [id number] REASON FOR STUDY: cardiac transplantation TECHNIQUE: PA [...] C with eGFR (12/19/2024 12:15 PM EDT) Cystatin C 1.20(H) 0.72 - 1.16 mg/L [facility] 1 eGFRcys 59(L) >59 mL/min/1.73 [facility] 1 Blood Venous blood specimen / Unknown 12/19/2024 12:15 PM EDT 12/19/2024 Narrative [facility] - 12/20/2024 6:45 AM EDT Performed at: [address] [id number] Tax Intern: Iram Zambrano MD, Phone: [phone] us Bridger Hernandez MD LAB BLOOD ORDERABLES Final Resu lt Performing Organization Address City/State/[facility] Co de Phone Number [facility] [address] [place] [address], [facility] 1 * PSA Total, Screen (Male patients only) (12/19/2024 12:15 PM EDT) Pathologist [facility] PSA TOTAL 2.7 0.0 - 4.0 ng/mL [facility] 1 Comment: [place] ECLIA methodology. According to the [place] [employer], Serum PSA should decrease and [...] 12/20/2024 7:45 AM EDT Performed at: - [address] [id number] Tax Intern: Iram Zambrano MD, Phone: [phone] us Bridger Hernandez MD LAB BLOOD ORDERABLES Final Resu lt [facility] [address] [place] [address], [facility] 1 * (ABNORMAL) CBC and differential [...] 14.5 % [facility] 1 Comment:RDW-SD 40.4 fL 35.0 -51.0 Platelets 117(L) 150 - 400 K/uL [facility] [...] - 12/19/2024 3:15 PM EDT Performed at: [address] [place] [id number] Tax Intern: Jim Henning [facility], Phone: [phone] Bridger Hernandez MD LAB BLOOD ORDERABLES Final Resu lt Performing Organization Address [facility] de Phone Number [facility] [address] [place] [address], [facility] 1 * Uric Acid (12/19/2024 12:15 PM EDT) Uric Acid 5.2 2.6 - 8.0 mg/dL [facility] 1 Comment: Although the reference interval for men extends up to 8.0 mg/dL, patients with gout may benefit from uric acid levels <6.0 mg/dL. Blood Venous blood specimen / Unknown 12/19/2024 12:15 PM EDT 12/19/2024 Narrative [facility] - 12/19/2024 3:15 PM EDT Performed at: [address] [place] [address] [id number] Tax Intern: Jim Henning [facility], Phone: [phone] us Bridger Hernandez MD LAB BLOOD ORDERABLES Final Resu lt Performing Organization Address [facility] de Phone Number [facility] [address] [place] [address], [facility] 1 * Phosphorus (12/19/2024 12:15 PM EDT) Phosphorus 3.9 2.4 - 4.9 mg/dL [facility] 1 Blood Venous blood specimen / Unknown 12/19/2024 12:15 PM EDT 12/19/2024 Narrative [facility] - 12/19/2024 3:15 PM EDT Performed at: [address] [place] [address] [id number] Tax Intern: Jim Henning [facility], Phone: [phone] us Bridger Hernandez MD LAB BLOOD ORDERABLES Final Resu lt Performing Organization Address City/[facility]/ZIP Co de Phone Number [facility] [address] [place] [address], [facility] 1 * (ABNORMAL) Lactate dehydrogenase (12/19/2024 12:15 PM EDT) LDH 369(H) 110 - 250 U/L [facility] 1 Blood Venous blood specimen / Unknown 12/19/2024 12:15 PM EDT 12/19/2024 Narrative [facility] - 12/19/2024 3:15 PM EDT Performed at: [address] [place] [address] [id number] Tax Intern: Jim Henning [facility], Phone: [phone] us Bridger Hernandez MD LAB BLOOD ORDERABLES Final Resu lt Performing Organization Address [facility] Co de Phone Number [facility] [address] [place] [address], [facility] 1 * (ABNORMAL) Hemoglobin A1c (12/19/2024 12:15 PM EDT) HgbA1C 6.5(H) 4.8 - 5.6 % [facility] 1 Comment: Prediabetes: 5.7 - 6.4 Diabetes: >6.4 Glycemic control for adults with diabetes: <7.0 Blood Venous blood specimen / Unknown 12/19/2024 12:15 PM EDT 12/19/2024 Narrative [facility] - 12/20/2024 4:05 AM EDT Performed at: [address] [place] [address] [id number] Tax Intern: Iram Zambrano MD, Phone: [phone] us Bridger Hernandez MD LAB BLOOD ORDERABLES Final Resu lt [facility] [address] [place] [address], [facility] 1 * CK (aka CPK) (12/19/2024 12:15 PM EDT) CK Total 41 41 - 331 U/L [facility] 1 Blood Venous blood specimen / Unknown 12/19/2024 12:15 PM EDT 12/19/2024 Narrative [facility] - 12/20/2024 7:45 AM EDT Performed at: [address] [place] [address] [id number] Tax Intern: Iram Zambrano MD, Phone: [phone] Bridger Hernandez MD LAB BLOOD ORDERABLES Final Resu lt Performing Organization Address City/[facility]/ZIP Co de Phone Number [facility] [address] [place] [address], [facility] 1 * Hepatic function panel (12/19/2024 12:15 PM EDT) Pathologist [facility] Bilirubin, Direct 0.2 0.0 - 0.5 mg/dL [facility] 1 Blood Venous blood specimen / Unknown 12/19/2024 12:15 PM EDT 12/19/2024 Narrative [facility] - 12/19/2024 3:15 PM EDT Performed at: [address] [place] [address] [id number] Tax Intern: Jim Henning [facility], Phone: [phone] Bridger Hernandez MD LAB BLOOD ORDERABLES Final Resu lt [facility] [address] [place] [address], [facility] 1 * (ABNORMAL) Lipid panel (12/19/2024 12:15 PM EDT) Pathologist [facility] Cholesterol 146 100 - 199 mg/dL [facility] [...] AM EDT Performed at: 01 - [facility] [address] [id number] Tax Intern: Iram Zambrano MD, Phone: [phone] us Bridger Hernandez MD LAB BLOOD ORDERABLES Final Resu lt [facility] [address] [place] [address], [facility] 1 * ECG 12 lead [[facility]: Epiphany] Normal (12/19/2024 10:45 AM EDT) 12/19/2024 10:4 5 AM EDT Narrative [facility] STRESS/ECG EPIPHANY CARDIOSERVER - 12/19/2024 5:05 PM EDT [facility] Test Date: 2024-12-19 Pat Name: MATTHEW AVILA Department: [facility] Room: Gender: Male Separator Operator: : 1955 Requested By: BRIDGER HERNANDEZ Order Number: [id number] Reading MD: Lacho Bauer Measurements Intervals [place] Rate: 91 P: 59 OR: 145 QRS: 40 QRSD: 77 T: 24 QT: 339 QTc: 417 Interpretive Statements Sinus rhythm Probable anteroseptal infarct, old Compared to ECG 12/31/2023 07:37:42 Sinus rhythm now more clearly present Electronically Signed On 12-19-2024 17:05:32 EDT by Lacho Bauer us Bridger Hernandez MD ECG ORDERABLES Final Result [facility] STRESS/ECG EPIPHANY CARDIOSERVER * DOBUTAMINE STRESS ECHO (47361) (12/19/2024 9:38 AM EDT) 12/19/2024 8:40 AM EDT Narrative [facility] KRZYSZTOF ISCV - 12/19/2024 11:15 AM EDT Cardiovascular Imaging Hemodynamic Laboratory [address] [place] [address] Stress Echocardiogram Name: MATTHEW TORO Study Date: 12/19/2024 08:40 AM : 1955 Gender: Male Age: 69 yrs Ethnicity: OTHER Patient Location: [facility] Referring Physician: JOSE ANGEL NUNEZ Performed By: Osiel Michelle Ordering Physician: JOSE ANGEL NUNEZ Reason For Study: cardiac transplantation Height: 68 in Weight: 135 lb BSA: 1.7 m2 BP: 120/58 mmHg CPT/Quality/Location Stress Echo (88217). Stress Echo interp & report (62301). Supply - dobutamine. Location performed: Department. The [...] Russ MD - 12/19/2024 Cardi[facility]odynamicLaboratory [address] [place] [address] StressEchocardiogram Name: MARGARITA DOOLEYMATTHEW Whaley Study Date: 508:40 AM : 1955 Gender: Male Age: 69 yrs Ethnicity: OTHER Patient Location: [facility] Referring Physician: JOSE ANGEL NUNEZ Performed By: Osiel Michelle Ordering Physician: JOSE ANGEL NUNEZ Reason For Study: cardiac transplantation Height: 68 in Weight: 135 lb BSA: 1.7 m2 BP:120/58 mmHg CPT/Quality/Location Stress Echo (03969). Stress Echo interp & report (36679). Supply -dobutamine. Location performed: Department. The quality [...] Nunez NP CV ECHO PROCEDURES Final Result [facility]PORT[facility] KRZYSZTOF ISCV * Hepatitis C Virus RNA, Quantitative, RT-PCR (01/26/2024 10:30 AM EDT) HCV RNA by RT-PCR [facility] 01/27/2024 2:18 PM EDT [facility] Comment:Not Detected HCV RNA Viral Load, log [facility] [place] 01/27/2024 2:18 PM EDT [facility] Comment:Not Detected HCV RNA Viral Load, Interp Not Detected Not Detected [facility] 01/27/2024 2:18 PM EDT [facility] Blood Venous blood specimen / Unknown Venipuncture / Unknown 01/26/2024 10:30 AM EDT 01/26/2024 11:13 AM EDT Narrative [facility] - 01/27/2024 2:18 PM EDT This test was performed using the [employer] m HCV assay, performed on the [employer] m instrument. The lower limit of quantification is 12 IU/mL. Chi Barton MD LAB BLOOD ORDERABLES Final Resu lt Performing Organization Address [facility] de Phone Number [facility] [address] [place] [address], * Albumin, Urine, Random (Microalbumin Random, Including Creatinine) (11/26/2023 1:50 PM EDT) Albumin, urine (INT/EXT) <1.2 mg/dL 11/26/2023 2:44 PM EDT [facility] Creatinine, urine, random (INT/EXT) 47.40 24.00 - 392.00 mg/dL 11/26/2023 2:44 PM EDT [facility] Albumin/Creatini ne ratio 11/26/2023 2:44 PM EDT [facility] Comment:Unable to calculate due to below or above Analytical Measurement Range. Urine Urine specimen / Unknown Non-blood Collection / Unknown 11/26/2023 1:50 PM EDT 11/26/2023 1:50 PM EDT Pedro Kline MD LAB URINE ORDERABLES Maral l Result Performing Organization Address [facility] Co de Phone Number [facility] [address] [place] [address], from Last 3 Months or Most Recently Relevant to Health Maintenance Additional Health Concerns Active Problems Noted Date Diagnosed Date Autogenerated Problem 02/09/2025 Insurance MEDICARE PART A AND B [facility] A AND B HEALTH SAFETY NET Advance Directives Documents on File Type Date Recorded Patient Timber Rider Expl anation Advance Directives and Living Will 11/25/2023 Lloyd Ahmadi Health Care Proxy * Full Code (Latest Code Status on File) Date Activated Date Inactivated Comments 11/24/2023 12:16 AM 01/20/2024 1:17 PM Healthcare Agents on File Name Relationship Healthcare Agent Relationship Communication Aleisha Ahmadi Spouse Health Care Agent [email or web address] Lloyd Mandel Son First Alte rnate Health Care Agent Care Teams Household Chores Relationship Specialty Start Date End Date Name, MD Yoandy [address] [place] [address] PCP - General Aircraft Shipping Checker 11/12/23 Glenn Herman MD [address] [place] [address] Referring Physician Cardiology 11/12/23 Handley, Leon, ice house supervisor Separator Operator Pharmacy 12/31/23 Jennie Michelle, PharmD [address] [place] [address] Pharmacist Pharmacy 01/27/24 Bridger Hernandez MD [address] [facility] [address] [place] [address] Attending Physician Cardiology 12/19/24
--- OUTSIDE RECORDS SUMMARY | 2025-02-14 13:59 | XMS_ITS | Encounter Summary ---
Author Organization [facility] Address [address] [facility] [address] [place] [address] Care Team Providers Care Business Writer Name Role Phone Glenn Herman MD Unavailable [phone] Yoandy Tillman MD Primary Care Provider [phone] Edward Handley tobacco weigher Unavailable Unavailable Jennie Michelle PharmD Unavailable Juan Hutchinson MD Unavailable [phone] Reason for Visit * Reason Comments Med Change Request Encounter Details Date Type Department Care Team (Late st Contact Info) Description 03/17/2024 Refill [facility] Cardiac Subspecialty [address] [facility] [address] [place] [address] Charlie Barry MD [address] [place] [address] 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) Social History [...] - 03/17/2024 4:02 PM EST Filled at [facility] documented in this encounter Plan of Treatment Upcoming Encounters Date Type Department Care Team (Late st Contact Info) Description 02/22/2025 2:00 PM EST Office Visit [facility] Neurology [address] [place] [phone] Percy Kapoor MD [address] [address] 02/28/2025 6:50 AM EST Hospital Encounter [facility] Main OR [address] [place] [phone] Loren Hall MD [address] [place] [address] Cytomegalovirus infection, unspecified cytomegaloviral infection type 02/28/2025 8:50 AM EST - 02/28/2025 10:20 AM EST Surgery [facility] Main OR [address] [place] [phone] Loren Hall MD [address] [place] [address] Bronchoscopy with dilation [20880 (CPT )] 03/20/2025 12:00 PM EST Office Visit [facility] Cardiac Subspecialty [address] [facility] [address] [place] [phone] Charlie Barry MD [address] [place] [address] 05/15/2025 1:00 PM EST Office Visit [facility] Dermatology [address] [place] [address] Nelida Ayala MD [address] [place] [address] 07/12/2025 10:30 AM EDT Appointment [facility] Pulmonary Function Lab [address] [facility] [place] 5th Floor Room [address] [place] [phone] 07/12/2025 11:30 AM EDT Office Visit [facility] Pulmonary [address] [facility] [address] [place] [address] Daysi Fink MD [address] [facility] [address] [place] [phone] Scheduled Procedures Name Priority Associated Diagnoses Date/Ti me Bronchoscopy Tracheal stenosis 02/28/2025 8:50 AM EST documented as of this encounter Visit Diagnoses Diagnosis Heart replaced by transplant Cytomegalovirus infection, unspecified cytomegaloviral infection type Tracheal stenosis Other diseases of trachea and bronchus Cytomegalovirus infection, unspecified cytomegaloviral infection type documented in this encounter Care Teams Business Writer Relationship Specialty Start Date End Date Name, MD Yoandy [address] [place] [address] PCP - General House Nurse 11/12/23 Glenn Herman MD [address] [place] [address] Referring Physician Cardiology 11/12/23 Edward Handley CPhT Group Home Paraprofessional Pharmacy 12/31/23 Jennie Michelle, RadhaD [address] [place] [address] Pharmacist Pharmacy 01/27/24 Juan Hutchinson MD [address] [place] [address] [place] [address] Attending Physician Cardiology 12/19/24 documented as of this encounter
--- OUTSIDE RECORDS SUMMARY | 2025-02-14 13:59 | XMS_ITS | Clinical Summary ---
Author Organization [employer] Address [address] [facility] 7t [place] [address] Care Team Providers Care Social Services Technician Name Role Phone Name, Yoandy LUGO Primary Care Provider [phone] Allergies Active Allergy Reactions Criticality Noted Date [...] bedtime. 4 Active [employer] (BD [employer]ps [employer]) [facility] For disposal of needles and lancets 4 [...] Units under the skin at bedtime. Active calcium carbonate (Tums) 500 MG chewable tablet Chew 1 tablet (500 mg) 2 times daily. 4 02/05/20 25 cholecalcifero l (Vitamin D-3) 25 MCG (1000 UT) capsule Take 1 capsule (25 mcg) by mouth Once per day. 02/05/20 25 Active Problems Problem Noted Date Diagnosed Date Hospital discharge follow-up 10/06/2024 Pulmonary nodules 07/27/2024 Cytomegalovirus infection ([facility]) 06/30/2024 Chronic cough 06/28/2024 Fever 06/28/2024 Conjunctivitis of right eye 05/04/2024 Immunosuppressed status 05/04/2024 Night sweats 05/04/2024 Preventative health care 05/04/2024 Disease due to severe acute respiratory syndrome coronavirus 2 (SARS-CoV-2) 04/19/2024 Overview (07/27/2024): Problem added by Discern Expert Sensorineural hearing loss (SNHL) of both ears 0 04/15/2024 Observed seizure-like activity ([facility]) 024 Heart transplant recipient ([facility]) 02/05/2024 Overview (02/05/2024): #s/p OHT 12/28/23 #s/p impella explant #s/p ICD explant #hx NICM Seizure disorder ([facility]) 02/05/2024 Immunocompromised 02/05/2024 Sarcoidosis 01/27/2024 Alteration in self-care ability 01/05/2024 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 S/p multiple dilations in the past. Able to pass a 7.0 ETT, but no larger. Decreased functional mobility and endurance 11/06 Non-restorable tooth 11/19/2023 History of [place] (myocardial infarction) 10/20/2023 Memory [...] unspecifi ed 04/01/2023 Atrial fibrillation with RVR ([facility]) History of cardiac arrest 02/08/2023 Chronic combined systolic and diastolic heart fa ilure 02/08/2023 Overview (11/02/2023): Last Assessment & Plan: reports he's up a few pounds from his baseline weight, worsening leg swelling over the last few days. Compliant with Torsemide - taking full dose per 's report Asked patient to call his Aircraft Engine Assembler regarding his increased weight/swelling for further recommendations. Dysphagia 02/08/2023 Positive colorectal cancer screening using Colog uard test 02/04/2023 Overview (11/03/2023): Negative Colonoscopy 06/2023: urgical Pathology Exam - Order: [id number] Component 4 mo ago Case Report Surgicals Case: [id number] Authorizing Provider: Donny Encarnacion Collected: 2023 0843 [...] IHC, [place] [address]. [facility] Specimen Collected: 06/19/23 08:43 Performed by: [...] were answered. Coronary artery disease invo lving [place] coronary artery of [place] heart without angina pectoris 11/14/2022 Overview (11/02/2023): Last Assessment & Plan: - nonobstructive disease - continue medical therapy with aspirin, statin, BB - denies angina Stridor 11/13/2022 Overview (11/02/2023): Last Assessment & Plan: Improved after last dilation in April 2023. Mild stridor noted today in clinic Discussed with his primary burlap bag sewer Dr. Sanches and will work to get [...] tachycardia, unspecified (CMS/HCC) 0 04/06/2022 Other termite exterminator helper (current) drug [...] from dual-chamber [place] [facility] [place]. Follows at [facility] cardi Systolic dysfunction 03/13/2022 History of bradycardia 03/13/2022 Family history of prostate cancer 03/13/2022 Complete heart block (CMS/HCC) 04/06/2020 Overview (11/02/2023): Added automatically from request for surgery [id number] Last Assessment & Plan: History of biventricular pacemaker that was upgraded to BOOK TRIMMER defibrillator in September. Device interrogated today [...] call cardiology office as well. Aspiration pneumonia ([facility]) 02/08/2023 02/05/2024 Hyperlactatemia 02/08/2023 11/03/2023 Viral pneumonia 02/08/2023 02/05/2024 Klebsiella pneumoniae (k. pn eumoniae) as the cause of diseases classified elsewhere 01/30/2023 1 04/06/2023 Orthostatic hypotension 01/25/2023 11/04/2023 Multiple wounds 10/10/2022 11/03/2023 Elevated troponin 09/16/2022 [...] starting statin -No need for ischemic evaluation joint terminal attack controller (current) use of o ral hypoglycemic drugs [...] DEPARTMENT Provider, Generic External Data 11/24/2024 Telephone [facility] [address] [place] [address] Americo Stiles [place] oct recalls from Last 3 Months [...] EST Office Visit [facility] [address] [place] [address] Name, MD Yoandy [address] [place] [address] Health Maintenance Due Date Last Done Comments [...] 2024 12/16/2023, 2022 Lipid Panel 01/25/2025 01/26/2024, 0307/2022, 06/23/2022, Additional history exists Diabetes: Foot Exam [...] Whole Blood 106 60 - 115 mg/dL [facility] Comment:METER #: [id number] 0Testing performed in the Endocrinology Department [address] , [address], [facility]. 01/27/2025 3:15 PM EDT 01/27/2025 3:23 PM EDT us Generic External Data Provider LAB BLOOD ORDERAB LES Final Result [facility] [address] [place] [phone] * Gross and Microscopic Level 3 (01/19/2025 10:42 AM EDT) 01/19/2025 10:4 2 AM EDT 01/20/2025 9:10 AM EDT Narrative [facility] - 01/23/2025 2:18 PM EDT ----- ------- Name: Matthew Toro Age/Sex: 69/M : 1955 Unit#: [id number] Attend Dr: Tamiko Ceballos DPM Re01/19/25 Status: DEP REF Location: [facility] Disch: ----- ------- SPEC : [id number] RECD: 01/20/25 STATUS: DON PHAN NUM: [id number] TIM: 01/19/[address] [facility] [address]: Tamiko Ceballos DPAnderson ENTERED: 01/20/25 SP TYPE: Surgical OTHR DR: [...] developed and their performance characteristics determined by [facility]. They have not been cleared or approved by the U.S. Food and Drug Administration (FDA). However, the FDA has determined that such clearance or approval is not necessary. This laboratory is certified under the Clinical Laboratory Improvement Amendments of 1988 (CLIA) as qualified to perform high complexity clinical laboratory testing. Copies To: Yoandy Tillman MD [address] [address] CONTINUED ON NEXT PAGE ----- ------- Name: Matthew Toro/Sex: 69/M : 1955 Unit#: [id number] Attend Dr: Tamiko CeballosM Re01/19/25 Status: DEP REF Location: HO.LNP Disch: ----- ------- SPEC : [id number] RECD: 01/20/25 STATUS: DON PHAN NUM: [id number] TIM: 01/19/[address] [facility] [address]: Tamiko Ceballos DPM ENTERED: 01/20/25 SP TYPE: Surgical OTHR DR: Yoandy Tillman MD ORDERED: Gross Micro L3 Copies To: (Continued) Tamiko CeballosM [facility] [place] [address] [email or web address] ----- ------- Signed (signature on file) Shruti Jean 01/23/25 1418 ----- ------- END OF REPORT Generic External Data Provider LAB CYTOLOGY ORDE RABLES Final Result Performing Organization Address City/[facility]/ZIP Co de Phone Number [facility] [address] [place] [address] [phone] * POCT HGB A1C (07/27/2024 10:59 AM EDT) Hemoglobin A1C 5.7 4.0 - 6.0 % QC Media Lot # [id number] Lot# Expiration Date Blood 07/27/2024 10:5 9 AM EDT Yoandy Tillman MD POINT OF CARE TEST ENTER/EDIT OR DERABLES Final Result * Albumin, Random Urine W/Creatinine (04/14/2024 11:04 AM EST) Creatinine, Urine 109.08 mg/dL [facility] Microalbumin Urine 6.0 mg/L [facility] Microalbum Creatinine Ratio Ur 5.5 <30 ug/mg cr [facility] Comment:Albumin/Creatinine R at Reference Ranges: Normal: < 30 ug/mg creatinine Microalbuminuria: 30 - 300 ug/mg creatinineClinical Albuminuria: > 300 ug/mg creatinine Urine (Urine, Random) 04/14/2024 11:04 AM EST 04/14/2024 1:04 PM EST Yoandy Tillman MD LAB URINE ORDERABLES Final Resul t Performing Organization Address City/[facility]/ZIP Co de Phone Number [facility] [address] [place] [address] [phone] * Lipid Panel, Standard (06/27/2022 9:53 AM EDT) Triglycerides 84 mg/dL [facility] Comment:Desirable Triglyceri de: less than 150 mg/dLBorderline High Triglyceride 150-199 mg/dLHigh Triglyceride: 200-499 mg/dLVery High Triglyceride: greater than or equal to 5OO mg/dL Cholesterol 154 mg/dL [facility] Comment:Desirable Cholestero l: less than 200 mg/dLBorderline High Cholesterol: 200-239 mg/dLHigh Cholesterol: greater than 239 mg/dL LDL Cholesterol Calculated 104 mg/dl [facility] Comment:Desirable LDL: less than 100 mg/dLNear Optimal/Above Optimal LDL: 110- 129 mg/dLBorderline High LDL: 130-159 mg/dLHigh LDL: 160-189 mg/dLVery High LDL: greater than or equal to 190 mg/dL HDL Cholesterol 34 mg/dL [facility] Comment:Desirable HDL: great er than 40 mg/dL Note: This HDL assay may give artificially low results in patients with liver disease. 06/27/2022 9:53 AM EDT 06/27/2022 9:53 AM EDT [facility] External Provider LAB BLO OD ORDERABLES Final Result [facility] [address] [place] [address] [phone] from Last 3 Months or Most Recently Relevant to Health [place] [id number] [facility] MEDEX MEDICARE SUPPLEMENT Care Teams Social Services Technician Relationship Specialty Start Date End Date Name, MD Yoandy [address] [place] [phone] PCP - General Internal Medicine 10/19/23 Roberto Lyudmila 01/19/24
--- OUTSIDE RECORDS SUMMARY | 2025-02-14 13:59 | XMS_ITS | Data Portability ---
Author Organization [place] - [facility], Allergy Address 100 [facility] 100 [place] [address] Assessment Encounter Date Assessment Date Assessment LastModified by Organization Details LastModified Time 02/25/2024 02/25/2024 68-year-old male presents today for evaluation of stridor and tracheal stenosis. Symptoms seem to worsen about 3 weeks ago following dilation in November. Of note he had heart transplant about 2 months ago at [facility]. Flexible laryngoscopy did not reveal any vocal [...] heart transplant. Thank you. 2023 Tarsha wagner [facility], [address] [facility], [place], [address], 09:56:34 Procedures None recorded. Surgeries None recorded. Imaging None recorded. Medication Orders None recorded. Patient TargetsNo targets recorded. Patient InstructionsNo instructions recorded. Reason for Referral Recruitment Internship Referral for T gaby stenosis following tracheostomy Established patient of Dr Alegre. Needs follow up appt/repeat endoscopy. Patient has recent heart transplant. Thank you. Referring Physician: Sandip Regalado, Otolaryngology, Encounter Date: 02/25/2024 Problems Name Problem SNOMED Code Status Onset Date Resolution Date Notes Provider Name and Address Organization Details Recorded Time Tracheal stenosis following tracheostomy 10523096 Active 2023 SANDIP REGALADO MD 100 [facility],[place] [address], [place], [address], [facility] - [facility] 4 12:10:02 Sensorineural hearing loss of bilateral ears 764136365 Active 2024 BORA GRAY, [facility] [address] [facility],[place] [address], [place], [address], [facility] 5 16:02:33 Problem Notes None recorded. Procedures Surgical History Date Name Laterality Status Provider Name and Address Organization Details Recorded Time 04/15/19 25 Comp Audio with Tymps - 26052 & 91081 completed BORA GRAY [address],[place] [address], [place], [address], [facility] 04/15/2024 16:02:37 02/25/20 24 Fiberoptic Laryngoscopy (Comprehensive) completed SANDIP REGALADO MD [address] [place] [address],[address], [address], [facility] 02/25/2024 12:11:38 Imaging Results None recorded. [...] Not Available Not Available Comfort EZ Pen Warren 32 gauge x 5/32 active Not Available [...] Updated DateTime 04/15/2024 172.72 cm 20.2 kg/m2 88656.79 g Manda Ly [place] - [facility] 04/15/2024 16:28:34 Date Recorded Body height Body mass index (BMI) Body weight Provider Name and Address Organization Details Last Updated DateTime 02/25/2024 172.72 cm 26.8 kg/m2 07158.26 g Manda Ly [facility] 02/25/2024 11:47:14 Social History None recorded. Functional Status None recorded. Mental Status None recorded. Family History Nothing Reported. Medical History Condition Response Heart Problems Y Diabetes Y Hyperlipidemia Y Past Encounters Encounter ID Performer Location Encounter Start Date Encounter Closed Date Diagnosis/Indication Diagnosis SNOMED-CT Code Diagnosis ICD10 Code Diagnosis IMO Codes Diagnosis Note [id number] SANDIP REGALADO MD [facility] [address] [address] 02/25/2024 11:26:24 02/25/2024 12:26:39 Tracheal stenosis following tracheostomy 99367397 J95.03 [id number] SANDIP REGALADO MD [facility] [address] [address] 04/15/2024 15:37:29 04/15/2024 16:57:22 Sensorineural hearing loss of bilateral ears 816014890 H90.3 68 yo M with a history [...] and there was likely some irritation here. [id number] JACQUE LUGO [facility] [address] [address] 04/15/2024 15:59:22 04/18/2024 07:41:17 Sensorineural hearing loss of bilateral ears 614267271 H90.3 Right Ear:Normal hearing through 1.5K Hz [...] Name 06/15/2024 2 [place] [id number] Matthew L Avila [id number] Matthew Donny Avila Avila 06/15/2024 1 [place] [employer] Matthew Avila Avila [id number] Matthew Donny Avila Avila 06/15/2024 2 [place] [facility] Matthew L Avila Avila [id number] Matthew Donny Avila Avila Notes Date Note [...] for lung volume SANDIP REGALADO MD [address] [place] [address],[address], [address], [facility] - [facility] 02/26/2024 10:58:54 04/15/2024 text/html Starting feeling numb on the side of the ear right after his surgeryTTP over jaw Has seen Dr. Walton. SANDIP REGALADO MD [address] [place] [address],[address], [address], [facility] - [facility] 04/18/2024 07:25:33
--- OUTSIDE RECORDS SUMMARY | 2025-02-14 13:59 | XMS_ITS | Encounter Summary ---
Author Organization [facility] Address [address] [facility] [address] [place] [address] Care Team Providers Care Electronic Tech Name Role Phone Glenn Herman MD Unavailable [phone] NameYoandy MD Primary Care Provider [phone] Edawrd Handley sales account specialist Unavailable Unavailable Jennie Michelle PharmD Unavailable Juan Hutchinson MD Unavailable [phone] Encounter Details Date Type Department Care Team (Late st Contact Info) Description 12/20/2024 Results Follow-Up [facility] Infectious Disease [address] [facility] 3rd [place] [address] Lena Cortes, MIGRATION SPECIALIST [address] [place] [phone] Social History Tobacco Use Types Packs/Day Years [...] place to sleep or slept in a longterm (including now)? No 11/26/2023 Sex and Gender [...] Description 02/22/2025 2:00 PM EST Office Visit [facility] Neurology [address] [place] [address] Percy Kapoor MD [address] [address] 02/28/2025 6:50 AM EST Hospital Encounter [facility] OR [address] [place] [phone] Loren Hall MD [address] [place] [address] Cytomegalovirus infection, unspecified cytomegaloviral infection type 02/28/2025 8:50 AM EST - 02/28/2025 10:20 AM EST Surgery [facility] Main OR [address] [place] [phone] Loren Hall MD [address] [place] [address] Bronchoscopy with dilation [59027 (CPT )] 03/20/2025 12:00 PM EST Office Visit [facility] Cardiac Subspecialty [address] [facility] 6th [place] [address] Charlie Barry MD [address] [place] [address] 05/15/2025 1:00 PM EST Office Visit [facility] Dermatology [address] [place] [address] Nelida Ayala MD [address] [place] [address] 07/12/2025 10:30 AM EDT Appointment [facility] Pulmonary Function Lab 800 [facility] [address] [facility] 5th Floor Room 511 [place] [phone] 07/12/2025 11:30 AM EDT Office Visit [facility] Pulmonary [address] [facility] [address]rd [place] [phone] Daysi Fink MD [address] [facility] [address] [place] [phone] Scheduled Procedures Name Priority Associated Diagnoses Date/Ti me Bronchoscopy Tracheal stenosis 02/28/2025 8:50 AM EST documented as of this encounter Visit Diagnoses Not on filedocumented in this encounter Care Teams Electronic Tech Relationship Specialty Start Date End Date Name, MD Yoandy [address] [place] [address] PCP - General Nursing Program Coordinator 11/12/23 Glenn Herman MD [address] [place] [address] Referring Physician Cardiology 11/12/23 Edward Handley CPhT Graphics Programmer Pharmacy 12/31/23 Jennie Michelle, RadhaD [address] [place] [address] Pharmacist Pharmacy 01/27/24 Juan Hutchinson MD [address] [place] [address] [address] [place] [address] Attending Physician Cardiology 12/19/24 documented as of this encounter
--- OUTSIDE RECORDS SUMMARY | 2025-02-14 13:59 | XMS_ITS | Encounter Summary ---
Author Organization [employer] Address [address] [facility] 7t [place] [address] Care Team Providers Care Electrical Checkout Mechanic Name Role Phone Name, Yoandy LUGO Primary Care Provider [phone] Name, Yoandy LUGO Primary Care Provider [phone] Reason for Visit * Reason Onset Date Comments FYI 10/01/2022 Encounter Details Date Type Department Care Team ([facility] st Contact Info) Description 10/01/2022 Telephone [facility] MEDICINE [address] [place], [place] [phone] Name, MD Yoandy [address] [place] [address] FYI Social History Tobacco Use Types Packs/Day [...] 10/01/2022 3:26 PM EDT Tc from spouse [facility] facility that patient during their vacation in [place] had two Heart Attacks and is currently hospitalized since 09/15/2022 at the [facility] documented in this encounter Plan of Treatment Upcoming Encounters Date Type Department Care Team (Late st Contact Info) Description 02/20/2025 10:00 AM EST Office Visit [facility] MEDICINE [address] [place] [address] Name, MD Yoandy [address] [place] [address] documented as of this encounter Visit Diagnoses Not on filedocumented in this encounter Care Teams Electrical Checkout Mechanic Relationship Specialty Start Date End Date Name, MD Yoandy [address] [place] [address] PCP - General Family Medicine 01/18/21 06/04/23 Name, MD Yoandy [address] [place] [address] PCP - General Internal Medicine 10/19/23 [facility] 01/19/24 documented as of this encounter
--- OUTSIDE RECORDS SUMMARY | 2025-02-14 13:59 | XMS_ITS | Clinical Summary ---
Author Organization [employer] [facility] Address [facility] Sensitive [address] [place] [address] Phone Care Team Providers Care Staff Midwife/Apprenticeship Director Name Role Phone Name, Yoandy LUGO Primary Care Provider [phone] Social History Tobacco Use Types Packs/Day Years [...] patient's age to complete this topic IPV VACCINES Aged Out No longer eligi ble based on patient's age to complete this topic MENINGOCOCCAL VACCINES (ACWY) Aged Out No longer eligible based on patient's age to complete this topic MENINGOCOCCAL VACCINES (B) Aged Out N o longer eligible based on patient's age to complete this topic Medical Devices Not on file Insurance MEDICARE PART A & B [facility] F[address] [place], [place] [id number] MEDICARE PART A & B [facility] A & B [facility] FULL MEDICARE PART A & B [employer] SAFETY NET FULL MEDICARE PART A & B HEALTH SAFETY NET FULL Member Subscriber Plan / Payer (Ef fective 2023-Present) Name:Avila Matthew Avila Relation to Subscriber:Self Name:Margarita Langfordyazan Matthew Donny Payer ID:Not on file Group ID:Not on file Type:Medicaid Address: [address] MED[address]ARE PART A & B [facility] FULL Member Subscriber Plan / Payer (Ef fective 2023-Present) Name:Margarita Avila Matthew Donny Relation to Subscriber:Self Name:Avila Margarita Matthew Donny Payer ID:Not on file Group ID:Not on file Type:Medicaid Address: [address] Care Teams Staff Midwife/Apprenticeship Director Relationship Specialty Start Date End Date Name, MD Yoandy [address] [place] [address] PCP - General Internal Medicine 11/02/23 Additional Source Comments The information contained in this document represents components of the legal health record. It is not the complete legal health record.[facility]
--- OUTSIDE RECORDS SUMMARY | 2025-02-14 13:59 | XMS_ITS | Encounter Summary ---
Author Organization [facility] Address 800 [facility] 520 [place] [address] Care Team Providers Care Supervisor Fish Bait Processing Name Role Phone Glenn Herman MD Unavailable [phone] Name, Yoandy LUGO Primary Care Provider [phone] Edward Handley data technician Unavailable Unavailable Jennie Michelle PharmD Unavailable [phone] Juan Hutchinson MD Unavailable [phone] Encounter Details Date Type Department Care Team (Late st Contact Info) Description 12/29/2023 Lab Requisition [facility] HLA Lab 800 [place] [phone] Pedro Kline MD [address] [facility] [address] [place] [address] Cardiomyopathy, unspecified (Multi-HCC) Social History Tobacco Use [...] Description 02/22/2025 2:00 PM EST Office Visit [facility] Neurology [address] [place] [phone] Percy Kapoor MD [address] [address] 02/28/2025 6:50 AM EST Hospital Encounter [facility] Main OR [address] [place] [phone] Loren Hall MD [address] [place] [address] Cytomegalovirus infection, unspecified cytomegaloviral infection type 02/28/2025 8:50 AM EST - 02/28/2025 10:20 AM EST Surgery [facility] Main OR [address] [place] [phone] Loren Hall MD [address] [place] [address] Bronchoscopy with dilation [42041 (CPT )] 03/20/2025 12:00 PM EST Office Visit [facility] Cardiac Subspecialty [address] [facility] 6th [place] [phone] Charlie Barry MD [address] [place] [address] 05/15/2025 1:00 PM EST Office Visit [facility] Dermatology 260 [place] [address] Nelida Ayala MD 800 [place] [address] 07/12/2025 10:30 AM EDT Appointment [facility] Pulmonary Function Lab [address] [facility] [address] 5th Floor Room 511 [place] [phone] 07/12/2025 11:30 AM EDT Office Visit [facility] Pulmonary [address] [facility] [address] 3rd [place] [phone] aDysi Fink MD 800 [facility] [address] [place] [phone] Scheduled Procedures Name Priority Associated Diagnoses Date/Ti me Bronchoscopy Tracheal stenosis 02/28/2025 8:50 AM EST documented as of this encounter Procedures Procedure Name Priority Date/Time Associated Diagnosis Comments HLA CONSULTATION Routine 12/26/2023 11:5 6 PM EDT Cardiomyopathy, unspecified (Multi-HCC) documented in this encounter Results * HLA Consultation (12/26/2023 11:56 PM EDT) PDF Attached See PDF Document 01/02/2024 12:57 PM EDT [facility] HLA LAB Blood Venous blood specimen / Unknown 12/26/2023 11:56 PM EDT 12/29/2023 10:28 PM EDT us Pedro Kline MD LAB BLOOD ORDERABLES Maral garcia Result [facility] HLA LAB [address] [place] [address], documented in this encounter Visit Diagnoses Diagnosis Cardiomyopathy, unspecified Cytomegalovirus infection, unspecified cytomegaloviral infection type Tracheal stenosis Other diseases of trachea and bronchus Cytomegalovirus infection, unspecified cytomegaloviral infection type documented in this encounter Care Teams Supervisor Fish Bait Processing Relationship Specialty Start Date End Date Name, MD Yoandy [address] [place] [address] PCP - General Manager Statistical Programming 11/12/23 Glenn Herman MD [address] [place] [address] Referring Physician Cardiology 11/12/23 Edward Handley CPhT State Farm Agent Pharmacy 12/31/23 Jennie Michelle, PharmD [address] [place] [address] Pharmacist Pharmacy 01/27/24 Juan Hutchinson MD [address] [place] [address] [place] [address] Attending Physician Cardiology 12/19/24 documented as of this encounter
--- OUTSIDE RECORDS SUMMARY | 2025-02-14 13:59 | XMS_ITS ---
Author Organization [facility] Address [address] [facility] [address] [place] [address] Care Team Providers Care Manager Business Information Name Role Phone Glenn Herman MD Unavailable NameYoandy MD Primary Care Provider [phone] Edward Handley CPhT Unavailable Unavailable Jennie Michelle PharmD Unavailable [phone] Juan Hutchnison MD Unavailable [phone] RxSp Transplant Status:Enrolled (Active) Start date:12/31/2023 [...] Name Relationship Phone Edward Handley CPhT(Responsible Staff) Fire Hazard Inspector Jennie Michelle PharmD Pharmacist [phone] Continued Care and Services Coordination
--- OUTSIDE RECORDS SUMMARY | 2025-02-14 13:59 | XMS_ITS | Encounter Summary ---
Author Organization [facility] Address [address] [facility] [address] [place] [address] Care Team Providers Care Oenologist Name Role Phone Glenn Herman MD Unavailable [phone] Name, Yoandy LUGO Primary Care Provider [phone] Edward Handley hair and makeup designer Unavailable Unavailable Jennie Michelle PharmD Unavailable [phone] Juan Hutchinson MD Unavailable [phone] Encounter Details Date Type Department Care Team (Late st Contact Info) Description 02/09/2025 Telephone [facility] Infectious Disease 260 [facility] 3rd [place] [address] Lena Cortes, RAILROAD CAR PAINTER [address] [place] [address] Social History Tobacco Use Types [...] 12:00 PM EST Through the aide of Nepalese interpretor Jeannie #[id number] left message reminding aminta to go for weekly CMV DNA. He will need to go weekly until 03/21. Lena Cortes NP 02/09/2025 12:01 PM documented in this encounter Plan of Treatment Upcoming Encounters Date Type Department Care Team (Late st Contact Info) Description 02/22/2025 2:00 PM EST Office Visit [facility] Neurology [address] [place] [phone] Percy Kapoor MD [address] [address] 02/28/2025 6:50 AM EST Hospital Encounter [facility] Main OR [address] [place] [phone] Loren Hall MD [address] [place] [address] [address] [place] [address] Cytomegalovirus infection, unspecified cytomegaloviral infection type 02/28/2025 8:50 AM EST - 02/28/2025 10:20 AM EST Surgery [facility] Main OR [address] [place] [phone] Loren Hall MD 800 [facility] [address] [place] [address] Bronchoscopy with dilation [42046 (CPT )] 03/20/2025 12:00 PM EST Office Visit [facility] Cardiac Subspecialty 860 [facility] 6th [place] [phone] Charlie Barry MD 800 [place] [address] 05/15/2025 1:00 PM EST Office Visit [facility] Dermatology 260 [place] [address] Nelida Ayala MD 800 [place] [address] 07/12/2025 10:30 AM EDT Appointment [facility] Pulmonary Function Lab [address] [facility] [address] 5th Floor Room [address] [place] [phone] 07/12/2025 11:30 AM EDT Office Visit [facility] Pulmonary 260 [facility] [address] [facility] 3rd [place] [phone] Daysi Fink MD 800 [facility] [address] [place] [address] Scheduled Procedures Name Priority Associated Diagnoses Date/Ti [...] documented as of this encounter Care Teams Oenologist Relationship Specialty Start Date End Date Name, MD Yoandy [address] [place] [address] PCP - General Top Frame Maker 11/12/23 Glenn Herman MD [address] [place] [address] Referring Physician Cardiology 11/12/23 Edward Handley, hair and makeup designer [employer] Player Pharmacy 12/31/23 Jennie Michelle, PharmD [address] [place] [address] Pharmacist Pharmacy 01/27/24 Juan Hutchinson MD [address] [place] [address] [place] [address] Attending Physician Cardiology 12/19/24 documented as of this encounter
[2025-02-15 21:14] LABS: CMV DNA Qn PCR <1.54 DETECTED Log IU/mL (NOT DETECTED)
== END 2025-02-14 12:00 | disposition home or self-care (01) ==
LOC: HO.LAB 11:59
PROVIDERS: Visit Provider Nurse Practitioner Family
DX: E11.8 Type 2 diabetes mellitus with unspecified complications (principal); B25.9 Cytomegaloviral disease, unspecified
CPT/HCPCS: 36415; 87497; 99211

== ENCOUNTER 2025-02-14 13:49 | Outpatient (AMB) | payer MEDICARE, SELFPAY ==
--- NOTE | 2025-02-14 14:29 | MHC.AMDMED ---
Intake Intake Visit Reasons: T2DM/pt interested in pump Trailhead Maintenance Worker Required: Yes Trailhead Maintenance Worker Language: Carton Stamper Name: Fito Kohler Accompanied by: Spouse Allergies lisinopril Allergy (Mild, Verified 01/27/25 15:18) Swelling HPI Comprehensive Diabetes Asmnt Most Recent Diabetes Results: Microalb/Creat Ratio, (<30) 5.5 ug/mg cr 04/14/24 Cholesterol 154 mg/dL 06/27/22 HDL Cholesterol 34 mg/dL 06/27/22 Triglycerides 84 mg/dL 06/27/22 Creatinine, (0.5-1.4) 0.99 mg/dL 01/27/25 BUN, (9-16) 12 mg/dL 01/27/25 Sodium, (135-145) 146 mmol/L H 01/27/25 Potassium, (3.3-5.1) 4.2 mmol/L 01/27/25 Chloride, (96-108) 110 mmol/L H 01/27/25 Carbon Dioxide, (22-29) 31 mmol/L H 01/27/25 Calcium, (8.4-10.2) 9.7 mg/dL Δ 01/27/25 AST, (5-37) 10 U/L 01/27/25 ALT, (0-40) 15 U/L 01/27/25 Total Protein, (6.5-8.0) 6.5 g/dL 01/27/25 Albumin, (3.5-5.0) 4.5 g/dL 01/27/25 [facility] Medical History (Updated 01/19/25 @ 10:53 by Tamiko Ceballos DPM) Varicose veins of both lower extremities Tinea unguium Nail disorder Nail dystrophy Diabetic neuropathy Diabetes Pacemaker Surgical History Hx of heart transplant History of cardiac catheterization (~10/2021) History of cataract surgery Family History Father Diabetes Heart problem Brother Heart attack Social History Alcohol intake: never Patient Tobacco Use Status: Never used Tobacco Assessment & Plan Assessment & Plan (1) Type 2 diabetes mellitus with unspecified complications: Code(s): E11.8 - Type 2 diabetes mellitus with unspecified complications Plan: Pump Assessment: Type of DM: Type 2 Previous DKA: No Current Insulin Rx: MDI Patient takes insulin as prescribed: no, at last visit with Dr. Anselmo Briones reduced Lantus from 20 units to 16 units, however patient has continued to take Lantus 19 units and still experiencing overnight hypoglycemia At today's visit patient agreed to reduce Lantus to 16 units daily Patient? checks BG freestyle Jaswinder 3 sensor Downloaded meter today Patient? reports glycemic control as: good Most recent Hgb A1C: 6.5% Frequency of low B-5 times weekly overnight Low BG treatment: Fruit juice Frequency of high BG: In the evenings after last meal of the day Does patient check Ketones? Did not review at today's visit will review at next Has pt been on a pump in the past? No Reviewed insulin pump basics today with Patient. Explained pros and cons of insulin pumps. Showed pt various pumps, infusion sets, and cgms currently available. Reviewed need to wear pump 24/7 and need to change infusion set every 3 days. Also stressed importance of frequent BG checks, 4x daily minimum or use pump that is integrated with CGM.? TDD:32 Patient demonstrated motivation for continued insulin pump education and understands the need to complete education prior to starting insulin pump for best outcome. At today's visit patient and his partner seemed somewhat overwhelmed by all the different choices in insulin pump therapy. Explained to patient and his partner that we can take our time and they can make follow-up appointment to discuss insulin pump therapy further Instructed them to write down questions and bring them to next visit. Portions of this note were created using voice recognition software, please excuse any words or phrases that may have been misinterpreted. Patient Instructions: Ajuste Lantus a 16 unidades diarias Si no est? comiendo, no violete Virgilio. Coding Level of Care Code Est Pt Level 1 (71752) Diagnoses Type 2 diabetes mellitus with unspecified complications E11.8
== END 2025-02-14 14:57 | disposition home or self-care (01) ==
LOC: HO.ENCR 13:50
PROVIDERS: PCP Internal Medicine Geriatric Medicine; Visit Provider Registered Nurse Diabetes Educator
DX: E11.8 Type 2 diabetes mellitus with unspecified complications (principal)

== ENCOUNTER 2025-02-20 11:00 | Outpatient (REF) | payer MEDICARE, SELFPAY ==
[2025-02-22 19:44] LABS: CMV DNA Qn PCR <1.54 DETECTED Log IU/mL (NOT DETECTED)
== END 2025-02-20 11:01 | disposition home or self-care (01) ==
LOC: HO.LABR 11:00
PROVIDERS: Visit Provider Nurse Practitioner Family
DX: B25.9 Cytomegaloviral disease, unspecified (principal)
CPT/HCPCS: 36415; 87497

== ENCOUNTER 2025-02-27 10:50 | Outpatient (REF) | payer MEDICARE, SELFPAY ==
[2025-03-02 05:18] LABS: CMV DNA Qn PCR <1.54 DETECTED Log IU/mL (NOT DETECTED)
== END 2025-02-27 10:51 | disposition home or self-care (01) ==
LOC: HO.LABR 10:50
PROVIDERS: Visit Provider Nurse Practitioner Family
DX: B25.9 Cytomegaloviral disease, unspecified (principal)
CPT/HCPCS: 36415; 87497

== ENCOUNTER 2025-03-07 10:14 | Outpatient (REF) | payer MEDICARE, SELFPAY ==
--- OUTSIDE RECORDS SUMMARY | 2025-03-07 11:42 | XMS_ITS | Clinical Summary ---
Author Organization [employer] [facility] Address [facility] [employer] [address] [place] [phone] Phone Care Team Providers Care Refractive Surgeon Name Role Phone Name, Yoandy LUGO Primary Care Provider [phone] Social History Tobacco Use Types Packs/Day Years [...] file Insurance MEDICARE PART A & B [facility] [address] [place], [place] [id number] MEDICARE PART A & [place] [id number] [facility] [address] [place], [place] [id number] MEDICARE PART A & B [facility] FULL Member Subscriber Plan / Payer (Ef fective 2023-Present) Name:Matthew Toro Relation to Subscriber:Self Name:Matthew Toro Payer ID:Not on file Group ID:Not on file Type:Medicaid Address: [address] MEDICARE PART A & B [employer] SAFETY NET FULL MEDICARE PART A & B [facility] SAFETY NET FULL Member Subscriber Plan / Payer (Ef fective 2023-Present) Name:Matthew Toro Relation to Subscriber:Self Name:Avila Margarita Matthew Donny Payer ID:Not on file Group ID:Not on file Type:Medicaid Address: [address] [place] [id number] [facility] FULL B Care Teams Refractive Surgeon Relationship Specialty Start Date End Date Name, MD [address] [place] [address] PCP - General Internal Medicine 11/02/23 Additional Source Comments The information contained in this document represents components of the legal health record. It is not the complete legal health record.[facility]
--- OUTSIDE RECORDS SUMMARY | 2025-03-07 11:42 | XMS_ITS | Clinical Summary ---
Author Organization [facility] Address [address] [facility] [address] [place] [address] Care Team Providers Care Reconsignment Clerk Name Role Phone Glenn Herman MD Unavailable [phone] Yoandy Tillman MD Primary Care Provider [phone] Edward Handley tire curer Unavailable Unavailable Jennie Michelle PharmD Unavailable [phone] Bridger Hernandez MD Unavailable [phone] Allergies Active Allergy Reactions Criticality Noted Date Comments Lisinopril Swelling Medium 11/24/2023 Pt states that his nose swells to more than twice its normal size when he takes Lisinopril, and that he feels congested when this happens. He states that he does not experience swelling in or around his mouth or throat and does not experience difficulty breathing. Medications alcohol swabs pads, medicatedIndica tions:Heart transplant recipient Swab prior to testing and insulin administration as directed 300 each 1 024 4:11 PM EST 2023 Active amoxicillin (Amoxil) 500 mg capsule Take 2,000 mg by mouth 1 (one) time if needed (dentist). 2023 Active insulin lispro (HumaLOG) 100 unit/mL injectionIndica tions:Heart transplant recipient Inject 6 Units under the skin before breakfast AND 12 Units before lunch AND 12 Units before evening meal. 15 mL 1 025 5:38 PM EST 2023 Active Additional Information Patient taking differently: Inject 5 Units under the skin before breakfast AND 6 Units before lunch AND 6 Units before evening meal., Reported on 02/28/2025 insulin glargine (Lantus Solostar U-100 Insulin) 100 unit/mL (3 mL) injection Inject 30 units under the skin every evening. 15 mL 7 025 5:39 PM EDT 2024 Active Additional Information Patient taking differently: 17 UnitssubcutaneousEvery morning, Takes 17 units every am, Reason: taking 22 units every am, Reported on 02/28/2025 insulin lispro (HumaLOG KwikPen Insulin) 100 unit/mL injection Inject 6 units under the skin with breakfast, 12 units with lunch and 12 units with dinner. max 30 units/24 hours 30 mL 3 3:21 PM EDT 2024 Active Additional Information Patient not taking.Reported on 02/28/2025 pen needle, diabetic (BD Ultra-Fine Mini Pen Needle) 31 gauge x 3/16 needleIndicatio ns:Heart transplant recipient Use with insulin pen as directed 100 each 2 3:45 PM EDT 2024 Active fluticasone (Flonase) 50 mcg/actuation nasal sprayIndication s:Chronic cough Administer 1 spray into each nostril once daily. Shake gently. Before first use, prime pump. After use, clean tip and replace cap. 16 g 3 3:21 PM EDT 2024 Active Additional Information Patient not taking.Reported on 02/21/2025 tacrolimus (Prograf) 5 mg capsuleIndicati ons:Heart transplant recipient Take 1 capsule (5 mg) by mouth twice daily. 60 capsule 11 025 5:29 PM EST 10/17 Active tacrolimus (Prograf) 1 mg capsuleIndicati ons:Heart transplant recipient Take 1 capsule (1 mg) by mouth twice daily. 60 capsule 11 025 5:29 PM EST 11/07 Active cholecalciferol , vitamin D3, (Vitamin D-3) 25 MCG (1000 UT) tabletIndicatio ns:Heart transplant recipient Take 1 tablet (1,000 Units) by mouth once daily. 30 tablet 11 025 5:29 PM EST 11/15 Active aspirin 81 mg chewable tabletIndicatio ns:Heart transplant recipient Chew 1 tablet (81 mg) once daily. 30 tablet 11 025 5:29 PM EST 11/15 Active predniSONE (Deltasone) 5 mg tabletIndicatio ns:Heart transplant recipient Take 1 tablet (5 mg) by mouth once daily. 30 tablet 5 5:29 PM EST 06/11 Active pantoprazole (ProtoNix) 40 mg EC tabletIndicatio ns:Heart transplant recipient Take 1 tablet (40 mg) by mouth before breakfast. Do not crush, chew, or split. 30 tablet 11 5:29 PM EST 12/13 Active sulfamethoxazol e-trimethoprim (Bactrim DS) 800-160 mg tabletIndicatio ns:Heart transplant recipient Take 1 tablet by mouth once daily. 30 tablet 4:35 PM EDT 2024 Active Additional Information Patient not taking.Reported on 02/21/2025 levETIRAcetam (Keppra) 750 mg tabletIndicatio ns:Heart transplant recipient Take 1 tablet (750 mg) by mouth twice daily. 60 tablet 2 5:29 PM EST 03/15 Active mycophenolate (Cellcept) 250 mg capsuleIndicati ons:Heart transplant recipient Take 1 capsule (250 mg) by mouth twice daily. 60 capsule 11 025 5:29 PM EST 12/19 Active mycophenolate (Cellcept) 500 mg tabletIndicatio ns:Heart transplant recipient Take 1 tablet (500 mg) by mouth twice daily. Take in addition to 250mg cap, total dose 750mg twice daily. 60 tablet 11 5:29 PM EST 12/19 Active bisacodyl (Dulcolax) 5 mg EC tablet Take 5 mg by mouth if needed each day for constipation. Do not crush, chew, or split. Ac tive calcium carbonate 500 mg calcium (1,250 mg) tabletIndicatio ns:Heart transplant recipient Take 1 tablet (1,250 mg) by mouth with breakfast and with evening meal. 180 tablet 3 3:21 PM EDT 01/10 Active triamcinolone (Kenalog) 0.1 % ointmentIndicat ions:Eczema craquele Apply topically twice daily to affected areas, stop when clear. For up to 2 weeks per month. 80 g 2 2:10 PM EST 2024 Active ketoconazole (NIZOral) 2 % creamIndication s:Tinea cruris Apply topically twice daily to affected areas, stop when clear. 60 g 11 025 2:10 PM EST 2024 Active fluocinolone and shower cap 0.01 % oilIndications: Irritant contact dermatitis due to other agents Apply twice daily topically to scalp for up to 2 weeks per month. Stop when clear. 118.28 mL 2 2:10 PM EST 2024 Active famotidine (Pepcid) 20 mg tabletIndicatio ns:Heart transplant recipient Take 1 tablet (20 mg) by mouth before evening meal. 30 tablet 11 5:29 PM EST 02/08 Active pravastatin (Pravachol) 80 mg tabletIndicatio ns:Heart transplant recipient,Mixed hyperlipidemia Take 1 tablet (80 mg) by mouth once daily. 90 tablet 3 03/06 Active famotidine (Pepcid) 20 mg tabletIndicatio ns:Heart transplant recipient Take 1 tablet (20 mg) by mouth before evening meal. 30 tablet 2 3:21 PM EDT 02/08 Discontinued( Reorder) pravastatin (Pravachol) 80 mg tabletIndicatio ns:Heart transplant recipient Take 1 tablet (80 mg) by mouth once daily. 30 tablet 11 025 3:21 PM EDT 03/06 Discontinued Active Problems Problem Noted Date Diagnosed Date Tracheal stenosis following tracheostomy GERD (gastroesophageal reflux disease) Weight loss 10/04/2024 Pancytopenia 10/04/2024 Cytomegalovirus infection [...] 's report Asked patient to call his [place] Attorney regarding his increased weight/swelling for further recommendations. Last Assessment & Plan: reports he's up a few pounds from his baseline weight, worsening leg swelling over the last few days. Compliant with Torsemide - taking full dose per 's report Asked patient to call his [place] Attorney regarding his increased weight/swelling for further recommendations. [...] Encounters Date Type Department Care Team Description 03/06/2025 Refill [facility] Cardiac Subspecialty [address] [facility] [address] [place] [address] Jose Angel Nunez NP Heart transplant recipient; Mixed hyperlipidemia 02/28/2025 9:45 AM EST Anesthesia Event [facility] OR [address] [place] [phone] Vonda Forte MD Pirozzi, Joseph, TAWANNA 02/28/2025 8:50 AM EST - 02/28/2025 10:20 AM EST Surgery [facility] OR [address] [place] [phone] Loren Hall MD Bronchoscopy with dilation [56510 (CPT )] 02/28/2025 6:48 AM EST - 02/28/2025 12:56 PM EST Hospital Encounter [facility] OR [address] [place] [phone] Loren Hall MD Cytomegalovirus infection, unspecified cytomegaloviral infection type Discharge Disposition: Home or self care 02/28/2025 Travel 02/22/2025 2:00 PM EST Office Visit [facility] Neurology [address] [place] [address] Percy Kapoor MD Focal epilepsy (Primary Dx) 02/22/2025 Travel 02/21/2025 2:00 PM EST Pre-Admission Testing [facility] Preadmit Testing [address] [place] [address] 02/09/2025 Telephone [facility] Infectious Disease [address] [phone] Lena Cortes NP 02/08/2025 Refill [facility] Infectious Disease [address] [phone] Lena Cortes NP Cytomegalovirus (CMV) viremia 02/08/2025 Refill [facility] Cardiac Subspecialty [address] [phone] Jose Angel Nunez NP Heart transplant recipient 02/06/2025 1:00 PM EST Office Visit [facility] Dermatology [address] [place] [address] Nelida Ayala MD Eczema craquele (Primary Dx); Tinea cruris; Onychomycosis; Irritant contact dermatitis due to other agents; Sharp angioma; Immunosuppression 02/06/2025 Travel 02/02/2025 2:00 PM EDT Office Visit [facility] Lung Nodule [address] [phone] Loren Hall MD Tracheal stenosis following tracheostomy (Primary Dx); Heart transplant recipient; Immunosuppressed status 02/02/2025 1:30 PM EDT Office Visit [facility] Lung Nodule [address] [phone] Alfred Mckeon MD Tracheal stenosis (Primary Dx) 02/02/2025 Travel 01/24/2025 Telephone [facility] Infectious Disease [address] [phone] Lena Cortes NP 01/18/2025 Telephone [facility] Infectious Disease [address] [phone] Lena Cortes NP 01/10/2025 Refill [facility] Cardiology [address] [facility] [address] [place] [phone] Pedro Kline MD Heart transplant recipient 01/03/2025 10:30 AM EDT - 01/03/2025 12:30 PM EDT Surgery [facility] Cardiac [employer] [address] [place] [address] Luisa Yang MD Coronary angiography [57609 (CPT )] 01/03/2025 10:17 AM EDT - 01/03/2025 4:56 PM EDT Hospital Encounter [facility] Cardiac [employer] [address] [place] [address] Luisa Yang MD Other cytomegaloviral diseases (Multi-HCC) (Primary Dx); Heart transplant recipient (Multi-HCC) Discharge Disposition: Home or self care 01/03/2025 Travel 01/02/2025 Orders Only [facility] Infectious Disease [address] [phone] Lena Cortes NP 12/28/2024 11:30 AM EDT Office Visit [facility] Pulmonary [address] [phone] Daysi Fink MD Chronic cough (Primary Dx); Pulmonary sarcoidosis (Multi-HCC); 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); Cardiac sarcoidosis (HHS-HCC); Dyspnea and respiratory abnormality 12/28/2024 10:16 AM EDT - 12/28/2024 11:59 PM EDT Hospital Encounter [facility] Imaging [address] [place] [address] Cytomegalovirus infection, unspecified cytomegaloviral infection type (Multi-HCC); Tracheal stenosis; Pulmonary sarcoidosis (Multi-HCC) Discharge Disposition: Home or self care 12/28/2024 Travel 12/26/2024 Orders Only [facility] Infectious Disease [address] [phone] Lena Cortes NP Cytomegalovirus (CMV) viremia (Multi-HCC) 12/20/2024 Results Follow-Up [facility] Infectious Disease [address] [phone] Lena Cortes NP 12/19/2024 11:40 AM EDT - 12/19/2024 11:59 PM EDT Hospital Encounter [facility] Radiology [address] [place] [phone] Other cytomegaloviral diseases (Multi-HCC); Heart transplant recipient (Multi-HCC) Discharge Disposition: Home or self care 12/19/2024 11:00 AM EDT Office Visit [facility] Cardiac Subspecialty [address] [phone] Bridger Hernandez MD Type 2 diabetes mellitus with other specified complication, unspecified whether fci insulin use (Multi-HCC) (Primary Dx); Other cytomegaloviral diseases (Multi-HCC); Heart transplant recipient (Multi-HCC); Mixed hyperlipidemia ; Prostate cancer screening; Sarcoidosis 12/19/2024 7:36 AM EDT - 12/19/2024 11:39 AM EDT Hospital Encounter [facility] Cardiac Echo [address] [facility] [address] [place] [phone] Other cytomegaloviral diseases (Multi-HCC); Heart transplant recipient (Multi-HCC); Heart transplant rejection (Multi-HCC) Discharge Disposition: Home or self care 12/19/2024 Telephone [facility] Cardiac Subspecialty [address] [phone] Kailyn Hess Appointment; Follow-up 12/19/2024 Travel 12/14/2024 Orders Only [facility] Infectious Disease [address] [phone] Lena Cortes NP Heart transplant recipient (Multi-HCC) (Primary Dx); Other cytomegaloviral diseases ([facility]) 12/13/2024 Refill [facility] Infectious Disease [address] [place] [phone] Lena Cortes NP Other cytomegaloviral diseases ([facility]) 12/13/2024 Refill [facility] Cardiac Subspecialty [address] [phone] Jose Angel Nunez NP Heart transplant recipient ([facility]) 12/13/2024 Refill [facility] Cardiology [address] [facility] [address] [place] [phone] Izaiah Martinez MD Heart transplant recipient ([facility]) 12/13/2024 Refill [facility] Cardiology [address] [facility] [address] [place] [phone] Pedro Kline MD Heart transplant recipient ([facility]) 12/13/2024 Refill [facility] Cardiac Subspecialty [address] [phone] Sharon Savage NP Heart transplant recipient ([facility]) from Last 3 Months Immunizations Immunization Administration [...] Vaccine Formula 12+ (Deferred: Not available from medical esthetician - Per pharmacy vaccine is out of stock. MD Martins notified) Tdap 05/30/2021 Zoster, Recombinant 11/26/2023 Family History Medical History Relation Name Comments Diabetes Brother Emmanuel Avila Avila Cancer Father Dardouglas Dooleys Alfaro Diabetes Father Dardouglas Dooleys Alfaro Hypertension Father Dar Avila Alfaro Cancer Mother Lillie Bender Diabetes Mother Lillie vAila Bender Diabetes Sister Mar a Stephanie Avila Avila Relation Name Status Comments Brother Emmanuel Avila Avila Alive Father Dar Dooleys Alfaro Alive Mother Lillie Bender Alive Sister Mar a Stephanie Avila [...] Sign Reading Time Taken Comments Blood Pressure 120/67 02/28/2025 12:15 PM EST Pulse 86 02/28/2025 12:15 PM EST Temperature 36.6 C (97.9 F) 02/28/2025 12:15 PM EST Respiratory Rate 26 02/28/2025 12:15 PM EST Oxygen Saturation 100% 02/28/2025 12:15 PM EST Inhaled Oxygen Concentration - - Weight 61.2 kg (135 lb) 02/28/2025 8:11 AM EST Height 172.7 cm (5' 8 ) 02/28/2025 8:11 AM EST Body Mass Index 20.53 02/28/2025 8:11 AM EST Plan of Treatment Upcoming Encounters Date Type Department Care Team (Late st Contact Info) Description 03/20/2025 12:00 PM EST Office Visit [facility] Cardiac Subspecialty [address] [phone] Charlie Barry MD [address] [place] [address] 05/15/2025 1:00 PM EST Office Visit [facility] Dermatology [address] [place] [address] Nelida Ayala MD [address] [place] [address] 07/06/2025 1:00 PM EDT Office Visit [facility] Lung Nodule [address] [place] [address] [address] [place] [phone] Alfred Mckeon MD [address] [place] [phone] 07/06/2025 1:30 PM EDT Office Visit [facility] Lung Nodule [address] [place] [address] [facility] 4th [place] [phone] Yoav Portillo Lung Nod Pul 07/12/2025 10:30 AM EDT Appointment [facility] Pulmonary Function Lab [address] [facility] [address] [facility] 5th Floor Room [address] [place] [phone] 07/12/2025 11:30 AM EDT Office Visit [facility] [address] [facility] 3rd [place] [address] Daysi Fink MD [address] [facility] [address] [place] [address] Health Maintenance Due Date Last Done Comments CT Colonography 1955 FOBT 1955 Sigmoidoscopy 1955 Diabetes: Retinopathy Screening 1955 Diabetes: Foot Exam 06/18/1965 Hepatitis A Vaccines (1 of 2 - Risk 2-dose series) 06/18/1974 Medicare Annual Wellness (AWV) 06/04/2021 Hepatitis B Vaccines (2 of 3 - Risk 3-dose series) 12/24/2023 11/26/2023 Zoster Vaccines (2 of 2) 01/21/2024 11/26/2023 FIT 01/22/2024 01/21/2023 Depression Screening 04/06/2024 Diabetes: Urine Protein Screening 11/25/2024 11/26/2023, 01/12/2023, 01/12/2023 COVID-19 Vaccine (6 - Mixed Product risk season) 2025 02/20/2025, 02/05/2024, 02/25/2022, Additional history exists Diabetes: Hemoglobin A1C 12/19/2025 025, 07/27/2024, 05/26/2024, [...] 12/19/2024, 0 05/26/2024, 05/26/2024, Additional history exists Influenza Vaccine Completed 02/20/2025, , 01/12/2023 HIB Vaccines Aged Out No longer eligi ble based on patient's age to complete this topic HPV Vaccines (No Doses Required) Completed IPV Vaccines Aged Out No longer eligi [...] [employer] Implanted Type Area Oral Surgery Assistant Device Identifier Shelf Expiration Date Model / Serial / Lot Rn Delivery-D [employer] Icd-10/02/2022 Implanted:09/05 (Quantity not on file) [employer]SP[employer] SUPERVISOR-D ICD Chest [employer] Graft Hemashield Str 10x30 - [id number] Implanted:Qty: 1 on 12/22/2023 at [facility] Graft Right: Axilla GETINGE[employer] 09/03/2028 [id number] / [id number] / Impella- 024 Implanted:12/05 (Quantity not on file) Impella Heart Procedures Procedure Name Priority Date/Time Associated Diagnosis Comments POCT GLUCOSE Routine 02/28/2025 11:45 AM EST TN AN ELECTIVE SUPRAGLOTTIC AIRWAY Routine 02/28/2025 10:00 AM EST TN BRONCHOSCOPY,DIAGNOST IC 02/28/2025 9:35 AM EST Tracheal stenosis POCT GLUCOSE Routine 02/28/2025 8:23 AM EST ENDOMYOCARDIAL BIOPSY Routine 01/03/2025 12:45 PM EDT [...] mellitus with other specified complication, unspecified whether exterminator termite insulin use (Multi-HCC) PSA TOTAL, SCREEN STAT [...] mellitus with other specified complication, unspecified whether fci insulin use (Multi-HCC) DOBUTAMINE STRESS ECHO (02324) Routine 12/19/2024 9:38 AM EDT Heart transplant recipient (Multi-HCC) Heart transplant rejection (Multi-HCC) HCV RNA, QUANTITATIVE, PCR (MONITORING) Routine 01/26/2024 10:30 AM EDT ALBUMIN, URINE, RANDOM (INCLUDING CREATININE) Routine 11/26/2023 1:50 PM EDT from Last 3 Months or Most Recently Relevant to Health Maintenance Results * POCT glucose meter (02/28/2025 11:45 AM EST) Only the most recent of2 resultswithin the time period is included. POCT Glucose 134 70 - 139 mg/dL 02/28/2025 11:46 AM EST [facility] Blood Blood specimen / Unknown 02/28/2025 11:45 AM EST 02/28/2025 11:46 AM EST us Loren Hall MD LAB POINT OF CARE TE ST DOCKED DEVICE UNSOLICITED RESULTS Final Result [facility] [address] [place] [address], * TN AN ELECTIVE SUPRAGLOTTIC AIRWAY (02/28/2025 10:00 AM EST) Narrative Wesly Barry MD - 02/28/2025 10:00 AM EST Wesly Barry MD 02/28/2025 10:09 AM Airway Date/Time: 02/28/2025 10:00 AM Location: OR Urgency: Elective Difficult Airway: No Induction Technique: Intravenous RSI: No Cricoid pressure: No ETT In Situ?: No Anesthesiologist: Vonda Forte MD Resident/DIRECTOR INFORMATION: Wesly Barry MD Performed by: Resident/DIRECTOR INFORMATION Vonda Forte MD Indications for Airway Management: Anesthesia Preoxygenated: Yes Patient Position: Sniffing Mask Ventilation: Easy mask Final Airway Type: LMA LMA Size: 4 Vonda Forte MD Number of Attempts at Approach: 1 Vonda Forte MD ANESTHESIA ORDERABLES Maral l Result * CORONARY ANGIOGRAPHY, ENDOMYOCARDIAL BIOPSY (01/03/2025 12:45 PM EDT) 01/03/2025 12:1 1 PM EDT Narrative [facility] HEMO MERGE HEMO - 01/03/2025 5:21 PM EDT [facility] Adult Catheterization Lab [address] [place] [address] Right and Left Diagnostic Cardiac Catheterization and [...] Procedure Note Luisa Yang MD - 01/03/2025 [facility] Adult Catheterization Lab [address] [place] [address] Right and Left Diagnostic Cardiac Catheterization and [...] + + + PA wedge a/v (m) 6 (2) + + + + Arterial pressure [...] Nunez NP CV CARDIAC CATH PROCEDURES Maral radha Result [facility] HEMO MERGE HEMO * Tissue Pathology (01/03/2025 11:20 AM EDT) Case Report Surgical Pathology Case: [id number] Authorizing Provider: Jose Angel Nunez NP Collected: 01/03/2025 1120 Ordering Location: [facility] Received: 01/03/2025 1320 Cardiac [employer] Consultant Pathologist: Ramos Kay MD Specimen: Heart, R ventricle Bx post Tx 01/04/2025 4:36 PM EDT [facility] Final Diagnosis [...] show appropriate reactivity. 01/04/2025 4:36 PM EDT [facility] at 1636 [...] toto in A1. Grossed by DANY Wong PA([facility])CM on 01/03/25 at 1:26 PM. 01/04/2025 4:36 PM EDT [facility] Disclaimer The [...] show appropriate reactivity. 01/04/2025 4:36 PM EDT [facility] Tissue Heart structure / Unknown 01/03/2025 11:20 AM EDT 01/03/2025 1:20 PM EDT Jose Angel Nunez DISPATCH MANAGER LAB PATHOLOGY ORDERABLES Final Result [facility] [address] [place] [address], * (ABNORMAL) CBC w/ Differential (01/03/2025 11:10 AM EDT) WBC 2.7(L) 4.0 - 11.0 K/uL 01/03/2025 11:41 AM EDT [facility] RBC 3.82(L) 4.20 - 5.90 M/uL 01/03/2025 11:41 AM EDT [facility] Hemoglobin 11.3(L) 13.0 - 17.5 g/dL 01/03/2025 11:41 AM EDT [facility] Hematocrit 33.5(L) 37.0 - 53.0 % 01/03/2025 11:41 AM EDT [facility] MCV 87.7 80.0 - 100.0 fL 01/03/2025 11:41 AM EDT [facility] MCH 29.6 26.0 - 34.0 pg 01/03/2025 11:41 AM EDT [facility] MCHC 33.7 31.0 - 37.0 g/dL [facility]/03[facility]25 [facility] R[facility]-CV 12.8 11.5 - 14.5 % 01/03/2025 11:41 AM EDT [facility] RDW-SD 40.4 35.0 - 51.0 fL 01/03[facility]2025 [facility] Platelets 122(L) 150 - 400 K/uL 01/03/2025 11:41 AM EDT [facility] MPV 9.7 9.1 - 12.4 fL 01/03/2025 11:41 AM EDT [facility] Neutrophil % 65.5 % 01/03/2025 11:41 AM EDT [facility] Lymphocyte % 20.0 % 01/03/2025 11:41 AM EDT [facility] Monocytes % 5.6 % 01/03/2025 11:41 AM EDT [facility] Eosinophils % 5.2 % 01/03/2025 11:41 AM EDT [facility] Basophils % 0.4 % 01/03/2025 11:41 AM EDT [facility] Immature Granulocytes % 3.3 % 01/03/2025 11:41 AM EDT [facility] NRBC % 0.0 0.0 - 0.0 % 01/03/2025 11:41 AM EDT [facility] Neutrophils Absolute 1.77 1.50 - 7.95 K/uL 01/03/2025 11:41 AM EDT [facility] Lymphocytes Absolute 0.54(L) 0.70 - 4.00 K/uL 01/03/2025 11:41 AM EDT [facility] Monocytes Absolute 0.15(L) 0.38 - 0.83 K/uL 01/03/2025 11:41 AM EDT [facility] Eosinophils Absolute 0.14 0.00 - 0.50 K/uL 01/03/2025 11:41 AM EDT [facility] Basophils Absolute 0.01 0.00 - 0.22 K/uL 01/03/2025 11:41 AM EDT [facility] Immature Granulocytes Absolute 0.09 0.00 - 0.10 K/uL 01/03/2025 11:41 AM EDT [facility] NRBC Absolute 0.00 0.00 - 2.00 K/uL 01/03/2025 11:41 AM EDT [facility] Venous blood specimen / Unknown Venipuncture / Unknown 01/03/2025 11:10 AM EDT 01/03/2025 11:34 AM EDT Zeina Maradiaga MD LAB BLOOD ORDERABLES Final Result [facility] [address] [place] [address], * Tacrolimus level (01/03/2025 11:10 AM EDT) Only the most recent of2 resultswithin the time period is included. Tacrolimus, LC-MS/MS 7.5 3.0 - 20.0 ng/mL 01/03/2025 3:15 PM EDT [facility] Comment:Performed by LC-MS/M S. Reference intervals are based on trough collection. Optimal therapeutic ranges depend on time post-transplant, dosing regimen, organ type, and concomitant immunosuppression therapy. Results should be interpreted in conjunction with physical signs/symptoms of rejection/toxicity. This test was developed and its performance characteristics determined by [facility]. It has not been cleared or approved by the FDA. The laboratory is regulated under CLIA as qualified to perform high-complexity testing. This test is used for clinical purposes. It should not be regarded as investigational or for research. Time of last dose 025 3:15 PM EDT [facility] Date of last dose 025 3:15 PM EDT [facility] Blood Venous blood specimen / Unknown Venipuncture / Unknown 01/03/2025 11:10 AM EDT 01/03/2025 11:34 AM EDT Zeina Maradiaga MD LAB BLOOD ORDERABLES Final Result Performing Organization Address City/[facility] de Phone Number [facility] [address] [place] [address], * (ABNORMAL) CMV Quant DNA, RT-PCR, BLOOD (01/03/2025 11:10 AM EDT) Only the most recent of3 resultswithin the time period is included. CMV DNA Viral Load 130(H) Not Detected IU/mL [facility] 2 01/03/2025 4:19 PM EDT [facility] Comment:DETECTED CMV DNA Viral Load, log 2.11(H) Not Detected log IU/mL 01/03/2025 4:19 PM EDT [facility] CMV DNA Viral Load, Interp Detected( A) Not Detected [facility] 01/03/2025 4:19 PM EDT [facility] Blood Venous blood specimen / Unknown Venipuncture / Unknown 01/03/2025 11:10 AM EDT 01/03/2025 11:34 AM EDT Narrative [facility] - 01/03/2025 4:19 PM EDT This test was performed using the Coates Alinity m CMV DNA assay, performed on the Coates ALinity m instrument Lena Cortes NP LAB BLOOD ORDERABLES Fin al Result Performing Organization Address City/[facility] Co de Phone Number [facility] [address] [place] [address], * Protime/INR (01/03/2025 11:10 AM EDT) Protime 12.0 9.7 - 14.0 seconds 01/03/2025 11:55 AM EDT [facility] INR 1.04 See Comment 01/03/2025 11:55 AM EDT [facility] Comment: NORMAL PATIENTS NOT ON ANTICOAGULANTS: INR: 0.9-1.3 RECOMMENDED INR WITH WARFARIN/COUMADIN THERAPY: INR: 2.00-3.00 Deep vein thrombosis Atrial Fibrillation Tissue Prosthetic Valve Stroke Prevention INR:2.50-3.50 Mechanical Prosthetic Valve and Recurrent Systemic Embolism Blood Venous blood specimen / Unknown Venipuncture / Unknown 01/03/2025 11:10 AM EDT 01/03/2025 11:34 AM EDT Zeina Maradiaga MD LAB BLOOD ORDERABLES Final Result Performing Organization Address City/[facility] Co de Phone Number [facility] [address] [place] [address], * Magnesium (01/03/2025 11:10 AM EDT) Only the most recent of2 resultswithin the time period is included. Magnesium 1.7 1.6 - 2.6 mg/dL 01/03/2025 12:13 PM EDT [facility] Blood Venous blood specimen / Unknown Venipuncture / Unknown 01/03/2025 11:10 AM EDT 01/03/2025 11:33 AM EDT Zeina Maradiaga MD LAB BLOOD ORDERABLES Final Result Performing Organization Address [facility] Co de Phone Number [facility] [address] [place] [address], * (ABNORMAL) Comprehensive metabolic panel (01/03/2025 11:10 AM EDT) Only the most recent of2 resultswithin the time period is included. Sodium 145 135 - 146 mmol/L 01/03/2025 12:13 PM EDT [facility] Potassium 4.4 3.6 - 5.2 mmol/L 01/03/2025 12:13 PM EDT [facility] Comment:Specimen hemolyzed r esult may be falsely increased up to 1.0 mmol/L. Chloride 106 98 - 110 mmol/L 01/03/2025 12:13 PM EDT [facility] CO2 (Bicarbonate) 24 20 - 32 mmol/L 01/03/2025 12:13 PM EDT [facility] Anion Gap 15(H) 3 - 14 mmol/L 01/03/2025 12:13 PM EDT [facility] BUN 17 6 - 24 mg/dL 01/03/2025 12:13 PM EDT [facility] Creatinine 0.98 0.55 - 1.30 mg/dL 01/03/2025 12:13 PM EDT [facility] eGFRcr 83 >=60 mL/min/1.7 3m*2 01/03/2025 12:13 PM EDT [facility] Comment:Calculated using CKD -EPI 2020 creatinine equation. Glucose 133(H) 70 - 99 mg/dL 01/03/2025 12:13 PM EDT [facility] Fasting? Yes [facility] 01/03/2025 12:13 PM EDT [facility] Calcium 9.9 8.5 - 10.5 mg/dL 01/03/2025 12:13 PM EDT [facility] AST 24 6 - 42 U/L 01/03/2025 12:13 PM EDT [facility] ALT 9 0 - 55 U/L 01/03/2025 12:13 PM EDT [facility] Alkaline phosphatase 54 30 - 130 U/L 01/03/2025 12:13 PM EDT [facility] Protein, total 7.0 6.0 - 8.4 g/dL 01/03/2025 12:13 PM EDT [facility] Albumin 4.6 3.2 - 5.0 g/dL 01/03/2025 12:13 PM EDT [facility] Bilirubin, total 0.5 0.2 - 1.2 mg/dL 01/03/2025 12:13 PM T [facility] Blood Venous blood specimen / Unknown Venipuncture / Unknown 01/03/2025 11:10 AM EDT 01/03/2025 11:33 AM EDT Zeina Maradiaga MD LAB BLOOD ORDERABLES Final Result [facility] [address] [place] [address], [place] * CT HIGH RESOLUTION CHEST WO [...] GENDER: Male ORD PHYS: DAYSI FINK LOCATION: [facility] 12/28/2024 10:46 AM EDT [id number] (CT HIGH RESOLUTION CHEST WO CONTRAST) [id number] Provided History: Pulmonary sarcoidosis and tracheal stenosis [...] GENDER: Male ORD PHYS: DAYSI FINK LOCATION: [facility] 12/28/2024 10:46 AM EDT [id number] (CT HIGH RESOLUTION CHEST WO CONTRAST) [id number] Provided History: Pulmonary sarcoidosis and tracheal stenosis [...] Narrative 12/19/2024 1:16 PM EDT NAME: MATTHEW VAILA : 1955 AGE: 69 years GENDER: Male ORD PHYS: BRIDGER DRAKELATI LOCATION: [facility] 12/19/2024 12:44 PM EDT IMG36 (XR CHEST 2 VIEWS) [id number] REASON FOR STUDY: cardiac transplantation TECHNIQUE: PA [...] GENDER: Male ORD PHYS: BRIDGER DAVID LOCATION: [facility] 12/19/2024 12:44 PM EDT IMG36 (XR CHEST 2 VIEWS) [id number] REASON FOR STUDY: cardiac transplantation TECHNIQUE: PA and lateral views of the chest Comparison: 10/03/2024 FINDINGS: The heart and sternal wires are unchanged. There is nopneumothorax or congestion or focal consolidation or pleural effusion. Nonew mediastinal widening. No acute bony changes. [place] overlie the upperlateral right hemithorax as previously. IMPRESSION: No acute cardiopulmonary abnormality. APPROVED BY STAFF RADIOLOGIST: DENISHA MCKEON 12/19/2024 1:16 PM EDT us Bridger Hernandez MD IMG XR PROCEDURES Final Result * (ABNORMAL) Cystatin C with eGFR (12/19/2024 12:15 PM EDT) Pathologist [facility] Cystatin C 1.20(H) 0.72 - 1.16 mg/L [facility] 1 eGFRcys 59(L) >59 mL/min/1.73 [facility] 1 Blood Venous blood specimen / Unknown 12/19/2024 12:15 PM EDT 12/19/2024 Narrative [facility] - 12/20/2024 6:45 AM EDT Performed at: [address] [id number] Lead Sewage Plant Operator: Iram Zambrano MD, Phone: [phone] us Bridger Hernandez MD LAB BLOOD ORDERABLES Final Resu lt Performing Organization Address City/State/[facility] Co de Phone Number [facility] [address] [place] [address], [facility] * PSA Total, Screen (Male patients only) (12/19/2024 12:15 PM EDT) [facility] PSA TOTAL 2.7 0.0 - 4.0 ng/mL [facility] 1 Comment: [place] ECLIA methodology. According to the [place] [employer], Serum PSA should decrease and [...] - 12/20/2024 7:45 AM EDT Performed at: [address] [id number] Lead Sewage Plant Operator: Iram Zambrano MD, Phone: [phone] us Bridger Hernandez MD LAB BLOOD ORDERABLES Final Resu lt [facility] [address] [place] [address], [facility] 1 * (ABNORMAL) CBC and differential [...] 12/19/2024 3:15 PM EDT Performed at: [address] [place] [id number] Lead Sewage Plant Operator: Jim Henning [facility], Phone: [phone] Bridger Hernandez MD LAB BLOOD ORDERABLES Final Resu lt Performing Organization Address [facility] de Phone Number [facility] [address] [place] [address], [facility] * Uric Acid (12/19/2024 12:15 PM EDT) Uric Acid 5.2 2.6 - 8.0 mg/dL [facility] 1 Comment: Although the reference interval for men extends up to 8.0 mg/dL, patients with gout may benefit from uric acid levels <6.0 mg/dL. Blood Venous blood specimen / Unknown 12/19/2024 12:15 PM EDT 12/19/2024 Narrative [facility] - 12/19/2024 3:15 PM EDT Performed at: [address] [place] [id number] Lead Sewage Plant Operator: Jim Henning [facility], Phone: [phone] Bridger Hernandez MD LAB BLOOD ORDERABLES Final Resu lt Performing Organization Address City/[facility] Co de Phone Number [facility] [address] [place] [address], [facility] * Phosphorus (12/19/2024 12:15 PM EDT) Phosphorus 3.9 2.4 - 4.9 mg/dL [facility] 1 Blood Venous blood specimen / Unknown 12/19/2024 12:15 PM EDT 12/19/2024 Narrative [facility] - 12/19/2024 3:15 PM EDT Performed at: [address] [place] [id number] Lead Sewage Plant Operator: Jim Henning [facility], Phone: [phone] us Bridger Hernandez MD LAB BLOOD ORDERABLES Final Resu lt Performing Organization Address City/[facility]/ZIP Co de Phone Number [facility] [address] [place] [address], [facility] 1 * (ABNORMAL) Lactate dehydrogenase (12/19/2024 12:15 PM EDT) LDH 369(H) 110 - 250 U/L [facility] 1 Blood Venous blood specimen / Unknown 12/19/2024 12:15 PM EDT 12/19/2024 Narrative [facility] - 12/19/2024 3:15 PM EDT Performed at: [address] [place] [id number] Lead Sewage Plant Operator: Jim Henning [facility], Phone: [phone] us Bridger Hernandez MD LAB BLOOD ORDERABLES Final Resu lt Performing Organization Address [facility] Co de Phone Number [facility] [address] [place] [address], [facility] * (ABNORMAL) Hemoglobin A1c (12/19/2024 12:15 PM EDT) HgbA1C 6.5(H) 4.8 - 5.6 % [facility] 1 Comment: Prediabetes: 5.7 - 6.4 Diabetes: >6.4 Glycemic control for adults with diabetes: <7.0 Blood Venous blood specimen / Unknown 12/19/2024 12:15 PM EDT 12/19/2024 Narrative [facility] - 12/20/2024 4:05 AM EDT Performed at: [address] [id number] Lead Sewage Plant Operator: Iram Zambrano MD, Phone: [phone] us Bridger Hernandez MD LAB BLOOD ORDERABLES Final Resu lt Performing Organization Address [facility]/ZIP Co de Phone Number [facility] [address] [place] [address], [facility] * CK (aka CPK) (12/19/2024 12:15 PM EDT) CK Total 41 41 - 331 U/L [facility] 1 Blood Venous blood specimen / Unknown 12/19/2024 12:15 PM EDT 12/19/2024 Narrative [facility] - 12/20/2024 7:45 AM EDT Performed at: [address] [place] [id number] Lead Sewage Plant Operator: Iram Zambrano MD, Phone: [phone] Bridger Hernandez MD LAB BLOOD ORDERABLES Final Resu lt Performing Organization Address [facility] Co de Phone Number [facility] [address] [place] [address], [place] [facility] 1 * Hepatic function panel (12/19/2024 12:15 PM EDT) Pathologist [facility] Bilirubin, Direct 0.2 0.0 - 0.5 mg/dL [facility] 1 Blood Venous blood specimen / Unknown 12/19/2024 12:15 PM EDT 12/19/2024 Narrative [facility] - 12/19/2024 3:15 PM EDT Performed at: [address] [place] [id number] Lead Sewage Plant Operator: Jim Henning [facility], Phone: [phone] Bridger Hernandez MD LAB BLOOD ORDERABLES Final Resu lt Performing Organization Address City/[facility]/ZIP Co de Phone Number [facility] [address] [place] [address], [facility] 1 * (ABNORMAL) Lipid panel (12/19/2024 [...] EDT Performed at: 01 - [facility] [address] [id number] Lead Sewage Plant Operator: Iram Zambrano MD, Phone: [phone] us Bridger Hernandez MD LAB BLOOD ORDERABLES Final Resu lt [facility] [address] [place] [address], [facility] * ECG 12 lead [[facility]: Epiphany] Normal (12/19/2024 10:45 AM EDT) 12/19/2024 10:4 5 AM EDT Narrative [facility] STRESS/ECG EPIPHANY CARDIOSERVER - 12/19/2024 5:05 PM EDT [facility] Test Date: 2024-12-19 Pat Name: MATTHEW AVILA Department: [facility] Room: Gender: Male Cup Machine Operator: : 1955 Requested By: BRIDGER HERNANDEZ Order Number: [id number] Reading MD: Lacho Bauer Measurements Intervals [place] Rate: 91 P: 59 TN: 145 QRS: 40 QRSD: 77 T: 24 QT: 339 QTc: 417 Interpretive Statements Sinus rhythm Probable anteroseptal infarct, old Compared to ECG 12/31/2023 07:37:42 Sinus rhythm now more clearly present Electronically Signed On 12-19-2024 17:05:32 EDT by Lacho Bauer us Bridger Hernandez MD ECG ORDERABLES Final Result [facility] STRESS/ECG EPIPHANY CARDIOSERVER * DOBUTAMINE STRESS ECHO ([id number]) (12/19/2024 9:38 AM EDT) 12/19/2024 8:40 AM EDT Narrative [facility] PACS/REPORTING KRZYSZTOF ISCV - 12/19/2024 11:15 AM EDT [facility] Laboratory [address] [place] [address] Stress Echocardiogram Name: MATTHEW TORO Study Date: 12/19/2024 08:40 AM : 1955 Gender: Male Age: 69 yrs Ethnicity: OTHER Patient Location: [facility] Referring Physician: JOSE ANGEL NUNEZ Performed By: Osiel Michelel Ordering Physician: JOSE ANGEL NUNEZ Reason For Study: cardiac transplantation Height: 68 in Weight: 135 lb BSA: 1.7 m2 BP: 120/58 mmHg CPT/Quality/Location Stress Echo (34056). Stress Echo interp & report (20790). Supply - dobutamine. Location performed: Department. The [...] Russ MD - 12/19/2024 [facility] [address] [place] [address] StressEchocardiogram Name: MARGARITA DOOLEYMATTHEW Whaley Study Date: 508:40 AM : 1955 Gender: Male Age: 69 yrs Ethnicity: OTHER Patient Location: [facility] Referring Physician: JOSE ANGEL NUNEZ Performed By: Osiel Michelle Ordering Physician: JOSE ANGEL NUNEZ Reason For Study: cardiac transplantation Height: 68 in Weight: 135 lb BSA: 1.7 m2 BP:120/58 mmHg CPT/Quality/Location Stress Echo (81475). Stress Echo interp & report (12750). Supply -dobutamine. Location performed: Department. The quality [...] NP CV ECHO PROCEDURES Final Result [facility] PACS/REPORTING KRZYSZTOF ISCV * Hepatitis C Virus RNA, Quantitative, RT-PCR (01/26/2024 10:30 AM EDT) [facility] HCV RNA by RT-PCR [facility] 01/27/2024 2:18 PM EDT [facility] Comment:Not Detected HCV RNA Viral Load, log [facility] 01/27/2024 2:18 PM EDT [facility] Comment:Not Detected HCV RNA Viral Load, Interp Not Detected Not Detected [facility] 01/27/2024 2:18 PM EDT [facility] Blood Venous blood specimen / Unknown Venipuncture / Unknown 01/26/2024 10:30 AM EDT 01/26/2024 11:13 AM EDT Narrative [facility] - 01/27/2024 2:18 PM EDT This test was performed using the Genabilitynity m HCV assay, performed on the GenabilityniTrelligence m instrument. The lower limit of quantification is 12 IU/mL. Chi Barton MD LAB BLOOD ORDERABLES Final Resu lt Performing Organization Address [facility] de Phone Number [facility] [address] [place] [address], [place] * Albumin, Urine, Random (Microalbumin Random, Including Creatinine) (11/26/2023 1:50 PM EDT) [facility] Albumin, urine (INT/EXT) <1.2 mg/dL 11/26/2023 2:44 PM EDT [facility] Creatinine, urine, random (INT/EXT) 47.40 24.00 - 392.00 mg/dL 11/26/2023 2:44 PM EDT [facility] Albumin/Creatini ne ratio 11/26/2023 2:44 PM EDT [facility] Comment:Unable to calculate due to below or above Analytical Measurement Range. Urine Urine specimen / Unknown Non-blood Collection / Unknown 11/26/2023 1:50 PM EDT 11/26/2023 1:50 PM EDT Pedro Kline MD LAB URINE ORDERABLES Maral l Result Performing Organization Address [facility] Co de Phone Number [facility] [address] [place] [address], [place] from Last 3 Months or Most Recently Relevant to Health Maintenance Additional Health Concerns Active Problems Noted Date Diagnosed Date Autogenerated Problem 03/01/2025 Insurance MEDICARE PART A AND B [facility] MEDEX MEDICARE PART A AND B HEALTH SAFETY NET Advance Directives Documents on File Type Date Recorded 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 Lloydmadyson Mandel Son First Alte rnate Health Care Agent Care Teams Reconsignment Clerk Relationship Specialty Start Date End Date Name, MD Yoandy [address] [place] [address] PCP - General Training And Development Officer 11/12/23 Glenn Herman MD [address] [place] [address] Referring Physician Cardiology 11/12/23 Edward Handley CPhT Cup Machine Operator Pharmacy 12/31/23 Jennie Michelle, RadhaD [address] [place] [address] Pharmacist Pharmacy 01/27/24 Bridger Hernandez MD [address] [place] [address] [place] [address] Attending Physician Cardiology 12/19/24
--- OUTSIDE RECORDS SUMMARY | 2025-03-07 11:42 | XMS_ITS | Encounter Summary ---
Author Organization [facility] Address [address] [facility] [address] [place] [address] Care Team Providers Care Branch Billing Payroll Clerk Name Role Phone Glenn Herman MD Unavailable [phone] Yoandy Tillman MD Primary Care Provider [phone] Edward Handley air intelligence officer Unavailable Unavailable Jennie Michelle PharmD Unavailable [phone] Juan Hutchinson MD Unavailable [phone] Reason for Visit * Reason Comments Med Refill Encounter Details Date Type Department Care Team (Late st Contact Info) Description 03/06/2025 Refill [facility] [address] [facility] [address] [place] [address] Dena Mitchell NP [address] [place] [address] Heart transplant recipient; Mixed hyperlipidemia Social History Tobacco Use Types Packs/Day Years [...] of Assessment Author No 11/26/2023 11:17 AM Behtany Padilla RN documented as of this encounter [...] Description 03/20/2025 12:00 PM EST Office Visit [facility] [address] [phone] Charlie Barry MD [address] [place] [address] 05/15/2025 1:00 PM EST Office Visit [facility] Dermatology [address] [place] [address] Nelida Ayala MD [address] [place] [address] 07/06/2025 1:00 PM EDT Office Visit [facility] Lung Nodule [address] [phone] Alfred Mckeon MD [address] [place] [address] 07/06/2025 1:30 PM EDT Office Visit [facility] Nod[facility] [address] [phone] Yoav Portillo Lung Nod Pul 07/12/2025 10:30 AM EDT Appointment [facility] Pul[facility] Function Lab 800 [facility] 5th Floor Room [address] [place] [address] 07/12/2025 11:30 AM EDT Office Visit [facility] Pulmonary [address] 3rd [place] [phone] Daysi Fink MD [address] [facility] [address] [place] [phone] documented as of this encounter Goals Goal Patient Goal Type Associated Problems Recent Progress Patient-Stated? Author Autogenerat ed Goal Care Plan Autogenerated Problem No HostetterCindy cortes documented as of this encounter Visit Diagnoses Diagnosis Heart transplant recipient Mixed hyperlipidemia Cytomegalovirus infection, unspecified cytomegaloviral infection type documented in this encounter Additional Health Concerns Active Problems Noted Date Diagnosed Date Autogenerated Problem 03/01/2025 documented as of this encounter Care Teams Branch Billing Payroll Clerk Relationship Specialty Start Date End Date Name, MD Yoandy [address] [place] [address] PCP - General Manager Special Events 11/12/23 Glenn Herman MD [address] [place] [address] Referring Physician Cardiology 11/12/23 Edward Handley CPhT High Pressure Kettle Operator Pharmacy 12/31/23 Jennie Michelle, PharmD [address] [place] [address] Pharmacist Pharmacy 01/27/24 Juan Hutchinson MD 800 [facility] [address] [place] [address] Attending Physician Cardiology 12/19/24 documented as of this encounter
--- OUTSIDE RECORDS SUMMARY | 2025-03-07 11:42 | XMS_ITS | Encounter Summary ---
Author Organization [facility] Address 800 [facility] [address] [place] [address] Care Team Providers Care Transcripter Name Role Phone Glenn Herman MD Unavailable Name, Yoandy LUGO Primary Care Provider [phone] Edward Handley tongue binder Unavailable Unavailable Jennie Michelle PharmD Unavailable [phone] Juan Hutchinson MD Unavailable [phone] Encounter Details Date Type Department Care Team (Late st Contact Info) Description 12/25/2023 Lab Requisition [facility] [address] [place] [phone] Pedro Kline MD 800 [facility] [address] [place] [address] Cardiomyopathy, unspecified (Multi-HCC) Social History Tobacco Use [...] as of this encounter Functional Status * Question Answer Date of Assessment Author IBMonique (kg) (Calculated) 77.62 12/28/2023 5:05 PM EDT Shani Nicholas, OBED * Are you deaf or do you have serious difficulty hearing? Answer Date of Assessment Author No 11/26/2023 11:17 AM EDT Bethany Washington, ISAURA * Are you blind or do you [...] Description 03/20/2025 12:00 PM EST Office Visit [facility] Cardiac Subspecialty [address] [phone] Charlie Barry MD [address] [place] [address] 05/15/2025 1:00 PM EST Office Visit [facility] Dermatology [address] [place] [address] Nelida Ayala MD [address] [place] [address] 07/06/2025 1:00 PM EDT Office Visit [facility] Lung Nodule [address] [phone] Alfred Mckeon MD [address] [place] [address] 07/06/2025 1:30 PM EDT Office Visit [facility] Lung Nodule [address] [phone] Md, T Lung Nod Pul 07/12/2025 10:30 AM EDT Appointment [facility] Pulmonary Function Lab [address] [facility] [address] 5th Floor Room [address] [place] [address] 07/12/2025 11:30 AM EDT Office Visit [facility] [address] [facility] [address] 3rd [place] [phone] Daysi Fink MD [address] [facility] [address] [place] [phone] documented as of this encounter Procedures Procedure Name Priority Date/Time Associated Diagnosis Comments HLA CONSULTATION Routine 12/25/2023 8:41 AM EDT Cardiomyopathy, unspecified (Multi-HCC) documented in this encounter Results * HLA Consultation (12/25/2023 8:41 AM EDT) PDF Attached See PDF Document 12/26/2023 3:15 PM EDT [facility] Blood Venous blood specimen / Unknown 12/25/2023 8:41 AM EDT 12/25/2023 7:39 PM EDT us Pedro Kline MD LAB BLOOD ORDERABLES Maral l Result [facility] [address] [place] [address], documented in this encounter Visit Diagnoses Diagnosis Cardiomyopathy, unspecified Cytomegalovirus infection, unspecified cytomegaloviral infection type documented in this encounter Care Teams Transcripter Relationship Specialty Start Date End Date Name, MD Yoandy [address] [place] [address] PCP - General Buzzsaw Operator 11/12/23 Glenn Herman MD [address] [place] [address] Referring Physician Cardiology 11/12/23 Edward Handley CPhT Printed Products Assembler Pharmacy 12/31/23 Jennie Michelle, RadhaD [address] [place] [address] Pharmacist Pharmacy 01/27/24 Juan Hutchinson MD 800 [facility] [address] [place] [address] Attending Physician Cardiology 12/19/24 documented as of this encounter
--- OUTSIDE RECORDS SUMMARY | 2025-03-07 11:42 | XMS_ITS | Encounter Summary ---
Author Organization [facility] Address [address] [facility] [address] [place] [address] Care Team Providers Care Operations Liaison Name Role Phone Glenn Herman MD Unavailable [phone] Name, Yoandy LUGO Primary Care Provider [phone] Edward Handley customer service voice Unavailable Unavailable Jennie Michelle PharmD Unavailable [phone] Juan Hutchinson MD Unavailable [phone] Encounter Details Date Type Department Care Team (Late st Contact Info) Description 12/29/2023 Lab Requisition [facility] [address] [place] [phone] Pedro Kline MD 800 [facility] [address] [place] [address] Cardiomyopathy, unspecified (Multi-HCC) Social History Tobacco Use [...] Date of Assessment Author IBMonique (kg) (Calculated) 76.8 12/31/2023 7:43 AM EDT Myah Huffman RRT * Are you deaf or do you [...] Description 03/20/2025 12:00 PM EST Office Visit [facility] Cardiac Subspecialty [address] [phone] Charlie Barry MD [address] [place] [address] 05/15/2025 1:00 PM EST Office Visit [facility] Dermatology [address] [place] [address] Nelida Ayala MD [address] [place] [address] 07/06/2025 1:00 PM EDT Office Visit [facility] Lung Nodule [address] [phone] Alfred Mckeon MD [address] [place] [address] 07/06/2025 1:30 PM EDT Office Visit [facility] Lung Nodule [address] [phone] Md, T Lung Nod Pul 07/12/2025 10:30 AM EDT Appointment [facility] Pulmonary Function Lab 800 [facility] [address] 5th Floor Room [address] [place] [phone] 07/12/2025 11:30 AM EDT Office Visit [facility] 3rd [place] [phone] Daysi Fink MD 800 [facility] [address] [place] [phone] documented as of this encounter Procedures Procedure Name Priority Date/Time Associated Diagnosis Comments HLA CONSULTATION Routine 12/26/2023 11:5 6 PM EDT Cardiomyopathy, unspecified (Multi-HCC) documented in this encounter Results * HLA Consultation (12/26/2023 11:56 PM EDT) PDF Attached See PDF Document 01/02/2024 12:57 PM EDT [facility] Blood Venous blood specimen / Unknown 12/26/2023 11:56 PM EDT 12/29/2023 10:28 PM EDT us Pedro Kline MD LAB BLOOD ORDERABLES Maral l Result [facility] [address] [place] [address], documented in this encounter Visit Diagnoses Diagnosis Cardiomyopathy, unspecified Cytomegalovirus infection, unspecified cytomegaloviral infection type documented in this encounter Care Teams Operations Liaison Relationship Specialty Start Date End Date Name, MD Yoandy [address] [place] [address] PCP - General High Risk Ob 11/12/23 Glenn Herman MD [address] [place] [address] Referring Physician Cardiology 11/12/23 Edward Handley CPhT Sql Database Administrator Pharmacy 12/31/23 Jennie Michelle, RadhaD [address] [place] [address] Pharmacist Pharmacy 01/27/24 Juan Hutchinson MD [address] [place] [address] Attending Physician Cardiology 12/19/24 documented as of this encounter
--- OUTSIDE RECORDS SUMMARY | 2025-03-07 11:42 | XMS_ITS | Clinical Summary ---
Author Organization [facility] Address 75 [facility] 7t [place] [address] Care Team Providers Care Changer Fixer Name Role Phone Name, Yoandy LUGO Primary Care Provider [phone] Allergies Active Allergy Reactions Criticality Noted Date [...] bedtime. 4 Active Sharps Container (BD Sharps Pasting Machine Operator) [facility] For disposal of needles and lancets 4 [...] spray into each nostril Once per day. Active pen needle 31G x 5 mm misc Use with insulin pen as directed Active pravastatin (Pravachol) 80 MG tablet Take 1 tablet by mouth Once per day. Active predniSONE (Deltasone) 5 MG tablet Take 1 tablet by mouth Once per day. Active tacrolimus (Prograf) 1 MG capsule Take 4 capsules by mouth 2 times daily. 5 09/30/19 Active insulin glargine (Lantus SoloStar) 100 UNIT/ML pen Inject 22 Units under the skin at bedtime. 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[facility]) 06/30/2024 Chronic cough 06/28/2024 Fever 06/28/2024 Conjunctivitis of right eye 05/04/2024 Immunosuppressed status 05/04/2024 Night sweats 05/04/2024 Preventative health care 05/04/2024 Disease due to severe acute respiratory syndrome coronavirus 2 (SARS-CoV-2) 04/19/2024 Overview (07/27/2024): Problem added by Discern Expert Sensorineural hearing loss (SNHL) of both ears 0 04/15/2024 Observed seizure-like activity ([facility]) 024 Heart transplant recipient ([facility]) 02/05/2024 Overview (02/05/2024): #s/p OHT 12/28/23 #s/p impella explant #s/p ICD explant #hx NICM Seizure disorder ([facility]) 02/05/2024 Immunocompromised 02/05/2024 Sarcoidosis 01/27/2024 Alteration in [...] 's report Asked patient to call his Emg Technician regarding his increased weight/swelling for further recommendations. Dysphagia 02/08/2023 Positive colorectal cancer screening using Colog uard test 02/04/2023 Overview (11/03/2023): Negative Colonoscopy 06/2023: urgical Pathology Exam - Order: [id number] Component 4 mo ago Case Report Surgicals Case: [id number] Authorizing Provider: Donny Encarnacion Collected: 2023 0843 MD Eugene Ordering Location: [facility] Received: 2023 1011 Pathologist: Shannan [...] or special [place] [address]. Resulting Agency [facility] Specimen Collected: 06/19/23 08:43 Performed by: [facility] Last Resulted: 06/23/23 17:27 [...] Coronary artery disease invo [place]ving [place] coronary artery of [place] heart without angina pectoris 11/14/2022 Overview (11/02/2023): Last Assessment & Plan: - nonobstructive disease - continue medical therapy with aspirin, statin, BB - denies angina Stridor 11/13/2022 Overview (11/02/2023): Last Assessment & Plan: Improved after last dilation in April 2023. Mild stridor noted today in clinic Discussed with his primary demonstrator knitting Dr. Sanches and will work to get [...] Ventricular tachycardia, unspecified (CMS/HCC) 0 04/06/2022 Other alf (current) drug therapy 3 Type 2 diabetes [...] from dual-chamber to biventricular device at [facility] 03/2022. Follows at [facility] cardi Systolic dysfunction 03/13/2022 History of bradycardia 03/13/2022 Family history of prostate cancer 03/13/2022 Complete heart block (CMS/HCC) 04/06/2020 Overview (11/02/2023): Added automatically from request for surgery [id number] Last Assessment & Plan: History of biventricular pacemaker that was upgraded to [employer] defibrillator in September. Device interrogated today with [...] call cardiology office as well. Aspiration pneumonia (CMS/HCC) 02/08/2023 02/05/2024 Hyperlactatemia 02/08/2023 11/03/2023 Viral pneumonia [...] starting statin -No need for ischemic evaluation group home (current) use of o ral hypoglycemic drugs 04/06/2022 11/03/2023 Other specified diseases of upper respiratory tract 04/06/2022 11/03/2023 Presence of automatic (impla ntable) cardiac defibrillator 04/06/2022 02/05/2024 Cardiac pacemaker in situ 03/13/2022 Uncontrolled type 2 diabetes mellitus with hyperglycemia 04/06/2020 02/05/2024 Overview (11/02/2023): Last Assessment & Plan: Encounters Date Type Department Care Team Description 02/23/2025 Telephone [facility] [address] [place] [address] Name, MD Yoandy Durable Medical Equipment (Glucerna) 02/20/2025 10:00 AM EST Office Visit [facility] [address] [place] [address] Name, MD Yoandy Type 2 diabetes mellitus with other circulatory complication, without long-term current use of insulin (HCC) (Primary Dx); Poor appetite; Weight loss; Food insecurity; Encounter for vaccination; Encounter for immunization; Heart transplant recipient (CMS/HCC) (HCC); History of [place] (myocardial infarction) 02/20/2025 Patient Outreach [facility] [address] [place] [address] Name, MD Yoandy Care Coordination (CHW outreach for SDOH housing search-referral completed ) 02/20/2025 Travel 12/30/2024 Orders Only GENERIC EXTERNAL DATA DEPARTMENT Provider, Generic External Data from Last 3 Months Immunizations Immunization Administration Dates Next Due Hep B, adult 11/26/2023 Influenza High-dose Quadriva lent Preservative Free 01/12/2023 Influenza, High Dose Seasona l, Preservative Free 02/20/2025 Influenza, trivalent, adjuvanted 12/16/2023 Pfizer Covid-19 Vaccine 12+ 02/20/2025,1 04/06/2023,01/10/2021,2020 Pfizer Covid-19 Vaccine 12+ Bivalent 02/25/2022 Pneumococcal [...] Answer Date Recorded Patient Health Questionnaire-9 Score 16 02/20/2025 Patient Health Questionnaire-9 Score 16 02/20/2025 Last PHQ-9: Questionnaire Data Not on file 1 04/22/2024 Housing Stability Answer Date Recorded What is your housing situation today? I have tien stanley 02/20/[address] you li ve. Do you have problems with any of the following? None of the above 02/20/2025 Food Insecurity Answer Date Recorded Within the past 12 months, y ou worried that your food would run out before you got money to buy more: Never True 02/20/2025 Within the past 12 months,th e food you bought just didn't last and you didn't have enough money to get more: Never True Transportation Answer Date Recorded In the past 12 months, has l ack of transportation kept you from medical appts, meetings, work or from getting things needed for daily living? Yes, it has kept me from medical appointments or getting medications. 02/20/2025 Utilities Answer Date Recorded In the past 12 months, has t he electric, gas, oil or water company threatened to shut off services in your home? No 02/20/2025 Depression Answer Date Recorded Patient Health Questionnaire-2 Score 6 02/20/2025 Internet Access Answer Date Recorded Internet Access Q1 Yes 02/20/2025 Internet Access Q2 Not on file 02/20/2025 Sex and Gender Information Value Date Recorded Sex Assigned at Male 02/03/2022 10:39 AM EDT Legal Sex Male 10:39 AM EDT Gender Identity Male 02/03/2022 10:39 AM EDT Sexual Orientation Straight 02/03/2022 10 :39 AM EDT Last Filed Vital Signs Vital Sign Reading Time Taken Comments Blood Pressure 126/72 02/20/2025 9:51 AM EST Pulse 115 02/20/2025 9:51 AM EST Temperature 36.7 C (98 F) 02/20/2025 9:51 AM EST Respiratory Rate 18 02/20/2025 9:51 AM EST Oxygen Saturation 97% 02/20/2025 9:51 AM EST Inhaled Oxygen Concentration - - Weight 62.3 kg (137 lb 6.4 oz) 02/20/2025 9:51 A M EST Height 172.7 cm (5' 8 ) 02/20/2025 9:51 AM EST Body Mass Index 20.89 02/20/2025 9:51 AM EST Plan of Treatment Upcoming Encounters Date Type Department Care Team (Late st Contact Info) Description 05/23/2025 9:00 AM EST Office Visit [facility] [address] [place] [address] Name, MD Yoandy [address] [place] [address] Health Maintenance Due Date Last Done Comments CT Colonography 1955 Colonoscopy 1955 FIT 1955 Sigmoidoscopy 1955 RSV Patients and Patients Aged 60 years or older (1 - Risk 50-74 years 1-dose series) 06/18/2005 Hepatitis B Vaccines (2 of 3 - 19+ 3-dose series) 12/24/2023 11/26/2023 Zoster Vaccines (2 of 2) 01/21/2024 11/26/2023 FOBT 01/22/2024 01/21/2023 Lipid Panel 01/25/2025 01/26/2024, 06/05, 06/23/2022, Additional history exists Diabetes: Foot Exam 02/04/2025 02/05/2024, Diabetes: Urine Protein Screening 04/14/2025 04/14/2024, 06/23/2022, 05/29/2021 Diabetes: Hemoglobin A1C 06/18/2025 025, 07/27/2024, 05/26/2024, Additional history exists Eye Exam 07/07/2025 07/07/2024, 04/0 06/2024, 07/07/2024, Additional history exists COVID-19 Vaccine (6 - Mixed Product risk season) 2025 02/20/2025, 02/05/2024, 02/25/2022, Additional history exists Depression Monitoring 08/20/2025 02/20/2025, 025 Colorectal Cancer Screening 01/21/2026 FIT DNA/Cologuard 01/21/2026 01/21/2023 Alcohol/Substance Use Screening 02/20/2026 02/20/2025 SDOH Screening 02/20/2026 02/20/2025 Tobacco Screening 02/20/2026 02/20/2025 DTaP/Tdap/Td Vaccines (2 - Td or Tdap) 05/30/2031 05/30/2021 Pneumococcal Vaccine: 50+ Years Completed 01/12/2023, 05/30/2021 Hepatitis C Screening Discontinued 11/24/2023 Influenza Vaccine Completed 02/20/2025, , 01/12/2023 HIB [...] Type Associated Problems Recent Progress Patient-Stated? Author Help patients manage their type 2 diabetes Care Plan Help patients manage their type 2 diabetes Americo Everett MA Patient has chronic kidney disease Care Plan Patient has chronic kidney disease Americo Everett MA Patient has chronic kidney disease Care Plan Patient has chronic kidney disease No Eduardo Ahmadi Patient has chronic kidney disease Care Plan Patient has chronic kidney disease Cindy Myers Procedures Procedure Name Priority Date/Time Associated Diagnosis Comments POCT GLUCOSE Routine 02/20/2025 9:52 AM EST Type 2 diabetes mellitus with other circulatory complication, without long-term current use of insulin (HCC) GLUCOSE, WHOLE BLOOD Routine 01/27/2025 3:15 PM EDT GROSS AND MICROSCOPIC LEVEL 3 Routine 01/19/2025 10:42 AM EDT GLUCOSE, WHOLE BLOOD Routine 12/30/2024 3:47 PM EDT POCT GLYCATED HEMOGLOBIN, TOTAL Routine 07/27/2024 10:59 AM EDT Type 2 diabetes mellitus with other circulatory complication, without long-term current use of insulin ([facility]) ALBUMIN, RANDOM URINE W/CREATININE Routine 04/14/2024 11:04 AM EST Type 2 diabetes mellitus with other circulatory complication, without long-term current use of insulin ([facility]) LIPID PANEL, STANDARD Routine 06/27/2022 9:53 AM EDT from Last 3 Months or Most Recently Relevant to Health Maintenance Results * (ABNORMAL) POCT Glucose (02/20/2025 9:52 AM EST) Glucose Blood, POC 220(A) 60 - 200 mg/dL QC Media Lot # [id number] Lot# Expiration Date Blood Capillary blood specimen / Unknown 02/20/2025 9:52 AM EST Yoandy Tillman MD POINT OF CARE TEST ENTER/EDIT OR DERABLES Final Result * Glucose, Whole Blood (01/27/2025 3:15 PM EDT) Only the most recent of2 resultswithin the time period is included. Glucose, Whole Blood 106 60 - 115 mg/dL [facility] Comment:METER #: [id number] 0Testing performed in the Endocrinology Department [address] , [address], [facility]. 01/27/2025 3:15 PM EDT 01/27/2025 3:23 PM EDT us Generic External Data Provider LAB BLOOD ORDERAB LES Final Result [facility] [address] [place] [address] [phone] * Gross and Microscopic Level 3 (01/19/2025 10:42 AM EDT) 01/19/2025 10:4 2 AM EDT 01/20/2025 9:10 AM EDT Narrative [facility] - 01/23/2025 2:18 PM EDT ----- ------- Name: Matthew Toro Age/Sex: 69/M : 1955 Unit#: [id number] Attend Dr: Tamiko Ceballos DPM Re01/19/25 Status: ARIS REF Location: [facility] Disch: ----- ------- SPEC : [id number] RECD: 01/20/25 STATUS: DON PHAN NUM: [id number] TIM: 01/19/[address] [facility] [address]: Tamiko Ceballos DPAnderson ENTERED: 01/20/25 SP [...] developed and their performance characteristics determined by [facility]. They have not been cleared or approved by the U.S. Food and Drug Administration (FDA). However, the FDA has determined that such clearance or approval is not necessary. This laboratory is certified under the Clinical Laboratory Improvement Amendments of 1988 (CLIA) as qualified to perform high complexity clinical laboratory testing. Copies To: [place] [address] CONTINUED ON NEXT PAGE ----- ------- Name: Matthew Toro Age/Sex: 69/M : 1955 Unit#: [id number] Attend Dr: Tamiko Ceballos DPM Re01/19/25 Status: DEP REF Location: [facility] Disch: ----- ------- SPEC : [id number] RECD: 01/20/25 STATUS: DON PHAN NUM: [id number] TIM: 01/19/[address] [facility] [address]: Tamiko Ceballos DPM ENTERED: 01/20/25 SP TYPE: Surgical OTHR DR: Yoandy Tillman MD ORDERED: Gross Micro L3 Copies To: (Continued) Tamiko Ceballos DPM [facility] Podiatry-[facility] [address] [place] [address] [email or web address] ----- ------- Signed (signature on file) Shruti Miranda 01/23/25 1418 ----- ------- END OF REPORT us Generic External Data Provider LAB CYTOLOGY DONNIE MOTT Final Result [facility] [address] [place] [address] [phone] * POCT HGB A1C (07/27/2024 10:59 AM EDT) Hemoglobin A1C 5.7 4.0 - 6.0 % QC Media Lot # [id number] Lot# Expiration Date [id number] Blood 07/27/2024 10:5 9 AM EDT us Yoandy Tillman MD POINT OF CARE TEST ENTER/EDIT OR DERABLES Final Result * Albumin, Random Urine W/Creatinine (04/14/2024 11:04 AM EST) Creatinine, Urine 109.08 mg/dL [facility] Microalbumin Urine 6.0 mg/L [facility] Microalbum Creatinine Ratio Ur 5.5 <30 ug/mg cr [facility] Comment:Albumin/Creatinine R atio Reference Ranges: Normal: < 30 ug/mg creatinine Microalbuminuria: 30 - 300 ug/mg creatinineClinical Albuminuria: > 300 ug/mg creatinine Urine (Urine, Random) 04/14/2024 11:04 AM EST 04/14/2024 1:04 PM EST us Yoandy Tillman MD LAB URINE ORDERABLES Final Resul t [facility] [address] [place] [phone] * Lipid Panel, Standard (06/27/2022 9:53 AM EDT) Triglycerides 84 mg/dL [facility] Comment:Desirable Triglyceri de: less than 150 mg/dLBorderline High Triglyceride 150-199 mg/dLHigh Triglyceride: 200-499 mg/dLVery High Triglyceride: greater than or equal to 5OO mg/dL Cholesterol 154 mg/dL [facility] Comment:Desirable Cholestero l: less than 200 mg/dLBorderline High Cholesterol: 200-239 mg/dLHigh Cholesterol: greater than 239 mg/dL LDL Cholesterol Calculated 104 mg/dl [facility] Comment:Desirable LDL: less than 100 mg/dLNear Optimal/Above Optimal LDL: 110- 129 mg/dLBorderline High LDL: 130-159 mg/dLHigh LDL: 160-189 mg/dLVery High LDL: greater than or equal to 190 mg/dL HDL Cholesterol 34 mg/dL [facility] Comment:Desirable HDL: great er than 40 mg/dL Note: This HDL assay may give artificially low results in patients with liver disease. 06/27/2022 9:53 AM EDT 06/27/2022 9:53 AM EDT us [facility] External Provider LAB BLO OD ORDERABLES Final Result Performing Organization Address City/State/[facility] Co de Phone Number [facility] [address] [place] [address] [phone] from Last 3 Months or Most Recently Relevant to Health Maintenance Additional Health Concerns Active Problems Noted Date Diagnosed Date Help patients manage their type 2 diabetes 02/16 Patient has chronic kidney disease 02/16/2025 Patient has chronic kidney disease 02/20/2025 Patient has chronic kidney disease 02/23/2025 Insurance MEDICARE [facility] STANDARD [facility] MEDEX MEDICARE SUPPLEMENT Care Teams Changer Fixer Relationship Specialty Start Date End Date Name, MD Yoandy [address] [place] [phone] PCP - General Internal Medicine [facility] [place] 01/19/24
--- OUTSIDE RECORDS SUMMARY | 2025-03-07 11:43 | XMS_ITS | Encounter Summary ---
Author Organization [employer] Address [address] [facility] [address] [place] [address] Care Team Providers Care Orthotist Prosthetist Name Role Phone Name, Yoandy LUGO Primary Care Provider [phone] Name, Yoandy LUGO Primary Care Provider [phone] Encounter Details Date Type Department Care Team (Late st Contact Info) Description 03/21/2022 Orders Only [facility] MEDICINE [address] [place] [address] Coby Flores RN Social History Tobacco Use [...] Description 05/23/2025 9:00 AM EST Office Visit [facility] MEDICINE [address] [place] [address] Name, MD Yoandy [address] [place] [address] documented as of this encounter Procedures Procedure Name Priority Date/Time Associated Diagnosis Comments B TYPE NATRIURETIC PEPTIDE (BNP) Routine 06/27/2022 9:53 AM EDT HEPATIC FUNCTION PANEL Routine 06/27/2022 9:53 AM EDT LIPID PANEL, STANDARD Routine 06/27/2022 9:53 AM EDT BASIC METABOLIC PANEL Routine 06/27/2022 9:53 AM EDT documented in this encounter Results * Lipid Panel, Standard (06/27/2022 9:53 AM EDT) Triglycerides 84 mg/dL [facility] Comment:Desirable Triglyceri de: less than 150 mg/dLBorderline High Triglyceride 150-199 mg/dLHigh Triglyceride: 200-499 mg/dLVery High Triglyceride: greater than or equal to 5OO mg/dL Cholesterol 154 mg/dL [facility] Comment:Desirable Cholestero l: less than 200 mg/dLBorderline High Cholesterol: 200-239 mg/dLHigh Cholesterol: greater than 239 mg/dL LDL Cholesterol Calculated 104 mg/dl [facility] Comment:Desirable LDL: less than 100 [...] 9:53 AM EDT 06/27/2022 9:53 AM EDT [facility] External Provider LAB BLO OD ORDERABLES Final Result [facility] [address] [place] [address] [phone] * (ABNORMAL) Basic Metabolic Panel (06/27/2022 9:53 AM EDT) Sodium 143 135 - 145 mmol/L [facility] Potassium 4.6 3.3 - 5.1 mmol/L [facility] Chloride 108 96 - 108 mmol/L [facility] Carbon Dioxide 26 22 - 29 mmol/L [facility] Anion Gap 14 12 - 20 [facility] Urea Nitrogen (BUN) 13 9 - 16 mg/dL [facility] Creatinine, Serum 1.02 0.5 - 1.4 mg/dL [facility] Estimated Glomerular Filt Rate >60 [facility] Comment:NOTE: For -Am erican individuals, multiply the result by 1.210.Chronic Kidney Disease: Estimated GFR < 60 mL/min/1.53i5Nokpot Kidney Disease: Estimated GFR < 15 mL/min/1.73m2 Glucose 141(H) 60 - 115 mg/dL [facility] Calcium 9.4 8.4 - 10.2 mg/dL [facility] 06/27/2022 9:53 AM EDT 06/27/2022 9:53 AM EDT [facility] External Provider LAB BLO OD ORDERABLES Final Result Performing Organization Address [facility] Co de Phone Number [facility] [address] [place] [phone] * Hepatic Function Panel (06/27/2022 9:53 AM EDT) Bilirubin, Total 1.0 0.0 - 1.0 mg/dL [facility] Bilirubin, Direct 0.3 0.0 - 0.5 mg/dL [facility] Aspartate Amino Transferase 19 5 - 37 U/L [facility] Alanine Aminotransferase 24 0 - 40 U/L [facility] Total Protein 6.7 6.5 - 8.0 g/dL [facility] Albumin Level 4.2 3.5 - 5.0 g/dL [facility] Alkaline Phosphatase 61 39 - 117 U/L [facility] 06/27/2022 9:53 AM EDT 06/27/2022 9:53 AM EDT [facility] External Provider LAB BLO OD ORDERABLES Final Result Performing Organization Address [facility] de Phone Number [facility] [address] [place] [phone] * (ABNORMAL) B Type Natriuretic Peptide (BNP) (06/27/2022 9:53 AM EDT) B Type Natriuretic Peptide 332(H) <100 pg/mL [facility] Comment:For those patients w ho are being treated with Natrecor(nesiritide, recombinant BNP), BNP testing should beperformed at least two hours post treatment in order toensure that only endogenous levels of BNP are detected. 06/27/2022 9:53 AM EDT 06/27/2022 9:53 AM EDT [facility] External Provider LAB BLO OD ORDERABLES Final Result [facility] [address] [place] [phone] documented in this encounter Visit Diagnoses Not on filedocumented in this encounter Care Teams Orthotist Prosthetist Relationship Specialty Start Date End Date NameYoandy MD [address] [place] [address] PCP - General Family Medicine 01/18/21 06/04/23 Name, MD Yoandy [address] [place] [address] PCP - General Internal Medicine 10/19/23 [facility] 01/19/24 documented as of this encounter
--- OUTSIDE RECORDS SUMMARY | 2025-03-07 11:43 | XMS_ITS | Encounter Summary ---
Author Organization [employer] Address [address] [facility] 7t [place] [address] Care Team Providers Care Aviation Mechanic Name Role Phone Name, Yoandy LUGO Primary Care Provider Name, Yoandy LUGO Primary Care Provider [phone] Reason for Visit * Reason Onset Date Comments FYI 10/01/2022 Encounter Details Date Type Department Care Team ([facility] st Contact Info) Description 10/01/2022 Telephone [facility] MEDICINE [address] [place], [place] [phone] Name, MD Yoandy [address] [place] [address] FYI Social History Tobacco Use Types Packs/Day [...] 10/01/2022 3:26 PM EDT Tc from [facility] facility that patient during their vacation in [place] had two Heart Attacks and is currently hospitalized since 09/15/2022 at the [facility] documented in this encounter Plan of Treatment Upcoming Encounters Date Type Department Care Team (Late st Contact Info) Description 05/23/2025 9:00 AM EST Office Visit [facility] MEDICINE [address] [place] [address] Name, MD Yoandy [address] [place] [phone] documented as of this encounter Visit Diagnoses Not on filedocumented in this encounter Care Teams Aviation Mechanic Relationship Specialty Start Date End Date Name, MD Yoandy [address] [place] [phone] PCP - General Family Medicine 01/18/21 06/04/23 Name, MD Yoandy [address] [place] [phone] PCP - General Internal Medicine 10/19/23 [facility] 01/19/24 documented as of this encounter
--- OUTSIDE RECORDS SUMMARY | 2025-03-07 11:43 | XMS_ITS ---
Author Organization [facility] Address [address] [facility] [place] [address] Care Team Providers Care Precision Printing Worker Name Role Phone Glenn Herman MD Unavailable [phone] NameYoandy MD Primary Care Provider [phone] Edward Handley deckhand Unavailable Unavailable Jennie Michelle PharmD Unavailable [phone] Juan Hutchinson MD Unavailable [phone] Transplant Episode Heart Recipient [facility] ([place], [place]) - MAN Organ Received: Heart Transplanted on 12/28/2023 Marked as Active Follow-up on 12/28/2023 Heart CoordinatorZackery Paulino RN Phone: N/A Fax: N/A Email: N/A [place] Organ Diagnosis Organ Primary Contributory Heart Dilated [...] Role Phone Fax Email Zackery Paulino RN Manager Strategic N/A N/A N/A Glenn Herman MD Referring Physician [phone] N/A Izaiah Watt MD Supervisor [employer] [phone] N/A Events Post-Transplant Pre-Transplant Admitted: 11/23/2023 Referred: 11/09/2023 Transplanted: 12/28/2023 Evaluation began: 4 Discharged: 01/14/2024 Committee: 12/21/2023 Center waitlisted: 4 Appointments (02/05/2025 - 04/07/2025) When With Visit Type Description 02/06/2025 Derm - [facility] [place] [facility] New Patient Eczema c raquele (Primary Dx); Tinea cruris; Onychomycosis; Irritant contact dermatitis due to other agents; Sharp angioma; Immunosuppression 03/20/2025 Cardiology - Carmen Barry Follow Up Sp ecialty Appointment
--- OUTSIDE RECORDS SUMMARY | 2025-03-07 11:43 | XMS_ITS | Data Portability ---
Author Organization [facility], Allergy Address [address] [facility] [address] [place] [address] Assessment Encounter Date Assessment Date Assessment LastModified by Organization Details LastModified Time 02/25/2024 02/25/2024 68-year-old male presents today for evaluation of stridor and tracheal stenosis. Symptoms seem to worsen about 3 weeks ago following dilation in November. Of note he had heart transplant about 2 months ago at [facility]. Flexible laryngoscopy did not reveal [...] heart transplant. Thank you. 2023 Tarsha wagner [facility], [address] [facility], [place], [address], 09:56:34 Procedures None recorded. Surgeries None recorded. Imaging None recorded. Medication Orders None recorded. Patient TargetsNo targets recorded. Patient InstructionsNo instructions recorded. Reason for Referral Wrap Turner Referral for T gaby stenosis following tracheostomy Established patient of Dr Alegre. Needs follow up appt/repeat endoscopy. Patient has recent heart transplant. Thank you. Referring Physician: Sandip Regalado, Otolaryngology, Encounter Date: 02/25/2024 Problems Name Problem SNOMED Code Status Onset Date Resolution Date Notes Provider Name and Address Organization Details Recorded Time Tracheal stenosis following tracheostomy 01855851 Active 2023 SANDIP REGALADO MD [address] [facility],[place] [address], [place], [phone], [facility] - [facility] 4 12:10:02 Sensorineural hearing loss of bilateral ears 616771131 Active 2024 BORA GRAY, [facility] [address] [facility],[place] [address], [place], [phone], [facility] 5 16:02:33 Problem Notes None recorded. Procedures Surgical History Date Name Laterality Status Provider Name and Address Organization Details Recorded Time 04/15/19 25 Comp Audio with Tymps - 43912 & 16449 completed BORA GRAY [address],[place] [address], [place], [address], [facility] 04/15/2024 16:02:37 02/25/20 24 Fiberoptic Laryngoscopy (Comprehensive) completed SANDIP REGALADO MD [address] [place] [address],[address], [address], [facility] 02/25/2024 12:11:38 Imaging Results None recorded. [...] Not Available Not Available Comfort EZ Pen [place] 32 gauge x 5/32 active Not Available [...] Updated DateTime 04/15/2024 172.72 cm 20.2 kg/m2 25970.79 g Manda Ly [facility] 04/15/2024 16:28:34 Date Recorded Body height Body mass index (BMI) Body weight Provider Name and Address Organization Details Last Updated DateTime 02/25/2024 172.72 cm 26.8 kg/m2 91397.26 g Manda Ly [facility] 02/25/2024 11:47:14 Social History None recorded. Functional Status None recorded. Mental Status None recorded. Family History Nothing Reported. Medical History Condition Response Diabetes Y Heart Problems Y Hyperlipidemia Y Past Encounters Encounter ID Performer Location Encounter Start Date Encounter Closed Date Diagnosis/Indication Diagnosis SNOMED-CT Code Diagnosis ICD10 Code Diagnosis IMO Codes Diagnosis Note [id number] SANDIP REGALADO MD [facility] [address] [address] 02/25/2024 11:26:24 02/25/2024 12:26:39 Tracheal stenosis following tracheostomy 95404190 J95.03 [id number] SANDIP REGALADO MD [facility] [address] [address] 04/15/2024 15:37:29 04/15/2024 16:57:22 Sensorineural hearing loss of bilateral ears 272043501 H90.3 68 yo M with a history [...] and there was likely some irritation here. [id number] JACQUE LUGO [facility] [address] [address] 04/15/2024 15:59:22 04/18/2024 07:41:17 Sensorineural hearing loss of bilateral ears 599698408 H90.3 Right Ear:Normal hearing through 1.5K Hz [...] Name 06/15/2024 2 [place] [id number] Matthew L Avila [id number] Matthew Donny Avila Avila 06/15/2024 1 [place] [employer] Matthew Avila Avila [id number] Matthew Donny Avila Avila 06/15/2024 2 [place] [facility] Matthew L Avila Avila [id number] Matthew Donny Avila Avila Notes Date Note [...] corrected for lung volume SANDIP REGALADO MD [address] [place] [address],[address], [address], [facility] 02/26/2024 10:58:54 04/15/2024 text/html Starting feeling numb on the side of the ear right after his surgeryTTP over jaw Has seen Dr. Walotn. SANDIP REGALADO MD [address] [place] [address],[address], [phone], [facility] 04/18/2024 07:25:33
--- OUTSIDE RECORDS SUMMARY | 2025-03-07 11:43 | XMS_ITS ---
Author Organization [facility] Address [address] [facility], [address] [place] [address] Care Team Providers Care Business Loan Processor Name Role Phone Glenn Herman MD Unavailable [phone] Yoandy Tillman MD Primary Care Provider [phone] Edward Handley CPhT Unavailable Unavailable Jennie Michelle PharmD Unavailable [phone] Juan Hutchinson MD Unavailable [phone] RxSp Transplant Status:Enrolled (Active) Start date:12/31/2023 Enrollment [...] [place] 12/28/2023 Case Team Name Relationship Phone Leon Handley cost accounting manager(Responsible Staff) Embedded Firmware Engineer Jennie Michelle PharmD Pharmacist [phone] Continued Care and Services Coordination
--- OUTSIDE RECORDS SUMMARY | 2025-03-07 11:43 | XMS_ITS | Encounter Summary ---
Author Organization [facility] Address [address] [facility] [address] [place] [address] Care Team Providers Care Salicylic Acid Blender Name Role Phone Glenn Herman MD Unavailable [phone] Yoandy Tillman MD Primary Care Provider [phone] Edward Handley bsw Unavailable Unavailable Jennie Michelle PharmD Unavailable [phone] Juan Hutchinson MD Unavailable [phone] Reason for Visit * Reason Comments Med Change Request Encounter Details Date Type Department Care Team (Late st Contact Info) Description 03/17/2024 Refill [facility] Cardiac Subspecialty [address] [facility] [address] [place] [address] Charlie Barry MD [address] [place], [place] [phone] 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) Social History [...] - 03/17/2024 4:02 PM EST Filled at [facility] documented in this encounter Plan of Treatment Upcoming Encounters Date Type Department Care Team (Late st Contact Info) Description 03/20/2025 12:00 PM EST Office Visit [facility] Cardiac Subspecialty [address] [phone] Charlie Barry MD [address] [place] [address] 05/15/2025 1:00 PM EST Office Visit [facility] Dermatology [address] [place] [address] Nelida Ayala MD [address] [place] [address] 07/06/2025 1:00 PM EDT Office Visit [facility] Lung Nodule [address] [facility] [address] [place] [phone] Alfred Mckeon MD [address] [place] [address] 07/06/2025 1:30 PM EDT Office Visit [facility] Lung Nodule [address] [facility] 4th [place] [address] , Yoav Lung Nod Pul 07/12/2025 10:30 AM EDT Appointment [facility] Pulmonary Function Lab [address] [facility] 5th Floor Room [address] [place] [address] 07/12/2025 11:30 AM EDT Office Visit [facility] 3rd [place] [address] Daysi Fink MD [address] [facility] [address] [place] [address] documented as of this encounter Visit Diagnoses Diagnosis Heart replaced by transplant Cytomegalovirus infection, unspecified cytomegaloviral infection type documented in this encounter Care Teams Salicylic Acid Blender Relationship Specialty Start Date End Date Name, MD Yoandy [address] [place] [address] PCP - General High Density Press Laborer 11/12/23 Glenn Herman MD [address] [place] [address] Referring Physician Cardiology 11/12/23 Edward Handley CPhT Corporate Banking Officer Pharmacy 12/31/23 Jennie Michelle, PharmD [address] [place] [phone] Pharmacist Pharmacy 01/27/24 Juan Hutchinson MD [address] [place] [address] [address] [place] [address] Attending Physician Cardiology 12/19/24 documented as of this encounter
[2025-03-09 00:34] LABS: CMV DNA Qn PCR <1.54 DETECTED Log IU/mL (NOT DETECTED)
== END 2025-03-07 10:15 | disposition home or self-care (01) ==
LOC: HO.LABR 10:14
PROVIDERS: PCP Internal Medicine Geriatric Medicine; Visit Provider Nurse Practitioner Family
DX: B25.9 Cytomegaloviral disease, unspecified (principal); E11.8 Type 2 diabetes mellitus with unspecified complications
CPT/HCPCS: 36415; 87497; 99211

== ENCOUNTER 2025-03-07 10:38 | Outpatient (AMB) | payer MEDICARE, SELFPAY ==
--- NOTE | 2025-03-07 11:32 | MHC.AMDMED ---
Intake Intake Visit Reasons: T2DM/pt interested in pump Accompanied by: Spouse Allergies lisinopril Allergy (Mild, Verified 01/27/25 15:18) Swelling HPI Comprehensive Diabetes Asmnt Most Recent Diabetes Results: Creatinine, (0.5-1.4) 0.99 mg/dL 01/27/25 BUN, (9-16) 12 mg/dL 01/27/25 Sodium, (135-145) 146 mmol/L H 01/27/25 Potassium, (3.3-5.1) 4.2 mmol/L 01/27/25 Chloride, (96-108) 110 mmol/L H 01/27/25 Carbon Dioxide, (22-29) 31 mmol/L H 01/27/25 Calcium, (8.4-10.2) 9.7 mg/dL Δ 01/27/25 AST, (5-37) 10 U/L 01/27/25 ALT, (0-40) 15 U/L 01/27/25 Total Protein, (6.5-8.0) 6.5 g/dL 01/27/25 Albumin, (3.5-5.0) 4.5 g/dL 01/27/25 ON LICENSE OF [facility] Medical History (Updated 01/19/25 @ 10:53 by Tamiko Ceballos DPM) Varicose veins of both lower extremities Tinea unguium Nail disorder Nail dystrophy Diabetic neuropathy Diabetes Pacemaker Surgical History Hx of heart transplant History of cardiac catheterization (~10/2021) History of cataract surgery Family History Father Diabetes Heart problem Brother Heart attack Social History Alcohol intake: never Patient Tobacco Use Status: Never used Tobacco Assessment & Plan Assessment & Plan (1) Type 2 diabetes mellitus with unspecified complications: Code(s): E11.8 - Type 2 diabetes mellitus with unspecified complications Plan: Personal Continuous Glucose Monitor: Patients CGM information reviewed, Pt uses Jaswinder for 3+ with reader After reducing Lantus to 16 units, patient's percentage of hypoglycemia has been reduced from 5% to 0% Patient and his are interested in iLet insulin pump At today's visit we reviewed how to fill cartridge with insulin, insert cartridge into insulin pump an insert infusion set into abdomen Discuss when to announce meals in the importance of announcing meals if it is not done prior to eating. Patient in his given list of carbohydrates, instructed them to identify foods they are currently eating that contain carbohydrates. Told him only to announce meals that contain carbohydrates Patient will use freestyle Jaswinder 3+ sensor with insulin pump Patient able to insert sensor independently at home without issue.? Instructed patient and his when they receive insulin pump to call to set up insulin pump training appointment Portions of this note were created using voice recognition software, please excuse any words or phrases that may have been misinterpreted. Coding Level of Care Code Est Pt Level 1 (57156) Diagnoses Type 2 diabetes mellitus with unspecified complications E11.8
== END 2025-03-07 11:37 | disposition home or self-care (01) ==
LOC: HO.ENCR 10:39
PROVIDERS: PCP Internal Medicine Geriatric Medicine; Visit Provider Registered Nurse Diabetes Educator
DX: E11.8 Type 2 diabetes mellitus with unspecified complications (principal)

== ENCOUNTER 2025-03-13 11:05 | Outpatient (REF) | payer MEDICARE, SELFPAY | END 2025-03-13 11:06 | disposition home or self-care (01) | LOC: HO.LABR 11:05 | PROVIDERS: Visit Provider Nurse Practitioner Family | DX: B25.9 Cytomegaloviral disease, unspecified (principal) | CPT/HCPCS: 36415; 87497 ==

== ENCOUNTER 2025-03-22 10:33 | Outpatient (REF) | payer MEDICARE, SELFPAY ==
--- OUTSIDE RECORDS SUMMARY | 2025-03-20 12:00 | XMS_ITS | Encounter Summary ---
Author Organization [facility] Address [address] [facility] [address] [place] [address] Care Team Providers Care Bean Snipper Name Role Phone Glenn Herman MD Unavailable [phone] NameYoandy MD Primary Care Provider Edward Handley [facility] Unavailable Unavailable Jennie Michelle PharmD Unavailable [phone] Juan Hutchinson MD Unavailable [phone] Charlie Barry MD Unavailable [phone] Encounter Details Date Type Department Care Team (Late st Contact Info) Description 03/20/2025 12:00 PM EST Office Visit [facility] Cardiac Subspecialty [address] [facility] 6th [place] [address] Charlie Barry MD [address] [place] [address] Heart transplant recipient; Mixed hyperlipidemia Social History [...] Sign Reading Time Taken Comments Blood Pressure 124/78 03/20/2025 12:36 PM EST Pulse 98 03/20/2025 12:36 PM EST Temperature 36.7 C (98 F) 03/20/2025 12:36 PM EST Respiratory Rate - - Oxygen Saturation 99% 03/20/2025 12:36 PM EST Inhaled Oxygen Concentration - - Weight 61.7 kg (136 lb) 03/20/2025 12:36 PM EST Height 172.7 cm (5' 7.99 ) 03/20/2025 12:[address] Body Mass Index 20.68 03/20/2025 12:36 PM EST documented in this encounter Functional Status * Temp src Answer Date of Assessment Author Oral 03/20/2025 12:36 PM Willy Michael [place] * Abuse/Neglect Question Answer Date of Assessment Author Do you feel safe at home? Unable to Answer- Cognitive Impairment 03/20/2025 12:39 PM Jasmine Michael MA Do you feel safe in all your relationships? Unable to Answer- Cognitive Impairment 03/20/2025 12:39 PM Jasmine Michael MA * BP Location Answer Date of Assessment Author Left arm 03/20/2025 12:36 PM Willy Michael [place] * Fall Risk Assessment Question Answer Date of Assessment Author Have you fallen in the last 12 months? No 03/20/2025 12:38 PM Jasmine Michael [place] Do you use any assistive devices? No 025 12:38 PM Jasmine Michael [place] Do you need assistance with ambulating? No 03/20/2025 12:38 PM Jasmine Michael [place] * IBW (kg) (Calculated) Answer Date of Assessment Author 68.38 03/20/2025 12:36 PM Willy Michael MA * Patient Position Answer Date of Assessment Author Sitting 03/20/2025 12:36 PM Willy Michael MA * Are you deaf or do you [...] of Assessment Author No 11/26/2023 11:17 AM EDBethany Hood RN * Because of a physical, mental, or emotional condition, do you have difficulty doing errands such asvisiting the doctor's office or shopping? Answer Date of Assessment Author No 11/26/2023 11:17 AM Bethany Padilla RN * Temp src Answer Date of Assessment Author Oral 03/20/2025 12:36 PM Willy Michael MA documented as of this encounter Mental Status * Fall Risk Assessment Question Answer Entry Date Author Have you fallen in the last 12 months? No 03/20/2025 12:38 PM Jasmine Michael [place] Do you use any assistive devices? No 12:38 PM Jasmine Michael [place] Do you need assistance with ambulating? No 03/20/2025 12:38 PM Jasmine Michael [place] * Because of a physical, mental, or emotional condition, do you have serious difficulty concentrating, remembering, or making decisions? Answer Entry Date Author Yes 11/26/2023 11:17 AM Bethany Padilla RN documented in this encounter Plan of Treatment Upcoming Encounters Date Type Department Care Team (Late st Contact Info) Description 05/15/2025 1:00 PM EST Office Visit [facility] Dermatology [address] [place] [address] Nelida Ayala MD [address] [place] [address] 07/06/2025 1:00 PM EDT Office Visit [facility] Lung Nodule [address] [phone] Alfred Mckeon MD [address] [place] [address] 07/06/2025 1:30 PM EDT Office Visit [facility] Lung Nodule [address] [phone] Yoav Portillo Lung Nod Pul 07/12/2025 10:30 AM EDT Appointment [facility] Pulmonary Function Lab [address] [facility] 5th Floor Room [address] [place] [address] 07/12/2025 11:30 AM EDT Office Visit [facility] Pulmonary [address] [facility] 3rd [place] [address] Daysi Fink MD [address] [facility] [address] [place] [phone] Pending Results Name Type Priority Associated Diagnoses Date /Time [facility] Single Time Point Lab Routine Heart transplant recipient 03/20/2025 1:58 PM EST Scheduled Orders Name Type Priority Associated Diagnoses Orde r Schedule [facility] Single Time Point Lab Routine Heart transplant recipient Expected: 03/20/2025 (Approximate), Expires: 03/16/2026 documented as of this encounter Goals Goal Patient Goal Type Associated Problems Recent Progress Patient-Stated? Author Autogenerat ed Goal Care Plan Autogenerated Problem No Cindy Aj documented as of this encounter Procedures Procedure Name Priority Date/Time Associated Diagnosis Comments CYSTATIN C WITH EGFR STAT 03/20/2025 1:58 PM EST Heart transplant recipient RBC MORPHOLOGY Routine 03/20/2025 1:58 PM EST TACROLIMUS LEVEL STAT 03/20/2025 1:58 PM EST Heart transplant recipient CMV DNA, QUANTITATIVE, RT-PCR STAT 03/20/2025 1:58 PM EST Heart transplant recipient CBC W/DIFF STAT 03/20/2025 1:58 PM EST Heart transplant recipient URIC ACID STAT 03/20/2025 1:58 PM EST Heart transplant recipient PHOSPHORUS STAT 03/20/2025 1:58 PM EST Heart transplant recipient MAGNESIUM STAT 03/20/2025 1:58 PM EST Heart transplant recipient LDH STAT 03/20/2025 1:58 PM EST Heart transplant recipient CK STAT 03/20/2025 1:58 PM EST Heart transplant recipient HEPATIC FUNCTION PANEL STAT 03/20/2025 1:58 PM EST Heart transplant recipient LIPID PANEL STAT 03/20/2025 1:58 PM EST Heart transplant recipient Mixed hyperlipidemia COMPREHENSIVE METABOLIC PANEL STAT 03/20/2025 1:58 PM EST Heart transplant recipient documented in this encounter Results * RBC Morphology (03/20/2025 1:58 PM EST) Slide Review [facility] 1 Comment: RBC Morphology See Indices A REFERENCE RANGE: Normal, Not Performed Toxic Granulation Present (none) A 03/20/2025 1:58 PM EST 03/20/2025 Narrative [facility] - 03/20/2025 4:15 PM EST Performed at: [address] [place] [address] [id number] Transportation Project Manager: Jim [facility]ning [facility], Phone: [phone] us Charlie Barry MD LAB BLOOD ORDERABLES Final Res ult [facility] [address] [place] [address], [facility] 1 * (ABNORMAL) CMV Quant DNA, RT-PCR, BLOOD (03/20/2025 1:58 PM EST) CMV Qn DNA PCR <30(H) Not Detected IU/mL [facility] 1 Comment: DETECTED The presence of CMV DNA is detected using the [employer] m CMV DNA assay but the concentration is below the level that can be accurately quantified. CMV DNA Viral Load, Interp Detected A REFERENCE RANGE: Not Detected log10 CMV Qn DNA <1.48(H) Not Detected log IU/mL [facility] 1 Comment: This test was performed using the [employer] m CMV DNA assay, performed on the [employer] m instrument Blood Venous blood specimen / Unknown 03/20/2025 1:58 PM EST 03/20/2025 Narrative [facility] - 03/21/2025 1:15 PM EST Performed at: [address] [place] [address] [id number] Transportation Project Manager: [facility], Phone: [phone] Charlie Barry MD LAB BLOOD ORDERABLES Final Res ult Performing Organization Address [facility] Co de Phone Number [facility] [address] [place] [address], [facility] 1 * Cystatin C with eGFR (03/20/2025 1:58 PM EST) [facility] Cystatin C 1.08 0.72 - 1.16 mg/L [facility] 1 eGFRcys 68 >59 mL/min/1.73 [facility] 1 Blood Venous blood specimen / Unknown 03/20/2025 1:58 PM EST 03/20/2025 Narrative [facility] - 03/21/2025 6:45 AM EST Performed at: [address] [place] [address] [id number] Transportation Project Manager: Iram Zambrano MD, Phone: [phone] Charlie Barry MD LAB BLOOD ORDERABLES Final Res ult Performing Organization Address [facility] de Phone Number [facility] [address] [place] [address], [facility] 1 * Tacrolimus level (03/20/2025 1:58 PM EST) [facility] Tacrolimus, LC-MS/MS 5.9 3.0 - 20.0 ng/mL [facility] 1 Comment: Performed by LC-MS/MS. Reference intervals are based on trough collection. Optimal therapeutic ranges depend on time post-transplant, dosing regimen, organ type, and concomitant immunosuppression therapy. Results should be interpreted in conjunction with physical signs/symptoms of rejection/toxicity. This test was developed and its performance characteristics determined by [facility]. It has not been cleared or approved by the FDA. The laboratory is regulated under CLIA as qualified to perform high-complexity testing. This test is used for clinical purposes. It should not be regarded as investigational or for research. Time of last dose See Comment Date of last dose See Comment Blood Venous blood specimen / Unknown 03/20/2025 1:58 PM EST 03/20/2025 Narrative [facility] - 03/21/2025 12:15 PM EST Test(s) [id number] ([id number]), Blood was developed and its performance characteristics determined by [facility]. It has not been cleared or approved by the Food and Drug Administration. Performed at: [address] [place] [address] [id number] Transportation Project Manager: [facility], Phone: [phone] us Charlie Barry MD LAB BLOOD ORDERABLES Final Res ult Performing Organization Address [facility] Co de Phone Number [facility] [address] [place] [address], [facility] 1 * Hepatic function panel (03/20/2025 1:58 PM EST) Bilirubin, Direct 0.1 0.0 - 0.5 mg/dL [facility] 1 Blood Venous blood specimen / Unknown 03/20/2025 1:58 PM EST 03/20/2025 Narrative [facility] - 03/20/2025 4:15 PM EST Performed at: [address] [place] [address] [id number] Transportation Project Manager: [facility], Phone: [phone] us Charlie Barry MD LAB BLOOD ORDERABLES Final Res ult Performing Organization Address [facility] Co de Phone Number [facility] [address] [place] [address], [facility] 1 * Uric Acid (03/20/2025 1:58 PM EST) Uric Acid 4.9 2.6 - 8.0 mg/dL [facility] 1 Comment: Although the reference interval for men extends up to 8.0 mg/dL, patients with gout may benefit from uric acid levels <6.0 mg/dL. Blood Venous blood specimen / Unknown 03/20/2025 1:58 PM EST 03/20/2025 Narrative [facility] - 03/20/2025 4:15 PM EST Performed at: [address] [place] [address] [id number] Transportation Project Manager: [facility], Phone: [phone] Charlie Barry MD LAB BLOOD ORDERABLES Final Res ult Performing Organization Address [facility] Co de Phone Number [facility] [address] [place] [address], [facility] 1 * Lipid panel (03/20/2025 1:58 PM EST) Cholesterol 156 100 - 199 mg/dL [facility] 1 Triglycerides 128 0 - 149 mg/dL [facility] 1 HDL Cholesterol 44 >39 mg/dL [facility] 1 VLDLc Calc 23 5 - 40 mg/dL [facility] 1 LDLc Calc (NIH) 89 0 - 99 mg/dL [facility] 1 Non-HDL Chol 112 0 - 129 mg/dL [facility] 1 Blood Venous blood specimen / Unknown 03/20/2025 1:58 PM EST 03/20/2025 Narrative [facility] - 03/21/2025 6:15 AM EST Performed at: [address] [place] [address] [id number] Transportation Project Manager: Iram Zambrano MD, Phone: [phone] Charlie Barry MD LAB BLOOD ORDERABLES Final Res ult Performing Organization Address [facility] Co de Phone Number [facility] [address] [place] [address], [facility] 1 * (ABNORMAL) CK (aka CPK) (03/20/2025 1:58 PM EST) CK Total 27(L) 41 - 331 U/L [facility] 1 Blood Venous blood specimen / Unknown 03/20/2025 1:58 PM EST 03/20/2025 Narrative [facility] - 03/21/2025 7:45 AM EST Performed at: [facility] [id number] Transportation Project Manager: Iram Zambrano MD, Phone: [phone] Charlie Barry MD LAB BLOOD ORDERABLES Final Res ult Performing Organization Address City/[facility]/ZIP Co de Phone Number [facility] [address] [place] [address], [facility] 1 * (ABNORMAL) Lactate dehydrogenase (03/20/2025 1:58 PM EST) LDH 263(H) 110 - 250 IU/L [facility] 1 Blood Venous blood specimen / Unknown 03/20/2025 1:58 PM EST 03/20/2025 Narrative [facility] - 03/20/2025 4:15 PM EST Performed at: [address] [place] [address] [id number] Transportation Project Manager: [facility], Phone: [phone] Charlie Barry MD LAB BLOOD ORDERABLES Final Res ult Performing Organization Address [facility] Co de Phone Number [facility] [address] [place] [address], [facility] 1 * Phosphorus (03/20/2025 1:58 PM EST) Phosphorus 2.7 2.4 - 4.9 mg/dL [facility] 1 Blood Venous blood specimen / Unknown 03/20/2025 1:58 PM EST 03/20/2025 Narrative [facility] - 03/20/2025 4:15 PM EST Performed at: [address] [place] [address] [id number] Transportation Project Manager: [facility], Phone: [phone] Charlie Barry MD LAB BLOOD ORDERABLES Final Res ult Performing Organization Address City/[facility] Co de Phone Number [facility] [address] [place] [address], [facility] 1 * Magnesium (03/20/2025 1:58 PM EST) Magnesium 1.8 1.6 - 2.6 mg/dL [facility] 1 Blood Venous blood specimen / Unknown 03/20/2025 1:58 PM EST 03/20/2025 Narrative [facility] - 03/20/2025 4:15 PM EST Performed at: [address] [place] [address] [id number] Transportation Project Manager: [facility], Phone: [phone] us Charlie Barry MD LAB BLOOD ORDERABLES Final Res ult [facility] [address] [place] [address], [facility] 1 * Comprehensive metabolic panel (03/20/2025 1:58 PM EST) Glucose 138 70 - 139 mg/dL [facility] 1 Comment:Fasting? Unknown BUN 15 6 - 24 mg/dL [facility] 1 Creat 1.02 0.55 - 1.30 mg/dL [facility] 1 eGFR 80 >=60 mL/min/1.7 3 [facility] 1 Comment:Calculated using CKD -EPI 2020 creatinine equation. Sodium 143 135 - 146 mmol/L [facility] 1 Potassium 4.8 3.6 - 5.2 mmol/L [facility] 1 Chloride 106 98 - 110 mmol/L [facility] 1 Anion Gap 9 3 - 14 mmol/L [facility] 1 Carbon Dioxide 28 20 - 32 mmol/L [facility] 1 Calcium 9.8 8.5 - 10.5 mg/dL [facility] 1 Protein Total 7.3 6.0 - 8.4 g/dL [facility] 1 Albumin 4.7 3.2 - 5.0 g/dL [facility] 1 Bili Total 0.4 0.2 - 1.2 mg/dL [facility] 1 Alk Phosphatase 58 30 - 130 IU/L [facility] 1 AST 20 6 - 42 IU/L [facility] 1 ALT 11 0 - 55 IU/L [facility] 1 Blood Venous blood specimen / Unknown 03/20/2025 1:58 PM EST 03/20/2025 Narrative [facility] - 03/20/2025 4:15 PM EST Performed at: - [place] [address], [place], [place] [id number] Transportation Project Manager: [facility], Phone: [phone] us Charlie Barry MD LAB BLOOD ORDERABLES Final Res ult [facility] [address] [place] [address], [facility] 1 * (ABNORMAL) CBC and differential (03/20/2025 1:58 PM EST) WBC 4.7 4.0 - 11.0 x10E3/uL [facility] 1 RBC 4.35 4.20 - 5.90 x10E6/uL [facility] 1 Hgb 11.9(L) 13.0 - 17.5 g/dL [facility] 1 Hct 37.9 37.0 - 53.0 % [facility] 1 MCV 87.1 80.0 - 100.0 fL [facility] 1 MCH 27.4 26.0 - 34.0 pg [facility] 1 MCHC 31.4 31.0 - 37.0 g/dL [facility] 1 RDW 12.2 11.5 - 14.5 % [facility] 1 Comment:RDW-SD 39.1 fL 35.0- 51.0 Platelets 161 150 - 400 x10E3/uL [facility] 1 Comment:MPV 10.2 fL 9.1-12.4 Neutrophils 70.3 % [facility] 1 Lymphs 10.2 % [facility] 1 Monocytes 9.3 % [facility] 1 Eos 0.2 % [facility] 1 Basos 0.4 % [facility] 1 Neutrophils Abs 3.31 1.50 - 7.95 x10E3/uL [facility] 1 Lymphs Abs 0.48(L) 0.70 - 4.00 x10E3/uL [facility] 1 MonocytesAbs 0.44 0.38 - 0.83 x10E3/uL [facility] 1 Eos Abs 0.01 0.00 - 0.50 x10E3/uL [facility] 1 Baso Abs 0.02 0.00 - 0.22 x10E3/uL [facility] 1 Immature Granulocytes 9.6 % [facility] 1 Immature Grans Abs 0.45(H) 0.00 - 0.10 x10E3/uL [facility] 1 NRBC 0.0 0.0 - 0.0 % [facility] 1 Comment:NRBC Absolute 0.00 K /uL 0.00-2.00 Blood Venous blood specimen / Unknown 03/20/2025 1:58 PM EST 03/20/2025 Narrative [facility] - 03/20/2025 4:15 PM EST Performed at: - [place] [address] [address], [place], [place] [id number] Transportation Project Manager: [facility], Phone: [phone] us Charlie Barry MD LAB BLOOD ORDERABLES Final Res ult Performing Organization Address City/State/[facility] Phone Number [facility] [address] [facility] 1 documented in this encounter Visit Diagnoses Diagnosis Heart transplant recipient Mixed hyperlipidemia documented in this encounter Additional Health Concerns Active Problems Noted Date Diagnosed Date Autogenerated Problem 03/01/2025 documented as of this encounter Care Teams Bean Snipper Relationship Specialty Start Date End Date Name, MD Yoandy [address] [place] [address] PCP - General Rn Oncology Clinical 11/12/23 Glenn Herman MD [address] [place] [address] Referring Physician Cardiology 11/12/23 Edward Handley CPhT [facility] 12/31/23 Jennie Michelle, RadhaD [address] [place] [id number] Pharmacist Pharmacy 01/27/24 Juan Hutchinson MD [address] [place] [address] [place] [address] Attending Physician Cardiology 12/19/24 Charlie Barry MD [address] [place] [address] Consulting Physician Advanced Heart Failure and Transplant Cardiology 03/20/25 documented as of this encounter
--- OUTSIDE RECORDS SUMMARY | 2025-03-22 13:12 | XMS_ITS | Encounter Summary ---
Author Organization [facility] Address [address] [facility] [address] [place] [address] Care Team Providers Care Ceo Na Name Role Phone Glenn Herman MD Unavailable [phone] Yoandy Tillman MD Primary Care Provider [phone] Edward Handley [facility] Unavailable Unavailable Jennie Michelle PharmD Unavailable [phone] Juan Hutchinson MD Unavailable [phone] Charlie Barry MD Unavailable [phone] Encounter Details Date Type Department Care Team (Latest Contact Info) Description 03/20/2025 Travel Social History Tobacco Use Types Packs/Day [...] of Assessment Author Yes 11/26/2023 11:17 AM TYT Bethany Washington RN [...] Description 05/15/2025 1:00 PM EST Office Visit [facility] Dermatology [address] [place] [address] Nelida Ayala MD [address] [place] [address] 07/06/2025 1:00 PM EDT Office Visit [facility] Lung Nodule [address] [facility] [address] [place] [address] Alfred Mckeon MD [address] [place] [address] 07/06/2025 1:30 PM EDT Office Visit [facility] Lung Nodule [address] [phone] Yoav Portillo Lung Nod Pul 07/12/2025 10:30 AM EDT Appointment [facility] Pulmonary Function Lab 800 [facility] Proger [facility] 5th Floor Room [address] [place] [address] 07/12/2025 11:30 AM EDT Office Visit [facility] Pulmonary [address] [facility] [facility] [address] [place] [address] Daysi Fink MD [address] [facility] [address] [place] [address] documented as of this encounter Goals Goal Patient Goal Type Associated Problems Recent Progress Patient-Stated? Author Autogenerat ed Goal Care Plan Autogenerated Problem No Cindy Aj documented as of this encounter Visit Diagnoses Not on filedocumented in this encounter Additional Health Concerns Active Problems Noted Date Diagnosed Date Autogenerated Problem 03/01/2025 documented as of this encounter Care Teams Ceo Na Relationship Specialty Start Date End Date Name, MD Yoandy [address] [place] [address] PCP - General Sales Agent Protective Service 11/12/23 Glenn Herman MD [address] [place] [address] Referring Physician Cardiology 11/12/23 Edward Handley, [facility] Reactor Service Operator Pharmacy 12/31/23 Jennie Michelle, PharmD [address] [place] [address] Pharmacist Pharmacy 01/27/24 Juan Hutchinson MD [address] [address] Attending Physician Cardiology 12/19/24 Charlie Barry MD [address] [place] [address] Consulting Physician Advanced Heart Failure and Transplant Cardiology 03/20/25 documented as of this encounter
--- OUTSIDE RECORDS SUMMARY | 2025-03-22 13:12 | XMS_ITS | Clinical Summary ---
Author Organization [facility] Address [address] [place] [address] Care Team Providers Care Germ Drier Name Role Phone Glenn Herman MD Unavailable [phone] Yoandy Tillman MD Primary Care Provider [phone] Edward Handley [facility] Unavailable Unavailable Jennie Michelle PharmD Unavailable [phone] Juan Hutchinson MD Unavailable [phone] Charlie Barry MD Unavailable [phone] Allergies Active Allergy Reactions Criticality Noted Date [...] insulin administration as directed 300 each 1 04/04/ 024 4:11 PM EST 2023 Active amoxicillin [...] Active Additional Information Patient taking differently: Inject 4 Units under the skin before breakfast AND 4 Units before lunch AND 4 Units before evening meal., Reported on 03/20/2025 insulin glargine (Lantus Solostar U-100 Insulin) 100 unit/mL (3 mL) injection Inject 30 units under the skin every evening. 15 mL 7 025 2:53 PM EST 2024 Active Additional Information Patient taking differently: 16 UnitssubcutaneousEvery morning, Takes 16 units every am, Reason: taking 22 units every am, Reported on 03/20/2025 insulin lispro (HumaLOG KwikPen Insulin) 100 unit/mL injection Inject 6 units under the skin with breakfast, 12 units with lunch and 12 units with dinner. max 30 units/24 hours 30 mL 3 3:21 PM EDT 2024 Active pen needle, diabetic (BD Ultra-Fine Mini [...] and replace cap. 16 g 3 025 3:21 PM EDT 2024 Active Additional Information Patient taking differently:1 spray Each Nostril Daily, Shake gently. Before first use, prime pump. After use, clean tip and replace cap.As needed, Reported on 03/20/2025 tacrolimus (Prograf) 5 mg capsuleIndicati ons:Heart transplant recipient Take 1 capsule (5 mg) by mouth twice daily. 60 capsule 11 2:53 PM EST 10/17 Active tacrolimus (Prograf) 1 mg capsuleIndicati ons:Heart transplant recipient Take 1 capsule (1 mg) by mouth twice daily. 60 capsule 11 025 2:53 PM EST 11/07 Active cholecalciferol , vitamin [...] mouth once daily. 30 tablet 5 025 2:53 PM EST 06/11 Active pantoprazole (ProtoNix) 40 mg EC tabletIndicatio ns:Heart transplant recipient Take 1 tablet (40 mg) by mouth before breakfast. Do not crush, chew, or split. 30 tablet 11 025 2:53 PM EST 12/13 Active mycophenolate (Cellcept) 250 mg capsuleIndicati ons:Heart transplant recipient Take 1 capsule (250 mg) by mouth twice daily. 60 capsule 11 025 2:53 PM EST 12/19 Active mycophenolate (Cellcept) 500 mg tabletIndicatio ns:Heart transplant recipient Take 1 tablet (500 mg) by mouth twice daily. Take in addition to 250mg cap, total dose 750mg twice daily. 60 tablet 11 025 2:53 PM EST 12/19 Active bisacodyl (Dulcolax) 5 [...] 2 weeks per month. 80 g 2 025 2:53 PM EST 2024 Active ketoconazole (NIZOral) 2 % creamIndication s:Tinea cruris Apply topically twice daily to affected areas, stop when clear. 60 g 11 2:53 PM EST 2024 Active fluocinolone and shower cap 0.01 % oilIndications: Irritant contact dermatitis due to other agents Apply twice daily topically to scalp for up to 2 weeks per month. Stop when clear. 118.28 mL 2 2:10 PM EST 2024 Active famotidine (Pepcid) 20 mg tabletIndicatio ns:Heart transplant recipient Take 1 tablet (20 mg) by mouth before evening meal. 30 tablet 11 2:53 PM EST 02/08 Active pravastatin (Pravachol) 80 mg tabletIndicatio ns:Heart transplant recipient,Mixed hyperlipidemia Take 1 tablet (80 mg) by mouth once daily. 90 tablet 3 03/06 Active levETIRAcetam (Keppra) 750 mg tabletIndicatio ns:Heart transplant recipient Take 1 tablet (750 mg) by mouth twice daily. 60 tablet 11 2:53 PM EST 06/07 Active sulfamethoxazol e-trimethoprim (Bactrim DS) 800-160 mg tabletIndicatio ns:Heart transplant recipient Take 1 tablet by mouth once daily. 30 tablet 4:35 PM EDT 03/20 Discontinued( Therapy completed) levETIRAcetam (Keppra) 750 mg tabletIndicatio ns:Heart transplant recipient Take 1 tablet (750 mg) by mouth twice daily. 60 tablet 2 5:29 PM EST 03/08 Discontinued( Reorder) pravastatin (Pravachol) 80 mg tabletIndicatio ns:Heart transplant recipient Take 1 tablet (80 mg) by mouth once daily. 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 5 tablet 03/15 Additional Information Patient not taking.Reason: took for inflammation/cough s/p bronchoscopy, Reported on 03/20/2025 Active Problems Problem Noted Date Diagnosed Date [...] 's report Asked patient to call his Legal Advisor regarding his increased weight/swelling for further recommendations. Last Assessment & Plan: reports he's up a few pounds from his baseline weight, worsening leg swelling over the last few days. Compliant with Torsemide - taking full dose per 's report Asked patient to call his Legal Advisor regarding his increased weight/swelling for further recommendations. 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 03/10/2025 Telephone [facility] Pulmonary [address] [phone] Daysi Fink MD RX request 03/08/2025 Refill [facility] Cardiology 800 [facility] [address] [place] [phone] Dena Mitchell NP Heart transplant recipient 03/06/2025 Refill [facility] Cardiac Subspecialty [address] [phone] Dena Mitchell NP Heart transplant recipient; Mixed hyperlipidemia 02/28/2025 9:45 AM EST Anesthesia Event [facility] Main OR 800 [place] [address] Vonda Forte MD Pirozzi, Joseph, DMD 02/28/2025 8:50 AM EST - 02/28/2025 10:20 AM EST Surgery [facility] OR [address] [place] [phone] Loren Hall MD Bronchoscopy with dilation [81813 (CPT )] 02/28/2025 6:48 AM EST - 02/28/2025 12:56 PM EST Hospital Encounter [facility] OR [address] [place] [phone] Loren Hall MD Cytomegalovirus infection, unspecified cytomegaloviral infection type Discharge Disposition: Home or self care 02/28/2025 Travel 02/22/2025 2:00 PM EST Office Visit [facility] Neurology 260 [place] [phone] Percy Kapoor MD Focal epilepsy (Primary Dx) 02/22/2025 Travel 02/21/2025 2:00 PM EST Pre-Admission Testing [facility] Preadmit Testing [address] [place] [address] 02/09/2025 Telephone [facility] Infectious Disease [address] [phone] Lena Cortes NP 02/08/2025 Refill [facility] Infectious Disease [address] [address] Lena Cortes NP Cytomegalovirus (CMV) viremia 02/08/2025 Refill [facility] Cardiac Subspecialty [address] [phone] Dena Mitchell NP Heart transplant recipient 02/06/2025 1:00 PM EST Office Visit [facility] Dermatology 260 [place] [address] Nelida Ayala MD Eczema craquele (Primary Dx); Tinea cruris; Onychomycosis; Irritant contact dermatitis due to other agents; Sharp angioma; Immunosuppression 02/06/2025 Travel 02/02/2025 2:00 PM EDT Office Visit [facility] Lung Nodule 800 [facility] [address] [place] [address] Loren Hall MD Tracheal stenosis following tracheostomy (Primary Dx); Heart transplant recipient; Immunosuppressed status 02/02/2025 1:30 PM EDT Office Visit [facility] Lung Nodule [address] [phone] Alfred Mckeon MD Tracheal stenosis (Primary Dx) 02/02/2025 Travel 01/24/2025 Telephone [facility] Infectious Disease [address] [phone] Lena Cortes NP 01/18/2025 Telephone [facility] Infectious Disease [address] [address] Lena Cortes NP 01/10/2025 Refill [facility] Cardiology 800 [facility] [address] [place] [address] Pedro Kline MD Heart transplant recipient 01/03/2025 10:30 AM EDT - 01/03/2025 12:30 PM EDT Surgery [facility] Cardiac Head [place] [address] [place] [address] Luisa Yang MD Coronary angiography [73471 (CPT )] 01/03/2025 10:17 AM EDT - 01/03/2025 4:56 PM EDT Hospital Encounter [facility] Cardiac Head [place] [address] [place] [address] Luisa Yang MD Other cytomegaloviral diseases (Multi-HCC) (Primary Dx); Heart transplant recipient (Multi-HCC) Discharge Disposition: Home or self care 01/03/2025 Travel 01/02/2025 Orders Only [facility] Infectious Disease [address] [phone] Lena Cortes STARCH MANGLE TENDER 12/28/2024 11:30 AM EDT Office Visit [facility] Pulmonary [address] [phone] Daysi Fink MD Chronic cough (Primary Dx); Pulmonary sarcoidosis (Multi-HCC); 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); Cardiac sarcoidosis (HHS-HCC); Dyspnea and respiratory abnormality 12/28/2024 10:16 AM EDT - 12/28/2024 11:59 PM EDT Hospital Encounter [facility] Imaging [address] [place] [address] Cytomegalovirus infection, unspecified cytomegaloviral infection type (Multi-HCC); Tracheal stenosis; Pulmonary sarcoidosis (Multi-HCC) Discharge Disposition: Home or self care 12/28/2024 Travel 12/26/2024 Orders Only [facility] Infectious Disease [address] [phone] Lena Cortes, STARCH MANGLE TENDER Cytomegalovirus (CMV) viremia (Multi-HCC) from Last 3 Months Immunizations Immunization [...] Vaccine Formula 12+ (Deferred: Not available from historiographer - Per pharmacy vaccine is out of stock. MD Martins notified) Tdap 05/30/2021 Zoster, Recombinant 11/26/2023 Family History Medical History Relation Name Comments Diabetes Brother Emmanuel Avila Avila Cancer Father Dar Avila Alfaro Diabetes Father Dar Avila Alfaro Hypertension Father Dar Avila Alfaro Cancer Mother Lillie Nicolearez Diabetes Mother Lillie Langfords Bender Diabetes Sister Mar a Stephanie Avila Avila Relation Name Status Comments Brother Emmanuel Langfords Avila Alive Father Dar Avila Alfaro Alive Mother Lillie Langfords Bender Alive Sister Mar a Stephanie Avila [...] F) 03/20/2025 12:36 PM EST Respiratory Rate 26 02/28/2025 12:15 PM EST Oxygen Saturation 99% 03/20/2025 12:36 PM EST Inhaled Oxygen Concentration - - Weight 61.7 kg (136 lb) 03/20/2025 12:36 PM EST Height 172.7 cm (5' 7.99 ) 03/20/2025 12:[address] Body Mass Index 20.68 03/20/2025 12:36 PM EST Plan of Treatment Upcoming Encounters Date Type Department Care Team (Late st Contact Info) Description 05/15/2025 1:00 PM EST Office Visit [facility] Dermatology 260 [place] [address] Nelida Ayala MD 800 [place] [address] 07/06/2025 1:00 PM EDT Office Visit [facility] Lung Nodule 800 [facility] [address] [place] [phone] Alfred Mckeon MD [address] [place] [address] 07/06/2025 1:30 PM EDT Office Visit [facility] Lung Nodule 800 [facility] [address] [place] [address] Yoav Portillo Lung Nod Pul 07/12/2025 10:30 AM EDT Appointment [facility] Pulmonary Function Lab 800 [facility] [address] [place] [phone] 07/12/2025 11:30 AM EDT Office Visit [facility] Pulmonary 260 [facility] [address] [place] [address] Daysi Fink MD 800 [facility] [address] [place] [address] Health Maintenance Due Date Last Done Comments [...] 12/19/2025 025, 07/27/2024, 05/26/2024, Additional history exists FIT-DNA 01/21/2026 01/21/2023, 01/04, 01/21/2023 High Risk LDL 03/20/2026 03/20/2025, 12/05, 11/07/2024, Additional history exists Lipid Panel 03/20/2026 03/20/2025, 12/05, 11/07/2024, Additional history exists DTaP/Tdap/Td Vaccines (2 - Td or Tdap) [...] ed Goal Care Plan Autogenerated Problem No [employer] Implanted Type Area Software Team Leader Device Identifier Shelf Expiration Date Model / Serial / Lot Electrical Design Technologist-D [employer] Icd-10/02/2022 Implanted:09/05 (Quantity not on file) [employer]-D ICD Chest [employer] Graft Hemashield Str 10x30 - [id number] Implanted:Qty: 1 on 12/22/2023 at [facility] Graft Right: Axilla GETINGE/MAQUET CARDIOVASCULAR 09/03/2028 [id number] / [id number] / Impella- 024 Implanted:12/05 (Quantity not on file) Impella Heart Procedures Procedure Name Priority Date/Time Associated Diagnosis Comments RBC MORPHOLOGY Routine 03/20/2025 1:58 PM EST CMV DNA, QUANTITATIVE, RT-PCR STAT 03/20/2025 1:58 PM EST Heart transplant recipient CYSTATIN C WITH EGFR STAT 03/20/2025 1:58 PM EST Heart transplant recipient TACROLIMUS LEVEL STAT 03/20/2025 1:58 PM EST Heart transplant recipient HEPATIC FUNCTION PANEL STAT 1:58 PM EST Heart transplant recipient URIC ACID STAT 03/20/2025 1:58 PM EST Heart transplant recipient LIPID PANEL STAT 03/20/2025 1:58 PM EST Heart transplant recipient Mixed hyperlipidemia CK STAT 03/20/2025 1:58 PM EST Heart transplant recipient LDH STAT 03/20/2025 1:58 PM EST Heart transplant recipient PHOSPHORUS STAT 03/20/2025 1:58 PM EST Heart transplant recipient MAGNESIUM STAT 03/20/2025 1:58 PM EST Heart transplant recipient COMPREHENSIVE METABOLIC PANEL STAT 03/20/2025 1:58 PM EST Heart transplant recipient CBC W/DIFF STAT 03/20/2025 1:58 PM EST Heart transplant recipient POCT GLUCOSE Routine 02/28/2025 11:[address] AN ELECTIVE SUPRAGLOTTIC AIRWAY Routine 02/28/2025 10:[address] BRONCHOSCOPY,DIAGNOSTI C 02/28/2025 9:35 AM EST Tracheal stenosis POCT [...] AM EDT Tracheal stenosis Pulmonary sarcoidosis (Multi-HCC) HEMOGLOBIN A1C STAT 12/19/2024 12:15 PM EDT Heart transplant recipient (Multi-HCC) Type 2 diabetes mellitus with other specified complication, unspecified whether watermelon harvesting supervisor insulin use (Multi-HCC) HCV RNA, QUANTITATIVE, PCR (MONITORING) Routine 01/26/2024 10:30 AM EDT ALBUMIN, URINE, RANDOM (INCLUDING CREATININE) Routine 11/26/2023 1:50 PM EDT from Last 3 Months or Most Recently Relevant to Health Maintenance Results * Cystatin C with eGFR (03/20/2025 1:58 PM EST) Pathologist [facility] Cystatin C 1.08 0.72 - 1.16 mg/L [facility] 1 eGFRcys 68 >59 mL/min/1.73 [facility] 1 Blood Venous blood specimen / Unknown 03/20/2025 1:58 PM EST 03/20/2025 Narrative [facility] - 03/21/2025 6:45 AM EST Performed at: [address] [place] [id number] Education Program Specialist: Iram Zambrano MD, Phone: [phone] Charlie Barry MD LAB BLOOD ORDERABLES Final Res ult Performing Organization Address [facility]/ZIP Co de Phone Number [facility] [address] [place] [address], [facility] 1 * RBC Morphology (03/20/2025 1:58 PM EST) Pathologist [facility] Slide Review [facility] 1 Comment: RBC Morphology See Indices A REFERENCE RANGE: Normal, Not Performed Toxic Granulation Present (none) A 03/20/2025 1:58 PM EST 03/20/2025 Narrative [facility] - 03/20/2025 4:15 PM EST Performed at: [address] [place] [id number] Education Program Specialist: Jim Henning [facility], Phone: [phone] Charlie Barry MD LAB BLOOD ORDERABLES Final Res ult Performing Organization Address City/[facility]/ZIP Co de Phone Number [facility] [address] [place] [address], [facility] 1 * Tacrolimus level (03/20/2025 1:58 PM EST) Only the most recent of2 resultswithin the time period is included. Pathologist [facility] Tacrolimus, LC-MS/MS 5.9 3.0 - 20.0 ng/mL [facility] 1 Comment: Performed by LC-MS/MS. Reference intervals are based on trough collection. Optimal therapeutic ranges depend on time post-transplant, dosing regimen, organ type, and concomitant immunosuppression therapy. Results should be interpreted in conjunction with physical signs/symptoms of rejection/toxicity. This test was developed and its performance characteristics determined by [facility]. It has not been cleared or [...] [facility] - 03/21/2025 12:15 PM EST Test(s) [id number] ([id number]), Blood was developed and its performance characteristics determined by [facility]. It has not been cleared or approved by the Food and Drug Administration. Performed at: 01 - [address] [id number] Education Program Specialist: Jim Henning [facility], Phone: [phone] Charlie Barry MD LAB BLOOD ORDERABLES Final Res ult [facility] [address] [place] [address], [facility] 1 * (ABNORMAL) CMV Quant DNA, RT-PCR, BLOOD (03/20/2025 1:58 PM EST) Only the most recent of2 resultswithin the time period is included. Pathologist [facility] CMV Qn DNA PCR <30(H) Not Detected IU/mL [facility] 1 Comment: DETECTED The presence of CMV DNA is detected using the [employer] Healariumnity m CMV DNA assay but the concentration is below the level that can be accurately quantified. CMV DNA Viral Load, Interp Detected A REFERENCE RANGE: Not Detected log10 CMV Qn DNA <1.48(H) Not Detected log IU/mL [facility] 1 Comment: This test was performed using the [employer] Alinity m CMV DNA assay, performed on the WestcreteniHashCube m instrument Blood Venous blood specimen / Unknown 03/20/2025 1:58 PM EST 03/20/2025 Narrative [facility] - 03/21/2025 1:15 PM EST Performed at: [address] [place] [id number] Education Program Specialist: Jim Henning [facility], Phone: [phone] us Charlie Barry MD LAB BLOOD ORDERABLES Final Res ult [facility] [address] [place] [address], [facility] 1 * (ABNORMAL) CBC and differential (03/20/2025 1:58 PM EST) Pathologist [facility] WBC 4.7 4.0 - 11.0 x10E3/uL [facility] [...] - 03/20/2025 4:15 PM EST Performed at: [address] [place] [id number] Education Program Specialist: Jim Henning [facility], Phone: [phone] Charlie Barry MD LAB BLOOD ORDERABLES Final Res ult Performing Organization Address City/State/[facility] Co de Phone Number [facility] [address] [place] [address], [facility] 1 * Uric Acid (03/20/2025 1:58 PM EST) [facility] Uric Acid 4.9 2.6 - 8.0 mg/dL [facility] 1 Comment: Although the reference interval for men extends up to 8.0 mg/dL, patients with gout may benefit from uric acid levels <6.0 mg/dL. Blood Venous blood specimen / Unknown 03/20/2025 1:58 PM EST 03/20/2025 Narrative [facility] - 03/20/2025 4:15 PM EST Performed at: [address] [place] [id number] Education Program Specialist: Jim Henning [facility], Phone: [phone] us Charlie Barry MD LAB BLOOD ORDERABLES Final Res ult Performing Organization Address City/[facility]/ZIP Co de Phone Number [facility] [address] [place] [address], [facility] 1 * Phosphorus (03/20/2025 1:58 PM EST) Phosphorus 2.7 2.4 - 4.9 mg/dL [facility] 1 Blood Venous blood specimen / Unknown 03/20/2025 1:58 PM EST 03/20/2025 Narrative [facility] - 03/20/2025 4:15 PM EST Performed at: [address] [place] [address] Education Program Specialist: Jim Heninng [facility], Phone: [phone] Charlie Barry MD LAB BLOOD ORDERABLES Final Res ult Performing Organization Address [facility] Co de Phone Number [facility] [address] [place] [address], [facility] 1 * Magnesium (03/20/2025 1:58 PM EST) Only the most recent of2 resultswithin the time period is included. Magnesium 1.8 1.6 - 2.6 mg/dL [facility] 1 Blood Venous blood specimen / Unknown 03/20/2025 1:58 PM EST 03/20/2025 Narrative [facility] - 03/20/2025 4:15 PM EST Performed at: [address] [place] [id number] Education Program Specialist: Jim Henning [facility], Phone: [phone] us Charlie Barry MD LAB BLOOD ORDERABLES Final Res ult Performing Organization Address City/[facility] Co de Phone Number [facility] [address] [place] [address], [facility] 1 * (ABNORMAL) Lactate dehydrogenase (03/20/2025 1:58 PM EST) LDH 263(H) 110 - 250 IU/L [facility] 1 Blood Venous blood specimen / Unknown 03/20/2025 1:58 PM EST 03/20/2025 Narrative [facility] - 03/20/2025 4:15 PM EST Performed at: [address] [place] [address] [address] [facility] [address] [place], [place] [id number] Education Program Specialist: Jim Henning [facility], Phone: [phone] Charlie Barry MD LAB BLOOD ORDERABLES Final Res ult Performing Organization Address [facility] de Phone Number [facility] [address] [place] [address], [facility] 1 * (ABNORMAL) CK (aka CPK) (03/20/2025 1:58 PM EST) CK Total 27(L) 41 - 331 U/L [facility] 1 Blood Venous blood specimen / Unknown 03/20/2025 1:58 PM EST 03/20/2025 Narrative [facility] - 03/21/2025 7:45 AM EST Performed at: [facility] [id number] Education Program Specialist: Iram Zambrano MD, Phone: [phone] Charlie Barry MD LAB BLOOD ORDERABLES Final Res ult Performing Organization Address [facility] Phone Number [facility] [address] [place] [address], [facility] 1 * Hepatic function panel (03/20/2025 1:58 PM EST) Bilirubin, Direct 0.1 0.0 - 0.5 mg/dL [facility] 1 Blood Venous blood specimen / Unknown 03/20/2025 1:58 PM EST 03/20/2025 Narrative [facility] - 03/20/2025 4:15 PM EST Performed at: [address] [place] [address] [address] [facility] [address] [place], [place] [id number] Education Program Specialist: Jim Henning [facility], Phone: [phone] Charlie Barry MD LAB BLOOD ORDERABLES Final Res ult Performing Organization Address City/[facility] Co de Phone Number [facility] [address] [place] [address], [facility] 1 * Lipid panel (03/20/2025 1:58 [...] 03/21/2025 6:15 AM EST Performed at: - [facility] [id number] Education Program Specialist: Iram Zambrano MD, Phone: [phone] Charlie Barry MD LAB BLOOD ORDERABLES Final Res ult Performing Organization Address [facility] Co de Phone Number [facility] [address] [place] [address], [facility] 1 * Comprehensive metabolic panel (03/20/2025 1:58 PM EST) Only the most recent of2 resultswithin the time period is included. Glucose 138 70 - 139 mg/dL [facility] [...] - 03/20/2025 4:15 PM EST Performed at: 01 - [address] [id number] Education Program Specialist: Jim Henning [facility], Phone: [phone] us Charlie Barry MD LAB BLOOD ORDERABLES Final Res ult Performing Organization Address City/[facility]/ZIP Co de Phone Number [facility] [address] [facility] 1 * POCT glucose meter (02/28/2025 11:45 AM EST) Only the most recent of2 resultswithin the time period is included. [facility] POCT Glucose 134 70 - 139 mg/dL 02/28/2025 11:46 AM EST [facility] LAB Blood Blood specimen / Unknown 02/28/2025 11:45 AM EST 02/28/2025 11:46 AM EST us Loren Hall MD LAB POINT OF CARE TE ST DOCKED DEVICE UNSOLICITED RESULTS Final Result Performing Organization Address City/[facility]/ZIP Co de Phone Number [facility] [address] [place] [phone], * CT AN ELECTIVE SUPRAGLOTTIC AIRWAY (02/28/2025 10:00 AM EST) Narrative Wesly Barry MD - 02/28/2025 10:00 AM EST Wesly Barry MD 02/28/2025 10:09 AM Airway Date/Time: 02/28/2025 10:00 AM Location: OR Urgency: Elective Difficult Airway: No Induction Technique: Intravenous RSI: No Cricoid pressure: No ETT In Situ?: No Anesthesiologist: Vonda Forte MD Resident/EGG CRATER: Wesly Barry MD Performed by: Resident/EGG CRATER Vonda Forte MD Indications for Airway Management: Anesthesia Preoxygenated: Yes Patient Position: Sniffing Mask Ventilation: Easy mask Final Airway Type: LMA LMA Size: 4 Vonda Forte MD Number of Attempts at Approach: 1 Vonda Forte MD ANESTHESIA ORDERABLES Maral l Result * CORONARY ANGIOGRAPHY, ENDOMYOCARDIAL BIOPSY (01/03/2025 12:45 PM EDT) 01/03/2025 12:1 1 PM EDT Narrative [facility] [place] HEMO MERGE HEMO - 01/03/2025 5:21 PM EDT [facility] Adult Catheterization Lab [address] [place] [address] Right and Left Diagnostic Cardiac Catheterization and Biopsy Report Patient: Margarita Avila, Referring Dena Mitchell Physician: Dena Mitchell Attending Luisa Richter Physician: : 1955 Primary [...] Procedure Note Luisa Yang MD - 01/03/2025 [facility] Adult Catheterization Lab [address] [place] [address] Right and Left Diagnostic Cardiac Catheterization and Biopsy Report Patient: Margarita Avila, Referring Dena Mitchell Physician: Dena Mitchell Attending Luisa Richter Physician: : 1955 Primary Care Physician: Procedure 01/03/2025 Fellow: Selene Carrillo, Date: [place] Room: INDICATIONS: Status post heart transplant. PRESENTATION: [...] signed by Luisa Richter 01/03/2025 17:21 us Dena Mitchell NP CV CARDIAC CATH PROCEDURES Maral l Result [facility] HEMO MERGE HEMO * Tissue Pathology (01/03/2025 11:20 AM EDT) Case Report Surgical Pathology Case: [id number] Authorizing Provider: Dena Mitchell NP Collected: 01/03/2025 1120 Ordering Location: [facility] Received: 01/03/2025 1320 Cardiac Head [place] Pathologist: Ramos Kay MD Specimen: Heart, R ventricle Bx post Tx 01/04/2025 4:36 PM EDT [facility] Final Diagnosis [...] stain shows subendocardial fibrosis. Cardiac transplant team (Dena Mitchell) notified via tiger text at 11:15AM Controls show appropriate reactivity. 01/04/2025 4:36 PM EDT [facility] at 1636 [...] toto in A1. Grossed by DANY Wong PA([facility])RICARDO on 01/03/25 at 1:26 PM. 01/04/2025 4:36 PM EDT [facility] Disclaimer The [...] show appropriate reactivity. 01/04/2025 4:36 PM EDT [facility] Tissue Heart structure / Unknown 01/03/2025 11:20 AM EDT 01/03/2025 1:20 PM EDT Dena Mitchell NP LAB PATHOLOGY ORDERABLES Final Result [facility] [address] [place] [address], * (ABNORMAL) CBC w/ Differential (01/03/2025 11:10 AM EDT) WBC 2.7(L) 4.0 - 11.0 K/uL 01/03/2025 11:41 AM EDT [facility] RBC 3.82(L) 4.20 - 5.90 M/uL 01/03/2025 11:41 AM EDT [facility] Hemoglobin 11.3(L) 13.0 - 17.5 g/dL 01/03/2025 11:41 AM EDT [facility] Hematocrit 33.5(L) 37.0 - 53.0 % 01/03/2025 11:41 AM EDT [facility] MCV 87.7 80.0 - 100.0 fL 01/03/2025 11:41 AM EDT [facility] MCH 29.6 26.0 - 34.0 pg 01/03/2025 11:41 AM EDT [facility] MCHC 33.7 31.0 - 37.0 g/dL 01/03/2025 11:41 AM EDT [facility] RDW-CV 12.8 11.5 - 14.5 % 01/03/2025 11:41 AM EDT [facility] RDW-SD 40.4 35.0 - 51.0 fL [facility]/03[facility] Platelets 122(L) 150 - 400 K/uL 01/03/2025 11:41 AM EDT [facility] MPV 9.7 9.1 - 12.4 fL 01/03/2025 11:41 AM EDT [facility] Neutrophil % 65.5 % 01/03/2025 11:41 AM EDT [facility] Lymphocyte % 20.0 % 01/03/2025 11:41 AM EDT [facility] Monocytes % 5.6 % 01/03/2025 11:41 AM EDT [facility] Eosinophils % 5.2 % 01/03/2025 11:41 AM EDT [facility] Basophils % 0.4 % 01/03/2025 11:41 AM EDT [facility] Immature Granulocytes % 3.3 % 01/03/2025 11:41 AM EDT [facility] NRBC % 0.0 0.0 - 0.0 % 01/03/2025 11:41 AM EDT [facility] Neutrophils Absolute 1.77 1.50 - 7.95 K/uL 01/03/2025 11:41 AM EDT [facility] Lymphocytes Absolute 0.54(L) 0.70 - 4.00 K/uL 01/03/2025 11:41 AM EDT [facility] Monocytes Absolute 0.15(L) 0.38 - 0.83 K/uL 01/03/2025 11:41 AM EDT [facility] Eosinophils Absolute 0.14 0.00 - 0.50 K/uL 01/03/2025 11:41 AM EDT [facility] Basophils Absolute 0.01 0.00 - 0.22 K/uL 01/03/2025 11:41 AM EDT [facility] Immature Granulocytes Absolute 0.09 0.00 - 0.10 K/uL 01/03/2025 11:41 AM EDT [facility] NRBC Absolute 0.00 0.00 - 2.00 K/uL 01/03/2025 11:41 AM EDT [facility] Blood Venous blood specimen / Unknown Venipuncture / Unknown 01/03/2025 11:10 AM EDT 01/03/2025 11:34 AM EDT Zeina Maradiaga MD LAB BLOOD ORDERABLES Final Result Performing Organization Address City/State/[facility] Co de Phone Number [facility] [address] [place] [address], * Protime/INR (01/03/2025 11:10 AM EDT) Protime 12.0 9.7 - 14.0 seconds 01/03/2025 11:55 AM EDT [facility] INR 1.04 See Comment 01/03/2025 11:55 AM EDT [facility] Comment: NORMAL PATIENTS NOT ON ANTICOAGULANTS: INR: 0.9-1.3 RECOMMENDED INR WITH WARFARIN/COUMADIN THERAPY: INR: 2.00-3.00 Deep vein thrombosis Atrial Fibrillation Tissue Prosthetic Valve Stroke Prevention INR:2.50-3.50 Mechanical Prosthetic Valve and Recurrent Systemic Embolism Blood Venous blood specimen / Unknown Venipuncture / Unknown 01/03/2025 11:10 AM EDT 01/03/2025 11:34 AM EDT us Zeina Maradiaga MD LAB BLOOD ORDERABLES Final Result [facility] [address] [place] [address], [place] * CT HIGH RESOLUTION CHEST WO [...] GENDER: Male ORD PHYS: DAYSI FINK LOCATION: [facility] 12/28/2024 10:46 AM EDT [id number] (CT HIGH RESOLUTION CHEST WO CONTRAST) [id number] Provided History: Pulmonary sarcoidosis and tracheal stenosis [...] Galdamez MD - 12/29/2024 NAME: MATTHEW AVILA AVILA : 1955 AGE: 69 years GENDER: Male ORD PHYS: DAYSI FINK LOCATION: [facility] 12/28/2024 10:46 AM EDT [id number] (CT HIGH RESOLUTION CHEST WO CONTRAST) [id number] Provided History: Pulmonary sarcoidosis and tracheal stenosis [...] IMG CT PROCEDURES Final Re sult * (ABNORMAL) Hemoglobin A1c (12/19/2024 12:15 PM EDT) Pathologist [facility] HgbA1C 6.5(H) 4.8 - 5.6 % [facility] 1 Comment: Prediabetes: 5.7 - 6.4 Diabetes: >6.4 Glycemic control for adults with diabetes: <7.0 Blood Venous blood specimen / Unknown 12/19/2024 12:15 PM EDT 12/19/2024 Narrative [facility] - 12/20/2024 4:05 AM EDT Performed at: [address] [id number] Education Program Specialist: Iram Zambrano MD, Phone: [phone] Juan Hutchinson MD LAB BLOOD ORDERABLES Final Resu lt [facility] [address] [place] [address], [facility] 1 * Hepatitis C Virus RNA, Quantitative, RT-PCR (01/26/2024 10:30 AM EDT) [facility] HCV RNA by RT-PCR [facility] 01/27/2024 2:18 PM EDT [facility] Comment:Not Detected HCV RNA Viral Load, log [facility] 01/27/2024 2:18 PM EDT [facility] Comment:Not Detected HCV RNA Viral Load, Interp Not Detected Not Detected [facility] 01/27/2024 2:18 PM EDT [facility] Blood Venous blood specimen / Unknown Venipuncture / Unknown 01/26/2024 10:30 AM EDT 01/26/2024 11:13 AM EDT Narrative [facility] - 01/27/2024 2:18 PM EDT This test was performed using the [employer] Alinity m HCV assay, performed on the [employer] Alinity m instrument. The lower limit of quantification is 12 IU/mL. Chi Barton MD LAB BLOOD ORDERABLES Final Resu lt Performing Organization Address [facility] Co de Phone Number [facility] [address] * Albumin, Urine, Random (Microalbumin Random, Including Creatinine) (11/26/2023 1:50 PM EDT) Albumin, urine (INT/EXT) <1.2 mg/dL 11/26/2023 2:44 PM EDT [facility] Creatinine, urine, random (INT/EXT) 47.40 24.00 - 392.00 mg/dL 11/26/2023 2:44 PM EDT [facility] Albumin/Creatini ne ratio 11/26/2023 2:44 PM EDT [facility] Comment:Unable to calculate due to below or above Analytical Measurement Range. Urine Urine specimen / Unknown Non-blood Collection / Unknown 11/26/2023 1:50 PM EDT 11/26/2023 1:50 PM EDT Pedro Kline MD LAB URINE ORDERABLES Maral l Result Performing Organization Address [facility] de Phone Number [facility] [address] from Last 3 Months or Most Recently Relevant to Health Maintenance Additional Health Concerns Active Problems Noted Date Diagnosed Date Autogenerated Problem 03/01/2025 Insurance MEDICARE PART A AND B HEALTH SAFETY NET [facility] MEDICARE PART A AND B HEALTH SAFETY NET Advance Directives Documents on File Type Date Recorded Patient Inorganic Chemical Technician Expl anation Advance Directives and Living Will 11/25/2023 Lloyd Ahmadi Health Care Proxy * Full Code (Latest Code Status on File) Date Activated Date Inactivated Comments 11/24/2023 12:16 AM 01/20/2024 1:17 PM Healthcare Agents on File Name Relationship Healthcare Agent Relationship Communication Aleisha Ahmadi Spouse Health Care Agent [email or web address] Lloyd Mandel Son First Alte rnate Health Care Agent Care Teams Germ Drier Relationship Specialty Start Date End Date Name, MD Yoandy [address] [place] [address] PCP - General Geophysical Laboratory Chief 11/12/23 Glenn Herman MD [address] [place] [address] Referring Physician Cardiology 11/12/23 Edward Handley CPhT Head Of Science Pharmacy 12/31/23 Jennie Michelle, RadhaD [address] [place] [phone] Pharmacist Pharmacy 01/27/24 Juan Hutchinson MD [address] [facility] [address] [place] [phone] Attending Physician Cardiology 12/19/24 Charlie Barry MD [address] [place] [address] Consulting Physician Advanced Heart Failure and Transplant Cardiology 03/20/25
--- OUTSIDE RECORDS SUMMARY | 2025-03-22 13:12 | XMS_ITS | Clinical Summary ---
Author Organization [employer] Address [address] [facility] 7t [place] [address] Care Team Providers Care Assisted Living Manager Name Role Phone Name, Yoandy LUGO [...] bedtime. 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 4 [...] follow-up 10/06/2024 Pulmonary nodules 07/27/2024 Cytomegalovirus infection ([facility] 06/30/2024 Chronic cough 06/28/2024 Fever 06/28/2024 Conjunctivitis of right eye 05/04/2024 Immunosuppressed status 05/04/2024 Night sweats 05/04/2024 Preventative health care 05/04/2024 Disease due to severe acute respiratory syndrome coronavirus 2 (SARS-CoV-2) 04/19/2024 Overview (07/27/2024): Problem added by Discern Expert Sensorineural hearing loss (SNHL) of both ears 0 04/15/2024 Observed seizure-like activity ([facility]) 024 Heart transplant recipient ([facility]) 02/05/2024 Overview (02/05/2024): #s/p OHT 12/28/23 #s/p impella explant #s/p ICD explant #hx NICM Seizure disorder ([facility]) 02/05/2024 Immunocompromised 02/05/2024 Sarcoidosis 01/27/2024 Alteration in self-care ability 01/05/2024 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 S/p multiple dilations in the past. Able to pass a 7.0 ETT, but no larger. Decreased functional mobility and endurance 11/06 Non-restorable tooth 11/19/2023 History of IN (myocardial infarction) 10/20/2023 Memory problem 10/20/2023 Shortness [...] 's report Asked patient to call his Can Reconditioner regarding his increased weight/swelling for further recommendations. Dysphagia 02/08/2023 Positive colorectal cancer screening using Colog uard test 02/04/2023 Overview (11/03/2023): Negative Colonoscopy 06/2023: urgical Pathology Exam - Order: [id number] Component 4 mo ago Case Report Surgicals Case: [id number] Authorizing Provider: Donny Encarnacion Collected: 2023 0843 MD Eugene Ordering Location: [facility] Lab Received: 2023 1011 [...] IHC, [place] [address]. Resulting Agency [facility] Specimen Collected: 06/19/23 08:43 Performed by: [facility] Last Resulted: 06/23/23 17:27 [...] were answered. Coronary artery disease invo lving [place] coronary artery of [place] heart without angina pectoris 11/14/2022 Overview (11/02/2023): Last Assessment & Plan: - nonobstructive disease - continue medical therapy with aspirin, statin, BB - denies angina Stridor 11/13/2022 Overview (11/02/2023): Last Assessment & Plan: Improved after last dilation in April 2023. Mild stridor noted today in clinic Discussed with his primary residence hall director Dr. Sanches and will work to get [...] Ventricular tachycardia, unspecified (CMS/HCC) 0 04/06/2022 Other jail (current) drug therapy 3 Type 2 diabetes [...] upgraded from dual-chamber to biventricular device at [facility] 03/2022. Follows at [facility] cardi Systolic dysfunction 03/13/2022 History of bradycardia 03/13/2022 Family history of prostate cancer 03/13/2022 Complete heart block (CMS/HCC) 04/06/2020 Overview (11/02/2023): Added automatically from request for surgery [id number] Last Assessment & Plan: History of biventricular pacemaker that was upgraded to PRODUCT ANALYST defibrillator in September. Device interrogated today [...] Type Department Care Team Description 02/23/2025 Telephone [facility] [address] [place] [phone] Name, MD Yoandy Durable Medical Equipment (Glucerna) 02/20/2025 10:00 AM EST Office Visit [facility] [address] [place] [address] Name, MD Yoandy Type 2 diabetes mellitus with other circulatory complication, without long-term current use of insulin (HCC) (Primary Dx); Poor appetite; Weight loss; Food insecurity; Encounter for vaccination; Encounter for immunization; Heart transplant recipient (CMS/HCC) (HCC); History of IN (myocardial infarction) 02/20/2025 Patient Outreach [facility] [address] [place] [address] Name, MD Yoandy Care Coordination (CHW outreach [...] Description 05/23/2025 9:00 AM EST Office Visit [facility] [address] [place] [address] Name, MD oYandy [address] [place] [address] Health Maintenance Due Date Last Done Comments [...] Procedure Name Priority Date/Time Associated Diagnosis Comments GLUCOSE Routine 03/22/2025 10:50 AM EST POCT GLUCOSE Routine 02/20/2025 9:52 AM EST [...] complication, without long-term current use of insulin ([facility]) ALBUMIN, RANDOM URINE W/CREATININE Routine 04/14/2024 11:04 AM EST Type 2 diabetes mellitus with other circulatory complication, without long-term current use of insulin ([facility]) LIPID PANEL, STANDARD Routine 06/27/2022 9:53 AM EDT from Last 3 Months or Most Recently Relevant to Health Maintenance Results * (ABNORMAL) Glucose (03/22/2025 10:50 AM EST) Glucose Fasting 116(H) 60 - 99 mg/dL [facility] Comment:A fasting glucose fr om 100-125 mg/dl is considered impaired(pre-diabetes). 03/22/2025 10:5 0 AM EST 03/22/2025 10:50 AM EST us Generic External Data Provider LAB BLOOD ORDERAB LES Final Result [facility] [address] [place] [address] [phone] * (ABNORMAL) POCT Glucose (02/20/2025 9:52 AM EST) Glucose Blood, POC 220(A) 60 - 200 mg/dL QC Media Lot # [id number] Lot# Expiration Date Blood Capillary blood specimen / Unknown 02/20/2025 9:52 AM EST us Yoandy Tillman MD POINT OF CARE TEST ENTER/EDIT OR DERABLES Final Result * Glucose, Whole Blood (01/27/2025 3:15 PM EDT) Only the most recent of2 resultswithin the time period is included. Glucose, Whole Blood 106 60 - 115 mg/dL [facility] Comment:METER #: [id number] 0Testing performed in the Endocrinology Department [address] , [address], [facility]. 01/27/2025 3:15 PM EDT 01/27/2025 3:23 PM EDT us Generic External Data Provider LAB BLOOD ORDERAB LES Final Result [facility] [address] [place] [phone] * Gross and Microscopic Level 3 (01/19/2025 10:42 AM EDT) 01/19/2025 10:4 2 AM EDT 01/20/2025 9:10 AM EDT Michele [facility] - 01/23/2025 2:18 PM EDT ----- ------- Name: Matthew Toro Age/Sex: 69/M : 1955 Unit#: [id number] Attend Dr: Tamiko Ceballos DPM Re01/19/25 Status: DEP REF Location: [facility] Disch: ----- ------- SPEC : [id number] RECD: 01/20/25 STATUS: DON PHAN NUM: [id number] TIM: 01/19/[address] [facility] DR: Tamiko Ceballos DPM ENTERED: 01/20/25 [...] developed and their performance characteristics determined by [facility]. They have not been cleared or approved by the U.S. Food and Drug Administration (FDA). However, the FDA has determined that such clearance or approval is not necessary. This laboratory is certified under the Clinical Laboratory Improvement Amendments of 1988 (CLIA) as qualified to perform high complexity clinical laboratory testing. Copies To: Yoandy Tillman MD [address] [address] CONTINUED ON NEXT PAGE ----- ------- Name: Matthew Toro Age/Sex: 69/M : 1955 Unit#: [id number] Attend Dr: Tamiko Ceballos DPM Re01/19/25 Status: DEP REF Location: [facility] Disch: ----- ------- SPEC : [id number] RECD: 01/20/25 STATUS: DON PHAN NUM: [id number] TIM: 01/19/[address] [facility] DR: Tamiko Ceballos DPAnderson ENTERED: 01/20/25 SP TYPE: Surgical OTHR DR: Yoandy Tillman MD ORDERED: Gross Micro L3 Copies To: (Continued) Tamiko Ceballos DPM [facility] Podiatry-[address] [phone] [email or web address] ----- ------- Signed (signature on file) Shruti Jean 01/23/25 1418 ----- ------- END OF REPORT Generic External Data Provider LAB CYTOLOGY ORDE RABGABRIELA Final Result Performing Organization Address [facility] Co de Phone Number [facility] [address] [place] [phone] * POCT HGB A1C (07/27/2024 10:59 AM EDT) Hemoglobin A1C 5.7 4.0 - 6.0 % QC Media Lot # [id number] Lot# Expiration Date Blood 07/27/2024 10:5 9 AM EDT Yoandy Tillmna MD POINT OF CARE TEST ENTER/EDIT OR DERABLES Final Result * Albumin, Random Urine W/Creatinine (04/14/2024 11:04 AM EST) Creatinine, Urine 109.08 mg/dL [facility] Microalbumin Urine 6.0 mg/L [facility] Microalbum Creatinine Ratio Ur 5.5 <30 ug/mg cr [facility] Comment:Albumin/Creatinine R atio Reference Ranges: Normal: < 30 ug/mg creatinine Microalbuminuria: 30 - 300 ug/mg creatinineClinical Albuminuria: > 300 ug/mg creatinine Urine (Urine, Random) 04/14/2024 11:04 AM EST 04/14/2024 1:04 PM EST us Yoandy Tillman MD LAB URINE ORDERABLES Final Resul t Performing Organization Address [facility] Co de Phone Number [facility] [address] [place] [phone] [phone] * Lipid Panel, Standard (06/27/2022 9:53 AM EDT) Triglycerides 84 mg/dL [facility] Comment:Desirable Triglyceri de: less than 150 mg/dLBorderline High Triglyceride 150-199 mg/dLHigh Triglyceride: 200-499 mg/dLVery High Triglyceride: greater than or equal to 5OO mg/dL Cholesterol 154 mg/dL [facility] Comment:Desirable Cholestero l: less than 200 mg/dLBorderline High Cholesterol: 200-239 mg/dLHigh Cholesterol: greater than 239 mg/dL LDL Cholesterol Calculated 104 mg/dl [facility] Comment:Desirable LDL: less than 100 mg/dLNear Optimal/Above Optimal LDL: 110- 129 mg/dLBorderline High LDL: 130-159 mg/dLHigh LDL: 160-189 mg/dLVery High LDL: greater than or equal to 190 mg/dL HDL Cholesterol 34 mg/dL [facility] Comment:Desirable HDL: great er than 40 mg/dL Note: This HDL assay may give artificially low results in patients with liver disease. 06/27/2022 9:53 AM EDT 06/27/2022 9:53 AM EDT [facility] External Provider LAB BLO OD ORDERABLES Final Result [facility] [address] [place] [address] [phone] from Last 3 Months or Most Recently Relevant to Health Maintenance Additional Health Concerns Active Problems Noted Date Diagnosed Date Help patients manage their type 2 diabetes 02/16 Patient has chronic kidney disease 02/16/2025 Patient has chronic kidney disease 02/20/2025 Patient has chronic kidney disease 02/23/2025 Insurance MEDICARE [facility] STANDARD [facility] [employer] MEDICARE SUPPLEMENT [address] [place] [address] [address] [place] [address] Care Teams Assisted Living Manager Relationship Specialty Start Date End Date Name, MD Yoandy [address] [place] [address] PCP - General Internal Medicine 10/19/23 [facility] 01/19/24
--- OUTSIDE RECORDS SUMMARY | 2025-03-22 13:13 | XMS_ITS | Encounter Summary ---
Author Organization [employer] Address [address] [facility] [address] [place] [address] Care Team Providers Care [employer]ters [employer] Machin[employer] Name Role Phone Name, Yoandy LUGO Primary Care Provider Name, Yoandy LUGO Primary Care Provider Reason for Visit * Reason Onset Date Comments FYI 10/01/2022 Encounter Details Date Type Department Care Team ([facility] st Contact Info) Description 10/01/2022 Telephone [facility] [address] [place], [place] [phone] Name, MD Yoandy [address] [place] [address] FYI Social History Tobacco Use Types Packs/Day [...] facility that patient during their vacation in [place] had two Heart Attacks and is currently hospitalized since 09/15/2022 at the [facility] documented in this encounter Plan of Treatment Upcoming Encounters Date Type Department Care Team (Late st Contact Info) Description 05/23/2025 9:00 AM EST Office Visit [facility] [address] [place] [address] Name, MD Yoandy [address] [place] [phone] documented as of this encounter Visit Diagnoses Not on filedocumented in this encounter Care Teams [employer] Relationship Specialty Start Date End Date Name, MD Yoandy [address] [place] [phone] PCP - General Family Medicine 01/18/21 06/04/23 Name, MD Yoandy [address] [place] [phone] PCP - General Internal Medicine 10/19/23 [facility] 01/19/24 documented as of this encounter
--- OUTSIDE RECORDS SUMMARY | 2025-03-22 13:13 | XMS_ITS | Encounter Summary ---
Author Organization [facility] Address 800 [facility] [address] [place] [address] Care Team Providers Care Carpet Finishing Supervisor Name Role Phone Glenn Herman MD Unavailable Name, Yoandy LUGO Primary Care Provider Edward Handley [facility] Unavailable Unavailable Jennie Michelle PharmD Unavailable [phone] Juan Hutchinson MD Unavailable [phone] Charlie Barry MD Unavailable [phone] Encounter Details Date Type Department Care Team (Late st Contact Info) Description 12/25/2023 Lab Requisition HLA Lab 800 [place] [address] Pedro Kline MD [address] [place], [place] [phone] Cardiomyopathy, unspecified (Multi-HCC) Social History Tobacco Use [...] Description 05/15/2025 1:00 PM EST Office Visit Dermatology 260 [place] [address] Nelida Ayala MD 800 [place] [address] 07/06/2025 1:00 PM EDT Office Visit Lung Nodule [address] [address] Alfred Mckeon MD 860 [place] [address] 07/06/2025 1:30 PM EDT Office Visit Lung Nodule [address] [address] Yoav Lugo Lung Nod Pul 07/12/2025 10:30 AM EDT Appointment Pulmonary Function Lab 800 [facility] 5th Floor Room [address] [place] [phone] 07/12/2025 11:30 AM EDT Office Visit Pulmonary 260 [facility] [address] [address] Daysi Fink MD 800 [facility] [address] [place] [address] documented as of this encounter Procedures Procedure Name Priority Date/Time Associated Diagnosis Comments HLA CONSULTATION Routine 12/25/2023 8:41 AM EDT Cardiomyopathy, unspecified (Multi-HCC) documented in this encounter Results * HLA Consultation (12/25/2023 8:41 AM EDT) PDF Attached See PDF Document 12/26/2023 3:15 PM EDT [facility] HLA LAB Blood Venous blood specimen / Unknown 12/25/2023 8:41 AM EDT 12/25/2023 7:39 PM EDT us Pedro Kline MD LAB BLOOD ORDERABLES Maral l Result [facility] HLA LAB 800 [place] [address], documented in this encounter Visit Diagnoses Diagnosis Cardiomyopathy, unspecified documented in this encounter Care Teams Carpet Finishing Supervisor Relationship Specialty Start Date End Date Name, MD Yoandy [address] [place] [address] PCP - General Literacy Specialist 11/12/23 Glenn Herman MD [address] [place] [address] Referring Physician Cardiology 11/12/23 Edward Hanldey CPhT [facility] 12/31/23 Jennie Michelle, RadhaD [address] [place] [phone] Pharmacist Pharmacy 01/27/24 Juan Hutchinson MD [address] [place] [address] [address] [place] [address] Attending Physician Cardiology 12/19/24 Charlie Barry MD [address] [place] [address] Consulting Physician Advanced Heart Failure and Transplant Cardiology 03/20/25 documented as of this encounter
--- OUTSIDE RECORDS SUMMARY | 2025-03-22 13:13 | XMS_ITS | Encounter Summary ---
Author Organization [facility] Address 800 [facility] [address] [place] [address] Care Team Providers Care Automobile Body Customizer Name Role Phone Glenn Herman MD Unavailable Name, Yoandy LUGO Primary Care Provider Edward Handley [facility] Unavailable Unavailable Jennie Michelle PharmD Unavailable [phone] Juan Hutchinson MD Unavailable [phone] Charlie Barry MD Unavailable [phone] Encounter Details Date Type Department Care Team (Late st Contact Info) Description 12/29/2023 Lab Requisition [facility] HLA Lab 800 [place] [address] Pedro Kline MD [address] [place], [place] [phone] Cardiomyopathy, unspecified (Multi-HCC) Social History Tobacco Use [...] Description 05/15/2025 1:00 PM EST Office Visit [facility] Dermatology 260 [place] [address] Nelida Ayala MD 800 [place] [address] 07/06/2025 1:00 PM EDT Office Visit [facility] Lung Nodule [address] [address] Alfred Mckeon MD 860 [place] [address] 07/06/2025 1:30 PM EDT Office Visit [facility] Lung Nodule [address] [address] Yoav Lugo Lung Nod Pul 07/12/2025 10:30 AM EDT Appointment [facility] Pulmonary Function Lab 800 [facility] 5th Floor Room [address] [place] [address] 07/12/2025 11:30 AM EDT Office Visit [facility] Pulmonary 260 [facility] [address] [address] Daysi Fink MD 800 [facility] [address] [place] [address] documented as of this encounter Procedures Procedure Name Priority Date/Time Associated Diagnosis Comments HLA CONSULTATION Routine 12/26/2023 11:5 6 PM EDT Cardiomyopathy, unspecified (Multi-HCC) documented in this encounter Results * HLA Consultation (12/26/2023 11:56 PM EDT) PDF Attached See PDF Document 01/02/2024 12:57 PM EDT [facility] HLA LAB Blood Venous blood specimen / Unknown 12/26/2023 11:56 PM EDT 12/29/2023 10:28 PM EDT us Pedro Kline MD LAB BLOOD ORDERABLES Maral l Result Performing Organization Address City/State/[facility] Co de Phone Number [facility] HLA LAB 800 [place] [address], documented in this encounter Visit Diagnoses Diagnosis Cardiomyopathy, unspecified documented in this encounter Care Teams Automobile Body Customizer Relationship Specialty Start Date End Date Name, MD Yoandy [address] [place] [address] PCP - General Transportation Services Representative 11/12/23 Glenn Herman MD [address] [place] [address] Referring Physician Cardiology 11/12/23 Edward Handley CPhT Operating Room Specialist Pharmacy 12/31/23 Jennie Michelle, RadhaD [address] [place] [phone] Pharmacist Pharmacy 01/27/24 Juan Hutchinson MD [address] [place] [address] [address] [place] [address] Attending Physician Cardiology 12/19/24 Charlie Barry MD [address] [place] [address] Consulting Physician Advanced Heart Failure and Transplant Cardiology 03/20/25 documented as of this encounter
--- OUTSIDE RECORDS SUMMARY | 2025-03-22 13:13 | XMS_ITS ---
Author Organization [facility] Address 800 [facility] [address] [place] [address] Care Team Providers Care Melt House Supervisor Name Role Phone Glenn Herman MD Unavailable [phone] Yoandy Tillman MD Primary Care Provider [phone] Edward Handley sales engagement executive Unavailable Unavailable Jennie Michelle PharmD Unavailable Juan Hutchinson MD Unavailable [phone] Charlie Barry MD Unavailable [phone] Transplant Episode Heart Recipient [facility] ([place], [place]) - [facility] Organ Received: Heart Transplanted on 12/28/2023 Marked as Active Follow-up on 12/28/2023 Heart CoordinatorZackery Paulino RN Phone: N/A Fax: N/A Email: N/A [place] Organ Diagnosis Organ Primary Contributory Heart Dilated [...] Role Phone Fax Email Zackery Paulino RN Civilian Jail Officer N/A N/A N/A Glenn Herman MD Referring Physician [phone] N/A Izaiah Watt MD Export Manager [phone] N/A Events Post-Transplant Pre-Transplant Admitted: 11/23/2023 Referred: 11/09/2023 Transplanted: 12/28/2023 Evaluation began: 4 Discharged: 01/14/2024 Committee: 12/21/2023 Center waitlisted: 4 Appointments (02/20/2025 - 04/22/2025) When With Visit Type Description 03/20/2025 Cardiology - Carmen Barry Follow Up Sp ecialty Appointment Heart transplant recipient; Mixed hyperlipidemia
--- OUTSIDE RECORDS SUMMARY | 2025-03-22 13:13 | XMS_ITS | Encounter Summary ---
Author Organization [facility] Address 800 [facility] [address] [place] [address] Care Team Providers Care Hand Former Name Role Phone Glenn Herman MD Unavailable [phone] Yoandy Tillman MD Primary Care Provider Edward Handley [facility] Unavailable Unavailable Jennie Michelle PharmD Unavailable [phone] Juan Hutchinson MD Unavailable [phone] Charlie Barry MD Unavailable [phone] Reason for Visit * Reason Comments Med Change Request Encounter Details Date Type Department Care Team (Late st Contact Info) Description 03/17/2024 Refill [facility] Cardiac Subspecialty 860 [facility] 6th [place] [address] Charlie Barry MD 800 [place], [place] [phone] 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) Social History [...] Assessment Author No 11/26/2023 11:17 AM Bethany Padilal RN * Because of a physical, mental, [...] Filled at [facility] documented in this encounter Plan of Treatment Upcoming Encounters Date Type Department Care Team (Late st Contact Info) Description 05/15/2025 1:00 PM EST Office Visit [facility] Dermatology 260 [place] [address] Nelida Ayala MD [address] [place] [address] 07/06/2025 1:00 PM EDT Office Visit [facility] Lung Nodule [address] [address] Alfred Mckeon MD 860 [place] [address] 07/06/2025 1:30 PM EDT Office Visit [facility] Lung Nodule [address] [address] Yoav Portillo Lung Nod Pul 07/12/2025 10:30 AM EDT Appointment [facility] Pulmonary Function Lab 800 [facility] 5th Floor Room [address] [place] [address] 07/12/2025 11:30 AM EDT Office Visit [facility] Pulmonary 260 [facility] 3rd [place] [phone] Daysi Fink MD 800 [facility] [address] [place] [address] documented as of this encounter Visit Diagnoses Diagnosis Heart replaced by transplant documented in this encounter Care Teams Hand Former Relationship Specialty Start Date End Date Name, MD Yoandy 230 [place] [address] PCP - General Cnc Laser Operator 11/12/23 Glenn Herman MD [address] [place] [address] Referring Physician Cardiology 11/12/23 Edward Handley, research microbiologist [facility] 12/31/23 Jennie Michelle, PharmD [address] [place] [address] Pharmacist Pharmacy 01/27/24 Juan Hutchinson MD [address] [place] [address] [address] [place] [address] Attending Physician Cardiology 12/19/24 Charlie Barry MD [address] [place] [address] Consulting Physician Advanced Heart Failure and Transplant Cardiology 03/20/25 documented as of this encounter
--- OUTSIDE RECORDS SUMMARY | 2025-03-22 13:13 | XMS_ITS ---
Author Organization [facility] Address 800 [facility] [address] [place] [address] Care Team Providers Care President Of The [place] Name Role Phone Glenn Heramn MD Unavailable [phone] Yoandy Tillman MD Primary Care Provider [phone] Edward Handley [facility] Unavailable Unavailable Jennie Michelle PharmD Unavailable [phone] Juan Hutchinson MD Unavailable [phone] Charlie Barry MD Unavailable [phone] RxSp Transplant Status:Enrolled (Active) Start date:12/31/2023 Enrollment date:12/31/2023 Enrollment reason:Identified by Other Non-PCP Provider Current support & services provided:Clinical Management, Refill Management, Benefits and PA Management, Adherence Management, Mail Order Management Primary medications:calcium carbonate (Active), cholecalciferol (vitamin D3) (Active), levetiracetam (Active), mycophenolate mofetil (Active), pantoprazole sodium (Active), pravastatin sodium (Active), prednisone (Active), sulfamethoxazole/trimethoprim (Discontinued), tacrolimus (Active) Overview HEART TX 12/28/2023 Case Team Name Relationship Phone Edward Handley CPhT(Responsible Staff) Radiology Special Procedure Tech Jennie Michelle PharmD Pharmacist [phone] Continued Care and Services Coordination
--- OUTSIDE RECORDS SUMMARY | 2025-03-22 13:13 | XMS_ITS | Encounter Summary ---
Author Organization [employer] Address [address]t [place] [address] Care Team Providers Care Supervisor Photoengraving Name Role Phone Name, Yoandy LUGO Primary Care Provider [phone] Name, Yoandy LUGO Primary Care Provider [phone] Encounter Details Date Type Department Care Team (Late st Contact Info) Description 03/21/2022 Orders Only [facility] 230 [place] [address] Coby Flores RN Social History Tobacco Use [...] Not at all 03/24/2022 9: 10 AM eRena Jefferson [place] Feeling bad about yourself - [...] Description 05/23/2025 9:00 AM EST Office Visit [facility] 230 [place] [address] Name, MD Yoandy [address] [place] [address] documented as of this encounter Procedures Procedure Name Priority Date/Time Associated Diagnosis Comments B TYPE NATRIURETIC PEPTIDE (BNP) Routine 06/27/2022 9:53 AM EDT HEPATIC FUNCTION PANEL Routine 06/27/2022 9:53 AM EDT LIPID PANEL, STANDARD Routine 06/27/2022 9:53 AM EDT BASIC METABOLIC PANEL Routine 06/27/2022 9:53 AM EDT documented in this encounter Results * Lipid Panel, Standard (06/27/2022 9:53 AM EDT) Triglycerides 84 mg/dL [facility] Comment:Desirable Triglyceri de: less than 150 mg/dLBorderline High Triglyceride 150-199 mg/dLHigh Triglyceride: 200-499 mg/dLVery High Triglyceride: greater than or equal to 5OO mg/dL Cholesterol 154 mg/dL [facility] Comment:Desirable Cholestero l: less than 200 mg/dLBorderline High Cholesterol: 200-239 mg/dLHigh Cholesterol: greater than 239 mg/dL LDL Cholesterol Calculated 104 mg/dl [facility] Comment:Desirable LDL: less than 100 mg/dLNear Optimal/Above Optimal LDL: 110- 129 mg/dLBorderline High LDL: 130-159 mg/dLHigh LDL: 160-189 mg/dLVery High LDL: greater than or equal to 190 mg/dL HDL Cholesterol 34 mg/dL [facility] Comment:Desirable HDL: great er than 40 mg/dL Note: This HDL assay may give artificially low results in patients with liver disease. 06/27/2022 9:53 AM EDT 06/27/2022 9:53 AM EDT [facility] External Provider LAB BLO OD ORDERABLES Final Result [facility] [address] [place] [phone] * (ABNORMAL) Basic Metabolic Panel (06/27/2022 9:53 AM EDT) Sodium 143 135 - 145 mmol/L [facility] Potassium 4.6 3.3 - 5.1 mmol/L [facility] Chloride 108 96 - 108 mmol/L [facility] Carbon Dioxide 26 22 - 29 mmol/L [facility] Anion Gap 14 12 - 20 [facility] Urea Nitrogen (BUN) 13 9 - 16 mg/dL [facility] Creatinine, Serum 1.02 0.5 - 1.4 mg/dL [facility] Estimated Glomerular Filt Rate >60 [facility] Comment:NOTE: For -Am erican individuals, multiply the result by 1.210.Chronic Kidney Disease: Estimated GFR < 60 mL/min/1.59o2Ezphkb Kidney Disease: Estimated GFR < 15 mL/min/1.73m2 Glucose 141(H) 60 - 115 mg/dL [facility] Calcium 9.4 8.4 - 10.2 mg/dL [facility] 06/27/2022 9:53 AM EDT 06/27/2022 9:53 AM EDT [facility] External Provider LAB BLO OD ORDERABLES Final Result Performing Organization Address [facility] Co de Phone Number [facility] [address] [place] [phone] * Hepatic Function Panel (06/27/2022 9:53 AM EDT) Bilirubin, Total 1.0 0.0 - 1.0 mg/dL [facility] Bilirubin, Direct 0.3 0.0 - 0.5 mg/dL [facility] Aspartate Amino Transferase 19 5 - 37 U/L [facility] Alanine Aminotransferase 24 0 - 40 U/L [facility] Total Protein 6.7 6.5 - 8.0 g/dL [facility] Albumin Level 4.2 3.5 - 5.0 g/dL [facility] Alkaline Phosphatase 61 39 - 117 U/L [facility] 06/27/2022 9:53 AM EDT 06/27/2022 9:53 AM EDT [facility] External Provider LAB BLO OD ORDERABLES Final Result Performing Organization Address [facility] de Phone Number [facility] [address] [place] [phone] * (ABNORMAL) B Type Natriuretic Peptide (BNP) (06/27/2022 9:53 AM EDT) B Type Natriuretic Peptide 332(H) <100 pg/mL [facility] Comment:For those patients w ho are being treated with Natrecor(nesiritide, recombinant BNP), BNP testing should beperformed at least two hours post treatment in order toensure that only endogenous levels of BNP are detected. 06/27/2022 9:53 AM EDT 06/27/2022 9:53 AM EDT us [facility] External Provider LAB BLO OD ORDERABLES Final Result [facility] [address] [place] [phone] [phone] documented in this encounter Visit Diagnoses Not on filedocumented in this encounter Care Teams Supervisor Photoengraving Relationship Specialty Start Date End Date NameYoandy MD [address] [place] [address] PCP - General Family Medicine 01/18/21 06/04/23 Name, MD Yoandy [address] [place] [address] PCP - General Internal Medicine 10/19/23 [facility] 01/19/24 documented as of this encounter
== END 2025-03-22 10:34 | disposition home or self-care (01) ==
LOC: HO.LAB 10:33
PROVIDERS: PCP Internal Medicine Geriatric Medicine; Visit Provider Student in an Organized Health Care Education/Training Program
DX: E11.8 Type 2 diabetes mellitus with unspecified complications (principal); Z79.4 Long term (current) use of insulin
CPT/HCPCS: 36415; 82947; 84681

== ENCOUNTER 2025-03-23 11:03 | Outpatient (AMB) | payer MEDICARE, SELFPAY ==
--- OUTSIDE RECORDS SUMMARY | 2025-03-20 12:00 | XMS_ITS | Encounter Summary ---
Author Organization [facility] Address [address] [facility] [address] [place] [address] Care Team Providers Care Primary Therapist Name Role Phone Glenn Herman MD Unavailable [phone] Yoandy Tillman MD Primary Care Provider Edward Handley [facility] Unavailable Unavailable Jennie Michelle PharmD Unavailable [phone] Juan Hutchinson MD Unavailable [phone] Charlie Barry MD Unavailable [phone] Encounter Details Date Type Department Care Team (Late st Contact Info) Description 03/20/2025 12:00 PM EST Office Visit [facility] Cardiac Subspecialty [address] [facility] [address] [place] [phone] Charlie Barry MD [address] [place] [address] Heart transplant recipient (Primary Dx); Mixed hyperlipidemia; Immunosuppressed status; Cytomegalovirus infection, unspecified cytomegaloviral infection type; Tracheal stenosis; Sarcoidosis; History of seizure Social History Tobacco Use Types Packs/Day Years [...] of Assessment Author Oral 03/20/2025 12:36 PM EST Willy Mckeon MA * Abuse/Neglect Question Answer Date of Assessment Author Do you feel safe at home? Unable to Answer- Cognitive Impairment 03/20/2025 12:39 PM EST Jasmine Mckeon MA Do you feel safe in all your relationships? Unable to Answer- Cognitive Impairment 03/20/2025 12:39 PM EST Jasmine Mckeon MA * BP Location Answer Date of Assessment Author Left arm 03/20/2025 12:36 PM EST Willy Mckeon MA * Fall Risk Assessment Question Answer [...] documented in this encounter Progress Notes * Charlie Barry MD - 03/20/2025 12:00 PM EST Images from the original note were not included. [facility] CARDIAC SUBSPECIALTY [facility] Cardiac Subspecialty [address] [place] [phone] Dept: [phone] Dept Patient ID: Matthew Avila is a 69 y.o. male who presents for post transplant monitoring and management. Date of Visit: 03/20/2025 Referring Inclusion Special Educator: Glenn Herman Associated Providers: Yoandy Tillman MD Transplant Date(s): 12/28/2023 (Heart) Pertinent Cardiac History: Matthew Avila is 69 y.o. male, Irish-speaking, who presents to the clinic today for follow-up post-heart transplantation on 12/28/2023 (CMV +/+, EBV +/+, Toxo -/+) with retained ICD.His other medical history is notable for DM2 and pulmonary nodules. He has a history of systemic sarcoidosis and end-stage NICM (confirmed to be cardiac sarcoidosis onexplanted heart pathology), presented in cardiogenic shock and bridged with Impella 5.5 to OHT. Post-OHT course was notable for vasoplegia (requiring methylene blue), positive donor blood culture forSerratia (confirmed after transplant), s/p zosyn --> CTX, and seizure-like activity during sedation wean, with normal EEG, head CT, and neurologic exam. He was loaded with Keppra, which was transitioned to 1gm BID, and weaned down to 750mg BID. Basiliximab induction on 12/28 and 01/01 (tac held inthe setting of seizures), but was ultimately discharged to tac, MMF and prednisone, on 01/14/24. He has had no significant rejection so far. He had persistent wheezing in the months following discharge and following tracheostomy decannulation. Chest CT in March 2024 showed no acute findings to explain the wheezing, likely tracheal stenosis, he was scheduled for ENT follow-up with bronchoscopy locally. His reports he had a tracheal dilation with a balloon but she does not feel it madea significant difference. In 06/2024, CMV was positive and valganciclovir was resumed. Valcyte stopped 11/2024. MMF decreased to 750mg BID for poor appetite with subsequent improvement. 12/19/24: 1st annual. Reported nonproductive cough. Restarted valcyte for CMV reactivation. [facility] withnormal cors. He reported dyspnea and wheezing with exertion which has been stable. He gets tired with walking at the store and needs to sit to rest, though they feel this is more related to his tracheal stenosis than heart failure symptoms. 02/28/25: underwent bronch and dilation of the tracheal stenosis. 03/20/25: Follow up visit. Here for a follow up. Doing well, able to walk in the mall. Dyspnea improved after tracheal dilation. Had increased cough after the dilation, for which he was given a course of prednisone 20mg x 5 days by pulmonology, which helped relieve. No chest pain or sob. No diarrhea. No dizziness or lightheadedness. Home BP 120s/70s. Plans to switch to insulin pump. A(n) video video arcade manager was used to obtain the history and discuss the treatment plan with the patient. The video arcade manager was used for the following language: Irish. The video arcade manager's [place]: [place] [id number], name Awa. Seen in conjunction with [employer] Zackery Paulino RN/BSN Current Outpatient Medications Medication Instructions alcohol swabs pads, medicated Swab prior to testing and insulin administration as directed amoxicillin (AMOXIL) 2,000 mg, Once as needed aspirin 81 mg, oral, Daily bisacodyl (DULCOLAX) 5 mg, Daily PRN calcium carbonate 1,250 mg, oral, 2 times daily with meals cholecalciferol (vitamin D3) (VITAMIN D-3) 1,000 Units, oral, Daily famotidine (PEPCID) 20 mg, oral, Daily before evening meal fluocinolone and shower cap 0.01 % oil Apply twice daily topically to scalp for up to 2 weeks per month. Stop when clear. fluticasone (Flonase) 50 mcg/actuation nasal spray 1 spray, Each Nostril, Daily, Shake gently. Before first use, prime pump. After use, clean tip and replace cap. insulin glargine (Lantus Solostar U-100 Insulin) 100 unit/mL (3 mL) injection Inject 30 units underthe skin every evening. insulin lispro (HumaLOG KwikPen Insulin) 100 unit/mL injection Inject 6 units under the skin with breakfast, 12 units with lunch and 12 units with dinner. max 30 units/24 hours insulin lispro (HumaLOG) 100 unit/mL injection Inject 6 Units under the skin before breakfast AND 12 Units before lunch AND 12 Units before evening meal. ketoconazole (NIZOral) 2 % cream Apply topically twice daily to affected areas, stop when clear. levETIRAcetam (KEPPRA) 750 mg, oral, 2 times daily mycophenolate (CELLCEPT) 250 mg, oral, 2 times daily mycophenolate (CELLCEPT) 500 mg, oral, 2 times daily, Take in addition to 250mg cap, total dose 750mg twice daily. pantoprazole (PROTONIX) 40 mg, oral, Daily before breakfast, Do not crush, chew, or split. pen needle, diabetic (BD Ultra-Fine Mini Pen Needle) 31 gauge x 3/16 needle Use with insulin pen as directed pravastatin (PRAVACHOL) 80 mg, oral, Daily predniSONE (DELTASONE) 5 mg, oral, Daily tacrolimus (PROGRAF) 5 mg, oral, 2 times daily tacrolimus (PROGRAF) 1 mg, oral, 2 times daily triamcinolone (Kenalog) 0.1 % ointment Apply topically twice daily to affected areas, stop when clear. For up to 2 weeks per month. Current IS: Tacrolimus 6 mg BID (goal trough 8-12) LD 9pm 03/19, MMF 750mg BID, and Prednisone 5mg daily. Completed Pred 20mg x 5 days 03/10-03/15 Allergies Allergen Reactions Lisinopril Swelling Pt states that his nose swells to more than twice its normal size when he takes Lisinopril, and that he feels congested when this happens. He states that he does not experience swelling in or around his mouth or throat and does not experience difficulty breathing. Medical History[1] Surgical History[2] Social History[3] Family History[4] Family History Problem Relation Name Age of Onset Cancer Mother Lillie Bender Diabetes Mother Lillie Bender Cancer Father Dar Avila Alfaro Diabetes Father Dar Avila Alfaro Hypertension Father Dar Avila Alfaro Diabetes Brother Emmanuel Avila Avila Diabetes Sister Mar??a Stephanie Avila Avila ROS: 12 point ROS negative except as specified in HPI Objective: Visit Vitals BP 124/78 (BP Location: Left arm, Patient Position: Sitting, BP Cuff Size: Adult) Pulse 98 Temp 36.7 ??C (98 ??F) (Oral) Ht 1.727 m Wt 61.7 kg SpO2 99% BMI 20.68 kg/m?? BSA 1.72 m?? Wt Readings from Last 3 Encounters: 03/20/25 61.7 kg 02/28/25 61.2 kg 02/22/25 62.1 kg PHYSICAL EXAM: Constitutional: no acute distress Head: normocephalic, without obvious abnormality, atraumatic Neck: supple. No JVD Respiratory: clear to auscultation bilaterally, no wheezing Cardiovascular: RRR, normal S1/S2, no m/r/g Lower Extremities: no bilateral lower extremity edema. Gastrointestinal: normal bowel sounds. Soft, non-tender Neurologic: No focal deficits, alert and oriented x3, Normal coordination and gait. Psychiatric: Appears in good mood, fluent in speech and cognition. LABS: CBC Lab Results Component Value Date WBC 4.7 03/20/2025 HGB 11.9 (L) 03/20/2025 HCT 37.9 03/20/2025 MCV 87.1 03/20/2025 PLT 161 03/20/2025 Basic Metabolic Panel Lab Results Component Value Date NA 143 03/20/2025 K 4.8 03/20/2025 CL 106 03/20/2025 CO2 28 03/20/2025 CALCIUM 9.8 03/20/2025 ANIONGAP 9 03/20/2025 GLUCOSE 138 03/20/2025 BUN 15 03/20/2025 CREATININE 1.02 03/20/2025 EGFR 80 03/20/2025 BCR 20 09/14/2024 Lipid Panel Lab Results Component Value Date CHOL 156 03/20/2025 TRIG 128 03/20/2025 HDL 44 03/20/2025 VLDLCCAL 23 03/20/2025 LDLCALC 89 03/20/2025 NONHDLCALC 112 03/20/2025 Lab Results Component Value Date TACROLIMUS 5.9 03/20/2025 TACROLIMUS 7.5 01/03/2025 TACROLIMUS 7.3 01/10/2024 Cardiac Testing: EC12/31/23: ST 102bpm. Non-specific T abnormalities, lateral leads. Echocardiogram: 10/03/2024: LV normal size, function. LVEF 60-65%. RV normal size/function. IVC normal size. Mild MR, mild TR, trace UT. No pericardial effusion. 04/01/2024: LVEF 65-70%, normal LV wall thickness, RV normal in size and function, mild MR/TR, no pericardial effusion 01/13/2024 : Limited study showing no significant change in the anterior echodensity, consistent with mediastinal blood/hematoma 01/11/2024 : LVEF 55%, RV normal in size and function, no MR, mild TR, no pericardial effusion, but mediastinal echodensity consistent with blood product/hematoma, unchanged from prior. 01/05/2024 : LVEF 70+%, hyperdynamic, normal LV wall thickness, RV normal in size and function, severe TR, dilated IVC, small pericardial effusion [facility] 01/03/25: normal coronaries Stress test: 12/19/24 DSE: No ischemia. 87% MPHR achieved. RHC/EMBx, Heartcare: 03/20/25: prospera pending 01/03/25: RA 0, PA 20/6/11, PCWP 2, CI 3.3, 1A, pAMR 0 11/07/24: 32/<0.04% 10/03/24: AlloMap 34, AlloSure < 0.04% 09/05/24: Allomap 29, Allosure <0.04% 08/01/2024: Allomap 33, <0.04%. 06/29/2023: RA 0, PA 21/7 (11), W 7, PA sat 68%, Narayan 4.8/2.8, biopsy grade 0, pAMR 0 05/30/2024: AlloMap 31, AlloSure <0.04% 05/04/24: allosure <0.04%, allomap 22 04/01/24: allosure 0.04%, allomap 33 03/09/24: Allosure 0.04, Allomap 31 02/23/24: RA 0, PA 25/9 (15), W 8, PA sat 74% Narayan 5/3, biopsy Grade 0R, pAMR 0 02/08/2024: RA 0, PA 19/6 (11), W 5, Narayan 6.3/3.8, biopsy 1A, pAMR 0 01/26/2024: RA 1, PA 21/7(12), PCWP 6, Narayan CO - 5.5, CI - 3.3, biopsy 1A, pAMR 0 01/20/2024: RA 3, PA 25/14/19, PCWP 10, MV 73%, CO/CI 4.7/2.8, biopsy 1A, pAMR 0 01/12/2024: RA -1, PA 21/5/12, PCWP 5, CO/CI 13.6/8.1, biopsy non-diagnostic 01/05/2024: RA 2, PA 29/6, PCWP 6, Narayan CO/CI 8.0/4.7, biopsy 1A, pAMR 0 Explant Heart Pathology Final Diagnosis Heart (487 grams), Explant and ICD Removal: - Cardiac sarcoidosis with extensive fibrosis. - Mild to moderate multivessel coronary atherosclerosis with up to 50% lumen stenosis focally. - ICD device (gross examination only). Comment: GMS and AFB stains are negative for microorganisms. Trichrome stain highlights large areasof replacement fibrosis. No amyloid deposition is seen (Congo red stain). DSAs 08/01/2024 - no DSA 04/01/2024 - no DSA 12/29/2023 - no DSA Other Radiology: 06/28/2024 CXR: No acute abnormality 05/04/24 CXR: no acute pulmonary abnormality 04/01/24 CT Chest: 1. Findings typical for pulmonary sarcoidosis, improved compared to the previous exam. 2. No other interstitial or airspace process is appreciated. There is no air-trapping PFTs .2024: PFTs 09/2024 --- Assessment and Plan: NYHA class: II Pre transplant diagnosis: Sarcoidosis Matthew Avila is a 69 y.o. male, s/p OHT 12/28/2023 (Heart), here for posttransplantmonitoring. s/p OHT 12/28/2023 (CMV +/+, EBV +/+, Toxo -/+) 15 months posttransplant, he describes stable NYHA class II symptoms. Euvolemic, not on any diuretics. Graft function on DSE 12/2024 reassuring. Normal cors on LHC 12/2024. Prospera from today pending. Immunosuppression: - MMF 750 mg twice daily (recurrent CMV and leukopenia) - tacrolimus for goal 8-12 (5.9 today but 17 hour trough). Will keep the dose and check trough level locally. - prednisone 5 mg (indefinite due to sarcoid history) CAV prophylaxis: ASA and pravastatin. 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 Resumed treatment in Dec 2024for rising levels, and finished treatment 01/23. Finishing CMV surveillance 03/21 per ID guidance. HTN Normotensive today, not requiring blood pressure medication currently. HLD On Pravastatin 80. LDL 89 within goal < 100. Will continue without changes. DM2 On NPH and mealtime insulin. Following locally. History of tracheostomy and subglottic stenosis Has been followed by local ENT, and was also recently managed by pulmonology. Recently underwent bronchoscopy and dilation by IP in Feb 2025, after which he reports that his breathing has improved. Will need to follow up in July 2025. Systemic sarcoidosis Jil-bronchovascular and fissural pulmonary nodules His explanted heart revealed cardiac sarcoidosis with extensive fibrosis. CT chest pre-OHT revealedperi-bronchovascular and fissural nodular disease, along with PET scan, suggestive of sarcoidosis. CT chest 03/2024 with findings typical for pulm sarcoidosis, thought improved from prior. CT chest 12/2024 showed mild improvement. As above, plan to continue 5 mg daily of prednisone indefinitely, Continue to follow with pulmonology. History seizure disorder He sees neurology at [facility], plan is for indefinite Keppra given lower seizure threshold --- RTC in 3 months with echo and cfDNA On the day of the encounter I spent 60 minutes on the total patient encounter, including time reviewing tests and/or medical records, taking a history, performing a medically appropriate examination and/or evaluation, counseling and educating the patient/family/caregiver, completing clinical documentation in the electronic or other health record, independently interpreting test results and communicating results to the patient/family/caregiver and care coordination. Charlie Barry MD [1] Past Medical History: Diagnosis Date Arthritis Cardiac arrest CHF (congestive heart failure) COPD (chronic obstructive pulmonary disease) Diabetes mellitus GERD (gastroesophageal reflux disease) History of tracheostomy Memory loss NICM (nonischemic cardiomyopathy) Observed seizure-like activity Pulmonary nodules Sarcoidosis Seizures Stroke Subglottic stenosis 12/28/2023 Due to prior prolonged intubation vs trach. S/p multiple dilations in the past. Able to pass a 7.0 ETT, but no larger. Varicella [2] Past Surgical History: Procedure Laterality Date BRONCHOSCOPY COLONOSCOPY CTA HEAD W AND WO CONTRAST 12/28/2023 CTA HEAD NECK CODE STROKE 12/28/[address] SCAN HEART TRANSPLANT 12/28/2023 INSERT / REPLACE / REMOVE PACEMAKER UT BIOPSY OF HEART LINING N/A 02/23/2024 Procedure: Endomyocardial biopsy; Surgeon: Luisa Yang MD; Location: [facility]; Service: Cardiology UT BIOPSY OF HEART LINING N/A 01/20/2024 Procedure: Endomyocardial biopsy; Surgeon: Zeina Maradiaga MD; Location: T [facility]; Service: Cardiology UT BIOPSY OF HEART LINING N/A 06/28/2024 Procedure: Endomyocardial biopsy; Surgeon: Luisa Yang MD; Location: [facility]; Service: Cardiology UT BIOPSY OF HEART LINING N/A 01/03/2025 Procedure: RHC/Endomyocardial biopsy; Surgeon: Luisa Yang MD; Location: [facility]; Service: Cardiology UT BRONCHOSCOPY,DIAGNOSTIC Bilateral 02/28/2025 Procedure: Bronchoscopy with dilation; Surgeon: Loren Hall MD; Location: [facility] [place]; Service: Pulmonology UT CATH PLACE/CORON ANGIO, IMG SUPER/INTERP,W LEFT HEART VENTRICULOGRAPHY N/A 01/03/2025 Procedure: Coronary angiography; Surgeon: Luisa Yang MD; Location: T [facility]; Service: Cardiology UT RIGHT HEART CATH O2 SATURATION & CARDIAC OUTPUT N/A 02/23/2024 Procedure: Right heart cath; Surgeon: Luisa Yang MD; Location: T [facility]; Service: Cardiology UT RIGHT HEART CATH O2 SATURATION & CARDIAC OUTPUT N/A 01/20/2024 Procedure: Right heart cath; Surgeon: Zeina Maradiaga MD; Location: T [facility]; Service:Cardiology UT RIGHT HEART CATH O2 SATURATION & CARDIAC OUTPUT N/A 06/28/2024 Procedure: Right heart cath; Surgeon: Luisa Yang MD; Location: T [facility]; Service: Cardiology [3] Social History Tobacco Use Smoking status: Never Passive exposure: Never Smokeless tobacco: Never Vaping Use Vaping status: Never Used Substance Use Topics Alcohol use: Never Drug use: Never [4] Family History Problem Relation Name Age of Onset Cancer Mother Lillie Avila Bender Diabetes Mother Lillie Avila Bender Cancer Father Dar Avila Alfaro Diabetes Father Dar Avila Alfaro Hypertension Father Dar Avila Alfaro Diabetes Brother Emmanuel Avila Avila Diabetes Sister Mar??a Stephanie Avila documented in this encounter Plan of Treatment Upcoming Encounters Date Type Department Care Team (Late st Contact Info) Description 05/15/2025 1:00 PM EST Office Visit [facility] Dermatology [address] [place] [address] Nelida Ayala MD [address] [place] [address] 06/22/2025 10:00 AM EDT Appointment [facility] [address] [facility] [address] [place] [phone] 06/22/2025 11:30 AM EDT Follow-Up [facility] Cardiac Subspecialty [address] [facility] [address] [place] [phone] Sharon Savage, JOSSY [address] [place] [phone] 07/06/2025 1:00 PM EDT Office Visit [facility] Lung Nodule [address] [facility] [address] [place] [address] Alfred Mckeon MD [address] [place] [address] 07/06/2025 1:30 PM EDT Office Visit [facility] Lung Nodule [address] [facility] [address] [place] [address] Yoav Portillo Lung Nod Pul 07/12/2025 10:30 AM EDT Appointment [facility] Pulmonary Function Lab [address] [facility] 5th Floor [address] [place] [address] 07/12/2025 11:30 AM EDT Office Visit [facility] Pulmonary [address] [facility] [address] [facility] [address] [place] [phone] Daysi Fink MD [address] [facility] [address] [place] [phone] Pending Results Name Type Priority Associated Diagnoses [...] * RBC Morphology (03/20/2025 1:58 PM EST) Pathologist [facility] Slide Review [facility] 1 Comment: RBC Morphology See Indices A REFERENCE RANGE: Normal, Not Performed Toxic Granulation Present (none) A 03/20/2025 1:58 PM EST 03/20/2025 Narrative [facility] - 03/20/2025 4:15 PM EST Performed at: [address] [place] [id number] Transit Bus Operator: Jim Henning [facility], Phone: [phone] us Charlie Barry MD LAB BLOOD ORDERABLES Final Res ult Performing Organization Address [facility] Co de Phone Number [facility] [address] [place] [address], [facility] 1 * (ABNORMAL) CMV Quant DNA, RT-PCR, BLOOD (03/20/2025 1:58 PM EST) Pathologist [facility] CMV Qn DNA PCR <30(H) Not Detected IU/mL [facility] 1 Comment: DETECTED The presence of CMV DNA is detected using the Cotaes Alinity m CMV DNA assay but the [...] - 03/21/2025 1:15 PM EST Performed at: [address] [place] [id number] Transit Bus Operator: Jim Henning [facility], Phone: [phone] us Charlie Barry MD LAB BLOOD ORDERABLES Final Res ult Performing Organization Address City/[facility]/ZIP Co de Phone Number [facility] [address] [place] [address], [facility] 1 * Cystatin C with eGFR (03/20/2025 1:58 PM EST) Cystatin C 1.08 0.72 - 1.16 mg/L [facility] 1 eGFRcys 68 >59 mL/min/1.73 [facility] 1 Blood Venous blood specimen / Unknown 03/20/2025 1:58 PM EST 03/20/2025 Narrative [facility] - 03/21/2025 6:45 AM EST Performed at: - [facility] [id number] Transit Bus Operator: Iram Zambrano MD, Phone: [phone] Charlie Barry MD LAB BLOOD ORDERABLES Final Res ult [facility] [address] [place] [address], [facility] 1 * Tacrolimus level (03/20/2025 1:58 PM EST) Tacrolimus, LC-MS/MS 5.9 3.0 - 20.0 ng/mL [facility] 1 Comment: Performed by LC-MS/MS. Reference intervals are based on trough collection. Optimal therapeutic ranges depend on time post-transplant, dosing regimen, organ type, and concomitant immunosuppression therapy. Results should be interpreted in conjunction with physical signs/symptoms of rejection/toxicity. This test was developed and its performance characteristics determined by [facility]. It has not been cleared or [...] [facility] - 03/21/2025 12:15 PM EST Test(s) [id number] (FK506), Blood was developed and its performance characteristics determined by [facility]. It has not been cleared or approved by the Food and Drug Administration. Performed at: [address] [place] [id number] Transit Bus Operator: Jim Henning [facility], Phone: [phone] us Charlie Barry MD LAB BLOOD ORDERABLES Final Res ult Performing Organization Address [facility] Co de Phone Number [facility] [address] [place] [address], [facility] 1 * Hepatic function panel (03/20/2025 1:58 PM EST) Bilirubin, Direct 0.1 0.0 - 0.5 mg/dL [facility] 1 Blood Venous blood specimen / Unknown 03/20/2025 1:58 PM EST 03/20/2025 Narrative [facility] - 03/20/2025 4:15 PM EST Performed at: [address] [place] [id number] Transit Bus Operator: Jim Henning [facility], Phone: [phone] us Charlie Barry MD LAB BLOOD ORDERABLES Final Res ult Performing Organization Address [facility] de Phone Number [facility] [address] [place] [address], [facility] 1 * Uric Acid (03/20/2025 1:58 PM EST) Uric Acid 4.9 2.6 - 8.0 mg/dL [facility] 1 Comment: Although the reference interval for men extends up to 8.0 mg/dL, patients with gout may benefit from uric acid levels <6.0 mg/dL. Blood Venous blood specimen / Unknown 03/20/2025 1:58 PM EST 03/20/2025 Narrative [facility] - 03/20/2025 4:15 PM EST Performed at: [address] [place] [id number] Transit Bus Operator: Jim Henning [facility], Phone: [phone] us Charlie Barry MD LAB BLOOD ORDERABLES Final Res ult Performing Organization Address City/[facility]/ZIP Co de Phone Number [facility] [address] [place] [address], [facility] 1 * Lipid panel (03/20/2025 1:58 [...] - 03/21/2025 6:15 AM EST Performed at: - [facility] [id number] Transit Bus Operator: Iram Zambrano MD, Phone: [phone] Charlie Barry MD LAB BLOOD ORDERABLES Final Res ult Performing Organization Address [facility] Co de Phone Number [facility] [address] [place] [address], [facility] 1 * (ABNORMAL) CK (aka CPK) (03/20/2025 1:58 PM EST) Pathologist [facility] CK Total 27(L) 41 - 331 U/L [facility] 1 Blood Venous blood specimen / Unknown 03/20/2025 1:58 PM EST 03/20/2025 Narrative [facility] - 03/21/2025 7:45 AM EST Performed at: 01 - [facility] [address] [id number] Transit Bus Operator: Iram Zambrano MD, Phone: [phone] Charlie Barry MD LAB BLOOD ORDERABLES Final Res ult Performing Organization Address City/[facility]/ZIP Co de Phone Number [facility] [address] [place] [address], [facility] 1 * (ABNORMAL) Lactate dehydrogenase (03/20/2025 1:58 PM EST) LDH 263(H) 110 - 250 IU/L [facility] 1 Blood Venous blood specimen / Unknown 03/20/2025 1:58 PM EST 03/20/2025 Narrative [facility] - 03/20/2025 4:15 PM EST Performed at: [address] [place] [address] Transit Bus Operator: Jim Henning [facility], Phone: [phone] Charlie Barry MD LAB BLOOD ORDERABLES Final Res ult Performing Organization Address [facility] Co de Phone Number [facility] [address] [place] [address], [facility] 1 * Phosphorus (03/20/2025 1:58 PM EST) Phosphorus 2.7 2.4 - 4.9 mg/dL [facility] 1 Blood Venous blood specimen / Unknown 03/20/2025 1:58 PM EST 03/20/2025 Narrative [facility] - 03/20/2025 4:15 PM EST Performed at: [address] [place] [id number] Transit Bus Operator: Jim Henning [facility], Phone: [phone] Charlie Barry MD LAB BLOOD ORDERABLES Final Res ult Performing Organization Address City/[facility]/ZIP Co de Phone Number [facility] [address] [place] [address], [facility] 1 * Magnesium (03/20/2025 1:58 PM EST) Magnesium 1.8 1.6 - 2.6 mg/dL [facility] 1 Blood Venous blood specimen / Unknown 03/20/2025 1:58 PM EST 03/20/2025 Narrative [facility] - 03/20/2025 4:15 PM EST Performed at: [address] [place] [address] [place] [id number] Transit Bus Operator: Jim Henning [facility], Phone: [phone] us Charlie Barry MD LAB BLOOD ORDERABLES Final Res ult Performing Organization Address City/[facility]/ZIP Co de Phone Number [facility] [address] [place] [address], [facility] 1 * Comprehensive metabolic panel (03/20/2025 1:58 PM EST) [facility] Glucose 138 70 - 139 mg/dL [facility] [...] - 03/20/2025 4:15 PM EST Performed at: [address] [place] [address] [id number] Transit Bus Operator: Jim Henning [facility], Phone: [phone] Charlie Barry MD LAB BLOOD ORDERABLES Final Res ult [facility] [address] [place] [address], [facility] 1 * (ABNORMAL) CBC and differential [...] 400 x10E3/uL [facility] 1 Comment:MPV 10.2 fL 9.1-12. 4 Neutrophils 70.3 % [facility] 1 Lymphs 10.2 [...] 03/20/2025 4:15 PM EST Performed at: - [place] [address] [address], [place], [place] [id number] Transit Bus Operator: Jim Henning [facility], Phone: [phone] us Charlie Barry MD LAB BLOOD ORDERABLES Final Res ult Performing Organization Address City/State/[facility] Co de Phone Number [facility] [address] [place] [address], [facility] 1 documented in this encounter Visit Diagnoses Diagnosis Heart transplant recipient- Primary Mixed hyperlipidemia Immunosuppressed status Cytomegalovirus infection, unspecified cytomegaloviral infection type Tracheal stenosis Other diseases of trachea and bronchus Sarcoidosis History of seizure Cytomegalovirus infection, unspecified cytomegaloviral infection type documented in this encounter Additional Health Concerns Active Problems Noted Date Diagnosed Date Autogenerated Problem 03/01/2025 documented as of this encounter Care Teams Primary Therapist Relationship Specialty Start Date End Date Name, MD Yoandy [address] [place] [id number] PCP - General Litigation Paralegal 11/12/23 Glenn Herman MD [address] [place] [address] Referring Physician Cardiology 11/12/23 Edward Handley CPhT Software Sales Manager Pharmacy 12/31/23 Jennie Michelle, PharmD [address] [place] [address] Pharmacist Pharmacy 01/27/24 Juan Hutchinson MD [address] [place] [address] Attending Physician Cardiology 12/19/24 Charlie Barry MD [address] [place] [address] Consulting Physician Advanced Heart Failure and Transplant Cardiology 03/20/25 documented as of this encounter
--- NOTE | 2025-03-23 11:11 | A.OFFVIS_ITS ---
Vital Signs 03/23/25 11:11 Height 5 ft 7 in Intake Visit Reasons: 9 week follow up Intake Note: Matthew is a 69 year old male who presents to the office today for a 9 week follow up for routine diabetic nail care. At last visit nails were sent to pathology and in chart for review. Pt states everything is going well and his sugars currently is at 216. Patient reports that his left 2nd toe nail is coming off. Customer Care Agent Required: Yes Customer Care Agent Services: Customer Care Agent Present Customer Care Agent Name: [id number] Allergies lisinopril Allergy (Mild, Verified 03/23/25 11:12) Swelling HPI Comments Details: The patient is a 69 year old male presenting for routine foot care and management of onychomycosis. Patient states he has been using ciclopirox. Patient states his blood glucose has been well managed with insulin. Patient states he experiences discomfort to the toes due to thickened and elongated toenails. He denies any new pedal injuries. He denies any other pedal concerns. Patient was accompanied by a family member. [facility] Medical History (Updated 01/19/25 @ 10:53 by Tamiko Ceballos DPM) Varicose veins of both lower extremities Tinea unguium Nail disorder Nail dystrophy Diabetic neuropathy Diabetes Pacemaker Surgical History Hx of heart transplant History of cardiac catheterization (~10/2021) History of cataract surgery Family History Father Diabetes Heart problem Brother Heart attack Social History Alcohol intake: never Patient Tobacco Use Status: Never used Tobacco Review of Systems Const Details: - Dermatological: Reports thickened, elongated, dystrophic, and discolored toenails x10. All systems reviewed & are unremarkable except as noted in HPI and below Physical Exam Extrem Other: Bilateral lower extremity focused physical exam: Derm: Toenails noted to be dystrophic, discolored, and elongated with subungual debris x10. No open lesions abrasions or wounds noted. No hyperkeratotic lesions noted. No ecchymosis or discoloration noted. No clinical signs of infection. Skin supple and turgor within normal limits for age. Vascular: DP/PT pulses mildly palpable. Capillary refill time less than 3 seconds. Temperature gradient warm to warm. Minimal edema noted to the feet bilaterally. Mild varicosities noted. Pedal hair absent. Neuro: Protective sensation is grossly intact to light touch. Protective sensation slightly diminished to monofilament testing. MSK: Discomfort noted to the forefoot due to elongated and thickened toenails. Range of motion of the forefoot hindfoot and ankles within normal limits. No crepitus or fluctuance noted. Shuffling gait noted, nonantalgic and unassisted. No other gross abnormalities noted. Class B and C findings noted. Office Procedures AMB Debridement/Avulsion Podia Details: Debrided toenails x10 using sterile nail nippers and Dremel without incidents. 86231-Ygbhsnjwnny of Nail 6+ Procedure code (CPT) selection complete Diabetic Foot Exam G9226 - Diabetic Foot Exam (45443 - debridement of toenails x10) Results Reviewed Results Reviewed: Laboratory Tests 12/30/24 03/22/25 16:03 10:50 Fasting Glucose 116 H Hgb A1c (Clinic) 6.5 H Laboratory Tests 01/27/25 12:38 AST 10 ALT 15 Bilateral toenails fungal culture: Trichophyton species noted. Bilateral toenails pathology: Positive for fungal hyphae and buds. Assessment & Plan Assessment & Plan (1) Nail dystrophy: Code(s): L60.3 - Nail dystrophy Category: Medical (2) Nail disorder: Code(s): L60.9 - Nail disorder, unspecified Category: Medical (3) Tinea unguium: Code(s): B35.1 - Tinea unguium Category: Medical (4) Type 2 diabetes mellitus with unspecified complications: Code(s): E11.8 - Type 2 diabetes mellitus with unspecified complications Category: Medical (5) Diabetic neuropathy: Code(s): E11.40 - Type 2 diabetes mellitus with diabetic neuropathy, unspecified Category: Medical (6) Varicose veins of both lower extremities: Code(s): I83.93 - Asymptomatic varicose veins of bilateral lower extremities Category: Medical Plan Patient was informed and verbally consented to the use of an ambient scribe for clinic note documentation during this visit. We discussed the treatment timeline, noting that the topical ukrainian typically takes about a year for the nail to grow out completely, whereas oral medication can work in about four months. I informed them that since his liver function labs were good, we could consider oral medication. I verified that the new oral antifungal does not interact with his other medications, including those for his heart transplant, before sending the prescription. We discussed protective measures, such as ensuring his shoes are not too tight and using a bandage if needed, to prevent injury. A follow-up appointment was scheduled for nine weeks for continued routine nail care. - Debrided toenails x10 - Refilled ciclopirox. - Prescribed terbinafine to be taken daily. - Ordered new labs to be performed prior to next visit. - Advised patient to wear supportive shoe gear, avoid tight-fitting shoes, and avoid barefoot walking. - Advised patient to monitor his feet daily. - Advised patient to continue diabetic management as per PCP. RTC in 9 weeks. Orders: Orders Complete Blood Count Auto Diff 03/23/25 L60.3 - Nail dystrophy, L60.9 - Nail disorder, unspecified, B35.1 - Tinea unguium, E11.8 - Type 2 diabetes mellitus with unspecified complications Comprehensive Met. Panel 03/23/25 E11.8 - Type 2 diabetes mellitus with unspecified complications, L60.3 - Nail dystrophy, L60.9 - Nail disorder, unspecified, B35.1 - Tinea unguium Hemoglobin A1c 03/23/25 E11.8 - Type 2 diabetes mellitus with unspecified complications, L60.3 - Nail dystrophy, L60.9 - Nail disorder, unspecified, B35.1 - Tinea unguium Medications: New terbinafine HCl 250 mg PO DAILY 30 tabs 0RF L60.3 - Nail dystrophy, L60.9 - Nail disorder, unspecified, B35.1 - Tinea unguium Refilled ciclopirox 8% 1 appl topical BEDTIME 6.6 mL 1RF Onychomycosis 4 weeks E11.8 - Type 2 diabetes mellitus with unspecified complications, E11.40 - Type 2 diabetes mellitus with diabetic neuropathy, unspecified, L60.3 - Nail dystrophy, L60.9 - Nail disorder, unspecified, B35.1 - Tinea unguium Coding Level of Care Code Est Pt Level 4 (04376) Diagnoses Nail dystrophy L60.3 Nail disorder L60.9 Tinea unguium B35.1 Type 2 diabetes mellitus with unspecified complications E11.8 Diabetic neuropathy E11.40 Varicose veins of both lower extremities I83.93 CPT Codes Skin Debridement - CPT: 29501-Mzloxjnfvtx of Nail 6+ ([id number]) Diabetic Foot Exam - CPT: G9226 - Diabetic Foot Exam ([id number]) Time Spent (min) 36 Comment 6 mins for procedure
--- OUTSIDE RECORDS SUMMARY | 2025-03-23 14:26 | XMS_ITS | Encounter Summary ---
Author Organization [facility] Address 800 [facility] [address] [place] [address] Care Team Providers Care Certified Fraud Examiner Name Role Phone Glenn Herman MD Unavailable Yoandy Tillman MD Primary Care Provider [phone] Edward Handley [facility] Unavailable Unavailable Jennie Michelle PharmD Unavailable [phone] Juan Hutchinson MD Unavailable [phone] Charlie Barry MD Unavailable [phone] Encounter Details Date Type Department Care Team (Late st Contact Info) Description 03/23/2025 Orders Only [facility] Cardiac Subspecialty 860 [facility] 6th [place] [address] Charlie Barry MD 800 [place], [place] [phone] Heart transplant recipient Social History Tobacco Use [...] Description 05/15/2025 1:00 PM EST Office Visit [facility] Dermatology [address] [place] [address] Nelida Ayala MD 800 [place] [address] 06/22/2025 10:00 AM EDT Appointment [facility] Cardiac Echo 800 [facility] [address] [place] [address] 06/22/2025 11:30 AM EDT Follow-Up [facility] Cardiac Subspecialty [address] [facility] 6th [place] [address] Sharon Savage NP [address] [place] [address] 07/06/2025 1:00 PM EDT Office Visit [facility] Lung Nodule 800 [facility] 4th [place] [address] Alfred Mckeon MD 0 [place] [address] 07/06/2025 1:30 PM EDT Office Visit [facility] Lung Nodule [address] [place], [place] [address] 4th [place] [address] Yoav Portillo Lung Nod Pul 07/12/2025 10:30 AM EDT Appointment [facility] Pulmonary Function Lab 800 [facility] [address] [facility] 5th Floor Room [address] [place] [address] 07/12/2025 11:30 AM EDT Office Visit [facility]monary 260 [facility] 3rd [place] [address] Daysi Fink MD 800 [facility] [address] [place] [address] Scheduled Orders Name Type Priority Associated Diagnoses Orde r Schedule Comprehensive metabolic panel Lab Routine Heart transplant recipient Every 2 weeks for 13 Occurrences starting 03/23/2025 until 09/21/2025 Tacrolimus level Lab Routine Heart transplant recipient Every 2 weeks for 13 Occurrences starting 03/23/2025 until 09/21/2025 CBC and differential Lab Routine Heart transplant recipient Every 2 weeks for 13 Occurrences starting 03/23/2025 until 09/21/2025 documented as of this encounter Goals Goal Patient Goal Type Associated Problems Recent Progress Patient-Stated? Author Autogenerat ed Goal Care Plan Autogenerated Problem No Cindy Aj documented as of this encounter Visit Diagnoses Diagnosis Heart transplant recipient Cytomegalovirus infection, unspecified cytomegaloviral infection type documented in this encounter Additional Health Concerns Active Problems Noted Date Diagnosed Date Autogenerated Problem 03/01/2025 documented as of this encounter Care Teams Certified Fraud Examiner Relationship Specialty Start Date End Date Name, MD Yoandy [address] [place] [address] PCP - General Ion Exchange Operator 11/12/23 Glenn Herman MD [address] [place] [address] Referring Physician Cardiology 11/12/23 Edward Handley, Juan Molded Goods Operator Pharmacy 12/31/23 Jennie Michelle, PharmD [address] [place] [phone] Pharmacist Pharmacy 01/27/24 Juan Hutchinson MD [address] [place] [address] Attending Physician Cardiology 12/19/24 Charlie Barry MD [address] [place] [address] Consulting Physician Advanced Heart Failure and Transplant Cardiology 03/20/25 documented as of this encounter
--- OUTSIDE RECORDS SUMMARY | 2025-03-23 14:26 | XMS_ITS | Clinical Summary ---
Author Organization [facility] Address 75 [facility] 7t [place] [address] Care Team Providers Care Personal Counselor Name Role Phone Name, Yoandy LUGO Primary Care Provider [phone] Allergies Active Allergy Reactions Criticality Noted Date [...] bedtime. 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[facility]) 06/30/2024 Chronic cough 06/28/2024 Fever 06/28/2024 Conjunctivitis of right eye 05/04/2024 Immunosuppressed status 05/04/2024 Night sweats 05/04/2024 Preventative health care 05/04/2024 Disease due to severe acute respiratory syndrome coronavirus 2 (SARS-CoV-2) 04/19/2024 Overview (07/27/2024): Problem added by Discern Expert Sensorineural hearing loss (SNHL) of both ears 0 04/15/2024 Observed seizure-like activity ([facility]) 024 Heart transplant recipient ([facility]) 02/05/2024 Overview (02/05/2024): #s/p OHT 12/28/23 #s/p impella explant #s/p ICD explant #hx NICM Seizure disorder ([facility]) 02/05/2024 Immunocompromised 02/05/2024 Sarcoidosis 01/27/2024 Alteration in [...] 's report Asked patient to call his Financial Investigator regarding his increased weight/swelling for further recommendations. Dysphagia 02/08/2023 Positive colorectal cancer screening using Colog uard test 02/04/2023 Overview (11/03/2023): Negative Colonoscopy 06/2023: urgical Pathology Exam - Order: [id number] Component 4 mo ago Case Report Surgicals Case: [id number] Authorizing Provider: Donny Encarnacion Collected: 2023 0843 MD Eugene Ordering Location: [facility] GI Lab Received: 2023 1011 [...] IHC, or [place] [address]. 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 Coronary artery disease invo lving akutan coronary artery of akutan heart without angina pectoris 11/14/2022 Overview (11/02/2023): Last Assessment & Plan: - nonobstructive disease - continue medical therapy with aspirin, statin, BB - denies angina Stridor 11/13/2022 Overview (11/02/2023): Last Assessment & Plan: Improved after last dilation in April 2023. Mild stridor noted today in clinic Discussed with his primary ged preparation teacher Dr. Sanches and will work to get [...] upgraded from dual-chamber to biventricular device at [facility] 03/2022. Follows at [facility] cardi Systolic dysfunction 03/13/2022 History of bradycardia 03/13/2022 Family history of prostate cancer 03/13/2022 Complete heart block (CMS/HCC) 04/06/2020 Overview (11/02/2023): Added automatically from request for surgery [id number] Last Assessment & Plan: History of biventricular pacemaker that was upgraded to ENGINEERING PROGRAM ANALYST defibrillator in September. Device interrogated today [...] starting statin -No need for ischemic evaluation FDC (current) use of o ral hypoglycemic drugs 04/06/2022 11/03/2023 Other specified diseases of upper respiratory tract 04/06/2022 11/03/2023 Presence of automatic (impla ntable) cardiac defibrillator 04/06/2022 02/05/2024 Cardiac pacemaker in situ 03/13/2022 Uncontrolled type 2 diabetes mellitus with hyperglycemia 04/06/2020 02/05/2024 Overview (11/02/2023): Last Assessment & Plan: Encounters Date Type Department Care Team Description 02/23/2025 Telephone [facility] MEDICINE [address] [place] [phone] Name, MD Yoandy Durable Medical Equipment (Glucerna) 02/20/2025 10:00 AM EST Office Visit [facility] MEDICINE [address] [place] [address] Name, MD Yoandy Type 2 diabetes mellitus with other circulatory complication, without long-term current use of insulin (HCC) (Primary Dx); Poor appetite; Weight loss; Food insecurity; Encounter for vaccination; Encounter for immunization; Heart transplant recipient (CMS/HCC) (HCC); History of ND (myocardial infarction) 02/20/2025 Patient Outreach [facility] [address] [place] [address] Name, MD Yoandy Care Coordination (CHW outreach [...] Description 05/23/2025 9:00 AM EST Office Visit [facility] [address] [place] [address] Name, MD Yoandy [address] [place] [address] Health Maintenance Due Date Last Done Comments [...] Procedure Name Priority Date/Time Associated Diagnosis Comments C-PEPTIDE Routine 03/22/2025 10:50 AM EST GLUCOSE Routine 03/22/2025 10:50 AM EST POCT GLUCOSE Routine 02/20/2025 9:52 AM EST Type 2 diabetes mellitus with other circulatory complication, without long-term current use of insulin ([facility]) GLUCOSE, WHOLE BLOOD Routine 01/27/2025 3:15 PM EDT GROSS AND MICROSCOPIC LEVEL 3 Routine 01/19/2025 10:42 AM EDT GLUCOSE, WHOLE BLOOD Routine 12/30/2024 3:47 PM EDT POCT GLYCATED HEMOGLOBIN, TOTAL Routine 07/27/2024 10:59 AM EDT Type 2 diabetes mellitus with other circulatory complication, without long-term current use of insulin ([facility]) ALBUMIN, RANDOM URINE W/CREATININE Routine 04/14/2024 11:04 AM EST Type 2 diabetes mellitus with other circulatory complication, without long-term current use of insulin ([facility]) LIPID PANEL, STANDARD Routine 06/27/2022 9:53 AM EDT from Last 3 Months or Most Recently Relevant to Health Maintenance Results * C-Peptide (03/22/2025 10:50 AM EST) [facility] C-Peptide 0.80 0.80 - 3.85 ng/mL [facility] Comment:THIS TEST WAS PERFOR MED AT:[employer] [address] [phone] STINSON MD 03/22/2025 10:5 0 AM EST 03/22/2025 10:50 AM EST us Generic External Data Provider LAB BLOOD ORDERAB LES Final Result [facility] [address] [place] [phone] * (ABNORMAL) Glucose (03/22/2025 10:50 AM EST) Pathologist [facility] Glucose Fasting 116(H) 60 - 99 mg/dL [facility] Comment:A fasting glucose fr om 100-125 mg/dl is considered impaired(pre-diabetes). 03/22/2025 10:5 0 AM EST 03/22/2025 10:50 AM EST Generic External Data Provider LAB BLOOD ORDERAB LES Final Result Performing Organization Address City/[facility]/ZIP Co de Phone Number [facility] [address] [place] [phone] [phone] * (ABNORMAL) POCT Glucose (02/20/2025 9:52 [...] Whole Blood 106 60 - 115 mg/dL [facility] Comment:METER #: [id number] 0Testing performed in the Endocrinology Department [address] , [address], [facility]. 01/27/2025 3:15 PM EDT 01/27/2025 3:23 PM EDT us Generic External Data Provider LAB BLOOD ORDERAB LES Final Result Performing Organization Address [facility] Co de Phone Number [facility] [address] [place] [phone] * Gross and Microscopic Level 3 (01/19/2025 10:42 AM EDT) 01/19/2025 10:4 2 AM EDT 01/20/2025 9:10 AM EDT [facility] - 01/23/2025 2:18 PM EDT ----- ------- Name: Matthew Toro Age/Sex: 69/M : 1955 Unit#: [id number] Attend Dr: Tamiko Ceballos DPAnderson Re01/19/25 Status: DEP REF Location: [facility] Disch: ----- ------- SPEC : [id number] RECD: 01/20/25 STATUS: JOAQUINYoav HUGHESAdonay NUM: [id number] TIM: 01/19/251042 [facility] DR: Tamiko Ceballos DPAnderson ENTERED: 01/20/25 [...] chloride and totally submitted in cassette A1. (RJAnastasiia) Special studies ordered and performed: PAS-F on A1. IHC S/NG Disclaimer NOTE: Unless otherwise stated, all tissue is formalin-fixed and paraffin-embedded. Some or all of the immunohistochemical tests reported herein may have been developed and their performance characteristics determined by [facility]. They have not been cleared or approved by the U.S. Food and Drug Administration (FDA). However, the FDA has determined that such clearance or approval is not necessary. This laboratory is certified under the Clinical Laboratory Improvement Amendments of 1988 (CLIA) as qualified to perform high complexity clinical laboratory testing. Copies To: Yoandy Tillman MD [address] [address] CONTINUED ON NEXT PAGE ----- ------- Name: Matthew Toro Age/Sex: 69/M : 1955 Unit#: [id number] Attend Dr: Tamiko Ceballos DPM Re01/19/25 Status: DEP REF Location: [facility] Disch: ----- ------- SPEC : [id number] RECD: 01/20/25 STATUS: DON PHAN NUM: [id number] TIM: 01/19/251042 [facility] DR: Tamiko Ceballos DPAnderson ENTERED: 01/20/25 SP TYPE: Surgical OTHR DR: Yoandy Tillman MD ORDERED: Gross Micro L3 Copies To: (Continued) Tamiko Ceballos [facility] Pod[facility] [address] [address] [email or web address] ----- ------- Signed (signature on file) Shruti Ravenswood 01/23/25 1418 ----- ------- END OF REPORT Generic External Data Provider LAB CYTOLOGY ORDE RABLES Final Result [facility] [address] [place] [phone] [phone] * POCT HGB A1C (07/27/2024 10:59 AM EDT) Pathologist [facility] Hemoglobin A1C 5.7 4.0 - 6.0 % QC Media Lot # [id number] Lot# Expiration Date 42 Blood 07/27/2024 10:5 9 AM EDT Yoandy Name POINT OF CARE TEST ENTER/EDIT OR DERABLES Final Result * Albumin, Random Urine W/Creatinine (04/14/2024 11:04 AM EST) Pathologist [facility] Creatinine, Urine 109.08 mg/dL [facility] Microalbumin Urine 6.0 mg/L [facility] Microalbum Creatinine Ratio Ur 5.5 <30 ug/mg cr [facility] Comment:Albumin/Creatinine R atio Reference Ranges: Normal: < 30 ug/mg creatinine Microalbuminuria: 30 - 300 ug/mg creatinineClinical Albuminuria: > 300 ug/mg creatinine Urine (Urine, Random) 04/14/2024 11:04 AM EST 04/14/2024 1:04 PM EST Yoandy Tillman MD LAB URINE ORDERABLES Final Resul t [facility] [address] [place] [phone] * Lipid Panel, Standard (06/27/2022 9:53 AM EDT) Triglycerides 84 mg/dL [facility] Comment:Desirable Triglyceri de: less than 150 mg/dLBorderline High Triglyceride 150-199 mg/dLHigh Triglyceride: 200-499 mg/dLVery High Triglyceride: greater than or equal to 5OO mg/dL Cholesterol 154 mg/dL [facility] Comment:Desirable Cholestero l: less than 200 mg/dLBorderline High Cholesterol: 200-239 mg/dLHigh Cholesterol: greater than 239 mg/dL LDL Cholesterol Calculated 104 mg/dl [facility] Comment:Desirable LDL: less than 100 mg/dLNear Optimal/Above Optimal LDL: 110- 129 mg/dLBorderline High LDL: 130-159 mg/dLHigh LDL: 160-189 mg/dLVery High LDL: greater than or equal to 190 mg/dL HDL Cholesterol 34 mg/dL [facility] Comment:Desirable HDL: great er than 40 mg/dL Note: This HDL assay may give artificially low results in patients with liver disease. 06/27/2022 9:53 AM EDT 06/27/2022 9:53 AM EDT us [facility] External Provider LAB BLO OD ORDERABLES Final Result [facility] [address] [place] [address] [phone] from Last 3 Months or Most Recently Relevant to Health Maintenance Additional Health Concerns Active Problems Noted Date Diagnosed Date Help patients manage their type 2 diabetes 02/16 Patient has chronic kidney disease 02/16/2025 Patient has chronic kidney disease 02/20/2025 Patient has chronic kidney disease 02/23/2025 Insurance MEDICARE [facility] STANDARD [facility] MEDEX MEDICARE SUPPLEMENT [address] [place] [address] Care Teams Personal Counselor Relationship Specialty Start Date End Date Name, MD Yoandy [address] [place] [phone] PCP - General Internal Medicine 10/19/23 [facility] 01/19/24
--- OUTSIDE RECORDS SUMMARY | 2025-03-23 14:27 | XMS_ITS ---
Author Organization [facility] Address 800 [facility], [address] [place] [address] Care Team Providers Care National Expansion Recruiter Name Role Phone Glenn Herman MD Unavailable [phone] Yoandy Tillman MD Primary Care Provider Edward Handley [facility] [place] [facility] Unavailable Unavailable Jennie Michelle PharmD Unavailable [phone] Juan Hutchinson MD Unavailable [phone] Charlie Barry MD Unavailable [phone] RxSp Transplant Status:Enrolled (Active) Start date:12/31/2023 [...] Name Relationship Phone Edward Handley CPhT(Responsible Staff) Dow[employer] Pin Man Jnenie Michelle PharmD Pharmacist [phone] Continued Care and Services Coordination
--- OUTSIDE RECORDS SUMMARY | 2025-03-23 14:27 | XMS_ITS | Encounter Summary ---
Author Organization [facility] Address 800 [facility] [address] [place] [address] Care Team Providers Care Appellate Conferee Name Role Phone Glenn Herman MD Unavailable [phone] Yoandy Tillman MD Primary Care Provider Edward Handley [facility] Unavailable Unavailable Jnenie Michelle PharmD Unavailable [phone] Juan Hutchinson MD Unavailable [phone] Charlie Barry MD Unavailable [phone] Reason for Visit * Reason Comments Med Change Request Encounter Details Date Type Department Care Team (Late st Contact Info) Description 03/17/2024 Refill [facility] Cardiac Subspecialty [address] [facility] 6th [place] [address] Charlie Barry MD [address] [place], [place] [phone] 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) Social History [...] - 03/17/2024 4:02 PM EST Filled at [facility] documented in this encounter Plan of Treatment Upcoming Encounters Date Type Department Care Team (Late st Contact Info) Description 05/15/2025 1:00 PM EST Office Visit [facility] Dermatology [address] [place] [address] Nelida Ayala MD [address] [place] [address] 06/22/2025 10:00 AM EDT Appointment [facility] Cardiac Echo [address] [facility] [place] [address] [place] [phone] 06/22/2025 11:30 AM EDT Follow-Up [facility] Cardiac Subspecialty [address] [facility] 6th [place] [address] Sharon Savage NP [address] [place] [phone] 07/06/2025 1:00 PM EDT Office Visit [facility] Lung Nodule 800 [facility] 4th [place] [address] Alfred Mckeon MD [address] [place] [address] 07/06/2025 1:30 PM EDT Office Visit [facility] Lung Nodule 800 [facility] 4th [place] [address] , Yoav Lung Nod Pul 07/12/2025 10:30 AM EDT Appointment [facility] Pulmonary Function Lab 800 [facility] [address] [facility] 5th Floor Room [address] [place] [address] 07/12/2025 11:30 AM EDT Office Visit [facility] 3rd [place] [address] Daysi Fink MD 800 [facility] [address] [place] [address] documented as of this encounter Visit Diagnoses Diagnosis Heart replaced by transplant Cytomegalovirus infection, unspecified cytomegaloviral infection type documented in this encounter Care Teams Appellate Conferee Relationship Specialty Start Date End Date Name, MD Yoandy [address] [place] [address] PCP - General Instrument Checker 11/12/23 Glenn Herman MD [address] [place] [address] Referring Physician Cardiology 11/12/23 Edward Handley, Juan Powerhouse Laborer Pharmacy 12/31/23 Jennie Michelle, PharmD [address] [place] [address] Pharmacist Pharmacy 01/27/24 Juan Hutchinson MD [address] [place] [address] [address] [place] [address] Attending Physician Cardiology 12/19/24 Charlie Barry MD [address] [place] [address] Consulting Physician Advanced Heart Failure and Transplant Cardiology 03/20/25 documented as of this encounter
--- OUTSIDE RECORDS SUMMARY | 2025-03-23 14:27 | XMS_ITS | Clinical Summary ---
Author Organization [facility] Address [address] [facility] [place] [address] Care Team Providers Care Events Manager Name Role Phone Glenn Herman MD Unavailable [phone] Yoandy Tillman MD Primary Care Provider [phone] Edward Handley [facility] Unavailable Unavailable Jennie Michelle PharmD Unavailable Juan Hutchinson MD Unavailable [phone] Charlie Barry MD Unavailable [phone] Allergies Active Allergy Reactions Criticality Noted [...] 's report Asked patient to call his Physical Therapy Aid regarding his increased weight/swelling for further recommendations. Last Assessment & Plan: reports he's up a few pounds from his baseline weight, worsening leg swelling over the last few days. Compliant with Torsemide - taking full dose per 's report Asked patient to call his Physical Therapy Aid regarding his increased weight/swelling for further recommendations. [...] Encounters Date Type Department Care Team Description 03/23/2025 Orders Only [facility] Cardiac Subspecialty [address] [facility] [address] [place] [address] Charlie Barry MD Heart transplant recipient 03/20/2025 12:00 PM EST Office Visit [facility] Cardiac Subspecialty [address] [address] Charlie Barry MD Heart transplant recipient (Primary Dx); Mixed hyperlipidemia; Immunosuppressed status; Cytomegalovirus infection, unspecified cytomegaloviral infection type; Tracheal stenosis; Sarcoidosis; History of seizure 03/20/2025 Travel 03/10/2025 Orders Only [facility] Pulmonary [address] [address] Radhames Espinoza MD Chronic cough (Primary Dx); 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 03/10/2025 Telephone [facility] Pulmonary [address] [phone] Daysi Fink MD RX request 03/08/2025 Refill [facility] Cardiology [address] [facility] [address] [place] [address] Dena Mitchell NP Heart transplant recipient 03/06/2025 Refill [facility] Cardiac Subspecialty [address] [address] Dena Mitchell NP Heart transplant recipient; Mixed hyperlipidemia 02/28/2025 9:45 AM EST Anesthesia Event [facility] OR [address] [place] [phone] Vonda Forte MD Pirozzi, Joseph, TAWANNA 02/28/2025 8:50 AM EST - 02/28/2025 10:20 AM EST Surgery [facility] OR [address] [place] [phone] Loren Hall MD Bronchoscopy with dilation [83698 (CPT )] 02/28/2025 6:48 AM EST - 02/28/2025 12:56 PM EST Hospital Encounter [facility] OR [address] [place] [phone] Loren Hall MD Cytomegalovirus infection, unspecified cytomegaloviral infection type Discharge Disposition: Home or self care 02/28/2025 Travel 02/22/2025 2:00 PM EST Office Visit [facility] Neurology 260 [place] [address] Percy Kapoor MD Focal epilepsy (Primary Dx) 02/22/2025 Travel 02/21/2025 2:00 PM EST Pre-Admission Testing [facility] Preadmit Testing [address] [place] [address] 02/09/2025 Telephone [facility] Infectious Disease [address] [address] Lena Cortes NP 02/08/2025 Refill [facility] Infectious Disease [address] [phone] Lena Cortes NP Cytomegalovirus (CMV) viremia 02/08/2025 Refill [facility] Cardiac Subspecialty [address] [phone] Dena Mitchell NP Heart transplant recipient 02/06/2025 1:00 PM EST Office Visit [facility] Dermatology 260 [place] [address] Nelida Ayala MD Eczema craquele (Primary Dx); Tinea cruris; Onychomycosis; Irritant contact dermatitis due to other agents; Sharp angioma; Immunosuppression 02/06/2025 Travel 02/02/2025 2:00 PM EDT Office Visit [facility] Lung Nodule [address] [phone] Loren Hall MD Tracheal stenosis following tracheostomy (Primary Dx); Heart transplant recipient; Immunosuppressed status 02/02/2025 1:30 PM EDT Office Visit [facility] Lung Nodule [address] [phone] Alfred Mckeon MD Tracheal stenosis (Primary Dx) 02/02/2025 Travel 01/24/2025 Telephone [facility] Infectious Disease [address] [address] Lena Cortes NP 01/18/2025 Telephone [facility] Infectious Disease [address] [address] Lena Cortes NP 01/10/2025 Refill [facility] Cardiology [address] [facility] [address] [place] [address] Pedro Kline MD Heart transplant recipient 01/03/2025 10:30 AM EDT - 01/03/2025 12:30 PM EDT Surgery [facility] Cardiac [facility] [address] [place] [address] Luisa Yang MD Coronary angiography [18385 (CPT )] 01/03/2025 10:17 AM EDT - 01/03/2025 4:56 PM EDT Hospital Encounter [facility] Cardiac [facility] [address] [place] [address] Luisa Yang MD Other cytomegaloviral diseases (Multi-HCC) (Primary Dx); Heart transplant recipient (Multi-HCC) Discharge Disposition: Home or self care 01/03/2025 Travel 01/02/2025 Orders Only [facility] Infectious Disease [address] [address] Lena Cortes NP 12/28/2024 11:30 AM EDT Office Visit [facility] Pulmonary [address] [phone] Daysi Fink MD Chronic cough (Primary Dx); Pulmonary sarcoidosis (Multi-HCC); 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); Cardiac sarcoidosis (HHS-HCC); Dyspnea and respiratory abnormality 12/28/2024 10:16 AM EDT - 12/28/2024 11:59 PM EDT Hospital Encounter [facility] Imaging [address] [place] [address] Cytomegalovirus infection, unspecified cytomegaloviral infection type (Multi-HCC); Tracheal stenosis; Pulmonary sarcoidosis (Multi-HCC) Discharge Disposition: Home or self care 12/28/2024 Travel 12/26/2024 Orders Only [facility] Infectious Disease [address] [place] [address] Lena Cortes, INSTRUMENT AND CONTROL SERVICE PERSON Cytomegalovirus (CMV) viremia (Multi-HCC) from Last 3 [...] Vaccine Formula 12+ (Deferred: Not available from coring machine operator - Per pharmacy vaccine is [...] Description 05/15/2025 1:00 PM EST Office Visit [facility] Dermatology 260 [place] [address] Nelida Ayala MD 800 [place] [address] 06/22/2025 10:00 AM EDT Appointment [facility] [address] [place] [phone] 06/22/2025 11:30 AM EDT Follow-Up [facility] Cardiac Subspecialty [address] [facility] [address] [place] [phone] Sharon Savage, JOSSY 800 [place] [phone] 07/06/2025 1:00 PM EDT Office Visit [facility] Lung Nodule [address] [facility] [address] [place] [phone] Alfred Mckeon MD [address] [place] [address] 07/06/2025 1:30 PM EDT Office Visit [facility] Lung Nodule [address] [facility] [address] [place] [phone] Yoav Portillo Lung Nod Pul 07/12/2025 10:30 AM EDT Appointment [facility] Pulmonary Function Lab 800 [facility] 5th Floor Room 511 [place] [phone] 07/12/2025 11:30 AM EDT Office Visit [facility] Pulmonary 260 [facility] [address] [facility] [address] [place] [address] Daysi Fink MD [address] [facility] [address] [place] [address] Health Maintenance Due Date Last Done Comments [...] Cindy Aj Medical Devices Implanted Type Area Computer Operations Supervisor Device Identifier Shelf Expiration Date Model / Serial / Lot Pin Chaser-D [employer] Icd-10/02/2022 Implanted:09/05 (Quantity not on file) IMPLEMENTATION CONSULTANT-D ICD Chest [employer] Graft [address] Str 10x30 - [id number] Implanted:Qty: 1 on 12/22/2023 at [facility] Graft Right: Axilla GETINGE/MAQUET CARDIOVASCULAR 09/03/2028 [id number] / [id number] / Impella- 024 Implanted:12/05 (Quantity not on [...] POCT GLUCOSE Routine 02/28/2025 11:45 AM EST MD AN ELECTIVE SUPRAGLOTTIC AIRWAY Routine 02/28/2025 10:00 AM EST MD BRONCHOSCOPY,DIAGNOSTI C 02/28/2025 9:35 AM EST Tracheal [...] with other specified complication, unspecified whether long term care phlebotomist insulin use (Multi-HCC) HCV RNA, QUANTITATIVE, PCR [...] - 03/21/2025 6:45 AM EST Performed at: 01 - [facility] [id number] Director Of Operations: Iram Zambrano MD, Phone: [phone] us Charlie Barry MD LAB BLOOD ORDERABLES Final Res ult [facility] [address] [place] [address], [facility] 1 * RBC Morphology (03/20/2025 1:58 PM EST) Slide Review [facility] 1 Comment: RBC Morphology See Indices A REFERENCE RANGE: Normal, Not Performed Toxic Granulation Present (none) A 03/20/2025 1:58 PM EST 03/20/2025 Narrative [facility] - 03/20/2025 4:15 PM EST Performed at: 01 - [place] [address] [address], [place], [place] [id number] Director Of Operations: Jim Henning [facility], Phone: [phone] us Charlie Barry MD LAB BLOOD ORDERABLES Final Res ult [facility] [address] [place] [address], [facility] 1 * Tacrolimus level (03/20/2025 1:58 PM EST) Only the most recent of2 resultswithin the time period is included. Tacrolimus, LC-MS/MS 5.9 3.0 - 20.0 ng/mL [facility] 1 Comment: Performed by LC-MS/MS. Reference intervals are based on trough collection. Optimal therapeutic ranges depend on time post-transplant, dosing regimen, organ type, and concomitant immunosuppression therapy. Results should be interpreted in conjunction with physical signs/symptoms of rejection/toxicity. This test was developed and its performance characteristics determined by [facility]. It has not been cleared or [...] [facility] - 03/21/2025 12:15 PM EST Test(s) 398806-Vajkviybps (FK506), Blood was developed and its performance characteristics determined by [facility]. It has not been cleared or approved by the Food and Drug Administration. Performed at: [address] [place] [address] 800 [facility] [address] [id number] Director Of Operations: Jim Henning [facility], Phone: [phone] us Charlie Barry MD LAB BLOOD ORDERABLES Final Res ult Performing Organization Address [facility] Co de Phone Number [facility] [address] [place] [address], [facility] 1 * (ABNORMAL) CMV Quant DNA, RT-PCR, BLOOD (03/20/2025 1:58 PM EST) Only the most recent of2 resultswithin the time period is included. [facility] CMV Qn DNA PCR <30(H) Not Detected [...] m CMV DNA assay, performed on the [employer] m instrument Blood Venous blood specimen / Unknown 03/20/2025 1:58 PM EST 03/20/2025 Narrative [facility] - 03/21/2025 1:15 PM EST Performed at: [address] [place] [address] [id number] Director Of Operations: Jim Henning [facility], Phone: [phone] us Charlie Barry MD LAB BLOOD ORDERABLES Final Res ult Performing Organization Address [facility] Co de Phone Number [facility] [address] [place] [address], [place] [facility] 1 * (ABNORMAL) CBC and differential (03/20/2025 1:58 PM EST) [facility] WBC 4.7 4.0 - 11.0 x10E3/uL [facility] [...] 03/20/2025 4:15 PM EST Performed at: - [address] [id number] Director Of Operations: Jim Henning [facility], Phone: [phone] us Charlie Barry MD LAB BLOOD ORDERABLES Final Res ult [facility] [address] [place] [address], [facility] 1 * Uric Acid (03/20/2025 1:58 PM EST) Uric Acid 4.9 2.6 - 8.0 mg/dL [facility] 1 Comment: Although the reference interval for men extends up to 8.0 mg/dL, patients with gout may benefit from uric acid levels <6.0 mg/dL. Blood Venous blood specimen / Unknown 03/20/2025 1:58 PM EST 03/20/2025 Narrative [facility] - 03/20/2025 4:15 PM EST Performed at: [address] [place], [place] [id number] Director Of Operations: Jim Henning [facility], Phone: [phone] Chalrie Barry MD LAB BLOOD ORDERABLES Final Res ult Performing Organization Address City/[facility]/ZIP Co de Phone Number [facility] [address] [place] [address], [facility] 1 * Phosphorus (03/20/2025 1:58 PM EST) Pathologist [facility] Phosphorus 2.7 2.4 - 4.9 mg/dL [facility] 1 Blood Venous blood specimen / Unknown 03/20/2025 1:58 PM EST 03/20/2025 Narrative [facility] - 03/20/2025 4:15 PM EST Performed at: [address] [place] [id number] Director Of Operations: iJm Henning [facility], Phone: [phone] Charlie Barry MD LAB BLOOD ORDERABLES Final Res ult [facility] [address] [place] [address], [facility] 1 * Magnesium (03/20/2025 1:58 PM EST) Only the most recent of2 resultswithin the time period is included. Magnesium 1.8 1.6 - 2.6 mg/dL [facility] 1 Blood Venous blood specimen / Unknown 03/20/2025 1:58 PM EST 03/20/2025 Narrative [facility] - 03/20/2025 4:15 PM EST Performed at: [address] [place] [id number] Director Of Operations: Jim Henning [facility], Phone: [phone] us Charlie Barry MD LAB BLOOD ORDERABLES Final Res ult Performing Organization Address [facility] Co de Phone Number [facility] [address] [place] [address], [facility] 1 * (ABNORMAL) Lactate dehydrogenase (03/20/2025 1:58 PM EST) LDH 263(H) 110 - 250 IU/L [facility] 1 Blood Venous blood specimen / Unknown 03/20/2025 1:58 PM EST 03/20/2025 Narrative [facility] - 03/20/2025 4:15 PM EST Performed at: [address] [place] [id number] Director Of Operations: Jim Henning [facility], Phone: [phone] us Charlie Barry MD LAB BLOOD ORDERABLES Final Res ult Performing Organization Address [facility] de Phone Number [facility] [address] [place] [address], [facility] 1 * (ABNORMAL) CK (aka CPK) (03/20/2025 1:58 PM EST) CK Total 27(L) 41 - 331 U/L [facility] 1 Blood Venous blood specimen / Unknown 03/20/2025 1:58 PM EST 03/20/2025 Narrative [facility] - 03/21/2025 7:45 AM EST Performed at: [address] [id number] Director Of Operations: Iram Zambrano MD, Phone: [phone] Charlie Barry MD LAB BLOOD ORDERABLES Final Res ult Performing Organization Address City/[facility]/ZIP Co de Phone Number [facility] [address] [place] [address], [facility] 1 * Hepatic function panel (03/20/2025 1:58 PM EST) Bilirubin, Direct 0.1 0.0 - 0.5 mg/dL [facility] 1 Blood Venous blood specimen / Unknown 03/20/2025 1:58 PM EST 03/20/2025 Narrative [facility] - 03/20/2025 4:15 PM EST Performed at: [address] [place] [id number] Director Of Operations: Jim Henning [facility], Phone: [phone] Charlie Barry MD LAB BLOOD ORDERABLES Final Res ult Performing Organization Address [facility] Co de Phone Number [facility] [address] [place] [address], [facility] 1 * Lipid panel (03/20/2025 1:58 [...] - 03/21/2025 6:15 AM EST Performed at: [address] [id number] Director Of Operations: Iram Zambrano MD, Phone: [phone] Charlie Barry MD LAB BLOOD ORDERABLES Final Res ult Performing Organization Address City/[facility]/ZIP Co de Phone Number [facility] [address] [place] [address], [place] [facility] 1 * Comprehensive metabolic panel (03/20/2025 1:58 PM EST) Only the most recent of2 resultswithin the time period is included. [facility] Glucose 138 70 - 139 mg/dL [facility] [...] 4:15 PM EST Performed at: 01 - [address] [id number] Director Of Operations: Jim Henning [facility], Phone: [phone] us Charlie Barry MD LAB BLOOD ORDERABLES Final Res ult [facility] [address] [place] [address], [facility] 1 * POCT glucose meter (02/28/2025 11:45 AM EST) Only the most recent of2 resultswithin the time period is included. POCT Glucose 134 70 - 139 mg/dL 02/28/2025 11:46 AM EST [facility] Blood Blood specimen / Unknown 02/28/2025 11:45 AM EST 02/28/2025 11:46 AM EST Loren Hall MD LAB POINT OF CARE TE ST DOCKED DEVICE UNSOLICITED RESULTS Final Result [facility] [address] [place] [address], * MD AN ELECTIVE SUPRAGLOTTIC AIRWAY (02/28/2025 10:00 AM EST) Narrative Wesly Barry MD - 02/28/2025 10:00 AM EST Wesly Barry MD 02/28/2025 10:09 AM Airway Date/Time: 02/28/2025 10:00 AM Location: OR Urgency: Elective Difficult Airway: No Induction Technique: Intravenous RSI: No Cricoid pressure: No ETT In Situ?: No Anesthesiologist: Vonda Forte MD Resident/SET RIDER: Wesly Barry MD Performed by: Resident/SET RIDER Vonda Forte MD Indications for Airway Management: Anesthesia Preoxygenated: Yes Patient Position: Sniffing Mask Ventilation: Easy mask Final Airway Type: LMA LMA Size: 4 Vonda Forte MD Number of Attempts at Approach: 1 Vonda Forte MD ANESTHESIA ORDERABLES Maral l Result * CORONARY ANGIOGRAPHY, ENDOMYOCARDIAL BIOPSY (01/03/2025 12:45 PM EDT) 01/03/2025 12:1 1 PM EDT Narrative [facility] HEMO MERGE HEMO - 01/03/2025 5:21 PM EDT [facility] Adult Catheterization Lab [address] [place] [address] Right and Left Diagnostic Cardiac Catheterization and [...] + + + + RA pressure a/v 0/ (-1) (m) + + + + RV [...] Procedure Note Luisa Yang MD - 01/03/2025 [facility] Adult Catheterization Lab [address] [place] [address] Right and Left Diagnostic Cardiac Catheterization and Biopsy Report Patient: Margarita Avila, Dena Sky Physician: Dena Mitchell Attending Luisa Richter Physician: [...] + + + PA pressure s/d 23/09 () (m) + + + + PA wedge a/v (m) 09/09 () + + + + Arterial pressure 103/56 (75) s/d (m) + + + + Aortic pressure -11/12 (-) s/d (m) + + + + PVR [...] CV CARDIAC CATH PROCEDURES Maral l Result [facility] HEMFrederick QUIJANO HEMO * Tissue Pathology (01/03/2025 11:20 AM EDT) Case Report Surgical Pathology Case: [id number] Authorizing Provider: Dena Mitchell NP Collected: 01/03/2025 1120 Ordering Location: [facility] Received: 01/03/2025 1320 Cardiac [facility] Pathologist: Ramos Kay MD Specimen: Heart, R ventricle Bx post Tx 01/04/2025 4:36 PM EDT [facility] ANATOMIC PATHOLOGY [facility] Final Diagnosis [...] show appropriate reactivity. 01/04/2025 4:36 PM EDT [facility] ANAT[facility] LAB at 1636 EDT Gross Description A. Received in formalin, labeled with the patient's name, Avial Avila, Matthew Donny , medical record number, and R ventricle bx post tx , are three fragments of tomlin-red soft tissue, 0.4 x 0.2 x 0.2 cm, 0.3 x 0.3 x 0.2 cm, and 0.3 x 0.2 x 0.2 cm. The specimen is submitted in toto in A1. Grossed by DANY Wong PA([facility])RICARDO on 01/03/25 at 1:26 PM. 01/04/2025 4:36 PM EDT [facility] ANATOM[facility] Disclaimer The [...] show appropriate reactivity. 01/04/2025 4:36 PM EDT [facility] ANAT[facility] Tissue Heart structure / Unknown 01/03/2025 11:20 AM EDT 01/03/2025 1:20 PM EDT Dena Mitchell NP LAB PATHOLOGY ORDERABLES Final Result [facility] ANATOMIC PATHOLOGY LAB [address] [place] [address], * (ABNORMAL) CBC w/ Differential (01/03/2025 11:10 AM EDT) WBC 2.7(L) 4.0 - 11.0 K/uL 01/03/2025 11:41 AM EDT [facility] RBC 3.82(L) 4.20 - 5.90 M/uL 01/03/2025 11:41 AM EDT [facility] Hemoglobin 11.3(L) 13.0 - 17.5 g/dL 01/03/2025 11:41 AM EDT [facility] Hematocrit 33.5(L) 37.0 - 53.0 % 01/03/2025 11:41 AM EDT [facility] MCV 87.7 80.0 - 100.0 fL 01/03/2025 11:41 AM EDT [facility] MCH 29.6 26.0 - 34.0 pg 01/03/2025 11:41 AM EDT [facility] MCHC 33.7 31.0 - 37.0 g/dL 01/03/2025 11:41 AM EDT [facility] RDW-CV 12.8 11.5 - 14.5 % 01/03/2025 11:41 AM EDT [facility] RDW-SD 40.4 35.0 - 51.0 fL 01/03/2025 11:41 AM EDT [facility] Platelets 122(L) 150 - 400 K/uL 01/03/2025 11:41 AM T [facility] MPV 9.7 9.1 - 12.4 fL 01/03/2025 11:41 AM [facility] Neutrophil % 65.5 % 01/03/2025 11:41 AM [facility] Lymphocyte % 20.0 % 01/03/2025 11:41 AM [facility] Monocytes % 5.6 % 01/03/2025 11:41 AM [facility] Eosinophils % 5.2 % 01/03/2025 11:41 AM [facility] Basophils % 0.4 % 01/03/2025 11:41 AM [facility] Immature Granulocytes % 3.3 % 01/03/2025 11:41 AM [facility] NRBC % 0.0 0.0 - 0.0 % 01/03/2025 11:41 AM [facility] Neutrophils Absolute 1.77 1.50 - 7.95 K/uL 01/03/2025 11:41 AM [facility] Lymphocytes Absolute 0.54(L) 0.70 - 4.00 K/uL 01/03/2025 11:41 AM [facility] Monocytes Absolute 0.15(L) 0.38 - 0.83 K/uL 01/03/2025 11:41 AM [facility] Eosinophils Absolute 0.14 0.00 - 0.50 K/uL 01/03/2025 11:41 AM [facility] Basophils Absolute 0.01 0.00 - 0.22 K/uL 01/03/2025 11:41 AM [facility] Immature Granulocytes Absolute 0.09 0.00 - 0.10 K/uL 01/03/2025 11:41 AM [facility] NRBC Absolute 0.00 0.00 - 2.00 K/uL 01/03/2025 11:41 AM [facility] Blood Venous blood specimen / Unknown Venipuncture / Unknown 01/03/2025 11:10 AM EDT 01/03/2025 11:34 AM EDT Zeina Maradiaga MD LAB BLOOD ORDERABLES Final Result Performing Organization Address [facility] de Phone Number [facility] [address] [place] [address], [place] * Protime/INR (01/03/2025 11:10 AM EDT) Protime 12.0 9.7 - 14.0 seconds 01/03/2025 11:55 AM EDT [facility] INR 1.04 See Comment 01/03/2025 11:55 AM EDT [facility] Comment: NORMAL PATIENTS NOT ON ANTICOAGULANTS: INR: 0.9-1.3 RECOMMENDED INR WITH WARFARIN/COUMADIN THERAPY: INR: 2.00-3.00 Deep vein thrombosis Atrial Fibrillation Tissue Prosthetic Valve Stroke Prevention INR:2.50-3.50 Mechanical Prosthetic Valve and Recurrent Systemic Embolism Blood Venous blood specimen / Unknown Venipuncture / Unknown 01/03/2025 11:10 AM EDT 01/03/2025 11:34 AM EDT Zeina Maradiaga MD LAB BLOOD ORDERABLES Final Result Performing Organization Address [facility] de Phone Number [facility] [address] [place] [address], [place] * CT HIGH RESOLUTION CHEST WO [...] GENDER: Male ORD PHYS: DAYSI FINK LOCATION: [facility] 12/28/2024 10:46 AM EDT [id number] (CT HIGH RESOLUTION CHEST WO CONTRAST) [id number] Provided History: Pulmonary sarcoidosis and tracheal stenosis [...] GENDER: Male ORD PHYS: DAYSI FINK LOCATION: [facility] 12/28/2024 10:46 AM EDT [id number] (CT HIGH RESOLUTION CHEST WO CONTRAST) [id number] Provided History: Pulmonary sarcoidosis and tracheal stenosis [...] - 12/20/2024 4:05 AM EDT Performed at: [address] [place] [id number] Director Of Operations: Iram Zambrano MD, Phone: [phone] Juan Hutchinson MD LAB BLOOD ORDERABLES Final Resu lt [facility] [address] [place] [address], [facility] 1 * Hepatitis C Virus RNA, Quantitative, RT-PCR (01/26/2024 10:30 AM EDT) HCV RNA by RT-PCR [facility] 01/27/2024 2:18 PM EDT [facility] Comment:Not Detected HCV RNA Viral Load, log [facility] 01/27/2024 2:18 PM EDT [facility] Comment:Not Detected HCV RNA Viral Load, Interp Not Detected Not Detected [facility] 01/27/2024 2:18 PM EDT [facility] Blood Venous blood specimen / Unknown Venipuncture / Unknown 01/26/2024 10:30 AM EDT 01/26/2024 11:13 AM EDT Narrative [facility] - 01/27/2024 2:18 PM EDT This test was performed using the [employer] m HCV assay, performed on the [employer] m instrument. The lower limit of quantification is 12 IU/mL. Chi Barton MD LAB BLOOD ORDERABLES Final Resu lt [facility] [address] [place] [address], * Albumin, Urine, Random (Microalbumin Random, Including Creatinine) (11/26/2023 1:50 PM EDT) Albumin, urine (INT/EXT) <1.2 mg/dL 11/26/2023 2:44 PM EDT [facility] Creatinine, urine, random (INT/EXT) 47.40 24.00 - 392.00 mg/dL 11/26/2023 2:44 PM EDT [facility] Albumin/Creatini ne ratio 11/26/2023 2:44 PM EDT [facility] Comment:Unable to calculate due to below or above Analytical Measurement Range. Urine Urine specimen / Unknown Non-blood Collection / Unknown 11/26/2023 1:50 PM EDT 11/26/2023 1:50 PM EDT us Pedro Kline MD LAB URINE ORDERABLES Maral garcia Result [facility] [address] [place] [address], [place] from Last 3 Months or Most Recently Relevant to Health Maintenance Additional Health Concerns Active Problems Noted Date Diagnosed Date Autogenerated Problem 03/01/2025 Insurance MEDICARE PART A AND B [employer] SAFETY NET [facility] MEDEX MEDICARE PART A AND B [facility] NET Advance Directives Documents on File Type Date Recorded Patient Registered Nurse Supervisor Expl anation Advance Directives and Living Will 11/25/2023 Lloyd Ahmadi Health Care Proxy * Full Code (Latest Code Status on File) Date Activated Date Inactivated Comments 11/24/2023 12:16 AM 01/20/2024 1:17 PM Healthcare Agents on File Name Relationship Healthcare Agent Relationship Communication Aleisha Ahmadi Spouse Health Care Agent [email or web address] 24. Zomazz Lloyd Mandel Son First Alte rnate Health Care Agent Care Teams Events Manager Relationship Specialty Start Date End Date Name, MD Yoandy [address] [place] [address] PCP - General Environmental Health Technologist 11/12/23 Glenn Herman MD [address] [place] [address] Referring Physician Cardiology 11/12/23 Edward Handley, coach cleaner [facility] 12/31/23 Jennie Michelle, PharmD [address] [place] [address] Pharmacist Pharmacy 01/27/24 Juan Hutchinson MD [address] [place] [address] Attending Physician Cardiology 12/19/24 Charlie Barry MD [address] [place] [address] Consulting Physician Advanced Heart Failure and Transplant Cardiology 03/20/25
--- OUTSIDE RECORDS SUMMARY | 2025-03-23 14:27 | XMS_ITS | Encounter Summary ---
Author Organization [facility] Address 800 [facility] [address] [place] [address] Care Team Providers Care Machine Sweeper Brush Maker Name Role Phone Glenn Herman MD Unavailable Yoandy Tillman MD Primary Care Provider [phone] Edward Handley [facility] Unavailable Unavailable Jennie Michelle PharmD Unavailable [phone] Juan Hutchinson MD Unavailable [phone] Charlie Barry MD Unavailable [phone] Encounter Details Date Type Department Care [...] Description 05/15/2025 1:00 PM EST Office Visit [facility] Dermatology [address] [place] [address] Nelida Ayala MD 800 [place] [address] 06/22/2025 10:00 AM EDT Appointment [facility] Cardiac Echo 800 [facility] [address] [place] [phone] 06/22/2025 11:30 AM EDT Follow-Up [facility] Cardiac Subspecialty [address] [address] Sharon Savage NP 800 [place] [address] 07/06/2025 1:00 PM EDT Office Visit [facility] Lung Nodule [address] [address] Alfred Mckeon MD 860 [place] [address] 07/06/2025 1:30 PM EDT Office Visit [facility] Lung Nodule [address] [phone] Yoav Portillo Lung Nod Pul 07/12/2025 10:30 AM EDT Appointment [facility] Pulmonary Function Lab 800 [facility] 5th Floor Room 511 [place] [address] 07/12/2025 11:30 AM EDT Office Visit [facility] Pulmonary [address] 3rd [place] [address] Daysi Fink MD 800 [facility] [address] [place] [address] documented as of this encounter Goals Goal Patient Goal Type Associated Problems Recent Progress Patient-Stated? Author Autogenerat ed Goal Care Plan Autogenerated Problem No Cindy Aj documented as of this encounter Visit Diagnoses Not on filedocumented in this encounter Additional Health Concerns Active Problems Noted Date Diagnosed Date Autogenerated Problem 03/01/2025 documented as of this encounter Care Teams Machine Sweeper Brush Maker Relationship Specialty Start Date End Date Name, MD Yoandy [address] [place] [address] PCP - General Facility Examiner 11/12/23 Glenn Herman MD [address] [place] [address] Referring Physician Cardiology 11/12/23 Edward Handley, dredging inspector Welt Trimming Machine Operator Pharmacy 12/31/23 Jennie Michelle, RadhaD [address] [place] [address] Pharmacist Pharmacy 01/27/24 Juan Hutchinson MD [address] [place] [address] [address] [place] [address] Attending Physician Cardiology 12/19/24 Charlie Barry MD [address] [place] [address] Consulting Physician Advanced Heart Failure and Transplant Cardiology 03/20/25 documented as of this encounter
--- OUTSIDE RECORDS SUMMARY | 2025-03-23 14:27 | XMS_ITS | Encounter Summary ---
Author Organization [facility] Address 800 [facility] [address] [place] [address] Care Team Providers Care Sound Controller Name Role Phone Glenn Herman MD Unavailable [phone] Name, Yoandy LUGO Primary Care Provider Edward Handley [facility] Unavailable Unavailable Jennie Michelle PharmD Unavailable [phone] Juan Hutchinson MD Unavailable [phone] Charlie Barry MD Unavailable [phone] Encounter Details Date Type Department Care Team (Late st Contact Info) Description 12/29/2023 Lab Requisition [facility] HLA Lab 800 [place] [address] Pedro Kline MD [address] [place], [place] [id number] Cardiomyopathy, unspecified (Multi-HCC) Social History Tobacco Use [...] 1:00 PM EST Office Visit [facility] Dermatology 260 [place] [address] Nelida Ayala MD 800 [place] [address] 06/22/2025 10:00 AM EDT Appointment [facility] Cardiac Echo 800 [facility] [address] [place] [phone] 06/22/2025 11:30 AM EDT Follow-Up [facility] Cardiac Subspecialty 860 [facility] 6th [place] [address] Sharon Savage NP 800 [place] [address] 07/06/2025 1:00 PM EDT Office Visit [facility] Lung Nodule 800 [facility] [address] [place] [address] Alfred Mckeon MD [address] [place] [address] 07/06/2025 1:30 PM EDT Office Visit [facility] Lung Nodule 800 [facility] 4th [place] [address] Yoav Lugo Lung Nod Pul 07/12/2025 10:30 AM EDT Appointment [facility] Pulmonary Function Lab 800 [facility] [address] [facility] 5th Floor Room [address] [place] [address] 07/12/2025 11:30 AM EDT Office Visit [facility] Pulmonary 260 [facility] [address] [facility] 3rd [place] [address] Daysi Fink MD 800 [facility] [address] [place] [phone] documented as of this encounter Procedures Procedure Name Priority Date/Time Associated Diagnosis Comments HLA CONSULTATION Routine 12/26/2023 11:5 6 PM EDT Cardiomyopathy, unspecified (Multi-HCC) documented in this encounter Results * HLA Consultation (12/26/2023 11:56 PM EDT) PDF Attached See PDF Document 01/02/2024 12:57 PM EDT [facility] Blood Venous blood specimen / Unknown 12/26/2023 11:56 PM EDT 12/29/2023 10:28 PM EDT Pedro Kline MD LAB BLOOD ORDERABLES Maral l Result [facility] HLA LAB [address] [place] [address], documented in this encounter Visit Diagnoses Diagnosis Cardiomyopathy, unspecified Cytomegalovirus infection, unspecified cytomegaloviral infection type documented in this encounter Care Teams Sound Controller Relationship Specialty Start Date End Date Name, MD Yoandy [address] [place] [address] PCP - General Manager Of Security 11/12/23 Glenn Herman MD [address] [place] [address] Referring Physician Cardiology 11/12/23 Edward Handley, tire service technician [facility] 12/31/23 Jennie Michelle, PharmD [address] [place] [address] Pharmacist Pharmacy 01/27/24 Juan Hutchinson MD [address] [place] [address] Attending Physician Cardiology 12/19/24 Charlie Barry MD [address] [place] [address] Consulting Physician Advanced Heart Failure and Transplant Cardiology 03/20/25 documented as of this encounter
--- OUTSIDE RECORDS SUMMARY | 2025-03-23 14:27 | XMS_ITS | Encounter Summary ---
Author Organization [facility] Address 800 [facility], [address] [place] [address] Care Team Providers Care Marketing Operations Consultant Name Role Phone Glenn Herman MD Unavailable [phone] Yoandy Tillman MD Primary Care Provider [phone] Edward Handley [facility] Unavailable Unavailable Jennie Michelle PharmD Unavailable [phone] Juan Hutchinson MD Unavailable [phone] Charlie Barry MD Unavailable [phone] Reason for Visit * Reason Onset Date Comments Appointment 12/19/2024 Follow-up 12/19/2024 Encounter Details Date Type Department Care Team (Late st Contact Info) Description 12/19/2024 Telephone [facility] Cardiac Subspecialty 860 [facility] 6th [place] [address] Kailyn Hess Appointment; Follow-up Social History Tobacco Use Types Packs/Day Years [...] Assessment Author No 11/26/2023 11:17 AM Bethany aPdilla RN documented as of this encounter Mental Status * Because of a physical, mental, or emotional condition, do you have serious difficulty concentrating, remembering, or making decisions? Answer Entry Date Author Yes 11/26/2023 11:17 AM Bethany Padilla RN documented in this encounter Miscellaneous Notes * Telephone Encounter - Kailyn Hess - 03/23/2025 12:00 PM EST Cylinder Handler resource used for communication assistance was a hospital approved boxing instructor and a telephone boxing instructor. Cylinder Handler was present during discussion. Cylinder Handler services utilized: Language Greenhouse Transplanter Name Matheus Cylinder Handler ID # [id number] Spoke with boxing instructor and called patient's regarding the appointment for June 22 with TTE and then visit with Sharon Hussein for her . Will also mail appointment letter/reminder. They also have another insurance and provided the number for registration and they will call as soon as possible/before the appointment. * Telephone Encounter - Kailyn Hess - 12/19/2024 1:19 PM EDT Cylinder Handler resource used for communication assistance was a hospital approved boxing instructor and a telephone boxing instructor. Cylinder Handler was present during discussion. Cylinder Handler services utilized: Language Greenhouse Transplanter Name Maren Cylinder Handler ID # [id number] Spoke with the patient's and used boxing instructor services. Patient confirmed appointment for March [address] Barry and will send mail reminder. documented in this encounter Plan of Treatment Upcoming Encounters Date Type Department Care Team (Late st Contact Info) Description 05/15/2025 1:00 PM EST Office Visit [facility] Dermatology 260 [place] [address] Nelida Ayala MD 800 [place] [address] 06/22/2025 10:00 AM EDT Appointment [facility] Cardiac Echo 800 [facility] [address] [place] [address] 06/22/2025 11:30 AM EDT Follow-Up [facility] Cardiac Subspecialty 860 [facility] 6th [place] [address] Sharon Savage NP 800 [place] [address] 07/06/2025 1:00 PM EDT Office Visit [facility] Lung Nodule 800 [facility] 4th [place] [address] Alfred Mckeon MD 860 [place] [address] 07/06/2025 1:30 PM EDT Office Visit [facility] Lung Nodule 800 [facility] 4th [place] [address] Yoav Portillo Lung Nod Pul 07/12/2025 10:30 AM EDT Appointment [facility] Pulmonary Function Lab 800 [facility] 5th Floor Room [address] [place] [address] 07/12/2025 11:30 AM EDT Office Visit [facility] Pulmonary 260 [facility] [address] [facility] 3rd [place] [phone] Daysi Fink MD [address] [facility] [address] [place] [address] documented as of this encounter Goals Goal Patient Goal Type Associated Problems Recent Progress Patient-Stated? Author Autogenerat ed Goal Care Plan Autogenerated Problem No Cindy Aj documented as of this encounter Visit Diagnoses Diagnosis Other cytomegaloviral diseases Cytomegalovirus infection, unspecified cytomegaloviral infection type documented in this encounter Additional Health Concerns Active Problems Noted Date Diagnosed Date Autogenerated Problem 03/01/2025 documented as of this encounter Care Teams Marketing Operations Consultant Relationship Specialty Start Date End Date Name, MD Yoandy [address] [place] [address] PCP - General Post Tronic Machine Operator 11/12/23 Glenn Herman MD [address] [place] [address] Referring Physician Cardiology 11/12/23 Edward Handley, timber management assistant Library Services Assistant Pharmacy 12/31/23 Jennie Michelle, PharmD [address] [place] [address] Pharmacist Pharmacy 01/27/24 Juan Hutchinson MD [address] [place] [address] Attending Physician Cardiology 12/19/24 Charlie Barry MD [address] [place] [address] Consulting Physician Advanced Heart Failure and Transplant Cardiology 03/20/25 documented as of this encounter
--- OUTSIDE RECORDS SUMMARY | 2025-03-23 14:27 | XMS_ITS | Data Portability ---
Author Organization [place] [facility] Address 100 [facility] 100 [place] [address] Assessment Encounter Date Assessment Date Assessment LastModified by Organization Details LastModified Time 02/25/2024 02/25/2024 68-year-old male presents today for evaluation of stridor and tracheal stenosis. Symptoms seem to worsen about 3 weeks ago following dilation in November. Of note he had heart transplant about 2 months ago at [facility]. Flexible laryngoscopy did not reveal [...] heart transplant. Thank you. 2023 Tarsha wagner [facility] Pulmonary Medicine, [address] [facility], [place], [address], 09:56:34 Procedures None recorded. Surgeries None recorded. Imaging None recorded. Medication Orders None recorded. Patient TargetsNo targets recorded. Patient InstructionsNo instructions recorded. Reason for Referral Photoengraving Etcher Referral for T gaby stenosis following tracheostomy Established patient of Dr Alegre. Needs follow up appt/repeat endoscopy. Patient has recent heart transplant. Thank you. Referring Physician: Sandip Regalado, Otolaryngology, Encounter Date: 02/25/2024 Problems Name Problem SNOMED Code Status Onset Date Resolution Date Notes Provider Name and Address Organization Details Recorded Time Tracheal stenosis following tracheostomy 58970668 Active 2023 SANDIP REGALADO MD 100 [facility],[place] [address], [place], [address], [facility] 4 12:10:02 Sensorineural hearing loss of bilateral ears 767432642 Active 2024 BORA GRAY, [facility] 100 [facility],[place] [address], [place], [address], [facility] 5 16:02:33 Problem Notes None recorded. Procedures Surgical History Date Name Laterality Status Provider Name and Address Organization Details Recorded Time 04/15/19 25 Comp Audio with Tymps - 59890 & 36721 completed BORA GRAY [address],[place] [address], [place], [address], [facility] 04/15/2024 16:02:37 02/25/20 24 Fiberoptic Laryngoscopy (Comprehensive) completed SANDIP REGALADO MD [address] [place] [address],[address], [address], [facility] 02/25/2024 12:11:38 Imaging Results None recorded. Procedure [...] Not Available Not Available Comfort EZ Pen Mcgrann 32 gauge x 5/32 active Not Available [...] Updated DateTime 04/15/2024 172.72 cm 20.2 kg/m2 23911.79 g Manda Ly [place] [facility] 04/15/2024 16:28:34 Date Recorded Body height Body mass index (BMI) Body weight Provider Name and Address Organization Details Last Updated DateTime 02/25/2024 172.72 cm 26.8 kg/m2 77489.26 g Manda Ly [facility] 02/25/2024 11:47:14 Social History None recorded. Functional Status None recorded. Mental Status None recorded. Family History Nothing Reported. Medical History Condition Response Diabetes Y Heart Problems Y Hyperlipidemia Y Past Encounters Encounter ID Performer Location Encounter Start Date Encounter Closed Date Diagnosis/Indication Diagnosis SNOMED-CT Code Diagnosis ICD10 Code Diagnosis IMO Codes Diagnosis Note [id number] SANDIP REGALADO MD [facility] [address] [address] 02/25/2024 11:26:24 02/25/2024 12:26:39 Tracheal stenosis following tracheostomy 62615100 J95.03 [id number] SANDIP REGALADO MD [facility] [address] [address] 04/15/2024 15:37:29 04/15/2024 16:57:22 Sensorineural hearing loss of bilateral ears 234195521 H90.3 68 yo M with a history [...] and there was likely some irritation here. [id number] JACQUE LUGO [facility] [address] [address] 04/15/2024 15:59:22 04/18/2024 07:41:17 Sensorineural hearing loss of bilateral ears 033653580 H90.3 Right Ear:Normal hearing through 1.5K Hz [...] Name 06/15/2024 2 [place] [id number] Matthew L Avila [id number] Matthew Donny Avila Avila 06/15/2024 1 [place] [employer] Matthew Avila Avila [id number] Matthew Donny Avila Avila 06/15/2024 2 MEDICAID-[place] [facility] Matthew L Avila Avila [id number] Matthew Donny Avila Avila Notes Date Note Type Note Provider Name and Address Organization Details Recorded Time 02/25/2024 text/html ROS as noted in the HPI 68 yo M here for tracheal stenosis.Wheezing, had had 5 bronchoscopies. Scarring in the trachea following tracheostomy due to intensive care after heart attack, last year 2022 in [place], was on vacation. Coughing a lot. Had [...] corrected for lung volume SANDIP REGALADO MD [address] [place] [address],[address], [address], [facility] 02/26/2024 10:58:54 04/15/2024 text/html Starting feeling numb on the side of the ear right after his surgeryTTP over jaw Has seen Dr. Walton. SANDIP REGALADO MD [address] [place] [address],[address], [address], [facility] 04/18/2024 07:25:33
--- OUTSIDE RECORDS SUMMARY | 2025-03-23 14:27 | XMS_ITS | Encounter Summary ---
Author Organization [employer] Address 75 [facility] 7t [place] [address] Care Team Providers Care Coverstitch Binder Name Role Phone Name, Yoandy LUGO Primary Care Provider [phone] Name, Yoandy LUGO Primary Care Provider [phone] Reason for Visit * Reason Onset Date Comments FYI 10/01/2022 Encounter Details Date Type Department Care Team ([facility] st Contact Info) Description 10/01/2022 Telephone [facility] MEDICINE 230 [place], [place] [phone] Name, MD Yoandy [address] [place] [address] FYI Social History Tobacco Use Types Packs/Day [...] 10/01/2022 3:26 PM EDT Tc from spouse [facility] facility that patient during their vacation in [place] had two Heart Attacks and is currently hospitalized since 09/15/2022 at the [facility] documented in this encounter Plan of Treatment Upcoming Encounters Date Type Department Care Team (Late st Contact Info) Description 05/23/2025 9:00 AM EST Office Visit [facility] MEDICINE [address] [place] [address] Name, MD Yoandy [address] [place] [address] documented as of this encounter Visit Diagnoses Not on filedocumented in this encounter Care Teams Coverstitch Binder Relationship Specialty Start Date End Date Name, MD Yoandy [address] [place] [address] PCP - General Family Medicine 01/18/21 06/04/23 Name, MD Yoandy [address] [place] [address] PCP - General Internal Medicine 10/19/23 [facility] 01/19/24 documented as of this encounter
--- OUTSIDE RECORDS SUMMARY | 2025-03-23 14:27 | XMS_ITS | Clinical Summary ---
Author Organization [employer] [facility] Address [facility] [email or web address] [address] [place] [address] Phone Care Team Providers Care Auto Winder Name Role Phone Name, Yoandy LUGO Primary Care Provider [phone] Social History Tobacco Use Types Packs/Day Years [...] file Insurance MEDICARE PART A & B [facility] [address] [place], [place] [id number] MEDICARE PART A [place] [id number] [address] [place], [place] [address]B MEDICARE PART A & B [facility] FULL Member Subscriber Plan / Payer (Ef fective 2023-Present) Name:Matthew Toro Relation to Subscriber:Self Name:Matthew Toro Payer ID:Not on file Group ID:Not on file Type:Medicaid Address: [address] MEDICARE PART A & B [place] SAFETY NET FULL MEDICARE PART A & B [facility] SAFETY NET FULL Member Subscriber Plan / Payer (Ef fective 2023-Present) Name:Matthew Toro Relation to Subscriber:Self Name:Avila Margarita Matthew Donny Payer ID:Not on file Group ID:Not on file Type:Medicaid Address: [address] [place] [id number] [employer] FULL B Care Teams Auto Winder Relationship Specialty Start Date End Date Name, MD Yoandy [address] [place] [address] PCP - General Internal Medicine 11/02/23 Additional Source Comments The information contained in this document represents components of the legal health record. It is not the complete legal health record[facility]
--- OUTSIDE RECORDS SUMMARY | 2025-03-23 14:27 | XMS_ITS ---
Author Organization [facility] Address [address] [facility], [address] [place] [address] Care Team Providers Care Bolt Loader Name Role Phone Glenn Herman MD Unavailable [phone] Yoandy Tillman MD Primary Care Provider [phone] Edward Handley dishwasher busser Unavailable Unavailable Jennie Michelle PharmD Unavailable Juan Hutchinson MD Unavailable [phone] Charlie Barry MD Unavailable [phone] Transplant Episode Heart Recipient [facility] ([place], [place]) - [facility] Organ Received: Heart Transplanted on 12/28/2023 Marked as Active Follow-up on 12/28/2023 Heart CoordinatorZackery Paulino RN Phone: N/A Fax: N/A Email: N/A [place] Organ Diagnosis Organ Primary Contributory Heart Dilated [...] Role Phone Fax Email Zackery Paulino RN Freight Handler N/A N/A N/A Glenn Herman MD Referring Physician [phone] N/A Izaiah Watt MD Foreign Language Teacher [phone] N/A Events Post-Transplant Pre-Transplant Admitted: 11/23/2023 Referred: 11/09/2023 Transplanted: 12/28/2023 Evaluation began: 4 Discharged: 01/14/2024 Committee: 12/21/2023 Center waitlisted: 4 Appointments (02/21/2025 - 04/23/2025) When With Visit Type Description 03/20/2025 Cardiology - Carmen Barry Follow Up Sp ecialty Appointment Heart transplant recipient (Primary Dx); Mixed hyperlipidemia; Immunosuppressed status; Cytomegalovirus infection, unspecified cytomegaloviral infection type; Tracheal stenosis; Sarcoidosis; History of seizure
--- OUTSIDE RECORDS SUMMARY | 2025-03-23 14:27 | XMS_ITS | Encounter Summary ---
Author Organization [facility] Address [address] [facility] [address] [place] [address] Care Team Providers Care Stallion Manager Name Role Phone Glenn Herman MD Unavailable Name, Yoandy LUGO Primary Care Provider [phone] [facility] Unavailable Unavailable Jennie Michelle PharmD Unavailable Juan Hutchinson MD Unavailable [phone] Charlie Barry MD Unavailable [phone] Encounter Details Date Type Department Care Team (Late st Contact Info) Description 12/25/2023 Lab Requisition [facility] HLA Lab [address] [place] [address] Pedro Kline MD [address] [place], [place] [phone] Cardiomyopathy, unspecified (Multi-HCC) Social History Tobacco Use [...] Description 05/15/2025 1:00 PM EST Office Visit [facility] Dermatology [address] [place] [address] Nelida Ayala MD 800 [place] [address] 06/22/2025 10:00 AM EDT Appointment [facility] [address] [facility] [address] [place] [phone] 06/22/2025 11:30 AM EDT Follow-Up [facility] Cardiac Subspecialty [address] [facility] 6th [place] [phone] Sharon Savage NP [address] [place] [phone] 07/06/2025 1:00 PM EDT Office Visit [facility] Lung Nodule [address] [facility] [address] [place] [phone] Alfred Mckeon MD [address] [place] [address] 07/06/2025 1:30 PM EDT Office Visit [facility] Lung Nodule [address] [facility] [address] [facility] 4th [place] [address] Yoav Lugo Lung Nod Pul 07/12/2025 10:30 AM EDT Appointment [facility] Pulmonary Function Lab [address] [facility] [address] [facility] 5th Floor Room [address] [place] [address] 07/12/2025 11:30 AM EDT Office Visit [facility] [address] [facility] 3rd [place] [address] Daysi Fink MD [address] [facility] [address] [place] [phone] documented as of this encounter Procedures Procedure Name Priority Date/Time Associated Diagnosis Comments HLA CONSULTATION Routine 12/25/2023 8:41 AM EDT Cardiomyopathy, unspecified (Multi-HCC) documented in this encounter Results * HLA Consultation (12/25/2023 8:41 AM EDT) PDF Attached See PDF Document 12/26/2023 3:15 PM EDT [facility] Blood Venous blood specimen / Unknown 12/25/2023 8:41 AM EDT 12/25/2023 7:39 PM EDT Pedro Kline MD LAB BLOOD ORDERABLES Maral l Result [facility] HLA LAB [address] [place] [address], documented in this encounter Visit Diagnoses Diagnosis Cardiomyopathy, unspecified Cytomegalovirus infection, unspecified cytomegaloviral infection type documented in this encounter Care Teams Stallion Manager Relationship Specialty Start Date End Date Name, MD Yoandy [address] [place] [address] PCP - General Diesel Dragline Operator 11/12/23 Glenn Herman MD [address] [place] [address] [place] [address] Referring Physician Cardiology 11/12/23 Edward Handley, Juan Survey Data Technician Pharmacy 12/31/23 Jennie Michelle, PharmD [address] [place] [address] Pharmacist Pharmacy 01/27/24 Juan Hutchinson MD [address] [place] [address] Attending Physician Cardiology 12/19/24 Charlie Barry MD [address] [place] [address] Consulting Physician Advanced Heart Failure and Transplant Cardiology 03/20/25 documented as of this encounter
--- OUTSIDE RECORDS SUMMARY | 2025-03-23 14:28 | XMS_ITS | Encounter Summary ---
Author Organization [employer] Address [address] [facility] [address] 7t [place] [address] Care Team Providers Care Dinkey Engine Mechanic Name Role Phone Name, Yoandy LUGO Primary Care Provider [phone] Name, Yoandy LUGO Primary Care Provider [phone] Encounter Details Date Type Department Care Team (Late st Contact Info) Description 03/21/2022 Orders Only [facility] MEDICINE [address] [place] [address] Coby Flores RN Social History Tobacco Use [...] Description 05/23/2025 9:00 AM EST Office Visit [facility] MEDICINE [address] [place] [address] Name, MD Yoandy [address] [place] [address] documented as of this encounter Procedures Procedure Name Priority Date/Time Associated Diagnosis Comments B TYPE NATRIURETIC PEPTIDE (BNP) Routine 06/27/2022 9:53 AM EDT HEPATIC FUNCTION PANEL Routine 06/27/2022 9:53 AM EDT LIPID PANEL, STANDARD Routine 06/27/2022 9:53 AM EDT BASIC METABOLIC PANEL Routine 06/27/2022 9:53 AM EDT documented in this encounter Results * Lipid Panel, Standard (06/27/2022 9:53 AM EDT) Triglycerides 84 mg/dL [facility] Comment:Desirable Triglyceri de: less than 150 mg/dLBorderline High Triglyceride 150-199 mg/dLHigh Triglyceride: 200-499 mg/dLVery High Triglyceride: greater than or equal to 5OO mg/dL Cholesterol 154 mg/dL [facility] Comment:Desirable Cholestero l: less than 200 mg/dLBorderline High Cholesterol: 200-239 mg/dLHigh Cholesterol: greater than 239 mg/dL LDL Cholesterol Calculated 104 mg/dl [facility] Comment:Desirable LDL: less than 100 mg/dLNear Optimal/Above Optimal LDL: 110- 129 mg/dLBorderline High LDL: 130-159 mg/dLHigh LDL: 160-189 mg/dLVery High LDL: greater than or equal to 190 mg/dL HDL Cholesterol 34 mg/dL [facility] Comment:Desirable HDL: great er than 40 mg/dL Note: This HDL assay may give artificially low results in patients with liver disease. 06/27/2022 9:53 AM EDT 06/27/2022 9:53 AM EDT [facility] External Provider LAB BLO OD ORDERABLES Final Result [facility] [address] [place] [address] [phone] * (ABNORMAL) Basic Metabolic Panel (06/27/2022 9:53 AM EDT) Sodium 143 135 - 145 mmol/L [facility] Potassium 4.6 3.3 - 5.1 mmol/L [facility] Chloride 108 96 - 108 mmol/L [facility] Carbon Dioxide 26 22 - 29 mmol/L [facility] Anion Gap 14 12 - 20 [facility] Urea Nitrogen (BUN) 13 9 - 16 mg/dL [facility] Creatinine, Serum 1.02 0.5 - 1.4 mg/dL [facility] Estimated Glomerular Filt Rate >60 [facility] Comment:NOTE: For -Am erican individuals, multiply the result by 1.210.Chronic Kidney Disease: Estimated GFR < 60 mL/min/1.96e7Gandxf Kidney Disease: Estimated GFR < 15 mL/min/1.73m2 Glucose 141(H) 60 - 115 mg/dL [facility] Calcium 9.4 8.4 - 10.2 mg/dL [facility] 06/27/2022 9:53 AM EDT 06/27/2022 9:53 AM EDT [facility] External Provider LAB BLO OD ORDERABLES Final Result Performing Organization Address [facility] Co de Phone Number [facility] [address] [place] [phone] * Hepatic Function Panel (06/27/2022 9:53 AM EDT) Bilirubin, Total 1.0 0.0 - 1.0 mg/dL [facility] Bilirubin, Direct 0.3 0.0 - 0.5 mg/dL [facility] Aspartate Amino Transferase 19 5 - 37 U/L [facility] Alanine Aminotransferase 24 0 - 40 U/L [facility] Total Protein 6.7 6.5 - 8.0 g/dL [facility] Albumin Level 4.2 3.5 - 5.0 g/dL [facility] Alkaline Phosphatase 61 39 - 117 U/L [facility] 06/27/2022 9:53 AM EDT 06/27/2022 9:53 AM EDT [facility] External Provider LAB BLO OD ORDERABLES Final Result Performing Organization Address [facility] de Phone Number [facility] [address] [place] [phone] * (ABNORMAL) B Type Natriuretic Peptide (BNP) (06/27/2022 9:53 AM EDT) B Type Natriuretic Peptide 332(H) <100 pg/mL [facility] Comment:For those patients w ho are being treated with Natrecor(nesiritide, recombinant BNP), BNP testing should beperformed at least two hours post treatment in order toensure that only endogenous levels of BNP are detected. 06/27/2022 9:53 AM EDT 06/27/2022 9:53 AM EDT us [facility] External Provider LAB BLO OD ORDERABLES Final Result [facility] [address] [place] [phone] documented in this encounter Visit Diagnoses Not on filedocumented in this encounter Care Teams Dinkey Engine Mechanic Relationship Specialty Start Date End Date NameYoandy MD [address] [place] [address] PCP - General Family Medicine 01/18/21 06/04/23 Name, MD Yoandy [address] [place] [address] PCP - General Internal Medicine 10/19/23 [facility] 01/19/24 documented as of this encounter
== END 2025-03-23 11:42 | disposition home or self-care (01) ==
LOC: HO.HPODS 11:03
PROVIDERS: PCP Internal Medicine Geriatric Medicine; Visit Provider Student in an Organized Health Care Education/Training Program
DX: E11.8 Type 2 diabetes mellitus with unspecified complications (principal); E11.40 Type 2 diabetes mellitus with diabetic neuropathy, unspecified; L60.3 Nail dystrophy; B35.1 Tinea unguium; I83.93 Asymptomatic varicose veins of bilateral lower extremities
CPT/HCPCS: 11721; 99214; G9226

== ENCOUNTER → 2025-03-23 11:03 | Outpatient (BNVA) | payer MEDICARE, SELFPAY | PROVIDERS: PCP Internal Medicine Geriatric Medicine; Visit Provider Student in an Organized Health Care Education/Training Program | DX: L60.3 Nail dystrophy (principal); L60.9 Nail disorder, unspecified; B35.1 Tinea unguium; E11.8 Type 2 diabetes mellitus with unspecified complications; E11.40 Type 2 diabetes mellitus with diabetic neuropathy, unspecified; I83.93 Asymptomatic varicose veins of bilateral lower extremities | CPT/HCPCS: 11721; 99212 ==

== ENCOUNTER 2025-03-27 12:27 | Outpatient (REF) | payer MEDICARE, SELFPAY ==
[2025-03-27 13:12] LABS: Hematocrit 32.4 % (42.0-52.0); Hemoglobin 10.7 g/dl (14.0-18.0); Mean Corpuscular HGB Conc 33.0 g/dl (31.0-36.0); Mean Corpuscular Hemoglobin 27.9 pg (27.0-33.0); Mean Corpuscular Volume 84.6 fL (80.0-98.0); NRBC Abs Auto 0.000 X10*3/uL (0.0-0.012); NRBC Pct Auto 0.0 /100WBC (0.0-0.2); Platelet Count 117 X10*3/uL (160-400); Red Blood Count 3.83 X10*6/uL (4.60-5.80); White Blood Count 3.4 X10*3/uL (4.8-10.8)
[2025-03-27 13:40] LABS: Alanine Aminotransferase 12 U/L (0-40); Albumin Level 4.2 g/dL (3.5-5.0); Alkaline Phosphatase 51 U/L (39-117); Anion Gap 11 (12-20); Aspartate Amino Transferase 12 U/L (5-37); Blood Urea Nitrogen 13 mg/dL (9-16); Calcium 9.1 mg/dL (8.4-10.2); Carbon Dioxide 28 mmol/L (22-29); Chloride 109 mmol/L (96-108); Estimated Glomerular Filt Rate > 60; Potassium 4.1 mmol/L (3.3-5.1); Sodium 144 mmol/L (135-145); Total Protein 6.2 g/dL (6.5-8.0)
[2025-03-27 13:49] LABS: Band Neutrophils Percent 8 % (3-5); Eosinophils Percent Manual 1 % (0-4); Lymphocytes Absolute Manual 0.4 X10*3/uL (1.2-4.9); Lymphocytes Percent Manual 11 % (20-40); Metamyelocytes Absolute 0.2 X10*3/uL; Metamyelocytes Percent 5 %; Monocytes Absolute Manual 0.1 X10*3/uL (0.1-1.2); Monocytes Percent Manual 4 % (2-11); Neutrophils Absolute Manual 2.7 X10*3/uL (2.0-8.3); Neutrophils Percent Manual 71 % (45-73)
[2025-03-27 13:50] LABS: Acanthocytes 1+ (0-2) /OIF; Burr Cells 1+ (0-2) /OIF; Large Platelet PRESENT; Ovalocytes 1+ (5-14) /OIF; RBC Morphology NOTED
--- OUTSIDE RECORDS SUMMARY | 2025-03-27 15:42 | XMS_ITS | Encounter Summary ---
Author Organization [employer] Address [address] [facility] 7t [place] [address] Care Team Providers Care Turkey Farmer Name Role Phone Name, Yoandy LUGO Primary Care Provider [phone] Name, Yoandy LUGO Primary Care Provider [phone] Reason for Visit * Reason Onset Date Comments FYI 10/01/2022 Encounter Details Date Type Department Care Team ([facility] st Contact Info) Description 10/01/2022 Telephone [facility] MEDICINE [address] [place], [place] [phone] Name, MD Yoandy [address] [place] [address] FYI Social History Tobacco Use Types Packs/Day [...] 10/01/2022 3:26 PM EDT Tc from spouse [facility] facility that patient during their vacation in [place] had two Heart Attacks and is currently hospitalized since 09/15/2022 at the [facility] documented in this encounter Plan of Treatment Upcoming Encounters Date Type Department Care Team (Late st Contact Info) Description 05/23/2025 9:00 AM EST Office Visit [facility] MEDICINE [address] [place] [address] Name, MD Yoandy [address] [place] [address] documented as of this encounter Visit Diagnoses Not on filedocumented in this encounter Care Teams Turkey Farmer Relationship Specialty Start Date End Date Name, MD Yoandy [address] [place] [address] PCP - General Family Medicine 01/18/21 06/04/23 Name, MD Yoandy [address] [place] [address] PCP - General Internal Medicine 10/19/23 [facility] 01/19/24 documented as of this encounter
--- OUTSIDE RECORDS SUMMARY | 2025-03-27 15:42 | XMS_ITS | Encounter Summary ---
Author Organization [facility] Address [address] [place] [address] 7t [place] [address] Care Team Providers Care Edge Setter Name Role Phone Name, Yoandy LUGO Primary Care Provider [phone] Name, Yoandy LUGO Primary Care Provider [phone] Encounter Details Date Type Department Care Team (Late st Contact Info) Description 03/21/2022 Orders Only [facility] MEDICINE [address] [place] [phone] Coby Flores RN Social History Tobacco Use [...] Description 05/23/2025 9:00 AM EST Office Visit [facility] MEDICINE [address] [place] [address] [phone] Name, MD Yoandy [address] [place] [address] documented as of this encounter Procedures Procedure Name Priority Date/Time Associated Diagnosis Comments B TYPE NATRIURETIC PEPTIDE (BNP) Routine 06/27/2022 9:53 AM EDT HEPATIC FUNCTION PANEL Routine 06/27/2022 9:53 AM EDT LIPID PANEL, STANDARD Routine 06/27/2022 9:53 AM EDT BASIC METABOLIC PANEL Routine 06/27/2022 9:53 AM EDT documented in this encounter Results * Lipid Panel, Standard (06/27/2022 9:53 AM EDT) Triglycerides 84 mg/dL [facility] Comment:Desirable Triglyceri de: less than [...] to 190 mg/dL HDL Cholesterol 34 mg/dL [facility] Comment:Desirable HDL: great er than 40 mg/dL Note: This HDL assay may give artificially low results in patients with liver disease. 06/27/2022 9:53 AM EDT 06/27/2022 9:53 AM EDT [facility] External Provider LAB BLO OD ORDERABLES Final Result [facility] [address] [place] [phone] * (ABNORMAL) Basic Metabolic Panel (06/27/2022 9:53 AM EDT) Sodium 143 135 - 145 mmol/L [facility] Potassium 4.6 3.3 - 5.1 mmol/L [facility] Chloride 108 96 - 108 mmol/L [facility] Carbon Dioxide 26 22 - 29 mmol/L [facility] Anion Gap 14 12 - 20 [facility] Urea Nitrogen (BUN) 13 9 - 16 mg/dL [facility] Creatinine, Serum 1.02 0.5 - 1.4 mg/dL [facility] Estimated Glomerular Filt Rate >60 [facility] Comment:NOTE: For -Am erican individuals, multiply the result by 1.210.Chronic Kidney Disease: Estimated GFR < 60 mL/min/1.93a2Ykhhuh Kidney Disease: Estimated GFR < 15 mL/min/1.73m2 Glucose 141(H) 60 - 115 mg/dL [facility] Calcium 9.4 8.4 - 10.2 mg/dL [facility] 06/27/2022 9:53 AM EDT 06/27/2022 9:53 AM EDT us [facility] External Provider LAB BLO OD ORDERABLES Final Result Performing Organization Address City/State/[facility] Co de Phone Number [facility] [address] [place] [phone] * Hepatic Function Panel (06/27/2022 9:53 AM EDT) Bilirubin, Total 1.0 0.0 - 1.0 mg/dL [facility] Bilirubin, Direct 0.3 0.0 - 0.5 mg/dL [facility] Aspartate Amino Transferase 19 5 - 37 U/L [facility] Alanine Aminotransferase 24 0 - 40 U/L [facility] Total Protein 6.7 6.5 - 8.0 g/dL [facility] Albumin Level 4.2 3.5 - 5.0 g/dL [facility] Alkaline Phosphatase 61 39 - 117 U/L [facility] 06/27/2022 9:53 AM EDT 06/27/2022 9:53 AM EDT [facility] External Provider LAB BLO OD ORDERABLES Final Result Performing Organization Address [facility] de Phone Number [facility] [address] [place] [phone] * (ABNORMAL) B Type Natriuretic Peptide (BNP) (06/27/2022 9:53 AM EDT) B Type Natriuretic Peptide 332(H) <100 pg/mL [facility] Comment:For those patients w ho are being treated with Natrecor(nesiritide, recombinant BNP), BNP testing should beperformed at least two hours post treatment in order toensure that only endogenous levels of BNP are detected. 06/27/2022 9:53 AM EDT 06/27/2022 9:53 AM EDT [facility] External Provider LAB BLO OD ORDERABLES Final Result Performing Organization Address [facility] de Phone Number [facility] [address] [place] [phone] documented in this encounter Visit Diagnoses Not on filedocumented in this encounter Care Teams Edge Setter Relationship Specialty Start Date End Date NameYoandy MD [address] [place] [address] PCP - General Family Medicine 01/18/21 06/04/23 NameYoandy MD [address] [place] [address] PCP - General Internal Medicine 10/19/23 [facility] 01/19/24 documented as of this encounter
--- OUTSIDE RECORDS SUMMARY | 2025-03-27 15:42 | XMS_ITS | Clinical Summary ---
Author Organization [facility] Address [facility] [address] [place] [address] Phone Care Team Providers Care Field Trainer Name Role Phone Name, Yoandy LUGO Primary Care Provider [phone] Social History Tobacco Use Types Packs/Day Years [...] file Insurance MEDICARE PART A & B [facility] [address] [place], [place] [address]B MEDICARE PART A & [place] [id number] [facility] [address] [place], [place] [address] MEDICARE PART A & B [facility] F[facility] Member Subscriber Plan / Payer (Ef fective 2023-Present) Name:Matthew Toro Relation to Subscriber:Self Name:Matthew Toro Payer ID:Not on file Group ID:Not on file Type:Medicaid Address: [address] MEDICARE PART A & B [employer] SAFETY NET FULL MEDICARE PART A & B [facility] SAFETY NET FULL Member Subscriber Plan / Payer (Ef fective 2023-Present) Name:Matthew Toro Relation to Subscriber:Self Name:Avila Margarita Matthew Donny Payer ID:Not on file Group ID:Not on file Type:Medicaid Address: [address] [place] [id number] [facility] FULL B Care Teams Field Trainer Relationship Specialty Start Date End Date Name, MD Yoandy [address] [place] [address] PCP - General Internal Medicine 11/02/23 Additional Source Comments The information contained in this document represents components of the legal health record. It is not the complete legal health record.[facility]
--- OUTSIDE RECORDS SUMMARY | 2025-03-27 15:42 | XMS_ITS | Data Portability ---
Author Organization [place] [facility] Address [address] [facility] [address] [place] [address] Assessment Encounter Date Assessment Date Assessment LastModified by Organization Details LastModified Time 02/25/2024 02/25/2024 68-year-old male presents today for evaluation of stridor and tracheal stenosis. Symptoms seem to worsen about 3 weeks ago following dilation in November. Of note he had heart transplant about 2 months ago at [facility]. Flexible laryngoscopy did not reveal any [...] heart transplant. Thank you. 2023 Tarsha wagner [facility] Pulmonary Medicine, [address] [facility], [place], [address], 09:56:34 Procedures None recorded. Surgeries None recorded. Imaging None recorded. Medication Orders None recorded. Patient TargetsNo targets recorded. Patient InstructionsNo instructions recorded. Reason for Referral Application Systems Engineer Referral for T gaby stenosis following tracheostomy Established patient of Dr Alegre. Needs follow up appt/repeat endoscopy. Patient has recent heart transplant. Thank you. Referring Physician: Sandip Regalado, Otolaryngology, Encounter Date: 02/25/2024 Problems Name Problem SNOMED Code Status Onset Date Resolution Date Notes Provider Name and Address Organization Details Recorded Time Tracheal stenosis following tracheostomy 35642176 Active 2023 SANDIP REGALADO MD [address] [facility],[place] [address], [place], [phone], [facility] - [facility] 4 12:10:02 Sensorineural hearing loss of bilateral ears 468297379 Active 2024 BORA GRAY, [facility] [address] [facility],[place] [address], [place], [phone], [facility] 5 16:02:33 Problem Notes None recorded. Procedures Surgical History Date Name Laterality Status Provider Name and Address Organization Details Recorded Time 04/15/19 25 Comp Audio with Tymps - 95642 & 89785 completed BORA GRAY [address],[place] [address], [place], [phone], [facility] 04/15/2024 16:02:37 02/25/20 24 Fiberoptic Laryngoscopy (Comprehensive) completed SANDIP REGALADO MD [address] [place] [address],[address], [address], [facility] 02/25/2024 12:11:38 Imaging Results None recorded. [...] Not Available Not Available Comfort EZ Pen Yale 32 gauge x 5/32 active Not Available [...] Updated DateTime 04/15/2024 172.72 cm 20.2 kg/m2 64001.79 g Manda Ly [place] [facility] 04/15/2024 16:28:34 Date Recorded Body height Body mass index (BMI) Body weight Provider Name and Address Organization Details Last Updated DateTime 02/25/2024 172.72 cm 26.8 kg/m2 72943.26 g Manda Ly [facility] 02/25/2024 11:47:14 Social History None recorded. Functional Status None recorded. Mental Status None recorded. Family History Nothing Reported. Medical History Condition Response Diabetes Y Heart Problems Y Hyperlipidemia Y Past Encounters Encounter ID Performer Location Encounter Start Date Encounter Closed Date Diagnosis/Indication Diagnosis SNOMED-CT Code Diagnosis ICD10 Code Diagnosis IMO Codes Diagnosis Note [id number] SANDIP REGALADO MD [facility] [address] [address] 02/25/2024 11:26:24 02/25/2024 12:26:39 Tracheal stenosis following tracheostomy 06361919 J95.03 [id number] SANDIP REGALADO MD [facility] [address] [address] 04/15/2024 15:37:29 04/15/2024 16:57:22 Sensorineural hearing loss of bilateral ears 760399814 H90.3 68 yo M with a history [...] and there was likely some irritation here. [id number] JACQUE LUGO [facility] [address] [address] 04/15/2024 15:59:22 04/18/2024 07:41:17 Sensorineural hearing loss of bilateral ears 759313595 H90.3 Right Ear:Normal hearing through 1.5K Hz [...] Name 06/15/2024 2 [place] [id number] Matthew L Avila [id number] Matthew Donny Avila Avila 06/15/2024 1 [place] [employer] Matthew Avila Avila [id number] Matthew Donny Avila Avila 06/15/2024 2 [place] [facility] Matthew L Avila Avila [id number] Matthew Donny Avila Avila Notes Date Note Type Note Provider Name and Address Organization Details Recorded Time 02/25/2024 text/html ROS as noted in the HPI 68 yo M here for tracheal stenosis.Wheezing, had had 5 bronchoscopies. Scarring in the trachea following tracheostomy due to intensive care after heart attack, last year 2022 in [place], was on vacation. Coughing a lot. Had [...] for lung volume SANDIP REGALADO MD [address] [place] [address],[address], [phone], [facility] - [facility] 02/26/2024 10:58:54 04/15/2024 text/html Starting feeling numb on the side of the ear right after his surgeryTTP over jaw Has seen Dr. Walton. SANDIP REGALADO MD [address] [place] [address],[address], [phone], [facility] 04/18/2024 07:25:33
--- OUTSIDE RECORDS SUMMARY | 2025-03-27 15:42 | XMS_ITS | Clinical Summary ---
Author Organization [employer] Address [address] [facility] [address] [place] [address] Care Team Providers Care Survey Engineer Name Role Phone Name, Yoandy LUGO Primary Care Provider [phone] Allergies Active Allergy Reactions Criticality Noted Date [...] bedtime. 4 Active Sharps Container (BD Sharps Set Rider) [facility] [place] For disposal of needles and lancets 4 [...] follow-up 10/06/2024 Pulmonary nodules 07/27/2024 Cytomegalovirus infection ([facility] [place] 06/30/2024 Chronic cough 06/28/2024 Fever 06/28/2024 Conjunctivitis of right eye 05/04/2024 Immunosuppressed status 05/04/2024 Night sweats 05/04/2024 Preventative health care 05/04/2024 Disease due to severe acute respiratory syndrome coronavirus 2 (SARS-CoV-2) 04/19/2024 Overview (07/27/2024): Problem added by Discern Expert Sensorineural hearing loss (SNHL) of both ears 0 04/15/2024 Observed seizure-like activity ([facility] [place] 024 Heart transplant recipient ([facility] [place] 02/05/2024 Overview (02/05/2024): #s/p OHT 12/28/23 #s/p impella explant #s/p ICD explant #hx NICM Seizure disorder ([facility] [place]) 02/05/2024 Immunocompromised 02/05/2024 Sarcoidosis [...] 's report Asked patient to call his Oracle Ebs Developer regarding his increased weight/swelling for further recommendations. Dysphagia 02/08/2023 Positive colorectal cancer screening using Colog uard test 02/04/2023 Overview (11/03/2023): Negative Colonoscopy 06/2023: urgical Pathology Exam - Order: [id number] Component 4 mo ago Case Report Surgicals Case: [id number] Authorizing Provider: Donny Encarnacion Collected: 2023 0843 MD Eugene Ordering Location: [facility] GI Lab Received: 2023 1011 Pathologist: [...] IHC, [place] [address]. Resulting Agency [facility] Specimen Collected: 06/19/23 08:43 Performed by: [facility] Last Resulted: 06/23/23 17:27 [...] were answered. Coronary artery disease invo lving [place] coronary artery of [place] heart without angina pectoris 11/14/2022 Overview (11/02/2023): Last Assessment & Plan: - nonobstructive disease - continue medical therapy with aspirin, statin, BB - denies angina Stridor 11/13/2022 Overview (11/02/2023): Last Assessment & Plan: Improved after last dilation in April 2023. Mild stridor noted today in clinic Discussed with his primary filament maker Dr. Sanches and will work to get [...] Ventricular tachycardia, unspecified (CMS/HCC) 0 04/06/2022 Other it disaster recovery manager (current) drug therapy 3 Type 2 diabetes [...] [facility] 03/2022. Follows at [facility] [place] Systolic dysfunction 03/13/2022 History of bradycardia 03/13/2022 Family history of prostate cancer 03/13/2022 Complete heart block (CMS/HCC) 04/06/2020 Overview (11/02/2023): Added automatically from request for surgery [id number] Last Assessment & Plan: History of biventricular pacemaker that was upgraded to OUTSIDE SALES REPRESENTATIVE defibrillator in September. Device interrogated today [...] statin -No need for ischemic evaluation intermediate (current) use of o ral hypoglycemic drugs 04/06/2022 11/03/2023 Other specified diseases of upper respiratory tract 04/06/2022 11/03/2023 Presence of automatic (impla ntable) cardiac defibrillator 04/06/2022 02/05/2024 Cardiac pacemaker in situ 03/13/2022 Uncontrolled type 2 diabetes mellitus with hyperglycemia 04/06/2020 02/05/2024 Overview (11/02/2023): Last Assessment & Plan: Encounters Date Type Department Care Team Description 02/23/2025 Telephone [facility] [address] [place] [phone] Name, MD Yoandy Durable Medical Equipment (Glucerna) 02/20/2025 10:00 AM EST Office Visit [facility] [address] [place] [address] Name, MD Yoandy Type 2 diabetes mellitus with other circulatory complication, without long-term current use of insulin (HCC) (Primary Dx); Poor appetite; Weight loss; Food insecurity; Encounter for vaccination; Encounter for immunization; Heart transplant recipient (CMS/HCC) (HCC); History of ND (myocardial infarction) 02/20/2025 Patient Outreach [facility] [address] [place] [address] Name, MD Yoandy Care Coordination (CHW outreach [...] 05/23/2025 9:00 AM EST Office Visit [facility] [address] [place] [address] Name, MD Yoandy [address] [place] [address] Health Maintenance Due Date Last Done Comments [...] Routine 03/22/2025 10:50 AM EST POCT GLUCOSE (CPT-88928) Routine 02/20/2025 9:52 AM EST Type 2 diabetes mellitus with other circulatory complication, without long-term current use of insulin ([facility]) GLUCOSE, WHOLE BLOOD Routine 01/27/2025 3:15 PM EDT GROSS AND MICROSCOPIC LEVEL 3 Routine 01/19/2025 10:42 AM EDT GLUCOSE, WHOLE BLOOD Routine 12/30/2024 3:47 PM EDT POCT GLYCATED HEMOGLOBIN, TOTAL Routine 07/27/2024 10:59 AM EDT Type 2 diabetes mellitus with other circulatory complication, without long-term current use of insulin ([facility]) ALBUMIN, RANDOM URINE W/CREATININE Routine 04/14/2024 11:04 AM EST Type 2 diabetes mellitus with other circulatory complication, without long-term current use of insulin ([facility]) LIPID PANEL, STANDARD Routine 06/27/2022 9:53 AM EDT from Last 3 Months or Most Recently Relevant to Health Maintenance Results * C-Peptide (03/22/2025 10:50 AM EST) [facility] C-Peptide 0.80 0.80 - 3.85 ng/mL [facility] Comment:THIS TEST WAS PERFOR MED AT:[facility] [place] [phone] STINSON MD 03/22/2025 10:5 0 AM EST 03/22/2025 10:50 AM EST us Generic External Data Provider LAB BLOOD ORDERAB LES Final Result [facility] [address] [place] [phone] * (ABNORMAL) Glucose (03/22/2025 10:50 AM EST) Pathologist [facility] Glucose Fasting 116(H) 60 - 99 mg/dL [facility] Comment:A fasting glucose fr om 100-125 mg/dl is considered impaired(pre-diabetes). 03/22/2025 10:5 0 AM EST 03/22/2025 10:50 AM EST us Generic External Data Provider LAB BLOOD ORDERAB LES Final Result Performing Organization Address [facility] Co de Phone Number [facility] [address] [place] [phone] * (ABNORMAL) POCT Glucose (02/20/2025 9:52 AM EST) Glucose Blood, POC 220(A) 60 - 200 mg/dL QC Media Lot # [id number] Lot# Expiration Date Blood Capillary blood specimen / Unknown 02/20/2025 9:52 AM EST us Yoandyeloy Tillman MD POINT OF CARE TEST ENTER/EDIT OR DERABLES Final Result * Glucose, Whole Blood (01/27/2025 3:15 PM EDT) Only the most recent of2 resultswithin the time period is included. Glucose, Whole Blood 106 60 - 115 mg/dL [facility] Comment:METER #: [id number] 0Testing performed in the Endocrinology Department [address] , [address], [facility]. 01/27/2025 3:15 PM EDT 01/27/2025 3:23 PM EDT us Generic External Data Provider LAB BLOOD ORDERAB LES Final Result Performing Organization Address [facility] Co de Phone Number [facility] [address] [place] [phone] * Gross and Microscopic Level 3 (01/19/2025 10:42 AM EDT) 01/19/2025 10:4 2 AM EDT 01/20/2025 9:10 AM EDT [facility] - 01/23/2025 2:18 PM EDT ----- ------- Name: Matthew Toro Age/Sex: 69/M : 1955 Unit#: [id number] Attend Dr: Tamiko Ceballos DPM Re01/19/25 Status: [facility] REF Location: [facility] Disch: ----- ------- SPEC : [id number] RECD: 01/20/25 STATUS: DON HUGHESAdonay NUM: [id number] TIM: 01/19/251042 [facility] DR: Tamiko Ceballos DPAnderson ENTERED: 01/20/25 [...] developed and their performance characteristics determined by [facility]. They have not been cleared or approved by the U.S. Food and Drug Administration (FDA). However, the FDA has determined that such clearance or approval is not necessary. This laboratory is certified under the Clinical Laboratory Improvement Amendments of 1988 (CLIA) as qualified to perform high complexity clinical laboratory testing. Copies To: Yoandy Tillman MD [address] [address] CONTINUED ON NEXT PAGE ----- ------- Name: Matthew Toro Age/Sex: 69/M : 1955 Unit#: [id number] Attend Dr: Tamiko Ceballos DPM Re01/19/25 Status: DEP REF Location: [facility] Disch: ----- ------- SPEC : [id number] RECD: 01/20/25 STATUS: DON PHAN NUM: [id number] TIM: 01/19/[address] [facility] DR: Tamiko Ceballos DPM ENTERED: 01/20/25 SP TYPE: Surgical OTHR DR: Yoandy Tillman MD ORDERED: Gross Micro L3 Copies To: (Continued) Tamiko Ceballos [facility] [address] [address] [email or web address] ----- ------- Signed (signature on file) Shruti Miranda 01/23/25 1418 ----- ------- END OF REPORT Generic External Data Provider LAB CYTOLOGY ORDE RABLES Final Result [facility] [address] [place] [phone] * POCT HGB A1C (07/27/2024 10:59 AM EDT) Hemoglobin A1C 5.7 4.0 - 6.0 % QC Media Lot # [id number] Lot# Expiration Date Blood 07/27/2024 10:5 9 AM EDT Yoandy Tillman MD POINT OF CARE TEST ENTER/EDIT OR DERABLES Final Result * Albumin, Random Urine W/Creatinine (04/14/2024 11:04 AM EST) Creatinine, Urine 109.08 mg/dL [facility] Microalbumin Urine 6.0 mg/L [facility] Microalbum Creatinine Ratio Ur 5.5 <30 ug/mg cr [facility] Comment:Albumin/Creatinine R atio Reference Ranges: Normal: < 30 ug/mg creatinine Microalbuminuria: 30 - 300 ug/mg creatinineClinical Albuminuria: > 300 ug/mg creatinine Urine (Urine, Random) 04/14/2024 11:04 AM EST 04/14/2024 1:04 PM EST Yoandy Tillman MD LAB URINE ORDERABLES Final Resul t [facility] [address] [place] [phone] * Lipid Panel, Standard (06/27/2022 9:53 AM EDT) Triglycerides 84 mg/dL [facility] Comment:Desirable Triglyceri de: less than 150 mg/dLBorderline High Triglyceride 150-199 mg/dLHigh Triglyceride: 200-499 mg/dLVery High Triglyceride: greater than or equal to 5OO mg/dL Cholesterol 154 mg/dL [facility] Comment:Desirable Cholestero l: less than 200 mg/dLBorderline High Cholesterol: 200-239 mg/dLHigh Cholesterol: greater than 239 mg/dL LDL Cholesterol Calculated 104 mg/dl [facility] Comment:Desirable LDL: less than 100 mg/dLNear Optimal/Above Optimal LDL: 110- 129 mg/dLBorderline High LDL: 130-159 mg/dLHigh LDL: 160-189 mg/dLVery High LDL: greater than or equal to 190 mg/dL HDL Cholesterol 34 mg/dL [facility] Comment:Desirable HDL: great er than 40 mg/dL Note: This HDL assay may give artificially low results in patients with liver disease. 06/27/2022 9:53 AM EDT 06/27/2022 9:53 AM EDT us [facility] External Provider LAB BLO OD ORDERABLES Final Result [facility] [address] [place] [phone] from Last 3 Months or Most Recently Relevant to Health Maintenance Additional Health Concerns Active Problems Noted Date Diagnosed Date Help patients manage their type 2 diabetes 02/16 Patient has chronic kidney disease 02/16/2025 Patient has chronic kidney disease 02/20/2025 Patient has chronic kidney disease 02/23/2025 Insurance MEDICARE [facility] STANDARD [facility] MEDEX MEDICARE SUPPLEMENT * Guarantor: Avila Avila, Matthew Donny Account Type Relation to Patient Date of Phone Billing Address Personal/Family Self [address] [place], [place] [address] [place] [phone] * Guarantor: Avila Avila, Matthew Donny Account Type Relation to Patient Date of Phone Billing Address Personal/Family Self [address] [place], [place] [address] [place] [phone] [place] [phone] Care Teams Survey Engineer Relationship Specialty Start Date End Date Name, MD Yoandy [address] [place] [phone] PCP - General Internal Medicine 10/19/23 [facility] 01/19/24
[2025-03-28 05:32] LABS: Tacrolimus Prograf 6.6 mcg/L
== END 2025-03-27 12:28 | disposition home or self-care (01) ==
LOC: HO.LAB 12:27
PROVIDERS: PCP Internal Medicine Geriatric Medicine; Visit Provider Student in an Organized Health Care Education/Training Program
DX: Z94.1 Heart transplant status (principal)
CPT/HCPCS: 36415; 80053; 80197; 85007; 85025; 85027